=== PATIENT | female | born 1970 | race Caucasian/White ===

== ENCOUNTER 2017-10-19 18:09 | Emergency (ER) | payer BC ==
[2017-10-19 18:55] LABS: Absolute Lymphocytes (CBC) 3.6 K/uL (0.7-4.9); Absolute Monocytes 0.6 K/uL (0.1-1.3); Absolute Neutrophil 4.9 K/uL (1.8-8.0); Basophils % 0.3 % (0-1.3); Eosinophils % 3.3 % (0-4.4); Hematocrit 43.8 % (36.0-45.0); Lymphocytes % 37.6 % (15.3-44.8); MCH 27.8 pg (27.0-35.0); MCV 82.2 fL (80-100); MPV 10.1 fL (7.6-11.3); Monocytes % 6.8 % (3.3-12.3); RBC Red Blood Cell Count 5.32 M/uL (3.86-4.86)
[2017-10-19 18:59] LABS: Protime INR 1.04
[2017-10-19 19:05] LABS: Bicarbonate 28 mEq/L (21-31); Glucose Level 185 mg/dL (65-120); Potassium 3.7 mEq/L (3.6-5.0); Sodium Level 133 mEq/L (135-145)
[2017-10-19 19:11] LABS: ALT/SGPT 68 IU/L (10-60); AST/SGOT 47 IU/L (10-42); Albumin 4.2 g/dL (3.2-5.5); Alkaline Phosphatase 60 IU/L (42-121); BUN Blood Urea Nitrogen 10 mg/dL (6-20); Bilirubin Direct 0.2 mg/dL (0-0.2); Bilirubin Total 1.1 mg/dL (0.3-1.2); Creatine Phosphokinase 91 IU/L (22-269); Magnesium 1.7 mg/dL (1.8-2.5); Protein, Total 7.5 g/dL (6.0-8.3)
[2017-10-19 19:15] LABS: CKMB Creatine Kinase MB 1.4 ng/ml (0.3-4.0)
--- NOTE | 2017-10-19 19:21 | RAD REPORT ---
EXAM DESCRIPTION: RAD - Chest Single View - 10/19/2017 6:53 pm CLINICAL HISTORY: Chest pain. COMPARISON: 12/18/2016 FINDINGS: Portable technique limits examination quality. The lungs are grossly clear. The heart is normal in size. No displaced fractures. IMPRESSION: No acute intrathoracic process suspected.
[2017-10-19 19:22] LABS: Urine Blood NEGATIVE (NEG); Urine Glucose NEGATIVE (NEG); Urine Protein NEGATIVE (NEG); Urine Specific Gravity <1.005 (1.005-1.030)
[2017-10-19] MEDS ORDERED: FENTANYL CITR 100 MCG/2 ML ONE (19:46)
[2017-10-19] MEDS ORDERED: MAGNESIUM SULFATE 1 gm IVPB 1 GM/100 ML BAG IV ONE (19:46)
[2017-10-19] MEDS ORDERED: ONDANSETRON 4 MG/2 ML VIAL ONE (19:46)
--- NOTE | 2017-10-19 21:21 | EDPHYS ---
Physician Documentation [facility] Name: Chantal Stout Age: 47 yrs Sex: Female : 1970 Arrival Date: 10/19/2017 Time: 18:11 Bed 15 Private MD: ED Physician Kirk Escudero HPI: 10/19 19:47 This 47 yrs old Female presents to ER via Ambulatory with complaints of Chest jr8 Pain. 19:47 The patient or guardian reports chest pain that is located primarily in the substernal jr8 area. Onset: acutely, today. The pain radiates to the right arm. Associated signs and symptoms: The patient has no apparent associated signs or symptoms, Pertinent positives: dizziness, nausea. The chest pain is described as a pressure. Duration: The patient or guardian reports a single episode. Modifying factors: The symptoms are alleviated by nothing. the symptoms are aggravated by nothing. Severity of pain: At its worst the pain was moderate in the emergency department the pain is unchanged. The patient has not experienced similar symptoms in the past. The patient has not recently seen a physician. Patient stated that she was getting out of her chair when she had sudden sharp pain to chest that radiated down arm. Shortly after felt slightly dizzy and had headache. Denied weakness . Historical: - Allergies: 18:17 Bactrim; hb 18:17 Cephalexin; hb 18:17 Codeine; hb 18:17 Iodine; hb 18:17 Levaquin; hb - Home Meds: 18:17 levothyroxine 88 mcg tab once daily [Active]; metformin 750 mg Oral Tb24 twice a day hb [Active]; ProAir HFA 90 mcg/actuation inhalation HFAA 2 puffs every 4-6 hours [Active]; valsartan-hydrochlorothiazide 80-12.5 mg Oral tab 1 tab [Active]; - PMHx: 18:17 Diabetes - NIDDM; Hypertension; Asthma; Hypothyroidism; hb - PSHx: 18:17 Tonsillectomy; hb - Immunization history:: Adult Immunizations up to date. - Social history:: Smoking status: Patient uses tobacco products, smokes one-half pack cigarettes per day. ROS: 19:47 Eyes: Negative for injury, pain, redness, and discharge, ENT: Negative for injury, jr8 pain, and discharge, Neck: Negative for injury, pain, and swelling, Respiratory: Negative for shortness of breath, cough, wheezing, and pleuritic chest pain, Abdomen/GI: Negative for abdominal pain, vomiting, diarrhea, and constipation, Back: Negative for injury and pain, MS/Extremity: Negative for injury and deformity, Skin: Negative for injury, rash, and discoloration, Neuro: Negative for weakness, numbness, tingling, and seizure. Positive for headache 19:47 Cardiovascular: Positive for chest pain, Negative for edema, orthopnea, palpitations, paroxysmal nocturnal dyspnea. Exam: 19:47 Head/Face: Normocephalic, atraumatic. Eyes: Pupils equal round and reactive to light, jr8 extra-ocular motions intact. Lids and lashes normal. Conjunctiva and sclera are non-icteric and not injected. Cornea within normal limits. Periorbital areas with no swelling, redness, or edema. ENT: Nares patent. No nasal discharge, no septal abnormalities noted. Tympanic membranes are normal and external auditory canals are clear. Oropharynx with no redness, swelling, or masses, exudates, or evidence of obstruction, uvula midline. Mucous membranes moist. Neck: Trachea midline, no thyromegaly or masses palpated, and no cervical lymphadenopathy. Supple, full range of motion without nuchal rigidity, or vertebral point tenderness. No Meningismus. Chest/axilla: Normal chest wall appearance and motion. Nontender with no deformity. No lesions are appreciated. Cardiovascular: Regular rate and rhythm with a normal S1 and S2. No gallops, murmurs, or rubs. Normal PMI, no JVD. No pulse deficits. Respiratory: Lungs have equal breath sounds bilaterally, clear to auscultation and percussion. No rales, rhonchi or wheezes noted. No increased work of breathing, no retractions or nasal flaring. Abdomen/GI: Soft, non-tender, with normal bowel sounds. No distension or tympany. No guarding or rebound. No evidence of tenderness throughout. Back: No spinal tenderness. No costovertebral tenderness. Full range of motion. Skin: Warm, dry with normal turgor. Normal color with no rashes, no lesions, and no evidence of cellulitis. MS/ Extremity: Pulses equal, no cyanosis. Neurovascular intact. Full, normal range of motion. Neuro: Awake and alert, GCS 15, oriented to person, place, time, and situation. Cranial nerves II-XII grossly intact. Motor strength 5/5 in all extremities. Sensory grossly intact. Cerebellar exam normal. Normal gait. Vital Signs: 18:16 BP 161 / 93; Pulse 79; Resp 18; Temp 98; Pulse Ox 100% on R/A; Pain 3/10; hb 19:41 BP 147 / 93; Pulse 80; Resp 16; Pulse Ox 97% on R/A; aa1 20:34 BP 128 / 88; Pulse 70; Resp 18; Pulse Ox 96% on R/A; Pain 0/10; aa1 MDM: 18:42 Patient medically screened. jr8 21:19 HEART Score: History: Moderately Suspicious (1), ECG: Normal (0), Age: > 45 and < 65 jr8 years (1), Risk Factors: > or = 3 Risk factors for atherosclerotic disease (2), [Hypertension] [DM] [Active Smoker] [Obesity] Troponin: < or = 1 x Normal Limit (0), Total Score =. The patient was not given aspirin in the Emergency Department. Patient reports taking aspirin within the past 24 hours. Data reviewed: vital signs, nurses notes, lab test result(s), EKG, radiologic studies, plain films. Data interpreted: Pulse oximetry: on room air is 96 %. Interpretation: normal. Counseling: I had a detailed discussion with the patient and/or guardian regarding: the historical points, exam findings, and any diagnostic results supporting the discharge/admit diagnosis, lab results, radiology results, the need for outpatient follow up, a director of sustainability, to return to the emergency department if symptoms worsen or persist or if there are any questions or concerns that arise at home. ED course: Patient with stress test about 1 year ago. Normal results . 10/19 18:39 Order name: Basic Metabolic Panel; Complete Time: 19:19 ss 10/19 18:39 Order name: BNP; Complete Time: 19:33 ss 10/19 18:39 Order name: CBC with Diff; Complete Time: 19:00 ss 10/19 18:39 Order name: Ckmb; Complete Time: 19:19 ss 10/19 18:39 Order name: CPK; Complete Time: 19:19 ss 10/19 18:39 Order name: LFT's; Complete Time: 19:10/19 18:39 Order name: Magnesium; Complete Time: 19:19 ss 10/19 18:39 Order name: PT-INR; Complete Time: 19:09 ss 10/19 18:39 Order name: Ptt, Activated; Complete Time: 19:09 ss 10/19 18:39 Order name: Troponin (emerg Dept Use Only); Complete Time: 19:19 ss 10/19 18:39 Order name: XRAY Chest (1 view); Complete Time: 19:23 ss 10/19 19:21 Order name: Urine Dipstick--Ancillary (enter results); Complete Time: 19:23 oe 10/19 20:41 Order name: Troponin (emerg Dept Use Only); Complete Time: 21:15 aa1 10/19 18:39 Order name: Urine Test (obtain specimen); Complete Time: 19:18 ss 10/19 18:39 Order name: EKG; Complete Time: 18:39 ss 10/19 18:39 Order name: Cardiac monitoring; Complete Time: 18:42 ss 10/19 18:39 Order name: EKG - Nurse/Tech; Complete Time: 18:42 ss 10/19 18:39 Order name: IV Saline Lock; Complete Time: 18:42 ss 10/19 18:39 Order name: Labs collected and sent; Complete Time: 18:42 ss 10/19 18:39 Order name: O2 Per Protocol; Complete Time: 18:42 ss 10/19 18:39 Order name: O2 Sat Monitoring; Complete Time: 18:42 ss 10/19 18:39 Order name: Urine Dipstick-Ancillary (obtain specimen); Complete Time: 19:18 ss Administered Medications: 19:35 Drug: Magnesium Sulfate 1 grams Route: IVPB; Infused Over: 1 hrs; Site: left aa1 antecubital; 20:42 Follow up: IV Status: Completed infusion aa1 19:36 Drug: Zofran 4 mg Route: IVP; Site: left antecubital; aa1 20:42 Follow up: Response: No adverse reaction; Nausea is decreased aa1 19:38 Drug: fentaNYL (PF) 50 mcg Route: IVP; Site: left antecubital; aa1 20:42 Follow up: Response: No adverse reaction; Pain is decreased aa1 Disposition: 10/19/17 21:21 Discharged to Home. Impression: Chest pain, unspecified. - Condition is Stable. - Discharge Instructions: Nonspecific Chest Pain, Aspirin and Your Heart. - Medication Reconciliation Form, Thank You Letter, Antibiotic Education, Prescription Opioid Use form. - Follow up: Private Physician; When: 2 - 3 days; Reason: Recheck today's complaints, Continuance of care, Re-evaluation by your physician. - Problem is new. - Symptoms have improved. Addendum: 10/21/2017 06:58 Co-signature as Attending Physician, Kirk Escudero MD I agree with the assessment and k dr plan of care. Signatures: Dispatcher [employer] EDMS Candy Garcia RN RN aa1 Kirk Escudero MD MD [facility] Alexa Moses RN RN Aidan Fuentes PA PA jr8 Mady Schuler, RN RN
--- NOTE | 2017-10-19 21:21 | ER ---
Nurse's Notes [facility] Name: Chantal Stout Age: 47 yrs Sex: Female : 1970 Arrival Date: 10/19/2017 Time: 18:11 Bed 15 Private MD: Diagnosis: Chest pain, unspecified Presentation: 10/19 18:15 Presenting complaint: Patient states: Sudden sharp chest pain while seated in recliner, hb then sudden severe headache upon standing. Headache feels like she was hit over the head. Denies headache hx. Denies SOB/nausea. Transition of care: patient was not received from another setting of care. Onset of symptoms was October 19, 2017 at 17:15. Care prior to arrival: None. 18:15 Method Of Arrival: Ambulatory hb 18:15 Acuity: NOÉ 3 hb Historical: - Allergies: 18:17 Bactrim; hb 18:17 Cephalexin; hb 18:17 Codeine; hb 18:17 Iodine; hb 18:17 Levaquin; hb - Home Meds: 18:17 levothyroxine 88 mcg tab once daily [Active]; metformin 750 mg Oral Tb24 twice a day hb [Active]; ProAir HFA 90 mcg/actuation inhalation HFAA 2 puffs every 4-6 hours [Active]; valsartan-hydrochlorothiazide 80-12.5 mg Oral tab 1 tab [Active]; - PMHx: 18:17 Diabetes - NIDDM; Hypertension; Asthma; Hypothyroidism; hb - PSHx: 18:17 Tonsillectomy; hb - Immunization history:: Adult Immunizations up to date. - Social history:: Smoking status: Patient uses tobacco products, smokes one-half pack cigarettes per day. Screenin:05 Abuse screen: Denies threats or abuse. Denies injuries from another. Nutritional aa1 screening: No deficits noted. Tuberculosis screening: No symptoms or risk factors identified. Fall Risk None identified. Assessment: 19:05 General: Appears in no apparent distress. comfortable, obese, Behavior is calm, aa1 cooperative, appropriate for age. Pain: Complains of pain in chest Pain does not radiate. Pain currently is 6 out of 10 on a pain scale. Quality of pain is described as sharp, Pain began suddenly, Is intermittent. Neuro: Level of Consciousness is awake, alert, obeys commands, Oriented to person, place, time, situation, Moves all extremities. Full function Speech is normal, Facial symmetry appears normal, Pupils are PERRLA, Reports headache. Cardiovascular: Heart tones S1 S2 present Capillary refill < 3 seconds Patient's skin is warm and dry. Rhythm is regular. Respiratory: Airway is patent Respiratory effort is even, unlabored, Respiratory pattern is regular, symmetrical. GI: No signs and/or symptoms were reported involving the gastrointestinal system. : No signs and/or symptoms were reported regarding the genitourinary system. EENT: No signs and/or symptoms were reported regarding the EENT system. Derm: Skin is intact, is healthy with good turgor, Skin is pink, warm \T\ dry. Musculoskeletal: Circulation, motion, and sensation intact. Capillary refill < 3 seconds. 19:41 Reassessment: Patient appears in no apparent distress at this time. Patient and/or aa1 family updated on plan of care and expected duration. Pain level reassessed. Patient is alert, oriented x 3, equal unlabored respirations, skin warm/dry/pink. Awaiting provider reassessment. 20:34 Reassessment: Patient appears in no apparent distress at this time. Patient and/or aa1 family updated on plan of care and expected duration. Pain level reassessed. Patient is alert, oriented x 3, equal unlabored respirations, skin warm/dry/pink. Awaiting repeat labs Patient denies pain at this time. Patient states feeling better. Patient states symptoms have improved. 21:31 Reassessment: Patient appears in no apparent distress at this time. Patient is alert, aa1 oriented x 3, equal unlabored respirations, skin warm/dry/pink. Discussed d/c \T\ f/u instructions with pt and spouse; denies questions or concerns at this time. Vital Signs: 18:16 BP 161 / 93; Pulse 79; Resp 18; Temp 98; Pulse Ox 100% on R/A; Pain 3/10; hb 19:41 BP 147 / 93; Pulse 80; Resp 16; Pulse Ox 97% on R/A; aa1 20:34 BP 128 / 88; Pulse 70; Resp 18; Pulse Ox 96% on R/A; Pain 0/10; aa1 ED Course: 18:11 Patient arrived in ED. mr 18:16 Triage completed. hb 18:17 Arm band placed on left wrist. hb 18:28 Andrew, Bhargav, ALCIDES is Primary Nurse. hj 18:40 Initial lab(s) drawn, by ma, sent to lab. Inserted saline lock: 22 gauge in left mh5 forearm, using aseptic technique. Blood collected. 18:41 EKG done, by ED staff, reviewed by Kirk Escudero MD. [facility] 18:42 Aidan Fuentes PA is PHCP. jr8 18:42 Kirk Escudero MD is Attending Physician. [facility] 18:51 X-ray completed. Portable x-ray completed in exam room. Patient tolerated procedure bb2 well. 18:51 XRAY Chest (1 view) In Process Unspecified. EDMS 19:00 Report given to ALCIDES Gupta. 19:05 Patient has correct armband on for positive identification. Bed in low position. Call aa1 light in reach. Side rails up X2. quality assurance monitor chassis on. Pulse ox on. NIBP on. 19:05 Patient maintains SpO2 saturation greater than 95% on room air. aa1 19:13 Urine collected: clean catch specimen, clear. [facility] 20:50 Repeat lab(s) drawn. by ED staff, sent to lab. aa1 21:31 No provider procedures requiring assistance completed. IV discontinued, intact, aa1 bleeding controlled, No redness/swelling at site. Pressure dressing applied. Administered Medications: 19:35 Drug: Magnesium Sulfate 1 grams Route: IVPB; Infused Over: 1 hrs; Site: left aa1 antecubital; 20:42 Follow up: IV Status: Completed infusion aa1 19:36 Drug: Zofran 4 mg Route: IVP; Site: left antecubital; aa1 20:42 Follow up: Response: No adverse reaction; Nausea is decreased aa1 19:38 Drug: fentaNYL (PF) 50 mcg Route: IVP; Site: left antecubital; aa1 20:42 Follow up: Response: No adverse reaction; Pain is decreased aa1 Outcome: 21:21 Discharge ordered by . jrHilton 21:31 Discharged to home via wheelchair, with significant other. aa1 21:31 Condition: good 21:31 Discharge instructions given to patient, significant other, Instructed on discharge instructions, follow up and referral plans. Demonstrated understanding of instructions, follow-up care. 21:32 Patient left the ED. aa1 Signatures: Dispatcher [employer] EDMS Candy Garcia RN RN aa1 Devika Lucas mr Aidan Fuentes PA PA jr8 Bhargav Morales RN RN hj Baxter, Heather, RN RN Devika Moore 5 Malka Rodriguez 2 Corrections: (The following items were deleted from the chart) 18:16 18:15 Presenting complaint: Patient states: Sudden sharp chest pain while seated in hb recliner, then sudden sever headache upon standing. Headache feels like she was hit over the head. hb 18:17 18:15 Acuity: NOÉ 2 hb hb 18:18 18:15 Presenting complaint: Patient states: Sudden sharp chest pain while seated in hb recliner, then sudden sever headache upon standing. Headache feels like she was hit over the head. Denies headache hx hb 18:18 18:16 Pulse 77bpm; hb hb
[2017-10-19 21:46] VITALS: TEMP 98
[2017-10-19 21:49] VITALS: BP 128/88; O2SAT 96
--- NOTE | 2017-10-21 12:53 | EKG ---
Test Date: 2017-10-19 Test Time: 18:37:26 Cell Inspector: CATY MEASUREMENT RESULTS: Intervals: Rate: 73 MO: 180 QRSD: 84 QT: 400 QTc: 440 Ophir: P: 61 MO: 180 QRS: 23 T: 18 INTERPRETIVE STATEMENTS: Normal sinus rhythm Normal ECG Compared to ECG 02/25/2017 19:57:41 No significant changes Electronically Signed On 10-21-17 12:52:08 CDT by Raymond Torres
== END 2017-10-19 21:32 | disposition home or self-care (01) ==
LOC: ER 18:09
DX: R07.9 Chest pain, unspecified (principal); I10 Essential (primary) hypertension; F17.210 Nicotine dependence, cigarettes, uncomplicated; E11.9 Type 2 diabetes mellitus without complications; E03.9 Hypothyroidism, unspecified; Z88.1 Allergy status to other antibiotic agents; Z88.3 Allergy status to other anti-infective agents; Z88.5 Allergy status to narcotic agent; Z91.048 Other nonmedicinal substance allergy status
CPT/HCPCS: 36415; 71045; 80048; 80076; 81003; 82550; 82553; 83735; 83880; 84484; 85025; 85610; 85730; 93005; 96365; 96375; 99285; J2405; J3010; J3475

== ENCOUNTER 2017-12-07 06:36 | Emergency (ER) | payer BC ==
[2017-12-07] MEDS ORDERED: MORPHINE 4 MG/ML SYR ONE (07:06)
[2017-12-07] MEDS ORDERED: NA CHLORIDE 0.9% 1,000 ML ONE (07:07)
[2017-12-07] MEDS ORDERED: ONDANSETRON 4 MG/2 ML VIAL ONE ×2 (07:07→10:11)
[2017-12-07 07:23] LABS: Absolute Lymphocytes (CBC) 2.4 K/uL (0.7-4.9); Absolute Monocytes 0.5 K/uL (0.1-1.3); Absolute Neutrophil 4.4 K/uL (1.8-8.0); Eosinophils % 4.1 % (0-4.4); Hematocrit 44.5 % (36.0-45.0); Lymphocytes % 30.8 % (15.3-44.8); MCH 28.1 pg (27.0-35.0); MCV 82.7 fL (80-100); MPV 10.4 fL (7.6-11.3); Monocytes % 6.1 % (3.3-12.3); RBC Red Blood Cell Count 5.38 M/uL (3.86-4.86)
[2017-12-07 07:27] LABS: Bicarbonate 26 mEq/L (21-31); Glucose Level 178 mg/dL (65-120); Lipase 30 U/L (22-51); Potassium 3.9 mEq/L (3.6-5.0); Sodium Level 137 mEq/L (135-145)
[2017-12-07 07:33] LABS: ALT/SGPT 83 IU/L (10-60); AST/SGOT 61 IU/L (10-42); Albumin 4.2 g/dL (3.2-5.5); Alkaline Phosphatase 57 IU/L (42-121); Amylase Level 48 U/L (28-100); BUN Blood Urea Nitrogen 10 mg/dL (6-20); Bilirubin Direct 0.2 mg/dL (0-0.2); Protein, Total 7.9 g/dL (6.0-8.3)
--- NOTE | 2017-12-07 09:21 | RAD REPORT ---
EXAM DESCRIPTION: US - Abdomen Exam Limited - 12/07/2017 7:26 am CLINICAL HISTORY: Abdominal pain. COMPARISON: 2016 FINDINGS: The gallbladder wall is not thickened. A gallstone is not seen. The biliary tree is normal caliber. IMPRESSION: Unremarkable gallbladder ultrasound.
[2017-12-07] MEDS ORDERED: PROMETHAZINE 25 MG/ML VIAL ONE (10:07)
--- NOTE | 2017-12-07 10:19 | RAD REPORT ---
EXAM DESCRIPTION: CT - Abdomen Pelvis Wo Contrast - 12/07/2017 10:00 am CLINICAL HISTORY: Abdominal pain. COMPARISON: 03/31/2017 TECHNIQUE: CT imaging of the abdomen and pelvis was performed without contrast. Solid organ, bowel a nd vascular assessment is limited due to lack of IV and oral contrast. All CT scans are performed using dose optimization technique as appropriate and may include automated exposure control or mA/KV adjustment according to patient size. FINDINGS: The lower lung watkins are clear. The liver is prominent in size. The spleen, pancreas, adrenal glands and kidneys are within normal li mits for a limited non-contrast examination. No bowel obstruction, free air, free fluid or abscess. The appendix is normal. The osseous structures are within normal limits. IMPRESSION: No acute intra-abdominal or pelvic findings. [id number] hepatomegaly. A limited non-contrast examination was performed as detailed.
--- NOTE | 2017-12-07 10:24 | EDPHYS ---
Physician Documentation [facility] Name: Chantal Stout Age: 47 yrs Sex: Female : 1970 Arrival Date: 12/07/2017 Time: 06:37 Bed 14 Private MD: ED Physician Marco Vargas HPI: 12/07 07:45 This 47 yrs old Female presents to ER via Ambulatory with complaints of pm1 Abdominal pain. 07:45 The patient presents with abdominal pain in the right upper quadrant. Onset: The pm1 symptoms/episode began/occurred 3 day(s) ago. The symptoms radiate to right back. Associated signs and symptoms: Pertinent positives: diarrhea, nausea, Pertinent negatives: chest pain, dysuria, fever, shortness of breath, vomiting. The symptoms are described as burning, sharp. Modifying factors: The symptoms are alleviated by nothing, the symptoms are aggravated by food, spicy food. Severity of pain: in the emergency department the pain is actually worse. The patient has not experienced similar symptoms in the past. The patient has not recently seen a physician. 3 days of right upper quadrant that got worse yesterday. Patient with onset of diarrhea yesterday. 5 episodes of diarrhea yesterday with 1 episode this AM. 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 - Social history:: Smoking status: Patient/guardian denies using tobacco, Patient/guardian denies using alcohol. ROS: 08:00 Constitutional: Negative for fever, chills, and weight loss, Eyes: Negative for injury, pm1 pain, redness, and discharge, ENT: Negative for injury, pain, and discharge, Neck: Negative for injury, pain, and swelling, Cardiovascular: Negative for chest pain, palpitations, and edema, Respiratory: Negative for shortness of breath, cough, wheezing, and pleuritic chest pain. 08:00 Back: Negative for injury and pain, : Negative for injury, bleeding, discharge, and swelling, MS/Extremity: Negative for injury and deformity, Skin: Negative for injury, rash, and discoloration, Neuro: Negative for headache, weakness, numbness, tingling, and seizure. 08:00 Abdomen/GI: Positive for abdominal pain, nausea, vomiting, and diarrhea, Negative for black/tarry stool. Exam: 08:00 Constitutional: This is a well developed, well nourished patient who is awake, alert, pm1 and in no acute distress. Head/Face: Normocephalic, atraumatic. Eyes: Pupils equal round and reactive to light, extra-ocular motions intact. Lids and lashes normal. Conjunctiva and sclera are non-icteric and not injected. Cornea within normal limits. Periorbital areas with no swelling, redness, or edema. ENT: Nares patent. No nasal discharge, no septal abnormalities noted. Tympanic membranes are normal and external auditory canals are clear. Oropharynx with no redness, swelling, or masses, exudates, or evidence of obstruction, uvula midline. Mucous membranes moist. Neck: Trachea midline, no thyromegaly or masses palpated, and no cervical lymphadenopathy. Supple, full range of motion without nuchal rigidity, or vertebral point tenderness. No Meningismus. Chest/axilla: Normal chest wall appearance and motion. Nontender with no deformity. No lesions are appreciated. Cardiovascular: Regular rate and rhythm with a normal S1 and S2. No gallops, murmurs, or rubs. Normal PMI, no JVD. No pulse deficits. Respiratory: Lungs have equal breath sounds bilaterally, clear to auscultation and percussion. No rales, rhonchi or wheezes noted. No increased work of breathing, no retractions or nasal flaring. 08:00 Back: No spinal tenderness. No costovertebral tenderness. Full range of motion. Skin: Warm, dry with normal turgor. Normal color with no rashes, no lesions, and no evidence of cellulitis. MS/ Extremity: Pulses equal, no cyanosis. Neurovascular intact. Full, normal range of motion. Neuro: Awake and alert, GCS 15, oriented to person, place, time, and situation. Cranial nerves II-XII grossly intact. Motor strength 5/5 in all extremities. Sensory grossly intact. Cerebellar exam normal. Normal gait. 08:00 Abdomen/GI: Inspection: abdomen appears normal, Bowel sounds: normal, Palpation: soft, mild abdominal tenderness, in the epigastric area. 08:00 Abdomen/GI: Indicators: McBurney's point is not tender, Dwyer's sign is negative. Vital Signs: 06:40 BP 133 / 88; Pulse 73; Resp 18; Temp 98(O); Pulse Ox 97% on R/A; Weight 120.2 kg; ea Height 5 ft. 4 in. (162.56 cm); Pain 4/10; 07:00 BP 107 / 64; Pulse 75; Resp 18; Pulse Ox 100% on R/A; hj 08:00 BP 102 / 75; Pulse 74; Resp 18; Pulse Ox 100% on R/A; hj 08:58 BP 106 / 78; Pulse 79; Resp 18; Pulse Ox 100% on R/A; hj 06:40 Body Mass Index 45.49 (120.20 kg, 162.56 cm) ea MDM: 06:44 Patient medically screened. pm1 10:22 Data reviewed: vital signs. Data interpreted: Pulse oximetry: on room air is 100 %. pm1 Interpretation: normal. 10:22 Counseling: I had a detailed discussion with the patient and/or guardian regarding: the pm1 historical points, exam findings, and any diagnostic results supporting the discharge/admit diagnosis, lab results, radiology results, the need for outpatient follow up, for definitive care, a sole molder, to return to the emergency department if symptoms worsen or persist or if there are any questions or concerns that arise at home. 12/07 06:52 Order name: Amylase, Serum; Complete Time: 07:40 pm1 12/07 06:52 Order name: Basic Metabolic Panel; Complete Time: 07:40 pm1 12/07 06:52 Order name: CBC with Diff; Complete Time: 07:28 pm1 12/07 06:52 Order name: Creatinine for Radiology; Complete Time: 07:28 pm1 12/07 06:52 Order name: Hepatic Function; Complete Time: 07:40 pm1 12/07 06:52 Order name: Lipase; Complete Time: 07:40 pm1 12/07 06:52 Order name: US Abdomen Limited; Complete Time: 10:12 pm1 12/07 09:59 Order name: Abdomen ; Complete Time: 10:20 EDMS 12/07 06:52 Order name: IV Saline Lock; Complete Time: 07:10 pm1 12/07 06:52 Order name: Labs collected and sent; Complete Time: 07:10 pm1 Administered Medications: 07:05 Drug: NS 0.9% 1000 ml Route: IV; Rate: 1000 ml; Site: left forearm; hj 07:05 Drug: Zofran 4 mg Route: IVP; Site: left forearm; hj 07:09 Follow up: Response: No adverse reaction hj 10:23 Drug: Pepcid 20 mg Route: IVP; Site: left forearm; hj 10:40 Follow up: Response: No adverse reaction hj 10:31 Not Given (Patient Refused): GI Cocktail without - (Maalox Suspension 30 ml, hj Lidocaine Liquid 2 % 15 ml) PO once 10:40 Not Given (Patient Refused): morphine 4 mg IVP once hj Point of Care Testing: Blood Glucose: 10:09 Blood Glucose: 137 mg/dL; rv Ranges: Critical Glucose Levels:Adult <50 mg/dl or >400 mg/dl <40 mg/dl or >180 mg/dl Disposition: 12/07/17 10:24 Discharged to Home. Impression: Unspecified abdominal pain, Diarrhea, unspecified. - Condition is Stable. - Discharge Instructions: Abdominal Pain, Adult, Food Choices to Help Relieve Diarrhea, Adult, Diarrhea, Nausea and Vomiting, Viral Gastroenteritis. - Prescriptions for Bentyl 20 mg Oral Tablet - take 1 tablet by ORAL route every 6 hours As needed; 20 tablet. Zofran 4 mg Oral Tablet - take 1 tablet by ORAL route every 12 hours As needed; 20 tablet. - Medication Reconciliation Form, Thank You Letter, Antibiotic Education form. - Follow up: Emergency Department; When: As needed; Reason: Worsening of condition. Follow up: Private Physician; When: 2 - 3 days; Reason: Recheck today's complaints, Continuance of care, Re-evaluation by your physician. - Problem is new. - Symptoms have improved. Addendum: 12/10/2017 07:39 Co-signature as Attending Physician, Marco Vargas MD I agree with the assessment and c gutierrez plan of care. Signatures: Dispatcher [employer] [facility] Marco Vargas MD MD cha Calderon, Audri, RN RN aa5 Bhargav Morales RN RN Jonatan Sanders, STORM DOOR MAKER STORM DOOR MAKER pm1 Gabbie Bay RN RN logan Corrections: (The following items were deleted from the chart) 12/07 09:59 08:04 Abdomen Pelvis W Con+CT.RAD.BRZ ordered. [facility] 11:02 10:24 12/07/2017 10:24 Discharged to Home. Impression: Unspecified abdominal pain; aa5 Diarrhea, unspecified. Condition is Stable. Forms are Medication Reconciliation Form, Thank You Letter, Antibiotic Education, Prescription Opioid Use. Follow up: Emergency Department; When: As needed; Reason: Worsening of condition. Follow up: Private Physician; When: 2 - 3 days; Reason: Recheck today's complaints, Continuance of care, Re-evaluation by your physician. Problem is new. Symptoms have improved. pm1
--- NOTE | 2017-12-07 10:24 | ER ---
Nurse's Notes [facility] Name: Chantal Stout Age: 47 yrs Sex: Female : 1970 Arrival Date: 12/07/2017 Time: 06:37 Bed 14 Private MD: Diagnosis: Unspecified abdominal pain;Diarrhea, unspecified Presentation: 12/07 06:40 Presenting complaint: Patient states: " I started having gall bladder pain 3 days ago ea and yesterday it started to get worse" Pt reports nausea, belching, gas and diarrhea that started yesterday at 10 am. Transition of care: patient was not received from another setting of care. Onset of symptoms was December 07, 2017. Initial Sepsis Screen: Does the patient meet any 2 criteria? No. Patient's initial sepsis screen is negative. Does the patient have a suspected source of infection? No. Patient's initial sepsis screen is negative. Care prior to arrival: None. 06:40 Method Of Arrival: Ambulatory ea 06:40 Acuity: NOÉ 3 ea Triage Assessment: 06:40 General: Appears uncomfortable, Behavior is calm, cooperative, appropriate for age. ea Pain: Complains of pain in right upper quadrant. 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 - Social history:: Smoking status: Patient/guardian denies using tobacco, Patient/guardian denies using alcohol. Screenin:52 Abuse screen: Denies threats or abuse. Nutritional screening: No deficits noted. ea Tuberculosis screening: No symptoms or risk factors identified. Fall Risk None identified. Assessment: 07:12 General: Appears in no apparent distress. uncomfortable, obese, Behavior is calm, hj cooperative, appropriate for age. Pain: Complains of pain in abdomen and right upper quadrant. Neuro: Level of Consciousness is awake, alert, obeys commands, Oriented to person, place, time, situation, Appropriate for age. Cardiovascular: Capillary refill < 3 seconds Patient's skin is warm and dry. Respiratory: Airway is patent Respiratory effort is even, unlabored, Respiratory pattern is regular, symmetrical. GI: Abdomen is non-distended, obese. : No signs and/or symptoms were reported regarding the genitourinary system. EENT: No signs and/or symptoms were reported regarding the EENT system. Derm: No signs and/or symptoms reported regarding the dermatologic system. Musculoskeletal: No signs and/or symptoms reported regarding the musculoskeletal system. 08:57 Reassessment: Patient and/or family updated on plan of care and expected duration. Pain hj level reassessed. Patient is alert, oriented x 3, equal unlabored respirations, skin warm/dry/pink. awaiting CT;. Vital Signs: 06:40 BP 133 / 88; Pulse 73; Resp 18; Temp 98(O); Pulse Ox 97% on R/A; Weight 120.2 kg; ea Height 5 ft. 4 in. (162.56 cm); Pain 4/10; 07:00 BP 107 / 64; Pulse 75; Resp 18; Pulse Ox 100% on R/A; hj 08:00 BP 102 / 75; Pulse 74; Resp 18; Pulse Ox 100% on R/A; hj 08:58 BP 106 / 78; Pulse 79; Resp 18; Pulse Ox 100% on R/A; hj 06:40 Body Mass Index 45.49 (120.20 kg, 162.56 cm) ea ED Course: 06:37 Patient arrived in ED. ds1 06:40 Patient has correct armband on for positive identification. Placed in gown. Bed in low ea position. Call light in reach. Side rails up X 1. 06:40 Patient placed in an exam room, on a stretcher, on pulse oximetry. ea 06:42 Jonatan Chao NP is PHCP. pm1 06:42 Marco Vargas MD is Attending Physician. pm1 06:51 Triage completed. ea 07:02 Andrew, Bhargav, RN is Primary Nurse. hj 07:13 Initial lab(s) drawn, by ED staff, sent to lab. Inserted saline lock: 22 gauge in left hj forearm, using aseptic technique. Blood collected. 07:18 Patient taken to ultrasound. via wheelchair. aa4 07:26 US Abdomen Limited In Process Unspecified. EDMS 09:59 CT completed. Patient tolerated procedure well. Patient moved to CT via wheelchair. Patient moved back from CT. 10:01 Abdomen In Process Unspecified. EDMS 11:02 No provider procedures requiring assistance completed. IV discontinued, intact, hj bleeding controlled, No redness/swelling at site. Pressure dressing applied. Administered Medications: 07:05 Drug: NS 0.9% 1000 ml Route: IV; Rate: 1000 ml; Site: left forearm; hj 07:05 Drug: Zofran 4 mg Route: IVP; Site: left forearm; hj 07:09 Follow up: Response: No adverse reaction hj 10:23 Drug: Pepcid 20 mg Route: IVP; Site: left forearm; hj 10:40 Follow up: Response: No adverse reaction hj 10:31 Not Given (Patient Refused): GI Cocktail without - (Maalox Suspension 30 ml, hj Lidocaine Liquid 2 % 15 ml) PO once 10:40 Not Given (Patient Refused): morphine 4 mg IVP once hj Point of Care Testing: Blood Glucose: 10:09 Blood Glucose: 137 mg/dL; rv Ranges: Outcome: 10:24 Discharge ordered by MD. pm1 11:02 Patient left the ED. aa5 11:02 Discharged to home ambulatory. hj 11:02 Condition: stable 11:02 Discharge instructions given to patient, Instructed on discharge instructions, follow up and referral plans. medication usage, Demonstrated understanding of instructions, follow-up care, medications, Prescriptions given X 2. Signatures: Dispatcher [employer] [facility] Mikayla Maguire ds1 Tamia Ramirez aa4 Brittany Kong RN RN aa5 Fiona Hobbs Henry, ALCIDES MCGRATH Jonatan Chao, STEFANIE DATABASE SOFTWARE TECHNICIAN pm1 Gabbie Bay RN RN ea Vicente, Ronaldo, RN RN rv
[2017-12-07] MEDS ORDERED: FAMOTIDINE 20 MG/2 ML VIAL IV ONE (10:29)
[2017-12-07] MEDS ORDERED: LIDOCAINE VISCOUS 2% SOLN 15 ML UDC ONE (10:29)
[2017-12-07] MEDS ORDERED: MAGNE/ALUM HYDROXD 30 ML UCUP ONE (10:29)
[2017-12-07 11:06] VITALS: TEMP 98
[2017-12-07 11:07] VITALS: O2SAT 100
[2017-12-07 11:10] VITALS: BP 106/78
== END 2017-12-07 11:02 | disposition home or self-care (01) ==
LOC: ER 06:36
DX: R19.7 Diarrhea, unspecified (principal); I10 Essential (primary) hypertension; E11.9 Type 2 diabetes mellitus without complications; J45.909 Unspecified asthma, uncomplicated; Z88.1 Allergy status to other antibiotic agents; Z88.3 Allergy status to other anti-infective agents; Z88.5 Allergy status to narcotic agent
CPT/HCPCS: 36415; 74176; 76705; 80048; 80076; 82150; 82962; 83690; 85025; 96374; 96375; 99284; J2405; J2550; J7030

== ENCOUNTER 2018-05-01 06:09 | Day surgery (SDC) | payer BC ==
--- OUTSIDE RECORDS SUMMARY | 2018-05-01 06:12 | XMS REPORT ---
:1970 Author Organization eClinicalWorks Care Team Providers Name Role Phone Neeru Logan Provider Role Unavailable Allergies, Adverse Reactions, Alerts Substance Reaction Event Type statin throat swelling Drug Allergy clindamycin swelling Drug Allergy vancomycin face swelling, fever Drug Allergy Jardiance severe anxiety Drug Allergy Lisinopril cough Drug Allergy Levaquin hallucinations Drug Allergy Iodine increases BS to 400's,skin blisters Drug Allergy Fenofibrate face swelling Drug Allergy Bactrim face swelling Drug Allergy Azithromycin decreased B/P,palpitations Drug Allergy Problems Problem Type Condition Code Onset Dates Condition Status Assessment Well woman exam with routine Z01.419 Active gynecological exam Assessment Encounter for general adult medical Z00.00 Active examination without abnormal findings Assessment Acute cystitis with hematuria N30.01 Active Assessment Encounter for screening mammogram Z12.31 Active for malignant neoplasm of breast Problem Hyperlipidemia E78.5 Active Problem Hypertension I10 Active Problem Type 2 diabetes mellitus without E11.9 Active complication, without long-term current use of insulin Problem Migraines G43.909 Active Problem Allergic rhinitis, unspecified J30.9 Active Problem Anxiety F41.9 Active Problem Hypothyroidism E03.9 Active Medications Medication Code Code Instructions Start End Status Dosage System Date Date Diflucan [facility] 43868566823 150 MG Orally Feb 20Feb Active 1 tablet Once a day 2017 Nitrofurantoin ND 71475995740 100 MG Orally Feb 20Feb Active 1 capsule Macrocrystal BID 2017 12, with food 2018 or milk GlyBURIDE ND 22759311274 5 MG Orally January 21, Active 1 tablet Once a day 2017 with breakfast or the first main meal of the day Levothyroxine ND 70674166966 88 MCG Oral Active TAKE 1 Sodium TABLET BY MOUTH EVERY MORNING Losartan ND 85472433969 50-12.5 MG February 12, Active 1 tablet Potassium-HCTZ Orally Once a 2018 day Valsartan-Hydroch ND 59529367503 80-12.5 MG Oral Active TAKE 1 lorothiazide TABLET BY MOUTH EVERY DAY Results Name Result Date Reference Range Unit Abnormality Flag THINPREP TIS PAP AND HPV mRNA E6/E7, CHLAMYDIA/N.GONORRHOEAE URINALYSIS AUTO W/O SCOPE (52014) ----PROTEIN N 20180220 ----pH 5.5 20180220 ----NIT P [id number] ----CONCEPCION 1+ [id number] ----URO 1.0 20180220 ----SPECIFIC GRAVITY 1.015 20180220 ----BLO TR [id number] ----BILIRUBIN N [id number] ----KETONES N [id number] ----GLUCOSE N [id number] Summary Purpose eClinicalWorks Submission
--- OUTSIDE RECORDS SUMMARY | 2018-05-01 06:12 | XMS REPORT ---
:1970 Author Organization e[employer] Care Team Providers Name Role Phone Neeru Logan Provider Role Unavailable Allergies No Known Allergies Problems Problem Type Condition Code Onset Dates Condition Status Problem Hypertension I10 Active Problem Anxiety F41.9 Active Problem Hyperlipidemia E78.5 Active Problem Allergic rhinitis, unspecified J30.9 Active Problem Hypothyroidism E03.9 Active Problem Migraines G43.909 Active Medications Medication Code Code Instructions Start End Date Status Dosage System Date Losartan [facility] 96761561921 50-12.5 MG February 12, Active 1 tablet Potassium-HCTZ Orally Once a 2017 day Results No Known Results Summary Purpose eClinicalWorks Submission
--- OUTSIDE RECORDS SUMMARY | 2018-05-01 06:12 | XMS REPORT ---
[...] Condition Code Onset Dates Condition Status Assessment Anxiety F41.9 Active Assessment Hypertension I10 Active Assessment Hypothyroidism E03.9 Active Assessment Type 2 diabetes mellitus with other E11.59 Active circulatory complication, without long-term current use of insulin Problem Hypertension I10 Active Problem Anxiety F41.9 Active Problem Hyperlipidemia E78.5 Active Problem Allergic rhinitis, unspecified J30.9 Active Problem Hypothyroidism E03.9 Active Problem Migraines G43.909 Active Medications Medication Code Code Instructions Start End Status Dosage System Date Date Atorvastatin Calcium [facility] 70307944535 10 MG Oral Active TAKE 1 TABLET BY MOUTH AT BEDTIME. ProAir HFA [facility] 59969885969 108 (90 Base) Active USE 1-2 MCG/ACT PUFFS BY Inhalation MOUTH EVERY 4-6 HOURS Levothyroxine Sodium ND 09992790362 88 MCG Oral Active TAKE 1 TABLET BY MOUTH EVERY MORNING Valsartan-Hydrochlor ND 79530847147 80-12.5 MG Active TAKE 1 othiazide Oral TABLET BY MOUTH EVERY DAY Benzonatate ND 02852423190 200 MG Oral Active TAKE ONE CAPSULE BY MOUTH 3 TIMES A DAY NEEDED FOR COUGH MethylPREDNISolone ND 09901192509 4 MG Oral Active TAKE 6 TABLETS ON DAY 1 DIRECTED ON PACKAGE AND DECREASE BY 1 TAB EACH DAY FOR A TOTAL OF 6 DAYS GlyBURIDE ND 96010525567 5 MG Orally Iraida Active 1 tablet Once a day 2017 breakfast or the first main meal of the day MetFORMIN HCl ER ND 98903234767 750 MG Oral Active TAKE 1 TABLET BY MOUTH 2 TIMES DAILY BEFORE BREAKFAST AND DINNER. Results No Known Results Summary Purpose eClinicalWorks Submission
--- OUTSIDE RECORDS SUMMARY | 2018-05-01 06:13 | XMS REPORT ---
:1970 Author Organization e[employer]Works Care Team Providers Name Role Phone Sophie Logany Provider Role Unavailable Allergies No Known Allergies Problems Problem Type Condition Code Onset Dates Condition Status Problem Hyperlipidemia E78.5 Active Problem Hypertension I10 Active Problem Type 2 diabetes mellitus without E11.9 Active complication, without long-term current use of insulin Problem Migraines G43.909 Active Problem Allergic rhinitis, unspecified J30.9 Active Problem Anxiety F41.9 Active Problem Hypothyroidism E03.9 Active Medications No Known Medications Results No Known Results Summary Purpose eClinicalWorks Submission
--- OUTSIDE RECORDS SUMMARY | 2018-05-01 06:13 | XMS REPORT ---
:1970 Author Organization eClinicalWorks Care Team Providers Name Role Phone [place], Neeru Provider Role Unavailable Allergies No Known Allergies [...]
[2018-05-01] MEDS ORDERED: NA CHLORIDE 0.9% 1,000 ML ONE ×2 (06:39→07:12)
[2018-05-01] MEDS ORDERED: FENTANYL CITR 100 MCG/2 ML ONE (07:03)
[2018-05-01] MEDS ORDERED: PROPOFOL 200 MG/20 ML VIAL IV ONE (07:04)
[2018-05-01] MEDS ORDERED: MIDAZOLAM HCL 2 MG/2 ML INJ ONE (07:04)
[2018-05-01] MEDS ORDERED: LIDOCAINE 2% MPF 5 ML VIAL ONE (07:05)
[2018-05-01] MEDS ORDERED: LIDOCAINE JELLY 2%- 5 ML TUBE ONE (07:05)
[2018-05-01] MEDS ORDERED: ONDANSETRON HCL 40 MG/20 ML VIAL ONE (07:06)
[2018-05-01] MEDS ORDERED: LIDOCAINE 1% W/EPI 1:100,000 MDV 50 ML VIAL ONE (07:12)
[2018-05-01] MEDS ORDERED: ONDANSETRON 4 MG/2 ML VIAL ONE (07:14)
[2018-05-01] MEDS: MEPERIDINE HCL 50 MG/ML AMP ONE ×2 (08:28→08:35)
[2018-05-01] MEDS ORDERED: PROMETHAZINE 25 MG/ML VIAL ONE (08:49)
[2018-05-01] MEDS ORDERED: KETOROLAC 30 MG/ML INJ ONE (08:49)
[2018-05-01 09:56] VITALS: O2SAT 94
[2018-05-01] MEDS ORDERED: IBUPROFEN 400 MG TAB ONE (10:06)
[2018-05-01 10:10] VITALS: BP 102/67; TEMP 96.9
--- NOTE | 2018-05-01 12:16 | OP ---
Date of Procedure: 05/01/2018 Surgeon: Stacia Olson MD Preoperative Diagnoses: Secondary amenorrhea, morbid obesity, type 2 diabetes mellitus, hypothyroidi sm, and possible history of abnormal prolactin or hyperprolactinemia, and cervical mass. Postoperative Diagnoses: 1.Cervical mass, possible cervical myoma, leiomyoma. 2.Secondary amenorrhea, type 2 diabetes, and others. Procedures Performed: Cervical myomectomy, hysteroscopy, and dilation and curettage. Anesthesia: General with LMA. Specimen: Cervical myoma and endometrial curettings. Complications: None. Drains: None. Condition: The patient is stable. Findings: The 2-3 cm leiomyoma was prolapsed out of the cervical canal. The stem of this was visual ized with the hysteroscope and was found about 2 cm above the external os in the cervical canal. The endometrial cavity was empty. The lining was thin. Both tubal ostia and the entire cavity were wel l visualized. The patient's condition is stable. She was recovered from anesthesia in the OR and taken to PACU in stable condition. Description Of Procedure: After informed consent was verified, this 47-year-old was brought back. N o antibiotics were given. She was placed in a supine fashion on the operating table. After general anesthesia was given, she was placed in a dorsal lithotomy position. Pelvic exam was performed, and the cervical polyp was palpated as well as the uterus about 8-10 weeks. No adnexal masses were noted . Speculum was placed to expose the cervix. Prep times with 3 with Betadine was done. The cervical mass was grasped with a polyp forceps and this was slipping was not possible to twist it. Then, an Allis clamp and ring forceps were used in a similar fashion, could not be grasped as this was breakin g down. So the polyp was held gently with the help of as long Allis and the base of the polyp was cu t using curved Gómez scissors, going on both sides gently trying to make sure that the entire mass was removed. After this was excised, was handed off for permanent pathology. Then hysteroscopy was per formed with a SlimLine hysteroscope, 30-degree lens and normal saline. Canal was traversed directly. Cavity was entered. The cavity was narrow and long. The lining was thin. Both tubal ostia were w ell visualized. The scope was removed. Endometrial curettings were performed with a medium curette. Very minimal sample was obtained. All instruments were removed. The base of the myoma was visuali zed again with the scope, and this was hemostatic. All instrument, needle, and sponge counts were do ne and were correct at the end of the case. The patient was recovered from anesthesia and taken to P ACU in stable condition. She will follow up with me in 1 week. GUERO/CASSIA Voice ID: [id number] Report ID: [id number]
== END 2018-05-01 10:39 | disposition home or self-care (01) ==
LOC: OR 06:09
PROVIDERS: ATTEND Obstetrics & Gynecology
PROC: 0UJD8ZZ Inspection of Uterus and Cervix, Via Natural or Artificial Opening Endoscopic (ICD-10-PCS; 2018-05-01)
PROC: 0UBC7ZZ Excision of Cervix, Via Natural or Artificial Opening (ICD-10-PCS; 2018-05-01)
PROC: 0UDB7ZX Extraction of Endometrium, Via Natural or Artificial Opening, Diagnostic (ICD-10-PCS; principal; 2018-05-01 07:30)
DX: D25.9 Leiomyoma of uterus, unspecified (principal); N91.1 Secondary amenorrhea; E11.9 Type 2 diabetes mellitus without complications; I10 Essential (primary) hypertension; E66.01 Morbid (severe) obesity due to excess calories; E03.9 Hypothyroidism, unspecified; E78.00 Pure hypercholesterolemia, unspecified
CPT/HCPCS: 81025; 82962; 88305; J2175; J2250; J2405; J2550; J3010; J7030

== ENCOUNTER 2018-05-11 00:48 | Emergency (ER) | payer BC ==
--- OUTSIDE RECORDS SUMMARY | 2018-05-11 00:51 | XMS REPORT ---
:1970 Author Organization e[employer]Works Care Team Providers Name Role Phone Smith, Neeru Provider Role Unavailable Allergies No Known [...]
--- OUTSIDE RECORDS SUMMARY | 2018-05-11 00:51 | XMS REPORT ---
[...] Status Dosage System Date Date Atorvastatin Calcium [facility] 88029584093 10 MG Oral Active TAKE 1 TABLET BY MOUTH AT BEDTIME. ProAir HFA [facility] 23763054527 108 (90 Base) Active USE 1-2 MCG/ACT PUFFS BY Inhalation MOUTH EVERY 4-6 HOURS Levothyroxine Sodium ND 77447901504 88 MCG Oral Active TAKE 1 TABLET BY MOUTH EVERY MORNING Valsartan-Hydrochlor ND 98067708960 80-12.5 MG Active TAKE 1 othiazide Oral TABLET BY MOUTH EVERY DAY Benzonatate ND 30455944200 200 MG Oral Active TAKE ONE CAPSULE BY MOUTH 3 TIMES A DAY NEEDED FOR COUGH MethylPREDNISolone ND 38145288081 4 MG Oral Active TAKE 6 TABLETS ON DAY 1 DIRECTED ON PACKAGE AND DECREASE BY 1 TAB EACH DAY FOR A TOTAL OF 6 DAYS GlyBURIDE ND 18867249907 5 MG Orally Iraida Active 1 tablet Once a day 2017 breakfast or the first main meal of the day MetFORMIN HCl ER ND 81986798454 750 MG Oral Active TAKE 1 TABLET BY MOUTH 2 TIMES DAILY BEFORE BREAKFAST AND DINNER. Results No Known Results Summary Purpose eClinicalWorks Submission
--- OUTSIDE RECORDS SUMMARY | 2018-05-11 00:51 | XMS REPORT ---
[...] End Date Status Dosage System Date Losartan [facility] 73414481399 50-12.5 MG February 12, Active 1 tablet Potassium-HCTZ Orally Once a 2017 day Results No Known Results Summary Purpose eClinicalWorks Submission
--- OUTSIDE RECORDS SUMMARY | 2018-05-11 00:51 | XMS REPORT ---
[...] End Status Dosage System Date Date Diflucan [facility] 42954962525 150 MG Orally Feb 20Feb Active 1 tablet Once a day 2017 Nitrofurantoin ND 21112811760 100 MG Orally Feb 20Feb Active 1 capsule Macrocrystal BID 2017 12, with food 2018 or milk GlyBURIDE ND 58461264303 5 MG Orally January 21, Active 1 tablet Once a day 2017 with breakfast or the first main meal of the day Levothyroxine ND 97616072889 88 MCG Oral Active TAKE 1 Sodium TABLET BY MOUTH EVERY MORNING Losartan ND 40104021281 50-12.5 MG February 12, Active 1 tablet Potassium-HCTZ Orally Once a 2018 day Valsartan-Hydroch ND 09053598781 80-12.5 MG Oral Active TAKE 1 lorothiazide TABLET BY MOUTH EVERY DAY Results Name Result Date Reference Range Unit Abnormality Flag THINPREP TIS PAP AND HPV mRNA E6/E7, CHLAMYDIA/N.GONORRHOEAE URINALYSIS AUTO W/O SCOPE (67872) ----PROTEIN N 20180220 ----pH 5.5 20180220 ----NIT P 20180220 ----CONCEPCION 1+ 20180220 ----URO 1.0 20180220 ----SPECIFIC GRAVITY 1.015 20180220 ----BLO TR 20180220 ----BILIRUBIN N 20180220 ----KETONES N 20180220 ----GLUCOSE N 20180220 Summary Purpose eClinicalWorks Submission
[2018-05-11 01:24] LABS: Urine Blood NEGATIVE (NEG); Urine Glucose NEGATIVE (NEG); Urine Protein NEGATIVE (NEG); Urine Specific Gravity 1.015 (1.005-1.030); Urine pH 5.5 (5.0-7.0)
[2018-05-11] MEDS ORDERED: ONDANSETRON 4 MG/2 ML VIAL ONE (02:08)
[2018-05-11] MEDS ORDERED: NA CHLORIDE 0.9% 1,000 ML ONE (02:08)
[2018-05-11 02:59] LABS: Absolute Lymphocytes (CBC) 2.9 K/uL (0.7-4.9); Absolute Monocytes 0.6 K/uL (0.1-1.3); Absolute Neutrophil 3.7 K/uL (1.8-8.0); Basophils % 1.1 % (0-1.3); Eosinophils % 3.3 % (0-4.4); Hematocrit 40.9 % (36.0-45.0); Lymphocytes % 38.3 % (15.3-44.8); MCH 28.4 pg (27.0-35.0); MCV 81.6 fL (80-100); MPV 9.8 fL (7.6-11.3); Monocytes % 8.2 % (3.3-12.3); RBC Red Blood Cell Count 5.02 M/uL (3.86-4.86)
[2018-05-11 03:00] LABS: Protime INR 1.06
[2018-05-11 03:06] LABS: Urine Bacteria <20 /HPF (<20); Urine Culture Reflex Order NOT NEEDED; Urine RBC NONE SEEN /HPF (NONE SEEN)
[2018-05-11 03:13] LABS: ALT/SGPT 79 U/L (12-78); AST/SGOT 38 U/L (15-37); Albumin 3.3 g/dL (3.4-5.0); Alkaline Phosphatase 89 U/L (45-117); BUN Blood Urea Nitrogen 10 mg/dL (7-18); Bicarbonate 27 mmol/L (21-32); Bilirubin Direct < 0.1 mg/dL (0-0.2); Bilirubin Total 0.5 mg/dL (0.2-1.0); Glucose Level 168 mg/dL (74-106); Lipase 239 U/L (73-393); NT PRO-BNP 24 pg/mL (<125); Potassium 3.7 mmol/L (3.5-5.1); Sodium Level 140 mmol/L (136-145); Troponin (Emerg Dept Use Only) < 0.02 ng/mL (0.0-0.045)
--- NOTE | 2018-05-11 03:23 | EDPHYS ---
Physician Documentation [facility] Name: Chantal Stout Age: 47 yrs Sex: Female : 1970 Arrival Date: 05/11/2018 Time: 00:52 Bed 13 Private MD: ED Physician Marco Vargas HPI: 05/11 01:35 This 47 yrs old Female presents to ER via Ambulatory with complaints of manuela Nausea. 01:35 The patient presents to the emergency department with nausea. Onset: The manuela symptoms/episode began/occurred just prior to arrival, this morning. Possible causes: unknown. The symptoms are aggravated by nothing. Associated signs and symptoms: Pertinent positives: nausea. Severity of symptoms: At their worst the symptoms were mild in the emergency department the symptoms are unchanged. The patient has not experienced similar symptoms in the past. 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 - Social history:: Smoking status: Patient/guardian denies using tobacco, the patient reports quitting approximately .25 years ago. - Ebola Screening: : No symptoms or risks identified at this time. ROS: 01:37 Constitutional: Negative for fever, chills, and weight loss, Eyes: Negative for injury, manuela pain, redness, and discharge, ENT: Negative for injury, pain, and discharge, Neck: Negative for injury, pain, and swelling, Cardiovascular: Negative for chest pain, palpitations, and edema, Respiratory: Negative for shortness of breath, cough, wheezing, and pleuritic chest pain, Back: Negative for injury and pain, : Negative for injury, bleeding, discharge, and swelling, MS/Extremity: Negative for injury and deformity, Skin: Negative for injury, rash, and discoloration, Neuro: Negative for headache, weakness, numbness, tingling, and seizure, Psych: Negative for depression, anxiety, suicide ideation, homicidal ideation, and hallucinations, Allergy/Immunology: Negative for hives, rash, and allergies, Endocrine: Negative for neck swelling, polydipsia, polyuria, polyphagia, and marked weight changes, Hematologic/Lymphatic: Negative for swollen nodes, abnormal bleeding, and unusual bruising. 01:37 Abdomen/GI: Positive for abdominal pain, nausea. Exam: 01:37 Constitutional: This is a well developed, well nourished patient who is awake, alert, manuela and in no acute distress. Head/Face: Normocephalic, atraumatic. Eyes: Pupils equal round and reactive to light, extra-ocular motions intact. Lids and lashes normal. Conjunctiva and sclera are non-icteric and not injected. Cornea within normal limits. Periorbital areas with no swelling, redness, or edema. ENT: Nares patent. No nasal discharge, no septal abnormalities noted. Tympanic membranes are normal and external auditory canals are clear. Oropharynx with no redness, swelling, or masses, exudates, or evidence of obstruction, uvula midline. Mucous membranes moist. Neck: Trachea midline, no thyromegaly or masses palpated, and no cervical lymphadenopathy. Supple, full range of motion without nuchal rigidity, or vertebral point tenderness. No Meningismus. Chest/axilla: Normal chest wall appearance and motion. Nontender with no deformity. No lesions are appreciated. Cardiovascular: Regular rate and rhythm with a normal S1 and S2. No gallops, murmurs, or rubs. Normal PMI, no JVD. No pulse deficits. Respiratory: Lungs have equal breath sounds bilaterally, clear to auscultation and percussion. No rales, rhonchi or wheezes noted. No increased work of breathing, no retractions or nasal flaring. Back: No spinal tenderness. No costovertebral tenderness. Full range of motion. Skin: Warm, dry with normal turgor. Normal color with no rashes, no lesions, and no evidence of cellulitis. MS/ Extremity: Pulses equal, no cyanosis. Neurovascular intact. Full, normal range of motion. Neuro: Awake and alert, GCS 15, oriented to person, place, time, and situation. Cranial nerves II-XII grossly intact. Motor strength 5/5 in all extremities. Sensory grossly intact. Cerebellar exam normal. Normal gait. Psych: Awake, alert, with orientation to person, place and time. Behavior, mood, and affect are within normal limits. 01:37 Abdomen/GI: Inspection: abdomen appears normal. Vital Signs: 01:04 BP 130 / 90; Pulse 83; Resp 18; Temp 98.1(O); Pulse Ox 97% on R/A; Weight 121.11 kg ak1 (R); Height 5 ft. 4 in. (162.56 cm) (R); Pain 0/10; 03:04 BP 100 / 49; Pulse 78; Resp 16; Pulse Ox 96% on R/A; Pain 0/10; ak1 01:04 Body Mass Index 45.83 (121.11 kg, 162.56 cm) [facility] MDM: 01:24 Patient medically screened. [facility] 01:39 Data reviewed: vital signs, nurses notes, lab test result(s), EKG, radiologic studies, [facility] plain films. 05/11 01:18 Order name: Urine Dipstick--Ancillary (enter results) [facility] 05/11 01:18 Order name: Urine Dipstick-Ancillary; Complete Time: 01:35 EDMS 05/11 01:18 Order name: Urine Microscopic Only; Complete Time: 03:17 [facility] 05/11 01:18 Order name: Urine Culture [facility] 05/11 01:41 Order name: Basic Metabolic Panel; Complete Time: 03:17 [facility] 05/11 01:41 Order name: CBC with Diff; Complete Time: 03:17 [facility] 05/11 01:41 Order name: LFT's; Complete Time: 03:17 [facility] 05/11 01:41 Order name: Magnesium; Complete Time: 03:17 [facility] 05/11 01:41 Order name: NT PRO-BNP; Complete Time: 03:17 [facility] 05/11 01:41 Order name: PT-INR; Complete Time: 03:17 [facility] 05/11 01:41 Order name: Troponin (emerg Dept Use Only); Complete Time: 03:17 [facility] 05/11 01:41 Order name: XRAY Chest (1 view) [facility] 05/11 01:41 Order name: Lipase; Complete Time: 03:17 [facility] 05/11 01:41 Order name: EKG; Complete Time: 01:42 [facility] 05/11 01:41 Order name: Cardiac monitoring; Complete Time: 02:07 [facility] 05/11 01:41 Order name: EKG - Nurse/Tech; Complete Time: 02:07 [facility] 05/11 01:41 Order name: IV Saline Lock; Complete Time: 02:08 [facility] 05/11 01:41 Order name: Labs collected and sent; Complete Time: 02:07 [facility] 05/11 01:41 Order name: O2 Per Protocol; Complete Time: : [facility] 05/11 01:41 Order name: O2 Sat Monitoring; Complete Time: 01:42 [facility] Administered Medications: 02:07 Drug: NS 0.9% 1000 ml Route: IV; Rate: 1 bolus; Site: left hand; ak1 03:16 Follow up: IV Status: Completed infusion ak1 02:07 Drug: Zofran 4 mg Route: IVP; Site: left hand; ak1 03:15 Follow up: Response: No adverse reaction ak1 03:31 Drug: Macrobid 100 mg Route: PO; jb4 03:45 Follow up: Response: No adverse reaction ak1 Disposition: 05/11/18 03:23 Discharged to Home. Impression: Nausea, Type 2 diabetes mellitus, Urinary tract infection, site not specified. - Condition is Stable. - Discharge Instructions: Type 2 Diabetes Mellitus, Diagnosis, Adult, Urinary Tract Infection, Adult, Urinary Tract Infection, Adult, [id number], Type 2 Diabetes Mellitus, Diagnosis, Adult, [id number]. - Prescriptions for Zofran 4 mg Oral Tablet - take 1 tablet by ORAL route every 12 hours As needed; 14 tablet. Macrobid 100 mg Oral Capsule - take 1 capsule by ORAL route every 12 hours for 7 days; 14 capsule. - Medication Reconciliation Form, Thank You Letter, Antibiotic Education, Prescription Opioid Use form. - Follow up: Private Physician; When: 2 - 3 days; Reason: Recheck today's complaints, Continuance of care, Re-evaluation by your physician. - Problem is new. - Symptoms have improved. Signatures: Dispatcher [employer] EDMarco Seaman MD MD manuela Krenek, Clau, RN RN ak1 Pritesh Estrada, RN RN jb4 Corrections: (The following items were deleted from the chart) 03:23 03:23 05/11/2018 03:23 Discharged to Home. Impression: Nausea; Type 2 diabetes manuela mellitus. Condition is Stable. Forms are Medication Reconciliation Form, Thank You Letter, Antibiotic Education, Prescription Opioid Use. Follow up: Private Physician; When: 2 - 3 days; Reason: Recheck today's complaints, Continuance of care, Re-evaluation by your physician. Problem is new. Symptoms have improved. manuela 03:55 03:23 05/11/2018 03:23 Discharged to Home. Impression: Nausea; Type 2 diabetes ak1 mellitus; Urinary tract infection, site not specified. Condition is Stable. Forms are Medication Reconciliation Form, Thank You Letter, Antibiotic Education, Prescription Opioid Use. Follow up: Private Physician; When: 2 - 3 days; Reason: Recheck today's complaints, Continuance of care, Re-evaluation by your physician. Problem is new. Symptoms have improved. manuela
--- NOTE | 2018-05-11 03:23 | ER ---
Nurse's Notes [facility] Name: Chantal Stout Age: 47 yrs Sex: Female : 1970 Arrival Date: 05/11/2018 Time: 00:52 Bed 13 Private MD: Diagnosis: Nausea;Type 2 diabetes mellitus;Urinary tract infection, site not specified Presentation: 05/11 01:06 Presenting complaint: Patient states: nausea, "not feeling right" pt stated she woke up ak1 with nausea, blurred vision. 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 Transition of care: patient was not received from another setting of care. Onset of symptoms was May 11, 2018. Risk Assessment: Do you want to hurt yourself or someone else? Patient reports no desire to harm self or others. Initial Sepsis Screen: Does the patient meet any 2 criteria? No. Patient's initial sepsis screen is negative. Does the patient have a suspected source of infection? No. Patient's initial sepsis screen is negative. Care prior to arrival: None. 01:06 Method Of Arrival: Ambulatory ak1 01:06 Acuity: NOÉ 3 ak1 01:08 Note pt had sx Sunday to remove tumor on cervix. ak1 Triage Assessment: 01:04 General: Appears in no apparent distress. Behavior is calm, cooperative. Pain: Denies ak1 pain. EENT: No signs and/or symptoms were reported regarding the EENT system. Neuro: Level of Consciousness is awake, alert, obeys commands, Oriented to person, place, time, situation, Lining Folder are equal bilaterally Moves all extremities. Gait is steady, Speech is normal, Facial symmetry appears normal. Cardiovascular: No deficits noted. Respiratory: No deficits noted. GI: Reports nausea. : No signs and/or symptoms were reported regarding the genitourinary system. Derm: No signs and/or symptoms reported regarding the dermatologic system. Musculoskeletal: No signs and/or symptoms reported regarding the musculoskeletal system. 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 LMP N/A - Post-menopause ak1 Historical: - Allergies: 01:04 Bactrim; ak1 01:04 Cephalexin; ak1 01:04 Codeine; ak1 01:04 Iodine; ak1 01:04 Levaquin; ak1 - Home Meds: 01:04 levothyroxine 88 mcg tab once daily [Active]; metformin 750 mg Oral Tb24 twice a day ak1 [Active]; ProAir HFA 90 mcg/actuation inhalation HFAA 2 puffs every 4-6 hours [Active]; valsartan-hydrochlorothiazide 80-12.5 mg Oral tab 1 tab [Active]; Glimepiride Oral [Active]; - PMHx: 01:04 Asthma; Hypothyroidism; Hypertension; Diabetes - NIDDM; ak1 - PSHx: 01:04 Tonsillectomy; left hand screws; cervix sx tumor removed 04/2018; ak1 - Immunization history:: Adult Immunizations unknown. - Social history:: Smoking status: Patient/guardian denies using tobacco, the patient reports quitting approximately .25 years ago. - Ebola Screening: : No symptoms or risks identified at this time. Screenin:07 Abuse screen: Denies threats or abuse. Denies injuries from another. Nutritional ak1 screening: No deficits noted. Tuberculosis screening: No symptoms or risk factors identified. Fall Risk None identified. Assessment: 01:08 Reassessment: Patient appears in no apparent distress at this time. No changes from ak1 previously documented assessment. see triage assessment. 01:20 GI: Reports nausea. GI: Patient currently denies pain. GI: Abdomen is round ak1 non-distended. : Reports burning with urination. Vital Signs: 01:04 BP 130 / 90; Pulse 83; Resp 18; Temp 98.1(O); Pulse Ox 97% on R/A; Weight 121.11 kg ak1 (R); Height 5 ft. 4 in. (162.56 cm) (R); Pain 0/10; 03:04 BP 100 / 49; Pulse 78; Resp 16; Pulse Ox 96% on R/A; Pain 0/10; ak1 01:04 Body Mass Index 45.83 (121.11 kg, 162.56 cm) ak1 ED Course: 00:52 Patient arrived in ED. es 01:02 Clau Carvalho, RN is Primary Nurse. ak1 01:04 Arm band placed on Patient placed in an exam room, on a stretcher, on pulse oximetry, ak1 Patient notified of wait time. 01:07 Triage completed. ak1 01:08 Patient has correct armband on for positive identification. Placed in gown. Bed in low ak1 position. Call light in reach. Side rails up X 1. Adult w/ patient. Pulse ox on. NIBP on. 01:24 Marco Vargas MD is Attending Physician. [facility] 02:00 X-ray completed. Portable x-ray completed in exam room. Patient tolerated procedure ls3 well. 02:01 XRAY Chest (1 view) In Process Unspecified. EDLA 02:08 Initial lab(s) drawn, by me, sent to lab. Urine collected: clean catch specimen, EKG ak1 done, by ED staff, reviewed by Marco Vargas MD. Inserted saline lock: 20 gauge in left hand, using aseptic technique. Blood collected. 03:45 No provider procedures requiring assistance completed. IV discontinued, intact, ak1 bleeding controlled, No redness/swelling at site. Pressure dressing applied. Administered Medications: 02:07 Drug: NS 0.9% 1000 ml Route: IV; Rate: 1 bolus; Site: left hand; ak1 03:16 Follow up: IV Status: Completed infusion ak1 02:07 Drug: Zofran 4 mg Route: IVP; Site: left hand; ak1 03:15 Follow up: Response: No adverse reaction ak1 03:31 Drug: Macrobid 100 mg Route: PO; jb4 03:45 Follow up: Response: No adverse reaction ak1 Outcome: 03:23 Discharge ordered by . [facility] 03:45 Condition: stable ak1 03:45 Discharge instructions given to patient, family, Instructed on discharge instructions, follow up and referral plans. no drinking with medication, no driving heavy equipment, medication usage, Demonstrated understanding of instructions, follow-up care, medications, Prescriptions given X 2. 03:55 Discharged to home ambulatory, with family. ak1 03:55 Patient left the ED. ak1 Signatures: Dispatcher [employer] [facility] Marco Vargas MD MD cha Salyer, Clau Gruber RN RN ak1 Pritesh Estrada RN RN jb4 Lito Dunn ls3
[2018-05-11] MEDS ORDERED: NITROFURAN MACRO 100 MG CAP PO ONE (03:32)
[2018-05-11 03:59] VITALS: TEMP 98.1
[2018-05-11 04:01] VITALS: BP 100/49; O2SAT 96
--- NOTE | 2018-05-11 09:02 | RAD REPORT ---
EXAM DESCRIPTION: Julissa Single View05/11/2018 2:01 am CLINICAL HISTORY: Cough COMPARISON: September 2017 FINDINGS: The lungs appear clear of acute infiltrate. The heart is normal size IMPRESSION: No acute abnormalities displayed
--- NOTE | 2018-05-12 17:36 | EKG ---
Test Date: 2018-05-11 Test Time: 01:50:45 Manifest/Order Organizer Print Orders: SHANELLE MEASUREMENT RESULTS: Intervals: Rate: 79 ND: 154 QRSD: 88 QT: 412 QTc: 472 [place]: P: 69 ND: 154 QRS: 26 T: 31 INTERPRETIVE STATEMENTS: Normal sinus rhythm Cannot rule out Anterior infarct, age undetermined Abnormal ECG Compared to ECG 10/19/2017 18:37:26 Myocardial infarct finding now present Electronically Signed On 05-12-18 17:33:49 CDT by Ruslan Garibay
== END 2018-05-11 03:55 | disposition home or self-care (01) ==
LOC: ER 00:48
DX: N39.0 Urinary tract infection, site not specified (principal); E11.9 Type 2 diabetes mellitus without complications; I10 Essential (primary) hypertension; E03.9 Hypothyroidism, unspecified; J45.909 Unspecified asthma, uncomplicated; Z88.1 Allergy status to other antibiotic agents; Z88.3 Allergy status to other anti-infective agents; Z88.5 Allergy status to narcotic agent; Z91.048 Other nonmedicinal substance allergy status
CPT/HCPCS: 36415; 71045; 80048; 80076; 81003; 81015; 83690; 83735; 83880; 84484; 85025; 85610; 87086; 87088; 93005; 96361; 96374; 99284; J2405; J7030

== ENCOUNTER 2018-06-04 20:02 | Emergency (ER) | payer BC ==
--- OUTSIDE RECORDS SUMMARY | 2018-06-04 20:04 | XMS REPORT ---
[...] Status Dosage System Date Date Atorvastatin Calcium [facility] 96676343334 10 MG Oral Active TAKE 1 TABLET BY MOUTH AT BEDTIME. ProAir HFA [facility] 05397862583 108 (90 Base) Active USE 1-2 MCG/ACT PUFFS BY Inhalation MOUTH EVERY 4-6 HOURS Levothyroxine Sodium ND 41383456742 88 MCG Oral Active TAKE 1 TABLET BY MOUTH EVERY MORNING Valsartan-Hydrochlor ND 12015750894 80-12.5 MG Active TAKE 1 othiazide Oral TABLET BY MOUTH EVERY DAY Benzonatate ND 61725673218 200 MG Oral Active TAKE ONE CAPSULE BY MOUTH 3 TIMES A DAY NEEDED FOR COUGH MethylPREDNISolone ND 85597327678 4 MG Oral Active TAKE 6 TABLETS ON DAY 1 DIRECTED ON PACKAGE AND DECREASE BY 1 TAB EACH DAY FOR A TOTAL OF 6 DAYS GlyBURIDE ND 58788756087 5 MG Orally Iraida Active 1 tablet Once a day 2017 breakfast or the first main meal of the day MetFORMIN HCl ER ND 64077116806 750 MG Oral Active TAKE 1 TABLET BY MOUTH 2 TIMES DAILY BEFORE BREAKFAST AND DINNER. Results No Known Results Summary Purpose eClinicalWorks Submission
--- OUTSIDE RECORDS SUMMARY | 2018-06-04 20:04 | XMS REPORT ---
[...] End Status Dosage System Date Date Diflucan [facility] 64735138399 150 MG Orally Feb 20Feb Active 1 tablet Once a day 2017 Nitrofurantoin ND 58895611827 100 MG Orally Feb 20Feb Active 1 capsule Macrocrystal BID 2017 12, with food 2018 or milk GlyBURIDE ND 58419487945 5 MG Orally January 21, Active 1 tablet Once a day 2017 with breakfast or the first main meal of the day Levothyroxine ND 46396184199 88 MCG Oral Active TAKE 1 Sodium TABLET BY MOUTH EVERY MORNING Losartan ND 16661835967 50-12.5 MG February 12, Active 1 tablet Potassium-HCTZ Orally Once a 2018 day Valsartan-Hydroch ND 24840258961 80-12.5 MG Oral Active TAKE 1 lorothiazide TABLET BY MOUTH EVERY DAY Results Name Result Date Reference Range Unit Abnormality Flag THINPREP TIS PAP AND HPV mRNA E6/E7, CHLAMYDIA/N.GONORRHOEAE URINALYSIS AUTO W/O SCOPE (21397) ----PROTEIN N 20180220 ----pH 5.5 20180220 ----NIT P 20180220 ----CONCEPCION 1+ 20180220 ----URO 1.0 20180220 ----SPECIFIC GRAVITY 1.015 20180220 ----BLO TR 20180220 ----BILIRUBIN N 20180220 ----KETONES N 20180220 ----GLUCOSE N 20180220 Summary Purpose eClinicalWorks Submission
--- OUTSIDE RECORDS SUMMARY | 2018-06-04 20:04 | XMS REPORT ---
[...] End Date Status Dosage System Date Losartan [facility] 70275325661 50-12.5 MG February 12, Active 1 tablet Potassium-HCTZ Orally Once a 2017 day Results No Known Results Summary Purpose eClinicalWorks Submission
--- OUTSIDE RECORDS SUMMARY | 2018-06-04 20:05 | XMS REPORT ---
:1970 Author Organization eClinicalWorks Care Team Providers Name Role Phone Pocahontas, Neeru Provider Role Unavailable Allergies No Known [...]
[2018-06-04 20:55] LABS: Protime INR 1.08
[2018-06-04 21:03] LABS: Absolute Lymphocytes (CBC) 2.9 K/uL (0.7-4.9); Absolute Monocytes 0.6 K/uL (0.1-1.3); Absolute Neutrophil 3.9 K/uL (1.8-8.0); Basophils % 0.4 % (0-1.3); Eosinophils % 4.5 % (0-4.4); Hematocrit 42.2 % (36.0-45.0); Lymphocytes % 37.8 % (15.3-44.8); MCH 28.5 pg (27.0-35.0); MCV 82.2 fL (80-100); MPV 10.3 fL (7.6-11.3); Monocytes % 7.1 % (3.3-12.3); RBC Red Blood Cell Count 5.13 M/uL (3.86-4.86)
[2018-06-04 21:11] LABS: ALT/SGPT 88 U/L (12-78); AST/SGOT 55 U/L (15-37); Albumin 3.6 g/dL (3.4-5.0); Alkaline Phosphatase 92 U/L (45-117); BUN Blood Urea Nitrogen 10 mg/dL (7-18); Bicarbonate 26 mmol/L (21-32); Bilirubin Direct 0.2 mg/dL (0-0.2); Bilirubin Total 0.6 mg/dL (0.2-1.0); Glucose Level 187 mg/dL (74-106); NT PRO-BNP 26 pg/mL (<125); Potassium 3.6 mmol/L (3.5-5.1); Protein, Total 7.6 g/dL (6.4-8.2); Sodium Level 138 mmol/L (136-145); Troponin (Emerg Dept Use Only) < 0.02 ng/mL (0.0-0.045)
--- NOTE | 2018-06-04 21:25 | RAD REPORT ---
EXAM DESCRIPTION: RAD - Chest Single View - 06/04/2018 9:11 pm CLINICAL HISTORY: CHEST PAIN Chest pain. COMPARISON: Chest Single View dated 05/11/2018; Chest Single View dated 10/19/2017; Chest Single View dated 12/17/2016; Chest Pa And Lat (2 Views) dated 08/26/2016 FINDINGS: Portable technique limits examination quality. The lungs are grossly clear. The heart is normal in size. No displaced fractures. IMPRESSION: No acute intrathoracic process suspected.
[2018-06-04 21:34] LABS: Urine Blood NEGATIVE (NEG); Urine Glucose NEGATIVE (NEG); Urine Protein NEGATIVE (NEG); Urine pH 5.5 (5.0-7.0)
--- NOTE | 2018-06-04 21:40 | EDPHYS ---
Physician Documentation [facility] Name: Chantal Stout Age: 48 yrs Sex: Female : 1970 Arrival Date: 06/04/2018 Time: 20:03 Bed 27 Private MD: ED Physician David Gomez HPI: 06/04 21:34 This 48 yrs old Female presents to ER via Ambulatory with complaints of Chest gs Pain. 21:34 The patient or guardian reports chest pain that is located primarily in the anterior gs chest wall. Onset: 1 week(s) ago. The pain does not radiate. Associated signs and symptoms: Pertinent positives: palpitations, Pertinent negatives: dizziness, lightheadedness, near syncope, shortness of breath. The chest pain is described as dull. Duration: The patient or guardian reports multiple episodes, that wax and wane, with no pattern, the episodes last approximately 30 second(s). Modifying factors: The symptoms are alleviated by nothing. the symptoms are aggravated by nothing. Severity of pain: At its worst the pain was very mild in the emergency department the pain has resolved and did so just prior to arrival. The patient has experienced similar episodes in the past, multiple times. 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 - Social history:: Smoking status: Patient/guardian denies using tobacco. - Ebola Screening: : Patient denies travel to an Ebola-affected area in the 21 days before illness onset. ROS: 21:34 All other systems are negative. gs Exam: 21:34 Head/Face: Normocephalic, atraumatic. Eyes: Pupils equal round and reactive to light, gs extra-ocular motions intact. Lids and lashes normal. Conjunctiva and sclera are non-icteric and not injected. Cornea within normal limits. Periorbital areas with no swelling, redness, or edema. ENT: Nares patent. No nasal discharge, no septal abnormalities noted. Tympanic membranes are normal and external auditory canals are clear. Oropharynx with no redness, swelling, or masses, exudates, or evidence of obstruction, uvula midline. Mucous membranes moist. Neck: Trachea midline, no thyromegaly or masses palpated, and no cervical lymphadenopathy. Supple, full range of motion without nuchal rigidity, or vertebral point tenderness. No Meningismus. Chest/axilla: Normal chest wall appearance and motion. Nontender with no deformity. No lesions are appreciated. Cardiovascular: Regular rate and rhythm with a normal S1 and S2. No gallops, murmurs, or rubs. Normal PMI, no JVD. No pulse deficits. Respiratory: Lungs have equal breath sounds bilaterally, clear to auscultation and percussion. No rales, rhonchi or wheezes noted. No increased work of breathing, no retractions or nasal flaring. Abdomen/GI: Soft, non-tender, with normal bowel sounds. No distension or tympany. No guarding or rebound. No evidence of tenderness throughout. Back: No spinal tenderness. No costovertebral tenderness. Full range of motion. Skin: Warm, dry with normal turgor. Normal color with no rashes, no lesions, and no evidence of cellulitis. MS/ Extremity: Pulses equal, no cyanosis. Neurovascular intact. Full, normal range of motion. Neuro: Awake and alert, GCS 15, oriented to person, place, time, and situation. Cranial nerves II-XII grossly intact. Motor strength 5/5 in all extremities. Sensory grossly intact. Cerebellar exam normal. Normal gait. 21:34 Constitutional: The patient appears alert, awake. 21:34 ECG was reviewed by the Attending Physician. Vital Signs: 20:23 BP 130 / 86; Pulse 81; Resp 18; Temp 97.7; Pulse Ox 98% on R/A; Weight 121.11 kg (R); aj1 Height 5 ft. 4 in. (162.56 cm) (R); 21:30 BP 132 / 84; Pulse 79; Resp 16; Pulse Ox 99% on R/A; kr2 22:04 BP 128 / 78; Pulse 78; Resp 17; Pulse Ox 100% ; kr2 20:23 Body Mass Index 45.83 (121.11 kg, 162.56 cm) aj1 MDM: 20:17 Patient medically screened. 21:34 Differential diagnosis: abnormal EKG, chest wall pain, palpitations, pvc's. Data gs reviewed: vital signs, nurses notes. Response to treatment: the patient's symptoms have resolved after treatment, the patient's pain is gone. Physician consultation: Israel Ramos MD and will see patient tomorrow. 22:51 ED course: stayed with pt several minutes while watching cardiac monitir, at every pvc gs was noted to have sensation that reproduced chief complaint. 06/04 20:25 Order name: Basic Metabolic Panel; Complete Time: 21:32 06/04 20:25 Order name: CBC with Diff; Complete Time: 21:32 06/04 20:25 Order name: LFT's; Complete Time: 21:32 06/04 20:25 Order name: Magnesium; Complete Time: 21:32 06/04 20:25 Order name: NT PRO-BNP; Complete Time: 21:32 06/04 20:25 Order name: PT-INR; Complete Time: 21:32 06/04 20:25 Order name: Troponin (emerg Dept Use Only); Complete Time: 21:32 06/04 20:25 Order name: XRAY Chest (1 view); Complete Time: 21:32 06/04 20:25 Order name: EKG; Complete Time: 20:26 06/04 20:25 Order name: Cardiac monitoring; Complete Time: 20:36 06/04 20:25 Order name: EKG - Nurse/Tech; Complete Time: 20:36 06/04 20:25 Order name: IV Saline Lock; Complete Time: 20:36 06/04 21:14 Order name: Urine Dipstick--Ancillary (enter results); Complete Time: 21:39 em 06/04 21:14 Order name: Urine --Ancillary (enter results); Complete Time: 21:39 em1 06/04 20:25 Order name: Labs collected and sent; Complete Time: 20:36 06/04 20:25 Order name: O2 Per Protocol; Complete Time: 20:37 06/04 20:25 Order name: O2 Sat Monitoring; Complete Time: 20:37 06/04 20:25 Order name: Urine Test (obtain specimen); Complete Time: 21:12 gs EC:34 Rate is 82 beats/min. QRS [place] is Normal. QRS interval is normal. QT interval is gs normal. No Q waves. T waves are Normal. No ST changes noted. Clinical impression: Normal ECG and notched qrs 2,4,5. Interpreted by me. Administered Medications: No medications were administered Disposition: 06/04/18 21:39 Discharged to Home. Impression: Palpitations, Ventricular premature depolarization. - Condition is Stable. - Discharge Instructions: Palpitations, Premature Ventricular Contraction. - Medication Reconciliation Form, Thank You Letter, Antibiotic Education, Prescription Opioid Use form. - Follow up: Israel Ramos MD; When: 2 - 3 days; Reason: Re-evaluation by your physician. Signatures: Dispatcher [employer] EDMS Donya Haji RN RN aj1 David Gomez MD MD Sloane De RN RN kr2 Corrections: (The following items were deleted from the chart) 22:06 21:39 06/04/2018 21:39 Discharged to Home. Impression: Palpitations; Ventricular kr2 premature depolarization. Condition is Stable. Forms are Medication Reconciliation Form, Thank You Letter, Antibiotic Education, Prescription Opioid Use. Follow up: Israel Ramos; When: 2 - 3 days; Reason: Re-evaluation by your physician. gs
--- NOTE | 2018-06-04 21:40 | ER ---
Nurse's Notes [facility] Name: Chantal Stout Age: 48 yrs Sex: Female : 1970 Arrival Date: 06/04/2018 Time: 20:03 Bed 27 Private MD: Diagnosis: Palpitations;Ventricular premature depolarization Presentation: 06/04 20:20 Presenting complaint: Patient states: Intermittent episodes of substernal chest pain aj1 that feel like "squeezing" Patient states that these episodes leave her gasping for air and she has palpitations afterward. Patient reports the longest episode that she's had lasted approximately minute. Transition of care: patient was not received from another setting of care. Onset of symptoms was June 04, 2018. Risk Assessment: Do you want to hurt yourself or someone else? Patient reports no desire to harm self or others. Initial Sepsis Screen: Does the patient meet any 2 criteria? No. Patient's initial sepsis screen is negative. Does the patient have a suspected source of infection? No. Patient's initial sepsis screen is negative. Care prior to arrival: None. 20:20 Method Of Arrival: Ambulatory aj1 20:20 Acuity: NOÉ 3 aj1 Triage Assessment: 20:23 General: Appears in no apparent distress. uncomfortable, Behavior is calm, cooperative, aj1 appropriate for age. Pain: Complains of pain in chest. Neuro: Level of Consciousness is awake, alert, obeys commands. Cardiovascular: Patient's skin is warm and dry. Cardiovascular: Reports chest pain, palpitations, shortness of breath. Respiratory: Airway is patent Respiratory effort is even, unlabored, Respiratory pattern is regular, symmetrical. 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 - Social history:: Smoking status: Patient/guardian denies using tobacco. - Ebola Screening: : Patient denies travel to an Ebola-affected area in the 21 days before illness onset. Screenin:15 Abuse screen: Denies threats or abuse. Denies injuries from another. Nutritional kr2 screening: No deficits noted. Tuberculosis screening: No symptoms or risk factors identified. Fall Risk None identified. Assessment: 20:15 General: Appears in no apparent distress. uncomfortable, obese, well groomed, Behavior kr2 is calm, cooperative. Pain: Pain began. Pain: Complains of pain in xyphoid area and mid-sternal area Pain does not radiate. Pain currently is 7 out of 10 on a pain scale. Quality of pain is described as pressure, squeezing, Is episodic, Alleviated by rest. Neuro: Level of Consciousness is awake, alert, obeys commands, Oriented to person, place, time, situation, Appropriate for age. Cardiovascular: Heart tones S1 S2 Patient's skin is warm and dry. Rhythm is sinus rhythm. Respiratory: Airway is patent Respiratory effort is even, unlabored, Respiratory pattern is regular, symmetrical. GI: Abdomen is non-distended, obese, Patient currently denies nausea, vomiting. : Denies burning with urination. EENT: Oral mucosa is moist. Derm: Skin is intact, is healthy with good turgor, Skin is pink, warm \\T\\ dry. Musculoskeletal: Circulation, motion, and sensation intact. 21:18 Reassessment: Patient appears in no apparent distress at this time. Patient and/or kr2 family updated on plan of care and expected duration. Pain level reassessed. Patient is alert, oriented x 3, equal unlabored respirations, skin warm/dry/pink. Patient denies pain at this time. 22:04 Reassessment: Patient appears in no apparent distress at this time. Patient and/or kr2 family updated on plan of care and expected duration. Pain level reassessed. Patient is alert, oriented x 3, equal unlabored respirations, skin warm/dry/pink. Patient states feeling better. Vital Signs: 20:23 BP 130 / 86; Pulse 81; Resp 18; Temp 97.7; Pulse Ox 98% on R/A; Weight 121.11 kg (R); aj1 Height 5 ft. 4 in. (162.56 cm) (R); 21:30 BP 132 / 84; Pulse 79; Resp 16; Pulse Ox 99% on R/A; kr2 22:04 BP 128 / 78; Pulse 78; Resp 17; Pulse Ox 100% ; kr2 20:23 Body Mass Index 45.83 (121.11 kg, 162.56 cm) aj1 ED Course: 20:03 Patient arrived in ED. al2 20:11 David Gomez MD is Attending Physician. gs 20:15 Patient has correct armband on for positive identification. Placed in gown. Bed in low kr2 position. Call light in reach. Side rails up X2. 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 Pulse ox on. NIBP on. Door closed. Warm blanket given. Head of bed elevated. 20:15 Patient maintains SpO2 saturation greater than 95% on room air. kr2 20:22 Triage completed. aj1 20:23 Arm band placed on Patient placed in an exam room. aj1 20:30 Inserted saline lock: 20 gauge in left antecubital area, using aseptic technique. Blood kr2 collected. 21:11 XRAY Chest (1 view) In Process Unspecified. EDMS 21:17 Sloane De, ALCIDES is Primary Nurse. kr2 21:38 Israel Ramos MD is Referral Physician. gs 22:06 No provider procedures requiring assistance completed. IV discontinued, intact, kr2 bleeding controlled, No redness/swelling at site. Pressure dressing applied. Administered Medications: No medications were administered Outcome: 21:39 Discharge ordered by . gs 22:06 Discharged to home ambulatory, with family. kr2 22:06 Condition: good 22:06 Discharge instructions given to patient, family, Instructed on discharge instructions, follow up and referral plans. Demonstrated understanding of instructions, follow-up care. 22:06 Patient left the ED. kr2 Signatures: Dispatcher [employer] EDOR Donya Haji RN RN aj1 David Gomez MD MD Sloane De RN RN kr2 Polly Wagoner al2
[2018-06-04 22:26] VITALS: TEMP 97.7
[2018-06-04 22:35] VITALS: BP 128/78; O2SAT 100
--- NOTE | 2018-06-05 10:09 | EKG ---
Test Date: 2018-06-04 Test Time: 20:22:52 Residential Treatment Specialist: MEASUREMENT RESULTS: Intervals: Rate: 82 NE: 154 QRSD: 86 QT: 408 QTc: 476 [place]: P: 66 NE: 154 QRS: 45 T: 40 INTERPRETIVE STATEMENTS: Normal sinus rhythm Normal ECG Compared to ECG 05/11/2018 01:50:45 Myocardial infarct finding no longer present Electronically Signed On 06-05-18 10:09:04 LINOLEUM LAYER by Raymond Torres
== END 2018-06-04 22:06 | disposition home or self-care (01) ==
LOC: SUPCPDRO 20:02 → ER 20:02
DX: I49.3 Ventricular premature depolarization (principal); R00.2 Palpitations; E11.9 Type 2 diabetes mellitus without complications; E03.9 Hypothyroidism, unspecified; I10 Essential (primary) hypertension; J45.909 Unspecified asthma, uncomplicated; D64.9 Anemia, unspecified; Z79.84 Long term (current) use of oral hypoglycemic drugs; Z79.899 Other long term (current) drug therapy
CPT/HCPCS: 36415; 71045; 80048; 80076; 81003; 81025; 83735; 83880; 84484; 85025; 85610; 93005; 99285

== ENCOUNTER 2018-06-18 10:58 | Emergency (ER) | payer BC ==
--- OUTSIDE RECORDS SUMMARY | 2018-06-18 11:00 | XMS REPORT ---
[...] Status Dosage System Date Date Atorvastatin Calcium [facility] 40287233366 10 MG Oral Active TAKE 1 TABLET BY MOUTH AT BEDTIME. ProAir HFA [facility] 01896645717 108 (90 Base) Active USE 1-2 MCG/ACT PUFFS BY Inhalation MOUTH EVERY 4-6 HOURS Levothyroxine Sodium ND 87740641035 88 MCG Oral Active TAKE 1 TABLET BY MOUTH EVERY MORNING Valsartan-Hydrochlor ND 11053384798 80-12.5 MG Active TAKE 1 othiazide Oral TABLET BY MOUTH EVERY DAY Benzonatate ND 97200799399 200 MG Oral Active TAKE ONE CAPSULE BY MOUTH 3 TIMES A DAY NEEDED FOR COUGH MethylPREDNISolone ND 85493067356 4 MG Oral Active TAKE 6 TABLETS ON DAY 1 DIRECTED ON PACKAGE AND DECREASE BY 1 TAB EACH DAY FOR A TOTAL OF 6 DAYS GlyBURIDE ND 91995336067 5 MG Orally Iraida Active 1 tablet Once a day 2017 breakfast or the first main meal of the day MetFORMIN HCl ER ND 09048153339 750 MG Oral Active TAKE 1 TABLET BY MOUTH 2 TIMES DAILY BEFORE BREAKFAST AND DINNER. Results No Known Results Summary Purpose eClinicalWorks Submission
--- OUTSIDE RECORDS SUMMARY | 2018-06-18 11:00 | XMS REPORT ---
[...] End Date Status Dosage System Date Losartan [facility] 18588512054 50-12.5 MG February 12, Active 1 tablet Potassium-HCTZ Orally Once a 2017 day Results No Known Results Summary Purpose eClinicalWorks Submission
--- OUTSIDE RECORDS SUMMARY | 2018-06-18 11:00 | XMS REPORT ---
[...] End Status Dosage System Date Date Diflucan [facility] 48279278775 150 MG Orally Feb 20Feb Active 1 tablet Once a day 2017 Nitrofurantoin ND 78813773528 100 MG Orally Feb 20Feb Active 1 capsule Macrocrystal BID 2017 12, with food 2018 or milk GlyBURIDE ND 44725521703 5 MG Orally January 21, Active 1 tablet Once a day 2017 with breakfast or the first main meal of the day Levothyroxine ND 10156785020 88 MCG Oral Active TAKE 1 Sodium TABLET BY MOUTH EVERY MORNING Losartan ND 64632414384 50-12.5 MG February 12, Active 1 tablet Potassium-HCTZ Orally Once a 2018 day Valsartan-Hydroch ND 44171022831 80-12.5 MG Oral Active TAKE 1 lorothiazide TABLET BY MOUTH EVERY DAY Results Name Result Date Reference Range Unit Abnormality Flag THINPREP TIS PAP AND HPV mRNA E6/E7, CHLAMYDIA/N.GONORRHOEAE URINALYSIS AUTO W/O SCOPE (32968) ----PROTEIN N [id number] ----pH 5.5 20180220 ----NIT P [id number] ----CONCEPCION 1+ [id number] ----URO 1.0 [id number] ----SPECIFIC GRAVITY 1.015 [id number] ----BLO TR [id number] ----BILIRUBIN N [id number] ----KETONES N [id number] ----GLUCOSE N [id number] Summary Purpose eClinicalWorks Submission
--- OUTSIDE RECORDS SUMMARY | 2018-06-18 11:00 | XMS REPORT ---
:1970 Author Organization eClinicalWorks Care Team Providers Name Role Phone Whitley, Neeru Provider Role Unavailable Allergies No Known [...]
[2018-06-18] MEDS ORDERED: ONDANSETRON 4 MG/2 ML VIAL ONE (13:02)
[2018-06-18] MEDS ORDERED: METHYLPREDNISOLONE 125 MG INJ ONE (13:02)
[2018-06-18] MEDS ORDERED: FENTANYL CITR 100 MCG/2 ML ONE (13:02)
[2018-06-18] MEDS ORDERED: KETOROLAC 30 MG/ML INJ ONE (13:02)
[2018-06-18] MEDS ORDERED: DIPHENHYDRAMINE 50 MG/ML VIAL ONE (13:02)
[2018-06-18] MEDS ORDERED: FAMOTIDINE 20 MG/2 ML VIAL IV ONE (13:03)
[2018-06-18] MEDS ORDERED: NA CHLORIDE 0.9% 0 ML ONE (13:03)
[2018-06-18 13:07] LABS: Absolute Lymphocytes (CBC) 2.9 K/uL (0.7-4.9); Absolute Monocytes 0.5 K/uL (0.1-1.3); Absolute Neutrophil 4.3 K/uL (1.8-8.0); Eosinophils % 3.4 % (0-4.4); Hematocrit 42.4 % (36.0-45.0); Lymphocytes % 36.3 % (15.3-44.8); MCH 28.5 pg (27.0-35.0); MPV 9.4 fL (7.6-11.3); Monocytes % 5.9 % (3.3-12.3); RBC Red Blood Cell Count 5.23 M/uL (3.86-4.86)
[2018-06-18 13:11] LABS: Protime INR 1.08
[2018-06-18 13:15] LABS: Urine Blood NEGATIVE (NEG); Urine Glucose NEGATIVE (NEG); Urine Protein NEGATIVE (NEG); Urine Specific Gravity <1.005 (1.005-1.030)
[2018-06-18] MEDS ORDERED: NA CHLORIDE 0.9% 1,000 ML ONE (13:25)
[2018-06-18 13:29] LABS: ALT/SGPT 76 U/L (12-78); AST/SGOT 42 U/L (15-37); Albumin 3.5 g/dL (3.4-5.0); Alkaline Phosphatase 74 U/L (45-117); BUN Blood Urea Nitrogen 10 mg/dL (7-18); Bicarbonate 29 mmol/L (21-32); Bilirubin Direct 0.1 mg/dL (0-0.2); Bilirubin Total 0.5 mg/dL (0.2-1.0); Glucose Level 103 mg/dL (74-106); Lipase 220 U/L (73-393); Magnesium 2.1 mg/dL (1.8-2.4); NT PRO-BNP 105 pg/mL (<125); Potassium 3.8 mmol/L (3.5-5.1); Protein, Total 7.6 g/dL (6.4-8.2); Sodium Level 137 mmol/L (136-145); Troponin (Emerg Dept Use Only) < 0.02 ng/mL (0.0-0.045)
--- NOTE | 2018-06-18 14:20 | ER ---
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 I feel like something aj1 hit me in the back of my head and my head feels really tight and my lower back is really horrible pain like someone is stabbing me with a ravi knife. I took my meds and I took Advil this morning but it just seems to get worse and worse. It feels like I'm floating when I walk." Denies injury. Ambulated to triage with a steady gait, speech is clear. 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 States that she feels like her right eye is a little droopier than normal, she noticed that this morning. Reports that her headache started when she got up at 0430 this morning. Transition of care: patient was not received from another setting of care. Onset of symptoms was June 18, 2018 at 04:30. Risk Assessment: Do you want to hurt yourself or someone else? Patient reports no desire to harm self or others. Initial Sepsis Screen: Does the patient meet any 2 criteria? No. Patient's initial sepsis screen is negative. Does the patient have a suspected source of infection? No. Patient's initial sepsis screen is negative. Care prior to arrival: None. 11:16 Method Of Arrival: Ambulatory aj1 11:16 Acuity: NOÉ 3 aj1 Triage Assessment: 11:24 Headache History: Denies prior headaches. General: Appears in no apparent distress. aj1 uncomfortable, Behavior is calm, cooperative, appropriate for age. Pain: Complains of pain in occipital area Pain currently is 6 out of 10 on a pain scale. Pain began 6 hours ago Also complains of sensitivity to sound, feels like there is pressure behind her right eye. Neuro: Level of Consciousness is awake, alert, obeys commands. Cardiovascular: Patient's skin is warm and dry. Respiratory: Airway is patent Respiratory effort is even, unlabored, Respiratory pattern is regular, symmetrical. 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: 11:24 LMP N/A - Post-menopause aj1 Historical: - Allergies: 11:24 Bactrim; aj1 11:24 Cephalexin; aj1 11:24 Codeine; aj1 11:24 Iodine; aj1 11:24 Levaquin; aj1 - Home Meds: 11:24 Hydrochlorothiazide Oral [Active]; Glimepiride Oral [Active]; levothyroxine 88 mcg tab aj1 once daily [Active]; metformin 750 mg Oral Tb24 twice a day [Active]; ProAir HFA 90 mcg/actuation inhalation HFAA 2 puffs every 4-6 hours [Active]; losartan-hydrochlorothiazide 50-12.5 mg oral tab 1 tab once daily [Active]; - PMHx: 11:24 Anemia; Asthma; Diabetes - NIDDM; Hypertension; Hypothyroidism; aj1 - Immunization history:: Flu vaccine is not up to date. - Social history:: Smoking status: Patient/guardian denies using tobacco. - Ebola Screening: : Patient denies travel to an Ebola-affected area in the 21 days before illness onset. - Family history:: not pertinent. Screenin:35 Abuse screen: Denies threats or abuse. Nutritional screening: No deficits noted. rb1 Tuberculosis screening: No symptoms or risk factors identified. Fall Risk None identified. Assessment: 11:35 General: Appears uncomfortable, Behavior is calm, cooperative. Pain: Complains of pain rb1 in head and lower back Pain currently is 10 out of 10 on a pain scale. Neuro: Level of Consciousness is awake, alert, obeys commands, Oriented to person, place, time, situation. 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 Gait is steady, Speech is normal, Facial symmetry appears normal, Pupils are PERRLA. Cardiovascular: Capillary refill < 3 seconds is brisk in bilateral fingers. Respiratory: Airway is patent Respiratory effort is even, unlabored, Respiratory pattern is regular, symmetrical. Derm: Skin is pink, warm \\T\\ dry. Musculoskeletal: Range of motion: intact in all extremities. 12:33 Reassessment: Patient appears in no apparent distress at this time. No changes from rb1 previously documented assessment. Son and daughter are at bedside. 13:12 Reassessment: Pt. complained about the Benadryl burning her arm after it was rb1 administered. I immediately flushed her line with 10 ml of NS. No redness was noted at the IV site. Pt. stated, "I feel like I'm going to pass out. I feel like I can't catch my breath." Vital signs were taken BP 120/63, P 77, O2 sat 100% on RA. Elvia from [place] was in the room when this happened. I applied a wet wash cloth to the pt. head and she started feeling better. Pt. then went to CT in stable condition. 14:11 Reassessment: Patient appears in no apparent distress at this time. Patient and/or rb1 family updated on plan of care and expected duration. Pain level reassessed. Patient is alert, oriented x 3, equal unlabored respirations, skin warm/dry/pink. 15:11 Reassessment: Patient appears in no apparent distress at this time. No changes from rb1 previously documented assessment. Family at bedside. 16:11 Reassessment: Patient appears in no apparent distress at this time. Patient and/or rb1 family updated on plan of care and expected duration. Pain level reassessed. Patient is alert, oriented x 3, equal unlabored respirations, skin warm/dry/pink. 17:11 Reassessment: Patient appears in no apparent distress at this time. No changes from rb1 previously documented assessment. Family at bedside. 18:11 Reassessment: Spoke to Tamia at [facility], I was unable to give report because the [facility] room was not clean. Tamia didn't want them to take report because she was afraid the room would not be ready when the pt. arrived. I explained that we were an hour away, but she was still concerned. She will call me back when they start cleaning the room. 18:26 Reassessment: Gave report to ALCIDES Johnson at [facility]. Information from the SBAR was rb1 given. All questions asked and answered. Vital Signs: 11:24 BP 142 / 100; Pulse 77; Resp 18; Temp 97.4; Pulse Ox 100% on R/A; Weight 122.47 kg (R); aj1 Height 5 ft. 4 in. (162.56 cm) (R); Pain 6/10; 13:11 BP 120 / 63; Pulse 77; Resp 20; Pulse Ox 100% on R/A; rb1 13:25 BP 126 / 84; Pulse 88; Resp 17; Pulse Ox 97% on R/A; rb1 14:20 BP 119 / 65; Pulse 70; Resp 18; Pulse Ox 97% on R/A; rb1 15:20 BP 129 / 79; Pulse 74; Resp 16; Pulse Ox 98% on R/A; rb1 16:20 BP 113 / 68; Pulse 75; Resp 17; Pulse Ox 98% on R/A; rb1 17:20 BP 98 / 62; Pulse 79; Resp 19; Pulse Ox 96% on R/A; rb1 18:20 BP 96 / 58; Pulse 78; Resp 17; Pulse Ox 95% on R/A; rb1 11:24 Body Mass Index 46.34 (122.47 kg, 162.56 cm) aj1 13:25 vital signs when pt. returned from CT. rb1 ED Course: 11:01 Patient arrived in ED. sb2 11:02 JOSE MAR is Private Physician. sb2 11:22 Triage completed. aj1 11:24 Arm band placed on Patient placed in an exam room. aj1 11:27 Paige Lopez, RN is Primary Nurse. rb1 11:31 Marco Vargas MD is Attending Physician. manuela 11:35 Patient has correct armband on for positive identification. Bed in low position. Call rb1 light in reach. Side rails up X 1. air sampling and monitoring on. Pulse ox on. NIBP on. Warm blanket given. 12:45 Inserted saline lock: 22 gauge in right forearm, using aseptic technique. ,using rb1 aseptic technique. IV inserted by KRUPA Josue Blood collected. 13:24 CT Head Brain wo Cont In Process Unspecified. EDMS 13:24 CT Stone Protocol In Process Unspecified. EDMS 13:25 Head angio In Process Unspecified. EDMS 13:38 EKG done, by evs tech. reviewed by Marco Vargas MD. sm3 15:48 XRAY Chest (1 view) In Process Unspecified. EDMS 19:10 No provider procedures requiring assistance completed. Patient transferred, IV remains rb1 in place. Administered Medications: 12:32 CANCELLED (Duplicate Order): Benadryl 25 mg IVP once manuela 12:48 Drug: TORadol 30 mg Route: IVP; Site: right forearm; rb1 13:40 Follow up: Response: No adverse reaction; Pain is decreased rb1 12:55 Drug: Zofran 4 mg Route: IVP; Site: right forearm; rb1 13:40 Follow up: Response: No adverse reaction; Nausea is decreased rb1 13:00 Drug: SOLU-Medrol 125 mg Route: IVP; Site: right forearm; rb1 13:40 Follow up: Response: No adverse reaction rb1 13:05 Drug: Benadryl 50 mg Route: IVP; Site: right forearm; rb1 13:40 Follow up: Response: No adverse reaction rb1 13:11 Drug: Pepcid 20 mg Route: IVP; Site: right forearm; rb1 13:40 Follow up: Response: No adverse reaction rb1 13:30 Drug: NS 0.9% 1000 ml Route: IV; Rate: 1 bolus; Site: right forearm; rb1 14:52 Follow up: IV Status: Completed infusion rb1 15:20 Drug: Macrobid 100 mg Route: PO; rb1 15:50 Follow up: Response: No adverse reaction rb1 15:20 Drug: Keppra 1000 mg Route: IV; Rate: per protocol; Site: right forearm; rb1 15:20 Drug: NS 0.9% 100 ml Route: IV; Rate: bolus; Site: right forearm; rb1 17:02 Not Given (Patient Refused): fentaNYL (PF) 50 mcg IVP once rb1 Outcome: 14:19 ER care complete, transfer ordered by MD. roy 19:10 Patient left the ED. rb1 19:10 Transferred by ground EMS to [facility], Transfer form completed. rb1 19:10 Condition: stable 19:10 Instructed on the need for transfer. Signatures: Dispatcher [employer] EDMS Donya Haji RN RN aj1 Marco Vargas MD MD cha Barber, Rebecca, RN RN rb1 Dottie White sb2 Kera Verdugo sm3 Corrections: (The following items were deleted from the chart) 19:48 19:29 Patient left the ED. rb1 rb1
--- NOTE | 2018-06-18 14:21 | EDPHYS ---
Physician Documentation [facility] Name: Chantal Stout Age: 48 yrs Sex: Female : 1970 Arrival Date: 06/18/2018 Time: 11:01 Bed 14 Private MD: JOSE MAR ED Physician Marco Vargas HPI: 06/18 12:19 This 48 yrs old Female presents to ER via Ambulatory with complaints of manuela Headache, Low Back Pain. 12:19 The patient complains of pain to the left occipital area, left base of the skull, right manuela occipital area and right base of the skull. The patient describes the headache as constant. Onset: The symptoms/episode began/occurred this morning. Associated signs and symptoms: The patient has no apparent associated signs or symptoms. Severity of symptoms: At its worst the pain was moderate, in the emergency department the pain is unchanged. Headache History: The patient has had previous headaches and this one is different than previous episodes. The symptoms are alleviated by nothing. the symptoms are aggravated by lights, movement, noise. The patient has experienced similar episodes in the past, a few times, but today's symptoms are worse. 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 LMP N/A - Post-menopause aj1 Historical: - Allergies: 11:24 Bactrim; aj1 11:24 Cephalexin; aj1 11:24 Codeine; aj1 11:24 Iodine; aj1 11:24 Levaquin; aj1 - Home Meds: 11:24 Hydrochlorothiazide Oral [Active]; Glimepiride Oral [Active]; levothyroxine 88 mcg tab aj1 once daily [Active]; metformin 750 mg Oral Tb24 twice a day [Active]; ProAir HFA 90 mcg/actuation inhalation HFAA 2 puffs every 4-6 hours [Active]; losartan-hydrochlorothiazide 50-12.5 mg oral tab 1 tab once daily [Active]; - PMHx: 11:24 Anemia; Asthma; Diabetes - NIDDM; Hypertension; Hypothyroidism; aj1 - Immunization history:: Flu vaccine is not up to date. - Social history:: Smoking status: Patient/guardian denies using tobacco. - Ebola Screening: : Patient denies travel to an Ebola-affected area in the 21 days before illness onset. - Family history:: not pertinent. ROS: 12:19 Constitutional: Negative for fever, chills, and weight loss, Eyes: Negative for injury, manuela pain, redness, and discharge, ENT: Negative for injury, pain, and discharge, Neck: Negative for injury, pain, and swelling, Cardiovascular: Negative for chest pain, palpitations, and edema, Respiratory: Negative for shortness of breath, cough, wheezing, and pleuritic chest pain, Abdomen/GI: Negative for abdominal pain, nausea, vomiting, diarrhea, and constipation, : Negative for injury, bleeding, discharge, and swelling, MS/Extremity: Negative for injury and deformity, Skin: Negative for injury, rash, and discoloration, Neuro: Negative for headache, weakness, numbness, tingling, and seizure, Psych: Negative for depression, anxiety, suicide ideation, homicidal ideation, and hallucinations, Allergy/Immunology: Negative for hives, rash, and allergies, Endocrine: Negative for neck swelling, polydipsia, polyuria, polyphagia, and marked weight changes, Hematologic/Lymphatic: Negative for swollen nodes, abnormal bleeding, and unusual bruising. 12:19 Back: Positive for decreased range of motion, pain at rest, pain with movement, of the right low back. Exam: 12:19 Constitutional: This is a well developed, well nourished patient who is awake, alert, manuela and in no acute distress. Head/Face: Normocephalic, atraumatic. Eyes: Pupils equal round and reactive to light, extra-ocular motions intact. Lids and lashes normal. Conjunctiva and sclera are non-icteric and not injected. Cornea within normal limits. Periorbital areas with no swelling, redness, or edema. ENT: Nares patent. No nasal discharge, no septal abnormalities noted. Tympanic membranes are normal and external auditory canals are clear. Oropharynx with no redness, swelling, or masses, exudates, or evidence of obstruction, uvula midline. Mucous membranes moist. Neck: Trachea midline, no thyromegaly or masses palpated, and no cervical lymphadenopathy. Supple, full range of motion without nuchal rigidity, or vertebral point tenderness. No Meningismus. Chest/axilla: Normal chest wall appearance and motion. Nontender with no deformity. No lesions are appreciated. Cardiovascular: Regular rate and rhythm with a normal S1 and S2. No gallops, murmurs, or rubs. Normal PMI, no JVD. No pulse deficits. Respiratory: Lungs have equal breath sounds bilaterally, clear to auscultation and percussion. No rales, rhonchi or wheezes noted. No increased work of breathing, no retractions or nasal flaring. Abdomen/GI: Soft, non-tender, with normal bowel sounds. No distension or tympany. No guarding or rebound. No evidence of tenderness throughout. Female : Normal external genitalia. Skin: Warm, dry with normal turgor. Normal color with no rashes, no lesions, and no evidence of cellulitis. MS/ Extremity: Pulses equal, no cyanosis. Neurovascular intact. Full, normal range of motion. Neuro: Awake and alert, GCS 15, oriented to person, place, time, and situation. Cranial nerves II-XII grossly intact. Motor strength 5/5 in all extremities. Sensory grossly intact. Cerebellar exam normal. Normal gait. Psych: Awake, alert, with orientation to person, place and time. Behavior, mood, and affect are within normal limits. 12:19 Neck: ROM/movement: is normal, no acute changes, Meningeal signs: are not present, Kernig's sign is negative, Brudzinski's sign is negative. 12:19 Back: pain, that is moderate, ROM is painful, normal spinal alignment noted, CVA tenderness, is absent, vertebral tenderness, is not appreciated, muscle spasm, is not present. Vital Signs: 11:24 BP 142 / 100; Pulse 77; Resp 18; Temp 97.4; Pulse Ox 100% on R/A; Weight 122.47 kg (R); aj1 Height 5 ft. 4 in. (162.56 cm) (R); Pain 6/10; 13:11 BP 120 / 63; Pulse 77; Resp 20; Pulse Ox 100% on R/A; rb1 13:25 BP 126 / 84; Pulse 88; Resp 17; Pulse Ox 97% on R/A; rb1 14:20 BP 119 / 65; Pulse 70; Resp 18; Pulse Ox 97% on R/A; rb1 15:20 BP 129 / 79; Pulse 74; Resp 16; Pulse Ox 98% on R/A; rb1 16:20 BP 113 / 68; Pulse 75; Resp 17; Pulse Ox 98% on R/A; rb1 17:20 BP 98 / 62; Pulse 79; Resp 19; Pulse Ox 96% on R/A; rb1 18:20 BP 96 / 58; Pulse 78; Resp 17; Pulse Ox 95% on R/A; rb1 11:24 Body Mass Index 46.34 (122.47 kg, 162.56 cm) aj1 13:25 vital signs when pt. returned from CT. rb1 MDM: 11:31 Patient medically screened. [facility] 12:25 Data reviewed: vital signs, nurses notes, lab test result(s), EKG, radiologic studies, [facility] CT scan, plain films. 06/18 12:18 Order name: Basic Metabolic Panel; Complete Time: 14:14 [facility] 06/18 12:18 Order name: CBC with Diff; Complete Time: 14:14 [facility] 06/18 12:18 Order name: LFT's; Complete Time: 14:14 [facility] 06/18 12:18 Order name: Magnesium; Complete Time: 14:14 [facility] 06/18 12:18 Order name: NT PRO-BNP; Complete Time: 14:14 [facility] 06/18 12:18 Order name: PT-INR; Complete Time: 14:14 [facility] 06/18 12:18 Order name: Troponin (emerg Dept Use Only); Complete Time: 14:14 [facility] 06/18 12:18 Order name: XRAY Chest (1 view) [facility] 06/18 12:18 Order name: CT Head Brain wo Cont [facility] 06/18 12:18 Order name: CT Stone Protocol [facility] 06/18 12:18 Order name: Urine Culture [facility] 06/18 12:18 Order name: Lipase; Complete Time: 14:14 [facility] 06/18 12:22 Order name: Head angio [facility] 06/18 13:11 Order name: Urine Dipstick--Ancillary (enter results); Complete Time: 14:14 06/18 12:18 Order name: EKG; Complete Time: 12:19 [facility] 06/18 12:18 Order name: Cardiac monitoring; Complete Time: 13:15 [facility] 06/18 12:18 Order name: EKG - Nurse/Tech; Complete Time: 13:56 [facility] 06/18 12:18 Order name: IV Saline Lock; Complete Time: 13:15 [facility] 06/18 12:18 Order name: Labs collected and sent; Complete Time: 13:15 [facility] 06/18 12:18 Order name: O2 Per Protocol; Complete Time: 13:15 [facility] 06/18 12:18 Order name: O2 Sat Monitoring; Complete Time: 13:15 [facility] 06/18 12:18 Order name: Urine Dipstick-Ancillary (obtain specimen); Complete Time: 13:14 [facility] Administered Medications: 12:32 CANCELLED (Duplicate Order): Benadryl 25 mg IVP once [facility] 12:48 Drug: TORadol 30 mg Route: IVP; Site: right forearm; rb1 13:40 Follow up: Response: No adverse reaction; Pain is decreased rb1 12:55 Drug: Zofran 4 mg Route: IVP; Site: right forearm; rb1 13:40 Follow up: Response: No adverse reaction; Nausea is decreased rb1 13:00 Drug: SOLU-Medrol 125 mg Route: IVP; Site: right forearm; rb1 13:40 Follow up: Response: No adverse reaction rb1 13:05 Drug: Benadryl 50 mg Route: IVP; Site: right forearm; rb1 13:40 Follow up: Response: No adverse reaction rb1 13:11 Drug: Pepcid 20 mg Route: IVP; Site: right forearm; rb1 13:40 Follow up: Response: No adverse reaction rb1 13:30 Drug: NS 0.9% 1000 ml Route: IV; Rate: 1 bolus; Site: right forearm; rb1 14:52 Follow up: IV Status: Completed infusion rb1 15:20 Drug: Macrobid 100 mg Route: PO; rb1 15:50 Follow up: Response: No adverse reaction rb1 15:20 Drug: Keppra 1000 mg Route: IV; Rate: per protocol; Site: right forearm; rb1 15:20 Drug: NS 0.9% 100 ml Route: IV; Rate: bolus; Site: right forearm; rb1 17:02 Not Given (Patient Refused): fentaNYL (PF) 50 mcg IVP once rb1 Disposition: 06/18/18 14:[address] [facility]. 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 - Reason for transfer: Higher level of care. - Accepting physician is to [facility], neuro. - Condition is Fair. - Problem is new. - Symptoms are unchanged. Signatures: Dispatcher [employer] Donya Taylor RN RN aj1 Marco Vargas MD MD cha Barber, Rebecca RN RN rb1 Corrections: (The following items were deleted from the chart) 12:32 12:32 Benadryl 25 mg IVP once ordered. [facility] 14:20 14:19 06/18/2018 14:[address] [facility]. 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 Reason for transfer: Higher level of care. Accepting physician is to [facility]. Condition is Fair. Problem is new. Symptoms are unchanged. [facility] 14:35 14:20 06/18/2018 14:[address] [facility]. 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 Reason for transfer: Higher level of care. Accepting physician is to [facility]. Condition is Fair. Problem is new. Symptoms are unchanged. [facility] 19:29 14:35 06/18/2018 14:[address] [facility]. 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 Reason for transfer: Higher level of care. Accepting physician is to [facility]. Condition is Fair. Problem is new. Symptoms are unchanged. [facility]
[2018-06-18] MEDS ORDERED: LEVETIRACETAM 500 MG/5 ML VIAL IV ONE (15:04)
[2018-06-18] MEDS ORDERED: NITROFURAN MACRO 100 MG CAP PO ONE (15:05)
[2018-06-18] MEDS ORDERED: NA CHLORIDE 0.9% 100 ML IV ONE (15:19)
[2018-06-18 20:23] VITALS: TEMP 97.4
[2018-06-18 20:33] VITALS: BP 96/58; O2SAT 95
--- NOTE | 2018-06-19 07:12 | EKG ---
Test Date: 2018-06-18 Test Time: 13:34:48 Senior Operator: SANGEETA MEASUREMENT RESULTS: Intervals: Rate: 77 CA: 158 QRSD: 88 QT: 434 QTc: 491 [place]: P: 66 CA: 158 QRS: 61 T: 24 INTERPRETIVE STATEMENTS: Normal sinus rhythm Low voltage QRS Prolonged QT Abnormal ECG Compared to ECG 06/10/2018 09:25:41 Prolonged QT interval now present Electronically Signed On 06-19-18 07:11:10 PROGRAM TECHNICIAN by Raymond Torres
--- NOTE | 2018-06-19 08:42 | RAD REPORT ---
EXAM DESCRIPTION: CT - Stone Protocol - 06/18/2018 1:24 pm CLINICAL HISTORY: Abdominal pain. Flank pain COMPARISON: March 2018 TECHNIQUE: Computed axial tomography of the abdomen pelvis was obtained without oral or IV contrast. Lack of IV and oral contrast limits evaluation of solid organs, bowel, and vessels. Coronal reformat valerie images were obtained and reviewed. All CT scans are performed using dose optimization technique as appropriate and may include automated exposure control or mA/KV adjustment according to patient size. FINDINGS: The examination was not dictated June 18, 2018 secondary to technical factors. A renal calculus is not seen. An ureteral calculus is not noted. A bladder calculus is not present. The liver is enlarged with fatty infiltration. Spleen, pancreas and adrenals appear grossly normal There is no evidence of diverticulitis. The appendix appears normal Spondylosis involves the lumbar spine resulting spinal stenosis. Laxity of the anterior abdominal wall IMPRESSION: Negative for a genitourinary calculus Hepatomegaly with fatty infiltration
--- NOTE | 2018-06-19 09:45 | RAD REPORT ---
EXAM DESCRIPTION: CT - Head Brain Wo Cont - 06/18/2018 1:24 pm CLINICAL HISTORY: Headache COMPARISON: 2014 TECHNIQUE: Computed axial tomography of the head was obtained. IV contrast was not requested. All CT scans are performed using dose optimization technique as appropriate and may include automated exposure control or mA/KV adjustment according to patient size. FINDINGS: An approximately 25 millimeter mass is present within the sphenoid sinus extending into th e sella turcica eroding the anterior wall. An intracranial bleed is not seen . The ventricles are normal in caliber. No extra-axial fluid collection is noted. Fluid within the sinuses/ mastoids is not seen. IMPRESSION: A 25 millimeter mass within the sphenoid sinus extending into the sella turcica eroding the anterior wall may represent lymphoma, meningioma, or other mass. MRI is recommended
--- NOTE | 2018-06-19 11:18 | RAD REPORT ---
EXAM DESCRIPTION: Julissa Single View06/18/2018 3:47 pm CLINICAL HISTORY: Cough COMPARISON: June 04, 2018 FINDINGS: The lungs appear clear of acute infiltrate. The heart is normal size IMPRESSION: No acute abnormalities displayed
--- NOTE | 2018-06-19 18:41 | RAD REPORT ---
EXAM DESCRIPTION: CTHead angio06/18/2018 1:25 pm CLINICAL HISTORY: Headache COMPARISON: None TECHNIQUE: CT angiogram of the head was obtained. 50 cc Isovue 370 was intravenously. 3D MIPS recons truction performed All CT scans are performed using dose optimization technique as appropriate and may include automated exposure control or mA/KV adjustment according to patient size. FINDINGS: The right vertebral artery is hypoplastic and terminates into the right pica. origin of the posterior cerebral arteries is present. The internal carotid, anterior and middle cerebral arteries are normal caliber. An aneurysm is not se en. A significant stenosis is not noted. A sphenoid sinus/ sella turcica mass is again demonstrated IMPRESSION: No acute abnormality displayed
== END 2018-06-18 19:29 | disposition short-term general hospital (02) ==
LOC: ER 10:58
DX: N39.0 Urinary tract infection, site not specified (principal); E23.6 Other disorders of pituitary gland; R51 Headache; E11.9 Type 2 diabetes mellitus without complications; E03.9 Hypothyroidism, unspecified; Z88.1 Allergy status to other antibiotic agents; Z88.5 Allergy status to narcotic agent
CPT/HCPCS: 36415; 70450; 70496; 71045; 74176; 76377; 80048; 80076; 81003; 83690; 83735; 83880; 84484; 85025; 85610; 87086; 87088; 93005; 96361; 96374; 96375; 99285; J1953; J2405; J2930; J3010; J7030; Q9967

== ENCOUNTER 2018-06-26 05:05 | Emergency (ER) | payer BC ==
--- OUTSIDE RECORDS SUMMARY | 2018-06-26 05:08 | XMS REPORT ---
[...] Status Dosage System Date Date Atorvastatin Calcium [facility] [id number] 10 MG Oral Active TAKE 1 TABLET BY MOUTH AT BEDTIME. ProAir HFA [facility] [id number] 108 (90 Base) Active USE 1-2 MCG/ACT PUFFS BY Inhalation MOUTH EVERY 4-6 HOURS Levothyroxine Sodium ND 07058305383 88 MCG Oral Active TAKE 1 TABLET BY MOUTH EVERY MORNING Valsartan-Hydrochlor ND 41126459298 80-12.5 MG Active TAKE 1 othiazide Oral TABLET BY MOUTH EVERY DAY Benzonatate ND 00319603209 200 MG Oral Active TAKE ONE CAPSULE BY MOUTH 3 TIMES A DAY NEEDED FOR COUGH MethylPREDNISolone ND 96986139264 4 MG Oral Active TAKE 6 TABLETS ON DAY 1 DIRECTED ON PACKAGE AND DECREASE BY 1 TAB EACH DAY FOR A TOTAL OF 6 DAYS GlyBURIDE ND 56212704103 5 MG Orally Iraida Active 1 tablet Once a day 2017 breakfast or the first main meal of the day MetFORMIN HCl ER ND 25438536493 750 MG Oral Active TAKE 1 TABLET BY MOUTH 2 TIMES DAILY BEFORE BREAKFAST AND DINNER. Results No Known Results Summary Purpose eClinicalWorks Submission
--- OUTSIDE RECORDS SUMMARY | 2018-06-26 05:08 | XMS REPORT | Clinical Summary ---
:1970 Author Organization [facility] Address [address] [place] [address] Care Team Providers Name Role Phone Pcp, No Primary Care Provider Unavailable Allergies Active Allergy Reactions Severity Noted Date Comments Ceftriaxone Rash Low 06/21/2018 Medications Medication Sig Dispensed Refills Start Date End Date Status levothyroxine Take 88 mcg by 0 Active (SYNTHROID, mouth Every LEVOTHROID) 88 MCG morning on an tablet empty stomach. metFORMIN Take 750 mg by 0 Active (GLUCOPHAGE) 500 MG mouth 2 (two) tablet times daily with breakfast and dinner. glyBURIDE (DIABETA) Take 5 mg by 0 Active 5 MG tablet mouth daily. amoxicillin-clavulan Take 1 tablet 20 tablet 0 06/25/2018 Active ate (AUGMENTIN) by mouth 2 8 875-125 mg per (two) times tablet daily for 10 days. sod 1 packet by 3 packet 5 06/25/2018 Active ojyth-chxept-tlzhni Nasal route 2 bottle (NEILMED (two) times SINUS RINSE daily. COMPLETE) pkdv acetaminophen-codein Take 1 tablet 30 tablet 0 06/25/2018 Active e (TYLENOL #3) by mouth every 8 300-30 mg per tablet 4 (four) hours as needed for up to 10 days. Max Daily Amount: 6 tablets hydrocortisone Take 1 tablet 20 tablet 0 06/25/2018 Active (CORTEF) 10 MG (10 mg total) 8 tablet by mouth 2 (two) times daily for 10 days. pantoprazole Take 1 tablet 30 tablet 0 06/25/2018 Active (PROTONIX) 40 MG (40 mg total) 9 tablet by mouth daily for 30 days. losartan (COZAAR) 50 Take 1 tablet 30 tablet 0 06/25/2018 Active MG tablet (50 mg total) 9 by mouth daily for 30 days. losartan-hydroCHLORO Take 1 tablet 0 Discontinued thiazide (HYZAAR) by mouth daily. 8 50-12.5 mg per tablet amLODIPine (NORVASC) Take 1 tablet 30 tablet 0 06/25/2018 Discontinued 10 MG tablet (10 mg total) 8 by mouth daily for 30 days. 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 2017 Encounters Date Type Specialty Care Team Description 06/24/2018 Surgery Alex Ruano ENDOSCOPIC MD CRANIOTOMY,REMOVAL TRANSSPHENOIDAL PITUITARY TUMOR 06/24/2018 Anesthesia Event Acacia Ogdne 06/24/2018 Anesthesia Event Yosvany Hanna MD 06/18/2018 - Hospital Encounter General Internal Athreya, Nonintractable headache, unspecified chronicity pattern, unspecified headache type; 06/25/2018 Medicine Alycia Sparks MD Mass in region of sella turcica present on magnetic resonance imaging; Allen Pituitary macroadenoma (HCC); Kim Pitt Acquired hypothyroidism MD Aline Seay Sahar, MD Mezrahi, Maria, MD 06/18/2018 Travel after 06/25/2017 Family History Medical History Relation Name Comments Hypertension Father Diabetes Mother Hypertension Mother Diabetes Other Son Relation Name Status Comments Father Mother Other Son Alive Social History Tobacco Use Types Packs/Day Years Used Date Former Smoker Smokeless Tobacco: Former User Alcohol Use Drinks/Week oz/Week Comments Yes Alcohol Habits Answer Date Recorded How often do you have a drink containing alcohol? Monthly or less 06/18/2018 How many drinks containing alcohol do you have on a Not asked typical day when you are drinking? How often do you have six or more drinks on one Not asked occasion? Sex Assigned at Date Recorded Not on file Job Start Date Occupation Industry Not on file Not on file Not on file Travel History Travel Start Travel End No recent travel history available. Last Filed Vital Signs Vital Sign Reading Time Taken Blood Pressure 122/74 06/25/2018 4:00 PM MANAGER CARE Pulse 61 06/25/2018 4:00 PM MANAGER CARE Temperature 36.1 C (97 F) 06/25/2018 4:00 PM MANAGER CARE Respiratory Rate 18 06/25/2018 4:00 PM MANAGER CARE Oxygen Saturation 96% 06/25/2018 4:00 PM MANAGER CARE Inhaled Oxygen Concentration - - Weight 122.5 kg (270 lb) 06/18/2018 9:00 PM MANAGER CARE Height 162.6 cm (5' 4") 06/18/2018 9:00 PM MANAGER CARE Body Mass Index 46.35 06/18/2018 9:00 PM MANAGER CARE Plan of Treatment Not on file Implants Implanted Type Area Talent Acquisition Assistant Device Shelf Model / Identifier Expiration Serial / Date Lot Sealant Durasl Spine 5ml [id number] - [id number] Cement/Fi N/A: INTEGRA LIFESCI [id number] / Implanted: Qty: 1 on 06/24/2018 by Alex Ruano MD ller/Valentine Head / sive [id number] Flseal Vhsd Full Strlprep 10ml [id number] - [id number] Cement/Fi N/A: FUNES: BIOSCI 11/18/2019 [id number] / Implanted: Qty: 1 on 06/24/2018 by Alex Ruano MD ller/Valentine Head / sive [id number] Graft Matrix Dura 1x3 [id number] - [id number] Neuro N/A: MEDTRONIC 02/20/2020 [id number] / Implanted: Qty: 1 on 06/24/2018 by Alex Ruano MD Head SURGICAL / NAVIGATION [id number] Procedures Procedure Name Priority Date/Time Associated Comments Diagnosis POCT-GLUCOSE METER Routine 06/25/2018 4:10 PM Results for this MANAGER CARE procedure are in the results section. POCT-GLUCOSE METER Routine 06/25/2018 12:02 PM Results for this MANAGER CARE procedure are in the results section. POCT-GLUCOSE METER Routine 06/25/2018 8:02 AM Results for this MANAGER CARE procedure are in the results section. OSMOLALITY, URINE STAT 06/25/2018 4:23 AM Results for this MANAGER CARE procedure are in the results section. SPECIFIC GRAVITY, STAT 06/25/2018 4:23 AM Results for this URINE MANAGER CARE procedure are in the results section. POCT-GLUCOSE METER Routine 06/24/2018 9:56 PM Results for this MANAGER CARE procedure are in the results section. POCT-GLUCOSE METER Routine 06/24/2018 4:57 PM Results for this MANAGER CARE procedure are in the results section. BASIC METABOLIC STAT 06/24/2018 4:50 PM Results for this PANEL (7) MANAGER CARE procedure are in the results section. POCT-GLUCOSE METER Routine 06/24/2018 11:09 AM Results for this MANAGER CARE procedure are in the results section. POCT-GLUCOSE METER Routine 06/24/2018 9:38 AM Results for this MANAGER CARE procedure are in the results section. ENDOSCOPIC SINUS 06/24/2018 7:00 AM Pituitary adenoma SURGERY,REPAIR CSF MANAGER CARE (HCC) [place]AK Special Needs (STEALTH NAVIGATION, LUMBAR DRAIN SET, LANDMARK CT SCAN ON ) TURBINECTOMY,NASAL 06/24/2018 7:00 AM MANAGER CARE Pituitary adenoma (HCC) Special Needs (STEALTH NAVIGATION, LUMBAR DRAIN SET, LANDMARK CT SCAN ON ) ENDOSCOPIC SINUS 06/24/2018 7:00 AM MANAGER CARE Pituitary adenoma SURGERY,ETHMOIDECTOMY W/ (HCC) SPHENOIDOTOMY Special Needs (STEALTH NAVIGATION, LUMBAR DRAIN SET, LANDMARK CT SCAN ON ) PROCEDURE W/ STEALTH 06/24/2018 7:00 AM MANAGER CARE Pituitary adenoma (HCC) Special Needs (STEALTH NAVIGATION, LUMBAR DRAIN SET, LANDMARK CT SCAN ON ) ENDOSCOPIC CRANIOTOMY,REMOVAL 06/24/2018 7:00 AM MANAGER CARE Pituitary adenoma ( HCC) TRANSSPHENOIDAL PITUITARY TUMOR Special Needs (STEALTH NAVIGATION, LUMBAR DRAIN SET, LANDMARK CT SCAN ON ) POCT-GLUCOSE METER Routine 06/24/2018 5:42 AM MANAGER CARE SCREEN, URINE STAT 06/24/2018 5:16 AM MANAGER CARE BASIC METABOLIC PANEL (7) Routine 06/24/2018 5:16 AM MANAGER CARE CBC W/PLT COUNT & AUTO Routine 06/24/2018 5:07 AM MANAGER CARE Results for this DIFFERENTIAL procedure are in the results section. PT/APTT Routine 06/24/2018 5:07 AM MANAGER CARE CBC W/PLT COUNT & AUTO Routine 06/24/2018 5:07 AM MANAGER CARE Results for this DIFFERENTIAL procedure are in the results section. POCT-GLUCOSE METER Routine 06/23/2018 9:21 PM MANAGER CARE POCT-GLUCOSE METER Routine 06/23/2018 4:31 PM MANAGER CARE BASIC METABOLIC PANEL (7) Routine 06/23/2018 4:13 PM MANAGER CARE POCT-GLUCOSE METER Routine 06/23/2018 8:30 AM MANAGER CARE POCT-GLUCOSE METER Routine 06/22/2018 11:34 PM MANAGER CARE POCT-GLUCOSE METER Routine 06/22/2018 8:21 PM MANAGER CARE POCT-GLUCOSE METER Routine 06/22/2018 5:07 PM MANAGER CARE POCT-GLUCOSE METER Routine 06/22/2018 11:49 AM MANAGER CARE POCT-GLUCOSE METER Routine 06/22/2018 8:30 AM MANAGER CARE POCT-GLUCOSE METER Routine 06/21/2018 9:09 PM MANAGER CARE POCT-GLUCOSE METER Routine 06/21/2018 5:20 PM MANAGER CARE POCT-GLUCOSE METER Routine 06/21/2018 11:06 AM MANAGER CARE ECHOCARDIOGRAM REPORT - SCAN 06/21/2018 9:21 AM MANAGER CARE FOLLICLE STIMULATING HORMONE Routine 06/21/2018 9:11 AM MANAGER CARE Results for this (FSH) procedure are in the results section. INSULIN-LIKE GROWTH FACTOR Routine 06/21/2018 9:11 AM MANAGER CARE ACTH Routine 06/21/2018 9:11 AM MANAGER CARE CORTISOL Routine 06/21/2018 9:11 AM MANAGER CARE POCT-GLUCOSE METER Routine 06/21/2018 7:[address] BRAIN WITHOUT IV CONTRAST TERI 06/20/2018 9:48 PM MANAGER CARE POCT-GLUCOSE METER Routine 06/20/2018 8:48 PM MANAGER CARE 2D ECHO W/ DOPPLER Routine 06/20/2018 6:40 PM MANAGER CARE Results for this (CW/PW/COLOR) procedure are in the results section. POCT-GLUCOSE METER Routine 06/20/2018 4:48 PM MANAGER CARE POCT-GLUCOSE METER Routine 06/20/2018 1:06 PM MANAGER CARE POCT-GLUCOSE METER Routine 06/20/2018 7:21 AM MANAGER CARE POCT-GLUCOSE METER Routine 06/20/2018 5:22 AM MANAGER CARE BASIC METABOLIC PANEL (7) STAT 06/20/2018 5:08 AM MANAGER CARE POCT-GLUCOSE METER Routine 06/20/2018 12:[address]/CTA CAROTID TERI 06/19/2018 10:[address]/CTA BRAIN TERI 06/19/2018 10:46 PM MANAGER CARE POCT-GLUCOSE METER Routine 06/19/2018 9:19 PM MANAGER CARE POCT-GLUCOSE METER Routine 06/19/2018 5:06 PM MANAGER CARE POCT-GLUCOSE METER Routine 06/19/2018 3:03 PM MANAGER CARE POCT-GLUCOSE METER Routine 06/19/2018 12:27 PM MANAGER CARE SCREEN, URINE Routine 06/19/2018 11:54 AM MANAGER CARE OSMOLALITY, URINE Routine 06/19/2018 11:54 AM MANAGER CARE RAPID DRUG SCREEN, URINE Routine 06/19/2018 11:54 AM MANAGER CARE CBC W/PLT COUNT & AUTO Routine 06/19/2018 11:49 AM MANAGER CARE Results for this DIFFERENTIAL procedure are in the results section. INSULIN-LIKE GROWTH FACTOR Routine 06/19/2018 11:49 AM MANAGER CARE OSMOLALITY, SERUM Routine 06/19/2018 11:49 AM MANAGER CARE T4, FREE Routine 06/19/2018 11:49 AM MANAGER CARE C-REACTIVE PROTEIN Routine 06/19/2018 11:49 AM MANAGER CARE HIV-1 ANTIGEN WITH HIV-1/2 Routine 06/19/2018 11:49 AM MANAGER CARE Results for this ANTIBODY procedure are in the results section. RPR Routine 06/19/2018 11:49 AM MANAGER CARE CBC W/PLT COUNT & AUTO Routine 06/19/2018 11:49 AM MANAGER CARE Results for this DIFFERENTIAL procedure are in the results section. POCT-GLUCOSE METER Routine 06/19/2018 9:25 AM MANAGER CARE POCT-GLUCOSE METER Routine 06/19/2018 5:51 AM MANAGER CARE GROWTH HORMONE Routine 06/19/2018 3:49 AM MANAGER CARE LUTEINIZING HORMONE (LH) Routine 06/19/2018 3:49 AM MANAGER CARE ACTH Routine 06/19/2018 3:49 AM MANAGER CARE PROLACTIN Routine 06/19/2018 3:49 AM MANAGER CARE MR BRAIN WITHOUT & WITH IV STAT 06/19/2018 2:25 AM MANAGER CARE Results for this CONTRAST procedure are in the results section. HEMOGLOBIN A1C Routine 06/19/2018 12:39 AM MANAGER CARE TSH/FREE T4 IF INDICATED Routine 06/18/2018 11:32 PM MANAGER CARE BASIC METABOLIC PANEL (7) STAT 06/18/2018 11:32 PM MANAGER CARE URINALYSIS W/ REFLEX URINE Routine 06/18/2018 10:27 PM MANAGER CARE Results for this CULTURE procedure are in the results section. after 06/25/2017 Results POC-Glucose meter (06/25/2018 4:10 PM MANAGER CARE)Only the most recent of32 resultswithin the time period is included. POC-Glucose Meter 244 (H)Comment: TESTED AT 70 - 110 mg/dL [place] [id number] [facility] [id number] Specimen Blood Performing Organization Address City/State/Zipcode Phone Number [address] [address] CENTER Specific gravity, urine (06/25/2018 4:23 AM MANAGER CARE) Specific [place], UA 1.010 1.001 - 1.035 [facility] Specimen Urine - Urine, Fonseca Performing Organization Address [facility] Phone Number [address] [address] [phone] [place] Osmolality, urine (06/25/2018 4:23 AM MANAGER CARE)Only the most recent of2 resultswithin the time period is included. Osmolality, Ur 340 40-1,400 mOsm/kg [facility] Specimen Urine - Urine, Fonseca Performing Organization Address [facility] Phone Number [address] [address] [phone] [place] Basic Metabolic Panel (06/24/2018 4:50 PM MANAGER CARE)Only the most recent of5 resultswithin the time period is included. Sodium 137 136 - 145 meq/L [facility] Potassium 4.6 3.5 - 5.1 meq/L [facility] Chloride 102 98 - 107 meq/L [facility] CO2 26 22 - 29 meq/L [facility] BUN 14 7 - 21 mg/dL [facility] Creatinine 0.78 0.57 - 1.25 mg/dL [facility] Glucose 246 (H) 70 - 105 mg/dL [facility] Calcium 8.7 8.4 - 10.2 mg/dL [facility] EGFR 79Comment: ESTIMATED GFR IS mL/min/1.73 sq m [facility] NOT ACCURATE CREATININE [facility] CLEARANCE IN PREDICTING GLOMERULAR FILTRATION RATE. ESTIMATED GFR IS NOT APPLICABLE FOR DIALYSIS PATIENTS. Specimen Blood - Arm, Right Performing Organization Address [facility] Phone Number [address] [address] CENTER Screen, urine (06/24/2018 5:16 AM MANAGER CARE)Only the most recent of2 resultswithin the time period is included. Preg Test, Ur Negative [facility] Specimen Urine Performing Organization Address City/[facility] Phone Number [facility] [address] [place] [address] [phone] CENTER PT/aPTT (06/24/2018 5:07 AM MANAGER CARE) Protime 13.8 11.7 - 14.7 seconds [facility] INR 1.1 <=5.9 [facility] PTT 32.0 22.5 - 36.0 seconds [facility] Specimen Blood Narrative Performed At RECOMMENDED COUMADIN/WARFARIN INR THERAPY [facility] RANGES STANDARD DOSE: 2.0 - 3.0 Includes: PROPHYLAXIS for venous thrombosis, systemic embolization; TREATMENT for venous thrombosis and/or pulmonary embolus. HIGH RISK: Target INR is 2.5-3.5 for patients with mechanical heart valves. Performing Organization Address [facility] Phone Number [address] [address] [phone] CENTER CBC with platelet count + automated diff (06/24/2018 5:07 AM MANAGER CARE)Only the most recent of2 resultswithin the time period is included. WBC 9.6 3.5 - 10.5 K/L [facility] RBC 5.00 3.93 - 5.22 M/L [facility] Hemoglobin 14.0 11.2 - 15.7 GM/DL [facility] Hematocrit 42.1 34.1 - 44.9 % [facility] MCV 84.2 79.4 - 94.8 fL [facility] MCH 28.0 25.6 - 32.2 pg [facility] MCHC 33.3 32.2 - 35.5 GM/DL [facility] RDW 13.0 11.7 - 14.4 % [facility] Platelets 227 150 - 450 K/CU MM [facility] MPV 11.8 9.4 - 12.3 fL [facility] nRBC 0 0 - 0 /100 WBC [facility] % Neutros 52 % [facility] % Lymphs 38 % [facility] % Monos 6 % [facility] % Eos 3 % [facility] % Baso 1 % [facility] # Neutros 5.03 1.56 - 6.13 K/L [facility] # Lymphs 3.62 1.18 - 3.74 K/L [facility] # Monos 0.62 (H) 0.24 - 0.36 K/L [facility] # Eos 0.27 0.04 - 0.36 K/L [facility] # Baso 0.05 0.01 - 0.08 K/L [facility] Immature Granulocytes-Relative 1 0 - 1 % [facility] Specimen Blood Performing Organization Address City/[facility]/Zipcode Phone Number [address] [address] [place] ECHOCARDIOGRAM REPORT - SCAN (06/21/2018 9:21 AM MANAGER CARE) Narrative Performed At Cortisol (06/21/2018 9:11 AM MANAGER CARE) Cortisol, Total 4.7 3.7 - 19.4 ug/dL [facility] Specimen Blood - Arm, Right Performing Organization Address City/[facility]/Zipcode Phone Number [place] [phone] [place] [address] [place] Insulin-like growth factor (06/21/2018 9:11 AM MANAGER CARE)Only the most recent of2 resultswithin the time period is included. Igf-1(Somatomedin-C) 36 (L) 52 - 328 ng/mL [facility] Z-Score Male: DNR [facility] Z-Score Female: -2.6 (L) -2.0 - 2.0 SD [facility] Comment: [facility]POR[facility] This test was developed and its analytical performance characteristics have been determined by [facility]. It has not been cleared or approved by FDA. This assay has been validated pursuant to the CLIA regulations and is used for clinical purposes. Specimen Blood - Arm, Right Narrative Performed At Performing Lab [employer] [facility] [address] [address] Sixto Rodrigez MD, PhD, ANABELL Performing Organization Address [facility] Phone Number [place] [address] [facility] [id number] [facility] ACTH (06/21/2018 9:11 AM MANAGER CARE)Only the most recent of2 resultswithin the time period is included. ACTH 17 6 - 50 pg/mL [facility] Comment: Reference range applies only to the specimens collected between 7am-10am. Specimen Blood - Arm, Right Narrative Performed At Performing Lab [employer] [facility] [address] [address] Sixto Rodrigez MD, PhD, ANABELL Performing Organization Address [facility] [place] [address] [facility]POR[facility] [phone] [facility] Follicle stimulating hormone (FSH) (06/21/2018 9:11 AM MANAGER CARE) Fsh 2.3 mIU/mL [facility] Comment: Adult female reference ranges for FSH: Follicular Phase: 2.5- 10.2 mIU/mL Mid-Cycle:3.1- 17.7 mIU/mL Luteal Phase: 1.5-9.1 mIU/mL Postmenopausal:23.0-116.3 mIU/mL Children (<18 Years Old): FSH reference ranges established on post-pubertal patient population. Reference range not established for pre-pubertal patients using this assay. For pre-pubertal patients, the [facility] FSH, Pediatrics assay is recommended (test code 51601). Specimen Blood - Arm, Right Narrative Performed At Performing Lab [facility] [address] [place] [address] Sixto Rodrigez MD, PhD, ANABELL Performing Organization Address City/State/Zipcode Phone Number [facility], [place] [address] INCORPORATED [address] [facility] [address] brain without IV contrast (06/20/2018 9:48 PM MANAGER CARE) Narrative Performed At FINAL REPORT [facility] CT Head without contrast CLINICAL HISTORY: 1mm cuts, zero gantry for STEALTH OR navigation TECHNIQUE: Contiguous axial images through the head without contrast. This exam was performed according to the departmental dose optimization program which includes automated exposure control, adjustment of the mA and/or kV according to the patient size, and/or use of an iterative reconstruction technique. COMPARISON: CT head dated 06/19/2018. FINDINGS: There is no CT evidence of acute infarct or intracranial hemorrhage. 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 Otherwise the paranasal sinuses are clear.Basilar cisterns are patent. There are no extra-axial fluid collections. The skull is intact. Intraorbital contents are unremarkable. IMPRESSION: CT for treatment planning purposes. 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 Signed: Brian Gamboa MD Report Verified Date/Time:06/20/2018 22:07:25 Reading Location: [address] Transitional Reading Room Procedure Note Interface, External Ris In - 06/20/2018 10:09 PM MANAGER CARE FINAL REPORT CT Head without contrast CLINICAL HISTORY: 1mm cuts, zero gantry for STEALTH OR navigation TECHNIQUE: Contiguous axial images through the head without contrast. This exam was performed according to the departmental dose optimization program which includes automated exposure control, adjustment of the mA and/or kV according to the patient size, and/or use of an iterative reconstruction technique. COMPARISON: CT head dated 06/19/2018. FINDINGS: There is no CT evidence of acute infarct or intracranial hemorrhage. Ventricles are normal in size and configuration. There is no hydrocephalus, midline shift. 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 Otherwise the paranasal sinuses are clear. Basilar cisterns are patent. There are no extra-axial fluid collections. The skull is intact. Intraorbital contents are unremarkable. IMPRESSION: CT for treatment planning purposes. 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 Signed: Brian Gamboa MD Report Verified Date/Time: 06/20/2018 22:07:25 Reading Location: [address] Reading Room Performing Organization Address City/State/Zipcode Phone Number [employer] [facility] 2D Echo W/Doppler(CW/PW/Color) (06/20/2018 6:40 PM MANAGER CARE) Ejection Fraction [facility] Narrative Performed At Transthoracic Echocardiography Report (TTE) [facility] Demographics Patient NameYONNOLA, VY Date of Study06/20/2018 Female Visit [id number] Unknown Room [id number] Number Date of 1970Referring Abrahan Mireles MD 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 Clinical History DM;HTN;HYPOTHYROID HGB 14.1 HCT 42.3 % Contrast Medium: Bubble Study. Height: 64 inches Weight: 122.47 kg (270 lbs) BSA: 2.22 m^2 BMI: 46.34 kg/m^2 HR: 80 bpm BP: 128/78 mmHg Summary IV saline contrast injection was negative for a PFO (patent foramen ovale) at rest and post Valsalva . The left ventricle is chamber size (by PSLAX dimension) is normal (female - LVIDd 3.8-5.2cm) . All of the LV segments contract normally . Global LV systolic function normal . Estimated LVEF by qualitative assessment is normal (55-60%) . Normal cardiac index 2-3 L/min/m2) cardiac output state at rest is noted. Normal diastolic function. Estimated peak systolic PA pressure is 25-30 mmHg . No significant pericardial effusion is visualized. Previous Study No prior exam available for comparison. Signature Findings Left Ventricle The left ventricle is chamber size (by PSLAX di mension) is normal (female - LVIDd 3.8-5.2cm) . No rmal LV wall thickness. All of the LV segments co ntract normally . Global LV systolic function no rmal . Estimated LVEF by qualitative assessment is normal (55-60%) . Normal (cardiac index 2-3 L/ min/m2) cardiac output state at rest is noted. No rmal diastolic function. Left AtriumLA size is normal (16-34 ml/m2) . Right VentricleThe right ventricular chamber size and systolic fu nction are within normal limits. Right Atrium RA cavity size is normal . Atrial SeptumIV saline contrast injection was negative for a PFO (p atent foramen ovale) at rest and post Valsalva . Aortic Valve Normal AoV structure and function. A trace of aortic regurgitation. Mitral Valve Mild MV leaflet thickening. Mi ld mitral annular calcification. Tr rachell mitral regurgitation. Tricuspid ValveA trace of tricuspid regurgitation. Es timated peak systolic PA pressure is 25-30 mmHg . Pulmonic Valve PV is not well visualized; function appears normal by Doppler visualized. AortaAortic root size (SInus of Valsalva diameter) is no rmal . Proximal ascending aorta size is normal . PericardiumNo significant pericardial effusion is visualized. IVC/SVC/PA/PV/PleuralThe right upper pulmonary vein (RUPV) is normal . Th e estimated RA pressure by IVC dynamics 5-10mmHg . Chambers/Structures Left Atrium LA Volume: 66.57 ml LA Vol. Index: 30 ml/m^2 Left Ventricle LVIDd: 4.82 cm LV Septum Diastolic: 0.9 cm LV PW Diastolic: 0.9 cm LVOT Diameter: 2.09 cm Right Ventricle TAPSE: 1.91 cm Aorta Ao Root S of Whitney.: 3.01 cm Ascending Aorta: 3.1 cm Doppler/Quantitative Measurements Mitral Valve MV Peak E-Wave: 1.15 m/sMV Peak A-Wave: 0.78 m/s E/A Ratio: 1.47 Peak Gradient: 5.3 mmHg Deceleration Time: 185.8 msec MV Cecil. Peak: Tissue Doppler E' Lateral Velocity: 0.1 m/sE/E': 11.14 LVOT Peak Velocity: 1.01 m/s Peak Gradient: 4.09 mmHg Mean Velocity: 0.7 m/sMean Gradient: 2.32 mmHg LVOT Diameter: 2.09 cmLVOT VTI: 24.63 cm LVOT Area: 3.43 cm^2LVOT SV:84.46 ml LVOT CO: 6.76 l/min LVOT CI: 3.05 l/min/m^2 Tricuspid Valve TR Velocity: 2.12 m/s TR Gradient: 18.02 mmHg Procedure Note Interface, External Ris In - 06/21/2018 8:37 AM MANAGER CARE Transthoracic Echocardiography Report (TTE) Demographics Patient Name VY STOUT Date of Study 06/20/2018 Gender Female Visit Number [id number] Race Unknown Room Number 2251 Number Date of 1970 Referring Physician Althea iMreles MD Age 48 year(s) [employer] 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 Clinical History DM;HTN;HYPOTHYROID HGB 14.1 HCT 42.3 % Contrast Medium: Bubble Study. Height: 64 inches Weight: 122.47 kg (270 lbs) BSA: 2.22 m^2 BMI: 46.34 kg/m^2 HR: 80 bpm BP: 128/78 mmHg Summary IV saline contrast injection was negative for a PFO (patent foramen ovale) at rest and post Valsalva . The left ventricle is chamber size (by PSLAX dimension) is normal (female - LVIDd 3.8-5.2cm) . All of the LV segments contract normally . Global LV systolic function normal . Estimated LVEF by qualitative assessment is normal (55-60%) . Normal cardiac index 2-3 L/min/m2) cardiac output state at rest is noted. Normal diastolic function. Estimated peak systolic PA pressure is 25-30 mmHg . No significant pericardial effusion is visualized. Previous Study No prior exam available for comparison. Signature Findings Left Ventricle The left ventricle is chamber size (by PSLAX dimension) is normal (female - LVIDd 3.8-5.2cm) . Normal LV wall thickness. All of the LV segments contract normally . Global LV systolic function normal . Estimated LVEF by qualitative assessment is normal (55-60%) . Normal (cardiac index 2-3 L/min/m2) cardiac output state at rest is noted. Normal diastolic function. Left Atrium LA size is normal (16-34 ml/m2) . Right Ventricle The right ventricular chamber size and systolic function are within normal limits. Right Atrium RA cavity size is normal . Atrial Septum IV saline contrast injection was negative for a PFO (patent foramen ovale) at rest and post Valsalva . Aortic Valve Normal AoV structure and function. A trace of aortic regurgitation. Mitral Valve Mild MV leaflet thickening. Mild mitral annular calcification. Trace mitral regurgitation. Tricuspid Valve A trace of tricuspid regurgitation. Estimated peak systolic PA pressure is 25-30 mmHg . Pulmonic Valve PV is not well visualized; function appears normal by Doppler visualized. Aorta Aortic root size (SInus of Valsalva diameter) is normal . Proximal ascending aorta size is normal . Pericardium No significant pericardial effusion is visualized. IVC/SVC/PA/PV/Pleural The right upper pulmonary vein (RUPV) is normal . The estimated RA pressure by IVC dynamics 5-10mmHg . Chambers/Structures Left Atrium LA Volume: 66.57 ml LA Vol. Index: 30 ml/m^2 Left Ventricle LVIDd: 4.82 cm LV Septum Diastolic: 0.9 cm LV PW Diastolic: 0.9 cm LVOT Diameter: 2.09 cm Right Ventricle TAPSE: 1.91 cm Aorta Ao Root S of [place].: 3.01 cm Ascending Aorta: 3.1 cm Doppler/Quantitative Measurements Mitral Valve MV Peak E-Wave: 1.15 m/s MV Peak A-Wave: 0.78 m/s E/A Ratio: 1.47 Peak Gradient: 5.3 mmHg Deceleration Time: 185.8 msec MV Cecil. Peak: Tissue Doppler E' Lateral Velocity: 0.1 m/s E/E': 11.14 LVOT Peak Velocity: 1.01 m/s Peak Gradient: 4.09 mmHg Mean Velocity: 0.7 m/s Mean Gradient: 2.32 mmHg LVOT Diameter: 2.09 cm LVOT VTI: 24.63 cm LVOT Area: 3.43 cm^2 LVOT SV:84.46 ml LVOT CO: 6.76 l/min LVOT CI: 3.05 l/min/m^2 Tricuspid Valve TR Velocity: 2.12 m/s TR Gradient: 18.02 mmHg Performing Organization Address City/State/Zipcode Phone Number [facility] CP[facility] CTA carotid (06/19/2018 10:46 PM MANAGER CARE) Narrative Performed At FINAL REPORT [facility] ([facility]) CLINICAL HISTORY: Stroke TECHNIQUE: Initially, noncontrast head CT images were performed. Contiguous contrast-enhanced axial images through the neck followed by axial images through the head with coronal and sagittal reformations to assess the arterial circulation. 3-D reconstructions were performed using a volume rendered technique separately on a workstation. This exam was performed according to the departmental dose optimization program which includes automated exposure control, adjustment of the mA and/or kV according to the patient size, and/or use of an iterative reconstruction technique. COMPARISON: None FINDINGS: There is no CT evidence of acute infarct or hemorrhage. Again seen is the sellar and suprasellar mass measuring 2.3 x 1.5 cm, (AP by cc) with extension into the sphenoid sinus and mass effect on the optic chiasm, better evaluated on same day MRI brain. There is no hydrocephalus or midline shift. The skull is intact. Trace right mastoid air cell effusion. The CT angiogram images of the head reveal no evidence of intracranial aneurysm, focal stenosis, or proximal branch vessel occlusion. The right vertebral artery terminates in a AICA/PICA loop. The major intradural venous sinuses are patent. There is no stenosis of the proximal right internal carotid artery by NASCET criteria. There is a 20% stenosis of the proximal left internal carotid artery by NASCET criteria. The vertebral arteries in the neck are patent including their origins. Left dominant vertebrobasilar system. There are dorsal spondylitic changes in the cervical spine. There are scattered subcentimeter lymph nodes in the neck. Soft tissues of the neck are normal. The visualized lung apices are clear. IMPRESSION: Again seen is the sellar and suprasellar mass measuring 2.3 x 1.5 cm, (AP by cc ) with extension into the sphenoid sinus and mass effect on the optic chiasm, better evaluated on same day MRI brain. No acute intracranial infarction or hemorrhage. No evidence of intracranial aneurysm, focal stenosis, or proximal branch vessel occlusion. There is 20% stenosis proximal left internal carotid artery by NASCET criteria otherwise no evidence of hemodynamically significant stenosis in the cervical carotid or vertebral arteries by NASCET criteria. Signed: Brian Gamboa MD Report Verified Date/Time:06/20/2018 01:03:44 Reading Location: [address] Transitional Reading Room Procedure Note Interface, External Ris In - 06/20/2018 1:05 AM MANAGER CARE FINAL REPORT CLINICAL HISTORY: Stroke TECHNIQUE: Initially, noncontrast head CT images were performed. Contiguous contrast-enhanced axial images through the neck followed by axial images through the head with coronal and sagittal reformations to assess the arterial circulation. 3-D reconstructions were performed using a volume rendered technique separately on a workstation. This exam was performed according to the departmental dose optimization program which includes automated exposure control, adjustment of the mA and/or kV according to the patient size, and/or use of an iterative reconstruction technique. COMPARISON: None FINDINGS: There is no CT evidence of acute infarct or hemorrhage. Again seen is the sellar and suprasellar mass measuring 2.3 x 1.5 cm, (AP by cc) with extension into the sphenoid sinus and mass effect on the optic chiasm, better evaluated on same day MRI brain. There is no hydrocephalus or midline shift. The skull is intact. Trace right mastoid air cell effusion. The CT angiogram images of the head reveal no evidence of intracranial aneurysm, focal stenosis, or proximal branch vessel occlusion. The right vertebral artery terminates in a AICA/PICA loop. The major intradural venous sinuses are patent. There is no stenosis of the proximal right internal carotid artery by NASCET criteria. There is a 20% stenosis of the proximal left internal carotid artery by NASCET criteria. The vertebral arteries in the neck are patent including their origins. Left dominant vertebrobasilar system. There are dorsal spondylitic changes in the cervical spine. There are scattered subcentimeter lymph nodes in the neck. Soft tissues of the neck are normal. The visualized lung apices are clear. IMPRESSION: Again seen is the sellar and suprasellar mass measuring 2.3 x 1.5 cm, (AP by cc ) with extension into the sphenoid sinus and mass effect on the optic chiasm, better evaluated on same day MRI brain. No acute intracranial infarction or hemorrhage. No evidence of intracranial aneurysm, focal stenosis, or proximal branch vessel occlusion. There is 20% stenosis proximal left internal carotid artery by NASCET criteria otherwise no evidence of hemodynamically significant stenosis in the cervical carotid or vertebral arteries by NASCET criteria. Signed: Brian Gamboa MD Report Verified Date/Time: 06/20/2018 01:03:44 Reading Location: [facility] C013T Transitional Reading Room Performing Organization Address City/State/Zipcode Phone Number JULIAN JACOBO CTA brain (06/19/2018 10:46 PM MANAGER CARE) Narrative Performed At FINAL REPORT JULIAN JACOBO CLINICAL HISTORY: Stroke TECHNIQUE: Initially, noncontrast head CT images were performed. Contiguous contrast-enhanced axial images through the neck followed by axial images through the head with coronal and sagittal reformations to assess the arterial circulation. 3-D reconstructions were performed using a volume rendered technique separately on a workstation. This exam was performed according to the departmental dose optimization program which includes automated exposure control, adjustment of the mA and/or kV according to the patient size, and/or use of an iterative reconstruction technique. COMPARISON: None FINDINGS: There is no CT evidence of acute infarct or hemorrhage. Again seen is the sellar and suprasellar mass measuring 2.3 x 1.5 cm, (AP by cc) with extension into the sphenoid sinus and mass effect on the optic chiasm, better evaluated on same day MRI brain. There is no hydrocephalus or midline shift. The skull is intact. Trace right mastoid air cell effusion. The CT angiogram images of the head reveal no evidence of intracranial aneurysm, focal stenosis, or proximal branch vessel occlusion. The right vertebral artery terminates in a AICA/PICA loop. The major intradural venous sinuses are patent. There is no stenosis of the proximal right internal carotid artery by NASCET criteria. There is a 20% stenosis of the proximal left internal carotid artery by NASCET criteria. The vertebral arteries in the neck are patent including their origins. Left dominant vertebrobasilar system. There are dorsal spondylitic changes in the cervical spine. There are scattered subcentimeter lymph nodes in the neck. Soft tissues of the neck are normal. The visualized lung apices are clear. IMPRESSION: Again seen is the sellar and suprasellar mass measuring 2.3 x 1.5 cm, (AP by cc ) with extension into the sphenoid sinus and mass effect on the optic chiasm, better evaluated on same day MRI brain. No acute intracranial infarction or hemorrhage. No evidence of intracranial aneurysm, focal stenosis, or proximal branch vessel occlusion. There is 20% stenosis proximal left internal carotid artery by NASCET criteria otherwise no evidence of hemodynamically significant stenosis in the cervical carotid or vertebral arteries by NASCET criteria. Signed: Brian Gamboa MD Report Verified Date/Time:06/20/2018 01:03:44 Reading Location: [facility] B1 C013T Transitional Reading Room Procedure Note Interface, External Ris In - 06/20/2018 1:05 AM MANAGER CARE FINAL REPORT CLINICAL HISTORY: Stroke TECHNIQUE: Initially, noncontrast head CT images were performed. Contiguous contrast-enhanced axial images through the neck followed by axial images through the head with coronal and sagittal reformations to assess the arterial circulation. 3-D reconstructions were performed using a volume rendered technique separately on a workstation. This exam was performed according to the departmental dose optimization program which includes automated exposure control, adjustment of the mA and/or kV according to the patient size, and/or use of an iterative reconstruction technique. COMPARISON: None FINDINGS: There is no CT evidence of acute infarct or hemorrhage. Again seen is the sellar and suprasellar mass measuring 2.3 x 1.5 cm, (AP by cc) with extension into the sphenoid sinus and mass effect on the optic chiasm, better evaluated on same day MRI brain. There is no hydrocephalus or midline shift. The skull is intact. Trace right mastoid air cell effusion. The CT angiogram images of the head reveal no evidence of intracranial aneurysm, focal stenosis, or proximal branch vessel occlusion. The right vertebral artery terminates in a AICA/PICA loop. The major intradural venous sinuses are patent. There is no stenosis of the proximal right internal carotid artery by NASCET criteria. There is a 20% stenosis of the proximal left internal carotid artery by NASCET criteria. The vertebral arteries in the neck are patent including their origins. Left dominant vertebrobasilar system. There are dorsal spondylitic changes in the cervical spine. There are scattered subcentimeter lymph nodes in the neck. Soft tissues of the neck are normal. The visualized lung apices are clear. IMPRESSION: Again seen is the sellar and suprasellar mass measuring 2.3 x 1.5 cm, (AP by cc ) with extension into the sphenoid sinus and mass effect on the optic chiasm, better evaluated on same day MRI brain. No acute intracranial infarction or hemorrhage. No evidence of intracranial aneurysm, focal stenosis, or proximal branch vessel occlusion. There is 20% stenosis proximal left internal carotid artery by NASCET criteria otherwise no evidence of hemodynamically significant stenosis in the cervical carotid or vertebral arteries by NASCET criteria. Signed: Brian Gamboa MD Report Verified Date/Time: 06/20/2018 01:03:44 Reading Location: [address] Transitional Reading Room Performing Organization Address City/State/Zipcode Phone Number [facility] Rapid drug screen, urine (06/19/2018 11:54 AM MANAGER CARE) Barbiturate Screen Negative Negative [facility] Benzodiazepine Screen Negative Negative [facility] Cocaine (Metab.) Screen Negative Negative [facility] Methadone Screen Negative Negative [facility] Opiate Screen Negative Negative [facility] Cannabinoid Screen Negative Negative [facility] Amph/Methamph Screen Negative Negative [facility] Phencyclidine Screen Negative Negative [facility] Oxycodone Screen Negative Negative [facility] Specimen Urine - Urine, Voided Narrative Performed At [facility] CONC. Cocaine 300 ng/mL Yxnbbbyrqri74 ng/mL Vifgmscaxkzovx134 ng/mL Barbiturate 200 ng/mL Howchwtrkqtns94 ng/mL Nnfmgq022 ng/mL Methadone 300 ng/mL Amphetamine/ 1000 ng/mL Methamphetamine Oxycodone 300 ng/mL This assay provides an unconfirmed qualitative test result for the clinical management of patients in emergency situations. Chain of custody not maintained. Some vixd-anq-rfrngqa medications, as well as adulterants, may cause inaccurate results. Clinical correlation should be applied. A more comprehensive drug screen or confirmation of a detected drug may be performed upon request. Performing Organization Address City/State/Zipcode Phone Number [address] [address] [place] HIV-1 Antigen with HIV-1/2 Antibody (06/19/2018 11:49 AM MANAGER CARE) HIV-1 Antigen with HIV 1&2 NON-REACTIVE Nonreactive [facility] Specimen Blood - Arm, Left Performing Organization Address [facility] Phone Number [address] [address] [place] C-Reactive Protein (06/19/2018 11:49 AM MANAGER CARE) CRP 0.81 (H) 0.00 - 0.50 mg/dL [facility] Specimen Blood - Arm, Left Performing Organization Address [facility] Phone Number [address] [address] [place] RPR (06/19/2018 11:49 AM MANAGER CARE) RPR Nonreactive Nonreactive [facility] Specimen Blood - Arm, Left Performing Organization Address [facility] Phone Number [address] [address] [place] T4, free (06/19/2018 11:49 AM MANAGER CARE) Free T4 0.89 0.70 - 1.48 ng/dL [facility] Specimen Blood - Arm, Left Performing Organization Address [facility] Phone Number [address] [address] [place] Osmolality, serum (06/19/2018 11:49 AM MANAGER CARE) Osmolality Serum 310 (H) 275 - 295 mOsm/kg [facility] Specimen Blood - Arm, Left Performing Organization Address [facility] Phone Number [address] [address] [place] Prolactin (06/19/2018 3:49 AM MANAGER CARE) Prolactin 23.34 5.18 - 26.53 ng/mL [facility] Specimen Blood Performing Organization Address [facility] Phone Number [facility] [address] [place] [address] CENTER Growth hormone (06/19/2018 3:49 AM MANAGER CARE) Growth Hormone <0.1 < OR=7.1 ng/mL [facility] Comment: [facility]PORATED Because of a pulsatile secretion pattern, random (unstimulated) growth hormone (GH) levels are frequently undetectable in normal children and adults and are not reliable for diagnosing GH deficiency. Regarding suppression tests, failure to suppress GH is diagnostic of acromegaly. Typical GH response in healthy subjects: Using the glucose tolerance (GH suppression) test, acromegaly would be ruled out if the patient's GH level is <1.0 ng/mL at any point in the timed sequence.[Americo L, Nya Kent ER, Chan S, et al. Acromegaly: an Endocrine Society Clinical Practice Guideline. J Clin Endocrinol Metab 2014; 99: 9308-1454]. Using GH stimulation testing, the following result at any point in the timed sequence makes GH deficiency unlikely: Adults (> or=20 years): Insulin Hypoglycemia > or=5.1 ng/mL Arginine/GHRH> or=4.1 ng/mL Glucagon > or=3.0 ng/mL Children (<20 years): All Stimulation Tests> or=10.0 ng/mL Specimen Blood Narrative Performed At Performing Lab [facility] [place] [address] [place] [address] Sixto Rodrigez MD, PhD, ANABELL Performing Organization Address [facility] Phone Number [place] [address] INCORPORATED [address] [facility] Luteinizing hormone (LH) (06/19/2018 3:49 AM MANAGER CARE) LH, Serum 0.2 mIU/mL [facility] Comment: Adult Female Reference Ranges for LH: Follicular Phase:1.9-12.5 mIU/mL Mid-Cycle Peak:8.7-76.3 mIU/mL Luteal Phase:0.5-16.9 mIU/mL Postmenopausal: 10.0-54.7 mIU/mL Children (<18 Years Old): LH reference ranges established on post-pubertal patient population. Reference range not established for pre-pubertal patients using this assay. For pre-pubertal patients, the viblast LH, Pediatric assay is recommended (order code [id number]). Specimen Blood Narrative Performed At Performing Lab [facility] [place] [address] [place] [address] Sixto Rodrigez MD, PhD, ANABELL Performing Organization Address City/State/Zipcode Phone Number [employer] [place], [place] [address] INCORPORATED [address] [facility] MR brain without & with IV contrast (06/19/2018 2:25 AM MANAGER CARE) Narrative Performed At FINAL REPORT [facility] ([facility]) MRI brain with and without contrast Comparison:None. 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 Discussion: Multiplanar MR imaging of the brain and sella was provided [id number] IV gadolinium administration using T1, T2, FLAIR, FFE, and diffusion weighted sequences. Thin cut sagittal and coronal sella imaging was included. Examination of the brain demonstrates no parenchymal mass or mass effect. There is no extra-axial collection, hydrocephalus or herniation.There is no restricted diffusion to suggest an acute infarct. There is no abnormality on susceptibility sequences to suggest hemorrhage or hemosiderin deposition. The skull base flow-voids are seen in keeping with their patency. The visualized paranasal sinuses and mastoid air cells are clear. The orbits are unremarkable. The craniocervical junction is normal. Dedicated sella imaging demonstrates a lobulated T1 hypointense and mild T2 hyperintense sella/suprasellar mass which demonstrates mild heterogeneous enhancement. It measures approximately 2 x 2 x 2 cm (AP x CC x TR). The mass projects anteriorly-inferiorly into the sphenoid sinus. There is mass effect on the optic chiasm. There is no significant cavernous sinus extension. Meckel's cave is unremarkable bilaterally. Impressions: 2 x 2 x 2 cm lobulated sella/suprasellar mass compatible with a pituitary macroadenoma. Signed: Narcisa Mcdonald MD Report Verified Date/Time:06/19/2018 02:25:15 Reading Location: [address] Body Reading Room Procedure Note Interface, External Ris In - 06/19/2018 2:27 AM MANAGER CARE FINAL REPORT MRI brain with and without contrast Comparison: None. 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 Discussion: Multiplanar MR imaging of the brain and sella was provided [id number]-esfr IV gadolinium administration using T1, T2, FLAIR, FFE, and diffusion weighted sequences. Thin cut sagittal and coronal sella imaging was included. Examination of the brain demonstrates no parenchymal mass or mass effect. There is no extra-axial collection, hydrocephalus or herniation. There is no restricted diffusion to suggest an acute infarct. There is no abnormality on susceptibility sequences to suggest hemorrhage or hemosiderin deposition. The skull base flow-voids are seen in keeping with their patency. The visualized paranasal sinuses and mastoid air cells are clear. The orbits are unremarkable. The craniocervical junction is normal. Dedicated sella imaging demonstrates a lobulated T1 hypointense and mild T2 hyperintense sella/suprasellar mass which demonstrates mild heterogeneous enhancement. It measures approximately 2 x 2 x 2 cm (AP x CC x TR). The mass projects anteriorly-inferiorly into the sphenoid sinus. There is mass effect on the optic chiasm. There is no significant cavernous sinus extension. Meckel's cave is unremarkable bilaterally. Impressions: 2 x 2 x 2 cm lobulated sella/suprasellar mass compatible with a pituitary macroadenoma. Signed: Narcisa Mcdonald MD Report Verified Date/Time: 06/19/2018 02:25:15 Reading Location: [facility] B1 C013Y CT Body Reading Room Performing Organization Address City/State/Zipcode Phone Number [facility] Hemoglobin A1c (06/19/2018 12:39 AM MANAGER CARE) Hemoglobin A1C 7.9 (H) 4.3 - 6.1 % [facility] Specimen Blood Performing Organization Address City/State/Zipcode Phone Number [address] [address] CENTER TSH/Free T4 If Indicated (06/18/2018 11:32 PM MANAGER CARE) TSH 0.41 0.35 - 4.94 uIU/mL [facility] Specimen Blood Performing Organization Address City/[facility]/Zipcode Phone Number [facility] [address] [place] [address] [phone] CENTER Urinalysis w/Microscopic + Reflex to Culture (06/18/2018 10:27 PM MANAGER CARE) Color, UA Yellow [facility] Clarity, UA Clear [facility] Specific [place], UA 1.011 1.001 - 1.035 [facility] pH, UA 5.0 5.0 - 8.0 [facility] Protein, UA Negative Negative [facility] Glucose, UA >1000 mg/dL (A) Negative [facility] Ketones, UA 20 mg/dL (A) Negative [facility] Bilirubin, UA Negative Negative [facility] Blood, UA Negative Negative [facility] Nitrite, UA Negative Negative [facility] Leukocytes, UA Negative Negative [facility] Urobilinogen, UA 0.2 0.2 - 1.0 mg/dL [facility] RBC, UA <1 /HPF [facility] WBC, UA <1 /HPF [facility] Squam Epithel, UA <1 /HPF [facility] Specimen Source [facility] Specimen Urine - Urine, Clean Catch Performing Organization Address City/State/Zipcode Phone Number [facility] [address] [place] [address] CENTER after 06/25/2017 Insurance Payer Benefit Plan / Subscriber ID Type Phone Address Group [employer]UE [employer]OSS/[employer]UE [employer]BS OS xxxxxxxxxxxx PPO [phone] [address] [employer]/[place] [address] (Home) [address] [place] [phone] Advance Directives For more information, please contact:[facility] [place], [place] [phone] Code Status Date Activated Date Inactivated Comments Full Code 06/18/2018 8:39 PM This code status was determined by: Patient
--- OUTSIDE RECORDS SUMMARY | 2018-06-26 05:08 | XMS REPORT ---
:1970 Author Organization [facility] Address [address] [place] [address] [address] [place] [address] Care Team Providers Name Role Phone MITCHELL DOBSON Unavailable Unavailable Problems This patient has no known problems. Allergies, Adverse Reactions, Alerts This patient has no known allergies or adverse reactions. Medications This patient has no known medications. Results Test Description Test Time Test Comments Text Results Atomic Results Result Comments POCT-GLUCOSE METER 2018-06-25 16:17:00 Test Item Value Reference Range Comments POC-GLUCOSE METER (BEAKER) (test 244 mg/dL 70-110 TESTED AT [address] owxd=8873) [facility] [address] POCT-GLUCOSE [id number] 12:08:00 Test Item Value Reference Range Comments POC-GLUCOSE METER (BEAKER) 229 mg/dL 70-110 TESTED AT [address] (test wqmq=0367) [place] [id number] POCT-GLUCOSE [id number] 08:27:00 Test Item Value Reference Range Comments POC-GLUCOSE METER (BEAKER) 280 mg/dL 70-110 TESTED AT [address] (test fqdr=3650) [place] [id number] OSMOLALITY, [id number] 05:16:00 Test Item Value Reference Range Comments OSMOLALITY URINE (BEAKER) (test olpk=162) 340 mOsm/kg 40-1,400 SPECIFIC GRAVITY, [id number] 04:53:00 Test Item Value Reference Range Comments SPECIFIC GRAVITY UA (BEAKER) (test bpdc=922) 1.010 1.001-1.035 POCT-GLUCOSE [id number] 22:29:00 Test Item Value Reference Range Comments POC-GLUCOSE METER (BEAKER) 257 mg/dL 70-110 TESTED AT [address] (test atrm=5263) [place] [id number] BASIC METABOLIC [id number] 17:49:00 Test Item Value Reference Range Comments SODIUM (BEAKER) (test 137 meq/L 136-145 tuch=051) POTASSIUM (BEAKER) (test 4.6 meq/L 3.5-5.1 ybha=835) CHLORIDE (BEAKER) (test 102 meq/L 98-107 octd=412) CO2 (BEAKER) (test 26 meq/L 22-29 htxp=684) BLOOD UREA NITROGEN 14 mg/dL 7-21 (BEAKER) (test ovkd=197) CREATININE (BEAKER) (test 0.78 mg/dL 0.57-1.25 kqhl=367) GLUCOSE RANDOM (BEAKER) 246 mg/dL 70-105 (test zjbs=806) CALCIUM (BEAKER) (test 8.7 mg/dL 8.4-10.2 smja=284) EGFR (BEAKER) (test 79 mL/min/1.73 sq m ESTIMATED GFR IS NOT hxgy=7234) ACCURATE CREATININE CLEARANCE IN PREDICTING GLOMERULAR FILTRATION RATE. ESTIMATED GFR IS NOT APPLICABLE FOR DIALYSIS PATIENTS. POCT-GLUCOSE [id number] 17:02:00 Test Item Value Reference Range Comments POC-GLUCOSE METER (BEAKER) 235 mg/dL 70-110 TESTED AT [address] (test pmea=5347) [place] [address] POCT-GLUCOSE [id number] 12:06:00 Test Item Value Reference Range Comments POC-GLUCOSE METER (BEAKER) 249 mg/dL 70-110 TESTED AT [address] (test rtll=2665) [place] [address] POCT-GLUCOSE [id number] 09:40:00 Test Item Value Reference Range Comments POC-GLUCOSE METER (BEAKER) 278 mg/dL 70-110 TESTED AT [address] (test ptej=3038) [place] [address] BASIC METABOLIC [id number] 06:14:00 Test Item Value Reference Range Comments SODIUM (BEAKER) (test 141 meq/L 136-145 yvtz=036) POTASSIUM (BEAKER) (test 4.1 meq/L 3.5-5.1 lnhc=566) CHLORIDE (BEAKER) (test 104 meq/L 98-107 rmkh=266) CO2 (BEAKER) (test 30 meq/L 22-29 bieh=052) BLOOD UREA NITROGEN 14 mg/dL 7-21 (BEAKER) (test mvtf=639) CREATININE (BEAKER) (test 0.70 mg/dL 0.57-1.25 krde=013) GLUCOSE RANDOM (BEAKER) 146 mg/dL 70-105 (test vrno=227) CALCIUM (BEAKER) (test 9.4 mg/dL 8.4-10.2 kfzk=303) EGFR (BEAKER) (test 89 mL/min/1.73 sq m ESTIMATED GFR IS NOT hchh=4240) ACCURATE CREATININE CLEARANCE IN PREDICTING GLOMERULAR FILTRATION RATE. ESTIMATED GFR IS NOT APPLICABLE FOR DIALYSIS PATIENTS. [id number] 06:03:00 Test Item Value Reference Range Comments PROTIME (BEAKER) (test hbdm=774) 13.8 seconds 11.7-14.7 INR (BEAKER) (test lmmv=777) 1.1 <=5.9 PARTIAL THROMBOPLASTIN TIME (BEAKER) (test 32.0 seconds 22.5-36.0 ktqx=331) RECOMMENDED COUMADIN/WARFARIN INR THERAPY RANGESSTANDARD DOSE: 2.0 - 3.0 Includes: PROPHYLAXIS forvenous thrombosis, systemic embolization; TREATMENT for venous thrombosis and/or pulmonary embolus.HIGH RISK: Target INR is 2.5-3.5 for patients with mechanical heart valves. SCREEN, [id number] 05: 59:00 Test Item Value Reference Range Comments TEST URINE (BEAKER) (test edmb=983) Negative POCT-GLUCOSE [id number] 05:46:00 Test Item Value Reference Range Comments POC-GLUCOSE METER (BEAKER) 140 mg/dL 70-110 TESTED AT [address] (test cgrq=7944) [facility] [address] CBC W/PLT COUNT & AUTO [id number] 05:46:00 Test Item Value Reference Range Comments WHITE BLOOD CELL COUNT (BEAKER) (test jqdi=888) 9.6 K/ L 3.5-10.5 RED BLOOD CELL COUNT (BEAKER) (test iipd=761) 5.00 M/ L 3.93-5.22 HEMOGLOBIN (BEAKER) (test ftum=901) 14.0 GM/DL 11.2-15.7 HEMATOCRIT (BEAKER) (test sjco=005) 42.1 % 34.1-44.9 MEAN CORPUSCULAR VOLUME (BEAKER) (test xlpo=299) 84.2 fL 79.4-94.8 MEAN CORPUSCULAR HEMOGLOBIN (BEAKER) (test 28.0 pg 25.6-32.2 xxne=888) MEAN CORPUSCULAR HEMOGLOBIN CONC (BEAKER) (test 33.3 GM/DL 32.2-35.5 ajft=662) RED CELL DISTRIBUTION WIDTH (BEAKER) (test 13.0 % 11.7-14.4 ktwm=248) PLATELET COUNT (BEAKER) (test ltfr=256) 227 K/CU MM 150-450 MEAN PLATELET VOLUME (BEAKER) (test zrov=650) 11.8 fL 9.4-12.3 NUCLEATED RED BLOOD CELLS (BEAKER) (test 0 /100 WBC 0-0 pvbd=073) NEUTROPHILS RELATIVE PERCENT (BEAKER) (test 52 % hbyw=028) LYMPHOCYTES RELATIVE PERCENT (BEAKER) (test 38 % jcpv=203) MONOCYTES RELATIVE PERCENT (BEAKER) (test 6 % okwe=892) EOSINOPHILS RELATIVE PERCENT (BEAKER) (test 3 % rxwx=069) BASOPHILS RELATIVE PERCENT (BEAKER) (test 1 % apmq=414) NEUTROPHILS ABSOLUTE COUNT (BEAKER) (test 5.03 K/ L 1.56-6.13 iqfo=708) LYMPHOCYTES ABSOLUTE COUNT (BEAKER) (test 3.62 K/ L 1.18-3.74 nsvj=852) MONOCYTES ABSOLUTE COUNT (BEAKER) (test 0.62 K/ L 0.24-0.36 vzqo=800) EOSINOPHILS ABSOLUTE COUNT (BEAKER) (test 0.27 K/ L 0.04-0.36 qoak=527) BASOPHILS ABSOLUTE COUNT (BEAKER) (test 0.05 K/ L 0.01-0.08 tvyo=200) IMMATURE GRANULOCYTES-RELATIVE PERCENT (BEAKER) 1 % 0-1 (test ovzg=7530) POCT-GLUCOSE [id number] 21:27:00 Test Item Value Reference Range Comments POC-GLUCOSE METER (BEAKER) 223 mg/dL 70-110 TESTED AT [facility] [address] [facility] (test mdqr=4770) [facility] [address] POCT-GLUCOSE [id number] 17:26:00 Test Item Value Reference Range Comments POC-GLUCOSE METER (BEAKER) 223 mg/dL 70-110 TESTED AT [address] (test pbvu=3090) [place] [id number] BASIC METABOLIC [id number] 16:43:00 Test Item Value Reference Range Comments SODIUM (BEAKER) (test 139 meq/L 136-145 cngp=974) POTASSIUM (BEAKER) (test 4.5 meq/L 3.5-5.1 Specimen slightly wpgt=929) hemolyzed CHLORIDE (BEAKER) (test 102 meq/L 98-107 qebe=340) CO2 (BEAKER) (test 29 meq/L 22-29 ifir=847) BLOOD UREA NITROGEN 16 mg/dL 7-21 (BEAKER) (test uwrq=726) CREATININE (BEAKER) (test 0.76 mg/dL 0.57-1.25 Specimen slightly ctqz=829) hemolyzed GLUCOSE RANDOM (BEAKER) 217 mg/dL 70-105 (test cdxs=464) CALCIUM (BEAKER) (test 9.6 mg/dL 8.4-10.2 gbft=130) EGFR (BEAKER) (test 81 mL/min/1.73 sq m ESTIMATED GFR IS NOT reju=2278) ACCURATE CREATININE CLEARANCE IN PREDICTING GLOMERULAR FILTRATION RATE. ESTIMATED GFR IS NOT APPLICABLE FOR DIALYSIS PATIENTS. POCT-GLUCOSE [id number] 09:06:00 Test Item Value Reference Range Comments POC-GLUCOSE METER (BEAKER) 265 mg/dL 70-110 TESTED AT [address] (test xlrp=7804) [place] [id number] POCT-GLUCOSE [id number] 00:22:00 Test Item Value Reference Range Comments POC-GLUCOSE METER (BEAKER) 210 mg/dL 70-110 TESTED AT [address] (test weet=6312) [place] [id number] POCT-GLUCOSE [id number] 20:27:00 Test Item Value Reference Range Comments POC-GLUCOSE METER (BEAKER) 235 mg/dL 70-110 TESTED AT [address] (test piyg=8538) [place] [address] POCT-GLUCOSE [id number] 17:10:00 Test Item Value Reference Range Comments POC-GLUCOSE METER (BEAKER) 264 mg/dL 70-110 TESTED AT [address] (test nzji=1339) [place] [address] POCT-GLUCOSE [id number] 16:00:00 Test Item Value Reference Range Comments POC-GLUCOSE METER (BEAKER) 242 mg/dL 70-110 TESTED AT [address] (test ddxw=4350) [place] [id number] POCT-GLUCOSE [id number] 08:54:00 Test Item Value Reference Range Comments POC-GLUCOSE METER (BEAKER) 224 mg/dL 70-110 TESTED AT [address] (test oljw=2663) [place] [address] POCT-GLUCOSE [id number] 21:30:00 Test Item Value Reference Range Comments POC-GLUCOSE METER (BEAKER) 254 mg/dL 70-110 TESTED AT [address] (test qbdz=1769) [place] [address] POCT-GLUCOSE [id number] 17:23:00 Test Item Value Reference Range Comments POC-GLUCOSE METER (BEAKER) 193 mg/dL 70-110 TESTED AT [address] (test dilf=7070) [place] [address] POCT-GLUCOSE [id number] 11:53:00 Test Item Value Reference Range Comments POC-GLUCOSE METER (BEAKER) 179 mg/dL 70-110 TESTED AT [address] (test emyl=2985) [place] [address] [id number] 10:15:00 Test Item Value Reference Range Comments CORTISOL, TOTAL (BEAKER) (test bxdb=4486) 4.7 ug/dL 3.7-19.4 POCT-GLUCOSE [id number] 08:07:00 Test Item Value Reference Range Comments POC-GLUCOSE METER (BEAKER) 184 mg/dL 70-110 TESTED AT [address] (test mvwz=4564) [place] [address] CT, BRAIN, WITHOUT [id number] 22:07:00FINAL REPORT CT Head without contrast CLINICAL HISTORY: 1mm cuts, zero gantryfor STEALTH OR navigation TECHNIQUE: Contiguous axial images through the head without contrast. Thisexam was performed according to the departmental dose [...] Basilar cisterns are patent. There are no extra- axial fluid collections. The skull is intact. Intraorbital contents are unremarkable. 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 Signed: Brian Gamboa Verified Date/Time: 06/20/2018 22:07:25 Reading Location: [address] Reading Room POCT-GLUCOSE [id number] 21:00:00 Test Item Value Reference Range Comments POC-GLUCOSE METER (BEAKER) 227 mg/dL 70-110 TESTED AT [address] (test jmxn=3426) [place] [address] POCT-GLUCOSE [id number] 16:57:00 Test Item Value Reference Range Comments POC-GLUCOSE METER (BEAKER) 216 mg/dL 70-110 TESTED AT [address] (test aojt=2807) [place] [address] POCT-GLUCOSE [id number] 13:11:00 Test Item Value Reference Range Comments POC-GLUCOSE METER (BEAKER) 198 mg/dL 70-110 TESTED AT [address] (test vxcw=7938) [place] [id number] POCT-GLUCOSE [id number] 07:47:00 Test Item Value Reference Range Comments POC-GLUCOSE METER (BEAKER) 213 mg/dL 70-110 TESTED AT [address] (test cnpz=0024) [place] [address] BASIC METABOLIC [id number] 06:57:00 Test Item Value Reference Range Comments SODIUM (BEAKER) (test 138 meq/L 136-145 aicd=147) POTASSIUM (BEAKER) (test 3.9 meq/L 3.5-5.1 mbvh=518) CHLORIDE (BEAKER) (test 105 meq/L 98-107 bmef=632) CO2 (BEAKER) (test 24 meq/L 22-29 tcon=095) BLOOD UREA NITROGEN 12 mg/dL 7-21 (BEAKER) (test ihor=761) CREATININE (BEAKER) (test 0.73 mg/dL 0.57-1.25 levh=460) GLUCOSE RANDOM (BEAKER) 192 mg/dL 70-105 (test kvgo=460) CALCIUM (BEAKER) (test 8.8 mg/dL 8.4-10.2 gdej=628) EGFR (BEAKER) (test 85 mL/min/1.73 sq m ESTIMATED GFR IS NOT jrnt=0264) ACCURATE CREATININE CLEARANCE IN PREDICTING GLOMERULAR FILTRATION RATE. ESTIMATED GFR IS NOT APPLICABLE FOR DIALYSIS PATIENTS. POCT-GLUCOSE [id number] 05:24:00 Test Item Value Reference Range Comments POC-GLUCOSE METER (BEAKER) 192 mg/dL 70-110 TESTED AT [facility] [address] [facility] (test jxir=5988) [facility] [address] CT, CTANGIO [id number] 01:03:00FINAL REPORT CLINICAL HISTORY: Stroke TECHNIQUE: Initially, noncontrast head CT images were performed. Contiguous contrast-enhanced axial images through the neck followed by axial images through the head with coronal and sagittal reformations to assess the arterial circulation. 3-D reconstructions were performed using a volume rendered technique separately on a workstation. This exam was performed according to the departmental dose optimization program which includes automatedexposure control, adjustment of the mA and/or kV [...] normal. The visualized lung apices are clear. IMPRESSION:Again seen is the sellar and suprasellar mass measuring2.3 x 1.5 cm, (AP by cc ) [...] arteries by NASCET criteria. Signed: Brian Gamboa Verified Date/ Time: 06/20/2018 01:03:44 Reading Location: [address] Transitional Reading Room [facility], [place], [id number] 01:03:00FINAL REPORT CLINICAL HISTORY: Stroke TECHNIQUE: Initially, noncontrast head CT images were performed. Contiguous contrast-enhanced axial images through the neck followed by axial images through the head with coronal and sagittal reformations to assess the arterial circulation. 3-D reconstructions were performed using a volume rendered technique separately on a workstation. This exam was performed according to the departmental dose optimization program which includes automatedexposure control, adjustment of the mA and/or kV [...] normal. The visualized lung apices are clear. IMPRESSION:Again seen is the sellar and suprasellar mass measuring2.3 x 1.5 cm, (AP by cc ) [...] vertebral arteries by NASCET criteria. Signed: [facility] Verified Date/ Time: 06/20/2018 01:03:44 Reading Location: [address] Transitional Reading Room POCT-GLUCOSE [id number] 00:40:00 Test Item Value Reference Range Comments POC-GLUCOSE METER (BEAKER) 283 mg/dL 70-110 TESTED AT [address] (test lsea=9832) [place] [id number] POCT-GLUCOSE [id number] 21:21:00 Test Item Value Reference Range Comments POC-GLUCOSE METER (BEAKER) 343 mg/dL 70-110 TESTED AT [address] (test dswp=0737) [facility] [address] SCREEN, [id number] 18:52:00 Test Item Value Reference Range Comments TEST URINE (BEAKER) (test koxc=970) Negative POCT-GLUCOSE [id number] 17:17:00 Test Item Value Reference Range Comments POC-GLUCOSE METER (BEAKER) 287 mg/dL 70-110 TESTED AT [address] (test pqbi=8426) [place] [address] [id number] 15:59:00 Test Item Value Reference Range Comments RPR SCREEN (BEAKER) (test bdmc=471) Nonreactive Nonreactive POCT-GLUCOSE [id number] 15:07:00 Test Item Value Reference Range Comments POC-GLUCOSE METER (BEAKER) 323 mg/dL 70-110 TESTED AT [facility] [address] (test vsrx=9957) [facility] [address] T4, [id number] 13:11:00 Test Item Value Reference Range Comments FREE T4 (BEAKER) (test cgyp=304) 0.89 ng/dL 0.70-1.48 HIV-1 ANTIGEN WITH HIV-1/2 [id number] 13:11:00 Test Item Value Reference Range Comments HIV-1 ANTIGEN WITH HIV 1\T\2 ANTIBODY (2) Nonreactive Nonreactive (BEAKER) (test srra=2854) RAPID DRUG SCREEN, [id number] 12:47:00 Test Item Value Reference Range Comments BARBITURATE URINE (BEAKER) (test ayfu=411) Negative Negative BENZODIAZEPINE SCREEN URINE (BEAKER) (test Negative Negative yaub=935) COCAINE (METAB.) SCREEN (BEAKER) (test rhyb=9876) Negative Negative METHADONE SCREEN (BEAKER) (test ndor=0423) Negative Negative OPIATE SCREEN URINE (BEAKER) (test voom=127) Negative Negative CANNABINOID SCREEN URINE (BEAKER) (test bjvo=769) Negative Negative AMPH/METHAMPH SCREEN (BEAKER) (test ztfb=1874) Negative Negative PHENCYCLIDINE SCREEN URINE (BEAKER) (test ihhi=205) Negative Negative OXYCODONE SCREEN URINE (BEAKER) (test ulgc=3985) Negative Negative DRUG CUTOFF CONC.Cocaine 300 ng/mL Cannabinoid 50 ng/mL Benzodiazepine 200 ng/mLBarbiturate 200 ng/ mLPhencyclidine 25 ng/mLOpiate 300 ng/mLMethadone 300 ng/mLAmphetamine/ 1000 ng/mL MethamphetamineOxycodone 300 ng/mLThis assay provides an unconfirmed qualitative test result for the clinical management of patients in emergency situations. Chain of custody not maintained. Some lkyg-qtg-ljvyxth medications, as well as adulterants, may cause inaccurate results. Clinical correlation should be applied. A more comprehensive drug screen or confirmation of a detected drug may be performed upon request.POCT-GLUCOSE [id number] 12:37:00 Test Item Value Reference Range Comments POC-GLUCOSE METER (BEAKER) 292 mg/dL 70-110 TESTED AT [facility] [address] (test iupu=0160) [facility] [address] HEMOGLOBIN [id number] 12:35:00 Test Item Value Reference Range Comments HEMOGLOBIN A1C (BEAKER) (test ucmw=796) 7.9 % 4.3-6.1 OSMOLALITY, [id number] 12:34:00 Test Item Value Reference Range Comments OSMOLALITY, SERUM (BEAKER) (test hkwk=656) 310 mOsm/kg 275-295 C-REACTIVE [id number] 12:28:00 Test Item Value Reference Range Comments C-REACTIVE PROTEIN (BEAKER) (test ddei=489) 0.81 mg/dL 0.00-0.50 OSMOLALITY, [id number] 12:22:00 Test Item Value Reference Range Comments OSMOLALITY URINE (BEAKER) (test czpw=815) 247 mOsm/kg 40-1,400 CBC W/PLT COUNT & AUTO [id number] 12:14:00 Test Item Value Reference Range Comments WHITE BLOOD CELL COUNT (BEAKER) (test fgxh=694) 15.1 K/ L 3.5-10.5 RED BLOOD CELL COUNT (BEAKER) (test unfz=076) 5.15 M/ L 3.93-5.22 HEMOGLOBIN (BEAKER) (test zlod=690) 14.1 GM/DL 11.2-15.7 HEMATOCRIT (BEAKER) (test opbr=709) 42.3 % 34.1-44.9 MEAN CORPUSCULAR VOLUME (BEAKER) (test vxbl=505) 82.1 fL 79.4-94.8 MEAN CORPUSCULAR HEMOGLOBIN (BEAKER) (test 27.4 pg 25.6-32.2 ekaw=335) MEAN CORPUSCULAR HEMOGLOBIN CONC (BEAKER) (test 33.3 GM/DL 32.2-35.5 mnyd=754) RED CELL DISTRIBUTION WIDTH (BEAKER) (test 12.9 % 11.7-14.4 puto=654) PLATELET COUNT (BEAKER) (test hbso=611) 278 K/CU MM 150-450 MEAN PLATELET VOLUME (BEAKER) (test niqg=214) 11.5 fL 9.4-12.3 NUCLEATED RED BLOOD CELLS (BEAKER) (test 0 /100 WBC 0-0 xqgo=565) NEUTROPHILS RELATIVE PERCENT (BEAKER) (test 87 % ndzm=884) LYMPHOCYTES RELATIVE PERCENT (BEAKER) (test 10 % dunh=153) MONOCYTES RELATIVE PERCENT (BEAKER) (test 3 % pbgg=127) EOSINOPHILS RELATIVE PERCENT (BEAKER) (test 0 % oqcj=517) BASOPHILS RELATIVE PERCENT (BEAKER) (test 0 % sjul=054) NEUTROPHILS ABSOLUTE COUNT (BEAKER) (test 13.06 K/ L 1.56-6.13 nqka=896) LYMPHOCYTES ABSOLUTE COUNT (BEAKER) (test 1.51 K/ L 1.18-3.74 pzkr=659) MONOCYTES ABSOLUTE COUNT (BEAKER) (test 0.38 K/ L 0.24-0.36 qzzx=354) EOSINOPHILS ABSOLUTE COUNT (BEAKER) (test 0.00 K/ L 0.04-0.36 vyhk=976) BASOPHILS ABSOLUTE COUNT (BEAKER) (test 0.02 K/ L 0.01-0.08 kdxf=459) IMMATURE GRANULOCYTES-RELATIVE PERCENT (BEAKER) 1 % 0-1 (test mqjo=7724) POCT-GLUCOSE [id number] 10:30:00 Test Item Value Reference Range Comments POC-GLUCOSE METER (BEAKER) 341 mg/dL 70-110 TESTED AT [address] (test dpdz=2023) [place] [address] [id number] 06:17:00 Test Item Value Reference Range Comments PROLACTIN (BEAKER) (test zlws=427) 23.34 ng/mL 5.18-26.53 POCT-GLUCOSE [id number] 05:55:00 Test Item Value Reference Range Comments POC-GLUCOSE METER (BEAKER) 285 mg/dL 70-110 TESTED AT [address] (test uqvk=7711) [place] [address] MR, BRAIN, [id number] 02:25:00Pituitary protocolCr 0.6FINAL REPORT MRI brain with and without contrast Comparison: None. 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 Discussion: Multiplanar MR imaging of the brain and sella was provided qpv-mjk-ikrs IV gadolinium administration using T1, T2, FLAIR, FFE, and diffusion weighted sequences. Thin cut sagittal and coronal sella imaging was included. Examinationof the brain demonstrates no parenchymal mass or mass effect. There is no extra-axial collection, hydrocephalus or herniation. There is no restricted diffusion to suggest an acute infarct. There is noabnormality on susceptibility sequences to suggest hemorrhage or hemosiderin deposition. The skull base flow-voids are seen in keeping with their patency. The visualized paranasal sinuses and mastoid air cells are clear. The orbits are unremarkable. The craniocervical junction is normal. Dedicated sella imaging demonstrates a lobulated T1 hypointense and mild T2 hyperintense sella/ suprasellar mass which demonstrates mild heterogeneous enhancement. It measures approximately 2 x 2 x 2 cm (AP x CCx TR). The mass projects anteriorly- inferiorly into the sphenoid sinus. There is mass effect on the optic chiasm. There is no significant cavernous sinus extension. Meckel's cave is unremarkable bilaterally. 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 Signed: Cassandra Mcdonald MDReport Verified Date/Time: 06/19/2018 02:25:15 Reading Location: [place] [address]Y CT Body Reading Room TSH/FREE T4 IF [id number] 00:26:00 Test Item Value Reference Range Comments THYROID STIMULATING HORMONE (BEAKER) (test 0.41 uIU/mL 0.35-4.94 yczo=523) BASIC METABOLIC [id number] 00:07:00 Test Item Value Reference Range Comments SODIUM (BEAKER) (test 136 meq/L 136-145 bhqg=198) POTASSIUM (BEAKER) (test 4.0 meq/L 3.5-5.1 moqz=557) CHLORIDE (BEAKER) (test 103 meq/L 98-107 lhna=806) CO2 (BEAKER) (test 20 meq/L 22-29 zwvz=906) BLOOD UREA NITROGEN 11 mg/dL 7-21 (BEAKER) (test novx=096) CREATININE (BEAKER) (test 0.84 mg/dL 0.57-1.25 uykz=897) GLUCOSE RANDOM (BEAKER) 357 mg/dL 70-105 (test axne=736) CALCIUM (BEAKER) (test 9.0 mg/dL 8.4-10.2 kfgp=513) EGFR (BEAKER) (test 72 mL/min/1.73 sq m ESTIMATED GFR IS NOT wiab=2326) ACCURATE CREATININE CLEARANCE IN PREDICTING GLOMERULAR FILTRATION RATE. ESTIMATED GFR IS NOT APPLICABLE FOR DIALYSIS PATIENTS. URINALYSIS W/ REFLEX URINE [id number] 23:13:00 Test Item Value Reference Range Comments COLOR (BEAKER) (test pjwz=679) Yellow CLARITY (BEAKER) (test cvme=642) Clear SPECIFIC GRAVITY UA (BEAKER) (test tnba=090) 1.011 1.001-1.035 PH UA (BEAKER) (test jiow=626) 5.0 5.0-8.0 PROTEIN UA (BEAKER) (test ugqa=792) Negative Negative GLUCOSE UA (BEAKER) (test ewar=689) >1000 mg/dL Negative KETONES UA (BEAKER) (test terk=184) 20 mg/dL Negative BILIRUBIN UA (BEAKER) (test dtns=787) Negative Negative BLOOD UA (BEAKER) (test qujm=961) Negative Negative NITRITE UA (BEAKER) (test yini=670) Negative Negative LEUKOCYTE ESTERASE UA (BEAKER) (test xrlh=981) Negative Negative UROBILINOGEN UA (BEAKER) (test mtsq=891) 0.2 mg/dL 0.2-1.0 RBC UA (BEAKER) (test vlxl=557) < /HPF WBC UA (BEAKER) (test tuui=086) < /HPF SQUAMOUS EPITHELIAL (BEAKER) (test bieo=274) < /HPF SOURCE(BEAKER) (test ckqz=6207)
--- OUTSIDE RECORDS SUMMARY | 2018-06-26 05:08 | XMS REPORT ---
[...] Date Status Dosage System Date Losartan [facility] 87892204459 50-12.5 MG February 12, Active 1 tablet Potassium-HCTZ Orally Once a 2017 day Results No Known Results Summary Purpose eClinicalWorks Submission
--- OUTSIDE RECORDS SUMMARY | 2018-06-26 05:09 | XMS REPORT ---
[...] End Status Dosage System Date Date Diflucan [facility] [id number] 150 MG Orally Feb 20Feb Active 1 tablet Once a day 2017 Nitrofurantoin ND 68318454068 100 MG Orally Feb 20Feb Active 1 capsule Macrocrystal BID 2017 12, with food 2018 or milk GlyBURIDE ND 73359751070 5 MG Orally January 21, Active 1 tablet Once a day 2017 with breakfast or the first main meal of the day Levothyroxine ND 24438555680 88 MCG Oral Active TAKE 1 Sodium TABLET BY MOUTH EVERY MORNING Losartan ND 57410267494 50-12.5 MG February 12, Active 1 tablet Potassium-HCTZ Orally Once a 2018 day Valsartan-Hydroch ND 05616328390 80-12.5 MG Oral Active TAKE 1 lorothiazide TABLET BY MOUTH EVERY DAY Results Name Result Date Reference Range Unit Abnormality Flag THINPREP TIS PAP AND HPV mRNA E6/E7, CHLAMYDIA/N.GONORRHOEAE URINALYSIS AUTO W/O SCOPE (83154) ----PROTEIN N 20180220 ----pH 5.5 20180220 ----NIT P [id number] ----CONCEPCION 1+ 20180220 ----URO 1.0 20180220 ----SPECIFIC GRAVITY 1.015 20180220 ----BLO TR [id number] ----BILIRUBIN N 20180220 ----KETONES N 20180220 ----GLUCOSE N [id number] Summary Purpose eClinicalWorks Submission
--- OUTSIDE RECORDS SUMMARY | 2018-06-26 05:09 | XMS REPORT ---
:1970 Author Organization eClinicalWorks Care Team Providers Name Role Phone Sandoval, Neeru Provider Role Unavailable Allergies No Known [...]
[2018-06-26] MEDS ORDERED: ONDANSETRON 4 MG/2 ML VIAL ONE (05:52)
[2018-06-26] MEDS ORDERED: MORPHINE 4 MG/ML SYR ONE (05:52)
--- NOTE | 2018-06-26 06:19 | ER ---
Nurse's Notes [facility] Name: Chantal Stout Age: 48 yrs Sex: Female : 1970 Arrival Date: 06/26/2018 Time: 05:06 Bed 15 Private MD: Diagnosis: Severe headache post pituitary resection Presentation: 06/26 05:11 Presenting complaint: Patient states: Severe headache and nausea that started at 0300H cc3 this morning. 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 Transition of care: patient was not received from another setting of care. Onset of symptoms was June 26, 2018. Risk Assessment: Do you want to hurt yourself or someone else? Patient reports no desire to harm self or others. Initial Sepsis Screen: Does the patient meet any 2 criteria? No. Patient's initial sepsis screen is negative. Does the patient have a suspected source of infection? No. Patient's initial sepsis screen is negative. Care prior to arrival: None. 05:11 Method Of Arrival: Wheelchair cc3 05:11 Acuity: NOÉ 3 cc3 Triage Assessment: 05:11 General: Appears in no apparent distress. uncomfortable, Behavior is calm, cooperative. cc3 Pain: Complains of pain in head Pain currently is 10 out of 10 on a pain scale. Quality of pain is described as aching. EENT: Reports she just had an operation of transsphenoidal resection of her pituitary gland macroadenoma. Neuro: Level of Consciousness is awake, alert, obeys commands, Oriented to person, place, time, situation, Appropriate for age. Cardiovascular: Denies chest pain. Respiratory: Airway is patent Respiratory effort is even, unlabored, Respiratory pattern is regular, symmetrical. GI: Reports nausea, since 0300H this morning. : No signs and/or symptoms were reported regarding the genitourinary system. Derm: flushed face. Musculoskeletal: Circulation, motion, and sensation intact. Range of motion: intact in all extremities. 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 cc3 Historical: - Allergies: 05:11 Bactrim; cc3 05:11 Cephalexin; cc3 05:11 Codeine; cc3 05:11 Iodine; cc3 05:11 Levaquin; cc3 - Home Meds: 05:11 metformin 750 mg Oral Tb24 1 tab twice a day [Active]; hydrocortisone 10 mg Oral tab 1 cc3 tab 2 times per day [Active]; glyburide 5 mg Oral tab 1 tab once daily [Active]; amoxicillin-pot clavulanate 875-125 mg Oral tab 1 tab every 12 hours [Active]; pantoprazole 40 mg oral TbEC 1 tab once daily [Active]; amlodipine 10 mg tab 1 tab once daily [Active]; levothyroxine 75 mcg tab 1 tab once daily [Active]; Acetaminophen-Codeine Oral 1 tab every 4 hrs PRN [Active]; losartan 50 mg oral tab 1 tab once daily [Active]; - PMHx: 05:11 Anemia; Asthma; Diabetes - NIDDM; Hypertension; Hypothyroidism; cc3 - PSHx: 05:11 D \\T\\ C; Tonsillectomy; left fingers surgery; removal of fibroid tumor of cervix; cc3 - Immunization history:: Adult Immunizations up to date. - Social history:: Smoking status: Patient uses tobacco products, quit 4 months ago. - Ebola Screening: : No symptoms or risks identified at this time. - Family history:: not pertinent. - Hospitalizations: : Patient was recently seen at [facility]. Screenin:11 Abuse screen: Denies threats or abuse. Denies injuries from another. Nutritional cc3 screening: No deficits noted. Tuberculosis screening: No symptoms or risk factors identified. Fall Risk Ambulatory Aid- None/Bed Rest/Nurse Assist (0 pts). Gait- Normal/Bed Rest/Wheelchair (0 pts) Mental Status- Oriented to own ability (0 pts). Assessment: 05:11 General: see triage assessment. cc3 06:30 Reassessment: Patient appears in no apparent distress at this time. Patient and/or cc3 family updated on plan of care and expected duration. Pain level reassessed. Patient is alert, oriented x 3, equal unlabored respirations, skin warm/dry/pink. Patient taken by spray technician to CT scan department. 06:50 Reassessment: Patient came back from CT scan department, CT scan of head brain done cc3 awaiting result. 07:20 Reassessment: Dr. Driscoll called as requested by Dr. Pereira and given CT results. Pt has ss been accepted and now awaiting to hear back from hospitalist. 07:32 Reassessment: Patient appears in no apparent distress at this time. Patient and/or ph family updated on plan of care and expected duration. Pain level reassessed. Patient is alert, oriented x 3, equal unlabored respirations, skin warm/dry/pink. Pt resting quietly, VSS, awaiting transfer. 08:41 Reassessment: Patient appears in no apparent distress at this time. Patient and/or ph family updated on plan of care and expected duration. Pain level reassessed. Patient is alert, oriented x 3, equal unlabored respirations, skin warm/dry/pink. [place] [facility] for transport. 09:20 Reassessment: Patient appears in no apparent distress at this time. Patient and/or ph family updated on plan of care and expected duration. Pain level reassessed. Patient is alert, oriented x 3, equal unlabored respirations, skin warm/dry/pink. Pt resting quietly w/ lights off in room, awaiting EMS for transfer to [facility]. 10:31 Reassessment: Patient appears in no apparent distress at this time. Patient and/or ph family updated on plan of care and expected duration. Pain level reassessed. Patient is alert, oriented x 3, equal unlabored respirations, skin warm/dry/pink. Pt c/o burning in chest, states, " It feels like there's a bubble in there." ERP notified, see MAR, awaiting EMS for transport. 10:42 Reassessment: Patient appears in no apparent distress at this time. Patient and/or ph family updated on plan of care and expected duration. Pain level reassessed. Patient is alert, oriented x 3, equal unlabored respirations, skin warm/dry/pink. [facility] at bedside, report given to Jeanne pt transferred to [facility]. Vital Signs: 05:11 BP 142 / 86; Pulse 64; Resp 20 S; Temp 97.7(A); Pulse Ox 95% on R/A; Weight 122.47 kg cc3 (R); Height 5 ft. 4 in. (162.56 cm) (R); Pain 10/10; 06:48 BP 129 / 69; Pulse 63; Resp 20 S; Pulse Ox 97% on R/A; cc3 07:33 BP 127 / 79; Pulse 63; Resp 18; Pulse Ox 94% on R/A; ph 08:25 BP 128 / 78; Pulse 60; Resp 16; Temp 97.5; Pulse Ox 97% on R/A; ph 09:21 BP 149 / 76; Pulse 73; Resp 16; Pulse Ox 96% on R/A; ph 10:44 BP 129 / 87; Pulse 78; Resp 16; Temp 97.6; Pulse Ox 99% on R/A; ph 05:11 Body Mass Index 46.34 (122.47 kg, 162.56 cm) cc3 ED Course: 05:06 Patient arrived in ED. es 05:11 Treasure Raines is Primary Nurse. cc3 05:11 Arm band placed on right wrist. cc3 05:11 Patient has correct armband on for positive identification. Bed in low position. Call cc3 light in reach. Side rails up X 1. Adult w/ patient. decorative greens cutter on. Pulse ox on. NIBP on. 05:27 Dylon Pereira MD is Attending Physician. wa 05:34 Triage completed. cc3 06:10 Missed attempt(s): 22 gauge in left forearm. Bleeding controlled, band aid applied, fc catheter tip intact. 06:20 Initial lab(s) drawn, by me, sent to lab. Inserted 18 gauge 10 cm midline to left upper fc basilic vein on first attempt. Line with good blood return and flushes well. 06:41 Head Brain Wo Cont CT In Process Unspecified. EDMS 06:44 CT completed. Patient tolerated procedure well. Patient moved back from CT. kw1 07:00 Report given to RN CAMILA. cc3 07:32 Barbara Leahy, ALCIDES is Primary Nurse. ph 07:40 connected the hospitalist from [facility] with Dr. Mckoy for patient transfer eb consultation. 07:54 Kristy from [facility] called and asked for an extension due to them trying to eb find a bed for the patient. 08:12 administrative approval given by Kristy Floyd RN administrative support coordinator at the [facility]/ Pt going to 15 tower bed 1535/ report to be called to [phone]/ Antonino Naylor has accepted the patient in transfer. 10:42 No provider procedures requiring assistance completed. Patient transferred, IV remains ph in place. Administered Medications: 06:25 Drug: Zofran 4 mg Route: IVP; Site: left upper arm; cc3 06:52 Follow up: Response: No adverse reaction; Nausea is decreased cc3 06:29 Drug: morphine 4 mg Route: IVP; Site: left upper arm; cc3 06:52 Follow up: Response: No adverse reaction; Pain is decreased cc3 10:41 Drug: GI Cocktail without - (Maalox Suspension 30 ml, Lidocaine Liquid 2 % 15 ph ml) Route: PO; 10:41 Follow up: Response: No adverse reaction ph Outcome: 06:19 ER care complete, transfer ordered by MD. jason 10:43 Transferred by ground EMS [place]. to [facility], [facility], Transfer form ph completed. X-rays sent w/ patient. 10:43 Condition: stable 10:43 Instructed on the need for transfer. 10:57 Patient left the ED. ph Signatures: Dispatcher [employer] Isidra Todd Felicia, RN RN Alexa Moses RN RN Barbara Leahy RN RN Dylon Pereira MD MD wa Wilhelm, Kimberly kw1 Armida Ring Charlene cc3 Corrections: (The following items were deleted from the chart) 05:51 05:11 EENT: Reports she just had an operation of transsphenoidal resection of her cc3 pituitary. cc3 06:51 06:50 Reassessment: Patient came back from CT scan department, CT scan of head done cc3 awaiting result. cc3
--- NOTE | 2018-06-26 06:20 | EDPHYS ---
Physician Documentation [facility] Name: Chantal Stout Age: 48 yrs Sex: Female : 1970 Arrival Date: 06/26/2018 Time: 05:06 Bed 15 Private MD: ED Physician Dylon Pereira HPI: 06/26 05:45 This 48 yrs old Female presents to ER via Wheelchair with complaints of wa Nausea, Headache, POSSIBLE CSF LEAK. 05:45 The patient presents to the emergency department with nausea. wa 05:46 The patient complains of pain to the diffuse. The patient describes the headache as wa aching, constant. Onset: The symptoms/episode began/occurred 2 hour(s) ago, woke pt from sleep. Associated signs and symptoms: Pertinent positives: nausea, Pertinent negatives: vomiting. Severity of symptoms: At its worst the pain was severe, in the emergency department the pain is unchanged. Headache History: Other s/p recent pituitary resection at [facility]. just d/c'd yesterday. The symptoms are alleviated by nothing. the symptoms are aggravated by nothing. The patient has not experienced similar symptoms in the past. The patient has been recently seen by a physician:. 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 cc3 Historical: - Allergies: 05:11 Bactrim; cc3 05:11 Cephalexin; cc3 05:11 Codeine; cc3 05:11 Iodine; cc3 05:11 Levaquin; cc3 - Home Meds: 05:11 metformin 750 mg Oral Tb24 1 tab twice a day [Active]; hydrocortisone 10 mg Oral tab 1 cc3 tab 2 times per day [Active]; glyburide 5 mg Oral tab 1 tab once daily [Active]; amoxicillin-pot clavulanate 875-125 mg Oral tab 1 tab every 12 hours [Active]; pantoprazole 40 mg oral TbEC 1 tab once daily [Active]; amlodipine 10 mg tab 1 tab once daily [Active]; levothyroxine 75 mcg tab 1 tab once daily [Active]; Acetaminophen-Codeine Oral 1 tab every 4 hrs PRN [Active]; losartan 50 mg oral tab 1 tab once daily [Active]; - PMHx: 05:11 Anemia; Asthma; Diabetes - NIDDM; Hypertension; Hypothyroidism; cc3 - PSHx: 05:11 D \T\ C; Tonsillectomy; left fingers surgery; removal of fibroid tumor of cervix; cc3 - Immunization history:: Adult Immunizations up to date. - Social history:: Smoking status: Patient uses tobacco products, quit 4 months ago. - Ebola Screening: : No symptoms or risks identified at this time. - Family history:: not pertinent. - Hospitalizations: : Patient was recently seen at [facility]. ROS: 05:47 Constitutional: Negative for fever, chills, and weight loss, Eyes: Negative for injury, wa pain, redness, and discharge, ENT: Negative for injury, pain, and discharge, Neck: Negative for injury, pain, and swelling, Cardiovascular: Negative for chest pain, palpitations, and edema, Respiratory: Negative for shortness of breath, cough, wheezing, and pleuritic chest pain, Abdomen/GI: Negative for abdominal pain, nausea, vomiting, diarrhea, and constipation, Back: Negative for injury and pain, : Negative for injury, bleeding, discharge, and swelling, MS/Extremity: Negative for injury and deformity, Skin: Negative for injury, rash, and discoloration, Psych: Negative for depression, anxiety, suicide ideation, homicidal ideation, and hallucinations. 05:47 Neuro: Positive for headache, nausea. 05:47 All other systems are negative. Exam: 05:48 Constitutional: This is a well developed, well nourished patient who is awake, alert, wa and in no acute distress. Eyes: Pupils equal round and reactive to light, extra-ocular motions intact. Lids and lashes normal. Conjunctiva and sclera are non-icteric and not injected. Cornea within normal limits. Periorbital areas with no swelling, redness, or edema. Neck: Trachea midline, no thyromegaly or masses palpated, and no cervical lymphadenopathy. Supple, full range of motion without nuchal rigidity, or vertebral point tenderness. No Meningismus. Chest/axilla: Normal chest wall appearance and motion. Nontender with no deformity. No lesions are appreciated. Cardiovascular: Regular rate and rhythm with a normal S1 and S2. No gallops, murmurs, or rubs. Normal PMI, no JVD. No pulse deficits. Respiratory: Lungs have equal breath sounds bilaterally, clear to auscultation and percussion. No rales, rhonchi or wheezes noted. No increased work of breathing, no retractions or nasal flaring. Abdomen/GI: Soft, non-tender, with normal bowel sounds. No distension or tympany. No guarding or rebound. No evidence of tenderness throughout. Back: No spinal tenderness. No costovertebral tenderness. Full range of motion. Skin: Warm, dry with normal turgor. Normal color with no rashes, no lesions, and no evidence of cellulitis. MS/ Extremity: Pulses equal, no cyanosis. Neurovascular intact. Full, normal range of motion. 05:48 Head/face: Noted is packing in bilateral nostrils. 05:48 ENT: Nose: Turbinates: bilateral packing intact in both nostrils. 05:48 Neuro: Orientation: is normal, Mentation: is normal, Cranial nerves: grossly normal, Motor: is normal. Vital Signs: 05:11 BP 142 / 86; Pulse 64; Resp 20 S; Temp 97.7(A); Pulse Ox 95% on R/A; Weight 122.47 kg cc3 (R); Height 5 ft. 4 in. (162.56 cm) (R); Pain 10/10; 06:48 BP 129 / 69; Pulse 63; Resp 20 S; Pulse Ox 97% on R/A; cc3 07:33 BP 127 / 79; Pulse 63; Resp 18; Pulse Ox 94% on R/A; ph 08:25 BP 128 / 78; Pulse 60; Resp 16; Temp 97.5; Pulse Ox 97% on R/A; ph 09:21 BP 149 / 76; Pulse 73; Resp 16; Pulse Ox 96% on R/A; ph 10:44 BP 129 / 87; Pulse 78; Resp 16; Temp 97.6; Pulse Ox 99% on R/A; ph 05:11 Body Mass Index 46.34 (122.47 kg, 162.56 cm) cc3 MDM: 05:27 Patient medically screened. wa 05:50 Differential diagnosis: will pain control. will effect transfer to [facility] for further wa eval by her surgeons. Data reviewed: vital signs, nurses notes. 06/26 05:39 Order name: CBC with Diff; Complete Time: 07:36 la 06/26 05:39 Order name: CMP; Complete Time: 07:36 wa 12/05 05:39 Order name: PT-INR; Complete Time: 07:36 la 06/26 06:07 Order name: Head Brain Wo Cont CT; Complete Time: 07:36 la 06/26 05:39 Order name: IV Start; Complete Time: 06:29 la Administered Medications: 06:25 Drug: Zofran 4 mg Route: IVP; Site: left upper arm; cc3 06:52 Follow up: Response: No adverse reaction; Nausea is decreased cc3 06:29 Drug: morphine 4 mg Route: IVP; Site: left upper arm; cc3 06:52 Follow up: Response: No adverse reaction; Pain is decreased cc3 10:41 Drug: GI Cocktail without - (Maalox Suspension 30 ml, Lidocaine Liquid 2 % 15 ph ml) Route: PO; 10:41 Follow up: Response: No adverse reaction ph Disposition: 06/26/18 06:19 Transfer ordered to [facility]. Diagnosis is Severe headache post pituitary resection . - Reason for transfer: Higher level of care. - Accepting physician is Dr. Driscoll at [facility] in the [facility]. - Condition is Stable. - Problem is new. - Symptoms have improved. Signatures: Dispatcher [employer] EDMS Ranjan Mckoy MD MD rn Hall, Patricia, RN RN Dylon Pereira MD MD wa Cordel, Charlene cc3 Corrections: (The following items were deleted from the chart) 10:57 06:19 06/26/2018 06:19 Transfer ordered to [facility]. Diagnosis is ph Severe headache post pituitary resection . Reason for transfer: Higher level of care. Accepting physician is Dr. Driscoll at [facility] in [facility]. Condition is Stable. Problem is new. Symptoms have improved. wa
[2018-06-26 06:47] LABS: Absolute Lymphocytes (CBC) 2.1 K/uL (0.7-4.9); Absolute Monocytes 1.2 K/uL (0.1-1.3); Absolute Neutrophil 8.3 K/uL (1.8-8.0); Basophils % 0.7 % (0-1.3); Eosinophils % 0.1 % (0-4.4); Hematocrit 39.9 % (36.0-45.0); Lymphocytes % 18.1 % (15.3-44.8); MCH 28.1 pg (27.0-35.0); MCV 84.1 fL (80-100); MPV 9.9 fL (7.6-11.3); Monocytes % 10.5 % (3.3-12.3); RBC Red Blood Cell Count 4.75 M/uL (3.86-4.86)
[2018-06-26 06:52] LABS: Protime INR 1.08
[2018-06-26 07:03] LABS: Albumin 3.5 g/dL (3.4-5.0); Bilirubin Total 0.7 mg/dL (0.2-1.0); Potassium 3.9 mmol/L (3.5-5.1); Protein, Total 6.9 g/dL (6.4-8.2)
--- NOTE | 2018-06-26 07:11 | RAD REPORT ---
EXAM DESCRIPTION: CT - Head Brain Wo Cont - 06/26/2018 7:00 am CLINICAL HISTORY: Severe headache, patient is status post transsphenoidal resection of pituitary mac roadenoma with discharge June 18 A preliminary report was provided at the time of the study and reviewed prior to final report. COMPARISON: None. TECHNIQUE: Axial 5 mm thick images of the head were obtained without IV contrast. All CT scans are performed using dose optimization technique as appropriate and may include automated exposure control or mA/KV adjustment according to patient size. FINDINGS: No intracranial hemorrhage is present. No mass effect, edema or shift of midline structure s. No acute infarction changes seen. Ventricles are normal. Postsurgical changes are present from mac roadenoma resection. There is postsurgical packing material filling the sphenoid sinus. Trace amount of pneumocephalus present in the sella turcica. No cavernous sinus abnormality identifiable on noncon trast CT imaging. Mastoid air cells are clear. Trace fluid in the right maxillary sinus. No acute bony findings. IMPRESSION: No hemorrhage, mass or acute intracranial finding. Postsurgical changes are present within the sella turcica and sphenoid sinus all within normal range for the recent surgical procedure.
[2018-06-26] MEDS ORDERED: cloNIDine HCl 0.1 MG TAB ONE (08:03)
[2018-06-26] MEDS ORDERED: MAGNE/ALUM HYDROXD 30 ML UCUP ONE (10:45)
[2018-06-26 11:10] VITALS: BP 129/87; TEMP 97.6; O2SAT 99
== END 2018-06-26 10:57 | disposition short-term general hospital (02) ==
LOC: ER 05:05
DX: R51 Headache (principal); Z98.890 Other specified postprocedural states; E11.9 Type 2 diabetes mellitus without complications; E03.9 Hypothyroidism, unspecified; I10 Essential (primary) hypertension; J45.909 Unspecified asthma, uncomplicated; D64.9 Anemia, unspecified; Z79.84 Long term (current) use of oral hypoglycemic drugs; Z79.899 Other long term (current) drug therapy
CPT/HCPCS: 36415; 70450; 80053; 85025; 85610; 96374; 96375; 99285; J2405

== ENCOUNTER 2018-06-28 13:31 | Emergency (ER) | payer BC ==
--- OUTSIDE RECORDS SUMMARY | 2018-06-28 13:34 | XMS REPORT | Clinical Summary ---
:1970 Author Organization [facility] Address [address] [place] [address] Care Team Providers Name Role Phone Pcp, No Primary Care Provider Unavailable Allergies Active Allergy Reactions Severity Noted Date Comments Sulfamethoxazole-Trimethoprim Swelling 06/26/2018 Ceftriaxone Rash Low 06/21/2018 Cephalexin 06/26/2018 Fever Codeine 06/26/2018 hyperactivity Levofloxacin 06/26/2018 Hallucinations Monosodium Glutamate 06/26/2018 Flushed face Medications Medication Sig Dispensed Refills Start Date [...] packet by 3 packet 5 06/25/2018 Active ckxjh-buvjqi-ywkaka Nasal route 2 bottle (NEILMED (two) times [...] 9 by mouth daily for 30 days. amLODIPine (NORVASC) Take 10 mg by 0 Active 10 MG tablet mouth daily. famotidine (PEPCID) Take 1 tablet 30 tablet 0 06/27/2018 Active 20 MG tablet (20 mg total) by mouth every 12 (twelve) hours. ondansetron Take 1 tablet 20 tablet 0 06/27/2018 Active (ZOFRAN-ODT) 4 MG (4 mg total) by 8 disintegrating mouth every 12 tablet (twelve) hours as needed for up to 7 days. losartan-hydroCHLORO Take 1 tablet 0 Discontinued [...] Encounters Date Type Specialty Care Team Description 06/26/2018 - Hospital Encounter General Internal Cece, Acute intractable 06/27/2018 Medicine Antonino Flor, headache, unspecified headache type Kelsey Westbrook MD 06/24/2018 Surgery Alex Ruano, ENDOSCOPIC CRANIOTOMY,REMOVAL TRANSSPHENOIDAL PITUITARY TUMOR 06/24/2018 Anesthesia Event Acacia Ogden 06/24/2018 Anesthesia Event Yosvany Hanna MD 06/18/2018 - Hospital Encounter General Internal Athreya, Nonintractable headache, unspecified chronicity pattern, unspecified headache type; 06/25/2018 Medicine Alycia Sparks MD 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6 cm (5' 4") 06/18/2018 9:00 PM COIN DEALER Body Mass Index 46.35 06/18/2018 9:00 PM COIN DEALER Plan of Treatment Not on file Implants Implanted Type Area Top Trimmer Device Shelf Model / Identifier Expiration Serial / Date Lot Sealant Durasl Spine 5ml - [id number] Cement/Fi N/A: [employer]TE[employer]RA LIFESCI 10/21/[id number] / Implanted: Qty: 1 on 06/24/2018 by Alex Ruano MD ller/[place]ent[place] Head / sive [id number] Formerly [facility] Full Strlprep 10ml [id number] - [id number] Cement/Fi N/A: FUNES: BIOSCI 11/18/2019 [id number] / Implanted: Qty: 1 on 06/24/2018 by Alex Ruano MD ller/[employer] / sive [id number] Graft Matrix Dura 1x3 [id number] - [id number] Neuro N/A: [employer]TR[employer]IC 02/20/2020 [id number] / Implanted: Qty: 1 on 06/24/2018 by Alex Ruano MD Head SURGICAL / NAVIGATION [id number] Procedures Procedure Name Priority Date/Time Associated Comments Diagnosis POCT-GLUCOSE METER Routine 06/27/2018 12:07 Results for this PM COIN DEALER procedure are in the results section. POCT-GLUCOSE METER Routine 06/27/2018 7:41 Results for this AM COIN DEALER procedure are in the results section. CBC W/PLT COUNT & Routine 06/27/2018 5:56 Results for this AUTO DIFFERENTIAL AM COIN DEALER procedure are in the results section. BASIC METABOLIC PANEL Routine 06/27/2018 5:56 Results for this (7) AM COIN DEALER procedure are in the results section. CBC W/PLT COUNT & Routine 06/27/2018 5:56 Results for this AUTO DIFFERENTIAL AM COIN DEALER procedure are in the results section. CBC W/PLT COUNT & STAT 06/26/2018 11:18 Results for this AUTO DIFFERENTIAL PM COIN DEALER procedure are in the results section. CBC W/PLT COUNT & STAT 06/26/2018 11:18 Results for this AUTO DIFFERENTIAL PM COIN DEALER procedure are in the results section. BASIC METABOLIC PANEL STAT 06/26/2018 11:18 Results for this (7) PM COIN DEALER procedure are in the results section. SODIUM, RANDOM URINE STAT 06/26/2018 11:11 Results for this PM COIN DEALER procedure are in the results section. CT BRAIN WITHOUT IV STAT 06/26/2018 10:25 Results for this CONTRAST PM COIN DEALER procedure are in the results section. POCT-GLUCOSE METER Routine 06/26/2018 9:01 Results for this PM COIN DEALER procedure are in the results section. CBC W/PLT COUNT & Routine 06/26/2018 1:55 Results for this AUTO DIFFERENTIAL PM COIN DEALER procedure are in the results section. BASIC METABOLIC PANEL Routine 06/26/2018 1:55 Results for this (7) PM COIN DEALER procedure are in the results section. CBC W/PLT COUNT & Routine 06/26/2018 1:55 Results for this AUTO DIFFERENTIAL PM COIN DEALER procedure are in the results section. POCT-GLUCOSE METER Routine 06/26/2018 1:33 Results for this PM COIN DEALER procedure are in the results section. POCT-GLUCOSE METER Routine 06/26/2018 12:06 Results for this PM COIN DEALER procedure are in the results section. POCT-GLUCOSE METER Routine 06/25/2018 4:10 Results for this PM COIN DEALER procedure are in the results section. POCT-GLUCOSE METER Routine 06/25/2018 12:02 Results for this PM COIN DEALER procedure are in the results section. POCT-GLUCOSE METER Routine 06/25/2018 8:02 Results for this AM COIN DEALER procedure are in the results section. OSMOLALITY, URINE STAT 06/25/2018 4:23 Results for this AM COIN DEALER procedure are in the results section. SPECIFIC GRAVITY, STAT 06/25/2018 4:23 Results for this URINE AM COIN DEALER procedure are in the results section. POCT-GLUCOSE METER Routine 06/24/2018 9:56 Results for this PM COIN DEALER procedure are in the results section. POCT-GLUCOSE METER Routine 06/24/2018 4:57 Results for this PM COIN DEALER procedure are in the results section. BASIC METABOLIC PANEL STAT 06/24/2018 4:50 Results for this (7) PM COIN DEALER procedure are in the results section. POCT-GLUCOSE METER Routine 06/24/2018 11:09 Results for this AM COIN DEALER procedure are in the results section. POCT-GLUCOSE METER Routine 06/24/2018 9:38 Results for this AM COIN DEALER procedure are in the results section. TISSUE EXAM AP Routine 06/24/2018 8:02 Results for this AM COIN DEALER procedure are in the results section. ENDOSCOPIC SINUS 06/24/2018 7:00 Pituitary adenoma SURGERY,REPAIR CSF AM COIN DEALER (HCC) [place] Special Needs (STEALTH NAVIGATION, LUMBAR DRAIN SET, LANDMARK CT SCAN ON ) TURBINECTOMY,NASAL 06/24/2018 7:00 AM COIN DEALER Pituitary adenoma (HCC) Special Needs (STEALTH NAVIGATION, LUMBAR DRAIN SET, LANDMARK CT SCAN ON ) ENDOSCOPIC SINUS 06/24/2018 7:00 AM COIN DEALER Pituitary adenoma SURGERY,ETHMOIDECTOMY W/ (HCC) SPHENOIDOTOMY Special Needs (STEALTH NAVIGATION, LUMBAR DRAIN SET, LANDMARK CT SCAN ON ) PROCEDURE W/ STEALTH 06/24/2018 7:00 AM COIN DEALER Pituitary adenoma (HCC) Special Needs (STEALTH NAVIGATION, LUMBAR DRAIN SET, LANDMARK CT SCAN ON ) ENDOSCOPIC CRANIOTOMY,REMOVAL 06/24/2018 7:00 AM COIN DEALER Pituitary adenoma ( HCC) TRANSSPHENOIDAL PITUITARY TUMOR Special Needs (STEALTH NAVIGATION, LUMBAR DRAIN SET, LANDMARK CT SCAN ON ) POCT-GLUCOSE METER Routine 06/24/2018 5:42 AM COIN DEALER SCREEN, URINE STAT 06/24/2018 5:16 AM COIN DEALER BASIC METABOLIC PANEL (7) Routine 06/24/2018 5:16 AM COIN DEALER CBC W/PLT COUNT & AUTO Routine 06/24/2018 5:07 AM COIN DEALER Results for this DIFFERENTIAL procedure are in the results section. PT/APTT Routine 06/24/2018 5:07 AM COIN DEALER CBC W/PLT COUNT & AUTO Routine 06/24/2018 5:07 AM COIN DEALER Results for this DIFFERENTIAL procedure are in the results section. POCT-GLUCOSE METER Routine 06/23/2018 9:21 PM COIN DEALER POCT-GLUCOSE METER Routine 06/23/2018 4:31 PM COIN DEALER BASIC METABOLIC PANEL (7) Routine 06/23/2018 4:13 PM COIN DEALER POCT-GLUCOSE METER Routine 06/23/2018 8:30 AM COIN DEALER POCT-GLUCOSE METER Routine 06/22/2018 11:34 PM COIN DEALER POCT-GLUCOSE METER Routine 06/22/2018 8:21 PM COIN DEALER POCT-GLUCOSE METER Routine 06/22/2018 5:07 PM COIN DEALER POCT-GLUCOSE METER Routine 06/22/2018 11:49 AM COIN DEALER POCT-GLUCOSE METER Routine 06/22/2018 8:30 AM COIN DEALER POCT-GLUCOSE METER Routine 06/21/2018 9:09 PM COIN DEALER POCT-GLUCOSE METER Routine 06/21/2018 5:20 PM COIN DEALER POCT-GLUCOSE METER Routine 06/21/2018 11:06 AM COIN DEALER ECHOCARDIOGRAM REPORT - SCAN 06/21/2018 9:21 AM COIN DEALER FOLLICLE STIMULATING HORMONE Routine 06/21/2018 9:11 AM COIN DEALER Results for this (FSH) procedure are in the results section. INSULIN-LIKE GROWTH FACTOR Routine 06/21/2018 9:11 AM COIN DEALER ACTH Routine 06/21/2018 9:11 AM COIN DEALER CORTISOL Routine 06/21/2018 9:11 AM COIN DEALER POCT-GLUCOSE METER Routine 06/21/2018 7:[address] BRAIN WITHOUT IV CONTRAST TERI 06/20/2018 9:48 PM COIN DEALER POCT-GLUCOSE METER Routine 06/20/2018 8:48 PM COIN DEALER 2D ECHO W/ DOPPLER Routine 06/20/2018 6:40 PM COIN DEALER Results for this (CW/PW/COLOR) procedure are in the results section. POCT-GLUCOSE METER Routine 06/20/2018 4:48 PM COIN DEALER POCT-GLUCOSE METER Routine 06/20/2018 1:06 PM COIN DEALER POCT-GLUCOSE METER Routine 06/20/2018 7:21 AM COIN DEALER POCT-GLUCOSE METER Routine 06/20/2018 5:22 AM COIN DEALER BASIC METABOLIC PANEL (7) STAT 06/20/2018 5:08 AM COIN DEALER POCT-GLUCOSE METER Routine 06/20/2018 12:[address]/CTA CAROTID TERI 06/19/2018 10:[address]/CTA BRAIN TERI 06/19/2018 10:46 PM COIN DEALER POCT-GLUCOSE METER Routine 06/19/2018 9:19 PM COIN DEALER POCT-GLUCOSE METER Routine 06/19/2018 5:06 PM COIN DEALER POCT-GLUCOSE METER Routine 06/19/2018 3:03 PM COIN DEALER POCT-GLUCOSE METER Routine 06/19/2018 12:27 PM COIN DEALER SCREEN, URINE Routine 06/19/2018 11:54 AM COIN DEALER OSMOLALITY, URINE Routine 06/19/2018 11:54 AM COIN DEALER RAPID DRUG SCREEN, URINE Routine 06/19/2018 11:54 AM COIN DEALER CBC W/PLT COUNT & AUTO Routine 06/19/2018 11:49 AM COIN DEALER Results for this DIFFERENTIAL procedure are in the results section. INSULIN-LIKE GROWTH FACTOR Routine 06/19/2018 11:49 AM COIN DEALER OSMOLALITY, SERUM Routine 06/19/2018 11:49 AM COIN DEALER T4, FREE Routine 06/19/2018 11:49 AM COIN DEALER C-REACTIVE PROTEIN Routine 06/19/2018 11:49 AM COIN DEALER HIV-1 ANTIGEN WITH HIV-1/2 Routine 06/19/2018 11:49 AM COIN DEALER Results for this ANTIBODY procedure are in the results section. RPR Routine 06/19/2018 11:49 AM COIN DEALER CBC W/PLT COUNT & AUTO Routine 06/19/2018 11:49 AM COIN DEALER Results for this DIFFERENTIAL procedure are in the results section. POCT-GLUCOSE METER Routine 06/19/2018 9:25 AM COIN DEALER POCT-GLUCOSE METER Routine 06/19/2018 5:51 AM COIN DEALER GROWTH HORMONE Routine 06/19/2018 3:49 AM COIN DEALER LUTEINIZING HORMONE (LH) Routine 06/19/2018 3:49 AM COIN DEALER ACTH Routine 06/19/2018 3:49 AM COIN DEALER PROLACTIN Routine 06/19/2018 3:49 AM COIN DEALER MR BRAIN WITHOUT & WITH IV STAT 06/19/2018 2:25 AM COIN DEALER Results for this CONTRAST procedure are in the results section. HEMOGLOBIN A1C Routine 06/19/2018 12:39 AM COIN DEALER TSH/FREE T4 IF INDICATED Routine 06/18/2018 11:32 PM COIN DEALER BASIC METABOLIC PANEL (7) STAT 06/18/2018 11:32 PM COIN DEALER URINALYSIS W/ REFLEX URINE Routine 06/18/2018 10:27 PM COIN DEALER Results for this CULTURE procedure are in the results section. after 06/27/2017 Results POC-Glucose meter (06/27/2018 12:07 PM COIN DEALER)Only the most recent of37 resultswithin the time period is included. POC-Glucose Meter 141 (H)Comment: TESTED AT 70 - 110 mg/dL [facility] [address] [facility] [address] Specimen Blood Performing Organization Address City/State/Zipcode Phone Number [address] [phone] CENTER CBC with platelet count + automated diff (06/27/2018 5:56 AM COIN DEALER)Only the most recent of5 resultswithin the time period is included. WBC 8.7 3.5 - 10.5 K/L [facility] RBC 4.82 3.93 - 5.22 M/L [facility] Hemoglobin 13.2 11.2 - 15.7 GM/DL [facility] Hematocrit 40.8 34.1 - 44.9 % [facility] MCV 84.6 79.4 - 94.8 fL [facility] MCH 27.4 25.6 - 32.2 pg [facility] MCHC 32.4 32.2 - 35.5 GM/DL [facility] RDW 13.2 11.7 - 14.4 % [facility] Platelets 233 150 - 450 K/CU MM [facility] MPV 11.5 9.4 - 12.3 fL [facility] nRBC 0 0 - 0 /100 WBC [facility] % Neutros 65 % [facility] % Lymphs 24 % [facility] % Monos 8 % [facility] % Eos 2 % [facility] % Baso 0 % [facility] # Neutros 5.65 1.56 - 6.13 K/L [facility] # Lymphs 2.07 1.18 - 3.74 K/L [facility] # Monos 0.70 (H) 0.24 - 0.36 K/L [facility] # Eos 0.16 0.04 - 0.36 K/L [facility] # Baso 0.02 0.01 - 0.08 K/L [facility] Immature Granulocytes-Relative 1 0 - 1 % [facility] Specimen Blood Performing Organization Address City/[facility] Phone Number [place] [phone] [place] [address] CENTER Basic Metabolic Panel (06/27/2018 5:56 AM COIN DEALER)Only the most recent of8 resultswithin the time period is included. Sodium 139 136 - 145 meq/L [facility] Potassium 4.1 3.5 - 5.1 meq/L [facility] Chloride 105 98 - 107 meq/L [facility] CO2 28 22 - 29 meq/L [facility] BUN 11 7 - 21 mg/dL [facility] Creatinine 0.69 0.57 - 1.25 mg/dL [facility] Glucose 163 (H) 70 - 105 mg/dL [facility] Calcium 8.6 8.4 - 10.2 mg/dL [facility] EGFR 91Comment: ESTIMATED GFR IS mL/min/1.73 sq m [facility] NOT ACCURATE [facility] CLEARANCE IN PREDICTING GLOMERULAR FILTRATION RATE. ESTIMATED GFR IS NOT APPLICABLE FOR DIALYSIS PATIENTS. Specimen Blood Performing Organization Address City/[facility] Phone Number [facility] [address] [place] [address] [place] Sodium, random urine (06/26/2018 11:11 PM COIN DEALER) Sodium Urine <20 meq/L [facility] Specimen Urine - Urine, Voided Narrative Performed At Reference Range: No Normals [facility] Performing Organization Address City/[facility]/Zipcode Phone Number [facility] [address] [place] [address] [place] [address] brain without IV contrast (06/26/2018 10:25 PM COIN DEALER)Only the most recent of2 resultswithin the time period is included. Narrative Performed At FINAL REPORT [employer] [facility] Head without contrast CLINICAL HISTORY: concern for pituitary apoplexy TECHNIQUE: Contiguous axial images through the head without contrast. This exam was performed according to the departmental dose optimization program which includes automated exposure control, adjustment of the mA and/or kV according to the patient size, and/or use of an iterative reconstruction technique. COMPARISON: CT head dated 06/20/2018. FINDINGS: Post surgical changes of a transsphenoidal sinus resection of a pituitary macroadenoma. There is a small amount of gas and blood is seen within the resection cavity.. Limited evaluation of the pituitary parenchyma and infundibulum on this noncontrast CT scan of the head. 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 Air-fluid levels in the bilateral maxillary and ethmoid sinuses. There is packing material seen in the sphenoid sinus. There is no CT evidence of acute infarct . Ventricles are normal in size and configuration.There is no hydrocephalus, midline shift, or apparent mass effect. Basilar cisterns are patent. The skull is intact. Mastoid air cells are clear. Intraorbital contents are unremarkable. IMPRESSION: Post surgical changes of a transsphenoidal sinus resection of a pituitary macroadenoma with a small amount of expected gas and blood is seen within the resection cavity. Limited evaluation for residual pituitary macroadenoma as well as limited evaluation of the pituitary parenchyma and infundibulum on this noncontrast CT scan of the head. Otherwise no intracranial abnormality identified. Signed: Brian Gamboa MD Report Verified Date/Time:06/26/2018 22:57:28 Reading Location: [address] Transitional Reading Room Procedure Note Interface, External Ris In - 06/26/2018 10:59 PM COIN DEALER FINAL REPORT CT Head without contrast CLINICAL HISTORY: concern for pituitary apoplexy TECHNIQUE: Contiguous axial images through the head without contrast. This exam was performed according to the departmental dose optimization program which includes automated exposure control, adjustment of the mA and/or kV according to the patient size, and/or use of an iterative reconstruction technique. COMPARISON: CT head dated 06/20/2018. FINDINGS: Post surgical changes of a transsphenoidal sinus resection of a pituitary macroadenoma. There is a small amount of gas and blood is seen within the resection cavity.. Limited evaluation of the pituitary parenchyma and infundibulum on this noncontrast CT scan of the head. 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 Air-fluid levels in the bilateral maxillary and ethmoid sinuses. There is packing material seen in the sphenoid sinus. There is no CT evidence of acute infarct . Ventricles are normal in size and configuration. There is no hydrocephalus, midline shift, or apparent mass effect. Basilar cisterns are patent. The skull is intact. Mastoid air cells are clear. Intraorbital contents are unremarkable. IMPRESSION: Post surgical changes of a transsphenoidal sinus resection of a pituitary macroadenoma with a small amount of expected gas and blood is seen within the resection cavity. Limited evaluation for residual pituitary macroadenoma as well as limited evaluation of the pituitary parenchyma and infundibulum on this noncontrast CT scan of the head. Otherwise no intracranial abnormality identified. Signed: Brian Gamboa MD Report Verified Date/Time: 06/26/2018 22:57:28 Reading Location: [facility] Transitional Reading Room Performing Organization Address City/State/Zipcode Phone Number RIS Specific gravity, urine (06/25/2018 4:23 AM COIN DEALER) Specific [place], UA 1.010 1.001 - 1.035 [facility] Specimen Urine - Urine, Fonseca Performing Organization Address City/[facility]/Zipcode Phone Number [facility] [address] [place] [address] [place] Osmolality, urine (06/25/2018 4:23 AM COIN DEALER)Only the most recent of2 resultswithin the time period is included. Osmolality, Ur 340 40-1,400 mOsm/kg [facility] Specimen Urine - Urine, Fonseca Performing Organization Address City/[facility]/Zipcode Phone Number [facility] [address] [place] [address] [place] Tissue Exam (06/24/2018 8:02 AM COIN DEALER) Case Report Surgical Pathology Report Case: [id number] [facility] Authorizing Provider:Alex Ruano MD Collected: 06/24/2018 0802 [facility] Ordering Location: [address] Received: 06/24/2018 0809 [place] Service Pathologist: Chon Caraballo MD Specimens: A) - Tumor, pituitary tumor B) - Tumor, pituitary tumor DIAGNOSIS A.PITUITARY GLAND, TRANSSPHENOIDAL HYPOPHYSECTOMY: [facility] NULL CELL ADENOMA INVADING RESPIRATORY MUCOSA [facility] B. PITUITARY GLAND, TRANSSPHENOIDAL HYPOPHYSECTOMY: NULL CELL ADENOMA ENTRAPPED ADENOHYPOPHYSIS Signing Pathologist Direct Phone Line: [phone] [address] [facility] performed on the second [facility] specimen show that the tumor CENTER has no staining for growth hormone, LH, FSH, TSH, prolactin, or ACTH. 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 The MIB-1 proliferation index is less than 1%. CPT Code(s) 14156 x 2; 91137; 66088; 59544 [facility] x 6; 29022 [facility] CLINICAL HISTORY Pituitary adenoma [facility] SPECIMEN SOURCE A. Pituitary tumor; B. [facility] Pituitary tumor [facility] GROSS DESCRIPTION A. The specimen is received fresh for frozen section diagnosis and labeled "pituitary tumor" and consists of a single fragment of tariq -red soft tissue measuring 0.5 cm in greatest dimension submitted ent [facility] for frozen section diagnosis, and touch preps are performed. CG/ew [facility] B. Received fresh labeled "tumor", description "pituitary tumor" is a 2.0 x 1.0 x 0.3 cm aggregate of pink-tariq to hannah-white rubbery friable soft tissue. The specimen is entirely submitted in cassette B1. DB/pl INTRAOPERATIVE FROZEN SECTION DIAGNOSIS, PITUITARY TUMOR: [facility] CONSULTATION ADENOMA EXTENDING INTO RESPIRATORY MUCOSA PER DR. CARABALLO [facility] MICROSCOPIC DESCRIPTION Performed on A and B [facility] SPECIAL STUDIES The interpretation of this case included the use of immunohistochemistry or special stains. [facility] technical testing was performed at [facility] Pathology Laboratory where it was developed and its performance characteristics were determined. It has not be CENTER en cleared or approved by the U.S. Food and Drug Administration. The FDA has determined that such clearance or approval is not necessary. The test is used for clinical purposes. It should not be regarde d as investigational or for research. This laboratory is certified under the Clinical Laboratory Improvement Amendments of 1988 (CLIA-88) as qualified to perform high complexity clinical laboratory testing. Specimen Tissue - Tumor Performing Organization Address City/State/Zipcode Phone Number [place] [phone] [place] [address] [place] Screen, urine (06/24/2018 5:16 AM COIN DEALER)Only the most recent of2 resultswithin the time period is included. Preg Test, Ur Negative [facility] Specimen Urine Performing Organization Address City/[facility]/Zipcode Phone Number [place] [phone] [place] [address] CENTER PT/aPTT (06/24/2018 5:07 AM COIN DEALER) Protime 13.8 11.7 - 14.7 seconds [facility] INR 1.1 <=5.9 [facility] PTT 32.0 22.5 - 36.0 seconds [facility] Specimen Blood Narrative Performed At RECOMMENDED COUMADIN/WARFARIN INR THERAPY [facility] RANGES STANDARD DOSE: 2.0 - 3.0 Includes: PROPHYLAXIS for venous thrombosis, systemic embolization; TREATMENT for venous thrombosis and/or pulmonary embolus. HIGH RISK: Target INR is 2.5-3.5 for patients with mechanical heart valves. Performing Organization Address [facility] Phone Number [address] [phone] CENTER ECHOCARDIOGRAM REPORT - SCAN (06/21/2018 9:21 AM COIN DEALER) Narrative Performed At Cortisol (06/21/2018 9:11 AM COIN DEALER) Cortisol, Total 4.7 3.7 - 19.4 ug/dL [facility] Specimen Blood - Arm, Right Performing Organization Address [facility] Phone Number [address] [address] CENTER Insulin-like growth factor (06/21/2018 9:11 AM COIN DEALER)Only the most recent of2 resultswithin the time period is included. Igf-1(Somatomedin-C) 36 (L) 52 - 328 ng/mL [facility] Z-Score Male: DNR [facility] Z-Score Female: -2.6 (L) -2.0 - 2.0 SD [facility] Comment: INCORPORATED This test was developed and its analytical performance characteristics have been determined by [employer] [place]. It has not been cleared or approved by FDA. This assay has been validated pursuant to the CLIA regulations and is used for clinical purposes. Specimen Blood - Arm, Right Narrative Performed At Performing Lab [facility] [employer] [place] [address] [place] [address] Sixto Rodrigez MD, PhD, ANABELL Performing Organization Address City/[facility] Phone Number [facility] [place] [address] INCORPORATED [address] [facility] ACTH (06/21/2018 9:11 AM COIN DEALER)Only the most recent of2 resultswithin the time period is included. ACTH 17 6 - 50 pg/mL [facility] Comment: Reference range applies only to the specimens collected between 7am-10am. Specimen Blood - Arm, Right Narrative Performed At Performing Lab [facility] [employer] [place] [id number] [place] [address] Sixto Rodrigez MD, PhD, ANABELL Performing Organization Address [facility] Phone Number [place] [address] [place] [address] Follicle stimulating hormone (FSH) (06/21/2018 9:11 AM COIN DEALER) Fsh 2.3 mIU/mL [facility] Comment: Adult female reference ranges for FSH: Follicular Phase: 2.5- 10.2 mIU/mL Mid-Cycle:3.1- 17.7 mIU/mL Luteal Phase: 1.5-9.1 mIU/mL Postmenopausal:23.0-116.3 mIU/mL Children (<18 Years Old): FSH reference ranges established on post-pubertal patient population. Reference range not established for pre-pubertal patients using this assay. For pre-pubertal patients, the Grabbed FSH, Pediatrics assay is recommended (test code 46120). Specimen Blood - Arm, Right Narrative Performed At Performing Lab [facility] [employer] [place] [id number] [place] [address] Sixto Rodrigez MD, PhD, ANABELL Performing Organization Address [facility] Phone Number [place] [address] [place] [address] 2D Echo W/Doppler(CW/PW/Color) (06/20/2018 6:40 PM COIN DEALER) Ejection Fraction [facility] ECHO [facility] Narrative Performed At Transthoracic Echocardiography Report (TTE) [facility] ECHO HEARTLAB [facility]ON 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 Elaina Grajeda [facility] Clinical Resource Manager Tony Fernandez Interpreting Tarik Domínguez MD Procedure Type of Study TTE procedure:2DECHO [...] External Ris In - 06/21/2018 8:37 AM COIN DEALER Transthoracic Echocardiography Report (TTE) Demographics Patient Name VY STOUT Date of Study 06/20/2018 Gender Female Visit Number [id number] Race Unknown Room Number 2251 Number Date of 1970 Referring Physician Althea Mireles MD 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 48 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 C013T Transitional Reading Room Procedure Note Interface, External Ris In - 06/20/2018 1:05 AM COIN DEALER FINAL REPORT CLINICAL HISTORY: Stroke TECHNIQUE: Initially, [...] Report Verified Date/Time: 06/20/2018 01:03:44 Reading Location: [address] Transitional Reading Room Performing Organization Address City/State/Zipcode Phone Number [employer] CTA brain (06/19/2018 10:46 PM COIN DEALER) Narrative Performed At FINAL REPORT [employer] CLINICAL HISTORY: Stroke TECHNIQUE: Initially, noncontrast head [...] MD Report Verified Date/Time:06/20/2018 01:03:44 Reading Location: [address] Transitional Reading Room Procedure Note Interface, External Ris In - 06/20/2018 1:05 AM COIN DEALER FINAL REPORT CLINICAL HISTORY: Stroke TECHNIQUE: Initially, [...] Report Verified Date/Time: 06/20/2018 01:03:44 Reading Location: [facility] Transitional Reading Room Performing Organization Address City/State/Zipcode Phone Number [facility] Rapid drug screen, urine (06/19/2018 11:54 AM COIN DEALER) Barbiturate Screen Negative Negative [facility] Benzodiazepine Screen Negative Negative [facility] Cocaine (Metab.) Screen Negative Negative [facility] Methadone Screen Negative Negative [facility] Opiate Screen Negative Negative [facility] Cannabinoid Screen Negative Negative [facility] Amph/Methamph Screen Negative Negative [facility] Phencyclidine Screen Negative Negative [facility] Oxycodone Screen Negative Negative [facility] Specimen Urine - Urine, Voided Narrative Performed At DRUGCUTOFF [facility] CONC. Cocaine 300 ng/mL Vupnpmzrdrx91 ng/mL Eslddwuksvrxbn679 ng/mL Barbiturate 200 ng/mL Anzlhywvstgng99 ng/mL Arttxr357 ng/mL Methadone 300 ng/mL Amphetamine/ 1000 ng/mL Methamphetamine Oxycodone 300 ng/mL This assay provides an unconfirmed qualitative test result for the clinical management of patients in emergency situations. Chain of custody not maintained. Some czwb-aup-ejgmlos medications, as well as adulterants, may cause inaccurate results. Clinical correlation should be applied. A more comprehensive drug screen or confirmation of a detected drug may be performed upon request. Performing Organization Address [facility] Phone Number [address] [address] CENTER HIV-1 Antigen with HIV-1/2 Antibody (06/19/2018 11:49 AM COIN DEALER) HIV-1 Antigen with HIV 1&2 NON-REACTIVE Nonreactive [facility] Specimen Blood - Arm, Left Performing Organization Address [facility] Phone Number [address] [address] CENTER C-Reactive Protein (06/19/2018 11:49 AM COIN DEALER) CRP 0.81 (H) 0.00 - 0.50 mg/dL [facility] Specimen Blood - Arm, Left Performing Organization Address [facility] Phone Number [address] [address] CENTER RPR (06/19/2018 11:49 AM COIN DEALER) RPR Nonreactive Nonreactive [facility] Specimen Blood - Arm, Left Performing Organization Address [facility] Phone Number [address] [address] CENTER T4, free (06/19/2018 11:49 AM COIN DEALER) Free T4 0.89 0.70 - 1.48 ng/dL [facility] Specimen Blood - Arm, Left Performing Organization Address [facility] Phone Number [address] [phone] CENTER Osmolality, serum (06/19/2018 11:49 AM COIN DEALER) Osmolality Serum 310 (H) 275 - 295 mOsm/kg [facility] Specimen Blood - Arm, Left Performing Organization Address [facility] Phone Number [address] [phone] [place] Prolactin (06/19/2018 3:49 AM COIN DEALER) Prolactin 23.34 5.18 - 26.53 ng/mL [facility] Specimen Blood Performing Organization Address [facility] Phone Number [address] [address] [place] Growth hormone (06/19/2018 3:49 AM COIN DEALER) Growth Hormone <0.1 < OR=7.1 ng/mL [facility] [...] Guideline. J Clin Endocrinol Metab 2014; 99: 1872-0324]. Using GH stimulation testing, the following result at any point in the timed sequence makes GH deficiency unlikely: Adults (> or=20 years): Insulin Hypoglycemia > or=5.1 ng/mL Arginine/GHRH> or=4.1 ng/mL Glucagon > or=3.0 ng/mL Children (<20 years): All Stimulation Tests> or=10.0 ng/mL Specimen Blood Narrative Performed At Performing Lab [facility] [employer] [address] [place] [address] Sixto Rodrigez MD, PhD, ANABELL Performing Organization Address City/[facility] Phone Number [facility] [address] INCORPORATED [address] [facility] Luteinizing hormone (LH) (06/19/2018 3:49 AM COIN DEALER) LH, Serum 0.2 mIU/mL [facility] Comment: Adult Female Reference Ranges for LH: Follicular Phase:1.9-12.5 mIU/mL Mid-Cycle Peak:8.7-76.3 mIU/mL Luteal Phase:0.5-16.9 mIU/mL Postmenopausal: 10.0-54.7 mIU/mL Children (<18 Years Old): LH reference ranges established on post-pubertal patient population. Reference range not established for pre-pubertal patients using this assay. For pre-pubertal patients, the [employer] LH, Pediatric assay is recommended (order code 10724). Specimen Blood Narrative Performed At Performing Lab [facility] [employer] [address] [place] [address] Sixto Rodrigez MD, PhD, ANABELL Performing Organization Address City/State/Zipcode [place] [address] INCORPORATED [address] [facility] MR brain without & with IV contrast (06/19/2018 2:25 AM COIN DEALER) Narrative Performed At FINAL REPORT [employer] MRI brain with and without contrast Comparison:None. 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 Discussion: Multiplanar MR imaging of the brain and sella was provided kwd-lsz-gxth IV gadolinium administration using T1, T2, FLAIR, [...] Report Verified Date/Time: 06/19/2018 02:25:15 Reading Location: [facility] B1 C013 CT Body Reading Room Performing Organization Address City/State/Zipcode Phone Number GE RIS Hemoglobin A1c (06/19/2018 12:39 AM COIN DEALER) Hemoglobin A1C 7.9 (H) 4.3 - 6.1 % [facility] Specimen Blood Performing Organization Address City/[facility] Phone Number [address] [address] [phone] CENTER TSH/Free T4 If Indicated (06/18/2018 11:32 PM COIN DEALER) TSH 0.41 0.35 - 4.94 uIU/mL [facility] Specimen Blood Performing Organization Address [facility] Phone Number [address] [address] [phone] [place] Urinalysis w/Microscopic + Reflex to Culture (06/18/2018 10:27 PM COIN DEALER) Color, UA Yellow [facility] Clarity, UA Clear [facility] Specific [place], UA 1.011 1.001 - 1.035 [facility] pH, UA 5.0 5.0 - 8.0 [facility] Protein, UA Negative Negative [facility] Glucose, UA >1000 mg/dL (A) Negative [facility] Ketones, UA 20 mg/dL (A) Negative [facility] Bilirubin, UA Negative Negative [facility] Blood, UA Negative Negative [facility] Nitrite, UA Negative Negative [facility] Leukocytes, UA Negative Negative [facility] Urobilinogen, UA 0.2 0.2 - 1.0 mg/dL [facility] RBC, UA <1 /HPF [facility] WBC, UA <1 /HPF [facility] Squam Epithel, UA <1 /HPF [facility] Specimen Source [facility] Specimen Urine - Urine, Clean Catch Performing Organization Address City/State/Zipcode Phone Number [facility] [address] [place], [place] [id number] [phone] CENTER after 06/27/2017 Insurance Payer Benefit Plan / Subscriber ID Type Phone Address Group BLUE CROSS/BLUE BCBS OS xxxxxxxxxxxx PPO [phone] [address] SHIELD POS/PPO/[place] [address] ([place]) [address] [place] [phone] Advance Directives Patient has advance care planning documents, and code status on file. For more information, please contact:[facility] [place] [address] [phone] Code Status Date Activated Date Inactivated Comments Full Code 06/26/2018 1:38 PM This code status was determined by: Patient Full Code 06/18/2018 8:39 PM 06/26/2018 11:54 AM This code status was determined by: Patient
--- OUTSIDE RECORDS SUMMARY | 2018-06-28 13:35 | XMS REPORT ---
:1970 Author Organization eClinicalWorks Care Team Providers Name Role Phone Randall, Neeru Provider Role Unavailable Allergies No Known [...]
--- OUTSIDE RECORDS SUMMARY | 2018-06-28 13:35 | XMS REPORT ---
[...] End Date Status Dosage System Date Losartan [facility] 37686553984 50-12.5 MG February 12, Active 1 tablet Potassium-HCTZ Orally Once a 2017 day Results No Known Results Summary Purpose eClinicalWorks Submission
--- OUTSIDE RECORDS SUMMARY | 2018-06-28 13:35 | XMS REPORT ---
[...] End Status Dosage System Date Date Diflucan [facility] [id number] 150 MG Orally Feb 20Feb Active 1 tablet Once a day 2017 Nitrofurantoin ND 51756735022 100 MG Orally Feb 20Feb Active 1 capsule Macrocrystal BID 2017 12, with food 2018 or milk GlyBURIDE ND 27015125705 5 MG Orally January 21, Active 1 tablet Once a day 2017 with breakfast or the first main meal of the day Levothyroxine ND 64707844297 88 MCG Oral Active TAKE 1 Sodium TABLET BY MOUTH EVERY MORNING Losartan ND 09299340748 50-12.5 MG February 12, Active 1 tablet Potassium-HCTZ Orally Once a 2018 day Valsartan-Hydroch ND 32838332198 80-12.5 MG Oral Active TAKE 1 lorothiazide TABLET BY MOUTH EVERY DAY Results Name Result Date Reference Range Unit Abnormality Flag THINPREP TIS PAP AND HPV mRNA E6/E7, CHLAMYDIA/N.GONORRHOEAE URINALYSIS AUTO W/O SCOPE (98340) ----PROTEIN N [id number] ----pH 5.5 20180220 ----NIT P [id number] ----CONCEPCION 1+ [id number] ----URO 1.0 [id number] ----SPECIFIC GRAVITY 1.015 20180220 ----BLO TR [id number] ----BILIRUBIN N [id number] ----KETONES N [id number] ----GLUCOSE N [id number] Summary Purpose eClinicalWorks Submission
--- OUTSIDE RECORDS SUMMARY | 2018-06-28 13:35 | XMS REPORT ---
:[address] [facility] Address [address] [place] [address] Dr. Holbrook [address] [place] [id number] Care Team Providers Name Role Phone DAJUAN GEORGE Unavailable Unavailable MITCEHLL DOBSON Unavailable Unavailable Problems This patient has no known problems. Allergies, Adverse Reactions, Alerts This patient has no known allergies or adverse reactions. Medications This patient has no known medications. Results Test Description Test Time Test Comments Text Results Atomic Results Result Comments TISSUE EXAM 2018-06-28 08:38:00 Surgical Pathology Report Case: [id number] Authorizing Provider: Alex Ruano MD Collected: 06/24/2018801 Ordering Location: [address] Received: 06/24/2018 0809 Service Pathologist: Chon Andino MD Specimens: A) - Tumor, pituitary tumor B) - Tumor, pituitary tumor A.PITUITARY GLAND, TRANSSPHENOIDAL 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 PITUITARY GLAND, TRANSSPHENOIDAL HYPOPHYSECTOMY:NULL CELL ADENOMAENTRAPPED ADENOHYPOPHYSIS Signing Pathologist Direct Phone Line: [phone] signed by Chon Andino MD on 06/28/2018 at 8:38 AMImmunoperoxidase stains performed on the second specimen show that the tumor has no staining for growth hormone, LH, FSH, TSH, prolactin, or ACTH. 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 The MIB-1 proliferation index is less than 1%. 24443 x 2; 39108; 22663; 85900 x 6; 96747Icevkkzax adenoma A. Pituitary tumor; B. Pituitary tumorA. The specimen is received fresh for frozen section diagnosis and labeled "pituitary tumor" and consists of a single fragment of tariq-red soft tissue measuring 0.5 cm in greatest dimension submitted entirely for frozen section diagnosis, and touch preps are performed. CG/jarad B. Received fresh labeled "tumor", description "pituitary tumor" is a 2.0 x 1.0 x 0.3 cm aggregate of pink-tariq to hannah-white rubbery friable soft tissue. The specimen is entirely submitted in cassette B1. DB/Jeff SECTION DIAGNOSIS, PITUITARY TUMOR: ADENOMA EXTENDING INTO RESPIRATORY MUCOSA PER DR. Henleyformed on A and BThe interpretation of this case included the use of immunohistochemistry or special stains. Immunohistochemistry technical testing was performed at [facility], Pathology Laboratory where it was developed and its performance characteristics were determined. It has not been cleared or approved by the U.S. Food and Drug Administration. The FDA has determined that such clearance or approval is not necessary. The test is used for clinical purposes. It should not be regarded as investigational or for research. This laboratory is certified under the Clinical Laboratory Improvement Amendments of 1988 (CLIA-88) as qualified to perform high complexity clinical laboratory testing. POCT-GLUCOSE METER 2018-06-27 12:43:00 Test Item Value Reference Range Comments POC-GLUCOSE METER (BEAKER) (test 141 mg/dL 70-110 TESTED AT [facility] [address] [place] [address] peyc=7723) [facility] [address] POCT-GLUCOSE [id number] 12:06:00 Test Item Value Reference Range Comments POC-GLUCOSE METER (BEAKER) 217 mg/dL 70-110 TESTED AT [address] (test imgp=2808) [facility] [address] BASIC METABOLIC [id number] 07:18:00 Test Item Value Reference Range Comments SODIUM (BEAKER) (test 139 meq/L 136-145 sgsj=266) POTASSIUM (BEAKER) (test 4.1 meq/L 3.5-5.1 fmau=452) CHLORIDE (BEAKER) (test 105 meq/L 98-107 etoc=269) CO2 (BEAKER) (test 28 meq/L 22-29 rdbw=519) BLOOD UREA NITROGEN 11 mg/dL 7-21 (BEAKER) (test qnka=799) CREATININE (BEAKER) (test 0.69 mg/dL 0.57-1.25 cwmt=294) GLUCOSE RANDOM (BEAKER) 163 mg/dL 70-105 (test phug=750) CALCIUM (BEAKER) (test 8.6 mg/dL 8.4-10.2 xrnp=399) EGFR (BEAKER) (test 91 mL/min/1.73 sq m ESTIMATED GFR IS NOT ywel=5449) ACCURATE CREATININE CLEARANCE IN PREDICTING GLOMERULAR FILTRATION RATE. ESTIMATED GFR IS NOT APPLICABLE FOR DIALYSIS PATIENTS. CBC W/PLT COUNT & AUTO [id number] 06:49:00 Test Item Value Reference Range Comments WHITE BLOOD CELL COUNT (BEAKER) (test swgq=048) 8.7 K/ L 3.5-10.5 RED BLOOD CELL COUNT (BEAKER) (test vzjv=204) 4.82 M/ L 3.93-5.22 HEMOGLOBIN (BEAKER) (test ilbj=780) 13.2 GM/DL 11.2-15.7 HEMATOCRIT (BEAKER) (test rlbo=152) 40.8 % 34.1-44.9 MEAN CORPUSCULAR VOLUME (BEAKER) (test rugh=428) 84.6 fL 79.4-94.8 MEAN CORPUSCULAR HEMOGLOBIN (BEAKER) (test 27.4 pg 25.6-32.2 khyq=093) MEAN CORPUSCULAR HEMOGLOBIN CONC (BEAKER) (test 32.4 GM/DL 32.2-35.5 lckt=085) RED CELL DISTRIBUTION WIDTH (BEAKER) (test 13.2 % 11.7-14.4 kjvq=342) PLATELET COUNT (BEAKER) (test kmve=373) 233 K/CU MM 150-450 MEAN PLATELET VOLUME (BEAKER) (test aern=003) 11.5 fL 9.4-12.3 NUCLEATED RED BLOOD CELLS (BEAKER) (test 0 /100 WBC 0-0 sdvv=328) NEUTROPHILS RELATIVE PERCENT (BEAKER) (test 65 % dydm=680) LYMPHOCYTES RELATIVE PERCENT (BEAKER) (test 24 % psnn=278) MONOCYTES RELATIVE PERCENT (BEAKER) (test 8 % zapw=067) EOSINOPHILS RELATIVE PERCENT (BEAKER) (test 2 % anlr=736) BASOPHILS RELATIVE PERCENT (BEAKER) (test 0 % fizj=378) NEUTROPHILS ABSOLUTE COUNT (BEAKER) (test 5.65 K/ L 1.56-6.13 yxvi=558) LYMPHOCYTES ABSOLUTE COUNT (BEAKER) (test 2.07 K/ L 1.18-3.74 dqqo=677) MONOCYTES ABSOLUTE COUNT (BEAKER) (test 0.70 K/ L 0.24-0.36 ianh=941) EOSINOPHILS ABSOLUTE COUNT (BEAKER) (test 0.16 K/ L 0.04-0.36 nkfi=437) BASOPHILS ABSOLUTE COUNT (BEAKER) (test 0.02 K/ L 0.01-0.08 crgb=536) IMMATURE GRANULOCYTES-RELATIVE PERCENT (BEAKER) 1 % 0-1 (test pprr=7848) BASIC METABOLIC [id number] 23:52:00 Test Item Value Reference Range Comments SODIUM (BEAKER) (test 139 meq/L 136-145 afpp=456) POTASSIUM (BEAKER) (test 4.0 meq/L 3.5-5.1 Specimen slightly crfp=665) hemolyzed CHLORIDE (BEAKER) (test 103 meq/L 98-107 cuac=041) CO2 (BEAKER) (test 28 meq/L 22-29 nvtl=266) BLOOD UREA NITROGEN 12 mg/dL 7-21 (BEAKER) (test idpa=471) CREATININE (BEAKER) (test 0.72 mg/dL 0.57-1.25 Specimen slightly pmyw=250) hemolyzed GLUCOSE RANDOM (BEAKER) 193 mg/dL 70-105 (test ctbz=076) CALCIUM (BEAKER) (test 8.6 mg/dL 8.4-10.2 ujvv=936) EGFR (BEAKER) (test 86 mL/min/1.73 sq m ESTIMATED GFR IS NOT plxf=8459) ACCURATE CREATININE CLEARANCE IN PREDICTING GLOMERULAR FILTRATION RATE. ESTIMATED GFR IS NOT APPLICABLE FOR DIALYSIS PATIENTS. SODIUM, RANDOM [id number] 23:49:00 Test Item Value Reference Range Comments SODIUM URINE (BEAKER) (test soso=470) < meq/L Reference Range: No NormalsCBC W/PLT COUNT & AUTO [id number] 23: 35:00 Test Item Value Reference Range Comments WHITE BLOOD CELL COUNT (BEAKER) (test amnm=983) 9.7 K/ L 3.5-10.5 RED BLOOD CELL COUNT (BEAKER) (test wkid=606) 4.46 M/ L 3.93-5.22 HEMOGLOBIN (BEAKER) (test pnsc=584) 12.2 GM/DL 11.2-15.7 HEMATOCRIT (BEAKER) (test vqrf=253) 37.8 % 34.1-44.9 MEAN CORPUSCULAR VOLUME (BEAKER) (test wnhu=360) 84.8 fL 79.4-94.8 MEAN CORPUSCULAR HEMOGLOBIN (BEAKER) (test 27.4 pg 25.6-32.2 fxhu=798) MEAN CORPUSCULAR HEMOGLOBIN CONC (BEAKER) (test 32.3 GM/DL 32.2-35.5 bccq=636) RED CELL DISTRIBUTION WIDTH (BEAKER) (test 13.0 % 11.7-14.4 wczb=025) PLATELET COUNT (BEAKER) (test lfnu=192) 210 K/CU MM 150-450 MEAN PLATELET VOLUME (BEAKER) (test yopf=699) 11.4 fL 9.4-12.3 NUCLEATED RED BLOOD CELLS (BEAKER) (test 0 /100 WBC 0-0 hpci=243) NEUTROPHILS RELATIVE PERCENT (BEAKER) (test 61 % uotv=768) LYMPHOCYTES RELATIVE PERCENT (BEAKER) (test 28 % djyl=592) MONOCYTES RELATIVE PERCENT (BEAKER) (test 8 % bmis=420) EOSINOPHILS RELATIVE PERCENT (BEAKER) (test 2 % ltoz=616) BASOPHILS RELATIVE PERCENT (BEAKER) (test 0 % obpi=266) NEUTROPHILS ABSOLUTE COUNT (BEAKER) (test 5.87 K/ L 1.56-6.13 ojsb=950) LYMPHOCYTES ABSOLUTE COUNT (BEAKER) (test 2.72 K/ L 1.18-3.74 jgdc=652) MONOCYTES ABSOLUTE COUNT (BEAKER) (test 0.80 K/ L 0.24-0.36 gjoz=066) EOSINOPHILS ABSOLUTE COUNT (BEAKER) (test 0.22 K/ L 0.04-0.36 hnwx=405) BASOPHILS ABSOLUTE COUNT (BEAKER) (test 0.03 K/ L 0.01-0.08 qddp=559) IMMATURE GRANULOCYTES-RELATIVE PERCENT (BEAKER) 1 % 0-1 (test oipd=2293) CT, BRAIN, WITHOUT [id number] 22:57:00FINAL REPORT CT Head without contrast CLINICAL HISTORY: concern for pituitaryapoplexy TECHNIQUE: Contiguous axial images through the head without contrast. This exam was performed according to the departmental dose optimization program which includes automated exposure control,adjustment of the mA and/or kV according to the patient size, and/or use of an iterative reconstruction technique. COMPARISON: CT head dated 06/20/2018. FINDINGS:Post surgical changes of a transsphenoidal sinus resection [...] is packing material seen in the sphenoid sinus.There is no CT evidence of acute infarct . Ventricles are normal in size and configuration. Thereis no hydrocephalus, midline shift, or apparent mass effect. Basilar cisterns are patent. The skull is intact. Mastoid air cells are clear. Intraorbital contents are unremarkable. 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 Limited evaluation for residual pituitary macroadenoma as well as limited evaluation of the pituitary parenchyma and infundibulum on this noncontrast CT scan of the head. Otherwise no intracranial abnormality identified. Signed: Brian Gamboa Verified Date/Time: 06/26/2018 22:57:28 Reading [address] POCT-GLUCOSE [id number] 21:07:00 Test Item Value Reference Range Comments POC-GLUCOSE METER (BEAKER) 211 mg/dL 70-110 TESTED AT [address] (test lphj=2739) [facility] [address] BASIC METABOLIC [id number] 14:29:00 Test Item Value Reference Range Comments SODIUM (BEAKER) (test 137 meq/L 136-145 hpie=417) POTASSIUM (BEAKER) (test 3.6 meq/L 3.5-5.1 uhpz=317) CHLORIDE (BEAKER) (test 100 meq/L 98-107 tvrk=425) CO2 (BEAKER) (test 32 meq/L 22-29 axcp=522) BLOOD UREA NITROGEN 12 mg/dL 7-21 (BEAKER) (test ygwx=831) CREATININE (BEAKER) (test 0.71 mg/dL 0.57-1.25 eirm=008) GLUCOSE RANDOM (BEAKER) 182 mg/dL 70-105 (test blfm=144) CALCIUM (BEAKER) (test 8.7 mg/dL 8.4-10.2 stwq=460) EGFR (BEAKER) (test 88 mL/min/1.73 sq m ESTIMATED GFR IS NOT nnmu=8632) ACCURATE CREATININE CLEARANCE IN PREDICTING GLOMERULAR FILTRATION RATE. ESTIMATED GFR IS NOT APPLICABLE FOR DIALYSIS PATIENTS. CBC W/PLT COUNT & AUTO [id number] 14:25:00 Test Item Value Reference Range Comments WHITE BLOOD CELL COUNT (BEAKER) (test clhj=513) 12.3 K/ L 3.5-10.5 RED BLOOD CELL COUNT (BEAKER) (test pvif=378) 4.76 M/ L 3.93-5.22 HEMOGLOBIN (BEAKER) (test xrog=745) 13.1 GM/DL 11.2-15.7 HEMATOCRIT (BEAKER) (test skfr=570) 40.6 % 34.1-44.9 MEAN CORPUSCULAR VOLUME (BEAKER) (test xiyy=779) 85.3 fL 79.4-94.8 MEAN CORPUSCULAR HEMOGLOBIN (BEAKER) (test 27.5 pg 25.6-32.2 cjiz=846) MEAN CORPUSCULAR HEMOGLOBIN CONC (BEAKER) (test 32.3 GM/DL 32.2-35.5 dbgi=006) RED CELL DISTRIBUTION WIDTH (BEAKER) (test 13.1 % 11.7-14.4 kfxo=557) PLATELET COUNT (BEAKER) (test hhct=456) 254 K/CU MM 150-450 MEAN PLATELET VOLUME (BEAKER) (test oftt=907) 11.1 fL 9.4-12.3 NUCLEATED RED BLOOD CELLS (BEAKER) (test 0 /100 WBC 0-0 vmdj=603) NEUTROPHILS RELATIVE PERCENT (BEAKER) (test 68 % ggnu=577) LYMPHOCYTES RELATIVE PERCENT (BEAKER) (test 24 % atos=368) MONOCYTES RELATIVE PERCENT (BEAKER) (test 6 % eieh=889) EOSINOPHILS RELATIVE PERCENT (BEAKER) (test 1 % bpkm=095) BASOPHILS RELATIVE PERCENT (BEAKER) (test 0 % wlzj=154) NEUTROPHILS ABSOLUTE COUNT (BEAKER) (test 8.42 K/ L 1.56-6.13 gkyx=924) LYMPHOCYTES ABSOLUTE COUNT (BEAKER) (test 2.90 K/ L 1.18-3.74 vrjw=777) MONOCYTES ABSOLUTE COUNT (BEAKER) (test 0.79 K/ L 0.24-0.36 hifp=108) EOSINOPHILS ABSOLUTE COUNT (BEAKER) (test 0.07 K/ L 0.04-0.36 zlvq=735) BASOPHILS ABSOLUTE COUNT (BEAKER) (test 0.05 K/ L 0.01-0.08 vrka=028) IMMATURE GRANULOCYTES-RELATIVE PERCENT (BEAKER) 1 % 0-1 (test lrdd=7429) POCT-GLUCOSE [id number] 13:38:00 Test Item Value Reference Range Comments POC-GLUCOSE METER (BEAKER) 219 mg/dL 70-110 TESTED AT [address] (test nldp=2816) [place] [id number] POCT-GLUCOSE [id number] 12:34:00 Test Item Value Reference Range Comments POC-GLUCOSE METER (BEAKER) 193 mg/dL 70-110 TESTED AT [address] (test tyan=6600) [place] [id number] POCT-GLUCOSE [id number] 16:17:00 Test Item Value Reference Range Comments POC-GLUCOSE METER (BEAKER) 244 mg/dL 70-110 TESTED AT [address] (test duyp=3750) [place] [address] POCT-GLUCOSE [id number] 12:08:00 Test Item Value Reference Range Comments POC-GLUCOSE METER (BEAKER) 229 mg/dL 70-110 TESTED AT [address] (test tmff=9646) [place] [address] POCT-GLUCOSE [id number] 08:27:00 Test Item Value Reference Range Comments POC-GLUCOSE METER (BEAKER) 280 mg/dL 70-110 TESTED AT [address] (test zvhl=1814) [facility] [address] OSMOLALITY, [id number] 05:16:00 Test Item Value Reference Range Comments OSMOLALITY URINE (BEAKER) (test xnmf=259) 340 mOsm/kg 40-1,400 SPECIFIC GRAVITY, [id number] 04:53:00 Test Item Value Reference Range Comments SPECIFIC GRAVITY UA (BEAKER) (test cuka=933) 1.010 1.001-1.035 POCT-GLUCOSE [id number] 22:29:00 Test Item Value Reference Range Comments POC-GLUCOSE METER (BEAKER) 257 mg/dL 70-110 TESTED AT [address] (test wdyl=9472) [place] [address] BASIC METABOLIC [id number] 17:49:00 Test Item Value Reference Range Comments SODIUM (BEAKER) (test 137 meq/L 136-145 mill=675) POTASSIUM (BEAKER) (test 4.6 meq/L 3.5-5.1 lefy=687) CHLORIDE (BEAKER) (test 102 meq/L 98-107 thaa=240) CO2 (BEAKER) (test 26 meq/L 22-29 vtwm=677) BLOOD UREA NITROGEN 14 mg/dL 7-21 (BEAKER) (test jrap=112) CREATININE (BEAKER) (test 0.78 mg/dL 0.57-1.25 qdpc=469) GLUCOSE RANDOM (BEAKER) 246 mg/dL 70-105 (test jvhs=940) CALCIUM (BEAKER) (test 8.7 mg/dL 8.4-10.2 qfxc=477) EGFR (BEAKER) (test 79 mL/min/1.73 sq m ESTIMATED GFR IS NOT pdau=1462) ACCURATE CREATININE CLEARANCE IN PREDICTING GLOMERULAR FILTRATION RATE. ESTIMATED GFR IS NOT APPLICABLE FOR DIALYSIS PATIENTS. POCT-GLUCOSE [id number] 17:02:00 Test Item Value Reference Range Comments POC-GLUCOSE METER (BEAKER) 235 mg/dL 70-110 TESTED AT [address] (test wggv=1665) [place] [address] POCT-GLUCOSE [id number] 12:06:00 Test Item Value Reference Range Comments POC-GLUCOSE METER (BEAKER) 249 mg/dL 70-110 TESTED AT [address] (test epfl=8445) [place] [address] POCT-GLUCOSE [id number] 09:40:00 Test Item Value Reference Range Comments POC-GLUCOSE METER (BEAKER) 278 mg/dL 70-110 TESTED AT [address] (test wstk=2597) [place] [address] BASIC METABOLIC [id number] 06:14:00 Test Item Value Reference Range Comments SODIUM (BEAKER) (test 141 meq/L 136-145 lrnz=451) POTASSIUM (BEAKER) (test 4.1 meq/L 3.5-5.1 pgoj=014) CHLORIDE (BEAKER) (test 104 meq/L 98-107 ctjf=538) CO2 (BEAKER) (test 30 meq/L 22-29 igvg=375) BLOOD UREA NITROGEN 14 mg/dL 7-21 (BEAKER) (test hqjg=327) CREATININE (BEAKER) (test 0.70 mg/dL 0.57-1.25 edky=266) GLUCOSE RANDOM (BEAKER) 146 mg/dL 70-105 (test qgzj=456) CALCIUM (BEAKER) (test 9.4 mg/dL 8.4-10.2 hmem=617) EGFR (BEAKER) (test 89 mL/min/1.73 sq m ESTIMATED GFR IS NOT tlds=0280) ACCURATE CREATININE CLEARANCE IN PREDICTING GLOMERULAR FILTRATION RATE. ESTIMATED GFR IS NOT APPLICABLE FOR DIALYSIS PATIENTS. [id number] 06:03:00 Test Item Value Reference Range Comments PROTIME (BEAKER) (test npuf=325) 13.8 seconds 11.7-14.7 INR (BEAKER) (test dztv=813) 1.1 <=5.9 PARTIAL THROMBOPLASTIN TIME (BEAKER) (test 32.0 seconds 22.5-36.0 kxnz=484) RECOMMENDED COUMADIN/WARFARIN INR THERAPY RANGESSTANDARD DOSE: 2.0 - 3.0 Includes: PROPHYLAXIS forvenous thrombosis, systemic embolization; TREATMENT for venous thrombosis and/or pulmonary embolus.HIGH RISK: Target INR is 2.5-3.5 for patients with mechanical heart valves. SCREEN, [id number] 05: 59:00 Test Item Value Reference Range Comments TEST URINE (BEAKER) (test bsbx=746) Negative POCT-GLUCOSE [id number] 05:46:00 Test Item Value Reference Range Comments POC-GLUCOSE METER (BEAKER) 140 mg/dL 70-110 TESTED AT [facility] [address] [facility] (test hxsu=7030) [facility] [address] CBC W/PLT COUNT & AUTO [id number] 05:46:00 Test Item Value Reference Range Comments WHITE BLOOD CELL COUNT (BEAKER) (test trqn=189) 9.6 K/ L 3.5-10.5 RED BLOOD CELL COUNT (BEAKER) (test wuom=979) 5.00 M/ L 3.93-5.22 HEMOGLOBIN (BEAKER) (test ppav=682) 14.0 GM/DL 11.2-15.7 HEMATOCRIT (BEAKER) (test hujy=078) 42.1 % 34.1-44.9 MEAN CORPUSCULAR VOLUME (BEAKER) (test wuco=128) 84.2 fL 79.4-94.8 MEAN CORPUSCULAR HEMOGLOBIN (BEAKER) (test 28.0 pg 25.6-32.2 hnsb=408) MEAN CORPUSCULAR HEMOGLOBIN CONC (BEAKER) (test 33.3 GM/DL 32.2-35.5 pigc=939) RED CELL DISTRIBUTION WIDTH (BEAKER) (test 13.0 % 11.7-14.4 kwtt=115) PLATELET COUNT (BEAKER) (test wkak=693) 227 K/CU MM 150-450 MEAN PLATELET VOLUME (BEAKER) (test junf=970) 11.8 fL 9.4-12.3 NUCLEATED RED BLOOD CELLS (BEAKER) (test 0 /100 WBC 0-0 jagm=650) NEUTROPHILS RELATIVE PERCENT (BEAKER) (test 52 % wcin=527) LYMPHOCYTES RELATIVE PERCENT (BEAKER) (test 38 % hxot=203) MONOCYTES RELATIVE PERCENT (BEAKER) (test 6 % hwrj=518) EOSINOPHILS RELATIVE PERCENT (BEAKER) (test 3 % dqts=076) BASOPHILS RELATIVE PERCENT (BEAKER) (test 1 % zmga=727) NEUTROPHILS ABSOLUTE COUNT (BEAKER) (test 5.03 K/ L 1.56-6.13 czgh=857) LYMPHOCYTES ABSOLUTE COUNT (BEAKER) (test 3.62 K/ L 1.18-3.74 datc=961) MONOCYTES ABSOLUTE COUNT (BEAKER) (test 0.62 K/ L 0.24-0.36 cjvp=055) EOSINOPHILS ABSOLUTE COUNT (BEAKER) (test 0.27 K/ L 0.04-0.36 zcft=840) BASOPHILS ABSOLUTE COUNT (BEAKER) (test 0.05 K/ L 0.01-0.08 rnus=365) IMMATURE GRANULOCYTES-RELATIVE PERCENT (BEAKER) 1 % 0-1 (test sdih=1239) POCT-GLUCOSE [id number] 21:27:00 Test Item Value Reference Range Comments POC-GLUCOSE METER (BEAKER) 223 mg/dL 70-110 TESTED AT [address] (test ixwi=3701) [place] [address] POCT-GLUCOSE [id number] 17:26:00 Test Item Value Reference Range Comments POC-GLUCOSE METER (BEAKER) 223 mg/dL 70-110 TESTED AT [address] (test hgut=8716) [place] [address] BASIC METABOLIC [id number] 16:43:00 Test Item Value Reference Range Comments SODIUM (BEAKER) (test 139 meq/L 136-145 rjnv=464) POTASSIUM (BEAKER) (test 4.5 meq/L 3.5-5.1 Specimen slightly qprc=806) hemolyzed CHLORIDE (BEAKER) (test 102 meq/L 98-107 zvjy=228) CO2 (BEAKER) (test 29 meq/L 22-29 zzhg=392) BLOOD UREA NITROGEN 16 mg/dL 7-21 (BEAKER) (test krsc=535) CREATININE (BEAKER) (test 0.76 mg/dL 0.57-1.25 Specimen slightly vfhn=979) hemolyzed GLUCOSE RANDOM (BEAKER) 217 mg/dL 70-105 (test llbo=165) CALCIUM (BEAKER) (test 9.6 mg/dL 8.4-10.2 auyp=065) EGFR (BEAKER) (test 81 mL/min/1.73 sq m ESTIMATED GFR IS NOT hgwq=8563) ACCURATE CREATININE CLEARANCE IN PREDICTING GLOMERULAR FILTRATION RATE. ESTIMATED GFR IS NOT APPLICABLE FOR DIALYSIS PATIENTS. POCT-GLUCOSE [id number] 09:06:00 Test Item Value Reference Range Comments POC-GLUCOSE METER (BEAKER) 265 mg/dL 70-110 TESTED AT [address] (test leww=6474) [place] [address] POCT-GLUCOSE [id number] 00:22:00 Test Item Value Reference Range Comments POC-GLUCOSE METER (BEAKER) 210 mg/dL 70-110 TESTED AT [address] (test bclw=0756) [place] [address] POCT-GLUCOSE [id number] 20:27:00 Test Item Value Reference Range Comments POC-GLUCOSE METER (BEAKER) 235 mg/dL 70-110 TESTED AT [address] (test mevj=8516) [place] [address] POCT-GLUCOSE [id number] 17:10:00 Test Item Value Reference Range Comments POC-GLUCOSE METER (BEAKER) 264 mg/dL 70-110 TESTED AT [address] (test tdgr=2420) [place] [address] POCT-GLUCOSE [id number] 16:00:00 Test Item Value Reference Range Comments POC-GLUCOSE METER (BEAKER) 242 mg/dL 70-110 TESTED AT [address] (test vwgi=9241) [place] [address] POCT-GLUCOSE [id number] 08:54:00 Test Item Value Reference Range Comments POC-GLUCOSE METER (BEAKER) 224 mg/dL 70-110 TESTED AT [address] (test xvsy=1932) [place] [address] POCT-GLUCOSE [id number] 21:30:00 Test Item Value Reference Range Comments POC-GLUCOSE METER (BEAKER) 254 mg/dL 70-110 TESTED AT [address] (test howg=0618) [place] [id number] POCT-GLUCOSE [id number] 17:23:00 Test Item Value Reference Range Comments POC-GLUCOSE METER (BEAKER) 193 mg/dL 70-110 TESTED AT [address] (test xymb=1738) [place] [address] POCT-GLUCOSE [id number] 11:53:00 Test Item Value Reference Range Comments POC-GLUCOSE METER (BEAKER) 179 mg/dL 70-110 TESTED AT [address] (test vela=4449) [place] [address] [id number] 10:15:00 Test Item Value Reference Range Comments CORTISOL, TOTAL (BEAKER) (test dvcu=6618) 4.7 ug/dL 3.7-19.4 POCT-GLUCOSE [id number] 08:07:00 Test Item Value Reference Range Comments POC-GLUCOSE METER (BEAKER) 184 mg/dL 70-110 TESTED AT [address] (test koil=3234) [place] [address] [place], BRAIN, WITHOUT [id number] 22:07:00FINAL REPORT CT Head without contrast CLINICAL [...] Gamboa Verified Date/Time: 06/20/2018 22:07:25 Reading Location: [address] Transitional Reading Room POCT-GLUCOSE [id number] 21:00:00 Test Item Value Reference Range Comments POC-GLUCOSE METER (BEAKER) 227 mg/dL 70-110 TESTED AT [address] (test wgqm=8436) [place] [address] POCT-GLUCOSE [id number] 16:57:00 Test Item Value Reference Range Comments POC-GLUCOSE METER (BEAKER) 216 mg/dL 70-110 TESTED AT [address] (test tukc=8263) [place] [id number] POCT-GLUCOSE [id number] 13:11:00 Test Item Value Reference Range Comments POC-GLUCOSE METER (BEAKER) 198 mg/dL 70-110 TESTED AT [address] (test mocq=0755) [place] [id number] POCT-GLUCOSE [id number] 07:47:00 Test Item Value Reference Range Comments POC-GLUCOSE METER (BEAKER) 213 mg/dL 70-110 TESTED AT [address] (test mkup=9538) [place] [address] BASIC METABOLIC [id number] 06:57:00 Test Item Value Reference Range Comments SODIUM (BEAKER) (test 138 meq/L 136-145 empa=175) POTASSIUM (BEAKER) (test 3.9 meq/L 3.5-5.1 vvis=062) CHLORIDE (BEAKER) (test 105 meq/L 98-107 zhel=570) CO2 (BEAKER) (test 24 meq/L 22-29 opgo=128) BLOOD UREA NITROGEN 12 mg/dL 7-21 (BEAKER) (test csnn=733) CREATININE (BEAKER) (test 0.73 mg/dL 0.57-1.25 hdss=222) GLUCOSE RANDOM (BEAKER) 192 mg/dL 70-105 (test vvmm=678) CALCIUM (BEAKER) (test 8.8 mg/dL 8.4-10.2 tafm=446) EGFR (BEAKER) (test 85 mL/min/1.73 sq m ESTIMATED GFR IS NOT mpgx=7462) ACCURATE CREATININE CLEARANCE IN PREDICTING GLOMERULAR FILTRATION RATE. ESTIMATED GFR IS NOT APPLICABLE FOR DIALYSIS PATIENTS. POCT-GLUCOSE [id number] 05:24:00 Test Item Value Reference Range Comments POC-GLUCOSE METER (BEAKER) 192 mg/dL 70-110 TESTED AT [facility] [address] [facility] (test ysot=2371) [facility] [address] [address], [place] [id number] 01:03:00FINAL REPORT CLINICAL HISTORY: Stroke TECHNIQUE: Initially, [...] arteries by NASCET criteria. Signed: Brian Gamboa MDReperan Verified Date/ Time: 06/20/2018 01:03:44 Reading Location: [address] Transitional Reading Room [facility], [place], [id number] 01:03:00FINAL REPORT CLINICAL HISTORY: Stroke TECHNIQUE: Initially, [...] Verified Date/ Time: 06/20/2018 01:03:44 Reading Location: [address] Reading Room POCT-GLUCOSE [id number] 00:40:00 Test Item Value Reference Range Comments POC-GLUCOSE METER (BEAKER) 283 mg/dL 70-110 TESTED AT [address] (test bgec=2352) [facility] [address] POCT-GLUCOSE [id number] 21:21:00 Test Item Value Reference Range Comments POC-GLUCOSE METER (BEAKER) 343 mg/dL 70-110 TESTED AT [address] (test vsfa=1573) [facility] [address] SCREEN, [id number] 18:52:00 Test Item Value Reference Range Comments TEST URINE (BEAKER) (test jxmi=433) Negative POCT-GLUCOSE [id number] 17:17:00 Test Item Value Reference Range Comments POC-GLUCOSE METER (BEAKER) 287 mg/dL 70-110 TESTED AT [facility] [address] [facility] (test syvv=1415) [facility] [address] [id number] 15:59:00 Test Item Value Reference Range Comments RPR SCREEN (BEAKER) (test asyo=037) Nonreactive Nonreactive POCT-GLUCOSE [id number] 15:07:00 Test Item Value Reference Range Comments POC-GLUCOSE METER (BEAKER) 323 mg/dL 70-110 TESTED AT [address] (test isjy=6636) [place] [id number] T4, [id number] 13:11:00 Test Item Value Reference Range Comments FREE T4 (BEAKER) (test yjfm=376) 0.89 ng/dL 0.70-1.48 HIV-1 ANTIGEN WITH HIV-1/2 [id number] 13:11:00 Test Item Value Reference Range Comments HIV-1 ANTIGEN WITH HIV 1\\T\\2 ANTIBODY (2) Nonreactive Nonreactive (BEAKER) (test frjz=4356) RAPID DRUG SCREEN, [id number] 12:47:00 Test Item Value Reference Range Comments BARBITURATE URINE (BEAKER) (test yixz=529) Negative Negative BENZODIAZEPINE SCREEN URINE (BEAKER) (test Negative Negative rppw=391) COCAINE (METAB.) SCREEN (BEAKER) (test iadv=3635) Negative Negative METHADONE SCREEN (BEAKER) (test msoc=2431) Negative Negative OPIATE SCREEN URINE (BEAKER) (test okip=927) Negative Negative CANNABINOID SCREEN URINE (BEAKER) (test vlre=370) Negative Negative AMPH/METHAMPH SCREEN (BEAKER) (test imdu=8800) Negative Negative PHENCYCLIDINE SCREEN URINE (BEAKER) (test axfx=810) Negative Negative OXYCODONE SCREEN URINE (BEAKER) (test tnds=4255) Negative Negative DRUG CUTOFF CONC.Cocaine 300 ng/mL Cannabinoid 50 ng/mL Benzodiazepine 200 ng/mLBarbiturate 200 ng/ mLPhencyclidine 25 ng/mLOpiate 300 ng/mLMethadone 300 ng/mLAmphetamine/ 1000 ng/mL MethamphetamineOxycodone 300 ng/mLThis assay provides an unconfirmed qualitative test result for the clinical management of patients in emergency situations. Chain of custody not maintained. Some erql-ovk-rmokumg medications, as well as adulterants, may cause inaccurate results. Clinical correlation should be applied. A more comprehensive drug screen or confirmation of a detected drug may be performed upon request.POCT-GLUCOSE [id number] 12:37:00 Test Item Value Reference Range Comments POC-GLUCOSE METER (BEAKER) 292 mg/dL 70-110 TESTED AT [facility] [address] [facility] (test wned=0098) [facility] [address] HEMOGLOBIN [id number] 12:35:00 Test Item Value Reference Range Comments HEMOGLOBIN A1C (BEAKER) (test vcvm=098) 7.9 % 4.3-6.1 OSMOLALITY, [id number] 12:34:00 Test Item Value Reference Range Comments OSMOLALITY, SERUM (BEAKER) (test hbjc=725) 310 mOsm/kg 275-295 C-REACTIVE [id number] 12:28:00 Test Item Value Reference Range Comments C-REACTIVE PROTEIN (BEAKER) (test riqk=461) 0.81 mg/dL 0.00-0.50 OSMOLALITY, [id number] 12:22:00 Test Item Value Reference Range Comments OSMOLALITY URINE (BEAKER) (test dasy=152) 247 mOsm/kg 40-1,400 CBC W/PLT COUNT & AUTO [id number] 12:14:00 Test Item Value Reference Range Comments WHITE BLOOD CELL COUNT (BEAKER) (test fpoq=952) 15.1 K/ L 3.5-10.5 RED BLOOD CELL COUNT (BEAKER) (test dprm=001) 5.15 M/ L 3.93-5.22 HEMOGLOBIN (BEAKER) (test gspl=332) 14.1 GM/DL 11.2-15.7 HEMATOCRIT (BEAKER) (test ffhf=953) 42.3 % 34.1-44.9 MEAN CORPUSCULAR VOLUME (BEAKER) (test deox=078) 82.1 fL 79.4-94.8 MEAN CORPUSCULAR HEMOGLOBIN (BEAKER) (test 27.4 pg 25.6-32.2 kbbu=821) MEAN CORPUSCULAR HEMOGLOBIN CONC (BEAKER) (test 33.3 GM/DL 32.2-35.5 hkoq=403) RED CELL DISTRIBUTION WIDTH (BEAKER) (test 12.9 % 11.7-14.4 phcj=445) PLATELET COUNT (BEAKER) (test lwgi=249) 278 K/CU MM 150-450 MEAN PLATELET VOLUME (BEAKER) (test wqdj=334) 11.5 fL 9.4-12.3 NUCLEATED RED BLOOD CELLS (BEAKER) (test 0 /100 WBC 0-0 auhs=002) NEUTROPHILS RELATIVE PERCENT (BEAKER) (test 87 % tmmz=816) LYMPHOCYTES RELATIVE PERCENT (BEAKER) (test 10 % gzix=266) MONOCYTES RELATIVE PERCENT (BEAKER) (test 3 % uwjm=307) EOSINOPHILS RELATIVE PERCENT (BEAKER) (test 0 % aziy=421) BASOPHILS RELATIVE PERCENT (BEAKER) (test 0 % svgw=479) NEUTROPHILS ABSOLUTE COUNT (BEAKER) (test 13.06 K/ L 1.56-6.13 disp=730) LYMPHOCYTES ABSOLUTE COUNT (BEAKER) (test 1.51 K/ L 1.18-3.74 fuwo=048) MONOCYTES ABSOLUTE COUNT (BEAKER) (test 0.38 K/ L 0.24-0.36 axtj=239) EOSINOPHILS ABSOLUTE COUNT (BEAKER) (test 0.00 K/ L 0.04-0.36 eqya=271) BASOPHILS ABSOLUTE COUNT (BEAKER) (test 0.02 K/ L 0.01-0.08 gpgo=531) IMMATURE GRANULOCYTES-RELATIVE PERCENT (BEAKER) 1 % 0-1 (test gowz=9061) POCT-GLUCOSE [id number] 10:30:00 Test Item Value Reference Range Comments POC-GLUCOSE METER (BEAKER) 341 mg/dL 70-110 TESTED AT [address] (test gcpm=9675) [facility] [address] [id number] 06:17:00 Test Item Value Reference Range Comments PROLACTIN (BEAKER) (test tuam=009) 23.34 ng/mL 5.18-26.53 POCT-GLUCOSE [id number] 05:55:00 Test Item Value Reference Range Comments POC-GLUCOSE METER (BEAKER) 285 mg/dL 70-110 TESTED AT [address] (test zyxd=7291) [facility] [address] MR, BRAIN, [id number] 02:25:00Pituitary protocolCr 0.6FINAL REPORT MRI brain with and without contrast Comparison: None. 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 Discussion: Multiplanar MR imaging of the brain and sella was provided gnu-keb-orcf IV gadolinium administration using T1, T2, FLAIR, [...] MDReport Verified Date/Time: 06/19/2018 02:25:15 Reading Location: [address] Body Reading Room TSH/FREE T4 IF [id number] 00:26:00 Test Item Value Reference Range Comments THYROID STIMULATING HORMONE (BEAKER) (test 0.41 uIU/mL 0.35-4.94 ylnc=200) BASIC METABOLIC [id number] 00:07:00 Test Item Value Reference Range Comments SODIUM (BEAKER) (test 136 meq/L 136-145 nnkr=446) POTASSIUM (BEAKER) (test 4.0 meq/L 3.5-5.1 bpoy=390) CHLORIDE (BEAKER) (test 103 meq/L 98-107 hcia=013) CO2 (BEAKER) (test 20 meq/L 22-29 fick=645) BLOOD UREA NITROGEN 11 mg/dL 7-21 (BEAKER) (test extu=704) CREATININE (BEAKER) (test 0.84 mg/dL 0.57-1.25 atyt=305) GLUCOSE RANDOM (BEAKER) 357 mg/dL 70-105 (test tuvc=439) CALCIUM (BEAKER) (test 9.0 mg/dL 8.4-10.2 yprs=764) EGFR (BEAKER) (test 72 mL/min/1.73 sq m ESTIMATED GFR IS NOT zkwe=5997) ACCURATE CREATININE CLEARANCE IN PREDICTING GLOMERULAR FILTRATION RATE. ESTIMATED GFR IS NOT APPLICABLE FOR DIALYSIS PATIENTS. URINALYSIS W/ REFLEX URINE [id number] 23:13:00 Test Item Value Reference Range Comments COLOR (BEAKER) (test qqsd=319) Yellow CLARITY (BEAKER) (test adzb=990) Clear SPECIFIC GRAVITY UA (BEAKER) (test hqid=059) 1.011 1.001-1.035 PH UA (BEAKER) (test yjrh=424) 5.0 5.0-8.0 PROTEIN UA (BEAKER) (test clny=631) Negative Negative GLUCOSE UA (BEAKER) (test oqua=128) >1000 mg/dL Negative KETONES UA (BEAKER) (test oysr=873) 20 mg/dL Negative BILIRUBIN UA (BEAKER) (test ukxe=992) Negative Negative BLOOD UA (BEAKER) (test ayvt=169) Negative Negative NITRITE UA (BEAKER) (test wemv=782) Negative Negative LEUKOCYTE ESTERASE UA (BEAKER) (test gchu=982) Negative Negative UROBILINOGEN UA (BEAKER) (test sger=738) 0.2 mg/dL 0.2-1.0 RBC UA (BEAKER) (test ituy=724) < /HPF WBC UA (BEAKER) (test gtmt=013) < /HPF SQUAMOUS EPITHELIAL (BEAKER) (test sccy=149) < /HPF SOURCE(BEAKER) (test vmfi=6928)
--- OUTSIDE RECORDS SUMMARY | 2018-06-28 13:35 | XMS REPORT ---
[...] Status Dosage System Date Date Atorvastatin Calcium [facility] 11454745570 10 MG Oral Active TAKE 1 TABLET BY MOUTH AT BEDTIME. ProAir HFA [facility] 81389811856 108 (90 Base) Active USE 1-2 MCG/ACT PUFFS BY Inhalation MOUTH EVERY 4-6 HOURS Levothyroxine Sodium ND 26393073068 88 MCG Oral Active TAKE 1 TABLET BY MOUTH EVERY MORNING Valsartan-Hydrochlor ND 21511442572 80-12.5 MG Active TAKE 1 othiazide Oral TABLET BY MOUTH EVERY DAY Benzonatate ND 00888774084 200 MG Oral Active TAKE ONE CAPSULE BY MOUTH 3 TIMES A DAY NEEDED FOR COUGH MethylPREDNISolone ND 10912795556 4 MG Oral Active TAKE 6 TABLETS ON DAY 1 DIRECTED ON PACKAGE AND DECREASE BY 1 TAB EACH DAY FOR A TOTAL OF 6 DAYS GlyBURIDE ND 95516844659 5 MG Orally Iraida Active 1 tablet Once a day 2017 breakfast or the first main meal of the day MetFORMIN HCl ER ND 63475798821 750 MG Oral Active TAKE 1 TABLET BY MOUTH 2 TIMES DAILY BEFORE BREAKFAST AND DINNER. Results No Known Results Summary Purpose eClinicalWorks Submission
--- NOTE | 2018-06-28 14:43 | ER ---
Nurse's Notes [facility] Name: Chantal Stout Age: 48 yrs Sex: Female : 1970 Arrival Date: 06/28/2018 Time: 13:35 Bed 6 Private MD: Diagnosis: Facial pain s/p pituitary surgery Presentation: 06/28 13:45 Presenting complaint: Patient states: She had surgery to remove a pituitary tumor on sunday at [facility], she was discharged yesterday, but now she is feeling pressure behind her eyes, headache, and numbness to her face that comes and goes. Patient states"I feel like my brain is shrinking and swelling" Patient has packing in her nose that was placed after surgery. Edema noted to jodi WALSH. Patient reports that she is currently on a water restriction of 4.5 cups per day. Face is flushed, skin is warm. Transition of care: patient was not received from another setting of care. Onset of symptoms was June 28, 2018. Risk Assessment: Do you want to hurt yourself or someone else? Patient reports no desire to harm self or others. Initial Sepsis Screen: Does the patient meet any 2 criteria? No. Patient's initial sepsis screen is negative. Does the patient have a suspected source of infection? No. Patient's initial sepsis screen is negative. Care prior to arrival: None. 13:45 Method Of Arrival: EMS: [facility] aj1 13:45 Acuity: NOÉ 2 aj1 Triage Assessment: 13:51 General: Appears in no apparent distress. uncomfortable, Behavior is calm, cooperative, aj1 appropriate for age. Pain: Complains of pain in right eye and left eye. Historical: - Allergies: 13:51 Bactrim; aj1 13:51 Cephalexin; aj1 13:51 Codeine; aj1 13:51 Iodine; aj1 13:51 Levaquin; aj1 13:51 Sulfa (Sulfonamide Antibiotics); aj1 - Home Meds: 13:51 acetaminophen-codeine Oral 1 tab every 4 hrs PRN [Active]; amlodipine 10 mg tab 1 tab aj1 once daily [Active]; glyburide 5 mg Oral tab 1 tab once daily [Active]; hydrocortisone 10 mg Oral tab 1 tab 2 times per day [Active]; levothyroxine 75 mcg tab 1 tab once daily [Active]; losartan 50 mg Oral tab 1 tab once daily [Active]; metformin 750 mg Oral Tb24 1 tab twice a day [Active]; omeprazole 20 mg Oral cpDR 1 cap once daily [Active]; - PMHx: 13:51 Anemia; Asthma; Diabetes - NIDDM; Hypertension; Hypothyroidism; pituitary tumor- aj1 surgically removed Jun 24; - Immunization history:: Flu vaccine is up to date. - Social history:: Smoking status: Patient/guardian denies using tobacco. - Ebola Screening: : Patient denies travel to an Ebola-affected area in the 21 days before illness onset. Screenin:54 Abuse screen: Denies threats or abuse. Denies injuries from another. Nutritional aj1 screening: No deficits noted. Tuberculosis screening: No symptoms or risk factors identified. Assessment: 13:54 General: Appears in no apparent distress. uncomfortable, Behavior is calm, cooperative, aj1 appropriate for age. Pain: Complains of pain in left eye and right eye Pain does not radiate. Pain currently is 8 out of 10 on a pain scale. Quality of pain is described as pressure. Neuro: Level of Consciousness is awake, alert, obeys commands, Oriented to person, place, time, situation, Moves all extremities. Full function Speech is normal, Facial symmetry appears normal, Reports headache intermittent numbness to her face. Cardiovascular: Patient's skin is warm and dry. Respiratory: Airway is patent Respiratory effort is even, unlabored, Respiratory pattern is regular, agonal. GI: No signs and/or symptoms were reported involving the gastrointestinal system. : No signs and/or symptoms were reported regarding the genitourinary system. EENT: Nares Patient has nasal packing placed after pituitary tumor removal. Derm: No signs and/or symptoms reported regarding the dermatologic system. Skin is pink, warm \\T\\ dry. normal. Musculoskeletal: No signs and/or symptoms reported regarding the musculoskeletal system. Circulation, motion, and sensation intact. 14:50 Reassessment: spoke with CONTRACT COORDINATOR taking care of pt, was told that the symptoms pt was c/o iw are all normal side effects of her recent surgery and part of the healing process, advised to perhaps treat pt's anxiety and have her f/u in clinic on Sunday. 15:36 Reassessment: Patient appears in no apparent distress at this time. Patient and/or iw family updated on plan of care and expected duration. Pain level reassessed. Patient is alert, oriented x 3, equal unlabored respirations, skin warm/dry/pink. pt instructed to keep her follow up appt in clinic on Sunday. Vital Signs: 13:51 BP 151 / 106; Pulse 67; Resp 18; Temp 99.1(O); Pulse Ox 97% on R/A; Weight 122.47 kg aj1 (R); Height 5 ft. 4 in. (162.56 cm) (R); Pain 8/10; 13:51 Body Mass Index 46.34 (122.47 kg, 162.56 cm) [facility] ED Course: 13:35 Patient arrived in ED. jl7 13:44 Donya Haji RN is Primary Nurse. aj1 13:47 Triage completed. aj1 13:48 Kirk Escudero MD is Attending Physician. kdr 13:51 Arm band placed on Patient placed in an exam room, Patient triaged in ER bed 6. aj1 13:54 Patient has correct armband on for positive identification. Bed in low position. Call [facility] light in reach. Side rails up X 1. Pulse ox on. NIBP on. 13:54 No provider procedures requiring assistance completed. aj1 15:36 Patient did not have IV access during this emergency room visit. iw Administered Medications: No medications were administered Outcome: 14:42 Discharge ordered by . kdr 15:36 Patient left the ED. 5 15:36 Discharged to home via wheelchair, with family. iw 15:36 Condition: good 15:36 Discharge instructions given to patient, family, Instructed on discharge instructions, follow up and referral plans. medication usage, Demonstrated understanding of instructions, follow-up care, medications, Prescriptions given X 2. Signatures: Donya Haji, ALCIDES RN aj1 Kirk Escudero MD MD kdr Ingrid Bernabe RN RN Devika Moore [facility] Norman Franklin RN RN 7
--- NOTE | 2018-06-28 14:43 | EDPHYS ---
Physician Documentation [facility] Name: Chantal Stout Age: 48 yrs Sex: Female : 1970 Arrival Date: 06/28/2018 Time: 13:35 Bed 6 Private MD: ED Physician Kirk Escudero HPI: 06/28 14:48 This 48 yrs old Female presents to ER via EMS with complaints of facial pain kdr s/p pitutiary surgery. 14:48 The patient had pituitary surgery on Sunday. Since, she has had persistent mid facial kdr pain. It is aching and pressure like. It is not significantly changing but is persistent. She is getting adequate management with her current pain Rx. She has no other focal c/o or concerns. Onset: The symptoms/episode began/occurred suddenly, 5 day(s) ago. Severity of symptoms: At their worst the symptoms were mild just prior to arrival, in the emergency department the symptoms are unchanged. The patient has not experienced similar symptoms in the past. The patient has been recently seen by a physician:. The PA for the surgeon called and spoke directly to the patient about her current s/s. The PA then called and talked with the nursing staff and assured them that the current s/s were not unusual and consistent with post surgical condition at this stage. The [facility] surgical team had no concerns after speaking directly to the patient. This information was relayed to the patient and the nursing staff in the ED. Historical: - Allergies: 13:51 Bactrim; aj1 13:51 Cephalexin; aj1 13:51 Codeine; aj1 13:51 Iodine; aj1 13:51 Levaquin; aj1 13:51 Sulfa (Sulfonamide Antibiotics); aj1 - Home Meds: 13:51 acetaminophen-codeine Oral 1 tab every 4 hrs PRN [Active]; amlodipine 10 mg tab 1 tab aj1 once daily [Active]; glyburide 5 mg Oral tab 1 tab once daily [Active]; hydrocortisone 10 mg Oral tab 1 tab 2 times per day [Active]; levothyroxine 75 mcg tab 1 tab once daily [Active]; losartan 50 mg Oral tab 1 tab once daily [Active]; metformin 750 mg Oral Tb24 1 tab twice a day [Active]; omeprazole 20 mg Oral cpDR 1 cap once daily [Active]; - PMHx: 13:51 Anemia; Asthma; Diabetes - NIDDM; Hypertension; Hypothyroidism; pituitary tumor- aj1 surgically removed Jun 24; - Immunization history:: Flu vaccine is up to date. - Social history:: Smoking status: Patient/guardian denies using tobacco. - Ebola Screening: : Patient denies travel to an Ebola-affected area in the 21 days before illness onset. ROS: 14:48 Constitutional: Negative for fever, chills, and weight loss, Neck: Negative for injury, kdr pain, and swelling, Cardiovascular: Negative for chest pain, palpitations, and edema, Respiratory: Negative for shortness of breath, cough, wheezing, and pleuritic chest pain, Abdomen/GI: Negative for abdominal pain, nausea, vomiting, diarrhea, and constipation, Back: Negative for injury and pain. 14:48 Eyes: Positive for pain, full feeling behind both eyes with R > L. This is unchanged and not worsening. 14:48 ENT: Positive for Persistent nasal bleeding with occasional clots. Exam: 15:03 Constitutional: This is a well developed, well nourished patient who is awake, alert, kdr and in no acute distress. Head/Face: Normocephalic, atraumatic. Neck: Trachea midline, no thyromegaly or masses palpated, and no cervical lymphadenopathy. Supple, full range of motion without nuchal rigidity, or vertebral point tenderness. No Meningismus. Chest/axilla: Normal chest wall appearance and motion. Nontender with no deformity. No lesions are appreciated. 15:03 Eyes: Periorbital structures: appear normal, Pupils: equal, round, and reactive to light and accomodation, Extraocular movements: intact throughout. Vital Signs: 13:51 BP 151 / 106; Pulse 67; Resp 18; Temp 99.1(O); Pulse Ox 97% on R/A; Weight 122.47 kg aj1 (R); Height 5 ft. 4 in. (162.56 cm) (R); Pain 8/10; 13:51 Body Mass Index 46.34 (122.47 kg, 162.56 cm) aj1 MDM: 14:42 Patient medically screened. kdr 15:03 Data reviewed: vital signs, nurses notes. Counseling: I had a detailed discussion with kdr the patient and/or guardian regarding: the historical points, exam findings, and any diagnostic results supporting the discharge/admit diagnosis, the need for outpatient follow up. Administered Medications: No medications were administered Disposition: 06/28/18 14:42 Discharged to Home. Impression: Facial pain s/p pituitary surgery. - Condition is Stable. - Prescriptions for Xanax 0.5 mg Oral Tablet - take 1 tablet by ORAL route every 8 hours As needed; 10 tablet. Tramadol 50 mg Oral Tablet - take 1 tablet by ORAL route every 8 hours as needed; 12 tablet. - Blank Diagnosis Outline, Medication Reconciliation Form, Thank You Letter, Prescription Opioid Use form. - Follow up: Private Physician; When: 2 - 3 days; Reason: If symptoms return, Further diagnostic work-up, Recheck today's complaints, Continuance of care, Re-evaluation by your physician. - Problem is an ongoing problem. - Symptoms are unchanged. Signatures: Donya Haji RN RN aj1 Kirk Escudero MD MD [facility] Devika Moore [facility] Corrections: (The following items were deleted from the chart) 15:36 14:42 06/28/2018 14:42 Discharged to Home. Impression: Facial pain s/p pituitary mh5 surgery. Condition is Stable. Forms are Medication Reconciliation Form, Thank You Letter, Antibiotic Education, Prescription Opioid Use. Follow up: Private Physician; When: 2 - 3 days; Reason: If symptoms return, Further diagnostic work-up, Recheck today's complaints, Continuance of care, Re-evaluation by your physician. Problem is an ongoing problem. Symptoms are unchanged. kdr
[2018-06-28 16:05] VITALS: BP 151/106; TEMP 99.1; O2SAT 97
== END 2018-06-28 15:36 | disposition home or self-care (01) ==
LOC: ER 13:31
DX: R51 Headache (principal); Z98.890 Other specified postprocedural states
CPT/HCPCS: 99283

== ENCOUNTER 2018-06-30 18:38 | Emergency (ER) | payer BC ==
--- OUTSIDE RECORDS SUMMARY | 2018-06-30 18:41 | XMS REPORT | Clinical Summary ---
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; Allen Pituitary macroadenoma (HCC); Kim Pitt Acquired hypothyroidism MD Aline Seay Sahar, MD Mezrahi, Maria, MD 06/18/2018 Travel after 06/29/2017 Family History Medical History Relation Name Comments [...] Taken Blood Pressure 125/71 06/27/2018 12:09 PM SUMMER INTERN Pulse 63 06/27/2018 12:09 PM SUMMER INTERN Temperature 36.2 C (97.1 F) 06/27/2018 12:09 PM SUMMER INTERN Respiratory Rate 18 06/27/2018 12:09 PM SUMMER INTERN Oxygen Saturation 97% 06/27/2018 12:09 PM SUMMER INTERN Inhaled Oxygen Concentration - - Weight 122.5 kg (270 lb) 06/18/2018 9:00 PM SUMMER INTERN Height 162.6 cm (5' 4") 06/18/2018 9:00 PM SUMMER INTERN Body Mass Index 46.35 06/18/2018 9:00 PM SUMMER INTERN Plan of Treatment Not on file Implants Implanted Type Area Pot Fluxer Device Shelf Model / Identifier Expiration Serial / Date Lot Sealant Durasl Spine 5ml - [id number] Cement/Fi N/A: [employer]TE[employer]RA LIFESCI 10/21/[id number] / Implanted: Qty: 1 on 06/24/2018 by Alex Ruano MD ller/Valentine Head / sive [id number] [facility] Full Strlprep 10ml [id number] - [id number] Cement/Fi N/A: FUNES: BIOSCI 11/18/2019 [id number] / Implanted: Qty: 1 on 06/24/2018 by Alex Ruano MD ller/[place] [employer] / sive [id number] Graft Matrix Dura 1x3 [id number] - [id number] Neuro N/A: MEDTRONIC 02/20/2020 [id number] / Implanted: Qty: 1 on 06/24/2018 by Alex Ruano MD Head SURGICAL / NAVIGATION [id number] Procedures Procedure Name Priority Date/Time Associated Comments Diagnosis INTRAOPERATIVE PATH 06/29/2018 1:00 REPORT - SCAN PM [facility]MER [facility]N RHYTHM STRIP - SCAN 06/29/2018 1:00 PM [facility]MER [facility]N POCT-GLUCOSE METER Routine 06/27/2018 12:07 Results for this PM [facility]MER [facility]N procedure are in the results section. POCT-GLUCOSE METER Routine 06/27/2018 7:41 Results for this AM [facility]N procedure are in the results section. CBC W/PLT COUNT & AUTO Routine 06/27/2018 5:56 Results for this DIFFERENTIAL AM [facility]N procedure are in the results section. BASIC METABOLIC PANEL Routine 06/27/2018 5:56 Results for this (7) AM [facility]N procedure are in the results section. CBC W/PLT COUNT & AUTO Routine 06/27/2018 5:56 Results for this DIFFERENTIAL AM [facility]MER [facility]N procedure are in the results section. CBC W/PLT COUNT & AUTO STAT 06/26/2018 11:18 Results for this DIFFERENTIAL PM [facility]MER [facility]N procedure are in the results section. CBC W/PLT COUNT & AUTO STAT 06/26/2018 11:18 Results for this DIFFERENTIAL PM [facility]MER [facility]N procedure are in the results section. BASIC METABOLIC PANEL STAT 06/26/2018 11:18 Results for this (7) PM [facility]N procedure are in the results section. SODIUM, RANDOM URINE STAT 06/26/2018 11:11 Results for this PM [facility]N procedure are in the results section. CT BRAIN WITHOUT IV STAT 06/26/2018 10:25 Results for this CONTRAST PM [facility]N procedure are in the results section. POCT-GLUCOSE METER Routine 06/26/2018 9:01 Results for this PM [facility]N procedure are in the results section. CBC W/PLT COUNT & AUTO Routine 06/26/2018 1:55 Results for this DIFFERENTIAL PM [facility]N procedure are in the results section. BASIC METABOLIC PANEL Routine 06/26/2018 1:55 Results for this (7) PM [facility]MER [facility]N procedure are in the results section. CBC W/PLT COUNT & AUTO Routine 06/26/2018 1:55 Results for this DIFFERENTIAL PM [facility]MER [facility]N procedure are in the results section. POCT-GLUCOSE METER Routine 06/26/2018 1:33 Results for this PM [facility]MER [facility]N procedure are in the results section. POCT-GLUCOSE METER Routine 06/26/2018 12:06 Results for this PM [facility]MER INTERN procedure are in the results section. POCT-GLUCOSE METER Routine 06/25/2018 4:10 Results for this PM [facility]N procedure are in the results section. POCT-GLUCOSE METER Routine 06/25/2018 12:02 Results for this PM [facility]N procedure are in the results section. POCT-GLUCOSE METER Routine 06/25/2018 8:02 Results for this AM [facility]N procedure are in the results section. OSMOLALITY, URINE STAT 06/25/2018 4:23 Results for this AM [facility]N procedure are in the results section. SPECIFIC GRAVITY, STAT 06/25/2018 4:23 Results for this URINE AM [facility]MER [facility]N procedure are in the results section. POCT-GLUCOSE METER Routine 06/24/2018 9:56 Results for this PM [facility]N procedure are in the results section. POCT-GLUCOSE METER Routine 06/24/2018 4:57 Results for this PM [facility]N procedure are in the results section. BASIC METABOLIC PANEL STAT 06/24/2018 4:50 Results for this (7) PM [facility]N procedure are in the results section. POCT-GLUCOSE METER Routine 06/24/2018 11:09 Results for this AM [facility]N procedure are in the results section. POCT-GLUCOSE METER Routine 06/24/2018 9:38 Results for this AM [facility]N procedure are in the results section. TISSUE EXAM AP Routine 06/24/2018 8:02 Results for this AM [facility]N procedure are in the results section. ENDOSCOPIC SINUS 06/24/2018 7:00 Pituitary adenoma SURGERY,REPAIR CSF AM SUMMER INTERN (HCC) [place] Special Needs (STEALTH NAVIGATION, LUMBAR DRAIN SET, LANDMARK CT SCAN ON ) TURBINECTOMY,NASAL 06/24/2018 7:00 AM SUMMER INTERN Pituitary adenoma (HCC) Special Needs (STEALTH NAVIGATION, LUMBAR DRAIN SET, LANDMARK CT SCAN ON ) ENDOSCOPIC SINUS 06/24/2018 7:00 AM SUMMER INTERN Pituitary adenoma SURGERY,ETHMOIDECTOMY W/ (HCC) SPHENOIDOTOMY Special Needs (STEALTH NAVIGATION, LUMBAR DRAIN SET, LANDMARK CT SCAN ON ) PROCEDURE W/ STEALTH 06/24/2018 7:00 AM SUMMER INTERN Pituitary adenoma (HCC) Special Needs (STEALTH NAVIGATION, LUMBAR DRAIN SET, LANDMARK CT SCAN ON ) ENDOSCOPIC CRANIOTOMY,REMOVAL 06/24/2018 7:00 AM SUMMER INTERN Pituitary adenoma ( HCC) TRANSSPHENOIDAL PITUITARY TUMOR Special Needs (STEALTH NAVIGATION, LUMBAR DRAIN SET, LANDMARK CT SCAN ON ) POCT-GLUCOSE METER Routine 06/24/2018 5:42 AM SUMMER INTERN SCREEN, URINE STAT 06/24/2018 5:16 AM SUMMER INTERN BASIC METABOLIC PANEL (7) Routine 06/24/2018 5:16 AM SUMMER INTERN CBC W/PLT COUNT & AUTO Routine 06/24/2018 5:07 AM SUMMER INTERN Results for this DIFFERENTIAL procedure are in the results section. PT/APTT Routine 06/24/2018 5:07 AM SUMMER INTERN CBC W/PLT COUNT & AUTO Routine 06/24/2018 5:07 AM SUMMER INTERN Results for this DIFFERENTIAL procedure are in the results section. POCT-GLUCOSE METER Routine 06/23/2018 9:21 PM SUMMER INTERN POCT-GLUCOSE METER Routine 06/23/2018 4:31 PM SUMMER INTERN BASIC METABOLIC PANEL (7) Routine 06/23/2018 4:13 PM SUMMER INTERN POCT-GLUCOSE METER Routine 06/23/2018 8:30 AM SUMMER INTERN POCT-GLUCOSE METER Routine 06/22/2018 11:34 PM SUMMER INTERN POCT-GLUCOSE METER Routine 06/22/2018 8:21 PM SUMMER INTERN POCT-GLUCOSE METER Routine 06/22/2018 5:07 PM SUMMER INTERN POCT-GLUCOSE METER Routine 06/22/2018 11:49 AM SUMMER INTERN POCT-GLUCOSE METER Routine 06/22/2018 8:30 AM SUMMER INTERN POCT-GLUCOSE METER Routine 06/21/2018 9:09 PM SUMMER INTERN POCT-GLUCOSE METER Routine 06/21/2018 5:20 PM SUMMER INTERN POCT-GLUCOSE METER Routine 06/21/2018 11:06 AM SUMMER INTERN ECHOCARDIOGRAM REPORT - SCAN 06/21/2018 9:21 AM SUMMER INTERN FOLLICLE STIMULATING HORMONE Routine 06/21/2018 9:11 AM SUMMER INTERN Results for this (FSH) procedure are in the results section. INSULIN-LIKE GROWTH FACTOR Routine 06/21/2018 9:11 AM SUMMER INTERN ACTH Routine 06/21/2018 9:11 AM SUMMER INTERN CORTISOL Routine 06/21/2018 9:11 AM SUMMER INTERN POCT-GLUCOSE METER Routine 06/21/2018 7:[address] BRAIN WITHOUT IV CONTRAST TERI 06/20/2018 9:48 PM SUMMER INTERN POCT-GLUCOSE METER Routine 06/20/2018 8:48 PM SUMMER INTERN 2D ECHO W/ DOPPLER Routine 06/20/2018 6:40 PM SUMMER INTERN Results for this (CW/PW/COLOR) procedure are in the results section. POCT-GLUCOSE METER Routine 06/20/2018 4:48 PM SUMMER INTERN POCT-GLUCOSE METER Routine 06/20/2018 1:06 PM SUMMER INTERN POCT-GLUCOSE METER Routine 06/20/2018 7:21 AM SUMMER INTERN POCT-GLUCOSE METER Routine 06/20/2018 5:22 AM SUMMER INTERN BASIC METABOLIC PANEL (7) STAT 06/20/2018 5:08 AM SUMMER INTERN POCT-GLUCOSE METER Routine 06/20/2018 12:[address]/CTA CAROTID TERI 06/19/2018 10:[address]/CTA BRAIN TERI 06/19/2018 10:46 PM SUMMER INTERN POCT-GLUCOSE METER Routine 06/19/2018 9:19 PM SUMMER INTERN POCT-GLUCOSE METER Routine 06/19/2018 5:06 PM SUMMER INTERN POCT-GLUCOSE METER Routine 06/19/2018 3:03 PM SUMMER INTERN POCT-GLUCOSE METER Routine 06/19/2018 12:27 PM SUMMER INTERN SCREEN, URINE Routine 06/19/2018 11:54 AM SUMMER INTERN OSMOLALITY, URINE Routine 06/19/2018 11:54 AM SUMMER INTERN RAPID DRUG SCREEN, URINE Routine 06/19/2018 11:54 AM SUMMER INTERN CBC W/PLT COUNT & AUTO Routine 06/19/2018 11:49 AM SUMMER INTERN Results for this DIFFERENTIAL procedure are in the results section. INSULIN-LIKE GROWTH FACTOR Routine 06/19/2018 11:49 AM SUMMER INTERN OSMOLALITY, SERUM Routine 06/19/2018 11:49 AM SUMMER INTERN T4, FREE Routine 06/19/2018 11:49 AM SUMMER INTERN C-REACTIVE PROTEIN Routine 06/19/2018 11:49 AM SUMMER INTERN HIV-1 ANTIGEN WITH HIV-1/2 Routine 06/19/2018 11:49 AM SUMMER INTERN Results for this ANTIBODY procedure are in the results section. RPR Routine 06/19/2018 11:49 AM SUMMER INTERN CBC W/PLT COUNT & AUTO Routine 06/19/2018 11:49 AM SUMMER INTERN Results for this DIFFERENTIAL procedure are in the results section. POCT-GLUCOSE METER Routine 06/19/2018 9:25 AM SUMMER INTERN POCT-GLUCOSE METER Routine 06/19/2018 5:51 AM SUMMER INTERN GROWTH HORMONE Routine 06/19/2018 3:49 AM SUMMER INTERN LUTEINIZING HORMONE (LH) Routine 06/19/2018 3:49 AM SUMMER INTERN ACTH Routine 06/19/2018 3:49 AM SUMMER INTERN PROLACTIN Routine 06/19/2018 3:49 AM SUMMER INTERN MR BRAIN WITHOUT & WITH IV STAT 06/19/2018 2:25 AM SUMMER INTERN Results for this CONTRAST procedure are in the results section. HEMOGLOBIN A1C Routine 06/19/2018 12:39 AM SUMMER INTERN TSH/FREE T4 IF INDICATED Routine 06/18/2018 11:32 PM SUMMER INTERN BASIC METABOLIC PANEL (7) STAT 06/18/2018 11:32 PM SUMMER INTERN URINALYSIS W/ REFLEX URINE Routine 06/18/2018 10:27 PM SUMMER INTERN Results for this CULTURE procedure are in the results section. after 06/29/2017 Results INTRAOPERATIVE PATH REPORT - SCAN (06/29/2018 1:00 PM SUMMER INTERN) Narrative Performed At RHYTHM STRIP - SCAN (06/29/2018 1:00 PM SUMMER INTERN) Narrative Performed At POC-Glucose meter (06/27/2018 12:07 PM SUMMER INTERN)Only the most recent of37 resultswithin the time period is included. POC-Glucose Meter 141 (H)Comment: TESTED AT 70 - 110 mg/dL [address] [address] Specimen Blood Performing Organization Address City/State/Zipcode Phone Number [address] [address] CENTER CBC with platelet count + automated diff (06/27/2018 5:56 AM SUMMER INTERN)Only the most recent of5 resultswithin the time period is included. WBC 8.7 3.5 - 10.5 K/L [facility] RBC 4.82 3.93 - 5.22 M/L [facility] Hemoglobin 13.2 11.2 - 15.7 GM/DL [facility] Hematocrit 40.8 34.1 - 44.9 % [facility] MCV 84.6 79.4 - 94.8 fL [facility] MCH 27.4 25.6 - 32.2 pg [facility] MCHC 32.4 32.2 - 35.5 GM/DL [facility] RDW 13.2 11.7 - 14.4 % [facility] Platelets 233 150 - 450 K/CU MM [facility] MPV 11.5 9.4 - 12.3 fL [facility] nRBC 0 0 - 0 /100 WBC [facility] % Neutros 65 % [facility] % Lymphs 24 % [facility] % Monos 8 % [facility] % Eos 2 % [facility] % Baso 0 % [facility] # Neutros 5.65 1.56 - 6.13 K/L [facility] # Lymphs 2.07 1.18 - 3.74 K/L [facility] # Monos 0.70 (H) 0.24 - 0.36 K/L [facility] # Eos 0.16 0.04 - 0.36 K/L [facility] # Baso 0.02 0.01 - 0.08 K/L [facility] Immature Granulocytes-Relative 1 0 - 1 % [facility] Specimen Blood Performing Organization Address City/State/Zipcode Phone Number [facility] [address] [place] [address] [phone] CENTER Basic Metabolic Panel (06/27/2018 5:56 AM SUMMER INTERN)Only the most recent of8 resultswithin the time period is included. Sodium 139 136 - 145 meq/L [facility] Potassium 4.1 3.5 - 5.1 meq/L [facility] Chloride 105 98 - 107 meq/L [facility] CO2 28 22 - 29 meq/L [facility] BUN 11 7 - 21 mg/dL [facility] Creatinine 0.69 0.57 - 1.25 mg/dL [facility] Glucose 163 (H) 70 - 105 mg/dL [facility] Calcium 8.6 8.4 - 10.2 mg/dL [facility] EGFR 91Comment: ESTIMATED GFR IS mL/min/1.73 sq m [facility] NOT ACCURATE CREATININE [facility] CENTER CLEARANCE IN PREDICTING GLOMERULAR FILTRATION RATE. ESTIMATED GFR IS NOT APPLICABLE FOR DIALYSIS PATIENTS. Specimen Blood Performing Organization Address City/[facility]/Zipcode Phone Number [address] [address] [place] Sodium, random urine (06/26/2018 11:11 PM SUMMER INTERN) Sodium Urine <20 meq/L [facility] Specimen Urine - Urine, Voided Narrative Performed At Reference Range: No Normals [facility] Performing Organization Address City/[facility] Phone Number [address] [phone] [place] [address] brain without IV contrast (06/26/2018 10:25 PM SUMMER INTERN)Only the most recent of2 resultswithin the time period is included. Narrative Performed At FINAL REPORT [facility] CT Head without contrast CLINICAL HISTORY: concern [...] Report Verified Date/Time:06/26/2018 22:57:28 Reading Location: [address] Transitional Reading Room Procedure Note Interface, External Ris In - 06/26/2018 10:59 PM SUMMER INTERN FINAL REPORT CT Head without contrast CLINICAL [...] Report Verified Date/Time: 06/26/2018 22:57:28 Reading Location: [place] [id number] Transitional Reading Room Performing Organization Address City/State/Zipcode Phone Number GE RIS Specific gravity, urine (06/25/2018 4:23 AM SUMMER INTERN) Specific [place], UA 1.010 1.001 - 1.035 [facility] Specimen Urine - Urine, Fonseca Performing Organization Address City/[facility]/Zipcode Phone Number [address] [phone] CENTER Osmolality, urine (06/25/2018 4:23 AM SUMMER INTERN)Only the most recent of2 resultswithin the time period is included. Osmolality, Ur 340 40-1,400 mOsm/kg [facility] Specimen Urine - Urine, Fonseca Performing Organization Address [facility] Hospital[facility] Phone Number [address] [phone] [place] Tissue Exam (06/24/2018 8:02 AM SUMMER INTERN) Case Report Surgical Pathology Report Case: [id number] [facility] Authorizing Provider:Alex Ruano MD Collected: 06/24/[address] [place] [address] MEDICAL Ordering Location: [address] Received: 06/24/2018 0809 CENTER Service Pathologist: Chon Caraballo MD Specimens: A) - Tumor, pituitary tumor B) - Tumor, pituitary tumor DIAGNOSIS A.PITUITARY GLAND, TRANSSPHENOIDAL HYPOPHYSECTOMY: [facility] NULL CELL ADENOMA INVADING RESPIRATORY MUCOSA [facility] CENTER B. PITUITARY GLAND, TRANSSPHENOIDAL HYPOPHYSECTOMY: NULL CELL ADENOMA ENTRAPPED ADENOHYPOPHYSIS Signing Pathologist Direct Phone Line: [phone] COMMENT Immunoperoxidase stains [facility] performed on the [facility] specimen show that the tumor CENTER has no staining for growth hormone, LH, FSH, TSH, prolactin, or ACTH. 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 The MIB-1 proliferation index is less than 1%. CPT Code(s) 87278 x 2; 21266; 32304; 41497 [facility] x 6; 36669 [facility] CLINICAL HISTORY Pituitary adenoma [facility] SPECIMEN SOURCE A. Pituitary tumor; B. [facility] Pituitary tumor [facility] GROSS DESCRIPTION A. The specimen is received fresh for frozen section diagnosis and labeled "pituitary tumor" and consists of a single fragment of tariq -red soft tissue measuring 0.5 cm in greatest dimension submitted ent [facility] for frozen section diagnosis, and touch preps are performed. CG/ew [facility] B. Received fresh labeled "tumor", description "pituitary tumor" is a 2.0 x 1.0 x 0.3 cm aggregate of pink-tariq to hannah-white rubbery friable soft tissue. The specimen is entirely submitted in cassette B1. DB/pl INTRAOPERATIVE FROZEN SECTION DIAGNOSIS, PITUITARY TUMOR: [facility] CONSULTATION ADENOMA EXTENDING INTO RESPIRATORY MUCOSA PER DR. CARABALLO [facility] MICROSCOPIC DESCRIPTION Performed on A and B [facility] SPECIAL STUDIES The interpretation of this case included the use of immunohistochemistry or special stains. [facility] Immunohistochemistry technical testing was performed at [facility], Pathology Laboratory where it was developed and [...] Tumor Performing Organization Address City/State/Zipcode Phone Number [address] [address] [phone] CENTER Screen, urine (06/24/2018 5:16 AM SUMMER INTERN)Only the most recent of2 resultswithin the time period is included. Preg Test, Ur Negative [facility] Specimen Urine Performing Organization Address City/[facility]/Zipcode Phone Number [facility] [phone] [place] PT/aPTT (06/24/2018 5:07 AM SUMMER INTERN) Protime 13.8 11.7 - 14.7 seconds [facility] INR 1.1 <=5.9 [facility] PTT 32.0 22.5 - 36.0 seconds [facility] Specimen Blood Narrative Performed At RECOMMENDED COUMADIN/WARFARIN INR THERAPY [facility] RANGES STANDARD DOSE: 2.0 - 3.0 Includes: PROPHYLAXIS for venous thrombosis, systemic embolization; TREATMENT for venous thrombosis and/or pulmonary embolus. HIGH RISK: Target INR is 2.5-3.5 for patients with mechanical heart valves. Performing Organization Address City/State/Zipcode Phone Number [address] [phone] [place] ECHOCARDIOGRAM REPORT - SCAN (06/21/2018 9:21 AM SUMMER INTERN) Narrative Performed At Cortisol (06/21/2018 9:11 AM SUMMER INTERN) Cortisol, Total 4.7 3.7 - 19.4 ug/dL [facility] Specimen Blood - Arm, Right Performing Organization Address City/State/Zipcode Phone Number [address] [phone] [place] Insulin-like growth factor (06/21/2018 9:11 AM SUMMER INTERN)Only the most recent of2 resultswithin the time period is included. Igf-1(Somatomedin-C) 36 (L) 52 - 328 ng/mL [facility] Z-Score Male: DNR [facility] Z-Score Female: -2.6 (L) -2.0 - 2.0 SD [facility] Comment: [facility]POR[facility] This test was developed and its analytical performance characteristics have been determined by [facility]. It has not been cleared or approved by FDA. This assay has been validated pursuant to the CLIA regulations and is used for clinical purposes. Specimen Blood - Arm, Right Narrative Performed At Performing Lab [employer] [address] [address] Sixto Rodrigez MD, PhD, ANABELL Performing Organization Address [facility] [place] [place] [address] [place] [address] ACTH (06/21/2018 9:11 AM SUMMER INTERN)Only the most recent of2 resultswithin the time period is included. ACTH 17 6 - 50 pg/mL [facility] Comment: Reference range applies only to the specimens collected between 7am-10am. Specimen Blood - Arm, Right Narrative Performed At Performing Lab [facility] [employer] [address] Sixto Rodrigez MD, PhD, ANABELL Performing Organization Address [facility] [place] [address] [place] [address] Follicle stimulating hormone (FSH) (06/21/2018 9:11 AM SUMMER INTERN) Fsh 2.3 mIU/mL [facility] Comment: Adult female reference ranges for FSH: Follicular Phase: 2.5- 10.2 mIU/mL Mid-Cycle:3.1- 17.7 mIU/mL Luteal Phase: 1.5-9.1 mIU/mL Postmenopausal:23.0-116.3 mIU/mL Children (<18 Years Old): FSH reference ranges established on post-pubertal patient population. Reference range not established for pre-pubertal patients using this assay. For pre-pubertal patients, the [facility] FSH, Pediatrics assay is recommended (test code 18529). Specimen Blood - Arm, Right Narrative Performed At Performing Lab [facility] [employer] [facility] [address] Sixto Rodrigez MD, PhD, ANABELL Performing Organization Address [facility] [place] [place] [address] [address] [place] [address] 2D Echo W/Doppler(CW/PW/Color) (06/20/2018 6:40 PM SUMMER INTERN) Ejection Fraction [facility] ECHO HEART[facility] MKCKESSON CPACS Narrative Performed At Transthoracic Echocardiography Report (TTE) [facility]CHO [facility]ART[facility] Demographics Patient NameVY STOUT Date of Study06/20/2018 Female Visit [id number] Unknown Room [id number] Number Date of 1970Referring Abrahan Mireles MD 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 Grajeda [facility] 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 Phototypesetting Tony Fernandez Interpreting Tarik Domínguez MD Procedure [...] External Ris In - 06/21/2018 8:37 AM SUMMER INTERN Transthoracic Echocardiography Report (TTE) Demographics Patient Name VY STOUT Date of Study 06/20/2018 Gender Female Visit Number [id number] Race Unknown Room Number 2251 Number Date of 1970 Referring Physician Althea Mireles MD 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 CTA carotid (06/19/2018 10:46 PM SUMMER INTERN) Narrative Performed At FINAL REPORT [place] CLINICAL HISTORY: Stroke TECHNIQUE: Initially, noncontrast head [...] Report Verified Date/Time:06/20/2018 01:03:44 Reading Location: [address] Transitional Reading Room Procedure Note Interface, External Ris In - 06/20/2018 1:05 AM SUMMER INTERN FINAL REPORT CLINICAL HISTORY: Stroke TECHNIQUE: Initially, [...] Verified Date/Time: 06/20/2018 01:03:44 Reading Location: [address] Transitional Reading Room Performing Organization Address City/State/Zipcode Phone Number [employer] CTA brain (06/19/2018 10:46 PM SUMMER INTERN) Narrative Performed At FINAL REPORT [facility] CLINICAL HISTORY: Stroke TECHNIQUE: Initially, noncontrast head [...] Report Verified Date/Time:06/20/2018 01:03:44 Reading Location: [address] Transitional Reading Room Procedure Note Interface, External Ris In - 06/20/2018 1:05 AM SUMMER INTERN FINAL REPORT CLINICAL HISTORY: Stroke TECHNIQUE: Initially, [...] Verified Date/Time: 06/20/2018 01:03:44 Reading Location: [address] Transitional Reading Room Performing Organization Address City/State/Zipcode Phone Number GE RIS Rapid drug screen, urine (06/19/2018 11:54 AM SUMMER INTERN) Barbiturate Screen Negative Negative [facility] Benzodiazepine Screen Negative Negative [facility] Cocaine (Metab.) Screen Negative Negative [facility] Methadone Screen Negative Negative [facility] Opiate Screen Negative Negative [facility] Cannabinoid Screen Negative Negative [facility] Amph/Methamph Screen Negative Negative [facility] Phencyclidine Screen Negative Negative [facility] Oxycodone Screen Negative Negative [facility] Specimen Urine - Urine, Voided Narrative Performed At [facility] CONC. Cocaine 300 ng/mL Fscmcqtgglg30 ng/mL Gtaprehksluzwv614 ng/mL Barbiturate 200 ng/mL Adeniehbbsfiz79 ng/mL Bfrhpw140 ng/mL Methadone 300 ng/mL Amphetamine/ 1000 ng/mL Methamphetamine Oxycodone 300 ng/mL This assay provides an unconfirmed qualitative test result for the clinical management of patients in emergency situations. Chain of custody not maintained. Some ftzl-pmr-fbqlcdn medications, as well as adulterants, may cause inaccurate results. Clinical correlation should be applied. A more comprehensive drug screen or confirmation of a detected drug may be performed upon request. Performing Organization Address [facility] Phone Number [address] [address] [place] HIV-1 Antigen with HIV-1/2 Antibody (06/19/2018 11:49 AM SUMMER INTERN) HIV-1 Antigen with HIV 1&2 NON-REACTIVE Nonreactive [facility] Specimen Blood - Arm, Left Performing Organization Address [facility] [place] [place] Phone Number [address] [address] [place] C-Reactive Protein (06/19/2018 11:49 AM SUMMER INTERN) CRP 0.81 (H) 0.00 - 0.50 mg/dL [facility] Specimen Blood - Arm, Left Performing Organization Address [facility] Phone Number [address] [address] [place] RPR (06/19/2018 11:49 AM SUMMER INTERN) RPR Nonreactive Nonreactive [facility] Specimen Blood - Arm, Left Performing Organization Address [facility] Phone Number [address] [address] [phone] C[place] T4, free (06/19/2018 11:49 AM SUMMER INTERN) Free T4 0.89 0.70 - 1.48 ng/dL [facility] Specimen Blood - Arm, Left Performing Organization Address [facility]/Zipcode Phone Number [address] [address] [phone] [place] Osmolality, serum (06/19/2018 11:49 AM SUMMER INTERN) Osmolality Serum 310 (H) 275 - 295 mOsm/kg [facility] Specimen Blood - Arm, Left Performing Organization Address [facility] Phone Number [address] [phone] [place] Prolactin (06/19/2018 3:49 AM SUMMER INTERN) Prolactin 23.34 5.18 - 26.53 ng/mL [facility] Specimen Blood Performing Organization Address [facility] Phone Number [address] [address] [place] Growth hormone (06/19/2018 3:49 AM SUMMER INTERN) Growth Hormone <0.1 < OR=7.1 ng/mL [facility] [...] Guideline. J Clin Endocrinol Metab 2014; 99: 4751-2299]. Using GH stimulation testing, the following result at any point in the timed sequence makes GH deficiency unlikely: Adults (> or=20 years): Insulin Hypoglycemia > or=5.1 ng/mL Arginine/GHRH> or=4.1 ng/mL Glucagon > or=3.0 ng/mL Children (<20 years): All Stimulation Tests> or=10.0 ng/mL Specimen Blood Narrative Performed At Performing Lab [facility] [employer] [address] [place] [address] Sixto Rodrigez MD, PhD, ANABELL Performing Organization Address [facility] [place], [place] [address] [place] [address] Luteinizing hormone (LH) (06/19/2018 3:49 AM SUMMER INTERN) LH, Serum 0.2 mIU/mL Hotlist Comment: Adult Female Reference Ranges for LH: Follicular Phase:1.9-12.5 mIU/mL Mid-Cycle Peak:8.7-76.3 mIU/mL Luteal Phase:0.5-16.9 mIU/mL Postmenopausal: 10.0-54.7 mIU/mL Children (<18 Years Old): LH reference ranges established on post-pubertal patient population. Reference range not established for pre-pubertal patients using this assay. For pre-pubertal patients, the [employer] LH, Pediatric assay is recommended (order code 26348). Specimen Blood Narrative Performed At Performing Lab [facility] [employer] [facility] [address] [place] [id number] Sixto Rodrigez MD, PhD, ANABELL Performing Organization Address [facility] [place], [place] [address] [place] [address] MR brain without & with IV contrast (06/19/2018 2:25 AM SUMMER INTERN) Narrative Performed At FINAL REPORT [facility] MRI brain with and without contrast Comparison:None. 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 Discussion: Multiplanar MR imaging of the brain and sella was provided zxa-pmi-qppa IV gadolinium administration using T1, T2, FLAIR, [...] Report Verified Date/Time: 06/19/2018 02:25:15 Reading Location: [facility] C[address]Y CT Body Reading Room Performing Organization Address City/State/[facility] Phone Number [facility] Hemoglobin A1c (06/19/2018 12:39 AM SUMMER INTERN) Hemoglobin A1C 7.9 (H) 4.3 - 6.1 % [facility] Specimen Blood Performing Organization Address [facility] Phone Number [address] [address] [place] TSH/Free T4 If Indicated (06/18/2018 11:32 PM SUMMER INTERN) TSH 0.41 0.35 - 4.94 uIU/mL [facility] Specimen Blood Performing Organization Address [facility] Phone Number [address] [address] [phone] [facility] Urinalysis w/Microscopic + Reflex to Culture (06/18/2018 10:27 PM SUMMER INTERN) Color, UA Yellow [facility] Clarity, UA Clear [facility] Specific [place], UA 1.011 1.001 - 1.035 [facility] pH, UA 5.0 5.0 - 8.0 [facility] Protein, UA Negative Negative [facility] Glucose, UA >1000 mg/dL (A) Negative [facility] Ketones, UA 20 mg/dL (A) Negative [facility] Bilirubin, UA Negative Negative [facility] Blood, UA Negative Negative [facility] Nitrite, UA Negative Negative [facility] Leukocytes, UA Negative Negative [facility] Urobilinogen, UA 0.2 0.2 - 1.0 mg/dL [facility] RBC, UA <1 /HPF [facility] WBC, UA <1 /HPF [facility] Squam Epithel, UA <1 /HPF [facility] Specimen Source [facility] Specimen Urine - Urine, Clean Catch Performing Organization Address City/State/Zipcode Phone Number [address] [address] [phone] CENTER after 06/29/2017 Insurance Payer Benefit Plan / Subscriber ID Type Phone Address Group [employer]UE [employer]UE [employer] xxxxxxxxxxxx PPO [phone] [id number] [employer] POS/PPO/[place] [address] (Home) [address] [place] [id number] Advance Directives Patient has advance care planning documents, and code status on file. For more information, please contact:[address] [phone] Code Status Date Activated Date Inactivated Comments Full Code 06/26/2018 1:38 PM This code status was determined by: Patient Full Code 06/18/2018 8:39 PM 06/26/2018 11:54 AM This code status was determined by: Patient
--- OUTSIDE RECORDS SUMMARY | 2018-06-30 18:42 | XMS REPORT ---
:1970 Author Organization [facility] Address [address] [place] [address] Dr. Holbrook [address] [place] [address] Care Team Providers Name Role Phone DAJUAN GEORGE Unavailable Unavailable MITCHELL DOBSON Unavailable Unavailable Problems This patient has no known problems. Allergies, Adverse Reactions, Alerts This patient has no known allergies or adverse reactions. Medications This patient has no known medications. Results Test Description Test Time Test Comments Text Results Atomic Results Result Comments TISSUE EXAM 2018-06-28 08:38:00 Surgical Pathology Report Case: [id number] Authorizing Provider: Alex Ruano MD Collected: 06/24/2018801 Ordering Location: [address] Received: 06/24/2018 0809 Service Pathologist: Chon Andino MD Specimens: A) - Tumor, pituitary tumor B) - Tumor, pituitary tumor A.PITUITARY GLAND, TRANSSPHENOIDAL 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 PITUITARY GLAND, TRANSSPHENOIDAL HYPOPHYSECTOMY:NULL CELL ADENOMAENTRAPPED ADENOHYPOPHYSIS Signing Pathologist Direct Phone Line: [phone] signed by Chon Andino MD on 06/28/2018 at 8:38 AMImmunoperoxidase stains performed on the second specimen show that the tumor has no staining for growth hormone, LH, FSH, TSH, prolactin, or ACTH. 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 The MIB-1 proliferation index is less than 1%. 08153 x 2; 14410; 58225; 93872 x 6; 73302Dxxjuahpb adenoma A. Pituitary tumor; B. Pituitary tumorA. [...] stains. Immunohistochemistry technical testing was performed at [facility], Pathology Laboratory where it was developed [...] (BEAKER) (test 141 mg/dL 70-[address] [facility] [address] [place] [address] baxe=[phone]) [facility] [address] POCT-GLUCOSE [id number] 12:06:00 Test Item Value Reference Range Comments POC-GLUCOSE METER (BEAKER) 217 mg/dL 70-110 TESTED AT [address] (test tmcc=7212) [facility] [address] BASIC METABOLIC [id number] 07:18:00 Test Item Value Reference Range Comments SODIUM (BEAKER) (test 139 meq/L 136-145 khfa=116) POTASSIUM (BEAKER) (test 4.1 meq/L 3.5-5.1 dgwu=158) CHLORIDE (BEAKER) (test 105 meq/L 98-107 vfly=561) CO2 (BEAKER) (test 28 meq/L 22-29 bqpl=211) BLOOD UREA NITROGEN 11 mg/dL 7-21 (BEAKER) (test vqyw=353) CREATININE (BEAKER) (test 0.69 mg/dL 0.57-1.25 ywbw=286) GLUCOSE RANDOM (BEAKER) 163 mg/dL 70-105 (test ncqw=172) CALCIUM (BEAKER) (test 8.6 mg/dL 8.4-10.2 sfqm=824) EGFR (BEAKER) (test 91 mL/min/1.73 sq m ESTIMATED GFR IS NOT rviv=0003) ACCURATE CREATININE CLEARANCE IN PREDICTING GLOMERULAR FILTRATION RATE. ESTIMATED GFR IS NOT APPLICABLE FOR DIALYSIS PATIENTS. CBC W/PLT COUNT & AUTO [id number] 06:49:00 Test Item Value Reference Range Comments WHITE BLOOD CELL COUNT (BEAKER) (test vsrl=645) 8.7 K/ L 3.5-10.5 RED BLOOD CELL COUNT (BEAKER) (test vped=830) 4.82 M/ L 3.93-5.22 HEMOGLOBIN (BEAKER) (test wvli=182) 13.2 GM/DL 11.2-15.7 HEMATOCRIT (BEAKER) (test xcgu=673) 40.8 % 34.1-44.9 MEAN CORPUSCULAR VOLUME (BEAKER) (test vcle=025) 84.6 fL 79.4-94.8 MEAN CORPUSCULAR HEMOGLOBIN (BEAKER) (test 27.4 pg 25.6-32.2 fxtv=190) MEAN CORPUSCULAR HEMOGLOBIN CONC (BEAKER) (test 32.4 GM/DL 32.2-35.5 xlfl=833) RED CELL DISTRIBUTION WIDTH (BEAKER) (test 13.2 % 11.7-14.4 sazn=618) PLATELET COUNT (BEAKER) (test jeua=435) 233 K/CU MM 150-450 MEAN PLATELET VOLUME (BEAKER) (test mhwq=794) 11.5 fL 9.4-12.3 NUCLEATED RED BLOOD CELLS (BEAKER) (test 0 /100 WBC 0-0 askp=811) NEUTROPHILS RELATIVE PERCENT (BEAKER) (test 65 % fzfm=798) LYMPHOCYTES RELATIVE PERCENT (BEAKER) (test 24 % ijix=630) MONOCYTES RELATIVE PERCENT (BEAKER) (test 8 % exmj=522) EOSINOPHILS RELATIVE PERCENT (BEAKER) (test 2 % xwsi=845) BASOPHILS RELATIVE PERCENT (BEAKER) (test 0 % vipj=302) NEUTROPHILS ABSOLUTE COUNT (BEAKER) (test 5.65 K/ L 1.56-6.13 oswq=907) LYMPHOCYTES ABSOLUTE COUNT (BEAKER) (test 2.07 K/ L 1.18-3.74 plst=406) MONOCYTES ABSOLUTE COUNT (BEAKER) (test 0.70 K/ L 0.24-0.36 ocjs=238) EOSINOPHILS ABSOLUTE COUNT (BEAKER) (test 0.16 K/ L 0.04-0.36 lgrv=307) BASOPHILS ABSOLUTE COUNT (BEAKER) (test 0.02 K/ L 0.01-0.08 jlgx=995) IMMATURE GRANULOCYTES-RELATIVE PERCENT (BEAKER) 1 % 0-1 (test szii=8246) BASIC METABOLIC [id number] 23:52:00 Test Item Value Reference Range Comments SODIUM (BEAKER) (test 139 meq/L 136-145 cpox=280) POTASSIUM (BEAKER) (test 4.0 meq/L 3.5-5.1 Specimen slightly nunz=487) hemolyzed CHLORIDE (BEAKER) (test 103 meq/L 98-107 snnu=275) CO2 (BEAKER) (test 28 meq/L 22-29 hohq=822) BLOOD UREA NITROGEN 12 mg/dL 7-21 (BEAKER) (test pspi=281) CREATININE (BEAKER) (test 0.72 mg/dL 0.57-1.25 Specimen slightly wuoi=118) hemolyzed GLUCOSE RANDOM (BEAKER) 193 mg/dL 70-105 (test zhei=301) CALCIUM (BEAKER) (test 8.6 mg/dL 8.4-10.2 qaeu=140) EGFR (BEAKER) (test 86 mL/min/1.73 sq m ESTIMATED GFR IS NOT boda=1889) ACCURATE CREATININE CLEARANCE IN PREDICTING GLOMERULAR FILTRATION RATE. ESTIMATED GFR IS NOT APPLICABLE FOR DIALYSIS PATIENTS. SODIUM, RANDOM [id number] 23:49:00 Test Item Value Reference Range Comments SODIUM URINE (BEAKER) (test pjbn=316) < meq/L Reference Range: No NormalsCBC W/PLT COUNT & AUTO [id number] 23: 35:00 Test Item Value Reference Range Comments WHITE BLOOD CELL COUNT (BEAKER) (test xoio=408) 9.7 K/ L 3.5-10.5 RED BLOOD CELL COUNT (BEAKER) (test aiua=275) 4.46 M/ L 3.93-5.22 HEMOGLOBIN (BEAKER) (test vspg=811) 12.2 GM/DL 11.2-15.7 HEMATOCRIT (BEAKER) (test ebpw=744) 37.8 % 34.1-44.9 MEAN CORPUSCULAR VOLUME (BEAKER) (test qtkh=463) 84.8 fL 79.4-94.8 MEAN CORPUSCULAR HEMOGLOBIN (BEAKER) (test 27.4 pg 25.6-32.2 qobp=037) MEAN CORPUSCULAR HEMOGLOBIN CONC (BEAKER) (test 32.3 GM/DL 32.2-35.5 vuyu=932) RED CELL DISTRIBUTION WIDTH (BEAKER) (test 13.0 % 11.7-14.4 nqis=910) PLATELET COUNT (BEAKER) (test wufp=626) 210 K/CU MM 150-450 MEAN PLATELET VOLUME (BEAKER) (test zxcf=281) 11.4 fL 9.4-12.3 NUCLEATED RED BLOOD CELLS (BEAKER) (test 0 /100 WBC 0-0 wnvt=783) NEUTROPHILS RELATIVE PERCENT (BEAKER) (test 61 % ujfs=894) LYMPHOCYTES RELATIVE PERCENT (BEAKER) (test 28 % cqkg=817) MONOCYTES RELATIVE PERCENT (BEAKER) (test 8 % wsje=648) EOSINOPHILS RELATIVE PERCENT (BEAKER) (test 2 % yffk=081) BASOPHILS RELATIVE PERCENT (BEAKER) (test 0 % dmiz=163) NEUTROPHILS ABSOLUTE COUNT (BEAKER) (test 5.87 K/ L 1.56-6.13 rfdc=581) LYMPHOCYTES ABSOLUTE COUNT (BEAKER) (test 2.72 K/ L 1.18-3.74 nipe=869) MONOCYTES ABSOLUTE COUNT (BEAKER) (test 0.80 K/ L 0.24-0.36 vipq=682) EOSINOPHILS ABSOLUTE COUNT (BEAKER) (test 0.22 K/ L 0.04-0.36 qaqn=339) BASOPHILS ABSOLUTE COUNT (BEAKER) (test 0.03 K/ L 0.01-0.08 aeca=954) IMMATURE GRANULOCYTES-RELATIVE PERCENT (BEAKER) 1 % 0-1 (test couo=1143) CT, BRAIN, WITHOUT [id number] 22:57:00FINAL REPORT CT Head without contrast CLINICAL [...] Gamboa Verified Date/Time: 06/26/2018 22:57:28 [address] POCT-GLUCOSE [id number] 21:07:00 Test Item Value Reference Range Comments POC-GLUCOSE METER (BEAKER) 211 mg/dL 70-110 TESTED AT [address] (test dbig=5663) [facility] [address] BASIC METABOLIC [id number] 14:29:00 Test Item Value Reference Range Comments SODIUM (BEAKER) (test 137 meq/L 136-145 opia=019) POTASSIUM (BEAKER) (test 3.6 meq/L 3.5-5.1 kgzf=838) CHLORIDE (BEAKER) (test 100 meq/L 98-107 fdmi=600) CO2 (BEAKER) (test 32 meq/L 22-29 adld=642) BLOOD UREA NITROGEN 12 mg/dL 7-21 (BEAKER) (test mahk=560) CREATININE (BEAKER) (test 0.71 mg/dL 0.57-1.25 hfxs=366) GLUCOSE RANDOM (BEAKER) 182 mg/dL 70-105 (test uawi=962) CALCIUM (BEAKER) (test 8.7 mg/dL 8.4-10.2 rhzy=111) EGFR (BEAKER) (test 88 mL/min/1.73 sq m ESTIMATED GFR IS NOT cpdk=3561) ACCURATE CREATININE CLEARANCE IN PREDICTING GLOMERULAR FILTRATION RATE. ESTIMATED GFR IS NOT APPLICABLE FOR DIALYSIS PATIENTS. CBC W/PLT COUNT & AUTO [id number] 14:25:00 Test Item Value Reference Range Comments WHITE BLOOD CELL COUNT (BEAKER) (test ddwf=641) 12.3 K/ L 3.5-10.5 RED BLOOD CELL COUNT (BEAKER) (test dsmy=386) 4.76 M/ L 3.93-5.22 HEMOGLOBIN (BEAKER) (test qbgx=812) 13.1 GM/DL 11.2-15.7 HEMATOCRIT (BEAKER) (test udxl=533) 40.6 % 34.1-44.9 MEAN CORPUSCULAR VOLUME (BEAKER) (test brpi=917) 85.3 fL 79.4-94.8 MEAN CORPUSCULAR HEMOGLOBIN (BEAKER) (test 27.5 pg 25.6-32.2 icsz=082) MEAN CORPUSCULAR HEMOGLOBIN CONC (BEAKER) (test 32.3 GM/DL 32.2-35.5 nvav=738) RED CELL DISTRIBUTION WIDTH (BEAKER) (test 13.1 % 11.7-14.4 zijn=754) PLATELET COUNT (BEAKER) (test baap=505) 254 K/CU MM 150-450 MEAN PLATELET VOLUME (BEAKER) (test gzrr=578) 11.1 fL 9.4-12.3 NUCLEATED RED BLOOD CELLS (BEAKER) (test 0 /100 WBC 0-0 kyjd=851) NEUTROPHILS RELATIVE PERCENT (BEAKER) (test 68 % cvto=295) LYMPHOCYTES RELATIVE PERCENT (BEAKER) (test 24 % rqxx=746) MONOCYTES RELATIVE PERCENT (BEAKER) (test 6 % jvno=774) EOSINOPHILS RELATIVE PERCENT (BEAKER) (test 1 % zqyy=151) BASOPHILS RELATIVE PERCENT (BEAKER) (test 0 % gymv=958) NEUTROPHILS ABSOLUTE COUNT (BEAKER) (test 8.42 K/ L 1.56-6.13 qxaz=907) LYMPHOCYTES ABSOLUTE COUNT (BEAKER) (test 2.90 K/ L 1.18-3.74 qbpz=559) MONOCYTES ABSOLUTE COUNT (BEAKER) (test 0.79 K/ L 0.24-0.36 oiaw=517) EOSINOPHILS ABSOLUTE COUNT (BEAKER) (test 0.07 K/ L 0.04-0.36 wirm=209) BASOPHILS ABSOLUTE COUNT (BEAKER) (test 0.05 K/ L 0.01-0.08 tdzx=439) IMMATURE GRANULOCYTES-RELATIVE PERCENT (BEAKER) 1 % 0-1 (test akui=8702) POCT-GLUCOSE [id number] 13:38:00 Test Item Value Reference Range Comments POC-GLUCOSE METER (BEAKER) 219 mg/dL 70-110 TESTED AT [address] (test gnen=1418) [place] [address] POCT-GLUCOSE [id number] 12:34:00 Test Item Value Reference Range Comments POC-GLUCOSE METER (BEAKER) 193 mg/dL 70-110 TESTED AT [address] (test owul=4249) [place] [address] POCT-GLUCOSE [id number] 16:17:00 Test Item Value Reference Range Comments POC-GLUCOSE METER (BEAKER) 244 mg/dL 70-110 TESTED AT [address] (test ozkq=6759) [place] [address] POCT-GLUCOSE [id number] 12:08:00 Test Item Value Reference Range Comments POC-GLUCOSE METER (BEAKER) 229 mg/dL 70-110 TESTED AT [address] (test irzf=9948) [place] [address] POCT-GLUCOSE [id number] 08:27:00 Test Item Value Reference Range Comments POC-GLUCOSE METER (BEAKER) 280 mg/dL 70-110 TESTED AT [address] (test umvf=6012) [facility] [address] OSMOLALITY, [id number] 05:16:00 Test Item Value Reference Range Comments OSMOLALITY URINE (BEAKER) (test ipgh=838) 340 mOsm/kg 40-1,400 SPECIFIC GRAVITY, [id number] 04:53:00 Test Item Value Reference Range Comments SPECIFIC GRAVITY UA (BEAKER) (test hbzy=739) 1.010 1.001-1.035 POCT-GLUCOSE [id number] 22:29:00 Test Item Value Reference Range Comments POC-GLUCOSE METER (BEAKER) 257 mg/dL 70-110 TESTED AT [address] (test ovzp=1364) [place] [address] BASIC METABOLIC [id number] 17:49:00 Test Item Value Reference Range Comments SODIUM (BEAKER) (test 137 meq/L 136-145 vhxt=167) POTASSIUM (BEAKER) (test 4.6 meq/L 3.5-5.1 lhtp=129) CHLORIDE (BEAKER) (test 102 meq/L 98-107 vicl=746) CO2 (BEAKER) (test 26 meq/L 22-29 tmuy=795) BLOOD UREA NITROGEN 14 mg/dL 7-21 (BEAKER) (test rmsf=872) CREATININE (BEAKER) (test 0.78 mg/dL 0.57-1.25 wvbk=964) GLUCOSE RANDOM (BEAKER) 246 mg/dL 70-105 (test nums=712) CALCIUM (BEAKER) (test 8.7 mg/dL 8.4-10.2 qlrk=713) EGFR (BEAKER) (test 79 mL/min/1.73 sq m ESTIMATED GFR IS NOT varb=1930) ACCURATE CREATININE CLEARANCE IN PREDICTING GLOMERULAR FILTRATION RATE. ESTIMATED GFR IS NOT APPLICABLE FOR DIALYSIS PATIENTS. POCT-GLUCOSE [id number] 17:02:00 Test Item Value Reference Range Comments POC-GLUCOSE METER (BEAKER) 235 mg/dL 70-110 TESTED AT [address] (test qozp=2265) [place] [address] POCT-GLUCOSE [id number] 12:06:00 Test Item Value Reference Range Comments POC-GLUCOSE METER (BEAKER) 249 mg/dL 70-110 TESTED AT [address] (test ldcv=1636) [place] [address] POCT-GLUCOSE [id number] 09:40:00 Test Item Value Reference Range Comments POC-GLUCOSE METER (BEAKER) 278 mg/dL 70-110 TESTED AT [address] (test wkoh=8407) [place] [address] BASIC METABOLIC [id number] 06:14:00 Test Item Value Reference Range Comments SODIUM (BEAKER) (test 141 meq/L 136-145 whue=700) POTASSIUM (BEAKER) (test 4.1 meq/L 3.5-5.1 eons=454) CHLORIDE (BEAKER) (test 104 meq/L 98-107 hsjm=112) CO2 (BEAKER) (test 30 meq/L 22-29 qdpx=551) BLOOD UREA NITROGEN 14 mg/dL 7-21 (BEAKER) (test gsyy=016) CREATININE (BEAKER) (test 0.70 mg/dL 0.57-1.25 iggl=356) GLUCOSE RANDOM (BEAKER) 146 mg/dL 70-105 (test fllc=258) CALCIUM (BEAKER) (test 9.4 mg/dL 8.4-10.2 pjyb=806) EGFR (BEAKER) (test 89 mL/min/1.73 sq m ESTIMATED GFR IS NOT jorl=7771) ACCURATE CREATININE CLEARANCE IN PREDICTING GLOMERULAR FILTRATION RATE. ESTIMATED GFR IS NOT APPLICABLE FOR DIALYSIS PATIENTS. [id number] 06:03:00 Test Item Value Reference Range Comments PROTIME (BEAKER) (test igtj=333) 13.8 seconds 11.7-14.7 INR (BEAKER) (test wswy=410) 1.1 <=5.9 PARTIAL THROMBOPLASTIN TIME (BEAKER) (test 32.0 seconds 22.5-36.0 zzhp=932) RECOMMENDED COUMADIN/WARFARIN INR THERAPY RANGESSTANDARD DOSE: 2.0 - 3.0 Includes: PROPHYLAXIS forvenous thrombosis, systemic embolization; TREATMENT for venous thrombosis and/or pulmonary embolus.HIGH RISK: Target INR is 2.5-3.5 for patients with mechanical heart valves. SCREEN, [id number] 05: 59:00 Test Item Value Reference Range Comments TEST URINE (BEAKER) (test iixa=963) Negative POCT-GLUCOSE [id number] 05:46:00 Test Item Value Reference Range Comments POC-GLUCOSE METER (BEAKER) 140 mg/dL 70-[address] [facility] [address] (test kdle=8765) [facility] [address] CBC W/PLT COUNT & AUTO [id number] 05:46:00 Test Item Value Reference Range Comments WHITE BLOOD CELL COUNT (BEAKER) (test rslq=478) 9.6 K/ L 3.5-10.5 RED BLOOD CELL COUNT (BEAKER) (test enkk=126) 5.00 M/ L 3.93-5.22 HEMOGLOBIN (BEAKER) (test diwc=584) 14.0 GM/DL 11.2-15.7 HEMATOCRIT (BEAKER) (test xqld=510) 42.1 % 34.1-44.9 MEAN CORPUSCULAR VOLUME (BEAKER) (test nekl=835) 84.2 fL 79.4-94.8 MEAN CORPUSCULAR HEMOGLOBIN (BEAKER) (test 28.0 pg 25.6-32.2 ejfh=346) MEAN CORPUSCULAR HEMOGLOBIN CONC (BEAKER) (test 33.3 GM/DL 32.2-35.5 kgfl=281) RED CELL DISTRIBUTION WIDTH (BEAKER) (test 13.0 % 11.7-14.4 bpbc=156) PLATELET COUNT (BEAKER) (test vnrt=985) 227 K/CU MM 150-450 MEAN PLATELET VOLUME (BEAKER) (test qrjd=388) 11.8 fL 9.4-12.3 NUCLEATED RED BLOOD CELLS (BEAKER) (test 0 /100 WBC 0-0 uotc=551) NEUTROPHILS RELATIVE PERCENT (BEAKER) (test 52 % xxaf=561) LYMPHOCYTES RELATIVE PERCENT (BEAKER) (test 38 % zsmc=901) MONOCYTES RELATIVE PERCENT (BEAKER) (test 6 % vofb=568) EOSINOPHILS RELATIVE PERCENT (BEAKER) (test 3 % ypkq=696) BASOPHILS RELATIVE PERCENT (BEAKER) (test 1 % dauz=139) NEUTROPHILS ABSOLUTE COUNT (BEAKER) (test 5.03 K/ L 1.56-6.13 qayp=640) LYMPHOCYTES ABSOLUTE COUNT (BEAKER) (test 3.62 K/ L 1.18-3.74 arox=519) MONOCYTES ABSOLUTE COUNT (BEAKER) (test 0.62 K/ L 0.24-0.36 oqfu=938) EOSINOPHILS ABSOLUTE COUNT (BEAKER) (test 0.27 K/ L 0.04-0.36 ochc=943) BASOPHILS ABSOLUTE COUNT (BEAKER) (test 0.05 K/ L 0.01-0.08 txrx=899) IMMATURE GRANULOCYTES-RELATIVE PERCENT (BEAKER) 1 % 0-1 (test mkpl=6126) POCT-GLUCOSE [id number] 21:27:00 Test Item Value Reference Range Comments POC-GLUCOSE METER (BEAKER) 223 mg/dL 70-110 TESTED AT [address] (test diex=7214) [place] [address] POCT-GLUCOSE [id number] 17:26:00 Test Item Value Reference Range Comments POC-GLUCOSE METER (BEAKER) 223 mg/dL 70-110 TESTED AT [address] (test bltp=4560) [place] [address] BASIC METABOLIC [id number] 16:43:00 Test Item Value Reference Range Comments SODIUM (BEAKER) (test 139 meq/L 136-145 lejr=836) POTASSIUM (BEAKER) (test 4.5 meq/L 3.5-5.1 Specimen slightly qsyh=520) hemolyzed CHLORIDE (BEAKER) (test 102 meq/L 98-107 abau=887) CO2 (BEAKER) (test 29 meq/L 22-29 qdjg=649) BLOOD UREA NITROGEN 16 mg/dL 7-21 (BEAKER) (test jyxe=000) CREATININE (BEAKER) (test 0.76 mg/dL 0.57-1.25 Specimen slightly yfwa=129) hemolyzed GLUCOSE RANDOM (BEAKER) 217 mg/dL 70-105 (test vxlc=504) CALCIUM (BEAKER) (test 9.6 mg/dL 8.4-10.2 ihjc=250) EGFR (BEAKER) (test 81 mL/min/1.73 sq m ESTIMATED GFR IS NOT htgk=3074) ACCURATE CREATININE CLEARANCE IN PREDICTING GLOMERULAR FILTRATION RATE. ESTIMATED GFR IS NOT APPLICABLE FOR DIALYSIS PATIENTS. POCT-GLUCOSE [id number] 09:06:00 Test Item Value Reference Range Comments POC-GLUCOSE METER (BEAKER) 265 mg/dL 70-110 TESTED AT [address] (test pgde=3487) [place] [address] POCT-GLUCOSE [id number] 00:22:00 Test Item Value Reference Range Comments POC-GLUCOSE METER (BEAKER) 210 mg/dL 70-110 TESTED AT [address] (test aplo=7822) [place] [address] POCT-GLUCOSE [id number] 20:27:00 Test Item Value Reference Range Comments POC-GLUCOSE METER (BEAKER) 235 mg/dL 70-110 TESTED AT [address] (test wlbl=2642) [place] [address] POCT-GLUCOSE [id number] 17:10:00 Test Item Value Reference Range Comments POC-GLUCOSE METER (BEAKER) 264 mg/dL 70-110 TESTED AT [address] (test pgav=2577) [place] [address] POCT-GLUCOSE [id number] 16:00:00 Test Item Value Reference Range Comments POC-GLUCOSE METER (BEAKER) 242 mg/dL 70-110 TESTED AT [address] (test lwbw=2787) [place] [address] POCT-GLUCOSE [id number] 08:54:00 Test Item Value Reference Range Comments POC-GLUCOSE METER (BEAKER) 224 mg/dL 70-110 TESTED AT [address] (test czvm=6515) [place] [address] POCT-GLUCOSE [id number] 21:30:00 Test Item Value Reference Range Comments POC-GLUCOSE METER (BEAKER) 254 mg/dL 70-110 TESTED AT [address] (test ostx=4790) [place] [address] POCT-GLUCOSE [id number] 17:23:00 Test Item Value Reference Range Comments POC-GLUCOSE METER (BEAKER) 193 mg/dL 70-110 TESTED AT [address] (test wsip=0651) [place] [address] POCT-GLUCOSE [id number] 11:53:00 Test Item Value Reference Range Comments POC-GLUCOSE METER (BEAKER) 179 mg/dL 70-110 TESTED AT [address] (test ixxw=6229) [place] [address] [id number] 10:15:00 Test Item Value Reference Range Comments CORTISOL, TOTAL (BEAKER) (test vqnb=4381) 4.7 ug/dL 3.7-19.4 POCT-GLUCOSE [id number] 08:07:00 Test Item Value Reference Range Comments POC-GLUCOSE METER (BEAKER) 184 mg/dL 70-110 TESTED AT [address] (test qrnl=6638) [place] [address] CT, BRAIN, WITHOUT [id number] 22:07:00FINAL REPORT CT Head without contrast CLINICAL [...] [place] Verified Date/Time: 06/20/2018 22:07:25 Reading Location: [address] Transitional Reading Room POCT-GLUCOSE [id number] 21:00:00 Test Item Value Reference Range Comments POC-GLUCOSE METER (BEAKER) 227 mg/dL 70-110 TESTED AT [address] (test qcnx=6562) [place] [address] POCT-GLUCOSE [id number] 16:57:00 Test Item Value Reference Range Comments POC-GLUCOSE METER (BEAKER) 216 mg/dL 70-110 TESTED AT [address] (test gtky=1922) [place] [address] POCT-GLUCOSE [id number] 13:11:00 Test Item Value Reference Range Comments POC-GLUCOSE METER (BEAKER) 198 mg/dL 70-110 TESTED AT [address] (test kqks=8201) [place] [id number] POCT-GLUCOSE [id number] 07:47:00 Test Item Value Reference Range Comments POC-GLUCOSE METER (BEAKER) 213 mg/dL 70-110 TESTED AT [address] (test acxy=3842) [place] [address] BASIC METABOLIC [id number] 06:57:00 Test Item Value Reference Range Comments SODIUM (BEAKER) (test 138 meq/L 136-145 iebl=788) POTASSIUM (BEAKER) (test 3.9 meq/L 3.5-5.1 tgss=387) CHLORIDE (BEAKER) (test 105 meq/L 98-107 pzud=164) CO2 (BEAKER) (test 24 meq/L 22-29 zaat=583) BLOOD UREA NITROGEN 12 mg/dL 7-21 (BEAKER) (test cnbh=497) CREATININE (BEAKER) (test 0.73 mg/dL 0.57-1.25 fgyy=952) GLUCOSE RANDOM (BEAKER) 192 mg/dL 70-105 (test jkkw=572) CALCIUM (BEAKER) (test 8.8 mg/dL 8.4-10.2 sayy=622) EGFR (BEAKER) (test 85 mL/min/1.73 sq m ESTIMATED GFR IS NOT ofnh=5095) ACCURATE CREATININE CLEARANCE IN PREDICTING GLOMERULAR FILTRATION RATE. ESTIMATED GFR IS NOT APPLICABLE FOR DIALYSIS PATIENTS. POCT-GLUCOSE [id number] 05:24:00 Test Item Value Reference Range Comments POC-GLUCOSE METER (BEAKER) 192 mg/dL 70-[address] [facility] [address] (test dxju=6866) [facility] [address] [address], [place] [id number] 01:03:00FINAL REPORT CLINICAL HISTORY: Stroke TECHNIQUE: Initially, [...] Verified Date/ Time: 06/20/2018 01:03:44 Reading Location: [address] Transitional Reading Room [facility], [place], [id number] 01:03:00FINAL REPORT CLINICAL HISTORY: Stroke TECHNIQUE: Initially, [...] Verified Date/ Time: 06/20/2018 01:03:44 Reading Location: [address] Reading Room POCT-GLUCOSE [id number] 00:40:00 Test Item Value Reference Range Comments POC-GLUCOSE METER (BEAKER) 283 mg/dL 70-110 TESTED AT [address] (test oiid=9985) [facility] [address] POCT-GLUCOSE [id number] 21:21:00 Test Item Value Reference Range Comments POC-GLUCOSE METER (BEAKER) 343 mg/dL 70-110 TESTED AT [address] (test wqyh=4674) [facility] [address] SCREEN, [id number] 18:52:00 Test Item Value Reference Range Comments TEST URINE (BEAKER) (test zoxn=120) Negative POCT-GLUCOSE [id number] 17:17:00 Test Item Value Reference Range Comments POC-GLUCOSE METER (BEAKER) 287 mg/dL 70-[address] [facility] [address] (test ojsp=0809) [facility] [address] [id number] 15:59:00 Test Item Value Reference Range Comments RPR SCREEN (BEAKER) (test dpqa=008) Nonreactive Nonreactive POCT-GLUCOSE [id number] 15:07:00 Test Item Value Reference Range Comments POC-GLUCOSE METER (BEAKER) 323 mg/dL 70-110 TESTED AT [address] (test ipmw=5398) [place] [id number] T4, [id number] 13:11:00 Test Item Value Reference Range Comments FREE T4 (BEAKER) (test nysd=988) 0.89 ng/dL 0.70-1.48 HIV-1 ANTIGEN WITH HIV-1/2 [id number] 13:11:00 Test Item Value Reference Range Comments HIV-1 ANTIGEN WITH HIV 1\\T\\2 ANTIBODY (2) Nonreactive Nonreactive (BEAKER) (test jhpk=2269) RAPID DRUG SCREEN, [id number] 12:47:00 Test Item Value Reference Range Comments BARBITURATE URINE (BEAKER) (test gdtf=979) Negative Negative BENZODIAZEPINE SCREEN URINE (BEAKER) (test Negative Negative zgac=418) COCAINE (METAB.) SCREEN (BEAKER) (test sktd=1745) Negative Negative METHADONE SCREEN (BEAKER) (test imas=2353) Negative Negative OPIATE SCREEN URINE (BEAKER) (test pdxn=362) Negative Negative CANNABINOID SCREEN URINE (BEAKER) (test cceq=693) Negative Negative AMPH/METHAMPH SCREEN (BEAKER) (test kyuo=6319) Negative Negative PHENCYCLIDINE SCREEN URINE (BEAKER) (test ahnl=330) Negative Negative OXYCODONE SCREEN URINE (BEAKER) (test jgbt=3136) Negative Negative DRUG CUTOFF CONC.Cocaine 300 ng/mL Cannabinoid 50 ng/mL Benzodiazepine 200 ng/mLBarbiturate 200 ng/ mLPhencyclidine 25 ng/mLOpiate 300 ng/mLMethadone 300 ng/mLAmphetamine/ 1000 ng/mL MethamphetamineOxycodone 300 ng/mLThis assay provides an unconfirmed qualitative test result for the clinical management of patients in emergency situations. Chain of custody not maintained. Some tqxj-two-yehmcdw medications, as well as adulterants, may cause inaccurate results. Clinical correlation should be applied. A more comprehensive drug screen or confirmation of a detected drug may be performed upon request.POCT-GLUCOSE [id number] 12:37:00 Test Item Value Reference Range Comments POC-GLUCOSE METER (BEAKER) 292 mg/dL 70-[address] [facility] [address] (test qkiw=3663) [facility] [address] HEMOGLOBIN [id number] 12:35:00 Test Item Value Reference Range Comments HEMOGLOBIN A1C (BEAKER) (test aoko=744) 7.9 % 4.3-6.1 OSMOLALITY, [id number] 12:34:00 Test Item Value Reference Range Comments OSMOLALITY, SERUM (BEAKER) (test recv=273) 310 mOsm/kg 275-295 C-REACTIVE [id number] 12:28:00 Test Item Value Reference Range Comments C-REACTIVE PROTEIN (BEAKER) (test hbuf=951) 0.81 mg/dL 0.00-0.50 OSMOLALITY, [id number] 12:22:00 Test Item Value Reference Range Comments OSMOLALITY URINE (BEAKER) (test huwq=927) 247 mOsm/kg 40-1,400 CBC W/PLT COUNT & AUTO [id number] 12:14:00 Test Item Value Reference Range Comments WHITE BLOOD CELL COUNT (BEAKER) (test cvad=609) 15.1 K/ L 3.5-10.5 RED BLOOD CELL COUNT (BEAKER) (test iwjk=948) 5.15 M/ L 3.93-5.22 HEMOGLOBIN (BEAKER) (test hvak=822) 14.1 GM/DL 11.2-15.7 HEMATOCRIT (BEAKER) (test dhsv=920) 42.3 % 34.1-44.9 MEAN CORPUSCULAR VOLUME (BEAKER) (test tifz=366) 82.1 fL 79.4-94.8 MEAN CORPUSCULAR HEMOGLOBIN (BEAKER) (test 27.4 pg 25.6-32.2 cvmn=511) MEAN CORPUSCULAR HEMOGLOBIN CONC (BEAKER) (test 33.3 GM/DL 32.2-35.5 qipz=951) RED CELL DISTRIBUTION WIDTH (BEAKER) (test 12.9 % 11.7-14.4 zymz=644) PLATELET COUNT (BEAKER) (test jzzz=042) 278 K/CU MM 150-450 MEAN PLATELET VOLUME (BEAKER) (test gdob=088) 11.5 fL 9.4-12.3 NUCLEATED RED BLOOD CELLS (BEAKER) (test 0 /100 WBC 0-0 xzqx=688) NEUTROPHILS RELATIVE PERCENT (BEAKER) (test 87 % xbho=559) LYMPHOCYTES RELATIVE PERCENT (BEAKER) (test 10 % odkt=106) MONOCYTES RELATIVE PERCENT (BEAKER) (test 3 % pinz=066) EOSINOPHILS RELATIVE PERCENT (BEAKER) (test 0 % snmm=979) BASOPHILS RELATIVE PERCENT (BEAKER) (test 0 % dkfa=945) NEUTROPHILS ABSOLUTE COUNT (BEAKER) (test 13.06 K/ L 1.56-6.13 vtwi=886) LYMPHOCYTES ABSOLUTE COUNT (BEAKER) (test 1.51 K/ L 1.18-3.74 vnbt=831) MONOCYTES ABSOLUTE COUNT (BEAKER) (test 0.38 K/ L 0.24-0.36 ptrb=419) EOSINOPHILS ABSOLUTE COUNT (BEAKER) (test 0.00 K/ L 0.04-0.36 zrjj=982) BASOPHILS ABSOLUTE COUNT (BEAKER) (test 0.02 K/ L 0.01-0.08 pgmm=684) IMMATURE GRANULOCYTES-RELATIVE PERCENT (BEAKER) 1 % 0-1 (test lxig=7673) POCT-GLUCOSE [id number] 10:30:00 Test Item Value Reference Range Comments POC-GLUCOSE METER (BEAKER) 341 mg/dL 70-110 TESTED AT [address] (test uque=5442) [facility] [id number] [id number] 06:17:00 Test Item Value Reference Range Comments PROLACTIN (BEAKER) (test ddgo=348) 23.34 ng/mL 5.18-26.53 POCT-GLUCOSE [id number] 05:55:00 Test Item Value Reference Range Comments POC-GLUCOSE METER (BEAKER) 285 mg/dL 70-110 TESTED AT [address] (test hvhu=2072) [facility] [address] MR, BRAIN, [id number] 02:25:00Pituitary protocolCr 0.6FINAL REPORT MRI brain with and without contrast Comparison: None. 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 Discussion: Multiplanar MR imaging of the brain and sella was provided [id number] IV gadolinium administration using T1, T2, FLAIR, [...] MDReport Verified Date/Time: 06/19/2018 02:25:15 Reading Location: [address] Body Reading Room TSH/FREE T4 IF [id number] 00:26:00 Test Item Value Reference Range Comments THYROID STIMULATING HORMONE (BEAKER) (test 0.41 uIU/mL 0.35-4.94 mukb=430) BASIC METABOLIC [id number] 00:07:00 Test Item Value Reference Range Comments SODIUM (BEAKER) (test 136 meq/L 136-145 xdkf=860) POTASSIUM (BEAKER) (test 4.0 meq/L 3.5-5.1 ytno=926) CHLORIDE (BEAKER) (test 103 meq/L 98-107 mdli=029) CO2 (BEAKER) (test 20 meq/L 22-29 dxmb=615) BLOOD UREA NITROGEN 11 mg/dL 7-21 (BEAKER) (test mcfo=496) CREATININE (BEAKER) (test 0.84 mg/dL 0.57-1.25 cxhw=144) GLUCOSE RANDOM (BEAKER) 357 mg/dL 70-105 (test xepo=681) CALCIUM (BEAKER) (test 9.0 mg/dL 8.4-10.2 rvwt=954) EGFR (BEAKER) (test 72 mL/min/1.73 sq m ESTIMATED GFR IS NOT yrxz=6588) ACCURATE CREATININE CLEARANCE IN PREDICTING GLOMERULAR FILTRATION RATE. ESTIMATED GFR IS NOT APPLICABLE FOR DIALYSIS PATIENTS. URINALYSIS W/ REFLEX URINE [id number] 23:13:00 Test Item Value Reference Range Comments COLOR (BEAKER) (test cgsm=789) Yellow CLARITY (BEAKER) (test ghtw=584) Clear SPECIFIC GRAVITY UA (BEAKER) (test ntky=918) 1.011 1.001-1.035 PH UA (BEAKER) (test fhrp=376) 5.0 5.0-8.0 PROTEIN UA (BEAKER) (test wucd=037) Negative Negative GLUCOSE UA (BEAKER) (test fepw=068) >1000 mg/dL Negative KETONES UA (BEAKER) (test fuqk=260) 20 mg/dL Negative BILIRUBIN UA (BEAKER) (test czzy=177) Negative Negative BLOOD UA (BEAKER) (test meub=565) Negative Negative NITRITE UA (BEAKER) (test yupp=080) Negative Negative LEUKOCYTE ESTERASE UA (BEAKER) (test euxg=855) Negative Negative UROBILINOGEN UA (BEAKER) (test gcgi=659) 0.2 mg/dL 0.2-1.0 RBC UA (BEAKER) (test howp=172) < /HPF WBC UA (BEAKER) (test jkkb=490) < /HPF SQUAMOUS EPITHELIAL (BEAKER) (test bxiy=158) < /HPF SOURCE(BEAKER) (test epte=4188)
--- OUTSIDE RECORDS SUMMARY | 2018-06-30 18:42 | XMS REPORT ---
[...] Date Status Dosage System Date Losartan [facility] 49602036254 50-12.5 MG February 12, Active 1 tablet Potassium-HCTZ Orally Once a 2017 day Results No Known Results Summary Purpose eClinicalWorks Submission
--- OUTSIDE RECORDS SUMMARY | 2018-06-30 18:42 | XMS REPORT ---
[...] Status Dosage System Date Date Atorvastatin Calcium [facility] 92530556559 10 MG Oral Active TAKE 1 TABLET BY MOUTH AT BEDTIME. ProAir HFA [facility] 13565803594 108 (90 Base) Active USE 1-2 MCG/ACT PUFFS BY Inhalation MOUTH EVERY 4-6 HOURS Levothyroxine Sodium ND 91936651680 88 MCG Oral Active TAKE 1 TABLET BY MOUTH EVERY MORNING Valsartan-Hydrochlor ND 38684709031 80-12.5 MG Active TAKE 1 othiazide Oral TABLET BY MOUTH EVERY DAY Benzonatate ND 15683581060 200 MG Oral Active TAKE ONE CAPSULE BY MOUTH 3 TIMES A DAY NEEDED FOR COUGH MethylPREDNISolone ND 86601792984 4 MG Oral Active TAKE 6 TABLETS ON DAY 1 DIRECTED ON PACKAGE AND DECREASE BY 1 TAB EACH DAY FOR A TOTAL OF 6 DAYS GlyBURIDE ND 12442520081 5 MG Orally Iraida Active 1 tablet Once a day 2017 breakfast or the first main meal of the day MetFORMIN HCl ER ND 51946609037 750 MG Oral Active TAKE 1 TABLET BY MOUTH 2 TIMES DAILY BEFORE BREAKFAST AND DINNER. Results No Known Results Summary Purpose eClinicalWorks Submission
--- OUTSIDE RECORDS SUMMARY | 2018-06-30 18:42 | XMS REPORT ---
[...] End Status Dosage System Date Date Diflucan [facility] 44330344122 150 MG Orally Feb 20Feb Active 1 tablet Once a day 2017 Nitrofurantoin ND 96868876295 100 MG Orally Feb 20Feb Active 1 capsule Macrocrystal BID 2017 12, with food 2018 or milk GlyBURIDE ND 37983393923 5 MG Orally January 21, Active 1 tablet Once a day 2017 with breakfast or the first main meal of the day Levothyroxine ND 21992106777 88 MCG Oral Active TAKE 1 Sodium TABLET BY MOUTH EVERY MORNING Losartan ND 93619370320 50-12.5 MG February 12, Active 1 tablet Potassium-HCTZ Orally Once a 2018 day Valsartan-Hydroch ND 48625925094 80-12.5 MG Oral Active TAKE 1 lorothiazide TABLET BY MOUTH EVERY DAY Results Name Result Date Reference Range Unit Abnormality Flag THINPREP TIS PAP AND HPV mRNA E6/E7, CHLAMYDIA/N.GONORRHOEAE URINALYSIS AUTO W/O SCOPE (44731) ----PROTEIN N [id number] ----pH 5.5 20180220 ----NIT P [id number] ----CONCEPCION 1+ [id number] ----URO 1.0 [id number] ----SPECIFIC GRAVITY 1.015 20180220 ----BLO TR [id number] ----BILIRUBIN N [id number] ----KETONES N [id number] ----GLUCOSE N [id number] Summary Purpose eClinicalWorks Submission
--- OUTSIDE RECORDS SUMMARY | 2018-06-30 18:42 | XMS REPORT ---
:1970 Author Organization eClinicalWorks Care Team Providers Name Role Phone Lares, Neeru Provider Role Unavailable Allergies No Known [...]
[2018-06-30 20:01] LABS: Absolute Lymphocytes (CBC) 2.8 K/uL (0.7-4.9); Absolute Monocytes 0.7 K/uL (0.1-1.3); Absolute Neutrophil 11.1 K/uL (1.8-8.0); Basophils % 0.7 % (0-1.3); Eosinophils % 1.1 % (0-4.4); Lymphocytes % 18.7 % (15.3-44.8); MCH 27.8 pg (27.0-35.0); MCV 83.5 fL (80-100); MPV 9.8 fL (7.6-11.3); Monocytes % 4.8 % (3.3-12.3); RBC Red Blood Cell Count 4.78 M/uL (3.86-4.86)
[2018-06-30 20:11] LABS: Protime INR 1.08
[2018-06-30 20:19] LABS: ALT/SGPT 57 U/L (12-78); AST/SGOT 20 U/L (15-37); Albumin 3.3 g/dL (3.4-5.0); Alkaline Phosphatase 107 U/L (45-117); BUN Blood Urea Nitrogen 14 mg/dL (7-18); Bicarbonate 27 mmol/L (21-32); Bilirubin Direct 0.2 mg/dL (0-0.2); Bilirubin Total 0.4 mg/dL (0.2-1.0); Glucose Level 175 mg/dL (74-106); Magnesium 2.3 mg/dL (1.8-2.4); NT PRO-BNP 132 pg/mL (<125); Potassium 3.7 mmol/L (3.5-5.1); Protein, Total 6.9 g/dL (6.4-8.2); Sodium Level 143 mmol/L (136-145); Troponin (Emerg Dept Use Only) < 0.02 ng/mL (0.0-0.045)
--- NOTE | 2018-06-30 20:29 | RAD REPORT ---
EXAM DESCRIPTION: RAD - Chest Single View - 06/30/2018 8:01 pm CLINICAL HISTORY: SOB Chest pain. COMPARISON: Chest Single View dated 06/18/2018; Chest Single View dated 06/04/2018; Chest Single Vie w dated 05/11/2018; Chest Single View dated 10/19/2017 FINDINGS: Portable technique limits examination quality. The lungs are grossly clear. The heart is normal in size. No displaced fractures. IMPRESSION: No acute intrathoracic process suspected.
[2018-06-30 21:07] LABS: Urine Blood NEGATIVE (NEG); Urine Glucose NEGATIVE (NEG); Urine Protein NEGATIVE (NEG)
--- NOTE | 2018-06-30 21:36 | ER ---
Nurse's Notes [facility] Name: Chantal Stout Age: 48 yrs Sex: Female : 1970 Arrival Date: 06/30/2018 Time: 18:40 Bed 28 Private MD: Diagnosis: Diarrhea, unspecified Presentation: 06/30 18:49 Presenting complaint: Patient states: Reports continued diarrhea and frequent urination aj for 4 days. Patient was seen at this facility 2 days ago. Transition of care: patient was not received from another setting of care. Onset of symptoms was June 26, 2018. Risk Assessment: Do you want to hurt yourself or someone else? Patient reports no desire to harm self or others. Initial Sepsis Screen: Does the patient meet any 2 criteria? No. Patient's initial sepsis screen is negative. Does the patient have a suspected source of infection? No. Patient's initial sepsis screen is negative. Care prior to arrival: None. 18:49 Method Of Arrival: Ambulatory aj 18:49 Acuity: NOÉ 3 aj Triage Assessment: 18:52 General: Appears in no apparent distress. comfortable, obese, Behavior is calm, aj cooperative, appropriate for age. Pain: Denies pain. Neuro: Level of Consciousness is awake, alert, obeys commands, Oriented to person, place, time, situation, Appropriate for age. Respiratory: Airway is patent Respiratory effort is even, unlabored, Respiratory pattern is regular, symmetrical. GI: Reports diarrhea. : Reports urinary frequency. Derm: Skin is intact, is healthy with good turgor, Skin is pink, warm \T\ dry. normal. Historical: - Allergies: 18:52 Bactrim; aj 18:52 Cephalexin; aj 18:52 Codeine; aj 18:52 Iodine; aj 18:52 Levaquin; aj 18:52 Sulfa (Sulfonamide Antibiotics); aj - Home Meds: 18:52 amlodipine 10 mg tab 1 tab once daily [Active]; glyburide 5 mg Oral tab 1 tab once aj daily [Active]; hydrocortisone 10 mg Oral tab 1 tab 2 times per day [Active]; levothyroxine 75 mcg tab 1 tab once daily [Active]; losartan 50 mg Oral tab 1 tab once daily [Active]; metformin 750 mg Oral Tb24 1 tab twice a day [Active]; omeprazole 20 mg Oral cpDR 1 cap once daily [Active]; - PMHx: 18:52 Asthma; Diabetes - NIDDM; Anemia; Hypertension; Hypothyroidism; pituitary tumor- aj surgically removed Jun 24; - PSHx: 18:52 Pituitary tumor removal; aj - Immunization history:: Adult Immunizations up to date. - Social history:: Smoking status: Patient/guardian denies using tobacco. - Ebola Screening: : Patient negative for fever greater than or equal to 101.5 degrees Fahrenheit, and additional compatible Ebola Virus Disease symptoms Patient denies exposure to infectious person Patient denies travel to an Ebola-affected area in the 21 days before illness onset No symptoms or risks identified at this time. Screenin:26 Abuse screen: Denies threats or abuse. Denies injuries from another. Nutritional rv screening: No deficits noted. Tuberculosis screening: No symptoms or risk factors identified. Fall Risk None identified. Assessment: 19:22 General: Appears in no apparent distress. comfortable, Behavior is calm, cooperative. rv Pain: Denies pain. Neuro: Level of Consciousness is awake, alert, obeys commands, Oriented to person, place, time, situation. Cardiovascular: Capillary refill < 3 seconds. Respiratory: Airway is patent. GI: No signs and/or symptoms were reported involving the gastrointestinal system. : No signs and/or symptoms were reported regarding the genitourinary system. EENT: No signs and/or symptoms were reported regarding the EENT system. Derm: Skin is intact. Musculoskeletal: No signs and/or symptoms reported regarding the musculoskeletal system. 20:58 Reassessment: Patient appears in no apparent distress at this time. Patient is alert, rv oriented x 3, equal unlabored respirations, skin warm/dry/pink. Vital Signs: 18:52 BP 143 / 82; Pulse 72; Resp 19; Temp 98.1; Pulse Ox 99% on R/A; Weight 122.47 kg; aj Height 5 ft. 4 in. (162.56 cm); 20:11 BP 100 / 56; Pulse 62; Resp 16 S; Pulse Ox 98% on R/A; rv 20:30 BP 95 / 58; Pulse 59; Resp 16; Pulse Ox 97% on R/A; rv 21:00 BP 98 / 61; Pulse 55; Resp 16; Pulse Ox 98% on R/A; rv 22:01 BP 117 / 85; Pulse 61; Resp 16; Pulse Ox 98% on R/A; rv 18:52 Body Mass Index 46.34 (122.47 kg, 162.56 cm) ED Course: 18:40 Patient arrived in ED. as 18:51 Triage completed. aj 18:52 Arm band placed on left wrist. Patient placed in an exam room, on a stretcher, on pulse aj oximetry. 19:08 Toni Torres MD is Attending Physician. tw4 19:26 Patient has correct armband on for positive identification. Bed in low position. Call rv light in reach. Side rails up X 1. Adult w/ patient. Pulse ox on. NIBP on. 19:55 Urine --Ancillary (enter results) Sent. rv 19:55 Urine Dipstick--Ancillary (enter results) Sent. rv 19:55 Inserted saline lock: 22 gauge in left antecubital area, using aseptic technique. rv 20:22 XRAY Chest (1 view) In Process Unspecified. EDMS 21:32 Stool Culture Sent. rv 21:32 Rotavirus Antigen Sent. rv 21:32 Occult Blood Sent. rv 21:32 Fecal Leukocyte Stain Sent. rv 21:32 CDIFF Sent. rv 22:02 No provider procedures requiring assistance completed. IV discontinued, bleeding rv controlled, No redness/swelling at site. Pressure dressing applied. Administered Medications: No medications were administered Outcome: 21:35 Discharge ordered by . tw4 22:02 Discharged to home ambulatory. rv 22:02 Condition: good 22:02 Discharge instructions given to patient, Instructed on discharge instructions, follow up and referral plans. medication usage, Demonstrated understanding of instructions, follow-up care, medications. 22:02 Patient left the ED. rv Signatures: Dispatcher [employer] EDMS Tamia Tai, RN RN Katlyn Cr as Toni Torres MD MD tw4 Igor Driver, RN RN rv Corrections: (The following items were deleted from the chart) 21:50 21:32 Ova and Parasites+ drawn and sent. rv EDMS
--- NOTE | 2018-06-30 21:36 | EDPHYS ---
Physician Documentation [facility] Name: Chantal Stout Age: 48 yrs Sex: Female : 1970 Arrival Date: 06/30/2018 Time: 18:40 Bed 28 Private MD: KRUPA Physician Toni Torres HPI: 06/30 22:55 This 48 yrs old Female presents to ER via Ambulatory with complaints of tw4 Cough, Diarrhea. 22:55 The patient or guardian reports cough, that is intermittent. Onset: The tw4 symptoms/episode began/occurred 2 day(s) ago. Severity of symptoms: At their worst the symptoms were. Modifying factors: The symptoms are alleviated by nothing, the symptoms are aggravated by nothing. The patient has not experienced similar symptoms in the past, but family has similar symptoms. 22:55 The patient has not experienced similar symptoms in the past. tw4 Historical: - Allergies: 18:52 Bactrim; aj 18:52 Cephalexin; aj 18:52 Codeine; aj 18:52 Iodine; aj 18:52 Levaquin; aj 18:52 Sulfa (Sulfonamide Antibiotics); aj - Home Meds: 18:52 amlodipine 10 mg tab 1 tab once daily [Active]; glyburide 5 mg Oral tab 1 tab once aj daily [Active]; hydrocortisone 10 mg Oral tab 1 tab 2 times per day [Active]; levothyroxine 75 mcg tab 1 tab once daily [Active]; losartan 50 mg Oral tab 1 tab once daily [Active]; metformin 750 mg Oral Tb24 1 tab twice a day [Active]; omeprazole 20 mg Oral cpDR 1 cap once daily [Active]; - PMHx: 18:52 Asthma; Diabetes - NIDDM; Anemia; Hypertension; Hypothyroidism; pituitary tumor- aj surgically removed Jun 24; - PSHx: 18:52 Pituitary tumor removal; aj - Immunization history:: Adult Immunizations up to date. - Social history:: Smoking status: Patient/guardian denies using tobacco. - Ebola Screening: : Patient negative for fever greater than or equal to 101.5 degrees Fahrenheit, and additional compatible Ebola Virus Disease symptoms Patient denies exposure to infectious person Patient denies travel to an Ebola-affected area in the 21 days before illness onset No symptoms or risks identified at this time. ROS: 22:55 Constitutional: Negative for fever, chills, and weight loss, Eyes: Negative for injury, tw4 pain, redness, and discharge, Cardiovascular: Negative for chest pain, palpitations, and edema. 22:55 Abdomen/GI: Negative for abdominal pain, nausea, vomiting, diarrhea, and constipation, Back: Negative for injury and pain, MS/Extremity: Negative for injury and deformity, Skin: Negative for injury, rash, and discoloration, Neuro: Negative for headache, weakness, numbness, tingling, and seizure. 22:55 ENT: Positive for 22:55 Respiratory: Positive for cough, Negative for dyspnea on exertion, hemoptysis. Exam: 22:55 Constitutional: This is a well developed, well nourished patient who is awake, alert, tw4 and in no acute distress. Eyes: Pupils equal round and reactive to light, extra-ocular motions intact. Lids and lashes normal. Conjunctiva and sclera are non-icteric and not injected. Cornea within normal limits. Periorbital areas with no swelling, redness, or edema. Chest/axilla: Normal chest wall appearance and motion. Nontender with no deformity. No lesions are appreciated. Cardiovascular: Regular rate and rhythm with a normal S1 and S2. No gallops, murmurs, or rubs. Normal PMI, no JVD. No pulse deficits. Respiratory: Lungs have equal breath sounds bilaterally, clear to auscultation and percussion. No rales, rhonchi or wheezes noted. No increased work of breathing, no retractions or nasal flaring. Abdomen/GI: Soft, non-tender, with normal bowel sounds. No distension or tympany. No guarding or rebound. No evidence of tenderness throughout. Back: No spinal tenderness. No costovertebral tenderness. Full range of motion. MS/ Extremity: Pulses equal, no cyanosis. Neurovascular intact. Full, normal range of motion. Neuro: Awake and alert, GCS 15, oriented to person, place, time, and situation. Cranial nerves II-XII grossly intact. Motor strength 5/5 in all extremities. Sensory grossly intact. Cerebellar exam normal. Normal gait. Vital Signs: 18:52 BP 143 / 82; Pulse 72; Resp 19; Temp 98.1; Pulse Ox 99% on R/A; Weight 122.47 kg; aj Height 5 ft. 4 in. (162.56 cm); 20:11 BP 100 / 56; Pulse 62; Resp 16 S; Pulse Ox 98% on R/A; rv 20:30 BP 95 / 58; Pulse 59; Resp 16; Pulse Ox 97% on R/A; rv 21:00 BP 98 / 61; Pulse 55; Resp 16; Pulse Ox 98% on R/A; rv 22:01 BP 117 / 85; Pulse 61; Resp 16; Pulse Ox 98% on R/A; rv 18:52 Body Mass Index 46.34 (122.47 kg, 162.56 cm) aj MDM: 19:08 Patient medically screened. tw4 22:55 Differential Diagnosis: Obstructed Airway Influenza. Data reviewed: vital signs, nurses tw4 notes. Test interpretation: by ED physician or midlevel provider: ECG. Counseling: I had a detailed discussion with the patient and/or guardian regarding: the historical points, exam findings, and any diagnostic results supporting the discharge/admit diagnosis. Special discussion: I discussed with the patient/guardian in detail that at this point there is no indication for admission to the hospital. It is understood, however, that if the symptoms persist or worsen the patient needs to return immediately for re-evaluation. 06/30 19:20 Order name: Urine Dipstick--Ancillary (enter results) [facility] 06/30 19:20 Order name: Urine --Ancillary (enter results) [facility] 06/30 19:36 Order name: Basic Metabolic Panel; Complete Time: 20:50 tw4 06/30 20:50 Interpretation: Normal except: GLUC 175; GFR 89. [facility] 06/30 19:36 Order name: CBC with Diff; Complete Time: 20:50 tw4 06/30 20:50 Interpretation: Normal except: WBC 14.9; TANIA% 74.7; NEUT A 11.1. 4 06/30 19:36 Order name: LFT's; Complete Time: 20:50 tw4 06/30 20:50 Interpretation: Normal except: ALB 3.3; GLOB 3.6; A/G 0.9. tw4 06/30 19:36 Order name: Magnesium; Complete Time: 20:50 tw4 06/30 20:50 Interpretation: Within normal limits: MG 2.3. 4 06/30 19:36 Order name: NT PRO-BNP; Complete Time: 20:50 tw4 06/30 20:50 Interpretation: Normal except: NT PRO-BNP 132. 06/30 19:36 Order name: PT-INR; Complete Time: 20:50 06/30 20:50 Interpretation: Normal except: PT 12.7. 06/30 19:36 Order name: Troponin (emerg Dept Use Only); Complete Time: 20:50 06/30 20:50 Interpretation: Within normal limits: TROPED < 0.02. 06/30 19:36 Order name: Stool Culture 06/30 19:36 Order name: Rotavirus Antigen 06/30 19:36 Order name: Occult Blood 06/30 19:36 Order name: Fecal Leukocyte Stain 06/30 19:36 Order name: XRAY Chest (1 view); Complete Time: 20:50 06/30 19:36 Order name: EKG; Complete Time: 20:22 06/30 19:36 Order name: Cardiac monitoring; Complete Time: 20:09 06/30 19:36 Order name: EKG - Nurse/Tech; Complete Time: 20:09 06/30 19:36 Order name: IV Saline Lock; Complete Time: 19:54 06/30 19:36 Order name: Labs collected and sent; Complete Time: 19:55 06/30 19:36 Order name: O2 Per Protocol; Complete Time: 19:55 06/30 19:36 Order name: O2 Sat Monitoring; Complete Time: 19:55 06/30 19:36 Order name: CDIFF tw4 EC/10 01:16 Rate is 62 beats/min. Rhythm is regular. QRS [place] is Normal. [place] interval is normal. QRS tw4 interval is normal. QT interval is normal. No Q waves. No ST changes noted. Clinical impression: Normal ECG. Interpreted by me. Reviewed by me. Administered Medications: No medications were administered Disposition: 01:16 Chart complete. Disposition: 06/30/18 21:35 Discharged to Home. Impression: Diarrhea, unspecified. - Condition is Stable. - Discharge Instructions: Food Choices to Help Relieve Diarrhea, Adult, Diarrhea, Adult. - Prescriptions for Lomotil 2.5- 0.025 mg Oral Tablet - take 2 tablet by ORAL route once daily As needed; 20 tablet. - Medication Reconciliation Form, Thank You Letter, Antibiotic Education, Prescription Opioid Use form. - Follow up: Private Physician; When: Upon discharge from the Emergency Department; Reason: If symptoms return, Recheck today's complaints, Continuance of care. - Problem is new. - Symptoms have improved. Signatures: Dispatcher [employer] [facility] Tamia Tai, RN RN Toni Martínez MD MD tw4 Igor Driver RN RN rv Corrections: (The following items were deleted from the chart) 06/30 21:50 20:22 Ova and Parasites+MR.LAB.BRZ ordered. [facility] 22:02 21:35 06/30/2018 21:35 Discharged to Home. Impression: Diarrhea, unspecified. Condition rv is Stable. Forms are Medication Reconciliation Form, Thank You Letter, Antibiotic Education, Prescription Opioid Use. Follow up: Private Physician; When: Upon discharge from the Emergency Department; Reason: If symptoms return, Recheck today's complaints, Continuance of care. Problem is new. Symptoms have improved. tw4
[2018-06-30 22:16] VITALS: TEMP 98.1
[2018-06-30 22:18] VITALS: O2SAT 98
[2018-06-30 22:19] VITALS: BP 117/85
--- NOTE | 2018-07-01 07:11 | EKG ---
Test Date: 2018-06-30 Test Time: 20:01:21 Car Construction Superintendent: MEASUREMENT RESULTS: Intervals: Rate: 62 NE: 156 QRSD: 82 QT: 434 QTc: 440 [place]: P: 70 NE: 156 QRS: 28 T: 46 INTERPRETIVE STATEMENTS: Normal sinus rhythm Low voltage QRS Borderline ECG Compared to ECG 06/18/2018 13:34:48 Prolonged QT interval no longer present Electronically Signed On 07-01-18 07:10:54 FLOOR ASSOCIATE by Ruslan Garibay
== END 2018-06-30 22:02 | disposition home or self-care (01) ==
LOC: ER 18:38
DX: R19.7 Diarrhea, unspecified (principal); I10 Essential (primary) hypertension; E11.9 Type 2 diabetes mellitus without complications; E03.9 Hypothyroidism, unspecified; Z88.1 Allergy status to other antibiotic agents; Z88.2 Allergy status to sulfonamides; Z88.5 Allergy status to narcotic agent; Z91.048 Other nonmedicinal substance allergy status
CPT/HCPCS: 36415; 71045; 80048; 80076; 81003; 81025; 83735; 83880; 84484; 85025; 85610; 87045; 87046; 87425; 87493; 89055; 93005; 99284

== ENCOUNTER 2018-07-12 15:30 | Emergency (ER) | payer BC ==
[2018-07-12 16:19] LABS: Absolute Lymphocytes (CBC) 3.3 K/uL (0.7-4.9); Absolute Monocytes 0.8 K/uL (0.1-1.3); Absolute Neutrophil 8.4 K/uL (1.8-8.0); Basophils % 1.3 % (0-1.3); Eosinophils % 1.1 % (0-4.4); Hematocrit 41.6 % (36.0-45.0); Lymphocytes % 26.1 % (15.3-44.8); MCH 28.1 pg (27.0-35.0); MCV 83.4 fL (80-100); MPV 10.1 fL (7.6-11.3); Monocytes % 6.1 % (3.3-12.3); RBC Red Blood Cell Count 4.99 M/uL (3.86-4.86)
--- NOTE | 2018-07-12 16:24 | RAD REPORT ---
EXAM DESCRIPTION: RAD - Chest Single View - 07/12/2018 4:18 pm CLINICAL HISTORY: right upper abdomen pain Chest pain. COMPARISON: Chest Single View dated 06/30/2018; Chest Single View dated 06/18/2018; Chest Single View dated 06/04/2018; Chest Single View dated 05/11/2018 FINDINGS: Portable technique limits examination quality. The lungs are grossly clear. The heart is normal in size. No displaced fractures. IMPRESSION: No acute intrathoracic process suspected.
[2018-07-12 16:31] LABS: Albumin 3.4 g/dL (3.4-5.0); Bilirubin Direct 0.1 mg/dL (0-0.2); Bilirubin Total 0.5 mg/dL (0.2-1.0); Magnesium 2.2 mg/dL (1.8-2.4); Potassium 4.1 mmol/L (3.5-5.1); Protein, Total 7.2 g/dL (6.4-8.2)
[2018-07-12 16:33] LABS: Urine Blood NEGATIVE (NEG); Urine Glucose NEGATIVE (NEG); Urine Specific Gravity 1.015 (1.005-1.030)
[2018-07-12] MEDS ORDERED: ONDANSETRON 4 MG/2 ML VIAL ONE (16:33)
[2018-07-12] MEDS ORDERED: NA CHLORIDE 0.9% 1,000 ML ONE (16:33)
[2018-07-12] MEDS ORDERED: FAMOTIDINE 20 MG/2 ML VIAL IV ONE (16:33)
[2018-07-12] MEDS ORDERED: FENTANYL CITR 100 MCG/2 ML ONE (16:33)
[2018-07-12 16:34] LABS: Urine Protein NEGATIVE (NEG); Urine Specific Gravity 1.015 (1.005-1.030)
--- NOTE | 2018-07-12 17:00 | RAD REPORT ---
EXAM DESCRIPTION: US - Abdomen Exam Limited - 07/12/2018 4:51 pm CLINICAL HISTORY: RUQ abdomen pain COMPARISON: Abdomen Exam Limited dated 12/07/2017 FINDINGS: The gallbladder demonstrates no gallstones. No pericholecystic fluid or gallbladder wall t hickening. The common bile duct is normal measuring 4 mm. The liver demonstrates no findings of intrahepatic biliary dilatation. IMPRESSION: Unremarkable examination.
[2018-07-12] MEDS ORDERED: DIPHENHYDRAMINE 50 MG/ML VIAL ONE (17:56)
--- NOTE | 2018-07-12 18:05 | EKG ---
Test Date: 2018-07-12 Test Time: 16:31:50 [place] Specialist: SANGEETA MEASUREMENT RESULTS: Intervals: Rate: 74 VA: 156 QRSD: 80 QT: 396 QTc: 439 [place]: P: 71 VA: 156 QRS: 58 T: 48 INTERPRETIVE STATEMENTS: Normal sinus rhythm Low voltage QRS Borderline ECG Compared to ECG 06/30/2018 20:01:21 No significant changes Electronically Signed On 07-12-18 18:04:40 PILLOWCASE CLEANER by Ruslan Garibay
--- NOTE | 2018-07-12 18:54 | RAD REPORT ---
EXAM DESCRIPTION: CTAbdomen Pelvis W Contrast - 07/12/2018 6:44 pm CLINICAL HISTORY: Abdominal pain. ABD PAIN COMPARISON: Abdomen Exam Limited dated 07/12/2018 TECHNIQUE: Biphasic CT imaging of the abdomen and pelvis was performed with 100 ml non-ionic IV cont rast. All CT scans are performed using dose optimization technique as appropriate and may include automated exposure control or mA/KV adjustment according to patient size. FINDINGS: The lung bases are clear. The liver demonstrates diffuse fatty infiltration. The spleen, pancreas, adrenal glands and kidneys a re within normal limits. No bowel obstruction, free air, free fluid or abscess. Prominent fecal retention in the colon. The ap pendix is normal. No evidence of significant lymphadenopathy. No suspicious bony findings. IMPRESSION: No acute intra-abdominal or pelvic finding. Fatty liver.
--- OUTSIDE RECORDS SUMMARY | 2018-07-12 19:04 | XMS REPORT | Clinical Summary ---
:1970 Author Organization [facility] Address [address] [place] [address] Care Team Providers Name Role Phone Pcp, [...] 0 Active 5 MG tablet mouth daily. sod 1 packet by 3 packet 5 06/25/2018 Active usfhk-cnfpcb-iysfhi Nasal route 2 bottle (NEILMED (two) times SINUS RINSE daily. COMPLETE) pkdv pantoprazole Take 1 tablet 30 tablet 0 [...] total) by mouth every 12 (twelve) hours. losartan-hydroCHLORO Take 1 tablet 0 Discontinued thiazide (HYZAAR) by mouth daily. 8 50-12.5 mg per tablet amoxicillin-clavulan Take 1 tablet 20 tablet 0 06/25/2018 ate (AUGMENTIN) by mouth 2 8 875-125 mg per (two) times tablet daily for 10 days. acetaminophen-codein Take 1 tablet 30 tablet 0 06/25/2018 e (TYLENOL #3) by mouth every 8 300-30 mg per tablet 4 (four) hours as needed for up to 10 days. Max Daily Amount: 6 tablets amLODIPine (NORVASC) Take 1 tablet 30 tablet 0 06/25/2018 Discontinued 10 MG tablet (10 mg total) 8 by mouth daily for 30 days. hydrocortisone Take 1 tablet 20 tablet 0 06/25/2018 (CORTEF) 10 MG (10 mg total) 8 tablet by mouth 2 (two) times daily for 10 days. ondansetron Take 1 tablet 20 tablet 0 06/27/2018 (ZOFRAN-ODT) 4 MG (4 mg total) by 8 disintegrating mouth every 12 tablet (twelve) hours as needed for up to 7 days. 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 2017 Encounters Date Type Specialty Care Team Description 06/26/2018 - Hospital Encounter General Internal Cece, Acute intractable 06/27/2018 Medicine Antonino Flor, headache, unspecified headache type Kelsey Westbrook MD 06/24/2018 Surgery Alex Ruano ENDOSCOPIC MD CRANIOTOMY,REMOVAL [...] MD Mezrahi, Maria, MD 06/18/2018 Travel after 07/11/2017 Family History Medical History Relation Name Comments [...] Taken Blood Pressure 125/71 06/27/2018 12:09 PM BRANCH OFFICE ADMINISTRATOR Pulse 63 06/27/2018 12:09 PM BRANCH OFFICE ADMINISTRATOR Temperature 36.2 C (97.1 F) 06/27/2018 12:09 PM BRANCH OFFICE ADMINISTRATOR Respiratory Rate 18 06/27/2018 12:09 PM BRANCH OFFICE ADMINISTRATOR Oxygen Saturation 97% 06/27/2018 12:09 PM BRANCH OFFICE ADMINISTRATOR Inhaled Oxygen Concentration - - Weight 122.5 kg (270 lb) 06/18/2018 9:00 PM BRANCH OFFICE ADMINISTRATOR Height 162.6 cm (5' 4") 06/18/2018 9:00 PM BRANCH OFFICE ADMINISTRATOR Body Mass Index 46.35 06/18/2018 9:00 PM BRANCH OFFICE ADMINISTRATOR Plan of Treatment Not on file Implants Implanted Type Area Safety Deposit Supervisor Device Shelf Model / Identifier Expiration Serial / Date Lot Sealant Durasl Spine 5ml [id number] - [id number] Cement/Fi N/A: [employer] LIF[employer]CI [id number] / Implanted: Qty: 1 on 06/24/2018 by Alex Ruano MD ller/[place] [employer] / sive [id number] [facility] Full Strlprep 10ml [id number] - [id number] Cement/Fi N/A: FUNES: BIOSCI 11/18/2019 [id number] / Implanted: Qty: 1 on 06/24/2018 by Alex Ruano MD ller/[employer] / sive [id number] Graft Matrix Dura 1x3 [id number] - [id number] Neuro N/A: [employer] 02/20/2020 [id number] / Implanted: Qty: 1 on 06/24/2018 by Alex Ruano MD Head SURGICAL / NAVIGATION [id number] Procedures Procedure Name Priority Date/Time Associated Comments Diagnosis INTRAOPERATIVE PATH 06/29/2018 1:00 REPORT - SCAN PM BRANCH OFFICE ADMINISTRATOR RHYTHM STRIP - SCAN 06/29/2018 1:00 PM BRANCH OFFICE ADMINISTRATOR POCT-GLUCOSE METER Routine 06/27/2018 12:07 Results for this PM BRANCH OFFICE ADMINISTRATOR procedure are in the results section. POCT-GLUCOSE METER Routine 06/27/2018 7:41 Results for this AM BRANCH OFFICE ADMINISTRATOR procedure are in the results section. CBC W/PLT COUNT & AUTO Routine 06/27/2018 5:56 Results for this DIFFERENTIAL AM BRANCH OFFICE ADMINISTRATOR procedure are in the results section. BASIC METABOLIC PANEL Routine 06/27/2018 5:56 Results for this (7) AM BRANCH OFFICE ADMINISTRATOR procedure are in the results section. CBC W/PLT COUNT & AUTO Routine 06/27/2018 5:56 Results for this DIFFERENTIAL AM BRANCH OFFICE ADMINISTRATOR procedure are in the results section. CBC W/PLT COUNT & AUTO STAT 06/26/2018 11:18 Results for this DIFFERENTIAL PM BRANCH OFFICE ADMINISTRATOR procedure are in the results section. CBC W/PLT COUNT & AUTO STAT 06/26/2018 11:18 Results for this DIFFERENTIAL PM BRANCH OFFICE ADMINISTRATOR procedure are in the results section. BASIC METABOLIC PANEL STAT 06/26/2018 11:18 Results for this (7) PM BRANCH OFFICE ADMINISTRATOR procedure are in the results section. SODIUM, RANDOM URINE STAT 06/26/2018 11:11 Results for this PM BRANCH OFFICE ADMINISTRATOR procedure are in the results section. CT BRAIN WITHOUT IV STAT 06/26/2018 10:25 Results for this CONTRAST PM BRANCH OFFICE ADMINISTRATOR procedure are in the results section. POCT-GLUCOSE METER Routine 06/26/2018 9:01 Results for this PM BRANCH OFFICE ADMINISTRATOR procedure are in the results section. CBC W/PLT COUNT & AUTO Routine 06/26/2018 1:55 Results for this DIFFERENTIAL PM BRANCH OFFICE ADMINISTRATOR procedure are in the results section. BASIC METABOLIC PANEL Routine 06/26/2018 1:55 Results for this (7) PM BRANCH OFFICE ADMINISTRATOR procedure are in the results section. CBC W/PLT COUNT & AUTO Routine 06/26/2018 1:55 Results for this DIFFERENTIAL PM BRANCH OFFICE ADMINISTRATOR procedure are in the results section. POCT-GLUCOSE METER Routine 06/26/2018 1:33 Results for this PM BRANCH OFFICE ADMINISTRATOR procedure are in the results section. POCT-GLUCOSE METER Routine 06/26/2018 12:06 Results for this PM BRANCH OFFICE ADMINISTRATOR procedure are in the results section. POCT-GLUCOSE METER Routine 06/25/2018 4:10 Results for this PM BRANCH OFFICE ADMINISTRATOR procedure are in the results section. POCT-GLUCOSE METER Routine 06/25/2018 12:02 Results for this PM BRANCH OFFICE ADMINISTRATOR procedure are in the results section. POCT-GLUCOSE METER Routine 06/25/2018 8:02 Results for this AM BRANCH OFFICE ADMINISTRATOR procedure are in the results section. OSMOLALITY, URINE STAT 06/25/2018 4:23 Results for this AM BRANCH OFFICE ADMINISTRATOR procedure are in the results section. SPECIFIC GRAVITY, STAT 06/25/2018 4:23 Results for this URINE AM BRANCH OFFICE ADMINISTRATOR procedure are in the results section. POCT-GLUCOSE METER Routine 06/24/2018 9:56 Results for this PM BRANCH OFFICE ADMINISTRATOR procedure are in the results section. POCT-GLUCOSE METER Routine 06/24/2018 4:57 Results for this PM BRANCH OFFICE ADMINISTRATOR procedure are in the results section. BASIC METABOLIC PANEL STAT 06/24/2018 4:50 Results for this (7) PM BRANCH OFFICE ADMINISTRATOR procedure are in the results section. POCT-GLUCOSE METER Routine 06/24/2018 11:09 Results for this AM BRANCH OFFICE ADMINISTRATOR procedure are in the results section. POCT-GLUCOSE METER Routine 06/24/2018 9:38 Results for this AM BRANCH OFFICE ADMINISTRATOR procedure are in the results section. TISSUE EXAM AP Routine 06/24/2018 8:02 Results for this AM BRANCH OFFICE ADMINISTRATOR procedure are in the results section. ENDOSCOPIC SINUS 06/24/2018 7:00 Pituitary adenoma SURGERY,REPAIR CSF AM BRANCH OFFICE ADMINISTRATOR (HCC) [place] Special Needs (STEALTH NAVIGATION, LUMBAR DRAIN SET, LANDMARK CT SCAN ON ) TURBINECTOMY,NASAL 06/24/2018 7:00 AM BRANCH OFFICE ADMINISTRATOR Pituitary adenoma (HCC) Special Needs (STEALTH NAVIGATION, LUMBAR DRAIN SET, LANDMARK CT SCAN ON ) ENDOSCOPIC SINUS 06/24/2018 7:00 AM BRANCH OFFICE ADMINISTRATOR Pituitary adenoma SURGERY,ETHMOIDECTOMY W/ (HCC) SPHENOIDOTOMY Special Needs (STEALTH NAVIGATION, LUMBAR DRAIN SET, LANDMARK CT SCAN ON ) PROCEDURE W/ STEALTH 06/24/2018 7:00 AM BRANCH OFFICE ADMINISTRATOR Pituitary adenoma (HCC) Special Needs (STEALTH NAVIGATION, LUMBAR DRAIN SET, LANDMARK CT SCAN ON ) ENDOSCOPIC CRANIOTOMY,REMOVAL 06/24/2018 7:00 AM BRANCH OFFICE ADMINISTRATOR Pituitary adenoma ( HCC) TRANSSPHENOIDAL PITUITARY TUMOR Special Needs (STEALTH NAVIGATION, LUMBAR DRAIN SET, LANDMARK CT SCAN ON ) POCT-GLUCOSE METER Routine 06/24/2018 5:42 AM BRANCH OFFICE ADMINISTRATOR SCREEN, URINE STAT 06/24/2018 5:16 AM BRANCH OFFICE ADMINISTRATOR BASIC METABOLIC PANEL (7) Routine 06/24/2018 5:16 AM BRANCH OFFICE ADMINISTRATOR CBC W/PLT COUNT & AUTO Routine 06/24/2018 5:07 AM BRANCH OFFICE ADMINISTRATOR Results for this DIFFERENTIAL procedure are in the results section. PT/APTT Routine 06/24/2018 5:07 AM BRANCH OFFICE ADMINISTRATOR CBC W/PLT COUNT & AUTO Routine 06/24/2018 5:07 AM BRANCH OFFICE ADMINISTRATOR Results for this DIFFERENTIAL procedure are in the results section. POCT-GLUCOSE METER Routine 06/23/2018 9:21 PM BRANCH OFFICE ADMINISTRATOR POCT-GLUCOSE METER Routine 06/23/2018 4:31 PM BRANCH OFFICE ADMINISTRATOR BASIC METABOLIC PANEL (7) Routine 06/23/2018 4:13 PM BRANCH OFFICE ADMINISTRATOR POCT-GLUCOSE METER Routine 06/23/2018 8:30 AM BRANCH OFFICE ADMINISTRATOR POCT-GLUCOSE METER Routine 06/22/2018 11:34 PM BRANCH OFFICE ADMINISTRATOR POCT-GLUCOSE METER Routine 06/22/2018 8:21 PM BRANCH OFFICE ADMINISTRATOR POCT-GLUCOSE METER Routine 06/22/2018 5:07 PM BRANCH OFFICE ADMINISTRATOR POCT-GLUCOSE METER Routine 06/22/2018 11:49 AM BRANCH OFFICE ADMINISTRATOR POCT-GLUCOSE METER Routine 06/22/2018 8:30 AM BRANCH OFFICE ADMINISTRATOR POCT-GLUCOSE METER Routine 06/21/2018 9:09 PM BRANCH OFFICE ADMINISTRATOR POCT-GLUCOSE METER Routine 06/21/2018 5:20 PM BRANCH OFFICE ADMINISTRATOR POCT-GLUCOSE METER Routine 06/21/2018 11:06 AM BRANCH OFFICE ADMINISTRATOR ECHOCARDIOGRAM REPORT - SCAN 06/21/2018 9:21 AM BRANCH OFFICE ADMINISTRATOR FOLLICLE STIMULATING HORMONE Routine 06/21/2018 9:11 AM BRANCH OFFICE ADMINISTRATOR Results for this (FSH) procedure are in the results section. INSULIN-LIKE GROWTH FACTOR Routine 06/21/2018 9:11 AM BRANCH OFFICE ADMINISTRATOR ACTH Routine 06/21/2018 9:11 AM BRANCH OFFICE ADMINISTRATOR CORTISOL Routine 06/21/2018 9:11 AM BRANCH OFFICE ADMINISTRATOR POCT-GLUCOSE METER Routine 06/21/2018 7:26 AM BRANCH OFFICE ADMINISTRATOR CT BRAIN WITHOUT IV CONTRAST TERI 06/20/2018 9:48 PM BRANCH OFFICE ADMINISTRATOR POCT-GLUCOSE METER Routine 06/20/2018 8:48 PM BRANCH OFFICE ADMINISTRATOR 2D ECHO W/ DOPPLER Routine 06/20/2018 6:40 PM BRANCH OFFICE ADMINISTRATOR Results for this (CW/PW/COLOR) procedure are in the results section. POCT-GLUCOSE METER Routine 06/20/2018 4:48 PM BRANCH OFFICE ADMINISTRATOR POCT-GLUCOSE METER Routine 06/20/2018 1:06 PM BRANCH OFFICE ADMINISTRATOR POCT-GLUCOSE METER Routine 06/20/2018 7:21 AM BRANCH OFFICE ADMINISTRATOR POCT-GLUCOSE METER Routine 06/20/2018 5:22 AM BRANCH OFFICE ADMINISTRATOR BASIC METABOLIC PANEL (7) STAT 06/20/2018 5:08 AM BRANCH OFFICE ADMINISTRATOR POCT-GLUCOSE METER Routine 06/20/2018 12:38 AM BRANCH OFFICE ADMINISTRATOR CT/CTA CAROTID TERI 06/19/2018 10:46 PM BRANCH OFFICE ADMINISTRATOR CT/CTA BRAIN TERI 06/19/2018 10:46 PM BRANCH OFFICE ADMINISTRATOR POCT-GLUCOSE METER Routine 06/19/2018 9:19 PM BRANCH OFFICE ADMINISTRATOR POCT-GLUCOSE METER Routine 06/19/2018 5:06 PM BRANCH OFFICE ADMINISTRATOR POCT-GLUCOSE METER Routine 06/19/2018 3:03 PM BRANCH OFFICE ADMINISTRATOR POCT-GLUCOSE METER Routine 06/19/2018 12:27 PM BRANCH OFFICE ADMINISTRATOR SCREEN, URINE Routine 06/19/2018 11:54 AM BRANCH OFFICE ADMINISTRATOR OSMOLALITY, URINE Routine 06/19/2018 11:54 AM BRANCH OFFICE ADMINISTRATOR RAPID DRUG SCREEN, URINE Routine 06/19/2018 11:54 AM BRANCH OFFICE ADMINISTRATOR CBC W/PLT COUNT & AUTO Routine 06/19/2018 11:49 AM BRANCH OFFICE ADMINISTRATOR Results for this DIFFERENTIAL procedure are in the results section. INSULIN-LIKE GROWTH FACTOR Routine 06/19/2018 11:49 AM BRANCH OFFICE ADMINISTRATOR OSMOLALITY, SERUM Routine 06/19/2018 11:49 AM BRANCH OFFICE ADMINISTRATOR T4, FREE Routine 06/19/2018 11:49 AM BRANCH OFFICE ADMINISTRATOR C-REACTIVE PROTEIN Routine 06/19/2018 11:49 AM BRANCH OFFICE ADMINISTRATOR HIV-1 ANTIGEN WITH HIV-1/2 Routine 06/19/2018 11:49 AM BRANCH OFFICE ADMINISTRATOR Results for this ANTIBODY procedure are in the results section. RPR Routine 06/19/2018 11:49 AM BRANCH OFFICE ADMINISTRATOR CBC W/PLT COUNT & AUTO Routine 06/19/2018 11:49 AM BRANCH OFFICE ADMINISTRATOR Results for this DIFFERENTIAL procedure are in the results section. POCT-GLUCOSE METER Routine 06/19/2018 9:25 AM BRANCH OFFICE ADMINISTRATOR POCT-GLUCOSE METER Routine 06/19/2018 5:51 AM BRANCH OFFICE ADMINISTRATOR GROWTH HORMONE Routine 06/19/2018 3:49 AM BRANCH OFFICE ADMINISTRATOR LUTEINIZING HORMONE (LH) Routine 06/19/2018 3:49 AM BRANCH OFFICE ADMINISTRATOR ACTH Routine 06/19/2018 3:49 AM BRANCH OFFICE ADMINISTRATOR PROLACTIN Routine 06/19/2018 3:49 AM BRANCH OFFICE ADMINISTRATOR MR BRAIN WITHOUT & WITH IV STAT 06/19/2018 2:25 AM BRANCH OFFICE ADMINISTRATOR Results for this CONTRAST procedure are in the results section. HEMOGLOBIN A1C Routine 06/19/2018 12:39 AM BRANCH OFFICE ADMINISTRATOR TSH/FREE T4 IF INDICATED Routine 06/18/2018 11:32 PM BRANCH OFFICE ADMINISTRATOR BASIC METABOLIC PANEL (7) STAT 06/18/2018 11:32 PM BRANCH OFFICE ADMINISTRATOR URINALYSIS W/ REFLEX URINE Routine 06/18/2018 10:27 PM BRANCH OFFICE ADMINISTRATOR Results for this CULTURE procedure are in the results section. after 07/11/2017 Results INTRAOPERATIVE PATH REPORT - SCAN (06/29/2018 1:00 PM BRANCH OFFICE ADMINISTRATOR) Narrative Performed At RHYTHM STRIP - SCAN (06/29/2018 1:00 PM BRANCH OFFICE ADMINISTRATOR) Narrative Performed At POC-Glucose meter (06/27/2018 12:07 PM BRANCH OFFICE ADMINISTRATOR)Only the most recent of37 resultswithin the time period is included. POC-Glucose Meter 141 (H)Comment: TESTED AT 70 - 110 mg/dL [address] [address] Specimen Blood Performing Organization Address City/State/Zipcode Phone Number [address] [address] CENTER CBC with platelet count + automated diff (06/27/2018 5:56 AM BRANCH OFFICE ADMINISTRATOR)Only the most recent of5 resultswithin the time period is included. WBC 8.7 3.5 - 10.5 K/L [facility] RBC 4.82 3.93 - 5.22 M/L [facility] Hemoglobin 13.2 11.2 - 15.7 GM/DL [facility] Hematocrit 40.8 34.1 - 44.9 % [facility] MCV 84.6 79.4 - 94.8 fL [facility] MCH 27.4 25.6 - 32.2 pg [facility] MCHC 32.4 32.2 - 35.5 GM/DL [facility] RDW 13.2 11.7 - 14.4 % [facility] Platelets 233 150 - 450 K/CU MM [facility] MPV 11.5 9.4 - 12.3 fL [facility] nRBC 0 0 - 0 /100 WBC [facility] % Neutros 65 % [facility] % Lymphs 24 % [facility] % Monos 8 % [facility] % Eos 2 % [facility] % Baso 0 % [facility] # Neutros 5.65 1.56 - 6.13 K/L [facility] # Lymphs 2.07 1.18 - 3.74 K/L [facility] # Monos 0.70 (H) 0.24 - 0.36 K/L [facility] # Eos 0.16 0.04 - 0.36 K/L [facility] # Baso 0.02 0.01 - 0.08 K/L [facility] Immature Granulocytes-Relative 1 0 - 1 % [facility] Specimen Blood Performing Organization Address City/State/Zipcode Phone Number [facility] [address] [place] [address] [phone] CENTER Basic Metabolic Panel (06/27/2018 5:56 AM BRANCH OFFICE ADMINISTRATOR)Only the most recent of8 resultswithin the time period is included. Sodium 139 136 - 145 meq/L [facility] Potassium 4.1 3.5 - 5.1 meq/L [facility] Chloride 105 98 - 107 meq/L [facility] CO2 28 22 - 29 meq/L [facility] BUN 11 7 - 21 mg/dL [facility] Creatinine 0.69 0.57 - 1.25 mg/dL [facility] Glucose 163 (H) 70 - 105 mg/dL [facility] Calcium 8.6 8.4 - 10.2 mg/dL [facility] EGFR 91Comment: ESTIMATED GFR IS mL/min/1.73 sq m [facility] NOT ACCURATE CREATININE [facility] CLEARANCE IN PREDICTING GLOMERULAR FILTRATION RATE. ESTIMATED GFR IS NOT APPLICABLE FOR DIALYSIS PATIENTS. Specimen Blood Performing Organization Address City/[facility]/Zipcode Phone Number [address] [address] [place] Sodium, random urine (06/26/2018 11:11 PM BRANCH OFFICE ADMINISTRATOR) Sodium Urine <20 meq/L [facility] Specimen Urine - Urine, Voided Narrative Performed At Reference Range: No Normals [facility] Performing Organization Address City/[facility] Phone Number [phone] [place] CT brain without IV contrast (06/26/2018 10:25 PM BRANCH OFFICE ADMINISTRATOR)Only the most recent of2 resultswithin the time period is included. Narrative Performed At FINAL REPORT [facility] CT Head without contrast CLINICAL HISTORY: concern [...] MD Report Verified Date/Time:06/26/2018 22:57:28 Reading Location: [facility] C013T Transitional Reading Room Procedure Note Interface, External Ris In - 06/26/2018 10:59 PM BRANCH OFFICE ADMINISTRATOR FINAL REPORT CT Head without contrast CLINICAL [...] Report Verified Date/Time: 06/26/2018 22:57:28 Reading Location: [facility] B1 C013T Transitional Reading Room Performing Organization Address City/State/Zipcode Phone Number GE RIS Specific gravity, urine (06/25/2018 4:23 AM BRANCH OFFICE ADMINISTRATOR) Specific [place], UA 1.010 1.001 - 1.035 [facility] Specimen Urine - Urine, Fonseca Performing Organization Address City/[facility] Phone Number [address] [phone] CENTER Osmolality, urine (06/25/2018 4:23 AM BRANCH OFFICE ADMINISTRATOR)Only the most recent of2 resultswithin the time period is included. Osmolality, Ur 340 40-1,400 mOsm/kg [facility] Specimen Urine - Urine, Fonseca Performing Organization Address [facility] Phone Number [address] [address] [phone] [place] Tissue Exam (06/24/2018 8:02 AM BRANCH OFFICE ADMINISTRATOR) Case Report Surgical Pathology Report Case: [id number] [facility] Authorizing Provider:Alex Ruano MD Collected: 06/24/[address] [place] [address] MEDICAL Ordering Location: [address] Received: 06/24/2018 08 CENTER Service Pathologist: Chon Caraballo MD Specimens: A) - Tumor, pituitary tumor B) - Tumor, pituitary tumor DIAGNOSIS A.PITUITARY GLAND, TRANSSPHENOIDAL HYPOPHYSECTOMY: [facility] NULL CELL ADENOMA INVADING RESPIRATORY MUCOSA [facility] B. PITUITARY GLAND, TRANSSPHENOIDAL HYPOPHYSECTOMY: NULL CELL ADENOMA ENTRAPPED ADENOHYPOPHYSIS Signing Pathologist Direct Phone Line: [phone] COMMENT Immunoperoxidase stains [facility] performed on the [facility] specimen show that the tumor CENTER has no staining for growth hormone, LH, FSH, TSH, prolactin, or ACTH. 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 The MIB-1 proliferation index is less than 1%. CPT Code(s) 98697 x 2; 86064; 58807; 10305 [facility] x 6; [address] [facility] CLINICAL HISTORY Pituitary adenoma [facility] SPECIMEN SOURCE A. Pituitary tumor; B. [facility] Pituitary tumor [facility] GROSS DESCRIPTION A. The specimen is received fresh for frozen section diagnosis and labeled "pituitary tumor" and consists of a single fragment of tariq -red soft tissue measuring 0.5 cm in greatest dimension submitted ent [facility] for frozen section diagnosis, and touch preps are performed. CG/ew [facility] B. Received fresh labeled "tumor", description "pituitary tumor" is a 2.0 x 1.0 x 0.3 cm aggregate of pink-tariq to hannah-white rubbery friable soft tissue. The specimen is entirely submitted in cassette B1. DB/pl INTRAOPERATIVE FROZEN SECTION DIAGNOSIS, PITUITARY TUMOR: [facility] CONSULTATION ADENOMA EXTENDING INTO RESPIRATORY MUCOSA PER DR. CARABALLO [facility] MICROSCOPIC DESCRIPTION Performed on A and B [facility] SPECIAL STUDIES The interpretation of this case included the use of immunohistochemistry or special stains. [facility] Immunohistochemistry technical testing was performed at [facility], Pathology Laboratory where it was developed [...] Tumor Performing Organization Address City/State/Zipcode Phone Number [address] [address] CENTER Screen, urine (06/24/2018 5:16 AM BRANCH OFFICE ADMINISTRATOR)Only the most recent of2 resultswithin the time period is included. Preg Test, Ur Negative [facility] Specimen Urine Performing Organization Address City/State/Zipcode Phone Number [place] [phone] [place] [address] [place] PT/aPTT (06/24/2018 5:07 AM BRANCH OFFICE ADMINISTRATOR) Protime 13.8 11.7 - 14.7 seconds [facility] INR 1.1 <=5.9 [facility] PTT 32.0 22.5 - 36.0 seconds [facility] Specimen Blood Narrative Performed At RECOMMENDED COUMADIN/WARFARIN INR THERAPY [facility] RANGES STANDARD DOSE: 2.0 - 3.0 Includes: PROPHYLAXIS for venous thrombosis, systemic embolization; TREATMENT for venous thrombosis and/or pulmonary embolus. HIGH RISK: Target INR is 2.5-3.5 for patients with mechanical heart valves. Performing Organization Address City/State/Zipcode Phone Number [address] [address] [place] ECHOCARDIOGRAM REPORT - SCAN (06/21/2018 9:21 AM BRANCH OFFICE ADMINISTRATOR) Narrative Performed At Cortisol (06/21/2018 9:11 AM BRANCH OFFICE ADMINISTRATOR) Cortisol, Total 4.7 3.7 - 19.4 ug/dL [facility] Specimen Blood - Arm, Right Performing Organization Address City/State/Zipcode Phone Number [place] [phone] [place] [address] [place] Insulin-like growth factor (06/21/2018 9:11 AM BRANCH OFFICE ADMINISTRATOR)Only the most recent of2 resultswithin the time period is included. Igf-1(Somatomedin-C) 36 (L) 52 - 328 ng/mL [facility] Z-Score Male: DNR [facility] Z-Score Female: -2.6 (L) -2.0 - 2.0 SD [facility] Comment: [facility]POR[facility] This test was developed and its analytical performance characteristics have been determined by [employer] [facility]. It has not been cleared or approved by FDA. This assay has been validated pursuant to the CLIA regulations and is used for clinical purposes. Specimen Blood - Arm, Right Narrative Performed At Performing Lab [facility] [employer] [place] [address] [address] Sixto Rodrigez MD, PhD, ANABELL Performing Organization Address [facility] [place] [address] [facility] [address] [place] [address] [employer] [facility] ACTH (06/21/2018 9:11 AM BRANCH OFFICE ADMINISTRATOR)Only the most recent of2 resultswithin the time period is included. ACTH 17 6 - 50 pg/mL [facility] Comment: Reference range applies only to the specimens collected between 7am-10am. Specimen Blood - Arm, Right Narrative Performed At Performing Lab [facility] [employer] [address] Sixto Rodrigez MD, PhD, ANABELL Performing Organization Address [facility] [place] [address] [facility] [place] [address] [employer] [facility] Follicle stimulating hormone (FSH) (06/21/2018 9:11 AM BRANCH OFFICE ADMINISTRATOR) Fsh 2.3 mIU/mL [facility] Comment: Adult female reference ranges for FSH: Follicular Phase: 2.5- 10.2 mIU/mL Mid-Cycle:3.1- 17.7 mIU/mL Luteal Phase: 1.5-9.1 mIU/mL Postmenopausal:23.0-116.3 mIU/mL Children (<18 Years Old): FSH reference ranges established on post-pubertal patient population. Reference range not established for pre-pubertal patients using this assay. For pre-pubertal patients, the [employer] FSH, Pediatrics assay is recommended (test code 77238). Specimen Blood - Arm, Right Narrative Performed At Performing Lab [facility] Fashion To [address] [address] Sixto Rodrigez MD, PhD, ANABELL Performing Organization Address [facility] [place] [address] [address] [place] [address] [employer] [facility] 2D Echo W/Doppler(CW/PW/Color) (06/20/2018 6:40 PM BRANCH OFFICE ADMINISTRATOR) Ejection Fraction [facility] Narrative Performed At Transthoracic Echocardiography Report (TTE) [facility] Demographics Patient NameVY STOUT Date of Study06/20/2018 Female Visit [id number] Unknown Room [id number] Number Date of 1970Referring Abrahan Mireles MD 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..] TR Gradient: 18.02 mmHg Performing Organization Address City[facility]State[facility] Phone Number [facility] CTA carotid (06/19/2018 10:46 PM BRANCH OFFICE ADMINISTRATOR) Narrative Performed At FINAL REPORT [employer] [facility] CLINICAL HISTORY: Stroke TECHNIQUE: Initially, noncontrast [...] MD Report Verified Date/Time:06/20/2018 01:03:44 Reading Location: [address] Transitional Reading Room Procedure Note Interface, External Ris In - 06/20/2018 1:05 AM BRANCH OFFICE ADMINISTRATOR FINAL REPORT CLINICAL HISTORY: Stroke TECHNIQUE: Initially, [...] Report Verified Date/Time: 06/20/2018 01:03:44 Reading Location: [address] Transitional Reading Room Performing Organization Address City/State/Zipcode Phone Number [employer] CTA brain (06/19/2018 10:46 PM BRANCH OFFICE ADMINISTRATOR) Narrative Performed At FINAL REPORT [employer] [facility] CLINICAL HISTORY: Stroke TECHNIQUE: Initially, noncontrast [...] MD Report Verified Date/Time:06/20/2018 01:03:44 Reading Location: [address] Transitional Reading Room Procedure Note Interface, External Ris In - 06/20/2018 1:05 AM BRANCH OFFICE ADMINISTRATOR FINAL REPORT CLINICAL HISTORY: Stroke TECHNIQUE: Initially, [...] Report Verified Date/Time: 06/20/2018 01:03:44 Reading Location: [address] Transitional Reading Room Performing Organization Address City/State/Zipcode Phone Number [facility] Rapid drug screen, urine (06/19/2018 11:54 AM BRANCH OFFICE ADMINISTRATOR) Barbiturate Screen Negative Negative [facility] Benzodiazepine Screen Negative Negative [facility] Cocaine (Metab.) Screen Negative Negative [facility] Methadone Screen Negative Negative [facility] Opiate Screen Negative Negative [facility] Cannabinoid Screen Negative Negative [facility] Amph/Methamph Screen Negative Negative [facility] Phencyclidine Screen Negative Negative [facility] Oxycodone Screen Negative Negative [facility] Specimen Urine - Urine, Voided Narrative Performed At [employer] [facility] CONC. Cocaine 300 ng/mL Gmyxeirrlbl52 ng/mL Qwaholrmqtviwz732 ng/mL Barbiturate 200 ng/mL Duwhqhomfjunt98 ng/mL Funsbd775 ng/mL Methadone 300 ng/mL Amphetamine/ 1000 ng/mL Methamphetamine Oxycodone 300 ng/mL This assay provides an unconfirmed qualitative test result for the clinical management of patients in emergency situations. Chain of custody not maintained. Some gkhs-koc-eooaqwv medications, as well as adulterants, may cause inaccurate results. Clinical correlation should be applied. A more comprehensive drug screen or confirmation of a detected drug may be performed upon request. Performing Organization Address [facility] Phone Number [address] [address] [place] HIV-1 Antigen with HIV-1/2 Antibody (06/19/2018 11:49 AM BRANCH OFFICE ADMINISTRATOR) HIV-1 Antigen with HIV 1&2 NON-REACTIVE Nonreactive [facility] Specimen Blood - Arm, Left Performing Organization Address [facility] Phone Number [address] [address] [place] C-Reactive Protein (06/19/2018 11:49 AM BRANCH OFFICE ADMINISTRATOR) CRP 0.81 (H) 0.00 - 0.50 mg/dL [facility] Specimen Blood - Arm, Left Performing Organization Address [facility] Phone Number [address] [address] [place] RPR (06/19/2018 11:49 AM BRANCH OFFICE ADMINISTRATOR) RPR Nonreactive Nonreactive [facility] Specimen Blood - Arm, Left Performing Organization Address [facility] Phone Number [address] [address] [phone] CENTER T4, free (06/19/2018 11:49 AM BRANCH OFFICE ADMINISTRATOR) Free T4 0.89 0.70 - 1.48 ng/dL [facility] Specimen Blood - Arm, Left Performing Organization Address [facility]/[place] [address] [phone] CENTER Osmolality, serum (06/19/2018 11:49 AM BRANCH OFFICE ADMINISTRATOR) Osmolality Serum 310 (H) 275 - 295 mOsm/kg [facility] Specimen Blood - Arm, Left Performing Organization Address [facility] Phone Number [address] [phone] CENTER Prolactin (06/19/2018 3:49 AM BRANCH OFFICE ADMINISTRATOR) Prolactin 23.34 5.18 - 26.53 ng/mL [facility] Specimen Blood Performing Organization Address [facility] Phone Number [address] [phone] [place] Growth hormone (06/19/2018 3:49 AM BRANCH OFFICE ADMINISTRATOR) Growth Hormone <0.1 < OR=7.1 ng/mL [facility] [...] Guideline. J Clin Endocrinol Metab 2014; 99: 2247-1634]. Using GH stimulation testing, the following result at any point in the timed sequence makes GH deficiency unlikely: Adults (> or=20 years): Insulin Hypoglycemia > or=5.1 ng/mL Arginine/GHRH> or=4.1 ng/mL Glucagon > or=3.0 ng/mL Children (<20 years): All Stimulation Tests> or=10.0 ng/mL Specimen Blood Narrative Performed At Performing Lab [facility] [address] [address] Sixto Rodrigez MD, PhD, ANABELL Performing Organization Address [facility] Phone [place] [address] [place] [address] Luteinizing hormone (LH) (06/19/2018 3:49 AM BRANCH OFFICE ADMINISTRATOR) LH, Serum 0.2 mIU/mL [place] Comment: Adult Female Reference Ranges for LH: Follicular Phase:1.9-12.5 mIU/mL Mid-Cycle Peak:8.7-76.3 mIU/mL Luteal Phase:0.5-16.9 mIU/mL Postmenopausal: 10.0-54.7 mIU/mL Children (<18 Years Old): LH reference ranges established on post-pubertal patient population. Reference range not established for pre-pubertal patients using this assay. For pre-pubertal patients, the [employer] LH, Pediatric assay is recommended (order code 60934). Specimen Blood Narrative Performed At Performing Lab [facility] [address] [address] Sixto Rodrigez MD, PhD, ANABELL Performing Organization Address [facility] [place] [address] [place] [address] MR brain without & with IV contrast (06/19/2018 2:25 AM BRANCH OFFICE ADMINISTRATOR) Narrative Performed At FINAL REPORT [employer] MRI brain with and without contrast Comparison:None. 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 Phone Number [address] [address] [phone] CENTER TSH/Free T4 If Indicated (06/18/2018 11:32 PM BRANCH OFFICE ADMINISTRATOR) TSH 0.41 0.35 - 4.94 uIU/mL [facility] Specimen Blood Performing Organization Address [facility] Phone Number [address] [address] CENTER Urinalysis w/Microscopic + Reflex to Culture (06/18/2018 10:27 PM BRANCH OFFICE ADMINISTRATOR) Color, UA Yellow [facility] Clarity, UA Clear [facility] Specific [place], UA 1.011 1.001 - 1.035 [facility] pH, UA 5.0 5.0 - 8.0 [facility] Protein, UA Negative Negative [facility] Glucose, UA >1000 mg/dL (A) Negative [facility] Ketones, UA 20 mg/dL (A) Negative [facility] Bilirubin, UA Negative Negative [facility] Blood, UA Negative Negative [facility] Nitrite, UA Negative Negative [facility] Leukocytes, UA Negative Negative [facility] Urobilinogen, UA 0.2 0.2 - 1.0 mg/dL [facility] RBC, UA <1 /HPF [facility] WBC, UA <1 /HPF [facility] Squam Epithel, UA <1 /HPF [facility] Specimen Source [facility] Specimen Urine - Urine, Clean Catch Performing Organization Address City/State/Zipcode Phone Number [facility] [address] [place] [address] CENTER after 07/11/2017 Insurance Payer Benefit Plan / Subscriber ID Type Phone Address Group [employer]UE [employer]OSS/[employer]UE [employer] OS xxxxxxxxxxxx PPO [phone] [address] SHIELD POS/PPO/[place] [address] (Home) [address] [place] [phone] Advance Directives Patient has advance care planning documents, and code status on file. For more information, please contact:[address] [phone] Code Status Date Activated Date Inactivated Comments Full Code 06/26/2018 1:38 PM This code status was determined by: Patient Full Code 06/18/2018 8:39 PM 06/26/2018 11:54 AM This code status was determined by: Patient
--- OUTSIDE RECORDS SUMMARY | 2018-07-12 19:05 | XMS REPORT ---
[...] Status Dosage System Date Date Atorvastatin Calcium [facility] [id number] 10 MG Oral Active TAKE 1 TABLET BY MOUTH AT BEDTIME. ProAir HFA [facility] [id number] 108 (90 Base) Active USE 1-2 MCG/ACT PUFFS BY Inhalation MOUTH EVERY 4-6 HOURS Levothyroxine Sodium ND 86055004829 88 MCG Oral Active TAKE 1 TABLET BY MOUTH EVERY MORNING Valsartan-Hydrochlor ND 52710052587 80-12.5 MG Active TAKE 1 othiazide Oral TABLET BY MOUTH EVERY DAY Benzonatate ND 77846312481 200 MG Oral Active TAKE ONE CAPSULE BY MOUTH 3 TIMES A DAY NEEDED FOR COUGH MethylPREDNISolone ND 13368903376 4 MG Oral Active TAKE 6 TABLETS ON DAY 1 DIRECTED ON PACKAGE AND DECREASE BY 1 TAB EACH DAY FOR A TOTAL OF 6 DAYS GlyBURIDE ND 18763026090 5 MG Orally Iraida Active 1 tablet Once a day 2017 breakfast or the first main meal of the day MetFORMIN HCl ER ND 41364757342 750 MG Oral Active TAKE 1 TABLET BY MOUTH 2 TIMES DAILY BEFORE BREAKFAST AND DINNER. Results No Known Results Summary Purpose eClinicalWorks Submission
--- OUTSIDE RECORDS SUMMARY | 2018-07-12 19:05 | XMS REPORT ---
[...] End Status Dosage System Date Date Diflucan [facility] 76049394049 150 MG Orally Feb 20Feb Active 1 tablet Once a day 2017 Nitrofurantoin ND 04814191200 100 MG Orally Feb 20Feb Active 1 capsule Macrocrystal BID 2017 12, with food 2018 or milk GlyBURIDE ND 64136077613 5 MG Orally January 21, Active 1 tablet Once a day 2017 with breakfast or the first main meal of the day Levothyroxine ND 31149634117 88 MCG Oral Active TAKE 1 Sodium TABLET BY MOUTH EVERY MORNING Losartan ND 27874723397 50-12.5 MG February 12, Active 1 tablet Potassium-HCTZ Orally Once a 2018 day Valsartan-Hydroch ND 36521919089 80-12.5 MG Oral Active TAKE 1 lorothiazide TABLET BY MOUTH EVERY DAY Results Name Result Date Reference Range Unit Abnormality Flag THINPREP TIS PAP AND HPV mRNA E6/E7, CHLAMYDIA/N.GONORRHOEAE URINALYSIS AUTO W/O SCOPE (28296) ----PROTEIN N [id number] ----pH 5.5 20180220 ----NIT P [id number] ----CONCEPCION 1+ [id number] ----URO 1.0 [id number] ----SPECIFIC GRAVITY 1.015 20180220 ----BLO TR [id number] ----BILIRUBIN N [id number] ----KETONES N [id number] ----GLUCOSE N [id number] Summary Purpose eClinicalWorks Submission
--- OUTSIDE RECORDS SUMMARY | 2018-07-12 19:05 | XMS REPORT ---
[...] Dosage System Date Losartan [facility] 14589621666 50-12.5 MG February 12, Active 1 tablet Potassium-HCTZ Orally Once a 2017 day Results No Known Results Summary Purpose eClinicalWorks Submission
--- OUTSIDE RECORDS SUMMARY | 2018-07-12 19:05 | XMS REPORT ---
:1970 Author Organization eClinicalWorks Care Team Providers Name Role Phone Vermillion, Neeru Provider Role Unavailable Allergies No Known [...]
--- OUTSIDE RECORDS SUMMARY | 2018-07-12 19:05 | XMS REPORT ---
:1970 Author Organization [facility] Address [address] [place] [address] [address] [place] [address] Care Team Providers Name Role Phone DAJUAN GEORGE Unavailable Unavailable MITCHELL DOBSON Unavailable Unavailable Problems This patient has no known problems. Allergies, Adverse Reactions, Alerts This patient has no known allergies or adverse reactions. Medications This patient has no known medications. Results Test Description Test Time Test Comments Text Results Atomic Results Result Comments TISSUE EXAM 2018-06-28 08:38:00 Surgical Pathology Report Case: [id number] Authorizing Provider: Alex Ruano MD Collected: 06/24/2018 08 Ordering Location: [address] Received: 06/24/2018 0809 Service Pathologist: Chon Andino MD Specimens: A) - Tumor, pituitary tumor B) - Tumor, pituitary tumor A.PITUITARY GLAND, TRANSSPHENOIDAL 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 PITUITARY GLAND, TRANSSPHENOIDAL HYPOPHYSECTOMY:NULL CELL ADENOMAENTRAPPED ADENOHYPOPHYSIS Signing Pathologist Direct Phone Line: [phone] signed by Chon Andino MD on 06/28/2018 at 8:38 AMImmunoperoxidase stains performed on the second specimen show that the tumor has no staining for growth hormone, LH, FSH, TSH, prolactin, or ACTH. 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 The MIB-1 proliferation index is less than 1%. 38446 x 2; 67017; 97435; 06531 x 6; 40936Fskjqzvpm adenoma A. Pituitary tumor; B. Pituitary tumorA. The specimen is received fresh for frozen section diagnosis and labeled "pituitary tumor" and consists of a single fragment of tariq-red soft tissue measuring 0.5 cm in greatest dimension submitted entirely for frozen section diagnosis, and touch preps are performed. CG/ew B. Received fresh labeled "tumor", description "pituitary tumor" is a 2.0 x 1.0 x 0.3 cm aggregate of pink-tariq to hannah-white rubbery friable soft tissue. The specimen is entirely submitted in cassette B1. CAMRON/Jeff SECTION DIAGNOSIS, PITUITARY TUMOR: ADENOMA EXTENDING INTO RESPIRATORY MUCOSA PER DR. Henleyformed on A and BThe interpretation of this case included the use of immunohistochemistry or special stains. Immunohistochemistry technical testing was performed at [facility], Pathology Laboratory where it was developed [...] (BEAKER) (test 141 mg/dL 70-110 TESTED AT [address] nect=5194) [facility] [address] POCT-GLUCOSE [id number] 12:06:00 Test Item Value Reference Range Comments POC-GLUCOSE METER (BEAKER) 217 mg/dL 70-110 TESTED AT [address] (test dbki=9578) [facility] [address] BASIC METABOLIC [id number] 07:18:00 Test Item Value Reference Range Comments SODIUM (BEAKER) (test 139 meq/L 136-145 uljd=091) POTASSIUM (BEAKER) (test 4.1 meq/L 3.5-5.1 ygcj=564) CHLORIDE (BEAKER) (test 105 meq/L 98-107 oicl=186) CO2 (BEAKER) (test 28 meq/L 22-29 oysm=306) BLOOD UREA NITROGEN 11 mg/dL 7-21 (BEAKER) (test amun=002) CREATININE (BEAKER) (test 0.69 mg/dL 0.57-1.25 jcoq=180) GLUCOSE RANDOM (BEAKER) 163 mg/dL 70-105 (test kygf=831) CALCIUM (BEAKER) (test 8.6 mg/dL 8.4-10.2 tkvk=214) EGFR (BEAKER) (test 91 mL/min/1.73 sq m ESTIMATED GFR IS NOT njqk=7243) ACCURATE CREATININE CLEARANCE IN PREDICTING GLOMERULAR FILTRATION RATE. ESTIMATED GFR IS NOT APPLICABLE FOR DIALYSIS PATIENTS. CBC W/PLT COUNT & AUTO [id number] 06:49:00 Test Item Value Reference Range Comments WHITE BLOOD CELL COUNT (BEAKER) (test wzek=365) 8.7 K/ L 3.5-10.5 RED BLOOD CELL COUNT (BEAKER) (test tfpv=651) 4.82 M/ L 3.93-5.22 HEMOGLOBIN (BEAKER) (test izuf=526) 13.2 GM/DL 11.2-15.7 HEMATOCRIT (BEAKER) (test ohiy=793) 40.8 % 34.1-44.9 MEAN CORPUSCULAR VOLUME (BEAKER) (test etws=731) 84.6 fL 79.4-94.8 MEAN CORPUSCULAR HEMOGLOBIN (BEAKER) (test 27.4 pg 25.6-32.2 swkr=546) MEAN CORPUSCULAR HEMOGLOBIN CONC (BEAKER) (test 32.4 GM/DL 32.2-35.5 aifd=959) RED CELL DISTRIBUTION WIDTH (BEAKER) (test 13.2 % 11.7-14.4 mfgt=194) PLATELET COUNT (BEAKER) (test pgfa=739) 233 K/CU MM 150-450 MEAN PLATELET VOLUME (BEAKER) (test ijiz=217) 11.5 fL 9.4-12.3 NUCLEATED RED BLOOD CELLS (BEAKER) (test 0 /100 WBC 0-0 zjpi=625) NEUTROPHILS RELATIVE PERCENT (BEAKER) (test 65 % nwqx=153) LYMPHOCYTES RELATIVE PERCENT (BEAKER) (test 24 % yqth=955) MONOCYTES RELATIVE PERCENT (BEAKER) (test 8 % jhaz=761) EOSINOPHILS RELATIVE PERCENT (BEAKER) (test 2 % qhzc=682) BASOPHILS RELATIVE PERCENT (BEAKER) (test 0 % ywpb=489) NEUTROPHILS ABSOLUTE COUNT (BEAKER) (test 5.65 K/ L 1.56-6.13 emer=248) LYMPHOCYTES ABSOLUTE COUNT (BEAKER) (test 2.07 K/ L 1.18-3.74 krjq=366) MONOCYTES ABSOLUTE COUNT (BEAKER) (test 0.70 K/ L 0.24-0.36 cbpv=413) EOSINOPHILS ABSOLUTE COUNT (BEAKER) (test 0.16 K/ L 0.04-0.36 zgld=134) BASOPHILS ABSOLUTE COUNT (BEAKER) (test 0.02 K/ L 0.01-0.08 lmhy=099) IMMATURE GRANULOCYTES-RELATIVE PERCENT (BEAKER) 1 % 0-1 (test qxro=6442) BASIC METABOLIC [id number] 23:52:00 Test Item Value Reference Range Comments SODIUM (BEAKER) (test 139 meq/L 136-145 edra=585) POTASSIUM (BEAKER) (test 4.0 meq/L 3.5-5.1 Specimen slightly ibbg=822) hemolyzed CHLORIDE (BEAKER) (test 103 meq/L 98-107 nshn=592) CO2 (BEAKER) (test 28 meq/L 22-29 pbul=405) BLOOD UREA NITROGEN 12 mg/dL 7-21 (BEAKER) (test uhvz=539) CREATININE (BEAKER) (test 0.72 mg/dL 0.57-1.25 Specimen slightly nqus=733) hemolyzed GLUCOSE RANDOM (BEAKER) 193 mg/dL 70-105 (test thay=576) CALCIUM (BEAKER) (test 8.6 mg/dL 8.4-10.2 scck=911) EGFR (BEAKER) (test 86 mL/min/1.73 sq m ESTIMATED GFR IS NOT qfwj=6900) ACCURATE CREATININE CLEARANCE IN PREDICTING GLOMERULAR FILTRATION RATE. ESTIMATED GFR IS NOT APPLICABLE FOR DIALYSIS PATIENTS. SODIUM, RANDOM [id number] 23:49:00 Test Item Value Reference Range Comments SODIUM URINE (BEAKER) (test yumx=974) < meq/L Reference Range: No NormalsCBC W/PLT COUNT & AUTO [id number] 23: 35:00 Test Item Value Reference Range Comments WHITE BLOOD CELL COUNT (BEAKER) (test yony=802) 9.7 K/ L 3.5-10.5 RED BLOOD CELL COUNT (BEAKER) (test tqvu=597) 4.46 M/ L 3.93-5.22 HEMOGLOBIN (BEAKER) (test lrrh=096) 12.2 GM/DL 11.2-15.7 HEMATOCRIT (BEAKER) (test viza=490) 37.8 % 34.1-44.9 MEAN CORPUSCULAR VOLUME (BEAKER) (test srkv=814) 84.8 fL 79.4-94.8 MEAN CORPUSCULAR HEMOGLOBIN (BEAKER) (test 27.4 pg 25.6-32.2 dmmv=490) MEAN CORPUSCULAR HEMOGLOBIN CONC (BEAKER) (test 32.3 GM/DL 32.2-35.5 qvan=489) RED CELL DISTRIBUTION WIDTH (BEAKER) (test 13.0 % 11.7-14.4 vqni=302) PLATELET COUNT (BEAKER) (test dora=195) 210 K/CU MM 150-450 MEAN PLATELET VOLUME (BEAKER) (test idcd=442) 11.4 fL 9.4-12.3 NUCLEATED RED BLOOD CELLS (BEAKER) (test 0 /100 WBC 0-0 lqdu=578) NEUTROPHILS RELATIVE PERCENT (BEAKER) (test 61 % wwel=011) LYMPHOCYTES RELATIVE PERCENT (BEAKER) (test 28 % ssif=948) MONOCYTES RELATIVE PERCENT (BEAKER) (test 8 % pfnu=195) EOSINOPHILS RELATIVE PERCENT (BEAKER) (test 2 % mhfm=829) BASOPHILS RELATIVE PERCENT (BEAKER) (test 0 % zoht=585) NEUTROPHILS ABSOLUTE COUNT (BEAKER) (test 5.87 K/ L 1.56-6.13 jfyv=366) LYMPHOCYTES ABSOLUTE COUNT (BEAKER) (test 2.72 K/ L 1.18-3.74 fibk=342) MONOCYTES ABSOLUTE COUNT (BEAKER) (test 0.80 K/ L 0.24-0.36 algs=713) EOSINOPHILS ABSOLUTE COUNT (BEAKER) (test 0.22 K/ L 0.04-0.36 aauc=675) BASOPHILS ABSOLUTE COUNT (BEAKER) (test 0.03 K/ L 0.01-0.08 zysu=071) IMMATURE GRANULOCYTES-RELATIVE PERCENT (BEAKER) 1 % 0-1 (test jwwm=8549) CT, BRAIN, WITHOUT [id number] 22:57:00FINAL REPORT CT Head without contrast CLINICAL [...] no intracranial abnormality identified. Signed: Brian Gamboa [facility] Verified Date/Time: 06/26/2018 22:57:28 Reading Location: [address] TransitionalReading Room POCT-GLUCOSE [id number] 21:07:00 Test Item Value Reference Range Comments POC-GLUCOSE METER (BEAKER) 211 mg/dL 70-110 TESTED AT [address] (test itvu=0157) [facility] [address] BASIC METABOLIC [id number] 14:29:00 Test Item Value Reference Range Comments SODIUM (BEAKER) (test 137 meq/L 136-145 wmxf=340) POTASSIUM (BEAKER) (test 3.6 meq/L 3.5-5.1 pxqb=546) CHLORIDE (BEAKER) (test 100 meq/L 98-107 euiv=864) CO2 (BEAKER) (test 32 meq/L 22-29 xskz=950) BLOOD UREA NITROGEN 12 mg/dL 7-21 (BEAKER) (test kiss=945) CREATININE (BEAKER) (test 0.71 mg/dL 0.57-1.25 yoby=852) GLUCOSE RANDOM (BEAKER) 182 mg/dL 70-105 (test oqya=471) CALCIUM (BEAKER) (test 8.7 mg/dL 8.4-10.2 bgzu=983) EGFR (BEAKER) (test 88 mL/min/1.73 sq m ESTIMATED GFR IS NOT xjjp=1995) ACCURATE CREATININE CLEARANCE IN PREDICTING GLOMERULAR FILTRATION RATE. ESTIMATED GFR IS NOT APPLICABLE FOR DIALYSIS PATIENTS. CBC W/PLT COUNT & AUTO [id number] 14:25:00 Test Item Value Reference Range Comments WHITE BLOOD CELL COUNT (BEAKER) (test wimo=152) 12.3 K/ L 3.5-10.5 RED BLOOD CELL COUNT (BEAKER) (test jaqf=084) 4.76 M/ L 3.93-5.22 HEMOGLOBIN (BEAKER) (test tmbp=214) 13.1 GM/DL 11.2-15.7 HEMATOCRIT (BEAKER) (test xrvo=477) 40.6 % 34.1-44.9 MEAN CORPUSCULAR VOLUME (BEAKER) (test wwlx=257) 85.3 fL 79.4-94.8 MEAN CORPUSCULAR HEMOGLOBIN (BEAKER) (test 27.5 pg 25.6-32.2 zfyr=161) MEAN CORPUSCULAR HEMOGLOBIN CONC (BEAKER) (test 32.3 GM/DL 32.2-35.5 bbgm=961) RED CELL DISTRIBUTION WIDTH (BEAKER) (test 13.1 % 11.7-14.4 pypf=589) PLATELET COUNT (BEAKER) (test nemk=974) 254 K/CU MM 150-450 MEAN PLATELET VOLUME (BEAKER) (test axsp=279) 11.1 fL 9.4-12.3 NUCLEATED RED BLOOD CELLS (BEAKER) (test 0 /100 WBC 0-0 pjse=739) NEUTROPHILS RELATIVE PERCENT (BEAKER) (test 68 % jwge=577) LYMPHOCYTES RELATIVE PERCENT (BEAKER) (test 24 % oprj=909) MONOCYTES RELATIVE PERCENT (BEAKER) (test 6 % pton=601) EOSINOPHILS RELATIVE PERCENT (BEAKER) (test 1 % banu=644) BASOPHILS RELATIVE PERCENT (BEAKER) (test 0 % zbqw=615) NEUTROPHILS ABSOLUTE COUNT (BEAKER) (test 8.42 K/ L 1.56-6.13 hakv=172) LYMPHOCYTES ABSOLUTE COUNT (BEAKER) (test 2.90 K/ L 1.18-3.74 ddfh=552) MONOCYTES ABSOLUTE COUNT (BEAKER) (test 0.79 K/ L 0.24-0.36 cmdt=854) EOSINOPHILS ABSOLUTE COUNT (BEAKER) (test 0.07 K/ L 0.04-0.36 jser=368) BASOPHILS ABSOLUTE COUNT (BEAKER) (test 0.05 K/ L 0.01-0.08 qier=751) IMMATURE GRANULOCYTES-RELATIVE PERCENT (BEAKER) 1 % 0-1 (test wslc=7277) POCT-GLUCOSE [id number] 13:38:00 Test Item Value Reference Range Comments POC-GLUCOSE METER (BEAKER) 219 mg/dL 70-110 TESTED AT [address] (test ivso=2424) [place] [address] POCT-GLUCOSE [id number] 12:34:00 Test Item Value Reference Range Comments POC-GLUCOSE METER (BEAKER) 193 mg/dL 70-110 TESTED AT [address] (test aaxz=9980) [facility] [address] POCT-GLUCOSE [id number] 16:17:00 Test Item Value Reference Range Comments POC-GLUCOSE METER (BEAKER) 244 mg/dL 70-110 TESTED AT [address] (test qvmv=4967) [facility] [address] POCT-GLUCOSE [id number] 12:08:00 Test Item Value Reference Range Comments POC-GLUCOSE METER (BEAKER) 229 mg/dL 70-110 TESTED AT [address] (test tnxh=6563) [place] [address] POCT-GLUCOSE [id number] 08:27:00 Test Item Value Reference Range Comments POC-GLUCOSE METER (BEAKER) 280 mg/dL 70-110 TESTED AT [address] (test bzhj=5028) [facility] [address] OSMOLALITY, [id number] 05:16:00 Test Item Value Reference Range Comments OSMOLALITY URINE (BEAKER) (test asjf=143) 340 mOsm/kg 40-1,400 SPECIFIC GRAVITY, [id number] 04:53:00 Test Item Value Reference Range Comments SPECIFIC GRAVITY UA (BEAKER) (test invf=355) 1.010 1.001-1.035 POCT-GLUCOSE [id number] 22:29:00 Test Item Value Reference Range Comments POC-GLUCOSE METER (BEAKER) 257 mg/dL 70-110 TESTED AT [address] (test jyus=8949) [place] [address] BASIC METABOLIC [id number] 17:49:00 Test Item Value Reference Range Comments SODIUM (BEAKER) (test 137 meq/L 136-145 zwex=922) POTASSIUM (BEAKER) (test 4.6 meq/L 3.5-5.1 eyor=482) CHLORIDE (BEAKER) (test 102 meq/L 98-107 awff=206) CO2 (BEAKER) (test 26 meq/L 22-29 wgvc=419) BLOOD UREA NITROGEN 14 mg/dL 7-21 (BEAKER) (test paoo=095) CREATININE (BEAKER) (test 0.78 mg/dL 0.57-1.25 rqwa=581) GLUCOSE RANDOM (BEAKER) 246 mg/dL 70-105 (test sryb=980) CALCIUM (BEAKER) (test 8.7 mg/dL 8.4-10.2 xxmn=962) EGFR (BEAKER) (test 79 mL/min/1.73 sq m ESTIMATED GFR IS NOT bqvu=1191) ACCURATE CREATININE CLEARANCE IN PREDICTING GLOMERULAR FILTRATION RATE. ESTIMATED GFR IS NOT APPLICABLE FOR DIALYSIS PATIENTS. POCT-GLUCOSE [id number] 17:02:00 Test Item Value Reference Range Comments POC-GLUCOSE METER (BEAKER) 235 mg/dL 70-110 TESTED AT [address] (test nlbl=7522) [place] [address] POCT-GLUCOSE [id number] 12:06:00 Test Item Value Reference Range Comments POC-GLUCOSE METER (BEAKER) 249 mg/dL 70-110 TESTED AT [address] (test fslx=8069) [place] [address] POCT-GLUCOSE [id number] 09:40:00 Test Item Value Reference Range Comments POC-GLUCOSE METER (BEAKER) 278 mg/dL 70-110 TESTED AT [address] (test emvu=0546) [place] [address] BASIC METABOLIC [id number] 06:14:00 Test Item Value Reference Range Comments SODIUM (BEAKER) (test 141 meq/L 136-145 wtkr=136) POTASSIUM (BEAKER) (test 4.1 meq/L 3.5-5.1 vjbf=161) CHLORIDE (BEAKER) (test 104 meq/L 98-107 vymd=333) CO2 (BEAKER) (test 30 meq/L 22-29 sfru=863) BLOOD UREA NITROGEN 14 mg/dL 7-21 (BEAKER) (test efpw=741) CREATININE (BEAKER) (test 0.70 mg/dL 0.57-1.25 pmmh=452) GLUCOSE RANDOM (BEAKER) 146 mg/dL 70-105 (test xerm=739) CALCIUM (BEAKER) (test 9.4 mg/dL 8.4-10.2 rens=191) EGFR (BEAKER) (test 89 mL/min/1.73 sq m ESTIMATED GFR IS NOT cgte=9920) ACCURATE CREATININE CLEARANCE IN PREDICTING GLOMERULAR FILTRATION RATE. ESTIMATED GFR IS NOT APPLICABLE FOR DIALYSIS PATIENTS. [id number] 06:03:00 Test Item Value Reference Range Comments PROTIME (BEAKER) (test qygx=874) 13.8 seconds 11.7-14.7 INR (BEAKER) (test ezeg=367) 1.1 <=5.9 PARTIAL THROMBOPLASTIN TIME (BEAKER) (test 32.0 seconds 22.5-36.0 bovh=771) RECOMMENDED COUMADIN/WARFARIN INR THERAPY RANGESSTANDARD DOSE: 2.0 - 3.0 Includes: PROPHYLAXIS forvenous thrombosis, systemic embolization; TREATMENT for venous thrombosis and/or pulmonary embolus.HIGH RISK: Target INR is 2.5-3.5 for patients with mechanical heart valves. SCREEN, [id number] 05: 59:00 Test Item Value Reference Range Comments TEST URINE (BEAKER) (test zfoy=288) Negative POCT-GLUCOSE [id number] 05:46:00 Test Item Value Reference Range Comments POC-GLUCOSE METER (BEAKER) 140 mg/dL 70-110 TESTED AT [facility] [address] [facility] (test bpid=7848) [facility] [address] CBC W/PLT COUNT & AUTO [id number] 05:46:00 Test Item Value Reference Range Comments WHITE BLOOD CELL COUNT (BEAKER) (test yphj=146) 9.6 K/ L 3.5-10.5 RED BLOOD CELL COUNT (BEAKER) (test jgfu=954) 5.00 M/ L 3.93-5.22 HEMOGLOBIN (BEAKER) (test viyv=616) 14.0 GM/DL 11.2-15.7 HEMATOCRIT (BEAKER) (test hbay=218) 42.1 % 34.1-44.9 MEAN CORPUSCULAR VOLUME (BEAKER) (test cidk=331) 84.2 fL 79.4-94.8 MEAN CORPUSCULAR HEMOGLOBIN (BEAKER) (test 28.0 pg 25.6-32.2 wcry=655) MEAN CORPUSCULAR HEMOGLOBIN CONC (BEAKER) (test 33.3 GM/DL 32.2-35.5 bfrj=735) RED CELL DISTRIBUTION WIDTH (BEAKER) (test 13.0 % 11.7-14.4 zclu=025) PLATELET COUNT (BEAKER) (test ixaf=874) 227 K/CU MM 150-450 MEAN PLATELET VOLUME (BEAKER) (test jghx=137) 11.8 fL 9.4-12.3 NUCLEATED RED BLOOD CELLS (BEAKER) (test 0 /100 WBC 0-0 tfkq=799) NEUTROPHILS RELATIVE PERCENT (BEAKER) (test 52 % dpbv=293) LYMPHOCYTES RELATIVE PERCENT (BEAKER) (test 38 % dyqf=448) MONOCYTES RELATIVE PERCENT (BEAKER) (test 6 % rqrg=700) EOSINOPHILS RELATIVE PERCENT (BEAKER) (test 3 % qzch=421) BASOPHILS RELATIVE PERCENT (BEAKER) (test 1 % cwui=929) NEUTROPHILS ABSOLUTE COUNT (BEAKER) (test 5.03 K/ L 1.56-6.13 ymtm=179) LYMPHOCYTES ABSOLUTE COUNT (BEAKER) (test 3.62 K/ L 1.18-3.74 cwmv=029) MONOCYTES ABSOLUTE COUNT (BEAKER) (test 0.62 K/ L 0.24-0.36 azow=718) EOSINOPHILS ABSOLUTE COUNT (BEAKER) (test 0.27 K/ L 0.04-0.36 szpp=068) BASOPHILS ABSOLUTE COUNT (BEAKER) (test 0.05 K/ L 0.01-0.08 fwue=731) IMMATURE GRANULOCYTES-RELATIVE PERCENT (BEAKER) 1 % 0-1 (test hzyx=4171) POCT-GLUCOSE [id number] 21:27:00 Test Item Value Reference Range Comments POC-GLUCOSE METER (BEAKER) 223 mg/dL 70-110 TESTED AT [address] (test lsyg=7391) [place] [address] POCT-GLUCOSE [id number] 17:26:00 Test Item Value Reference Range Comments POC-GLUCOSE METER (BEAKER) 223 mg/dL 70-110 TESTED AT [address] (test ccir=3856) [place] [address] BASIC METABOLIC [id number] 16:43:00 Test Item Value Reference Range Comments SODIUM (BEAKER) (test 139 meq/L 136-145 lqxz=996) POTASSIUM (BEAKER) (test 4.5 meq/L 3.5-5.1 Specimen slightly wqqw=819) hemolyzed CHLORIDE (BEAKER) (test 102 meq/L 98-107 rwsj=225) CO2 (BEAKER) (test 29 meq/L 22-29 qfxf=264) BLOOD UREA NITROGEN 16 mg/dL 7-21 (BEAKER) (test sczh=713) CREATININE (BEAKER) (test 0.76 mg/dL 0.57-1.25 Specimen slightly llbu=288) hemolyzed GLUCOSE RANDOM (BEAKER) 217 mg/dL 70-105 (test yhfo=422) CALCIUM (BEAKER) (test 9.6 mg/dL 8.4-10.2 ooys=891) EGFR (BEAKER) (test 81 mL/min/1.73 sq m ESTIMATED GFR IS NOT ibot=4449) ACCURATE CREATININE CLEARANCE IN PREDICTING GLOMERULAR FILTRATION RATE. ESTIMATED GFR IS NOT APPLICABLE FOR DIALYSIS PATIENTS. POCT-GLUCOSE [id number] 09:06:00 Test Item Value Reference Range Comments POC-GLUCOSE METER (BEAKER) 265 mg/dL 70-110 TESTED AT [address] (test xwcc=8553) [place] [address] POCT-GLUCOSE [id number] 00:22:00 Test Item Value Reference Range Comments POC-GLUCOSE METER (BEAKER) 210 mg/dL 70-110 TESTED AT [address] (test oxfl=5524) [place] [address] POCT-GLUCOSE [id number] 20:27:00 Test Item Value Reference Range Comments POC-GLUCOSE METER (BEAKER) 235 mg/dL 70-110 TESTED AT [address] (test orzu=2909) [place] [address] POCT-GLUCOSE [id number] 17:10:00 Test Item Value Reference Range Comments POC-GLUCOSE METER (BEAKER) 264 mg/dL 70-110 TESTED AT [address] (test mpsm=7131) [place] [address] POCT-GLUCOSE [id number] 16:00:00 Test Item Value Reference Range Comments POC-GLUCOSE METER (BEAKER) 242 mg/dL 70-110 TESTED AT [address] (test zmxn=0870) [place] [address] POCT-GLUCOSE [id number] 08:54:00 Test Item Value Reference Range Comments POC-GLUCOSE METER (BEAKER) 224 mg/dL 70-110 TESTED AT [address] (test rxoh=3909) [place] [address] POCT-GLUCOSE [id number] 21:30:00 Test Item Value Reference Range Comments POC-GLUCOSE METER (BEAKER) 254 mg/dL 70-110 TESTED AT [address] (test zusm=9749) [place] [address] POCT-GLUCOSE [id number] 17:23:00 Test Item Value Reference Range Comments POC-GLUCOSE METER (BEAKER) 193 mg/dL 70-110 TESTED AT [address] (test eakm=7545) [place] [address] POCT-GLUCOSE [id number] 11:53:00 Test Item Value Reference Range Comments POC-GLUCOSE METER (BEAKER) 179 mg/dL 70-110 TESTED AT [address] (test xlgo=4480) [place] [address] [id number] 10:15:00 Test Item Value Reference Range Comments CORTISOL, TOTAL (BEAKER) (test yqkd=7574) 4.7 ug/dL 3.7-19.4 POCT-GLUCOSE [id number] 08:07:00 Test Item Value Reference Range Comments POC-GLUCOSE METER (BEAKER) 184 mg/dL 70-110 TESTED AT [address] (test yxqf=4415) [place] [id number] [place], BRAIN, WITHOUT [id number] 22:07:00FINAL REPORT CT Head without contrast CLINICAL [...] [place] Verified Date/Time: 06/20/2018 22:07:25 Reading Location: [address] Reading Room POCT-GLUCOSE [id number] 21:00:00 Test Item Value Reference Range Comments POC-GLUCOSE METER (BEAKER) 227 mg/dL 70-110 TESTED AT [address] (test oztg=6262) [place] [address] POCT-GLUCOSE [id number] 16:57:00 Test Item Value Reference Range Comments POC-GLUCOSE METER (BEAKER) 216 mg/dL 70-110 TESTED AT [address] (test hubp=3717) [place] [address] POCT-GLUCOSE [id number] 13:11:00 Test Item Value Reference Range Comments POC-GLUCOSE METER (BEAKER) 198 mg/dL 70-110 TESTED AT [address] (test jone=4888) [place] [address] POCT-GLUCOSE [id number] 07:47:00 Test Item Value Reference Range Comments POC-GLUCOSE METER (BEAKER) 213 mg/dL 70-110 TESTED AT [address] (test xwud=1354) [place] [address] BASIC METABOLIC [id number] 06:57:00 Test Item Value Reference Range Comments SODIUM (BEAKER) (test 138 meq/L 136-145 eldu=009) POTASSIUM (BEAKER) (test 3.9 meq/L 3.5-5.1 zqic=105) CHLORIDE (BEAKER) (test 105 meq/L 98-107 drqi=149) CO2 (BEAKER) (test 24 meq/L 22-29 fipu=964) BLOOD UREA NITROGEN 12 mg/dL 7-21 (BEAKER) (test qlzp=069) CREATININE (BEAKER) (test 0.73 mg/dL 0.57-1.25 fbco=055) GLUCOSE RANDOM (BEAKER) 192 mg/dL 70-105 (test ayjj=634) CALCIUM (BEAKER) (test 8.8 mg/dL 8.4-10.2 kncy=709) EGFR (BEAKER) (test 85 mL/min/1.73 sq m ESTIMATED GFR IS NOT jqit=8714) ACCURATE CREATININE CLEARANCE IN PREDICTING GLOMERULAR FILTRATION RATE. ESTIMATED GFR IS NOT APPLICABLE FOR DIALYSIS PATIENTS. POCT-GLUCOSE [id number] 05:24:00 Test Item Value Reference Range Comments POC-GLUCOSE METER (BEAKER) 192 mg/dL 70-110 TESTED AT [facility] [address] [facility] (test drsc=1412) [facility] [address] [address], CTANGIO [id number] 01:03:00FINAL REPORT CLINICAL HISTORY: Stroke TECHNIQUE: Initially, [...] arteries by NASCET criteria. Signed: Brian Gamboa MDReport Verified Date/ Time: 06/20/2018 01:03:44 Reading Location: [address] Transitional Reading Room [facility] [place], [id number] 01:03:00FINAL REPORT CLINICAL HISTORY: Stroke TECHNIQUE: Initially, [...] Verified Date/ Time: 06/20/2018 01:03:44 Reading Location: [address] Transitional Reading Room POCT-GLUCOSE [id number] 00:40:00 Test Item Value Reference Range Comments POC-GLUCOSE METER (BEAKER) 283 mg/dL 70-110 TESTED AT [address] (test mypc=2451) [facility] [address] POCT-GLUCOSE [id number] 21:21:00 Test Item Value Reference Range Comments POC-GLUCOSE METER (BEAKER) 343 mg/dL 70-110 TESTED AT [address] (test lzxg=1698) [facility] [address] SCREEN, [id number] 18:52:00 Test Item Value Reference Range Comments TEST URINE (BEAKER) (test ecgx=831) Negative POCT-GLUCOSE [id number] 17:17:00 Test Item Value Reference Range Comments POC-GLUCOSE METER (BEAKER) 287 mg/dL 70-110 TESTED AT [facility] [address] [facility] (test bxwj=6865) [facility] [address] [id number] 15:59:00 Test Item Value Reference Range Comments RPR SCREEN (BEAKER) (test kwej=160) Nonreactive Nonreactive POCT-GLUCOSE [id number] 15:07:00 Test Item Value Reference Range Comments POC-GLUCOSE METER (BEAKER) 323 mg/dL 70-110 TESTED AT [facility] [address] [facility] (test eutt=7245) [facility] [address] T4, [id number] 13:11:00 Test Item Value Reference Range Comments FREE T4 (BEAKER) (test vjzh=192) 0.89 ng/dL 0.70-1.48 HIV-1 ANTIGEN WITH HIV-1/2 [id number] 13:11:00 Test Item Value Reference Range Comments HIV-1 ANTIGEN WITH HIV 1\\T\\2 ANTIBODY (2) Nonreactive Nonreactive (BEAKER) (test lnsg=1470) RAPID DRUG SCREEN, [id number] 12:47:00 Test Item Value Reference Range Comments BARBITURATE URINE (BEAKER) (test sjxt=121) Negative Negative BENZODIAZEPINE SCREEN URINE (BEAKER) (test Negative Negative rrdq=705) COCAINE (METAB.) SCREEN (BEAKER) (test vlkd=3355) Negative Negative METHADONE SCREEN (BEAKER) (test zqcb=1985) Negative Negative OPIATE SCREEN URINE (BEAKER) (test cspw=846) Negative Negative CANNABINOID SCREEN URINE (BEAKER) (test vjaf=318) Negative Negative AMPH/METHAMPH SCREEN (BEAKER) (test rrmi=0128) Negative Negative PHENCYCLIDINE SCREEN URINE (BEAKER) (test djdp=086) Negative Negative OXYCODONE SCREEN URINE (BEAKER) (test nswf=[id number]) Negative Negative DRUG CUTOFF CONC.Cocaine 300 ng/mL Cannabinoid 50 ng/mL Benzodiazepine 200 ng/mLBarbiturate 200 ng/ mLPhencyclidine 25 ng/mLOpiate 300 ng/mLMethadone 300 ng/mLAmphetamine/ 1000 ng/mL MethamphetamineOxycodone 300 ng/mLThis assay provides an unconfirmed qualitative test result for the clinical management of patients in emergency situations. Chain of custody not maintained. Some kyyy-thx-vpdhdfs medications, as well as adulterants, may cause inaccurate results. Clinical correlation should be applied. A more comprehensive drug screen or confirmation of a detected drug may be performed upon request.POCT-GLUCOSE [id number] 12:37:00 Test Item Value Reference Range Comments POC-GLUCOSE METER (BEAKER) 292 mg/dL 70-110 TESTED AT [facility] [address] [facility] (test knoh=6948) [facility] [address] HEMOGLOBIN [id number] 12:35:00 Test Item Value Reference Range Comments HEMOGLOBIN A1C (BEAKER) (test ygoj=821) 7.9 % 4.3-6.1 OSMOLALITY, [id number] 12:34:00 Test Item Value Reference Range Comments OSMOLALITY, SERUM (BEAKER) (test rqga=556) 310 mOsm/kg 275-295 C-REACTIVE [id number] 12:28:00 Test Item Value Reference Range Comments C-REACTIVE PROTEIN (BEAKER) (test kben=755) 0.81 mg/dL 0.00-0.50 OSMOLALITY, [id number] 12:22:00 Test Item Value Reference Range Comments OSMOLALITY URINE (BEAKER) (test ajhu=649) 247 mOsm/kg 40-1,400 CBC W/PLT COUNT & AUTO [id number] 12:14:00 Test Item Value Reference Range Comments WHITE BLOOD CELL COUNT (BEAKER) (test jeig=966) 15.1 K/ L 3.5-10.5 RED BLOOD CELL COUNT (BEAKER) (test nlur=248) 5.15 M/ L 3.93-5.22 HEMOGLOBIN (BEAKER) (test iejs=850) 14.1 GM/DL 11.2-15.7 HEMATOCRIT (BEAKER) (test spyx=332) 42.3 % 34.1-44.9 MEAN CORPUSCULAR VOLUME (BEAKER) (test brko=636) 82.1 fL 79.4-94.8 MEAN CORPUSCULAR HEMOGLOBIN (BEAKER) (test 27.4 pg 25.6-32.2 nroz=356) MEAN CORPUSCULAR HEMOGLOBIN CONC (BEAKER) (test 33.3 GM/DL 32.2-35.5 sybg=736) RED CELL DISTRIBUTION WIDTH (BEAKER) (test 12.9 % 11.7-14.4 hudm=201) PLATELET COUNT (BEAKER) (test qurn=714) 278 K/CU MM 150-450 MEAN PLATELET VOLUME (BEAKER) (test jvgo=011) 11.5 fL 9.4-12.3 NUCLEATED RED BLOOD CELLS (BEAKER) (test 0 /100 WBC 0-0 ywfy=057) NEUTROPHILS RELATIVE PERCENT (BEAKER) (test 87 % rtab=546) LYMPHOCYTES RELATIVE PERCENT (BEAKER) (test 10 % kuqp=398) MONOCYTES RELATIVE PERCENT (BEAKER) (test 3 % dlyx=237) EOSINOPHILS RELATIVE PERCENT (BEAKER) (test 0 % bozl=791) BASOPHILS RELATIVE PERCENT (BEAKER) (test 0 % lrlq=953) NEUTROPHILS ABSOLUTE COUNT (BEAKER) (test 13.06 K/ L 1.56-6.13 ulcp=107) LYMPHOCYTES ABSOLUTE COUNT (BEAKER) (test 1.51 K/ L 1.18-3.74 wlqx=818) MONOCYTES ABSOLUTE COUNT (BEAKER) (test 0.38 K/ L 0.24-0.36 mani=057) EOSINOPHILS ABSOLUTE COUNT (BEAKER) (test 0.00 K/ L 0.04-0.36 fndy=863) BASOPHILS ABSOLUTE COUNT (BEAKER) (test 0.02 K/ L 0.01-0.08 qqls=974) IMMATURE GRANULOCYTES-RELATIVE PERCENT (BEAKER) 1 % 0-1 (test xmbq=1788) POCT-GLUCOSE [id number] 10:30:00 Test Item Value Reference Range Comments POC-GLUCOSE METER (BEAKER) 341 mg/dL 70-110 TESTED AT [address] (test jxye=8592) [place] [address] [id number] 06:17:00 Test Item Value Reference Range Comments PROLACTIN (BEAKER) (test ekjw=618) 23.34 ng/mL 5.18-26.53 POCT-GLUCOSE [id number] 05:55:00 Test Item Value Reference Range Comments POC-GLUCOSE METER (BEAKER) 285 mg/dL 70-110 TESTED AT [address] (test kxlr=1640) [place] [address] MR, BRAIN, [id number] 02:25:00Pituitary protocolCr 0.6FINAL REPORT MRI brain with and without contrast Comparison: None. 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 Discussion: Multiplanar MR imaging of the brain and sella was provided slw-fwy-wtxc IV gadolinium administration using T1, T2, FLAIR, [...] MDReport Verified Date/Time: 06/19/2018 02:25:15 Reading Location: [address] Body Reading Room TSH/FREE T4 IF [id number] 00:26:00 Test Item Value Reference Range Comments THYROID STIMULATING HORMONE (BEAKER) (test 0.41 uIU/mL 0.35-4.94 imvr=617) BASIC METABOLIC [id number] 00:07:00 Test Item Value Reference Range Comments SODIUM (BEAKER) (test 136 meq/L 136-145 knay=682) POTASSIUM (BEAKER) (test 4.0 meq/L 3.5-5.1 kvvr=137) CHLORIDE (BEAKER) (test 103 meq/L 98-107 scsa=091) CO2 (BEAKER) (test 20 meq/L 22-29 hvco=613) BLOOD UREA NITROGEN 11 mg/dL 7-21 (BEAKER) (test jdrq=502) CREATININE (BEAKER) (test 0.84 mg/dL 0.57-1.25 hwuo=543) GLUCOSE RANDOM (BEAKER) 357 mg/dL 70-105 (test ropq=950) CALCIUM (BEAKER) (test 9.0 mg/dL 8.4-10.2 vqbj=750) EGFR (BEAKER) (test 72 mL/min/1.73 sq m ESTIMATED GFR IS NOT megu=4610) ACCURATE CREATININE CLEARANCE IN PREDICTING GLOMERULAR FILTRATION RATE. ESTIMATED GFR IS NOT APPLICABLE FOR DIALYSIS PATIENTS. URINALYSIS W/ REFLEX URINE [id number] 23:13:00 Test Item Value Reference Range Comments COLOR (BEAKER) (test jqte=707) Yellow CLARITY (BEAKER) (test pnvu=551) Clear SPECIFIC GRAVITY UA (BEAKER) (test eyox=098) 1.011 1.001-1.035 PH UA (BEAKER) (test kxcp=780) 5.0 5.0-8.0 PROTEIN UA (BEAKER) (test mjvd=822) Negative Negative GLUCOSE UA (BEAKER) (test kzmq=725) >1000 mg/dL Negative KETONES UA (BEAKER) (test rgzs=751) 20 mg/dL Negative BILIRUBIN UA (BEAKER) (test grmq=517) Negative Negative BLOOD UA (BEAKER) (test kitn=589) Negative Negative NITRITE UA (BEAKER) (test gekf=648) Negative Negative LEUKOCYTE ESTERASE UA (BEAKER) (test hjjw=073) Negative Negative UROBILINOGEN UA (BEAKER) (test nppk=566) 0.2 mg/dL 0.2-1.0 RBC UA (BEAKER) (test reon=896) < /HPF WBC UA (BEAKER) (test ymxs=704) < /HPF SQUAMOUS EPITHELIAL (BEAKER) (test jfcd=765) < /HPF SOURCE(BEAKER) (test oppb=9805)
--- NOTE | 2018-07-12 20:09 | ER ---
Nurse's Notes [facility] Name: Chantal Stout Age: 48 yrs Sex: Female : 1970 Arrival Date: 07/12/2018 Time: 15:34 Bed 23 Private MD: JOSE MAR Diagnosis: Diarrhea, unspecified;Upper abdominal pain, unspecified Presentation: 07/12 15:35 Presenting complaint: Patient states: RUQ pain for the last few days eating seems to la1 make it worse. Pt also C/O nausea and diarrhea. Transition of care: patient was not received from another setting of care. Onset of symptoms was July 12, 2018. Risk Assessment: Do you want to hurt yourself or someone else? Patient reports no desire to harm self or others. Initial Sepsis Screen: Does the patient meet any 2 criteria? No. Patient's initial sepsis screen is negative. Does the patient have a suspected source of infection? No. Patient's initial sepsis screen is negative. Care prior to arrival: None. 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 tl3 Historical: - Allergies: 15:35 Bactrim; la1 15:35 Cephalexin; la1 15:35 Codeine; la1 15:35 Iodine; la1 15:35 Levaquin; la1 15:35 Sulfa (Sulfonamide Antibiotics); la1 - Home Meds: 15:35 amlodipine 10 mg tab 1 tab once daily [Active]; glyburide 5 mg Oral tab 1 tab once la1 daily [Active]; hydrocortisone 10 mg Oral tab 1 tab 2 times per day [Active]; levothyroxine 75 mcg tab 1 tab once daily [Active]; losartan 50 mg Oral tab 1 tab once daily [Active]; metformin 750 mg Oral Tb24 1 tab twice a day [Active]; omeprazole 20 mg Oral cpDR 1 cap once daily [Active]; - PMHx: 15:35 Anemia; Asthma; Diabetes - NIDDM; Hypertension; Hypothyroidism; pituitary tumor- la1 surgically removed Jun 24; - PSHx: 15:35 Pituitary tumor; cervical tumor removal; Tonsillectomy; la1 - Immunization history:: Adult Immunizations up to date. - Social history:: Smoking status: unknown. - Ebola Screening: : No symptoms or risks identified at this time. Screenin:57 Abuse screen: Denies threats or abuse. Nutritional screening: No deficits noted. tl3 Tuberculosis screening: No symptoms or risk factors identified. Fall Risk None identified. Assessment: 15:57 General: Appears distressed, uncomfortable, well groomed, well developed, well tl3 nourished, Behavior is calm, cooperative, appropriate for age. Pain: Complains of pain in upper right abdominal Pain currently is 8 out of 10 on a pain scale. Neuro: Level of Consciousness is awake, alert, obeys commands, Oriented to person, place, time, situation, Appropriate for age. Cardiovascular: Patient's skin is warm and dry. Respiratory: Airway is patent Respiratory effort is even, unlabored, Respiratory pattern is regular, symmetrical. GI: Reports upper abdominal pain, nausea, vomiting. : No signs and/or symptoms were reported regarding the genitourinary system. EENT: No signs and/or symptoms were reported regarding the EENT system. Derm: No signs and/or symptoms reported regarding the dermatologic system. Musculoskeletal: No signs and/or symptoms reported regarding the musculoskeletal system. 16:35 Reassessment: No changes from previously documented assessment. Patient and/or family tl3 updated on plan of care and expected duration. Pain level reassessed. Patient is alert, oriented x 3, equal unlabored respirations, skin warm/dry/pink. ultra sound at bedside. 17:45 Reassessment: Patient appears in no apparent distress at this time. No changes from tl3 previously documented assessment. Patient and/or family updated on plan of care and expected duration. Pain level reassessed. Patient is alert, oriented x 3, equal unlabored respirations, skin warm/dry/pink. 19:53 Reassessment: Patient appears in no apparent distress at this time. No changes from tl3 previously documented assessment. Patient and/or family updated on plan of care and expected duration. Pain level reassessed. Patient is alert, oriented x 3, equal unlabored respirations, skin warm/dry/pink. 20:33 Reassessment: Patient appears in no apparent distress at this time. No changes from tl3 previously documented assessment. Patient and/or family updated on plan of care and expected duration. Pain level reassessed. Patient is alert, oriented x 3, equal unlabored respirations, skin warm/dry/pink. Vital Signs: 15:37 Pulse 83; Resp 16; Temp 97.7(O); Pulse Ox 97% on R/A; Weight 117.93 kg; Height 5 ft. 4 la1 in. (162.56 cm); Pain 6/10; 15:38 BP 119 / 73; la1 16:20 BP 102 / 61; Pulse 77; Resp 18; Pulse Ox 96% on R/A; tl3 17:30 BP 116 / 70; Pulse 72; Resp 18; Pulse Ox 97% on R/A; tl3 18:15 BP 101 / 54; Pulse 73; Resp 18; Pulse Ox 97% on R/A; tl3 20:33 BP 112 / 78; Pulse 74; Resp 18; Pulse Ox 98% on R/A; tl3 15:37 Body Mass Index 44.63 (117.93 kg, 162.56 cm) la1 ED Course: 15:34 Patient arrived in ED. la1 15:35 JOSE MAR is Private Physician. mr 15:36 Triage completed. la1 15:36 Arm band placed on left wrist. la1 15:40 Marco Barnhart PA is PHCP. cp 15:40 Ranjan Mckoy MD is Attending Physician. cp 15:57 Shannan Zarate, ALCIDES is Primary Nurse. tl3 15:57 Patient has correct armband on for positive identification. Placed in gown. Bed in low tl3 position. Call light in reach. Side rails up X 1. Adult w/ patient. Pulse ox on. NIBP on. 15:57 No provider procedures requiring assistance completed. Inserted saline lock: 22 gauge tl3 in left upper arm, using aseptic technique. Blood collected. 16:19 XRAY Chest (1 view) In Process Unspecified. EDMS 16:19 Urine collected: clean catch specimen, clear, Amount Voided: 100mL X-ray(s) taken. tl3 16:50 Ultrasound completed. Patient tolerated well. Notified BYPRODUCT ENGINEER/PA page. sg3 16:51 US Abdomen Limited In Process Unspecified. EDMS 16:55 EKG done, by natural gas technician. reviewed by Marco CORNEJO. sm3 18:[address] via wheelchair. sj 18:44 CT Abd/Pelvis - W/Contrast: give oral contrast In Process Unspecified. EDMS 19:56 Urine Dipstick--Ancillary (enter results) Sent. tl3 20:09 Dylon Block MD is Referral Physician. cp 20:33 IV discontinued, intact, bleeding controlled, No redness/swelling at site. Pressure tl3 dressing applied. Administered Medications: 16:33 Drug: Pepcid 20 mg Route: IVP; Infused Over: 2 mins; Site: left upper arm; tl3 20:34 Follow up: Response: No adverse reaction tl3 16:33 Drug: fentaNYL (PF) 25 mcg Route: IVP; Infused Over: 2 mins; Site: left upper arm; tl3 20:34 Follow up: Response: No adverse reaction; Pain is decreased tl3 16:34 Drug: NS 0.9% 1000 ml Route: IV; Rate: 1 bolus; Infused Over: 1 hrs; Site: left upper tl3 arm; Delivery: Primary tubing; 20:34 Follow up: IV Status: Completed infusion; IV Intake: 500ml tl3 16:34 Drug: Zofran 4 mg Route: IVP; Infused Over: 2 mins; Site: left upper arm; tl3 20:34 Follow up: Response: No adverse reaction tl3 17:45 Drug: Benadryl 25 mg Route: IVP; Infused Over: 2 mins; Site: left upper arm; tl3 20:34 Follow up: Response: No adverse reaction tl3 Intake: 20:34 IV: 500ml; Total: 500ml. tl3 Outcome: 20:09 Discharge ordered by . cp 20:33 Discharged to home ambulatory. tl3 20:33 Condition: stable 20:33 Discharge instructions given to patient, Instructed on discharge instructions, follow up and referral plans. medication usage, Demonstrated understanding of instructions, follow-up care, medications, Prescriptions given X 1. 21:45 Patient left the ED. tl3 Signatures: Dispatcher [employer] EDMS LucasEugenie mr Molina ElviaJerald Venegas RN RN la1 Marco Barnhart PA PA cp Deisy Holden 3 Shannan Zarate RN RN tl3 Kera Verdugo 3 Corrections: (The following items were deleted from the chart) 19:56 17:30 BP 101 / 54; Pulse 73bpm; Resp 18bpm; Pulse Ox 97% RA; tl3 tl3
--- NOTE | 2018-07-12 20:09 | EDPHYS ---
Physician Documentation [facility] Name: Chantal Stout Age: 48 yrs Sex: Female : 1970 Arrival Date: 07/12/2018 Time: 15:34 Bed 23 Private MD: JOSE MAR ED Physician Ranjan Mckoy HPI: 07/12 16:05 This 48 yrs old Female presents to ER via Ambulatory with complaints of cp Abdominal Pain. 16:05 The patient presents with abdominal pain in the right upper quadrant. cp 16:05 Onset: The symptoms/episode began/occurred 3 day(s) ago. The symptoms do not radiate. cp Associated signs and symptoms: Pertinent positives: diarrhea, nausea, Pertinent negatives: anorexia, chest pain, constipation, dysuria, fever, vomiting. The symptoms are described as waxing/waning. Modifying factors: the symptoms are aggravated by food. Severity of pain: in the emergency department the pain is unchanged despite home interventions. 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 tl3 Historical: - Allergies: 15:35 Bactrim; la1 15:35 Cephalexin; la1 15:35 Codeine; la1 15:35 Iodine; la1 15:35 Levaquin; la1 15:35 Sulfa (Sulfonamide Antibiotics); la1 - Home Meds: 15:35 amlodipine 10 mg tab 1 tab once daily [Active]; glyburide 5 mg Oral tab 1 tab once la1 daily [Active]; hydrocortisone 10 mg Oral tab 1 tab 2 times per day [Active]; levothyroxine 75 mcg tab 1 tab once daily [Active]; losartan 50 mg Oral tab 1 tab once daily [Active]; metformin 750 mg Oral Tb24 1 tab twice a day [Active]; omeprazole 20 mg Oral cpDR 1 cap once daily [Active]; - PMHx: 15:35 Anemia; Asthma; Diabetes - NIDDM; Hypertension; Hypothyroidism; pituitary tumor- la1 surgically removed Jun 24; - PSHx: 15:35 Pituitary tumor; cervical tumor removal; Tonsillectomy; la1 - Immunization history:: Adult Immunizations up to date. - Social history:: Smoking status: unknown. - Ebola Screening: : No symptoms or risks identified at this time. ROS: 16:11 Eyes: Negative for injury, pain, redness, and discharge. cp 16:11 Constitutional: Negative for body aches, chills, fever, poor PO intake. 16:11 Cardiovascular: Negative for chest pain, edema, palpitations. cp 16:11 ENT: Negative for drainage from ear(s), ear pain, sore throat, difficulty swallowing, cp difficulty handling secretions. 16:11 Respiratory: Negative for cough, shortness of breath, wheezing. 16:11 Abdomen/GI: Positive for abdominal pain, nausea, diarrhea, Negative for vomiting, constipation, anorexia, black/tarry stool, rectal bleeding. 16:11 Back: Negative for radiated pain. 16:11 : Negative for urinary symptoms, flank pain. 16:11 Skin: Negative for cellulitis, rash. 16:11 Neuro: Negative for altered mental status, headache, weakness. 16:11 All other systems are negative. Exam: 16:15 Constitutional: The patient appears in no acute distress, alert, awake, cp non-diaphoretic, non-toxic, well developed, well nourished, obese, uncomfortable. 16:15 Head/Face: Normocephalic, atraumatic. cp 16:15 Eyes: Periorbital structures: appear normal, Conjunctiva: normal, no exudate, no cp injection, Sclera: no appreciated abnormality, Lids and lashes: appear normal, bilaterally. 16:15 ENT: External ear(s): are unremarkable, Nose: is normal, Mouth: Lips: moist, Oral mucosa: pink and intact, moist, Posterior pharynx: is normal, airway is patent, no erythema, no exudate. 16:15 Neck: ROM/movement: is normal, is supple, without pain, no range of motions limitations, no meningismus, no nuchal rigidity. 16:15 Chest/axilla: Inspection: normal, Palpation: is normal, no crepitus, no tenderness. 16:15 Cardiovascular: Rate: normal, Rhythm: regular. 16:15 Respiratory: the patient does not display signs of respiratory distress, Respirations: normal, no use of accessory muscles, no retractions, no splinting, no tachypnea, labored breathing, is not present, Breath sounds: are clear throughout, no decreased breath sounds, no stridor, no wheezing. 16:15 Abdomen/GI: Inspection: obese Bowel sounds: active, all quadrants, Palpation: soft, in all quadrants, moderate abdominal tenderness, in the right upper quadrant, rebound tenderness, is not appreciated, voluntary guarding, is elicited in the right upper quadrant. 16:15 Back: CVA tenderness, is absent. 16:15 Skin: cellulitis, is not appreciated, no rash present. 16:36 ECG was reviewed by the Attending Physician. cp Vital Signs: 15:37 Pulse 83; Resp 16; Temp 97.7(O); Pulse Ox 97% on R/A; Weight 117.93 kg; Height 5 ft. 4 la1 in. (162.56 cm); Pain 6/10; 15:38 BP 119 / 73; la1 16:20 BP 102 / 61; Pulse 77; Resp 18; Pulse Ox 96% on R/A; tl3 17:30 BP 116 / 70; Pulse 72; Resp 18; Pulse Ox 97% on R/A; tl3 18:15 BP 101 / 54; Pulse 73; Resp 18; Pulse Ox 97% on R/A; tl3 20:33 BP 112 / 78; Pulse 74; Resp 18; Pulse Ox 98% on R/A; tl3 15:37 Body Mass Index 44.63 (117.93 kg, 162.56 cm) la1 MDM: 15:59 Patient medically screened. cp 16:30 Differential diagnosis: appendicitis, bowel obstruction, cholecystitis, Cholelithiasis, cp diverticulitis, gastritis, pancreatitis, Peptic Ulcer Disease, Perf. Duodenal Ulcer, Perf. Gastric Ulcer, Pyelonephritis, Ureterolithiasis. 20:08 Data reviewed: vital signs, nurses notes, lab test result(s), radiologic studies, CT cp scan, plain films, ultrasound. 20:08 Test interpretation: by ED physician or midlevel provider: plain radiologic studies. 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 Response to treatment: the patient's symptoms have markedly improved after treatment, and as a result, I will discharge patient. Special discussion: Based on the patient's Hx, exam, and Dx evaluation, there is no indication for emergent surgery or inpatient Tx. It is understood by the patient/guardian that if the Sx's persist or worsen they need to return immediately for re-evaluation. 07/12 16:01 Order name: Basic Metabolic Panel; Complete Time: 16:35 07/12 16:35 Interpretation: Normal except: GLUC 187; GFR 81. 07/12 16:01 Order name: CBC with Diff; Complete Time: 16:31 07/12 16:31 Interpretation: Normal except: WBC 12.8; RBC 4.99; PLT 274; NEUT A 8.4. 07/12 16:01 Order name: Creatinine for Radiology; Complete Time: 16:31 07/12 16:01 Order name: Hepatic Function; Complete Time: 16:35 07/12 16:35 Interpretation: Normal except: ALT 91; GLOB 3.8; A/G 0.9. 07/12 16:01 Order name: Lipase; Complete Time: 16:35 07/12 16:01 Order name: Magnesium; Complete Time: 16:35 07/12 16:01 Order name: US Abdomen Limited; Complete Time: 18:06 07/12 18:06 Interpretation: Report reviewed. 07/12 16:01 Order name: XRAY Chest (1 view); Complete Time: 16:31 07/12 16:22 Order name: Urine Dipstick--Ancillary (enter results) lt 07/12 16:22 Order name: Urine Dipstick-Ancillary; Complete Time: 16:35 EDPR 07/12 16:25 Order name: Urine --Ancillary (enter results); Complete Time: 16:35 lt1 07/12 16:49 Order name: CT Abd/Pelvis - W/Contrast: give oral contrast; Complete Time: 19:43 07/12 19:43 Interpretation: Report reviewed. 07/12 15:40 Order name: Urine Dipstick-Ancillary (obtain specimen); Complete Time: 16:35 07/12 15:40 Order name: Urine Test (obtain specimen); Complete Time: 16:34 07/12 16:01 Order name: IV Saline Lock; Complete Time: 16:34 07/12 16:01 Order name: Labs collected and sent; Complete Time: 16:34 07/12 16:01 Order name: EKG; Complete Time: 16:02 07/12 16:01 Order name: EKG - Nurse/Tech; Complete Time: 16:33 cp 07/12 19:43 Order name: PO challenge; Complete Time: 19:56 cp EC:36 Rate is 74 beats/min. Rhythm is regular. CO interval is normal. QRS interval is normal. cp QT interval is normal. Interpreted by me. Reviewed by me. Administered Medications: 16:33 Drug: Pepcid 20 mg Route: IVP; Infused Over: 2 mins; Site: left upper arm; tl3 20:34 Follow up: Response: No adverse reaction tl3 16:33 Drug: fentaNYL (PF) 25 mcg Route: IVP; Infused Over: 2 mins; Site: left upper arm; tl3 20:34 Follow up: Response: No adverse reaction; Pain is decreased tl3 16:34 Drug: NS 0.9% 1000 ml Route: IV; Rate: 1 bolus; Infused Over: 1 hrs; Site: left upper tl3 arm; Delivery: Primary tubing; 20:34 Follow up: IV Status: Completed infusion; IV Intake: 500ml tl3 16:34 Drug: Zofran 4 mg Route: IVP; Infused Over: 2 mins; Site: left upper arm; tl3 20:34 Follow up: Response: No adverse reaction tl3 17:45 Drug: Benadryl 25 mg Route: IVP; Infused Over: 2 mins; Site: left upper arm; tl3 20:34 Follow up: Response: No adverse reaction tl3 Disposition: 07/12/18 20:09 Discharged to Home. Impression: Diarrhea, unspecified, Upper abdominal pain, unspecified. - Condition is Stable. - Discharge Instructions: Abdominal Pain, Adult, Food Choices to Help Relieve Diarrhea, Adult, Diarrhea, Adult. - Prescriptions for Bentyl 20 mg Oral Tablet - take 2 tablets by ORAL route every 6 hours As needed; 30 tablet. Protonix 40 mg Oral Tablet, Delayed Release (E.C.) - take 1 tablet by ORAL route once daily; 20 tablet. Zofran 4 mg Oral Tablet - take 1 tablet by ORAL route every 12 hours As needed; 20 tablet. - Medication Reconciliation Form, Thank You Letter, Antibiotic Education, Prescription Opioid Use form. - Follow up: Dylon Block MD; When: 2 - 3 days; Reason: Recheck today's complaints. - Problem is new. - Symptoms have improved. Signatures: Dispatcher [employer] EDMS Jerald Ramirez RN RN la1 Marco Barnhart PA PA cp Lowrey, Tammy RN RN tl3 Corrections: (The following items were deleted from the chart) 21:45 20:09 07/12/2018 20:09 Discharged to Home. Impression: Diarrhea, unspecified; Upper tl3 abdominal pain, unspecified. Condition is Stable. Forms are Medication Reconciliation Form, Thank You Letter, Antibiotic Education, Prescription Opioid Use. Follow up: Dylon Block; When: 2 - 3 days; Reason: Recheck today's complaints. Problem is new. Symptoms have improved. cp
[2018-07-12 22:12] VITALS: TEMP 97.7
[2018-07-12 22:17] VITALS: BP 112/78; O2SAT 98
== END 2018-07-12 21:45 | disposition home or self-care (01) ==
LOC: ER 15:30
DX: R19.7 Diarrhea, unspecified (principal); I10 Essential (primary) hypertension; E11.9 Type 2 diabetes mellitus without complications; E03.9 Hypothyroidism, unspecified; J45.909 Unspecified asthma, uncomplicated; Z88.1 Allergy status to other antibiotic agents; Z88.2 Allergy status to sulfonamides; Z88.5 Allergy status to narcotic agent; Z88.8 Allergy status to other drugs, medicaments and biological substances
CPT/HCPCS: 36415; 71045; 74177; 76705; 80048; 80076; 81003; 81025; 83690; 83735; 85025; 93005; 96361; 96374; 96375; 99285; J2405; J3010; J7030; Q9967

== ENCOUNTER 2018-10-01 11:55 | Emergency (ER) | payer BC ==
--- OUTSIDE RECORDS SUMMARY | 2018-10-01 11:58 | XMS REPORT | Clinical Summary ---
:[address] [facility] Address [address] [place] [address] Care Team Providers Name Role Phone Pcp, [...] packet by 3 packet 5 06/25/2018 Active [id number] Nasal route 2 bottle (NEILMED (two) times SINUS RINSE daily. COMPLETE) pkdv amLODIPine (NORVASC) Take 10 mg by 0 [...] Take 1 tablet 30 tablet 0 06/25/2018 (PROTONIX) 40 MG (40 mg total) 9 tablet by mouth daily for 30 days. losartan (COZAAR) 50 Take 1 tablet 30 tablet 0 06/25/2018 MG tablet (50 mg total) 9 by mouth daily for 30 days. 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; Allen Pituitary macroadenoma (HCC); Sherry Pitta Acquired hypothyroidism MD Aline Seay Sahar, MD Mezrahi, Maria, MD 06/18/2018 Travel after 09/30/2017 Family History Medical History Relation Name Comments [...] Taken Blood Pressure 125/71 06/27/2018 12:09 PM JOURNAL BOX INSPECTOR Pulse 63 06/27/2018 12:09 PM JOURNAL BOX INSPECTOR Temperature 36.2 C (97.1 F) 06/27/2018 12:09 PM JOURNAL BOX INSPECTOR Respiratory Rate 18 06/27/2018 12:09 PM JOURNAL BOX INSPECTOR Oxygen Saturation 97% 06/27/2018 12:09 PM JOURNAL BOX INSPECTOR Inhaled Oxygen Concentration - - Weight 122.5 kg (270 lb) 06/18/2018 9:00 PM JOURNAL BOX INSPECTOR Height 162.6 cm (5' 4") 06/18/2018 9:00 PM JOURNAL BOX INSPECTOR Body Mass Index 46.35 06/18/2018 9:00 PM JOURNAL BOX INSPECTOR Plan of Treatment Not on file Implants Implanted Type Area Senior Systems Programmer Device Shelf Model / Identifier Expiration Serial / Date Lot Sealant Durasl Spine 5ml [id number] - [id number] Cement/Fi N/A: [employer] 10/21/[id number] / Implanted: Qty: 1 on 06/24/2018 by Alex Ruano MD ller/Valentine Head / sive [id number] [facility] Full Strlprep 10ml [id number] - [id number] Cement/Fi N/A: FUNES: BIOSCI 11/18/2019 [id number] / Implanted: Qty: 1 on 06/24/2018 by Alex Ruano MD ller/[employer]entine Head / sive [id number] Graft Matrix Dura 1x3 [id number] - [id number] Neuro N/A: [employer] 02/20/2020 [id number] / Implanted: Qty: 1 on 06/24/2018 by Alex Ruano MD Head SURGICAL / NAVIGATION [id number] Procedures Procedure Name Priority Date/Time Associated Comments Diagnosis INTRAOPERATIVE PATH 06/29/2018 1:00 REPORT - SCAN PM JOURNAL BOX INSPECTOR RHYTHM STRIP - SCAN 06/29/2018 1:00 PM JOURNAL BOX INSPECTOR POCT-GLUCOSE METER Routine 06/27/2018 12:07 Results for this PM JOURNAL BOX INSPECTOR procedure are in the results section. POCT-GLUCOSE METER Routine 06/27/2018 7:41 Results for this AM JOURNAL BOX INSPECTOR procedure are in the results section. CBC W/PLT COUNT & AUTO Routine 06/27/2018 5:56 Results for this DIFFERENTIAL AM JOURNAL BOX INSPECTOR procedure are in the results section. BASIC METABOLIC PANEL Routine 06/27/2018 5:56 Results for this (7) AM JOURNAL BOX INSPECTOR procedure are in the results section. CBC W/PLT COUNT & AUTO Routine 06/27/2018 5:56 Results for this DIFFERENTIAL AM JOURNAL BOX INSPECTOR procedure are in the results section. CBC W/PLT COUNT & AUTO STAT 06/26/2018 11:18 Results for this DIFFERENTIAL PM JOURNAL BOX INSPECTOR procedure are in the results section. CBC W/PLT COUNT & AUTO STAT 06/26/2018 11:18 Results for this DIFFERENTIAL PM JOURNAL BOX INSPECTOR procedure are in the results section. BASIC METABOLIC PANEL STAT 06/26/2018 11:18 Results for this (7) PM JOURNAL BOX INSPECTOR procedure are in the results section. SODIUM, RANDOM URINE STAT 06/26/2018 11:11 Results for this PM JOURNAL BOX INSPECTOR procedure are in the results section. CT BRAIN WITHOUT IV STAT 06/26/2018 10:25 Results for this CONTRAST PM JOURNAL BOX INSPECTOR procedure are in the results section. POCT-GLUCOSE METER Routine 06/26/2018 9:01 Results for this PM JOURNAL BOX INSPECTOR procedure are in the results section. CBC W/PLT COUNT & AUTO Routine 06/26/2018 1:55 Results for this DIFFERENTIAL PM JOURNAL BOX INSPECTOR procedure are in the results section. BASIC METABOLIC PANEL Routine 06/26/2018 1:55 Results for this (7) PM JOURNAL BOX INSPECTOR procedure are in the results section. CBC W/PLT COUNT & AUTO Routine 06/26/2018 1:55 Results for this DIFFERENTIAL PM JOURNAL BOX INSPECTOR procedure are in the results section. POCT-GLUCOSE METER Routine 06/26/2018 1:33 Results for this PM JOURNAL BOX INSPECTOR procedure are in the results section. POCT-GLUCOSE METER Routine 06/26/2018 12:06 Results for this PM JOURNAL BOX INSPECTOR procedure are in the results section. POCT-GLUCOSE METER Routine 06/25/2018 4:10 Results for this PM JOURNAL BOX INSPECTOR procedure are in the results section. POCT-GLUCOSE METER Routine 06/25/2018 12:02 Results for this PM JOURNAL BOX INSPECTOR procedure are in the results section. POCT-GLUCOSE METER Routine 06/25/2018 8:02 Results for this AM JOURNAL BOX INSPECTOR procedure are in the results section. OSMOLALITY, URINE STAT 06/25/2018 4:23 Results for this AM JOURNAL BOX INSPECTOR procedure are in the results section. SPECIFIC GRAVITY, STAT 06/25/2018 4:23 Results for this URINE AM JOURNAL BOX INSPECTOR procedure are in the results section. POCT-GLUCOSE METER Routine 06/24/2018 9:56 Results for this PM JOURNAL BOX INSPECTOR procedure are in the results section. POCT-GLUCOSE METER Routine 06/24/2018 4:57 Results for this PM JOURNAL BOX INSPECTOR procedure are in the results section. BASIC METABOLIC PANEL STAT 06/24/2018 4:50 Results for this (7) PM JOURNAL BOX INSPECTOR procedure are in the results section. POCT-GLUCOSE METER Routine 06/24/2018 11:09 Results for this AM JOURNAL BOX INSPECTOR procedure are in the results section. POCT-GLUCOSE METER Routine 06/24/2018 9:38 Results for this AM JOURNAL BOX INSPECTOR procedure are in the results section. TISSUE EXAM AP Routine 06/24/2018 8:02 Results for this AM JOURNAL BOX INSPECTOR procedure are in the results section. ENDOSCOPIC SINUS 06/24/2018 7:00 Pituitary adenoma SURGERY,REPAIR CSF AM JOURNAL BOX INSPECTOR (HCC) [place] Special Needs (STEALTH NAVIGATION, LUMBAR DRAIN SET, LANDMARK CT SCAN ON ) TURBINECTOMY,NASAL 06/24/2018 7:00 AM JOURNAL BOX INSPECTOR Pituitary adenoma (HCC) Special Needs (STEALTH NAVIGATION, LUMBAR DRAIN SET, LANDMARK CT SCAN ON ) ENDOSCOPIC SINUS 06/24/2018 7:00 AM JOURNAL BOX INSPECTOR Pituitary adenoma SURGERY,ETHMOIDECTOMY W/ (HCC) SPHENOIDOTOMY Special Needs (STEALTH NAVIGATION, LUMBAR DRAIN SET, LANDMARK CT SCAN ON ) PROCEDURE W/ STEALTH 06/24/2018 7:00 AM JOURNAL BOX INSPECTOR Pituitary adenoma (HCC) Special Needs (STEALTH NAVIGATION, LUMBAR DRAIN SET, LANDMARK CT SCAN ON ) ENDOSCOPIC CRANIOTOMY,REMOVAL 06/24/2018 7:00 AM JOURNAL BOX INSPECTOR Pituitary adenoma ( HCC) TRANSSPHENOIDAL PITUITARY TUMOR Special Needs (STEALTH NAVIGATION, LUMBAR DRAIN SET, LANDMARK CT SCAN ON ) POCT-GLUCOSE METER Routine 06/24/2018 5:42 AM JOURNAL BOX INSPECTOR SCREEN, URINE STAT 06/24/2018 5:16 AM JOURNAL BOX INSPECTOR BASIC METABOLIC PANEL (7) Routine 06/24/2018 5:16 AM JOURNAL BOX INSPECTOR CBC W/PLT COUNT & AUTO Routine 06/24/2018 5:07 AM JOURNAL BOX INSPECTOR Results for this DIFFERENTIAL procedure are in the results section. PT/APTT Routine 06/24/2018 5:07 AM JOURNAL BOX INSPECTOR CBC W/PLT COUNT & AUTO Routine 06/24/2018 5:07 AM JOURNAL BOX INSPECTOR Results for this DIFFERENTIAL procedure are in the results section. POCT-GLUCOSE METER Routine 06/23/2018 9:21 PM JOURNAL BOX INSPECTOR POCT-GLUCOSE METER Routine 06/23/2018 4:31 PM JOURNAL BOX INSPECTOR BASIC METABOLIC PANEL (7) Routine 06/23/2018 4:13 PM JOURNAL BOX INSPECTOR POCT-GLUCOSE METER Routine 06/23/2018 8:30 AM JOURNAL BOX INSPECTOR POCT-GLUCOSE METER Routine 06/22/2018 11:34 PM JOURNAL BOX INSPECTOR POCT-GLUCOSE METER Routine 06/22/2018 8:21 PM JOURNAL BOX INSPECTOR POCT-GLUCOSE METER Routine 06/22/2018 5:07 PM JOURNAL BOX INSPECTOR POCT-GLUCOSE METER Routine 06/22/2018 11:49 AM JOURNAL BOX INSPECTOR POCT-GLUCOSE METER Routine 06/22/2018 8:30 AM JOURNAL BOX INSPECTOR POCT-GLUCOSE METER Routine 06/21/2018 9:09 PM JOURNAL BOX INSPECTOR POCT-GLUCOSE METER Routine 06/21/2018 5:20 PM JOURNAL BOX INSPECTOR POCT-GLUCOSE METER Routine 06/21/2018 11:06 AM JOURNAL BOX INSPECTOR ECHOCARDIOGRAM REPORT - SCAN 06/21/2018 9:21 AM JOURNAL BOX INSPECTOR FOLLICLE STIMULATING HORMONE Routine 06/21/2018 9:11 AM JOURNAL BOX INSPECTOR Results for this (FSH) procedure are in the results section. INSULIN-LIKE GROWTH FACTOR Routine 06/21/2018 9:11 AM JOURNAL BOX INSPECTOR ACTH Routine 06/21/2018 9:11 AM JOURNAL BOX INSPECTOR CORTISOL Routine 06/21/2018 9:11 AM JOURNAL BOX INSPECTOR POCT-GLUCOSE METER Routine 06/21/2018 7:[address] B[address] BRAIN WITHOUT IV CONTRAST TERI 06/20/2018 9:48 PM JOURNAL BOX INSPECTOR POCT-GLUCOSE METER Routine 06/20/2018 8:48 PM JOURNAL BOX INSPECTOR 2D ECHO W/ DOPPLER Routine 06/20/2018 6:40 PM JOURNAL BOX INSPECTOR Results for this (CW/PW/COLOR) procedure are in the results section. POCT-GLUCOSE METER Routine 06/20/2018 4:48 PM JOURNAL BOX INSPECTOR POCT-GLUCOSE METER Routine 06/20/2018 1:06 PM JOURNAL BOX INSPECTOR POCT-GLUCOSE METER Routine 06/20/2018 7:21 AM JOURNAL BOX INSPECTOR POCT-GLUCOSE METER Routine 06/20/2018 5:22 AM JOURNAL BOX INSPECTOR BASIC METABOLIC PANEL (7) STAT 06/20/2018 5:08 AM JOURNAL BOX INSPECTOR POCT-GLUCOSE METER Routine 06/20/2018 12:[address] BOX [address]/CTA CAROTID TERI 06/19/2018 10:[address]L BOX [address]/CTA BRAIN TERI 06/19/2018 10:46 PM JOURNAL BOX INSPECTOR POCT-GLUCOSE METER Routine 06/19/2018 9:19 PM JOURNAL BOX INSPECTOR POCT-GLUCOSE METER Routine 06/19/2018 5:06 PM JOURNAL BOX INSPECTOR POCT-GLUCOSE METER Routine 06/19/2018 3:03 PM JOURNAL BOX INSPECTOR POCT-GLUCOSE METER Routine 06/19/2018 12:27 PM JOURNAL BOX INSPECTOR SCREEN, URINE Routine 06/19/2018 11:54 AM JOURNAL BOX INSPECTOR OSMOLALITY, URINE Routine 06/19/2018 11:54 AM JOURNAL BOX INSPECTOR RAPID DRUG SCREEN, URINE Routine 06/19/2018 11:54 AM JOURNAL BOX INSPECTOR CBC W/PLT COUNT & AUTO Routine 06/19/2018 11:49 AM JOURNAL BOX INSPECTOR Results for this DIFFERENTIAL procedure are in the results section. INSULIN-LIKE GROWTH FACTOR Routine 06/19/2018 11:49 AM JOURNAL BOX INSPECTOR OSMOLALITY, SERUM Routine 06/19/2018 11:49 AM JOURNAL BOX INSPECTOR T4, FREE Routine 06/19/2018 11:49 AM JOURNAL BOX INSPECTOR C-REACTIVE PROTEIN Routine 06/19/2018 11:49 AM JOURNAL BOX INSPECTOR HIV-1 ANTIGEN WITH HIV-1/2 Routine 06/19/2018 11:49 AM JOURNAL BOX INSPECTOR Results for this ANTIBODY procedure are in the results section. RPR Routine 06/19/2018 11:49 AM JOURNAL BOX INSPECTOR CBC W/PLT COUNT & AUTO Routine 06/19/2018 11:49 AM JOURNAL BOX INSPECTOR Results for this DIFFERENTIAL procedure are in the results section. POCT-GLUCOSE METER Routine 06/19/2018 9:25 AM JOURNAL BOX INSPECTOR POCT-GLUCOSE METER Routine 06/19/2018 5:51 AM JOURNAL BOX INSPECTOR GROWTH HORMONE Routine 06/19/2018 3:49 AM JOURNAL BOX INSPECTOR LUTEINIZING HORMONE (LH) Routine 06/19/2018 3:49 AM JOURNAL BOX INSPECTOR ACTH Routine 06/19/2018 3:49 AM JOURNAL BOX INSPECTOR PROLACTIN Routine 06/19/2018 3:49 AM JOURNAL BOX INSPECTOR MR BRAIN WITHOUT & WITH IV STAT 06/19/2018 2:25 AM JOURNAL BOX INSPECTOR Results for this CONTRAST procedure are in the results section. HEMOGLOBIN A1C Routine 06/19/2018 12:39 AM JOURNAL BOX INSPECTOR TSH/FREE T4 IF INDICATED Routine 06/18/2018 11:32 PM JOURNAL BOX INSPECTOR BASIC METABOLIC PANEL (7) STAT 06/18/2018 11:32 PM JOURNAL BOX INSPECTOR URINALYSIS W/ REFLEX URINE Routine 06/18/2018 10:27 PM JOURNAL BOX INSPECTOR Results for this CULTURE procedure are in the results section. after 09/30/2017 Results INTRAOPERATIVE PATH REPORT - SCAN (06/29/2018 1:00 PM JOURNAL BOX INSPECTOR) Narrative Performed At RHYTHM STRIP - SCAN (06/29/2018 1:00 PM JOURNAL BOX INSPECTOR) Narrative Performed At POC-Glucose meter (06/27/2018 12:07 PM JOURNAL BOX INSPECTOR)Only the most recent of37 resultswithin the time period is included. POC-Glucose Meter 141 (H)Comment: TESTED AT 70 - 110 mg/dL [address] [address] Specimen Blood Performing Organization Address City/State/Zipcode Phone Number [address] [address] CENTER CBC with platelet count + automated diff (06/27/2018 5:56 AM JOURNAL BOX INSPECTOR)Only the most recent of5 resultswithin the time period is included. WBC 8.7 3.5 - 10.5 K/L [facility] RBC 4.82 3.93 - 5.22 M/L [facility] Hemoglobin 13.2 11.2 - 15.7 GM/DL [facility] Hematocrit 40.8 34.1 - 44.9 % [facility] MCV 84.6 79.4 - 94.8 fL [facility] MCH 27.4 25.6 - 32.2 pg [facility] MCHC 32.4 32.2 - 35.5 GM/DL [facility] RDW 13.2 11.7 - 14.4 % [facility] Platelets 233 150 - 450 K/CU MM [facility] MPV 11.5 9.4 - 12.3 fL [facility] nRBC 0 0 - 0 /100 WBC [facility] % Neutros 65 % [facility] % Lymphs 24 % [facility] % Monos 8 % [facility] % Eos 2 % [facility] % Baso 0 % [facility] # Neutros 5.65 1.56 - 6.13 K/L [facility] # Lymphs 2.07 1.18 - 3.74 K/L [facility] # Monos 0.70 (H) 0.24 - 0.36 K/L [facility] # Eos 0.16 0.04 - 0.36 K/L [facility] # Baso 0.02 0.01 - 0.08 K/L [facility] Immature Granulocytes-Relative 1 0 - 1 % [facility] Specimen Blood Performing Organization Address City/State/Zipcode Phone Number [facility] [address] [place] [address] CENTER Basic Metabolic Panel (06/27/2018 5:56 AM JOURNAL BOX INSPECTOR)Only the most recent of8 resultswithin the time period is included. Sodium 139 136 - 145 meq/L [facility] Potassium 4.1 3.5 - 5.1 meq/L [facility] Chloride 105 98 - 107 meq/L [facility] CO2 28 22 - 29 meq/L [facility] BUN 11 7 - 21 mg/dL [facility] Creatinine 0.69 0.57 - 1.25 mg/dL [facility] Glucose 163 (H) 70 - 105 mg/dL [facility] Calcium 8.6 8.4 - 10.2 mg/dL [facility] EGFR 91Comment: ESTIMATED GFR IS mL/min/1.73 sq m [facility] NOT ACCURATE CREATININE [facility] CENTER CLEARANCE IN PREDICTING GLOMERULAR FILTRATION RATE. ESTIMATED GFR IS NOT APPLICABLE FOR DIALYSIS PATIENTS. Specimen Blood Performing Organization Address City/[facility]/Zipcode Phone Number [address] [address] [place] Sodium, random urine (06/26/2018 11:11 PM JOURNAL BOX INSPECTOR) Sodium Urine <20 meq/L [facility] Specimen Urine - Urine, Voided Narrative Performed At Reference Range: No Normals [facility] Performing Organization Address [facility] Phone Number [address] [phone] [place] [address] brain without IV contrast (06/26/2018 10:25 PM JOURNAL BOX INSPECTOR)Only the most recent of2 resultswithin the time period is included. Narrative Performed At FINAL REPORT [facility] CT Head without contrast CLINICAL HISTORY: [...] MD Report Verified Date/Time:06/26/2018 22:57:28 Reading Location: [address] Transitional Reading Room Procedure Note Interface, External Ris In - 06/26/2018 10:59 PM JOURNAL BOX INSPECTOR FINAL REPORT CT Head without contrast CLINICAL [...] Report Verified Date/Time: 06/26/2018 22:57:28 Reading Location: [facility] B1 [id number] Transitional Reading Room Performing Organization Address City/State/Zipcode Phone Number GE RIS Specific gravity, urine (06/25/2018 4:23 AM JOURNAL BOX INSPECTOR) Specific [place], UA 1.010 1.001 - 1.035 [facility] Specimen Urine - Urine, Fonseca Performing Organization Address City/[facility]/Zipcode Phone Number [address] [address] [phone] CENTER Osmolality, urine (06/25/2018 4:23 AM JOURNAL BOX INSPECTOR)Only the most recent of2 resultswithin the time period is included. Osmolality, Ur 340 40-1,400 mOsm/kg [facility] Specimen Urine - Urine, Fonseca Performing Organization Address [facility] Phone Number [address] [address] [place] Tissue Exam (06/24/2018 8:02 AM JOURNAL BOX INSPECTOR) Case Report Surgical Pathology Report Case: [id number] [facility] Authorizing Provider:Alex Ruano MD Collected: 06/24/[address] [facility] MEDICAL Ordering Location: [address] Received: 06/24/2018 08 CENTER Service Pathologist: Chon Caraballo MD Specimens: A) - Tumor, pituitary tumor B) - Tumor, pituitary tumor DIAGNOSIS A.PITUITARY GLAND, TRANSSPHENOIDAL HYPOPHYSECTOMY: [facility] NULL CELL ADENOMA INVADING RESPIRATORY [facility] B. PITUITARY GLAND, TRANSSPHENOIDAL HYPOPHYSECTOMY: NULL CELL ADENOMA ENTRAPPED ADENOHYPOPHYSIS Signing Pathologist Direct Phone Line: [phone] COM[address]oxidase stains [facility] the [facility] MEDICAL specimen show that the tumor CENTER has no staining for growth hormone, LH, FSH, TSH, prolactin, or ACTH. 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 The MIB-1 proliferation index is less than 1%. CPT Code(s) 71228 x 2; 33797; 24840; 05166 [facility] x 6; 50689 [facility] EMERGENCY DEPARTMENT CLINICAL HISTORY Pituitary adenoma [facility] SPECIMEN SOURCE A. Pituitary tumor; B. [facility] Pituitary tumor [facility] EMERGENCY DEPART[facility] GROSS DESCRIPTION A. The specimen is received fresh for frozen section diagnosis and labeled "pituitary tumor" and consists of a single fragment of tariq -red soft tissue measuring 0.5 cm in greatest dimension submitted ent [facility] for frozen section diagnosis, and touch preps are performed. CG/ew [facility] EMERGENCY DEPARTMENT B. Received fresh labeled "tumor", description "pituitary tumor" is a 2.0 x 1.0 x 0.3 cm aggregate of pink-tariq to hannah-white rubbery friable soft tissue. The specimen is entirely submitted in cassette B1. DB/pl INTRAOPERATIVE FROZEN SECTION DIAGNOSIS, PITUITARY TUMOR: [facility] CONSULTATION ADENOMA EXTENDING INTO RESPIRATORY [place] PER DR. CARABALLO [facility] EMERGENCY DEPART[facility] MICROSCOPIC DESCRIPTION Performed on A and B [facility] SPECIAL STUDIES The interpretation of this case included the use of immunohistochemistry or special stains. [facility] Immunohistochemistry technical testing was performed at [facility], Pathology Laboratory where it was developed and [...] Tumor Performing Organization Address City/State/Zipcode Phone Number [facility] [address] [place] [address] [phone] CENTER Screen, urine (06/24/2018 5:16 AM JOURNAL BOX INSPECTOR)Only the most recent of2 resultswithin the time period is included. Preg Test, Ur Negative [facility] Specimen Urine Performing Organization Address City/State/Zipcode Phone Number [place] [phone] [place] [address] [place] PT/aPTT (06/24/2018 5:07 AM JOURNAL BOX INSPECTOR) Protime 13.8 11.7 - 14.7 seconds [facility] INR 1.1 <=5.9 [facility] PTT 32.0 22.5 - 36.0 seconds [facility] Specimen Blood Narrative Performed At RECOMMENDED COUMADIN/WARFARIN INR THERAPY [facility] RANGES STANDARD DOSE: 2.0 - 3.0 Includes: PROPHYLAXIS for venous thrombosis, systemic embolization; TREATMENT for venous thrombosis and/or pulmonary embolus. HIGH RISK: Target INR is 2.5-3.5 for patients with mechanical heart valves. Performing Organization Address City/[facility] Phone Number [address] [phone] [place] ECHOCARDIOGRAM REPORT - SCAN (06/21/2018 9:21 AM JOURNAL BOX INSPECTOR) Narrative Performed At Cortisol (06/21/2018 9:11 AM JOURNAL BOX INSPECTOR) Cortisol, Total 4.7 3.7 - 19.4 ug/dL [facility] Specimen Blood - Arm, Right Performing Organization Address City/[facility] Phone Number [address] [phone] [place] Insulin-like growth factor (06/21/2018 9:11 AM JOURNAL BOX INSPECTOR)Only the most recent of2 resultswithin the time period is included. Igf-1(Somatomedin-C) 36 (L) 52 - 328 ng/mL [facility] Z-Score Male: DNR [facility] Z-Score Female: -2.6 (L) -2.0 - 2.0 SD [facility] Comment: [facility] This test was developed and its analytical performance characteristics have been determined by [employer] [facility]. It has not been cleared or approved by FDA. This assay has been validated pursuant to the CLIA regulations and is used for clinical purposes. Specimen Blood - Arm, Right Narrative Performed At Performing Lab bulletn. [facility] [employer] [address] [address] Sixto Rodrigez MD, PhD, ANABELL Performing Organization Address [facility] [place] [address] [address] [place] [address] ACTH (06/21/2018 9:11 AM JOURNAL BOX INSPECTOR)Only the most recent of2 resultswithin the time period is included. ACTH 17 6 - 50 pg/mL bulletn. [facility] Comment: Reference range applies only to the specimens collected between 7am-10am. Specimen Blood - Arm, Right Narrative Performed At Performing Lab bulletn. [facility] [employer] [address] Sixto Rodrigez MD, PhD, ANABELL Performing Organization Address [facility] [place] [address] [address] [place] [address] Follicle stimulating hormone (FSH) (06/21/2018 9:11 AM JOURNAL BOX INSPECTOR) Fsh 2.3 mIU/mL [place] Comment: Adult female reference ranges for FSH: Follicular Phase: 2.5- 10.2 mIU/mL Mid-Cycle:3.1- 17.7 mIU/mL Luteal Phase: 1.5-9.1 mIU/mL Postmenopausal:23.0-116.3 mIU/mL Children (<18 Years Old): FSH reference ranges established on post-pubertal patient population. Reference range not established for pre-pubertal patients using this assay. For pre-pubertal patients, the [employer] FSH, Pediatrics assay is recommended (test code 41593). Specimen Blood - Arm, Right Narrative Performed At Performing Lab bulletn. [facility] [employer] [address] [address] Sixto Rodrigez MD, PhD, ANABELL Performing Organization Address [facility] [place] [address] [place] [address] [facility] Echo W/Doppler(CW/PW/Color) (06/20/2018 6:40 PM JOURNAL BOX INSPECTOR) Ejection Fraction [facility] Narrative Performed At Transthoracic Echocardiography Report (TTE) [facility] Demographics Patient NameVY STOUT Date of Study06/20/2018 Female Visit [id number] Unknown Room [id number] Number Date of 1970Referring Abrahan Mireles MD 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 48 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 [facility] [employer] Tony Fernandez Interpreting Tarik Domínguez MD Procedure [...] External Ris In - 06/21/2018 8:37 AM JOURNAL BOX INSPECTOR Transthoracic Echocardiography Report (TTE) Demographics Patient Name VY STOUT Date of Study 06/20/2018 Gender Female Visit Number [id number] Race Unknown Room Number 2251 Number Date of 1970 Referring Physician Althea Mireles MD Age 48 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(s) 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 [employer] Ethan Rowell Physician Procedure Type of Study [...] TR Gradient: 18.02 mmHg Performing Organization Address City/State/[facility] Phone Number [facility] CTA carotid (06/19/2018 10:46 PM JOURNAL BOX INSPECTOR) Narrative Performed At FINAL REPORT [facility] CLINICAL HISTORY: Stroke TECHNIQUE: Initially, noncontrast head [...] MD Report Verified Date/Time:06/20/2018 01:03:44 Reading Location: [address] Transitional Reading Room Procedure Note Interface, External Ris In - 06/20/2018 1:05 AM JOURNAL BOX INSPECTOR FINAL REPORT CLINICAL HISTORY: Stroke TECHNIQUE: Initially, [...] Report Verified Date/Time: 06/20/2018 01:03:44 Reading Location: [address] Transitional Reading Room Performing Organization Address City/State/Zipcode Phone Number [facility] CTA brain (06/19/2018 10:46 PM JOURNAL BOX INSPECTOR) Narrative Performed At FINAL REPORT [facility] CLINICAL HISTORY: Stroke TECHNIQUE: Initially, noncontrast head [...] MD Report Verified Date/Time:06/20/2018 01:03:44 Reading Location: [address] Transitional Reading Room Procedure Note Interface, External Ris In - 06/20/2018 1:05 AM JOURNAL BOX INSPECTOR FINAL REPORT CLINICAL HISTORY: Stroke TECHNIQUE: Initially, [...] Report Verified Date/Time: 06/20/2018 01:03:44 Reading Location: [address] Transitional Reading Room Performing Organization Address City/State/Zipcode Phone Number [facility] Rapid drug screen, urine (06/19/2018 11:54 AM JOURNAL BOX INSPECTOR) Barbiturate Screen Negative Negative [facility] Benzodiazepine Screen Negative Negative [facility] Cocaine (Metab.) Screen Negative Negative [facility] Methadone Screen Negative Negative [facility] Opiate Screen Negative Negative [facility] Cannabinoid Screen Negative Negative [facility] Amph/Methamph Screen Negative Negative [facility] Phencyclidine Screen Negative Negative [facility] Oxycodone Screen Negative Negative [facility] Specimen Urine - Urine, Voided Narrative Performed At [facility] CONC. Cocaine 300 ng/mL Mbcantrzoaw19 ng/mL Gdbwvngtddbtbd618 ng/mL Barbiturate 200 ng/mL Xfvgocvkmtwwa82 ng/mL Dkydcb074 ng/mL Methadone 300 ng/mL Amphetamine/ 1000 ng/mL Methamphetamine Oxycodone 300 ng/mL This assay provides an unconfirmed qualitative test result for the clinical management of patients in emergency situations. Chain of custody not maintained. Some emli-vqv-tvmrrcp medications, as well as adulterants, may cause inaccurate results. Clinical correlation should be applied. A more comprehensive drug screen or confirmation of a detected drug may be performed upon request. Performing Organization Address [facility] Phone Number [address] [address] [place] HIV-1 Antigen with HIV-1/2 Antibody (06/19/2018 11:49 AM JOURNAL BOX INSPECTOR) HIV-1 Antigen with HIV 1&2 NON-REACTIVE Nonreactive [facility] Specimen Blood - Arm, Left Performing Organization Address [facility] Phone Number [address] [address] [place] C-Reactive Protein (06/19/2018 11:49 AM JOURNAL BOX INSPECTOR) CRP 0.81 (H) 0.00 - 0.50 mg/dL [facility] Specimen Blood - Arm, Left Performing Organization Address [facility] Phone Number [address] [address] [place] RPR (06/19/2018 11:49 AM JOURNAL BOX INSPECTOR) RPR Nonreactive Nonreactive [facility] Specimen Blood - Arm, Left Performing Organization Address [facility] Phone Number [address] [address] [place] T4, free (06/19/2018 11:49 AM JOURNAL BOX INSPECTOR) Free T4 0.89 0.70 - 1.48 ng/dL [facility] Specimen Blood - Arm, Left Performing Organization Address [facility]/Zipcode Phone Number [address] [address] C[place] Osmolality, serum (06/19/2018 11:49 AM JOURNAL BOX INSPECTOR) Osmolality Serum 310 (H) 275 - 295 mOsm/kg [facility] Specimen Blood - Arm, Left Performing Organization Address [facility] Phone Number [address] [phone] CENTER Prolactin (06/19/2018 3:49 AM JOURNAL BOX INSPECTOR) Prolactin 23.34 5.18 - 26.53 ng/mL [facility] Specimen Blood Performing Organization Address [facility] Phone Number [address] [phone] [facility] Growth hormone (06/19/2018 3:49 AM JOURNAL BOX INSPECTOR) Growth Hormone <0.1 < OR=7.1 ng/mL [facility] [...] Guideline. J Clin Endocrinol Metab 2014; 99: 5691-0145]. Using GH stimulation testing, the following result at any point in the timed sequence makes GH deficiency unlikely: Adults (> or=20 years): Insulin Hypoglycemia > or=5.1 ng/mL Arginine/GHRH> or=4.1 ng/mL Glucagon > or=3.0 ng/mL Children (<20 years): All Stimulation Tests> or=10.0 ng/mL Specimen Blood Narrative Performed At Performing Lab bulletn. [facility] [id number] [place] [address] Sixto Rodrigez MD, PhD, ANABELL Performing Organization Address [facility] [place] [address] [place] [address] Luteinizing hormone (LH) (06/19/2018 3:49 AM JOURNAL BOX INSPECTOR) LH, Serum 0.2 mIU/mL [place] Comment: Adult Female Reference Ranges for LH: Follicular Phase:1.9-12.5 mIU/mL Mid-Cycle Peak:8.7-76.3 mIU/mL Luteal Phase:0.5-16.9 mIU/mL Postmenopausal: 10.0-54.7 mIU/mL Children (<18 Years Old): LH reference ranges established on post-pubertal patient population. Reference range not established for pre-pubertal patients using this assay. For pre-pubertal patients, the [employer] LH, Pediatric assay is recommended (order code [id number]). Specimen Blood Narrative Performed At Performing Lab bulletn. [facility] [id number] [place] [address] Sixto Rodrigez MD, PhD, ANABELL Performing Organization Address [facility] [place] [address] [place] [address] MR brain without & with IV contrast (06/19/2018 2:25 AM JOURNAL BOX INSPECTOR) Narrative Performed At FINAL REPORT [facility] MRI brain with and without contrast Comparison:None. 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 Discussion: Multiplanar MR imaging of the brain and sella was provided [id number]-[id number]-rasa IV gadolinium administration using T1, T2, FLAIR, [...] Verified Date/Time: 06/19/2018 02:25:15 Reading Location: [facility] B1 C013Y CT Body Reading Room Performing Organization Address City/State/Zipcode Phone Number [facility] Hemoglobin A1c (06/19/2018 12:39 AM JOURNAL BOX INSPECTOR) Hemoglobin A1C 7.9 (H) 4.3 - 6.1 % [facility] Specimen Blood Performing Organization Address City/[facility] Phone Number [address] [address] C[place] TSH/Free T4 If Indicated (06/18/2018 11:32 PM JOURNAL BOX INSPECTOR) TSH 0.41 0.35 - 4.94 uIU/mL [facility] Specimen Blood Performing Organization Address [facility] Phone Number [address] [address] [phone] CENTER Urinalysis w/Microscopic + Reflex to Culture (06/18/2018 10:27 PM JOURNAL BOX INSPECTOR) Color, UA Yellow [facility] Clarity, UA Clear [facility] Specific [place], UA 1.011 1.001 - 1.035 [facility] pH, UA 5.0 5.0 - 8.0 [facility] Protein, UA Negative Negative [facility] Glucose, UA >1000 mg/dL (A) Negative [facility] Ketones, UA 20 mg/dL (A) Negative [facility] Bilirubin, UA Negative Negative [facility] Blood, UA Negative Negative [facility] Nitrite, UA Negative Negative [facility] Leukocytes, UA Negative Negative [facility] Urobilinogen, UA 0.2 0.2 - 1.0 mg/dL [facility] RBC, UA <1 /HPF [facility] WBC, UA <1 /HPF [facility] Squam Epithel, UA <1 /HPF [facility] Specimen Source [facility] Specimen Urine - Urine, Clean Catch Performing Organization Address City/State/Zipcode Phone Number [address] [address] C[place] after 09/30/2017 Insurance Payer Benefit Plan / Subscriber ID Type Phone Address Group [employer]UE [employer]OSS/[employer]UE [employer] OS xxxxxxxxxxxx PPO [phone] [id number] [employer]/PP[place] [address] (Home) [address] [place] [phone] Advance Directives Patient has advance care planning documents, and code status on file. For more information, please contact:[address] [phone] Code Status Date Activated Date Inactivated Comments Full Code 06/26/2018 1:38 PM This code status was determined by: Patient Full Code 06/18/2018 8:39 PM 06/26/2018 11:54 AM This code status was determined by: Patient
--- OUTSIDE RECORDS SUMMARY | 2018-10-01 11:59 | XMS REPORT ---
:1970 Author Organization [facility] Address [address] [place] [address] Dr. Holbrook [address] [place] [id number] Care Team Providers Name Role Phone DAJUAN GEORGE Unavailable Unavailable MITCHELL DOBSON Unavailable Unavailable Problems This patient has no known problems. Allergies, Adverse Reactions, Alerts This patient has no known allergies or adverse reactions. Medications This patient has no known medications. Results Test Description Test Time Test Comments Text Results Atomic Results Result Comments TISSUE EXAM 2018-06-28 08:38:00 Surgical Pathology Report Case: [id number] Authorizing Provider: Alex Ruano MD Collected: 06/24/2018801 Ordering Location: [address] Received: 06/24/2018 0809 Service Pathologist: Chon Andino MD Specimens: A) - Tumor, pituitary tumor B) - Tumor, pituitary tumor A.PITUITARY GLAND, TRANSSPHENOIDAL 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 PITUITARY GLAND, TRANSSPHENOIDAL HYPOPHYSECTOMY:NULL CELL ADENOMAENTRAPPED ADENOHYPOPHYSIS Signing Pathologist Direct Phone Line: [phone] signed by Chon Andino MD on 06/28/2018 at 8:38 AMImmunoperoxidase stains performed on the second specimen show that the tumor has no staining for growth hormone, LH, FSH, TSH, prolactin, or ACTH. 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 The MIB-1 proliferation index is less than 1%. 40345 x 2; 58951; 48106; 75489 x 6; 83394Zbzwpayhf adenoma A. Pituitary tumor; B. Pituitary tumorA. [...] stains. Immunohistochemistry technical testing was performed at [facility] where it was developed and [...] 141 mg/dL 70-[address] [facility] [address] [place] [address] pvdy=1645) [facility] [address] POCT-GLUCOSE [id number] 12:06:00 Test Item Value Reference Range Comments POC-GLUCOSE METER (BEAKER) 217 mg/dL 70-110 TESTED AT [address] (test fzbw=8134) [facility] [address] BASIC METABOLIC [id number] 07:18:00 Test Item Value Reference Range Comments SODIUM (BEAKER) (test 139 meq/L 136-145 qrqh=715) POTASSIUM (BEAKER) (test 4.1 meq/L 3.5-5.1 cuif=373) CHLORIDE (BEAKER) (test 105 meq/L 98-107 skib=521) CO2 (BEAKER) (test 28 meq/L 22-29 jats=977) BLOOD UREA NITROGEN 11 mg/dL 7-21 (BEAKER) (test erns=972) CREATININE (BEAKER) (test 0.69 mg/dL 0.57-1.25 qqvp=310) GLUCOSE RANDOM (BEAKER) 163 mg/dL 70-105 (test guie=963) CALCIUM (BEAKER) (test 8.6 mg/dL 8.4-10.2 cswt=222) EGFR (BEAKER) (test 91 mL/min/1.73 sq m ESTIMATED GFR IS NOT pluw=4970) ACCURATE CREATININE CLEARANCE IN PREDICTING GLOMERULAR FILTRATION RATE. ESTIMATED GFR IS NOT APPLICABLE FOR DIALYSIS PATIENTS. CBC W/PLT COUNT & AUTO [id number] 06:49:00 Test Item Value Reference Range Comments WHITE BLOOD CELL COUNT (BEAKER) (test axvv=401) 8.7 K/ L 3.5-10.5 RED BLOOD CELL COUNT (BEAKER) (test ggif=300) 4.82 M/ L 3.93-5.22 HEMOGLOBIN (BEAKER) (test isdy=296) 13.2 GM/DL 11.2-15.7 HEMATOCRIT (BEAKER) (test xaak=921) 40.8 % 34.1-44.9 MEAN CORPUSCULAR VOLUME (BEAKER) (test iyqd=463) 84.6 fL 79.4-94.8 MEAN CORPUSCULAR HEMOGLOBIN (BEAKER) (test 27.4 pg 25.6-32.2 xphn=566) MEAN CORPUSCULAR HEMOGLOBIN CONC (BEAKER) (test 32.4 GM/DL 32.2-35.5 kxtv=817) RED CELL DISTRIBUTION WIDTH (BEAKER) (test 13.2 % 11.7-14.4 kevm=382) PLATELET COUNT (BEAKER) (test llee=542) 233 K/CU MM 150-450 MEAN PLATELET VOLUME (BEAKER) (test nwjg=117) 11.5 fL 9.4-12.3 NUCLEATED RED BLOOD CELLS (BEAKER) (test 0 /100 WBC 0-0 yjug=207) NEUTROPHILS RELATIVE PERCENT (BEAKER) (test 65 % rjwh=300) LYMPHOCYTES RELATIVE PERCENT (BEAKER) (test 24 % hujf=790) MONOCYTES RELATIVE PERCENT (BEAKER) (test 8 % rofw=523) EOSINOPHILS RELATIVE PERCENT (BEAKER) (test 2 % mdfu=256) BASOPHILS RELATIVE PERCENT (BEAKER) (test 0 % sfxr=611) NEUTROPHILS ABSOLUTE COUNT (BEAKER) (test 5.65 K/ L 1.56-6.13 keom=305) LYMPHOCYTES ABSOLUTE COUNT (BEAKER) (test 2.07 K/ L 1.18-3.74 xwgj=169) MONOCYTES ABSOLUTE COUNT (BEAKER) (test 0.70 K/ L 0.24-0.36 mwwi=245) EOSINOPHILS ABSOLUTE COUNT (BEAKER) (test 0.16 K/ L 0.04-0.36 jaqm=607) BASOPHILS ABSOLUTE COUNT (BEAKER) (test 0.02 K/ L 0.01-0.08 pdbc=231) IMMATURE GRANULOCYTES-RELATIVE PERCENT (BEAKER) 1 % 0-1 (test jtow=4189) BASIC METABOLIC [id number] 23:52:00 Test Item Value Reference Range Comments SODIUM (BEAKER) (test 139 meq/L 136-145 abee=604) POTASSIUM (BEAKER) (test 4.0 meq/L 3.5-5.1 Specimen slightly cwsl=040) hemolyzed CHLORIDE (BEAKER) (test 103 meq/L 98-107 vifq=131) CO2 (BEAKER) (test 28 meq/L 22-29 rbgz=996) BLOOD UREA NITROGEN 12 mg/dL 7-21 (BEAKER) (test tris=937) CREATININE (BEAKER) (test 0.72 mg/dL 0.57-1.25 Specimen slightly qmcq=058) hemolyzed GLUCOSE RANDOM (BEAKER) 193 mg/dL 70-105 (test prdm=665) CALCIUM (BEAKER) (test 8.6 mg/dL 8.4-10.2 stxl=161) EGFR (BEAKER) (test 86 mL/min/1.73 sq m ESTIMATED GFR IS NOT ajoa=8028) ACCURATE CREATININE CLEARANCE IN PREDICTING GLOMERULAR FILTRATION RATE. ESTIMATED GFR IS NOT APPLICABLE FOR DIALYSIS PATIENTS. SODIUM, RANDOM [id number] 23:49:00 Test Item Value Reference Range Comments SODIUM URINE (BEAKER) (test lwjk=718) < meq/L Reference Range: No NormalsCBC W/PLT COUNT & AUTO [id number] 23: 35:00 Test Item Value Reference Range Comments WHITE BLOOD CELL COUNT (BEAKER) (test sczv=163) 9.7 K/ L 3.5-10.5 RED BLOOD CELL COUNT (BEAKER) (test zmwc=108) 4.46 M/ L 3.93-5.22 HEMOGLOBIN (BEAKER) (test ncka=035) 12.2 GM/DL 11.2-15.7 HEMATOCRIT (BEAKER) (test ovpt=878) 37.8 % 34.1-44.9 MEAN CORPUSCULAR VOLUME (BEAKER) (test gbva=843) 84.8 fL 79.4-94.8 MEAN CORPUSCULAR HEMOGLOBIN (BEAKER) (test 27.4 pg 25.6-32.2 qyee=273) MEAN CORPUSCULAR HEMOGLOBIN CONC (BEAKER) (test 32.3 GM/DL 32.2-35.5 secx=261) RED CELL DISTRIBUTION WIDTH (BEAKER) (test 13.0 % 11.7-14.4 qaad=180) PLATELET COUNT (BEAKER) (test yqcw=435) 210 K/CU MM 150-450 MEAN PLATELET VOLUME (BEAKER) (test nqrl=675) 11.4 fL 9.4-12.3 NUCLEATED RED BLOOD CELLS (BEAKER) (test 0 /100 WBC 0-0 hlll=374) NEUTROPHILS RELATIVE PERCENT (BEAKER) (test 61 % sunz=322) LYMPHOCYTES RELATIVE PERCENT (BEAKER) (test 28 % qdsj=323) MONOCYTES RELATIVE PERCENT (BEAKER) (test 8 % xlre=577) EOSINOPHILS RELATIVE PERCENT (BEAKER) (test 2 % xalx=283) BASOPHILS RELATIVE PERCENT (BEAKER) (test 0 % dbya=768) NEUTROPHILS ABSOLUTE COUNT (BEAKER) (test 5.87 K/ L 1.56-6.13 bakd=268) LYMPHOCYTES ABSOLUTE COUNT (BEAKER) (test 2.72 K/ L 1.18-3.74 aouo=810) MONOCYTES ABSOLUTE COUNT (BEAKER) (test 0.80 K/ L 0.24-0.36 idnz=602) EOSINOPHILS ABSOLUTE COUNT (BEAKER) (test 0.22 K/ L 0.04-0.36 jfwq=886) BASOPHILS ABSOLUTE COUNT (BEAKER) (test 0.03 K/ L 0.01-0.08 hxlt=008) IMMATURE GRANULOCYTES-RELATIVE PERCENT (BEAKER) 1 % 0-1 (test ufjx=3979) CT, BRAIN, WITHOUT [id number] 22:57:00FINAL REPORT CT Head without contrast CLINICAL [...] Gamboa Verified Date/Time: 06/26/2018 22:57:28 [address] Location[address] POCT-GLUCOSE [id number] 21:07:00 Test Item Value Reference Range Comments POC-GLUCOSE METER (BEAKER) 211 mg/dL 70-110 TESTED AT [address] (test wmsi=9495) [facility] [address] BASIC METABOLIC [id number] 14:29:00 Test Item Value Reference Range Comments SODIUM (BEAKER) (test 137 meq/L 136-145 irad=720) POTASSIUM (BEAKER) (test 3.6 meq/L 3.5-5.1 xmcy=352) CHLORIDE (BEAKER) (test 100 meq/L 98-107 naam=340) CO2 (BEAKER) (test 32 meq/L 22-29 utco=498) BLOOD UREA NITROGEN 12 mg/dL 7-21 (BEAKER) (test uynx=829) CREATININE (BEAKER) (test 0.71 mg/dL 0.57-1.25 wzou=767) GLUCOSE RANDOM (BEAKER) 182 mg/dL 70-105 (test xkkl=436) CALCIUM (BEAKER) (test 8.7 mg/dL 8.4-10.2 wejd=168) EGFR (BEAKER) (test 88 mL/min/1.73 sq m ESTIMATED GFR IS NOT vhym=3949) ACCURATE CREATININE CLEARANCE IN PREDICTING GLOMERULAR FILTRATION RATE. ESTIMATED GFR IS NOT APPLICABLE FOR DIALYSIS PATIENTS. CBC W/PLT COUNT & AUTO [id number] 14:25:00 Test Item Value Reference Range Comments WHITE BLOOD CELL COUNT (BEAKER) (test ykcg=090) 12.3 K/ L 3.5-10.5 RED BLOOD CELL COUNT (BEAKER) (test umls=096) 4.76 M/ L 3.93-5.22 HEMOGLOBIN (BEAKER) (test airz=507) 13.1 GM/DL 11.2-15.7 HEMATOCRIT (BEAKER) (test cnot=713) 40.6 % 34.1-44.9 MEAN CORPUSCULAR VOLUME (BEAKER) (test ybpd=095) 85.3 fL 79.4-94.8 MEAN CORPUSCULAR HEMOGLOBIN (BEAKER) (test 27.5 pg 25.6-32.2 wryr=797) MEAN CORPUSCULAR HEMOGLOBIN CONC (BEAKER) (test 32.3 GM/DL 32.2-35.5 cugi=740) RED CELL DISTRIBUTION WIDTH (BEAKER) (test 13.1 % 11.7-14.4 hows=562) PLATELET COUNT (BEAKER) (test xama=769) 254 K/CU MM 150-450 MEAN PLATELET VOLUME (BEAKER) (test pdmx=379) 11.1 fL 9.4-12.3 NUCLEATED RED BLOOD CELLS (BEAKER) (test 0 /100 WBC 0-0 dqkv=204) NEUTROPHILS RELATIVE PERCENT (BEAKER) (test 68 % ulnk=909) LYMPHOCYTES RELATIVE PERCENT (BEAKER) (test 24 % rtra=132) MONOCYTES RELATIVE PERCENT (BEAKER) (test 6 % wgan=608) EOSINOPHILS RELATIVE PERCENT (BEAKER) (test 1 % rwig=044) BASOPHILS RELATIVE PERCENT (BEAKER) (test 0 % ucuv=412) NEUTROPHILS ABSOLUTE COUNT (BEAKER) (test 8.42 K/ L 1.56-6.13 hcum=928) LYMPHOCYTES ABSOLUTE COUNT (BEAKER) (test 2.90 K/ L 1.18-3.74 uprs=891) MONOCYTES ABSOLUTE COUNT (BEAKER) (test 0.79 K/ L 0.24-0.36 mlpe=130) EOSINOPHILS ABSOLUTE COUNT (BEAKER) (test 0.07 K/ L 0.04-0.36 migt=053) BASOPHILS ABSOLUTE COUNT (BEAKER) (test 0.05 K/ L 0.01-0.08 wxek=809) IMMATURE GRANULOCYTES-RELATIVE PERCENT (BEAKER) 1 % 0-1 (test wklk=3984) POCT-GLUCOSE [id number] 13:38:00 Test Item Value Reference Range Comments POC-GLUCOSE METER (BEAKER) 219 mg/dL 70-110 TESTED AT [address] (test dzgb=5112) [place] [id number] POCT-GLUCOSE [id number] 12:34:00 Test Item Value Reference Range Comments POC-GLUCOSE METER (BEAKER) 193 mg/dL 70-110 TESTED AT [address] (test dihr=0500) [place] [address] POCT-GLUCOSE [id number] 16:17:00 Test Item Value Reference Range Comments POC-GLUCOSE METER (BEAKER) 244 mg/dL 70-110 TESTED AT [address] (test naxs=8878) [place] [address] POCT-GLUCOSE [id number] 12:08:00 Test Item Value Reference Range Comments POC-GLUCOSE METER (BEAKER) 229 mg/dL 70-110 TESTED AT [address] (test xtxr=5410) [place] [address] POCT-GLUCOSE [id number] 08:27:00 Test Item Value Reference Range Comments POC-GLUCOSE METER (BEAKER) 280 mg/dL 70-110 TESTED AT [address] (test bwiy=3344) [facility] [address] OSMOLALITY, [id number] 05:16:00 Test Item Value Reference Range Comments OSMOLALITY URINE (BEAKER) (test zexr=536) 340 mOsm/kg 40-1,400 SPECIFIC GRAVITY, [id number] 04:53:00 Test Item Value Reference Range Comments SPECIFIC GRAVITY UA (BEAKER) (test dxle=361) 1.010 1.001-1.035 POCT-GLUCOSE [id number] 22:29:00 Test Item Value Reference Range Comments POC-GLUCOSE METER (BEAKER) 257 mg/dL 70-110 TESTED AT [address] (test nnwi=2067) [place] [address] BASIC METABOLIC [id number] 17:49:00 Test Item Value Reference Range Comments SODIUM (BEAKER) (test 137 meq/L 136-145 joux=992) POTASSIUM (BEAKER) (test 4.6 meq/L 3.5-5.1 ankm=459) CHLORIDE (BEAKER) (test 102 meq/L 98-107 gzqz=405) CO2 (BEAKER) (test 26 meq/L 22-29 gquf=761) BLOOD UREA NITROGEN 14 mg/dL 7-21 (BEAKER) (test ocvs=193) CREATININE (BEAKER) (test 0.78 mg/dL 0.57-1.25 fckj=375) GLUCOSE RANDOM (BEAKER) 246 mg/dL 70-105 (test kgkq=478) CALCIUM (BEAKER) (test 8.7 mg/dL 8.4-10.2 tfdu=142) EGFR (BEAKER) (test 79 mL/min/1.73 sq m ESTIMATED GFR IS NOT namw=0677) ACCURATE CREATININE CLEARANCE IN PREDICTING GLOMERULAR FILTRATION RATE. ESTIMATED GFR IS NOT APPLICABLE FOR DIALYSIS PATIENTS. POCT-GLUCOSE [id number] 17:02:00 Test Item Value Reference Range Comments POC-GLUCOSE METER (BEAKER) 235 mg/dL 70-110 TESTED AT [address] (test kxsr=3949) [place] [address] POCT-GLUCOSE [id number] 12:06:00 Test Item Value Reference Range Comments POC-GLUCOSE METER (BEAKER) 249 mg/dL 70-110 TESTED AT [address] (test znvy=8036) [place] [address] POCT-GLUCOSE [id number] 09:40:00 Test Item Value Reference Range Comments POC-GLUCOSE METER (BEAKER) 278 mg/dL 70-110 TESTED AT [address] (test fvfg=6696) [place] [address] BASIC METABOLIC [id number] 06:14:00 Test Item Value Reference Range Comments SODIUM (BEAKER) (test 141 meq/L 136-145 zwjl=763) POTASSIUM (BEAKER) (test 4.1 meq/L 3.5-5.1 juqc=405) CHLORIDE (BEAKER) (test 104 meq/L 98-107 cxdm=954) CO2 (BEAKER) (test 30 meq/L 22-29 oxgz=454) BLOOD UREA NITROGEN 14 mg/dL 7-21 (BEAKER) (test vdow=079) CREATININE (BEAKER) (test 0.70 mg/dL 0.57-1.25 afbc=396) GLUCOSE RANDOM (BEAKER) 146 mg/dL 70-105 (test rewc=339) CALCIUM (BEAKER) (test 9.4 mg/dL 8.4-10.2 vbyx=986) EGFR (BEAKER) (test 89 mL/min/1.73 sq m ESTIMATED GFR IS NOT iqpm=0682) ACCURATE CREATININE CLEARANCE IN PREDICTING GLOMERULAR FILTRATION RATE. ESTIMATED GFR IS NOT APPLICABLE FOR DIALYSIS PATIENTS. [id number] 06:03:00 Test Item Value Reference Range Comments PROTIME (BEAKER) (test scmy=189) 13.8 seconds 11.7-14.7 INR (BEAKER) (test gatg=971) 1.1 <=5.9 PARTIAL THROMBOPLASTIN TIME (BEAKER) (test 32.0 seconds 22.5-36.0 dnrr=577) RECOMMENDED COUMADIN/WARFARIN INR THERAPY RANGESSTANDARD DOSE: 2.0 - 3.0 Includes: PROPHYLAXIS forvenous thrombosis, systemic embolization; TREATMENT for venous thrombosis and/or pulmonary embolus.HIGH RISK: Target INR is 2.5-3.5 for patients with mechanical heart valves. SCREEN, [id number] 05: 59:00 Test Item Value Reference Range Comments TEST URINE (BEAKER) (test uftu=479) Negative POCT-GLUCOSE [id number] 05:46:00 Test Item Value Reference Range Comments POC-GLUCOSE METER (BEAKER) 140 mg/dL 70-[address] [facility] [address] [facility] (test hpus=2131) [facility] [address] CBC W/PLT COUNT & AUTO [id number] 05:46:00 Test Item Value Reference Range Comments WHITE BLOOD CELL COUNT (BEAKER) (test ghxn=967) 9.6 K/ L 3.5-10.5 RED BLOOD CELL COUNT (BEAKER) (test njuz=798) 5.00 M/ L 3.93-5.22 HEMOGLOBIN (BEAKER) (test drwz=021) 14.0 GM/DL 11.2-15.7 HEMATOCRIT (BEAKER) (test pidv=196) 42.1 % 34.1-44.9 MEAN CORPUSCULAR VOLUME (BEAKER) (test qjkd=499) 84.2 fL 79.4-94.8 MEAN CORPUSCULAR HEMOGLOBIN (BEAKER) (test 28.0 pg 25.6-32.2 fdqu=659) MEAN CORPUSCULAR HEMOGLOBIN CONC (BEAKER) (test 33.3 GM/DL 32.2-35.5 kwvp=442) RED CELL DISTRIBUTION WIDTH (BEAKER) (test 13.0 % 11.7-14.4 kisb=512) PLATELET COUNT (BEAKER) (test ijvb=198) 227 K/CU MM 150-450 MEAN PLATELET VOLUME (BEAKER) (test rsey=663) 11.8 fL 9.4-12.3 NUCLEATED RED BLOOD CELLS (BEAKER) (test 0 /100 WBC 0-0 yczj=436) NEUTROPHILS RELATIVE PERCENT (BEAKER) (test 52 % knvl=216) LYMPHOCYTES RELATIVE PERCENT (BEAKER) (test 38 % pmvu=026) MONOCYTES RELATIVE PERCENT (BEAKER) (test 6 % zwbf=557) EOSINOPHILS RELATIVE PERCENT (BEAKER) (test 3 % qmin=147) BASOPHILS RELATIVE PERCENT (BEAKER) (test 1 % amju=342) NEUTROPHILS ABSOLUTE COUNT (BEAKER) (test 5.03 K/ L 1.56-6.13 ctsu=627) LYMPHOCYTES ABSOLUTE COUNT (BEAKER) (test 3.62 K/ L 1.18-3.74 kbgg=520) MONOCYTES ABSOLUTE COUNT (BEAKER) (test 0.62 K/ L 0.24-0.36 skdh=169) EOSINOPHILS ABSOLUTE COUNT (BEAKER) (test 0.27 K/ L 0.04-0.36 ygvg=735) BASOPHILS ABSOLUTE COUNT (BEAKER) (test 0.05 K/ L 0.01-0.08 likq=068) IMMATURE GRANULOCYTES-RELATIVE PERCENT (BEAKER) 1 % 0-1 (test oqzn=4978) POCT-GLUCOSE [id number] 21:27:00 Test Item Value Reference Range Comments POC-GLUCOSE METER (BEAKER) 223 mg/dL 70-110 TESTED AT [address] (test cijw=8399) [place] [address] POCT-GLUCOSE [id number] 17:26:00 Test Item Value Reference Range Comments POC-GLUCOSE METER (BEAKER) 223 mg/dL 70-110 TESTED AT [address] (test mgdp=5996) [place] [address] BASIC METABOLIC [id number] 16:43:00 Test Item Value Reference Range Comments SODIUM (BEAKER) (test 139 meq/L 136-145 hqzp=155) POTASSIUM (BEAKER) (test 4.5 meq/L 3.5-5.1 Specimen slightly zfam=677) hemolyzed CHLORIDE (BEAKER) (test 102 meq/L 98-107 rmny=884) CO2 (BEAKER) (test 29 meq/L 22-29 dydo=025) BLOOD UREA NITROGEN 16 mg/dL 7-21 (BEAKER) (test xtcn=983) CREATININE (BEAKER) (test 0.76 mg/dL 0.57-1.25 Specimen slightly gnqo=915) hemolyzed GLUCOSE RANDOM (BEAKER) 217 mg/dL 70-105 (test fzzr=510) CALCIUM (BEAKER) (test 9.6 mg/dL 8.4-10.2 htoh=019) EGFR (BEAKER) (test 81 mL/min/1.73 sq m ESTIMATED GFR IS NOT yppi=6295) ACCURATE CREATININE CLEARANCE IN PREDICTING GLOMERULAR FILTRATION RATE. ESTIMATED GFR IS NOT APPLICABLE FOR DIALYSIS PATIENTS. POCT-GLUCOSE [id number] 09:06:00 Test Item Value Reference Range Comments POC-GLUCOSE METER (BEAKER) 265 mg/dL 70-110 TESTED AT [address] (test comf=4093) [place] [address] POCT-GLUCOSE [id number] 00:22:00 Test Item Value Reference Range Comments POC-GLUCOSE METER (BEAKER) 210 mg/dL 70-110 TESTED AT [address] (test fjlv=5473) [place] [address] POCT-GLUCOSE [id number] 20:27:00 Test Item Value Reference Range Comments POC-GLUCOSE METER (BEAKER) 235 mg/dL 70-110 TESTED AT [address] (test ohvb=9742) [place] [address] POCT-GLUCOSE [id number] 17:10:00 Test Item Value Reference Range Comments POC-GLUCOSE METER (BEAKER) 264 mg/dL 70-110 TESTED AT [address] (test aqhh=3061) [place] [address] POCT-GLUCOSE [id number] 16:00:00 Test Item Value Reference Range Comments POC-GLUCOSE METER (BEAKER) 242 mg/dL 70-110 TESTED AT [address] (test snwn=0372) [place] [address] POCT-GLUCOSE [id number] 08:54:00 Test Item Value Reference Range Comments POC-GLUCOSE METER (BEAKER) 224 mg/dL 70-110 TESTED AT [address] (test hjnc=3748) [place] [address] POCT-GLUCOSE [id number] 21:30:00 Test Item Value Reference Range Comments POC-GLUCOSE METER (BEAKER) 254 mg/dL 70-110 TESTED AT [address] (test uibj=7843) [place] [address] POCT-GLUCOSE [id number] 17:23:00 Test Item Value Reference Range Comments POC-GLUCOSE METER (BEAKER) 193 mg/dL 70-110 TESTED AT [address] (test tqzb=3491) [place] [address] POCT-GLUCOSE [id number] 11:53:00 Test Item Value Reference Range Comments POC-GLUCOSE METER (BEAKER) 179 mg/dL 70-110 TESTED AT [address] (test tzym=8774) [place] [address] [id number] 10:15:00 Test Item Value Reference Range Comments CORTISOL, TOTAL (BEAKER) (test hucs=1243) 4.7 ug/dL 3.7-19.4 POCT-GLUCOSE [id number] 08:07:00 Test Item Value Reference Range Comments POC-GLUCOSE METER (BEAKER) 184 mg/dL 70-110 TESTED AT [address] (test nrbb=6737) [place] [address] CT, BRAIN, WITHOUT [id number] 22:07:00FINAL REPORT CT Head without contrast CLINICAL [...] [place] Verified Date/Time: 06/20/2018 22:07:25 Reading Location: [address] Transitional Reading Room POCT-GLUCOSE [id number] 21:00:00 Test Item Value Reference Range Comments POC-GLUCOSE METER (BEAKER) 227 mg/dL 70-110 TESTED AT [address] (test qvuk=5799) [place] [address] POCT-GLUCOSE [id number] 16:57:00 Test Item Value Reference Range Comments POC-GLUCOSE METER (BEAKER) 216 mg/dL 70-110 TESTED AT [address] (test ueur=1527) [place] [address] POCT-GLUCOSE [id number] 13:11:00 Test Item Value Reference Range Comments POC-GLUCOSE METER (BEAKER) 198 mg/dL 70-110 TESTED AT [address] (test hsgi=2506) [place] [id number] POCT-GLUCOSE [id number] 07:47:00 Test Item Value Reference Range Comments POC-GLUCOSE METER (BEAKER) 213 mg/dL 70-110 TESTED AT [address] (test rkte=0678) [place] [address] BASIC METABOLIC [id number] 06:57:00 Test Item Value Reference Range Comments SODIUM (BEAKER) (test 138 meq/L 136-145 bvdz=592) POTASSIUM (BEAKER) (test 3.9 meq/L 3.5-5.1 sujo=950) CHLORIDE (BEAKER) (test 105 meq/L 98-107 bull=815) CO2 (BEAKER) (test 24 meq/L 22-29 jcxa=647) BLOOD UREA NITROGEN 12 mg/dL 7-21 (BEAKER) (test qxhe=668) CREATININE (BEAKER) (test 0.73 mg/dL 0.57-1.25 owft=860) GLUCOSE RANDOM (BEAKER) 192 mg/dL 70-105 (test prjp=832) CALCIUM (BEAKER) (test 8.8 mg/dL 8.4-10.2 kdno=286) EGFR (BEAKER) (test 85 mL/min/1.73 sq m ESTIMATED GFR IS NOT gmey=3058) ACCURATE CREATININE CLEARANCE IN PREDICTING GLOMERULAR FILTRATION RATE. ESTIMATED GFR IS NOT APPLICABLE FOR DIALYSIS PATIENTS. POCT-GLUCOSE [id number] 05:24:00 Test Item Value Reference Range Comments POC-GLUCOSE METER (BEAKER) 192 mg/dL 70-[address] [facility] [address] [facility] (test jrjg=8574) [facility] [address] [address], [place]ANGIO [id number] 01:03:00FINAL REPORT CLINICAL HISTORY: Stroke TECHNIQUE: Initially, [...] Verified Date/ Time: 06/20/2018 01:03:44 Reading Location: [address] Transitional Reading Room [facility], CAROTID, [id number] 01:03:00FINAL REPORT CLINICAL HISTORY: Stroke TECHNIQUE: Initially, [...] Verified Date/ Time: 06/20/2018 01:03:44 Reading Location: [address] Reading Room POCT-GLUCOSE [id number] 00:40:00 Test Item Value Reference Range Comments POC-GLUCOSE METER (BEAKER) 283 mg/dL 70-110 TESTED AT [address] (test dozx=6509) [facility] [address] POCT-GLUCOSE [id number] 21:21:00 Test Item Value Reference Range Comments POC-GLUCOSE METER (BEAKER) 343 mg/dL 70-110 TESTED AT [address] (test awie=2254) [facility] [address] SCREEN, [id number] 18:52:00 Test Item Value Reference Range Comments TEST URINE (BEAKER) (test idgj=020) Negative POCT-GLUCOSE [id number] 17:17:00 Test Item Value Reference Range Comments POC-GLUCOSE METER (BEAKER) 287 mg/dL 70-[address] [facility] [address] [facility] (test tgzu=6695) [facility] [address] [id number] 15:59:00 Test Item Value Reference Range Comments RPR SCREEN (BEAKER) (test fmdi=634) Nonreactive Nonreactive POCT-GLUCOSE [id number] 15:07:00 Test Item Value Reference Range Comments POC-GLUCOSE METER (BEAKER) 323 mg/dL 70-110 TESTED AT [address] (test hmbz=3077) [place] [id number] T4, [id number] 13:11:00 Test Item Value Reference Range Comments FREE T4 (BEAKER) (test qehl=178) 0.89 ng/dL 0.70-1.48 HIV-1 ANTIGEN WITH HIV-1/2 [id number] 13:11:00 Test Item Value Reference Range Comments HIV-1 ANTIGEN WITH HIV 1\\T\\2 ANTIBODY (2) Nonreactive Nonreactive (BEAKER) (test mckm=1269) RAPID DRUG SCREEN, [id number] 12:47:00 Test Item Value Reference Range Comments BARBITURATE URINE (BEAKER) (test giij=670) Negative Negative BENZODIAZEPINE SCREEN URINE (BEAKER) (test Negative Negative ylaj=206) COCAINE (METAB.) SCREEN (BEAKER) (test shyd=2141) Negative Negative METHADONE SCREEN (BEAKER) (test gxbe=8263) Negative Negative OPIATE SCREEN URINE (BEAKER) (test yncg=913) Negative Negative CANNABINOID SCREEN URINE (BEAKER) (test riuk=607) Negative Negative AMPH/METHAMPH SCREEN (BEAKER) (test ipcd=3838) Negative Negative PHENCYCLIDINE SCREEN URINE (BEAKER) (test gtbn=424) Negative Negative OXYCODONE SCREEN URINE (BEAKER) (test pmlt=1833) Negative Negative DRUG CUTOFF CONC.Cocaine 300 ng/mL Cannabinoid 50 ng/mL Benzodiazepine 200 ng/mLBarbiturate 200 ng/ mLPhencyclidine 25 ng/mLOpiate 300 ng/mLMethadone 300 ng/mLAmphetamine/ 1000 ng/mL MethamphetamineOxycodone 300 ng/mLThis assay provides an unconfirmed qualitative test result for the clinical management of patients in emergency situations. Chain of custody not maintained. Some qzxn-dlt-cfuzpsq medications, as well as adulterants, may cause inaccurate results. Clinical correlation should be applied. A more comprehensive drug screen or confirmation of a detected drug may be performed upon request.POCT-GLUCOSE [id number] 12:37:00 Test Item Value Reference Range Comments POC-GLUCOSE METER (BEAKER) 292 mg/dL 70-[address] [facility] [address] [facility] (test zrmk=8902) [facility] [address] HEMOGLOBIN [id number] 12:35:00 Test Item Value Reference Range Comments HEMOGLOBIN A1C (BEAKER) (test zdsf=717) 7.9 % 4.3-6.1 OSMOLALITY, [id number] 12:34:00 Test Item Value Reference Range Comments OSMOLALITY, SERUM (BEAKER) (test qqlt=155) 310 mOsm/kg 275-295 C-REACTIVE [id number] 12:28:00 Test Item Value Reference Range Comments C-REACTIVE PROTEIN (BEAKER) (test bfly=722) 0.81 mg/dL 0.00-0.50 OSMOLALITY, [id number] 12:22:00 Test Item Value Reference Range Comments OSMOLALITY URINE (BEAKER) (test bbta=877) 247 mOsm/kg 40-1,400 CBC W/PLT COUNT & AUTO [id number] 12:14:00 Test Item Value Reference Range Comments WHITE BLOOD CELL COUNT (BEAKER) (test rghj=301) 15.1 K/ L 3.5-10.5 RED BLOOD CELL COUNT (BEAKER) (test ykij=628) 5.15 M/ L 3.93-5.22 HEMOGLOBIN (BEAKER) (test dctm=792) 14.1 GM/DL 11.2-15.7 HEMATOCRIT (BEAKER) (test thwu=474) 42.3 % 34.1-44.9 MEAN CORPUSCULAR VOLUME (BEAKER) (test lbtt=692) 82.1 fL 79.4-94.8 MEAN CORPUSCULAR HEMOGLOBIN (BEAKER) (test 27.4 pg 25.6-32.2 rlsj=273) MEAN CORPUSCULAR HEMOGLOBIN CONC (BEAKER) (test 33.3 GM/DL 32.2-35.5 czmy=781) RED CELL DISTRIBUTION WIDTH (BEAKER) (test 12.9 % 11.7-14.4 igfz=856) PLATELET COUNT (BEAKER) (test zzut=459) 278 K/CU MM 150-450 MEAN PLATELET VOLUME (BEAKER) (test jeey=658) 11.5 fL 9.4-12.3 NUCLEATED RED BLOOD CELLS (BEAKER) (test 0 /100 WBC 0-0 qimu=585) NEUTROPHILS RELATIVE PERCENT (BEAKER) (test 87 % vmyn=652) LYMPHOCYTES RELATIVE PERCENT (BEAKER) (test 10 % ibtg=000) MONOCYTES RELATIVE PERCENT (BEAKER) (test 3 % caem=407) EOSINOPHILS RELATIVE PERCENT (BEAKER) (test 0 % snkh=840) BASOPHILS RELATIVE PERCENT (BEAKER) (test 0 % irsj=423) NEUTROPHILS ABSOLUTE COUNT (BEAKER) (test 13.06 K/ L 1.56-6.13 wvol=921) LYMPHOCYTES ABSOLUTE COUNT (BEAKER) (test 1.51 K/ L 1.18-3.74 fixh=343) MONOCYTES ABSOLUTE COUNT (BEAKER) (test 0.38 K/ L 0.24-0.36 hhlw=144) EOSINOPHILS ABSOLUTE COUNT (BEAKER) (test 0.00 K/ L 0.04-0.36 msed=671) BASOPHILS ABSOLUTE COUNT (BEAKER) (test 0.02 K/ L 0.01-0.08 rnmr=421) IMMATURE GRANULOCYTES-RELATIVE PERCENT (BEAKER) 1 % 0-1 (test madg=7254) POCT-GLUCOSE [id number] 10:30:00 Test Item Value Reference Range Comments POC-GLUCOSE METER (BEAKER) 341 mg/dL 70-110 TESTED AT [address] (test dere=8816) [facility] [address] [id number] 06:17:00 Test Item Value Reference Range Comments PROLACTIN (BEAKER) (test ftuh=429) 23.34 ng/mL 5.18-26.53 POCT-GLUCOSE [id number] 05:55:00 Test Item Value Reference Range Comments POC-GLUCOSE METER (BEAKER) 285 mg/dL 70-110 TESTED AT [address] (test texg=6483) [facility] [address] MR, BRAIN, [id number] 02:25:00Pituitary protocolCr 0.6FINAL REPORT MRI brain with and without contrast Comparison: None. 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 Discussion: Multiplanar MR imaging of the brain and sella was provided [id number] IV gadolinium administration using T1, T2, FLAIR, [...] MDReport Verified Date/Time: 06/19/2018 02:25:15 Reading Location: [address] Body Reading Room TSH/FREE T4 IF [id number] 00:26:00 Test Item Value Reference Range Comments THYROID STIMULATING HORMONE (BEAKER) (test 0.41 uIU/mL 0.35-4.94 mdkn=360) BASIC METABOLIC [id number] 00:07:00 Test Item Value Reference Range Comments SODIUM (BEAKER) (test 136 meq/L 136-145 rtjl=430) POTASSIUM (BEAKER) (test 4.0 meq/L 3.5-5.1 btnl=969) CHLORIDE (BEAKER) (test 103 meq/L 98-107 rchf=385) CO2 (BEAKER) (test 20 meq/L 22-29 duob=746) BLOOD UREA NITROGEN 11 mg/dL 7-21 (BEAKER) (test bzkp=932) CREATININE (BEAKER) (test 0.84 mg/dL 0.57-1.25 novn=711) GLUCOSE RANDOM (BEAKER) 357 mg/dL 70-105 (test jwes=619) CALCIUM (BEAKER) (test 9.0 mg/dL 8.4-10.2 tkri=853) EGFR (BEAKER) (test 72 mL/min/1.73 sq m ESTIMATED GFR IS NOT dxpr=1655) ACCURATE CREATININE CLEARANCE IN PREDICTING GLOMERULAR FILTRATION RATE. ESTIMATED GFR IS NOT APPLICABLE FOR DIALYSIS PATIENTS. URINALYSIS W/ REFLEX URINE [id number] 23:13:00 Test Item Value Reference Range Comments COLOR (BEAKER) (test fusi=681) Yellow CLARITY (BEAKER) (test bcml=748) Clear SPECIFIC GRAVITY UA (BEAKER) (test kilm=274) 1.011 1.001-1.035 PH UA (BEAKER) (test ophg=231) 5.0 5.0-8.0 PROTEIN UA (BEAKER) (test zsqc=127) Negative Negative GLUCOSE UA (BEAKER) (test msdt=950) >1000 mg/dL Negative KETONES UA (BEAKER) (test ldju=427) 20 mg/dL Negative BILIRUBIN UA (BEAKER) (test gxui=793) Negative Negative BLOOD UA (BEAKER) (test mbvy=309) Negative Negative NITRITE UA (BEAKER) (test qmzo=873) Negative Negative LEUKOCYTE ESTERASE UA (BEAKER) (test rvnh=651) Negative Negative UROBILINOGEN UA (BEAKER) (test eobf=819) 0.2 mg/dL 0.2-1.0 RBC UA (BEAKER) (test hxkq=928) < /HPF WBC UA (BEAKER) (test zkvw=497) < /HPF SQUAMOUS EPITHELIAL (BEAKER) (test ziti=838) < /HPF SOURCE(BEAKER) (test vqnb=5872)
--- OUTSIDE RECORDS SUMMARY | 2018-10-01 12:00 | XMS REPORT ---
:1970 Author Organization eClinicalWorks Care Team Providers Name Role Phone Neeru Logan Provider Role Unavailable Allergies No Known Allergies Problems Problem Type Condition Code Onset Dates Condition Status Problem Anxiety F41.9 Active Problem Hypothyroidism E03.9 Active Problem Seasonal allergic rhinitis due to J30.1 Active pollen Problem Type 2 diabetes mellitus without E11.9 Active complication, without long-term current use of insulin Problem Fatty liver K76.0 Active Problem Hyperlipidemia E78.5 Active Problem Hypertension I10 Active Problem Migraines G43.909 Active Problem Allergic rhinitis, unspecified J30.9 Active Medications Medication Code Code Instructions Start End Date Status Dosage System Date Losartan [facility] 53851445344 50-12.5 MG Active 1 tablet Potassium-HCTZ Orally Once a day Results No Known Results Summary Purpose eClinicalWorks Submission
--- OUTSIDE RECORDS SUMMARY | 2018-10-01 12:00 | XMS REPORT ---
[...] Date Date Atorvastatin Calcium [facility] 72321691307 10 MG Oral Active TAKE 1 TABLET BY MOUTH AT BEDTIME. ProAir HFA [facility] 33810384077 108 (90 Base) Active USE 1-2 MCG/ACT PUFFS BY Inhalation MOUTH EVERY 4-6 HOURS Levothyroxine Sodium ND 97381912318 88 MCG Oral Active TAKE 1 TABLET BY MOUTH EVERY MORNING Valsartan-Hydrochlor ND 45586726166 80-12.5 MG Active TAKE 1 othiazide Oral TABLET BY MOUTH EVERY DAY Benzonatate ND 10876214726 200 MG Oral Active TAKE ONE CAPSULE BY MOUTH 3 TIMES A DAY NEEDED FOR COUGH MethylPREDNISolone ND 57218004207 4 MG Oral Active TAKE 6 TABLETS ON DAY 1 DIRECTED ON PACKAGE AND DECREASE BY 1 TAB EACH DAY FOR A TOTAL OF 6 DAYS GlyBURIDE ND 48872903810 5 MG Orally Iraida Active 1 tablet Once a day 2017 breakfast or the first main meal of the day MetFORMIN HCl ER ND 56656379318 750 MG Oral Active TAKE 1 TABLET BY MOUTH 2 TIMES DAILY BEFORE BREAKFAST AND DINNER. Results No Known Results Summary Purpose eClinicalWorks Submission
--- OUTSIDE RECORDS SUMMARY | 2018-10-01 12:00 | XMS REPORT ---
:1970 Author Organization eClinicalWorks Care Team Providers Name Role Phone Rowan, Neeru Provider Role Unavailable Allergies No Known [...]
--- OUTSIDE RECORDS SUMMARY | 2018-10-01 12:00 | XMS REPORT ---
[...] End Date Status Dosage System Date Losartan [facility] 24550414260 50-12.5 MG February 12, Active 1 tablet Potassium-HCTZ Orally Once a 2017 day Results No Known Results Summary Purpose eClinicalWorks Submission
--- OUTSIDE RECORDS SUMMARY | 2018-10-01 12:00 | XMS REPORT ---
[...] Status Dosage System Date Date Diflucan [facility] 63285472342 150 MG Orally Feb 20Feb Active 1 tablet Once a day 2017 Nitrofurantoin ND 55279788299 100 MG Orally Feb 20Feb Active 1 capsule Macrocrystal BID 2017 12, with food 2018 or milk GlyBURIDE ND 83991764528 5 MG Orally January 21, Active 1 tablet Once a day 2017 with breakfast or the first main meal of the day Levothyroxine ND 18156541768 88 MCG Oral Active TAKE 1 Sodium TABLET BY MOUTH EVERY MORNING Losartan ND 79702863559 50-12.5 MG February 12, Active 1 tablet Potassium-HCTZ Orally Once a 2018 day Valsartan-Hydroch ND 96147677719 80-12.5 MG Oral Active TAKE 1 lorothiazide TABLET BY MOUTH EVERY DAY Results Name Result Date Reference Range Unit Abnormality Flag THINPREP TIS PAP AND HPV mRNA E6/E7, CHLAMYDIA/N.GONORRHOEAE URINALYSIS AUTO W/O SCOPE (69806) ----PROTEIN N [id number] ----pH 5.5 20180220 ----NIT P [id number] ----CONCEPCION 1+ [id number] ----URO 1.0 [id number] ----SPECIFIC GRAVITY 1.015 [id number] ----BLO TR [id number] ----BILIRUBIN N [id number] ----KETONES N [id number] ----GLUCOSE N [id number] Summary Purpose eClinicalWorks Submission
--- OUTSIDE RECORDS SUMMARY | 2018-10-01 12:00 | XMS REPORT ---
:1970 Author Organization eClinicalWorks Care Team Providers Name Role Phone Sophie Logany Provider Role Unavailable Allergies, Adverse Reactions, Alerts [...] Anxiety F41.9 Active Problem Hypothyroidism E03.9 Active Assessment Type 2 diabetes mellitus without E11.9 Active complication, without long-term current use of insulin Assessment Hypertension I10 Active Problem Seasonal allergic rhinitis due to J30.1 Active pollen Problem Type 2 diabetes mellitus without E11.9 Active complication, without long-term current use of insulin Problem Fatty liver K76.0 Active Problem Hyperlipidemia E78.5 Active Problem Hypertension I10 Active Problem Migraines G43.909 Active Problem Allergic rhinitis, unspecified J30.9 Active Medications Medication Code Code Instructions Start End Status Dosage System Date Date Hydrochlorothiazide [facility] 58792524283 12.5 MG Orally Jun 07, Active 1 tablet Once a day 2018 in the morning Levothyroxine Sodium ND 92479276171 88 MCG Oral Active TAKE 1 TABLET BY MOUTH EVERY MORNING Metformin HCl [facility] [address]-90 500 MG Orally Active 1 1/2 bid tablets with a meal Amlodipine Besylate ND 74076824839 10 MG Orally Active 1 tablet Once a day Hydrocortisone ND 97793836021 10 MG Orally Active 1 tablet every 12 hrs with food or milk Losartan [facility] 22322730949 50-12.5 MG Active 1 tablet Potassium-HCTZ Orally Once a day GlyBURIDE [facility] [address]-56 5 MG Orally Active 1/2 tablet BID with breakfast or the first main meal of the day Losartan Potassium [facility] 69230968411 50 MG Orally Active 1 tablet Once a day Results No Known Results Summary Purpose eClinicalWorks Submission
[2018-10-01] MEDS ORDERED: MEPERIDINE HCL 25 MG/0.5 ML ONE (13:22)
--- NOTE | 2018-10-01 14:36 | ER ---
Nurse's Notes [facility] Name: Chantal Stout Age: 48 yrs Sex: Female : 1970 Arrival Date: 10/01/2018 Time: 11:57 Bed 27 Private MD: Diagnosis: Acute sinusitis Presentation: 10/01 12:07 Presenting complaint: Sinus congestion, sinus drainage, nonproductive cough, nausea, hb body aches, chills, fever, and body aches x 4 days. Reports headache and photosensitivity today has become unbearable. TMAX 102. Transition of care: patient was not received from another setting of care. Onset of symptoms was September 27, 2018. Risk Assessment: Do you want to hurt yourself or someone else? Patient reports no desire to harm self or others. Care prior to arrival: None. 12:07 Method Of Arrival: Ambulatory hb 12:07 Acuity: NOÉ 3 hb Historical: - Allergies: 12:11 Bactrim; hb 12:11 Cephalexin; hb 12:11 Codeine; hb 12:11 Iodine; hb 12:11 Levaquin; hb 12:11 Sulfa (Sulfonamide Antibiotics); hb - Home Meds: 12:11 amlodipine 10 mg tab 1 tab once daily [Active]; glyburide 5 mg Oral tab 1 tab once hb daily [Active]; hydrocortisone 10 mg Oral tab 1 tab 2 times per day [Active]; levothyroxine 75 mcg tab 1 tab once daily [Active]; losartan 50 mg Oral tab 1 tab once daily [Active]; metformin 750 mg Oral Tb24 1 tab twice a day [Active]; omeprazole 20 mg Oral cpDR 1 cap once daily [Active]; Xhance [Active]; - PMHx: 12:11 Anemia; Asthma; Diabetes - NIDDM; Hypertension; Hypothyroidism; pituitary tumor- hb surgically removed Jun 24; - PSHx: 12:11 Tonsillectomy; Pituitary tumor; cervical tumor removal; hb - Immunization history:: Adult Immunizations up to date. - Social history:: Smoking status: Patient/guardian denies using tobacco. - Ebola Screening: : No symptoms or risks identified at this time. - Family history:: not pertinent. - Hospitalizations: : No recent hospitalization is reported. Screenin:55 Abuse screen: Denies threats or abuse. Nutritional screening: No deficits noted. em Tuberculosis screening: No symptoms or risk factors identified. Fall Risk None identified. Assessment: 12:55 General: Appears in no apparent distress. uncomfortable, Behavior is calm, cooperative, em Reports chills for 1-2 days, fever for 1-2 days. Pain: Complains of pain in right eye, right cheek, left cheek and left eye Pain currently is 7 out of 10 on a pain scale. Pain began 2-3 days ago. Neuro: Level of Consciousness is awake, alert, obeys commands, Oriented to person, place, time, situation, Manager [employer] are equal bilaterally Moves all extremities. Gait is steady, Speech is normal, Facial symmetry appears normal, Reports blurred vision dizziness, headache Denies difficulty swallowing. Cardiovascular: Capillary refill < 3 seconds Patient's skin is warm and dry. Respiratory: Airway is patent Respiratory effort is even, unlabored, Respiratory pattern is regular, symmetrical, Breath sounds are clear bilaterally. GI: Patient currently denies nausea, vomiting. EENT: Reports nasal congestion since Sunday. Derm: Skin is intact, is healthy with good turgor, Skin is pink, warm \T\ dry. Musculoskeletal: Range of motion: intact in all extremities. 12:55 Reassessment: I agree with assessment completed by Castro Canales LVN . aa5 Vital Signs: 12:09 BP 162 / 102; Pulse 89; Resp 16; Temp 98.2; Pulse Ox 100% on R/A; Pain 10/10; hb 13:01 BP 142 / 93; Pulse 88; Resp 18; Pulse Ox 97% on R/A; Pain 7/10; em 14:19 BP 135 / 89; Pulse 84; Resp 18; Pulse Ox 99% on R/A; Pain 4/10; em [place] Coma Score: 14:31 Eye Response: spontaneous(4). Verbal Response: oriented(5). Motor Response: obeys rn commands(6). Total: 15. ED Course: 11:57 Patient arrived in ED. as 12:09 Triage completed. hb 12:12 Arm band placed on. hb 12:47 Castro Canales LVN is Primary Nurse. em 12:52 Ranjan Mckoy MD is Attending Physician. rn 12:55 Patient has correct armband on for positive identification. Placed in gown. Bed in low em position. Call light in reach. Adult w/ patient. Pulse ox on. NIBP on. 14:44 No provider procedures requiring assistance completed. Patient did not have IV access em during this emergency room visit. Administered Medications: 13:24 Drug: Demerol 25 mg Route: IM; Site: right deltoid; em 14:10 Follow up: Response: No adverse reaction; Pain is decreased em Outcome: 14:36 Discharge ordered by . rn 14:45 Discharged to home ambulatory, with family. em 14:45 Condition: good 14:45 Discharge instructions given to patient, family, Instructed on discharge instructions, follow up and referral plans. medication usage, Demonstrated understanding of instructions, follow-up care, medications, Prescriptions given X 2. 14:45 Patient left the ED. em Signatures: Castro Canales, LILA PROSPECTING OBSERVER em Katlyn Moore Roman, MD MD rn Calderon, Audri, RN RN aa5 Mady Schuler RN RN
--- NOTE | 2018-10-01 14:36 | EDPHYS ---
Physician Documentation [facility] Name: Chantal Stout Age: 48 yrs Sex: Female : 1970 Arrival Date: 10/01/2018 Time: 11:57 Bed 27 Private MD: ED Physician Ranjan Mckoy HPI: 10/01 14:31 This 48 yrs old Female presents to ER via Ambulatory with complaints of rn Headache, Fever, Sinus Congestion. 14:31 The patient complains of pain to the forehead. The patient describes the headache as rn aching. Onset: The symptoms/episode began/occurred yesterday. Associated signs and symptoms: Pertinent positives: sinus congestion, Pertinent negatives: altered mental status, neck stiffness, rash. Severity of symptoms: At its worst the pain was mild, in the emergency department the pain is unchanged. The patient has experienced similar episodes in the past. [place] [employer] [facility], multiple people sick, now having subjective fevers, chills, sinus pressure, headache, lost her voice yesterday, + mild cough.. Historical: - Allergies: 12:11 Bactrim; hb 12:11 Cephalexin; hb 12:11 Codeine; hb 12:11 Iodine; hb 12:11 Levaquin; hb 12:11 Sulfa (Sulfonamide Antibiotics); hb - Home Meds: 12:11 amlodipine 10 mg tab 1 tab once daily [Active]; glyburide 5 mg Oral tab 1 tab once hb daily [Active]; hydrocortisone 10 mg Oral tab 1 tab 2 times per day [Active]; levothyroxine 75 mcg tab 1 tab once daily [Active]; losartan 50 mg Oral tab 1 tab once daily [Active]; metformin 750 mg Oral Tb24 1 tab twice a day [Active]; omeprazole 20 mg Oral cpDR 1 cap once daily [Active]; Xhance [Active]; - PMHx: 12:11 Anemia; Asthma; Diabetes - NIDDM; Hypertension; Hypothyroidism; pituitary tumor- hb surgically removed Jun 24; - PSHx: 12:11 Tonsillectomy; Pituitary tumor; cervical tumor removal; hb - Immunization history:: Adult Immunizations up to date. - Social history:: Smoking status: Patient/guardian denies using tobacco. - Ebola Screening: : No symptoms or risks identified at this time. - Family history:: not pertinent. - Hospitalizations: : No recent hospitalization is reported. ROS: 14:31 Constitutional: + fever/chills Eyes: Negative for injury, pain, redness, and discharge, rn Neck: Negative for injury, pain, and swelling, Cardiovascular: Negative for chest pain, palpitations, and edema, Respiratory: Negative for shortness of breath, wheezing, and pleuritic chest pain, Abdomen/GI: Negative for abdominal pain, vomiting, diarrhea, and constipation, MS/Extremity: Negative for injury and deformity, Skin: Negative for injury, rash, and discoloration, Neuro: + headache, no focal weakness/numbness Exam: 14:31 Constitutional: This is a well developed, well nourished patient who is awake, alert, rn and in no acute distress. Head/Face: Normocephalic, atraumatic. Eyes: Pupils equal round and reactive to light, extra-ocular motions intact. Lids and lashes normal. Conjunctiva and sclera are non-icteric and not injected. Cornea within normal limits. Periorbital areas with no swelling, redness, or edema. ENT: Mild pharyngeal erythema, weak voice, no stridor Neck: Trachea midline, no thyromegaly or masses palpated, and no cervical lymphadenopathy. Supple, full range of motion without nuchal rigidity, or vertebral point tenderness. No Meningismus. Respiratory: No increased work of breathing, no retractions or nasal flaring. Skin: Warm, dry MS/ Extremity: Pulses equal, no cyanosis. Neuro: Awake and alert, GCS 15, oriented to person, place, time, and situation. Cranial nerves II-XII grossly intact. Motor strength 5/5 in all extremities. Sensory grossly intact. Cerebellar exam normal. Normal gait. Vital Signs: 12:09 BP 162 / 102; Pulse 89; Resp 16; Temp 98.2; Pulse Ox 100% on R/A; Pain 10/10; hb 13:01 BP 142 / 93; Pulse 88; Resp 18; Pulse Ox 97% on R/A; Pain 7/10; em 14:19 BP 135 / 89; Pulse 84; Resp 18; Pulse Ox 99% on R/A; Pain 4/10; em [place] Coma Score: 14:31 Eye Response: spontaneous(4). Verbal Response: oriented(5). Motor Response: obeys rn commands(6). Total: 15. MDM: 12:52 Patient medically screened. rn 14:31 Differential diagnosis: sinusitis, tension headache. Data reviewed: vital signs, nurses rn notes, lab test result(s), and as a result, I will discharge patient. Counseling: I had a detailed discussion with the patient and/or guardian regarding: the historical points, exam findings, and any diagnostic results supporting the discharge/admit diagnosis, lab results, the need for outpatient follow up, to return to the emergency department if symptoms worsen or persist or if there are any questions or concerns that arise at home. Special discussion: I discussed with the patient/guardian in detail that at this point there is no indication for admission to the hospital. It is understood, however, that if the symptoms persist or worsen the patient needs to return immediately for re-evaluation. 10/01 12:59 Order name: Strep; Complete Time: 14:04 rn 10/01 12:59 Order name: Flu; Complete Time: 14:04 rn 10/01 13:23 Order name: Throat Culture EDMS Administered Medications: 13:24 Drug: Demerol 25 mg Route: IM; Site: right deltoid; em 14:10 Follow up: Response: No adverse reaction; Pain is decreased em Disposition: 10/01/18 14:36 Discharged to Home. Impression: Acute sinusitis. - Condition is Stable. - Discharge Instructions: Sinusitis, Adult. - Prescriptions for Amoxicillin 875 mg Oral Tablet - take 1 tablet by ORAL route every 12 hours for 10 days; 20 tablet. - Medication Reconciliation Form, Thank You Letter, Antibiotic Education, Prescription Opioid Use form. - Follow up: Private Physician; When: As needed; Reason: Recheck today's complaints, Re-evaluation by your physician. - Problem is new. - Symptoms have improved. Signatures: Dispatcher [employer] EDMS Castro Canales, PARTS CLERK PARTS CLERK Ranjan Bo MD MD rn Baxter, Heather, RN RN Corrections: (The following items were deleted from the chart) 14:45 14:36 10/01/2018 14:36 Discharged to Home. Impression: Acute sinusitis. Condition is em Stable. Forms are Medication Reconciliation Form, Thank You Letter, Antibiotic Education, Prescription Opioid Use. Follow up: Private Physician; When: As needed; Reason: Recheck today's complaints, Re-evaluation by your physician. Problem is new. Symptoms have improved. rn
[2018-10-01 14:56] VITALS: TEMP 98.2
[2018-10-01 14:58] VITALS: BP 135/89; O2SAT 99
== END 2018-10-01 14:45 | disposition home or self-care (01) ==
LOC: ER 11:55
DX: J01.90 Acute sinusitis, unspecified (principal); D64.9 Anemia, unspecified; J45.909 Unspecified asthma, uncomplicated; E11.9 Type 2 diabetes mellitus without complications; I10 Essential (primary) hypertension; E03.9 Hypothyroidism, unspecified; Z79.84 Long term (current) use of oral hypoglycemic drugs; Z88.1 Allergy status to other antibiotic agents; Z88.5 Allergy status to narcotic agent; Z88.2 Allergy status to sulfonamides
CPT/HCPCS: 87070; 87081; 87804; 96372; 99283; J2175

== ENCOUNTER 2018-10-13 11:24 | Emergency (ER) | payer BC ==
--- OUTSIDE RECORDS SUMMARY | 2018-10-13 11:39 | XMS REPORT | Clinical Summary ---
:[address] [facility] Address [address] [place] [address] Care Team Providers Name Role Phone Pcp, [...] packet by 3 packet 5 06/25/2018 Active bxfml-hapwpq-pvbinf Nasal route 2 bottle (NEILMED (two) times [...] MD Mezrahi, Maria, MD 06/18/2018 Travel after 10/12/2017 Family History Medical History Relation Name Comments [...] Taken Blood Pressure 125/71 06/27/2018 12:09 PM [facility] Pulse 63 06/27/2018 12:09 PM [facility] Temperature 36.2 C (97.1 F) 06/27/2018 12:09 PM [facility] Respiratory Rate 18 06/27/2018 12:09 PM [facility] Oxygen Saturation 97% 06/27/2018 12:09 PM [facility] Inhaled Oxygen Concentration - - Weight 122.5 kg (270 lb) 06/18/2018 9:00 PM [facility] Height 162.6 cm (5' 4") 06/18/2018 9:00 PM [facility] Body Mass Index 46.35 06/18/2018 9:00 PM [facility] Plan of Treatment Date Type Specialty Care Team Description 11/15/2018 Appointment Radiology Alex Ruano MD [address] [address] [phone] Implants Implanted Type Area Field Crop Harvest Contractor Device Shelf Model / Identifier Expiration Serial / Date Lot Sealant Durasl Spine 5ml [id number] - [id number] Cement/Fi N/A: INTE[employer]RA LIFESCI 10/21/2019 [id number] / Implanted: Qty: 1 on 06/24/2018 by Alex Ruano MD ller/Valentine Head / sive [id number] Formerly [facility] Full Strlprep 10ml [id number] - [id number] Cement/Fi N/A: FUNES: BIOSCI 11/18/2019 [id number] / Implanted: Qty: 1 on 06/24/2018 by Alex Ruano MD ller/[employer] / sive [id number] Graft Matrix Dura 1x3 [id number] - [id number] Neuro N/A: [employer]IC 02/20/2020 [id number] / Implanted: Qty: 1 on 06/24/2018 by Alex Ruano MD Head SURGICAL / NAVIGATION [id number] Procedures Procedure Name Priority Date/Time Associated Comments Diagnosis INTRAOPERATIVE PATH 06/29/2018 1:00 REPORT - SCAN PM [facility] RHYTHM STRIP - SCAN 06/29/2018 1:00 PM [facility] POCT-GLUCOSE METER Routine 06/27/2018 12:07 Results for this PM [facility] procedure are in the results section. POCT-GLUCOSE METER Routine 06/27/2018 7:41 Results for this AM [facility] procedure are in the results section. CBC W/PLT COUNT & AUTO Routine 06/27/2018 5:56 Results for this DIFFERENTIAL AM [facility] procedure are in the results section. BASIC METABOLIC PANEL Routine 06/27/2018 5:56 Results for this (7) AM [facility] procedure are in the results section. CBC W/PLT COUNT & AUTO Routine 06/27/2018 5:56 Results for this DIFFERENTIAL AM [facility] procedure are in the results section. CBC W/PLT COUNT & AUTO STAT 06/26/2018 11:18 Results for this DIFFERENTIAL PM [facility] procedure are in the results section. CBC W/PLT COUNT & AUTO STAT 06/26/2018 11:18 Results for this DIFFERENTIAL PM [facility] procedure are in the results section. BASIC METABOLIC PANEL STAT 06/26/2018 11:18 Results for this (7) PM [facility] procedure are in the results section. SODIUM, RANDOM URINE STAT 06/26/2018 11:11 Results for this PM [facility] procedure are in the results section. CT BRAIN WITHOUT IV STAT 06/26/2018 10:25 Results for this CONTRAST PM [facility] procedure are in the results section. POCT-GLUCOSE METER Routine 06/26/2018 9:01 Results for this PM [facility] procedure are in the results section. CBC W/PLT COUNT & AUTO Routine 06/26/2018 1:55 Results for this DIFFERENTIAL PM [facility] procedure are in the results section. BASIC METABOLIC PANEL Routine 06/26/2018 1:55 Results for this (7) PM [facility] procedure are in the results section. CBC W/PLT COUNT & AUTO Routine 06/26/2018 1:55 Results for this DIFFERENTIAL PM [facility] procedure are in the results section. POCT-GLUCOSE METER Routine 06/26/2018 1:33 Results for this PM [facility] procedure are in the results section. POCT-GLUCOSE METER Routine 06/26/2018 12:06 Results for this PM [facility] procedure are in the results section. POCT-GLUCOSE METER Routine 06/25/2018 4:10 Results for this PM [facility] procedure are in the results section. POCT-GLUCOSE METER Routine 06/25/2018 12:02 Results for this PM [facility] procedure are in the results section. POCT-GLUCOSE METER Routine 06/25/2018 8:02 Results for this AM [facility] procedure are in the results section. OSMOLALITY, URINE STAT 06/25/2018 4:23 Results for this AM [facility] procedure are in the results section. SPECIFIC GRAVITY, STAT 06/25/2018 4:23 Results for this URINE AM [facility] procedure are in the results section. POCT-GLUCOSE METER Routine 06/24/2018 9:56 Results for this PM [facility] procedure are in the results section. POCT-GLUCOSE METER Routine 06/24/2018 4:57 Results for this PM [facility] procedure are in the results section. BASIC METABOLIC PANEL STAT 06/24/2018 4:50 Results for this (7) PM [facility] procedure are in the results section. POCT-GLUCOSE METER Routine 06/24/2018 11:09 Results for this AM [facility] procedure are in the results section. POCT-GLUCOSE METER Routine 06/24/2018 9:38 Results for this AM [facility] procedure are in the results section. TISSUE EXAM AP Routine 06/24/2018 8:02 Results for this AM [facility] procedure are in the results section. ENDOSCOPIC SINUS 06/24/2018 7:00 Pituitary adenoma SURGERY,REPAIR CSF AM [facility] (HCC) LEAK Special Needs (STEALTH NAVIGATION, LUMBAR DRAIN SET, LANDMARK CT SCAN ON ) TURBINECTOMY,NASAL 06/24/2018 7:00 AM [facility] Pituitary adenoma (HCC) Special Needs (STEALTH NAVIGATION, LUMBAR DRAIN SET, LANDMARK CT SCAN ON ) ENDOSCOPIC SINUS 06/24/2018 7:00 AM [facility] Pituitary adenoma SURGERY,ETHMOIDECTOMY W/ (HCC) SPHENOIDOTOMY Special Needs (STEALTH NAVIGATION, LUMBAR DRAIN SET, LANDMARK CT SCAN ON ) PROCEDURE W/ STEALTH 06/24/2018 7:00 AM [facility] Pituitary adenoma (HCC) Special Needs (STEALTH NAVIGATION, LUMBAR DRAIN SET, LANDMARK CT SCAN ON ) ENDOSCOPIC CRANIOTOMY,REMOVAL 06/24/2018 7:00 AM [facility] Pituitary adenoma ( HCC) TRANSSPHENOIDAL PITUITARY TUMOR Special Needs (STEALTH NAVIGATION, LUMBAR DRAIN SET, LANDMARK CT SCAN ON ) POCT-GLUCOSE METER Routine 06/24/2018 5:42 AM [facility] SCREEN, URINE STAT 06/24/2018 5:16 AM [facility] BASIC METABOLIC PANEL (7) Routine 06/24/2018 5:16 AM [facility] CBC W/PLT COUNT & AUTO Routine 06/24/2018 5:07 AM [facility] Results for this DIFFERENTIAL procedure are in the results section. PT/APTT Routine 06/24/2018 5:07 AM [facility] CBC W/PLT COUNT & AUTO Routine 06/24/2018 5:07 AM [facility]ER Results for this DIFFERENTIAL procedure are in the results section. POCT-GLUCOSE METER Routine 06/23/2018 9:21 PM [facility]ER POCT-GLUCOSE METER Routine 06/23/2018 4:31 PM [facility] BASIC METABOLIC PANEL (7) Routine 06/23/2018 4:13 PM [facility]ER POCT-GLUCOSE METER Routine 06/23/2018 8:30 AM [facility] POCT-GLUCOSE METER Routine 06/22/2018 11:34 PM [facility]ER POCT-GLUCOSE METER Routine 06/22/2018 8:21 PM [facility]ER POCT-GLUCOSE METER Routine 06/22/2018 5:07 PM [facility]ER POCT-GLUCOSE METER Routine 06/22/2018 11:49 AM [facility]ER POCT-GLUCOSE METER Routine 06/22/2018 8:30 AM [facility]ER POCT-GLUCOSE METER Routine 06/21/2018 9:09 PM [facility]ER POCT-GLUCOSE METER Routine 06/21/2018 5:20 PM [facility]ER POCT-GLUCOSE METER Routine 06/21/2018 11:06 AM [facility]ER ECHOCARDIOGRAM REPORT - SCAN 06/21/2018 9:21 AM [facility] FOLLICLE STIMULATING HORMONE Routine 06/21/2018 9:11 AM [facility]ER Results for this (FSH) procedure are in the results section. INSULIN-LIKE GROWTH FACTOR Routine 06/21/2018 9:11 AM [facility] ACTH Routine 06/21/2018 9:11 AM [facility] CORTISOL Routine 06/21/2018 9:11 AM [facility]ER POCT-GLUCOSE METER Routine 06/21/2018 7:[address] BRAIN WITHOUT IV CONTRAST TERI 06/20/2018 9:48 PM [facility]ER POCT-GLUCOSE METER Routine 06/20/2018 8:48 PM [facility]ER 2D ECHO W/ DOPPLER Routine 06/20/2018 6:40 PM [facility]ER Results for this (CW/PW/COLOR) procedure are in the results section. POCT-GLUCOSE METER Routine 06/20/2018 4:48 PM [facility]ER POCT-GLUCOSE METER Routine 06/20/2018 1:06 PM [facility]ER POCT-GLUCOSE METER Routine 06/20/2018 7:21 AM [facility]ER POCT-GLUCOSE METER Routine 06/20/2018 5:22 AM [facility]ER BASIC METABOLIC PANEL (7) STAT 06/20/2018 5:08 AM [facility]ER POCT-GLUCOSE METER Routine 06/20/2018 12:[address]/CTA CAROTID TERI 06/19/2018 10:[address]/CTA BRAIN TERI 06/19/2018 10:46 PM [facility]ER POCT-GLUCOSE METER Routine 06/19/2018 9:19 PM [facility]ER POCT-GLUCOSE METER Routine 06/19/2018 5:06 PM [facility]ER POCT-GLUCOSE METER Routine 06/19/2018 3:03 PM [facility]ER POCT-GLUCOSE METER Routine 06/19/2018 12:27 PM [facility]ER SCREEN, URINE Routine 06/19/2018 11:54 AM [facility]ER OSMOLALITY, URINE Routine 06/19/2018 11:54 AM [facility]ER RAPID DRUG SCREEN, URINE Routine 06/19/2018 11:54 AM [facility]ER CBC W/PLT COUNT & AUTO Routine 06/19/2018 11:49 AM [facility]ER Results for this DIFFERENTIAL procedure are in the results section. INSULIN-LIKE GROWTH FACTOR Routine 06/19/2018 11:49 AM [facility]ER OSMOLALITY, SERUM Routine 06/19/2018 11:49 AM [facility]ER T4, FREE Routine 06/19/2018 11:49 AM [facility]ER C-REACTIVE PROTEIN Routine 06/19/2018 11:49 AM [facility]ER HIV-1 ANTIGEN WITH HIV-1/2 Routine 06/19/2018 11:49 AM [facility]ER Results for this ANTIBODY procedure are in the results section. RPR Routine 06/19/2018 11:49 AM [facility]GAR [facility]ER CBC W/PLT COUNT & AUTO Routine 06/19/2018 11:49 AM [facility]ER Results for this DIFFERENTIAL procedure are in the results section. POCT-GLUCOSE METER Routine 06/19/2018 9:25 AM [facility]ER POCT-GLUCOSE METER Routine 06/19/2018 5:51 AM [facility]ER GROWTH HORMONE Routine 06/19/2018 3:49 AM SUGAR M[facility]ER LUTEINIZING HORMONE (LH) Routine 06/19/2018 3:49 AM [facility]ER ACTH Routine 06/19/2018 3:49 AM [facility]ER PROLACTIN Routine 06/19/2018 3:49 AM SUGAR M[facility]ER MR BRAIN WITHOUT & WITH IV STAT 06/19/2018 2:25 AM [facility]ER Results for this CONTRAST procedure are in the results section. HEMOGLOBIN A1C Routine 06/19/2018 12:39 AM [facility]ER TSH/FREE T4 IF INDICATED Routine 06/18/2018 11:32 PM [facility]ER BASIC METABOLIC PANEL (7) STAT 06/18/2018 11:32 PM [facility]ER URINALYSIS W/ REFLEX URINE Routine 06/18/2018 10:27 PM [facility]ER Results for this CULTURE procedure are in the results section. after 10/12/2017 Results INTRAOPERATIVE PATH REPORT - SCAN (06/29/2018 1:00 PM [facility]ER) Narrative Performed At RHYTHM STRIP - SCAN (06/29/2018 1:00 PM [facility]ER) Narrative Performed At POC-Glucose meter (06/27/2018 12:07 PM [facility]GAR M[facility]ER)Only the most recent of37 resultswithin the time period is included. POC-Glucose Meter 141 (H)Comment: TESTED AT 70 - 110 mg/dL [address] [address] Specimen Blood Performing Organization Address City/State/Zipcode Phone Number [address] [address] CENTER CBC with platelet count + automated diff (06/27/2018 5:56 AM [facility]ER)Only the most recent of5 resultswithin the time period is included. WBC 8.7 3.5 - 10.5 K/L [facility] RBC 4.82 3.93 - 5.22 M/L [facility] Hemoglobin 13.2 11.2 - 15.7 GM/DL [facility] Hematocrit 40.8 34.1 - 44.9 % [facility] MCV 84.6 79.4 - 94.[address] [facility] MCH 27.4 25.6 - 32.[address] [facility] MCHC 32.4 32.2 - 35.5 GM/DL [facility] RDW 13.2 11.7 - 14.4 % [facility] Platelets 233 150 - 450 K/CU MM [facility] MPV 11.5 9.4 - 12.[address] [facility] nRBC 0 0 - 0 /[address] [facility] % Neutros 65 % [facility] % Lymphs 24 % [facility] % Monos 8 % [facility] % Eos 2 % [facility] % Baso 0 % [facility] # Neutros 5.65 1.56 - 6.13 K/L [facility] # Lymphs 2.07 1.18 - 3.74 K/L [facility] # Monos 0.70 (H) 0.24 - 0.36 K/L [facility] # Eos 0.16 0.04 - 0.36 K/L [facility] # Baso 0.02 0.01 - 0.08 K/L [facility] Immature Granulocytes-Relative 1 0 - 1 % [facility] Specimen Blood Performing Organization Address City/State/Zipcode Phone Number [facility] [address] [place] [address] [phone] CENTER Basic Metabolic Panel (06/27/2018 5:56 AM [facility]ER)Only the most recent of8 resultswithin the time period is included. Sodium 139 136 - 145 meq/L [facility] Potassium 4.1 3.5 - 5.1 meq/L [facility] Chloride 105 98 - 107 meq/L [facility] CO2 28 22 - 29 meq/L [facility] BUN 11 7 - 21 mg/dL [facility] Creatinine 0.69 0.57 - 1.25 mg/dL [facility] Glucose 163 (H) 70 - 105 mg/dL [facility] Calcium 8.6 8.4 - 10.2 mg/dL [facility] EGFR 91Comment: ESTIMATED GFR IS mL/min/1.73 sq m [facility] NOT ACCURATE CREATININE [facility] CENTER CLEARANCE IN PREDICTING GLOMERULAR FILTRATION RATE. ESTIMATED GFR IS NOT APPLICABLE FOR DIALYSIS PATIENTS. Specimen Blood Performing Organization Address City/[facility]/Zipcode Phone Number [address] [address] [phone] [place] Sodium, random urine (06/26/2018 11:11 PM [facility]GAR [facility]ER) Sodium Urine <20 meq/L [facility] Specimen Urine - Urine, Voided Narrative Performed At Reference Range: No Normals [facility] Performing Organization Address City/State/Zipcode Phone Number [address] [address] [phone] [place] [address] brain without IV contrast (06/26/2018 10:25 PM SUGAR M[facility]ER)Only the most recent of2 resultswithin the time period is included. Narrative Performed At FINAL REPORT [facility] CT Head without contrast CLINICAL HISTORY: [...] MD Report Verified Date/Time:06/26/2018 22:57:28 Reading Location: [facility] Transitional Reading Room Procedure Note Interface, External Ris In - 06/26/2018 10:59 PM [facility] FINAL REPORT CT Head without contrast CLINICAL [...] Report Verified Date/Time: 06/26/2018 22:57:28 Reading Location: [facility] Transitional Reading Room Performing Organization Address City/State/Zipcode Phone Number GE RIS Specific gravity, urine (06/25/2018 4:23 AM SUGAR [facility]ER) Specific [place], UA 1.010 1.001 - 1.[address] [facility] Specimen Urine - Urine, Fonseca Performing Organization Address [facility] Phone Number [address] [address] [place] Osmolality, urine (06/25/2018 4:23 AM [facility]ER)Only the most recent of2 resultswithin the time period is included. Osmolality, Ur 340 40-1,400 mOsm/kg [facility] Specimen Urine - Urine, Fonseca Performing Organization Address [facility] Phone Number [address] [address] [phone] [place] Tissue Exam (06/24/2018 8:02 AM [facility]AR [facility]ER) Case Report Surgical Pathology Report Case: [id number] [facility] Authorizing Provider:Alex Ruano MD Collected: 06/24/[address] [place] [address] MEDICAL Ordering Location: [address] Received: 06/24/2018 0809 CENTER Service Pathologist: Chon Caraballo MD Specimens: A) - Tumor, pituitary tumor B) - Tumor, pituitary tumor DIAGNOSIS A.PITUITARY GLAND, TRANSSPHENOIDAL 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 PITUITARY GLAND, TRANSSPHENOIDAL HYPOPHYSECTOMY: NULL CELL ADENOMA ENTRAPPED ADENOHYPOPHYSIS Signing Pathologist Direct Phone Line: [phone] COMMENT Immunoperoxidase stains LIMA FERRERS performed on the second [facility] specimen show that the tumor CENTER has no staining for growth hormone, LH, FSH, TSH, prolactin, or ACTH. 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 The MIB-1 proliferation index is less than 1%. CPT Code(s) 29805 x 2; 46481; 75195; 74690 [facility] x 6; 08958 [facility] CLINICAL HISTORY Pituitary adenoma [facility] SPECIMEN SOURCE A. Pituitary tumor; B. [facility] Pituitary tumor [facility] GROSS DESCRIPTION A. The specimen is received fresh for frozen section diagnosis and labeled "pituitary tumor" and consists of a single fragment of tariq -red soft tissue measuring 0.5 cm in greatest dimension submitted ent [facility] for frozen section diagnosis, and touch preps are performed. CG/ew [facility] B. Received fresh labeled "tumor", description "pituitary tumor" is a 2.0 x 1.0 x 0.3 cm aggregate of pink-tariq to hannah-white rubbery friable soft tissue. The specimen is entirely submitted in cassette B1. DB/pl INTRAOPERATIVE FROZEN SECTION DIAGNOSIS, PITUITARY TUMOR: [facility] CONSULTATION ADENOMA EXTENDING INTO RESPIRATORY MUCOSA PER DR. CARABALLO [facility] MICROSCOPIC DESCRIPTION Performed on A and B [facility] SPECIAL STUDIES The interpretation of this case included the use of immunohistochemistry or special stains. [facility] Immunohistochemistry technical testing was performed at [facility], Pathology Laboratory where it was [...] Tumor Performing Organization Address City/State/Zipcode Phone Number [facility] [address] [place] [address] [phone] CENTER Screen, urine (06/24/2018 5:16 AM [facility]AR [facility]ER)Only the most recent of2 resultswithin the time period is included. Preg Test, Ur Negative [facility] Specimen Urine Performing Organization Address [facility] Phone Number [address] [address] [phone] CENTER PT/aPTT (06/24/2018 5:07 AM [facility]GAR [facility]ER) Protime 13.8 11.7 - 14.[address] [facility] INR 1.1 <=5.[address] [facility] PTT 32.0 22.5 - 36.[address] [facility] Specimen Blood Narrative Performed At RECOMMENDED COUMADIN/WARFARIN INR THERAPY [facility] RANGES STANDARD DOSE: 2.0 - 3.0 Includes: PROPHYLAXIS for venous thrombosis, systemic embolization; TREATMENT for venous thrombosis and/or pulmonary embolus. HIGH RISK: Target INR is 2.5-3.5 for patients with mechanical heart valves. Performing Organization Address [facility] Phone Number [address] [address] [place] ECHOCARDIOGRAM REPORT - SCAN (06/21/2018 9:21 AM [facility]GAR [facility]ER) Narrative Performed At Cortisol (06/21/2018 9:11 AM [facility]GAR [facility]ER) Cortisol, Total 4.7 3.7 - 19.4 ug/dL [facility] Specimen Blood - Arm, Right Performing Organization Address [facility] Phone Number [address] [address] CENTER Insulin-like growth factor (06/21/2018 9:11 AM [facility]GAR [facility]ER)Only the most recent of2 resultswithin the time period is included. Igf-1(Somatomedin-C) 36 (L) 52 - 328 ng/mL [facility] Z-Score Male: DNR [facility] Z-Score Female: -2.6 (L) -2.0 - 2.0 SD [facility] Comment: INC[facility]POR[facility] This test was developed and its analytical performance characteristics have been determined by [facility]. It has not been cleared or approved by FDA. This assay has been validated pursuant to the CLIA regulations and is used for clinical purposes. Specimen Blood - Arm, Right Narrative Performed At Performing Lab [employer] [facility] [employer] [address] [address] Sixto Rodrigez MD, PhD, ANABELL Performing Organization Address [facility] [place] [address] [address] [place] [address] ACTH (06/21/2018 9:11 AM [facility]GAR [facility]ER)Only the most recent of2 resultswithin the time period is included. ACTH 17 6 - 50 pg/mL [facility] Comment: Reference range applies only to the specimens collected between 7am-10am. Specimen Blood - Arm, Right Narrative Performed At Performing Lab [employer] [facility] [employer] [address] [address] Sixto Rodrigez MD, PhD, ANABELL Performing Organization Address [facility] [place] [address] [address] [place] [address] Follicle stimulating hormone (FSH) (06/21/2018 9:11 AM [facility]GAR [facility]ER) Fsh 2.3 mIU/mL [facility] Comment: Adult female reference ranges for FSH: Follicular Phase: 2.5- 10.2 mIU/mL Mid-Cycle:3.1- 17.7 mIU/mL Luteal Phase: 1.5-9.1 mIU/mL Postmenopausal:23.0-116.3 mIU/mL Children (<18 Years Old): FSH reference ranges established on post-pubertal patient population. Reference range not established for pre-pubertal patients using this assay. For pre-pubertal patients, the [facility] FSH, Pediatrics assay is recommended (test code 30281). Specimen Blood - Arm, Right Narrative Performed At Performing Lab [employer] [facility] [employer] [address] Sixto Rodrigez MD, PhD, ANABELL Performing Organization Address [facility]/Zipcode Phone Number [facility] [address], [place] [address] INCORPORATED [address] [facility] 2D Echo W/Doppler(CW/PW/Color) (06/20/2018 6:40 PM [facility]GAR M[facility]ER) Ejection Fraction [facility] Narrative Performed At Transthoracic Echocardiography Report (TTE) [facility]CHO [facility]ART[facility] Demographics Patient NameVY STOUT Date of Study06/20/2018 Female Visit [id number] Unknown Room [id number] Number Date of 1970Referring Abrahan Mireles MD Age 48 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(s)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 [facility] 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 Tony Fernandez Interpreting Tarik Domínguez MD Procedure [...] External Ris In - 06/21/2018 8:37 AM [facility]GAR [facility]ER Transthoracic Echocardiography Report (TTE) Demographics Patient Name VY STOUT Date of Study 06/20/2018 Gender Female Visit Number [id number] Race Unknown Room Number 2251 Number Date of 1970 Referring Physician Althea Mireles MD Age 48 year(s) 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 Grajeda RDCS 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 Tony Fernandez Interpreting Ethan Domínguze Physician Procedure Type of Study TTE procedure:2DECHO [...] TR Gradient: 18.02 mmHg Performing Organization Address City/State/[facility] Phone Number [facility] ECHO HEARTLAB [facility] CTA carotid (06/19/2018 10:46 PM SUGAR MIXER) Narrative Performed At FINAL REPORT [employer] [facility] CLINICAL HISTORY: Stroke TECHNIQUE: Initially, noncontrast [...] MD Report Verified Date/Time:06/20/2018 01:03:44 Reading Location: [address] Transitional Reading Room Procedure Note Interface, External Ris In - 06/20/2018 1:05 AM SUGAR MIXER FINAL REPORT CLINICAL HISTORY: Stroke TECHNIQUE: Initially, [...] Report Verified Date/Time: 06/20/2018 01:03:44 Reading Location: [address] Transitional Reading Room Performing Organization Address City/State/Zipcode Phone Number GE RIS CTA brain (06/19/2018 10:46 PM SUGAR [facility]IXER) Narrative Performed At FINAL REPORT GE RIS [...] MD Report Verified Date/Time:06/20/2018 01:03:44 Reading Location: [address] Transitional Reading Room Procedure Note Interface, External Ris In - 06/20/2018 1:05 AM [facility] FINAL REPORT CLINICAL HISTORY: Stroke TECHNIQUE: Initially, [...] Report Verified Date/Time: 06/20/2018 01:03:44 Reading Location: [facility] B1 C013T Transitional Reading Room Performing Organization Address City/State/Zipcode Phone Number RIS Rapid drug screen, urine (06/19/2018 11:54 AM [facility]AR MIXER) Barbiturate Screen Negative Negative [facility] Benzodiazepine Screen Negative Negative [facility] Cocaine (Metab.) Screen Negative Negative [facility] Methadone Screen Negative Negative [facility] Opiate Screen Negative Negative [facility] Cannabinoid Screen Negative Negative [facility] Amph/Methamph Screen Negative Negative [facility] Phencyclidine Screen Negative Negative [facility] Oxycodone Screen Negative Negative [facility] Specimen Urine - Urine, Voided Narrative Performed At [facility] CONC. Cocaine 300 ng/mL Dbtbnzsdqom85 ng/mL Qivoublkfzcvoa680 ng/mL Barbiturate 200 ng/mL Vnwzqeeytacpu81 ng/mL Dhjjrs359 ng/mL Methadone 300 ng/mL Amphetamine/ 1000 ng/mL Methamphetamine Oxycodone 300 ng/mL This assay provides an unconfirmed qualitative test result for the clinical management of patients in emergency situations. Chain of custody not maintained. Some mprv-nnk-celtozs medications, as well as adulterants, may cause inaccurate results. Clinical correlation should be applied. A more comprehensive drug screen or confirmation of a detected drug may be performed upon request. Performing Organization Address City/[facility] Phone Number [address] [address] CENTER HIV-1 Antigen with HIV-1/2 Antibody (06/19/2018 11:49 AM [facility]GAR MIXER) HIV-1 Antigen with HIV 1&2 NON-REACTIVE Nonreactive [facility] Specimen Blood - Arm, Left Performing Organization Address City/[facility] Phone Number [address] [address] CENTER C-Reactive Protein (06/19/2018 11:49 AM [facility] MIXER) CRP 0.81 (H) 0.00 - 0.50 mg/dL [facility] Specimen Blood - Arm, Left Performing Organization Address [facility] Phone Number [address] [address] CENTER RPR (06/19/2018 11:49 AM [facility] MIXER) RPR Nonreactive Nonreactive [facility] Specimen Blood - Arm, Left Performing Organization Address [facility] Phone Number [address] [phone] CENTER T4, free (06/19/2018 11:49 AM [facility]AR MIXER) Free T4 0.89 0.70 - 1.48 ng/dL [facility] Specimen Blood - Arm, Left Performing Organization Address [facility] Phone Number [address] [address] CENTER Osmolality, serum (06/19/2018 11:49 AM [facility]ER) Osmolality Serum 310 (H) 275 - 295 mOsm/kg [facility] Specimen Blood - Arm, Left Performing Organization Address [facility] Phone Number [address] [address] [phone] CENTER Prolactin (06/19/2018 3:49 AM [facility]ER) Prolactin 23.34 5.18 - 26.53 ng/mL [facility] Specimen Blood Performing Organization Address [facility] Phone Number [address] [phone] CENTER Growth hormone (06/19/2018 3:49 AM [facility]ER) Growth Hormone <0.1 < OR=7.1 ng/mL [facility] [...] Guideline. J Clin Endocrinol Metab 2014; 99: 0979-6263]. Using GH stimulation testing, the following result at any point in the timed sequence makes GH deficiency unlikely: Adults (> or=20 years): Insulin Hypoglycemia > or=5.1 ng/mL Arginine/GHRH> or=4.1 ng/mL Glucagon > or=3.0 ng/mL Children (<20 years): All Stimulation Tests> or=10.0 ng/mL Specimen Blood Narrative Performed At Performing Lab [employer] [facility] [place] [address] Sixto Rodrigez MD, PhD, ANABELL Performing Organization Address [facility] [place] [address] [facility] Luteinizing hormone (LH) (06/19/2018 3:49 AM [facility]ER) LH, Serum 0.2 mIU/mL Varthana Comment: Adult Female Reference Ranges for LH: Follicular Phase:1.9-12.5 mIU/mL Mid-Cycle Peak:8.7-76.3 mIU/mL Luteal Phase:0.5-16.9 mIU/mL Postmenopausal: 10.0-54.7 mIU/mL Children (<18 Years Old): LH reference ranges established on post-pubertal patient population. Reference range not established for pre-pubertal patients using this assay. For pre-pubertal patients, the [employer] LH, Pediatric assay is recommended (order code 31734). Specimen Blood Narrative Performed At Performing Lab [employer] [address] [place] [address] Sixto Rodrigez MD, PhD, ANABELL Performing Organization Address [facility] [place] [address] [facility] MR brain without & with IV contrast (06/19/2018 2:25 AM [facility]ER) Narrative Performed At FINAL REPORT [facility] MRI brain with and without contrast Comparison:None. 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 Specimen Blood Performing Organization Address City/[facility] Phone Number [address] [address] [phone] CENTER TSH/Free T4 If Indicated (06/18/2018 11:32 PM [facility]AR M[facility]ER) TSH 0.41 0.35 - 4.94 uIU/mL [facility] Specimen Blood Performing Organization Address [facility] Phone Number [address] [address] [phone] CENTER Urinalysis w/Microscopic + Reflex to Culture (06/18/2018 10:27 PM [facility]AR MIXER) Color, UA Yellow [facility] Clarity, UA Clear [facility] Specific [place], UA 1.011 1.001 - 1.[address] [facility] pH, UA 5.0 5.0 - 8.[address] [facility] Protein, UA Negative Negative [facility] Glucose, UA >1000 mg/dL (A) Negative [facility] Ketones, UA 20 mg/dL (A) Negative [facility] Bilirubin, UA Negative Negative [facility] Blood, UA Negative Negative [facility] Nitrite, UA Negative Negative [facility] Leukocytes, UA Negative Negative [facility] Urobilinogen, UA 0.2 0.2 - 1.0 mg/dL [facility] RBC, UA <1 /HPF [facility] WBC, UA <1 /HPF [facility] Squam Epithel, UA <1 /HPF [facility] Specimen Source [facility] Specimen Urine - Urine, Clean Catch Performing Organization Address City/State/Zipcode Phone Number [facility] [address] [place] [phone] CENTER after 10/12/2017 Insurance Payer Benefit Plan / Subscriber ID Type Phone Address Group [employer] xxxxxxxxxxxx PPO [phone] [address] [employer]/[place] [address] (Home) [address] [place] [phone] Advance Directives Patient has advance care planning documents, and code status on file. For more information, please contact:[address] [phone] Code Status Date Activated Date Inactivated Comments Full Code 06/26/2018 1:38 PM This code status was determined by: Patient Full Code 06/18/2018 8:39 PM 06/26/2018 11:54 AM This code status was determined by: Patient
--- OUTSIDE RECORDS SUMMARY | 2018-10-13 11:41 | XMS REPORT ---
[...] [facility] [id number] 150 MG Orally Feb 20Feb Active 1 tablet Once a day 2017 Nitrofurantoin ND 05664473175 100 MG Orally Feb 20Feb Active 1 capsule Macrocrystal BID 2017 12, with food 2018 or milk GlyBURIDE ND 54431294505 5 MG Orally January 21, Active 1 tablet Once a day 2017 with breakfast or the first main meal of the day Levothyroxine ND 38436434551 88 MCG Oral Active TAKE 1 Sodium TABLET BY MOUTH EVERY MORNING Losartan ND 45576345634 50-12.5 MG February 12, Active 1 tablet Potassium-HCTZ Orally Once a 2018 day Valsartan-Hydroch ND 49448332501 80-12.5 MG Oral Active TAKE 1 lorothiazide TABLET BY MOUTH EVERY DAY Results Name Result Date Reference Range Unit Abnormality Flag THINPREP TIS PAP AND HPV mRNA E6/E7, CHLAMYDIA/N.GONORRHOEAE URINALYSIS AUTO W/O SCOPE (23846) ----PROTEIN N [id number] ----pH 5.5 20180220 ----NIT P [id number] ----CONCEPCION 1+ [id number] ----URO 1.0 [id number] ----SPECIFIC GRAVITY 1.015 [id number] ----BLO TR [id number] ----BILIRUBIN N [id number] ----KETONES N [id number] ----GLUCOSE N [id number] Summary Purpose eClinicalWorks Submission
--- OUTSIDE RECORDS SUMMARY | 2018-10-13 11:41 | XMS REPORT ---
[...] Date Date Atorvastatin Calcium [facility] [id number] 10 MG Oral Active TAKE 1 TABLET BY MOUTH AT BEDTIME. ProAir HFA [facility] 82407254573 108 (90 Base) Active USE 1-2 MCG/ACT PUFFS BY Inhalation MOUTH EVERY 4-6 HOURS Levothyroxine Sodium ND 39916511430 88 MCG Oral Active TAKE 1 TABLET BY MOUTH EVERY MORNING Valsartan-Hydrochlor ND 10201133712 80-12.5 MG Active TAKE 1 othiazide Oral TABLET BY MOUTH EVERY DAY Benzonatate ND 36152919985 200 MG Oral Active TAKE ONE CAPSULE BY MOUTH 3 TIMES A DAY NEEDED FOR COUGH MethylPREDNISolone ND 34651634322 4 MG Oral Active TAKE 6 TABLETS ON DAY 1 DIRECTED ON PACKAGE AND DECREASE BY 1 TAB EACH DAY FOR A TOTAL OF 6 DAYS GlyBURIDE ND 53394423065 5 MG Orally Iraida Active 1 tablet Once a day 2017 breakfast or the first main meal of the day MetFORMIN HCl ER ND 67972212898 750 MG Oral Active TAKE 1 TABLET BY MOUTH 2 TIMES DAILY BEFORE BREAKFAST AND DINNER. Results No Known Results Summary Purpose eClinicalWorks Submission
--- OUTSIDE RECORDS SUMMARY | 2018-10-13 11:41 | XMS REPORT ---
[...] [facility] 73301631195 50-12.5 MG February 12, Active 1 tablet Potassium-HCTZ Orally Once a 2017 day Results No Known Results Summary Purpose eClinicalWorks Submission
--- OUTSIDE RECORDS SUMMARY | 2018-10-13 11:41 | XMS REPORT ---
:1970 Author Organization eClinicalWorks Care Team Providers Name Role Phone Hawkins, Neeru Provider Role Unavailable Allergies No Known [...]
--- OUTSIDE RECORDS SUMMARY | 2018-10-13 11:41 | XMS REPORT ---
:1970 Author Organization [facility] Address [address] [place] [address] Dr. Holbrook [address] [place] [id number] Care Team Providers Name Role Phone DAJUAN GEORGE Unavailable Unavailable MITCHELL DOBSON Unavailable Unavailable Problems This patient has no known problems. Allergies, Adverse Reactions, Alerts This patient has no known allergies or adverse reactions. Medications This patient has no known medications. Results Test Description Test Time Test Comments Text Results Atomic Results Result Comments TISSUE EXAM 2018-06-28 08:38:00 Surgical Pathology Report Case: [id number] Authorizing Provider: Alex Ruano MD Collected: 06/24/2018801 Ordering Location: [address] Received: 06/24/2018 0809 Service Pathologist: Chon Andino MD Specimens: A) - Tumor, pituitary tumor B) - Tumor, pituitary tumor A.PITUITARY GLAND, TRANSSPHENOIDAL 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 PITUITARY GLAND, TRANSSPHENOIDAL HYPOPHYSECTOMY:NULL CELL ADENOMAENTRAPPED ADENOHYPOPHYSIS Signing Pathologist Direct Phone Line: [phone] signed by Chon Andino MD on 06/28/2018 at 8:38 AMImmunoperoxidase stains performed on the second specimen show that the tumor has no staining for growth hormone, LH, FSH, TSH, prolactin, or ACTH. 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 The MIB-1 proliferation index is less than 1%. 46653 x 2; 36032; 37391; 58303 x 6; 96880Laahtumzr adenoma A. Pituitary tumor; B. Pituitary tumorA. [...] stains. Immunohistochemistry technical testing was performed at [facility], Pathology Laboratory where it was developed [...] (BEAKER) (test 141 mg/dL 70-110 TESTED AT [facility] [address] [place] [address] vvwq=8910) [facility] [address] POCT-GLUCOSE [id number] 12:06:00 Test Item Value Reference Range Comments POC-GLUCOSE METER (BEAKER) 217 mg/dL 70-110 TESTED AT [address] (test sywq=0175) [facility] [address] BASIC METABOLIC [id number] 07:18:00 Test Item Value Reference Range Comments SODIUM (BEAKER) (test 139 meq/L 136-145 dadi=670) POTASSIUM (BEAKER) (test 4.1 meq/L 3.5-5.1 nvlk=030) CHLORIDE (BEAKER) (test 105 meq/L 98-107 thek=905) CO2 (BEAKER) (test 28 meq/L 22-29 hbmq=458) BLOOD UREA NITROGEN 11 mg/dL 7-21 (BEAKER) (test cxcx=339) CREATININE (BEAKER) (test 0.69 mg/dL 0.57-1.25 pssi=026) GLUCOSE RANDOM (BEAKER) 163 mg/dL 70-105 (test dtvr=815) CALCIUM (BEAKER) (test 8.6 mg/dL 8.4-10.2 meko=529) EGFR (BEAKER) (test 91 mL/min/1.73 sq m ESTIMATED GFR IS NOT trzq=3562) ACCURATE CREATININE CLEARANCE IN PREDICTING GLOMERULAR FILTRATION RATE. ESTIMATED GFR IS NOT APPLICABLE FOR DIALYSIS PATIENTS. CBC W/PLT COUNT & AUTO [id number] 06:49:00 Test Item Value Reference Range Comments WHITE BLOOD CELL COUNT (BEAKER) (test oqyc=643) 8.7 K/ L 3.5-10.5 RED BLOOD CELL COUNT (BEAKER) (test okfs=123) 4.82 M/ L 3.93-5.22 HEMOGLOBIN (BEAKER) (test qajy=203) 13.2 GM/DL 11.2-15.7 HEMATOCRIT (BEAKER) (test kjny=084) 40.8 % 34.1-44.9 MEAN CORPUSCULAR VOLUME (BEAKER) (test iovp=912) 84.6 fL 79.4-94.8 MEAN CORPUSCULAR HEMOGLOBIN (BEAKER) (test 27.4 pg 25.6-32.2 qflo=076) MEAN CORPUSCULAR HEMOGLOBIN CONC (BEAKER) (test 32.4 GM/DL 32.2-35.5 zgdk=614) RED CELL DISTRIBUTION WIDTH (BEAKER) (test 13.2 % 11.7-14.4 iicp=276) PLATELET COUNT (BEAKER) (test kkvk=079) 233 K/CU MM 150-450 MEAN PLATELET VOLUME (BEAKER) (test wlns=278) 11.5 fL 9.4-12.3 NUCLEATED RED BLOOD CELLS (BEAKER) (test 0 /100 WBC 0-0 yzgd=571) NEUTROPHILS RELATIVE PERCENT (BEAKER) (test 65 % hbht=249) LYMPHOCYTES RELATIVE PERCENT (BEAKER) (test 24 % eutb=635) MONOCYTES RELATIVE PERCENT (BEAKER) (test 8 % jlik=695) EOSINOPHILS RELATIVE PERCENT (BEAKER) (test 2 % cblz=661) BASOPHILS RELATIVE PERCENT (BEAKER) (test 0 % ytfo=167) NEUTROPHILS ABSOLUTE COUNT (BEAKER) (test 5.65 K/ L 1.56-6.13 ruea=047) LYMPHOCYTES ABSOLUTE COUNT (BEAKER) (test 2.07 K/ L 1.18-3.74 wydc=308) MONOCYTES ABSOLUTE COUNT (BEAKER) (test 0.70 K/ L 0.24-0.36 gswi=842) EOSINOPHILS ABSOLUTE COUNT (BEAKER) (test 0.16 K/ L 0.04-0.36 kcrr=663) BASOPHILS ABSOLUTE COUNT (BEAKER) (test 0.02 K/ L 0.01-0.08 uuzo=814) IMMATURE GRANULOCYTES-RELATIVE PERCENT (BEAKER) 1 % 0-1 (test yjai=8071) BASIC METABOLIC [id number] 23:52:00 Test Item Value Reference Range Comments SODIUM (BEAKER) (test 139 meq/L 136-145 saza=715) POTASSIUM (BEAKER) (test 4.0 meq/L 3.5-5.1 Specimen slightly tsin=549) hemolyzed CHLORIDE (BEAKER) (test 103 meq/L 98-107 eahl=281) CO2 (BEAKER) (test 28 meq/L 22-29 hvlm=988) BLOOD UREA NITROGEN 12 mg/dL 7-21 (BEAKER) (test dcos=683) CREATININE (BEAKER) (test 0.72 mg/dL 0.57-1.25 Specimen slightly xsgj=629) hemolyzed GLUCOSE RANDOM (BEAKER) 193 mg/dL 70-105 (test chym=941) CALCIUM (BEAKER) (test 8.6 mg/dL 8.4-10.2 rowk=092) EGFR (BEAKER) (test 86 mL/min/1.73 sq m ESTIMATED GFR IS NOT jbxa=3862) ACCURATE CREATININE CLEARANCE IN PREDICTING GLOMERULAR FILTRATION RATE. ESTIMATED GFR IS NOT APPLICABLE FOR DIALYSIS PATIENTS. SODIUM, RANDOM [id number] 23:49:00 Test Item Value Reference Range Comments SODIUM URINE (BEAKER) (test cufr=051) < meq/L Reference Range: No NormalsCBC W/PLT COUNT & AUTO [id number] 23: 35:00 Test Item Value Reference Range Comments WHITE BLOOD CELL COUNT (BEAKER) (test lgad=077) 9.7 K/ L 3.5-10.5 RED BLOOD CELL COUNT (BEAKER) (test mllt=177) 4.46 M/ L 3.93-5.22 HEMOGLOBIN (BEAKER) (test kgjk=415) 12.2 GM/DL 11.2-15.7 HEMATOCRIT (BEAKER) (test awfv=236) 37.8 % 34.1-44.9 MEAN CORPUSCULAR VOLUME (BEAKER) (test ynfl=568) 84.8 fL 79.4-94.8 MEAN CORPUSCULAR HEMOGLOBIN (BEAKER) (test 27.4 pg 25.6-32.2 pdhv=255) MEAN CORPUSCULAR HEMOGLOBIN CONC (BEAKER) (test 32.3 GM/DL 32.2-35.5 noym=470) RED CELL DISTRIBUTION WIDTH (BEAKER) (test 13.0 % 11.7-14.4 udbo=557) PLATELET COUNT (BEAKER) (test daxw=672) 210 K/CU MM 150-450 MEAN PLATELET VOLUME (BEAKER) (test aiss=467) 11.4 fL 9.4-12.3 NUCLEATED RED BLOOD CELLS (BEAKER) (test 0 /100 WBC 0-0 bphn=723) NEUTROPHILS RELATIVE PERCENT (BEAKER) (test 61 % kdhj=666) LYMPHOCYTES RELATIVE PERCENT (BEAKER) (test 28 % ryku=385) MONOCYTES RELATIVE PERCENT (BEAKER) (test 8 % fgio=786) EOSINOPHILS RELATIVE PERCENT (BEAKER) (test 2 % nykb=274) BASOPHILS RELATIVE PERCENT (BEAKER) (test 0 % hxom=915) NEUTROPHILS ABSOLUTE COUNT (BEAKER) (test 5.87 K/ L 1.56-6.13 jxky=323) LYMPHOCYTES ABSOLUTE COUNT (BEAKER) (test 2.72 K/ L 1.18-3.74 mcyo=383) MONOCYTES ABSOLUTE COUNT (BEAKER) (test 0.80 K/ L 0.24-0.36 fxnc=818) EOSINOPHILS ABSOLUTE COUNT (BEAKER) (test 0.22 K/ L 0.04-0.36 dugw=495) BASOPHILS ABSOLUTE COUNT (BEAKER) (test 0.03 K/ L 0.01-0.08 gwtd=842) IMMATURE GRANULOCYTES-RELATIVE PERCENT (BEAKER) 1 % 0-1 (test dwwi=7188) CT, BRAIN, WITHOUT [id number] 22:57:00FINAL REPORT CT Head without contrast CLINICAL [...] Gamboa Verified Date/Time: 06/26/2018 22:57:28 [address] POCT-GLUCOSE [id number] 21:07:00 Test Item Value Reference Range Comments POC-GLUCOSE METER (BEAKER) 211 mg/dL 70-110 TESTED AT [address] (test wogf=2614) [facility] [address] BASIC METABOLIC [id number] 14:29:00 Test Item Value Reference Range Comments SODIUM (BEAKER) (test 137 meq/L 136-145 aidb=162) POTASSIUM (BEAKER) (test 3.6 meq/L 3.5-5.1 kcji=880) CHLORIDE (BEAKER) (test 100 meq/L 98-107 fnth=535) CO2 (BEAKER) (test 32 meq/L 22-29 yzcg=630) BLOOD UREA NITROGEN 12 mg/dL 7-21 (BEAKER) (test wjqo=497) CREATININE (BEAKER) (test 0.71 mg/dL 0.57-1.25 igfa=469) GLUCOSE RANDOM (BEAKER) 182 mg/dL 70-105 (test qoee=293) CALCIUM (BEAKER) (test 8.7 mg/dL 8.4-10.2 ofgb=533) EGFR (BEAKER) (test 88 mL/min/1.73 sq m ESTIMATED GFR IS NOT dgkm=9241) ACCURATE CREATININE CLEARANCE IN PREDICTING GLOMERULAR FILTRATION RATE. ESTIMATED GFR IS NOT APPLICABLE FOR DIALYSIS PATIENTS. CBC W/PLT COUNT & AUTO [id number] 14:25:00 Test Item Value Reference Range Comments WHITE BLOOD CELL COUNT (BEAKER) (test zuje=662) 12.3 K/ L 3.5-10.5 RED BLOOD CELL COUNT (BEAKER) (test xple=688) 4.76 M/ L 3.93-5.22 HEMOGLOBIN (BEAKER) (test fkmu=905) 13.1 GM/DL 11.2-15.7 HEMATOCRIT (BEAKER) (test vzlv=054) 40.6 % 34.1-44.9 MEAN CORPUSCULAR VOLUME (BEAKER) (test mshq=297) 85.3 fL 79.4-94.8 MEAN CORPUSCULAR HEMOGLOBIN (BEAKER) (test 27.5 pg 25.6-32.2 zthh=080) MEAN CORPUSCULAR HEMOGLOBIN CONC (BEAKER) (test 32.3 GM/DL 32.2-35.5 wcnb=013) RED CELL DISTRIBUTION WIDTH (BEAKER) (test 13.1 % 11.7-14.4 qvjl=596) PLATELET COUNT (BEAKER) (test cxgw=255) 254 K/CU MM 150-450 MEAN PLATELET VOLUME (BEAKER) (test jpui=346) 11.1 fL 9.4-12.3 NUCLEATED RED BLOOD CELLS (BEAKER) (test 0 /100 WBC 0-0 oeke=497) NEUTROPHILS RELATIVE PERCENT (BEAKER) (test 68 % uopo=458) LYMPHOCYTES RELATIVE PERCENT (BEAKER) (test 24 % iebi=035) MONOCYTES RELATIVE PERCENT (BEAKER) (test 6 % fmgd=187) EOSINOPHILS RELATIVE PERCENT (BEAKER) (test 1 % rdgv=048) BASOPHILS RELATIVE PERCENT (BEAKER) (test 0 % vnao=138) NEUTROPHILS ABSOLUTE COUNT (BEAKER) (test 8.42 K/ L 1.56-6.13 bljg=330) LYMPHOCYTES ABSOLUTE COUNT (BEAKER) (test 2.90 K/ L 1.18-3.74 sogc=490) MONOCYTES ABSOLUTE COUNT (BEAKER) (test 0.79 K/ L 0.24-0.36 oxan=353) EOSINOPHILS ABSOLUTE COUNT (BEAKER) (test 0.07 K/ L 0.04-0.36 ozuq=783) BASOPHILS ABSOLUTE COUNT (BEAKER) (test 0.05 K/ L 0.01-0.08 uhlt=799) IMMATURE GRANULOCYTES-RELATIVE PERCENT (BEAKER) 1 % 0-1 (test rkbc=8316) POCT-GLUCOSE [id number] 13:38:00 Test Item Value Reference Range Comments POC-GLUCOSE METER (BEAKER) 219 mg/dL 70-110 TESTED AT [address] (test hnyv=2087) [place] [id number] POCT-GLUCOSE [id number] 12:34:00 Test Item Value Reference Range Comments POC-GLUCOSE METER (BEAKER) 193 mg/dL 70-110 TESTED AT [address] (test ouap=2041) [place] [id number] POCT-GLUCOSE [id number] 16:17:00 Test Item Value Reference Range Comments POC-GLUCOSE METER (BEAKER) 244 mg/dL 70-110 TESTED AT [address] (test exqw=6727) [place] [id number] POCT-GLUCOSE [id number] 12:08:00 Test Item Value Reference Range Comments POC-GLUCOSE METER (BEAKER) 229 mg/dL 70-110 TESTED AT [address] (test wbwl=9432) [place] [address] POCT-GLUCOSE [id number] 08:27:00 Test Item Value Reference Range Comments POC-GLUCOSE METER (BEAKER) 280 mg/dL 70-110 TESTED AT [address] (test qqha=1894) [facility] [address] OSMOLALITY, [id number] 05:16:00 Test Item Value Reference Range Comments OSMOLALITY URINE (BEAKER) (test zgvk=167) 340 mOsm/kg 40-1,400 SPECIFIC GRAVITY, [id number] 04:53:00 Test Item Value Reference Range Comments SPECIFIC GRAVITY UA (BEAKER) (test jrjc=133) 1.010 1.001-1.035 POCT-GLUCOSE [id number] 22:29:00 Test Item Value Reference Range Comments POC-GLUCOSE METER (BEAKER) 257 mg/dL 70-110 TESTED AT [address] (test fbpu=5115) [place] [address] BASIC METABOLIC [id number] 17:49:00 Test Item Value Reference Range Comments SODIUM (BEAKER) (test 137 meq/L 136-145 qdwt=698) POTASSIUM (BEAKER) (test 4.6 meq/L 3.5-5.1 bjyw=890) CHLORIDE (BEAKER) (test 102 meq/L 98-107 vfgv=056) CO2 (BEAKER) (test 26 meq/L 22-29 jlco=395) BLOOD UREA NITROGEN 14 mg/dL 7-21 (BEAKER) (test ftrh=206) CREATININE (BEAKER) (test 0.78 mg/dL 0.57-1.25 fxzt=347) GLUCOSE RANDOM (BEAKER) 246 mg/dL 70-105 (test zyxw=214) CALCIUM (BEAKER) (test 8.7 mg/dL 8.4-10.2 jhie=047) EGFR (BEAKER) (test 79 mL/min/1.73 sq m ESTIMATED GFR IS NOT obro=1866) ACCURATE CREATININE CLEARANCE IN PREDICTING GLOMERULAR FILTRATION RATE. ESTIMATED GFR IS NOT APPLICABLE FOR DIALYSIS PATIENTS. POCT-GLUCOSE [id number] 17:02:00 Test Item Value Reference Range Comments POC-GLUCOSE METER (BEAKER) 235 mg/dL 70-110 TESTED AT [address] (test odfw=1034) [place] [address] POCT-GLUCOSE [id number] 12:06:00 Test Item Value Reference Range Comments POC-GLUCOSE METER (BEAKER) 249 mg/dL 70-110 TESTED AT [address] (test oaec=5757) [place] [address] POCT-GLUCOSE [id number] 09:40:00 Test Item Value Reference Range Comments POC-GLUCOSE METER (BEAKER) 278 mg/dL 70-110 TESTED AT [address] (test zldp=8283) [place] [address] BASIC METABOLIC [id number] 06:14:00 Test Item Value Reference Range Comments SODIUM (BEAKER) (test 141 meq/L 136-145 guti=326) POTASSIUM (BEAKER) (test 4.1 meq/L 3.5-5.1 ajww=803) CHLORIDE (BEAKER) (test 104 meq/L 98-107 wrzu=168) CO2 (BEAKER) (test 30 meq/L 22-29 avnq=714) BLOOD UREA NITROGEN 14 mg/dL 7-21 (BEAKER) (test sosv=229) CREATININE (BEAKER) (test 0.70 mg/dL 0.57-1.25 amkf=496) GLUCOSE RANDOM (BEAKER) 146 mg/dL 70-105 (test zwhm=012) CALCIUM (BEAKER) (test 9.4 mg/dL 8.4-10.2 sdqu=571) EGFR (BEAKER) (test 89 mL/min/1.73 sq m ESTIMATED GFR IS NOT esfw=5135) ACCURATE CREATININE CLEARANCE IN PREDICTING GLOMERULAR FILTRATION RATE. ESTIMATED GFR IS NOT APPLICABLE FOR DIALYSIS PATIENTS. [id number] 06:03:00 Test Item Value Reference Range Comments PROTIME (BEAKER) (test ithc=698) 13.8 seconds 11.7-14.7 INR (BEAKER) (test vpre=691) 1.1 <=5.9 PARTIAL THROMBOPLASTIN TIME (BEAKER) (test 32.0 seconds 22.5-36.0 hpcx=664) RECOMMENDED COUMADIN/WARFARIN INR THERAPY RANGESSTANDARD DOSE: 2.0 - 3.0 Includes: PROPHYLAXIS forvenous thrombosis, systemic embolization; TREATMENT for venous thrombosis and/or pulmonary embolus.HIGH RISK: Target INR is 2.5-3.5 for patients with mechanical heart valves. SCREEN, [id number] 05: 59:00 Test Item Value Reference Range Comments TEST URINE (BEAKER) (test gmah=649) Negative POCT-GLUCOSE [id number] 05:46:00 Test Item Value Reference Range Comments POC-GLUCOSE METER (BEAKER) 140 mg/dL 70-110 TESTED AT [facility] [address] [facility] (test vyjq=3763) [facility] [address] CBC W/PLT COUNT & AUTO [id number] 05:46:00 Test Item Value Reference Range Comments WHITE BLOOD CELL COUNT (BEAKER) (test oqcy=940) 9.6 K/ L 3.5-10.5 RED BLOOD CELL COUNT (BEAKER) (test xhfa=570) 5.00 M/ L 3.93-5.22 HEMOGLOBIN (BEAKER) (test evgb=290) 14.0 GM/DL 11.2-15.7 HEMATOCRIT (BEAKER) (test ahgo=993) 42.1 % 34.1-44.9 MEAN CORPUSCULAR VOLUME (BEAKER) (test knro=688) 84.2 fL 79.4-94.8 MEAN CORPUSCULAR HEMOGLOBIN (BEAKER) (test 28.0 pg 25.6-32.2 vtua=057) MEAN CORPUSCULAR HEMOGLOBIN CONC (BEAKER) (test 33.3 GM/DL 32.2-35.5 npdi=424) RED CELL DISTRIBUTION WIDTH (BEAKER) (test 13.0 % 11.7-14.4 gqws=263) PLATELET COUNT (BEAKER) (test rwqf=075) 227 K/CU MM 150-450 MEAN PLATELET VOLUME (BEAKER) (test btvk=537) 11.8 fL 9.4-12.3 NUCLEATED RED BLOOD CELLS (BEAKER) (test 0 /100 WBC 0-0 eive=747) NEUTROPHILS RELATIVE PERCENT (BEAKER) (test 52 % qnwu=314) LYMPHOCYTES RELATIVE PERCENT (BEAKER) (test 38 % qkqk=430) MONOCYTES RELATIVE PERCENT (BEAKER) (test 6 % hwzn=378) EOSINOPHILS RELATIVE PERCENT (BEAKER) (test 3 % jwxp=115) BASOPHILS RELATIVE PERCENT (BEAKER) (test 1 % tnbq=597) NEUTROPHILS ABSOLUTE COUNT (BEAKER) (test 5.03 K/ L 1.56-6.13 zgew=200) LYMPHOCYTES ABSOLUTE COUNT (BEAKER) (test 3.62 K/ L 1.18-3.74 lsjg=790) MONOCYTES ABSOLUTE COUNT (BEAKER) (test 0.62 K/ L 0.24-0.36 eyus=995) EOSINOPHILS ABSOLUTE COUNT (BEAKER) (test 0.27 K/ L 0.04-0.36 iaal=413) BASOPHILS ABSOLUTE COUNT (BEAKER) (test 0.05 K/ L 0.01-0.08 awgf=621) IMMATURE GRANULOCYTES-RELATIVE PERCENT (BEAKER) 1 % 0-1 (test oaqk=7173) POCT-GLUCOSE [id number] 21:27:00 Test Item Value Reference Range Comments POC-GLUCOSE METER (BEAKER) 223 mg/dL 70-110 TESTED AT [address] (test phgj=4978) [place] [address] POCT-GLUCOSE [id number] 17:26:00 Test Item Value Reference Range Comments POC-GLUCOSE METER (BEAKER) 223 mg/dL 70-110 TESTED AT [address] (test wotk=9537) [place] [address] BASIC METABOLIC [id number] 16:43:00 Test Item Value Reference Range Comments SODIUM (BEAKER) (test 139 meq/L 136-145 moan=983) POTASSIUM (BEAKER) (test 4.5 meq/L 3.5-5.1 Specimen slightly gjbq=821) hemolyzed CHLORIDE (BEAKER) (test 102 meq/L 98-107 mcuj=283) CO2 (BEAKER) (test 29 meq/L 22-29 ihyq=560) BLOOD UREA NITROGEN 16 mg/dL 7-21 (BEAKER) (test sewn=600) CREATININE (BEAKER) (test 0.76 mg/dL 0.57-1.25 Specimen slightly vnqh=079) hemolyzed GLUCOSE RANDOM (BEAKER) 217 mg/dL 70-105 (test zpyh=552) CALCIUM (BEAKER) (test 9.6 mg/dL 8.4-10.2 xhmv=734) EGFR (BEAKER) (test 81 mL/min/1.73 sq m ESTIMATED GFR IS NOT nege=7910) ACCURATE CREATININE CLEARANCE IN PREDICTING GLOMERULAR FILTRATION RATE. ESTIMATED GFR IS NOT APPLICABLE FOR DIALYSIS PATIENTS. POCT-GLUCOSE [id number] 09:06:00 Test Item Value Reference Range Comments POC-GLUCOSE METER (BEAKER) 265 mg/dL 70-110 TESTED AT [address] (test tady=5516) [place] [address] POCT-GLUCOSE [id number] 00:22:00 Test Item Value Reference Range Comments POC-GLUCOSE METER (BEAKER) 210 mg/dL 70-110 TESTED AT [address] (test pruw=4229) [place] [address] POCT-GLUCOSE [id number] 20:27:00 Test Item Value Reference Range Comments POC-GLUCOSE METER (BEAKER) 235 mg/dL 70-110 TESTED AT [address] (test uatb=1567) [place] [address] POCT-GLUCOSE [id number] 17:10:00 Test Item Value Reference Range Comments POC-GLUCOSE METER (BEAKER) 264 mg/dL 70-110 TESTED AT [address] (test maks=3464) [place] [address] POCT-GLUCOSE [id number] 16:00:00 Test Item Value Reference Range Comments POC-GLUCOSE METER (BEAKER) 242 mg/dL 70-110 TESTED AT [address] (test pjqa=5452) [place] [address] POCT-GLUCOSE [id number] 08:54:00 Test Item Value Reference Range Comments POC-GLUCOSE METER (BEAKER) 224 mg/dL 70-110 TESTED AT [address] (test ejdq=5388) [place] [address] POCT-GLUCOSE [id number] 21:30:00 Test Item Value Reference Range Comments POC-GLUCOSE METER (BEAKER) 254 mg/dL 70-110 TESTED AT [address] (test itoz=9565) [place] [address] POCT-GLUCOSE [id number] 17:23:00 Test Item Value Reference Range Comments POC-GLUCOSE METER (BEAKER) 193 mg/dL 70-110 TESTED AT [address] (test igua=6583) [place] [address] POCT-GLUCOSE [id number] 11:53:00 Test Item Value Reference Range Comments POC-GLUCOSE METER (BEAKER) 179 mg/dL 70-110 TESTED AT [address] (test wmjz=3707) [place] [address] [id number] 10:15:00 Test Item Value Reference Range Comments CORTISOL, TOTAL (BEAKER) (test ydzw=7336) 4.7 ug/dL 3.7-19.4 POCT-GLUCOSE [id number] 08:07:00 Test Item Value Reference Range Comments POC-GLUCOSE METER (BEAKER) 184 mg/dL 70-110 TESTED AT [address] (test suos=6276) [place] [address] CT, BRAIN, WITHOUT [id number] 22:07:00FINAL REPORT CT Head without contrast CLINICAL [...] [place] Verified Date/Time: 06/20/2018 22:07:25 Reading Location: [address] Transitional Reading Room POCT-GLUCOSE [id number] 21:00:00 Test Item Value Reference Range Comments POC-GLUCOSE METER (BEAKER) 227 mg/dL 70-110 TESTED AT [address] (test wrhz=3694) [place] [address] POCT-GLUCOSE [id number] 16:57:00 Test Item Value Reference Range Comments POC-GLUCOSE METER (BEAKER) 216 mg/dL 70-110 TESTED AT [address] (test seck=8039) [place] [id number] POCT-GLUCOSE [id number] 13:11:00 Test Item Value Reference Range Comments POC-GLUCOSE METER (BEAKER) 198 mg/dL 70-110 TESTED AT [address] (test bilf=5203) [place] [id number] POCT-GLUCOSE [id number] 07:47:00 Test Item Value Reference Range Comments POC-GLUCOSE METER (BEAKER) 213 mg/dL 70-110 TESTED AT [address] (test tdaw=0780) [place] [address] BASIC METABOLIC [id number] 06:57:00 Test Item Value Reference Range Comments SODIUM (BEAKER) (test 138 meq/L 136-145 cddq=281) POTASSIUM (BEAKER) (test 3.9 meq/L 3.5-5.1 wtaz=710) CHLORIDE (BEAKER) (test 105 meq/L 98-107 oxsw=617) CO2 (BEAKER) (test 24 meq/L 22-29 nhvb=164) BLOOD UREA NITROGEN 12 mg/dL 7-21 (BEAKER) (test ykxc=574) CREATININE (BEAKER) (test 0.73 mg/dL 0.57-1.25 sdjw=973) GLUCOSE RANDOM (BEAKER) 192 mg/dL 70-105 (test myey=558) CALCIUM (BEAKER) (test 8.8 mg/dL 8.4-10.2 jkln=953) EGFR (BEAKER) (test 85 mL/min/1.73 sq m ESTIMATED GFR IS NOT dpim=5177) ACCURATE CREATININE CLEARANCE IN PREDICTING GLOMERULAR FILTRATION RATE. ESTIMATED GFR IS NOT APPLICABLE FOR DIALYSIS PATIENTS. POCT-GLUCOSE [id number] 05:24:00 Test Item Value Reference Range Comments POC-GLUCOSE METER (BEAKER) 192 mg/dL 70-110 TESTED AT [facility] [address] (test vpim=2828) [facility] [address] [address], [place] [id number] 01:03:00FINAL REPORT CLINICAL HISTORY: Stroke TECHNIQUE: Initially, [...] Verified Date/ Time: 06/20/2018 01:03:44 Reading Location: [address] Transitional Reading Room [facility], [place], [id number] 01:03:00FINAL REPORT CLINICAL HISTORY: Stroke TECHNIQUE: Initially, [...] Verified Date/ Time: 06/20/2018 01:03:44 Reading Location: [address] Reading Room POCT-GLUCOSE [id number] 00:40:00 Test Item Value Reference Range Comments POC-GLUCOSE METER (BEAKER) 283 mg/dL 70-110 TESTED AT [address] (test kxww=8023) [facility] [address] POCT-GLUCOSE [id number] 21:21:00 Test Item Value Reference Range Comments POC-GLUCOSE METER (BEAKER) 343 mg/dL 70-110 TESTED AT [address] (test wimq=0594) [facility] [address] SCREEN, [id number] 18:52:00 Test Item Value Reference Range Comments TEST URINE (BEAKER) (test lqur=735) Negative POCT-GLUCOSE [id number] 17:17:00 Test Item Value Reference Range Comments POC-GLUCOSE METER (BEAKER) 287 mg/dL 70-110 TESTED AT [facility] [address] (test ldfm=6301) [facility] [address] [id number] 15:59:00 Test Item Value Reference Range Comments RPR SCREEN (BEAKER) (test bpen=655) Nonreactive Nonreactive POCT-GLUCOSE [id number] 15:07:00 Test Item Value Reference Range Comments POC-GLUCOSE METER (BEAKER) 323 mg/dL 70-110 TESTED AT [address] (test qpqr=4931) [place] [id number] T4, [id number] 13:11:00 Test Item Value Reference Range Comments FREE T4 (BEAKER) (test ihyn=361) 0.89 ng/dL 0.70-1.48 HIV-1 ANTIGEN WITH HIV-1/2 [id number] 13:11:00 Test Item Value Reference Range Comments HIV-1 ANTIGEN WITH HIV 1\\T\\2 ANTIBODY (2) Nonreactive Nonreactive (BEAKER) (test algd=1442) RAPID DRUG SCREEN, [id number] 12:47:00 Test Item Value Reference Range Comments BARBITURATE URINE (BEAKER) (test bgsq=987) Negative Negative BENZODIAZEPINE SCREEN URINE (BEAKER) (test Negative Negative gfvg=689) COCAINE (METAB.) SCREEN (BEAKER) (test qzap=8172) Negative Negative METHADONE SCREEN (BEAKER) (test iten=9729) Negative Negative OPIATE SCREEN URINE (BEAKER) (test xaiu=437) Negative Negative CANNABINOID SCREEN URINE (BEAKER) (test vclm=177) Negative Negative AMPH/METHAMPH SCREEN (BEAKER) (test omdu=3392) Negative Negative PHENCYCLIDINE SCREEN URINE (BEAKER) (test klcg=213) Negative Negative OXYCODONE SCREEN URINE (BEAKER) (test cymt=9847) Negative Negative DRUG CUTOFF CONC.Cocaine 300 ng/mL Cannabinoid 50 ng/mL Benzodiazepine 200 ng/mLBarbiturate 200 ng/ mLPhencyclidine 25 ng/mLOpiate 300 ng/mLMethadone 300 ng/mLAmphetamine/ 1000 ng/mL MethamphetamineOxycodone 300 ng/mLThis assay provides an unconfirmed qualitative test result for the clinical management of patients in emergency situations. Chain of custody not maintained. Some zaal-gpn-mfogdeb medications, as well as adulterants, may cause inaccurate results. Clinical correlation should be applied. A more comprehensive drug screen or confirmation of a detected drug may be performed upon request.POCT-GLUCOSE [id number] 12:37:00 Test Item Value Reference Range Comments POC-GLUCOSE METER (BEAKER) 292 mg/dL 70-110 TESTED AT [facility] [address] (test qgcq=0114) [facility] [address] HEMOGLOBIN [id number] 12:35:00 Test Item Value Reference Range Comments HEMOGLOBIN A1C (BEAKER) (test tgzc=934) 7.9 % 4.3-6.1 OSMOLALITY, [id number] 12:34:00 Test Item Value Reference Range Comments OSMOLALITY, SERUM (BEAKER) (test sqji=867) 310 mOsm/kg 275-295 C-REACTIVE [id number] 12:28:00 Test Item Value Reference Range Comments C-REACTIVE PROTEIN (BEAKER) (test omib=199) 0.81 mg/dL 0.00-0.50 OSMOLALITY, [id number] 12:22:00 Test Item Value Reference Range Comments OSMOLALITY URINE (BEAKER) (test zvpe=628) 247 mOsm/kg 40-1,400 CBC W/PLT COUNT & AUTO [id number] 12:14:00 Test Item Value Reference Range Comments WHITE BLOOD CELL COUNT (BEAKER) (test jifo=118) 15.1 K/ L 3.5-10.5 RED BLOOD CELL COUNT (BEAKER) (test bhqg=633) 5.15 M/ L 3.93-5.22 HEMOGLOBIN (BEAKER) (test oggg=628) 14.1 GM/DL 11.2-15.7 HEMATOCRIT (BEAKER) (test lkjr=753) 42.3 % 34.1-44.9 MEAN CORPUSCULAR VOLUME (BEAKER) (test supk=708) 82.1 fL 79.4-94.8 MEAN CORPUSCULAR HEMOGLOBIN (BEAKER) (test 27.4 pg 25.6-32.2 jtrc=000) MEAN CORPUSCULAR HEMOGLOBIN CONC (BEAKER) (test 33.3 GM/DL 32.2-35.5 tykq=627) RED CELL DISTRIBUTION WIDTH (BEAKER) (test 12.9 % 11.7-14.4 yrau=503) PLATELET COUNT (BEAKER) (test nzod=327) 278 K/CU MM 150-450 MEAN PLATELET VOLUME (BEAKER) (test wpdj=930) 11.5 fL 9.4-12.3 NUCLEATED RED BLOOD CELLS (BEAKER) (test 0 /100 WBC 0-0 wdug=626) NEUTROPHILS RELATIVE PERCENT (BEAKER) (test 87 % jjfl=522) LYMPHOCYTES RELATIVE PERCENT (BEAKER) (test 10 % mmaf=538) MONOCYTES RELATIVE PERCENT (BEAKER) (test 3 % cvoz=671) EOSINOPHILS RELATIVE PERCENT (BEAKER) (test 0 % tjic=017) BASOPHILS RELATIVE PERCENT (BEAKER) (test 0 % mkra=345) NEUTROPHILS ABSOLUTE COUNT (BEAKER) (test 13.06 K/ L 1.56-6.13 iedl=168) LYMPHOCYTES ABSOLUTE COUNT (BEAKER) (test 1.51 K/ L 1.18-3.74 tvxc=918) MONOCYTES ABSOLUTE COUNT (BEAKER) (test 0.38 K/ L 0.24-0.36 fmym=193) EOSINOPHILS ABSOLUTE COUNT (BEAKER) (test 0.00 K/ L 0.04-0.36 ttil=259) BASOPHILS ABSOLUTE COUNT (BEAKER) (test 0.02 K/ L 0.01-0.08 xryr=363) IMMATURE GRANULOCYTES-RELATIVE PERCENT (BEAKER) 1 % 0-1 (test zlzr=7239) POCT-GLUCOSE [id number] 10:30:00 Test Item Value Reference Range Comments POC-GLUCOSE METER (BEAKER) 341 mg/dL 70-110 TESTED AT [address] (test qwtj=2261) [facility] [id number] [id number] 06:17:00 Test Item Value Reference Range Comments PROLACTIN (BEAKER) (test jfos=727) 23.34 ng/mL 5.18-26.53 POCT-GLUCOSE [id number] 05:55:00 Test Item Value Reference Range Comments POC-GLUCOSE METER (BEAKER) 285 mg/dL 70-110 TESTED AT [address] (test lkzy=7133) [facility] [id number] MR, BRAIN, [id number] 02:25:00Pituitary protocolCr 0.6FINAL REPORT MRI brain with and without contrast Comparison: None. 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 Discussion: Multiplanar MR imaging of the brain and sella was provided [id number]-[id number] IV gadolinium administration using T1, T2, FLAIR, [...] MDReport Verified Date/Time: 06/19/2018 02:25:15 Reading Location: [address] Body Reading Room TSH/FREE T4 IF [id number] 00:26:00 Test Item Value Reference Range Comments THYROID STIMULATING HORMONE (BEAKER) (test 0.41 uIU/mL 0.35-4.94 aizr=084) BASIC METABOLIC [id number] 00:07:00 Test Item Value Reference Range Comments SODIUM (BEAKER) (test 136 meq/L 136-145 rnig=352) POTASSIUM (BEAKER) (test 4.0 meq/L 3.5-5.1 zhlr=314) CHLORIDE (BEAKER) (test 103 meq/L 98-107 ntms=024) CO2 (BEAKER) (test 20 meq/L 22-29 skbs=540) BLOOD UREA NITROGEN 11 mg/dL 7-21 (BEAKER) (test hnbo=247) CREATININE (BEAKER) (test 0.84 mg/dL 0.57-1.25 fosr=016) GLUCOSE RANDOM (BEAKER) 357 mg/dL 70-105 (test lihi=417) CALCIUM (BEAKER) (test 9.0 mg/dL 8.4-10.2 gpkq=303) EGFR (BEAKER) (test 72 mL/min/1.73 sq m ESTIMATED GFR IS NOT xdsx=5162) ACCURATE CREATININE CLEARANCE IN PREDICTING GLOMERULAR FILTRATION RATE. ESTIMATED GFR IS NOT APPLICABLE FOR DIALYSIS PATIENTS. URINALYSIS W/ REFLEX URINE [id number] 23:13:00 Test Item Value Reference Range Comments COLOR (BEAKER) (test hnae=876) Yellow CLARITY (BEAKER) (test aulq=721) Clear SPECIFIC GRAVITY UA (BEAKER) (test jpna=021) 1.011 1.001-1.035 PH UA (BEAKER) (test okob=731) 5.0 5.0-8.0 PROTEIN UA (BEAKER) (test ylfk=254) Negative Negative GLUCOSE UA (BEAKER) (test frlj=485) >1000 mg/dL Negative KETONES UA (BEAKER) (test ovzx=918) 20 mg/dL Negative BILIRUBIN UA (BEAKER) (test sqwv=565) Negative Negative BLOOD UA (BEAKER) (test qwrk=244) Negative Negative NITRITE UA (BEAKER) (test bvcd=675) Negative Negative LEUKOCYTE ESTERASE UA (BEAKER) (test sniv=157) Negative Negative UROBILINOGEN UA (BEAKER) (test rhcr=552) 0.2 mg/dL 0.2-1.0 RBC UA (BEAKER) (test oaqh=042) < /HPF WBC UA (BEAKER) (test hbef=717) < /HPF SQUAMOUS EPITHELIAL (BEAKER) (test tonc=082) < /HPF SOURCE(BEAKER) (test bvcq=2541)
--- OUTSIDE RECORDS SUMMARY | 2018-10-13 11:42 | XMS REPORT ---
[...] [facility] [id number] 50-12.5 MG Active 1 tablet Potassium-HCTZ Orally Once a day Results No Known Results Summary Purpose eClinicalWorks Submission
--- OUTSIDE RECORDS SUMMARY | 2018-10-13 11:42 | XMS REPORT ---
[...] End Status Dosage System Date Date Hydrochlorothiazide [facility] 86175969834 12.5 MG Orally Jun 07, Active 1 tablet Once a day 2018 in the morning Levothyroxine Sodium ND 04051173697 88 MCG Oral Active TAKE 1 TABLET BY MOUTH EVERY MORNING Metformin HCl [facility] [address]-22 500 MG Orally Active 1 1/2 bid tablets with a meal Amlodipine Besylate ND 58933693522 10 MG Orally Active 1 tablet Once a day Hydrocortisone ND 01068099538 10 MG Orally Active 1 tablet every 12 hrs with food or milk Losartan [facility] 46753169734 50-12.5 MG Active 1 tablet Potassium-HCTZ Orally Once a day GlyBURIDE [facility] [address]-72 5 MG Orally Active 1/2 tablet BID with breakfast or the first main meal of the day Losartan Potassium [facility] 88831992284 50 MG Orally Active 1 tablet Once a day Results No Known Results Summary Purpose eClinicalWorks Submission
[2018-10-13 12:51] LABS: Absolute Monocytes 0.5 K/uL (0.1-1.3); Absolute Neutrophil 9.3 K/uL (1.8-8.0); Basophils % 1.1 % (0-1.3); Eosinophils % 1.4 % (0-4.4); Hematocrit 45.3 % (36.0-45.0); Lymphocytes % 22.8 % (15.3-44.8); MPV 9.7 fL (7.6-11.3); Monocytes % 3.9 % (3.3-12.3); RBC Red Blood Cell Count 5.62 M/uL (3.86-4.86)
[2018-10-13 13:09] LABS: ALT/SGPT 84 U/L (12-78); AST/SGOT 35 U/L (15-37); Albumin 3.5 g/dL (3.4-5.0); Alkaline Phosphatase 93 U/L (45-117); BUN Blood Urea Nitrogen 10 mg/dL (7-18); Bicarbonate 30 mmol/L (21-32); Bilirubin Direct 0.1 mg/dL (0-0.2); Bilirubin Total 0.5 mg/dL (0.2-1.0); Glucose Level 208 mg/dL (74-106); NT PRO-BNP 49 pg/mL (<125); Potassium 3.9 mmol/L (3.5-5.1); Protein, Total 7.7 g/dL (6.4-8.2); Sodium Level 138 mmol/L (136-145); Troponin (Emerg Dept Use Only) < 0.02 ng/mL (0.0-0.045)
--- NOTE | 2018-10-13 13:09 | RAD REPORT ---
EXAM DESCRIPTION: RAD - Chest Single View - 10/13/2018 12:56 pm CLINICAL HISTORY: left shoulder/chest pain Chest pain. COMPARISON: Chest Single View dated 07/12/2018; Chest Single View dated 06/30/2018; Chest Single View dated 06/18/2018; Chest Single View dated 06/04/2018 FINDINGS: Portable technique limits examination quality. The lungs are grossly clear. The heart is normal in size. No displaced fractures. IMPRESSION: No acute intrathoracic process suspected.
[2018-10-13 13:23] LABS: Blood Morphology Comment NOT SEEN (NOT SEEN); Platelet Estimate ADEQ
--- NOTE | 2018-10-13 13:58 | RAD REPORT ---
EXAM DESCRIPTION: US - Extrem Venous W Compress Efren - 10/13/2018 1:48 pm CLINICAL HISTORY: Pain;Swelling Bilateral leg edema and swelling. COMPARISON: <Comparisons> TECHNIQUE: Real-time sonographic interrogation of the left and right lower extremity deep venous sys tems was performed. FINDINGS: Normal compressibility, flow augmentation, phasic flow and spontaneous flow is identified in both the left and right lower extremity deep venous systems. IMPRESSION: No sonographic evidence of left or right lower extremity deep venous thrombosis.
[2018-10-13] MEDS ORDERED: MAGNE/ALUM HYDROXD 30 ML UCUP ONE (14:35)
[2018-10-13] MEDS ORDERED: KETOROLAC 30 MG/ML INJ ONE (14:36)
[2018-10-13] MEDS ORDERED: FAMOTIDINE 20 MG/2 ML VIAL IV ONE (14:36)
[2018-10-13] MEDS ORDERED: LIDOCAINE VISCOUS 2% SOLN 15 ML UDC ONE (14:36)
--- NOTE | 2018-10-13 15:34 | RAD REPORT ---
EXAM DESCRIPTION: RAD - Shoulder Left 2 View - 10/13/2018 3:14 pm CLINICAL HISTORY: PAIN COMPARISON: No comparisons FINDINGS: No fracture or dislocation suspected.
[2018-10-13 17:01] LABS: Urine Blood NEGATIVE (NEG); Urine Glucose NEGATIVE (NEG); Urine Protein NEGATIVE (NEG); Urine pH 6.5 (5.0-7.0)
--- NOTE | 2018-10-13 17:06 | EDPHYS ---
Physician Documentation [facility] Name: Chantal Stout Age: 48 yrs Sex: Female : 1970 Arrival Date: 10/13/2018 Time: 11:25 Bed 7 Private MD: Marco Weiss HPI: 10/13 12:35 This 48 yrs old Female presents to ER via Ambulatory with complaints of Chest cp Pain, Shoulder Pain, Leg Swelling. 12:35 The patient or guardian complains of pain, that is acute, tenderness, painful ROM. left cp shoulder. Onset: The symptoms/episode began/occurred this morning, at 07:00. 12:35 Associated signs and symptoms: Pertinent positives: chest pain, shortness of breath, cp tingling, Pertinent negatives: abdominal pain, diaphoresis, neck pain, Weakness in left arm. 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 LMP N/A - Post-menopause hj Historical: - Allergies: 11:35 Bactrim; hj 11:35 Cephalexin; hj 11:35 Codeine; 11:35 Iodine; hj 11:35 Levaquin; hj 11:35 Sulfa (Sulfonamide Antibiotics); hj - Home Meds: 11:35 amlodipine 10 mg tab 1 tab once daily [Active]; glyburide 5 mg Oral tab 1 tab once hj daily [Active]; hydrocortisone 10 mg Oral tab 1 tab 2 times per day [Active]; levothyroxine 75 mcg tab 1 tab once daily [Active]; losartan 50 mg Oral tab 1 tab once daily [Active]; metformin 750 mg Oral Tb24 1 tab twice a day [Active]; omeprazole 20 mg Oral cpDR 1 cap once daily [Active]; Xhance [Active]; - PMHx: 11:35 Anemia; Asthma; Diabetes - NIDDM; Hypertension; Hypothyroidism; pituitary tumor- hj surgically removed Jun 24; - PSHx: 11:35 Tonsillectomy; Pituitary tumor; cervical tumor removal; hj - Immunization history:: Adult Immunizations up to date. - Social history:: Smoking status: Patient/guardian denies using tobacco, Patient/guardian denies using alcohol. - Ebola Screening: : Patient negative for fever greater than or equal to 101.5 degrees Fahrenheit, and additional compatible Ebola Virus Disease symptoms Patient denies exposure to infectious person Patient denies travel to an Ebola-affected area in the 21 days before illness onset. ROS: 12:38 Constitutional: Negative for body aches, chills, fever, poor PO intake. cp 12:38 Eyes: Negative for injury, pain, redness, and discharge. cp 12:38 ENT: Negative for drainage from ear(s), ear pain, sore throat, difficulty swallowing, difficulty handling secretions. 12:38 Cardiovascular: Positive for chest pain, edema, Negative for palpitations. 12:38 Respiratory: Positive for shortness of breath, Negative for cough, wheezing. 12:38 Abdomen/GI: Negative for abdominal pain, nausea, vomiting, and diarrhea, constipation, black/tarry stool, rectal bleeding. 12:38 Back: Negative for pain at rest, pain with movement, radiated pain. 12:38 : Negative for urinary symptoms. 12:38 MS/extremity: Positive for pain, of the left shoulder, Negative for injury or acute deformity, decreased range of motion, paresthesias. 12:38 Skin: Negative for cellulitis, rash. 12:38 Neuro: Negative for altered mental status, headache, numbness, weakness. 12:38 All other systems are negative. Exam: 12:40 ECG was reviewed by the Attending Physician. cp 12:45 Constitutional: The patient appears in no acute distress, alert, awake, cp non-diaphoretic, non-toxic, well developed, well nourished, obese. 12:45 Head/Face: Normocephalic, atraumatic. Eyes: Pupils equal round and reactive to light, cp extra-ocular motions intact. Lids and lashes normal. Conjunctiva and sclera are non-icteric and not injected. Cornea within normal limits. Periorbital areas with no swelling, redness, or edema. ENT: Nares patent. No nasal discharge, no septal abnormalities noted. Tympanic membranes are normal and external auditory canals are clear. Oropharynx with no redness, swelling, or masses, exudates, or evidence of obstruction, uvula midline. Mucous membranes moist. Neck: Trachea midline, no thyromegaly or masses palpated, and no cervical lymphadenopathy. Supple, full range of motion without nuchal rigidity, or vertebral point tenderness. No Meningismus. 12:45 Chest/axilla: Inspection: normal, Palpation: crepitus, is not appreciated, tenderness, that is mild, of the left clavicle and anterior aspect of left upper chest, that partially reproduces the patient's complaints. 12:45 Cardiovascular: Rate: normal, Rhythm: regular, Pulses: Pulses are 2+ in right radial artery and left radial artery. Heart sounds: murmur, not appreciated, Edema: ankle edema, that is mild, JVD: is not appreciated. 12:45 Respiratory: the patient does not display signs of respiratory distress, Respirations: normal, no use of accessory muscles, no retractions, no splinting, no tachypnea, labored breathing, is not present, Breath sounds: are clear throughout, no decreased breath sounds, no stridor, no wheezing. 12:45 Abdomen/GI: Inspection: obese Bowel sounds: active, all quadrants, Palpation: abdomen is soft and non-tender, in all quadrants, voluntary guarding, is not appreciated, involuntary guarding, is not appreciated. 12:45 Back: pain, is absent, ROM is normal. 12:45 Musculoskeletal/extremity: ROM: limited passive range of motion due to pain, in the left shoulder, Sensation intact. Joints: All joints are normal except the left shoulder displays painful range of motion, tenderness of lateral shoulder. 12:45 Skin: cellulitis, is not appreciated, no rash present. 12:45 Neuro: Orientation: to person, place \T\ time. Mentation: is normal, Cerebellar function: is grossly normal, Motor: moves all fours, strength is normal, Sensation: is normal. Vital Signs: 11:37 BP 107 / 72; Pulse 87; Resp 18; Temp 97.9(O); Pulse Ox 96% on R/A; Weight 136.08 kg; hj Height 5 ft. 4 in. (162.56 cm); Pain 5/10; 12:46 BP 131 / 83; Pulse 83 MON; Resp 18; Pulse Ox 96% ; sv 13:57 BP 138 / 90; Pulse 83 MON; Resp 18; Pulse Ox 98% on R/A; sv 14:35 BP 124 / 82; Pulse 79 MON; Resp 17; Pulse Ox 96% on R/A; sv 15:23 BP 138 / 96; Pulse 80; Resp 18; Pulse Ox 96% ; sv 16:32 BP 131 / 88; Pulse 87; Resp 16; Pulse Ox 98% ; sv 17:00 BP 130 / 88; Pulse 82; Resp 18; Pulse Ox 99% ; sv 11:37 Body Mass Index 51.50 (136.08 kg, 162.56 cm) hj 12:46 Sinus Rhythm sv 13:57 Sinus Rhythm sv 14:35 Sinus Rhythm sv MDM: 12:27 Patient medically screened. cp 13:00 Differential diagnosis: tendonitis, rotator cuff injury, chest wall pain, cp costochondritis, pulmonary embolism, pneumothorax. 17:05 Data reviewed: vital signs, nurses notes, lab test result(s), EKG, radiologic studies, cp plain films. 17:05 Test interpretation: by ED physician or midlevel provider: ECG, plain radiologic cp studies. 17:05 Counseling: I had a detailed discussion with the patient and/or guardian regarding: the cp historical points, exam findings, and any diagnostic results supporting the discharge/admit diagnosis, lab results, radiology results, the need for outpatient follow up, a family practitioner, to return to the emergency department if symptoms worsen or persist or if there are any questions or concerns that arise at home. Response to treatment: the patient's symptoms have mildly improved after treatment, and as a result, I will discharge patient. Special discussion: Based on the patient's history, exam, and Dx evaluation, there is no indication for emergent intervention or inpatient Tx. It is understood by the patient/guardian that if the Sx's persist or worsen they need to return immediately for re-evaluation. ED course: VSS. Initial and repeat troponin and EKG negative. Recommend rest of right shoulder, sling given and will discharge to home for continued monitoring. 10/13 12:33 Order name: Basic Metabolic Panel; Complete Time: 13:30 cp 10/13 12:33 Order name: CBC with Diff; Complete Time: 13:30 cp 10/13 13:30 Interpretation: Normal except: WBC 13.1; RBC 5.62; HCT 45.3; MCH 26.8; NEUT A 9.3. cp 10/13 12:33 Order name: LFT's; Complete Time: 13:30 cp 10/13 12:33 Order name: Magnesium; Complete Time: 13:30 cp 10/13 12:33 Order name: NT PRO-BNP; Complete Time: 13:30 cp 10/13 12:33 Order name: PT-INR; Complete Time: 13:30 cp 10/13 12:33 Order name: Troponin (emerg Dept Use Only); Complete Time: 13:30 cp 10/13 13:30 Interpretation: TROPED < 0.02; Reviewed. cp 10/13 12:33 Order name: XRAY Chest (1 view); Complete Time: 13:30 cp 10/13 12:33 Order name: D-Dimer; Complete Time: 13:30 cp 10/13 12:33 Order name: US Extremity Venous W Compression Efren; Complete Time: 13:59 cp 10/13 13:59 Interpretation: Report reviewed. cp 10/13 12:58 Order name: Manual Differential; Complete Time: 13:30 EDMS 10/13 15:02 Order name: XRAY Shoulder LEFT 2 view; Complete Time: 17:04 cp 10/13 15:57 Order name: Troponin I; Complete Time: 17:04 cp 10/13 16:46 Order name: Urine Dipstick--Ancillary (enter results); Complete Time: 17:04 bd 10/13 11:27 Order name: EKG; Complete Time: 11:27 hj 10/13 12:33 Order name: Cardiac monitoring; Complete Time: 12:34 cp 10/13 12:33 Order name: EKG - Nurse/Tech; Complete Time: 12:34 cp 10/13 12:33 Order name: IV Saline Lock; Complete Time: 12:34 cp 10/13 12:33 Order name: Labs collected and sent; Complete Time: 12:34 cp 10/13 12:33 Order name: O2 Per Protocol; Complete Time: 12:34 cp 10/13 12:33 Order name: O2 Sat Monitoring; Complete Time: 12:34 cp 10/13 12:33 Order name: Urine Test (obtain specimen); Complete Time: 12:34 cp 10/13 12:33 Order name: Urine Dipstick-Ancillary (obtain specimen); Complete Time: 12:34 cp 10/13 15:57 Order name: EKG; Complete Time: 15:57 cp 10/13 15:57 Order name: EKG - Nurse/Tech; Complete Time: 16:33 cp 10/13 17:10 Order name: Sling; Complete Time: 18:11 cp EC:40 Rate is 94 beats/min. Rhythm is regular. LA interval is normal. QRS interval is normal. cp QT interval is normal. Interpreted by me. Reviewed by me. Administered Medications: 14:31 Drug: Pepcid 20 mg {Note: was diluted in a 10 mls of NS, while administering about 2 sv mls pt c/o burning sensation going up her right arm. I flushed with NS flush and pt stated that it was not burning anymore. Attempted to give more Pepcid and pt stated that it was burning..} Route: IVP; Site: right forearm; 15:00 Follow up: Response: No adverse reaction sv 14:32 Not Given (Patient Refused): TORadol 30 mg IVP once sv 14:32 Drug: GI Cocktail without - (Maalox Suspension 30 ml, Lidocaine Liquid 2 % 15 sv ml) Route: PO; 15:00 Follow up: Response: No adverse reaction sv Disposition: 10/14 07:29 Co-signature as Attending Physician, Marco Vargas MD I agree with the assessment and manuela plan of care. Disposition: 10/13/18 17:06 Discharged to Home. Impression: Pain in left shoulder, Chest pain, unspecified. - Condition is Stable. - Discharge Instructions: Nonspecific Chest Pain, Shoulder Pain, Aspirin and Your Heart. - Prescriptions for Cyclobenzaprine 10 mg Oral Tablet - take 1 tablet by ORAL route every 8 hours As needed no driving while taking medication; 20 tablet. Diclofenac Sodium 75 mg Oral Tablet, Delayed Release (E.C.) - take 1 tablet by ORAL route 2 times per day; 20 tablet. - Medication Reconciliation Form, Thank You Letter, Antibiotic Education, Prescription Opioid Use form. - Follow up: Private Physician; When: 2 - 3 days; Reason: Recheck today's complaints. - Problem is new. - Symptoms have improved. Signatures: Dispatcher [employer] Zuleima Akins RN RN sv Anderson, Corey, MD MD cha Joaquin, Henry RN RN Marco Miranda PA PA cp Corrections: (The following items were deleted from the chart) 10/13 18:12 17:06 10/13/2018 17:06 Discharged to Home. Impression: Pain in left shoulder; Chest sv pain, unspecified. Condition is Stable. Forms are Medication Reconciliation Form, Thank You Letter, Antibiotic Education, Prescription Opioid Use. Follow up: Private Physician; When: 2 - 3 days; Reason: Recheck today's complaints. Problem is new. Symptoms have improved. cp
--- NOTE | 2018-10-13 17:06 | ER ---
Nurse's Notes [facility] Name: Chantal Stout Age: 48 yrs Sex: Female : 1970 Arrival Date: 10/13/2018 Time: 11:25 Bed 7 Private MD: Diagnosis: Pain in left shoulder;Chest pain, unspecified Presentation: 10/13 11:32 Presenting complaint: Patient states: i have this chest pain around 7 am today, was hj sitting on chair, getting ready for yazidi, like a squeezing pain, that comes and goes on the L upper chest, then moments later, it moves to my L arm and back; denies N/V; pain is 5/10; reports SOB;. Transition of care: patient was not received from another setting of care. Onset of symptoms was October 13, 2018. Risk Assessment: Do you want to hurt yourself or someone else? Patient reports no desire to harm self or others. Initial Sepsis Screen: Does the patient meet any 2 criteria? No. Patient's initial sepsis screen is negative. Does the patient have a suspected source of infection? No. Patient's initial sepsis screen is negative. Care prior to arrival: None. 11:32 Method Of Arrival: Ambulatory 11:32 Acuity: NOÉ 3 hj Triage Assessment: 11:36 General: Appears in no apparent distress. uncomfortable, Behavior is calm, cooperative, hj appropriate for age. Pain: Complains of pain in chest Pain radiates to left arm Pain currently is 5 out of 10 on a pain scale. Quality of pain is described as squeezing. Cardiovascular: Capillary refill < 3 seconds Patient's skin is warm and dry. 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:37 LMP N/A - Post-menopause Historical: - Allergies: 11:35 Bactrim; hj 11:35 Cephalexin; hj 11:35 Codeine; hj 11:35 Iodine; hj 11:35 Levaquin; hj 11:35 Sulfa (Sulfonamide Antibiotics); hj - Home Meds: 11:35 amlodipine 10 mg tab 1 tab once daily [Active]; glyburide 5 mg Oral tab 1 tab once hj daily [Active]; hydrocortisone 10 mg Oral tab 1 tab 2 times per day [Active]; levothyroxine 75 mcg tab 1 tab once daily [Active]; losartan 50 mg Oral tab 1 tab once daily [Active]; metformin 750 mg Oral Tb24 1 tab twice a day [Active]; omeprazole 20 mg Oral cpDR 1 cap once daily [Active]; Xhance [Active]; - PMHx: 11:35 Anemia; Asthma; Diabetes - NIDDM; Hypertension; Hypothyroidism; pituitary tumor- hj surgically removed Jun 24; - PSHx: 11:35 Tonsillectomy; Pituitary tumor; cervical tumor removal; hj - Immunization history:: Adult Immunizations up to date. - Social history:: Smoking status: Patient/guardian denies using tobacco, Patient/guardian denies using alcohol. - Ebola Screening: : Patient negative for fever greater than or equal to 101.5 degrees Fahrenheit, and additional compatible Ebola Virus Disease symptoms Patient denies exposure to infectious person Patient denies travel to an Ebola-affected area in the 21 days before illness onset. Screenin:36 Abuse screen: Denies threats or abuse. Denies injuries from another. Nutritional hj screening: No deficits noted. Tuberculosis screening: No symptoms or risk factors identified. Fall Risk None identified. Assessment: 11:36 Pain: Pain began 4 hours ago. hj 12:44 General: Appears in no apparent distress. uncomfortable, obese, well developed, sv Behavior is calm, cooperative, appropriate for age. Pain: Complains of pain in anterior aspect of left upper chest Pain radiates to anterior aspect of left shoulder Pain currently is 5 out of 10 on a pain scale. Pain began 0700 Is intermittent. Neuro: Level of Consciousness is awake, alert, obeys commands, Oriented to person, place, time, situation, Moves all extremities. Full function Speech is normal. Cardiovascular: Patient's skin is warm and dry. Rhythm is sinus rhythm. Respiratory: Airway is patent Respiratory effort is even, unlabored, Respiratory pattern is regular, symmetrical. Derm: Skin is pink, warm \T\ dry. 14:25 Reassessment: Patient appears in no apparent distress at this time. No changes from sv previously documented assessment. Patient and/or family updated on plan of care and expected duration. Pain level reassessed. Patient is alert, oriented x 3, equal unlabored respirations, skin warm/dry/pink. GI: Reports indigestion. 16:30 Reassessment: Patient appears in no apparent distress at this time. Patient and/or sv family updated on plan of care and expected duration. Pain level reassessed. Patient is alert, oriented x 3, equal unlabored respirations, skin warm/dry/pink. 18:12 Reassessment: Patient appears in no apparent distress at this time. Patient and/or sv family updated on plan of care and expected duration. Pain level reassessed. Patient is alert, oriented x 3, equal unlabored respirations, skin warm/dry/pink. Patient states feeling better. Patient states symptoms have improved. Vital Signs: 11:37 BP 107 / 72; Pulse 87; Resp 18; Temp 97.9(O); Pulse Ox 96% on R/A; Weight 136.08 kg; hj Height 5 ft. 4 in. (162.56 cm); Pain 5/10; 12:46 BP 131 / 83; Pulse 83 MON; Resp 18; Pulse Ox 96% ; sv 13:57 BP 138 / 90; Pulse 83 MON; Resp 18; Pulse Ox 98% on R/A; sv 14:35 BP 124 / 82; Pulse 79 MON; Resp 17; Pulse Ox 96% on R/A; sv 15:23 BP 138 / 96; Pulse 80; Resp 18; Pulse Ox 96% ; sv 16:32 BP 131 / 88; Pulse 87; Resp 16; Pulse Ox 98% ; sv 17:00 BP 130 / 88; Pulse 82; Resp 18; Pulse Ox 99% ; sv 11:37 Body Mass Index 51.50 (136.08 kg, 162.56 cm) hj 12:46 Sinus Rhythm sv 13:57 Sinus Rhythm sv 14:35 Sinus Rhythm sv ED Course: 11:25 Patient arrived in ED. as 11:34 Triage completed. hj 11:36 Arm band placed on right wrist. hj 11:36 Patient has correct armband on for positive identification. Placed in gown. Bed in low hj position. Call light in reach. Side rails up X 1. Adult w/ patient. alarm security or surveillance monitor on. 11:38 Patient maintains SpO2 saturation greater than 95% on room air. hj 12:27 Marco Barnhart PA is PHCP. cp 12:27 Marco Vargas MD is Attending Physician. cp 12:32 Zuleima Ivory, ALCIDES is Primary Nurse. sv 12:33 Initial lab(s) drawn, by me, sent to lab. Urine collected: clean catch specimen, clear, ms EKG done, by ED staff, reviewed by Marco Vargas MD. Inserted saline lock: 20 gauge in right forearm, using aseptic technique. Blood collected. 12:47 Awaiting lab results. sv 12:50 X-ray(s) taken. sv 12:56 XRAY Chest (1 view) In Process Unspecified. EDMS 13:20 Ultrasound completed. Patient tolerated well. sg3 13:48 US Extremity Venous W Compression Efren In Process Unspecified. EDMS 15:12 XRAY Shoulder LEFT 2 view In Process Unspecified. EDMS 18:11 No provider procedures requiring assistance completed. IV discontinued, intact, sv bleeding controlled, No redness/swelling at site. Pressure dressing applied. Sling applied to left arm. Administered Medications: 14:31 Drug: Pepcid 20 mg {Note: was diluted in a 10 mls of NS, while administering about 2 sv mls pt c/o burning sensation going up her right arm. I flushed with NS flush and pt stated that it was not burning anymore. Attempted to give more Pepcid and pt stated that it was burning..} Route: IVP; Site: right forearm; 15:00 Follow up: Response: No adverse reaction sv 14:32 Not Given (Patient Refused): TORadol 30 mg IVP once sv 14:32 Drug: GI Cocktail without - (Maalox Suspension 30 ml, Lidocaine Liquid 2 % 15 sv ml) Route: PO; 15:00 Follow up: Response: No adverse reaction sv Outcome: 17:06 Discharge ordered by . cp 18:12 Discharged to home via wheelchair, with family. sv 18:12 Condition: stable 18:12 Condition: improved 18:12 Discharge instructions given to patient, family, Instructed on discharge instructions, follow up and referral plans. no drinking with medication, no driving heavy equipment, medication usage, arm sling application Demonstrated understanding of instructions, follow-up care, medications, arm sling application Prescriptions given X 2. 18:12 Patient left the ED. sv Signatures: Dispatcher [employer] EDZuleima Tyler RN RN sv Martinez, Amelia as Solis, Maria ms Joaquin, Henry, RN RN hj Page, Corey, PA PA cp Godinez, Sarah sg3 Corrections: (The following items were deleted from the chart) 11:40 11:37 Pulse 91bpm; Resp 18bpm; Pulse Ox 96% RA; Temp 97.9F Oral; 136.08 kg; Height 5 hj ft. 4 in.; BMI: 51.4; Pain 5/10; hj 11:40 11:37 Pulse 87bpm; Resp 18bpm; Pulse Ox 96% RA; Temp 97.9F Oral; 136.08 kg; Height 5 hj ft. 4 in.; BMI: 51.5; Pain 5/10; hj 13:58 13:57 Pulse 83bpm; Monitor: Sinus RhythmResp 18bpm; Pulse Ox 98% RA; sv sv
[2018-10-13 18:27] VITALS: TEMP 97.9
[2018-10-13 18:41] VITALS: BP 131/88; O2SAT 98
--- NOTE | 2018-10-14 08:50 | EKG ---
Test Date: 2018-10-13 Test Time: 16:27:58 Glaciologist: MEASUREMENT RESULTS: Intervals: Rate: 75 TX: 150 QRSD: 84 QT: 392 QTc: 437 [place]: P: 59 TX: 150 QRS: 26 T: 32 INTERPRETIVE STATEMENTS: Normal sinus rhythm Normal ECG Compared to ECG 07/12/2018 16:31:50 No significant changes Electronically Signed On 10-14-18 08:50:05 CDT by Raymond Torres
--- NOTE | 2018-10-14 08:52 | EKG ---
Test Date: 2018-10-13 Test Time: 11:31:01 Lead Loader: CATY MEASUREMENT RESULTS: Intervals: Rate: 94 MS: 140 QRSD: 76 QT: 358 QTc: 447 [place]: P: 69 MS: 140 QRS: 52 T: 30 INTERPRETIVE STATEMENTS: Normal sinus rhythm Normal ECG Compared to ECG 07/12/2018 16:31:50 No significant changes Electronically Signed On 10-14-18 08:50:41 CDT by Raymond Torres
== END 2018-10-13 18:12 | disposition home or self-care (01) ==
LOC: ER 11:24
DX: R07.9 Chest pain, unspecified (principal); M25.512 Pain in left shoulder; Z88.1 Allergy status to other antibiotic agents; Z88.6 Allergy status to analgesic agent; Z91.09 Other allergy status, other than to drugs and biological substances; Z88.2 Allergy status to sulfonamides; E11.9 Type 2 diabetes mellitus without complications; E03.9 Hypothyroidism, unspecified; I10 Essential (primary) hypertension; J45.909 Unspecified asthma, uncomplicated
CPT/HCPCS: 36415; 71045; 80048; 80076; 81003; 83735; 83880; 84484; 85025; 85379; 85610; 93005; 93970; 96374; 99285

== ENCOUNTER 2018-11-02 07:32 | Emergency (ER) | payer BC ==
--- OUTSIDE RECORDS SUMMARY | 2018-11-02 07:35 | XMS REPORT | Clinical Summary ---
:1970 Author Organization [facility] Address [address] [place] [address] Care Team Providers Name Role Phone Pcp, [...] packet by 3 packet 5 06/25/2018 Active drlyj-iqqrlo-lbynva Nasal route 2 bottle (NEILMED (two) times [...] MD Mezrahi, Maria, MD 06/18/2018 Travel after 11/01/2017 Family History Medical History Relation Name Comments [...] Taken Blood Pressure 125/71 06/27/2018 12:09 PM INSURANCE PRODUCER Pulse 63 06/27/2018 12:09 PM INSURANCE PRODUCER Temperature 36.2 C (97.1 F) 06/27/2018 12:09 PM INSURANCE PRODUCER Respiratory Rate 18 06/27/2018 12:09 PM INSURANCE PRODUCER Oxygen Saturation 97% 06/27/2018 12:09 PM INSURANCE PRODUCER Inhaled Oxygen Concentration - - Weight 122.5 kg (270 lb) 06/18/2018 9:00 PM INSURANCE PRODUCER Height 162.6 cm (5' 4") 06/18/2018 9:00 PM INSURANCE PRODUCER Body Mass Index 46.35 06/18/2018 9:00 PM INSURANCE PRODUCER Plan of Treatment Date Type Specialty Care Team Description 11/15/2018 Appointment Radiology Alex Ruano MD [address] [address] [phone] Implants Implanted Type Area Motorboat Mechanic Helper Device Shelf Model / Identifier Expiration Serial / Date Lot Sealant Durasl Spine 5ml [id number] - [id number] Cement/Fi N/A: [employer]TE[employer]RA [employer]IF[employer]CI 10/21/2019 [id number] / Implanted: Qty: 1 on 06/24/2018 by Alex Ruano MD ller/[place] / sive [id number] [facility] Full Strlprep 10ml [id number] - [id number] Cement/Fi N/A: FUNES: BIOSCI 11/18/2019 [id number] / Implanted: Qty: 1 on 06/24/2018 by Alex Ruano MD ller/[place] [employer] / sive [id number] Graft Matrix Dura 1x3 [id number] - [id number] Neuro N/A: [employer] 02/20/2020 [id number] / Implanted: Qty: 1 on 06/24/2018 by Alex Ruano MD Head SURGICAL / NAVIGATION [id number] Procedures Procedure Name Priority Date/Time Associated Comments Diagnosis INTRAOPERATIVE PATH 06/29/2018 1:00 REPORT - SCAN PM INSURANCE PRODUCER RHYTHM STRIP - SCAN 06/29/2018 1:00 PM INSURANCE PRODUCER POCT-GLUCOSE METER Routine 06/27/2018 12:07 Results for this PM INSURANCE PRODUCER procedure are in the results section. POCT-GLUCOSE METER Routine 06/27/2018 7:41 Results for this AM INSURANCE PRODUCER procedure are in the results section. CBC W/PLT COUNT & AUTO Routine 06/27/2018 5:56 Results for this DIFFERENTIAL AM INSURANCE PRODUCER procedure are in the results section. BASIC METABOLIC PANEL Routine 06/27/2018 5:56 Results for this (7) AM INSURANCE PRODUCER procedure are in the results section. CBC W/PLT COUNT & AUTO Routine 06/27/2018 5:56 Results for this DIFFERENTIAL AM INSURANCE PRODUCER procedure are in the results section. CBC W/PLT COUNT & AUTO STAT 06/26/2018 11:18 Results for this DIFFERENTIAL PM INSURANCE PRODUCER procedure are in the results section. CBC W/PLT COUNT & AUTO STAT 06/26/2018 11:18 Results for this DIFFERENTIAL PM INSURANCE PRODUCER procedure are in the results section. BASIC METABOLIC PANEL STAT 06/26/2018 11:18 Results for this (7) PM INSURANCE PRODUCER procedure are in the results section. SODIUM, RANDOM URINE STAT 06/26/2018 11:11 Results for this PM INSURANCE PRODUCER procedure are in the results section. CT BRAIN WITHOUT IV STAT 06/26/2018 10:25 Results for this CONTRAST PM INSURANCE PRODUCER procedure are in the results section. POCT-GLUCOSE METER Routine 06/26/2018 9:01 Results for this PM INSURANCE PRODUCER procedure are in the results section. CBC W/PLT COUNT & AUTO Routine 06/26/2018 1:55 Results for this DIFFERENTIAL PM INSURANCE PRODUCER procedure are in the results section. BASIC METABOLIC PANEL Routine 06/26/2018 1:55 Results for this (7) PM INSURANCE PRODUCER procedure are in the results section. CBC W/PLT COUNT & AUTO Routine 06/26/2018 1:55 Results for this DIFFERENTIAL PM INSURANCE PRODUCER procedure are in the results section. POCT-GLUCOSE METER Routine 06/26/2018 1:33 Results for this PM INSURANCE PRODUCER procedure are in the results section. POCT-GLUCOSE METER Routine 06/26/2018 12:06 Results for this PM INSURANCE PRODUCER procedure are in the results section. POCT-GLUCOSE METER Routine 06/25/2018 4:10 Results for this PM INSURANCE PRODUCER procedure are in the results section. POCT-GLUCOSE METER Routine 06/25/2018 12:02 Results for this PM INSURANCE PRODUCER procedure are in the results section. POCT-GLUCOSE METER Routine 06/25/2018 8:02 Results for this AM INSURANCE PRODUCER procedure are in the results section. OSMOLALITY, URINE STAT 06/25/2018 4:23 Results for this AM INSURANCE PRODUCER procedure are in the results section. SPECIFIC GRAVITY, STAT 06/25/2018 4:23 Results for this URINE AM INSURANCE PRODUCER procedure are in the results section. POCT-GLUCOSE METER Routine 06/24/2018 9:56 Results for this PM INSURANCE PRODUCER procedure are in the results section. POCT-GLUCOSE METER Routine 06/24/2018 4:57 Results for this PM INSURANCE PRODUCER procedure are in the results section. BASIC METABOLIC PANEL STAT 06/24/2018 4:50 Results for this (7) PM INSURANCE PRODUCER procedure are in the results section. POCT-GLUCOSE METER Routine 06/24/2018 11:09 Results for this AM INSURANCE PRODUCER procedure are in the results section. POCT-GLUCOSE METER Routine 06/24/2018 9:38 Results for this AM INSURANCE PRODUCER procedure are in the results section. TISSUE EXAM AP Routine 06/24/2018 8:02 Results for this AM INSURANCE PRODUCER procedure are in the results section. ENDOSCOPIC SINUS 06/24/2018 7:00 Pituitary adenoma SURGERY,REPAIR CSF AM INSURANCE PRODUCER (HCC) [place] Special Needs (STEALTH NAVIGATION, LUMBAR DRAIN SET, LANDMARK CT SCAN ON ) TURBINECTOMY,NASAL 06/24/2018 7:00 AM INSURANCE PRODUCER Pituitary adenoma (HCC) Special Needs (STEALTH NAVIGATION, LUMBAR DRAIN SET, LANDMARK CT SCAN ON ) ENDOSCOPIC SINUS 06/24/2018 7:00 AM INSURANCE PRODUCER Pituitary adenoma SURGERY,ETHMOIDECTOMY W/ (HCC) SPHENOIDOTOMY Special Needs (STEALTH NAVIGATION, LUMBAR DRAIN SET, LANDMARK CT SCAN ON ) PROCEDURE W/ STEALTH 06/24/2018 7:00 AM INSURANCE PRODUCER Pituitary adenoma (HCC) Special Needs (STEALTH NAVIGATION, LUMBAR DRAIN SET, LANDMARK CT SCAN ON ) ENDOSCOPIC CRANIOTOMY,REMOVAL 06/24/2018 7:00 AM INSURANCE PRODUCER Pituitary adenoma ( HCC) TRANSSPHENOIDAL PITUITARY TUMOR Special Needs (STEALTH NAVIGATION, LUMBAR DRAIN SET, LANDMARK CT SCAN ON ) POCT-GLUCOSE METER Routine 06/24/2018 5:42 AM INSURANCE PRODUCER SCREEN, URINE STAT 06/24/2018 5:16 AM INSURANCE PRODUCER BASIC METABOLIC PANEL (7) Routine 06/24/2018 5:16 AM INSURANCE PRODUCER CBC W/PLT COUNT & AUTO Routine 06/24/2018 5:07 AM INSURANCE PRODUCER Results for this DIFFERENTIAL procedure are in the results section. PT/APTT Routine 06/24/2018 5:07 AM INSURANCE PRODUCER CBC W/PLT COUNT & AUTO Routine 06/24/2018 5:07 AM INSURANCE PRODUCER Results for this DIFFERENTIAL procedure are in the results section. POCT-GLUCOSE METER Routine 06/23/2018 9:21 PM INSURANCE PRODUCER POCT-GLUCOSE METER Routine 06/23/2018 4:31 PM INSURANCE PRODUCER BASIC METABOLIC PANEL (7) Routine 06/23/2018 4:13 PM INSURANCE PRODUCER POCT-GLUCOSE METER Routine 06/23/2018 8:30 AM INSURANCE PRODUCER POCT-GLUCOSE METER Routine 06/22/2018 11:34 PM INSURANCE PRODUCER POCT-GLUCOSE METER Routine 06/22/2018 8:21 PM INSURANCE PRODUCER POCT-GLUCOSE METER Routine 06/22/2018 5:07 PM INSURANCE PRODUCER POCT-GLUCOSE METER Routine 06/22/2018 11:49 AM INSURANCE PRODUCER POCT-GLUCOSE METER Routine 06/22/2018 8:30 AM INSURANCE PRODUCER POCT-GLUCOSE METER Routine 06/21/2018 9:09 PM INSURANCE PRODUCER POCT-GLUCOSE METER Routine 06/21/2018 5:20 PM INSURANCE PRODUCER POCT-GLUCOSE METER Routine 06/21/2018 11:06 AM INSURANCE PRODUCER ECHOCARDIOGRAM REPORT - SCAN 06/21/2018 9:21 AM INSURANCE PRODUCER FOLLICLE STIMULATING HORMONE Routine 06/21/2018 9:11 AM INSURANCE PRODUCER Results for this (FSH) procedure are in the results section. INSULIN-LIKE GROWTH FACTOR Routine 06/21/2018 9:11 AM INSURANCE PRODUCER ACTH Routine 06/21/2018 9:11 AM INSURANCE PRODUCER CORTISOL Routine 06/21/2018 9:11 AM INSURANCE PRODUCER POCT-GLUCOSE METER Routine 06/21/2018 7:[address] BRAIN WITHOUT IV CONTRAST TERI 06/20/2018 9:48 PM INSURANCE PRODUCER POCT-GLUCOSE METER Routine 06/20/2018 8:48 PM INSURANCE PRODUCER 2D ECHO W/ DOPPLER Routine 06/20/2018 6:40 PM INSURANCE PRODUCER Results for this (CW/PW/COLOR) procedure are in the results section. POCT-GLUCOSE METER Routine 06/20/2018 4:48 PM INSURANCE PRODUCER POCT-GLUCOSE METER Routine 06/20/2018 1:06 PM INSURANCE PRODUCER POCT-GLUCOSE METER Routine 06/20/2018 7:21 AM INSURANCE PRODUCER POCT-GLUCOSE METER Routine 06/20/2018 5:22 AM INSURANCE PRODUCER BASIC METABOLIC PANEL (7) STAT 06/20/2018 5:08 AM INSURANCE PRODUCER POCT-GLUCOSE METER Routine 06/20/2018 12:[address]/CTA CAROTID TERI 06/19/2018 10:[address]/CTA BRAIN TERI 06/19/2018 10:46 PM INSURANCE PRODUCER POCT-GLUCOSE METER Routine 06/19/2018 9:19 PM INSURANCE PRODUCER POCT-GLUCOSE METER Routine 06/19/2018 5:06 PM INSURANCE PRODUCER POCT-GLUCOSE METER Routine 06/19/2018 3:03 PM INSURANCE PRODUCER POCT-GLUCOSE METER Routine 06/19/2018 12:27 PM INSURANCE PRODUCER SCREEN, URINE Routine 06/19/2018 11:54 AM INSURANCE PRODUCER OSMOLALITY, URINE Routine 06/19/2018 11:54 AM INSURANCE PRODUCER RAPID DRUG SCREEN, URINE Routine 06/19/2018 11:54 AM INSURANCE PRODUCER CBC W/PLT COUNT & AUTO Routine 06/19/2018 11:49 AM INSURANCE PRODUCER Results for this DIFFERENTIAL procedure are in the results section. INSULIN-LIKE GROWTH FACTOR Routine 06/19/2018 11:49 AM INSURANCE PRODUCER OSMOLALITY, SERUM Routine 06/19/2018 11:49 AM INSURANCE PRODUCER T4, FREE Routine 06/19/2018 11:49 AM INSURANCE PRODUCER C-REACTIVE PROTEIN Routine 06/19/2018 11:49 AM INSURANCE PRODUCER HIV-1 ANTIGEN WITH HIV-1/2 Routine 06/19/2018 11:49 AM INSURANCE PRODUCER Results for this ANTIBODY procedure are in the results section. RPR Routine 06/19/2018 11:49 AM INSURANCE PRODUCER CBC W/PLT COUNT & AUTO Routine 06/19/2018 11:49 AM INSURANCE PRODUCER Results for this DIFFERENTIAL procedure are in the results section. POCT-GLUCOSE METER Routine 06/19/2018 9:25 AM INSURANCE PRODUCER POCT-GLUCOSE METER Routine 06/19/2018 5:51 AM INSURANCE PRODUCER GROWTH HORMONE Routine 06/19/2018 3:49 AM INSURANCE PRODUCER LUTEINIZING HORMONE (LH) Routine 06/19/2018 3:49 AM INSURANCE PRODUCER ACTH Routine 06/19/2018 3:49 AM INSURANCE PRODUCER PROLACTIN Routine 06/19/2018 3:49 AM INSURANCE PRODUCER MR BRAIN WITHOUT & WITH IV STAT 06/19/2018 2:25 AM INSURANCE PRODUCER Results for this CONTRAST procedure are in the results section. HEMOGLOBIN A1C Routine 06/19/2018 12:39 AM INSURANCE PRODUCER TSH/FREE T4 IF INDICATED Routine 06/18/2018 11:32 PM INSURANCE PRODUCER BASIC METABOLIC PANEL (7) STAT 06/18/2018 11:32 PM INSURANCE PRODUCER URINALYSIS W/ REFLEX URINE Routine 06/18/2018 10:27 PM INSURANCE PRODUCER Results for this CULTURE procedure are in the results section. after 11/01/2017 Results INTRAOPERATIVE PATH REPORT - SCAN (06/29/2018 1:00 PM INSURANCE PRODUCER) Narrative Performed At RHYTHM STRIP - SCAN (06/29/2018 1:00 PM INSURANCE PRODUCER) Narrative Performed At POC-Glucose meter (06/27/2018 12:07 PM INSURANCE PRODUCER)Only the most recent of37 resultswithin the time period is included. POC-Glucose Meter 141 (H)Comment: TESTED AT 70 - 110 mg/dL [address] [address] Specimen Blood Performing Organization Address City/State/Zipcode Phone Number [address] [address] [phone] CENTER CBC with platelet count + automated diff (06/27/2018 5:56 AM INSURANCE PRODUCER)Only the most recent of5 resultswithin the time period is included. WBC 8.7 3.5 - 10.5 K/L [facility] RBC 4.82 3.93 - 5.22 M/L [facility] Hemoglobin 13.2 11.2 - 15.7 GM/DL [facility] Hematocrit 40.8 34.1 - 44.9 % [facility] MCV 84.6 79.4 - 94.8 fL [facility] MCH 27.4 25.6 - 32.2 pg [facility] MCHC 32.4 32.2 - 35.5 GM/DL [facility] RDW 13.2 11.7 - 14.4 % [facility] Platelets 233 150 - 450 K/CU MM [facility] MPV 11.5 9.4 - 12.3 fL [facility] nRBC 0 0 - 0 /100 WBC [facility] % Neutros 65 % [facility] % Lymphs 24 % [facility] % Monos 8 % [facility] % Eos 2 % [facility] % Baso 0 % [facility] # Neutros 5.65 1.56 - 6.13 K/L [facility] # Lymphs 2.07 1.18 - 3.74 K/L [facility] # Monos 0.70 (H) 0.24 - 0.36 K/L [facility] # Eos 0.16 0.04 - 0.36 K/L [facility] # Baso 0.02 0.01 - 0.08 K/L [facility] Immature Granulocytes-Relative 1 0 - 1 % [facility] Specimen Blood Performing Organization Address City/State/Zipcode Phone Number [facility] [address] [place] [address] CENTER Basic Metabolic Panel (06/27/2018 5:56 AM INSURANCE PRODUCER)Only the most recent of8 resultswithin the time period is included. Sodium 139 136 - 145 meq/L [facility] Potassium 4.1 3.5 - 5.1 meq/L [facility] Chloride 105 98 - 107 meq/L [facility] CO2 28 22 - 29 meq/L [facility] BUN 11 7 - 21 mg/dL [facility] Creatinine 0.69 0.57 - 1.25 mg/dL [facility] Glucose 163 (H) 70 - 105 mg/dL [facility] Calcium 8.6 8.4 - 10.2 mg/dL [facility] EGFR 91Comment: ESTIMATED GFR IS mL/min/1.73 sq m [facility] NOT ACCURATE CREATININE [facility] CLEARANCE IN PREDICTING GLOMERULAR FILTRATION RATE. ESTIMATED GFR IS NOT APPLICABLE FOR DIALYSIS PATIENTS. Specimen Blood Performing Organization Address City/[facility]/Zipcode Phone Number [address] [address] TRADE Sodium, random urine (06/26/2018 11:11 PM INSURANCE PRODUCER) Sodium Urine <20 meq/L [facility] Specimen Urine - Urine, Voided Narrative Performed At Reference Range: No Normals [facility] Performing Organization Address City/State/Zipcode Phone Number [address] [address] [phone] brain without IV contrast (06/26/2018 10:25 PM INSURANCE PRODUCER)Only the most recent of2 resultswithin the time period is included. Narrative Performed At FINAL REPORT [facility] CT Head without contrast CLINICAL [...] MD Report Verified Date/Time:06/26/2018 22:57:28 Reading Location: [facility] C[facility] Transitional Reading Room Procedure Note Interface, External Ris In - 06/26/2018 10:59 PM INSURANCE PRODUCER FINAL REPORT CT Head without contrast CLINICAL [...] Report Verified Date/Time: 06/26/2018 22:57:28 Reading Location: [facility] Transitional Reading Room Performing Organization Address City/State/Zipcode Phone Number GE RIS Specific gravity, urine (06/25/2018 4:23 AM INSURANCE PRODUCER) Specific [place], UA 1.010 1.001 - 1.035 [facility] Specimen Urine - Urine, Fonseca Performing Organization Address [facility] Phone Number [address] [address] TRADE Osmolality, urine (06/25/2018 4:23 AM INSURANCE PRODUCER)Only the most recent of2 resultswithin the time period is included. Osmolality, Ur 340 40-1,400 mOsm/kg [facility] Specimen Urine - Urine, Fonseca Performing Organization Address [facility] Phone Number [address] [address] [phone] TRADE Tissue Exam (06/24/2018 8:02 AM INSURANCE PRODUCER) Case Report Surgical Pathology Report Case: [id number] [facility] Authorizing Provider:Alex Ruano MD Collected: 06/24/[address] [place] [address] MEDICAL Ordering Location: [address] Received: 06/24/2018 0809 CENTER Service Pathologist: Chon Caraballo MD Specimens: A) - Tumor, pituitary tumor B) - Tumor, pituitary tumor DIAGNOSIS A.PITUITARY GLAND, TRANSSPHENOIDAL HYPOPHYSECTOMY: LIM[facility] 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 PITUITARY GLAND, TRANSSPHENOIDAL HYPOPHYSECTOMY: NULL CELL ADENOMA ENTRAPPED ADENOHYPOPHYSIS Signing Pathologist Direct Phone Line: [phone] COMMENT Immunoperoxidase stains LIMA FERRERS performed on the second [facility] specimen show that the tumor CENTER has no staining for growth hormone, LH, FSH, TSH, prolactin, or ACTH. 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 The MIB-1 proliferation index is less than 1%. CPT Code(s) 97159 x 2; 10267; 22884; 34223 [facility] x 6; 10698 [facility] CLINICAL HISTORY Pituitary adenoma [facility] SPECIMEN SOURCE A. Pituitary tumor; B. [facility] Pituitary tumor [facility] GROSS DESCRIPTION A. The specimen is received fresh for frozen section diagnosis and labeled "pituitary tumor" and consists of a single fragment of tariq -red soft tissue measuring 0.5 cm in greatest dimension submitted ent [facility] for frozen section diagnosis, and touch preps are performed. CG/ew [facility] B. Received fresh labeled "tumor", description "pituitary tumor" is a 2.0 x 1.0 x 0.3 cm aggregate of pink-tariq to hannah-white rubbery friable soft tissue. The specimen is entirely submitted in cassette B1. DB/pl INTRAOPERATIVE FROZEN SECTION DIAGNOSIS, PITUITARY TUMOR: [facility] CONSULTATION ADENOMA EXTENDING INTO RESPIRATORY MUCOSA PER DR. CARABALLO [facility] MICROSCOPIC DESCRIPTION Performed on A and B [facility] SPECIAL STUDIES The interpretation of this case included the use of immunohistochemistry or special stains. [facility] Immunohistochemistry technical testing was performed at [facility], Pathology Laboratory where it was [...] Performing Organization Address City/State/Zipcode Phone Number [facility] [address] [place] [address] CENTER Screen, urine (06/24/2018 5:16 AM INSURANCE PRODUCER)Only the most recent of2 resultswithin the time period is included. Preg Test, Ur Negative [facility] Specimen Urine Performing Organization Address [facility] Phone Number [address] [address] [phone] CENTER PT/aPTT (06/24/2018 5:07 AM INSURANCE PRODUCER) Protime 13.8 11.7 - 14.7 seconds [facility] INR 1.1 <=5.9 [facility] PTT 32.0 22.5 - 36.0 seconds [facility] Specimen Blood Narrative Performed At RECOMMENDED COUMADIN/WARFARIN INR THERAPY [facility] RANGES STANDARD DOSE: 2.0 - 3.0 Includes: PROPHYLAXIS for venous thrombosis, systemic embolization; TREATMENT for venous thrombosis and/or pulmonary embolus. HIGH RISK: Target INR is 2.5-3.5 for patients with mechanical heart valves. Performing Organization Address [facility] Phone Number [address] [address] [phone] TRADE ECHOCARDIOGRAM REPORT - SCAN (06/21/2018 9:21 AM INSURANCE PRODUCER) Narrative Performed At Cortisol (06/21/2018 9:11 AM INSURANCE PRODUCER) Cortisol, Total 4.7 3.7 - 19.4 ug/dL [facility] Specimen Blood - Arm, Right Performing Organization Address [facility] Phone Number [address] [address] CENTER Insulin-like growth factor (06/21/2018 9:11 AM INSURANCE PRODUCER)Only the most recent of2 resultswithin the time period is included. Igf-1(Somatomedin-C) 36 (L) 52 - 328 ng/mL [facility] Z-Score Male: DNR [facility] Z-Score Female: -2.6 (L) -2.0 - 2.0 SD [facility] Comment: [facility] This test was developed and its analytical performance characteristics have been determined [facility]. It has not been cleared or approved by FDA. This assay has been validated pursuant to the CLIA regulations and is used for clinical purposes. Specimen Blood - Arm, Right Narrative Performed At Performing Lab [facility] [employer] [address] [address] Sixto Rodrigez MD, PhD, ANABELL Performing Organization Address [facility] [place] [address] [place] [address] ACTH (06/21/2018 9:11 AM INSURANCE PRODUCER)Only the most recent of2 resultswithin the time period is included. ACTH 17 6 - 50 pg/mL [facility] Comment: Reference range applies only to the specimens collected between 7am-10am. Specimen Blood - Arm, Right Narrative Performed At Performing Lab [facility] [employer] [address] [address] Sixto Rodrigez MD, PhD, ANABELL Performing Organization Address [facility] [place] [address] [place] [address] Follicle stimulating hormone (FSH) (06/21/2018 9:11 AM INSURANCE PRODUCER) Fsh 2.3 mIU/mL [facility] Comment: Adult female reference ranges for FSH: Follicular Phase: 2.5- 10.2 mIU/mL Mid-Cycle:3.1- 17.7 mIU/mL Luteal Phase: 1.5-9.1 mIU/mL Postmenopausal:23.0-116.3 mIU/mL Children (<18 Years Old): FSH reference ranges established on post-pubertal patient population. Reference range not established for pre-pubertal patients using this assay. For pre-pubertal patients, the [facility] FSH, Pediatrics assay is recommended (test code 52313). Specimen Blood - Arm, Right Narrative Performed At Performing Lab [facility] [address] Sixto Rodrigez MD, PhD, ANABELL Performing Organization Address [facility]/Zipcode Phone Number [facility] [address], [place] [address] INCORPORATED [address] [facility] 2D Echo W/Doppler(CW/PW/Color) (06/20/2018 6:40 PM INSURANCE PRODUCER) Ejection Fraction [facility] ECHO [facility] Narrative Performed At Transthoracic Echocardiography Report (TTE) [facility] ECHO [facility]ART[facility] Demographics Patient NameVY STOUT Date of Study06/20/2018 Female Visit [id number] Unknown Room [id number] Number Date of 1970Referring Abrahan Mireles MD 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 Tony Fernandez Interpreting Tarik Domínguez MD Procedure [...] External Ris In - 06/21/2018 8:37 AM INSURANCE PRODUCER Transthoracic Echocardiography Report (TTE) Demographics Patient Name VY STOUT Date of Study 06/20/2018 Gender Female Visit Number [id number] Race Unknown Room Number 2251 Number Date of 1970 Referring Physician Althea Mireles MD 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 48 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 Tony Fernandez Interpreting Ethan Domínguez Physician Procedure [...] TR Gradient: 18.02 mmHg Performing Organization Address City/State/[facility] Phone Number [facility] CTA carotid (06/19/2018 10:46 PM INSURANCE PRODUCER) Narrative Performed At FINAL REPORT [facility] CLINICAL HISTORY: Stroke TECHNIQUE: Initially, noncontrast [...] MD Report Verified Date/Time:06/20/2018 01:03:44 Reading Location: [address] Transitional Reading Room Procedure Note Interface, External Ris In - 06/20/2018 1:05 AM INSURANCE PRODUCER FINAL REPORT CLINICAL HISTORY: Stroke TECHNIQUE: Initially, [...] Report Verified Date/Time: 06/20/2018 01:03:44 Reading Location: [address] Transitional Reading Room Performing Organization Address City/State/Zipcode Phone Number GE RIS CTA brain (06/19/2018 10:46 PM INSURANCE PRODUCER) Narrative Performed At FINAL REPORT GE RIS [...] MD Report Verified Date/Time:06/20/2018 01:03:44 Reading Location: [address] Transitional Reading Room Procedure Note Interface, External Ris In - 06/20/2018 1:05 AM INSURANCE PRODUCER FINAL REPORT CLINICAL HISTORY: Stroke TECHNIQUE: Initially, [...] Report Verified Date/Time: 06/20/2018 01:03:44 Reading Location: [facility] B1 C013T Transitional Reading Room Performing Organization Address City/State/Zipcode Phone Number RIS Rapid drug screen, urine (06/19/2018 11:54 AM INSURANCE PRODUCER) Barbiturate Screen Negative Negative [facility] Benzodiazepine Screen Negative Negative [facility] Cocaine (Metab.) Screen Negative Negative [facility] Methadone Screen Negative Negative [facility] Opiate Screen Negative Negative [facility] Cannabinoid Screen Negative Negative [facility] Amph/Methamph Screen Negative Negative [facility] Phencyclidine Screen Negative Negative [facility] Oxycodone Screen Negative Negative [facility] Specimen Urine - Urine, Voided Narrative Performed At [facility] CONC. Cocaine 300 ng/mL Ounkguhhalj51 ng/mL Bvqawakxqgdcit887 ng/mL Barbiturate 200 ng/mL Ehecolyxdgtef51 ng/mL Eayzln670 ng/mL Methadone 300 ng/mL Amphetamine/ 1000 ng/mL Methamphetamine Oxycodone 300 ng/mL This assay provides an unconfirmed qualitative test result for the clinical management of patients in emergency situations. Chain of custody not maintained. Some vhnu-efz-xmqttyy medications, as well as adulterants, may cause inaccurate results. Clinical correlation should be applied. A more comprehensive drug screen or confirmation of a detected drug may be performed upon request. Performing Organization Address City/[facility] Phone Number [address] [address] CENTER HIV-1 Antigen with HIV-1/2 Antibody (06/19/2018 11:49 AM INSURANCE PRODUCER) HIV-1 Antigen with HIV 1&2 NON-REACTIVE Nonreactive [facility] Specimen Blood - Arm, Left Performing Organization Address City/[facility] Phone Number [address] [address] [phone] CENTER C-Reactive Protein (06/19/2018 11:49 AM INSURANCE PRODUCER) CRP 0.81 (H) 0.00 - 0.50 mg/dL [facility] Specimen Blood - Arm, Left Performing Organization Address [facility] Phone Number [address] [address] [phone] CENTER RPR (06/19/2018 11:49 AM INSURANCE PRODUCER) RPR Nonreactive Nonreactive [facility] Specimen Blood - Arm, Left Performing Organization Address [facility] Phone Number [address] [phone] CENTER T4, free (06/19/2018 11:49 AM INSURANCE PRODUCER) Free T4 0.89 0.70 - 1.48 ng/dL [facility] Specimen Blood - Arm, Left Performing Organization Address [facility] Phone Number [address] [address] [phone] CENTER Osmolality, serum (06/19/2018 11:49 AM INSURANCE PRODUCER) Osmolality Serum 310 (H) 275 - 295 mOsm/kg [facility] Specimen Blood - Arm, Left Performing Organization Address [facility] Phone Number [address] [address] CENTER Prolactin (06/19/2018 3:49 AM INSURANCE PRODUCER) Prolactin 23.34 5.18 - 26.53 ng/mL [facility] Specimen Blood Performing Organization Address [facility] Phone Number [address] [phone] CENTER Growth hormone (06/19/2018 3:49 AM INSURANCE PRODUCER) Growth Hormone <0.1 < OR=7.1 ng/mL [facility] [...] Guideline. J Clin Endocrinol Metab 2014; 99: 1906-7465]. Using GH stimulation testing, the following result at any point in the timed sequence makes GH deficiency unlikely: Adults (> or=20 years): Insulin Hypoglycemia > or=5.1 ng/mL Arginine/GHRH> or=4.1 ng/mL Glucagon > or=3.0 ng/mL Children (<20 years): All Stimulation Tests> or=10.0 ng/mL Specimen Blood Narrative Performed At Performing Lab [email or web address] [facility] [place] [address] Sixto Rodrigez MD, PhD, ANABELL Performing Organization Address [facility] Phone Number [place] [address] [facility] [employer] Luteinizing hormone (LH) (06/19/2018 3:49 AM INSURANCE PRODUCER) LH, Serum 0.2 mIU/mL [employer] Comment: Adult Female Reference Ranges for LH: Follicular Phase:1.9-12.5 mIU/mL Mid-Cycle Peak:8.7-76.3 mIU/mL Luteal Phase:0.5-16.9 mIU/mL Postmenopausal: 10.0-54.7 mIU/mL Children (<18 Years Old): LH reference ranges established on post-pubertal patient population. Reference range not established for pre-pubertal patients using this assay. For pre-pubertal patients, the [employer] LH, Pediatric assay is recommended (order code [id number]). Specimen Blood Narrative Performed At Performing Lab [email or web address] [address] [place] [address] Sixto Rodrigez MD, PhD, ANABELL Performing Organization Address [facility] Phone Number [place] [address] [facility] [employer] MR brain without & with IV contrast (06/19/2018 2:25 AM INSURANCE PRODUCER) Narrative Performed At FINAL REPORT [employer] MRI brain with and without contrast Comparison:None. 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 Discussion: Multiplanar MR imaging of the brain and sella was provided fno-vig-etqp IV gadolinium administration using T1, T2, FLAIR, [...] Report Verified Date/Time: 06/19/2018 02:25:15 Reading Location: [facility] C013Y CT Body Reading Room Performing Organization Address City/State/[facility] Phone Number [facility] Hemoglobin A1c (06/19/2018 12:39 AM INSURANCE PRODUCER) Hemoglobin A1C 7.9 (H) 4.3 - 6.1 % [facility] Specimen Blood Performing Organization Address City/[facility] Phone Number [address] [address] CENTER TSH/Free T4 If Indicated (06/18/2018 11:32 PM INSURANCE PRODUCER) TSH 0.41 0.35 - 4.94 uIU/mL [facility] Specimen Blood Performing Organization Address [facility] Phone Number [address] [address] [phone] CENTER Urinalysis w/Microscopic + Reflex to Culture (06/18/2018 10:27 PM INSURANCE PRODUCER) Color, UA Yellow [facility] Clarity, UA Clear [facility] Specific [place], UA 1.011 1.001 - 1.035 [facility] pH, UA 5.0 5.0 - 8.0 [facility] Protein, UA Negative Negative [facility] Glucose, UA >1000 mg/dL (A) Negative [facility] Ketones, UA 20 mg/dL (A) Negative [facility] Bilirubin, UA Negative Negative [facility] Blood, UA Negative Negative [facility] Nitrite, UA Negative Negative [facility] Leukocytes, UA Negative Negative [facility] Urobilinogen, UA 0.2 0.2 - 1.0 mg/dL [facility] RBC, UA <1 /HPF [facility] WBC, UA <1 /HPF [facility] Squam Epithel, UA <1 /HPF [facility] Specimen Source [facility] Specimen Urine - Urine, Clean Catch Performing Organization Address City/State/Zipcode Phone Number [facility] [address] [place] [phone] CENTER after 11/01/2017 Insurance Payer Benefit Plan / Subscriber ID Type Phone Address Group [employer]UE [employer]OSS/[employer]UE [employer] xxxxxxxxxxxx PPO [phone] [address] [employer] [place] [address] (Home) [address] [place] [id number] Advance Directives Patient has advance care planning documents, and code status on file. For more information, please contact:[address] [phone] Code Status Date Activated Date Inactivated Comments Full Code 06/26/2018 1:38 PM This code status was determined by: Patient Full Code 06/18/2018 8:39 PM 06/26/2018 11:54 AM This code status was determined by: Patient
--- OUTSIDE RECORDS SUMMARY | 2018-11-02 07:37 | XMS REPORT ---
:[address] [facility] Address [address] [place] [address] Dr. Holbrook [address] [place] [id number] Care Team Providers Name Role Phone DAJUAN GEORGE Unavailable Unavailable MITCHELL DOBSON Unavailable Unavailable Problems This patient has no known problems. Allergies, Adverse Reactions, Alerts This patient has no known allergies or adverse reactions. Medications This patient has no known medications. Results Test Description Test Time Test Comments Text Results Atomic Results Result Comments TISSUE EXAM 2018-06-28 08:38:00 Surgical Pathology Report Case: [id number] Authorizing Provider: Alex Ruano MD Collected: 06/24/2018801 Ordering Location: [address] Received: 06/24/2018 0809 Service Pathologist: Chon Andino MD Specimens: A) - Tumor, pituitary tumor B) - Tumor, pituitary tumor A.PITUITARY GLAND, TRANSSPHENOIDAL 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 PITUITARY GLAND, TRANSSPHENOIDAL HYPOPHYSECTOMY:NULL CELL ADENOMAENTRAPPED ADENOHYPOPHYSIS Signing Pathologist Direct Phone Line: [phone] signed by Chon Andino MD on 06/28/2018 at 8:38 AMImmunoperoxidase stains performed on the second specimen show that the tumor has no staining for growth hormone, LH, FSH, TSH, prolactin, or ACTH. 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 The MIB-1 proliferation index is less than 1%. 42135 x 2; 14715; 05121; 39658 x 6; 43865Nreubtchp adenoma A. Pituitary tumor; B. Pituitary tumorA. [...] stains. Immunohistochemistry technical testing was performed at [facility], Pathology Laboratory where it was developed [...] (BEAKER) (test 141 mg/dL 70-110 TESTED AT [facility] [address] [place] [address] cnoz=6692) [facility] [address] POCT-GLUCOSE [id number] 12:06:00 Test Item Value Reference Range Comments POC-GLUCOSE METER (BEAKER) 217 mg/dL 70-110 TESTED AT [address] (test xeol=6634) [facility] [address] BASIC METABOLIC [id number] 07:18:00 Test Item Value Reference Range Comments SODIUM (BEAKER) (test 139 meq/L 136-145 gchz=973) POTASSIUM (BEAKER) (test 4.1 meq/L 3.5-5.1 emab=573) CHLORIDE (BEAKER) (test 105 meq/L 98-107 scmo=055) CO2 (BEAKER) (test 28 meq/L 22-29 rdgo=748) BLOOD UREA NITROGEN 11 mg/dL 7-21 (BEAKER) (test wkyu=966) CREATININE (BEAKER) (test 0.69 mg/dL 0.57-1.25 lxhd=334) GLUCOSE RANDOM (BEAKER) 163 mg/dL 70-105 (test kqha=769) CALCIUM (BEAKER) (test 8.6 mg/dL 8.4-10.2 jdpi=461) EGFR (BEAKER) (test 91 mL/min/1.73 sq m ESTIMATED GFR IS NOT bpfr=4266) ACCURATE CREATININE CLEARANCE IN PREDICTING GLOMERULAR FILTRATION RATE. ESTIMATED GFR IS NOT APPLICABLE FOR DIALYSIS PATIENTS. CBC W/PLT COUNT & AUTO [id number] 06:49:00 Test Item Value Reference Range Comments WHITE BLOOD CELL COUNT (BEAKER) (test utag=533) 8.7 K/ L 3.5-10.5 RED BLOOD CELL COUNT (BEAKER) (test kiiv=325) 4.82 M/ L 3.93-5.22 HEMOGLOBIN (BEAKER) (test gtld=055) 13.2 GM/DL 11.2-15.7 HEMATOCRIT (BEAKER) (test tvlv=707) 40.8 % 34.1-44.9 MEAN CORPUSCULAR VOLUME (BEAKER) (test psok=801) 84.6 fL 79.4-94.8 MEAN CORPUSCULAR HEMOGLOBIN (BEAKER) (test 27.4 pg 25.6-32.2 wxal=644) MEAN CORPUSCULAR HEMOGLOBIN CONC (BEAKER) (test 32.4 GM/DL 32.2-35.5 ooyi=944) RED CELL DISTRIBUTION WIDTH (BEAKER) (test 13.2 % 11.7-14.4 xunz=179) PLATELET COUNT (BEAKER) (test txqg=641) 233 K/CU MM 150-450 MEAN PLATELET VOLUME (BEAKER) (test kjvg=065) 11.5 fL 9.4-12.3 NUCLEATED RED BLOOD CELLS (BEAKER) (test 0 /100 WBC 0-0 gvsn=197) NEUTROPHILS RELATIVE PERCENT (BEAKER) (test 65 % bkkd=292) LYMPHOCYTES RELATIVE PERCENT (BEAKER) (test 24 % zvlz=269) MONOCYTES RELATIVE PERCENT (BEAKER) (test 8 % piay=184) EOSINOPHILS RELATIVE PERCENT (BEAKER) (test 2 % iafq=989) BASOPHILS RELATIVE PERCENT (BEAKER) (test 0 % lloh=557) NEUTROPHILS ABSOLUTE COUNT (BEAKER) (test 5.65 K/ L 1.56-6.13 snpj=779) LYMPHOCYTES ABSOLUTE COUNT (BEAKER) (test 2.07 K/ L 1.18-3.74 euno=905) MONOCYTES ABSOLUTE COUNT (BEAKER) (test 0.70 K/ L 0.24-0.36 nntk=265) EOSINOPHILS ABSOLUTE COUNT (BEAKER) (test 0.16 K/ L 0.04-0.36 qtfs=449) BASOPHILS ABSOLUTE COUNT (BEAKER) (test 0.02 K/ L 0.01-0.08 ktng=130) IMMATURE GRANULOCYTES-RELATIVE PERCENT (BEAKER) 1 % 0-1 (test swtn=5472) BASIC METABOLIC [id number] 23:52:00 Test Item Value Reference Range Comments SODIUM (BEAKER) (test 139 meq/L 136-145 cmfp=716) POTASSIUM (BEAKER) (test 4.0 meq/L 3.5-5.1 Specimen slightly pris=944) hemolyzed CHLORIDE (BEAKER) (test 103 meq/L 98-107 paru=548) CO2 (BEAKER) (test 28 meq/L 22-29 xnxb=817) BLOOD UREA NITROGEN 12 mg/dL 7-21 (BEAKER) (test hhmh=356) CREATININE (BEAKER) (test 0.72 mg/dL 0.57-1.25 Specimen slightly tjru=715) hemolyzed GLUCOSE RANDOM (BEAKER) 193 mg/dL 70-105 (test ypzt=909) CALCIUM (BEAKER) (test 8.6 mg/dL 8.4-10.2 rnip=211) EGFR (BEAKER) (test 86 mL/min/1.73 sq m ESTIMATED GFR IS NOT yecp=1751) ACCURATE CREATININE CLEARANCE IN PREDICTING GLOMERULAR FILTRATION RATE. ESTIMATED GFR IS NOT APPLICABLE FOR DIALYSIS PATIENTS. SODIUM, RANDOM [id number] 23:49:00 Test Item Value Reference Range Comments SODIUM URINE (BEAKER) (test ypcl=216) < meq/L Reference Range: No NormalsCBC W/PLT COUNT & AUTO [id number] 23: 35:00 Test Item Value Reference Range Comments WHITE BLOOD CELL COUNT (BEAKER) (test tjwx=073) 9.7 K/ L 3.5-10.5 RED BLOOD CELL COUNT (BEAKER) (test mkim=163) 4.46 M/ L 3.93-5.22 HEMOGLOBIN (BEAKER) (test jvrg=445) 12.2 GM/DL 11.2-15.7 HEMATOCRIT (BEAKER) (test iewq=984) 37.8 % 34.1-44.9 MEAN CORPUSCULAR VOLUME (BEAKER) (test ipsg=178) 84.8 fL 79.4-94.8 MEAN CORPUSCULAR HEMOGLOBIN (BEAKER) (test 27.4 pg 25.6-32.2 shis=342) MEAN CORPUSCULAR HEMOGLOBIN CONC (BEAKER) (test 32.3 GM/DL 32.2-35.5 kfzp=853) RED CELL DISTRIBUTION WIDTH (BEAKER) (test 13.0 % 11.7-14.4 bzwe=660) PLATELET COUNT (BEAKER) (test fpdx=712) 210 K/CU MM 150-450 MEAN PLATELET VOLUME (BEAKER) (test ruan=393) 11.4 fL 9.4-12.3 NUCLEATED RED BLOOD CELLS (BEAKER) (test 0 /100 WBC 0-0 ikak=666) NEUTROPHILS RELATIVE PERCENT (BEAKER) (test 61 % fhgz=439) LYMPHOCYTES RELATIVE PERCENT (BEAKER) (test 28 % jfzn=731) MONOCYTES RELATIVE PERCENT (BEAKER) (test 8 % lnkk=351) EOSINOPHILS RELATIVE PERCENT (BEAKER) (test 2 % pzug=764) BASOPHILS RELATIVE PERCENT (BEAKER) (test 0 % fxwu=362) NEUTROPHILS ABSOLUTE COUNT (BEAKER) (test 5.87 K/ L 1.56-6.13 wufi=441) LYMPHOCYTES ABSOLUTE COUNT (BEAKER) (test 2.72 K/ L 1.18-3.74 fnlh=580) MONOCYTES ABSOLUTE COUNT (BEAKER) (test 0.80 K/ L 0.24-0.36 gmuu=113) EOSINOPHILS ABSOLUTE COUNT (BEAKER) (test 0.22 K/ L 0.04-0.36 rblk=646) BASOPHILS ABSOLUTE COUNT (BEAKER) (test 0.03 K/ L 0.01-0.08 ndpq=615) IMMATURE GRANULOCYTES-RELATIVE PERCENT (BEAKER) 1 % 0-1 (test grun=1770) CT, BRAIN, WITHOUT [id number] 22:57:00FINAL REPORT CT Head without contrast CLINICAL [...] Gamboa Verified Date/Time: 06/26/2018 22:57:28 [address] POCT-GLUCOSE [id number] 21:07:00 Test Item Value Reference Range Comments POC-GLUCOSE METER (BEAKER) 211 mg/dL 70-110 TESTED AT [address] (test ofmh=4583) [facility] [address] BASIC METABOLIC [id number] 14:29:00 Test Item Value Reference Range Comments SODIUM (BEAKER) (test 137 meq/L 136-145 nkio=023) POTASSIUM (BEAKER) (test 3.6 meq/L 3.5-5.1 wakt=949) CHLORIDE (BEAKER) (test 100 meq/L 98-107 jnet=499) CO2 (BEAKER) (test 32 meq/L 22-29 dwew=227) BLOOD UREA NITROGEN 12 mg/dL 7-21 (BEAKER) (test jiqj=306) CREATININE (BEAKER) (test 0.71 mg/dL 0.57-1.25 ehbt=266) GLUCOSE RANDOM (BEAKER) 182 mg/dL 70-105 (test juzi=530) CALCIUM (BEAKER) (test 8.7 mg/dL 8.4-10.2 efop=422) EGFR (BEAKER) (test 88 mL/min/1.73 sq m ESTIMATED GFR IS NOT cgxu=3276) ACCURATE CREATININE CLEARANCE IN PREDICTING GLOMERULAR FILTRATION RATE. ESTIMATED GFR IS NOT APPLICABLE FOR DIALYSIS PATIENTS. CBC W/PLT COUNT & AUTO [id number] 14:25:00 Test Item Value Reference Range Comments WHITE BLOOD CELL COUNT (BEAKER) (test ljhx=293) 12.3 K/ L 3.5-10.5 RED BLOOD CELL COUNT (BEAKER) (test fqol=530) 4.76 M/ L 3.93-5.22 HEMOGLOBIN (BEAKER) (test jfjm=217) 13.1 GM/DL 11.2-15.7 HEMATOCRIT (BEAKER) (test pvdv=923) 40.6 % 34.1-44.9 MEAN CORPUSCULAR VOLUME (BEAKER) (test nqrl=903) 85.3 fL 79.4-94.8 MEAN CORPUSCULAR HEMOGLOBIN (BEAKER) (test 27.5 pg 25.6-32.2 hode=572) MEAN CORPUSCULAR HEMOGLOBIN CONC (BEAKER) (test 32.3 GM/DL 32.2-35.5 pouy=012) RED CELL DISTRIBUTION WIDTH (BEAKER) (test 13.1 % 11.7-14.4 stmb=004) PLATELET COUNT (BEAKER) (test lnly=837) 254 K/CU MM 150-450 MEAN PLATELET VOLUME (BEAKER) (test hdha=719) 11.1 fL 9.4-12.3 NUCLEATED RED BLOOD CELLS (BEAKER) (test 0 /100 WBC 0-0 lypo=937) NEUTROPHILS RELATIVE PERCENT (BEAKER) (test 68 % fkgu=662) LYMPHOCYTES RELATIVE PERCENT (BEAKER) (test 24 % hdlj=963) MONOCYTES RELATIVE PERCENT (BEAKER) (test 6 % rnfh=021) EOSINOPHILS RELATIVE PERCENT (BEAKER) (test 1 % rrga=653) BASOPHILS RELATIVE PERCENT (BEAKER) (test 0 % hsmb=789) NEUTROPHILS ABSOLUTE COUNT (BEAKER) (test 8.42 K/ L 1.56-6.13 bipw=085) LYMPHOCYTES ABSOLUTE COUNT (BEAKER) (test 2.90 K/ L 1.18-3.74 gvui=788) MONOCYTES ABSOLUTE COUNT (BEAKER) (test 0.79 K/ L 0.24-0.36 qxyf=111) EOSINOPHILS ABSOLUTE COUNT (BEAKER) (test 0.07 K/ L 0.04-0.36 jlna=599) BASOPHILS ABSOLUTE COUNT (BEAKER) (test 0.05 K/ L 0.01-0.08 ydch=359) IMMATURE GRANULOCYTES-RELATIVE PERCENT (BEAKER) 1 % 0-1 (test nned=5098) POCT-GLUCOSE [id number] 13:38:00 Test Item Value Reference Range Comments POC-GLUCOSE METER (BEAKER) 219 mg/dL 70-110 TESTED AT [address] (test lcuu=0467) [place] [id number] POCT-GLUCOSE [id number] 12:34:00 Test Item Value Reference Range Comments POC-GLUCOSE METER (BEAKER) 193 mg/dL 70-110 TESTED AT [address] (test bjxd=2074) [place] [id number] POCT-GLUCOSE [id number] 16:17:00 Test Item Value Reference Range Comments POC-GLUCOSE METER (BEAKER) 244 mg/dL 70-110 TESTED AT [address] (test zxqq=2406) [place] [id number] POCT-GLUCOSE [id number] 12:08:00 Test Item Value Reference Range Comments POC-GLUCOSE METER (BEAKER) 229 mg/dL 70-110 TESTED AT [address] (test xcyr=1069) [place] [id number] POCT-GLUCOSE [id number] 08:27:00 Test Item Value Reference Range Comments POC-GLUCOSE METER (BEAKER) 280 mg/dL 70-110 TESTED AT [address] (test yzvm=5425) [facility] [address] OSMOLALITY, [id number] 05:16:00 Test Item Value Reference Range Comments OSMOLALITY URINE (BEAKER) (test pzdm=036) 340 mOsm/kg 40-1,400 SPECIFIC GRAVITY, [id number] 04:53:00 Test Item Value Reference Range Comments SPECIFIC GRAVITY UA (BEAKER) (test ecic=906) 1.010 1.001-1.035 POCT-GLUCOSE [id number] 22:29:00 Test Item Value Reference Range Comments POC-GLUCOSE METER (BEAKER) 257 mg/dL 70-110 TESTED AT [address] (test wwza=7209) [place] [id number] BASIC METABOLIC [id number] 17:49:00 Test Item Value Reference Range Comments SODIUM (BEAKER) (test 137 meq/L 136-145 vzuf=413) POTASSIUM (BEAKER) (test 4.6 meq/L 3.5-5.1 wlrq=973) CHLORIDE (BEAKER) (test 102 meq/L 98-107 dbic=729) CO2 (BEAKER) (test 26 meq/L 22-29 ttaz=841) BLOOD UREA NITROGEN 14 mg/dL 7-21 (BEAKER) (test icvf=525) CREATININE (BEAKER) (test 0.78 mg/dL 0.57-1.25 otan=858) GLUCOSE RANDOM (BEAKER) 246 mg/dL 70-105 (test abtr=891) CALCIUM (BEAKER) (test 8.7 mg/dL 8.4-10.2 mdim=229) EGFR (BEAKER) (test 79 mL/min/1.73 sq m ESTIMATED GFR IS NOT sfbm=2243) ACCURATE CREATININE CLEARANCE IN PREDICTING GLOMERULAR FILTRATION RATE. ESTIMATED GFR IS NOT APPLICABLE FOR DIALYSIS PATIENTS. POCT-GLUCOSE [id number] 17:02:00 Test Item Value Reference Range Comments POC-GLUCOSE METER (BEAKER) 235 mg/dL 70-110 TESTED AT [address] (test mtfq=7896) [place] [id number] POCT-GLUCOSE [id number] 12:06:00 Test Item Value Reference Range Comments POC-GLUCOSE METER (BEAKER) 249 mg/dL 70-110 TESTED AT [address] (test vntj=8781) [place] [address] POCT-GLUCOSE [id number] 09:40:00 Test Item Value Reference Range Comments POC-GLUCOSE METER (BEAKER) 278 mg/dL 70-110 TESTED AT [address] (test wyra=8692) [place] [address] BASIC METABOLIC [id number] 06:14:00 Test Item Value Reference Range Comments SODIUM (BEAKER) (test 141 meq/L 136-145 qvgu=913) POTASSIUM (BEAKER) (test 4.1 meq/L 3.5-5.1 sygp=355) CHLORIDE (BEAKER) (test 104 meq/L 98-107 catb=421) CO2 (BEAKER) (test 30 meq/L 22-29 pcyn=422) BLOOD UREA NITROGEN 14 mg/dL 7-21 (BEAKER) (test rupa=053) CREATININE (BEAKER) (test 0.70 mg/dL 0.57-1.25 olyp=454) GLUCOSE RANDOM (BEAKER) 146 mg/dL 70-105 (test yyhb=540) CALCIUM (BEAKER) (test 9.4 mg/dL 8.4-10.2 zexv=154) EGFR (BEAKER) (test 89 mL/min/1.73 sq m ESTIMATED GFR IS NOT xzxx=2400) ACCURATE CREATININE CLEARANCE IN PREDICTING GLOMERULAR FILTRATION RATE. ESTIMATED GFR IS NOT APPLICABLE FOR DIALYSIS PATIENTS. [id number] 06:03:00 Test Item Value Reference Range Comments PROTIME (BEAKER) (test cxjw=152) 13.8 seconds 11.7-14.7 INR (BEAKER) (test jvra=463) 1.1 <=5.9 PARTIAL THROMBOPLASTIN TIME (BEAKER) (test 32.0 seconds 22.5-36.0 gqct=539) RECOMMENDED COUMADIN/WARFARIN INR THERAPY RANGESSTANDARD DOSE: 2.0 - 3.0 Includes: PROPHYLAXIS forvenous thrombosis, systemic embolization; TREATMENT for venous thrombosis and/or pulmonary embolus.HIGH RISK: Target INR is 2.5-3.5 for patients with mechanical heart valves. SCREEN, [id number] 05: 59:00 Test Item Value Reference Range Comments TEST URINE (BEAKER) (test ylsd=788) Negative POCT-GLUCOSE [id number] 05:46:00 Test Item Value Reference Range Comments POC-GLUCOSE METER (BEAKER) 140 mg/dL 70-110 TESTED AT [facility] [address] [facility] (test utvk=9473) [facility] [address] CBC W/PLT COUNT & AUTO [id number] 05:46:00 Test Item Value Reference Range Comments WHITE BLOOD CELL COUNT (BEAKER) (test cika=888) 9.6 K/ L 3.5-10.5 RED BLOOD CELL COUNT (BEAKER) (test flkb=527) 5.00 M/ L 3.93-5.22 HEMOGLOBIN (BEAKER) (test rbzw=727) 14.0 GM/DL 11.2-15.7 HEMATOCRIT (BEAKER) (test jcyu=935) 42.1 % 34.1-44.9 MEAN CORPUSCULAR VOLUME (BEAKER) (test viyc=687) 84.2 fL 79.4-94.8 MEAN CORPUSCULAR HEMOGLOBIN (BEAKER) (test 28.0 pg 25.6-32.2 xtvp=437) MEAN CORPUSCULAR HEMOGLOBIN CONC (BEAKER) (test 33.3 GM/DL 32.2-35.5 ckaw=176) RED CELL DISTRIBUTION WIDTH (BEAKER) (test 13.0 % 11.7-14.4 ekta=967) PLATELET COUNT (BEAKER) (test zhwe=282) 227 K/CU MM 150-450 MEAN PLATELET VOLUME (BEAKER) (test mxne=939) 11.8 fL 9.4-12.3 NUCLEATED RED BLOOD CELLS (BEAKER) (test 0 /100 WBC 0-0 vlrl=786) NEUTROPHILS RELATIVE PERCENT (BEAKER) (test 52 % gotq=846) LYMPHOCYTES RELATIVE PERCENT (BEAKER) (test 38 % jhxu=304) MONOCYTES RELATIVE PERCENT (BEAKER) (test 6 % huni=355) EOSINOPHILS RELATIVE PERCENT (BEAKER) (test 3 % zzea=367) BASOPHILS RELATIVE PERCENT (BEAKER) (test 1 % lvgf=359) NEUTROPHILS ABSOLUTE COUNT (BEAKER) (test 5.03 K/ L 1.56-6.13 lzjy=204) LYMPHOCYTES ABSOLUTE COUNT (BEAKER) (test 3.62 K/ L 1.18-3.74 acre=760) MONOCYTES ABSOLUTE COUNT (BEAKER) (test 0.62 K/ L 0.24-0.36 bnxl=927) EOSINOPHILS ABSOLUTE COUNT (BEAKER) (test 0.27 K/ L 0.04-0.36 ylos=353) BASOPHILS ABSOLUTE COUNT (BEAKER) (test 0.05 K/ L 0.01-0.08 hkzx=006) IMMATURE GRANULOCYTES-RELATIVE PERCENT (BEAKER) 1 % 0-1 (test bzqk=0734) POCT-GLUCOSE [id number] 21:27:00 Test Item Value Reference Range Comments POC-GLUCOSE METER (BEAKER) 223 mg/dL 70-110 TESTED AT [address] (test qoxs=1915) [place] [id number] POCT-GLUCOSE [id number] 17:26:00 Test Item Value Reference Range Comments POC-GLUCOSE METER (BEAKER) 223 mg/dL 70-110 TESTED AT [address] (test tqbt=4655) [place] [address] BASIC METABOLIC [id number] 16:43:00 Test Item Value Reference Range Comments SODIUM (BEAKER) (test 139 meq/L 136-145 cccy=582) POTASSIUM (BEAKER) (test 4.5 meq/L 3.5-5.1 Specimen slightly xvzq=400) hemolyzed CHLORIDE (BEAKER) (test 102 meq/L 98-107 fafe=918) CO2 (BEAKER) (test 29 meq/L 22-29 awyj=660) BLOOD UREA NITROGEN 16 mg/dL 7-21 (BEAKER) (test luxb=342) CREATININE (BEAKER) (test 0.76 mg/dL 0.57-1.25 Specimen slightly ypfn=471) hemolyzed GLUCOSE RANDOM (BEAKER) 217 mg/dL 70-105 (test kbzl=479) CALCIUM (BEAKER) (test 9.6 mg/dL 8.4-10.2 udeq=556) EGFR (BEAKER) (test 81 mL/min/1.73 sq m ESTIMATED GFR IS NOT mfsi=8161) ACCURATE CREATININE CLEARANCE IN PREDICTING GLOMERULAR FILTRATION RATE. ESTIMATED GFR IS NOT APPLICABLE FOR DIALYSIS PATIENTS. POCT-GLUCOSE [id number] 09:06:00 Test Item Value Reference Range Comments POC-GLUCOSE METER (BEAKER) 265 mg/dL 70-110 TESTED AT [address] (test hmzx=3200) [place] [id number] POCT-GLUCOSE [id number] 00:22:00 Test Item Value Reference Range Comments POC-GLUCOSE METER (BEAKER) 210 mg/dL 70-110 TESTED AT [address] (test meeg=0746) [place] [address] POCT-GLUCOSE [id number] 20:27:00 Test Item Value Reference Range Comments POC-GLUCOSE METER (BEAKER) 235 mg/dL 70-110 TESTED AT [address] (test tbkt=4598) [place] [id number] POCT-GLUCOSE [id number] 17:10:00 Test Item Value Reference Range Comments POC-GLUCOSE METER (BEAKER) 264 mg/dL 70-110 TESTED AT [address] (test lmmd=0808) [place] [id number] POCT-GLUCOSE [id number] 16:00:00 Test Item Value Reference Range Comments POC-GLUCOSE METER (BEAKER) 242 mg/dL 70-110 TESTED AT [address] (test vrmh=2395) [place] [id number] POCT-GLUCOSE [id number] 08:54:00 Test Item Value Reference Range Comments POC-GLUCOSE METER (BEAKER) 224 mg/dL 70-110 TESTED AT [address] (test pglb=5809) [place] [id number] POCT-GLUCOSE [id number] 21:30:00 Test Item Value Reference Range Comments POC-GLUCOSE METER (BEAKER) 254 mg/dL 70-110 TESTED AT [address] (test pjfq=9855) [place] [id number] POCT-GLUCOSE [id number] 17:23:00 Test Item Value Reference Range Comments POC-GLUCOSE METER (BEAKER) 193 mg/dL 70-110 TESTED AT [address] (test yenp=7213) [place] [address] POCT-GLUCOSE [id number] 11:53:00 Test Item Value Reference Range Comments POC-GLUCOSE METER (BEAKER) 179 mg/dL 70-110 TESTED AT [address] (test afzc=2639) [place] [address] [id number] 10:15:00 Test Item Value Reference Range Comments CORTISOL, TOTAL (BEAKER) (test zxvd=8582) 4.7 ug/dL 3.7-19.4 POCT-GLUCOSE [id number] 08:07:00 Test Item Value Reference Range Comments POC-GLUCOSE METER (BEAKER) 184 mg/dL 70-110 TESTED AT [address] (test rosz=8367) [place] [address] CT, BRAIN, WITHOUT [id number] 22:07:00FINAL REPORT CT Head without contrast CLINICAL [...] [place] Verified Date/Time: 06/20/2018 22:07:25 Reading Location: [address] Transitional Reading Room POCT-GLUCOSE [id number] 21:00:00 Test Item Value Reference Range Comments POC-GLUCOSE METER (BEAKER) 227 mg/dL 70-110 TESTED AT [address] (test bqtf=9697) [place] [address] POCT-GLUCOSE [id number] 16:57:00 Test Item Value Reference Range Comments POC-GLUCOSE METER (BEAKER) 216 mg/dL 70-110 TESTED AT [address] (test yheb=6528) [place] [id number] POCT-GLUCOSE [id number] 13:11:00 Test Item Value Reference Range Comments POC-GLUCOSE METER (BEAKER) 198 mg/dL 70-110 TESTED AT [address] (test etdp=0443) [place] [id number] POCT-GLUCOSE [id number] 07:47:00 Test Item Value Reference Range Comments POC-GLUCOSE METER (BEAKER) 213 mg/dL 70-110 TESTED AT [address] (test kzpt=6372) [place] [address] BASIC METABOLIC [id number] 06:57:00 Test Item Value Reference Range Comments SODIUM (BEAKER) (test 138 meq/L 136-145 xobd=218) POTASSIUM (BEAKER) (test 3.9 meq/L 3.5-5.1 vtux=248) CHLORIDE (BEAKER) (test 105 meq/L 98-107 rqub=585) CO2 (BEAKER) (test 24 meq/L 22-29 nias=097) BLOOD UREA NITROGEN 12 mg/dL 7-21 (BEAKER) (test kaou=094) CREATININE (BEAKER) (test 0.73 mg/dL 0.57-1.25 gvtt=919) GLUCOSE RANDOM (BEAKER) 192 mg/dL 70-105 (test jdhx=392) CALCIUM (BEAKER) (test 8.8 mg/dL 8.4-10.2 wazf=299) EGFR (BEAKER) (test 85 mL/min/1.73 sq m ESTIMATED GFR IS NOT hnzi=4113) ACCURATE CREATININE CLEARANCE IN PREDICTING GLOMERULAR FILTRATION RATE. ESTIMATED GFR IS NOT APPLICABLE FOR DIALYSIS PATIENTS. POCT-GLUCOSE [id number] 05:24:00 Test Item Value Reference Range Comments POC-GLUCOSE METER (BEAKER) 192 mg/dL 70-110 TESTED AT [facility] [address] [facility] (test azzl=5219) [facility] [address] [address], [place] [id number] 01:03:00FINAL REPORT CLINICAL HISTORY: Stroke TECHNIQUE: Initially, [...] Verified Date/ Time: 06/20/2018 01:03:44 Reading Location: [address] Transitional Reading Room [facility], [place], [id number] 01:03:00FINAL REPORT CLINICAL HISTORY: Stroke TECHNIQUE: Initially, [...] Verified Date/ Time: 06/20/2018 01:03:44 Reading Location: [address] Reading Room POCT-GLUCOSE [id number] 00:40:00 Test Item Value Reference Range Comments POC-GLUCOSE METER (BEAKER) 283 mg/dL 70-110 TESTED AT [address] (test gqpe=3738) [facility] [address] POCT-GLUCOSE [id number] 21:21:00 Test Item Value Reference Range Comments POC-GLUCOSE METER (BEAKER) 343 mg/dL 70-110 TESTED AT [address] (test qcsq=5953) [facility] [address] SCREEN, [id number] 18:52:00 Test Item Value Reference Range Comments TEST URINE (BEAKER) (test gjsj=445) Negative POCT-GLUCOSE [id number] 17:17:00 Test Item Value Reference Range Comments POC-GLUCOSE METER (BEAKER) 287 mg/dL 70-110 TESTED AT [facility] [address] [facility] (test sfqs=4632) [facility] [address] [id number] 15:59:00 Test Item Value Reference Range Comments RPR SCREEN (BEAKER) (test eeuc=313) Nonreactive Nonreactive POCT-GLUCOSE [id number] 15:07:00 Test Item Value Reference Range Comments POC-GLUCOSE METER (BEAKER) 323 mg/dL 70-110 TESTED AT [address] (test ldov=8054) [place] [id number] T4, [id number] 13:11:00 Test Item Value Reference Range Comments FREE T4 (BEAKER) (test rxhy=858) 0.89 ng/dL 0.70-1.48 HIV-1 ANTIGEN WITH HIV-1/2 [id number] 13:11:00 Test Item Value Reference Range Comments HIV-1 ANTIGEN WITH HIV 1\\T\\2 ANTIBODY (2) Nonreactive Nonreactive (BEAKER) (test wcpm=5943) RAPID DRUG SCREEN, [id number] 12:47:00 Test Item Value Reference Range Comments BARBITURATE URINE (BEAKER) (test ahza=396) Negative Negative BENZODIAZEPINE SCREEN URINE (BEAKER) (test Negative Negative dils=313) COCAINE (METAB.) SCREEN (BEAKER) (test iuai=3187) Negative Negative METHADONE SCREEN (BEAKER) (test etgw=4489) Negative Negative OPIATE SCREEN URINE (BEAKER) (test eyxe=283) Negative Negative CANNABINOID SCREEN URINE (BEAKER) (test ixxb=365) Negative Negative AMPH/METHAMPH SCREEN (BEAKER) (test jddt=3020) Negative Negative PHENCYCLIDINE SCREEN URINE (BEAKER) (test rcce=417) Negative Negative OXYCODONE SCREEN URINE (BEAKER) (test pynz=0633) Negative Negative DRUG CUTOFF CONC.Cocaine 300 ng/mL Cannabinoid 50 ng/mL Benzodiazepine 200 ng/mLBarbiturate 200 ng/ mLPhencyclidine 25 ng/mLOpiate 300 ng/mLMethadone 300 ng/mLAmphetamine/ 1000 ng/mL MethamphetamineOxycodone 300 ng/mLThis assay provides an unconfirmed qualitative test result for the clinical management of patients in emergency situations. Chain of custody not maintained. Some nmnp-jip-bgduqzb medications, as well as adulterants, may cause inaccurate results. Clinical correlation should be applied. A more comprehensive drug screen or confirmation of a detected drug may be performed upon request.POCT-GLUCOSE [id number] 12:37:00 Test Item Value Reference Range Comments POC-GLUCOSE METER (BEAKER) 292 mg/dL 70-110 TESTED AT [facility] [address] [facility] (test jzje=0434) [facility] [address] HEMOGLOBIN [id number] 12:35:00 Test Item Value Reference Range Comments HEMOGLOBIN A1C (BEAKER) (test elef=898) 7.9 % 4.3-6.1 OSMOLALITY, [id number] 12:34:00 Test Item Value Reference Range Comments OSMOLALITY, SERUM (BEAKER) (test malj=956) 310 mOsm/kg 275-295 C-REACTIVE [id number] 12:28:00 Test Item Value Reference Range Comments C-REACTIVE PROTEIN (BEAKER) (test befm=236) 0.81 mg/dL 0.00-0.50 OSMOLALITY, [id number] 12:22:00 Test Item Value Reference Range Comments OSMOLALITY URINE (BEAKER) (test uhyq=094) 247 mOsm/kg 40-1,400 CBC W/PLT COUNT & AUTO [id number] 12:14:00 Test Item Value Reference Range Comments WHITE BLOOD CELL COUNT (BEAKER) (test yhwt=131) 15.1 K/ L 3.5-10.5 RED BLOOD CELL COUNT (BEAKER) (test mgyr=888) 5.15 M/ L 3.93-5.22 HEMOGLOBIN (BEAKER) (test yezw=382) 14.1 GM/DL 11.2-15.7 HEMATOCRIT (BEAKER) (test adnz=260) 42.3 % 34.1-44.9 MEAN CORPUSCULAR VOLUME (BEAKER) (test dsxe=765) 82.1 fL 79.4-94.8 MEAN CORPUSCULAR HEMOGLOBIN (BEAKER) (test 27.4 pg 25.6-32.2 bygc=564) MEAN CORPUSCULAR HEMOGLOBIN CONC (BEAKER) (test 33.3 GM/DL 32.2-35.5 byod=988) RED CELL DISTRIBUTION WIDTH (BEAKER) (test 12.9 % 11.7-14.4 cgxu=636) PLATELET COUNT (BEAKER) (test bwtn=702) 278 K/CU MM 150-450 MEAN PLATELET VOLUME (BEAKER) (test fdfp=464) 11.5 fL 9.4-12.3 NUCLEATED RED BLOOD CELLS (BEAKER) (test 0 /100 WBC 0-0 ytwi=274) NEUTROPHILS RELATIVE PERCENT (BEAKER) (test 87 % rjlu=201) LYMPHOCYTES RELATIVE PERCENT (BEAKER) (test 10 % uqib=468) MONOCYTES RELATIVE PERCENT (BEAKER) (test 3 % zryh=417) EOSINOPHILS RELATIVE PERCENT (BEAKER) (test 0 % iusd=524) BASOPHILS RELATIVE PERCENT (BEAKER) (test 0 % jrno=426) NEUTROPHILS ABSOLUTE COUNT (BEAKER) (test 13.06 K/ L 1.56-6.13 hyir=861) LYMPHOCYTES ABSOLUTE COUNT (BEAKER) (test 1.51 K/ L 1.18-3.74 puqt=800) MONOCYTES ABSOLUTE COUNT (BEAKER) (test 0.38 K/ L 0.24-0.36 bfno=256) EOSINOPHILS ABSOLUTE COUNT (BEAKER) (test 0.00 K/ L 0.04-0.36 ncni=672) BASOPHILS ABSOLUTE COUNT (BEAKER) (test 0.02 K/ L 0.01-0.08 oazv=362) IMMATURE GRANULOCYTES-RELATIVE PERCENT (BEAKER) 1 % 0-1 (test uykr=2688) POCT-GLUCOSE [id number] 10:30:00 Test Item Value Reference Range Comments POC-GLUCOSE METER (BEAKER) 341 mg/dL 70-110 TESTED AT [address] (test cctc=1533) [facility] [address] [id number] 06:17:00 Test Item Value Reference Range Comments PROLACTIN (BEAKER) (test ebwk=794) 23.34 ng/mL 5.18-26.53 POCT-GLUCOSE [id number] 05:55:00 Test Item Value Reference Range Comments POC-GLUCOSE METER (BEAKER) 285 mg/dL 70-110 TESTED AT [address] (test ndya=5269) [facility] [address] MR, BRAIN, [id number] 02:25:00Pituitary protocolCr 0.6FINAL REPORT MRI brain with and without contrast Comparison: None. 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 Discussion: Multiplanar MR imaging of the brain and sella was provided umz-los-mkbq IV gadolinium administration using T1, T2, FLAIR, [...] MDReport Verified Date/Time: 06/19/2018 02:25:15 Reading Location: [address] Body Reading Room TSH/FREE T4 IF [id number] 00:26:00 Test Item Value Reference Range Comments THYROID STIMULATING HORMONE (BEAKER) (test 0.41 uIU/mL 0.35-4.94 pdtp=487) BASIC METABOLIC [id number] 00:07:00 Test Item Value Reference Range Comments SODIUM (BEAKER) (test 136 meq/L 136-145 ikia=864) POTASSIUM (BEAKER) (test 4.0 meq/L 3.5-5.1 gmdg=586) CHLORIDE (BEAKER) (test 103 meq/L 98-107 uivb=974) CO2 (BEAKER) (test 20 meq/L 22-29 wfei=729) BLOOD UREA NITROGEN 11 mg/dL 7-21 (BEAKER) (test fugl=346) CREATININE (BEAKER) (test 0.84 mg/dL 0.57-1.25 byua=293) GLUCOSE RANDOM (BEAKER) 357 mg/dL 70-105 (test xabd=177) CALCIUM (BEAKER) (test 9.0 mg/dL 8.4-10.2 xvif=097) EGFR (BEAKER) (test 72 mL/min/1.73 sq m ESTIMATED GFR IS NOT xtvc=4000) ACCURATE CREATININE CLEARANCE IN PREDICTING GLOMERULAR FILTRATION RATE. ESTIMATED GFR IS NOT APPLICABLE FOR DIALYSIS PATIENTS. URINALYSIS W/ REFLEX URINE [id number] 23:13:00 Test Item Value Reference Range Comments COLOR (BEAKER) (test kcqr=387) Yellow CLARITY (BEAKER) (test oxnx=776) Clear SPECIFIC GRAVITY UA (BEAKER) (test ofhy=200) 1.011 1.001-1.035 PH UA (BEAKER) (test oxbw=324) 5.0 5.0-8.0 PROTEIN UA (BEAKER) (test rgbw=046) Negative Negative GLUCOSE UA (BEAKER) (test qzgi=081) >1000 mg/dL Negative KETONES UA (BEAKER) (test rqqb=066) 20 mg/dL Negative BILIRUBIN UA (BEAKER) (test fika=857) Negative Negative BLOOD UA (BEAKER) (test towm=058) Negative Negative NITRITE UA (BEAKER) (test dxpm=224) Negative Negative LEUKOCYTE ESTERASE UA (BEAKER) (test cqgu=703) Negative Negative UROBILINOGEN UA (BEAKER) (test qomw=022) 0.2 mg/dL 0.2-1.0 RBC UA (BEAKER) (test dlpa=323) < /HPF WBC UA (BEAKER) (test eyvr=525) < /HPF SQUAMOUS EPITHELIAL (BEAKER) (test pmmc=777) < /HPF SOURCE(BEAKER) (test glhs=6491)
--- OUTSIDE RECORDS SUMMARY | 2018-11-02 07:37 | XMS REPORT ---
[...] Status Dosage System Date Date Atorvastatin Calcium [facility] 04139846337 10 MG Oral Active TAKE 1 TABLET BY MOUTH AT BEDTIME. ProAir HFA [facility] 01430928435 108 (90 Base) Active USE 1-2 MCG/ACT PUFFS BY Inhalation MOUTH EVERY 4-6 HOURS Levothyroxine Sodium ND 98690769248 88 MCG Oral Active TAKE 1 TABLET BY MOUTH EVERY MORNING Valsartan-Hydrochlor ND 59457511136 80-12.5 MG Active TAKE 1 othiazide Oral TABLET BY MOUTH EVERY DAY Benzonatate ND 91181386358 200 MG Oral Active TAKE ONE CAPSULE BY MOUTH 3 TIMES A DAY NEEDED FOR COUGH MethylPREDNISolone ND 61718357596 4 MG Oral Active TAKE 6 TABLETS ON DAY 1 DIRECTED ON PACKAGE AND DECREASE BY 1 TAB EACH DAY FOR A TOTAL OF 6 DAYS GlyBURIDE ND 17896375574 5 MG Orally Iraida Active 1 tablet Once a day 2017 breakfast or the first main meal of the day MetFORMIN HCl ER ND 38671061235 750 MG Oral Active TAKE 1 TABLET BY MOUTH 2 TIMES DAILY BEFORE BREAKFAST AND DINNER. Results No Known Results Summary Purpose eClinicalWorks Submission
--- OUTSIDE RECORDS SUMMARY | 2018-11-02 07:37 | XMS REPORT ---
[...] End Status Dosage System Date Date Hydrochlorothiazide [facility] 57193787400 12.5 MG Orally Jun 07, Active 1 tablet Once a day 2018 in the morning Levothyroxine Sodium ND 89709692459 88 MCG Oral Active TAKE 1 TABLET BY MOUTH EVERY MORNING Metformin HCl [facility] [address]-32 500 MG Orally Active 1 1/2 bid tablets with a meal Amlodipine Besylate ND 19804340720 10 MG Orally Active 1 tablet Once a day Hydrocortisone ND 57940332141 10 MG Orally Active 1 tablet every 12 hrs with food or milk Losartan [facility] 89969539147 50-12.5 MG Active 1 tablet Potassium-HCTZ Orally Once a day GlyBURIDE [facility] [address]-47 5 MG Orally Active 1/2 tablet BID with breakfast or the first main meal of the day Losartan Potassium [facility] 82776965658 50 MG Orally Active 1 tablet Once a day Results No Known Results Summary Purpose eClinicalWorks Submission
--- OUTSIDE RECORDS SUMMARY | 2018-11-02 07:37 | XMS REPORT ---
:1970 Author Organization eClinicalWorks Care Team Providers Name Role Phone Deaf Smith, Neeru Provider Role Unavailable Allergies No [...]
--- OUTSIDE RECORDS SUMMARY | 2018-11-02 07:37 | XMS REPORT ---
[...] without long-term current use of insulin Assessment Hypothyroidism E03.9 Active Assessment Hypertension I10 Active Problem Seasonal allergic rhinitis due to J30.1 Active pollen Problem Type 2 diabetes mellitus without E11.9 Active complication, without long-term current use of insulin Problem Fatty liver K76.0 Active Problem Hyperlipidemia E78.5 Active Problem Hypertension I10 Active Problem Migraines G43.909 Active Problem Allergic rhinitis, unspecified J30.9 Active Medications Medication Code Code Instructions Start End Status Dosage System Date Date Amlodipine ND 44486720633 10 MG Orally Active 1 tablet Besylate Once a day MetFORMIN HCl ER ND 66763004885 750 MG Orally Active 1 tablet Once a day with evening meal Levothyroxine ND 27408174288 88 MCG Oral Active TAKE 1 Sodium TABLET BY MOUTH EVERY MORNING Hydrocortisone ND 55130744240 10 MG Orally Active 1 tablet every 12 hrs with food or milk Losartan ND 11778206900 50 MG Orally Active 1 tablet Potassium Once a day GlyBURIDE [facility] [address]-67 5 MG Orally Active 1/2 tablet BID with breakfast or the first main meal of the day Trulicity [facility] 82655820001 0.75mg/0.5ml October Active one SQ once a week , , injection 2018 2018 Fluconazole [facility] 91082918190 150 MG Orally October Active 1 tablet Once a day 2018 2019 Results Name Result Date Reference Range Unit Abnormality Flag HEMOGLOBIN A1C ----A1C 9.8 [id number] Summary Purpose eClinicalWorks Submission
--- OUTSIDE RECORDS SUMMARY | 2018-11-02 07:37 | XMS REPORT ---
:1970 Author Organization eClinicalWorks Care Team Providers Name Role Phone Neeru Lgoan Provider Role Unavailable Allergies, Adverse Reactions, Alerts [...] End Status Dosage System Date Date Diflucan [facility] 50769483000 150 MG Orally Feb 20Feb Active 1 tablet Once a day 2017 Nitrofurantoin ND 02044121596 100 MG Orally Feb 20Feb Active 1 capsule Macrocrystal BID 2017 12, with food 2018 or milk GlyBURIDE ND 00323316161 5 MG Orally January 21, Active 1 tablet Once a day 2017 with breakfast or the first main meal of the day Levothyroxine ND 60135805229 88 MCG Oral Active TAKE 1 Sodium TABLET BY MOUTH EVERY MORNING Losartan ND 01045767863 50-12.5 MG February 12, Active 1 tablet Potassium-HCTZ Orally Once a 2018 day Valsartan-Hydroch ND 46054007790 80-12.5 MG Oral Active TAKE 1 lorothiazide TABLET BY MOUTH EVERY DAY Results Name Result Date Reference Range Unit Abnormality Flag THINPREP TIS PAP AND HPV mRNA E6/E7, CHLAMYDIA/N.GONORRHOEAE URINALYSIS AUTO W/O SCOPE (32142) ----PROTEIN N [id number] ----pH 5.5 20180220 ----NIT P [id number] ----CONCEPCION 1+ [id number] ----URO 1.0 [id number] ----SPECIFIC GRAVITY 1.015 [id number] ----BLO TR [id number] ----BILIRUBIN N [id number] ----KETONES N [id number] ----GLUCOSE N [id number] Summary Purpose eClinicalWorks Submission
--- OUTSIDE RECORDS SUMMARY | 2018-11-02 07:37 | XMS REPORT ---
:1970 Author Organization eClinicalWorks Care Team Providers Name Role Phone Neeru Logna Provider Role Unavailable Allergies No Known Allergies Problems Problem Type Condition Code Onset Dates Condition Status Problem Hypertension I10 Active Problem Anxiety F41.9 Active Problem Hyperlipidemia E78.5 Active Problem Allergic rhinitis, unspecified J30.9 Active Problem Hypothyroidism E03.9 Active Problem Migraines G43.909 Active Medications Medication Code Code Instructions Start End Date Status Dosage System Date Losartan [facility] 14525297322 50-12.5 MG February 12, Active 1 tablet Potassium-HCTZ Orally Once a 2017 day Results No Known Results Summary Purpose eClinicalWorks Submission
--- OUTSIDE RECORDS SUMMARY | 2018-11-02 07:37 | XMS REPORT ---
[...] End Date Status Dosage System Date Losartan [facility] 56225087525 50-12.5 MG Active 1 tablet Potassium-HCTZ Orally Once a day Results No Known Results Summary Purpose eClinicalWorks Submission
[2018-11-02] MEDS ORDERED: ONDANSETRON 4 MG (ODT) TAB ONE (08:01)
--- NOTE | 2018-11-02 08:01 | EDPHYS ---
Physician Documentation [facility] Name: Chantal Stout Age: 48 yrs Sex: Female : 1970 Arrival Date: 11/02/2018 Time: 07:35 Bed 19 Private MD: JOSE MAR ED Physician Frank Delong HPI: 11/02 07:54 This 48 yrs old Female presents to ER via Ambulatory with complaints of Jaw ps1 Pain, Headache, Toothache. 07:54 patient has known dental nikolai localized to upper right incisor. On amoxicillin. States ps1 that she is on [place] for breakthrough pain but stopped because it made her itch. She does not have a fever. She states that she is supposed to get her tooth pulled on . Pain rated as moderate to severe worse with hot and cold foods. She has subjective facial swelling and headache from the pain. No palsy or FND. Has nausea. Historical: - Allergies: 07:41 Bactrim; ss 07:41 Codeine; ss 07:41 Iodine; ss 07:41 Levaquin; ss 07:41 Sulfa (Sulfonamide Antibiotics); ss 07:41 Cephalexin; ss - PMHx: 07:41 Anemia; Asthma; Diabetes - NIDDM; Hypertension; Hypothyroidism; pituitary tumor- ss surgically removed Jun 24; - PSHx: 07:41 Tonsillectomy; Pituitary tumor; cervical tumor removal; ss - Immunization history:: Adult Immunizations up to date. - Social history:: Smoking status: Patient/guardian denies using tobacco, the patient reports quitting approximately .25 years ago. - Ebola Screening: : Patient denies exposure to infectious person Patient denies travel to an Ebola-affected area in the 21 days before illness onset. ROS: 07:54 Constitutional: Negative for fever, chills, and weight loss, Eyes: Negative for injury, ps1 pain, redness, and discharge, Neck: Negative for injury, pain, and swelling, Cardiovascular: Negative for chest pain, palpitations, and edema, Respiratory: Negative for shortness of breath, cough, wheezing, and pleuritic chest pain, Back: Negative for injury and pain, MS/Extremity: Negative for injury and deformity, Skin: Negative for injury, rash, and discoloration. 07:54 Abdomen/GI: Positive for nausea. 07:54 Neuro: Positive for headache. 07:54 ENT: Positive for dental pain. ps1 Exam: 07:54 Constitutional: This is a well developed, well nourished patient who is awake, alert, ps1 and in no acute distress. Head/Face: Normocephalic, atraumatic. Eyes: Pupils equal round and reactive to light, extra-ocular motions intact. Lids and lashes normal. Conjunctiva and sclera are non-icteric and not injected. Chest/axilla: Normal chest wall appearance and motion. Nontender with no deformity. No lesions are appreciated. Cardiovascular: Regular rate and rhythm. No gallops, murmurs, or rubs. Normal PMI, no JVD. No pulse deficits. Respiratory: Lungs have equal breath sounds bilaterally, clear to auscultation and percussion. No rales, rhonchi or wheezes noted. No increased work of breathing, no retractions or nasal flaring. Abdomen/GI: Soft, non-tender, with normal bowel sounds. No distension or tympany. No guarding or rebound. No evidence of tenderness throughout. Skin: Warm, dry with normal turgor. Normal color with no rashes, no lesions, and no evidence of cellulitis. MS/ Extremity: Pulses equal, no cyanosis. Neurovascular intact. Full, normal range of motion. Neuro: Awake and alert, GCS 15, oriented to person, place, time, and situation. Cranial nerves II-XII grossly intact. Sensory grossly intact. Psych: Awake, alert, with orientation to person, place and time. Behavior, mood, and affect are within normal limits. 07:54 ENT: Nose: is normal, Mouth: is normal, Posterior pharynx: is normal, Dental exam: dental caries, that is moderate, specifically in the upper right lateral incisor (#7). Vital Signs: 07:41 BP 159 / 94; Pulse 97; Resp 16; Temp 97.0(TE); Pulse Ox 96% on R/A; Weight 127.91 kg; ss Height 5 ft. 4 in. (162.56 cm); Pain 8/10; 07:41 Body Mass Index 48.40 (127.91 kg, 162.56 cm) ss Procedures: 07:54 Nerve block: (dental) of periapical block, Medication: Lidocaine 1% with epinephrine, ps1 Marcaine 1%, Amount: 3 mls were injected, Effect: the patient has resolution of the pain, Set up for procedure. Performed by Frank Delong MD Patient tolerated well. MDM: 07:54 Data reviewed: vital signs, nurses notes. Counseling: I had a detailed discussion with ps1 the patient and/or guardian regarding: the historical points, exam findings, and any diagnostic results supporting the discharge/admit diagnosis, the need for outpatient follow up, for definitive care, to return to the emergency department if symptoms worsen or persist or if there are any questions or concerns that arise at home. Response to treatment: the patient's symptoms have markedly improved after treatment, and as a result, I will discharge patient. 08:00 Patient medically screened. ps1 Administered Medications: 07:55 Drug: Marcaine (0.5 %) 2 ml {Note: adminisitered by Dr. Delong.} Volume: 10 ml; Route: ss Infiltration; Site: affected area; 07:55 Drug: Zofran 4 mg Route: PO; ss 08:06 Follow up: Response: No adverse reaction; Nausea is decreased ss 07:55 Drug: Lidocaine-Epinephrine -1%: (1:100,000) 2 ml {Note: administered by Dr. Delong.} ss Volume: 20 ml; Route: Infiltration; Site: affected area; Disposition: 11/02/18 08:00 Discharged to Home. Impression: Acute dental pain, Dental caries. - Condition is Stable. - Discharge Instructions: Dental Caries, Adult. - Prescriptions for Zofran 4 mg Oral Tablet - take 1 tablet by ORAL route every 12 hours As needed; 20 tablet. - Medication Reconciliation Form, Thank You Letter, Antibiotic Education, Prescription Opioid Use form. - Follow up: JOSE MAR; When: As needed; Reason: Continuance of care. Follow up: Emergency Department; When: As needed; Reason: Fever > 102 F, Worsening of condition. - Problem is an ongoing problem. - Symptoms have worsened. Signatures: Alexa Moses RN RN Frank Collins MD MD ps1 Corrections: (The following items were deleted from the chart) 08:10 08:00 11/02/2018 08:00 Discharged to Home. Impression: Acute dental pain; Dental ss caries. Condition is Stable. Forms are Medication Reconciliation Form, Thank You Letter, Antibiotic Education, Prescription Opioid Use. Follow up: JOSE MAR; When: As needed; Reason: Continuance of care. Follow up: Emergency Department; When: As needed; Reason: Fever > 102 F, Worsening of condition. Problem is an ongoing problem. Symptoms have worsened. ps1
--- NOTE | 2018-11-02 08:01 | ER ---
Nurse's Notes [facility] Name: Chantal Stout Age: 48 yrs Sex: Female : 1970 Arrival Date: 11/02/2018 Time: 07:35 Bed 19 Private MD: JSOE MAR Diagnosis: Acute dental pain;Dental caries Presentation: 11/02 07:38 Presenting complaint: Patient states: dental pain x 4-5 days. Has seen a dentist and is ss currently taking amoxicillin to have tooth extracted next . Pt reports she woke up this morning, in much more pain and sweating. Transition of care: patient was not received from another setting of care. Onset of symptoms was October 28, 2018. Risk Assessment: Do you want to hurt yourself or someone else? Patient reports no desire to harm self or others. Initial Sepsis Screen: Does the patient meet any 2 criteria? No. Patient's initial sepsis screen is negative. Does the patient have a suspected source of infection? No. Patient's initial sepsis screen is negative. Care prior to arrival: None. 07:38 Method Of Arrival: Ambulatory ss 07:38 Acuity: NOÉ 4 ss Historical: - Allergies: 07:41 Bactrim; ss 07:41 Codeine; ss 07:41 Iodine; ss 07:41 Levaquin; ss 07:41 Sulfa (Sulfonamide Antibiotics); ss 07:41 Cephalexin; ss - PMHx: 07:41 Anemia; Asthma; Diabetes - NIDDM; Hypertension; Hypothyroidism; pituitary tumor- ss surgically removed Jun 24; - PSHx: 07:41 Tonsillectomy; Pituitary tumor; cervical tumor removal; ss - Immunization history:: Adult Immunizations up to date. - Social history:: Smoking status: Patient/guardian denies using tobacco, the patient reports quitting approximately .25 years ago. - Ebola Screening: : Patient denies exposure to infectious person Patient denies travel to an Ebola-affected area in the 21 days before illness onset. Screenin:38 Abuse screen: Denies threats or abuse. Denies injuries from another. Nutritional ss screening: No deficits noted. Tuberculosis screening: Never had TB. Fall Risk None identified. Assessment: 07:38 General: Appears uncomfortable, Behavior is calm, cooperative, Reports chills for 12-24 ss hours, feeling ill for 12-24 hours. Pain: Complains of pain in gums and upper right lateral incisor Pain currently is 8 out of 10 on a pain scale. Quality of pain is described as aching, throbbing, Pain began 4-5 days ago, is much worse this morning Is continuous. Neuro: Level of Consciousness is awake, alert, obeys commands, Oriented to person, place, time, situation, Denies weakness blurred vision. Cardiovascular: Capillary refill < 3 seconds is brisk in bilateral fingers. Respiratory: Airway is patent Respiratory effort is even, unlabored, Respiratory pattern is regular, symmetrical. GI: Reports nausea. EENT: Oral mucosa is moist. Throat is clear. EENT: Nares are clear Poor dentition noted. Derm: Skin is intact, is healthy with good turgor, Skin is dry, Skin is pink, warm \T\ dry. normal. Musculoskeletal: Circulation, motion, and sensation intact. Capillary refill < 3 seconds, is brisk, in bilateral fingers. Range of motion: intact in all extremities, Swelling. 08:05 Reassessment: Patient is alert, oriented x 3, equal unlabored respirations, skin ss warm/dry/pink. patient reports that pain has decreased significantly since administration of lidocaine Patient states feeling better. Patient states symptoms have improved. Vital Signs: 07:41 BP 159 / 94; Pulse 97; Resp 16; Temp 97.0(TE); Pulse Ox 96% on R/A; Weight 127.91 kg; ss Height 5 ft. 4 in. (162.56 cm); Pain 8/10; 07:41 Body Mass Index 48.40 (127.91 kg, 162.56 cm) ED Course: 07:35 Patient arrived in ED. rg4 07:35 JOSE MAR is Private Physician. rg4 07:38 Patient has correct armband on for positive identification. Bed in low position. Call ss light in reach. 07:40 Triage completed. ss 07:41 Arm band placed on right wrist. ss 07:42 Frank Delong MD is Attending Physician. ps1 07:50 Castro Canales LVN is Primary Nurse. em 07:59 JOSE MAR is Referral Physician. ps1 08:06 No provider procedures requiring assistance completed. Patient did not have IV access ss during this emergency room visit. Administered Medications: 07:55 Drug: Marcaine (0.5 %) 2 ml {Note: adminisitered by Dr. Delong.} Volume: 10 ml; Route: ss Infiltration; Site: affected area; 07:55 Drug: Zofran 4 mg Route: PO; ss 08:06 Follow up: Response: No adverse reaction; Nausea is decreased ss 07:55 Drug: Lidocaine-Epinephrine -1%: (1:100,000) 2 ml {Note: administered by Dr. Delong.} ss Volume: 20 ml; Route: Infiltration; Site: affected area; Outcome: 08:00 Discharge ordered by . ps1 08:10 Discharged to home ambulatory, with family. ss 08:10 Condition: good 08:10 Discharge instructions given to patient, family, Instructed on discharge instructions, follow up and referral plans. medication usage, Demonstrated understanding of instructions, follow-up care, medications, Prescriptions given X 1. 08:10 Patient left the ED. Signatures: Castro Canales, SATELLITE DISH REPAIRER SATELLITE DISH REPAIRER Alexa Flowers RN RN Katie Madera rg4 Frank Delong MD MD ps1
[2018-11-02 08:18] VITALS: BP 159/94; TEMP 97; O2SAT 96
== END 2018-11-02 08:10 | disposition home or self-care (01) ==
LOC: ER 07:32
DX: K02.9 Dental caries, unspecified (principal); D64.9 Anemia, unspecified; J45.909 Unspecified asthma, uncomplicated; E11.9 Type 2 diabetes mellitus without complications; E03.9 Hypothyroidism, unspecified; I10 Essential (primary) hypertension; Z88.1 Allergy status to other antibiotic agents; Z88.5 Allergy status to narcotic agent; Z88.2 Allergy status to sulfonamides; Z87.891 Personal history of nicotine dependence
CPT/HCPCS: 99283

== ENCOUNTER 2018-11-03 00:03 | Emergency (ER) | payer BC ==
--- OUTSIDE RECORDS SUMMARY | 2018-11-03 00:07 | XMS REPORT | Clinical Summary ---
:1970 Author Organization [facility] Address [address] [place] [address] Care Team Providers Name Role Phone Pcp, [...] packet by 3 packet 5 06/25/2018 Active zegrg-iqbgdo-ieulor Nasal route 2 bottle (NEILMED (two) times [...] MD Mezrahi, Maria, MD 06/18/2018 Travel after 11/02/2017 Family History Medical History Relation Name Comments [...] Taken Blood Pressure 125/71 06/27/2018 12:09 PM SNOWMOBILE MECHANIC Pulse 63 06/27/2018 12:09 PM [employer]OWMOBILE MECHANIC Temperature 36.2 C (97.1 F) 06/27/2018 12:09 PM SNOWMOBILE MECHANIC Respiratory Rate 18 06/27/2018 12:09 PM SNOWMOBILE MECHANIC Oxygen Saturation 97% 06/27/2018 12:09 PM SNOWMOBILE MECHANIC Inhaled Oxygen Concentration - - Weight 122.5 kg (270 lb) 06/18/2018 9:00 PM SNOWMOBILE MECHANIC Height 162.6 cm (5' 4") 06/18/2018 9:00 PM SNOWMOBILE MECHANIC Body Mass Index 46.35 06/18/2018 9:00 PM SNOWMOBILE MECHANIC Plan of Treatment Date Type Specialty Care Team Description 11/15/2018 Appointment Radiology Alex Ruano MD [address] [address] [phone] Implants Implanted Type Area Stockroom Supervisor Device Shelf Model / Identifier Expiration Serial / Date Lot Sealant Durasl Spine 5ml [id number] - [id number] Cement/Fi N/A: [employer]TE[employer] LIFESCI 10/21/2019 [id number] / Implanted: Qty: 1 on 06/24/2018 by Alex Ruano MD ller/[place]ent[place] / sive [id number] [facility] Full Strlprep 10ml [id number] - [id number] Cement/Fi N/A: FUNES: BIOSCI 11/18/2019 [id number] / Implanted: Qty: 1 on 06/24/2018 by Alex Ruano MD ller/[place] / sive [id number] Graft Matrix Dura 1x3 [id number] - [id number] Neuro N/A: [employer] 02/20/2020 [id number] / Implanted: Qty: 1 on 06/24/2018 by Alex Ruano MD Head SURGICAL / NAVIGATION [id number] Procedures Procedure Name Priority Date/Time Associated Comments Diagnosis INTRAOPERATIVE PATH 06/29/2018 1:00 REPORT - SCAN PM SNOWMOBILE MECHANIC RHYTHM STRIP - SCAN 06/29/2018 1:00 PM SNOWMOBILE MECHANIC POCT-GLUCOSE METER Routine 06/27/2018 12:07 Results for this PM SNOWMOBILE MECHANIC procedure are in the results section. POCT-GLUCOSE METER Routine 06/27/2018 7:41 Results for this AM SNOWMOBILE MECHANIC procedure are in the results section. CBC W/PLT COUNT & AUTO Routine 06/27/2018 5:56 Results for this DIFFERENTIAL AM SNOWMOBILE MECHANIC procedure are in the results section. BASIC METABOLIC PANEL Routine 06/27/2018 5:56 Results for this (7) AM [employer]MOBILE MECHANIC procedure are in the results section. CBC W/PLT COUNT & AUTO Routine 06/27/2018 5:56 Results for this DIFFERENTIAL AM SNOWMOBILE MECHANIC procedure are in the results section. CBC W/PLT COUNT & AUTO STAT 06/26/2018 11:18 Results for this DIFFERENTIAL PM [employer]OWMOBILE MECHANIC procedure are in the results section. CBC W/PLT COUNT & AUTO STAT 06/26/2018 11:18 Results for this DIFFERENTIAL PM SNOWMOBILE MECHANIC procedure are in the results section. BASIC METABOLIC PANEL STAT 06/26/2018 11:18 Results for this (7) PM SNOWMOBILE MECHANIC procedure are in the results section. SODIUM, RANDOM URINE STAT 06/26/2018 11:11 Results for this PM SNOWMOBILE MECHANIC procedure are in the results section. CT BRAIN WITHOUT IV STAT 06/26/2018 10:25 Results for this CONTRAST PM SNOWMOBILE MECHANIC procedure are in the results section. POCT-GLUCOSE METER Routine 06/26/2018 9:01 Results for this PM SNOWMOBILE MECHANIC procedure are in the results section. CBC W/PLT COUNT & AUTO Routine 06/26/2018 1:55 Results for this DIFFERENTIAL PM SNOWMOBILE MECHANIC procedure are in the results section. BASIC METABOLIC PANEL Routine 06/26/2018 1:55 Results for this (7) PM SNOWMOBILE MECHANIC procedure are in the results section. CBC W/PLT COUNT & AUTO Routine 06/26/2018 1:55 Results for this DIFFERENTIAL PM SNOWMOBILE MECHANIC procedure are in the results section. POCT-GLUCOSE METER Routine 06/26/2018 1:33 Results for this PM SNOWMOBILE MECHANIC procedure are in the results section. POCT-GLUCOSE METER Routine 06/26/2018 12:06 Results for this PM SNOWMOBILE MECHANIC procedure are in the results section. POCT-GLUCOSE METER Routine 06/25/2018 4:10 Results for this PM SNOWMOBILE MECHANIC procedure are in the results section. POCT-GLUCOSE METER Routine 06/25/2018 12:02 Results for this PM SNOWMOBILE MECHANIC procedure are in the results section. POCT-GLUCOSE METER Routine 06/25/2018 8:02 Results for this AM SNOWMOBILE MECHANIC procedure are in the results section. OSMOLALITY, URINE STAT 06/25/2018 4:23 Results for this AM SNOWMOBILE MECHANIC procedure are in the results section. SPECIFIC GRAVITY, STAT 06/25/2018 4:23 Results for this URINE AM SNOWMOBILE MECHANIC procedure are in the results section. POCT-GLUCOSE METER Routine 06/24/2018 9:56 Results for this PM SNOWMOBILE MECHANIC procedure are in the results section. POCT-GLUCOSE METER Routine 06/24/2018 4:57 Results for this PM SNOWMOBILE MECHANIC procedure are in the results section. BASIC METABOLIC PANEL STAT 06/24/2018 4:50 Results for this (7) PM SNOWMOBILE MECHANIC procedure are in the results section. POCT-GLUCOSE METER Routine 06/24/2018 11:09 Results for this AM SNOWMOBILE MECHANIC procedure are in the results section. POCT-GLUCOSE METER Routine 06/24/2018 9:38 Results for this AM SNOWMOBILE MECHANIC procedure are in the results section. TISSUE EXAM AP Routine 06/24/2018 8:02 Results for this AM SNOWMOBILE MECHANIC procedure are in the results section. ENDOSCOPIC SINUS 06/24/2018 7:00 Pituitary adenoma SURGERY,REPAIR CSF AM SNOWMOBILE MECHANIC (HCC) [place] Special Needs (STEALTH NAVIGATION, LUMBAR DRAIN SET, LANDMARK CT SCAN ON ) TURBINECTOMY,NASAL 06/24/2018 7:00 AM SNOWMOBILE MECHANIC Pituitary adenoma (HCC) Special Needs (STEALTH NAVIGATION, LUMBAR DRAIN SET, LANDMARK CT SCAN ON ) ENDOSCOPIC SINUS 06/24/2018 7:00 AM SNOWMOBILE MECHANIC Pituitary adenoma SURGERY,ETHMOIDECTOMY W/ (HCC) SPHENOIDOTOMY Special Needs (STEALTH NAVIGATION, LUMBAR DRAIN SET, LANDMARK CT SCAN ON ) PROCEDURE W/ STEALTH 06/24/2018 7:00 AM SNOWMOBILE MECHANIC Pituitary adenoma (HCC) Special Needs (STEALTH NAVIGATION, LUMBAR DRAIN SET, LANDMARK CT SCAN ON ) ENDOSCOPIC CRANIOTOMY,REMOVAL 06/24/2018 7:00 AM SNOWMOBILE MECHANIC Pituitary adenoma ( HCC) TRANSSPHENOIDAL PITUITARY TUMOR Special Needs (STEALTH NAVIGATION, LUMBAR DRAIN SET, LANDMARK CT SCAN ON ) POCT-GLUCOSE METER Routine 06/24/2018 5:42 AM SNOWMOBILE MECHANIC SCREEN, URINE STAT 06/24/2018 5:16 AM SNOWMOBILE MECHANIC BASIC METABOLIC PANEL (7) Routine 06/24/2018 5:16 AM SNOWMOBILE MECHANIC CBC W/PLT COUNT & AUTO Routine 06/24/2018 5:07 AM SNOWMOBILE MECHANIC Results for this DIFFERENTIAL procedure are in the results section. PT/APTT Routine 06/24/2018 5:07 AM SNOWMOBILE MECHANIC CBC W/PLT COUNT & AUTO Routine 06/24/2018 5:07 AM SNOWMOBILE MECHANIC Results for this DIFFERENTIAL procedure are in the results section. POCT-GLUCOSE METER Routine 06/23/2018 9:21 PM SNOWMOBILE MECHANIC POCT-GLUCOSE METER Routine 06/23/2018 4:31 PM SNOWMOBILE MECHANIC BASIC METABOLIC PANEL (7) Routine 06/23/2018 4:13 PM SNOWMOBILE MECHANIC POCT-GLUCOSE METER Routine 06/23/2018 8:30 AM SNOWMOBILE MECHANIC POCT-GLUCOSE METER Routine 06/22/2018 11:34 PM SNOWMOBILE MECHANIC POCT-GLUCOSE METER Routine 06/22/2018 8:21 PM SNOWMOBILE MECHANIC POCT-GLUCOSE METER Routine 06/22/2018 5:07 PM SNOWMOBILE MECHANIC POCT-GLUCOSE METER Routine 06/22/2018 11:49 AM SNOWMOBILE MECHANIC POCT-GLUCOSE METER Routine 06/22/2018 8:30 AM SNOWMOBILE MECHANIC POCT-GLUCOSE METER Routine 06/21/2018 9:09 PM SNOWMOBILE MECHANIC POCT-GLUCOSE METER Routine 06/21/2018 5:20 PM SNOWMOBILE MECHANIC POCT-GLUCOSE METER Routine 06/21/2018 11:06 AM SNOWMOBILE MECHANIC ECHOCARDIOGRAM REPORT - SCAN 06/21/2018 9:21 AM SNOWMOBILE MECHANIC FOLLICLE STIMULATING HORMONE Routine 06/21/2018 9:11 AM SNOWMOBILE MECHANIC Results for this (FSH) procedure are in the results section. INSULIN-LIKE GROWTH FACTOR Routine 06/21/2018 9:11 AM SNOWMOBILE MECHANIC ACTH Routine 06/21/2018 9:11 AM SNOWMOBILE MECHANIC CORTISOL Routine 06/21/2018 9:11 AM SNOWMOBILE MECHANIC POCT-GLUCOSE METER Routine 06/21/2018 7:[address] BRAIN WITHOUT IV CONTRAST TERI 06/20/2018 9:48 PM SNOWMOBILE MECHANIC POCT-GLUCOSE METER Routine 06/20/2018 8:48 PM SNOWMOBILE MECHANIC 2D ECHO W/ DOPPLER Routine 06/20/2018 6:40 PM SNOWMOBILE MECHANIC Results for this (CW/PW/COLOR) procedure are in the results section. POCT-GLUCOSE METER Routine 06/20/2018 4:48 PM SNOWMOBILE MECHANIC POCT-GLUCOSE METER Routine 06/20/2018 1:06 PM SNOWMOBILE MECHANIC POCT-GLUCOSE METER Routine 06/20/2018 7:21 AM SNOWMOBILE MECHANIC POCT-GLUCOSE METER Routine 06/20/2018 5:22 AM SNOWMOBILE MECHANIC BASIC METABOLIC PANEL (7) STAT 06/20/2018 5:08 AM SNOWMOBILE MECHANIC POCT-GLUCOSE METER Routine 06/20/2018 12:[address]/CTA CAROTID TERI 06/19/2018 10:[address]/CTA BRAIN TERI 06/19/2018 10:46 PM SNOWMOBILE MECHANIC POCT-GLUCOSE METER Routine 06/19/2018 9:19 PM SNOWMOBILE MECHANIC POCT-GLUCOSE METER Routine 06/19/2018 5:06 PM SNOWMOBILE MECHANIC POCT-GLUCOSE METER Routine 06/19/2018 3:03 PM SNOWMOBILE MECHANIC POCT-GLUCOSE METER Routine 06/19/2018 12:27 PM SNOWMOBILE MECHANIC SCREEN, URINE Routine 06/19/2018 11:54 AM SNOWMOBILE MECHANIC OSMOLALITY, URINE Routine 06/19/2018 11:54 AM SNOWMOBILE MECHANIC RAPID DRUG SCREEN, URINE Routine 06/19/2018 11:54 AM SNOWMOBILE MECHANIC CBC W/PLT COUNT & AUTO Routine 06/19/2018 11:49 AM SNOWMOBILE MECHANIC Results for this DIFFERENTIAL procedure are in the results section. INSULIN-LIKE GROWTH FACTOR Routine 06/19/2018 11:49 AM SNOWMOBILE MECHANIC OSMOLALITY, SERUM Routine 06/19/2018 11:49 AM SNOWMOBILE MECHANIC T4, FREE Routine 06/19/2018 11:49 AM SNOWMOBILE MECHANIC C-REACTIVE PROTEIN Routine 06/19/2018 11:49 AM SNOWMOBILE MECHANIC HIV-1 ANTIGEN WITH HIV-1/2 Routine 06/19/2018 11:49 AM SNOWMOBILE MECHANIC Results for this ANTIBODY procedure are in the results section. RPR Routine 06/19/2018 11:49 AM SNOWMOBILE MECHANIC CBC W/PLT COUNT & AUTO Routine 06/19/2018 11:49 AM SNOWMOBILE MECHANIC Results for this DIFFERENTIAL procedure are in the results section. POCT-GLUCOSE METER Routine 06/19/2018 9:25 AM SNOWMOBILE MECHANIC POCT-GLUCOSE METER Routine 06/19/2018 5:51 AM SNOWMOBILE MECHANIC GROWTH HORMONE Routine 06/19/2018 3:49 AM SNOWMOBILE MECHANIC LUTEINIZING HORMONE (LH) Routine 06/19/2018 3:49 AM SNOWMOBILE MECHANIC ACTH Routine 06/19/2018 3:49 AM SNOWMOBILE MECHANIC PROLACTIN Routine 06/19/2018 3:49 AM SNOWMOBILE MECHANIC MR BRAIN WITHOUT & WITH IV STAT 06/19/2018 2:25 AM SNOWMOBILE MECHANIC Results for this CONTRAST procedure are in the results section. HEMOGLOBIN A1C Routine 06/19/2018 12:39 AM SNOWMOBILE MECHANIC TSH/FREE T4 IF INDICATED Routine 06/18/2018 11:32 PM SNOWMOBILE MECHANIC BASIC METABOLIC PANEL (7) STAT 06/18/2018 11:32 PM SNOWMOBILE MECHANIC URINALYSIS W/ REFLEX URINE Routine 06/18/2018 10:27 PM SNOWMOBILE MECHANIC Results for this CULTURE procedure are in the results section. after 11/02/2017 Results INTRAOPERATIVE PATH REPORT - SCAN (06/29/2018 1:00 PM SNOWMOBILE MECHANIC) Narrative Performed At RHYTHM STRIP - SCAN (06/29/2018 1:00 PM SNOWMOBILE MECHANIC) Narrative Performed At POC-Glucose meter (06/27/2018 12:07 PM SNOWMOBILE MECHANIC)Only the most recent of37 resultswithin the time period is included. POC-Glucose Meter 141 (H)Comment: TESTED AT 70 - 110 mg/dL [address] [address] Specimen Blood Performing Organization Address City/State/Zipcode Phone Number [address] [address] CENTER CBC with platelet count + automated diff (06/27/2018 5:56 AM SNOWMOBILE MECHANIC)Only the most recent of5 resultswithin the time period is included. WBC 8.7 3.5 - 10.5 K/L [facility] RBC 4.82 3.93 - 5.22 M/L [facility] Hemoglobin 13.2 11.2 - 15.7 GM/DL [facility] Hematocrit 40.8 34.1 - 44.9 % [facility] MCV 84.6 79.4 - 94.8 fL [facility] MCH 27.4 25.6 - 32.2 pg [facility] MCHC 32.4 32.2 - 35.5 GM/DL [facility] RDW 13.2 11.7 - 14.4 % [facility] Platelets 233 150 - 450 K/CU MM [facility] MPV 11.5 9.4 - 12.3 fL [facility] nRBC 0 0 - 0 /100 WBC [facility] % Neutros 65 % [facility] % Lymphs 24 % [facility] % Monos 8 % [facility] % Eos 2 % [facility] % Baso 0 % [facility] # Neutros 5.65 1.56 - 6.13 K/L [facility] # Lymphs 2.07 1.18 - 3.74 K/L [facility] # Monos 0.70 (H) 0.24 - 0.36 K/L [facility] # Eos 0.16 0.04 - 0.36 K/L [facility] # Baso 0.02 0.01 - 0.08 K/L [facility] Immature Granulocytes-Relative 1 0 - 1 % [facility] Specimen Blood Performing Organization Address City/State/Zipcode Phone Number [facility] [address] [place] [address] CENTER Basic Metabolic Panel (06/27/2018 5:56 AM SNOWMOBILE MECHANIC)Only the most recent of8 resultswithin the time period is included. Sodium 139 136 - 145 meq/L [facility] Potassium 4.1 3.5 - 5.1 meq/L [facility] Chloride 105 98 - 107 meq/L [facility] CO2 28 22 - 29 meq/L [facility] BUN 11 7 - 21 mg/dL [facility] Creatinine 0.69 0.57 - 1.25 mg/dL [facility] Glucose 163 (H) 70 - 105 mg/dL [facility] Calcium 8.6 8.4 - 10.2 mg/dL [facility] EGFR 91Comment: ESTIMATED GFR IS mL/min/1.73 sq m [facility] NOT ACCURATE CREATININE [facility] CENTER CLEARANCE IN PREDICTING GLOMERULAR FILTRATION RATE. ESTIMATED GFR IS NOT APPLICABLE FOR DIALYSIS PATIENTS. Specimen Blood Performing Organization Address City/[facility]/Zipcode Phone Number [address] [address] [place] Sodium, random urine (06/26/2018 11:11 PM SNOWMOBILE MECHANIC) Sodium Urine <20 meq/L [facility] Specimen Urine - Urine, Voided Narrative Performed At Reference Range: No Normals [facility] Performing Organization Address City/State/Zipcode Phone Number [address] [place] [address] brain without IV contrast (06/26/2018 10:25 PM SNOWMOBILE MECHANIC)Only the most recent of2 resultswithin the time period is included. Narrative Performed At FINAL REPORT [facility] CT Head without contrast CLINICAL [...] MD Report Verified Date/Time:06/26/2018 22:57:28 Reading Location: [facility] C0[facility] Transitional Reading Room Procedure Note Interface, External Ris In - 06/26/2018 10:59 PM SNOWMOBILE MECHANIC FINAL REPORT CT Head without contrast CLINICAL [...] Report Verified Date/Time: 06/26/2018 22:57:28 Reading Location: [facility] C0[facility] Transitional Reading Room Performing Organization Address City/State/Zipcode Phone Number GE RIS Specific gravity, urine (06/25/2018 4:23 AM SNOWMOBILE MECHANIC) Specific [place], UA 1.010 1.001 - 1.035 [facility] Specimen Urine - Urine, Fonseca Performing Organization Address [facility] Phone Number [address] [address] [place] Osmolality, urine (06/25/2018 4:23 AM SNOWMOBILE MECHANIC)Only the most recent of2 resultswithin the time period is included. Osmolality, Ur 340 40-1,400 mOsm/kg [facility] Specimen Urine - Urine, Fonseca Performing Organization Address [facility] Phone Number [address] [address] [phone] [place] Tissue Exam (06/24/2018 8:02 AM SNOWMOBILE MECHANIC) Case Report Surgical Pathology Report Case: [id number] [facility] Authorizing Provider:Alex Ruano MD Collected: 06/24/[address] [place] [address] MEDICAL Ordering Location: [address] Received: 06/24/2018 0809 CENTER Service Pathologist: Chon Caraballo MD Specimens: A) - Tumor, pituitary tumor B) - Tumor, pituitary tumor DIAGNOSIS A.PITUITARY GLAND, TRANSSPHENOIDAL 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 PITUITARY GLAND, TRANSSPHENOIDAL HYPOPHYSECTOMY: NULL CELL ADENOMA ENTRAPPED ADENOHYPOPHYSIS Signing Pathologist Direct Phone Line: [phone] COMMENT Immunoperoxidase stains LIMA FERRERS performed on the second [facility] specimen show that the tumor CENTER has no staining for growth hormone, LH, FSH, TSH, prolactin, or ACTH. 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 The MIB-1 proliferation index is less than 1%. CPT Code(s) 52514 x 2; 80970; 56369; 06401 [facility] x 6; 86092 [facility] CLINICAL HISTORY Pituitary adenoma [facility] SPECIMEN SOURCE A. Pituitary tumor; B. [facility] Pituitary tumor [facility] GROSS DESCRIPTION A. The specimen is received fresh for frozen section diagnosis and labeled "pituitary tumor" and consists of a single fragment of tariq -red soft tissue measuring 0.5 cm in greatest dimension submitted ent [facility] for frozen section diagnosis, and touch preps are performed. CG/ew [facility] B. Received fresh labeled "tumor", description "pituitary tumor" is a 2.0 x 1.0 x 0.3 cm aggregate of pink-tariq to hannah-white rubbery friable soft tissue. The specimen is entirely submitted in cassette B1. DB/pl INTRAOPERATIVE FROZEN SECTION DIAGNOSIS, PITUITARY TUMOR: [facility] CONSULTATION ADENOMA EXTENDING INTO RESPIRATORY MUCOSA PER DR. CARABALLO [facility] MICROSCOPIC DESCRIPTION Performed on A and B [facility] SPECIAL STUDIES The interpretation of this case included the use of immunohistochemistry or special stains. [facility] Immunohistochemistry technical testing was performed at [place] [...] Tumor Performing Organization Address City/State/Zipcode Phone Number [facility] [address] [place] [address] CENTER Screen, urine (06/24/2018 5:16 AM SNOWMOBILE MECHANIC)Only the most recent of2 resultswithin the time period is included. Preg Test, Ur Negative [facility] Specimen Urine Performing Organization Address [facility] Phone Number [address] [address] [phone] CENTER PT/aPTT (06/24/2018 5:07 AM SNOWMOBILE MECHANIC) Protime 13.8 11.7 - 14.7 seconds [facility] INR 1.1 <=5.9 [facility] PTT 32.0 22.5 - 36.0 seconds [facility] Specimen Blood Narrative Performed At RECOMMENDED COUMADIN/WARFARIN INR THERAPY [facility] RANGES STANDARD DOSE: 2.0 - 3.0 Includes: PROPHYLAXIS for venous thrombosis, systemic embolization; TREATMENT for venous thrombosis and/or pulmonary embolus. HIGH RISK: Target INR is 2.5-3.5 for patients with mechanical heart valves. Performing Organization Address [facility] Phone Number [address] [address] [place] ECHOCARDIOGRAM REPORT - SCAN (06/21/2018 9:21 AM SNOWMOBILE MECHANIC) Narrative Performed At Cortisol (06/21/2018 9:11 AM SNOWMOBILE MECHANIC) Cortisol, Total 4.7 3.7 - 19.4 ug/dL [facility] Specimen Blood - Arm, Right Performing Organization Address [facility] Phone Number [address] [address] [phone] CENTER Insulin-like growth factor (06/21/2018 9:11 AM SNOWMOBILE MECHANIC)Only the most recent of2 resultswithin the time period is included. Igf-1(Somatomedin-C) 36 (L) 52 - 328 ng/mL [facility] Z-Score Male: DNR [facility] Z-Score Female: -2.6 (L) -2.0 - 2.0 SD [facility] Comment: [facility]POR[facility] This test was developed and its analytical performance characteristics have been determined by [facility]. It has not been cleared or approved by FDA. This assay has been validated pursuant to the CLIA regulations and is used for clinical purposes. Specimen Blood - Arm, Right Narrative Performed At Performing Lab [employer] [facility] EZ [employer] [address] [address] Sixto Rodrigez MD, PhD, ANABELL Performing Organization Address [facility] Number [place] [address] [address] [place] [address] ACTH (06/21/2018 9:11 AM SNOWMOBILE MECHANIC)Only the most recent of2 resultswithin the time period is included. ACTH 17 6 - 50 pg/mL [employer] [facility] Comment: Reference range applies only to the specimens collected between 7am-10am. Specimen Blood - Arm, Right Narrative Performed At Performing Lab [employer] [facility] [employer] [address] [address] Sixto Rodrigez MD, PhD, ANABELL Performing Organization Address [facility] Number [place] [address] [place] [address] Follicle stimulating hormone (FSH) (06/21/2018 9:11 AM SNOWMOBILE MECHANIC) Fsh 2.3 mIU/mL [facility] Comment: Adult female reference ranges for FSH: Follicular Phase: 2.5- 10.2 mIU/mL Mid-Cycle:3.1- 17.7 mIU/mL Luteal Phase: 1.5-9.1 mIU/mL Postmenopausal:23.0-116.3 mIU/mL Children (<18 Years Old): FSH reference ranges established on post-pubertal patient population. Reference range not established for pre-pubertal patients using this assay. For pre-pubertal patients, the [facility] FSH, Pediatrics assay is recommended (test code 21916). Specimen Blood - Arm, Right Narrative Performed At Performing Lab [employer] [facility] [employer] [address] Sixto Rodrigez MD, PhD, ANABELL Performing Organization Address [facility]/Zipcode Phone Number [facility] [place], [place] [address] [address] [facility] 2D Echo W/Doppler(CW/PW/Color) (06/20/2018 6:40 PM SNOWMOBILE MECHANIC) Ejection Fraction [facility] ECHO [facility]ART[facility] 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 [employer] [place] Tony Fernandez Interpreting Tarik Domínguez MD Procedure [...] External Ris In - 06/21/2018 8:37 AM SNOWMOBILE MECHANIC Transthoracic Echocardiography Report (TTE) Demographics Patient Name VY STOUT Date of Study 06/20/2018 Gender Female Visit Number [id number] Race Unknown Room Number 2251 Number Date of 1970 Referring Physician Althea Mireles MD 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 CTA carotid (06/19/2018 10:46 PM SNOWMOBILE MECHANIC) Narrative Performed At FINAL REPORT [employer] [facility] CLINICAL HISTORY: Stroke TECHNIQUE: Initially, noncontrast [...] MD Report Verified Date/Time:06/20/2018 01:03:44 Reading Location: 46 [address] Transitional Reading Room Procedure Note Interface, External Ris In - 06/20/2018 1:05 AM SNOWMOBILE MECHANIC FINAL REPORT CLINICAL HISTORY: Stroke TECHNIQUE: Initially, [...] Report Verified Date/Time: 06/20/2018 01:03:44 Reading Location: [address] Transitional Reading Room Performing Organization Address City/State/Zipcode Phone Number GE RIS CTA brain (06/19/2018 10:46 PM SNOWMOBILE MECHANIC) Narrative Performed At FINAL REPORT GE RIS [...] MD Report Verified Date/Time:06/20/2018 01:03:44 Reading Location: [address] Transitional Reading Room Procedure Note Interface, External Ris In - 06/20/2018 1:05 AM SNOWMOBILE MECHANIC FINAL REPORT CLINICAL HISTORY: Stroke TECHNIQUE: Initially, [...] Rapid drug screen, urine (06/19/2018 11:54 AM SNOWMOBILE MECHANIC) Barbiturate Screen Negative Negative [facility] Benzodiazepine Screen Negative Negative [facility] Cocaine (Metab.) Screen Negative Negative [facility] Methadone Screen Negative Negative [facility] Opiate Screen Negative Negative [facility] Cannabinoid Screen Negative Negative [facility] Amph/Methamph Screen Negative Negative [facility] Phencyclidine Screen Negative Negative [facility] Oxycodone Screen Negative Negative [facility] Specimen Urine - Urine, Voided Narrative Performed At [facility] CONC. Cocaine 300 ng/mL Uqlmjgvxhgz22 ng/mL Qxpzznstsnbtta945 ng/mL Barbiturate 200 ng/mL Valplqesjhiju71 ng/mL Otyzvj110 ng/mL Methadone 300 ng/mL Amphetamine/ 1000 ng/mL Methamphetamine Oxycodone 300 ng/mL This assay provides an unconfirmed qualitative test result for the clinical management of patients in emergency situations. Chain of custody not maintained. Some xqom-eyn-zqslgat medications, as well as adulterants, may cause inaccurate results. Clinical correlation should be applied. A more comprehensive drug screen or confirmation of a detected drug may be performed upon request. Performing Organization Address City/[facility] Phone Number [address] [address] CENTER HIV-1 Antigen with HIV-1/2 Antibody (06/19/2018 11:49 AM SNOWMOBILE MECHANIC) HIV-1 Antigen with HIV 1&2 NON-REACTIVE Nonreactive [facility] Specimen Blood - Arm, Left Performing Organization Address City/[facility] Phone Number [address] [address] CENTER C-Reactive Protein (06/19/2018 11:49 AM SNOWMOBILE MECHANIC) CRP 0.81 (H) 0.00 - 0.50 mg/dL [facility] Specimen Blood - Arm, Left Performing Organization Address [facility] Phone Number [address] [address] CENTER RPR (06/19/2018 11:49 AM SNOWMOBILE MECHANIC) RPR Nonreactive Nonreactive [facility] Specimen Blood - Arm, Left Performing Organization Address [facility] Phone Number [address] [phone] CENTER T4, free (06/19/2018 11:49 AM SNOWMOBILE MECHANIC) Free T4 0.89 0.70 - 1.48 ng/dL [facility] Specimen Blood - Arm, Left Performing Organization Address [facility] Phone Number [address] [address] CENTER Osmolality, serum (06/19/2018 11:49 AM SNOWMOBILE MECHANIC) Osmolality Serum 310 (H) 275 - 295 mOsm/kg [facility] Specimen Blood - Arm, Left Performing Organization Address [facility] Phone Number [address] [address] CENTER Prolactin (06/19/2018 3:49 AM SNOWMOBILE MECHANIC) Prolactin 23.34 5.18 - 26.53 ng/mL [facility] Specimen Blood Performing Organization Address [facility] Phone Number [address] [phone] CENTER Growth hormone (06/19/2018 3:49 AM SNOWMOBILE MECHANIC) Growth Hormone <0.1 < OR=7.1 ng/mL [facility] [...] Guideline. J Clin Endocrinol Metab 2014; 99: 6638-1509]. Using GH stimulation testing, the following result at any point in the timed sequence makes GH deficiency unlikely: Adults (> or=20 years): Insulin Hypoglycemia > or=5.1 ng/mL Arginine/GHRH> or=4.1 ng/mL Glucagon > or=3.0 ng/mL Children (<20 years): All Stimulation Tests> or=10.0 ng/mL Specimen Blood Narrative Performed At [facility]forming [facility] [place] [address] Sixto Rodrigez MD, PhD, ANABELL Performing Organization Address [facility] Phone Number [place] [address] [facility] [employer] Luteinizing hormone (LH) (06/19/2018 3:49 AM SNOWMOBILE MECHANIC) LH, Serum 0.2 mIU/mL basestone Comment: Adult Female Reference Ranges for LH: Follicular Phase:1.9-12.5 mIU/mL Mid-Cycle Peak:8.7-76.3 mIU/mL Luteal Phase:0.5-16.9 mIU/mL Postmenopausal: 10.0-54.7 mIU/mL Children (<18 Years Old): LH reference ranges established on post-pubertal patient population. Reference range not established for pre-pubertal patients using this assay. For pre-pubertal patients, the [employer] LH, Pediatric assay is recommended (order code 23024). Specimen Blood Narrative Performed At [facility] [address] [place] [address] Sixto Rodrigez MD, PhD, ANABELL Performing Organization Address [facility] Phone Number [place] [address] [facility] [employer] MR brain without & with IV contrast (06/19/2018 2:25 AM SNOWMOBILE MECHANIC) Narrative Performed At FINAL REPORT [facility] MRI brain with and without contrast Comparison:None. 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 Discussion: Multiplanar MR imaging of the brain and sella was provided nda-ikx-qgyc IV gadolinium administration using T1, T2, FLAIR, [...] Report Verified Date/Time: 06/19/2018 02:25:15 Reading Location: [facility] [id number] CT Body Reading Room Performing Organization Address City/State/[facility] Phone Number [facility] Hemoglobin A1c (06/19/2018 12:39 AM SNOWMOBILE MECHANIC) Hemoglobin A1C 7.9 (H) 4.3 - 6.1 % [facility] Specimen Blood Performing Organization Address City/[facility] Phone Number [address] [address] [phone] CENTER TSH/Free T4 If Indicated (06/18/2018 11:32 PM SNOWMOBILE MECHANIC) TSH 0.41 0.35 - 4.94 uIU/mL [facility] Specimen Blood Performing Organization Address [facility] Phone Number [address] [address] CENTER Urinalysis w/Microscopic + Reflex to Culture (06/18/2018 10:27 PM SNOWMOBILE MECHANIC) Color, UA Yellow [facility] Clarity, UA Clear [facility] Specific [place], UA 1.011 1.001 - 1.035 [facility] pH, UA 5.0 5.0 - 8.0 [facility] Protein, UA Negative Negative [facility] Glucose, UA >1000 mg/dL (A) Negative [facility] Ketones, UA 20 mg/dL (A) Negative [facility] Bilirubin, UA Negative Negative [facility] Blood, UA Negative Negative [facility] Nitrite, UA Negative Negative [facility] Leukocytes, UA Negative Negative [facility] Urobilinogen, UA 0.2 0.2 - 1.0 mg/dL [facility] RBC, UA <1 /HPF [facility] WBC, UA <1 /HPF [facility] Squam Epithel, UA <1 /HPF [facility] Specimen Source [facility] Specimen Urine - Urine, Clean Catch Performing Organization Address City/State/Zipcode Phone Number [facility] [address] [place] [phone] CENTER after 11/02/2017 Insurance Payer Benefit Plan / Subscriber ID Type Phone Address Group [employer]UE [employer]OSS/[employer]UE [employer] OS xxxxxxxxxxxx PPO [phone] [id number] [employer]/PP[place] [address] (Home) [address] [place] [phone] Advance Directives Patient has advance care planning documents, and code status on file. For more information, please contact:[address] [phone] Code Status Date Activated Date Inactivated Comments Full Code 06/26/2018 1:38 PM This code status was determined by: Patient Full Code 06/18/2018 8:39 PM 06/26/2018 11:54 AM This code status was determined by: Patient
--- OUTSIDE RECORDS SUMMARY | 2018-11-03 00:08 | XMS REPORT ---
:1970 Author Organization [facility] Address [address] [place] [address] Dr. Holbrook [address] [place] [address] Care Team Providers Name Role Phone DAJUAN GEORGE Unavailable Unavailable MITCHELL DOBSON Unavailable Unavailable Problems This patient has no known problems. Allergies, Adverse Reactions, Alerts This patient has no known allergies or adverse reactions. Medications This patient has no known medications. Results Test Description Test Time Test Comments Text Results Atomic Results Result Comments TISSUE EXAM 2018-06-28 08:38:00 Surgical Pathology Report Case: [id number] Authorizing Provider: Alex Ruano MD Collected: 06/24/2018801 Ordering Location: [address] Received: 06/24/2018 0809 Service Pathologist: Chon Andino MD Specimens: A) - Tumor, pituitary tumor B) - Tumor, pituitary tumor A.PITUITARY GLAND, TRANSSPHENOIDAL 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 PITUITARY GLAND, TRANSSPHENOIDAL HYPOPHYSECTOMY:NULL CELL ADENOMAENTRAPPED ADENOHYPOPHYSIS Signing Pathologist Direct Phone Line: [phone] signed by Chon Andino MD on 06/28/2018 at 8:38 AMImmunoperoxidase stains performed on the second specimen show that the tumor has no staining for growth hormone, LH, FSH, TSH, prolactin, or ACTH. 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 The MIB-1 proliferation index is less than 1%. 96838 x 2; 69898; 11416; 42663 x 6; 10856Yicpdzxdu adenoma A. Pituitary tumor; B. Pituitary tumorA. [...] stains. Immunohistochemistry technical testing was performed at [facility], Pathology Laboratory where it was developed and [...] (BEAKER) (test 141 mg/dL 70-110 TESTED AT [facility] [address] [place] [address] hsxu=9909) [facility] [address] POCT-GLUCOSE [id number] 12:06:00 Test Item Value Reference Range Comments POC-GLUCOSE METER (BEAKER) 217 mg/dL 70-110 TESTED AT [address] (test mpnt=3677) [facility] [address] BASIC METABOLIC [id number] 07:18:00 Test Item Value Reference Range Comments SODIUM (BEAKER) (test 139 meq/L 136-145 lreq=623) POTASSIUM (BEAKER) (test 4.1 meq/L 3.5-5.1 swmy=974) CHLORIDE (BEAKER) (test 105 meq/L 98-107 wwzi=603) CO2 (BEAKER) (test 28 meq/L 22-29 eflx=203) BLOOD UREA NITROGEN 11 mg/dL 7-21 (BEAKER) (test fctz=655) CREATININE (BEAKER) (test 0.69 mg/dL 0.57-1.25 jddp=107) GLUCOSE RANDOM (BEAKER) 163 mg/dL 70-105 (test dozw=823) CALCIUM (BEAKER) (test 8.6 mg/dL 8.4-10.2 bmnh=788) EGFR (BEAKER) (test 91 mL/min/1.73 sq m ESTIMATED GFR IS NOT paxk=2182) ACCURATE CREATININE CLEARANCE IN PREDICTING GLOMERULAR FILTRATION RATE. ESTIMATED GFR IS NOT APPLICABLE FOR DIALYSIS PATIENTS. CBC W/PLT COUNT & AUTO [id number] 06:49:00 Test Item Value Reference Range Comments WHITE BLOOD CELL COUNT (BEAKER) (test hbwu=835) 8.7 K/ L 3.5-10.5 RED BLOOD CELL COUNT (BEAKER) (test nbhe=777) 4.82 M/ L 3.93-5.22 HEMOGLOBIN (BEAKER) (test fmys=956) 13.2 GM/DL 11.2-15.7 HEMATOCRIT (BEAKER) (test mkkb=095) 40.8 % 34.1-44.9 MEAN CORPUSCULAR VOLUME (BEAKER) (test dgyy=300) 84.6 fL 79.4-94.8 MEAN CORPUSCULAR HEMOGLOBIN (BEAKER) (test 27.4 pg 25.6-32.2 srdg=723) MEAN CORPUSCULAR HEMOGLOBIN CONC (BEAKER) (test 32.4 GM/DL 32.2-35.5 zuti=228) RED CELL DISTRIBUTION WIDTH (BEAKER) (test 13.2 % 11.7-14.4 zddv=695) PLATELET COUNT (BEAKER) (test uoil=237) 233 K/CU MM 150-450 MEAN PLATELET VOLUME (BEAKER) (test bbvq=962) 11.5 fL 9.4-12.3 NUCLEATED RED BLOOD CELLS (BEAKER) (test 0 /100 WBC 0-0 xnol=980) NEUTROPHILS RELATIVE PERCENT (BEAKER) (test 65 % aowu=702) LYMPHOCYTES RELATIVE PERCENT (BEAKER) (test 24 % kyum=890) MONOCYTES RELATIVE PERCENT (BEAKER) (test 8 % avgg=576) EOSINOPHILS RELATIVE PERCENT (BEAKER) (test 2 % fnyz=330) BASOPHILS RELATIVE PERCENT (BEAKER) (test 0 % lwjq=662) NEUTROPHILS ABSOLUTE COUNT (BEAKER) (test 5.65 K/ L 1.56-6.13 aswq=979) LYMPHOCYTES ABSOLUTE COUNT (BEAKER) (test 2.07 K/ L 1.18-3.74 ecmu=289) MONOCYTES ABSOLUTE COUNT (BEAKER) (test 0.70 K/ L 0.24-0.36 fxzz=426) EOSINOPHILS ABSOLUTE COUNT (BEAKER) (test 0.16 K/ L 0.04-0.36 wfoi=783) BASOPHILS ABSOLUTE COUNT (BEAKER) (test 0.02 K/ L 0.01-0.08 tgnc=792) IMMATURE GRANULOCYTES-RELATIVE PERCENT (BEAKER) 1 % 0-1 (test shdv=6816) BASIC METABOLIC [id number] 23:52:00 Test Item Value Reference Range Comments SODIUM (BEAKER) (test 139 meq/L 136-145 rdxm=133) POTASSIUM (BEAKER) (test 4.0 meq/L 3.5-5.1 Specimen slightly sohv=541) hemolyzed CHLORIDE (BEAKER) (test 103 meq/L 98-107 fzgo=773) CO2 (BEAKER) (test 28 meq/L 22-29 oaky=474) BLOOD UREA NITROGEN 12 mg/dL 7-21 (BEAKER) (test hshm=652) CREATININE (BEAKER) (test 0.72 mg/dL 0.57-1.25 Specimen slightly nobc=618) hemolyzed GLUCOSE RANDOM (BEAKER) 193 mg/dL 70-105 (test rdus=558) CALCIUM (BEAKER) (test 8.6 mg/dL 8.4-10.2 sjle=186) EGFR (BEAKER) (test 86 mL/min/1.73 sq m ESTIMATED GFR IS NOT ciob=1786) ACCURATE CREATININE CLEARANCE IN PREDICTING GLOMERULAR FILTRATION RATE. ESTIMATED GFR IS NOT APPLICABLE FOR DIALYSIS PATIENTS. SODIUM, RANDOM [id number] 23:49:00 Test Item Value Reference Range Comments SODIUM URINE (BEAKER) (test aahd=410) < meq/L Reference Range: No NormalsCBC W/PLT COUNT & AUTO [id number] 23: 35:00 Test Item Value Reference Range Comments WHITE BLOOD CELL COUNT (BEAKER) (test dzbu=177) 9.7 K/ L 3.5-10.5 RED BLOOD CELL COUNT (BEAKER) (test bzcv=318) 4.46 M/ L 3.93-5.22 HEMOGLOBIN (BEAKER) (test rmie=292) 12.2 GM/DL 11.2-15.7 HEMATOCRIT (BEAKER) (test vcfn=366) 37.8 % 34.1-44.9 MEAN CORPUSCULAR VOLUME (BEAKER) (test qaou=708) 84.8 fL 79.4-94.8 MEAN CORPUSCULAR HEMOGLOBIN (BEAKER) (test 27.4 pg 25.6-32.2 czug=851) MEAN CORPUSCULAR HEMOGLOBIN CONC (BEAKER) (test 32.3 GM/DL 32.2-35.5 eupl=460) RED CELL DISTRIBUTION WIDTH (BEAKER) (test 13.0 % 11.7-14.4 wlxa=193) PLATELET COUNT (BEAKER) (test cgsf=653) 210 K/CU MM 150-450 MEAN PLATELET VOLUME (BEAKER) (test zfwx=633) 11.4 fL 9.4-12.3 NUCLEATED RED BLOOD CELLS (BEAKER) (test 0 /100 WBC 0-0 erzn=833) NEUTROPHILS RELATIVE PERCENT (BEAKER) (test 61 % onqa=236) LYMPHOCYTES RELATIVE PERCENT (BEAKER) (test 28 % gsko=900) MONOCYTES RELATIVE PERCENT (BEAKER) (test 8 % pjfl=792) EOSINOPHILS RELATIVE PERCENT (BEAKER) (test 2 % pqtd=729) BASOPHILS RELATIVE PERCENT (BEAKER) (test 0 % dhit=527) NEUTROPHILS ABSOLUTE COUNT (BEAKER) (test 5.87 K/ L 1.56-6.13 orqk=309) LYMPHOCYTES ABSOLUTE COUNT (BEAKER) (test 2.72 K/ L 1.18-3.74 ehxc=962) MONOCYTES ABSOLUTE COUNT (BEAKER) (test 0.80 K/ L 0.24-0.36 jcbe=873) EOSINOPHILS ABSOLUTE COUNT (BEAKER) (test 0.22 K/ L 0.04-0.36 zndc=751) BASOPHILS ABSOLUTE COUNT (BEAKER) (test 0.03 K/ L 0.01-0.08 bbnh=495) IMMATURE GRANULOCYTES-RELATIVE PERCENT (BEAKER) 1 % 0-1 (test kvfq=5125) CT, BRAIN, WITHOUT [id number] 22:57:00FINAL REPORT CT Head without contrast CLINICAL [...] Gamboa Verified Date/Time: 06/26/2018 22:57:28 [address] POCT-GLUCOSE [id number] 21:07:00 Test Item Value Reference Range Comments POC-GLUCOSE METER (BEAKER) 211 mg/dL 70-110 TESTED AT [address] (test illb=5086) [facility] [address] BASIC METABOLIC [id number] 14:29:00 Test Item Value Reference Range Comments SODIUM (BEAKER) (test 137 meq/L 136-145 iylp=631) POTASSIUM (BEAKER) (test 3.6 meq/L 3.5-5.1 ucde=719) CHLORIDE (BEAKER) (test 100 meq/L 98-107 qwdq=177) CO2 (BEAKER) (test 32 meq/L 22-29 cmjg=230) BLOOD UREA NITROGEN 12 mg/dL 7-21 (BEAKER) (test dwtr=974) CREATININE (BEAKER) (test 0.71 mg/dL 0.57-1.25 hqrj=091) GLUCOSE RANDOM (BEAKER) 182 mg/dL 70-105 (test lqrm=023) CALCIUM (BEAKER) (test 8.7 mg/dL 8.4-10.2 hewt=843) EGFR (BEAKER) (test 88 mL/min/1.73 sq m ESTIMATED GFR IS NOT uzno=5799) ACCURATE CREATININE CLEARANCE IN PREDICTING GLOMERULAR FILTRATION RATE. ESTIMATED GFR IS NOT APPLICABLE FOR DIALYSIS PATIENTS. CBC W/PLT COUNT & AUTO [id number] 14:25:00 Test Item Value Reference Range Comments WHITE BLOOD CELL COUNT (BEAKER) (test xcgl=200) 12.3 K/ L 3.5-10.5 RED BLOOD CELL COUNT (BEAKER) (test kiwh=111) 4.76 M/ L 3.93-5.22 HEMOGLOBIN (BEAKER) (test xitn=760) 13.1 GM/DL 11.2-15.7 HEMATOCRIT (BEAKER) (test vqzf=887) 40.6 % 34.1-44.9 MEAN CORPUSCULAR VOLUME (BEAKER) (test exov=983) 85.3 fL 79.4-94.8 MEAN CORPUSCULAR HEMOGLOBIN (BEAKER) (test 27.5 pg 25.6-32.2 osyl=378) MEAN CORPUSCULAR HEMOGLOBIN CONC (BEAKER) (test 32.3 GM/DL 32.2-35.5 edtw=043) RED CELL DISTRIBUTION WIDTH (BEAKER) (test 13.1 % 11.7-14.4 iscz=545) PLATELET COUNT (BEAKER) (test ufrf=671) 254 K/CU MM 150-450 MEAN PLATELET VOLUME (BEAKER) (test ureo=673) 11.1 fL 9.4-12.3 NUCLEATED RED BLOOD CELLS (BEAKER) (test 0 /100 WBC 0-0 cfme=950) NEUTROPHILS RELATIVE PERCENT (BEAKER) (test 68 % yjzc=830) LYMPHOCYTES RELATIVE PERCENT (BEAKER) (test 24 % euxb=102) MONOCYTES RELATIVE PERCENT (BEAKER) (test 6 % fqph=885) EOSINOPHILS RELATIVE PERCENT (BEAKER) (test 1 % dtwm=353) BASOPHILS RELATIVE PERCENT (BEAKER) (test 0 % qobv=917) NEUTROPHILS ABSOLUTE COUNT (BEAKER) (test 8.42 K/ L 1.56-6.13 inpi=435) LYMPHOCYTES ABSOLUTE COUNT (BEAKER) (test 2.90 K/ L 1.18-3.74 zziq=238) MONOCYTES ABSOLUTE COUNT (BEAKER) (test 0.79 K/ L 0.24-0.36 anfu=833) EOSINOPHILS ABSOLUTE COUNT (BEAKER) (test 0.07 K/ L 0.04-0.36 oecr=076) BASOPHILS ABSOLUTE COUNT (BEAKER) (test 0.05 K/ L 0.01-0.08 mbeu=229) IMMATURE GRANULOCYTES-RELATIVE PERCENT (BEAKER) 1 % 0-1 (test bjjo=7957) POCT-GLUCOSE [id number] 13:38:00 Test Item Value Reference Range Comments POC-GLUCOSE METER (BEAKER) 219 mg/dL 70-110 TESTED AT [address] (test zsvl=1259) [place] [id number] POCT-GLUCOSE [id number] 12:34:00 Test Item Value Reference Range Comments POC-GLUCOSE METER (BEAKER) 193 mg/dL 70-110 TESTED AT [address] (test grhp=3466) [place] [address] POCT-GLUCOSE [id number] 16:17:00 Test Item Value Reference Range Comments POC-GLUCOSE METER (BEAKER) 244 mg/dL 70-110 TESTED AT [address] (test kaqx=5604) [place] [address] POCT-GLUCOSE [id number] 12:08:00 Test Item Value Reference Range Comments POC-GLUCOSE METER (BEAKER) 229 mg/dL 70-110 TESTED AT [address] (test vzix=5969) [place] [address] POCT-GLUCOSE [id number] 08:27:00 Test Item Value Reference Range Comments POC-GLUCOSE METER (BEAKER) 280 mg/dL 70-110 TESTED AT [address] (test mcmm=0062) [facility] [address] OSMOLALITY, [id number] 05:16:00 Test Item Value Reference Range Comments OSMOLALITY URINE (BEAKER) (test hpld=553) 340 mOsm/kg 40-1,400 SPECIFIC GRAVITY, [id number] 04:53:00 Test Item Value Reference Range Comments SPECIFIC GRAVITY UA (BEAKER) (test opti=213) 1.010 1.001-1.035 POCT-GLUCOSE [id number] 22:29:00 Test Item Value Reference Range Comments POC-GLUCOSE METER (BEAKER) 257 mg/dL 70-110 TESTED AT [address] (test ynta=5939) [place] [address] BASIC METABOLIC [id number] 17:49:00 Test Item Value Reference Range Comments SODIUM (BEAKER) (test 137 meq/L 136-145 qzvb=238) POTASSIUM (BEAKER) (test 4.6 meq/L 3.5-5.1 tpyd=012) CHLORIDE (BEAKER) (test 102 meq/L 98-107 ywqa=265) CO2 (BEAKER) (test 26 meq/L 22-29 qmde=692) BLOOD UREA NITROGEN 14 mg/dL 7-21 (BEAKER) (test xhhs=523) CREATININE (BEAKER) (test 0.78 mg/dL 0.57-1.25 wcdy=585) GLUCOSE RANDOM (BEAKER) 246 mg/dL 70-105 (test qmwa=936) CALCIUM (BEAKER) (test 8.7 mg/dL 8.4-10.2 ughl=418) EGFR (BEAKER) (test 79 mL/min/1.73 sq m ESTIMATED GFR IS NOT dvhb=9078) ACCURATE CREATININE CLEARANCE IN PREDICTING GLOMERULAR FILTRATION RATE. ESTIMATED GFR IS NOT APPLICABLE FOR DIALYSIS PATIENTS. POCT-GLUCOSE [id number] 17:02:00 Test Item Value Reference Range Comments POC-GLUCOSE METER (BEAKER) 235 mg/dL 70-110 TESTED AT [address] (test sxiq=1913) [place] [address] POCT-GLUCOSE [id number] 12:06:00 Test Item Value Reference Range Comments POC-GLUCOSE METER (BEAKER) 249 mg/dL 70-110 TESTED AT [address] (test vrzn=1174) [place] [address] POCT-GLUCOSE [id number] 09:40:00 Test Item Value Reference Range Comments POC-GLUCOSE METER (BEAKER) 278 mg/dL 70-110 TESTED AT [address] (test mhju=0250) [place] [address] BASIC METABOLIC [id number] 06:14:00 Test Item Value Reference Range Comments SODIUM (BEAKER) (test 141 meq/L 136-145 xnvj=672) POTASSIUM (BEAKER) (test 4.1 meq/L 3.5-5.1 nolz=809) CHLORIDE (BEAKER) (test 104 meq/L 98-107 detg=662) CO2 (BEAKER) (test 30 meq/L 22-29 tjyt=054) BLOOD UREA NITROGEN 14 mg/dL 7-21 (BEAKER) (test kztr=520) CREATININE (BEAKER) (test 0.70 mg/dL 0.57-1.25 coqv=756) GLUCOSE RANDOM (BEAKER) 146 mg/dL 70-105 (test kqmp=442) CALCIUM (BEAKER) (test 9.4 mg/dL 8.4-10.2 btxq=904) EGFR (BEAKER) (test 89 mL/min/1.73 sq m ESTIMATED GFR IS NOT sqdp=7568) ACCURATE CREATININE CLEARANCE IN PREDICTING GLOMERULAR FILTRATION RATE. ESTIMATED GFR IS NOT APPLICABLE FOR DIALYSIS PATIENTS. [id number] 06:03:00 Test Item Value Reference Range Comments PROTIME (BEAKER) (test jxyc=502) 13.8 seconds 11.7-14.7 INR (BEAKER) (test ruiu=973) 1.1 <=5.9 PARTIAL THROMBOPLASTIN TIME (BEAKER) (test 32.0 seconds 22.5-36.0 xqqe=423) RECOMMENDED COUMADIN/WARFARIN INR THERAPY RANGESSTANDARD DOSE: 2.0 - 3.0 Includes: PROPHYLAXIS forvenous thrombosis, systemic embolization; TREATMENT for venous thrombosis and/or pulmonary embolus.HIGH RISK: Target INR is 2.5-3.5 for patients with mechanical heart valves. SCREEN, [id number] 05: 59:00 Test Item Value Reference Range Comments TEST URINE (BEAKER) (test zlur=425) Negative POCT-GLUCOSE [id number] 05:46:00 Test Item Value Reference Range Comments POC-GLUCOSE METER (BEAKER) 140 mg/dL 70-110 TESTED AT [facility] [address] [facility] (test uymd=9568) [facility] [address] CBC W/PLT COUNT & AUTO [id number] 05:46:00 Test Item Value Reference Range Comments WHITE BLOOD CELL COUNT (BEAKER) (test fiie=102) 9.6 K/ L 3.5-10.5 RED BLOOD CELL COUNT (BEAKER) (test qkwk=441) 5.00 M/ L 3.93-5.22 HEMOGLOBIN (BEAKER) (test juue=132) 14.0 GM/DL 11.2-15.7 HEMATOCRIT (BEAKER) (test mdog=565) 42.1 % 34.1-44.9 MEAN CORPUSCULAR VOLUME (BEAKER) (test yuex=189) 84.2 fL 79.4-94.8 MEAN CORPUSCULAR HEMOGLOBIN (BEAKER) (test 28.0 pg 25.6-32.2 nkwf=934) MEAN CORPUSCULAR HEMOGLOBIN CONC (BEAKER) (test 33.3 GM/DL 32.2-35.5 rtro=824) RED CELL DISTRIBUTION WIDTH (BEAKER) (test 13.0 % 11.7-14.4 dhgc=154) PLATELET COUNT (BEAKER) (test wqkt=114) 227 K/CU MM 150-450 MEAN PLATELET VOLUME (BEAKER) (test pitz=688) 11.8 fL 9.4-12.3 NUCLEATED RED BLOOD CELLS (BEAKER) (test 0 /100 WBC 0-0 sjga=593) NEUTROPHILS RELATIVE PERCENT (BEAKER) (test 52 % ylfy=845) LYMPHOCYTES RELATIVE PERCENT (BEAKER) (test 38 % jkkv=576) MONOCYTES RELATIVE PERCENT (BEAKER) (test 6 % mgqk=712) EOSINOPHILS RELATIVE PERCENT (BEAKER) (test 3 % kwzs=330) BASOPHILS RELATIVE PERCENT (BEAKER) (test 1 % rqpd=210) NEUTROPHILS ABSOLUTE COUNT (BEAKER) (test 5.03 K/ L 1.56-6.13 oirk=322) LYMPHOCYTES ABSOLUTE COUNT (BEAKER) (test 3.62 K/ L 1.18-3.74 xxfj=030) MONOCYTES ABSOLUTE COUNT (BEAKER) (test 0.62 K/ L 0.24-0.36 kflk=064) EOSINOPHILS ABSOLUTE COUNT (BEAKER) (test 0.27 K/ L 0.04-0.36 zrbt=223) BASOPHILS ABSOLUTE COUNT (BEAKER) (test 0.05 K/ L 0.01-0.08 esfi=061) IMMATURE GRANULOCYTES-RELATIVE PERCENT (BEAKER) 1 % 0-1 (test inek=7538) POCT-GLUCOSE [id number] 21:27:00 Test Item Value Reference Range Comments POC-GLUCOSE METER (BEAKER) 223 mg/dL 70-110 TESTED AT [address] (test oiae=4588) [place] [id number] POCT-GLUCOSE [id number] 17:26:00 Test Item Value Reference Range Comments POC-GLUCOSE METER (BEAKER) 223 mg/dL 70-110 TESTED AT [address] (test rirn=8599) [place] [address] BASIC METABOLIC [id number] 16:43:00 Test Item Value Reference Range Comments SODIUM (BEAKER) (test 139 meq/L 136-145 rixm=197) POTASSIUM (BEAKER) (test 4.5 meq/L 3.5-5.1 Specimen slightly ypde=644) hemolyzed CHLORIDE (BEAKER) (test 102 meq/L 98-107 tcaq=350) CO2 (BEAKER) (test 29 meq/L 22-29 vvgc=000) BLOOD UREA NITROGEN 16 mg/dL 7-21 (BEAKER) (test kiar=488) CREATININE (BEAKER) (test 0.76 mg/dL 0.57-1.25 Specimen slightly uxbg=440) hemolyzed GLUCOSE RANDOM (BEAKER) 217 mg/dL 70-105 (test lyly=139) CALCIUM (BEAKER) (test 9.6 mg/dL 8.4-10.2 bibi=228) EGFR (BEAKER) (test 81 mL/min/1.73 sq m ESTIMATED GFR IS NOT atkm=7403) ACCURATE CREATININE CLEARANCE IN PREDICTING GLOMERULAR FILTRATION RATE. ESTIMATED GFR IS NOT APPLICABLE FOR DIALYSIS PATIENTS. POCT-GLUCOSE [id number] 09:06:00 Test Item Value Reference Range Comments POC-GLUCOSE METER (BEAKER) 265 mg/dL 70-110 TESTED AT [address] (test itaq=9609) [place] [address] POCT-GLUCOSE [id number] 00:22:00 Test Item Value Reference Range Comments POC-GLUCOSE METER (BEAKER) 210 mg/dL 70-110 TESTED AT [address] (test dwqz=9042) [place] [address] POCT-GLUCOSE [id number] 20:27:00 Test Item Value Reference Range Comments POC-GLUCOSE METER (BEAKER) 235 mg/dL 70-110 TESTED AT [address] (test lelj=8010) [place] [address] POCT-GLUCOSE [id number] 17:10:00 Test Item Value Reference Range Comments POC-GLUCOSE METER (BEAKER) 264 mg/dL 70-110 TESTED AT [address] (test oqcr=9174) [place] [address] POCT-GLUCOSE [id number] 16:00:00 Test Item Value Reference Range Comments POC-GLUCOSE METER (BEAKER) 242 mg/dL 70-110 TESTED AT [address] (test ylsy=2856) [place] [address] POCT-GLUCOSE [id number] 08:54:00 Test Item Value Reference Range Comments POC-GLUCOSE METER (BEAKER) 224 mg/dL 70-110 TESTED AT [address] (test sbyh=5912) [place] [address] POCT-GLUCOSE [id number] 21:30:00 Test Item Value Reference Range Comments POC-GLUCOSE METER (BEAKER) 254 mg/dL 70-110 TESTED AT [address] (test pyqe=1357) [place] [address] POCT-GLUCOSE [id number] 17:23:00 Test Item Value Reference Range Comments POC-GLUCOSE METER (BEAKER) 193 mg/dL 70-110 TESTED AT [address] (test kptj=8294) [place] [address] POCT-GLUCOSE [id number] 11:53:00 Test Item Value Reference Range Comments POC-GLUCOSE METER (BEAKER) 179 mg/dL 70-110 TESTED AT [address] (test hyme=0969) [place] [address] [id number] 10:15:00 Test Item Value Reference Range Comments CORTISOL, TOTAL (BEAKER) (test xshr=3212) 4.7 ug/dL 3.7-19.4 POCT-GLUCOSE [id number] 08:07:00 Test Item Value Reference Range Comments POC-GLUCOSE METER (BEAKER) 184 mg/dL 70-110 TESTED AT [address] (test tygw=2375) [place] [address] CT, BRAIN, WITHOUT [id number] 22:07:00FINAL REPORT CT Head without contrast CLINICAL [...] [place] Verified Date/Time: 06/20/2018 22:07:25 Reading Location: [address] Transitional Reading Room POCT-GLUCOSE [id number] 21:00:00 Test Item Value Reference Range Comments POC-GLUCOSE METER (BEAKER) 227 mg/dL 70-110 TESTED AT [address] (test qerz=3466) [place] [address] POCT-GLUCOSE [id number] 16:57:00 Test Item Value Reference Range Comments POC-GLUCOSE METER (BEAKER) 216 mg/dL 70-110 TESTED AT [address] (test vage=4107) [place] [address] POCT-GLUCOSE [id number] 13:11:00 Test Item Value Reference Range Comments POC-GLUCOSE METER (BEAKER) 198 mg/dL 70-110 TESTED AT [address] (test bpqf=7457) [place] [id number] POCT-GLUCOSE [id number] 07:47:00 Test Item Value Reference Range Comments POC-GLUCOSE METER (BEAKER) 213 mg/dL 70-110 TESTED AT [address] (test eaix=3905) [place] [address] BASIC METABOLIC [id number] 06:57:00 Test Item Value Reference Range Comments SODIUM (BEAKER) (test 138 meq/L 136-145 uiyu=181) POTASSIUM (BEAKER) (test 3.9 meq/L 3.5-5.1 ucla=487) CHLORIDE (BEAKER) (test 105 meq/L 98-107 fkst=178) CO2 (BEAKER) (test 24 meq/L 22-29 taza=316) BLOOD UREA NITROGEN 12 mg/dL 7-21 (BEAKER) (test vycc=731) CREATININE (BEAKER) (test 0.73 mg/dL 0.57-1.25 onzm=749) GLUCOSE RANDOM (BEAKER) 192 mg/dL 70-105 (test cawv=163) CALCIUM (BEAKER) (test 8.8 mg/dL 8.4-10.2 nizy=800) EGFR (BEAKER) (test 85 mL/min/1.73 sq m ESTIMATED GFR IS NOT rjkp=5023) ACCURATE CREATININE CLEARANCE IN PREDICTING GLOMERULAR FILTRATION RATE. ESTIMATED GFR IS NOT APPLICABLE FOR DIALYSIS PATIENTS. POCT-GLUCOSE [id number] 05:24:00 Test Item Value Reference Range Comments POC-GLUCOSE METER (BEAKER) 192 mg/dL 70-110 TESTED AT [facility] [address] [facility] (test uska=9859) [facility] [address] [address], [place] [id number] 01:03:00FINAL REPORT CLINICAL HISTORY: Stroke TECHNIQUE: Initially, [...] Verified Date/ Time: 06/20/2018 01:03:44 Reading Location: [address] Transitional Reading Room [facility], [place], [id number] 01:03:00FINAL REPORT CLINICAL HISTORY: Stroke TECHNIQUE: Initially, [...] Verified Date/ Time: 06/20/2018 01:03:44 Reading Location: [address] Reading Room POCT-GLUCOSE [id number] 00:40:00 Test Item Value Reference Range Comments POC-GLUCOSE METER (BEAKER) 283 mg/dL 70-110 TESTED AT [address] (test dywt=3856) [facility] [address] POCT-GLUCOSE [id number] 21:21:00 Test Item Value Reference Range Comments POC-GLUCOSE METER (BEAKER) 343 mg/dL 70-110 TESTED AT [address] (test fuwr=7149) [facility] [address] SCREEN, [id number] 18:52:00 Test Item Value Reference Range Comments TEST URINE (BEAKER) (test tymf=992) Negative POCT-GLUCOSE [id number] 17:17:00 Test Item Value Reference Range Comments POC-GLUCOSE METER (BEAKER) 287 mg/dL 70-110 TESTED AT [facility] [address] [facility] (test ockq=1218) [facility] [address] [id number] 15:59:00 Test Item Value Reference Range Comments RPR SCREEN (BEAKER) (test zgbu=863) Nonreactive Nonreactive POCT-GLUCOSE [id number] 15:07:00 Test Item Value Reference Range Comments POC-GLUCOSE METER (BEAKER) 323 mg/dL 70-110 TESTED AT [address] (test dnpx=2456) [place] [id number] T4, [id number] 13:11:00 Test Item Value Reference Range Comments FREE T4 (BEAKER) (test zrph=345) 0.89 ng/dL 0.70-1.48 HIV-1 ANTIGEN WITH HIV-1/2 [id number] 13:11:00 Test Item Value Reference Range Comments HIV-1 ANTIGEN WITH HIV 1\\T\\2 ANTIBODY (2) Nonreactive Nonreactive (BEAKER) (test xqda=8880) RAPID DRUG SCREEN, [id number] 12:47:00 Test Item Value Reference Range Comments BARBITURATE URINE (BEAKER) (test blgz=266) Negative Negative BENZODIAZEPINE SCREEN URINE (BEAKER) (test Negative Negative inbi=267) COCAINE (METAB.) SCREEN (BEAKER) (test gwib=5483) Negative Negative METHADONE SCREEN (BEAKER) (test hkbe=6996) Negative Negative OPIATE SCREEN URINE (BEAKER) (test erwu=253) Negative Negative CANNABINOID SCREEN URINE (BEAKER) (test iulj=323) Negative Negative AMPH/METHAMPH SCREEN (BEAKER) (test nwrd=5657) Negative Negative PHENCYCLIDINE SCREEN URINE (BEAKER) (test trkk=771) Negative Negative OXYCODONE SCREEN URINE (BEAKER) (test kfnx=9699) Negative Negative DRUG CUTOFF CONC.Cocaine 300 ng/mL Cannabinoid 50 ng/mL Benzodiazepine 200 ng/mLBarbiturate 200 ng/ mLPhencyclidine 25 ng/mLOpiate 300 ng/mLMethadone 300 ng/mLAmphetamine/ 1000 ng/mL MethamphetamineOxycodone 300 ng/mLThis assay provides an unconfirmed qualitative test result for the clinical management of patients in emergency situations. Chain of custody not maintained. Some vtiz-sna-teucouk medications, as well as adulterants, may cause inaccurate results. Clinical correlation should be applied. A more comprehensive drug screen or confirmation of a detected drug may be performed upon request.POCT-GLUCOSE [id number] 12:37:00 Test Item Value Reference Range Comments POC-GLUCOSE METER (BEAKER) 292 mg/dL 70-110 TESTED AT [facility] [address] [facility] (test ysfv=5570) [facility] [address] HEMOGLOBIN [id number] 12:35:00 Test Item Value Reference Range Comments HEMOGLOBIN A1C (BEAKER) (test ptch=322) 7.9 % 4.3-6.1 OSMOLALITY, [id number] 12:34:00 Test Item Value Reference Range Comments OSMOLALITY, SERUM (BEAKER) (test tmsl=348) 310 mOsm/kg 275-295 C-REACTIVE [id number] 12:28:00 Test Item Value Reference Range Comments C-REACTIVE PROTEIN (BEAKER) (test zeew=087) 0.81 mg/dL 0.00-0.50 OSMOLALITY, [id number] 12:22:00 Test Item Value Reference Range Comments OSMOLALITY URINE (BEAKER) (test irax=449) 247 mOsm/kg 40-1,400 CBC W/PLT COUNT & AUTO [id number] 12:14:00 Test Item Value Reference Range Comments WHITE BLOOD CELL COUNT (BEAKER) (test rcph=093) 15.1 K/ L 3.5-10.5 RED BLOOD CELL COUNT (BEAKER) (test gqen=818) 5.15 M/ L 3.93-5.22 HEMOGLOBIN (BEAKER) (test mguy=927) 14.1 GM/DL 11.2-15.7 HEMATOCRIT (BEAKER) (test wivr=346) 42.3 % 34.1-44.9 MEAN CORPUSCULAR VOLUME (BEAKER) (test rhtl=290) 82.1 fL 79.4-94.8 MEAN CORPUSCULAR HEMOGLOBIN (BEAKER) (test 27.4 pg 25.6-32.2 omwd=859) MEAN CORPUSCULAR HEMOGLOBIN CONC (BEAKER) (test 33.3 GM/DL 32.2-35.5 cnsg=407) RED CELL DISTRIBUTION WIDTH (BEAKER) (test 12.9 % 11.7-14.4 ppfr=845) PLATELET COUNT (BEAKER) (test qqhp=026) 278 K/CU MM 150-450 MEAN PLATELET VOLUME (BEAKER) (test gmmb=538) 11.5 fL 9.4-12.3 NUCLEATED RED BLOOD CELLS (BEAKER) (test 0 /100 WBC 0-0 kbct=215) NEUTROPHILS RELATIVE PERCENT (BEAKER) (test 87 % iwam=158) LYMPHOCYTES RELATIVE PERCENT (BEAKER) (test 10 % hwuj=817) MONOCYTES RELATIVE PERCENT (BEAKER) (test 3 % twum=520) EOSINOPHILS RELATIVE PERCENT (BEAKER) (test 0 % oagm=557) BASOPHILS RELATIVE PERCENT (BEAKER) (test 0 % mysn=226) NEUTROPHILS ABSOLUTE COUNT (BEAKER) (test 13.06 K/ L 1.56-6.13 qimz=502) LYMPHOCYTES ABSOLUTE COUNT (BEAKER) (test 1.51 K/ L 1.18-3.74 cmne=989) MONOCYTES ABSOLUTE COUNT (BEAKER) (test 0.38 K/ L 0.24-0.36 jtco=785) EOSINOPHILS ABSOLUTE COUNT (BEAKER) (test 0.00 K/ L 0.04-0.36 iqgp=039) BASOPHILS ABSOLUTE COUNT (BEAKER) (test 0.02 K/ L 0.01-0.08 xhwi=491) IMMATURE GRANULOCYTES-RELATIVE PERCENT (BEAKER) 1 % 0-1 (test vglk=5976) POCT-GLUCOSE [id number] 10:30:00 Test Item Value Reference Range Comments POC-GLUCOSE METER (BEAKER) 341 mg/dL 70-110 TESTED AT [address] (test zetg=0216) [facility] [address] [id number] 06:17:00 Test Item Value Reference Range Comments PROLACTIN (BEAKER) (test evms=836) 23.34 ng/mL 5.18-26.53 POCT-GLUCOSE [id number] 05:55:00 Test Item Value Reference Range Comments POC-GLUCOSE METER (BEAKER) 285 mg/dL 70-110 TESTED AT [address] (test lnfx=7730) [facility] [id number] MR, BRAIN, [id number] 02:25:00Pituitary protocolCr 0.6FINAL REPORT MRI brain with and without contrast Comparison: None. 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 Discussion: Multiplanar MR imaging of the brain and sella was provided [id number]-dyd-bvdi IV gadolinium administration using T1, T2, FLAIR, [...] MDReport Verified Date/Time: 06/19/2018 02:25:15 Reading Location: [address] Body Reading Room TSH/FREE T4 IF [id number] 00:26:00 Test Item Value Reference Range Comments THYROID STIMULATING HORMONE (BEAKER) (test 0.41 uIU/mL 0.35-4.94 wfyo=654) BASIC METABOLIC [id number] 00:07:00 Test Item Value Reference Range Comments SODIUM (BEAKER) (test 136 meq/L 136-145 donj=619) POTASSIUM (BEAKER) (test 4.0 meq/L 3.5-5.1 ytos=147) CHLORIDE (BEAKER) (test 103 meq/L 98-107 gazy=532) CO2 (BEAKER) (test 20 meq/L 22-29 vwzk=414) BLOOD UREA NITROGEN 11 mg/dL 7-21 (BEAKER) (test jbmp=491) CREATININE (BEAKER) (test 0.84 mg/dL 0.57-1.25 tgap=663) GLUCOSE RANDOM (BEAKER) 357 mg/dL 70-105 (test uanu=118) CALCIUM (BEAKER) (test 9.0 mg/dL 8.4-10.2 eama=369) EGFR (BEAKER) (test 72 mL/min/1.73 sq m ESTIMATED GFR IS NOT mhsl=1443) ACCURATE CREATININE CLEARANCE IN PREDICTING GLOMERULAR FILTRATION RATE. ESTIMATED GFR IS NOT APPLICABLE FOR DIALYSIS PATIENTS. URINALYSIS W/ REFLEX URINE [id number] 23:13:00 Test Item Value Reference Range Comments COLOR (BEAKER) (test cvsk=426) Yellow CLARITY (BEAKER) (test kpye=667) Clear SPECIFIC GRAVITY UA (BEAKER) (test czjn=644) 1.011 1.001-1.035 PH UA (BEAKER) (test hdll=712) 5.0 5.0-8.0 PROTEIN UA (BEAKER) (test rjtj=757) Negative Negative GLUCOSE UA (BEAKER) (test qtpz=397) >1000 mg/dL Negative KETONES UA (BEAKER) (test wlpm=331) 20 mg/dL Negative BILIRUBIN UA (BEAKER) (test ejaq=522) Negative Negative BLOOD UA (BEAKER) (test dosf=257) Negative Negative NITRITE UA (BEAKER) (test rwoi=904) Negative Negative LEUKOCYTE ESTERASE UA (BEAKER) (test cgof=111) Negative Negative UROBILINOGEN UA (BEAKER) (test merj=861) 0.2 mg/dL 0.2-1.0 RBC UA (BEAKER) (test gsmv=891) < /HPF WBC UA (BEAKER) (test kztn=642) < /HPF SQUAMOUS EPITHELIAL (BEAKER) (test fzbr=103) < /HPF SOURCE(BEAKER) (test ojrz=2417)
--- OUTSIDE RECORDS SUMMARY | 2018-11-03 00:08 | XMS REPORT ---
[...] Status Dosage System Date Date Atorvastatin Calcium [facility] 27490342619 10 MG Oral Active TAKE 1 TABLET BY MOUTH AT BEDTIME. ProAir HFA [facility] 46220282276 108 (90 Base) Active USE 1-2 MCG/ACT PUFFS BY Inhalation MOUTH EVERY 4-6 HOURS Levothyroxine Sodium ND 84268640675 88 MCG Oral Active TAKE 1 TABLET BY MOUTH EVERY MORNING Valsartan-Hydrochlor ND 48110670664 80-12.5 MG Active TAKE 1 othiazide Oral TABLET BY MOUTH EVERY DAY Benzonatate ND 12805236491 200 MG Oral Active TAKE ONE CAPSULE BY MOUTH 3 TIMES A DAY NEEDED FOR COUGH MethylPREDNISolone ND 16902558839 4 MG Oral Active TAKE 6 TABLETS ON DAY 1 DIRECTED ON PACKAGE AND DECREASE BY 1 TAB EACH DAY FOR A TOTAL OF 6 DAYS GlyBURIDE ND 53807304016 5 MG Orally Iraida Active 1 tablet Once a day 2017 breakfast or the first main meal of the day MetFORMIN HCl ER ND 41932059545 750 MG Oral Active TAKE 1 TABLET BY MOUTH 2 TIMES DAILY BEFORE BREAKFAST AND DINNER. Results No Known Results Summary Purpose eClinicalWorks Submission
--- OUTSIDE RECORDS SUMMARY | 2018-11-03 00:09 | XMS REPORT ---
[...] End Status Dosage System Date Date Diflucan [facility] 03806318076 150 MG Orally Feb 20Feb Active 1 tablet Once a day 2017 Nitrofurantoin ND 53901927055 100 MG Orally Feb 20Feb Active 1 capsule Macrocrystal BID 2017 12, with food 2018 or milk GlyBURIDE ND 74409442363 5 MG Orally January 21, Active 1 tablet Once a day 2017 with breakfast or the first main meal of the day Levothyroxine ND 01483632115 88 MCG Oral Active TAKE 1 Sodium TABLET BY MOUTH EVERY MORNING Losartan ND 82829831700 50-12.5 MG February 12, Active 1 tablet Potassium-HCTZ Orally Once a 2018 day Valsartan-Hydroch ND 42533320544 80-12.5 MG Oral Active TAKE 1 lorothiazide TABLET BY MOUTH EVERY DAY Results Name Result Date Reference Range Unit Abnormality Flag THINPREP TIS PAP AND HPV mRNA E6/E7, CHLAMYDIA/N.GONORRHOEAE URINALYSIS AUTO W/O SCOPE (74613) ----PROTEIN N [id number] ----pH 5.5 20180220 ----NIT P [id number] ----CONCEPCION 1+ [id number] ----URO 1.0 [id number] ----SPECIFIC GRAVITY 1.015 20180220 ----BLO TR [id number] ----BILIRUBIN N [id number] ----KETONES N [id number] ----GLUCOSE N [id number] Summary Purpose eClinicalWorks Submission
--- OUTSIDE RECORDS SUMMARY | 2018-11-03 00:09 | XMS REPORT ---
[...] End Date Status Dosage System Date Losartan [facility] 34118386503 50-12.5 MG Active 1 tablet Potassium-HCTZ Orally Once a day Results No Known Results Summary Purpose eClinicalWorks Submission
--- OUTSIDE RECORDS SUMMARY | 2018-11-03 00:09 | XMS REPORT ---
[...] End Date Status Dosage System Date Losartan [facility][NOTE 3] 43861963134 50-12.5 MG February 12, Active 1 tablet Potassium-HCTZ Orally Once a 2017 day Results No Known Results Summary Purpose eClinicalWorks Submission
--- OUTSIDE RECORDS SUMMARY | 2018-11-03 00:09 | XMS REPORT ---
:1970 Author Organization eClinicalWorks Care Team Providers Name Role Phone [place], [place] Provider Role Unavailable Allergies No Known [...]
--- OUTSIDE RECORDS SUMMARY | 2018-11-03 00:09 | XMS REPORT ---
[...] Status Dosage System Date Date Amlodipine ND 00536903761 10 MG Orally Active 1 tablet Besylate Once a day MetFORMIN HCl ER ND 71434149803 750 MG Orally Active 1 tablet Once a day with evening meal Levothyroxine ND 26429166160 88 MCG Oral Active TAKE 1 Sodium TABLET BY MOUTH EVERY MORNING Hydrocortisone ND 54079697193 10 MG Orally Active 1 tablet every 12 hrs with food or milk Losartan ND 94046205908 50 MG Orally Active 1 tablet Potassium Once a day GlyBURIDE [facility] [address]-24 5 MG Orally Active 1/2 tablet BID with breakfast or the first main meal of the day Trulicity [facility] 37160104633 0.75mg/0.5ml October Active one SQ once a week , , injection 2018 2018 Fluconazole [facility] 21781723304 150 MG Orally October Active 1 tablet Once a day 2018 2019 Results Name Result Date Reference Range Unit Abnormality Flag HEMOGLOBIN A1C ----A1C 9.8 [id number] Summary Purpose eClinicalWorks Submission
--- OUTSIDE RECORDS SUMMARY | 2018-11-03 00:09 | XMS REPORT ---
[...] End Status Dosage System Date Date Hydrochlorothiazide [facility] 98676373207 12.5 MG Orally Jun 07, Active 1 tablet Once a day 2018 in the morning Levothyroxine Sodium ND 05103998968 88 MCG Oral Active TAKE 1 TABLET BY MOUTH EVERY MORNING Metformin HCl [facility] [address]-95 500 MG Orally Active 1 1/2 bid tablets with a meal Amlodipine Besylate ND 09355283132 10 MG Orally Active 1 tablet Once a day Hydrocortisone ND 33933742377 10 MG Orally Active 1 tablet every 12 hrs with food or milk Losartan [facility] 35570898998 50-12.5 MG Active 1 tablet Potassium-HCTZ Orally Once a day GlyBURIDE [facility] [address]-07 5 MG Orally Active 1/2 tablet BID with breakfast or the first main meal of the day Losartan Potassium [facility] 74318414153 50 MG Orally Active 1 tablet Once a day Results No Known Results Summary Purpose eClinicalWorks Submission
[2018-11-03] MEDS ORDERED: MEPERIDINE HCL 25 MG/0.5 ML ONE (00:55)
[2018-11-03] MEDS ORDERED: DOXYCYCLINE 100 MG CAP PO ONE (00:56)
[2018-11-03] MEDS ORDERED: DEXAMETHASONE 10 MG/ML VIAL ONE (00:56)
--- NOTE | 2018-11-03 01:20 | ER ---
Nurse's Notes [facility] Name: Chantal Stout Age: 48 yrs Sex: Female : 1970 Arrival Date: 11/03/2018 Time: 00:04 Bed 14 Private MD: JOSE MAR Diagnosis: Dental caries;Buccal cellulitis Presentation: 11/03 00:05 Presenting complaint: Patient states: that she was here yesterday for tooth pain. Area fc was injected with lidocaine and something else. Then at 1500 yesterday she felt a pop and now is having severe pressure to her face and is having "swelling". Transition of care: patient was not received from another setting of care. Onset of symptoms was November 02, 2018 at 15:00. Risk Assessment: Do you want to hurt yourself or someone else? Patient reports no desire to harm self or others. Initial Sepsis Screen: Does the patient meet any 2 criteria? HR > 90 bpm. Yes Does the patient have a suspected source of infection? No. Patient's initial sepsis screen is negative. Care prior to arrival: None. 00:05 Method Of Arrival: Ambulatory 00:05 Acuity: NOÉ 4 fc Historical: - Allergies: 00:16 Bactrim; fc 00:16 Cephalexin; fc 00:16 Iodine; fc 00:16 Levaquin; fc 00:16 Codeine; fc 00:16 Sulfa (Sulfonamide Antibiotics); fc - Home Meds: 00:16 amlodipine 10 mg tab 1 tab once daily [Active]; glyburide 5 mg Oral tab 1 tab once fc daily [Active]; hydrocortisone 10 mg Oral tab 1 tab 2 times per day [Active]; levothyroxine 75 mcg tab 1 tab once daily [Active]; losartan 50 mg Oral tab 1 tab once daily [Active]; metformin 750 mg Oral Tb24 1 tab twice a day [Active]; omeprazole 20 mg Oral cpDR 1 cap once daily [Active]; Xhance [Active]; - PMHx: 00:16 Anemia; Diabetes - NIDDM; Hypertension; Hypothyroidism; pituitary tumor- surgically fc removed Jun 24; Asthma; - PSHx: 00:16 Tonsillectomy; Pituitary tumor; cervical tumor removal; fc - Immunization history:: Last tetanus immunization: up to date Flu vaccine is not up to date. - Social history:: Smoking status: Patient/guardian denies using tobacco, Patient/guardian denies using alcohol, street drugs. - Ebola Screening: : Patient negative for fever greater than or equal to 101.5 degrees Fahrenheit, and additional compatible Ebola Virus Disease symptoms Patient denies exposure to infectious person Patient denies travel to an Ebola-affected area in the 21 days before illness onset. - Family history:: not pertinent. - Hospitalizations: : No recent hospitalization is reported. Screenin:05 Abuse screen: Denies threats or abuse. Nutritional screening: No deficits noted. fc Tuberculosis screening: No symptoms or risk factors identified. Fall Risk None identified. Assessment: 00:05 General: Appears in no apparent distress. uncomfortable, Behavior is calm, cooperative, rr5 appropriate for age. 00:05 Pain: Complains of pain in face Pain does not radiate. Pain currently is 7 out of 10 on rr5 a pain scale. Quality of pain is described as aching, Pain began gradually, Is intermittent. Neuro: Level of Consciousness is awake, alert, obeys commands, Oriented to person, place, time, situation, Appropriate for age. Cardiovascular: Capillary refill < 3 seconds Patient's skin is warm and dry. Respiratory: Airway is patent Respiratory effort is even, unlabored, Respiratory pattern is regular, symmetrical. GI: No signs and/or symptoms were reported involving the gastrointestinal system. : No signs and/or symptoms were reported regarding the genitourinary system. EENT: Reports tooth pain. Derm: Skin temperature is warm swelling right side of face noted. Musculoskeletal: No signs and/or symptoms reported regarding the musculoskeletal system. 01:05 Reassessment: Patient appears in no apparent distress at this time. Patient is alert, rr5 oriented x 3, equal unlabored respirations, skin warm/dry/pink. kept for observation. 01:29 Reassessment: Patient appears in no apparent distress at this time. Patient is alert, rr5 oriented x 3, equal unlabored respirations, skin warm/dry/pink. discharge instruction given and explained without complaints made. Patient states feeling better. Patient states symptoms have improved. Vital Signs: 00:05 BP 156 / 97; Pulse 106; Resp 18; Temp 98.1(O); Pulse Ox 96% on R/A; Weight 127.91 kg fc (R); Height 5 ft. 4 in. (162.56 cm) (R); Pain 7/10; 01:00 BP 122 / 76; Pulse 88; Resp 17; Pulse Ox 96% ; rr5 01:00 Pain 7/10; rr5 01:25 BP 133 / 70; Pulse 85; Resp 17; Pulse Ox 98% on R/A; Pain 5/10; rr5 00:05 Body Mass Index 48.40 (127.91 kg, 162.56 cm) ED Course: 00:04 Patient arrived in ED. do 00:05 JOSE MAR is Private Physician. do 00:05 Arm band placed on Patient placed in an exam room, on a stretcher. fc 00:05 Patient has correct armband on for positive identification. Bed in low position. Call light in reach. 00:05 No provider procedures requiring assistance completed. fc 00:14 Triage completed. fc 00:20 Pulse ox on. NIBP on. rr5 00:22 Leonardo Caro RN is Primary Nurse. rr5 00:25 Ranjan Mckoy MD is Attending Physician. rn 01:31 Patient did not have IV access during this emergency room visit. rr5 Administered Medications: 00:55 Drug: Demerol 25 mg Route: IM; Site: right gluteus; rr5 01:25 Follow up: Response: No adverse reaction rr5 00:57 Drug: Decadron 10 mg Route: IM; Site: left gluteus; rr5 01:25 Follow up: Response: No adverse reaction rr5 00:58 Drug: Doxycycline 100 mg Route: PO; rr5 01:32 Follow up: Response: No adverse reaction rr5 Outcome: 01:20 Discharge ordered by . rn 01:31 Discharged to home via wheelchair, with family. rr5 01:31 Condition: stable 01:31 Discharge instructions given to patient, Instructed on discharge instructions, follow up and referral plans. medication usage, Demonstrated understanding of instructions, follow-up care, medications, Prescriptions given X 1. 01:32 Patient left the ED. rr5 Signatures: Rafia Pollock RN ALCIDES Ranjan Mckoy MD MD rn [place], Danielle do Roque, Raymond, RN RN rr5
--- NOTE | 2018-11-03 01:21 | EDPHYS ---
Physician Documentation [facility] Name: Chantal Stout Age: 48 yrs Sex: Female : 1970 Arrival Date: 11/03/2018 Time: 00:04 Bed 14 Private MD: JOSE MAR ED Physician Ranjan Mckoy HPI: 11/03 01:06 This 48 yrs old Female presents to ER via Ambulatory with complaints of rn Facial Swelling. 01:06 The patient presents with pain, swelling. The problem is located in the face. rn 01:06 Onset: The symptoms/episode began/occurred 1 week(s) ago. Duration: The symptoms are rn continuous. Modifying factors: The symptoms are alleviated by nothing, the symptoms are aggravated by chewing, talking. Severity of symptoms: At their worst the symptoms were moderate, in the emergency department the symptoms have improved. The patient has experienced similar episodes in the past. The patient has been recently seen by a physician: The patient has been recently seen at the [facility] Emergency Department. REports seen here earlier today by Dr. Delong, had injection of numbing medication, felt better, then around 1530 heard a pop, and noticed worsened swelling of right face. No trouble swallowing. Saw her dentist this past week, put on amoxicillin, has appt to pull tooth on . . Historical: - Allergies: 00:16 Bactrim; fc 00:16 Cephalexin; fc 00:16 Iodine; fc 00:16 Levaquin; fc 00:16 Codeine; fc 00:16 Sulfa (Sulfonamide Antibiotics); fc - Home Meds: 00:16 amlodipine 10 mg tab 1 tab once daily [Active]; glyburide 5 mg Oral tab 1 tab once fc daily [Active]; hydrocortisone 10 mg Oral tab 1 tab 2 times per day [Active]; levothyroxine 75 mcg tab 1 tab once daily [Active]; losartan 50 mg Oral tab 1 tab once daily [Active]; metformin 750 mg Oral Tb24 1 tab twice a day [Active]; omeprazole 20 mg Oral cpDR 1 cap once daily [Active]; Xhance [Active]; - PMHx: 00:16 Anemia; Diabetes - NIDDM; Hypertension; Hypothyroidism; pituitary tumor- surgically fc removed Jun 24; Asthma; - PSHx: 00:16 Tonsillectomy; Pituitary tumor; cervical tumor removal; fc - Immunization history:: Last tetanus immunization: up to date Flu vaccine is not up to date. - Social history:: Smoking status: Patient/guardian denies using tobacco, Patient/guardian denies using alcohol, street drugs. - Ebola Screening: : Patient negative for fever greater than or equal to 101.5 degrees Fahrenheit, and additional compatible Ebola Virus Disease symptoms Patient denies exposure to infectious person Patient denies travel to an Ebola-affected area in the 21 days before illness onset. - Family history:: not pertinent. - Hospitalizations: : No recent hospitalization is reported. ROS: 01:06 Constitutional: Negative for fever, chills, and weight loss, Eyes: Negative for injury, rn pain, redness, and discharge, ENT: + dental pain and right cheek swelling Neck: Negative for injury, pain, and swelling, Cardiovascular: Negative for chest pain, palpitations, and edema, Respiratory: Negative for shortness of breath, cough, wheezing, and pleuritic chest pain, Skin: Negative for injury, rash, and discoloration, Neuro: Negative for headache, weakness, numbness, tingling, and seizure. Exam: 01:06 Constitutional: This is a well developed, well nourished patient who is awake, alert, rn and in no acute distress. Head/Face: Atraumatic. Eyes: Pupils equal round and reactive to light, extra-ocular motions intact. Lids and lashes normal. Conjunctiva and sclera are non-icteric and not injected. Cornea within normal limits. Periorbital areas with no swelling, redness, or edema. ENT: + poor dentition with right buccal space swelling, no fluctuance, no evidence of buccal or intraoral abscess. Neck: NO submandibular swelling Vital Signs: 00:05 BP 156 / 97; Pulse 106; Resp 18; Temp 98.1(O); Pulse Ox 96% on R/A; Weight 127.91 kg fc (R); Height 5 ft. 4 in. (162.56 cm) (R); Pain 7/10; 01:00 BP 122 / 76; Pulse 88; Resp 17; Pulse Ox 96% ; rr5 01:00 Pain 7/10; rr5 01:25 BP 133 / 70; Pulse 85; Resp 17; Pulse Ox 98% on R/A; Pain 5/10; rr5 00:05 Body Mass Index 48.40 (127.91 kg, 162.56 cm) fc MDM: 00:25 Patient medically screened. rn 01:19 Differential diagnosis: dental caries, dental abscess, buccal cellulitis. Data rn reviewed: vital signs, nurses notes, and as a result, I will discharge patient. Counseling: I had a detailed discussion with the patient and/or guardian regarding: the historical points, exam findings, and any diagnostic results supporting the discharge/admit diagnosis, the need for outpatient follow up, to return to the emergency department if symptoms worsen or persist or if there are any questions or concerns that arise at home. Response to treatment: the patient's symptoms have mildly improved after treatment, and as a result, I will discharge patient. Special discussion: I discussed with the patient/guardian in detail that at this point there is no indication for admission to the hospital. It is understood, however, that if the symptoms persist or worsen the patient needs to return immediately for re-evaluation. Based on the history and exam findings, there is no indication for further emergent testing or inpatient evaluation. I discussed with the patient/guardian the need to see a dentist for further evaluation of the symptoms. ED course: Pt states feels better, will dc home with dental f/u. . Administered Medications: 00:55 Drug: Demerol 25 mg Route: IM; Site: right gluteus; rr5 01:25 Follow up: Response: No adverse reaction rr5 00:57 Drug: Decadron 10 mg Route: IM; Site: left gluteus; rr5 01:25 Follow up: Response: No adverse reaction rr5 00:58 Drug: Doxycycline 100 mg Route: PO; rr5 01:32 Follow up: Response: No adverse reaction rr5 Disposition: 11/03/18 01:20 Discharged to Home. Impression: Dental caries, Buccal cellulitis. - Condition is Stable. - Discharge Instructions: Dental Pain. - Prescriptions for Doxycycline Monohydrate 100 mg Oral Tablet - take 1 tablet by ORAL route every 12 hours for 10 days; 20 tablet. - Medication Reconciliation Form, Thank You Letter, Antibiotic Education, Prescription Opioid Use form. - Follow up: Private Physician; When: As needed; Reason: Recheck today's complaints, Re-evaluation by your physician. - Problem is an ongoing problem. - Symptoms have improved. Signatures: Rafia Pollock RN RN Ranjan Mckoy MD MD rn Roque, Raymond, RN RN rr5 Corrections: (The following items were deleted from the chart) 01:32 01:20 11/03/2018 01:20 Discharged to Home. Impression: Dental caries; Buccal rr5 cellulitis. Condition is Stable. Discharge Instructions: Dental Pain. Prescriptions for Doxycycline Monohydrate 100 mg Oral Tablet - take 1 tablet by ORAL route every 12 hours for 10 days; 20 tablet. and Forms are Medication Reconciliation Form, Thank You Letter, Antibiotic Education, Prescription Opioid Use. Follow up: Private Physician; When: As needed; Reason: Recheck today's complaints, Re-evaluation by your physician. Problem is an ongoing problem. Symptoms have improved. rn
[2018-11-03 01:36] VITALS: TEMP 98.1
[2018-11-03 01:39] VITALS: BP 133/70; O2SAT 98
== END 2018-11-03 01:32 | disposition home or self-care (01) ==
LOC: ER 00:03
DX: L03.211 Cellulitis of face (principal); K02.9 Dental caries, unspecified; I10 Essential (primary) hypertension; E11.9 Type 2 diabetes mellitus without complications; E03.9 Hypothyroidism, unspecified; Z88.1 Allergy status to other antibiotic agents; Z88.2 Allergy status to sulfonamides; Z88.5 Allergy status to narcotic agent; Z91.048 Other nonmedicinal substance allergy status
CPT/HCPCS: 96372; 99283; J1100; J2175

== ENCOUNTER 2018-11-04 21:29 | Emergency (ER) | payer BC ==
--- OUTSIDE RECORDS SUMMARY | 2018-11-04 21:32 | XMS REPORT | Clinical Summary ---
:1970 Author Organization [facility] Address [address] [place] [address] Care Team Providers Name Role Phone Pcp, [...] packet by 3 packet 5 06/25/2018 Active eikla-uhneht-qoxemp Nasal route 2 bottle (NEILMED (two) times [...] MD Mezrahi, Maria, MD 06/18/2018 Travel after 11/03/2017 Family History Medical History Relation Name Comments [...] Taken Blood Pressure 125/71 06/27/2018 12:09 PM [facility]IT [facility] Pulse 63 06/27/2018 12:09 PM [facility] Temperature 36.2 C (97.1 F) 06/27/2018 12:09 PM [facility] Respiratory Rate 18 06/27/2018 12:09 PM [facility] Oxygen Saturation 97% 06/27/2018 12:09 PM [facility] Inhaled Oxygen Concentration - - Weight 122.5 kg (270 lb) 06/18/2018 9:00 PM [facility]IT [facility] Height 162.6 cm (5' 4") 06/18/2018 9:00 PM [facility] Body Mass Index 46.35 06/18/2018 9:00 PM [facility] Plan of Treatment Date Type Specialty Care Team Description 11/15/2018 Appointment Radiology Alex Ruano MD [address] [address] [phone] Implants Implanted Type Area Live In Caregiver Device Shelf Model / Identifier Expiration Serial / Date Lot Sealant Durasl Spine 5ml [id number] - [id number] Cement/Fi N/A: INTEGRA LIFESCI 10/21/2019 [id number] / Implanted: Qty: 1 on 06/24/2018 by Alex Ruano MD ller/[place] / sive [id number] [facility] Full Strlprep 10ml [id number] - [id number] Cement/Fi N/A: FUNES: BIOSCI 11/18/2019 [id number] / Implanted: Qty: 1 on 06/24/2018 by Alex Ruano MD ller/[place] / sive [id number] Graft Matrix Dura 1x3 [id number] - [id number] Neuro N/A: [employer] 02/20/2020 [id number] / Implanted: Qty: 1 on 06/24/2018 by Alex Ruano MD Head SURGICAL / NAVIGATION [id number] Procedures Procedure Name Priority Date/Time Associated Comments Diagnosis INTRAOPERATIVE PATH 06/29/2018 1:00 REPORT - SCAN PM [facility] RHYTHM STRIP - SCAN 06/29/2018 1:00 PM [facility] POCT-GLUCOSE METER Routine 06/27/2018 12:07 Results for this PM [facility] procedure are in the results section. POCT-GLUCOSE METER Routine 06/27/2018 7:41 Results for this AM [facility] procedure are in the results section. CBC W/PLT COUNT & AUTO Routine 06/27/2018 5:56 Results for this DIFFERENTIAL AM [facility] procedure are in the results section. BASIC METABOLIC PANEL Routine 06/27/2018 5:56 Results for this (7) AM [facility] procedure are in the results section. CBC W/PLT COUNT & AUTO Routine 06/27/2018 5:56 Results for this DIFFERENTIAL AM [facility] procedure are in the results section. CBC W/PLT COUNT & AUTO STAT 06/26/2018 11:18 Results for this DIFFERENTIAL PM [facility] procedure are in the results section. CBC W/PLT COUNT & AUTO STAT 06/26/2018 11:18 Results for this DIFFERENTIAL PM [facility] procedure are in the results section. BASIC METABOLIC PANEL STAT 06/26/2018 11:18 Results for this (7) PM [facility] procedure are in the results section. SODIUM, RANDOM URINE STAT 06/26/2018 11:11 Results for this PM [facility] procedure are in the results section. CT BRAIN WITHOUT IV STAT 06/26/2018 10:25 Results for this CONTRAST PM [facility] procedure are in the results section. POCT-GLUCOSE METER Routine 06/26/2018 9:01 Results for this PM [facility] procedure are in the results section. CBC W/PLT COUNT & AUTO Routine 06/26/2018 1:55 Results for this DIFFERENTIAL PM [facility] procedure are in the results section. BASIC METABOLIC PANEL Routine 06/26/2018 1:55 Results for this (7) PM [facility] procedure are in the results section. CBC W/PLT COUNT & AUTO Routine 06/26/2018 1:55 Results for this DIFFERENTIAL PM [facility] procedure are in the results section. POCT-GLUCOSE METER Routine 06/26/2018 1:33 Results for this PM [facility] procedure are in the results section. POCT-GLUCOSE METER Routine 06/26/2018 12:06 Results for this PM [facility] procedure are in the results section. POCT-GLUCOSE METER Routine 06/25/2018 4:10 Results for this PM [facility] procedure are in the results section. POCT-GLUCOSE METER Routine 06/25/2018 12:02 Results for this PM [facility] procedure are in the results section. POCT-GLUCOSE METER Routine 06/25/2018 8:02 Results for this AM [facility] procedure are in the results section. OSMOLALITY, URINE STAT 06/25/2018 4:23 Results for this AM [facility] procedure are in the results section. SPECIFIC GRAVITY, STAT 06/25/2018 4:23 Results for this URINE AM [facility] procedure are in the results section. POCT-GLUCOSE METER Routine 06/24/2018 9:56 Results for this PM [facility] procedure are in the results section. POCT-GLUCOSE METER Routine 06/24/2018 4:57 Results for this PM [facility] procedure are in the results section. BASIC METABOLIC PANEL STAT 06/24/2018 4:50 Results for this (7) PM [facility] procedure are in the results section. POCT-GLUCOSE METER Routine 06/24/2018 11:09 Results for this AM [facility] procedure are in the results section. POCT-GLUCOSE METER Routine 06/24/2018 9:38 Results for this AM [facility] procedure are in the results section. TISSUE EXAM AP Routine 06/24/2018 8:02 Results for this AM [facility] procedure are in the results section. ENDOSCOPIC SINUS 06/24/2018 7:00 Pituitary adenoma SURGERY,REPAIR CSF AM [facility] (HCC) [place]AK Special Needs (STEALTH NAVIGATION, LUMBAR DRAIN SET, LANDMARK CT SCAN ON ) TURBINECTOMY,NASAL 06/24/2018 7:00 AM [facility] Pituitary adenoma (HCC) Special Needs (STEALTH NAVIGATION, LUMBAR DRAIN SET, LANDMARK CT SCAN ON ) ENDOSCOPIC SINUS 06/24/2018 7:00 AM [facility]IT [facility] Pituitary adenoma SURGERY,ETHMOIDECTOMY W/ (HCC) SPHENOIDOTOMY Special Needs (STEALTH NAVIGATION, LUMBAR DRAIN SET, LANDMARK CT SCAN ON ) PROCEDURE W/ STEALTH 06/24/2018 7:00 AM UN[facility] Pituitary adenoma (HCC) Special Needs (STEALTH NAVIGATION, LUMBAR DRAIN SET, LANDMARK CT SCAN ON ) ENDOSCOPIC CRANIOTOMY,REMOVAL 06/24/2018 7:00 AM [facility] Pituitary adenoma ( HCC) TRANSSPHENOIDAL PITUITARY TUMOR Special Needs (STEALTH NAVIGATION, LUMBAR DRAIN SET, LANDMARK CT SCAN ON ) POCT-GLUCOSE METER Routine 06/24/2018 5:42 AM [facility] SCREEN, URINE STAT 06/24/2018 5:16 AM [facility] BASIC METABOLIC PANEL (7) Routine 06/24/2018 5:16 AM [facility] CBC W/PLT COUNT & AUTO Routine 06/24/2018 5:07 AM [facility] Results for this DIFFERENTIAL procedure are in the results section. PT/APTT Routine 06/24/2018 5:07 AM [facility] CBC W/PLT COUNT & AUTO Routine 06/24/2018 5:07 AM [facility] Results for this DIFFERENTIAL procedure are in the results section. POCT-GLUCOSE METER Routine 06/23/2018 9:21 PM [facility] POCT-GLUCOSE METER Routine 06/23/2018 4:31 PM [facility] BASIC METABOLIC PANEL (7) Routine 06/23/2018 4:13 PM [facility]IT [facility] POCT-GLUCOSE METER Routine 06/23/2018 8:30 AM [facility] POCT-GLUCOSE METER Routine 06/22/2018 11:34 PM [facility] POCT-GLUCOSE METER Routine 06/22/2018 8:21 PM [facility]IT [facility] POCT-GLUCOSE METER Routine 06/22/2018 5:07 PM [facility]IT [facility]Y POCT-GLUCOSE METER Routine 06/22/2018 11:49 AM [facility] POCT-GLUCOSE METER Routine 06/22/2018 8:30 AM [facility] POCT-GLUCOSE METER Routine 06/21/2018 9:09 PM [facility]IT [facility] POCT-GLUCOSE METER Routine 06/21/2018 5:20 PM [facility]IT [facility] POCT-GLUCOSE METER Routine 06/21/2018 11:06 AM [facility] ECHOCARDIOGRAM REPORT - SCAN 06/21/2018 9:21 AM [facility] FOLLICLE STIMULATING HORMONE Routine 06/21/2018 9:11 AM [facility] Results for this (FSH) procedure are in the results section. INSULIN-LIKE GROWTH FACTOR Routine 06/21/2018 9:11 AM [facility] ACTH Routine 06/21/2018 9:11 AM [facility] CORTISOL Routine 06/21/2018 9:11 AM [facility] POCT-GLUCOSE METER Routine 06/21/2018 7:[address] BRAIN WITHOUT IV CONTRAST TERI 06/20/2018 9:48 PM [facility]IT [facility] POCT-GLUCOSE METER Routine 06/20/2018 8:48 PM UNIT [facility] 2D ECHO W/ DOPPLER Routine 06/20/2018 6:40 PM [facility]IT [facility] Results for this (CW/PW/COLOR) procedure are in the results section. POCT-GLUCOSE METER Routine 06/20/2018 4:48 PM [facility] POCT-GLUCOSE METER Routine 06/20/2018 1:06 PM [facility] POCT-GLUCOSE METER Routine 06/20/2018 7:21 AM [facility] POCT-GLUCOSE METER Routine 06/20/2018 5:22 AM [facility] BASIC METABOLIC PANEL (7) STAT 06/20/2018 5:08 AM [facility] POCT-GLUCOSE METER Routine 06/20/2018 12:[address]/CTA CAROTID TREI 06/19/2018 10:[address]/CTA BRAIN TERI 06/19/2018 10:46 PM [facility]IT [facility] POCT-GLUCOSE METER Routine 06/19/2018 9:19 PM [facility]IT [facility] POCT-GLUCOSE METER Routine 06/19/2018 5:06 PM [facility] POCT-GLUCOSE METER Routine 06/19/2018 3:03 PM [facility] POCT-GLUCOSE METER Routine 06/19/2018 12:27 PM [facility] SCREEN, URINE Routine 06/19/2018 11:54 AM [facility] OSMOLALITY, URINE Routine 06/19/2018 11:54 AM [facility] RAPID DRUG SCREEN, URINE Routine 06/19/2018 11:54 AM [facility] CBC W/PLT COUNT & AUTO Routine 06/19/2018 11:49 AM [facility] Results for this DIFFERENTIAL procedure are in the results section. INSULIN-LIKE GROWTH FACTOR Routine 06/19/2018 11:49 AM [facility] OSMOLALITY, SERUM Routine 06/19/2018 11:49 AM [facility] T4, FREE Routine 06/19/2018 11:49 AM [facility] C-REACTIVE PROTEIN Routine 06/19/2018 11:49 AM UNIT [facility] HIV-1 ANTIGEN WITH HIV-1/2 Routine 06/19/2018 11:49 AM [facility] Results for this ANTIBODY procedure are in the results section. RPR Routine 06/19/2018 11:49 AM [facility] CBC W/PLT COUNT & AUTO Routine 06/19/2018 11:49 AM [facility] Results for this DIFFERENTIAL procedure are in the results section. POCT-GLUCOSE METER Routine 06/19/2018 9:25 AM UNIT [facility] POCT-GLUCOSE METER Routine 06/19/2018 5:51 AM [facility] GROWTH HORMONE Routine 06/19/2018 3:49 AM UN[facility] LUTEINIZING HORMONE (LH) Routine 06/19/2018 3:49 AM [facility] ACTH Routine 06/19/2018 3:49 AM [facility] PROLACTIN Routine 06/19/2018 3:49 AM UNIT [facility] MR BRAIN WITHOUT & WITH IV STAT 06/19/2018 2:25 AM UN[facility] Results for this CONTRAST procedure are in the results section. HEMOGLOBIN A1C Routine 06/19/2018 12:39 AM UNIT [facility] TSH/FREE T4 IF INDICATED Routine 06/18/2018 11:32 PM UNIT [facility] BASIC METABOLIC PANEL (7) STAT 06/18/2018 11:32 PM UNIT [facility] URINALYSIS W/ REFLEX URINE Routine 06/18/2018 10:27 PM UNIT [facility] Results for this CULTURE procedure are in the results section. after 11/03/2017 Results INTRAOPERATIVE PATH REPORT - SCAN (06/29/2018 1:00 PM UNIT [facility]) Narrative Performed At RHYTHM STRIP - SCAN (06/29/2018 1:00 PM UNIT [facility]) Narrative Performed At POC-Glucose meter (06/27/2018 12:07 PM UNIT SEC[facility])Only the most recent of37 resultswithin the time period is included. POC-Glucose Meter 141 (H)Comment: TESTED AT 70 - 110 mg/dL [address] [address] Specimen Blood Performing Organization Address City/State/Zipcode Phone Number [address] [address] CENTER CBC with platelet count + automated diff (06/27/2018 5:56 AM UNIT [facility])Only the most recent of5 resultswithin the time period is included. WBC 8.7 3.5 - 10.5 K/L [facility] RBC 4.82 3.93 - 5.22 M/L [facility] Hemoglobin 13.2 11.2 - 15.7 GM/DL [facility] Hematocrit 40.8 34.1 - 44.9 % [facility] MCV 84.6 79.4 - 94.8 fL [facility] MCH 27.4 25.6 - 32.2 pg [facility] MCHC 32.4 32.2 - 35.5 GM/DL [facility] RDW 13.2 11.7 - 14.4 % [facility] Platelets 233 150 - 450 K/CU MM [facility] MPV 11.5 9.4 - 12.3 fL [facility] nRBC 0 0 - 0 /100 WBC [facility] % Neutros 65 % [facility] % Lymphs 24 % [facility] % Monos 8 % [facility] % Eos 2 % [facility] % Baso 0 % [facility] # Neutros 5.65 1.56 - 6.13 K/L [facility] # Lymphs 2.07 1.18 - 3.74 K/L [facility] # Monos 0.70 (H) 0.24 - 0.36 K/L [facility] # Eos 0.16 0.04 - 0.36 K/L [facility] # Baso 0.02 0.01 - 0.08 K/L [facility] Immature Granulocytes-Relative 1 0 - 1 % [facility] Specimen Blood Performing Organization Address City/State/Zipcode Phone Number [facility] [address] [place] [address] [phone] CENTER Basic Metabolic Panel (06/27/2018 5:56 AM UNIT [facility])Only the most recent of8 resultswithin the time period is included. Sodium 139 136 - 145 meq/L [facility] Potassium 4.1 3.5 - 5.1 meq/L [facility] Chloride 105 98 - 107 meq/L [facility] CO2 28 22 - 29 meq/L [facility] BUN 11 7 - 21 mg/dL [facility] Creatinine 0.69 0.57 - 1.25 mg/dL [facility] Glucose 163 (H) 70 - 105 mg/dL [facility] Calcium 8.6 8.4 - 10.2 mg/dL [facility] EGFR 91Comment: ESTIMATED GFR IS mL/min/1.73 sq m [facility] NOT ACCURATE [facility] CLEARANCE IN PREDICTING GLOMERULAR FILTRATION RATE. ESTIMATED GFR IS NOT APPLICABLE FOR DIALYSIS PATIENTS. Specimen Blood Performing Organization Address City/[facility]/Zipcode Phone Number [address] [address] [phone] [place] Sodium, random urine (06/26/2018 11:11 PM UNIT [facility]) Sodium Urine <20 meq/L [facility] Specimen Urine - Urine, Voided Narrative Performed At Reference Range: No Normals [facility] Performing Organization Address City/State/Zipcode Phone Number [address] [address] [phone] [place] [address] brain without IV contrast (06/26/2018 10:25 PM UNIT [facility])Only the most recent of2 resultswithin the time period is included. Narrative Performed At FINAL REPORT [facility] CT Head without contrast CLINICAL HISTORY: concern [...] MD Report Verified Date/Time:06/26/2018 22:57:28 Reading Location: [facility] C0[facility] Transitional Reading Room Procedure Note Interface, External Ris In - 06/26/2018 10:59 PM UNIT [facility] FINAL REPORT CT Head without contrast CLINICAL [...] Report Verified Date/Time: 06/26/2018 22:57:28 Reading Location: [facility] C0[facility] Transitional Reading Room Performing Organization Address City/State/Zipcode Phone Number GE RIS Specific gravity, urine (06/25/2018 4:23 AM UNIT [facility]) Specific [place], UA 1.010 1.001 - 1.035 [facility] Specimen Urine - Urine, Fonseca Performing Organization Address [facility] Phone Number [address] [address] [phone] [place] Osmolality, urine (06/25/2018 4:23 AM UNIT [facility])Only the most recent of2 resultswithin the time period is included. Osmolality, Ur 340 40-1,400 mOsm/kg [facility] Specimen Urine - Urine, Fonseca Performing Organization Address [facility] Phone Number [address] [address] [place] Tissue Exam (06/24/2018 8:02 AM UNIT [facility]) Case Report Surgical Pathology Report Case: [id number] [facility] Authorizing Provider:Alex Ruano MD Collected: 06/24/[address] [place] [address] MEDICAL Ordering Location: [address] Received: 06/24/2018 0809 CENTER Service Pathologist: Chon Caraballo MD Specimens: A) - Tumor, pituitary tumor B) - Tumor, pituitary tumor DIAGNOSIS A.PITUITARY GLAND, TRANSSPHENOIDAL 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 PITUITARY GLAND, TRANSSPHENOIDAL HYPOPHYSECTOMY: NULL CELL ADENOMA ENTRAPPED ADENOHYPOPHYSIS Signing Pathologist Direct Phone Line: [phone] COMMENT Immunoperoxidase stains LIMA FERRERS performed on the second [facility] specimen show that the tumor CENTER has no staining for growth hormone, LH, FSH, TSH, prolactin, or ACTH. 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 The MIB-1 proliferation index is less than 1%. CPT Code(s) 88627 x 2; 58496; 85591; 72831 [facility] x 6; 01207 [facility] CLINICAL HISTORY Pituitary adenoma [facility] SPECIMEN SOURCE A. Pituitary tumor; B. [facility] Pituitary tumor [facility] GROSS DESCRIPTION A. The specimen is received fresh for frozen section diagnosis and labeled "pituitary tumor" and consists of a single fragment of tariq -red soft tissue measuring 0.5 cm in greatest dimension submitted ent [facility] for frozen section diagnosis, and touch preps are performed. CG/ew [facility] B. Received fresh labeled "tumor", description "pituitary tumor" is a 2.0 x 1.0 x 0.3 cm aggregate of pink-tariq to hannah-white rubbery friable soft tissue. The specimen is entirely submitted in cassette B1. DB/pl INTRAOPERATIVE FROZEN SECTION DIAGNOSIS, PITUITARY TUMOR: [facility] CONSULTATION ADENOMA EXTENDING INTO RESPIRATORY MUCOSA PER DR. CARABALLO [facility] MICROSCOPIC DESCRIPTION Performed on A and B [facility] SPECIAL STUDIES The interpretation of this case included the use of immunohistochemistry or special stains. [facility] Immunohistochemistry technical testing was performed at [facility], Pathology Laboratory where it was developed [...] Tumor Performing Organization Address City/State/Zipcode Phone Number [facility] [address] [place] [address] CENTER Screen, urine (06/24/2018 5:16 AM UNIT [facility])Only the most recent of2 resultswithin the time period is included. Preg Test, Ur Negative [facility] Specimen Urine Performing Organization Address [facility] Phone Number [address] [address] [phone] CENTER PT/aPTT (06/24/2018 5:07 AM UNIT SECY) Protime 13.8 11.7 - 14.7 seconds [facility] INR 1.1 <=5.9 [facility] PTT 32.0 22.5 - 36.0 seconds [facility] Specimen Blood Narrative Performed At RECOMMENDED COUMADIN/WARFARIN INR THERAPY [facility] RANGES STANDARD DOSE: 2.0 - 3.0 Includes: PROPHYLAXIS for venous thrombosis, systemic embolization; TREATMENT for venous thrombosis and/or pulmonary embolus. HIGH RISK: Target INR is 2.5-3.5 for patients with mechanical heart valves. Performing Organization Address [facility] Phone Number [address] [address] [phone] [place] ECHOCARDIOGRAM REPORT - SCAN (06/21/2018 9:21 AM UNIT [facility]) Narrative Performed At Cortisol (06/21/2018 9:11 AM UNIT [facility]) Cortisol, Total 4.7 3.7 - 19.4 ug/dL [facility] Specimen Blood - Arm, Right Performing Organization Address [facility] Phone Number [address] [address] CENTER Insulin-like growth factor (06/21/2018 9:11 AM UNIT SEC[facility])Only the most recent of2 resultswithin the time period is included. Igf-1(Somatomedin-C) 36 (L) 52 - 328 ng/mL [facility] Z-Score Male: DNR [facility] Z-Score Female: -2.6 (L) -2.0 - 2.0 SD [facility] Comment: [facility] This test was developed and its analytical performance characteristics have been determined by [facility]. It has not been cleared or approved by FDA. This assay has been validated pursuant to the CLIA regulations and is used for clinical purposes. Specimen Blood - Arm, Right Narrative Performed At Performing Lab [employer] [facility] [address] [address] Sixto Rodrigez MD, PhD, ANABELL Performing Organization Address [facility] [place] [address] [place] [address] ACTH (06/21/2018 9:11 AM UNIT SEC[facility])Only the most recent of2 resultswithin the time period is included. ACTH 17 6 - 50 pg/mL [facility] Comment: Reference range applies only to the specimens collected between 7am-10am. Specimen Blood - Arm, Right Narrative Performed At Performing Lab [employer] [facility] [address] [address] Sixto Rodrigez MD, PhD, ANABELL Performing Organization Address [facility] [place] [address] [address] [place] [address] Follicle stimulating hormone (FSH) (06/21/2018 9:11 AM UNIT SEC[facility]) Fsh 2.3 mIU/mL [facility] Comment: Adult female reference ranges for FSH: Follicular Phase: 2.5- 10.2 mIU/mL Mid-Cycle:3.1- 17.7 mIU/mL Luteal Phase: 1.5-9.1 mIU/mL Postmenopausal:23.0-116.3 mIU/mL Children (<18 Years Old): FSH reference ranges established on post-pubertal patient population. Reference range not established for pre-pubertal patients using this assay. For pre-pubertal patients, the [facility] FSH, Pediatrics assay is recommended (test code 52992). Specimen Blood - Arm, Right Narrative Performed At Performing Lab [employer] [facility] [employer] [address] Sixto Rodrigez MD, PhD, ANABELL Performing Organization Address [facility]/Zipcode Phone Number [facility] [address], [place] [address] [facility]ORPORATED [address] [facility] 2D Echo W/Doppler(CW/PW/Color) (06/20/2018 6:40 PM UNIT SECY) Ejection Fraction [facility] ECHO [facility] Narrative Performed At Transthoracic Echocardiography Report (TTE) [facility] ECHO HEARTLAB [facility] Demographics Patient NameVY STOUT Date of Study06/20/2018 Female Visit [id number] Unknown Room [id number] Number Date of 1970Referring Abrahan Mireles MD Age 48 year(s)Certified Physician'S Assistant Elaina Sonamradha [facility] [employer] Tony Fernandez Interpreting Tarik Domínguez MD Procedure [...] External Ris In - 06/21/2018 8:37 AM UNIT SECY Transthoracic Echocardiography Report (TTE) Demographics Patient Name VY STOUT Date of Study 06/20/2018 Gender Female Visit Number [id number] Race Unknown Room Number 2251 Number Date of 1970 Referring Physician Althea Mireles MD Age 48 year(s) Certified Physician'S Assistant Elaina Grajeda RDCS [employer] Tony Fernandez Interpreting Ethan Domínguez Physician Procedure [...] TR Gradient: 18.02 mmHg Performing Organization Address City/State/[facility] Phone Number [facility] ECHO HE[facility] CTA carotid (06/19/2018 10:46 PM UNIT SECY) Narrative Performed At FINAL REPORT [employer] [facility] CLINICAL HISTORY: Stroke TECHNIQUE: Initially, [...] MD Report Verified Date/Time:06/20/2018 01:03:44 Reading Location: [address] Transitional Reading Room Procedure Note Interface, External Ris In - 06/20/2018 1:05 AM UNIT SECY FINAL REPORT CLINICAL HISTORY: Stroke TECHNIQUE: Initially, [...] Report Verified Date/Time: 06/20/2018 01:03:44 Reading Location: [address] Transitional Reading Room Performing Organization Address City/State/Zipcode Phone Number GE RIS CTA brain (06/19/2018 10:46 PM UNIT SECY) Narrative Performed At FINAL REPORT [facility] [...] MD Report Verified Date/Time:06/20/2018 01:03:44 Reading Location: [address] Transitional Reading Room Procedure Note Interface, External Ris In - 06/20/2018 1:05 AM UNIT SECY FINAL REPORT CLINICAL HISTORY: Stroke TECHNIQUE: Initially, [...] Report Verified Date/Time: 06/20/2018 01:03:44 Reading Location: [facility] B1 C013T Transitional Reading Room Performing Organization Address City/State/Zipcode Phone Number RIS Rapid drug screen, urine (06/19/2018 11:54 AM UNIT SECY) Barbiturate Screen Negative Negative [facility] Benzodiazepine Screen Negative Negative [facility] Cocaine (Metab.) Screen Negative Negative [facility] Methadone Screen Negative Negative [facility] Opiate Screen Negative Negative [facility] Cannabinoid Screen Negative Negative [facility] Amph/Methamph Screen Negative Negative [facility] Phencyclidine Screen Negative Negative [facility] Oxycodone Screen Negative Negative [facility] Specimen Urine - Urine, Voided Narrative Performed At [facility] CONC. Cocaine 300 ng/mL Jzgxsrltpqs94 ng/mL Xmkbjkvogmgcua006 ng/mL Barbiturate 200 ng/mL Oxikyzytnfpew01 ng/mL Gfkcfo162 ng/mL Methadone 300 ng/mL Amphetamine/ 1000 ng/mL Methamphetamine Oxycodone 300 ng/mL This assay provides an unconfirmed qualitative test result for the clinical management of patients in emergency situations. Chain of custody not maintained. Some sqoi-hez-yulguuu medications, as well as adulterants, may cause inaccurate results. Clinical correlation should be applied. A more comprehensive drug screen or confirmation of a detected drug may be performed upon request. Performing Organization Address City/[facility] Phone Number [address] [address] [phone] CENTER HIV-1 Antigen with HIV-1/2 Antibody (06/19/2018 11:49 AM UNIT SECY) HIV-1 Antigen with HIV 1&2 NON-REACTIVE Nonreactive [facility] Specimen Blood - Arm, Left Performing Organization Address City/[facility] Phone Number [address] [address] [phone] CENTER C-Reactive Protein (06/19/2018 11:49 AM UNIT SECY) CRP 0.81 (H) 0.00 - 0.50 mg/dL [facility] Specimen Blood - Arm, Left Performing Organization Address [facility] Phone Number [address] [phone] CENTER RPR (06/19/2018 11:49 AM UNIT SECY) RPR Nonreactive Nonreactive [facility] Specimen Blood - Arm, Left Performing Organization Address [facility] Phone Number [address] [phone] CENTER T4, free (06/19/2018 11:49 AM UNIT SECY) Free T4 0.89 0.70 - 1.48 ng/dL [facility] Specimen Blood - Arm, Left Performing Organization Address [facility] Phone Number [address] [address] CENTER Osmolality, serum (06/19/2018 11:49 AM UNIT SEC[facility]) Osmolality Serum 310 (H) 275 - 295 mOsm/kg [facility] Specimen Blood - Arm, Left Performing Organization Address [facility] Phone Number [address] [address] CENTER Prolactin (06/19/2018 3:49 AM UNIT SECY) Prolactin 23.34 5.18 - 26.53 ng/mL [facility] Specimen Blood Performing Organization Address [facility] Phone Number [address] [phone] CENTER Growth hormone (06/19/2018 3:49 AM UNIT SEC[facility]) Growth Hormone <0.1 < OR=7.1 ng/mL [facility] [...] Guideline. J Clin Endocrinol Metab 2014; 99: 8771-4138]. Using GH stimulation testing, the following result at any point in the timed sequence makes GH deficiency unlikely: Adults (> or=20 years): Insulin Hypoglycemia > or=5.1 ng/mL Arginine/GHRH> or=4.1 ng/mL Glucagon > or=3.0 ng/mL Children (<20 years): All Stimulation Tests> or=10.0 ng/mL Specimen Blood Narrative Performed At Performing [facility] [place] [address] Sixto Rodrigez MD, PhD, ANABELL Performing Organization Address [facility] Phone [place] [address] [facility] [employer] Luteinizing hormone (LH) (06/19/2018 3:49 AM UNIT SECY) LH, Serum 0.2 mIU/mL [employer] Comment: Adult Female Reference Ranges for LH: Follicular Phase:1.9-12.5 mIU/mL Mid-Cycle Peak:8.7-76.3 mIU/mL Luteal Phase:0.5-16.9 mIU/mL Postmenopausal: 10.0-54.7 mIU/mL Children (<18 Years Old): LH reference ranges established on post-pubertal patient population. Reference range not established for pre-pubertal patients using this assay. For pre-pubertal patients, the Apofore LH, Pediatric assay is recommended (order code [id number]). Specimen Blood Narrative Performed At [facility] [address] [place] [address] Sixto Rodrigez MD, PhD, ANABELL Performing Organization Address [facility] Phone Number [place] [address] [facility] [employer] MR brain without & with IV contrast (06/19/2018 2:25 AM UNIT SECY) Narrative Performed At FINAL REPORT [employer] MRI brain with and without contrast Comparison:None. 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 Discussion: Multiplanar MR imaging of the brain and sella was provided mrh-gyx-jgxi IV gadolinium administration using T1, T2, FLAIR, [...] Report Verified Date/Time: 06/19/2018 02:25:15 Reading Location: [facility] [id number] CT Body Reading Room Performing Organization Address City/State/[facility] Phone Number [facility] Hemoglobin A1c (06/19/2018 12:39 AM UNIT SECY) Hemoglobin A1C 7.9 (H) 4.3 - 6.1 % [facility] Specimen Blood Performing Organization Address City/[facility] Phone Number [address] [address] [phone] CENTER TSH/Free T4 If Indicated (06/18/2018 11:32 PM UNIT SECY) TSH 0.41 0.35 - 4.94 uIU/mL [facility] Specimen Blood Performing Organization Address [facility] Phone Number [address] [address] [phone] CENTER Urinalysis w/Microscopic + Reflex to Culture (06/18/2018 10:27 PM UNIT SECY) Color, UA Yellow [facility] Clarity, UA Clear [facility] Specific [place], UA 1.011 1.001 - 1.035 [facility] pH, UA 5.0 5.0 - 8.0 [facility] Protein, UA Negative Negative [facility] Glucose, UA >1000 mg/dL (A) Negative [facility] Ketones, UA 20 mg/dL (A) Negative [facility] Bilirubin, UA Negative Negative [facility] Blood, UA Negative Negative [facility] Nitrite, UA Negative Negative [facility] Leukocytes, UA Negative Negative [facility] Urobilinogen, UA 0.2 0.2 - 1.0 mg/dL [facility] RBC, UA <1 /HPF [facility] WBC, UA <1 /HPF [facility] Squam Epithel, UA <1 /HPF [facility] Specimen Source [facility] Specimen Urine - Urine, Clean Catch Performing Organization Address City/State/Zipcode Phone Number [facility] [address] [place] [phone] CENTER after 11/03/2017 Insurance Payer Benefit Plan / Subscriber ID Type Phone Address Group [employer] xxxxxxxxxxxx PPO [phone] [address] [employer] [place] [address] (Home) [address] [place] [phone] Advance Directives Patient has advance care planning documents, and code status on file. For more information, please contact:[address] [phone] Code Status Date Activated Date Inactivated Comments Full Code 06/26/2018 1:38 PM This code status was determined by: Patient Full Code 06/18/2018 8:39 PM 06/26/2018 11:54 AM This code status was determined by: Patient
--- OUTSIDE RECORDS SUMMARY | 2018-11-04 21:34 | XMS REPORT ---
:1970 Author Organization [employer] Care Team Providers Name Role Phone Ward, Neeru Provider Role Unavailable Allergies No Known [...]
--- OUTSIDE RECORDS SUMMARY | 2018-11-04 21:34 | XMS REPORT ---
[...] End Status Dosage System Date Date Hydrochlorothiazide [facility] 50138709710 12.5 MG Orally Jun 07, Active 1 tablet Once a day 2018 in the morning Levothyroxine Sodium ND 96205843233 88 MCG Oral Active TAKE 1 TABLET BY MOUTH EVERY MORNING Metformin HCl [facility] [address]-15 500 MG Orally Active 1 1/2 bid tablets with a meal Amlodipine Besylate ND 15791206334 10 MG Orally Active 1 tablet Once a day Hydrocortisone ND 58257033828 10 MG Orally Active 1 tablet every 12 hrs with food or milk Losartan [facility] 48793736586 50-12.5 MG Active 1 tablet Potassium-HCTZ Orally Once a day GlyBURIDE [facility] [address]-45 5 MG Orally Active 1/2 tablet BID with breakfast or the first main meal of the day Losartan Potassium [facility] 34279453602 50 MG Orally Active 1 tablet Once a day Results No Known Results Summary Purpose [employer] Submission
--- OUTSIDE RECORDS SUMMARY | 2018-11-04 21:34 | XMS REPORT ---
[...] End Status Dosage System Date Date Diflucan [facility] 48917291347 150 MG Orally Feb 20Feb Active 1 tablet Once a day 2017 Nitrofurantoin ND 90934430006 100 MG Orally Feb 20Feb Active 1 capsule Macrocrystal BID 2017 12, with food 2018 or milk GlyBURIDE ND 92773425316 5 MG Orally January 21, Active 1 tablet Once a day 2017 with breakfast or the first main meal of the day Levothyroxine ND 84917185102 88 MCG Oral Active TAKE 1 Sodium TABLET BY MOUTH EVERY MORNING Losartan ND 93960939509 50-12.5 MG February 12, Active 1 tablet Potassium-HCTZ Orally Once a 2018 day Valsartan-Hydroch ND 98794816567 80-12.5 MG Oral Active TAKE 1 lorothiazide TABLET BY MOUTH EVERY DAY Results Name Result Date Reference Range Unit Abnormality Flag THINPREP TIS PAP AND HPV mRNA E6/E7, CHLAMYDIA/N.GONORRHOEAE URINALYSIS AUTO W/O SCOPE (51505) ----PROTEIN N [id number] ----pH 5.5 [id number] ----NIT P [id number] ----CONCEPCION 1+ [id number] ----URO 1.0 [id number] ----SPECIFIC GRAVITY 1.015 [id number] ----BLO TR [id number] ----BILIRUBIN N [id number] ----KETONES N [id number] ----GLUCOSE N [id number] Summary Purpose [employer]ClinicalWorks Submission
--- OUTSIDE RECORDS SUMMARY | 2018-11-04 21:34 | XMS REPORT ---
[...] End Date Status Dosage System Date Losartan [facility] 53210450486 50-12.5 MG Active 1 tablet Potassium-HCTZ Orally Once a day Results No Known Results Summary Purpose [employer]ClinicalWorks Submission
--- OUTSIDE RECORDS SUMMARY | 2018-11-04 21:34 | XMS REPORT ---
[...] End Date Status Dosage System Date Losartan [facility] 22287454694 50-12.5 MG February 12, Active 1 tablet Potassium-HCTZ Orally Once a 2017 day Results No Known Results Summary Purpose [employer] Submission
--- OUTSIDE RECORDS SUMMARY | 2018-11-04 21:34 | XMS REPORT ---
:1970 Author Organization [facility] Address [address] [place] [address] Dr. Holbrook [address] [place] [id number] Care Team Providers Name Role Phone DAJUAN GEORGE Unavailable Unavailable MITCHELL DOBSON Unavailable Unavailable Problems This patient has no known problems. Allergies, Adverse Reactions, Alerts This patient has no known allergies or adverse reactions. Medications This patient has no known medications. Results Test Description Test Time Test Comments Text Results Atomic Results Result Comments TISSUE EXAM 2018-06-28 08:38:00 Surgical Pathology Report Case: [id number] Authorizing Provider: Alex Ruano MD Collected: 06/24/2018801 Ordering Location: [address] Received: 06/24/2018 0809 Service Pathologist: Chon Andino MD Specimens: A) - Tumor, pituitary tumor B) - Tumor, pituitary tumor A.PITUITARY GLAND, TRANSSPHENOIDAL 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 PITUITARY GLAND, TRANSSPHENOIDAL HYPOPHYSECTOMY:NULL CELL ADENOMAENTRAPPED ADENOHYPOPHYSIS Signing Pathologist Direct Phone Line: [phone] signed by Chon Andino MD on 06/28/2018 at 8:38 AMImmunoperoxidase stains performed on the second specimen show that the tumor has no staining for growth hormone, LH, FSH, TSH, prolactin, or ACTH. 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 The MIB-1 proliferation index is less than 1%. 15685 x 2; 52532; 93270; 38475 x 6; 19041Navaxjteu adenoma A. Pituitary tumor; B. Pituitary tumorA. [...] stains. Immunohistochemistry technical testing was performed at [facility], Pathology Laboratory where it was [...] (BEAKER) (test 141 mg/dL 70-110 TESTED AT [facility] [address] [place] [address] eizz=0055) [facility] [address] POCT-GLUCOSE [id number] 12:06:00 Test Item Value Reference Range Comments POC-GLUCOSE METER (BEAKER) 217 mg/dL 70-110 TESTED AT [address] (test azzp=7508) [facility] [address] BASIC METABOLIC [id number] 07:18:00 Test Item Value Reference Range Comments SODIUM (BEAKER) (test 139 meq/L 136-145 vdni=775) POTASSIUM (BEAKER) (test 4.1 meq/L 3.5-5.1 optr=569) CHLORIDE (BEAKER) (test 105 meq/L 98-107 njnr=806) CO2 (BEAKER) (test 28 meq/L 22-29 iuqe=397) BLOOD UREA NITROGEN 11 mg/dL 7-21 (BEAKER) (test duzq=347) CREATININE (BEAKER) (test 0.69 mg/dL 0.57-1.25 lywx=892) GLUCOSE RANDOM (BEAKER) 163 mg/dL 70-105 (test kkge=496) CALCIUM (BEAKER) (test 8.6 mg/dL 8.4-10.2 wcgs=163) EGFR (BEAKER) (test 91 mL/min/1.73 sq m ESTIMATED GFR IS NOT ifuy=0866) ACCURATE CREATININE CLEARANCE IN PREDICTING GLOMERULAR FILTRATION RATE. ESTIMATED GFR IS NOT APPLICABLE FOR DIALYSIS PATIENTS. CBC W/PLT COUNT & AUTO [id number] 06:49:00 Test Item Value Reference Range Comments WHITE BLOOD CELL COUNT (BEAKER) (test wxus=208) 8.7 K/ L 3.5-10.5 RED BLOOD CELL COUNT (BEAKER) (test bejo=570) 4.82 M/ L 3.93-5.22 HEMOGLOBIN (BEAKER) (test rxao=952) 13.2 GM/DL 11.2-15.7 HEMATOCRIT (BEAKER) (test idde=132) 40.8 % 34.1-44.9 MEAN CORPUSCULAR VOLUME (BEAKER) (test gtdb=137) 84.6 fL 79.4-94.8 MEAN CORPUSCULAR HEMOGLOBIN (BEAKER) (test 27.4 pg 25.6-32.2 zqde=123) MEAN CORPUSCULAR HEMOGLOBIN CONC (BEAKER) (test 32.4 GM/DL 32.2-35.5 ygxe=475) RED CELL DISTRIBUTION WIDTH (BEAKER) (test 13.2 % 11.7-14.4 ekbb=402) PLATELET COUNT (BEAKER) (test ufyk=997) 233 K/CU MM 150-450 MEAN PLATELET VOLUME (BEAKER) (test ziqd=621) 11.5 fL 9.4-12.3 NUCLEATED RED BLOOD CELLS (BEAKER) (test 0 /100 WBC 0-0 khle=651) NEUTROPHILS RELATIVE PERCENT (BEAKER) (test 65 % bafy=142) LYMPHOCYTES RELATIVE PERCENT (BEAKER) (test 24 % rrkd=035) MONOCYTES RELATIVE PERCENT (BEAKER) (test 8 % nfsy=654) EOSINOPHILS RELATIVE PERCENT (BEAKER) (test 2 % naiq=016) BASOPHILS RELATIVE PERCENT (BEAKER) (test 0 % jkfw=766) NEUTROPHILS ABSOLUTE COUNT (BEAKER) (test 5.65 K/ L 1.56-6.13 nkid=472) LYMPHOCYTES ABSOLUTE COUNT (BEAKER) (test 2.07 K/ L 1.18-3.74 zkqf=828) MONOCYTES ABSOLUTE COUNT (BEAKER) (test 0.70 K/ L 0.24-0.36 vmna=482) EOSINOPHILS ABSOLUTE COUNT (BEAKER) (test 0.16 K/ L 0.04-0.36 zjjq=557) BASOPHILS ABSOLUTE COUNT (BEAKER) (test 0.02 K/ L 0.01-0.08 bscb=308) IMMATURE GRANULOCYTES-RELATIVE PERCENT (BEAKER) 1 % 0-1 (test atva=5155) BASIC METABOLIC [id number] 23:52:00 Test Item Value Reference Range Comments SODIUM (BEAKER) (test 139 meq/L 136-145 cpbs=710) POTASSIUM (BEAKER) (test 4.0 meq/L 3.5-5.1 Specimen slightly jesi=236) hemolyzed CHLORIDE (BEAKER) (test 103 meq/L 98-107 dxlo=812) CO2 (BEAKER) (test 28 meq/L 22-29 rjyk=165) BLOOD UREA NITROGEN 12 mg/dL 7-21 (BEAKER) (test urdn=508) CREATININE (BEAKER) (test 0.72 mg/dL 0.57-1.25 Specimen slightly dvzn=404) hemolyzed GLUCOSE RANDOM (BEAKER) 193 mg/dL 70-105 (test enbp=702) CALCIUM (BEAKER) (test 8.6 mg/dL 8.4-10.2 nwwh=000) EGFR (BEAKER) (test 86 mL/min/1.73 sq m ESTIMATED GFR IS NOT dukt=8619) ACCURATE CREATININE CLEARANCE IN PREDICTING GLOMERULAR FILTRATION RATE. ESTIMATED GFR IS NOT APPLICABLE FOR DIALYSIS PATIENTS. SODIUM, RANDOM [id number] 23:49:00 Test Item Value Reference Range Comments SODIUM URINE (BEAKER) (test hjtn=331) < meq/L Reference Range: No NormalsCBC W/PLT COUNT & AUTO [id number] 23: 35:00 Test Item Value Reference Range Comments WHITE BLOOD CELL COUNT (BEAKER) (test hkqf=021) 9.7 K/ L 3.5-10.5 RED BLOOD CELL COUNT (BEAKER) (test mpne=232) 4.46 M/ L 3.93-5.22 HEMOGLOBIN (BEAKER) (test dymd=009) 12.2 GM/DL 11.2-15.7 HEMATOCRIT (BEAKER) (test qeif=612) 37.8 % 34.1-44.9 MEAN CORPUSCULAR VOLUME (BEAKER) (test tayj=908) 84.8 fL 79.4-94.8 MEAN CORPUSCULAR HEMOGLOBIN (BEAKER) (test 27.4 pg 25.6-32.2 uwmf=212) MEAN CORPUSCULAR HEMOGLOBIN CONC (BEAKER) (test 32.3 GM/DL 32.2-35.5 zapi=954) RED CELL DISTRIBUTION WIDTH (BEAKER) (test 13.0 % 11.7-14.4 mqyc=277) PLATELET COUNT (BEAKER) (test azhv=028) 210 K/CU MM 150-450 MEAN PLATELET VOLUME (BEAKER) (test gtmp=092) 11.4 fL 9.4-12.3 NUCLEATED RED BLOOD CELLS (BEAKER) (test 0 /100 WBC 0-0 cbtz=735) NEUTROPHILS RELATIVE PERCENT (BEAKER) (test 61 % ewsd=617) LYMPHOCYTES RELATIVE PERCENT (BEAKER) (test 28 % qfmu=050) MONOCYTES RELATIVE PERCENT (BEAKER) (test 8 % ivke=889) EOSINOPHILS RELATIVE PERCENT (BEAKER) (test 2 % hqkf=856) BASOPHILS RELATIVE PERCENT (BEAKER) (test 0 % vaxp=424) NEUTROPHILS ABSOLUTE COUNT (BEAKER) (test 5.87 K/ L 1.56-6.13 wnaj=360) LYMPHOCYTES ABSOLUTE COUNT (BEAKER) (test 2.72 K/ L 1.18-3.74 rmwi=511) MONOCYTES ABSOLUTE COUNT (BEAKER) (test 0.80 K/ L 0.24-0.36 avsj=501) EOSINOPHILS ABSOLUTE COUNT (BEAKER) (test 0.22 K/ L 0.04-0.36 wzen=181) BASOPHILS ABSOLUTE COUNT (BEAKER) (test 0.03 K/ L 0.01-0.08 mtjm=962) IMMATURE GRANULOCYTES-RELATIVE PERCENT (BEAKER) 1 % 0-1 (test jera=6273) CT, BRAIN, WITHOUT [id number] 22:57:00FINAL REPORT CT Head without contrast CLINICAL [...] Gamboa Verified Date/Time: 06/26/2018 22:57:28 [address] POCT-GLUCOSE [id number] 21:07:00 Test Item Value Reference Range Comments POC-GLUCOSE METER (BEAKER) 211 mg/dL 70-110 TESTED AT [address] (test exyy=2625) [facility] [address] BASIC METABOLIC [id number] 14:29:00 Test Item Value Reference Range Comments SODIUM (BEAKER) (test 137 meq/L 136-145 jzhm=953) POTASSIUM (BEAKER) (test 3.6 meq/L 3.5-5.1 arwa=321) CHLORIDE (BEAKER) (test 100 meq/L 98-107 ibmw=694) CO2 (BEAKER) (test 32 meq/L 22-29 tlws=783) BLOOD UREA NITROGEN 12 mg/dL 7-21 (BEAKER) (test pnqt=662) CREATININE (BEAKER) (test 0.71 mg/dL 0.57-1.25 yjgp=557) GLUCOSE RANDOM (BEAKER) 182 mg/dL 70-105 (test xcur=861) CALCIUM (BEAKER) (test 8.7 mg/dL 8.4-10.2 yrvy=881) EGFR (BEAKER) (test 88 mL/min/1.73 sq m ESTIMATED GFR IS NOT pgwm=4827) ACCURATE CREATININE CLEARANCE IN PREDICTING GLOMERULAR FILTRATION RATE. ESTIMATED GFR IS NOT APPLICABLE FOR DIALYSIS PATIENTS. CBC W/PLT COUNT & AUTO [id number] 14:25:00 Test Item Value Reference Range Comments WHITE BLOOD CELL COUNT (BEAKER) (test bfsv=544) 12.3 K/ L 3.5-10.5 RED BLOOD CELL COUNT (BEAKER) (test asdl=828) 4.76 M/ L 3.93-5.22 HEMOGLOBIN (BEAKER) (test zafe=142) 13.1 GM/DL 11.2-15.7 HEMATOCRIT (BEAKER) (test hzxb=510) 40.6 % 34.1-44.9 MEAN CORPUSCULAR VOLUME (BEAKER) (test rzjs=812) 85.3 fL 79.4-94.8 MEAN CORPUSCULAR HEMOGLOBIN (BEAKER) (test 27.5 pg 25.6-32.2 enhx=406) MEAN CORPUSCULAR HEMOGLOBIN CONC (BEAKER) (test 32.3 GM/DL 32.2-35.5 nfqu=762) RED CELL DISTRIBUTION WIDTH (BEAKER) (test 13.1 % 11.7-14.4 xuta=487) PLATELET COUNT (BEAKER) (test tkij=823) 254 K/CU MM 150-450 MEAN PLATELET VOLUME (BEAKER) (test ywrw=175) 11.1 fL 9.4-12.3 NUCLEATED RED BLOOD CELLS (BEAKER) (test 0 /100 WBC 0-0 tefc=055) NEUTROPHILS RELATIVE PERCENT (BEAKER) (test 68 % jzwr=359) LYMPHOCYTES RELATIVE PERCENT (BEAKER) (test 24 % pvet=906) MONOCYTES RELATIVE PERCENT (BEAKER) (test 6 % mrem=979) EOSINOPHILS RELATIVE PERCENT (BEAKER) (test 1 % trhz=329) BASOPHILS RELATIVE PERCENT (BEAKER) (test 0 % iyhq=808) NEUTROPHILS ABSOLUTE COUNT (BEAKER) (test 8.42 K/ L 1.56-6.13 xqty=778) LYMPHOCYTES ABSOLUTE COUNT (BEAKER) (test 2.90 K/ L 1.18-3.74 dlxe=898) MONOCYTES ABSOLUTE COUNT (BEAKER) (test 0.79 K/ L 0.24-0.36 zvgz=184) EOSINOPHILS ABSOLUTE COUNT (BEAKER) (test 0.07 K/ L 0.04-0.36 jonu=537) BASOPHILS ABSOLUTE COUNT (BEAKER) (test 0.05 K/ L 0.01-0.08 hmjk=566) IMMATURE GRANULOCYTES-RELATIVE PERCENT (BEAKER) 1 % 0-1 (test yqka=8198) POCT-GLUCOSE [id number] 13:38:00 Test Item Value Reference Range Comments POC-GLUCOSE METER (BEAKER) 219 mg/dL 70-110 TESTED AT [address] (test nrfn=2509) [place] [address] POCT-GLUCOSE [id number] 12:34:00 Test Item Value Reference Range Comments POC-GLUCOSE METER (BEAKER) 193 mg/dL 70-110 TESTED AT [address] (test tazu=9305) [place] [address] POCT-GLUCOSE [id number] 16:17:00 Test Item Value Reference Range Comments POC-GLUCOSE METER (BEAKER) 244 mg/dL 70-110 TESTED AT [address] (test kczr=0872) [place] [address] POCT-GLUCOSE [id number] 12:08:00 Test Item Value Reference Range Comments POC-GLUCOSE METER (BEAKER) 229 mg/dL 70-110 TESTED AT [address] (test rlvu=5259) [place] [address] POCT-GLUCOSE [id number] 08:27:00 Test Item Value Reference Range Comments POC-GLUCOSE METER (BEAKER) 280 mg/dL 70-110 TESTED AT [address] (test aonm=9298) [facility] [address] OSMOLALITY, [id number] 05:16:00 Test Item Value Reference Range Comments OSMOLALITY URINE (BEAKER) (test xlre=152) 340 mOsm/kg 40-1,400 SPECIFIC GRAVITY, [id number] 04:53:00 Test Item Value Reference Range Comments SPECIFIC GRAVITY UA (BEAKER) (test rsaf=821) 1.010 1.001-1.035 POCT-GLUCOSE [id number] 22:29:00 Test Item Value Reference Range Comments POC-GLUCOSE METER (BEAKER) 257 mg/dL 70-110 TESTED AT [address] (test sbch=3581) [place] [address] BASIC METABOLIC [id number] 17:49:00 Test Item Value Reference Range Comments SODIUM (BEAKER) (test 137 meq/L 136-145 fxuw=412) POTASSIUM (BEAKER) (test 4.6 meq/L 3.5-5.1 fnbt=337) CHLORIDE (BEAKER) (test 102 meq/L 98-107 bryt=097) CO2 (BEAKER) (test 26 meq/L 22-29 pzhw=951) BLOOD UREA NITROGEN 14 mg/dL 7-21 (BEAKER) (test ozhs=157) CREATININE (BEAKER) (test 0.78 mg/dL 0.57-1.25 bhwd=651) GLUCOSE RANDOM (BEAKER) 246 mg/dL 70-105 (test wxwp=231) CALCIUM (BEAKER) (test 8.7 mg/dL 8.4-10.2 ngir=746) EGFR (BEAKER) (test 79 mL/min/1.73 sq m ESTIMATED GFR IS NOT yqsc=6058) ACCURATE CREATININE CLEARANCE IN PREDICTING GLOMERULAR FILTRATION RATE. ESTIMATED GFR IS NOT APPLICABLE FOR DIALYSIS PATIENTS. POCT-GLUCOSE [id number] 17:02:00 Test Item Value Reference Range Comments POC-GLUCOSE METER (BEAKER) 235 mg/dL 70-110 TESTED AT [address] (test btuw=6764) [place] [address] POCT-GLUCOSE [id number] 12:06:00 Test Item Value Reference Range Comments POC-GLUCOSE METER (BEAKER) 249 mg/dL 70-110 TESTED AT [address] (test oedc=1840) [place] [address] POCT-GLUCOSE [id number] 09:40:00 Test Item Value Reference Range Comments POC-GLUCOSE METER (BEAKER) 278 mg/dL 70-110 TESTED AT [address] (test ncxx=0772) [place] [address] BASIC METABOLIC [id number] 06:14:00 Test Item Value Reference Range Comments SODIUM (BEAKER) (test 141 meq/L 136-145 hpmx=476) POTASSIUM (BEAKER) (test 4.1 meq/L 3.5-5.1 vqii=777) CHLORIDE (BEAKER) (test 104 meq/L 98-107 tmjw=588) CO2 (BEAKER) (test 30 meq/L 22-29 dnny=469) BLOOD UREA NITROGEN 14 mg/dL 7-21 (BEAKER) (test boko=388) CREATININE (BEAKER) (test 0.70 mg/dL 0.57-1.25 rmtq=436) GLUCOSE RANDOM (BEAKER) 146 mg/dL 70-105 (test dzjg=279) CALCIUM (BEAKER) (test 9.4 mg/dL 8.4-10.2 knio=494) EGFR (BEAKER) (test 89 mL/min/1.73 sq m ESTIMATED GFR IS NOT lnss=8628) ACCURATE CREATININE CLEARANCE IN PREDICTING GLOMERULAR FILTRATION RATE. ESTIMATED GFR IS NOT APPLICABLE FOR DIALYSIS PATIENTS. [id number] 06:03:00 Test Item Value Reference Range Comments PROTIME (BEAKER) (test fjeg=978) 13.8 seconds 11.7-14.7 INR (BEAKER) (test mwuo=665) 1.1 <=5.9 PARTIAL THROMBOPLASTIN TIME (BEAKER) (test 32.0 seconds 22.5-36.0 nsez=094) RECOMMENDED COUMADIN/WARFARIN INR THERAPY RANGESSTANDARD DOSE: 2.0 - 3.0 Includes: PROPHYLAXIS forvenous thrombosis, systemic embolization; TREATMENT for venous thrombosis and/or pulmonary embolus.HIGH RISK: Target INR is 2.5-3.5 for patients with mechanical heart valves. SCREEN, [id number] 05: 59:00 Test Item Value Reference Range Comments TEST URINE (BEAKER) (test qhyj=787) Negative POCT-GLUCOSE [id number] 05:46:00 Test Item Value Reference Range Comments POC-GLUCOSE METER (BEAKER) 140 mg/dL 70-110 TESTED AT [facility] [address] [facility] (test jxxb=1338) [facility] [address] CBC W/PLT COUNT & AUTO [id number] 05:46:00 Test Item Value Reference Range Comments WHITE BLOOD CELL COUNT (BEAKER) (test watz=399) 9.6 K/ L 3.5-10.5 RED BLOOD CELL COUNT (BEAKER) (test gzju=761) 5.00 M/ L 3.93-5.22 HEMOGLOBIN (BEAKER) (test dkul=678) 14.0 GM/DL 11.2-15.7 HEMATOCRIT (BEAKER) (test quki=973) 42.1 % 34.1-44.9 MEAN CORPUSCULAR VOLUME (BEAKER) (test qdyl=810) 84.2 fL 79.4-94.8 MEAN CORPUSCULAR HEMOGLOBIN (BEAKER) (test 28.0 pg 25.6-32.2 iuuy=016) MEAN CORPUSCULAR HEMOGLOBIN CONC (BEAKER) (test 33.3 GM/DL 32.2-35.5 xlqe=427) RED CELL DISTRIBUTION WIDTH (BEAKER) (test 13.0 % 11.7-14.4 nwen=756) PLATELET COUNT (BEAKER) (test xnrb=230) 227 K/CU MM 150-450 MEAN PLATELET VOLUME (BEAKER) (test oqln=124) 11.8 fL 9.4-12.3 NUCLEATED RED BLOOD CELLS (BEAKER) (test 0 /100 WBC 0-0 ejvr=332) NEUTROPHILS RELATIVE PERCENT (BEAKER) (test 52 % pbpb=587) LYMPHOCYTES RELATIVE PERCENT (BEAKER) (test 38 % llqn=013) MONOCYTES RELATIVE PERCENT (BEAKER) (test 6 % yghh=284) EOSINOPHILS RELATIVE PERCENT (BEAKER) (test 3 % kcli=250) BASOPHILS RELATIVE PERCENT (BEAKER) (test 1 % lkuv=914) NEUTROPHILS ABSOLUTE COUNT (BEAKER) (test 5.03 K/ L 1.56-6.13 fbtv=694) LYMPHOCYTES ABSOLUTE COUNT (BEAKER) (test 3.62 K/ L 1.18-3.74 kxzz=222) MONOCYTES ABSOLUTE COUNT (BEAKER) (test 0.62 K/ L 0.24-0.36 qthq=419) EOSINOPHILS ABSOLUTE COUNT (BEAKER) (test 0.27 K/ L 0.04-0.36 getz=822) BASOPHILS ABSOLUTE COUNT (BEAKER) (test 0.05 K/ L 0.01-0.08 llos=278) IMMATURE GRANULOCYTES-RELATIVE PERCENT (BEAKER) 1 % 0-1 (test fgdh=7922) POCT-GLUCOSE [id number] 21:27:00 Test Item Value Reference Range Comments POC-GLUCOSE METER (BEAKER) 223 mg/dL 70-110 TESTED AT [address] (test rqug=7187) [place] [address] POCT-GLUCOSE [id number] 17:26:00 Test Item Value Reference Range Comments POC-GLUCOSE METER (BEAKER) 223 mg/dL 70-110 TESTED AT [address] (test ieaa=6490) [place] [address] BASIC METABOLIC [id number] 16:43:00 Test Item Value Reference Range Comments SODIUM (BEAKER) (test 139 meq/L 136-145 npbb=843) POTASSIUM (BEAKER) (test 4.5 meq/L 3.5-5.1 Specimen slightly gdyq=140) hemolyzed CHLORIDE (BEAKER) (test 102 meq/L 98-107 pvym=624) CO2 (BEAKER) (test 29 meq/L 22-29 bffh=402) BLOOD UREA NITROGEN 16 mg/dL 7-21 (BEAKER) (test ftql=349) CREATININE (BEAKER) (test 0.76 mg/dL 0.57-1.25 Specimen slightly ashb=190) hemolyzed GLUCOSE RANDOM (BEAKER) 217 mg/dL 70-105 (test qkre=837) CALCIUM (BEAKER) (test 9.6 mg/dL 8.4-10.2 msvg=748) EGFR (BEAKER) (test 81 mL/min/1.73 sq m ESTIMATED GFR IS NOT lrfc=7238) ACCURATE CREATININE CLEARANCE IN PREDICTING GLOMERULAR FILTRATION RATE. ESTIMATED GFR IS NOT APPLICABLE FOR DIALYSIS PATIENTS. POCT-GLUCOSE [id number] 09:06:00 Test Item Value Reference Range Comments POC-GLUCOSE METER (BEAKER) 265 mg/dL 70-110 TESTED AT [address] (test vmcu=3056) [place] [address] POCT-GLUCOSE [id number] 00:22:00 Test Item Value Reference Range Comments POC-GLUCOSE METER (BEAKER) 210 mg/dL 70-110 TESTED AT [address] (test mizh=2505) [place] [address] POCT-GLUCOSE [id number] 20:27:00 Test Item Value Reference Range Comments POC-GLUCOSE METER (BEAKER) 235 mg/dL 70-110 TESTED AT [address] (test nggt=5900) [place] [address] POCT-GLUCOSE [id number] 17:10:00 Test Item Value Reference Range Comments POC-GLUCOSE METER (BEAKER) 264 mg/dL 70-110 TESTED AT [address] (test ogqj=5414) [place] [address] POCT-GLUCOSE [id number] 16:00:00 Test Item Value Reference Range Comments POC-GLUCOSE METER (BEAKER) 242 mg/dL 70-110 TESTED AT [address] (test ibod=0785) [place] [address] POCT-GLUCOSE [id number] 08:54:00 Test Item Value Reference Range Comments POC-GLUCOSE METER (BEAKER) 224 mg/dL 70-110 TESTED AT [address] (test ofvz=6610) [place] [address] POCT-GLUCOSE [id number] 21:30:00 Test Item Value Reference Range Comments POC-GLUCOSE METER (BEAKER) 254 mg/dL 70-110 TESTED AT [address] (test ivwd=2961) [place] [address] POCT-GLUCOSE [id number] 17:23:00 Test Item Value Reference Range Comments POC-GLUCOSE METER (BEAKER) 193 mg/dL 70-110 TESTED AT [address] (test ouqb=1659) [place] [address] POCT-GLUCOSE [id number] 11:53:00 Test Item Value Reference Range Comments POC-GLUCOSE METER (BEAKER) 179 mg/dL 70-110 TESTED AT [address] (test lfkc=6544) [place] [address] [id number] 10:15:00 Test Item Value Reference Range Comments CORTISOL, TOTAL (BEAKER) (test ewwd=3872) 4.7 ug/dL 3.7-19.4 POCT-GLUCOSE [id number] 08:07:00 Test Item Value Reference Range Comments POC-GLUCOSE METER (BEAKER) 184 mg/dL 70-110 TESTED AT [address] (test ptnf=6344) [place] [address] CT, BRAIN, WITHOUT [id number] 22:07:00FINAL REPORT CT Head without contrast CLINICAL [...] [place] Verified Date/Time: 06/20/2018 22:07:25 Reading Location: [address] Transitional Reading Room POCT-GLUCOSE [id number] 21:00:00 Test Item Value Reference Range Comments POC-GLUCOSE METER (BEAKER) 227 mg/dL 70-110 TESTED AT [address] (test egaz=7788) [place] [address] POCT-GLUCOSE [id number] 16:57:00 Test Item Value Reference Range Comments POC-GLUCOSE METER (BEAKER) 216 mg/dL 70-110 TESTED AT [address] (test arsf=1921) [place] [address] POCT-GLUCOSE [id number] 13:11:00 Test Item Value Reference Range Comments POC-GLUCOSE METER (BEAKER) 198 mg/dL 70-110 TESTED AT [address] (test ivrt=1040) [place] [id number] POCT-GLUCOSE [id number] 07:47:00 Test Item Value Reference Range Comments POC-GLUCOSE METER (BEAKER) 213 mg/dL 70-110 TESTED AT [address] (test inrn=7590) [place] [address] BASIC METABOLIC [id number] 06:57:00 Test Item Value Reference Range Comments SODIUM (BEAKER) (test 138 meq/L 136-145 fixe=197) POTASSIUM (BEAKER) (test 3.9 meq/L 3.5-5.1 bsbe=188) CHLORIDE (BEAKER) (test 105 meq/L 98-107 ljyy=729) CO2 (BEAKER) (test 24 meq/L 22-29 pujr=652) BLOOD UREA NITROGEN 12 mg/dL 7-21 (BEAKER) (test qsyw=815) CREATININE (BEAKER) (test 0.73 mg/dL 0.57-1.25 givz=531) GLUCOSE RANDOM (BEAKER) 192 mg/dL 70-105 (test zsij=702) CALCIUM (BEAKER) (test 8.8 mg/dL 8.4-10.2 uxru=127) EGFR (BEAKER) (test 85 mL/min/1.73 sq m ESTIMATED GFR IS NOT fqym=5964) ACCURATE CREATININE CLEARANCE IN PREDICTING GLOMERULAR FILTRATION RATE. ESTIMATED GFR IS NOT APPLICABLE FOR DIALYSIS PATIENTS. POCT-GLUCOSE [id number] 05:24:00 Test Item Value Reference Range Comments POC-GLUCOSE METER (BEAKER) 192 mg/dL 70-110 TESTED AT [facility] [address] [facility] (test vzrf=8317) [facility] [address] [address], [place] [id number] 01:03:00FINAL REPORT CLINICAL HISTORY: Stroke TECHNIQUE: Initially, [...] Verified Date/ Time: 06/20/2018 01:03:44 Reading Location: [address] Transitional Reading Room [facility], [place], [id number] 01:03:00FINAL REPORT CLINICAL HISTORY: Stroke TECHNIQUE: Initially, [...] Verified Date/ Time: 06/20/2018 01:03:44 Reading Location: [address] Reading Room POCT-GLUCOSE [id number] 00:40:00 Test Item Value Reference Range Comments POC-GLUCOSE METER (BEAKER) 283 mg/dL 70-110 TESTED AT [address] (test hijx=1255) [facility] [address] POCT-GLUCOSE [id number] 21:21:00 Test Item Value Reference Range Comments POC-GLUCOSE METER (BEAKER) 343 mg/dL 70-110 TESTED AT [address] (test lwyt=4071) [facility] [address] SCREEN, [id number] 18:52:00 Test Item Value Reference Range Comments TEST URINE (BEAKER) (test epew=713) Negative POCT-GLUCOSE [id number] 17:17:00 Test Item Value Reference Range Comments POC-GLUCOSE METER (BEAKER) 287 mg/dL 70-110 TESTED AT [facility] [address] [facility] (test hfhf=5939) [facility] [address] [id number] 15:59:00 Test Item Value Reference Range Comments RPR SCREEN (BEAKER) (test czml=110) Nonreactive Nonreactive POCT-GLUCOSE [id number] 15:07:00 Test Item Value Reference Range Comments POC-GLUCOSE METER (BEAKER) 323 mg/dL 70-110 TESTED AT [address] (test tfac=5794) [place] [id number] T4, [id number] 13:11:00 Test Item Value Reference Range Comments FREE T4 (BEAKER) (test uzuw=502) 0.89 ng/dL 0.70-1.48 HIV-1 ANTIGEN WITH HIV-1/2 [id number] 13:11:00 Test Item Value Reference Range Comments HIV-1 ANTIGEN WITH HIV 1\\T\\2 ANTIBODY (2) Nonreactive Nonreactive (BEAKER) (test milt=0393) RAPID DRUG SCREEN, [id number] 12:47:00 Test Item Value Reference Range Comments BARBITURATE URINE (BEAKER) (test kest=759) Negative Negative BENZODIAZEPINE SCREEN URINE (BEAKER) (test Negative Negative ejmr=472) COCAINE (METAB.) SCREEN (BEAKER) (test ante=0787) Negative Negative METHADONE SCREEN (BEAKER) (test kggv=9373) Negative Negative OPIATE SCREEN URINE (BEAKER) (test cmhh=311) Negative Negative CANNABINOID SCREEN URINE (BEAKER) (test xspe=726) Negative Negative AMPH/METHAMPH SCREEN (BEAKER) (test zuao=3713) Negative Negative PHENCYCLIDINE SCREEN URINE (BEAKER) (test trjm=758) Negative Negative OXYCODONE SCREEN URINE (BEAKER) (test pqvn=7742) Negative Negative DRUG CUTOFF CONC.Cocaine 300 ng/mL Cannabinoid 50 ng/mL Benzodiazepine 200 ng/mLBarbiturate 200 ng/ mLPhencyclidine 25 ng/mLOpiate 300 ng/mLMethadone 300 ng/mLAmphetamine/ 1000 ng/mL MethamphetamineOxycodone 300 ng/mLThis assay provides an unconfirmed qualitative test result for the clinical management of patients in emergency situations. Chain of custody not maintained. Some ozhn-nag-brzpqoa medications, as well as adulterants, may cause inaccurate results. Clinical correlation should be applied. A more comprehensive drug screen or confirmation of a detected drug may be performed upon request.POCT-GLUCOSE [id number] 12:37:00 Test Item Value Reference Range Comments POC-GLUCOSE METER (BEAKER) 292 mg/dL 70-110 TESTED AT [facility] [address] [facility] (test yduk=1919) [facility] [address] HEMOGLOBIN [id number] 12:35:00 Test Item Value Reference Range Comments HEMOGLOBIN A1C (BEAKER) (test hzwk=307) 7.9 % 4.3-6.1 OSMOLALITY, [id number] 12:34:00 Test Item Value Reference Range Comments OSMOLALITY, SERUM (BEAKER) (test qhvp=998) 310 mOsm/kg 275-295 C-REACTIVE [id number] 12:28:00 Test Item Value Reference Range Comments C-REACTIVE PROTEIN (BEAKER) (test oanq=831) 0.81 mg/dL 0.00-0.50 OSMOLALITY, [id number] 12:22:00 Test Item Value Reference Range Comments OSMOLALITY URINE (BEAKER) (test xfkr=073) 247 mOsm/kg 40-1,400 CBC W/PLT COUNT & AUTO [id number] 12:14:00 Test Item Value Reference Range Comments WHITE BLOOD CELL COUNT (BEAKER) (test bxsz=389) 15.1 K/ L 3.5-10.5 RED BLOOD CELL COUNT (BEAKER) (test xtjn=180) 5.15 M/ L 3.93-5.22 HEMOGLOBIN (BEAKER) (test uezq=454) 14.1 GM/DL 11.2-15.7 HEMATOCRIT (BEAKER) (test uixb=206) 42.3 % 34.1-44.9 MEAN CORPUSCULAR VOLUME (BEAKER) (test knqr=473) 82.1 fL 79.4-94.8 MEAN CORPUSCULAR HEMOGLOBIN (BEAKER) (test 27.4 pg 25.6-32.2 clez=267) MEAN CORPUSCULAR HEMOGLOBIN CONC (BEAKER) (test 33.3 GM/DL 32.2-35.5 rdfx=626) RED CELL DISTRIBUTION WIDTH (BEAKER) (test 12.9 % 11.7-14.4 tpmn=876) PLATELET COUNT (BEAKER) (test jqzo=394) 278 K/CU MM 150-450 MEAN PLATELET VOLUME (BEAKER) (test zgqf=977) 11.5 fL 9.4-12.3 NUCLEATED RED BLOOD CELLS (BEAKER) (test 0 /100 WBC 0-0 qilz=595) NEUTROPHILS RELATIVE PERCENT (BEAKER) (test 87 % msgp=997) LYMPHOCYTES RELATIVE PERCENT (BEAKER) (test 10 % bnqk=029) MONOCYTES RELATIVE PERCENT (BEAKER) (test 3 % ibhh=482) EOSINOPHILS RELATIVE PERCENT (BEAKER) (test 0 % akdm=990) BASOPHILS RELATIVE PERCENT (BEAKER) (test 0 % spra=202) NEUTROPHILS ABSOLUTE COUNT (BEAKER) (test 13.06 K/ L 1.56-6.13 heon=990) LYMPHOCYTES ABSOLUTE COUNT (BEAKER) (test 1.51 K/ L 1.18-3.74 rpyv=671) MONOCYTES ABSOLUTE COUNT (BEAKER) (test 0.38 K/ L 0.24-0.36 lvbq=707) EOSINOPHILS ABSOLUTE COUNT (BEAKER) (test 0.00 K/ L 0.04-0.36 ptib=379) BASOPHILS ABSOLUTE COUNT (BEAKER) (test 0.02 K/ L 0.01-0.08 kxkb=700) IMMATURE GRANULOCYTES-RELATIVE PERCENT (BEAKER) 1 % 0-1 (test sejd=4496) POCT-GLUCOSE [id number] 10:30:00 Test Item Value Reference Range Comments POC-GLUCOSE METER (BEAKER) 341 mg/dL 70-110 TESTED AT [address] (test scmh=5493) [facility] [address] [id number] 06:17:00 Test Item Value Reference Range Comments PROLACTIN (BEAKER) (test cefo=899) 23.34 ng/mL 5.18-26.53 POCT-GLUCOSE [id number] 05:55:00 Test Item Value Reference Range Comments POC-GLUCOSE METER (BEAKER) 285 mg/dL 70-110 TESTED AT [address] (test cvwa=4944) [facility] [id number] MR, BRAIN, [id number] 02:25:00Pituitary protocolCr 0.6FINAL REPORT MRI brain with and without contrast Comparison: None. 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 Discussion: Multiplanar MR imaging of the brain and sella was provided [id number]-[id number] IV gadolinium administration using T1, T2, FLAIR, [...] MDReport Verified Date/Time: 06/19/2018 02:25:15 Reading Location: [address] Body Reading Room TSH/FREE T4 IF [id number] 00:26:00 Test Item Value Reference Range Comments THYROID STIMULATING HORMONE (BEAKER) (test 0.41 uIU/mL 0.35-4.94 pelf=529) BASIC METABOLIC [id number] 00:07:00 Test Item Value Reference Range Comments SODIUM (BEAKER) (test 136 meq/L 136-145 bqir=029) POTASSIUM (BEAKER) (test 4.0 meq/L 3.5-5.1 efvl=328) CHLORIDE (BEAKER) (test 103 meq/L 98-107 qjfz=022) CO2 (BEAKER) (test 20 meq/L 22-29 dgff=417) BLOOD UREA NITROGEN 11 mg/dL 7-21 (BEAKER) (test vcii=528) CREATININE (BEAKER) (test 0.84 mg/dL 0.57-1.25 ddgu=136) GLUCOSE RANDOM (BEAKER) 357 mg/dL 70-105 (test kupi=490) CALCIUM (BEAKER) (test 9.0 mg/dL 8.4-10.2 alns=093) EGFR (BEAKER) (test 72 mL/min/1.73 sq m ESTIMATED GFR IS NOT ivnp=1557) ACCURATE CREATININE CLEARANCE IN PREDICTING GLOMERULAR FILTRATION RATE. ESTIMATED GFR IS NOT APPLICABLE FOR DIALYSIS PATIENTS. URINALYSIS W/ REFLEX URINE [id number] 23:13:00 Test Item Value Reference Range Comments COLOR (BEAKER) (test hvjq=339) Yellow CLARITY (BEAKER) (test xnfm=853) Clear SPECIFIC GRAVITY UA (BEAKER) (test hkuy=499) 1.011 1.001-1.035 PH UA (BEAKER) (test ilit=871) 5.0 5.0-8.0 PROTEIN UA (BEAKER) (test lysn=825) Negative Negative GLUCOSE UA (BEAKER) (test mykz=993) >1000 mg/dL Negative KETONES UA (BEAKER) (test uafw=967) 20 mg/dL Negative BILIRUBIN UA (BEAKER) (test givy=849) Negative Negative BLOOD UA (BEAKER) (test jgzq=162) Negative Negative NITRITE UA (BEAKER) (test dpfu=250) Negative Negative LEUKOCYTE ESTERASE UA (BEAKER) (test kyjb=816) Negative Negative UROBILINOGEN UA (BEAKER) (test ptap=966) 0.2 mg/dL 0.2-1.0 RBC UA (BEAKER) (test qjan=225) < /HPF WBC UA (BEAKER) (test phrd=113) < /HPF SQUAMOUS EPITHELIAL (BEAKER) (test abfd=955) < /HPF SOURCE(BEAKER) (test hsqa=1051)
--- OUTSIDE RECORDS SUMMARY | 2018-11-04 21:34 | XMS REPORT ---
[...] Status Dosage System Date Date Amlodipine ND 58296215275 10 MG Orally Active 1 tablet Besylate Once a day MetFORMIN HCl ER ND 48603925491 750 MG Orally Active 1 tablet Once a day with evening meal Levothyroxine ND 35175127377 88 MCG Oral Active TAKE 1 Sodium TABLET BY MOUTH EVERY MORNING Hydrocortisone ND 89909342979 10 MG Orally Active 1 tablet every 12 hrs with food or milk Losartan ND 68374125196 50 MG Orally Active 1 tablet Potassium Once a day GlyBURIDE [facility] [address]-97 5 MG Orally Active 1/2 tablet BID with breakfast or the first main meal of the day Trulicity [facility] 24649966081 0.75mg/0.5ml October Active one SQ once a week , , injection 2018 2018 Fluconazole [facility] 10623223029 150 MG Orally October Active 1 tablet Once a day 2018 2019 Results Name Result Date Reference Range Unit Abnormality Flag HEMOGLOBIN A1C ----A1C 9.8 [id number] Summary Purpose eClinicalWorks Submission
--- OUTSIDE RECORDS SUMMARY | 2018-11-04 21:34 | XMS REPORT ---
[...] Status Dosage System Date Date Atorvastatin Calcium [facility] 84799301070 10 MG Oral Active TAKE 1 TABLET BY MOUTH AT BEDTIME. ProAir HFA [facility] 15235619592 108 (90 Base) Active USE 1-2 MCG/ACT PUFFS BY Inhalation MOUTH EVERY 4-6 HOURS Levothyroxine Sodium ND 18565802335 88 MCG Oral Active TAKE 1 TABLET BY MOUTH EVERY MORNING Valsartan-Hydrochlor ND 37271717456 80-12.5 MG Active TAKE 1 othiazide Oral TABLET BY MOUTH EVERY DAY Benzonatate ND 61595186161 200 MG Oral Active TAKE ONE CAPSULE BY MOUTH 3 TIMES A DAY NEEDED FOR COUGH MethylPREDNISolone ND 47640576297 4 MG Oral Active TAKE 6 TABLETS ON DAY 1 DIRECTED ON PACKAGE AND DECREASE BY 1 TAB EACH DAY FOR A TOTAL OF 6 DAYS GlyBURIDE ND 10920348069 5 MG Orally Iraida Active 1 tablet Once a day 2017 breakfast or the first main meal of the day MetFORMIN HCl ER ND 82082539683 750 MG Oral Active TAKE 1 TABLET BY MOUTH 2 TIMES DAILY BEFORE BREAKFAST AND DINNER. Results No Known Results Summary Purpose eClinicalWorks Submission
[2018-11-04] MEDS ORDERED: BUPIVACAINE 0.5% PF 10 ML VIAL ONE ×2 (23:14→23:15)
[2018-11-04] MEDS ORDERED: LIDOCAINE 1% MPF 2 ML AMPULE ONE (23:14)
[2018-11-04] MEDS ORDERED: LIDOCAINE 1% MPF 5 ML VIAL ONE (23:15)
--- NOTE | 2018-11-05 00:33 | EDPHYS ---
Physician Documentation [facility] Name: Chantal Stout Age: 48 yrs Sex: Female : 1970 Arrival Date: 11/04/2018 Time: 21:30 Bed 6 Private MD: ED Physician Jl Gonzales HPI: 11/05 00:00 This 48 yrs old Female presents to ER via Ambulatory with complaints of pm1 Toothache. 00:00 The patient presents with pain. The patient presents with swelling. The problem is pm1 located in the upper right lateral incisor. Onset: The symptoms/episode began/occurred 4 day(s) ago. Duration: The symptoms are continuous. Modifying factors: The symptoms are alleviated by nothing, the symptoms are aggravated by nothing. Associated signs and symptoms: Pertinent negatives: fever, inability to eat. Severity of symptoms: in the emergency department the symptoms are actually worse. The patient has not experienced similar symptoms in the past. The patient has been recently seen at the [facility] Emergency Department, yesterday, for similar complaints. 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 LMP N/A - Irregular menses lp1 Historical: - Allergies: 22:04 Bactrim; lp1 22:04 Cephalexin; lp1 22:04 Codeine; lp1 22:04 Iodine; lp1 22:04 Levaquin; lp1 22:04 Sulfa (Sulfonamide Antibiotics); lp1 - Home Meds: 22:04 amlodipine 10 mg tab 1 tab once daily [Active]; glyburide 5 mg Oral tab 1 tab once lp1 daily [Active]; hydrocortisone 10 mg Oral tab 1 tab 2 times per day [Active]; levothyroxine 75 mcg tab 1 tab once daily [Active]; losartan 50 mg Oral tab 1 tab once daily [Active]; metformin 750 mg Oral Tb24 1 tab twice a day [Active]; omeprazole 20 mg Oral cpDR 1 cap once daily [Active]; Xhance [Active]; - PMHx: 22:04 Anemia; Asthma; Diabetes - NIDDM; Hypertension; Hypothyroidism; pituitary tumor- lp1 surgically removed Jun 24; - Immunization history:: Adult Immunizations up to date. - Social history:: Smoking status: Patient/guardian denies using tobacco. - Ebola Screening: : No symptoms or risks identified at this time. ROS: 11/05 00:00 Constitutional: Negative for fever, chills, and weight loss, Eyes: Negative for injury, pm1 pain, redness, and discharge. Neck: Negative for injury, pain, and swelling, Cardiovascular: Negative for chest pain, palpitations, and edema, Respiratory: Negative for shortness of breath, cough, wheezing, and pleuritic chest pain, Abdomen/GI: Negative for abdominal pain, nausea, vomiting, diarrhea, and constipation, Back: Negative for injury and pain, : Negative for injury, bleeding, discharge, and swelling, MS/Extremity: Negative for injury and deformity, Skin: Negative for injury, rash, and discoloration, Neuro: Negative for headache, weakness, numbness, tingling, and seizure. ENT: Positive for dental pain, Negative for sore throat, difficulty swallowing, difficulty handling secretions, hoarseness. Exam: 00:00 Constitutional: This is a well developed, well nourished patient who is awake, alert, pm1 and in no acute distress. Head/Face: Normocephalic, atraumatic. Eyes: Pupils equal round and reactive to light, extra-ocular motions intact. Lids and lashes normal. Conjunctiva and sclera are non-icteric and not injected. Cornea within normal limits. Periorbital areas with no swelling, redness, or edema. 00:00 Neck: Trachea midline, no thyromegaly or masses palpated, and no cervical lymphadenopathy. Supple, full range of motion without nuchal rigidity, or vertebral point tenderness. No Meningismus. Chest/axilla: Normal chest wall appearance and motion. Nontender with no deformity. No lesions are appreciated. Cardiovascular: Regular rate and rhythm with a normal S1 and S2. No gallops, murmurs, or rubs. Normal PMI, no JVD. No pulse deficits. Respiratory: Lungs have equal breath sounds bilaterally, clear to auscultation and percussion. No rales, rhonchi or wheezes noted. No increased work of breathing, no retractions or nasal flaring. Abdomen/GI: Soft, non-tender, with normal bowel sounds. No distension or tympany. No guarding or rebound. No evidence of tenderness throughout. Back: No spinal tenderness. No costovertebral tenderness. Full range of motion. Skin: Warm, dry with normal turgor. Normal color with no rashes, no lesions, and no evidence of cellulitis. MS/ Extremity: Pulses equal, no cyanosis. Neurovascular intact. Full, normal range of motion. 00:00 ENT: External ear(s): are unremarkable, Ear canal(s): are normal, Nose: is normal, Dental exam: abscess, that is mild, specifically in the upper right lateral incisor. 00:00 Neuro: Orientation: is normal, Motor: is normal, moves all fours. Vital Signs: 11/04 22:02 BP 139 / 92; Pulse 83; Resp 18; Temp 98.6(O); Pulse Ox 97% on R/A; Weight 127.91 kg; lp1 Height 5 ft. 4 in. (162.56 cm); Pain 10/10; 22:57 BP 155 / 94; Pulse 92; Resp 18; Pulse Ox 97% on R/A; Pain 10/10; ak1 11/05 00:50 BP 138 / 82; Pulse 80; Resp 18; Pulse Ox 99% ; ea 11/04 22:02 Body Mass Index 48.40 (127.91 kg, 162.56 cm) lp1 Procedures: 00:31 I \T\ D: Incision and drainage was performed for an abscess of the right upper right pm1 lateral incisor Anesthetized with 1 % lidocaine with marcaine 0.5%. Incised with 18 gauge needle. Drained small amount serosanguinous fluid. the patient tolerated the procedure well. MDM: 11/04 22:54 Patient medically screened. pm1 11/05 00:31 Data reviewed: vital signs. Data interpreted: Pulse oximetry: on room air is 97 %. pm1 Interpretation: normal. Counseling: I had a detailed discussion with the patient and/or guardian regarding: the historical points, exam findings, and any diagnostic results supporting the discharge/admit diagnosis, the need for outpatient follow up, for definitive care, a dentist, to return to the emergency department if symptoms worsen or persist or if there are any questions or concerns that arise at home. Administered Medications: 00:16 Drug: Lidocaine (1 %) 5 mg {Note: administered by provider.} Route: Infiltration; ea 00:16 Drug: Marcaine (0.5 %) 10 ml {Note: administered by provider.} Volume: 10 ml; Route: ea Infiltration; Disposition: 03:08 Co-signature as Attending Physician, Jl Gonzales MD. pkl Disposition: 11/05/18 00:33 Discharged to Home. Impression: Periapical abscess without sinus. - Condition is Stable. - Discharge Instructions: Dental Abscess, Dental Pain. - Medication Reconciliation Form, Thank You Letter, Antibiotic Education, Prescription Opioid Use form. - Follow up: Emergency Department; When: As needed; Reason: Worsening of condition. Follow up: Private Physician; When: 2 - 3 days; Reason: Recheck today's complaints, Continuance of care, Re-evaluation by your physician. - Problem is new. - Symptoms have improved. Signatures: Jl Gonzales MD MD pkl Rose Ludwig, RN RN lp1 Jonatan Chao NP CAUSTIC STRENGTH INSPECTOR pm1 Gabbie Bay RN RN logan Corrections: (The following items were deleted from the chart) 01:03 00:33 11/05/2018 00:33 Discharged to Home. Impression: Periapical abscess without ea sinus. Condition is Stable. Forms are Medication Reconciliation Form, Thank You Letter, Antibiotic Education, Prescription Opioid Use. Follow up: Emergency Department; When: As needed; Reason: Worsening of condition. Follow up: Private Physician; When: 2 - 3 days; Reason: Recheck today's complaints, Continuance of care, Re-evaluation by your physician. Problem is new. Symptoms have improved. pm1
--- NOTE | 2018-11-05 00:33 | ER ---
Nurse's Notes [facility] Name: Chantal Stout Age: 48 yrs Sex: Female : 1970 Arrival Date: 11/04/2018 Time: 21:30 Bed 6 Private MD: Diagnosis: Periapical abscess without sinus Presentation: 11/04 22:00 Presenting complaint: Patient states: Pain and discomfort to tooth, rotted; Scheduled lp1 for extraction on but pain unbearable; patient currently taking Amoxicillin and Doxycycline; Patient states diarrhea and nausea due to antibiotics. Transition of care: patient was not received from another setting of care. Onset of symptoms was November 04, 2018. Risk Assessment: Do you want to hurt yourself or someone else? Patient reports no desire to harm self or others. Initial Sepsis Screen: Does the patient meet any 2 criteria? No. Patient's initial sepsis screen is negative. Does the patient have a suspected source of infection? No. Patient's initial sepsis screen is negative. Care prior to arrival: None. 22:00 Method Of Arrival: Ambulatory lp1 22:00 Acuity: NOÉ 4 lp1 Triage Assessment: 22:04 General: Appears uncomfortable, Behavior is appropriate for age. Pain: Complains of lp1 pain in upper right lateral incisor Pain currently is 10 out of 10 on a pain scale. 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 LMP N/A - Irregular menses lp1 Historical: - Allergies: 22:04 Bactrim; lp1 22:04 Cephalexin; lp1 22:04 Codeine; lp1 22:04 Iodine; lp1 22:04 Levaquin; lp1 22:04 Sulfa (Sulfonamide Antibiotics); lp1 - Home Meds: 22:04 amlodipine 10 mg tab 1 tab once daily [Active]; glyburide 5 mg Oral tab 1 tab once lp1 daily [Active]; hydrocortisone 10 mg Oral tab 1 tab 2 times per day [Active]; levothyroxine 75 mcg tab 1 tab once daily [Active]; losartan 50 mg Oral tab 1 tab once daily [Active]; metformin 750 mg Oral Tb24 1 tab twice a day [Active]; omeprazole 20 mg Oral cpDR 1 cap once daily [Active]; Xhance [Active]; - PMHx: 22:04 Anemia; Asthma; Diabetes - NIDDM; Hypertension; Hypothyroidism; pituitary tumor- lp1 surgically removed Jun 24; - Immunization history:: Adult Immunizations up to date. - Social history:: Smoking status: Patient/guardian denies using tobacco. - Ebola Screening: : No symptoms or risks identified at this time. Screenin:05 Abuse screen: Denies threats or abuse. Denies injuries from another. Nutritional lp1 screening: No deficits noted. Tuberculosis screening: No symptoms or risk factors identified. Fall Risk None identified. Assessment: 22:54 General: Appears uncomfortable, obese, Behavior is cooperative, anxious, fussy. Pain: ak1 Complains of pain in upper right lateral incisor. Neuro: No deficits noted. Cardiovascular: No deficits noted. Respiratory: No deficits noted. GI: No signs and/or symptoms were reported involving the gastrointestinal system. : No signs and/or symptoms were reported regarding the genitourinary system. EENT: Reports pain since last . pt seen in ER Sunday with IM steroid injection, Demerol IM. pt given doxy PO for infection. pt to have tooth pulled this . Derm: No signs and/or symptoms reported regarding the dermatologic system. Musculoskeletal: No signs and/or symptoms reported regarding the musculoskeletal system. 11/05 00:44 Reassessment: Patient appears in no apparent distress at this time. pt stated increased ak1 pain to tooth pain, ERP notified and will go to bedside. pt c/o gum above tooth has "swelled back up". 01:01 Reassessment: Patient and/or family updated on plan of care and expected duration. Pain ea level reassessed. Patient is alert, oriented x 3, equal unlabored respirations, skin warm/dry/pink. Provider reassessed pt, gave ok to discharge. Discharge instructions given to patient, verbalized the understanding of instruction. Vital Signs: 11/04 22:02 BP 139 / 92; Pulse 83; Resp 18; Temp 98.6(O); Pulse Ox 97% on R/A; Weight 127.91 kg; lp1 Height 5 ft. 4 in. (162.56 cm); Pain 10/10; 22:57 BP 155 / 94; Pulse 92; Resp 18; Pulse Ox 97% on R/A; Pain 10/10; ak1 11/05 00:50 BP 138 / 82; Pulse 80; Resp 18; Pulse Ox 99% ; ea 11/04 22:02 Body Mass Index 48.40 (127.91 kg, 162.56 cm) lp1 ED Course: 11/04 21:30 Patient arrived in ED. ds1 22:02 Triage completed. lp1 22:02 Arm band placed on right wrist. lp1 22:54 Jonatan Chao NP is PHCP. pm1 22:54 Jl Gonzales MD is Attending Physician. pm1 22:54 Clau Carvalho, ALCIDES is Primary Nurse. ak1 22:57 Patient has correct armband on for positive identification. Bed in low position. Call ak1 light in reach. Side rails up X 1. Adult w/ patient. Pulse ox on. NIBP on. 11/05 00:40 No provider procedures requiring assistance completed. Patient did not have IV access ak1 during this emergency room visit. Administered Medications: 00:16 Drug: Lidocaine (1 %) 5 mg {Note: administered by provider.} Route: Infiltration; ea 00:16 Drug: Marcaine (0.5 %) 10 ml {Note: administered by provider.} Volume: 10 ml; Route: ea Infiltration; Outcome: 00:33 Discharge ordered by MD. pm1 00:40 Discharged to home ambulatory. ak1 00:40 Condition: improved 00:40 Discharge instructions given to patient, Instructed on discharge instructions, follow up and referral plans. Demonstrated understanding of instructions, follow-up care. 01:03 Patient left the ED. ea Signatures: Mikayla Maguire ds1 Rose Ludwig RN RN 1 Clau Carvalho RN RN [facility] Jonatan Chao NP LAUNDRY PRESS OPERATOR pm1 Gabbie Bay RN RN ea
[2018-11-05 01:37] VITALS: TEMP 98.6
[2018-11-05 01:39] VITALS: BP 138/82; O2SAT 99
== END 2018-11-05 01:03 | disposition home or self-care (01) ==
LOC: ER 21:29
PROC: 0C95XZZ Drainage of Upper Gingiva, External Approach (ICD-10-PCS; principal; 2018-11-04)
DX: K04.7 Periapical abscess without sinus (principal); D64.9 Anemia, unspecified; E11.9 Type 2 diabetes mellitus without complications; I10 Essential (primary) hypertension; E03.9 Hypothyroidism, unspecified; J45.909 Unspecified asthma, uncomplicated; Z79.84 Long term (current) use of oral hypoglycemic drugs; Z88.1 Allergy status to other antibiotic agents; Z88.5 Allergy status to narcotic agent; Z88.2 Allergy status to sulfonamides; Z88.8 Allergy status to other drugs, medicaments and biological substances
CPT/HCPCS: 99283; J2001

== ENCOUNTER 2018-12-08 18:04 | Emergency (ER) | payer BC, SELFPAY ==
--- OUTSIDE RECORDS SUMMARY | 2018-12-08 18:07 | XMS REPORT | Clinical Summary ---
:1970 Author Organization [facility] Address [address] [place] [address] Care Team Providers Name Role Phone Pcp, [...] packet by 3 packet 5 06/25/2018 Active rkpov-xmjbss-vleroc Nasal route 2 bottle (NEILMED (two) times [...] Encounters Date Type Specialty Care Team Description 11/14/2018 Outside Orders Radiology Alex Ruano, Pituitary adenoma (HCC) (Primary Dx) 06/26/2018 - Hospital Encounter General Internal Cece, Acute intractable 06/27/2018 Medicine Antonino Flor headache, unspecified III, MD headache type Kelsey Westbrook MD 06/24/2018 Surgery [...] (HCC); Kim Pitt Acquired hypothyroidism MD Aline SeayAlthea MD Mezrahi, Maria, MD 06/18/2018 Travel after 12/07/2017 Family History Medical History Relation Name Comments [...] Taken Blood Pressure 125/71 06/27/2018 12:09 PM GAS DISTRIBUTION SUPERVISOR Pulse 63 06/27/2018 12:09 PM GAS DISTRIBUTION SUPERVISOR Temperature 36.2 C (97.1 F) 06/27/2018 12:09 PM GAS DISTRIBUTION SUPERVISOR Respiratory Rate 18 06/27/2018 12:09 PM GAS DISTRIBUTION SUPERVISOR Oxygen Saturation 97% 06/27/2018 12:09 PM GAS DISTRIBUTION SUPERVISOR Inhaled Oxygen Concentration - - Weight 122.5 kg (270 lb) 06/18/2018 9:00 PM GAS DISTRIBUTION SUPERVISOR Height 162.6 cm (5' 4") 06/18/2018 9:00 PM GAS DISTRIBUTION SUPERVISOR Body Mass Index 46.35 06/18/2018 9:00 PM GAS DISTRIBUTION SUPERVISOR Plan of Treatment Not on file Implants Implanted Type Area Pump Oiler Device Shelf Model / Identifier Expiration Serial / Date Lot Sealant Durasl Spine 5ml [id number] - [id number] Cement/Fi N/A: [employer] 10/21/[id number] / Implanted: Qty: 1 on 06/24/2018 by Alex Ruano MD ller/Valentine Head / sive [id number] Flseal [facility] Full Strlprep 10ml [id number] - [id number] Cement/Fi N/A: FUNES: BIOSCI 11/18/2019 [id number] / Implanted: Qty: 1 on 06/24/2018 by Alex Ruano MD ller/Valentine Head / sive [id number] Graft Matrix Dura 1x3 [id number] - [id number] Neuro N/A: [employer] 02/20/2020 [id number] / Implanted: Qty: 1 on 06/24/2018 by Alex Ruano MD Head SURGICAL / NAVIGATION [id number] Procedures Procedure Name Priority Date/Time Associated Comments Diagnosis INTRAOPERATIVE PATH 06/29/2018 1:00 REPORT - SCAN PM GAS DISTRIBUTION SUPERVISOR RHYTHM STRIP - SCAN 06/29/2018 1:00 PM GAS DISTRIBUTION SUPERVISOR POCT-GLUCOSE METER Routine 06/27/2018 12:07 Results for this PM GAS DISTRIBUTION SUPERVISOR procedure are in the results section. POCT-GLUCOSE METER Routine 06/27/2018 7:41 Results for this AM GAS DISTRI[employer]ION SUPERVISOR procedure are in the results section. CBC W/PLT COUNT & AUTO Routine 06/27/2018 5:56 Results for this DIFFERENTIAL AM GAS DISTRIBUTION SUPERVISOR procedure are in the results section. BASIC METABOLIC PANEL Routine 06/27/2018 5:56 Results for this (7) AM GAS DISTRIBUTION SUPERVISOR procedure are in the results section. CBC W/PLT COUNT & AUTO Routine 06/27/2018 5:56 Results for this DIFFERENTIAL AM GAS DISTRI[employer]ION SUPERVISOR procedure are in the results section. CBC W/PLT COUNT & AUTO STAT 06/26/2018 11:18 Results for this DIFFERENTIAL PM G[employer] DISTRIBUTION SUPERVISOR procedure are in the results section. CBC W/PLT COUNT & AUTO STAT 06/26/2018 11:18 Results for this DIFFERENTIAL PM GAS DISTRIBUTION SUPERVISOR procedure are in the results section. BASIC METABOLIC PANEL STAT 06/26/2018 11:18 Results for this (7) PM GAS DISTRI[employer]ION SUPERVISOR procedure are in the results section. SODIUM, RANDOM URINE STAT 06/26/2018 11:11 Results for this PM GAS DISTRIBUTION SUPERVISOR procedure are in the results section. CT BRAIN WITHOUT IV STAT 06/26/2018 10:25 Results for this CONTRAST PM GAS DISTRIBUTION SUPERVISOR procedure are in the results section. POCT-GLUCOSE METER Routine 06/26/2018 9:01 Results for this PM GAS DISTRIBUTION SUPERVISOR procedure are in the results section. CBC W/PLT COUNT & AUTO Routine 06/26/2018 1:55 Results for this DIFFERENTIAL PM GAS DISTRIBUTION SUPERVISOR procedure are in the results section. BASIC METABOLIC PANEL Routine 06/26/2018 1:55 Results for this (7) PM GAS DISTRIBUTION SUPERVISOR procedure are in the results section. CBC W/PLT COUNT & AUTO Routine 06/26/2018 1:55 Results for this DIFFERENTIAL PM GAS DISTRIBUTION SUPERVISOR procedure are in the results section. POCT-GLUCOSE METER Routine 06/26/2018 1:33 Results for this PM G[employer] DISTRIBUTION SUPERVISOR procedure are in the results section. POCT-GLUCOSE METER Routine 06/26/2018 12:06 Results for this PM GAS DISTRIBUTION SUPERVISOR procedure are in the results section. POCT-GLUCOSE METER Routine 06/25/2018 4:10 Results for this PM G[employer] DISTRIBUTION SUPERVISOR procedure are in the results section. POCT-GLUCOSE METER Routine 06/25/2018 12:02 Results for this PM GAS DISTRIBUTION SUPERVISOR procedure are in the results section. POCT-GLUCOSE METER Routine 06/25/2018 8:02 Results for this AM GAS DISTRIBUTION SUPERVISOR procedure are in the results section. OSMOLALITY, URINE STAT 06/25/2018 4:23 Results for this AM GAS DISTRIBUTION SUPERVISOR procedure are in the results section. SPECIFIC GRAVITY, STAT 06/25/2018 4:23 Results for this URINE AM GAS DISTRIBUTION SUPERVISOR procedure are in the results section. POCT-GLUCOSE METER Routine 06/24/2018 9:56 Results for this PM GAS DISTRIBUTION SUPERVISOR procedure are in the results section. POCT-GLUCOSE METER Routine 06/24/2018 4:57 Results for this PM GAS DISTRIBUTION SUPERVISOR procedure are in the results section. BASIC METABOLIC PANEL STAT 06/24/2018 4:50 Results for this (7) PM GAS DISTRIBUTION SUPERVISOR procedure are in the results section. POCT-GLUCOSE METER Routine 06/24/2018 11:09 Results for this AM GAS DISTRIBUTION SUPERVISOR procedure are in the results section. POCT-GLUCOSE METER Routine 06/24/2018 9:38 Results for this AM GAS DISTRIBUTION SUPERVISOR procedure are in the results section. TISSUE EXAM AP Routine 06/24/2018 8:02 Results for this AM GAS DISTRIBUTION SUPERVISOR procedure are in the results section. ENDOSCOPIC SINUS 06/24/2018 7:00 Pituitary adenoma SURGERY,REPAIR CSF AM GAS DISTRIBUTION SUPERVISOR (HCC) [place] Special Needs (STEALTH NAVIGATION, LUMBAR DRAIN SET, LANDMARK CT SCAN ON ) TURBINECTOMY,NASAL 06/24/2018 7:00 AM GAS DISTRIBUTION SUPERVISOR Pituitary adenoma (HCC) Special Needs (STEALTH NAVIGATION, LUMBAR DRAIN SET, LANDMARK CT SCAN ON ) ENDOSCOPIC SINUS 06/24/2018 7:00 AM GAS DISTRIBUTION SUPERVISOR Pituitary adenoma SURGERY,ETHMOIDECTOMY W/ (HCC) SPHENOIDOTOMY Special Needs (STEALTH NAVIGATION, LUMBAR DRAIN SET, LANDMARK CT SCAN ON ) PROCEDURE W/ STEALTH 06/24/2018 7:00 AM GAS DISTRIBUTION SUPERVISOR Pituitary adenoma (HCC) Special Needs (STEALTH NAVIGATION, LUMBAR DRAIN SET, LANDMARK CT SCAN ON ) ENDOSCOPIC CRANIOTOMY,REMOVAL 06/24/2018 7:00 AM GAS DISTRIBUTION SUPERVISOR Pituitary adenoma ( HCC) TRANSSPHENOIDAL PITUITARY TUMOR Special Needs (STEALTH NAVIGATION, LUMBAR DRAIN SET, LANDMARK CT SCAN ON ) POCT-GLUCOSE METER Routine 06/24/2018 5:42 AM GAS DISTRIBUTION SUPERVISOR SCREEN, URINE STAT 06/24/2018 5:16 AM GAS DISTRIBUTION SUPERVISOR BASIC METABOLIC PANEL (7) Routine 06/24/2018 5:16 AM GAS DISTRIBUTION SUPERVISOR CBC W/PLT COUNT & AUTO Routine 06/24/2018 5:07 AM GAS DISTRIBUTION SUPERVISOR Results for this DIFFERENTIAL procedure are in the results section. PT/APTT Routine 06/24/2018 5:07 AM GAS DISTRIBUTION SUPERVISOR CBC W/PLT COUNT & AUTO Routine 06/24/2018 5:07 AM GAS DISTRIBUTION SUPERVISOR Results for this DIFFERENTIAL procedure are in the results section. POCT-GLUCOSE METER Routine 06/23/2018 9:21 PM GAS DISTRIBUTION SUPERVISOR POCT-GLUCOSE METER Routine 06/23/2018 4:31 PM GAS DISTRIBUTION SUPERVISOR BASIC METABOLIC PANEL (7) Routine 06/23/2018 4:13 PM GAS DISTRIBUTION SUPERVISOR POCT-GLUCOSE METER Routine 06/23/2018 8:30 AM GAS DISTRIBUTION SUPERVISOR POCT-GLUCOSE METER Routine 06/22/2018 11:34 PM GAS DISTRIBUTION SUPERVISOR POCT-GLUCOSE METER Routine 06/22/2018 8:21 PM GAS DISTRIBUTION SUPERVISOR POCT-GLUCOSE METER Routine 06/22/2018 5:07 PM GAS DISTRIBUTION SUPERVISOR POCT-GLUCOSE METER Routine 06/22/2018 11:49 AM GAS DISTRIBUTION SUPERVISOR POCT-GLUCOSE METER Routine 06/22/2018 8:30 AM GAS DISTRIBUTION SUPERVISOR POCT-GLUCOSE METER Routine 06/21/2018 9:09 PM GAS DISTRIBUTION SUPERVISOR POCT-GLUCOSE METER Routine 06/21/2018 5:20 PM GAS DISTRIBUTION SUPERVISOR POCT-GLUCOSE METER Routine 06/21/2018 11:06 AM GAS DISTRIBUTION SUPERVISOR ECHOCARDIOGRAM REPORT - SCAN 06/21/2018 9:21 AM GAS DISTRIBUTION SUPERVISOR FOLLICLE STIMULATING HORMONE Routine 06/21/2018 9:11 AM GAS DISTRIBUTION SUPERVISOR Results for this (FSH) procedure are in the results section. INSULIN-LIKE GROWTH FACTOR Routine 06/21/2018 9:11 AM GAS DISTRIBUTION SUPERVISOR ACTH Routine 06/21/2018 9:11 AM GAS DISTRIBUTION SUPERVISOR CORTISOL Routine 06/21/2018 9:11 AM GAS DISTRIBUTION SUPERVISOR POCT-GLUCOSE METER Routine 06/21/2018 7:26 AM GAS DISTRIBUTION SUPERVISOR CT BRAIN WITHOUT IV CONTRAST TERI 06/20/2018 9:48 PM GAS DISTRIBUTION SUPERVISOR POCT-GLUCOSE METER Routine 06/20/2018 8:48 PM GAS DISTRIBUTION SUPERVISOR 2D ECHO W/ DOPPLER Routine 06/20/2018 6:40 PM GAS DISTRIBUTION SUPERVISOR Results for this (CW/PW/COLOR) procedure are in the results section. POCT-GLUCOSE METER Routine 06/20/2018 4:48 PM GAS DISTRIBUTION SUPERVISOR POCT-GLUCOSE METER Routine 06/20/2018 1:06 PM GAS DISTRIBUTION SUPERVISOR POCT-GLUCOSE METER Routine 06/20/2018 7:21 AM GAS DISTRIBUTION SUPERVISOR POCT-GLUCOSE METER Routine 06/20/2018 5:22 AM GAS DISTRIBUTION SUPERVISOR BASIC METABOLIC PANEL (7) STAT 06/20/2018 5:08 AM GAS DISTRIBUTION SUPERVISOR POCT-GLUCOSE METER Routine 06/20/2018 12:38 AM GAS DISTRIBUTION SUPERVISOR CT/CTA CAROTID TERI 06/19/2018 10:46 [address] GAS DISTRIBUTION SUPERVISOR CT/CTA BRAIN TERI 06/19/2018 10:46 PM GAS DISTRIBUTION SUPERVISOR POCT-GLUCOSE METER Routine 06/19/2018 9:19 PM GAS DISTRIBUTION SUPERVISOR POCT-GLUCOSE METER Routine 06/19/2018 5:06 PM GAS DISTRIBUTION SUPERVISOR POCT-GLUCOSE METER Routine 06/19/2018 3:03 PM GAS DISTRIBUTION SUPERVISOR POCT-GLUCOSE METER Routine 06/19/2018 12:27 PM GAS DISTRIBUTION SUPERVISOR SCREEN, URINE Routine 06/19/2018 11:54 AM GAS DISTRIBUTION SUPERVISOR OSMOLALITY, URINE Routine 06/19/2018 11:54 AM GAS DISTRIBUTION SUPERVISOR RAPID DRUG SCREEN, URINE Routine 06/19/2018 11:54 AM GAS DISTRIBUTION SUPERVISOR CBC W/PLT COUNT & AUTO Routine 06/19/2018 11:49 AM GAS DISTRIBUTION SUPERVISOR Results for this DIFFERENTIAL procedure are in the results section. INSULIN-LIKE GROWTH FACTOR Routine 06/19/2018 11:49 AM GAS DISTRIBUTION SUPERVISOR OSMOLALITY, SERUM Routine 06/19/2018 11:49 AM GAS DISTRIBUTION SUPERVISOR T4, FREE Routine 06/19/2018 11:49 AM GAS DISTRIBUTION SUPERVISOR C-REACTIVE PROTEIN Routine 06/19/2018 11:49 AM GAS DISTRIBUTION SUPERVISOR HIV-1 ANTIGEN WITH HIV-1/2 Routine 06/19/2018 11:49 AM GAS DISTRIBUTION SUPERVISOR Results for this ANTIBODY procedure are in the results section. RPR Routine 06/19/2018 11:49 AM GAS DISTRIBUTION SUPERVISOR CBC W/PLT COUNT & AUTO Routine 06/19/2018 11:49 AM GAS DISTRIBUTION SUPERVISOR Results for this DIFFERENTIAL procedure are in the results section. POCT-GLUCOSE METER Routine 06/19/2018 9:25 AM GAS DISTRIBUTION SUPERVISOR POCT-GLUCOSE METER Routine 06/19/2018 5:51 AM GAS DISTRIBUTION SUPERVISOR GROWTH HORMONE Routine 06/19/2018 3:49 AM GAS DISTRIBUTION SUPERVISOR LUTEINIZING HORMONE (LH) Routine 06/19/2018 3:49 AM GAS DISTRIBUTION SUPERVISOR ACTH Routine 06/19/2018 3:49 AM GAS DISTRIBUTION SUPERVISOR PROLACTIN Routine 06/19/2018 3:49 AM GAS DISTRIBUTION SUPERVISOR MR BRAIN WITHOUT & WITH IV STAT 06/19/2018 2:25 AM GAS DISTRIBUTION SUPERVISOR Results for this CONTRAST procedure are in the results section. HEMOGLOBIN A1C Routine 06/19/2018 12:39 AM GAS DISTRIBUTION SUPERVISOR TSH/FREE T4 IF INDICATED Routine 06/18/2018 11:32 PM GAS DISTRIBUTION SUPERVISOR BASIC METABOLIC PANEL (7) STAT 06/18/2018 11:32 PM GAS DISTRIBUTION SUPERVISOR URINALYSIS W/ REFLEX URINE Routine 06/18/2018 10:27 PM GAS DISTRIBUTION SUPERVISOR Results for this CULTURE procedure are in the results section. after 12/07/2017 Results INTRAOPERATIVE PATH REPORT - SCAN (06/29/2018 1:00 PM GAS DISTRIBUTION SUPERVISOR) Narrative Performed At RHYTHM STRIP - SCAN (06/29/2018 1:00 PM GAS DISTRIBUTION SUPERVISOR) Narrative Performed At POC-Glucose meter (06/27/2018 12:07 PM GAS DISTRIBUTION SUPERVISOR)Only the most recent of37 resultswithin the time period is included. POC-Glucose Meter 141 (H)Comment: TESTED AT 70 - 110 mg/dL [place] [id number] [facility] [id number] Specimen Blood Performing Organization Address City/State/Zipcode Phone Number [address] [phone] CENTER CBC with platelet count + automated diff (06/27/2018 5:56 AM GAS DISTRIBUTION SUPERVISOR)Only the most recent of5 resultswithin the time [...] [facility] [place] Specimen Blood Performing Organization Address City/State/Zipcode Phone Number [facility] [place] [address] [place] [address] [phone] CENTER Basic Metabolic Panel (06/27/2018 5:56 AM GAS DISTRIBUTION SUPERVISOR)Only the most recent of8 resultswithin the time [...] 91Comment: ESTIMATED GFR IS mL/min/1.73 sq m [facility] NOT ACCURATE CREATININE [facility] CLEARANCE IN PREDICTING GLOMERULAR FILTRATION RATE. ESTIMATED GFR IS NOT APPLICABLE FOR DIALYSIS PATIENTS. Specimen Blood Performing Organization Address City/State/Zipcode Phone Number [address] [phone] [facility] Sodium, random urine (06/26/2018 11:11 PM GAS DISTRIBUTION SUPERVISOR) Sodium Urine <20 meq/L [facility] [place] Specimen Urine Narrative Performed At Reference Range: No Normals [facility] [place] Performing Organization Address [facility] Phone Number [address] brain without IV contrast (06/26/2018 10:25 PM GAS DISTRIBUTION SUPERVISOR)Only the most recent of2 resultswithin the time period is included. Specimen Narrative Performed At FINAL REPORT [facility] CT Head without contrast CLINICAL HISTORY: concern [...] MD Report Verified Date/Time:06/26/2018 22:57:28 Reading Location: [address] Transitional Reading Room Procedure Note Interface, External Ris In - 06/26/2018 10:59 PM GAS DISTRIBUTION SUPERVISOR FINAL REPORT CT Head without contrast CLINICAL [...] Report Verified Date/Time: 06/26/2018 22:57:28 Reading Location: [address] Transitional Reading Room Performing Organization Address City/State/Zipcode Phone Number GE RIS Specific gravity, urine (06/25/2018 4:23 AM GAS DISTRIBUTION SUPERVISOR) Specific [place], UA 1.010 1.001 - 1.035 [facility] [place] Specimen Urine Performing Organization Address City/State/Zipcode Phone Number [facility] [place] [address] [place] [address] [facility] Osmolality, urine (06/25/2018 4:23 AM GAS DISTRIBUTION SUPERVISOR)Only the most recent of2 resultswithin the time period is included. Osmolality, Ur 340 40-1,400 mOsm/kg [facility] Specimen Urine Performing Organization Address City/[facility] Cent[facility]ode Phone Number [facility] [place] [address] [place] [phone] [facility] Tissue Exam (06/24/2018 8:02 AM GAS DISTRIBUTION SUPERVISOR) Case Report Surgical Pathology Report Case: [id number] [facility] Authorizing Provider:Alex Ruano MD Collected: 06/24/2018 0802 [facility] Ordering Location: [address] Received: 06/24/2018 0809 CENTER Service Pathologist: Chon Caraballo MD Specimens: A) - Tumor, pituitary tumor B) - Tumor, pituitary tumor DIAGNOSIS A.PITUITARY GLAND, TRANSSPHENOIDAL HYPOPHYSECTOMY: [facility] NULL CELL ADENOMA INVADING RESPIRATORY MUCOSA [facility] B. PITUITARY GLAND, TRANSSPHENOIDAL HYPOPHYSECTOMY: NULL CELL ADENOMA ENTRAPPED ADENOHYPOPHYSIS Signing Pathologist Direct Phone Line: [phone] COMMENT Immunoperoxidase stains [facility] performed on the [facility] MEDICAL specimen show that the tumor CENTER has no staining for growth hormone, LH, FSH, TSH, prolactin, or ACTH. 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 The MIB-1 proliferation index is less than 1%. CPT Code(s) 16682 x 2; 94016; 57594; 70856 [facility] x 6; 29051 [facility] CLINICAL HISTORY Pituitary adenoma [facility] SPECIMEN SOURCE A. Pituitary tumor; B. [facility] Pituitary tumor [facility] GROSS DESCRIPTION A. The specimen is received fresh for frozen section diagnosis and labeled "pituitary tumor" and consists of a single fragment of tariq -red soft tissue measuring 0.5 cm in greatest dimension submitted ent [facility] for frozen section diagnosis, and touch preps are performed. CG/ew [facility] B. Received fresh labeled "tumor", description "pituitary tumor" is a 2.0 x 1.0 x 0.3 cm aggregate of pink-tariq to hannah-white rubbery friable soft tissue. The specimen is entirely submitted in cassette B1. DB/pl INTRAOPERATIVE FROZEN SECTION DIAGNOSIS, PITUITARY TUMOR: [facility] CONSULTATION ADENOMA EXTENDING INTO RESPIRATORY MUCOSA PER DR. CARABALLO [facility] MICROSCOPIC DESCRIPTION Performed on A and B [facility] SPECIAL STUDIES The interpretation of this case included the use of immunohistochemistry or special stains. [facility] [place] Immunohistochemistry technical testing was performed at [facility], Pathology Laboratory where it was developed and [...] clinical laboratory testing. Specimen Tissue - Tumor Tissue - Tumor Performing Organization Address City/State/Zipcode Phone Number [facility] [place] [address] [place] [address] CENTER Screen, urine (06/24/2018 5:16 AM GAS DISTRIBUTION SUPERVISOR)Only the most recent of2 resultswithin the time period is included. Preg Test, Ur Negative [facility] Specimen Urine Performing Organization Address City/State/Zipcode Phone Number [address] [address] CENTER PT/aPTT (06/24/2018 5:07 AM GAS DISTRIBUTION SUPERVISOR) Protime 13.8 11.7 - 14.7 seconds [place] [...] with mechanical heart valves. Performing Organization Address [facility] Cent[facility]ode Phone Number [address] [address] [facility] ECHOCARDIOGRAM REPORT - SCAN (06/21/2018 9:21 AM GAS DISTRIBUTION SUPERVISOR) Narrative Performed At Cortisol (06/21/2018 9:11 AM GAS DISTRIBUTION SUPERVISOR) Cortisol, Total 4.7 3.7 - 19.4 ug/dL [facility] Specimen Blood Performing Organization Address [facility] Cent[facility]odc Phone Number [address] [address] [facility] Insulin-like growth factor (06/21/2018 9:11 AM GAS DISTRIBUTION SUPERVISOR)Only the most recent of2 resultswithin the time period is included. Igf-1(Somatomedin-C) 36 (L) 52 - 328 ng/mL [facility] Z-Score Male: DNR [facility] Z-Score Female: -2.6 (L) -2.0 - 2.0 SD [facility] Comment: [facility] This test was developed and its analytical performance characteristics have been determined by [facility]. It has not been cleared or approved by FDA. This assay has been validated pursuant to the CLIA regulations and is used for clinical purposes. Specimen Blood Narrative Performed At Performing Lab [facility] [employer] [facility] [employer] [address] [address] Sixto Rodrigez MD, PhD, AANBELL Performing Organization Address [facility] [place] [address] [place] [address] [facility] [place] ACTH (06/21/2018 9:11 AM GAS DISTRIBUTION SUPERVISOR)Only the most recent of2 resultswithin the time period is included. ACTH 17 6 - 50 pg/mL [facility] [employer] [facility] Comment: Reference range applies only to the specimens collected between 7am-10am. Specimen Blood Narrative Performed At Performing Lab [facility] [employer] [facility] [address] [address] Sixto Rodrigez MD, PhD, ANABELL Performing Organization Address [facility] [place] [address] [place] [address] Follicle stimulating hormone (FSH) (06/21/2018 9:11 AM GAS DISTRIBUTION SUPERVISOR) Fsh 2.3 mIU/mL [employer] Comment: Adult female reference ranges for FSH: Follicular Phase: 2.5- 10.2 mIU/mL Mid-Cycle:3.1- 17.7 mIU/mL Luteal Phase: 1.5-9.1 mIU/mL Postmenopausal:23.0-116.3 mIU/mL Children (<18 Years Old): FSH reference ranges established on post-pubertal patient population. Reference range not established for pre-pubertal patients using this assay. For pre-pubertal patients, the [employer] FSH, Pediatrics assay is recommended (test code 25402). Specimen Blood Narrative Performed At Performing Lab [facility] [address] [address] Sixto Rodrigez MD, PhD, ANABELL Performing Organization Address [facility] Phone Number [place] [address] [address] [place] [address] [facility] [place] 2D Echo W/Doppler(CW/PW/Color) (06/20/2018 6:40 PM GAS DISTRIBUTION SUPERVISOR) Ejection Fraction [facility] ECHO [facility] Specimen Narrative Performed At Transthoracic Echocardiography Report (TTE) 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 Elaina Mastersradha RUST Wealth Management Director Tony Fernandez Interpreting Tarik Domínguez MD Procedure [...] External Ris In - 06/21/2018 8:37 AM GAS DISTRIBUTION SUPERVISOR Transthoracic Echocardiography Report (TTE) Demographics Patient Name VY STOUT Date of Study 06/20/2018 Gender Female Visit Number [id number] Race Unknown Room Number 2251 Number Date of 1970 Referring Physician Althea Mireles MD Age 48 year(s) 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 Elaina Grajeda RDCS Wealth Management Director Ethan Rowell Physician Procedure Type of Study [...] TR Gradient: 18.02 mmHg Performing Organization Address City/State/[facility] Cent[facility]ode Phone Number [facility] CTA carotid (06/19/2018 10:46 PM GAS DISTRIBUTION SUPERVISOR) Specimen Narrative Performed At FINAL REPORT [employer] [facility] CLINICAL HISTORY: Stroke TECHNIQUE: Initially, noncontrast head [...] MD Report Verified Date/Time:06/20/2018 01:03:44 Reading Location: [address] Transitional Reading Room Procedure Note Interface, External Ris In - 06/20/2018 1:05 AM GAS DISTRIBUTION SUPERVISOR FINAL REPORT CLINICAL HISTORY: Stroke TECHNIQUE: Initially, [...] Report Verified Date/Time: 06/20/2018 01:03:44 Reading Location: [address] Transitional Reading Room Performing Organization Address City/State/Zipcode Phone Number [employer] CTA brain (06/19/2018 10:46 PM GAS DISTRIBUTION SUPERVISOR) Specimen Narrative Performed At FINAL REPORT [employer] [facility] CLINICAL HISTORY: Stroke TECHNIQUE: Initially, noncontrast head [...] MD Report Verified Date/Time:06/20/2018 01:03:44 Reading Location: 61 [address] Transitional Reading Room Procedure Note Interface, External Ris In - 06/20/2018 1:05 AM GAS DISTRIBUTION SUPERVISOR FINAL REPORT CLINICAL HISTORY: Stroke TECHNIQUE: Initially, [...] Report Verified Date/Time: 06/20/2018 01:03:44 Reading Location: [address] Transitional Reading Room Performing Organization Address City/State/Zipcode Phone Number RIS Rapid drug screen, urine (06/19/2018 11:54 AM GAS DISTRIBUTION SUPERVISOR) Barbiturate Screen Negative Negative [facility] Specimen Urine Narrative Performed At [facility] CONC. Cocaine 300 ng/mL Lkthskgiaxi42 ng/mL Blbozlyanssjvx924 ng/mL Barbiturate 200 ng/mL Ruxmuifnvhutp20 ng/mL Qwbuia898 ng/mL Methadone 300 ng/mL Amphetamine/ 1000 ng/mL Methamphetamine Oxycodone 300 ng/mL This assay provides an unconfirmed qualitative test result for the clinical management of patients in emergency situations. Chain of custody not maintained. Some ffve-fcg-gojpzmu medications, as well as adulterants, may cause inaccurate results. Clinical correlation should be applied. A more comprehensive drug screen or confirmation of a detected drug may be performed upon request. Performing Organization Address City/[facility] Phone Number [address] [address] [facility] HIV-1 Antigen with HIV-1/2 Antibody (06/19/2018 11:49 AM GAS DISTRIBUTION SUPERVISOR) HIV-1 Antigen with HIV 1&2 NON-REACTIVE Nonreactive [facility] Specimen Blood Performing Organization Address [facility] Phone Number [address] [address] [phone] [facility] C-Reactive Protein (06/19/2018 11:49 AM GAS DISTRIBUTION SUPERVISOR) CRP 0.81 (H) 0.00 - 0.50 mg/dL [facility] Specimen Blood Performing Organization Address City/[facility] Phone Number [address] [address] CENTER RPR (06/19/2018 11:49 AM GAS DISTRIBUTION SUPERVISOR) RPR Nonreactive Nonreactive [facility] Specimen Blood Performing Organization Address [facility]/Zipcode Phone Number [address] [address] CENTER T4, free (06/19/2018 11:49 AM GAS DISTRIBUTION SUPERVISOR) Free T4 0.89 0.70 - 1.48 ng/dL [facility] Specimen Blood Performing Organization Address [facility]/Zipcode Phone Number [address] [phone] [facility] Osmolality, serum (06/19/2018 11:49 AM GAS DISTRIBUTION SUPERVISOR) Osmolality Serum 310 (H) 275 - 295 mOsm/kg [facility] Specimen Blood Performing Organization Address [facility]/Zipcode Phone Number [address] [address] CENTER Prolactin (06/19/2018 3:49 AM GAS DISTRIBUTION SUPERVISOR) Prolactin 23.34 5.18 - 26.53 ng/mL [facility] Specimen Blood Performing Organization Address [facility] Phone Number [address] [address] [facility] Growth hormone (06/19/2018 3:49 AM GAS DISTRIBUTION SUPERVISOR) Growth Hormone <0.1 < OR=7.1 ng/mL [facility] [...] Guideline. J Clin Endocrinol Metab 2014; 99: 6055-7437]. Using GH stimulation testing, the following result at any point in the timed sequence makes GH deficiency unlikely: Adults (> or=20 years): Insulin Hypoglycemia > or=5.1 ng/mL Arginine/GHRH> or=4.1 ng/mL Glucagon > or=3.0 ng/mL Children (<20 years): All Stimulation Tests> or=10.0 ng/mL Specimen Blood Narrative Performed At Performing Lab [facility] [employer] [facility] [address] [place] [address] [place] [address] Sixto Rodrigez MD, PhD, ANABELL Performing Organization Address [facility] Phone Number [place] [address] [place] [address] Luteinizing hormone (LH) (06/19/2018 3:49 AM GAS DISTRIBUTION SUPERVISOR) LH, Serum 0.2 mIU/mL [employer] Comment: Adult Female Reference Ranges for LH: Follicular Phase:1.9-12.5 mIU/mL Mid-Cycle Peak:8.7-76.3 mIU/mL Luteal Phase:0.5-16.9 mIU/mL Postmenopausal: 10.0-54.7 mIU/mL Children (<18 Years Old): LH reference ranges established on post-pubertal patient population. Reference range not established for pre-pubertal patients using this assay. For pre-pubertal patients, the [employer] LH, Pediatric assay is recommended (order code [id number]). Specimen Blood Narrative Performed At Performing Lab [employer] [address] [place] [address] [place] [address] Sixto Rodrigez MD, PhD, ANABELL Performing Organization Address [facility] Phone [place] [address] [place] [address] MR brain without & with IV contrast (06/19/2018 2:25 AM GAS DISTRIBUTION SUPERVISOR) Specimen Narrative Performed At FINAL REPORT [facility] MRI brain with and without contrast Comparison:None. 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 Discussion: Multiplanar MR imaging of the brain and sella was provided fkp-yvj-neuf IV gadolinium administration using T1, T2, FLAIR, [...] Report Verified Date/Time: 06/19/2018 02:25:15 Reading Location: [facility] B1 C013Y CT Body Reading Room Performing Organization Address City/[facility] Phone Number [facility] Hemoglobin A1c (06/19/2018 12:39 AM GAS DISTRIBUTION SUPERVISOR) Hemoglobin A1C 7.9 (H) 4.3 - 6.1 % [facility] Specimen Blood Performing Organization Address [facility] Phone Number [address] [address] [phone] CENTER TSH/Free T4 If Indicated (06/18/2018 11:32 PM GAS DISTRIBUTION SUPERVISOR) TSH 0.41 0.35 - 4.94 uIU/mL [facility] Specimen Blood Performing Organization Address [facility] Phone Number [address] [address] [phone] CENTER Urinalysis w/Microscopic + Reflex to Culture (06/18/2018 10:27 PM GAS DISTRIBUTION SUPERVISOR) Color, UA Yellow [facility] Clarity, UA Clear [facility] Specific [place], UA 1.011 1.001 - 1.035 [facility] [place] Specimen Urine Performing Organization Address City/State/Zipcode Phone Number [facility] [place] [place] [address] [place] [address] CENTER after 12/07/2017 Insurance Payer Benefit Plan / Subscriber ID Type Phone Address Group BLUE CROSS/BLUE [employer]BS OS xxxxxxxxxxxx PPO [phone] [id number] [employer]/PPO/[place] [address] (Home) [address] [place] [phone] Advance Directives Patient has advance care planning documents, and code status on file. For more information, please contact:[facility] [place] [address] [phone] Code Status Date Activated Date Inactivated Comments Full Code 06/26/2018 1:38 PM This code status was determined by: Patient Full Code 06/18/2018 8:39 PM 06/26/2018 11:54 AM This code status was determined by: Patient
--- OUTSIDE RECORDS SUMMARY | 2018-12-08 18:08 | XMS REPORT ---
:1970 Author Organization [facility] Address [address] [place] [address] Dr. Holbrook [address] [place] [address] Care Team Providers Name Role Phone DAJUAN GEORGE Unavailable Unavailable MITCHELL DOBSON Unavailable Unavailable Problems This patient has no known problems. Allergies, Adverse Reactions, Alerts This patient has no known allergies or adverse reactions. Medications This patient has no known medications. Results Test Description Test Time Test Comments Text Results Atomic Results Result Comments TISSUE EXAM 2018-06-28 08:38:00 Surgical Pathology Report Case: [id number] Authorizing Provider: Alex Ruano MD Collected: 06/24/2018801 Ordering Location: [address] Received: 06/24/2018 0809 Service Pathologist: Chon Andino MD Specimens: A) - Tumor, pituitary tumor B) - Tumor, pituitary tumor A.PITUITARY GLAND, TRANSSPHENOIDAL 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 PITUITARY GLAND, TRANSSPHENOIDAL HYPOPHYSECTOMY:NULL CELL ADENOMAENTRAPPED ADENOHYPOPHYSIS Signing Pathologist Direct Phone Line: [phone] signed by Chon Andino MD on 06/28/2018 at 8:38 AMImmunoperoxidase stains performed on the second specimen show that the tumor has no staining for growth hormone, LH, FSH, TSH, prolactin, or ACTH. 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 The MIB-1 proliferation index is less than 1%. 68510 x 2; 79557; 73661; 56009 x 6; 22058Igpqxkdtm adenoma A. Pituitary tumor; B. Pituitary tumorA. [...] stains. Immunohistochemistry technical testing was performed at [facility], Pathology Laboratory where it was developed [...] (BEAKER) (test 141 mg/dL 70-110 TESTED AT [facility] [address] [place] [address] tadi=2710) [facility] [address] POCT-GLUCOSE [id number] 12:06:00 Test Item Value Reference Range Comments POC-GLUCOSE METER (BEAKER) 217 mg/dL 70-110 TESTED AT [address] (test gria=4595) [facility] [address] BASIC METABOLIC [id number] 07:18:00 Test Item Value Reference Range Comments SODIUM (BEAKER) (test 139 meq/L 136-145 bpnc=155) POTASSIUM (BEAKER) (test 4.1 meq/L 3.5-5.1 ilit=868) CHLORIDE (BEAKER) (test 105 meq/L 98-107 jizm=503) CO2 (BEAKER) (test 28 meq/L 22-29 dxzi=406) BLOOD UREA NITROGEN 11 mg/dL 7-21 (BEAKER) (test zicm=658) CREATININE (BEAKER) (test 0.69 mg/dL 0.57-1.25 atwe=851) GLUCOSE RANDOM (BEAKER) 163 mg/dL 70-105 (test ylls=718) CALCIUM (BEAKER) (test 8.6 mg/dL 8.4-10.2 oonl=266) EGFR (BEAKER) (test 91 mL/min/1.73 sq m ESTIMATED GFR IS NOT cxik=2447) ACCURATE CREATININE CLEARANCE IN PREDICTING GLOMERULAR FILTRATION RATE. ESTIMATED GFR IS NOT APPLICABLE FOR DIALYSIS PATIENTS. CBC W/PLT COUNT & AUTO [id number] 06:49:00 Test Item Value Reference Range Comments WHITE BLOOD CELL COUNT (BEAKER) (test exuc=139) 8.7 K/ L 3.5-10.5 RED BLOOD CELL COUNT (BEAKER) (test yyew=196) 4.82 M/ L 3.93-5.22 HEMOGLOBIN (BEAKER) (test gtyy=832) 13.2 GM/DL 11.2-15.7 HEMATOCRIT (BEAKER) (test xsir=200) 40.8 % 34.1-44.9 MEAN CORPUSCULAR VOLUME (BEAKER) (test zwdw=834) 84.6 fL 79.4-94.8 MEAN CORPUSCULAR HEMOGLOBIN (BEAKER) (test 27.4 pg 25.6-32.2 mkhs=339) MEAN CORPUSCULAR HEMOGLOBIN CONC (BEAKER) (test 32.4 GM/DL 32.2-35.5 kuiq=245) RED CELL DISTRIBUTION WIDTH (BEAKER) (test 13.2 % 11.7-14.4 krbt=983) PLATELET COUNT (BEAKER) (test cozp=914) 233 K/CU MM 150-450 MEAN PLATELET VOLUME (BEAKER) (test vhmq=914) 11.5 fL 9.4-12.3 NUCLEATED RED BLOOD CELLS (BEAKER) (test 0 /100 WBC 0-0 ngpe=935) NEUTROPHILS RELATIVE PERCENT (BEAKER) (test 65 % ivoe=510) LYMPHOCYTES RELATIVE PERCENT (BEAKER) (test 24 % hbtc=819) MONOCYTES RELATIVE PERCENT (BEAKER) (test 8 % puyy=681) EOSINOPHILS RELATIVE PERCENT (BEAKER) (test 2 % zuzn=534) BASOPHILS RELATIVE PERCENT (BEAKER) (test 0 % udio=940) NEUTROPHILS ABSOLUTE COUNT (BEAKER) (test 5.65 K/ L 1.56-6.13 saqv=115) LYMPHOCYTES ABSOLUTE COUNT (BEAKER) (test 2.07 K/ L 1.18-3.74 ilkm=982) MONOCYTES ABSOLUTE COUNT (BEAKER) (test 0.70 K/ L 0.24-0.36 tjkb=862) EOSINOPHILS ABSOLUTE COUNT (BEAKER) (test 0.16 K/ L 0.04-0.36 onve=581) BASOPHILS ABSOLUTE COUNT (BEAKER) (test 0.02 K/ L 0.01-0.08 wxvw=263) IMMATURE GRANULOCYTES-RELATIVE PERCENT (BEAKER) 1 % 0-1 (test kwtt=8600) BASIC METABOLIC [id number] 23:52:00 Test Item Value Reference Range Comments SODIUM (BEAKER) (test 139 meq/L 136-145 vezc=489) POTASSIUM (BEAKER) (test 4.0 meq/L 3.5-5.1 Specimen slightly zuwn=743) hemolyzed CHLORIDE (BEAKER) (test 103 meq/L 98-107 hmwj=112) CO2 (BEAKER) (test 28 meq/L 22-29 kepq=576) BLOOD UREA NITROGEN 12 mg/dL 7-21 (BEAKER) (test acdw=873) CREATININE (BEAKER) (test 0.72 mg/dL 0.57-1.25 Specimen slightly qrjd=121) hemolyzed GLUCOSE RANDOM (BEAKER) 193 mg/dL 70-105 (test zhoh=376) CALCIUM (BEAKER) (test 8.6 mg/dL 8.4-10.2 qowg=161) EGFR (BEAKER) (test 86 mL/min/1.73 sq m ESTIMATED GFR IS NOT hhjn=7112) ACCURATE CREATININE CLEARANCE IN PREDICTING GLOMERULAR FILTRATION RATE. ESTIMATED GFR IS NOT APPLICABLE FOR DIALYSIS PATIENTS. SODIUM, RANDOM [id number] 23:49:00 Test Item Value Reference Range Comments SODIUM URINE (BEAKER) (test dcie=218) < meq/L Reference Range: No NormalsCBC W/PLT COUNT & AUTO [id number] 23: 35:00 Test Item Value Reference Range Comments WHITE BLOOD CELL COUNT (BEAKER) (test cxqe=586) 9.7 K/ L 3.5-10.5 RED BLOOD CELL COUNT (BEAKER) (test cheo=936) 4.46 M/ L 3.93-5.22 HEMOGLOBIN (BEAKER) (test oayn=002) 12.2 GM/DL 11.2-15.7 HEMATOCRIT (BEAKER) (test fjko=300) 37.8 % 34.1-44.9 MEAN CORPUSCULAR VOLUME (BEAKER) (test nncm=618) 84.8 fL 79.4-94.8 MEAN CORPUSCULAR HEMOGLOBIN (BEAKER) (test 27.4 pg 25.6-32.2 egke=713) MEAN CORPUSCULAR HEMOGLOBIN CONC (BEAKER) (test 32.3 GM/DL 32.2-35.5 iwrt=045) RED CELL DISTRIBUTION WIDTH (BEAKER) (test 13.0 % 11.7-14.4 xeth=324) PLATELET COUNT (BEAKER) (test stnk=087) 210 K/CU MM 150-450 MEAN PLATELET VOLUME (BEAKER) (test zgat=286) 11.4 fL 9.4-12.3 NUCLEATED RED BLOOD CELLS (BEAKER) (test 0 /100 WBC 0-0 agwa=310) NEUTROPHILS RELATIVE PERCENT (BEAKER) (test 61 % nryy=714) LYMPHOCYTES RELATIVE PERCENT (BEAKER) (test 28 % qoun=869) MONOCYTES RELATIVE PERCENT (BEAKER) (test 8 % cojw=690) EOSINOPHILS RELATIVE PERCENT (BEAKER) (test 2 % hwuh=559) BASOPHILS RELATIVE PERCENT (BEAKER) (test 0 % mper=748) NEUTROPHILS ABSOLUTE COUNT (BEAKER) (test 5.87 K/ L 1.56-6.13 nwqs=993) LYMPHOCYTES ABSOLUTE COUNT (BEAKER) (test 2.72 K/ L 1.18-3.74 zjmf=735) MONOCYTES ABSOLUTE COUNT (BEAKER) (test 0.80 K/ L 0.24-0.36 jpjt=315) EOSINOPHILS ABSOLUTE COUNT (BEAKER) (test 0.22 K/ L 0.04-0.36 kaol=858) BASOPHILS ABSOLUTE COUNT (BEAKER) (test 0.03 K/ L 0.01-0.08 yrua=461) IMMATURE GRANULOCYTES-RELATIVE PERCENT (BEAKER) 1 % 0-1 (test cfjt=2025) CT, BRAIN, WITHOUT [id number] 22:57:00FINAL REPORT CT Head without contrast CLINICAL [...] Gamboa Verified Date/Time: 06/26/2018 22:57:28 [address] POCT-GLUCOSE [id number] 21:07:00 Test Item Value Reference Range Comments POC-GLUCOSE METER (BEAKER) 211 mg/dL 70-110 TESTED AT [address] (test rcsr=3916) [facility] [address] BASIC METABOLIC [id number] 14:29:00 Test Item Value Reference Range Comments SODIUM (BEAKER) (test 137 meq/L 136-145 tvzf=975) POTASSIUM (BEAKER) (test 3.6 meq/L 3.5-5.1 kapv=008) CHLORIDE (BEAKER) (test 100 meq/L 98-107 risn=262) CO2 (BEAKER) (test 32 meq/L 22-29 wgkc=254) BLOOD UREA NITROGEN 12 mg/dL 7-21 (BEAKER) (test hxmx=440) CREATININE (BEAKER) (test 0.71 mg/dL 0.57-1.25 jrfn=334) GLUCOSE RANDOM (BEAKER) 182 mg/dL 70-105 (test ahru=414) CALCIUM (BEAKER) (test 8.7 mg/dL 8.4-10.2 jgym=486) EGFR (BEAKER) (test 88 mL/min/1.73 sq m ESTIMATED GFR IS NOT acdv=7865) ACCURATE CREATININE CLEARANCE IN PREDICTING GLOMERULAR FILTRATION RATE. ESTIMATED GFR IS NOT APPLICABLE FOR DIALYSIS PATIENTS. CBC W/PLT COUNT & AUTO [id number] 14:25:00 Test Item Value Reference Range Comments WHITE BLOOD CELL COUNT (BEAKER) (test qvmx=599) 12.3 K/ L 3.5-10.5 RED BLOOD CELL COUNT (BEAKER) (test yatv=786) 4.76 M/ L 3.93-5.22 HEMOGLOBIN (BEAKER) (test euam=254) 13.1 GM/DL 11.2-15.7 HEMATOCRIT (BEAKER) (test wwno=088) 40.6 % 34.1-44.9 MEAN CORPUSCULAR VOLUME (BEAKER) (test mcwg=866) 85.3 fL 79.4-94.8 MEAN CORPUSCULAR HEMOGLOBIN (BEAKER) (test 27.5 pg 25.6-32.2 hwnb=800) MEAN CORPUSCULAR HEMOGLOBIN CONC (BEAKER) (test 32.3 GM/DL 32.2-35.5 zcsl=377) RED CELL DISTRIBUTION WIDTH (BEAKER) (test 13.1 % 11.7-14.4 qsxe=448) PLATELET COUNT (BEAKER) (test fnie=384) 254 K/CU MM 150-450 MEAN PLATELET VOLUME (BEAKER) (test zfrs=133) 11.1 fL 9.4-12.3 NUCLEATED RED BLOOD CELLS (BEAKER) (test 0 /100 WBC 0-0 ychz=316) NEUTROPHILS RELATIVE PERCENT (BEAKER) (test 68 % lmlj=998) LYMPHOCYTES RELATIVE PERCENT (BEAKER) (test 24 % uqjd=717) MONOCYTES RELATIVE PERCENT (BEAKER) (test 6 % kcho=979) EOSINOPHILS RELATIVE PERCENT (BEAKER) (test 1 % tzbh=876) BASOPHILS RELATIVE PERCENT (BEAKER) (test 0 % ldky=674) NEUTROPHILS ABSOLUTE COUNT (BEAKER) (test 8.42 K/ L 1.56-6.13 gwfc=408) LYMPHOCYTES ABSOLUTE COUNT (BEAKER) (test 2.90 K/ L 1.18-3.74 qixf=893) MONOCYTES ABSOLUTE COUNT (BEAKER) (test 0.79 K/ L 0.24-0.36 pbex=931) EOSINOPHILS ABSOLUTE COUNT (BEAKER) (test 0.07 K/ L 0.04-0.36 zocr=115) BASOPHILS ABSOLUTE COUNT (BEAKER) (test 0.05 K/ L 0.01-0.08 udvg=862) IMMATURE GRANULOCYTES-RELATIVE PERCENT (BEAKER) 1 % 0-1 (test qvjb=5797) POCT-GLUCOSE [id number] 13:38:00 Test Item Value Reference Range Comments POC-GLUCOSE METER (BEAKER) 219 mg/dL 70-110 TESTED AT [address] (test jhss=9717) [place] [address] POCT-GLUCOSE [id number] 12:34:00 Test Item Value Reference Range Comments POC-GLUCOSE METER (BEAKER) 193 mg/dL 70-110 TESTED AT [address] (test gglv=5463) [place] [address] POCT-GLUCOSE [id number] 16:17:00 Test Item Value Reference Range Comments POC-GLUCOSE METER (BEAKER) 244 mg/dL 70-110 TESTED AT [address] (test occh=2354) [place] [address] POCT-GLUCOSE [id number] 12:08:00 Test Item Value Reference Range Comments POC-GLUCOSE METER (BEAKER) 229 mg/dL 70-110 TESTED AT [address] (test owxp=4091) [place] [address] POCT-GLUCOSE [id number] 08:27:00 Test Item Value Reference Range Comments POC-GLUCOSE METER (BEAKER) 280 mg/dL 70-110 TESTED AT [address] (test gemu=5238) [facility] [address] OSMOLALITY, [id number] 05:16:00 Test Item Value Reference Range Comments OSMOLALITY URINE (BEAKER) (test dres=520) 340 mOsm/kg 40-1,400 SPECIFIC GRAVITY, [id number] 04:53:00 Test Item Value Reference Range Comments SPECIFIC GRAVITY UA (BEAKER) (test ccev=591) 1.010 1.001-1.035 POCT-GLUCOSE [id number] 22:29:00 Test Item Value Reference Range Comments POC-GLUCOSE METER (BEAKER) 257 mg/dL 70-110 TESTED AT [address] (test iswq=8447) [place] [address] BASIC METABOLIC [id number] 17:49:00 Test Item Value Reference Range Comments SODIUM (BEAKER) (test 137 meq/L 136-145 ctqw=849) POTASSIUM (BEAKER) (test 4.6 meq/L 3.5-5.1 djon=109) CHLORIDE (BEAKER) (test 102 meq/L 98-107 fbmq=635) CO2 (BEAKER) (test 26 meq/L 22-29 gvyo=360) BLOOD UREA NITROGEN 14 mg/dL 7-21 (BEAKER) (test mair=580) CREATININE (BEAKER) (test 0.78 mg/dL 0.57-1.25 vtlt=147) GLUCOSE RANDOM (BEAKER) 246 mg/dL 70-105 (test cbbd=995) CALCIUM (BEAKER) (test 8.7 mg/dL 8.4-10.2 pvwx=797) EGFR (BEAKER) (test 79 mL/min/1.73 sq m ESTIMATED GFR IS NOT jeru=9463) ACCURATE CREATININE CLEARANCE IN PREDICTING GLOMERULAR FILTRATION RATE. ESTIMATED GFR IS NOT APPLICABLE FOR DIALYSIS PATIENTS. POCT-GLUCOSE [id number] 17:02:00 Test Item Value Reference Range Comments POC-GLUCOSE METER (BEAKER) 235 mg/dL 70-110 TESTED AT [address] (test uhvh=9256) [place] [address] POCT-GLUCOSE [id number] 12:06:00 Test Item Value Reference Range Comments POC-GLUCOSE METER (BEAKER) 249 mg/dL 70-110 TESTED AT [address] (test lvgq=1165) [place] [address] POCT-GLUCOSE [id number] 09:40:00 Test Item Value Reference Range Comments POC-GLUCOSE METER (BEAKER) 278 mg/dL 70-110 TESTED AT [address] (test pxxd=9503) [place] [address] BASIC METABOLIC [id number] 06:14:00 Test Item Value Reference Range Comments SODIUM (BEAKER) (test 141 meq/L 136-145 eoqz=149) POTASSIUM (BEAKER) (test 4.1 meq/L 3.5-5.1 nvyy=305) CHLORIDE (BEAKER) (test 104 meq/L 98-107 bfmw=840) CO2 (BEAKER) (test 30 meq/L 22-29 fzzf=179) BLOOD UREA NITROGEN 14 mg/dL 7-21 (BEAKER) (test jqpc=460) CREATININE (BEAKER) (test 0.70 mg/dL 0.57-1.25 npct=415) GLUCOSE RANDOM (BEAKER) 146 mg/dL 70-105 (test oosr=848) CALCIUM (BEAKER) (test 9.4 mg/dL 8.4-10.2 oiyz=492) EGFR (BEAKER) (test 89 mL/min/1.73 sq m ESTIMATED GFR IS NOT zbxy=3634) ACCURATE CREATININE CLEARANCE IN PREDICTING GLOMERULAR FILTRATION RATE. ESTIMATED GFR IS NOT APPLICABLE FOR DIALYSIS PATIENTS. [id number] 06:03:00 Test Item Value Reference Range Comments PROTIME (BEAKER) (test hgmf=227) 13.8 seconds 11.7-14.7 INR (BEAKER) (test ccmx=562) 1.1 <=5.9 PARTIAL THROMBOPLASTIN TIME (BEAKER) (test 32.0 seconds 22.5-36.0 syhm=913) RECOMMENDED COUMADIN/WARFARIN INR THERAPY RANGESSTANDARD DOSE: 2.0 - 3.0 Includes: PROPHYLAXIS forvenous thrombosis, systemic embolization; TREATMENT for venous thrombosis and/or pulmonary embolus.HIGH RISK: Target INR is 2.5-3.5 for patients with mechanical heart valves. SCREEN, [id number] 05: 59:00 Test Item Value Reference Range Comments TEST URINE (BEAKER) (test gsik=059) Negative POCT-GLUCOSE [id number] 05:46:00 Test Item Value Reference Range Comments POC-GLUCOSE METER (BEAKER) 140 mg/dL 70-110 TESTED AT [facility] [address] [facility] (test xtlb=0502) [facility] [address] CBC W/PLT COUNT & AUTO [id number] 05:46:00 Test Item Value Reference Range Comments WHITE BLOOD CELL COUNT (BEAKER) (test yvgj=250) 9.6 K/ L 3.5-10.5 RED BLOOD CELL COUNT (BEAKER) (test ibwc=903) 5.00 M/ L 3.93-5.22 HEMOGLOBIN (BEAKER) (test lwxn=581) 14.0 GM/DL 11.2-15.7 HEMATOCRIT (BEAKER) (test awcw=729) 42.1 % 34.1-44.9 MEAN CORPUSCULAR VOLUME (BEAKER) (test xmdz=530) 84.2 fL 79.4-94.8 MEAN CORPUSCULAR HEMOGLOBIN (BEAKER) (test 28.0 pg 25.6-32.2 xcoo=959) MEAN CORPUSCULAR HEMOGLOBIN CONC (BEAKER) (test 33.3 GM/DL 32.2-35.5 ccqm=545) RED CELL DISTRIBUTION WIDTH (BEAKER) (test 13.0 % 11.7-14.4 swzt=994) PLATELET COUNT (BEAKER) (test hadt=640) 227 K/CU MM 150-450 MEAN PLATELET VOLUME (BEAKER) (test rxcn=195) 11.8 fL 9.4-12.3 NUCLEATED RED BLOOD CELLS (BEAKER) (test 0 /100 WBC 0-0 iqni=154) NEUTROPHILS RELATIVE PERCENT (BEAKER) (test 52 % hqnp=575) LYMPHOCYTES RELATIVE PERCENT (BEAKER) (test 38 % vzvf=070) MONOCYTES RELATIVE PERCENT (BEAKER) (test 6 % sacv=990) EOSINOPHILS RELATIVE PERCENT (BEAKER) (test 3 % cefu=810) BASOPHILS RELATIVE PERCENT (BEAKER) (test 1 % htvh=058) NEUTROPHILS ABSOLUTE COUNT (BEAKER) (test 5.03 K/ L 1.56-6.13 adhv=269) LYMPHOCYTES ABSOLUTE COUNT (BEAKER) (test 3.62 K/ L 1.18-3.74 ueby=058) MONOCYTES ABSOLUTE COUNT (BEAKER) (test 0.62 K/ L 0.24-0.36 cqnp=858) EOSINOPHILS ABSOLUTE COUNT (BEAKER) (test 0.27 K/ L 0.04-0.36 eypi=267) BASOPHILS ABSOLUTE COUNT (BEAKER) (test 0.05 K/ L 0.01-0.08 zirs=631) IMMATURE GRANULOCYTES-RELATIVE PERCENT (BEAKER) 1 % 0-1 (test qpie=5631) POCT-GLUCOSE [id number] 21:27:00 Test Item Value Reference Range Comments POC-GLUCOSE METER (BEAKER) 223 mg/dL 70-110 TESTED AT [address] (test ioeo=7718) [place] [address] POCT-GLUCOSE [id number] 17:26:00 Test Item Value Reference Range Comments POC-GLUCOSE METER (BEAKER) 223 mg/dL 70-110 TESTED AT [address] (test flth=2785) [place] [address] BASIC METABOLIC [id number] 16:43:00 Test Item Value Reference Range Comments SODIUM (BEAKER) (test 139 meq/L 136-145 jrvm=246) POTASSIUM (BEAKER) (test 4.5 meq/L 3.5-5.1 Specimen slightly nofk=719) hemolyzed CHLORIDE (BEAKER) (test 102 meq/L 98-107 kzwu=553) CO2 (BEAKER) (test 29 meq/L 22-29 twdd=694) BLOOD UREA NITROGEN 16 mg/dL 7-21 (BEAKER) (test kkej=686) CREATININE (BEAKER) (test 0.76 mg/dL 0.57-1.25 Specimen slightly lrds=073) hemolyzed GLUCOSE RANDOM (BEAKER) 217 mg/dL 70-105 (test kryi=807) CALCIUM (BEAKER) (test 9.6 mg/dL 8.4-10.2 feds=102) EGFR (BEAKER) (test 81 mL/min/1.73 sq m ESTIMATED GFR IS NOT jndn=2968) ACCURATE CREATININE CLEARANCE IN PREDICTING GLOMERULAR FILTRATION RATE. ESTIMATED GFR IS NOT APPLICABLE FOR DIALYSIS PATIENTS. POCT-GLUCOSE [id number] 09:06:00 Test Item Value Reference Range Comments POC-GLUCOSE METER (BEAKER) 265 mg/dL 70-110 TESTED AT [address] (test xklt=4650) [place] [address] POCT-GLUCOSE [id number] 00:22:00 Test Item Value Reference Range Comments POC-GLUCOSE METER (BEAKER) 210 mg/dL 70-110 TESTED AT [address] (test vfyq=2724) [place] [address] POCT-GLUCOSE [id number] 20:27:00 Test Item Value Reference Range Comments POC-GLUCOSE METER (BEAKER) 235 mg/dL 70-110 TESTED AT [address] (test rzub=5753) [place] [address] POCT-GLUCOSE [id number] 17:10:00 Test Item Value Reference Range Comments POC-GLUCOSE METER (BEAKER) 264 mg/dL 70-110 TESTED AT [address] (test oann=1494) [place] [address] POCT-GLUCOSE [id number] 16:00:00 Test Item Value Reference Range Comments POC-GLUCOSE METER (BEAKER) 242 mg/dL 70-110 TESTED AT [address] (test wqsc=5262) [place] [address] POCT-GLUCOSE [id number] 08:54:00 Test Item Value Reference Range Comments POC-GLUCOSE METER (BEAKER) 224 mg/dL 70-110 TESTED AT [address] (test cfny=0745) [place] [address] POCT-GLUCOSE [id number] 21:30:00 Test Item Value Reference Range Comments POC-GLUCOSE METER (BEAKER) 254 mg/dL 70-110 TESTED AT [address] (test rcxv=2533) [place] [address] POCT-GLUCOSE [id number] 17:23:00 Test Item Value Reference Range Comments POC-GLUCOSE METER (BEAKER) 193 mg/dL 70-110 TESTED AT [address] (test tnkf=6546) [place] [address] POCT-GLUCOSE [id number] 11:53:00 Test Item Value Reference Range Comments POC-GLUCOSE METER (BEAKER) 179 mg/dL 70-110 TESTED AT [address] (test ofmw=7052) [place] [address] [id number] 10:15:00 Test Item Value Reference Range Comments CORTISOL, TOTAL (BEAKER) (test xzgr=6591) 4.7 ug/dL 3.7-19.4 POCT-GLUCOSE [id number] 08:07:00 Test Item Value Reference Range Comments POC-GLUCOSE METER (BEAKER) 184 mg/dL 70-110 TESTED AT [address] (test flxx=6017) [place] [address] CT, BRAIN, WITHOUT [id number] 22:07:00FINAL REPORT CT Head without contrast CLINICAL [...] [place] Verified Date/Time: 06/20/2018 22:07:25 Reading Location: [address] Transitional Reading Room POCT-GLUCOSE [id number] 21:00:00 Test Item Value Reference Range Comments POC-GLUCOSE METER (BEAKER) 227 mg/dL 70-110 TESTED AT [address] (test xpoq=4295) [place] [address] POCT-GLUCOSE [id number] 16:57:00 Test Item Value Reference Range Comments POC-GLUCOSE METER (BEAKER) 216 mg/dL 70-110 TESTED AT [address] (test psov=4546) [place] [id number] POCT-GLUCOSE [id number] 13:11:00 Test Item Value Reference Range Comments POC-GLUCOSE METER (BEAKER) 198 mg/dL 70-110 TESTED AT [address] (test eeei=4166) [place] [id number] POCT-GLUCOSE [id number] 07:47:00 Test Item Value Reference Range Comments POC-GLUCOSE METER (BEAKER) 213 mg/dL 70-110 TESTED AT [address] (test xuem=9398) [place] [address] BASIC METABOLIC [id number] 06:57:00 Test Item Value Reference Range Comments SODIUM (BEAKER) (test 138 meq/L 136-145 jfjr=194) POTASSIUM (BEAKER) (test 3.9 meq/L 3.5-5.1 yega=305) CHLORIDE (BEAKER) (test 105 meq/L 98-107 lbjs=710) CO2 (BEAKER) (test 24 meq/L 22-29 ifhl=334) BLOOD UREA NITROGEN 12 mg/dL 7-21 (BEAKER) (test ytmm=568) CREATININE (BEAKER) (test 0.73 mg/dL 0.57-1.25 tkrn=429) GLUCOSE RANDOM (BEAKER) 192 mg/dL 70-105 (test wbiv=920) CALCIUM (BEAKER) (test 8.8 mg/dL 8.4-10.2 vewl=663) EGFR (BEAKER) (test 85 mL/min/1.73 sq m ESTIMATED GFR IS NOT fljt=3878) ACCURATE CREATININE CLEARANCE IN PREDICTING GLOMERULAR FILTRATION RATE. ESTIMATED GFR IS NOT APPLICABLE FOR DIALYSIS PATIENTS. POCT-GLUCOSE [id number] 05:24:00 Test Item Value Reference Range Comments POC-GLUCOSE METER (BEAKER) 192 mg/dL 70-110 TESTED AT [facility] [address] [facility] (test ndvc=8762) [facility] [address] [address], [place] [id number] 01:03:00FINAL REPORT CLINICAL HISTORY: Stroke TECHNIQUE: Initially, [...] Verified Date/ Time: 06/20/2018 01:03:44 Reading Location: [address] Transitional Reading Room [facility], [place], [id number] 01:03:00FINAL REPORT CLINICAL HISTORY: Stroke TECHNIQUE: Initially, [...] Date/ Time: 06/20/2018 01:03:44 Reading Location: [address] Reading Room POCT-GLUCOSE [id number] 00:40:00 Test Item Value Reference Range Comments POC-GLUCOSE METER (BEAKER) 283 mg/dL 70-110 TESTED AT [address] (test jouj=2882) [facility] [address] POCT-GLUCOSE [id number] 21:21:00 Test Item Value Reference Range Comments POC-GLUCOSE METER (BEAKER) 343 mg/dL 70-110 TESTED AT [address] (test imws=6367) [facility] [address] SCREEN, [id number] 18:52:00 Test Item Value Reference Range Comments TEST URINE (BEAKER) (test djot=396) Negative POCT-GLUCOSE [id number] 17:17:00 Test Item Value Reference Range Comments POC-GLUCOSE METER (BEAKER) 287 mg/dL 70-110 TESTED AT [facility] [address] [facility] (test owum=9427) [facility] [address] [id number] 15:59:00 Test Item Value Reference Range Comments RPR SCREEN (BEAKER) (test dsdv=301) Nonreactive Nonreactive POCT-GLUCOSE [id number] 15:07:00 Test Item Value Reference Range Comments POC-GLUCOSE METER (BEAKER) 323 mg/dL 70-110 TESTED AT [address] (test xdrl=5179) [place] [id number] T4, [id number] 13:11:00 Test Item Value Reference Range Comments FREE T4 (BEAKER) (test nlly=849) 0.89 ng/dL 0.70-1.48 HIV-1 ANTIGEN WITH HIV-1/2 [id number] 13:11:00 Test Item Value Reference Range Comments HIV-1 ANTIGEN WITH HIV 1\\T\\2 ANTIBODY (2) Nonreactive Nonreactive (BEAKER) (test jyax=8370) RAPID DRUG SCREEN, [id number] 12:47:00 Test Item Value Reference Range Comments BARBITURATE URINE (BEAKER) (test ssjz=780) Negative Negative BENZODIAZEPINE SCREEN URINE (BEAKER) (test Negative Negative winr=671) COCAINE (METAB.) SCREEN (BEAKER) (test gryr=1726) Negative Negative METHADONE SCREEN (BEAKER) (test htly=5168) Negative Negative OPIATE SCREEN URINE (BEAKER) (test vifq=995) Negative Negative CANNABINOID SCREEN URINE (BEAKER) (test ycrl=019) Negative Negative AMPH/METHAMPH SCREEN (BEAKER) (test jnbj=2590) Negative Negative PHENCYCLIDINE SCREEN URINE (BEAKER) (test pvkm=109) Negative Negative OXYCODONE SCREEN URINE (BEAKER) (test pqez=9130) Negative Negative DRUG CUTOFF CONC.Cocaine 300 ng/mL Cannabinoid 50 ng/mL Benzodiazepine 200 ng/mLBarbiturate 200 ng/ mLPhencyclidine 25 ng/mLOpiate 300 ng/mLMethadone 300 ng/mLAmphetamine/ 1000 ng/mL MethamphetamineOxycodone 300 ng/mLThis assay provides an unconfirmed qualitative test result for the clinical management of patients in emergency situations. Chain of custody not maintained. Some wzqk-tge-znaijca medications, as well as adulterants, may cause inaccurate results. Clinical correlation should be applied. A more comprehensive drug screen or confirmation of a detected drug may be performed upon request.POCT-GLUCOSE [id number] 12:37:00 Test Item Value Reference Range Comments POC-GLUCOSE METER (BEAKER) 292 mg/dL 70-110 TESTED AT [facility] [address] [facility] (test dyuy=9220) [facility] [address] HEMOGLOBIN [id number] 12:35:00 Test Item Value Reference Range Comments HEMOGLOBIN A1C (BEAKER) (test gcnf=814) 7.9 % 4.3-6.1 OSMOLALITY, [id number] 12:34:00 Test Item Value Reference Range Comments OSMOLALITY, SERUM (BEAKER) (test xmxo=127) 310 mOsm/kg 275-295 C-REACTIVE [id number] 12:28:00 Test Item Value Reference Range Comments C-REACTIVE PROTEIN (BEAKER) (test sapz=474) 0.81 mg/dL 0.00-0.50 OSMOLALITY, [id number] 12:22:00 Test Item Value Reference Range Comments OSMOLALITY URINE (BEAKER) (test apcr=408) 247 mOsm/kg 40-1,400 CBC W/PLT COUNT & AUTO [id number] 12:14:00 Test Item Value Reference Range Comments WHITE BLOOD CELL COUNT (BEAKER) (test mcpy=504) 15.1 K/ L 3.5-10.5 RED BLOOD CELL COUNT (BEAKER) (test innf=235) 5.15 M/ L 3.93-5.22 HEMOGLOBIN (BEAKER) (test mjat=841) 14.1 GM/DL 11.2-15.7 HEMATOCRIT (BEAKER) (test zrrc=289) 42.3 % 34.1-44.9 MEAN CORPUSCULAR VOLUME (BEAKER) (test tfly=398) 82.1 fL 79.4-94.8 MEAN CORPUSCULAR HEMOGLOBIN (BEAKER) (test 27.4 pg 25.6-32.2 incz=582) MEAN CORPUSCULAR HEMOGLOBIN CONC (BEAKER) (test 33.3 GM/DL 32.2-35.5 mnoi=212) RED CELL DISTRIBUTION WIDTH (BEAKER) (test 12.9 % 11.7-14.4 vlwt=475) PLATELET COUNT (BEAKER) (test ttrm=068) 278 K/CU MM 150-450 MEAN PLATELET VOLUME (BEAKER) (test wsxh=325) 11.5 fL 9.4-12.3 NUCLEATED RED BLOOD CELLS (BEAKER) (test 0 /100 WBC 0-0 ztjb=191) NEUTROPHILS RELATIVE PERCENT (BEAKER) (test 87 % ghwg=348) LYMPHOCYTES RELATIVE PERCENT (BEAKER) (test 10 % sjhs=367) MONOCYTES RELATIVE PERCENT (BEAKER) (test 3 % bqhl=612) EOSINOPHILS RELATIVE PERCENT (BEAKER) (test 0 % yomx=984) BASOPHILS RELATIVE PERCENT (BEAKER) (test 0 % fgpx=874) NEUTROPHILS ABSOLUTE COUNT (BEAKER) (test 13.06 K/ L 1.56-6.13 umcw=577) LYMPHOCYTES ABSOLUTE COUNT (BEAKER) (test 1.51 K/ L 1.18-3.74 xmlz=984) MONOCYTES ABSOLUTE COUNT (BEAKER) (test 0.38 K/ L 0.24-0.36 tacd=969) EOSINOPHILS ABSOLUTE COUNT (BEAKER) (test 0.00 K/ L 0.04-0.36 oxcu=604) BASOPHILS ABSOLUTE COUNT (BEAKER) (test 0.02 K/ L 0.01-0.08 rrdp=785) IMMATURE GRANULOCYTES-RELATIVE PERCENT (BEAKER) 1 % 0-1 (test wvzc=8819) POCT-GLUCOSE [id number] 10:30:00 Test Item Value Reference Range Comments POC-GLUCOSE METER (BEAKER) 341 mg/dL 70-110 TESTED AT [address] (test dauj=3749) [facility] [address] [id number] 06:17:00 Test Item Value Reference Range Comments PROLACTIN (BEAKER) (test itlx=438) 23.34 ng/mL 5.18-26.53 POCT-GLUCOSE [id number] 05:55:00 Test Item Value Reference Range Comments POC-GLUCOSE METER (BEAKER) 285 mg/dL 70-110 TESTED AT [address] (test sofa=3429) [facility] [address] MR, BRAIN, [id number] 02:25:00Pituitary protocolCr 0.6FINAL REPORT MRI brain with and without contrast Comparison: None. 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 Discussion: Multiplanar MR imaging of the brain and sella was provided ufx-dzx-bbrr IV gadolinium administration using T1, T2, FLAIR, [...] MDReport Verified Date/Time: 06/19/2018 02:25:15 Reading Location: [address] Body Reading Room TSH/FREE T4 IF [id number] 00:26:00 Test Item Value Reference Range Comments THYROID STIMULATING HORMONE (BEAKER) (test 0.41 uIU/mL 0.35-4.94 xuhb=742) BASIC METABOLIC [id number] 00:07:00 Test Item Value Reference Range Comments SODIUM (BEAKER) (test 136 meq/L 136-145 fmws=068) POTASSIUM (BEAKER) (test 4.0 meq/L 3.5-5.1 pnjh=148) CHLORIDE (BEAKER) (test 103 meq/L 98-107 dfui=032) CO2 (BEAKER) (test 20 meq/L 22-29 wrnp=952) BLOOD UREA NITROGEN 11 mg/dL 7-21 (BEAKER) (test yssl=502) CREATININE (BEAKER) (test 0.84 mg/dL 0.57-1.25 whmg=624) GLUCOSE RANDOM (BEAKER) 357 mg/dL 70-105 (test nosm=721) CALCIUM (BEAKER) (test 9.0 mg/dL 8.4-10.2 xncm=659) EGFR (BEAKER) (test 72 mL/min/1.73 sq m ESTIMATED GFR IS NOT nhtr=3654) ACCURATE CREATININE CLEARANCE IN PREDICTING GLOMERULAR FILTRATION RATE. ESTIMATED GFR IS NOT APPLICABLE FOR DIALYSIS PATIENTS. URINALYSIS W/ REFLEX URINE [id number] 23:13:00 Test Item Value Reference Range Comments COLOR (BEAKER) (test bhbi=156) Yellow CLARITY (BEAKER) (test uuel=911) Clear SPECIFIC GRAVITY UA (BEAKER) (test jfzm=845) 1.011 1.001-1.035 PH UA (BEAKER) (test qshb=628) 5.0 5.0-8.0 PROTEIN UA (BEAKER) (test buta=865) Negative Negative GLUCOSE UA (BEAKER) (test esmt=067) >1000 mg/dL Negative KETONES UA (BEAKER) (test rmiu=708) 20 mg/dL Negative BILIRUBIN UA (BEAKER) (test nbyy=039) Negative Negative BLOOD UA (BEAKER) (test zdlg=372) Negative Negative NITRITE UA (BEAKER) (test stky=919) Negative Negative LEUKOCYTE ESTERASE UA (BEAKER) (test ioiy=697) Negative Negative UROBILINOGEN UA (BEAKER) (test wayk=981) 0.2 mg/dL 0.2-1.0 RBC UA (BEAKER) (test eahu=015) < /HPF WBC UA (BEAKER) (test ozsl=943) < /HPF SQUAMOUS EPITHELIAL (BEAKER) (test korr=726) < /HPF SOURCE(BEAKER) (test syoe=6321)
--- OUTSIDE RECORDS SUMMARY | 2018-12-08 18:08 | XMS REPORT ---
[...] End Status Dosage System Date Date Diflucan [facility] 94711567638 150 MG Orally Feb 20Feb Active 1 tablet Once a day 2017 Nitrofurantoin ND 50586512044 100 MG Orally Feb 20Feb Active 1 capsule Macrocrystal BID 2017 12, with food 2018 or milk GlyBURIDE ND 07381100339 5 MG Orally January 21, Active 1 tablet Once a day 2017 with breakfast or the first main meal of the day Levothyroxine ND 26641123422 88 MCG Oral Active TAKE 1 Sodium TABLET BY MOUTH EVERY MORNING Losartan ND 05081427838 50-12.5 MG February 12, Active 1 tablet Potassium-HCTZ Orally Once a 2018 day Valsartan-Hydroch ND 52832381343 80-12.5 MG Oral Active TAKE 1 lorothiazide TABLET BY MOUTH EVERY DAY Results Name Result Date Reference Range Unit Abnormality Flag THINPREP TIS PAP AND HPV mRNA E6/E7, CHLAMYDIA/N.GONORRHOEAE URINALYSIS AUTO W/O SCOPE (39602) ----PROTEIN N [id number] ----pH 5.5 20180220 ----NIT P [id number] ----CONCEPCION 1+ [id number] ----URO 1.0 [id number] ----SPECIFIC GRAVITY 1.015 20180220 ----BLO TR [id number] ----BILIRUBIN N [id number] ----KETONES N [id number] ----GLUCOSE N [id number] Summary Purpose eClinicalWorks Submission
--- OUTSIDE RECORDS SUMMARY | 2018-12-08 18:08 | XMS REPORT ---
:1970 Author Organization eClinicalWorks Care Team Providers Name Role Phone [place], [place] Provider Role Unavailable Allergies No Known [...]
--- OUTSIDE RECORDS SUMMARY | 2018-12-08 18:08 | XMS REPORT ---
[...] Dosage System Date Date Atorvastatin Calcium [facility] 99304905765 10 MG Oral Active TAKE 1 TABLET BY MOUTH AT BEDTIME. ProAir HFA [facility] 03706808479 108 (90 Base) Active USE 1-2 MCG/ACT PUFFS BY Inhalation MOUTH EVERY 4-6 HOURS Levothyroxine Sodium ND 45415041728 88 MCG Oral Active TAKE 1 TABLET BY MOUTH EVERY MORNING Valsartan-Hydrochlor ND 73422418060 80-12.5 MG Active TAKE 1 othiazide Oral TABLET BY MOUTH EVERY DAY Benzonatate ND 43575226526 200 MG Oral Active TAKE ONE CAPSULE BY MOUTH 3 TIMES A DAY NEEDED FOR COUGH MethylPREDNISolone ND 67620726805 4 MG Oral Active TAKE 6 TABLETS ON DAY 1 DIRECTED ON PACKAGE AND DECREASE BY 1 TAB EACH DAY FOR A TOTAL OF 6 DAYS GlyBURIDE ND 24551093962 5 MG Orally Iraida Active 1 tablet Once a day 2017 breakfast or the first main meal of the day MetFORMIN HCl ER ND 24655290585 750 MG Oral Active TAKE 1 TABLET BY MOUTH 2 TIMES DAILY BEFORE BREAKFAST AND DINNER. Results No Known Results Summary Purpose eClinicalWorks Submission
--- OUTSIDE RECORDS SUMMARY | 2018-12-08 18:08 | XMS REPORT ---
[...] Date Status Dosage System Date Losartan [facility] 68905445491 50-12.5 MG February 12, Active 1 tablet Potassium-HCTZ Orally Once a 2017 day Results No Known Results Summary Purpose eClinicalWorks Submission
--- OUTSIDE RECORDS SUMMARY | 2018-12-08 18:09 | XMS REPORT ---
[...] Status Dosage System Date Date Amlodipine ND 98395117353 10 MG Orally Active 1 tablet Besylate Once a day MetFORMIN HCl ER ND 94219622094 750 MG Orally Active 1 tablet Once a day with evening meal Levothyroxine ND 14877971007 88 MCG Oral Active TAKE 1 Sodium TABLET BY MOUTH EVERY MORNING Hydrocortisone ND 76731288217 10 MG Orally Active 1 tablet every 12 hrs with food or milk Losartan ND 03348429162 50 MG Orally Active 1 tablet Potassium Once a day GlyBURIDE [facility] [address]-94 5 MG Orally Active 1/2 tablet BID with breakfast or the first main meal of the day Trulicity [facility] 17226702179 0.75mg/0.5ml October Active one SQ once a week , , injection 2018 2018 Fluconazole [facility] 90355865962 150 MG Orally October Active 1 tablet Once a day 2018 2019 Results Name Result Date Reference Range Unit Abnormality Flag HEMOGLOBIN A1C ----A1C 9.8 [id number] Summary Purpose eClinicalWorks Submission
--- OUTSIDE RECORDS SUMMARY | 2018-12-08 18:09 | XMS REPORT ---
[...] End Date Status Dosage System Date Losartan [facility] 82400600409 50-12.5 MG Active 1 tablet Potassium-HCTZ Orally Once a day Results No Known Results Summary Purpose eClinicalWorks Submission
--- OUTSIDE RECORDS SUMMARY | 2018-12-08 18:09 | XMS REPORT ---
[...] Problem Allergic rhinitis, unspecified J30.9 Active Medications No Known Medications Results No Known Results Summary Purpose eClinicalWorks Submission
--- OUTSIDE RECORDS SUMMARY | 2018-12-08 18:09 | XMS REPORT ---
[...] Status Dosage System Date Date Hydrochlorothiazide [facility] 27128952809 12.5 MG Orally Jun 07, Active 1 tablet Once a day 2018 in the morning Levothyroxine Sodium ND 50353016029 88 MCG Oral Active TAKE 1 TABLET BY MOUTH EVERY MORNING Metformin HCl [facility] [address]-25 500 MG Orally Active 1 1/2 bid tablets with a meal Amlodipine Besylate ND 67740182756 10 MG Orally Active 1 tablet Once a day Hydrocortisone ND 28519668009 10 MG Orally Active 1 tablet every 12 hrs with food or milk Losartan [facility] 39123720368 50-12.5 MG Active 1 tablet Potassium-HCTZ Orally Once a day GlyBURIDE [facility] [address]-65 5 MG Orally Active 1/2 tablet BID with breakfast or the first main meal of the day Losartan Potassium [facility] 94846609513 50 MG Orally Active 1 tablet Once a day Results No Known Results Summary Purpose eClinicalWorks Submission
[2018-12-08 18:37] LABS: Absolute Lymphocytes (CBC) 2.8 K/uL (0.7-4.9); Absolute Monocytes 0.7 K/uL (0.1-1.3); Basophils % 1.2 % (0-1.3); Eosinophils % 1.5 % (0-4.4); Hematocrit 43.4 % (36.0-45.0); Lymphocytes % 25.7 % (15.3-44.8); MPV 9.6 fL (7.6-11.3); Monocytes % 6.2 % (3.3-12.3); RBC Red Blood Cell Count 5.47 M/uL (3.86-4.86)
[2018-12-08 18:41] LABS: Protime INR 1.02
[2018-12-08 19:03] LABS: ALT/SGPT 96 U/L (12-78); AST/SGOT 49 U/L (15-37); Albumin 3.5 g/dL (3.4-5.0); Alkaline Phosphatase 85 U/L (45-117); BUN Blood Urea Nitrogen 14 mg/dL (7-18); Bicarbonate 28 mmol/L (21-32); Bilirubin Direct 0.1 mg/dL (0-0.2); Bilirubin Total 0.6 mg/dL (0.2-1.0); Glucose Level 206 mg/dL (74-106); Magnesium 2.2 mg/dL (1.8-2.4); NT PRO-BNP 39 pg/mL (<125); Potassium 3.7 mmol/L (3.5-5.1); Protein, Total 7.5 g/dL (6.4-8.2); Sodium Level 138 mmol/L (136-145); Troponin (Emerg Dept Use Only) < 0.02 ng/mL (0.0-0.045)
--- NOTE | 2018-12-08 19:09 | RAD REPORT ---
EXAM DESCRIPTION: CT - Head Brain Wo Cont - 12/08/2018 7:00 pm CLINICAL HISTORY: PAIN Headache COMPARISON: Head Brain Wo Cont dated 06/26/2018; Head Brain Wo Cont dated 06/18/2018; Head angio date d 06/18/2018; Stone Protocol dated 06/18/2018 TECHNIQUE: All CT scans are performed using dose optimization technique as appropriate and may inclu de automated exposure control or mA/KV adjustment according to patient size. FINDINGS: No intracranial hemorrhage, hydrocephalus or extra-axial fluid collection.No areas of brai n edema or evidence of midline shift. Postoperative changes are seen along the posterior wall of the sphenoid sinus and sella turcica regio n with mild thickened soft tissue in the region measuring up to 7 mm along the right lateral wall of the sphenoid sinus. The calvarium is intact. IMPRESSION: No acute intracranial abnormality. Postsurgical changes posterior wall sphenoid sinus with evidence of soft tissue thickening present as detailed.
--- NOTE | 2018-12-08 19:22 | RAD REPORT ---
EXAM DESCRIPTION: RAD - Chest Single View - 12/08/2018 7:16 pm CLINICAL HISTORY: CHEST PAIN Chest pain. COMPARISON: Chest Single View dated 10/13/2018; Chest Single View dated 07/12/2018; Chest Single View dated 06/30/2018; Chest Single View dated 06/18/2018 FINDINGS: Portable technique limits examination quality. The lungs are grossly clear. The heart is normal in size. No displaced fractures. IMPRESSION: No acute intrathoracic process suspected.
[2018-12-08] MEDS ORDERED: DIPHENHYDRAMINE 50 MG/ML VIAL ONE (20:42)
[2018-12-08] MEDS ORDERED: KETOROLAC 30 MG/ML INJ ONE (20:42)
[2018-12-08] MEDS ORDERED: ONDANSETRON 4 MG/2 ML VIAL ONE (20:42)
--- NOTE | 2018-12-08 21:22 | ER ---
Nurse's Notes [facility] Name: Chantal Stout Age: 48 yrs Sex: Female : 1970 Arrival Date: 12/08/2018 Time: 18:06 Bed 6 Private MD: Diagnosis: Migraine without aura Presentation: 12/08 18:10 Presenting complaint: Patient states: right jaw/face/head sharp pain, worse every sv started at 0900, BLE swelling over the last couple of weeks that has improved through the day and was told it was bc of her [facility]. c/o right rib pain and chills x 2 days. Denies SOB/dizziness/fall/head injury. Transition of care: patient was not received from another setting of care. Onset of symptoms was December 08, 2018 at 09:00. Risk Assessment: Do you want to hurt yourself or someone else? Patient reports no desire to harm self or others. Initial Sepsis Screen: Does the patient meet any 2 criteria? No. Patient's initial sepsis screen is negative. Does the patient have a suspected source of infection? No. Patient's initial sepsis screen is negative. Care prior to arrival: None. 18:10 Method Of Arrival: Wheelchair sv 18:10 Acuity: NOÉ 2 sv Triage Assessment: 18:10 Headache History: The patient has had previous headaches and this one is different than sv previous episodes, and this one is more severe than previous episodes. General: Appears in no apparent distress. uncomfortable, obese, well developed, Behavior is calm, cooperative, appropriate for age. Pain: Complains of pain in right frontal area, right side of the back of head, right temporal area, right side of forehead, right occipital area, right ear, right nondenominational, right eye, right base of the skull, right zygomatic area, right cheek and right mandible Pain currently is 7 out of 10 on a pain scale. Quality of pain is described as sharp, stabbing, piercing, Pain began 0900 today the headache started Is continuous. Neuro: Level of Consciousness is awake, alert, obeys commands, Oriented to person, place, time, situation, Rip Sawyer are equal bilaterally Moves all extremities. Full function Gait is steady, Speech is normal, Facial symmetry appears normal, Facial symmetry: tongue is midline, Denies dizziness, numbness. Respiratory: Airway is patent Respiratory effort is even, unlabored, Respiratory pattern is regular, symmetrical. Derm: Skin is pink, warm \T\ dry. Musculoskeletal: Range of motion: intact in all extremities. 20:42 Pain: Also complains of nausea. ak1 Historical: - Allergies: 18:23 Bactrim; sv 18:23 Cephalexin; sv 18:23 Codeine; sv 18:23 Iodine; sv 18:23 Levaquin; sv 18:23 Sulfa (Sulfonamide Antibiotics); sv - Home Meds: 18:23 amlodipine 10 mg tab 1 tab once daily [Active]; glyburide 5 mg Oral tab 1 tab once sv daily [Active]; hydrocortisone 10 mg Oral tab 1 tab 2 times per day [Active]; levothyroxine 75 mcg tab 1 tab once daily [Active]; losartan 50 mg Oral tab 1 tab once daily [Active]; metformin 750 mg Oral Tb24 1 tab twice a day [Active]; omeprazole 20 mg Oral cpDR 1 cap once daily [Active]; - PMHx: 18:23 Anemia; Asthma; Diabetes - NIDDM; Hypertension; Hypothyroidism; pituitary tumor- sv surgically removed Jun 24; - PSHx: 18:23 cercival tumor removed; sv - Immunization history:: Adult Immunizations up to date. - Social history:: Smoking status: Patient/guardian denies using tobacco, Patient/guardian denies using alcohol, street drugs. - Ebola Screening: : No symptoms or risks identified at this time. Screenin:31 Abuse screen: Denies threats or abuse. Denies injuries from another. Nutritional hb screening: No deficits noted. Tuberculosis screening: No symptoms or risk factors identified. Fall Risk None identified. Assessment: 18:50 Reassessment: Patient appears in no apparent distress at this time. No changes from previously documented assessment. Patient and/or family updated on plan of care and expected duration. Pain level reassessed. Patient is alert, oriented x 3, equal unlabored respirations, skin warm/dry/pink. 20:10 Reassessment: pt ambulated to restroom with family assistance. ak1 20:41 Reassessment: pt and family informed pt CT is negative. . General: Appears in no ak1 apparent distress. Behavior is calm, cooperative. Pain: Complains of pain in head. Neuro: Level of Consciousness is awake, alert, obeys commands, Oriented to person, place, time, situation, Rip Sawyer are equal bilaterally Moves all extremities. Gait is steady, Speech is normal, Facial symmetry appears normal. Cardiovascular: No deficits noted. Respiratory: No deficits noted. GI: No signs and/or symptoms were reported involving the gastrointestinal system. : No signs and/or symptoms were reported regarding the genitourinary system. EENT: No signs and/or symptoms were reported regarding the EENT system. Derm: No signs and/or symptoms reported regarding the dermatologic system. Musculoskeletal: No signs and/or symptoms reported regarding the musculoskeletal system. 21:31 Reassessment: pt refused 25mg benadryl, requested only 12.5mg provider notified prior ak1 to administration. Vital Signs: 18:15 BP 143 / 83; Pulse 92; Resp 20; Temp 97.9(O); Pulse Ox 98% on R/A; Weight 130.63 kg; sv Height 5 ft. 4 in. (162.56 cm); Pain 7/10; 18:30 BP 136 / 80; Pulse 87; Resp 18; Pulse Ox 97% ; sv 20:41 BP 100 / 56; Pulse 83; Resp 16; Temp 98; Pulse Ox 97% on R/A; ak1 21:04 BP 107 / 70; Pulse 77; Resp 13; Temp 98.1; Pulse Ox 97% on R/A; ak1 18:15 Body Mass Index 49.43 (130.63 kg, 162.56 cm) sv Pilo Coma Score: 12/09 06:34 Eye Response: spontaneous(4). Verbal Response: oriented(5). Motor Response: obeys tw4 commands(6). Total: 15. ED Course: 12/08 18:06 Patient arrived in ED. tw3 18:19 Zuleima Ivory, RN is Primary Nurse. sv 18:21 Triage completed. sv 18:23 Arm band placed on. sv 18:24 EKG done, by ED staff, reviewed by David Gmoez MD. sv 18:31 Patient has correct armband on for positive identification. Placed in gown. Bed in low hb position. Call light in reach. Side rails up X 1. 18:31 Inserted saline lock: 20 gauge in left antecubital area, using aseptic technique. Blood hb collected. 18:[address] via stretcher. sv 18:59 CT completed. Patient tolerated procedure well. Patient moved back from CT. Patient moved to radiology. 19:01 CT Head Brain wo Cont In Process Unspecified. EDMS 19:17 Toni Torres MD is Attending Physician. tw4 19:17 XRAY Chest (1 view) In Process Unspecified. EDMS 20:43 Primary Nurse role handed off by Zuleima Ivory RN ak1 20:43 Clau Carvalho RN is Primary Nurse. ak1 21:31 No provider procedures requiring assistance completed. IV discontinued, intact, ak1 bleeding controlled, No redness/swelling at site. Pressure dressing applied. Administered Medications: 20:39 Drug: Benadryl 12.5 mg Route: IVP; Site: left wrist; ak1 21:30 Follow up: Response: No adverse reaction ak1 20:40 Drug: TORadol 30 mg Route: IVP; Site: left wrist; ak1 21:30 Follow up: Response: No adverse reaction ak1 20:40 Drug: Zofran 4 mg Route: IVP; Site: left wrist; ak1 21:30 Follow up: Response: No adverse reaction ak1 Outcome: 21:21 Discharge ordered by . tw4 21:31 Discharged to home via wheelchair, with family. ak1 21:31 Condition: good 21:31 Discharge instructions given to patient, family, Instructed on discharge instructions, follow up and referral plans. no drinking with medication, no driving heavy equipment, medication usage, Demonstrated understanding of instructions, follow-up care, medications, Prescriptions given X 2. 21:41 Patient left the ED. ak1 Signatures: Dispatcher [employer] EDNY Zuleima Ivory RN RN sv Hagler, Ervin Clau Carvalho RN RN ak1 Mady Schuler RN RN hb Wade, Malena tw3 Toni Torres MD MD tw4 Corrections: (The following items were deleted from the chart) 18:24 18:10 Presenting complaint: Patient states: right jaw/face/head sharp pain, worse every sv started at 0900, BLE swelling over the last couple of weeks that has improved through the day and was told it was bc of her [facility]. c/o right rib pain x 2 days. sv 18:33 18:15 BP 143 / 83; Pulse 92bpm; Resp 20bpm; Pulse Ox 98%; 130.63 kg; Height 5 ft. 4 sv in.; BMI: 49.4; Pain 7/10; sv 18:50 18:45 Reassessment: Pt c/o right outer ankle/bone pain and feels like her leg is sv locking up. Informed Dr Gomez, no further orders. Reassessment: Pt c/o right outer ankle/bone pain and feels like her leg is locking up. Informed Dr Gomez, no further orders. sv
--- NOTE | 2018-12-08 21:22 | EDPHYS ---
Physician Documentation [facility] Name: Chantal Stout Age: 48 yrs Sex: Female : 1970 Arrival Date: 12/08/2018 Time: 18:06 Bed 6 Private MD: ED Physician Toni Torres HPI: 12/09 06:30 This 48 yrs old Female presents to ER via Wheelchair with complaints of Jaw tw4 Pain, Headache. 06:30 The patient complains of pain to the forehead, right ear, right anabaptism and right jaw. tw4 The patient describes the headache as pounding. 06:34 Onset: The symptoms/episode began/occurred this morning. Associated signs and symptoms: tw4 The patient has no apparent associated signs or symptoms. Severity of symptoms: At its worst the pain was moderate, in the emergency department the pain is unchanged. Headache History: The patient has had previous headaches and this one is different than previous episodes, and this one is more severe than previous episodes. The symptoms are alleviated by Darkened room, the symptoms are aggravated by lights, movement, noise. The patient has not experienced similar symptoms in the past. Historical: - Allergies: 12/08 18:23 Bactrim; sv 18:23 Cephalexin; sv 18:23 Codeine; sv 18:23 Iodine; sv 18:23 Levaquin; sv 18:23 Sulfa (Sulfonamide Antibiotics); sv - Home Meds: 18:23 amlodipine 10 mg tab 1 tab once daily [Active]; glyburide 5 mg Oral tab 1 tab once sv daily [Active]; hydrocortisone 10 mg Oral tab 1 tab 2 times per day [Active]; levothyroxine 75 mcg tab 1 tab once daily [Active]; losartan 50 mg Oral tab 1 tab once daily [Active]; metformin 750 mg Oral Tb24 1 tab twice a day [Active]; omeprazole 20 mg Oral cpDR 1 cap once daily [Active]; - PMHx: 18:23 Anemia; Asthma; Diabetes - NIDDM; Hypertension; Hypothyroidism; pituitary tumor- sv surgically removed Jun 24; - PSHx: 18:23 cercival tumor removed; sv - Immunization history:: Adult Immunizations up to date. - Social history:: Smoking status: Patient/guardian denies using tobacco, Patient/guardian denies using alcohol, street drugs. - Ebola Screening: : No symptoms or risks identified at this time. ROS: 12/09 06:34 Constitutional: Negative for fever, chills, and weight loss, Eyes: Negative for injury, tw4 pain, redness, and discharge, Cardiovascular: Negative for chest pain, palpitations, and edema, Respiratory: Negative for shortness of breath, cough, wheezing, and pleuritic chest pain, Abdomen/GI: Negative for abdominal pain, nausea, vomiting, diarrhea, and constipation, Back: Negative for injury and pain, Skin: Negative for injury, rash, and discoloration. Neuro: Positive for headache, Negative for altered mental status, dizziness, gait disturbance. Exam: 06:34 Constitutional: This is a well developed, well nourished patient who is awake, alert, tw4 and in no acute distress. Head/Face: Normocephalic, atraumatic. Chest/axilla: Normal chest wall appearance and motion. Nontender with no deformity. No lesions are appreciated. Cardiovascular: Regular rate and rhythm with a normal S1 and S2. No gallops, murmurs, or rubs. Normal PMI, no JVD. No pulse deficits. Respiratory: Lungs have equal breath sounds bilaterally, clear to auscultation and percussion. No rales, rhonchi or wheezes noted. No increased work of breathing, no retractions or nasal flaring. Abdomen/GI: Soft, non-tender, with normal bowel sounds. No distension or tympany. No guarding or rebound. No evidence of tenderness throughout. Back: No spinal tenderness. No costovertebral tenderness. Full range of motion. MS/ Extremity: Pulses equal, no cyanosis. Neurovascular intact. Full, normal range of motion. Neuro: Awake and alert, GCS 15, oriented to person, place, time, and situation. Cranial nerves II-XII grossly intact. Motor strength 5/5 in all extremities. Sensory grossly intact. Cerebellar exam normal. Normal gait. Vital Signs: 12/08 18:15 BP 143 / 83; Pulse 92; Resp 20; Temp 97.9(O); Pulse Ox 98% on R/A; Weight 130.63 kg; sv Height 5 ft. 4 in. (162.56 cm); Pain 7/10; 18:30 BP 136 / 80; Pulse 87; Resp 18; Pulse Ox 97% ; sv 20:41 BP 100 / 56; Pulse 83; Resp 16; Temp 98; Pulse Ox 97% on R/A; ak1 21:04 BP 107 / 70; Pulse 77; Resp 13; Temp 98.1; Pulse Ox 97% on R/A; ak1 18:15 Body Mass Index 49.43 (130.63 kg, 162.56 cm) sv [place] Coma Score: 12/09 06:34 Eye Response: spontaneous(4). Verbal Response: oriented(5). Motor Response: obeys tw4 commands(6). Total: 15. MDM: 12/08 19:17 Patient medically screened. tw4 12/09 06:34 Data reviewed: vital signs, nurses notes. Data interpreted: Pulse oximetry: tw4 Interpretation: normal. Counseling: I had a detailed discussion with the patient and/or guardian regarding: the historical points, exam findings, and any diagnostic results supporting the discharge/admit diagnosis, lab results, radiology results. Medication response: Toradol partially relieved the patient's pain. Response to treatment: the patient's symptoms have markedly improved after treatment, and as a result, I will discharge patient. Special discussion: I discussed with the patient/guardian in detail that at this point there is no indication for admission to the hospital. It is understood, however, that if the symptoms persist or worsen the patient needs to return immediately for re-evaluation. 12/08 18:19 Order name: Basic Metabolic Panel 12/08 18:19 Order name: CBC with Diff 12/08 18:19 Order name: LFT's 12/08 18:19 Order name: Magnesium 12/08 18:19 Order name: NT PRO-BNP 12/08 18:19 Order name: PT-INR 12/08 18:19 Order name: Troponin (emerg Dept Use Only) 12/08 18:19 Order name: XRAY Chest (1 view) 12/08 18:19 Order name: Basic Metabolic Panel; Complete Time: 19:36 EDMS 12/08 19:36 Interpretation: Normal except: GLUC 206. tw4 12/08 18:19 Order name: CBC with Automated Diff; Complete Time: 19:36 EDMS 12/08 19:36 Interpretation: Normal except: RBC 5.47; MCV 79.3; MCH 26.4. tw4 12/08 18:19 Order name: Liver (Hepatic) Function; Complete Time: 19:37 EDMS 12/08 19:37 Interpretation: Normal except: AST 49; ALT 96; GLOB 4.0; A/G 0.9. tw4 12/08 18:32 Order name: CT Head Brain wo Cont sv 12/08 18:19 Order name: EKG; Complete Time: 18:20 sv 12/08 18:19 Order name: Cardiac monitoring; Complete Time: 18:25 sv 12/08 18:19 Order name: EKG - Nurse/Tech; Complete Time: 18:25 sv 12/08 18:19 Order name: IV Saline Lock; Complete Time: 18:25 sv 12/08 18:19 Order name: Labs collected and sent; Complete Time: 18:24 sv 12/08 18:19 Order name: O2 Per Protocol; Complete Time: 18:25 sv 12/08 18:19 Order name: O2 Sat Monitoring; Complete Time: 18:25 sv Administered Medications: 12/08 20:39 Drug: Benadryl 12.5 mg Route: IVP; Site: left wrist; ak1 21:30 Follow up: Response: No adverse reaction ak1 20:40 Drug: TORadol 30 mg Route: IVP; Site: left wrist; ak1 21:30 Follow up: Response: No adverse reaction ak1 20:40 Drug: Zofran 4 mg Route: IVP; Site: left wrist; ak1 21:30 Follow up: Response: No adverse reaction ak1 Disposition: 12/08/18 21:21 Discharged to Home. Impression: Migraine without aura. - Condition is Stable. - Discharge Instructions: Migraine Headache, [id number]. - Prescriptions for Fiorinal 50- 325-40 mg Oral Capsule - take 1 capsule by ORAL route every 4 hours As needed - not to exceed 6 capsules per day; 20 capsule. RELPAX 20 mg Oral Tablet - take 1 tablet by ORAL route one time as soon as headache begins; may repeat once in 2 hours; 6 tablet. - Medication Reconciliation Form, Thank You Letter, Antibiotic Education, Prescription Opioid Use form. - Follow up: Private Physician; When: Upon discharge from the Emergency Department; Reason: If symptoms return, Recheck today's complaints, Continuance of care. - Problem is new. - Symptoms have improved. Signatures: Dispatcher [employer] EDMS Dianelys, Zuleima, RN RN Clau Carvalho RN RN ak1 Mady Schuler RN Toni Gutiérrez MD MD tw4 Corrections: (The following items were deleted from the chart) 21:41 21:21 12/08/2018 21:21 Discharged to Home. Impression: Migraine without aura. Condition ak1 is Stable. Forms are Medication Reconciliation Form, Thank You Letter, Antibiotic Education, Prescription Opioid Use. Follow up: Private Physician; When: Upon discharge from the Emergency Department; Reason: If symptoms return, Recheck today's complaints, Continuance of care. Problem is new. Symptoms have improved. tw4
[2018-12-08 22:08] VITALS: O2SAT 97
[2018-12-08 22:11] VITALS: BP 107/70; TEMP 98.1
--- NOTE | 2018-12-09 12:52 | EKG ---
Test Date: 2018-12-08 Test Time: 18:20:09 National [employer] Executive: MEASUREMENT RESULTS: Intervals: Rate: 86 IN: 136 QRSD: 82 QT: 368 QTc: 440 [place]: P: 56 IN: 136 QRS: 19 T: 27 INTERPRETIVE STATEMENTS: Normal sinus rhythm Normal ECG Compared to ECG 10/13/2018 16:27:58 No significant changes Electronically Signed On 12-09-18 12:50:45 CDT by Raymond Torres
== END 2018-12-08 21:41 | disposition home or self-care (01) ==
LOC: ER 18:04
DX: G43.009 Migraine without aura, not intractable, without status migrainosus (principal); I10 Essential (primary) hypertension; E11.9 Type 2 diabetes mellitus without complications; E03.9 Hypothyroidism, unspecified; Z88.1 Allergy status to other antibiotic agents; Z88.2 Allergy status to sulfonamides; Z88.5 Allergy status to narcotic agent; Z91.048 Other nonmedicinal substance allergy status
CPT/HCPCS: 36415; 70450; 71045; 80048; 80076; 83735; 83880; 84484; 85025; 85610; 93005; 96374; 96375; 99284; J2405

== ENCOUNTER 2019-01-02 20:21 | Emergency (ER) | payer SELFPAY ==
--- OUTSIDE RECORDS SUMMARY | 2019-01-02 20:25 | XMS REPORT | Clinical Summary ---
:1970 Author Organization [facility] Address [address] [place] [address] Care Team Providers Name Role Phone Pcp, [...] packet by 3 packet 5 06/25/2018 Active egnin-omrvnc-jhytig Nasal route 2 bottle (NEILMED (two) times [...] Acquired hypothyroidism MD Aline Seay Sahar, MD Hoffman, Maria MD 06/18/2018 Travel after 01/01/2018 Family History Medical History Relation Name Comments [...] Taken Blood Pressure 125/71 06/27/2018 12:09 PM HOOKER OPERATOR Pulse 63 06/27/2018 12:09 PM HOOKER OPERATOR Temperature 36.2 C (97.1 F) 06/27/2018 12:09 PM HOOKER OPERATOR Respiratory Rate 18 06/27/2018 12:09 PM HOOKER OPERATOR Oxygen Saturation 97% 06/27/2018 12:09 PM HOOKER OPERATOR Inhaled Oxygen Concentration - - Weight 122.5 kg (270 lb) 06/18/2018 9:00 PM HOOKER OPERATOR Height 162.6 cm (5' 4") 06/18/2018 9:00 PM HOOKER OPERATOR Body Mass Index 46.35 06/18/2018 9:00 PM HOOKER OPERATOR Plan of Treatment Not on file Implants Implanted Type Area Junior Brand Manager Device Shelf Model / Identifier Expiration Serial / Date Lot Sealant Durasl Spine 5ml [id number] - [id number] Cement/Fi N/A: [employer] 10/21/[id number] / Implanted: Qty: 1 on 06/24/2018 by Alex Ruano MD ller/Valent[place] Head / sive [id number] Flseal sd Full Strlprep 10ml [id number] - [id number] Cement/Fi N/A: FUNES: BIOSCI 11/18/2019 [id number] / Implanted: Qty: 1 on 06/24/2018 by Alex Ruano MD ller/[place] [employer] / sive [id number] Graft Matrix Dura 1x3 [id number] - [id number] Neuro N/A: [employer] 02/20/2020 [id number] / Implanted: Qty: 1 on 06/24/2018 by Alex Ruano MD Head SURGICAL / NAVIGATION [id number] Procedures Procedure Name Priority Date/Time Associated Comments Diagnosis INTRAOPERATIVE PATH 06/29/2018 1:00 REPORT - SCAN PM HOOKER OPERATOR RHYTHM STRIP - SCAN 06/29/2018 1:00 PM HOOKER OPERATOR POCT-GLUCOSE METER Routine 06/27/2018 12:07 Results for this PM HOOKER OPERATOR procedure are in the results section. POCT-GLUCOSE METER Routine 06/27/2018 7:41 Results for this AM HOOKER OPERATOR procedure are in the results section. CBC W/PLT COUNT & AUTO Routine 06/27/2018 5:56 Results for this DIFFERENTIAL AM HOOKER OPERATOR procedure are in the results section. BASIC METABOLIC PANEL Routine 06/27/2018 5:56 Results for this (7) AM HOOKER OPERATOR procedure are in the results section. CBC W/PLT COUNT & AUTO Routine 06/27/2018 5:56 Results for this DIFFERENTIAL AM HOOKER OPERATOR procedure are in the results section. CBC W/PLT COUNT & AUTO STAT 06/26/2018 11:18 Results for this DIFFERENTIAL PM HOOKER OPERATOR procedure are in the results section. CBC W/PLT COUNT & AUTO STAT 06/26/2018 11:18 Results for this DIFFERENTIAL PM HOOKER OPERATOR procedure are in the results section. BASIC METABOLIC PANEL STAT 06/26/2018 11:18 Results for this (7) PM HOOKER OPERATOR procedure are in the results section. SODIUM, RANDOM URINE STAT 06/26/2018 11:11 Results for this PM HOOKER OPERATOR procedure are in the results section. CT BRAIN WITHOUT IV STAT 06/26/2018 10:25 Results for this CONTRAST PM HOOKER OPERATOR procedure are in the results section. POCT-GLUCOSE METER Routine 06/26/2018 9:01 Results for this PM HOOKER OPERATOR procedure are in the results section. CBC W/PLT COUNT & AUTO Routine 06/26/2018 1:55 Results for this DIFFERENTIAL PM HOOKER OPERATOR procedure are in the results section. BASIC METABOLIC PANEL Routine 06/26/2018 1:55 Results for this (7) PM HOOKER OPERATOR procedure are in the results section. CBC W/PLT COUNT & AUTO Routine 06/26/2018 1:55 Results for this DIFFERENTIAL PM HOOKER OPERATOR procedure are in the results section. POCT-GLUCOSE METER Routine 06/26/2018 1:33 Results for this PM HOOKER OPERATOR procedure are in the results section. POCT-GLUCOSE METER Routine 06/26/2018 12:06 Results for this PM HOOKER OPERATOR procedure are in the results section. POCT-GLUCOSE METER Routine 06/25/2018 4:10 Results for this PM HOOKER OPERATOR procedure are in the results section. POCT-GLUCOSE METER Routine 06/25/2018 12:02 Results for this PM HOOKER OPERATOR procedure are in the results section. POCT-GLUCOSE METER Routine 06/25/2018 8:02 Results for this AM HOOKER OPERATOR procedure are in the results section. OSMOLALITY, URINE STAT 06/25/2018 4:23 Results for this AM HOOKER OPERATOR procedure are in the results section. SPECIFIC GRAVITY, STAT 06/25/2018 4:23 Results for this URINE AM HOOKER OPERATOR procedure are in the results section. POCT-GLUCOSE METER Routine 06/24/2018 9:56 Results for this PM HOOKER OPERATOR procedure are in the results section. POCT-GLUCOSE METER Routine 06/24/2018 4:57 Results for this PM HOOKER OPERATOR procedure are in the results section. BASIC METABOLIC PANEL STAT 06/24/2018 4:50 Results for this (7) PM HOOKER OPERATOR procedure are in the results section. POCT-GLUCOSE METER Routine 06/24/2018 11:09 Results for this AM HOOKER OPERATOR procedure are in the results section. POCT-GLUCOSE METER Routine 06/24/2018 9:38 Results for this AM HOOKER OPERATOR procedure are in the results section. TISSUE EXAM AP Routine 06/24/2018 8:02 Results for this AM HOOKER OPERATOR procedure are in the results section. ENDOSCOPIC SINUS 06/24/2018 7:00 Pituitary adenoma SURGERY,REPAIR CSF AM HOOKER OPERATOR (HCC) [place] Special Needs (STEALTH NAVIGATION, LUMBAR DRAIN SET, LANDMARK CT SCAN ON ) TURBINECTOMY,NASAL 06/24/2018 7:00 AM HOOKER OPERATOR Pituitary adenoma (HCC) Special Needs (STEALTH NAVIGATION, LUMBAR DRAIN SET, LANDMARK CT SCAN ON ) ENDOSCOPIC SINUS 06/24/2018 7:00 AM HOOKER OPERATOR Pituitary adenoma SURGERY,ETHMOIDECTOMY W/ (HCC) SPHENOIDOTOMY Special Needs (STEALTH NAVIGATION, LUMBAR DRAIN SET, LANDMARK CT SCAN ON ) PROCEDURE W/ STEALTH 06/24/2018 7:00 AM HOOKER OPERATOR Pituitary adenoma (HCC) Special Needs (STEALTH NAVIGATION, LUMBAR DRAIN SET, LANDMARK CT SCAN ON ) ENDOSCOPIC CRANIOTOMY,REMOVAL 06/24/2018 7:00 AM HOOKER OPERATOR Pituitary adenoma ( HCC) TRANSSPHENOIDAL PITUITARY TUMOR Special Needs (STEALTH NAVIGATION, LUMBAR DRAIN SET, LANDMARK CT SCAN ON ) POCT-GLUCOSE METER Routine 06/24/2018 5:42 AM HOOKER OPERATOR SCREEN, URINE STAT 06/24/2018 5:16 AM HOOKER OPERATOR BASIC METABOLIC PANEL (7) Routine 06/24/2018 5:16 AM HOOKER OPERATOR CBC W/PLT COUNT & AUTO Routine 06/24/2018 5:07 AM HOOKER OPERATOR Results for this DIFFERENTIAL procedure are in the results section. PT/APTT Routine 06/24/2018 5:07 AM HOOKER OPERATOR CBC W/PLT COUNT & AUTO Routine 06/24/2018 5:07 AM HOOKER OPERATOR Results for this DIFFERENTIAL procedure are in the results section. POCT-GLUCOSE METER Routine 06/23/2018 9:21 PM HOOKER OPERATOR POCT-GLUCOSE METER Routine 06/23/2018 4:31 PM HOOKER OPERATOR BASIC METABOLIC PANEL (7) Routine 06/23/2018 4:13 PM HOOKER OPERATOR POCT-GLUCOSE METER Routine 06/23/2018 8:30 AM HOOKER OPERATOR POCT-GLUCOSE METER Routine 06/22/2018 11:34 PM HOOKER OPERATOR POCT-GLUCOSE METER Routine 06/22/2018 8:21 PM HOOKER OPERATOR POCT-GLUCOSE METER Routine 06/22/2018 5:07 PM HOOKER OPERATOR POCT-GLUCOSE METER Routine 06/22/2018 11:49 AM HOOKER OPERATOR POCT-GLUCOSE METER Routine 06/22/2018 8:30 AM HOOKER OPERATOR POCT-GLUCOSE METER Routine 06/21/2018 9:09 PM HOOKER OPERATOR POCT-GLUCOSE METER Routine 06/21/2018 5:20 PM HOOKER OPERATOR POCT-GLUCOSE METER Routine 06/21/2018 11:06 AM HOOKER OPERATOR ECHOCARDIOGRAM REPORT - SCAN 06/21/2018 9:21 AM HOOKER OPERATOR FOLLICLE STIMULATING HORMONE Routine 06/21/2018 9:11 AM HOOKER OPERATOR Results for this (FSH) procedure are in the results section. INSULIN-LIKE GROWTH FACTOR Routine 06/21/2018 9:11 AM HOOKER OPERATOR ACTH Routine 06/21/2018 9:11 AM HOOKER OPERATOR CORTISOL Routine 06/21/2018 9:11 AM HOOKER OPERATOR POCT-GLUCOSE METER Routine 06/21/2018 7:[address] BRAIN WITHOUT IV CONTRAST TERI 06/20/2018 9:48 PM HOOKER OPERATOR POCT-GLUCOSE METER Routine 06/20/2018 8:48 PM HOOKER OPERATOR 2D ECHO W/ DOPPLER Routine 06/20/2018 6:40 PM HOOKER OPERATOR Results for this (CW/PW/COLOR) procedure are in the results section. POCT-GLUCOSE METER Routine 06/20/2018 4:48 PM HOOKER OPERATOR POCT-GLUCOSE METER Routine 06/20/2018 1:06 PM HOOKER OPERATOR POCT-GLUCOSE METER Routine 06/20/2018 7:21 AM HOOKER OPERATOR POCT-GLUCOSE METER Routine 06/20/2018 5:22 AM HOOKER OPERATOR BASIC METABOLIC PANEL (7) STAT 06/20/2018 5:08 AM HOOKER OPERATOR POCT-GLUCOSE METER Routine 06/20/2018 12:[address]/CTA CAROTID TERI 06/19/2018 10:[address]/CTA BRAIN TERI 06/19/2018 10:46 PM HOOKER OPERATOR POCT-GLUCOSE METER Routine 06/19/2018 9:19 PM HOOKER OPERATOR POCT-GLUCOSE METER Routine 06/19/2018 5:06 PM HOOKER OPERATOR POCT-GLUCOSE METER Routine 06/19/2018 3:03 PM HOOKER OPERATOR POCT-GLUCOSE METER Routine 06/19/2018 12:27 PM HOOKER OPERATOR SCREEN, URINE Routine 06/19/2018 11:54 AM HOOKER OPERATOR OSMOLALITY, URINE Routine 06/19/2018 11:54 AM HOOKER OPERATOR RAPID DRUG SCREEN, URINE Routine 06/19/2018 11:54 AM HOOKER OPERATOR CBC W/PLT COUNT & AUTO Routine 06/19/2018 11:49 AM HOOKER OPERATOR Results for this DIFFERENTIAL procedure are in the results section. INSULIN-LIKE GROWTH FACTOR Routine 06/19/2018 11:49 AM HOOKER OPERATOR OSMOLALITY, SERUM Routine 06/19/2018 11:49 AM HOOKER OPERATOR T4, FREE Routine 06/19/2018 11:49 AM HOOKER OPERATOR C-REACTIVE PROTEIN Routine 06/19/2018 11:49 AM HOOKER OPERATOR HIV-1 ANTIGEN WITH HIV-1/2 Routine 06/19/2018 11:49 AM HOOKER OPERATOR Results for this ANTIBODY procedure are in the results section. RPR Routine 06/19/2018 11:49 AM HOOKER OPERATOR CBC W/PLT COUNT & AUTO Routine 06/19/2018 11:49 AM HOOKER OPERATOR Results for this DIFFERENTIAL procedure are in the results section. POCT-GLUCOSE METER Routine 06/19/2018 9:25 AM HOOKER OPERATOR POCT-GLUCOSE METER Routine 06/19/2018 5:51 AM HOOKER OPERATOR GROWTH HORMONE Routine 06/19/2018 3:49 AM HOOKER OPERATOR LUTEINIZING HORMONE (LH) Routine 06/19/2018 3:49 AM HOOKER OPERATOR ACTH Routine 06/19/2018 3:49 AM HOOKER OPERATOR PROLACTIN Routine 06/19/2018 3:49 AM HOOKER OPERATOR MR BRAIN WITHOUT & WITH IV STAT 06/19/2018 2:25 AM HOOKER OPERATOR Results for this CONTRAST procedure are in the results section. HEMOGLOBIN A1C Routine 06/19/2018 12:39 AM HOOKER OPERATOR TSH/FREE T4 IF INDICATED Routine 06/18/2018 11:32 PM HOOKER OPERATOR BASIC METABOLIC PANEL (7) STAT 06/18/2018 11:32 PM HOOKER OPERATOR URINALYSIS W/ REFLEX URINE Routine 06/18/2018 10:27 PM HOOKER OPERATOR Results for this CULTURE procedure are in the results section. after 01/01/2018 Results INTRAOPERATIVE PATH REPORT - SCAN (06/29/2018 1:00 PM HOOKER OPERATOR) Narrative Performed At RHYTHM STRIP - SCAN (06/29/2018 1:00 PM HOOKER OPERATOR) Narrative Performed At POC-Glucose meter (06/27/2018 12:07 PM HOOKER OPERATOR)Only the most recent of37 resultswithin the time period is included. POC-Glucose Meter 141 (H)Comment: TESTED AT 70 - 110 mg/dL [facility] [address], [place] [address] Specimen Blood Performing Organization Address City/State/Zipcode Phone Number [address] [phone] CENTER CBC with platelet count + automated diff (06/27/2018 5:56 AM HOOKER OPERATOR)Only the most recent of5 resultswithin the time period is included. WBC 8.7 3.5 - 10.5 K/L [facility] RBC 4.82 3.93 - 5.22 M/L [facility] Hemoglobin 13.2 11.2 - 15.7 GM/DL [facility] Hematocrit 40.8 34.1 - 44.9 % [facility] MCV 84.6 79.4 - 94.8 fL [facility] MCH 27.4 25.6 - 32.2 pg [facility] MCHC 32.4 32.2 - 35.5 GM/DL [facility] RDW 13.2 11.7 - 14.4 % [facility] Platelets 233 150 - 450 K/CU MM [facility] MPV 11.5 9.4 - 12.3 fL [facility] nRBC 0 0 - 0 /100 WBC [facility] % Neutros 65 % [facility] % Lymphs 24 % [facility] % Monos 8 % [facility] % Eos 2 % [facility] % Baso 0 % [facility] # Neutros 5.65 1.56 - 6.13 K/L [facility] # Lymphs 2.07 1.18 - 3.74 K/L [facility] # Monos 0.70 (H) 0.24 - 0.36 K/L [facility] # Eos 0.16 0.04 - 0.36 K/L [facility] # Baso 0.02 0.01 - 0.08 K/L [facility] Immature Granulocytes-Relative 1 0 - 1 % [facility] Specimen Blood Performing Organization Address City/State/Zipcode Phone Number [facility] [address] [place] [address] [phone] CENTER Basic Metabolic Panel (06/27/2018 5:56 AM HOOKER OPERATOR)Only the most recent of8 resultswithin the time period is included. Sodium 139 136 - 145 meq/L [facility] Potassium 4.1 3.5 - 5.1 meq/L [facility] Chloride 105 98 - 107 meq/L [facility] CO2 28 22 - 29 meq/L [facility] BUN 11 7 - 21 mg/dL [facility] Creatinine 0.69 0.57 - 1.25 mg/dL [facility] Glucose 163 (H) 70 - 105 mg/dL [facility] Calcium 8.6 8.4 - 10.2 mg/dL [facility] EGFR 91Comment: ESTIMATED GFR IS mL/min/1.73 sq m [facility] NOT ACCURATE CREATININE [facility] CENTER CLEARANCE IN PREDICTING GLOMERULAR FILTRATION RATE. ESTIMATED GFR IS NOT APPLICABLE FOR DIALYSIS PATIENTS. Specimen Blood Performing Organization Address City/State/[facility] Phone Number [address] [phone] [place] Sodium, random urine (06/26/2018 11:11 PM HOOKER OPERATOR) Sodium Urine <20 meq/L [facility] Specimen Urine Narrative Performed At Reference Range: No Normals [facility] Performing Organization Address [facility] Phone Number [address] [place] [address] brain without IV contrast (06/26/2018 10:25 PM HOOKER OPERATOR)Only the most recent of2 resultswithin the time period is included. Specimen Narrative Performed At FINAL REPORT [facility] CT Head without contrast CLINICAL HISTORY: [...] MD Report Verified Date/Time:06/26/2018 22:57:28 Reading Location: [address] Transitional Reading Room Procedure Note Interface, External Ris In - 06/26/2018 10:59 PM HOOKER OPERATOR FINAL REPORT CT Head without contrast CLINICAL [...] Report Verified Date/Time: 06/26/2018 22:57:28 Reading Location: [address] Transitional Reading Room Performing Organization Address City/State/Zipcode Phone Number GE RIS Specific gravity, urine (06/25/2018 4:23 AM HOOKER OPERATOR) Specific [place], UA 1.010 1.001 - 1.035 [facility] Specimen Urine Performing Organization Address City/State/Zipcode Phone Number [facility] [address] [place] [address] [phone] [place] Osmolality, urine (06/25/2018 4:23 AM HOOKER OPERATOR)Only the most recent of2 resultswithin the time period is included. Osmolality, Ur 340 40-1,400 mOsm/kg [facility] Specimen Urine Performing Organization Address City/[facility] Phone Number [facility] [address] [place] [phone] [place] Tissue Exam (06/24/2018 8:02 AM HOOKER OPERATOR) Case Report Surgical Pathology Report Case: [id number] [facility] Authorizing Provider:Alex Ruano MD Collected: 06/24/2018 0802 [facility] Ordering Location: [address] Received: 06/24/2018 0809 CENTER Service Pathologist: Chon Caraballo MD Specimens: A) - Tumor, pituitary tumor B) - Tumor, pituitary tumor DIAGNOSIS A.PITUITARY GLAND, TRANSSPHENOIDAL HYPOPHYSECTOMY: [facility] NULL CELL ADENOMA INVADING RESPIRATORY MUCOSA [facility] B. PITUITARY GLAND, TRANSSPHENOIDAL HYPOPHYSECTOMY: NULL CELL ADENOMA ENTRAPPED ADENOHYPOPHYSIS Signing Pathologist Direct Phone Line: [phone] COMMENT Immunoperoxidase stains [facility] performed on the second [facility] specimen show that the tumor CENTER has no staining for growth hormone, LH, FSH, TSH, prolactin, or ACTH. 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 The MIB-1 proliferation index is less than 1%. CPT Code(s) 55825 x 2; 33217; 41097; 10006 [facility] x 6; 05133 [facility] CLINICAL HISTORY Pituitary adenoma [facility] SPECIMEN SOURCE A. Pituitary tumor; B. [facility] Pituitary tumor [facility] GROSS DESCRIPTION A. The specimen is received fresh for frozen section diagnosis and labeled "pituitary tumor" and consists of a single fragment of tariq -red soft tissue measuring 0.5 cm in greatest dimension submitted ent [facility] for frozen section diagnosis, and touch preps are performed. CG/ew [facility] B. Received fresh labeled "tumor", description "pituitary tumor" is a 2.0 x 1.0 x 0.3 cm aggregate of pink-tariq to hannah-white rubbery friable soft tissue. The specimen is entirely submitted in cassette B1. DB/pl INTRAOPERATIVE FROZEN SECTION DIAGNOSIS, PITUITARY TUMOR: [facility] CONSULTATION ADENOMA EXTENDING INTO RESPIRATORY MUCOSA PER DR. CARABALLO [facility] MICROSCOPIC DESCRIPTION Performed on A and B [facility] SPECIAL STUDIES The interpretation of this case included the use of immunohistochemistry or special stains. [facility] Immunohistochemistry technical testing was performed at [facility], Pathology Laboratory where it was [...] Tumor Performing Organization Address City/State/Zipcode Phone Number [facility] [address] [place] [address] CENTER Screen, urine (06/24/2018 5:16 AM HOOKER OPERATOR)Only the most recent of2 resultswithin the time period is included. Preg Test, Ur Negative [facility] Specimen Urine Performing Organization Address City/[facility]/Zipcode Phone Number [facility] [address] [place] [address] CENTER PT/aPTT (06/24/2018 5:07 AM HOOKER OPERATOR) Protime 13.8 11.7 - 14.7 seconds [facility] INR 1.1 <=5.9 [facility] PTT 32.0 22.5 - 36.0 seconds [facility] Specimen Blood Narrative Performed At RECOMMENDED COUMADIN/WARFARIN INR THERAPY [facility] RANGES STANDARD DOSE: 2.0 - 3.0 Includes: PROPHYLAXIS for venous thrombosis, systemic embolization; TREATMENT for venous thrombosis and/or pulmonary embolus. HIGH RISK: Target INR is 2.5-3.5 for patients with mechanical heart valves. Performing Organization Address [facility] Phone Number [address] [phone] [place] ECHOCARDIOGRAM REPORT - SCAN (06/21/2018 9:21 AM HOOKER OPERATOR) Narrative Performed At Cortisol (06/21/2018 9:11 AM HOOKER OPERATOR) Cortisol, Total 4.7 3.7 - 19.4 ug/dL [facility] Specimen Blood Performing Organization Address City/[facility] Phone Number [address] [address] CENTER Insulin-like growth factor (06/21/2018 9:11 AM HOOKER OPERATOR)Only the most recent of2 resultswithin the time period is included. Igf-1(Somatomedin-C) 36 (L) 52 - 328 ng/mL [facility] Z-Score Male: DNR [facility] Z-Score Female: -2.6 (L) -2.0 - 2.0 SD [facility] Comment: [facility]POR[facility] This test was developed and its analytical performance characteristics have been determined by [employer] [facility]. It has not been cleared or approved by FDA. This assay has been validated pursuant to the CLIA regulations and is used for clinical purposes. Specimen Blood Narrative Performed At Performing Lab [facility] [employer] [address] [address] Sixto Rodrigez MD, PhD, ANABELL Performing Organization Address [facility] [place] [address] [address] [place] [address] [facility] ACTH (06/21/2018 9:11 AM HOOKER OPERATOR)Only the most recent of2 resultswithin the time period is included. ACTH 17 6 - 50 pg/mL [facility] Comment: Reference range applies only to the specimens collected between 7am-10am. Specimen Blood Narrative Performed At Performing Lab [employer] [address] Sixto Rodrigez MD, PhD, ANABELL Performing Organization Address [facility] [place] [address] [address] [place] [address] [facility] Follicle stimulating hormone (FSH) (06/21/2018 9:11 AM HOOKER OPERATOR) Fsh 2.3 mIU/mL [employer] Comment: Adult female reference ranges for FSH: Follicular Phase: 2.5- 10.2 mIU/mL Mid-Cycle:3.1- 17.7 mIU/mL Luteal Phase: 1.5-9.1 mIU/mL Postmenopausal:23.0-116.3 mIU/mL Children (<18 Years Old): FSH reference ranges established on post-pubertal patient population. Reference range not established for pre-pubertal patients using this assay. For pre-pubertal patients, the [employer] FSH, Pediatrics assay is recommended (test code 15984). Specimen Blood Narrative Performed At Performing Lab [facility] [address] [address] Sixto Rodrigez MD, PhD, ANABELL Performing Organization Address [facility] Phone [place] [address] [address] [place] [address] [facility] 2D Echo W/Doppler(CW/PW/Color) (06/20/2018 6:40 PM HOOKER OPERATOR) Ejection Fraction [facility] MKCKESSON CPACS Specimen Narrative Performed At Transthoracic Echocardiography Report (TTE) [facility] Demographics Patient NameVY STOUT Date of Study06/20/2018 Female Visit [id number] Unknown Room [id number] Number Date of 1970Referring Abrahan Mireles MD 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 48 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 [facility] 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 Tony Fernandez Interpreting Tarik Domínguez MD Procedure [...] External Ris In - 06/21/2018 8:37 AM HOOKER OPERATOR Transthoracic Echocardiography Report (TTE) Demographics Patient Name VY STOUT Date of Study 06/20/2018 Gender Female Visit Number [id number] Race Unknown Room Number 2251 Number Date of 1970 Referring Physician Althea Mireles MD Age 48 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 CLINICAL HISTORY: Stroke TECHNIQUE: Initially, noncontrast [...] MD Report Verified Date/Time:06/20/2018 01:03:44 Reading Location: [address] Transitional Reading Room Procedure Note Interface, External Ris In - 06/20/2018 1:05 AM HOOKER OPERATOR FINAL REPORT CLINICAL HISTORY: Stroke TECHNIQUE: Initially, [...] Report Verified Date/Time: 06/20/2018 01:03:44 Reading Location: [address] Transitional Reading Room Performing Organization Address City/State/Zipcode Phone Number [phone] CTA brain (06/19/2018 10:46 PM HOOKER OPERATOR) Specimen Narrative Performed At FINAL REPORT [facility] CLINICAL HISTORY: Stroke TECHNIQUE: Initially, noncontrast [...] MD Report Verified Date/Time:06/20/2018 01:03:44 Reading Location: [address] Transitional Reading Room Procedure Note Interface, External Ris In - 06/20/2018 1:05 AM HOOKER OPERATOR FINAL REPORT CLINICAL HISTORY: Stroke TECHNIQUE: Initially, [...] Report Verified Date/Time: 06/20/2018 01:03:44 Reading Location: [address] Transitional Reading Room Performing Organization Address City/State/Zipcode Phone Number RIS Rapid drug screen, urine (06/19/2018 11:54 AM HOOKER OPERATOR) Barbiturate Screen Negative Negative [facility] Benzodiazepine Screen Negative Negative [facility] Cocaine (Metab.) Screen Negative Negative [facility] Methadone Screen Negative Negative [facility] Opiate Screen Negative Negative [facility] Cannabinoid Screen Negative Negative [facility] Amph/Methamph Screen Negative Negative [facility] Phencyclidine Screen Negative Negative [facility] Oxycodone Screen Negative Negative [facility] Specimen Urine Narrative Performed At [facility] CONC. Cocaine 300 ng/mL Juacqdejzfe47 ng/mL Pclvcskeprfpwj285 ng/mL Barbiturate 200 ng/mL Eixhhrulhjdwa82 ng/mL Fxcdwv147 ng/mL Methadone 300 ng/mL Amphetamine/ 1000 ng/mL Methamphetamine Oxycodone 300 ng/mL This assay provides an unconfirmed qualitative test result for the clinical management of patients in emergency situations. Chain of custody not maintained. Some ruyw-pno-izvztoe medications, as well as adulterants, may cause inaccurate results. Clinical correlation should be applied. A more comprehensive drug screen or confirmation of a detected drug may be performed upon request. Performing Organization Address City/[facility] Phone Number [address] [address] C[place] HIV-1 Antigen with HIV-1/2 Antibody (06/19/2018 11:49 AM HOOKER OPERATOR) HIV-1 Antigen with HIV 1&2 NON-REACTIVE Nonreactive [facility] Specimen Blood Performing Organization Address [facility] Phone Number [address] [address] C[place] C-Reactive Protein (06/19/2018 11:49 AM HOOKER OPERATOR) CRP 0.81 (H) 0.00 - 0.50 mg/dL [facility] Specimen Blood Performing Organization Address City/[facility] Phone Number [address] [address] C[place] RPR (06/19/2018 11:49 AM HOOKER OPERATOR) RPR Nonreactive Nonreactive [facility] Specimen Blood Performing Organization Address [facility] Phone Number [address] [address] C[place] T4, free (06/19/2018 11:49 AM HOOKER OPERATOR) Free T4 0.89 0.70 - 1.48 ng/dL [facility] Specimen Blood Performing Organization Address [facility]/Zipcode Phone Number [address] [address] CENTER Osmolality, serum (06/19/2018 11:49 AM HOOKER OPERATOR) Osmolality Serum 310 (H) 275 - 295 mOsm/kg [facility] Specimen Blood Performing Organization Address [facility]/State/Zipcode Phone Number [address] [address] [phone] [place] Prolactin (06/19/2018 3:49 AM HOOKER OPERATOR) Prolactin 23.34 5.18 - 26.53 ng/mL [facility] Specimen Blood Performing Organization Address [facility] Phone Number [address] [address] [place] Growth hormone (06/19/2018 3:49 AM HOOKER OPERATOR) Growth Hormone <0.1 < OR=7.1 ng/mL [facility] [...] Guideline. J Clin Endocrinol Metab 2014; 99: 4404-2250]. Using GH stimulation testing, the following result at any point in the timed sequence makes GH deficiency unlikely: Adults (> or=20 years): Insulin Hypoglycemia > or=5.1 ng/mL Arginine/GHRH> or=4.1 ng/mL Glucagon > or=3.0 ng/mL Children (<20 years): All Stimulation Tests> or=10.0 ng/mL Specimen Blood Narrative Performed At Performing Lab [facility] [address] Sixto Rodrigez MD, PhD, ANABELL Performing Organization Address [facility] [place] [address] [address] [place] [address] Luteinizing hormone (LH) (06/19/2018 3:49 AM HOOKER OPERATOR) LH, Serum 0.2 mIU/mL [facility] Comment: Adult Female Reference Ranges for LH: Follicular Phase:1.9-12.5 mIU/mL Mid-Cycle Peak:8.7-76.3 mIU/mL Luteal Phase:0.5-16.9 mIU/mL Postmenopausal: 10.0-54.7 mIU/mL Children (<18 Years Old): LH reference ranges established on post-pubertal patient population. Reference range not established for pre-pubertal patients using this assay. For pre-pubertal patients, the Zeenoh LH, Pediatric assay is recommended (order code 42536). Specimen Blood Narrative Performed At Performing Lab [facility] [place] [id number] [place] [address] Sixto Rodrigez MD, PhD, ANABELL Performing Organization Address [facility] Phone Number [place] [address] [place] [address] MR brain without & with IV contrast (06/19/2018 2:25 AM HOOKER OPERATOR) Specimen Narrative Performed At FINAL REPORT [facility] MRI brain with and without contrast Comparison:None. 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 B1 C013Y CT Body Reading Room Performing Organization Address City/[facility] Phone Number [facility] Hemoglobin A1c (06/19/2018 12:39 AM HOOKER OPERATOR) Hemoglobin A1C 7.9 (H) 4.3 - 6.1 % [facility] Specimen Blood Performing Organization Address [facility] Phone Number [address] [address] C[place] TSH/Free T4 If Indicated (06/18/2018 11:32 PM HOOKER OPERATOR) TSH 0.41 0.35 - 4.94 uIU/mL [facility] Specimen Blood Performing Organization Address [facility] Phone Number [address] [address] C[place] Urinalysis w/Microscopic + Reflex to Culture (06/18/2018 10:27 PM HOOKER OPERATOR) Color, UA Yellow [facility] Clarity, UA Clear [facility] Specific [place], UA 1.011 1.001 - 1.035 [facility] pH, UA 5.0 5.0 - 8.0 [facility] Protein, UA Negative Negative [facility] Glucose, UA >1000 mg/dL (A) Negative [facility] Ketones, UA 20 mg/dL (A) Negative [facility] Bilirubin, UA Negative Negative [facility] Blood, UA Negative Negative [facility] Nitrite, UA Negative Negative [facility] Leukocytes, UA Negative Negative [facility] Urobilinogen, UA 0.2 0.2 - 1.0 mg/dL [facility] RBC, UA <1 /HPF [facility] WBC, UA <1 /HPF [facility] Squam Epithel, UA <1 /HPF [facility] Specimen Source [facility] Specimen Urine Performing Organization Address City/State/Zipcode Phone Number [facility] [address] [place] [address] [phone] CENTER after 01/01/2018 Insurance Payer Benefit Plan / Subscriber ID Type Phone Address Group BLUE CROSS/BLUE [employer] OS xxxxxxxxxxxx PPO [phone] [address] SHIELD POS/PPO/[place] [address] (Home) [address] [place] [phone] Advance Directives Patient has advance care planning documents, and code status on file. For more information, please contact:[facility] [place] [address] [phone] Code Status Date Activated Date Inactivated Comments Full Code 06/26/2018 1:38 PM This code status was determined by: Patient Full Code 06/18/2018 8:39 PM 06/26/2018 11:54 AM This code status was determined by: Patient
--- OUTSIDE RECORDS SUMMARY | 2019-01-02 20:26 | XMS REPORT ---
:1970 Author Organization [facility] Address [address] [place] [address] Dr. Holbrook [address] [place] [id number] Care Team Providers Name Role Phone DAJUAN GEORGE Unavailable Unavailable MITCHELL DOBSON Unavailable Unavailable Problems This patient has no known problems. Allergies, Adverse Reactions, Alerts This patient has no known allergies or adverse reactions. Medications This patient has no known medications. Results Test Description Test Time Test Comments Text Results Atomic Results Result Comments TISSUE EXAM 2018-06-28 08:38:00 Surgical Pathology Report Case: [id number] Authorizing Provider: Alex Ruano MD Collected: 06/24/2018801 Ordering Location: [address] Received: 06/24/2018 0809 Service Pathologist: Chon Andino MD Specimens: A) - Tumor, pituitary tumor B) - Tumor, pituitary tumor A.PITUITARY GLAND, TRANSSPHENOIDAL 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 PITUITARY GLAND, TRANSSPHENOIDAL HYPOPHYSECTOMY:NULL CELL ADENOMAENTRAPPED ADENOHYPOPHYSIS Signing Pathologist Direct Phone Line: [phone] signed by Chon Andino MD on 06/28/2018 at 8:38 AMImmunoperoxidase stains performed on the second specimen show that the tumor has no staining for growth hormone, LH, FSH, TSH, prolactin, or ACTH. 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 The MIB-1 proliferation index is less than 1%. 64622 x 2; 59212; 62703; 84552 x 6; 49719Wlrrystqi adenoma A. Pituitary tumor; B. Pituitary tumorA. [...] stains. Immunohistochemistry technical testing was performed at [facility], Pathology Laboratory where it was [...] 141 mg/dL 70-110 TESTED AT [facility] [address] [place] [address] etef=[id number]) [facility] [address] POCT-GLUCOSE [id number] 12:06:00 Test Item Value Reference Range Comments POC-GLUCOSE METER (BEAKER) 217 mg/dL 70-110 TESTED AT [address] (test usef=0773) [facility] [address] BASIC METABOLIC [id number] 07:18:00 Test Item Value Reference Range Comments SODIUM (BEAKER) (test 139 meq/L 136-145 elbi=639) POTASSIUM (BEAKER) (test 4.1 meq/L 3.5-5.1 ulym=700) CHLORIDE (BEAKER) (test 105 meq/L 98-107 dkip=606) CO2 (BEAKER) (test 28 meq/L 22-29 tqyk=328) BLOOD UREA NITROGEN 11 mg/dL 7-21 (BEAKER) (test fofp=249) CREATININE (BEAKER) (test 0.69 mg/dL 0.57-1.25 rrkt=507) GLUCOSE RANDOM (BEAKER) 163 mg/dL 70-105 (test wtky=725) CALCIUM (BEAKER) (test 8.6 mg/dL 8.4-10.2 atuk=529) EGFR (BEAKER) (test 91 mL/min/1.73 sq m ESTIMATED GFR IS NOT zlgv=1510) ACCURATE CREATININE CLEARANCE IN PREDICTING GLOMERULAR FILTRATION RATE. ESTIMATED GFR IS NOT APPLICABLE FOR DIALYSIS PATIENTS. CBC W/PLT COUNT & AUTO [id number] 06:49:00 Test Item Value Reference Range Comments WHITE BLOOD CELL COUNT (BEAKER) (test czwy=936) 8.7 K/ L 3.5-10.5 RED BLOOD CELL COUNT (BEAKER) (test bcdp=473) 4.82 M/ L 3.93-5.22 HEMOGLOBIN (BEAKER) (test urah=320) 13.2 GM/DL 11.2-15.7 HEMATOCRIT (BEAKER) (test zaik=573) 40.8 % 34.1-44.9 MEAN CORPUSCULAR VOLUME (BEAKER) (test bfsd=524) 84.6 fL 79.4-94.8 MEAN CORPUSCULAR HEMOGLOBIN (BEAKER) (test 27.4 pg 25.6-32.2 cguu=675) MEAN CORPUSCULAR HEMOGLOBIN CONC (BEAKER) (test 32.4 GM/DL 32.2-35.5 ikyt=701) RED CELL DISTRIBUTION WIDTH (BEAKER) (test 13.2 % 11.7-14.4 ibin=440) PLATELET COUNT (BEAKER) (test dzqf=163) 233 K/CU MM 150-450 MEAN PLATELET VOLUME (BEAKER) (test afcu=680) 11.5 fL 9.4-12.3 NUCLEATED RED BLOOD CELLS (BEAKER) (test 0 /100 WBC 0-0 ofpt=313) NEUTROPHILS RELATIVE PERCENT (BEAKER) (test 65 % gclh=812) LYMPHOCYTES RELATIVE PERCENT (BEAKER) (test 24 % pdct=249) MONOCYTES RELATIVE PERCENT (BEAKER) (test 8 % mkkz=093) EOSINOPHILS RELATIVE PERCENT (BEAKER) (test 2 % biir=464) BASOPHILS RELATIVE PERCENT (BEAKER) (test 0 % anhj=840) NEUTROPHILS ABSOLUTE COUNT (BEAKER) (test 5.65 K/ L 1.56-6.13 feeh=818) LYMPHOCYTES ABSOLUTE COUNT (BEAKER) (test 2.07 K/ L 1.18-3.74 ggyd=869) MONOCYTES ABSOLUTE COUNT (BEAKER) (test 0.70 K/ L 0.24-0.36 dfaa=434) EOSINOPHILS ABSOLUTE COUNT (BEAKER) (test 0.16 K/ L 0.04-0.36 eigm=359) BASOPHILS ABSOLUTE COUNT (BEAKER) (test 0.02 K/ L 0.01-0.08 ouql=966) IMMATURE GRANULOCYTES-RELATIVE PERCENT (BEAKER) 1 % 0-1 (test muzg=2452) BASIC METABOLIC [id number] 23:52:00 Test Item Value Reference Range Comments SODIUM (BEAKER) (test 139 meq/L 136-145 ezvu=335) POTASSIUM (BEAKER) (test 4.0 meq/L 3.5-5.1 Specimen slightly vohx=394) hemolyzed CHLORIDE (BEAKER) (test 103 meq/L 98-107 ximz=005) CO2 (BEAKER) (test 28 meq/L 22-29 zlcz=691) BLOOD UREA NITROGEN 12 mg/dL 7-21 (BEAKER) (test mflb=370) CREATININE (BEAKER) (test 0.72 mg/dL 0.57-1.25 Specimen slightly vnkb=324) hemolyzed GLUCOSE RANDOM (BEAKER) 193 mg/dL 70-105 (test weww=089) CALCIUM (BEAKER) (test 8.6 mg/dL 8.4-10.2 dwgt=858) EGFR (BEAKER) (test 86 mL/min/1.73 sq m ESTIMATED GFR IS NOT mpts=3383) ACCURATE CREATININE CLEARANCE IN PREDICTING GLOMERULAR FILTRATION RATE. ESTIMATED GFR IS NOT APPLICABLE FOR DIALYSIS PATIENTS. SODIUM, RANDOM [id number] 23:49:00 Test Item Value Reference Range Comments SODIUM URINE (BEAKER) (test gpfg=476) < meq/L Reference Range: No NormalsCBC W/PLT COUNT & AUTO [id number] 23: 35:00 Test Item Value Reference Range Comments WHITE BLOOD CELL COUNT (BEAKER) (test hzkw=110) 9.7 K/ L 3.5-10.5 RED BLOOD CELL COUNT (BEAKER) (test msrj=142) 4.46 M/ L 3.93-5.22 HEMOGLOBIN (BEAKER) (test ctkt=756) 12.2 GM/DL 11.2-15.7 HEMATOCRIT (BEAKER) (test bywx=794) 37.8 % 34.1-44.9 MEAN CORPUSCULAR VOLUME (BEAKER) (test rcqw=185) 84.8 fL 79.4-94.8 MEAN CORPUSCULAR HEMOGLOBIN (BEAKER) (test 27.4 pg 25.6-32.2 jmhv=155) MEAN CORPUSCULAR HEMOGLOBIN CONC (BEAKER) (test 32.3 GM/DL 32.2-35.5 iikp=089) RED CELL DISTRIBUTION WIDTH (BEAKER) (test 13.0 % 11.7-14.4 oxao=581) PLATELET COUNT (BEAKER) (test fsym=473) 210 K/CU MM 150-450 MEAN PLATELET VOLUME (BEAKER) (test krgg=188) 11.4 fL 9.4-12.3 NUCLEATED RED BLOOD CELLS (BEAKER) (test 0 /100 WBC 0-0 osqr=383) NEUTROPHILS RELATIVE PERCENT (BEAKER) (test 61 % ayic=622) LYMPHOCYTES RELATIVE PERCENT (BEAKER) (test 28 % nfib=867) MONOCYTES RELATIVE PERCENT (BEAKER) (test 8 % uopn=658) EOSINOPHILS RELATIVE PERCENT (BEAKER) (test 2 % ruhm=705) BASOPHILS RELATIVE PERCENT (BEAKER) (test 0 % kmso=220) NEUTROPHILS ABSOLUTE COUNT (BEAKER) (test 5.87 K/ L 1.56-6.13 qvbl=840) LYMPHOCYTES ABSOLUTE COUNT (BEAKER) (test 2.72 K/ L 1.18-3.74 zdru=241) MONOCYTES ABSOLUTE COUNT (BEAKER) (test 0.80 K/ L 0.24-0.36 gtrs=710) EOSINOPHILS ABSOLUTE COUNT (BEAKER) (test 0.22 K/ L 0.04-0.36 jbyr=391) BASOPHILS ABSOLUTE COUNT (BEAKER) (test 0.03 K/ L 0.01-0.08 azgu=107) IMMATURE GRANULOCYTES-RELATIVE PERCENT (BEAKER) 1 % 0-1 (test dnib=1647) CT, BRAIN, WITHOUT [id number] 22:57:00FINAL REPORT CT Head without contrast CLINICAL [...] Verified Date/Time: 06/26/2018 22:57:28 [address] POCT-GLUCOSE [id number] 21:07:00 Test Item Value Reference Range Comments POC-GLUCOSE METER (BEAKER) 211 mg/dL 70-110 TESTED AT [address] (test zypm=6751) [facility] [address] BASIC METABOLIC [id number] 14:29:00 Test Item Value Reference Range Comments SODIUM (BEAKER) (test 137 meq/L 136-145 gfqj=637) POTASSIUM (BEAKER) (test 3.6 meq/L 3.5-5.1 kegn=738) CHLORIDE (BEAKER) (test 100 meq/L 98-107 pbsf=413) CO2 (BEAKER) (test 32 meq/L 22-29 yqyb=307) BLOOD UREA NITROGEN 12 mg/dL 7-21 (BEAKER) (test vzpk=960) CREATININE (BEAKER) (test 0.71 mg/dL 0.57-1.25 qmwk=283) GLUCOSE RANDOM (BEAKER) 182 mg/dL 70-105 (test cwqr=994) CALCIUM (BEAKER) (test 8.7 mg/dL 8.4-10.2 uppx=720) EGFR (BEAKER) (test 88 mL/min/1.73 sq m ESTIMATED GFR IS NOT akum=4036) ACCURATE CREATININE CLEARANCE IN PREDICTING GLOMERULAR FILTRATION RATE. ESTIMATED GFR IS NOT APPLICABLE FOR DIALYSIS PATIENTS. CBC W/PLT COUNT & AUTO [id number] 14:25:00 Test Item Value Reference Range Comments WHITE BLOOD CELL COUNT (BEAKER) (test ewzf=771) 12.3 K/ L 3.5-10.5 RED BLOOD CELL COUNT (BEAKER) (test yyzp=754) 4.76 M/ L 3.93-5.22 HEMOGLOBIN (BEAKER) (test rdeu=635) 13.1 GM/DL 11.2-15.7 HEMATOCRIT (BEAKER) (test qjkj=356) 40.6 % 34.1-44.9 MEAN CORPUSCULAR VOLUME (BEAKER) (test fytt=018) 85.3 fL 79.4-94.8 MEAN CORPUSCULAR HEMOGLOBIN (BEAKER) (test 27.5 pg 25.6-32.2 aizd=702) MEAN CORPUSCULAR HEMOGLOBIN CONC (BEAKER) (test 32.3 GM/DL 32.2-35.5 qdop=883) RED CELL DISTRIBUTION WIDTH (BEAKER) (test 13.1 % 11.7-14.4 ftmo=624) PLATELET COUNT (BEAKER) (test pgbk=269) 254 K/CU MM 150-450 MEAN PLATELET VOLUME (BEAKER) (test ypgi=281) 11.1 fL 9.4-12.3 NUCLEATED RED BLOOD CELLS (BEAKER) (test 0 /100 WBC 0-0 zcgi=391) NEUTROPHILS RELATIVE PERCENT (BEAKER) (test 68 % fnfc=114) LYMPHOCYTES RELATIVE PERCENT (BEAKER) (test 24 % ktrb=189) MONOCYTES RELATIVE PERCENT (BEAKER) (test 6 % auvz=259) EOSINOPHILS RELATIVE PERCENT (BEAKER) (test 1 % vbqe=279) BASOPHILS RELATIVE PERCENT (BEAKER) (test 0 % smvq=571) NEUTROPHILS ABSOLUTE COUNT (BEAKER) (test 8.42 K/ L 1.56-6.13 ysag=873) LYMPHOCYTES ABSOLUTE COUNT (BEAKER) (test 2.90 K/ L 1.18-3.74 lngb=483) MONOCYTES ABSOLUTE COUNT (BEAKER) (test 0.79 K/ L 0.24-0.36 hhcu=439) EOSINOPHILS ABSOLUTE COUNT (BEAKER) (test 0.07 K/ L 0.04-0.36 honu=505) BASOPHILS ABSOLUTE COUNT (BEAKER) (test 0.05 K/ L 0.01-0.08 eiiz=336) IMMATURE GRANULOCYTES-RELATIVE PERCENT (BEAKER) 1 % 0-1 (test xovp=2931) POCT-GLUCOSE [id number] 13:38:00 Test Item Value Reference Range Comments POC-GLUCOSE METER (BEAKER) 219 mg/dL 70-110 TESTED AT [address] (test lree=0800) [place] [id number] POCT-GLUCOSE [id number] 12:34:00 Test Item Value Reference Range Comments POC-GLUCOSE METER (BEAKER) 193 mg/dL 70-110 TESTED AT [address] (test pnwl=0996) [place] [id number] POCT-GLUCOSE [id number] 16:17:00 Test Item Value Reference Range Comments POC-GLUCOSE METER (BEAKER) 244 mg/dL 70-110 TESTED AT [address] (test dlew=5329) [place] [address] POCT-GLUCOSE [id number] 12:08:00 Test Item Value Reference Range Comments POC-GLUCOSE METER (BEAKER) 229 mg/dL 70-110 TESTED AT [address] (test wbcz=1052) [place] [address] POCT-GLUCOSE [id number] 08:27:00 Test Item Value Reference Range Comments POC-GLUCOSE METER (BEAKER) 280 mg/dL 70-110 TESTED AT [address] (test yezm=1479) [facility] [address] OSMOLALITY, [id number] 05:16:00 Test Item Value Reference Range Comments OSMOLALITY URINE (BEAKER) (test pmyf=026) 340 mOsm/kg 40-1,400 SPECIFIC GRAVITY, [id number] 04:53:00 Test Item Value Reference Range Comments SPECIFIC GRAVITY UA (BEAKER) (test robl=179) 1.010 1.001-1.035 POCT-GLUCOSE [id number] 22:29:00 Test Item Value Reference Range Comments POC-GLUCOSE METER (BEAKER) 257 mg/dL 70-110 TESTED AT [address] (test hwjj=3078) [place] [address] BASIC METABOLIC [id number] 17:49:00 Test Item Value Reference Range Comments SODIUM (BEAKER) (test 137 meq/L 136-145 gzjs=871) POTASSIUM (BEAKER) (test 4.6 meq/L 3.5-5.1 czgy=909) CHLORIDE (BEAKER) (test 102 meq/L 98-107 gyfu=266) CO2 (BEAKER) (test 26 meq/L 22-29 yroj=951) BLOOD UREA NITROGEN 14 mg/dL 7-21 (BEAKER) (test scss=001) CREATININE (BEAKER) (test 0.78 mg/dL 0.57-1.25 xncp=786) GLUCOSE RANDOM (BEAKER) 246 mg/dL 70-105 (test klzg=900) CALCIUM (BEAKER) (test 8.7 mg/dL 8.4-10.2 ormf=642) EGFR (BEAKER) (test 79 mL/min/1.73 sq m ESTIMATED GFR IS NOT tydr=6941) ACCURATE CREATININE CLEARANCE IN PREDICTING GLOMERULAR FILTRATION RATE. ESTIMATED GFR IS NOT APPLICABLE FOR DIALYSIS PATIENTS. POCT-GLUCOSE [id number] 17:02:00 Test Item Value Reference Range Comments POC-GLUCOSE METER (BEAKER) 235 mg/dL 70-110 TESTED AT [address] (test jurk=7054) [place] [address] POCT-GLUCOSE [id number] 12:06:00 Test Item Value Reference Range Comments POC-GLUCOSE METER (BEAKER) 249 mg/dL 70-110 TESTED AT [address] (test gihs=0488) [place] [address] POCT-GLUCOSE [id number] 09:40:00 Test Item Value Reference Range Comments POC-GLUCOSE METER (BEAKER) 278 mg/dL 70-110 TESTED AT [address] (test dwpm=4415) [place] [address] BASIC METABOLIC [id number] 06:14:00 Test Item Value Reference Range Comments SODIUM (BEAKER) (test 141 meq/L 136-145 smun=113) POTASSIUM (BEAKER) (test 4.1 meq/L 3.5-5.1 elub=066) CHLORIDE (BEAKER) (test 104 meq/L 98-107 jwks=330) CO2 (BEAKER) (test 30 meq/L 22-29 jxez=285) BLOOD UREA NITROGEN 14 mg/dL 7-21 (BEAKER) (test klad=092) CREATININE (BEAKER) (test 0.70 mg/dL 0.57-1.25 bhcu=354) GLUCOSE RANDOM (BEAKER) 146 mg/dL 70-105 (test tiai=230) CALCIUM (BEAKER) (test 9.4 mg/dL 8.4-10.2 iniz=640) EGFR (BEAKER) (test 89 mL/min/1.73 sq m ESTIMATED GFR IS NOT xyjm=4539) ACCURATE CREATININE CLEARANCE IN PREDICTING GLOMERULAR FILTRATION RATE. ESTIMATED GFR IS NOT APPLICABLE FOR DIALYSIS PATIENTS. [id number] 06:03:00 Test Item Value Reference Range Comments PROTIME (BEAKER) (test etwq=594) 13.8 seconds 11.7-14.7 INR (BEAKER) (test njsd=809) 1.1 <=5.9 PARTIAL THROMBOPLASTIN TIME (BEAKER) (test 32.0 seconds 22.5-36.0 ccoh=944) RECOMMENDED COUMADIN/WARFARIN INR THERAPY RANGESSTANDARD DOSE: 2.0 - 3.0 Includes: PROPHYLAXIS forvenous thrombosis, systemic embolization; TREATMENT for venous thrombosis and/or pulmonary embolus.HIGH RISK: Target INR is 2.5-3.5 for patients with mechanical heart valves. SCREEN, [id number] 05: 59:00 Test Item Value Reference Range Comments TEST URINE (BEAKER) (test kfks=707) Negative POCT-GLUCOSE [id number] 05:46:00 Test Item Value Reference Range Comments POC-GLUCOSE METER (BEAKER) 140 mg/dL 70-110 TESTED AT [facility] [address] [facility] (test gmge=0496) [facility] [address] CBC W/PLT COUNT & AUTO [id number] 05:46:00 Test Item Value Reference Range Comments WHITE BLOOD CELL COUNT (BEAKER) (test ujyc=629) 9.6 K/ L 3.5-10.5 RED BLOOD CELL COUNT (BEAKER) (test sruz=701) 5.00 M/ L 3.93-5.22 HEMOGLOBIN (BEAKER) (test brqb=875) 14.0 GM/DL 11.2-15.7 HEMATOCRIT (BEAKER) (test tyrk=551) 42.1 % 34.1-44.9 MEAN CORPUSCULAR VOLUME (BEAKER) (test ovwd=447) 84.2 fL 79.4-94.8 MEAN CORPUSCULAR HEMOGLOBIN (BEAKER) (test 28.0 pg 25.6-32.2 mtgy=681) MEAN CORPUSCULAR HEMOGLOBIN CONC (BEAKER) (test 33.3 GM/DL 32.2-35.5 wgdo=001) RED CELL DISTRIBUTION WIDTH (BEAKER) (test 13.0 % 11.7-14.4 hzbj=465) PLATELET COUNT (BEAKER) (test rbxn=383) 227 K/CU MM 150-450 MEAN PLATELET VOLUME (BEAKER) (test kwdm=844) 11.8 fL 9.4-12.3 NUCLEATED RED BLOOD CELLS (BEAKER) (test 0 /100 WBC 0-0 oewz=354) NEUTROPHILS RELATIVE PERCENT (BEAKER) (test 52 % sbom=748) LYMPHOCYTES RELATIVE PERCENT (BEAKER) (test 38 % xuvz=648) MONOCYTES RELATIVE PERCENT (BEAKER) (test 6 % mhcu=612) EOSINOPHILS RELATIVE PERCENT (BEAKER) (test 3 % kfpi=361) BASOPHILS RELATIVE PERCENT (BEAKER) (test 1 % wmll=063) NEUTROPHILS ABSOLUTE COUNT (BEAKER) (test 5.03 K/ L 1.56-6.13 hppk=582) LYMPHOCYTES ABSOLUTE COUNT (BEAKER) (test 3.62 K/ L 1.18-3.74 unec=386) MONOCYTES ABSOLUTE COUNT (BEAKER) (test 0.62 K/ L 0.24-0.36 xkqd=215) EOSINOPHILS ABSOLUTE COUNT (BEAKER) (test 0.27 K/ L 0.04-0.36 tbbz=049) BASOPHILS ABSOLUTE COUNT (BEAKER) (test 0.05 K/ L 0.01-0.08 nkeo=391) IMMATURE GRANULOCYTES-RELATIVE PERCENT (BEAKER) 1 % 0-1 (test ptgm=2772) POCT-GLUCOSE [id number] 21:27:00 Test Item Value Reference Range Comments POC-GLUCOSE METER (BEAKER) 223 mg/dL 70-110 TESTED AT [address] (test hkrg=3597) [place] [address] POCT-GLUCOSE [id number] 17:26:00 Test Item Value Reference Range Comments POC-GLUCOSE METER (BEAKER) 223 mg/dL 70-110 TESTED AT [address] (test dkeh=3636) [place] [address] BASIC METABOLIC [id number] 16:43:00 Test Item Value Reference Range Comments SODIUM (BEAKER) (test 139 meq/L 136-145 rhbs=030) POTASSIUM (BEAKER) (test 4.5 meq/L 3.5-5.1 Specimen slightly ddtr=164) hemolyzed CHLORIDE (BEAKER) (test 102 meq/L 98-107 qxze=145) CO2 (BEAKER) (test 29 meq/L 22-29 xmyz=883) BLOOD UREA NITROGEN 16 mg/dL 7-21 (BEAKER) (test bzrw=453) CREATININE (BEAKER) (test 0.76 mg/dL 0.57-1.25 Specimen slightly umcp=102) hemolyzed GLUCOSE RANDOM (BEAKER) 217 mg/dL 70-105 (test cxnq=978) CALCIUM (BEAKER) (test 9.6 mg/dL 8.4-10.2 enqn=490) EGFR (BEAKER) (test 81 mL/min/1.73 sq m ESTIMATED GFR IS NOT unal=5508) ACCURATE CREATININE CLEARANCE IN PREDICTING GLOMERULAR FILTRATION RATE. ESTIMATED GFR IS NOT APPLICABLE FOR DIALYSIS PATIENTS. POCT-GLUCOSE [id number] 09:06:00 Test Item Value Reference Range Comments POC-GLUCOSE METER (BEAKER) 265 mg/dL 70-110 TESTED AT [address] (test wsfh=0534) [place] [address] POCT-GLUCOSE [id number] 00:22:00 Test Item Value Reference Range Comments POC-GLUCOSE METER (BEAKER) 210 mg/dL 70-110 TESTED AT [address] (test muqe=2922) [place] [address] POCT-GLUCOSE [id number] 20:27:00 Test Item Value Reference Range Comments POC-GLUCOSE METER (BEAKER) 235 mg/dL 70-110 TESTED AT [address] (test hmtc=8446) [place] [address] POCT-GLUCOSE [id number] 17:10:00 Test Item Value Reference Range Comments POC-GLUCOSE METER (BEAKER) 264 mg/dL 70-110 TESTED AT [address] (test qjyn=3092) [place] [address] POCT-GLUCOSE [id number] 16:00:00 Test Item Value Reference Range Comments POC-GLUCOSE METER (BEAKER) 242 mg/dL 70-110 TESTED AT [address] (test qwbe=4703) [place] [address] POCT-GLUCOSE [id number] 08:54:00 Test Item Value Reference Range Comments POC-GLUCOSE METER (BEAKER) 224 mg/dL 70-110 TESTED AT [address] (test plgq=9440) [place] [address] POCT-GLUCOSE [id number] 21:30:00 Test Item Value Reference Range Comments POC-GLUCOSE METER (BEAKER) 254 mg/dL 70-110 TESTED AT [address] (test nvxw=3120) [place] [address] POCT-GLUCOSE [id number] 17:23:00 Test Item Value Reference Range Comments POC-GLUCOSE METER (BEAKER) 193 mg/dL 70-110 TESTED AT [address] (test ught=6019) [place] [address] POCT-GLUCOSE [id number] 11:53:00 Test Item Value Reference Range Comments POC-GLUCOSE METER (BEAKER) 179 mg/dL 70-110 TESTED AT [address] (test ezkv=1985) [place] [address] [id number] 10:15:00 Test Item Value Reference Range Comments CORTISOL, TOTAL (BEAKER) (test jwsv=3187) 4.7 ug/dL 3.7-19.4 POCT-GLUCOSE [id number] 08:07:00 Test Item Value Reference Range Comments POC-GLUCOSE METER (BEAKER) 184 mg/dL 70-110 TESTED AT [address] (test paiu=5444) [place] [address] CT, BRAIN, WITHOUT [id number] 22:07:00FINAL REPORT CT Head without contrast CLINICAL [...] [place] Verified Date/Time: 06/20/2018 22:07:25 Reading Location: [address] Transitional Reading Room POCT-GLUCOSE [id number] 21:00:00 Test Item Value Reference Range Comments POC-GLUCOSE METER (BEAKER) 227 mg/dL 70-110 TESTED AT [address] (test zsyp=2710) [place] [address] POCT-GLUCOSE [id number] 16:57:00 Test Item Value Reference Range Comments POC-GLUCOSE METER (BEAKER) 216 mg/dL 70-110 TESTED AT [address] (test vvpq=8437) [place] [id number] POCT-GLUCOSE [id number] 13:11:00 Test Item Value Reference Range Comments POC-GLUCOSE METER (BEAKER) 198 mg/dL 70-110 TESTED AT [address] (test axim=4308) [place] [id number] POCT-GLUCOSE [id number] 07:47:00 Test Item Value Reference Range Comments POC-GLUCOSE METER (BEAKER) 213 mg/dL 70-110 TESTED AT [address] (test jbyw=5169) [place] [address] BASIC METABOLIC [id number] 06:57:00 Test Item Value Reference Range Comments SODIUM (BEAKER) (test 138 meq/L 136-145 fohv=601) POTASSIUM (BEAKER) (test 3.9 meq/L 3.5-5.1 fxmx=727) CHLORIDE (BEAKER) (test 105 meq/L 98-107 qzrw=038) CO2 (BEAKER) (test 24 meq/L 22-29 qrbq=450) BLOOD UREA NITROGEN 12 mg/dL 7-21 (BEAKER) (test ptcw=082) CREATININE (BEAKER) (test 0.73 mg/dL 0.57-1.25 yslp=101) GLUCOSE RANDOM (BEAKER) 192 mg/dL 70-105 (test rpph=581) CALCIUM (BEAKER) (test 8.8 mg/dL 8.4-10.2 mlgf=959) EGFR (BEAKER) (test 85 mL/min/1.73 sq m ESTIMATED GFR IS NOT nnag=5324) ACCURATE CREATININE CLEARANCE IN PREDICTING GLOMERULAR FILTRATION RATE. ESTIMATED GFR IS NOT APPLICABLE FOR DIALYSIS PATIENTS. POCT-GLUCOSE [id number] 05:24:00 Test Item Value Reference Range Comments POC-GLUCOSE METER (BEAKER) 192 mg/dL 70-110 TESTED AT [facility] [address] [facility] (test abpr=4782) [facility] [address] [address], [place] [id number] 01:03:00FINAL REPORT CLINICAL HISTORY: Stroke TECHNIQUE: Initially, [...] Verified Date/ Time: 06/20/2018 01:03:44 Reading Location: [address] Transitional Reading Room [facility], [place], [id number] 01:03:00FINAL REPORT CLINICAL HISTORY: Stroke TECHNIQUE: Initially, [...] Date/ Time: 06/20/2018 01:03:44 Reading Location: [address] Reading Room POCT-GLUCOSE [id number] 00:40:00 Test Item Value Reference Range Comments POC-GLUCOSE METER (BEAKER) 283 mg/dL 70-110 TESTED AT [address] (test ongm=6732) [facility] [address] POCT-GLUCOSE [id number] 21:21:00 Test Item Value Reference Range Comments POC-GLUCOSE METER (BEAKER) 343 mg/dL 70-110 TESTED AT [address] (test bphf=8801) [facility] [address] SCREEN, [id number] 18:52:00 Test Item Value Reference Range Comments TEST URINE (BEAKER) (test yxcp=205) Negative POCT-GLUCOSE [id number] 17:17:00 Test Item Value Reference Range Comments POC-GLUCOSE METER (BEAKER) 287 mg/dL 70-110 TESTED AT [facility] [address] [facility] (test jgdm=3921) [facility] [address] [id number] 15:59:00 Test Item Value Reference Range Comments RPR SCREEN (BEAKER) (test esnj=330) Nonreactive Nonreactive POCT-GLUCOSE [id number] 15:07:00 Test Item Value Reference Range Comments POC-GLUCOSE METER (BEAKER) 323 mg/dL 70-110 TESTED AT [address] (test zmcj=7123) [place] [id number] T4, [id number] 13:11:00 Test Item Value Reference Range Comments FREE T4 (BEAKER) (test ycbs=394) 0.89 ng/dL 0.70-1.48 HIV-1 ANTIGEN WITH HIV-1/2 [id number] 13:11:00 Test Item Value Reference Range Comments HIV-1 ANTIGEN WITH HIV 1\\T\\2 ANTIBODY (2) Nonreactive Nonreactive (BEAKER) (test jpex=3919) RAPID DRUG SCREEN, [id number] 12:47:00 Test Item Value Reference Range Comments BARBITURATE URINE (BEAKER) (test bbad=741) Negative Negative BENZODIAZEPINE SCREEN URINE (BEAKER) (test Negative Negative bmqx=932) COCAINE (METAB.) SCREEN (BEAKER) (test ksal=3952) Negative Negative METHADONE SCREEN (BEAKER) (test ezua=4546) Negative Negative OPIATE SCREEN URINE (BEAKER) (test txen=849) Negative Negative CANNABINOID SCREEN URINE (BEAKER) (test nsow=588) Negative Negative AMPH/METHAMPH SCREEN (BEAKER) (test awhh=9511) Negative Negative PHENCYCLIDINE SCREEN URINE (BEAKER) (test lxbg=899) Negative Negative OXYCODONE SCREEN URINE (BEAKER) (test udzk=3954) Negative Negative DRUG CUTOFF CONC.Cocaine 300 ng/mL Cannabinoid 50 ng/mL Benzodiazepine 200 ng/mLBarbiturate 200 ng/ mLPhencyclidine 25 ng/mLOpiate 300 ng/mLMethadone 300 ng/mLAmphetamine/ 1000 ng/mL MethamphetamineOxycodone 300 ng/mLThis assay provides an unconfirmed qualitative test result for the clinical management of patients in emergency situations. Chain of custody not maintained. Some wgju-hyp-yzbzdee medications, as well as adulterants, may cause inaccurate results. Clinical correlation should be applied. A more comprehensive drug screen or confirmation of a detected drug may be performed upon request.POCT-GLUCOSE [id number] 12:37:00 Test Item Value Reference Range Comments POC-GLUCOSE METER (BEAKER) 292 mg/dL 70-110 TESTED AT [facility] [address] [facility] (test xsug=0517) [facility] [address] HEMOGLOBIN [id number] 12:35:00 Test Item Value Reference Range Comments HEMOGLOBIN A1C (BEAKER) (test lbkk=472) 7.9 % 4.3-6.1 OSMOLALITY, [id number] 12:34:00 Test Item Value Reference Range Comments OSMOLALITY, SERUM (BEAKER) (test oakq=294) 310 mOsm/kg 275-295 C-REACTIVE [id number] 12:28:00 Test Item Value Reference Range Comments C-REACTIVE PROTEIN (BEAKER) (test nues=836) 0.81 mg/dL 0.00-0.50 OSMOLALITY, [id number] 12:22:00 Test Item Value Reference Range Comments OSMOLALITY URINE (BEAKER) (test wwps=990) 247 mOsm/kg 40-1,400 CBC W/PLT COUNT & AUTO [id number] 12:14:00 Test Item Value Reference Range Comments WHITE BLOOD CELL COUNT (BEAKER) (test ywcx=042) 15.1 K/ L 3.5-10.5 RED BLOOD CELL COUNT (BEAKER) (test ziup=659) 5.15 M/ L 3.93-5.22 HEMOGLOBIN (BEAKER) (test mrql=945) 14.1 GM/DL 11.2-15.7 HEMATOCRIT (BEAKER) (test eeuz=205) 42.3 % 34.1-44.9 MEAN CORPUSCULAR VOLUME (BEAKER) (test wbrq=964) 82.1 fL 79.4-94.8 MEAN CORPUSCULAR HEMOGLOBIN (BEAKER) (test 27.4 pg 25.6-32.2 kvsh=072) MEAN CORPUSCULAR HEMOGLOBIN CONC (BEAKER) (test 33.3 GM/DL 32.2-35.5 amyq=907) RED CELL DISTRIBUTION WIDTH (BEAKER) (test 12.9 % 11.7-14.4 fvsj=230) PLATELET COUNT (BEAKER) (test xzms=631) 278 K/CU MM 150-450 MEAN PLATELET VOLUME (BEAKER) (test ymvz=864) 11.5 fL 9.4-12.3 NUCLEATED RED BLOOD CELLS (BEAKER) (test 0 /100 WBC 0-0 lnfc=762) NEUTROPHILS RELATIVE PERCENT (BEAKER) (test 87 % bxnq=768) LYMPHOCYTES RELATIVE PERCENT (BEAKER) (test 10 % iuig=432) MONOCYTES RELATIVE PERCENT (BEAKER) (test 3 % xrfe=700) EOSINOPHILS RELATIVE PERCENT (BEAKER) (test 0 % xbmy=556) BASOPHILS RELATIVE PERCENT (BEAKER) (test 0 % urnt=217) NEUTROPHILS ABSOLUTE COUNT (BEAKER) (test 13.06 K/ L 1.56-6.13 vgwj=729) LYMPHOCYTES ABSOLUTE COUNT (BEAKER) (test 1.51 K/ L 1.18-3.74 jquh=685) MONOCYTES ABSOLUTE COUNT (BEAKER) (test 0.38 K/ L 0.24-0.36 khkq=784) EOSINOPHILS ABSOLUTE COUNT (BEAKER) (test 0.00 K/ L 0.04-0.36 pwhx=970) BASOPHILS ABSOLUTE COUNT (BEAKER) (test 0.02 K/ L 0.01-0.08 ruwq=871) IMMATURE GRANULOCYTES-RELATIVE PERCENT (BEAKER) 1 % 0-1 (test qrol=1425) POCT-GLUCOSE [id number] 10:30:00 Test Item Value Reference Range Comments POC-GLUCOSE METER (BEAKER) 341 mg/dL 70-110 TESTED AT [address] (test ugmk=4213) [facility] [address] [id number] 06:17:00 Test Item Value Reference Range Comments PROLACTIN (BEAKER) (test yewe=811) 23.34 ng/mL 5.18-26.53 POCT-GLUCOSE [id number] 05:55:00 Test Item Value Reference Range Comments POC-GLUCOSE METER (BEAKER) 285 mg/dL 70-110 TESTED AT [address] (test avwv=1654) [facility] [address] MR, BRAIN, [id number] 02:25:00Pituitary protocolCr 0.6FINAL REPORT MRI brain with and without contrast Comparison: None. 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 Discussion: Multiplanar MR imaging of the brain and sella was provided xnx-bac-kvzm IV gadolinium administration using T1, T2, FLAIR, [...] MDReport Verified Date/Time: 06/19/2018 02:25:15 Reading Location: [address] Body Reading Room TSH/FREE T4 IF [id number] 00:26:00 Test Item Value Reference Range Comments THYROID STIMULATING HORMONE (BEAKER) (test 0.41 uIU/mL 0.35-4.94 atxb=656) BASIC METABOLIC [id number] 00:07:00 Test Item Value Reference Range Comments SODIUM (BEAKER) (test 136 meq/L 136-145 bawb=019) POTASSIUM (BEAKER) (test 4.0 meq/L 3.5-5.1 xhqa=612) CHLORIDE (BEAKER) (test 103 meq/L 98-107 ytff=196) CO2 (BEAKER) (test 20 meq/L 22-29 hcvd=921) BLOOD UREA NITROGEN 11 mg/dL 7-21 (BEAKER) (test ygit=003) CREATININE (BEAKER) (test 0.84 mg/dL 0.57-1.25 kzkr=125) GLUCOSE RANDOM (BEAKER) 357 mg/dL 70-105 (test ftub=819) CALCIUM (BEAKER) (test 9.0 mg/dL 8.4-10.2 gnow=541) EGFR (BEAKER) (test 72 mL/min/1.73 sq m ESTIMATED GFR IS NOT wade=9144) ACCURATE CREATININE CLEARANCE IN PREDICTING GLOMERULAR FILTRATION RATE. ESTIMATED GFR IS NOT APPLICABLE FOR DIALYSIS PATIENTS. URINALYSIS W/ REFLEX URINE [id number] 23:13:00 Test Item Value Reference Range Comments COLOR (BEAKER) (test kqfq=372) Yellow CLARITY (BEAKER) (test luyh=458) Clear SPECIFIC GRAVITY UA (BEAKER) (test vlmt=777) 1.011 1.001-1.035 PH UA (BEAKER) (test nmmv=976) 5.0 5.0-8.0 PROTEIN UA (BEAKER) (test szbf=296) Negative Negative GLUCOSE UA (BEAKER) (test oyih=656) >1000 mg/dL Negative KETONES UA (BEAKER) (test tmhh=879) 20 mg/dL Negative BILIRUBIN UA (BEAKER) (test bjel=467) Negative Negative BLOOD UA (BEAKER) (test bgdt=638) Negative Negative NITRITE UA (BEAKER) (test esqh=761) Negative Negative LEUKOCYTE ESTERASE UA (BEAKER) (test nubz=912) Negative Negative UROBILINOGEN UA (BEAKER) (test qpjc=047) 0.2 mg/dL 0.2-1.0 RBC UA (BEAKER) (test mrej=623) < /HPF WBC UA (BEAKER) (test ikjl=509) < /HPF SQUAMOUS EPITHELIAL (BEAKER) (test zezb=193) < /HPF SOURCE(BEAKER) (test ofsf=0814)
--- OUTSIDE RECORDS SUMMARY | 2019-01-02 20:27 | XMS REPORT ---
[...] System Date Losartan [facility] 45200188908 50-12.5 MG February 12, Active 1 tablet Potassium-HCTZ Orally Once a 2017 day Results No Known Results Summary Purpose eClinicalWorks Submission
--- OUTSIDE RECORDS SUMMARY | 2019-01-02 20:27 | XMS REPORT ---
[...] End Status Dosage System Date Date Hydrochlorothiazide [facility] 51480434492 12.5 MG Orally Jun 07, Active 1 tablet Once a day 2018 in the morning Levothyroxine Sodium ND 47634329347 88 MCG Oral Active TAKE 1 TABLET BY MOUTH EVERY MORNING Metformin HCl [facility] [address]-94 500 MG Orally Active 1 1/2 bid tablets with a meal Amlodipine Besylate ND 64978991427 10 MG Orally Active 1 tablet Once a day Hydrocortisone ND 03463974493 10 MG Orally Active 1 tablet every 12 hrs with food or milk Losartan [facility] 64253517180 50-12.5 MG Active 1 tablet Potassium-HCTZ Orally Once a day GlyBURIDE [facility] [address]-85 5 MG Orally Active 1/2 tablet BID with breakfast or the first main meal of the day Losartan Potassium [facility] 53705984086 50 MG Orally Active 1 tablet Once a day Results No Known Results Summary Purpose eClinicalWorks Submission
--- OUTSIDE RECORDS SUMMARY | 2019-01-02 20:27 | XMS REPORT ---
[...] Status Dosage System Date Date Atorvastatin Calcium [facility] 61802728790 10 MG Oral Active TAKE 1 TABLET BY MOUTH AT BEDTIME. ProAir HFA [facility] 83365277514 108 (90 Base) Active USE 1-2 MCG/ACT PUFFS BY Inhalation MOUTH EVERY 4-6 HOURS Levothyroxine Sodium ND 79603324581 88 MCG Oral Active TAKE 1 TABLET BY MOUTH EVERY MORNING Valsartan-Hydrochlor ND 65644057130 80-12.5 MG Active TAKE 1 othiazide Oral TABLET BY MOUTH EVERY DAY Benzonatate ND 83268073466 200 MG Oral Active TAKE ONE CAPSULE BY MOUTH 3 TIMES A DAY NEEDED FOR COUGH MethylPREDNISolone ND 47885851832 4 MG Oral Active TAKE 6 TABLETS ON DAY 1 DIRECTED ON PACKAGE AND DECREASE BY 1 TAB EACH DAY FOR A TOTAL OF 6 DAYS GlyBURIDE ND 17591133792 5 MG Orally Iraida Active 1 tablet Once a day 2017 breakfast or the first main meal of the day MetFORMIN HCl ER ND 44604540353 750 MG Oral Active TAKE 1 TABLET BY MOUTH 2 TIMES DAILY BEFORE BREAKFAST AND DINNER. Results No Known Results Summary Purpose eClinicalWorks Submission
--- OUTSIDE RECORDS SUMMARY | 2019-01-02 20:27 | XMS REPORT ---
[...] Status Dosage System Date Date Amlodipine ND 88163911762 10 MG Orally Active 1 tablet Besylate Once a day MetFORMIN HCl ER ND 72656983455 750 MG Orally Active 1 tablet Once a day with evening meal Levothyroxine ND 17833968211 88 MCG Oral Active TAKE 1 Sodium TABLET BY MOUTH EVERY MORNING Hydrocortisone ND 14069570901 10 MG Orally Active 1 tablet every 12 hrs with food or milk Losartan ND 95120675975 50 MG Orally Active 1 tablet Potassium Once a day GlyBURIDE [facility] [address]-71 5 MG Orally Active 1/2 tablet BID with breakfast or the first main meal of the day Trulicity [facility] 12868588606 0.75mg/0.5ml October Active one SQ once a week , , injection 2018 2018 Fluconazole [facility] 62438994642 150 MG Orally October Active 1 tablet Once a day 2018 2019 Results Name Result Date Reference Range Unit Abnormality Flag HEMOGLOBIN A1C ----A1C 9.8 [id number] Summary Purpose eClinicalWorks Submission
--- OUTSIDE RECORDS SUMMARY | 2019-01-02 20:27 | XMS REPORT ---
:1970 Author Organization eClinicalWorks Care Team Providers Name Role Phone [place], Neeru Provider Role Unavailable Allergies No Known [...]
--- OUTSIDE RECORDS SUMMARY | 2019-01-02 20:27 | XMS REPORT ---
[...] End Status Dosage System Date Date Diflucan [facility] 78055439099 150 MG Orally Feb 20Feb Active 1 tablet Once a day 2017 Nitrofurantoin ND 78515105582 100 MG Orally Feb 20Feb Active 1 capsule Macrocrystal BID 2017 12, with food 2018 or milk GlyBURIDE ND 18983447520 5 MG Orally January 21, Active 1 tablet Once a day 2017 with breakfast or the first main meal of the day Levothyroxine ND 34260574223 88 MCG Oral Active TAKE 1 Sodium TABLET BY MOUTH EVERY MORNING Losartan ND 43248556994 50-12.5 MG February 12, Active 1 tablet Potassium-HCTZ Orally Once a 2018 day Valsartan-Hydroch ND 70155475524 80-12.5 MG Oral Active TAKE 1 lorothiazide TABLET BY MOUTH EVERY DAY Results Name Result Date Reference Range Unit Abnormality Flag THINPREP TIS PAP AND HPV mRNA E6/E7, CHLAMYDIA/N.GONORRHOEAE URINALYSIS AUTO W/O SCOPE (92066) ----PROTEIN N [id number] ----pH 5.5 20180220 ----NIT P [id number] ----CONCEPCION 1+ 20180220 ----URO 1.0 20180220 ----SPECIFIC GRAVITY 1.015 20180220 ----BLO TR [id number] ----BILIRUBIN N 20180220 ----KETONES N [id number] ----GLUCOSE N [id number] Summary Purpose eClinicalWorks Submission
--- OUTSIDE RECORDS SUMMARY | 2019-01-02 20:27 | XMS REPORT ---
[...] End Date Status Dosage System Date Losartan [facility] 82122916494 50-12.5 MG Active 1 tablet Potassium-HCTZ Orally Once a day Results No Known Results Summary Purpose eClinicalWorks Submission
[2019-01-02] MEDS ORDERED: ALBUTEROL 2.5 MG/3 ML NEB SOL ONE (21:24)
[2019-01-02] MEDS ORDERED: IPRATROPIUM BROM 0.5MG/2.5ML ONE (21:24)
[2019-01-02 21:53] LABS: Absolute Monocytes 0.6 K/uL (0.1-1.3); Absolute Neutrophil 6.5 K/uL (1.8-8.0); Basophils % 1.2 % (0-1.3); Eosinophils % 2.6 % (0-4.4); Lymphocytes % 21.3 % (15.3-44.8); MPV 9.6 fL (7.6-11.3); Monocytes % 5.9 % (3.3-12.3); RBC Red Blood Cell Count 5.37 M/uL (3.86-4.86)
[2019-01-02 22:12] LABS: NT PRO-BNP 25 pg/mL (<125); Protime INR 1.05; Troponin (Emerg Dept Use Only) < 0.02 ng/mL (0.0-0.045)
[2019-01-02 22:20] LABS: ALT/SGPT 112 U/L (12-78); AST/SGOT 55 U/L (15-37); Albumin 3.6 g/dL (3.4-5.0); Alkaline Phosphatase 91 U/L (45-117); BUN Blood Urea Nitrogen 10 mg/dL (7-18); Bicarbonate 27 mmol/L (21-32); Bilirubin Direct 0.1 mg/dL (0-0.2); Bilirubin Total 0.6 mg/dL (0.2-1.0); Glucose Level 236 mg/dL (74-106); Potassium 3.6 mmol/L (3.5-5.1); Protein, Total 7.5 g/dL (6.4-8.2); Sodium Level 138 mmol/L (136-145)
[2019-01-02] MEDS ORDERED: ASPIRIN 81 MG CHEWABLE TABLET ONE (22:40)
[2019-01-02] MEDS ORDERED: METHYLPREDNISOLONE 125 MG INJ ONE (22:40)
[2019-01-02] MEDS ORDERED: FUROSEMIDE 20 MG/ 2ML VIAL ONE (22:40)
[2019-01-02 22:53] LABS: Urine Blood NEGATIVE (NEG); Urine Glucose 1+ (NEG); Urine Protein NEGATIVE (NEG); Urine Specific Gravity 1.015 (1.005-1.030); Urine pH 5.5 (5.0-7.0)
--- NOTE | 2019-01-02 23:14 | ER ---
Nurse's Notes [facility] Name: Chantal Stout Age: 48 yrs Sex: Female : 1970 Arrival Date: 01/02/2019 Time: 20:26 Bed 17 Private MD: Linnea Logan Diagnosis: Shortness of breath;Other chest pain Presentation: 01/02 20:34 Presenting complaint: Patient states: chest pressure, bilateral lower leg swelling. pt ak1 stated she missed her morning dose of losartan. pt stated her blood sugar is 342 tonight. pt stated she can not lay down due to SOB. pt sees Brook Logan for PCP. Transition of care: patient was not received from another setting of care. Onset of symptoms was January 02, 2019. Risk Assessment: Do you want to hurt yourself or someone else? Patient reports no desire to harm self or others. Initial Sepsis Screen: Does the patient meet any 2 criteria? No. Patient's initial sepsis screen is negative. Does the patient have a suspected source of infection? No. Patient's initial sepsis screen is negative. Care prior to arrival: None. 20:34 Acuity: NOÉ 2 ak1 20:34 Method Of Arrival: Ambulatory ak1 Triage Assessment: 20:31 General: Appears in no apparent distress. Behavior is calm, cooperative. ak1 21:00 Respiratory: Reports shortness of breath the patient has mild shortness of breath. 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 LMP N/A - Post-menopause ak1 Historical: - Allergies: 20:31 Bactrim; ak1 20:31 Cephalexin; ak1 20:31 Codeine; ak1 20:31 Iodine; ak1 20:31 Levaquin; ak1 20:31 Sulfa (Sulfonamide Antibiotics); ak1 - Home Meds: 20:31 amlodipine 10 mg tab 1 tab once daily [Active]; glyburide 5 mg Oral tab 1 tab once ak1 daily [Active]; hydrocortisone 10 mg Oral tab 1 tab 2 times per day [Active]; levothyroxine 75 mcg tab 1 tab once daily [Active]; losartan 50 mg Oral tab 1 tab once daily [Active]; metformin 750 mg Oral Tb24 1 tab twice a day [Active]; omeprazole 20 mg Oral cpDR 1 cap once daily [Active]; - PMHx: 20:31 Anemia; Asthma; pituitary tumor- surgically removed Jun 24; Hypothyroidism; ak1 Hypertension; Diabetes - NIDDM; - PSHx: 20:31 cercival tumor removed; ak1 - Immunization history:: Adult Immunizations unknown. - Social history:: Smoking status: Patient/guardian denies using tobacco. - Ebola Screening: : No symptoms or risks identified at this time. Screenin:21 Abuse screen: Denies threats or abuse. Denies injuries from another. Nutritional rr5 screening: No deficits noted. Tuberculosis screening: No symptoms or risk factors identified. Fall Risk None identified. Total Byrd Fall Scale indicates No Risk (0-24 pts). Assessment: 21:00 General: Appears in no apparent distress. uncomfortable, Behavior is calm, cooperative, rr5 appropriate for age. Pain: Complains of pain in chest Pain does not radiate. Pain currently is 6 out of 10 on a pain scale. Quality of pain is described as pressure, Pain began gradually, Is intermittent. Neuro: Level of Consciousness is awake, alert, obeys commands, Oriented to person, place, time, situation, Appropriate for age. Cardiovascular: Reports shortness of breath, chest pressure Capillary refill < 3 seconds Patient's skin is warm and dry. Rhythm is regular. Respiratory: Respiratory: Airway is patent Respiratory effort is even, unlabored, Respiratory pattern is regular, symmetrical. GI: No signs and/or symptoms were reported involving the gastrointestinal system. : No signs and/or symptoms were reported regarding the genitourinary system. EENT: No signs and/or symptoms were reported regarding the EENT system. Derm: Rash noted that is red, on chest. Musculoskeletal: Swelling present in right leg and left leg. 21:00 Respiratory: Breath sounds are clear. rr5 22:00 Reassessment: Patient appears in no apparent distress at this time. Patient is alert, rr5 oriented x 3, equal unlabored respirations, skin warm/dry/pink. awaiting for result. Patient states symptoms have improved. 23:00 Reassessment: Patient appears in no apparent distress at this time. Patient is alert, rr5 oriented x 3, equal unlabored respirations, skin warm/dry/pink. went to restroom voided freely. couple of times. patient verbalized she feels better now compare before. denies SOB. 01/03 00:05 Reassessment: Patient appears in no apparent distress at this time. Patient is alert, rr5 oriented x 3, equal unlabored respirations, skin warm/dry/pink. discharge instruction given and explained without complaints made. Patient states feeling better. Patient states symptoms have improved. Vital Signs: 01/02 20:31 BP 158 / 102; Pulse 86; Resp 18; Temp 97.6; Pulse Ox 96% on R/A; Weight 130.63 kg (R); ak1 Height 5 ft. 4 in. (162.56 cm) (R); Pain 6/10; 21:05 BP 162 / 92; Pulse 75; Resp 17; Temp 97.8; Pulse Ox 99% on R/A; Pain 6/10; rr5 22:00 BP 165 / 100; Pulse 90; Resp 20; Pulse Ox 97% on R/A; rr5 23:00 BP 151 / 85; Pulse 85; Resp 18; Temp 97.9; Pulse Ox 100% ; rr5 01/03 00:00 BP 148 / 89; Pulse 96; Resp 18; Temp 97.9; Pulse Ox 99% on R/A; rr5 01/02 20:31 Body Mass Index 49.43 (130.63 kg, 162.56 cm) ak1 ED Course: 01/02 20:26 Patient arrived in ED. am2 20:26 Linnea Logan FNP-C is Private Physician. am2 20:31 Arm band placed on Patient placed in an exam room, on a stretcher, Patient notified of ak1 wait time. 20:35 Triage completed. ak1 20:51 Marco Barnhart PA is PHCP. cp 20:51 David Gomez MD is Attending Physician. cp 21:00 Patient has correct armband on for positive identification. Placed in gown. Bed in low rr5 position. Call light in reach. Side rails up X2. compliance monitor on. Pulse ox on. NIBP on. 21:06 Leonardo Caro, ALCIDES is Primary Nurse. rr5 21:31 US Extremity Venous W Compression Efren In Process Unspecified. EDMS 21:33 XRAY Chest (1 view) In Process Unspecified. EDMS 21:45 Inserted saline lock: 20 gauge in left forearm, using aseptic technique. Blood rr5 collected. 21:45 Initial lab(s) drawn, by me, sent to lab. rr5 01/03 00:05 No provider procedures requiring assistance completed. IV discontinued, intact, rr5 bleeding controlled, No redness/swelling at site. Pressure dressing applied. Administered Medications: 01/02 21:44 Drug: Albuterol - atroVENT (3:1) (2.5 mg - 0.5 mg) 3 ml Route: Nebulizer; rr5 23:00 Follow up: Response: Marked relief of symptoms rr5 22:45 Drug: Aspirin Chewable Tablet 324 mg Route: PO; rr5 23:45 Follow up: Response: No adverse reaction rr5 22:46 Drug: SOLU-Medrol 60 mg Route: IVP; Site: left forearm; rr5 23:45 Follow up: Response: No adverse reaction rr5 22:47 Drug: Lasix 20 mg Route: IVP; Site: left forearm; rr5 23:45 Follow up: Response: No adverse reaction; Marked relief of symptoms rr5 Point of Care Testing: Blood Glucose: :46 Blood Glucose: 236 mg/dL; rr5 Ranges: Outcome: 23:13 Discharge ordered by MD. isaac 01/03 00:05 Discharged to home via wheelchair, with family. rr5 Discharge instructions given to patient, Instructed on discharge instructions, follow up and referral plans. medication usage, Demonstrated understanding of instructions, follow-up care, medications, Prescriptions given X 3. 00:05 Condition: stable rr5 00:08 Patient left the ED. rr5 Signatures: Dispatcher [employer] EDMS Clau Carvalho RN RN ak1 Marco Barnhart PA PA Tamia Hernández Raymond, RN RN rr5
--- NOTE | 2019-01-02 23:14 | EDPHYS ---
Physician Documentation [facility] Name: Chantal Stout Age: 48 yrs Sex: Female : 1970 Arrival Date: 01/02/2019 Time: 20:26 Bed 17 Private MD: Linnea Logan ED Physician David Gomez HPI: 01/02 21:10 This 48 yrs old Female presents to ER via Ambulatory with complaints of cp Shortness Of Breath, Chest Pressure. 21:10 The patient has shortness of breath at rest. cp 21:10 Onset: The symptoms/episode began/occurred today. Duration: The symptoms are cp continuous, and are steadily getting worse. Associated signs and symptoms: Pertinent positives: chest pressure, lower extremity swelling. 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 ak1 Historical: - Allergies: 20:31 Bactrim; ak1 20:31 Cephalexin; ak1 20:31 Codeine; ak1 20:31 Iodine; ak1 20:31 Levaquin; ak1 20:31 Sulfa (Sulfonamide Antibiotics); ak1 - Home Meds: 20:31 amlodipine 10 mg tab 1 tab once daily [Active]; glyburide 5 mg Oral tab 1 tab once ak1 daily [Active]; hydrocortisone 10 mg Oral tab 1 tab 2 times per day [Active]; levothyroxine 75 mcg tab 1 tab once daily [Active]; losartan 50 mg Oral tab 1 tab once daily [Active]; metformin 750 mg Oral Tb24 1 tab twice a day [Active]; omeprazole 20 mg Oral cpDR 1 cap once daily [Active]; - PMHx: 20:31 Anemia; Asthma; pituitary tumor- surgically removed Jun 24; Hypothyroidism; ak1 Hypertension; Diabetes - NIDDM; - PSHx: 20:31 cercival tumor removed; ak1 - Immunization history:: Adult Immunizations unknown. - Social history:: Smoking status: Patient/guardian denies using tobacco. - Ebola Screening: : No symptoms or risks identified at this time. ROS: 21:12 Constitutional: Negative for body aches, chills, fever, poor PO intake. cp 21:12 Eyes: Negative for injury, pain, redness, and discharge. cp 21:12 ENT: Negative for drainage from ear(s), ear pain, sore throat, difficulty swallowing, difficulty handling secretions. 21:12 Cardiovascular: Positive for chest pressure, Negative for palpitations. 21:12 Respiratory: Positive for shortness of breath, Negative for cough, wheezing. 21:12 Abdomen/GI: Negative for abdominal pain, nausea, vomiting, and diarrhea, black/tarry stool, rectal bleeding. 21:12 Back: Negative for pain at rest, pain with movement. 21:12 Skin: Negative for cellulitis, rash. 21:12 Neuro: Negative for altered mental status, headache, syncope, weakness. 21:12 All other systems are negative. Exam: 20:50 ECG was reviewed by the Attending Physician. cp 21:20 Constitutional: The patient appears in no acute distress, alert, awake, cp non-diaphoretic, non-toxic, well developed, well nourished, obese. 21:20 Head/Face: Normocephalic, atraumatic. cp 21:20 Eyes: Periorbital structures: appear normal, Conjunctiva: normal, no exudate, no injection, Sclera: no appreciated abnormality, Lids and lashes: appear normal, bilaterally. 21:20 ENT: External ear(s): are unremarkable, Nose: is normal, Mouth: Lips: moist, Oral mucosa: pink and intact, moist, Posterior pharynx: is normal, airway is patent, no erythema, no exudate. 21:20 Neck: ROM/movement: is normal, is supple, without pain, no range of motions limitations, no meningismus, no nuchal rigidity. 21:20 Chest/axilla: Inspection: normal, Palpation: crepitus, is not appreciated, tenderness, that is moderate, of the anterior aspect of right upper chest, anterior aspect of left upper chest and mid-sternal area, that partially reproduces the patient's complaints. 21:20 Cardiovascular: Rate: normal, Rhythm: regular, Pulses: Pulses are 2+ in right radial artery and left radial artery. JVD: is not appreciated. 21:20 Respiratory: the patient does not display signs of respiratory distress, Respirations: labored breathing, that is mild, intercostal retractions, are absent, splinting, is not noted, tachypnea, is not appreciated. 21:20 Abdomen/GI: Inspection: abdomen appears normal, Palpation: abdomen is soft and non-tender, in all quadrants. 21:20 Back: pain, is absent, ROM is normal. 21:20 Musculoskeletal/extremity: DVT Exam: no appreciated bluish discoloration, no erythema, no increased warmth, pain, of the right leg, of the left leg, swelling, that is mild, of the right leg, of the left leg, positive Homans' sign noted on exam. 21:20 Skin: cellulitis, is not appreciated, no rash present. 21:20 Neuro: Orientation: to person, place \T\ time. Mentation: is normal, Cerebellar function: is grossly normal, Motor: moves all fours, strength is normal, Sensation: is normal. Vital Signs: 20:31 BP 158 / 102; Pulse 86; Resp 18; Temp 97.6; Pulse Ox 96% on R/A; Weight 130.63 kg (R); ak1 Height 5 ft. 4 in. (162.56 cm) (R); Pain 6/10; 21:05 BP 162 / 92; Pulse 75; Resp 17; Temp 97.8; Pulse Ox 99% on R/A; Pain 6/10; rr5 22:00 BP 165 / 100; Pulse 90; Resp 20; Pulse Ox 97% on R/A; rr5 23:00 BP 151 / 85; Pulse 85; Resp 18; Temp 97.9; Pulse Ox 100% ; rr5 01/03 00:00 BP 148 / 89; Pulse 96; Resp 18; Temp 97.9; Pulse Ox 99% on R/A; rr5 01/02 20:31 Body Mass Index 49.43 (130.63 kg, 162.56 cm) ak1 MDM: 01/02 20:51 Patient medically screened. cp 22:00 Differential diagnosis: Anemia asthma, CHF exacerbation, Chronic Obstructive Pulmonary cp Disease Myocardial Infarction pneumonia, Pneumothorax Pulmonary Embolism Unstable Angina. 22:57 ED course: US negative for DVT. cp 23:12 Data reviewed: vital signs, nurses notes, lab test result(s), EKG, radiologic studies, cp plain films, ultrasound. 23:12 Test interpretation: by ED physician or midlevel provider: ECG, plain radiologic cp studies. Counseling: I had a detailed discussion with the patient and/or guardian regarding: the historical points, exam findings, and any diagnostic results supporting the discharge/admit diagnosis, lab results, radiology results, the need for outpatient follow up, a family practitioner, to return to the emergency department if symptoms worsen or persist or if there are any questions or concerns that arise at home. Response to treatment: the patient's symptoms have markedly improved after treatment, and as a result, I will discharge patient. ED course: VSS. Patient reports symptoms improved after treatment. EKG and troponin negative. Will discharge to home for continued monitoring. 01/02 21:00 Order name: Basic Metabolic Panel; Complete Time: 22:23 cp 01/02 21:00 Order name: CBC with Diff; Complete Time: 22:19 cp 01/02 22:17 Interpretation: Normal except: RBC 5.37; MCH 26.4. cp 01/02 21:00 Order name: LFT's; Complete Time: 22:23 cp 01/02 21:00 Order name: Magnesium; Complete Time: 22:19 cp 01/02 21:00 Order name: NT PRO-BNP; Complete Time: 22:19 cp 01/02 22:18 Interpretation: Within normal limits: NT PRO-BNP 25. cp 01/02 21:00 Order name: US Extremity Venous W Compression Efren cp 01/02 21:00 Order name: Troponin (emerg Dept Use Only); Complete Time: 22:19 cp 01/02 21:00 Order name: XRAY Chest (1 view) cp 01/02 21:04 Order name: D-Dimer; Complete Time: 22:19 cp 01/02 21:51 Order name: Protime (+INR); Complete Time: 22:19 EDMS 01/02 22:44 Order name: Urine Dipstick--Ancillary (enter results); Complete Time: 22:56 ar5 01/02 21:00 Order name: EKG; Complete Time: 21:05 cp 01/02 21:00 Order name: Cardiac monitoring; Complete Time: 21:09 cp 01/02 21:00 Order name: EKG - Nurse/Tech; Complete Time: 21:09 cp 01/02 21:00 Order name: IV Saline Lock; Complete Time: 23:15 cp 01/02 21:00 Order name: Labs collected and sent; Complete Time: 23:15 cp 01/02 21:00 Order name: O2 Per Protocol; Complete Time: 23:15 cp 01/02 21:00 Order name: O2 Sat Monitoring; Complete Time: 23:15 cp 01/02 21:00 Order name: Urine Dipstick-Ancillary (obtain specimen); Complete Time: 23:13 cp 01/02 21:00 Order name: Urine Test (obtain specimen); Complete Time: 23:13 cp 01/02 21:04 Order name: Accucheck Blood Glucose; Complete Time: 21:46 cp EC:50 Rate is 86 beats/min. Rhythm is regular. UT interval is normal. QRS interval is normal. cp QT interval is normal. T waves are Inverted in lead III. Interpreted by me. Reviewed by me. Administered Medications: 21:44 Drug: Albuterol - atroVENT (3:1) (2.5 mg - 0.5 mg) 3 ml Route: Nebulizer; rr5 23:00 Follow up: Response: Marked relief of symptoms rr5 22:45 Drug: Aspirin Chewable Tablet 324 mg Route: PO; rr5 23:45 Follow up: Response: No adverse reaction rr5 22:46 Drug: SOLU-Medrol 60 mg Route: IVP; Site: left forearm; rr5 23:45 Follow up: Response: No adverse reaction rr5 22:47 Drug: Lasix 20 mg Route: IVP; Site: left forearm; rr5 23:45 Follow up: Response: No adverse reaction; Marked relief of symptoms rr5 Point of Care Testing: Blood Glucose: 21:46 Blood Glucose: 236 mg/dL; rr5 Ranges: Critical Glucose Levels:Adult <50 mg/dl or >400 mg/dl <40 mg/dl or >180 mg/dl Disposition: 01/03 01:43 Co-signature as Attending Physician, David Gomez MD. Disposition: 01/02/19 23:13 Discharged to Home. Impression: Shortness of breath, Other chest pain. - Condition is Stable. - Discharge Instructions: Nonspecific Chest Pain, Shortness of Breath, Aspirin and Your Heart. - Prescriptions for Ibuprofen 800 mg Oral Tablet - take 1 tablet by ORAL route every 8 hours As needed take with food; 30 tablet. Albuterol Sulfate 2.5 mg /3 mL (0.083 %) Inhalation Solution for Nebulization - inhale 1 unit by NEBULIZATION route every 8 hours As needed; 1 box. Albuterol Sulfate 90 mcg/actuation - inhale 1-2 puff by INHALATION route every 4-6 hours; 1 Inhaler. - Medication Reconciliation Form, Thank You Letter, Antibiotic Education, Prescription Opioid Use form. - Follow up: Private Physician; When: 2 - 3 days; Reason: Worsening of condition. - Problem is new. - Symptoms have improved. Signatures: Dispatcher [employer] [facility] Clau Carvalho, RN RN ak1 Marco Barnhart PA PA cp Starr, Gregory, MD MD gs Leonardo Caro RN RN rr5 Corrections: (The following items were deleted from the chart) 01/02 21:50 21:04 PROTIME (+INR)+[id number].BRZ ordered. [facility] 01/03 00:08 01/02 23:13 01/02/2019 23:13 Discharged to Home. Impression: Shortness of breath; Other rr5 chest pain. Condition is Stable. Forms are Medication Reconciliation Form, Thank You Letter, Antibiotic Education, Prescription Opioid Use. Follow up: Private Physician; When: 2 - 3 days; Reason: Worsening of condition. Problem is new. Symptoms have improved. cp
[2019-01-03 02:27] VITALS: BP 162/92; TEMP 97.8; O2SAT 99
--- NOTE | 2019-01-03 07:22 | RAD REPORT ---
EXAM DESCRIPTION: US - Extrem Venous W Compress Efren - 01/02/2019 9:29 pm CLINICAL HISTORY: Bilateral leg pain and swelling COMPARISON: None. TECHNIQUE: Real-time sonographic evaluation of the bilateral lower extremity common femoral, superfi cial femoral, popliteal and posterior tibial veins was performed. FINDINGS: Normal compressibility, flow augmentation, phasic flow and spontaneous flow are identified in the left and right lower extremity common femoral, superficial femoral, popliteal and posterior t ibial veins. No intraluminal filling defects seen. IMPRESSION: No DVT in either lower extremity.
--- NOTE | 2019-01-03 08:03 | EKG ---
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
--- NOTE | 2019-01-03 08:16 | RAD REPORT ---
EXAM DESCRIPTION: RAD - Chest Single View - 01/02/2019 9:34 pm CLINICAL HISTORY: Shortness of breath, chest pain and chest pressure COMPARISON: December 08, 2018 TECHNIQUE: AP portable chest image was obtained 2134 hours . FINDINGS: Lung volumes are low accentuating interstitial pattern. Interstitial markings are not subs tantially different. No full consolidation, mass or failure finding. Heart and vasculature are normal . No measurable pleural effusion and no pneumothorax. No acute bony abnormality seen. No acute aortic findings suspected. IMPRESSION: Shallow inspiration film without acute cardiopulmonary finding. Shallow inspiration could mask the earliest stages of interstitial edema or infiltrate.
== END 2019-01-03 00:08 | disposition home or self-care (01) ==
LOC: ER 20:21
DX: R07.89 Other chest pain (principal); I10 Essential (primary) hypertension; E11.9 Type 2 diabetes mellitus without complications; E03.9 Hypothyroidism, unspecified; J45.909 Unspecified asthma, uncomplicated; Z88.1 Allergy status to other antibiotic agents; Z88.2 Allergy status to sulfonamides; Z88.5 Allergy status to narcotic agent; Z91.048 Other nonmedicinal substance allergy status
CPT/HCPCS: 36415; 71045; 80048; 80076; 81003; 82962; 83735; 83880; 84484; 85025; 85379; 85610; 93005; 93970; 94640; 96374; 96375; 99285; J1940; J2930

== ENCOUNTER 2019-02-07 19:39 | Emergency (ER) | payer SELFPAY ==
--- OUTSIDE RECORDS SUMMARY | 2019-02-07 19:43 | XMS REPORT | Clinical Summary ---
:1970 Author Organization [facility] Address [address] [place] [address] Care Team Providers Name Role Phone Pcp, [...] packet by 3 packet 5 06/25/2018 Active vynrs-pgwvsr-rggqwx Nasal route 2 bottle (NEILMED (two) times [...] MD Hoffman, Maria MD 06/18/2018 Travel after 02/06/2018 Family History Medical History Relation Name Comments [...] Taken Blood Pressure 125/71 06/27/2018 12:09 PM TELECOMMUNICATIONS LINESWORKER Pulse 63 06/27/2018 12:09 PM TELECOMMUNICATIONS LINESWORKER Temperature 36.2 C (97.1 F) 06/27/2018 12:09 PM TELECOMMUNICATIONS LINESWORKER Respiratory Rate 18 06/27/2018 12:09 PM TELECOMMUNICATIONS LINESWORKER Oxygen Saturation 97% 06/27/2018 12:09 PM TELECOMMUNICATIONS LINESWORKER Inhaled Oxygen Concentration - - Weight 122.5 kg (270 lb) 06/18/2018 9:00 PM TELECOMMUNICATIONS LINESWORKER Height 162.6 cm (5' 4") 06/18/2018 9:00 PM TELECOMMUNICATIONS LINESWORKER Body Mass Index 46.35 06/18/2018 9:00 PM TELECOMMUNICATIONS LINESWORKER Plan of Treatment Not on file Implants Implanted Type Area Occupational Health Nurse Supervisor Device Shelf Model / Identifier Expiration Serial / Date Lot Sealant Durasl Spine 5ml [id number] - [id number] Cement/Fi N/A: [employer] [id number] / Implanted: Qty: 1 on 06/24/2018 by Alex Ruano MD ller/[place] / sive [id number] Flseal sd Full Strlprep 10ml [id number] - [id number] Cement/Fi N/A: FUNES: BIOSCI 11/18/2019 [id number] / Implanted: Qty: 1 on 06/24/2018 by Alex Ruano MD ller/[place] / sive [id number] Graft Matrix Dura 1x3 [id number] - [id number] Neuro N/A: MED[employer]IC 02/20/2020 [id number] / Implanted: Qty: 1 on 06/24/2018 by Alex Ruano MD Head SURGICAL / NAVIGATION [id number] Procedures Procedure Name Priority Date/Time Associated Comments Diagnosis INTRAOPERATIVE PATH 06/29/2018 1:00 REPORT - SCAN PM TELECOMMUNICATIONS LINESWORKER RHYTHM STRIP - SCAN 06/29/2018 1:00 PM TELECOMMUNICATIONS LINESWORKER POCT-GLUCOSE METER Routine 06/27/2018 12:07 Results for this PM TELECOMMUNICATIONS LINESWORKER procedure are in the results section. POCT-GLUCOSE METER Routine 06/27/2018 7:41 Results for this AM TELECOMMUNICATIONS LINESWORKER procedure are in the results section. CBC W/PLT COUNT & AUTO Routine 06/27/2018 5:56 Results for this DIFFERENTIAL AM TELECOMMUNICATIONS LINESWORKER procedure are in the results section. BASIC METABOLIC PANEL Routine 06/27/2018 5:56 Results for this (7) AM TELECOMMUNICATIONS LINESWORKER procedure are in the results section. CBC W/PLT COUNT & AUTO Routine 06/27/2018 5:56 Results for this DIFFERENTIAL AM TELECOMMUNICATIONS LINESWORKER procedure are in the results section. CBC W/PLT COUNT & AUTO STAT 06/26/2018 11:18 Results for this DIFFERENTIAL PM TELECOMMUNICATIONS LINESWORKER procedure are in the results section. CBC W/PLT COUNT & AUTO STAT 06/26/2018 11:18 Results for this DIFFERENTIAL PM TELECOMMUNICATIONS LINESWORKER procedure are in the results section. BASIC METABOLIC PANEL STAT 06/26/2018 11:18 Results for this (7) PM TELECOMMUNICATIONS LINESWORKER procedure are in the results section. SODIUM, RANDOM URINE STAT 06/26/2018 11:11 Results for this PM TELECOMMUNICATIONS LINESWORKER procedure are in the results section. CT BRAIN WITHOUT IV STAT 06/26/2018 10:25 Results for this CONTRAST PM TELECOMMUNICATIONS LINESWORKER procedure are in the results section. POCT-GLUCOSE METER Routine 06/26/2018 9:01 Results for this PM TELECOMMUNICATIONS LINESWORKER procedure are in the results section. CBC W/PLT COUNT & AUTO Routine 06/26/2018 1:55 Results for this DIFFERENTIAL PM TELECOMMUNICATIONS LINESWORKER procedure are in the results section. BASIC METABOLIC PANEL Routine 06/26/2018 1:55 Results for this (7) PM TELECOMMUNICATIONS LINESWORKER procedure are in the results section. CBC W/PLT COUNT & AUTO Routine 06/26/2018 1:55 Results for this DIFFERENTIAL PM TELECOMMUNICATIONS LINESWORKER procedure are in the results section. POCT-GLUCOSE METER Routine 06/26/2018 1:33 Results for this PM TELECOMMUNICATIONS LINESWORKER procedure are in the results section. POCT-GLUCOSE METER Routine 06/26/2018 12:06 Results for this PM TELECOMMUNICATIONS LINESWORKER procedure are in the results section. POCT-GLUCOSE METER Routine 06/25/2018 4:10 Results for this PM TELECOMMUNICATIONS LINESWORKER procedure are in the results section. POCT-GLUCOSE METER Routine 06/25/2018 12:02 Results for this PM TELECOMMUNICATIONS LINESWORKER procedure are in the results section. POCT-GLUCOSE METER Routine 06/25/2018 8:02 Results for this AM TELECOMMUNICATIONS LINESWORKER procedure are in the results section. OSMOLALITY, URINE STAT 06/25/2018 4:23 Results for this AM TELECOMMUNICATIONS LINESWORKER procedure are in the results section. SPECIFIC GRAVITY, STAT 06/25/2018 4:23 Results for this URINE AM TELECOMMUNICATIONS LINESWORKER procedure are in the results section. POCT-GLUCOSE METER Routine 06/24/2018 9:56 Results for this PM TELECOMMUNICATIONS LINESWORKER procedure are in the results section. POCT-GLUCOSE METER Routine 06/24/2018 4:57 Results for this PM TELECOMMUNICATIONS LINESWORKER procedure are in the results section. BASIC METABOLIC PANEL STAT 06/24/2018 4:50 Results for this (7) PM TELECOMMUNICATIONS LINESWORKER procedure are in the results section. POCT-GLUCOSE METER Routine 06/24/2018 11:09 Results for this AM TELECOMMUNICATIONS LINESWORKER procedure are in the results section. POCT-GLUCOSE METER Routine 06/24/2018 9:38 Results for this AM TELECOMMUNICATIONS LINESWORKER procedure are in the results section. TISSUE EXAM AP Routine 06/24/2018 8:02 Results for this AM TELECOMMUNICATIONS LINESWORKER procedure are in the results section. ENDOSCOPIC SINUS 06/24/2018 7:00 Pituitary adenoma SURGERY,REPAIR CSF AM TELECOMMUNICATIONS LINESWORKER (HCC) [place] Special Needs (STEALTH NAVIGATION, LUMBAR DRAIN SET, LANDMARK CT SCAN ON ) TURBINECTOMY,NASAL 06/24/2018 7:00 AM TELECOMMUNICATIONS LINESWORKER Pituitary adenoma (HCC) Special Needs (STEALTH NAVIGATION, LUMBAR DRAIN SET, LANDMARK CT SCAN ON ) ENDOSCOPIC SINUS 06/24/2018 7:00 AM TELECOMMUNICATIONS LINESWORKER Pituitary adenoma SURGERY,ETHMOIDECTOMY W/ (HCC) SPHENOIDOTOMY Special Needs (STEALTH NAVIGATION, LUMBAR DRAIN SET, LANDMARK CT SCAN ON ) PROCEDURE W/ STEALTH 06/24/2018 7:00 AM TELECOMMUNICATIONS LINESWORKER Pituitary adenoma (HCC) Special Needs (STEALTH NAVIGATION, LUMBAR DRAIN SET, LANDMARK CT SCAN ON ) ENDOSCOPIC CRANIOTOMY,REMOVAL 06/24/2018 7:00 AM TELECOMMUNICATIONS LINESWORKER Pituitary adenoma ( HCC) TRANSSPHENOIDAL PITUITARY TUMOR Special Needs (STEALTH NAVIGATION, LUMBAR DRAIN SET, LANDMARK CT SCAN ON ) POCT-GLUCOSE METER Routine 06/24/2018 5:42 AM TELECOMMUNICATIONS LINESWORKER SCREEN, URINE STAT 06/24/2018 5:16 AM TELECOMMUNICATIONS LINESWORKER BASIC METABOLIC PANEL (7) Routine 06/24/2018 5:16 AM TELECOMMUNICATIONS LINESWORKER CBC W/PLT COUNT & AUTO Routine 06/24/2018 5:07 AM TELECOMMUNICATIONS LINESWORKER Results for this DIFFERENTIAL procedure are in the results section. PT/APTT Routine 06/24/2018 5:07 AM TELECOMMUNICATIONS LINESWORKER CBC W/PLT COUNT & AUTO Routine 06/24/2018 5:07 AM TELECOMMUNICATIONS LINESWORKER Results for this DIFFERENTIAL procedure are in the results section. POCT-GLUCOSE METER Routine 06/23/2018 9:21 PM TELECOMMUNICATIONS LINESWORKER POCT-GLUCOSE METER Routine 06/23/2018 4:31 PM TELECOMMUNICATIONS LINESWORKER BASIC METABOLIC PANEL (7) Routine 06/23/2018 4:13 PM TELECOMMUNICATIONS LINESWORKER POCT-GLUCOSE METER Routine 06/23/2018 8:30 AM TELECOMMUNICATIONS LINESWORKER POCT-GLUCOSE METER Routine 06/22/2018 11:34 PM TELECOMMUNICATIONS LINESWORKER POCT-GLUCOSE METER Routine 06/22/2018 8:21 PM TELECOMMUNICATIONS LINESWORKER POCT-GLUCOSE METER Routine 06/22/2018 5:07 PM TELECOMMUNICATIONS LINESWORKER POCT-GLUCOSE METER Routine 06/22/2018 11:49 AM TELECOMMUNICATIONS LINESWORKER POCT-GLUCOSE METER Routine 06/22/2018 8:30 AM TELECOMMUNICATIONS LINESWORKER POCT-GLUCOSE METER Routine 06/21/2018 9:09 PM TELECOMMUNICATIONS LINESWORKER POCT-GLUCOSE METER Routine 06/21/2018 5:20 PM TELECOMMUNICATIONS LINESWORKER POCT-GLUCOSE METER Routine 06/21/2018 11:06 AM TELECOMMUNICATIONS LINESWORKER ECHOCARDIOGRAM REPORT - SCAN 06/21/2018 9:21 AM TELECOMMUNICATIONS LINESWORKER FOLLICLE STIMULATING HORMONE Routine 06/21/2018 9:11 AM TELECOMMUNICATIONS LINESWORKER Results for this (FSH) procedure are in the results section. INSULIN-LIKE GROWTH FACTOR Routine 06/21/2018 9:11 AM TELECOMMUNICATIONS LINESWORKER ACTH Routine 06/21/2018 9:11 AM TELECOMMUNICATIONS LINESWORKER CORTISOL Routine 06/21/2018 9:11 AM TELECOMMUNICATIONS LINESWORKER POCT-GLUCOSE METER Routine 06/21/2018 7:[address]ES[address] BRAIN WITHOUT IV CONTRAST TERI 06/20/2018 9:48 PM TELECOMMUNICATIONS LINESWORKER POCT-GLUCOSE METER Routine 06/20/2018 8:48 PM TELECOMMUNICATIONS LINESWORKER 2D ECHO W/ DOPPLER Routine 06/20/2018 6:40 PM TELECOMMUNICATIONS LINESWORKER Results for this (CW/PW/COLOR) procedure are in the results section. POCT-GLUCOSE METER Routine 06/20/2018 4:48 PM TELECOMMUNICATIONS LINESWORKER POCT-GLUCOSE METER Routine 06/20/2018 1:06 PM TELECOMMUNICATIONS LINESWORKER POCT-GLUCOSE METER Routine 06/20/2018 7:21 AM TELECOMMUNICATIONS LINESWORKER POCT-GLUCOSE METER Routine 06/20/2018 5:22 AM TELECOMMUNICATIONS LINESWORKER BASIC METABOLIC PANEL (7) STAT 06/20/2018 5:08 AM TELECOMMUNICATIONS LINESWORKER POCT-GLUCOSE METER Routine 06/20/2018 12:[address]ICATIONS [address]ESWORKER [address]/CTA CAROTID ETRI 06/19/2018 10:[address]ES[address]ER [address]/CTA BRAIN TERI 06/19/2018 10:46 PM TELECOMMUNICATIONS LINESWORKER POCT-GLUCOSE METER Routine 06/19/2018 9:19 PM TELECOMMUNICATIONS LINESWORKER POCT-GLUCOSE METER Routine 06/19/2018 5:06 PM TELECOMMUNICATIONS LINESWORKER POCT-GLUCOSE METER Routine 06/19/2018 3:03 PM TELECOMMUNICATIONS LINESWORKER POCT-GLUCOSE METER Routine 06/19/2018 12:27 PM TELECOMMUNICATIONS LINESWORKER SCREEN, URINE Routine 06/19/2018 11:54 AM TELECOMMUNICATIONS LINESWORKER OSMOLALITY, URINE Routine 06/19/2018 11:54 AM TELECOMMUNICATIONS LINESWORKER RAPID DRUG SCREEN, URINE Routine 06/19/2018 11:54 AM TELECOMMUNICATIONS LINESWORKER CBC W/PLT COUNT & AUTO Routine 06/19/2018 11:49 AM TELECOMMUNICATIONS LINESWORKER Results for this DIFFERENTIAL procedure are in the results section. INSULIN-LIKE GROWTH FACTOR Routine 06/19/2018 11:49 AM TELECOMMUNICATIONS LINESWORKER OSMOLALITY, SERUM Routine 06/19/2018 11:49 AM TELECOMMUNICATIONS LINESWORKER T4, FREE Routine 06/19/2018 11:49 AM TELECOMMUNICATIONS LINESWORKER C-REACTIVE PROTEIN Routine 06/19/2018 11:49 AM TELECOMMUNICATIONS LINESWORKER HIV-1 ANTIGEN WITH HIV-1/2 Routine 06/19/2018 11:49 AM TELECOMMUNICATIONS LINESWORKER Results for this ANTIBODY procedure are in the results section. RPR Routine 06/19/2018 11:49 AM TELECOMMUNICATIONS LINESWORKER CBC W/PLT COUNT & AUTO Routine 06/19/2018 11:49 AM TELECOMMUNICATIONS LINESWORKER Results for this DIFFERENTIAL procedure are in the results section. POCT-GLUCOSE METER Routine 06/19/2018 9:25 AM TELECOMMUNICATIONS LINESWORKER POCT-GLUCOSE METER Routine 06/19/2018 5:51 AM TELECOMMUNICATIONS LINESWORKER GROWTH HORMONE Routine 06/19/2018 3:49 AM TELECOMMUNICATIONS LINESWORKER LUTEINIZING HORMONE (LH) Routine 06/19/2018 3:49 AM TELECOMMUNICATIONS LINESWORKER ACTH Routine 06/19/2018 3:49 AM TELECOMMUNICATIONS LINESWORKER PROLACTIN Routine 06/19/2018 3:49 AM TELECOMMUNICATIONS LINESWORKER MR BRAIN WITHOUT & WITH IV STAT 06/19/2018 2:25 AM TELECOMMUNICATIONS LINESWORKER Results for this CONTRAST procedure are in the results section. HEMOGLOBIN A1C Routine 06/19/2018 12:39 AM TELECOMMUNICATIONS LINESWORKER TSH/FREE T4 IF INDICATED Routine 06/18/2018 11:32 PM TELECOMMUNICATIONS LINESWORKER BASIC METABOLIC PANEL (7) STAT 06/18/2018 11:32 PM TELECOMMUNICATIONS LINESWORKER URINALYSIS W/ REFLEX URINE Routine 06/18/2018 10:27 PM TELECOMMUNICATIONS LINESWORKER Results for this CULTURE procedure are in the results section. after 02/06/2018 Results INTRAOPERATIVE PATH REPORT - SCAN (06/29/2018 1:00 PM TELECOMMUNICATIONS LINESWORKER) Narrative Performed At RHYTHM STRIP - SCAN (06/29/2018 1:00 PM TELECOMMUNICATIONS LINESWORKER) Narrative Performed At POC-Glucose meter (06/27/2018 12:07 PM TELECOMMUNICATIONS LINESWORKER)Only the most recent of37 resultswithin the time period is included. POC-Glucose Meter 141 (H)Comment: TESTED AT 70 - 110 mg/dL [facility] [address] [facility] [address] Specimen Blood Performing Organization Address City/State/Zipcode Phone Number [address] [phone] CENTER CBC with platelet count + automated diff (06/27/2018 5:56 AM TELECOMMUNICATIONS LINESWORKER)Only the most recent of5 resultswithin the time period is included. WBC 8.7 3.5 - 10.5 K/L [facility] RBC 4.82 3.93 - 5.22 M/L [facility] Hemoglobin 13.2 11.2 - 15.7 GM/DL [facility] Hematocrit 40.8 34.1 - 44.9 % [facility] MCV 84.6 79.4 - 94.[address] [facility] MCH 27.4 25.6 - 32.[address] [facility] MCHC 32.4 32.2 - 35.5 GM/DL [facility] RDW 13.2 11.7 - 14.4 % [facility] Platelets 233 150 - 450 K/CU MM [facility] MPV 11.5 9.4 - 12.[address] [facility] nRBC 0 0 - 0 /[address] [facility] % Neutros 65 % [facility] % Lymphs 24 % [facility] % Monos 8 % [facility] % Eos 2 % [facility] % Baso 0 % [facility] # Neutros 5.65 1.56 - 6.13 K/L [facility] # Lymphs 2.07 1.18 - 3.74 K/L [facility] # Monos 0.70 (H) 0.24 - 0.36 K/L [facility] # Eos 0.16 0.04 - 0.36 K/L [facility] # Baso 0.02 0.01 - 0.08 K/L [facility] Immature Granulocytes-Relative 1 0 - 1 % [facility] Specimen Blood Performing Organization Address City/State/Zipcode Phone Number [facility] [address] [place] [address] CENTER Basic Metabolic Panel (06/27/2018 5:56 AM TELECOMMUNICATIONS LINESWORKER)Only the most recent of8 resultswithin the time period is included. Sodium 139 136 - 145 meq/L [facility] Potassium 4.1 3.5 - 5.1 meq/L [facility] Chloride 105 98 - 107 meq/L [facility] CO2 28 22 - 29 meq/L [facility] BUN 11 7 - 21 mg/dL [facility] Creatinine 0.69 0.57 - 1.25 mg/dL [facility] Glucose 163 (H) 70 - 105 mg/dL [facility] Calcium 8.6 8.4 - 10.2 mg/dL [facility] EGFR 91Comment: ESTIMATED GFR IS mL/min/1.73 sq m [facility] NOT ACCURATE CREATININE [facility] CENTER CLEARANCE IN PREDICTING GLOMERULAR FILTRATION RATE. ESTIMATED GFR IS NOT APPLICABLE FOR DIALYSIS PATIENTS. Specimen Blood Performing Organization Address City/State/[facility] Cent[facility] Phone Number [address] [phone] [place] Sodium, random urine (06/26/2018 11:11 PM TELECOMMUNICATIONS LINESWORKER) Sodium Urine <20 meq/L [facility] Specimen Urine Narrative Performed At Reference Range: No Normals [facility] Performing Organization Address [facility] Phone Number [address] [address] [phone] [place] [address] brain without IV contrast (06/26/2018 10:25 PM TELECOMMUNICATIONS LINESWORKER)Only the most recent of2 resultswithin the time period is included. Specimen Narrative Performed At FINAL REPORT [email or web address] [facility] CT Head without contrast CLINICAL HISTORY: [...] MD Report Verified Date/Time:06/26/2018 22:57:28 Reading Location: [address] Transitional Reading Room Procedure Note Interface, External Ris In - 06/26/2018 10:59 PM TELECOMMUNICATIONS LINESWORKER FINAL REPORT CT Head without contrast CLINICAL [...] Report Verified Date/Time: 06/26/2018 22:57:28 Reading Location: [address] Transitional Reading Room Performing Organization Address City/State/Zipcode Phone Number [facility] Specific gravity, urine (06/25/2018 4:23 AM TELECOMMUNICATIONS LINESWORKER) Specific [place], UA 1.010 1.001 - 1.035 [facility] Specimen Urine Performing Organization Address City/State/Zipcode Phone Number [facility] [address] [place] [address] [phone] [place] Osmolality, urine (06/25/2018 4:23 AM TELECOMMUNICATIONS LINESWORKER)Only the most recent of2 resultswithin the time period is included. Osmolality, Ur 340 40-1,400 mOsm/kg [facility] Specimen Urine Performing Organization Address City/[facility] Cent[facility] Phone Number [facility] [address] [place] [address] [phone] [place] Tissue Exam (06/24/2018 8:02 AM TELECOMMUNICATIONS LINESWORKER) Case Report Surgical Pathology Report Case: [id number] [facility] Authorizing Provider:Alex Ruano MD Collected: 06/24/2018 0802 [facility] Ordering Location: [address] Received: 06/24/2018 0809 CENTER Service Pathologist: Chon Caraballo MD Specimens: A) - Tumor, pituitary tumor B) - Tumor, pituitary tumor DIAGNOSIS A.PITUITARY GLAND, TRANSSPHENOIDAL HYPOPHYSECTOMY: [facility] NULL CELL ADENOMA INVADING RESPIRATORY MUCOSA [facility] B. PITUITARY GLAND, TRANSSPHENOIDAL HYPOPHYSECTOMY: NULL CELL ADENOMA ENTRAPPED ADENOHYPOPHYSIS Signing Pathologist Direct Phone Line: [phone] COMMENT [facility]oxidase stains [facility] performed on the second [facility] MEDICAL specimen show that the tumor CENTER has no staining for growth hormone, LH, FSH, TSH, prolactin, or ACTH. 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 The MIB-1 proliferation index is less than 1%. CPT Code(s) 64415 x 2; 28205; 70440; 10694 [facility] x 6; 78726 [facility] CLINICAL HISTORY Pituitary adenoma [facility] SPECIMEN SOURCE A. Pituitary tumor; B. [facility] Pituitary tumor [facility] GROSS DESCRIPTION A. The specimen is received fresh for frozen section diagnosis and labeled "pituitary tumor" and consists of a single fragment of tariq -red soft tissue measuring 0.5 cm in greatest dimension submitted ent [facility] [place] for frozen section diagnosis, and touch preps are performed. CG/ew [facility] B. Received fresh labeled "tumor", description "pituitary tumor" is a 2.0 x 1.0 x 0.3 cm aggregate of pink-tariq to hannah-white rubbery friable soft tissue. The specimen is entirely submitted in cassette B1. DB/pl INTRAOPERATIVE FROZEN SECTION DIAGNOSIS, PITUITARY TUMOR: [facility] CONSULTATION ADENOMA EXTENDING INTO RESPIRATORY [place] PER DR. CARABALLO [facility] MICROSCOPIC DESCRIPTION Performed on A and B [facility] SPECIAL STUDIES The interpretation of this case included the use of immunohistochemistry or special stains. [facility] Immunohistochemistry technical testing was performed at [facility], Pathology Laboratory where it was developed [...] Tumor Performing Organization Address City/State/Zipcode Phone Number [facility] [address] [place] [address] [phone] CENTER Screen, urine (06/24/2018 5:16 AM TELECOMMUNICATIONS LINESWORKER)Only the most recent of2 resultswithin the time period is included. Preg Test, Ur Negative [facility] Specimen Urine Performing Organization Address City/[facility]/Zipcode Phone Number [facility] [address] [place] [address] CENTER PT/aPTT (06/24/2018 5:07 AM TELECOMMUNICATIONS LINESWORKER) Protime 13.8 11.7 - 14.[address] [facility] INR 1.1 <=[address]9 [facility] PTT 32.0 22.5 - 36.[address] [facility] Specimen Blood Narrative Performed At RECOMMENDED COUMADIN/WARFARIN INR THERAPY [facility] RANGES STANDARD DOSE: 2.0 - 3.0 Includes: PROPHYLAXIS for venous thrombosis, systemic embolization; TREATMENT for venous thrombosis and/or pulmonary embolus. HIGH RISK: Target INR is 2.5-3.5 for patients with mechanical heart valves. Performing Organization Address [facility] Cent[facility] Phone Number [address] [address] [place] ECHOCARDIOGRAM REPORT - SCAN (06/21/2018 9:21 AM TELECOMMUNICATIONS LINESWORKER) Narrative Performed At Cortisol (06/21/2018 9:11 AM TELECOMMUNICATIONS LINESWORKER) Cortisol, Total 4.7 3.7 - 19.4 ug/dL [facility] Specimen Blood Performing Organization Address City/[facility] Phone Number [address] [address] CENTER Insulin-like growth factor (06/21/2018 9:11 AM TELECOMMUNICATIONS LINESWORKER)Only the most recent of2 resultswithin the time period is included. Igf-1(Somatomedin-C) 36 (L) 52 - 328 ng/mL [facility] Z-Score Male: DNR [facility] Z-Score Female: -2.6 (L) -2.0 - 2.0 SD [facility] Comment: INCORPORATED This test was developed and its analytical performance characteristics have been determined by [employer] [facility]. It has not been cleared or approved by FDA. This assay has been validated pursuant to the CLIA regulations and is used for clinical purposes. Specimen Blood Narrative Performed At Performing Lab [employer] [facility] [address] [address] Sixto Rodrigez MD, PhD, ANABELL Performing Organization Address [facility] Phone Number [employer] [place] [address] [place] [address] [employer] [facility] ACTH (06/21/2018 9:11 AM TELECOMMUNICATIONS LINESWORKER)Only the most recent of2 resultswithin the time period is included. ACTH 17 6 - 50 pg/mL [employer] [facility] Comment: Reference range applies only to the specimens collected between 7am-10am. Specimen Blood Narrative Performed At Performing Lab [facility] [address] Sixto Rodrigez MD, PhD, ANABELL Performing Organization Address [facility] Number [employer]., [place] [address] [address] [place] [address] [employer] Follicle stimulating hormone (FSH) (06/21/2018 9:11 AM TELECOMMUNICATIONS LINESWORKER) Fsh 2.3 mIU/mL [employer] Comment: Adult female reference ranges for FSH: Follicular Phase: 2.5- 10.2 mIU/mL Mid-Cycle:3.1- 17.7 mIU/mL Luteal Phase: 1.5-9.1 mIU/mL Postmenopausal:23.0-116.3 mIU/mL Children (<18 Years Old): FSH reference ranges established on post-pubertal patient population. Reference range not established for pre-pubertal patients using this assay. For pre-pubertal patients, the [employer] FSH, Pediatrics assay is recommended (test code 58510). Specimen Blood Narrative Performed At Performing Lab [facility] [address] [address] Sixto Rodrigez MD, PhD, ANABELL Performing Organization Address [facility] [place] Number [place] [address] [address] [place] [address] 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 Mi ld mitral annular calcification. Tr racehll mitral regurgitation. 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 Rowell Physician Procedure Type of [...] TR Gradient: 18.02 mmHg Performing Organization Address City/State/[facility] Phone Number [facility] MKCKESSON CPACS CTA carotid (06/19/2018 10:46 PM TELECOMMUNICATIONS LINESWORKER) Specimen Narrative Performed At FINAL REPORT [email or web address] [facility] CLINICAL HISTORY: Stroke TECHNIQUE: Initially, noncontrast [...] MD Report Verified Date/Time:06/20/2018 01:03:44 Reading Location: [address] Transitional Reading Room Procedure Note Interface, External Ris In - 06/20/2018 1:05 AM TELECOMMUNICATIONS LINESWORKER FINAL REPORT CLINICAL HISTORY: Stroke TECHNIQUE: Initially, [...] Report Verified Date/Time: 06/20/2018 01:03:44 Reading Location: [address] Transitional Reading Room Performing Organization Address City/State/Zipcode Phone Number [employer] CTA brain (06/19/2018 10:46 PM TELECOMMUNICATIONS LINESWORKER) Specimen Narrative Performed At FINAL REPORT [email or web address] [facility] CLINICAL HISTORY: Stroke TECHNIQUE: Initially, noncontrast [...] MD Report Verified Date/Time:06/20/2018 01:03:44 Reading Location: [address] Transitional Reading Room Procedure Note Interface, External Ris In - 06/20/2018 1:05 AM TELECOMMUNICATIONS LINESWORKER FINAL REPORT CLINICAL HISTORY: Stroke TECHNIQUE: Initially, [...] Report Verified Date/Time: 06/20/2018 01:03:44 Reading Location: [address] Transitional Reading Room Performing Organization Address City/State/Zipcode Phone Number RIS Rapid drug screen, urine (06/19/2018 11:54 AM TELECOMMUNICATIONS LINESWORKER) Barbiturate Screen Negative Negative [facility] Benzodiazepine Screen Negative Negative [facility] Cocaine (Metab.) Screen Negative Negative [facility] Methadone Screen Negative Negative [facility] Opiate Screen Negative Negative [facility] Cannabinoid Screen Negative Negative [facility] Amph/Methamph Screen Negative Negative [facility] Phencyclidine Screen Negative Negative [facility] Oxycodone Screen Negative Negative [facility] Specimen Urine Narrative Performed At [facility]UGC[facility] CONC. Cocaine 300 ng/mL Dlxlylmbaic13 ng/mL Pvcdbtyzrpinfv762 ng/mL Barbiturate 200 ng/mL Brioqhdnmssot76 ng/mL Fkrxba752 ng/mL Methadone 300 ng/mL Amphetamine/ 1000 ng/mL Methamphetamine Oxycodone 300 ng/mL This assay provides an unconfirmed qualitative test result for the clinical management of patients in emergency situations. Chain of custody not maintained. Some phmv-kpb-xtkxemb medications, as well as adulterants, may cause inaccurate results. Clinical correlation should be applied. A more comprehensive drug screen or confirmation of a detected drug may be performed upon request. Performing Organization Address City/[facility] Centercode Phone Number [address] [address] [phone] CENTER HIV-1 Antigen with HIV-1/2 Antibody (06/19/2018 11:49 AM TELECOMMUNICATIONS LINESWORKER) HIV-1 Antigen with HIV 1&2 Nonreactive Nonreactive [facility] Specimen Blood Performing Organization Address [facility] Centercofl Phone Number [address] [address] CENTER C-Reactive Protein (06/19/2018 11:49 AM TELECOMMUNICATIONS LINESWORKER) CRP 0.81 (H) 0.00 - 0.50 mg/dL [facility] Specimen Blood Performing Organization Address City/[facility]/Zipcode Phone Number [address] [address] [phone] CENTER RPR (06/19/2018 11:49 AM TELECOMMUNICATIONS LINESWORKER) RPR Nonreactive Nonreactive [facility] Specimen Blood Performing Organization Address [facility] Centercode Phone Number [address] [address] CENTER T4, free (06/19/2018 11:49 AM TELECOMMUNICATIONS LINESWORKER) Free T4 0.89 0.70 - 1.48 ng/dL [facility] Specimen Blood Performing Organization Address City/[facility]/Zipcode Phone Number [address] [address] CENTER Osmolality, serum (06/19/2018 11:49 AM TELECOMMUNICATIONS LINESWORKER) Osmolality Serum 310 (H) 275 - 295 mOsm/kg [facility] Specimen Blood Performing Organization Address City/State/Zipcode Phone Number [address] [address] CENTER Prolactin (06/19/2018 3:49 AM TELECOMMUNICATIONS LINESWORKER) Prolactin 23.34 5.18 - 26.53 ng/mL [facility] Specimen Blood Performing Organization Address [facility] Centercofl Phone Number [address] [phone] [place] Growth hormone (06/19/2018 3:49 AM TELECOMMUNICATIONS LINESWORKER) Growth Hormone <0.1 < OR=7.1 ng/mL [facility] [...] Guideline. J Clin Endocrinol Metab 2014; 99: 2819-2474]. Using GH stimulation testing, the following result at any point in the timed sequence makes GH deficiency unlikely: Adults (> or=20 years): Insulin Hypoglycemia > or=5.1 ng/mL Arginine/GHRH> or=4.1 ng/mL Glucagon > or=3.0 ng/mL Children (<20 years): All Stimulation Tests> or=10.0 ng/mL Specimen Blood Narrative Performed At Performing Lab [employer] [facility] [address] [id number] [place] [address] Sixto Rodrigez MD, PhD, ANABELL Performing Organization Address [facility] Phone Number [employer] [place] [address] [place] [address] Luteinizing hormone (LH) (06/19/2018 3:49 AM TELECOMMUNICATIONS LINESWORKER) LH, Serum 0.2 mIU/mL [employer] Comment: Adult Female Reference Ranges for LH: Follicular Phase:1.9-12.5 mIU/mL Mid-Cycle Peak:8.7-76.3 mIU/mL Luteal Phase:0.5-16.9 mIU/mL Postmenopausal: 10.0-54.7 mIU/mL Children (<18 Years Old): LH reference ranges established on post-pubertal patient population. Reference range not established for pre-pubertal patients using this assay. For pre-pubertal patients, the [employer] LH, Pediatric assay is recommended (order code 15618). Specimen Blood Narrative Performed At Performing Lab [employer] [facility] [id number] [place] [address] Sixto Rodrigez MD, PhD, ANABELL Performing Organization Address [facility] Phone Number [employer] [place] [address] [place] [address] MR brain without & with IV contrast (06/19/2018 2:25 AM TELECOMMUNICATIONS LINESWORKER) Specimen Narrative Performed At FINAL REPORT [email or web address] [facility] MRI brain with and without contrast Comparison:None. 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 Specimen Blood Performing Organization Address [facility] Centercode Phone Number [address] [address] [phone] CENTER TSH/Free T4 If Indicated (06/18/2018 11:32 PM TELECOMMUNICATIONS LINESWORKER) TSH 0.41 0.35 - 4.94 uIU/mL [facility] Specimen Blood Performing Organization Address [facility] Centercofl Phone Number [address] [address] [phone] CENTER Urinalysis w/Microscopic + Reflex to Culture (06/18/2018 10:27 PM TELECOMMUNICATIONS LINESWORKER) Color, UA Yellow [facility] Clarity, UA Clear [facility] Specific [place], UA 1.011 1.001 - 1.035 [facility] pH, UA 5.0 5.0 - 8.0 [facility] Protein, UA Negative Negative [facility] Glucose, UA >1000 mg/dL (A) Negative [facility] Ketones, UA 20 mg/dL (A) Negative [facility] Bilirubin, UA Negative Negative [facility] Blood, UA Negative Negative [facility] Nitrite, UA Negative Negative [facility] Leukocytes, UA Negative Negative [facility] Urobilinogen, UA 0.2 0.2 - 1.0 mg/dL [facility] RBC, UA <1 /HPF [facility] WBC, UA <1 /HPF [facility] Squam Epithel, UA <1 /HPF [facility] Specimen Source [facility] Specimen Urine Performing Organization Address City/State/Zipcode Phone Number [facility] [address] [place] [address] [phone] CENTER after 02/06/2018 Insurance Payer Benefit Plan / Subscriber ID Type Phone Address Group BLUE CROSS/[employer]UE [employer] OS xxxxxxxxxxxx PPO [phone] [address] [employer]/PP[place] [address] (Home) [address] [place] [phone] Advance Directives Patient has advance care planning documents, and code status on file. For more information, please contact:[address] [phone] Code Status Date Activated Date Inactivated Comments Full Code 06/26/2018 1:38 PM This code status was determined by: Patient Full Code 06/18/2018 8:39 PM 06/26/2018 11:54 AM This code status was determined by: Patient
--- OUTSIDE RECORDS SUMMARY | 2019-02-07 19:44 | XMS REPORT ---
:1970 Author Organization [employer] Care Team Providers Name Role Phone [place], Neeru Provider Role Unavailable Allergies No Known [...]
--- OUTSIDE RECORDS SUMMARY | 2019-02-07 19:44 | XMS REPORT ---
:1970 Author Organization [facility] Address [address] [place] [address] Dr. Holbrook [address] [place] [id number] Care Team Providers Name Role Phone DAJUAN GEORGE Unavailable Unavailable MITCHELL DOBSON Unavailable Unavailable Problems This patient has no known problems. Allergies, Adverse Reactions, Alerts This patient has no known allergies or adverse reactions. Medications This patient has no known medications. Results Test Description Test Time Test Comments Text Results Atomic Results Result Comments TISSUE EXAM 2018-06-28 08:38:00 Surgical Pathology Report Case: [id number] Authorizing Provider: Alex Ruano MD Collected: 06/24/2018801 Ordering Location: [address] Received: 06/24/2018 0809 Service Pathologist: Chon Andino MD Specimens: A) - Tumor, pituitary tumor B) - Tumor, pituitary tumor A.PITUITARY GLAND, TRANSSPHENOIDAL 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 PITUITARY GLAND, TRANSSPHENOIDAL HYPOPHYSECTOMY:NULL CELL ADENOMAENTRAPPED ADENOHYPOPHYSIS Signing Pathologist Direct Phone Line: [phone] signed by Chon Andino MD on 06/28/2018 at 8:38 AMImmunoperoxidase stains performed on the second specimen show that the tumor has no staining for growth hormone, LH, FSH, TSH, prolactin, or ACTH. 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 The MIB-1 proliferation index is less than 1%. 17064 x 2; 80631; 33188; 14128 x 6; 88714Oblpdxpcn adenoma A. Pituitary tumor; B. Pituitary tumorA. [...] stains. Immunohistochemistry technical testing was performed at [facility], Pathology Laboratory where it was developed [...] 141 mg/dL 70-[address] [facility] [address] [place] [address] ovhn=3510) [facility] [address] POCT-GLUCOSE [id number] 12:06:00 Test Item Value Reference Range Comments POC-GLUCOSE METER (BEAKER) 217 mg/dL 70-110 TESTED AT [address] (test ttjb=3410) [facility] [address] BASIC METABOLIC [id number] 07:18:00 Test Item Value Reference Range Comments SODIUM (BEAKER) (test 139 meq/L 136-145 uopc=415) POTASSIUM (BEAKER) (test 4.1 meq/L 3.5-5.1 bynt=063) CHLORIDE (BEAKER) (test 105 meq/L 98-107 zkzn=293) CO2 (BEAKER) (test 28 meq/L 22-29 xnrj=770) BLOOD UREA NITROGEN 11 mg/dL 7-21 (BEAKER) (test vfzm=296) CREATININE (BEAKER) (test 0.69 mg/dL 0.57-1.25 oxco=302) GLUCOSE RANDOM (BEAKER) 163 mg/dL 70-105 (test wwct=901) CALCIUM (BEAKER) (test 8.6 mg/dL 8.4-10.2 osnq=682) EGFR (BEAKER) (test 91 mL/min/1.73 sq m ESTIMATED GFR IS NOT iats=9621) ACCURATE CREATININE CLEARANCE IN PREDICTING GLOMERULAR FILTRATION RATE. ESTIMATED GFR IS NOT APPLICABLE FOR DIALYSIS PATIENTS. CBC W/PLT COUNT & AUTO [id number] 06:49:00 Test Item Value Reference Range Comments WHITE BLOOD CELL COUNT (BEAKER) (test bwtn=622) 8.7 K/ L 3.5-10.5 RED BLOOD CELL COUNT (BEAKER) (test eiia=791) 4.82 M/ L 3.93-5.22 HEMOGLOBIN (BEAKER) (test hzuu=234) 13.2 GM/DL 11.2-15.7 HEMATOCRIT (BEAKER) (test htkn=092) 40.8 % 34.1-44.9 MEAN CORPUSCULAR VOLUME (BEAKER) (test nmyb=215) 84.6 fL 79.4-94.8 MEAN CORPUSCULAR HEMOGLOBIN (BEAKER) (test 27.4 pg 25.6-32.2 vvpj=250) MEAN CORPUSCULAR HEMOGLOBIN CONC (BEAKER) (test 32.4 GM/DL 32.2-35.5 ntzx=199) RED CELL DISTRIBUTION WIDTH (BEAKER) (test 13.2 % 11.7-14.4 ytik=880) PLATELET COUNT (BEAKER) (test izra=740) 233 K/CU MM 150-450 MEAN PLATELET VOLUME (BEAKER) (test mepu=774) 11.5 fL 9.4-12.3 NUCLEATED RED BLOOD CELLS (BEAKER) (test 0 /100 WBC 0-0 ovzm=741) NEUTROPHILS RELATIVE PERCENT (BEAKER) (test 65 % zxkx=626) LYMPHOCYTES RELATIVE PERCENT (BEAKER) (test 24 % vknz=712) MONOCYTES RELATIVE PERCENT (BEAKER) (test 8 % pgrw=990) EOSINOPHILS RELATIVE PERCENT (BEAKER) (test 2 % ykjt=721) BASOPHILS RELATIVE PERCENT (BEAKER) (test 0 % hesi=401) NEUTROPHILS ABSOLUTE COUNT (BEAKER) (test 5.65 K/ L 1.56-6.13 kcqb=557) LYMPHOCYTES ABSOLUTE COUNT (BEAKER) (test 2.07 K/ L 1.18-3.74 jysg=391) MONOCYTES ABSOLUTE COUNT (BEAKER) (test 0.70 K/ L 0.24-0.36 bqyx=982) EOSINOPHILS ABSOLUTE COUNT (BEAKER) (test 0.16 K/ L 0.04-0.36 wgit=292) BASOPHILS ABSOLUTE COUNT (BEAKER) (test 0.02 K/ L 0.01-0.08 ykfq=059) IMMATURE GRANULOCYTES-RELATIVE PERCENT (BEAKER) 1 % 0-1 (test vhie=0875) BASIC METABOLIC [id number] 23:52:00 Test Item Value Reference Range Comments SODIUM (BEAKER) (test 139 meq/L 136-145 ltbm=004) POTASSIUM (BEAKER) (test 4.0 meq/L 3.5-5.1 Specimen slightly paka=140) hemolyzed CHLORIDE (BEAKER) (test 103 meq/L 98-107 qxkn=319) CO2 (BEAKER) (test 28 meq/L 22-29 ziuo=918) BLOOD UREA NITROGEN 12 mg/dL 7-21 (BEAKER) (test zxrx=643) CREATININE (BEAKER) (test 0.72 mg/dL 0.57-1.25 Specimen slightly qbsn=129) hemolyzed GLUCOSE RANDOM (BEAKER) 193 mg/dL 70-105 (test bkkt=811) CALCIUM (BEAKER) (test 8.6 mg/dL 8.4-10.2 bznt=064) EGFR (BEAKER) (test 86 mL/min/1.73 sq m ESTIMATED GFR IS NOT bnvc=9310) ACCURATE CREATININE CLEARANCE IN PREDICTING GLOMERULAR FILTRATION RATE. ESTIMATED GFR IS NOT APPLICABLE FOR DIALYSIS PATIENTS. SODIUM, RANDOM [id number] 23:49:00 Test Item Value Reference Range Comments SODIUM URINE (BEAKER) (test went=805) < meq/L Reference Range: No NormalsCBC W/PLT COUNT & AUTO [id number] 23: 35:00 Test Item Value Reference Range Comments WHITE BLOOD CELL COUNT (BEAKER) (test xpab=622) 9.7 K/ L 3.5-10.5 RED BLOOD CELL COUNT (BEAKER) (test hnau=757) 4.46 M/ L 3.93-5.22 HEMOGLOBIN (BEAKER) (test uoim=883) 12.2 GM/DL 11.2-15.7 HEMATOCRIT (BEAKER) (test ohqv=903) 37.8 % 34.1-44.9 MEAN CORPUSCULAR VOLUME (BEAKER) (test lmfp=734) 84.8 fL 79.4-94.8 MEAN CORPUSCULAR HEMOGLOBIN (BEAKER) (test 27.4 pg 25.6-32.2 jfql=825) MEAN CORPUSCULAR HEMOGLOBIN CONC (BEAKER) (test 32.3 GM/DL 32.2-35.5 dhog=166) RED CELL DISTRIBUTION WIDTH (BEAKER) (test 13.0 % 11.7-14.4 tsdy=566) PLATELET COUNT (BEAKER) (test lend=315) 210 K/CU MM 150-450 MEAN PLATELET VOLUME (BEAKER) (test tkko=735) 11.4 fL 9.4-12.3 NUCLEATED RED BLOOD CELLS (BEAKER) (test 0 /100 WBC 0-0 impb=533) NEUTROPHILS RELATIVE PERCENT (BEAKER) (test 61 % sjid=748) LYMPHOCYTES RELATIVE PERCENT (BEAKER) (test 28 % qcng=576) MONOCYTES RELATIVE PERCENT (BEAKER) (test 8 % woet=424) EOSINOPHILS RELATIVE PERCENT (BEAKER) (test 2 % koxx=552) BASOPHILS RELATIVE PERCENT (BEAKER) (test 0 % ttse=510) NEUTROPHILS ABSOLUTE COUNT (BEAKER) (test 5.87 K/ L 1.56-6.13 bdbv=845) LYMPHOCYTES ABSOLUTE COUNT (BEAKER) (test 2.72 K/ L 1.18-3.74 ngln=724) MONOCYTES ABSOLUTE COUNT (BEAKER) (test 0.80 K/ L 0.24-0.36 pnwg=618) EOSINOPHILS ABSOLUTE COUNT (BEAKER) (test 0.22 K/ L 0.04-0.36 rhjl=604) BASOPHILS ABSOLUTE COUNT (BEAKER) (test 0.03 K/ L 0.01-0.08 emii=141) IMMATURE GRANULOCYTES-RELATIVE PERCENT (BEAKER) 1 % 0-1 (test nvxi=7097) CT, BRAIN, WITHOUT [id number] 22:57:00FINAL REPORT CT Head without contrast CLINICAL [...] Gamboa Verified Date/Time: 06/26/2018 22:57:28 [address] Location[address] POCT-GLUCOSE [id number] 21:07:00 Test Item Value Reference Range Comments POC-GLUCOSE METER (BEAKER) 211 mg/dL 70-110 TESTED AT [address] (test nqqt=9507) [facility] [address] BASIC METABOLIC [id number] 14:29:00 Test Item Value Reference Range Comments SODIUM (BEAKER) (test 137 meq/L 136-145 lcwy=295) POTASSIUM (BEAKER) (test 3.6 meq/L 3.5-5.1 aoyz=720) CHLORIDE (BEAKER) (test 100 meq/L 98-107 ruaw=626) CO2 (BEAKER) (test 32 meq/L 22-29 vshk=905) BLOOD UREA NITROGEN 12 mg/dL 7-21 (BEAKER) (test ljod=999) CREATININE (BEAKER) (test 0.71 mg/dL 0.57-1.25 rktk=716) GLUCOSE RANDOM (BEAKER) 182 mg/dL 70-105 (test iwbl=483) CALCIUM (BEAKER) (test 8.7 mg/dL 8.4-10.2 egdi=802) EGFR (BEAKER) (test 88 mL/min/1.73 sq m ESTIMATED GFR IS NOT sorh=7983) ACCURATE CREATININE CLEARANCE IN PREDICTING GLOMERULAR FILTRATION RATE. ESTIMATED GFR IS NOT APPLICABLE FOR DIALYSIS PATIENTS. CBC W/PLT COUNT & AUTO [id number] 14:25:00 Test Item Value Reference Range Comments WHITE BLOOD CELL COUNT (BEAKER) (test zrgb=414) 12.3 K/ L 3.5-10.5 RED BLOOD CELL COUNT (BEAKER) (test rfad=146) 4.76 M/ L 3.93-5.22 HEMOGLOBIN (BEAKER) (test nafp=872) 13.1 GM/DL 11.2-15.7 HEMATOCRIT (BEAKER) (test rnam=104) 40.6 % 34.1-44.9 MEAN CORPUSCULAR VOLUME (BEAKER) (test juqm=497) 85.3 fL 79.4-94.8 MEAN CORPUSCULAR HEMOGLOBIN (BEAKER) (test 27.5 pg 25.6-32.2 mjsf=841) MEAN CORPUSCULAR HEMOGLOBIN CONC (BEAKER) (test 32.3 GM/DL 32.2-35.5 hhov=177) RED CELL DISTRIBUTION WIDTH (BEAKER) (test 13.1 % 11.7-14.4 laus=328) PLATELET COUNT (BEAKER) (test idza=153) 254 K/CU MM 150-450 MEAN PLATELET VOLUME (BEAKER) (test afmb=226) 11.1 fL 9.4-12.3 NUCLEATED RED BLOOD CELLS (BEAKER) (test 0 /100 WBC 0-0 fbtm=649) NEUTROPHILS RELATIVE PERCENT (BEAKER) (test 68 % rvif=986) LYMPHOCYTES RELATIVE PERCENT (BEAKER) (test 24 % xiyj=917) MONOCYTES RELATIVE PERCENT (BEAKER) (test 6 % aqwr=556) EOSINOPHILS RELATIVE PERCENT (BEAKER) (test 1 % zxcw=642) BASOPHILS RELATIVE PERCENT (BEAKER) (test 0 % htrx=511) NEUTROPHILS ABSOLUTE COUNT (BEAKER) (test 8.42 K/ L 1.56-6.13 hxna=960) LYMPHOCYTES ABSOLUTE COUNT (BEAKER) (test 2.90 K/ L 1.18-3.74 czoh=749) MONOCYTES ABSOLUTE COUNT (BEAKER) (test 0.79 K/ L 0.24-0.36 arzh=983) EOSINOPHILS ABSOLUTE COUNT (BEAKER) (test 0.07 K/ L 0.04-0.36 qftl=140) BASOPHILS ABSOLUTE COUNT (BEAKER) (test 0.05 K/ L 0.01-0.08 nhfg=480) IMMATURE GRANULOCYTES-RELATIVE PERCENT (BEAKER) 1 % 0-1 (test nwxt=7069) POCT-GLUCOSE [id number] 13:38:00 Test Item Value Reference Range Comments POC-GLUCOSE METER (BEAKER) 219 mg/dL 70-110 TESTED AT [address] (test agfc=9446) [place] [id number] POCT-GLUCOSE [id number] 12:34:00 Test Item Value Reference Range Comments POC-GLUCOSE METER (BEAKER) 193 mg/dL 70-110 TESTED AT [address] (test shiy=9006) [place] [id number] POCT-GLUCOSE [id number] 16:17:00 Test Item Value Reference Range Comments POC-GLUCOSE METER (BEAKER) 244 mg/dL 70-110 TESTED AT [address] (test atny=8180) [place] [id number] POCT-GLUCOSE [id number] 12:08:00 Test Item Value Reference Range Comments POC-GLUCOSE METER (BEAKER) 229 mg/dL 70-110 TESTED AT [address] (test zuqf=3231) [place] [id number] POCT-GLUCOSE [id number] 08:27:00 Test Item Value Reference Range Comments POC-GLUCOSE METER (BEAKER) 280 mg/dL 70-110 TESTED AT [address] (test agyn=3033) [facility] [address] OSMOLALITY, [id number] 05:16:00 Test Item Value Reference Range Comments OSMOLALITY URINE (BEAKER) (test odwq=273) 340 mOsm/kg 40-1,400 SPECIFIC GRAVITY, [id number] 04:53:00 Test Item Value Reference Range Comments SPECIFIC GRAVITY UA (BEAKER) (test qdmv=286) 1.010 1.001-1.035 POCT-GLUCOSE [id number] 22:29:00 Test Item Value Reference Range Comments POC-GLUCOSE METER (BEAKER) 257 mg/dL 70-110 TESTED AT [address] (test zivc=4389) [place] [id number] BASIC METABOLIC [id number] 17:49:00 Test Item Value Reference Range Comments SODIUM (BEAKER) (test 137 meq/L 136-145 lsyx=570) POTASSIUM (BEAKER) (test 4.6 meq/L 3.5-5.1 jvxu=963) CHLORIDE (BEAKER) (test 102 meq/L 98-107 pxaf=866) CO2 (BEAKER) (test 26 meq/L 22-29 gokl=554) BLOOD UREA NITROGEN 14 mg/dL 7-21 (BEAKER) (test ekme=296) CREATININE (BEAKER) (test 0.78 mg/dL 0.57-1.25 cnxz=041) GLUCOSE RANDOM (BEAKER) 246 mg/dL 70-105 (test pyge=800) CALCIUM (BEAKER) (test 8.7 mg/dL 8.4-10.2 hueh=426) EGFR (BEAKER) (test 79 mL/min/1.73 sq m ESTIMATED GFR IS NOT mrvr=9259) ACCURATE CREATININE CLEARANCE IN PREDICTING GLOMERULAR FILTRATION RATE. ESTIMATED GFR IS NOT APPLICABLE FOR DIALYSIS PATIENTS. POCT-GLUCOSE [id number] 17:02:00 Test Item Value Reference Range Comments POC-GLUCOSE METER (BEAKER) 235 mg/dL 70-110 TESTED AT [address] (test hijl=7242) [place] [id number] POCT-GLUCOSE [id number] 12:06:00 Test Item Value Reference Range Comments POC-GLUCOSE METER (BEAKER) 249 mg/dL 70-110 TESTED AT [address] (test nqun=2694) [place] [address] POCT-GLUCOSE [id number] 09:40:00 Test Item Value Reference Range Comments POC-GLUCOSE METER (BEAKER) 278 mg/dL 70-110 TESTED AT [address] (test fctn=4629) [place] [address] BASIC METABOLIC [id number] 06:14:00 Test Item Value Reference Range Comments SODIUM (BEAKER) (test 141 meq/L 136-145 gjyg=324) POTASSIUM (BEAKER) (test 4.1 meq/L 3.5-5.1 sfnh=682) CHLORIDE (BEAKER) (test 104 meq/L 98-107 miuq=994) CO2 (BEAKER) (test 30 meq/L 22-29 wtyk=171) BLOOD UREA NITROGEN 14 mg/dL 7-21 (BEAKER) (test ijet=664) CREATININE (BEAKER) (test 0.70 mg/dL 0.57-1.25 zisg=221) GLUCOSE RANDOM (BEAKER) 146 mg/dL 70-105 (test pzem=937) CALCIUM (BEAKER) (test 9.4 mg/dL 8.4-10.2 tnuy=585) EGFR (BEAKER) (test 89 mL/min/1.73 sq m ESTIMATED GFR IS NOT pnfe=5055) ACCURATE CREATININE CLEARANCE IN PREDICTING GLOMERULAR FILTRATION RATE. ESTIMATED GFR IS NOT APPLICABLE FOR DIALYSIS PATIENTS. [id number] 06:03:00 Test Item Value Reference Range Comments PROTIME (BEAKER) (test evbk=354) 13.8 seconds 11.7-14.7 INR (BEAKER) (test pyqh=489) 1.1 <=5.9 PARTIAL THROMBOPLASTIN TIME (BEAKER) (test 32.0 seconds 22.5-36.0 nsie=407) RECOMMENDED COUMADIN/WARFARIN INR THERAPY RANGESSTANDARD DOSE: 2.0 - 3.0 Includes: PROPHYLAXIS forvenous thrombosis, systemic embolization; TREATMENT for venous thrombosis and/or pulmonary embolus.HIGH RISK: Target INR is 2.5-3.5 for patients with mechanical heart valves. SCREEN, [id number] 05: 59:00 Test Item Value Reference Range Comments TEST URINE (BEAKER) (test grxv=665) Negative POCT-GLUCOSE [id number] 05:46:00 Test Item Value Reference Range Comments POC-GLUCOSE METER (BEAKER) 140 mg/dL 70-[address] [facility] [address] [facility] (test ppsx=0260) [facility] [address] CBC W/PLT COUNT & AUTO [id number] 05:46:00 Test Item Value Reference Range Comments WHITE BLOOD CELL COUNT (BEAKER) (test talp=961) 9.6 K/ L 3.5-10.5 RED BLOOD CELL COUNT (BEAKER) (test vcay=170) 5.00 M/ L 3.93-5.22 HEMOGLOBIN (BEAKER) (test mnnl=959) 14.0 GM/DL 11.2-15.7 HEMATOCRIT (BEAKER) (test xwrv=479) 42.1 % 34.1-44.9 MEAN CORPUSCULAR VOLUME (BEAKER) (test opyl=573) 84.2 fL 79.4-94.8 MEAN CORPUSCULAR HEMOGLOBIN (BEAKER) (test 28.0 pg 25.6-32.2 xiwi=823) MEAN CORPUSCULAR HEMOGLOBIN CONC (BEAKER) (test 33.3 GM/DL 32.2-35.5 pdfy=397) RED CELL DISTRIBUTION WIDTH (BEAKER) (test 13.0 % 11.7-14.4 ckom=383) PLATELET COUNT (BEAKER) (test daov=151) 227 K/CU MM 150-450 MEAN PLATELET VOLUME (BEAKER) (test nbxd=548) 11.8 fL 9.4-12.3 NUCLEATED RED BLOOD CELLS (BEAKER) (test 0 /100 WBC 0-0 ocrx=662) NEUTROPHILS RELATIVE PERCENT (BEAKER) (test 52 % lsgm=175) LYMPHOCYTES RELATIVE PERCENT (BEAKER) (test 38 % zjdo=438) MONOCYTES RELATIVE PERCENT (BEAKER) (test 6 % suxk=597) EOSINOPHILS RELATIVE PERCENT (BEAKER) (test 3 % qznh=247) BASOPHILS RELATIVE PERCENT (BEAKER) (test 1 % ygsh=978) NEUTROPHILS ABSOLUTE COUNT (BEAKER) (test 5.03 K/ L 1.56-6.13 gmbu=694) LYMPHOCYTES ABSOLUTE COUNT (BEAKER) (test 3.62 K/ L 1.18-3.74 uzwy=478) MONOCYTES ABSOLUTE COUNT (BEAKER) (test 0.62 K/ L 0.24-0.36 iqdf=743) EOSINOPHILS ABSOLUTE COUNT (BEAKER) (test 0.27 K/ L 0.04-0.36 pkvg=209) BASOPHILS ABSOLUTE COUNT (BEAKER) (test 0.05 K/ L 0.01-0.08 ntyu=141) IMMATURE GRANULOCYTES-RELATIVE PERCENT (BEAKER) 1 % 0-1 (test kvzz=1591) POCT-GLUCOSE [id number] 21:27:00 Test Item Value Reference Range Comments POC-GLUCOSE METER (BEAKER) 223 mg/dL 70-110 TESTED AT [address] (test btrn=5813) [place] [id number] POCT-GLUCOSE [id number] 17:26:00 Test Item Value Reference Range Comments POC-GLUCOSE METER (BEAKER) 223 mg/dL 70-110 TESTED AT [address] (test nxim=2488) [place] [address] BASIC METABOLIC [id number] 16:43:00 Test Item Value Reference Range Comments SODIUM (BEAKER) (test 139 meq/L 136-145 rhic=508) POTASSIUM (BEAKER) (test 4.5 meq/L 3.5-5.1 Specimen slightly cvfb=416) hemolyzed CHLORIDE (BEAKER) (test 102 meq/L 98-107 nike=028) CO2 (BEAKER) (test 29 meq/L 22-29 xhti=097) BLOOD UREA NITROGEN 16 mg/dL 7-21 (BEAKER) (test nvus=986) CREATININE (BEAKER) (test 0.76 mg/dL 0.57-1.25 Specimen slightly caqv=835) hemolyzed GLUCOSE RANDOM (BEAKER) 217 mg/dL 70-105 (test ysmi=183) CALCIUM (BEAKER) (test 9.6 mg/dL 8.4-10.2 lmzk=576) EGFR (BEAKER) (test 81 mL/min/1.73 sq m ESTIMATED GFR IS NOT qfqr=7479) ACCURATE CREATININE CLEARANCE IN PREDICTING GLOMERULAR FILTRATION RATE. ESTIMATED GFR IS NOT APPLICABLE FOR DIALYSIS PATIENTS. POCT-GLUCOSE [id number] 09:06:00 Test Item Value Reference Range Comments POC-GLUCOSE METER (BEAKER) 265 mg/dL 70-110 TESTED AT [address] (test onev=7603) [place] [id number] POCT-GLUCOSE [id number] 00:22:00 Test Item Value Reference Range Comments POC-GLUCOSE METER (BEAKER) 210 mg/dL 70-110 TESTED AT [address] (test lwqg=8865) [place] [address] POCT-GLUCOSE [id number] 20:27:00 Test Item Value Reference Range Comments POC-GLUCOSE METER (BEAKER) 235 mg/dL 70-110 TESTED AT [address] (test cdzd=4912) [place] [id number] POCT-GLUCOSE [id number] 17:10:00 Test Item Value Reference Range Comments POC-GLUCOSE METER (BEAKER) 264 mg/dL 70-110 TESTED AT [address] (test cwff=0434) [place] [id number] POCT-GLUCOSE [id number] 16:00:00 Test Item Value Reference Range Comments POC-GLUCOSE METER (BEAKER) 242 mg/dL 70-110 TESTED AT [address] (test qnim=8500) [place] [id number] POCT-GLUCOSE [id number] 08:54:00 Test Item Value Reference Range Comments POC-GLUCOSE METER (BEAKER) 224 mg/dL 70-110 TESTED AT [address] (test kpob=8968) [place] [id number] POCT-GLUCOSE [id number] 21:30:00 Test Item Value Reference Range Comments POC-GLUCOSE METER (BEAKER) 254 mg/dL 70-110 TESTED AT [address] (test lmte=5477) [place] [id number] POCT-GLUCOSE [id number] 17:23:00 Test Item Value Reference Range Comments POC-GLUCOSE METER (BEAKER) 193 mg/dL 70-110 TESTED AT [address] (test yqfi=4009) [place] [address] POCT-GLUCOSE [id number] 11:53:00 Test Item Value Reference Range Comments POC-GLUCOSE METER (BEAKER) 179 mg/dL 70-110 TESTED AT [address] (test fcxp=7584) [place] [address] [id number] 10:15:00 Test Item Value Reference Range Comments CORTISOL, TOTAL (BEAKER) (test gqig=4239) 4.7 ug/dL 3.7-19.4 POCT-GLUCOSE [id number] 08:07:00 Test Item Value Reference Range Comments POC-GLUCOSE METER (BEAKER) 184 mg/dL 70-110 TESTED AT [address] (test ryns=0573) [place] [address] CT, BRAIN, WITHOUT [id number] 22:07:00FINAL REPORT CT Head without contrast CLINICAL [...] [place]oa Verified Date/Time: 06/20/2018 22:07:25 Reading Location: [address] Transitional Reading Room POCT-GLUCOSE [id number] 21:00:00 Test Item Value Reference Range Comments POC-GLUCOSE METER (BEAKER) 227 mg/dL 70-110 TESTED AT [address] (test bdnk=7884) [place] [address] POCT-GLUCOSE [id number] 16:57:00 Test Item Value Reference Range Comments POC-GLUCOSE METER (BEAKER) 216 mg/dL 70-110 TESTED AT [address] (test dchm=3233) [place] [id number] POCT-GLUCOSE [id number] 13:11:00 Test Item Value Reference Range Comments POC-GLUCOSE METER (BEAKER) 198 mg/dL 70-110 TESTED AT [address] (test pikf=6796) [place] [id number] POCT-GLUCOSE [id number] 07:47:00 Test Item Value Reference Range Comments POC-GLUCOSE METER (BEAKER) 213 mg/dL 70-110 TESTED AT [address] (test aywc=6526) [place] [address] BASIC METABOLIC [id number] 06:57:00 Test Item Value Reference Range Comments SODIUM (BEAKER) (test 138 meq/L 136-145 oias=583) POTASSIUM (BEAKER) (test 3.9 meq/L 3.5-5.1 hjgi=895) CHLORIDE (BEAKER) (test 105 meq/L 98-107 fahn=349) CO2 (BEAKER) (test 24 meq/L 22-29 riyp=865) BLOOD UREA NITROGEN 12 mg/dL 7-21 (BEAKER) (test eufa=381) CREATININE (BEAKER) (test 0.73 mg/dL 0.57-1.25 rnwq=645) GLUCOSE RANDOM (BEAKER) 192 mg/dL 70-105 (test lzyi=134) CALCIUM (BEAKER) (test 8.8 mg/dL 8.4-10.2 xlsa=899) EGFR (BEAKER) (test 85 mL/min/1.73 sq m ESTIMATED GFR IS NOT yrcp=8501) ACCURATE CREATININE CLEARANCE IN PREDICTING GLOMERULAR FILTRATION RATE. ESTIMATED GFR IS NOT APPLICABLE FOR DIALYSIS PATIENTS. POCT-GLUCOSE [id number] 05:24:00 Test Item Value Reference Range Comments POC-GLUCOSE METER (BEAKER) 192 mg/dL 70-[address] [facility] [address] [facility] (test rria=9284) [facility] [address], [place]ANGIO [id number] 01:03:00FINAL REPORT CLINICAL HISTORY: Stroke TECHNIQUE: Initially, [...] Verified Date/ Time: 06/20/2018 01:03:44 Reading Location: [address] Transitional Reading Room [facility], [place], [id number] 01:03:00FINAL REPORT CLINICAL HISTORY: Stroke TECHNIQUE: Initially, [...] Verified Date/ Time: 06/20/2018 01:03:44 Reading Location: [address] Reading Room POCT-GLUCOSE [id number] 00:40:00 Test Item Value Reference Range Comments POC-GLUCOSE METER (BEAKER) 283 mg/dL 70-110 TESTED AT [address] (test shlv=7623) [facility] [address] POCT-GLUCOSE [id number] 21:21:00 Test Item Value Reference Range Comments POC-GLUCOSE METER (BEAKER) 343 mg/dL 70-110 TESTED AT [address] (test swzf=3293) [facility] [address] SCREEN, [id number] 18:52:00 Test Item Value Reference Range Comments TEST URINE (BEAKER) (test xkxr=980) Negative POCT-GLUCOSE [id number] 17:17:00 Test Item Value Reference Range Comments POC-GLUCOSE METER (BEAKER) 287 mg/dL 70-[address] [facility] [address] [facility] (test vflf=2546) [facility] [address] [id number] 15:59:00 Test Item Value Reference Range Comments RPR SCREEN (BEAKER) (test wuob=935) Nonreactive Nonreactive POCT-GLUCOSE [id number] 15:07:00 Test Item Value Reference Range Comments POC-GLUCOSE METER (BEAKER) 323 mg/dL 70-110 TESTED AT [address] (test cbgm=7924) [place] [id number] T4, [id number] 13:11:00 Test Item Value Reference Range Comments FREE T4 (BEAKER) (test yfnm=358) 0.89 ng/dL 0.70-1.48 HIV-1 ANTIGEN WITH HIV-1/2 [id number] 13:11:00 Test Item Value Reference Range Comments HIV-1 ANTIGEN WITH HIV 1\\T\\2 ANTIBODY (2) Nonreactive Nonreactive (BEAKER) (test ukhh=6432) RAPID DRUG SCREEN, [id number] 12:47:00 Test Item Value Reference Range Comments BARBITURATE URINE (BEAKER) (test liiy=096) Negative Negative BENZODIAZEPINE SCREEN URINE (BEAKER) (test Negative Negative tzmg=389) COCAINE (METAB.) SCREEN (BEAKER) (test veny=4933) Negative Negative METHADONE SCREEN (BEAKER) (test tibo=5277) Negative Negative OPIATE SCREEN URINE (BEAKER) (test aucd=953) Negative Negative CANNABINOID SCREEN URINE (BEAKER) (test uona=759) Negative Negative AMPH/METHAMPH SCREEN (BEAKER) (test wiyr=6107) Negative Negative PHENCYCLIDINE SCREEN URINE (BEAKER) (test rzup=533) Negative Negative OXYCODONE SCREEN URINE (BEAKER) (test wxba=5619) Negative Negative DRUG CUTOFF CONC.Cocaine 300 ng/mL Cannabinoid 50 ng/mL Benzodiazepine 200 ng/mLBarbiturate 200 ng/ mLPhencyclidine 25 ng/mLOpiate 300 ng/mLMethadone 300 ng/mLAmphetamine/ 1000 ng/mL MethamphetamineOxycodone 300 ng/mLThis assay provides an unconfirmed qualitative test result for the clinical management of patients in emergency situations. Chain of custody not maintained. Some hovh-lbh-tfhazdt medications, as well as adulterants, may cause inaccurate results. Clinical correlation should be applied. A more comprehensive drug screen or confirmation of a detected drug may be performed upon request.POCT-GLUCOSE [id number] 12:37:00 Test Item Value Reference Range Comments POC-GLUCOSE METER (BEAKER) 292 mg/dL 70-[address] [facility] [address] [facility] (test esxy=1827) [facility] [address] HEMOGLOBIN [id number] 12:35:00 Test Item Value Reference Range Comments HEMOGLOBIN A1C (BEAKER) (test mhmi=083) 7.9 % 4.3-6.1 OSMOLALITY, [id number] 12:34:00 Test Item Value Reference Range Comments OSMOLALITY, SERUM (BEAKER) (test chea=963) 310 mOsm/kg 275-295 C-REACTIVE [id number] 12:28:00 Test Item Value Reference Range Comments C-REACTIVE PROTEIN (BEAKER) (test jyho=299) 0.81 mg/dL 0.00-0.50 OSMOLALITY, [id number] 12:22:00 Test Item Value Reference Range Comments OSMOLALITY URINE (BEAKER) (test fupq=976) 247 mOsm/kg 40-1,400 CBC W/PLT COUNT & AUTO [id number] 12:14:00 Test Item Value Reference Range Comments WHITE BLOOD CELL COUNT (BEAKER) (test ipeu=702) 15.1 K/ L 3.5-10.5 RED BLOOD CELL COUNT (BEAKER) (test ecza=596) 5.15 M/ L 3.93-5.22 HEMOGLOBIN (BEAKER) (test rtts=258) 14.1 GM/DL 11.2-15.7 HEMATOCRIT (BEAKER) (test eojl=790) 42.3 % 34.1-44.9 MEAN CORPUSCULAR VOLUME (BEAKER) (test btji=645) 82.1 fL 79.4-94.8 MEAN CORPUSCULAR HEMOGLOBIN (BEAKER) (test 27.4 pg 25.6-32.2 ibdv=056) MEAN CORPUSCULAR HEMOGLOBIN CONC (BEAKER) (test 33.3 GM/DL 32.2-35.5 jsrw=165) RED CELL DISTRIBUTION WIDTH (BEAKER) (test 12.9 % 11.7-14.4 zvnd=684) PLATELET COUNT (BEAKER) (test icse=773) 278 K/CU MM 150-450 MEAN PLATELET VOLUME (BEAKER) (test gapa=248) 11.5 fL 9.4-12.3 NUCLEATED RED BLOOD CELLS (BEAKER) (test 0 /100 WBC 0-0 zuqd=627) NEUTROPHILS RELATIVE PERCENT (BEAKER) (test 87 % srde=568) LYMPHOCYTES RELATIVE PERCENT (BEAKER) (test 10 % cojq=572) MONOCYTES RELATIVE PERCENT (BEAKER) (test 3 % hdpk=162) EOSINOPHILS RELATIVE PERCENT (BEAKER) (test 0 % dkgf=851) BASOPHILS RELATIVE PERCENT (BEAKER) (test 0 % iycl=717) NEUTROPHILS ABSOLUTE COUNT (BEAKER) (test 13.06 K/ L 1.56-6.13 egux=634) LYMPHOCYTES ABSOLUTE COUNT (BEAKER) (test 1.51 K/ L 1.18-3.74 iwti=866) MONOCYTES ABSOLUTE COUNT (BEAKER) (test 0.38 K/ L 0.24-0.36 cbtw=256) EOSINOPHILS ABSOLUTE COUNT (BEAKER) (test 0.00 K/ L 0.04-0.36 degy=045) BASOPHILS ABSOLUTE COUNT (BEAKER) (test 0.02 K/ L 0.01-0.08 riuk=953) IMMATURE GRANULOCYTES-RELATIVE PERCENT (BEAKER) 1 % 0-1 (test fqgw=5797) POCT-GLUCOSE [id number] 10:30:00 Test Item Value Reference Range Comments POC-GLUCOSE METER (BEAKER) 341 mg/dL 70-110 TESTED AT [address] (test mzah=7544) [facility] [address] [id number] 06:17:00 Test Item Value Reference Range Comments PROLACTIN (BEAKER) (test hlfp=171) 23.34 ng/mL 5.18-26.53 POCT-GLUCOSE [id number] 05:55:00 Test Item Value Reference Range Comments POC-GLUCOSE METER (BEAKER) 285 mg/dL 70-110 TESTED AT [address] (test lqtw=2147) [facility] [address] MR, BRAIN, [id number] 02:25:00Pituitary protocolCr 0.6FINAL REPORT MRI brain with and without contrast Comparison: None. 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 Discussion: Multiplanar MR imaging of the brain and sella was provided app-pgj-huoc IV gadolinium administration using T1, T2, FLAIR, [...] MDReport Verified Date/Time: 06/19/2018 02:25:15 Reading Location: [address] Body Reading Room TSH/FREE T4 IF [id number] 00:26:00 Test Item Value Reference Range Comments THYROID STIMULATING HORMONE (BEAKER) (test 0.41 uIU/mL 0.35-4.94 wiyf=884) BASIC METABOLIC [id number] 00:07:00 Test Item Value Reference Range Comments SODIUM (BEAKER) (test 136 meq/L 136-145 beuh=983) POTASSIUM (BEAKER) (test 4.0 meq/L 3.5-5.1 qitx=027) CHLORIDE (BEAKER) (test 103 meq/L 98-107 afcz=574) CO2 (BEAKER) (test 20 meq/L 22-29 fivh=920) BLOOD UREA NITROGEN 11 mg/dL 7-21 (BEAKER) (test fdka=452) CREATININE (BEAKER) (test 0.84 mg/dL 0.57-1.25 gaqs=118) GLUCOSE RANDOM (BEAKER) 357 mg/dL 70-105 (test koqy=641) CALCIUM (BEAKER) (test 9.0 mg/dL 8.4-10.2 yqho=851) EGFR (BEAKER) (test 72 mL/min/1.73 sq m ESTIMATED GFR IS NOT uoxx=0043) ACCURATE CREATININE CLEARANCE IN PREDICTING GLOMERULAR FILTRATION RATE. ESTIMATED GFR IS NOT APPLICABLE FOR DIALYSIS PATIENTS. URINALYSIS W/ REFLEX URINE [id number] 23:13:00 Test Item Value Reference Range Comments COLOR (BEAKER) (test xsix=597) Yellow CLARITY (BEAKER) (test kran=049) Clear SPECIFIC GRAVITY UA (BEAKER) (test eols=260) 1.011 1.001-1.035 PH UA (BEAKER) (test shcs=999) 5.0 5.0-8.0 PROTEIN UA (BEAKER) (test qxao=483) Negative Negative GLUCOSE UA (BEAKER) (test kalj=797) >1000 mg/dL Negative KETONES UA (BEAKER) (test hbzc=934) 20 mg/dL Negative BILIRUBIN UA (BEAKER) (test habw=973) Negative Negative BLOOD UA (BEAKER) (test korp=064) Negative Negative NITRITE UA (BEAKER) (test giwd=713) Negative Negative LEUKOCYTE ESTERASE UA (BEAKER) (test acxk=316) Negative Negative UROBILINOGEN UA (BEAKER) (test csho=161) 0.2 mg/dL 0.2-1.0 RBC UA (BEAKER) (test crxl=967) < /HPF WBC UA (BEAKER) (test yjgy=716) < /HPF SQUAMOUS EPITHELIAL (BEAKER) (test brkc=182) < /HPF SOURCE(BEAKER) (test bwrz=4242)
--- OUTSIDE RECORDS SUMMARY | 2019-02-07 19:44 | XMS REPORT ---
[...] Status Dosage System Date Date Amlodipine ND 06635826335 10 MG Orally Active 1 tablet Besylate Once a day MetFORMIN HCl ER ND 97154348216 750 MG Orally Active 1 tablet Once a day with evening meal Levothyroxine ND 53010800759 88 MCG Oral Active TAKE 1 Sodium TABLET BY MOUTH EVERY MORNING Hydrocortisone ND 41984387625 10 MG Orally Active 1 tablet every 12 hrs with food or milk Losartan ND 33217981549 50 MG Orally Active 1 tablet Potassium Once a day GlyBURIDE [facility] [address]-36 5 MG Orally Active 1/2 tablet BID with breakfast or the first main meal of the day Trulicity [facility] 35658211887 0.75mg/0.5ml October Active one SQ once a week , , injection 2018 2018 Fluconazole [facility] 88305031854 150 MG Orally October Active 1 tablet Once a day 2018 2019 Results Name Result Date Reference Range Unit Abnormality Flag HEMOGLOBIN A1C ----A1C 9.8 [id number] Summary Purpose eClinicalWorks Submission
--- OUTSIDE RECORDS SUMMARY | 2019-02-07 19:44 | XMS REPORT ---
[...] End Status Dosage System Date Date Diflucan [facility] 10125293406 150 MG Orally Feb 20Feb Active 1 tablet Once a day 2017 Nitrofurantoin ND 79891898094 100 MG Orally Feb 20Feb Active 1 capsule Macrocrystal BID 2017 12, with food 2018 or milk GlyBURIDE ND 01208230704 5 MG Orally January 21, Active 1 tablet Once a day 2017 with breakfast or the first main meal of the day Levothyroxine ND 33406993167 88 MCG Oral Active TAKE 1 Sodium TABLET BY MOUTH EVERY MORNING Losartan ND 46513420630 50-12.5 MG February 12, Active 1 tablet Potassium-HCTZ Orally Once a 2018 day Valsartan-Hydroch ND 67537479963 80-12.5 MG Oral Active TAKE 1 lorothiazide TABLET BY MOUTH EVERY DAY Results Name Result Date Reference Range Unit Abnormality Flag THINPREP TIS PAP AND HPV mRNA E6/E7, CHLAMYDIA/N.GONORRHOEAE URINALYSIS AUTO W/O SCOPE (25013) ----PROTEIN N [id number] ----pH 5.5 20180220 ----NIT P [id number] ----CONCEPCION 1+ 20180220 ----URO 1.0 20180220 ----SPECIFIC GRAVITY 1.015 20180220 ----BLO TR [id number] ----BILIRUBIN N 20180220 ----KETONES N [id number] ----GLUCOSE N [id number] Summary Purpose eClinicalWorks Submission
--- OUTSIDE RECORDS SUMMARY | 2019-02-07 19:44 | XMS REPORT ---
[...] Date Date Hydrochlorothiazide [facility] 71232730016 12.5 MG Orally Jun 07, Active 1 tablet Once a day 2018 in the morning Levothyroxine Sodium ND 66997768730 88 MCG Oral Active TAKE 1 TABLET BY MOUTH EVERY MORNING Metformin HCl [facility] [address]-40 500 MG Orally Active 1 1/2 bid tablets with a meal Amlodipine Besylate ND 14326917649 10 MG Orally Active 1 tablet Once a day Hydrocortisone ND 04199928543 10 MG Orally Active 1 tablet every 12 hrs with food or milk Losartan [facility] 18855175396 50-12.5 MG Active 1 tablet Potassium-HCTZ Orally Once a day GlyBURIDE [facility] [address]-19 5 MG Orally Active 1/2 tablet BID with breakfast or the first main meal of the day Losartan Potassium [facility] 11527832567 50 MG Orally Active 1 tablet Once a day Results No Known Results Summary Purpose eClinicalWorks Submission
--- OUTSIDE RECORDS SUMMARY | 2019-02-07 19:44 | XMS REPORT ---
[...] Status Dosage System Date Date Atorvastatin Calcium [facility] 63043359135 10 MG Oral Active TAKE 1 TABLET BY MOUTH AT BEDTIME. ProAir HFA [facility] 66949539904 108 (90 Base) Active USE 1-2 MCG/ACT PUFFS BY Inhalation MOUTH EVERY 4-6 HOURS Levothyroxine Sodium ND 80370955086 88 MCG Oral Active TAKE 1 TABLET BY MOUTH EVERY MORNING Valsartan-Hydrochlor ND 47148372423 80-12.5 MG Active TAKE 1 othiazide Oral TABLET BY MOUTH EVERY DAY Benzonatate ND 04203469834 200 MG Oral Active TAKE ONE CAPSULE BY MOUTH 3 TIMES A DAY NEEDED FOR COUGH MethylPREDNISolone ND 57270715873 4 MG Oral Active TAKE 6 TABLETS ON DAY 1 DIRECTED ON PACKAGE AND DECREASE BY 1 TAB EACH DAY FOR A TOTAL OF 6 DAYS GlyBURIDE ND 31309749354 5 MG Orally Iraida Active 1 tablet Once a day 2017 breakfast or the first main meal of the day MetFORMIN HCl ER ND 74814653897 750 MG Oral Active TAKE 1 TABLET BY MOUTH 2 TIMES DAILY BEFORE BREAKFAST AND DINNER. Results No Known Results Summary Purpose eClinicalWorks Submission
--- OUTSIDE RECORDS SUMMARY | 2019-02-07 19:44 | XMS REPORT ---
[...] End Date Status Dosage System Date Losartan [facility] 94793598922 50-12.5 MG February 12, Active 1 tablet Potassium-HCTZ Orally Once a 2017 day Results No Known Results Summary Purpose eClinicalWorks Submission
--- OUTSIDE RECORDS SUMMARY | 2019-02-07 19:44 | XMS REPORT ---
[...] End Date Status Dosage System Date Losartan [facility] 92431073767 50-12.5 MG Active 1 tablet Potassium-HCTZ Orally Once a day Results No Known Results Summary Purpose eClinicalWorks Submission
--- OUTSIDE RECORDS SUMMARY | 2019-02-07 19:45 | XMS REPORT ---
[...] Condition Code Onset Dates Condition Status Problem Hypothyroidism E03.9 Active Problem Hypertension I10 Active Problem Anxiety F41.9 Active Assessment Hypertension I10 Active Assessment Dental abscess K04.7 Active Assessment Type 2 diabetes mellitus without E11.9 Active complication, without long-term current use of insulin Problem Seasonal allergic rhinitis due to J30.1 Active pollen Problem Fatty liver K76.0 Active Problem Dental abscess K04.7 Active Problem Allergic rhinitis, unspecified J30.9 Active Problem Hyperlipidemia E78.5 Active Problem Type 2 diabetes mellitus without E11.9 Active complication, without long-term current use of insulin Problem Migraines G43.909 Active Medications Medication Code Code Instructions Start End Status Dosage System Date Date Losartan ND 74759420531 50 MG Orally Active 1 tablet Potassium Once a day Levothyroxine ND 70964281390 88 MCG Oral Active TAKE 1 Sodium TABLET BY MOUTH EVERY MORNING Amlodipine ND 81513742056 10 MG Orally Active 1 tablet Besylate Once a day Amoxicillin ND 84672580742 500 MG Orally January 30January Active 1 capsule Twice a day 2018 MetFORMIN HCl ER ND 66243355389 750 MG Orally Active 1 tablet Once a day with evening meal Hydrocortisone ND 96574765331 10 MG Orally Active 1 tablet every 12 hrs with food or milk GlyBURIDE ND 82314385709 5 MG Orally BID Active 2 tabs bid with meal Results Name Result Date Reference Range Unit Abnormality Flag HEMOGLOBIN A1C ----A1C 10.5 [id number] Summary Purpose eClinicalWorks Submission
--- NOTE | 2019-02-07 20:46 | RAD REPORT ---
EXAM DESCRIPTION: CT - Head Brain Wo Cont - 02/07/2019 8:35 pm CLINICAL HISTORY: HEADACHE Headache, hypertension COMPARISON: Head Brain Wo Cont dated 12/08/2018; Head Brain Wo Cont dated 06/26/2018 TECHNIQUE: All CT scans are performed using dose optimization technique as appropriate and may inclu de automated exposure control or mA/KV adjustment according to patient size. FINDINGS: No intracranial hemorrhage, hydrocephalus or extra-axial fluid collection.No areas of brai n edema or evidence of midline shift. The paranasal sinuses and mastoids are clear. The calvarium is intact. IMPRESSION: No acute intracranial abnormality.
[2019-02-07] MEDS ORDERED: TRAMADOL HCL 50 MG TAB ONE (20:54)
[2019-02-07 21:00] LABS: Absolute Lymphocytes (CBC) 2.4 K/uL (0.7-4.9); Basophils % 1.3 % (0-1.3); Eosinophils % 1.9 % (0-4.4); Hematocrit 44.8 % (36.0-45.0); Lymphocytes % 24.9 % (15.3-44.8); RBC Red Blood Cell Count 5.61 M/uL (3.86-4.86)
[2019-02-07 21:14] LABS: Potassium 3.9 mmol/L (3.5-5.1)
--- NOTE | 2019-02-07 21:43 | EDPHYS ---
Physician Documentation [facility] Name: Chantal Stout Age: 48 yrs Sex: Female : 1970 Arrival Date: 02/07/2019 Time: 19:42 Bed 19 Private MD: JOSE MAR ED Physician Kirk Escudero HPI: 02/07 20:21 This 48 yrs old Female presents to ER via Ambulatory with complaints of High kdr Blood Pressure, PRESSURE IN HEAD. 20:22 The patient c/o frontal head pressure that started this evening and states she feels kdr like her BP is elevated. She has not had this type of feeling before. She has had a history of migraines many years ago but they were not like this. She has no other significant associated s/s. Onset: The symptoms/episode began/occurred today. Severity of symptoms: At their worst the symptoms were mild in the emergency department the symptoms are unchanged. The patient has not experienced similar symptoms in the past. The patient has not recently seen a physician. 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: 20:00 LMP 2009, menopause as verbalized by the patient rr5 Historical: - Allergies: 20:13 Bactrim; rr5 20:13 Cephalexin; rr5 20:13 Codeine; rr5 20:13 Iodine; rr5 20:13 Levaquin; rr5 20:13 Sulfa (Sulfonamide Antibiotics); rr5 - Home Meds: 20:13 Trulicity subcutaneous subcutaneous [Active]; amlodipine 10 mg tab 1 tab once daily rr5 [Active]; glyburide 5 mg Oral tab 1 tab once daily [Active]; metformin 750 mg Oral Tb24 1 tab twice a day [Active]; omeprazole 20 mg Oral cpDR 1 cap once daily [Active]; losartan 50 mg Oral tab 1 tab once daily [Active]; hydrocortisone 10 mg Oral tab 1 tab 2 times per day [Active]; levothyroxine 75 mcg tab 1 tab once daily [Active]; - PMHx: 20:13 Anemia; Asthma; Diabetes - NIDDM; Hypertension; Hypothyroidism; pituitary tumor- rr5 surgically removed Jun 24; - PSHx: 20:13 Tonsillectomy; D \T\ C; tumor in the cervix; rr5 - Immunization history:: Adult Immunizations up to date. - Social history:: Smoking status: Patient/guardian denies using tobacco, Patient/guardian denies using alcohol, street drugs. - Ebola Screening: : Patient negative for fever greater than or equal to 101.5 degrees Fahrenheit, and additional compatible Ebola Virus Disease symptoms Patient denies exposure to infectious person Patient denies travel to an Ebola-affected area in the 21 days before illness onset. ROS: 20:22 Constitutional: Negative for fever, chills, and weight loss, Eyes: Negative for injury, kdr pain, redness, and discharge, ENT: Negative for injury, pain, and discharge, Neck: Negative for injury, pain, and swelling, Cardiovascular: Negative for chest pain, palpitations, and edema, Respiratory: Negative for shortness of breath, cough, wheezing, and pleuritic chest pain, Abdomen/GI: Negative for abdominal pain, nausea, vomiting, diarrhea, and constipation, Back: Negative for injury and pain, : Negative for injury, bleeding, discharge, and swelling, MS/Extremity: Negative for injury and deformity, Skin: Negative for injury, rash, and discoloration, Psych: Negative for depression, anxiety, suicide ideation, homicidal ideation, and hallucinations, Allergy/Immunology: Negative for hives, rash, and allergies, Endocrine: Negative for neck swelling, polydipsia, polyuria, polyphagia, and marked weight changes, Hematologic/Lymphatic: Negative for swollen nodes, abnormal bleeding, and unusual bruising. 20:22 Neuro: Positive for headache, Very mild vision changes. Exam: 20:22 Constitutional: This is a well developed, well nourished patient who is awake, alert, kdr and in no acute distress. Head/Face: Normocephalic, atraumatic. Eyes: Pupils equal round and reactive to light, extra-ocular motions intact. Lids and lashes normal. Conjunctiva and sclera are non-icteric and not injected. Cornea within normal limits. Periorbital areas with no swelling, redness, or edema. Neck: Trachea midline, no thyromegaly or masses palpated, and no cervical lymphadenopathy. Supple, full range of motion without nuchal rigidity, or vertebral point tenderness. No Meningismus. Chest/axilla: Normal chest wall appearance and motion. Nontender with no deformity. No lesions are appreciated. Cardiovascular: Regular rate and rhythm with a normal S1 and S2. No gallops, murmurs, or rubs. Normal PMI, no JVD. No pulse deficits. Respiratory: Lungs have equal breath sounds bilaterally, clear to auscultation and percussion. No rales, rhonchi or wheezes noted. No increased work of breathing, no retractions or nasal flaring. Abdomen/GI: Soft, non-tender, with normal bowel sounds. No distension or tympany. No guarding or rebound. No evidence of tenderness throughout. Back: No spinal tenderness. No costovertebral tenderness. Full range of motion. Skin: Warm, dry with normal turgor. Normal color with no rashes, no lesions, and no evidence of cellulitis. MS/ Extremity: Pulses equal, no cyanosis. Neurovascular intact. Full, normal range of motion. Neuro: Awake and alert, GCS 15, oriented to person, place, time, and situation. Cranial nerves II-XII grossly intact. Motor strength 5/5 in all extremities. Sensory grossly intact. Cerebellar exam normal. Normal gait. Psych: Awake, alert, with orientation to person, place and time. Behavior, mood, and affect are within normal limits. Vital Signs: 20:00 BP 159 / 97; Pulse 91; Resp 18; Temp 97.5; Pulse Ox 97% ; Weight 133.36 kg; Height 5 rr5 ft. 4 in. (162.56 cm); Pain 8/10; 20:54 BP 133 / 83; Pulse 82; Resp 17; Pulse Ox 99% on R/A; rr5 21:50 BP 128 / 84; Pulse 83; Resp 17; Temp 97.7; Pulse Ox 99% ; Pain 4/10; rr5 20:00 Body Mass Index 50.46 (133.36 kg, 162.56 cm) rr5 MDM: 21:42 Patient medically screened. kdr 21:50 Data reviewed: vital signs, nurses notes, lab test result(s), radiologic studies. kdr Counseling: I had a detailed discussion with the patient and/or guardian regarding: the historical points, exam findings, and any diagnostic results supporting the discharge/admit diagnosis, lab results, radiology results, the need for outpatient follow up. 02/07 20:17 Order name: CBC with Diff; Complete Time: 21:13 kdr 02/07 20:17 Order name: Chem 7; Complete Time: 21:23 kdr 02/07 20:17 Order name: CT Head Brain wo Cont; Complete Time: 21:13 kdr Administered Medications: 20:49 Drug: traMADol 50 mg Route: PO; rr5 21:50 Follow up: Response: No adverse reaction rr5 Disposition: 02/07/19 21:42 Discharged to Home. Impression: Headache, Hypertensive heart disease. - Condition is Stable. - Discharge Instructions: General Headache Without Cause, Hypertension, Auhd-uo-Orwo. - Medication Reconciliation Form, Thank You Letter form. - Follow up: Private Physician; When: 2 - 3 days; Reason: If symptoms return, Further diagnostic work-up, Recheck today's complaints, Continuance of care, Re-evaluation by your physician. - Problem is new. - Symptoms have improved. Signatures: Dispatcher [employer] EDKirk Doshi MD MD kdr Leonardo Caro RN RN rr5 Corrections: (The following items were deleted from the chart) 22:04 21:42 02/07/2019 21:42 Discharged to Home. Impression: Headache; Hypertensive heart rr5 disease. Condition is Stable. Forms are Medication Reconciliation Form, Thank You Letter, Antibiotic Education, Prescription Opioid Use. Follow up: Private Physician; When: 2 - 3 days; Reason: If symptoms return, Further diagnostic work-up, Recheck today's complaints, Continuance of care, Re-evaluation by your physician. Problem is new. Symptoms have improved. kdr
--- NOTE | 2019-02-07 21:43 | ER ---
Nurse's Notes [facility] Name: Chantal Stout Age: 48 yrs Sex: Female : 1970 Arrival Date: 02/07/2019 Time: 19:42 Bed 19 Private MD: JOSE MAR Diagnosis: Headache;Hypertensive heart disease Presentation: 02/07 20:00 Presenting complaint: Patient states: i feel pressure in my head it feels like its rr5 squeezing started 5pm today, pain score 8/10. my face feels swollen. i checked my sugar 324 mg/dl, BP 188/107mmHg. i have this new medicine that i am injecting TRULICiTY for my diabetes once a week every . 20:00 Transition of care: patient was not received from another setting of care. Onset of rr5 symptoms was February 07, 2019. Risk Assessment: Do you want to hurt yourself or someone else? Patient reports no desire to harm self or others. Initial Sepsis Screen: Does the patient meet any 2 criteria? No. Patient's initial sepsis screen is negative. Does the patient have a suspected source of infection? No. Patient's initial sepsis screen is negative. Care prior to arrival: Medication(s) given: on amoxicillin treatment for toothache, on steroid medication but I took extra steroid does this afternoon. 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 LMP 2009, menopause as verbalized by the patient rr5 Historical: - Allergies: 20:13 Bactrim; rr5 20:13 Cephalexin; rr5 20:13 Codeine; rr5 20:13 Iodine; rr5 20:13 Levaquin; rr5 20:13 Sulfa (Sulfonamide Antibiotics); rr5 - Home Meds: 20:13 Trulicity subcutaneous subcutaneous [Active]; amlodipine 10 mg tab 1 tab once daily rr5 [Active]; glyburide 5 mg Oral tab 1 tab once daily [Active]; metformin 750 mg Oral Tb24 1 tab twice a day [Active]; omeprazole 20 mg Oral cpDR 1 cap once daily [Active]; losartan 50 mg Oral tab 1 tab once daily [Active]; hydrocortisone 10 mg Oral tab 1 tab 2 times per day [Active]; levothyroxine 75 mcg tab 1 tab once daily [Active]; - PMHx: 20:13 Anemia; Asthma; Diabetes - NIDDM; Hypertension; Hypothyroidism; pituitary tumor- rr5 surgically removed Jun 24; - PSHx: 20:13 Tonsillectomy; D \T\ C; tumor in the cervix; rr5 - Immunization history:: Adult Immunizations up to date. - Social history:: Smoking status: Patient/guardian denies using tobacco, Patient/guardian denies using alcohol, street drugs. - Ebola Screening: : Patient negative for fever greater than or equal to 101.5 degrees Fahrenheit, and additional compatible Ebola Virus Disease symptoms Patient denies exposure to infectious person Patient denies travel to an Ebola-affected area in the 21 days before illness onset. Screenin:58 Abuse screen: Denies threats or abuse. Denies injuries from another. Nutritional rr5 screening: No deficits noted. Tuberculosis screening: No symptoms or risk factors identified. Fall Risk IV access (20 points). Total Byrd Fall Scale indicates No Risk (0-24 pts). Assessment: 20:00 General: Appears in no apparent distress. uncomfortable, Behavior is calm, cooperative, rr5 appropriate for age. Pain: Complains of pain in head Pain does not radiate. Pain currently is 8 out of 10 on a pain scale. Quality of pain is described as squeezing, Pain began gradually, Is intermittent. 20:00 Neuro: Level of Consciousness is awake, alert, obeys commands, Oriented to person, rr5 place, time, situation, Appropriate for age Reports headache. Cardiovascular: Capillary refill < 3 seconds Patient's skin is warm and dry. Respiratory: Airway is patent Respiratory effort is even, unlabored, Respiratory pattern is regular, symmetrical. GI: Abdomen is round obese, Reports nausea. : No signs and/or symptoms were reported regarding the genitourinary system. EENT: redness on the face noted. Derm: Skin is intact, Skin temperature is warm. Musculoskeletal: Circulation, motion, and sensation intact. Capillary refill < 3 seconds, Range of motion: intact in all extremities. 20:45 Reassessment: Patient appears in no apparent distress at this time. Patient is alert, rr5 oriented x 3, equal unlabored respirations, skin warm/dry/pink. awaiting for results. came from CT scan placed on bed comfortably. 21:25 Reassessment: Patient appears in no apparent distress at this time. awaiting for rr5 reassessment by the provider. 21:50 Reassessment: Patient appears in no apparent distress at this time. Patient is alert, rr5 oriented x 3, equal unlabored respirations, skin warm/dry/pink. discharge instruction given and explained without complaints made. Patient states feeling better. Patient states symptoms have improved. Vital Signs: 20:00 BP 159 / 97; Pulse 91; Resp 18; Temp 97.5; Pulse Ox 97% ; Weight 133.36 kg; Height 5 rr5 ft. 4 in. (162.56 cm); Pain 8/10; 20:54 BP 133 / 83; Pulse 82; Resp 17; Pulse Ox 99% on R/A; rr5 21:50 BP 128 / 84; Pulse 83; Resp 17; Temp 97.7; Pulse Ox 99% ; Pain 4/10; rr5 20:00 Body Mass Index 50.46 (133.36 kg, 162.56 cm) rr5 ED Course: 19:42 Patient arrived in ED. es 19:42 JOSE MAR is Private Physician. es 19:55 Kirk Escudero MD is Attending Physician. kdr 20:03 Leonardo Caro RN is Primary Nurse. rr5 20:09 Triage completed. rr5 20:14 Arm band placed on. rr5 20:15 Patient has correct armband on for positive identification. Bed in low position. Call rr5 light in reach. Adult w/ patient. Pulse ox on. NIBP on. 20:35 CT Head Brain wo Cont In Process Unspecified. EDMS 20:50 Inserted saline lock: 22 gauge in right forearm, using aseptic technique. Blood rr5 collected. 22:03 No provider procedures requiring assistance completed. IV discontinued, intact, rr5 bleeding controlled, No redness/swelling at site. Pressure dressing applied. Administered Medications: 20:49 Drug: traMADol 50 mg Route: PO; rr5 21:50 Follow up: Response: No adverse reaction rr5 Outcome: 21:42 Discharge ordered by . kdr 22:00 Discharged to home ambulatory. rr5 22:00 Condition: stable 22:00 Discharge instructions given to patient, Instructed on discharge instructions, follow up and referral plans. medication usage, Demonstrated understanding of instructions, follow-up care, medications. 22:04 Patient left the ED. rr5 Signatures: Dispatcher [employer] Kirk Mccarty MD MD kdr Salyer, Edna es Roque, Raymond RN RN rr5
[2019-02-07 23:56] VITALS: O2SAT 99
[2019-02-08] VITALS: BP 128/84; TEMP 97.7
== END 2019-02-07 22:04 | disposition home or self-care (01) ==
LOC: ER 19:39
DX: I11.9 Hypertensive heart disease without heart failure (principal); I10 Essential (primary) hypertension; E03.9 Hypothyroidism, unspecified; E11.9 Type 2 diabetes mellitus without complications; J45.909 Unspecified asthma, uncomplicated; Z88.0 Allergy status to penicillin; Z88.1 Allergy status to other antibiotic agents; Z88.2 Allergy status to sulfonamides; Z88.3 Allergy status to other anti-infective agents; Z88.5 Allergy status to narcotic agent; Z91.048 Other nonmedicinal substance allergy status
CPT/HCPCS: 36415; 70450; 80048; 85025; 99284

== ENCOUNTER 2019-03-23 08:56 | Observation (INO) | payer SELFPAY ==
--- OUTSIDE RECORDS SUMMARY | 2019-03-23 08:58 | XMS REPORT | Clinical Summary ---
:1970 Author Organization [facility] Address [address] [place] [address] Care Team Providers Name Role Phone Pcp, [...] packet by 3 packet 5 06/25/2018 Active udijb-flmstq-wzmmey Nasal route 2 bottle (NEILMED (two) times [...] MD Hoffman, Maria MD 06/18/2018 Travel after 03/22/2018 Family History Medical History Relation Name Comments [...] Taken Blood Pressure 125/71 06/27/2018 12:09 PM TOOLING ENGINEER Pulse 63 06/27/2018 12:09 PM TOOLING ENGINEER Temperature 36.2 C (97.1 F) 06/27/2018 12:09 PM TOOLING ENGINEER Respiratory Rate 18 06/27/2018 12:09 PM TOOLING ENGINEER Oxygen Saturation 97% 06/27/2018 12:09 PM TOOLING ENGINEER Inhaled Oxygen Concentration - - Weight 122.5 kg (270 lb) 06/18/2018 9:00 PM TOOLING ENGINEER Height 162.6 cm (5' 4") 06/18/2018 9:00 PM TOOLING ENGINEER Body Mass Index 46.35 06/18/2018 9:00 PM TOOLING ENGINEER Plan of Treatment Not on file Implants Implanted Type Area Plant Production Worker Device Shelf Model / Identifier Expiration Serial / Date Lot Sealant Durasl Spine 5ml [id number] - [id number] Cement/Fi N/A: INTEGRA LIFESCI 10/21/[id number] / Implanted: Qty: 1 on 06/24/2018 by Alex Ruano MD ller/[place]ent[place] Head / sive [id number] Flseal sd Full Strlprep 10ml [id number] - [id number] Cement/Fi N/A: FUNES: BIOSCI 11/18/2019 [id number] / Implanted: Qty: 1 on 06/24/2018 by Alex Ruano MD ller/[employer] [employer] / sive [id number] Graft Matrix Dura 1x3 [id number] - [id number] Neuro N/A: MEDTRONIC 02/20/2020 [id number] / Implanted: Qty: 1 on 06/24/2018 by Alex Ruano MD Head SURGICAL / NAVIGATION [id number] Procedures Procedure Name Priority Date/Time Associated Comments Diagnosis INTRAOPERATIVE PATH 06/29/2018 1:00 REPORT - SCAN PM TOOLING ENGINEER RHYTHM STRIP - SCAN 06/29/2018 1:00 PM TOOLING ENGINEER POCT-GLUCOSE METER Routine 06/27/2018 12:07 Results for this PM TOOLING ENGINEER procedure are in the results section. POCT-GLUCOSE METER Routine 06/27/2018 7:41 Results for this AM TOOLING ENGINEER procedure are in the results section. CBC W/PLT COUNT & AUTO Routine 06/27/2018 5:56 Results for this DIFFERENTIAL AM TOOLING ENGINEER procedure are in the results section. BASIC METABOLIC PANEL Routine 06/27/2018 5:56 Results for this (7) AM TOOLING ENGINEER procedure are in the results section. CBC W/PLT COUNT & AUTO Routine 06/27/2018 5:56 Results for this DIFFERENTIAL AM TOOLING ENGINEER procedure are in the results section. CBC W/PLT COUNT & AUTO STAT 06/26/2018 11:18 Results for this DIFFERENTIAL PM TOOLING ENGINEER procedure are in the results section. CBC W/PLT COUNT & AUTO STAT 06/26/2018 11:18 Results for this DIFFERENTIAL PM TOOLING ENGINEER procedure are in the results section. BASIC METABOLIC PANEL STAT 06/26/2018 11:18 Results for this (7) PM TOOLING ENGINEER procedure are in the results section. SODIUM, RANDOM URINE STAT 06/26/2018 11:11 Results for this PM TOOLING ENGINEER procedure are in the results section. CT BRAIN WITHOUT IV STAT 06/26/2018 10:25 Results for this CONTRAST PM TOOLING ENGINEER procedure are in the results section. POCT-GLUCOSE METER Routine 06/26/2018 9:01 Results for this PM TOOLING ENGINEER procedure are in the results section. CBC W/PLT COUNT & AUTO Routine 06/26/2018 1:55 Results for this DIFFERENTIAL PM TOOLING ENGINEER procedure are in the results section. BASIC METABOLIC PANEL Routine 06/26/2018 1:55 Results for this (7) PM TOOLING ENGINEER procedure are in the results section. CBC W/PLT COUNT & AUTO Routine 06/26/2018 1:55 Results for this DIFFERENTIAL PM TOOLING ENGINEER procedure are in the results section. POCT-GLUCOSE METER Routine 06/26/2018 1:33 Results for this PM TOOLING ENGINEER procedure are in the results section. POCT-GLUCOSE METER Routine 06/26/2018 12:06 Results for this PM TOOLING ENGINEER procedure are in the results section. POCT-GLUCOSE METER Routine 06/25/2018 4:10 Results for this PM TOOLING ENGINEER procedure are in the results section. POCT-GLUCOSE METER Routine 06/25/2018 12:02 Results for this PM TOOLING ENGINEER procedure are in the results section. POCT-GLUCOSE METER Routine 06/25/2018 8:02 Results for this AM TOOLING ENGINEER procedure are in the results section. OSMOLALITY, URINE STAT 06/25/2018 4:23 Results for this AM TOOLING ENGINEER procedure are in the results section. SPECIFIC GRAVITY, STAT 06/25/2018 4:23 Results for this URINE AM TOOLING ENGINEER procedure are in the results section. POCT-GLUCOSE METER Routine 06/24/2018 9:56 Results for this PM TOOLING ENGINEER procedure are in the results section. POCT-GLUCOSE METER Routine 06/24/2018 4:57 Results for this PM TOOLING ENGINEER procedure are in the results section. BASIC METABOLIC PANEL STAT 06/24/2018 4:50 Results for this (7) PM TOOLING ENGINEER procedure are in the results section. POCT-GLUCOSE METER Routine 06/24/2018 11:09 Results for this AM TOOLING ENGINEER procedure are in the results section. POCT-GLUCOSE METER Routine 06/24/2018 9:38 Results for this AM TOOLING ENGINEER procedure are in the results section. TISSUE EXAM AP Routine 06/24/2018 8:02 Results for this AM TOOLING ENGINEER procedure are in the results section. ENDOSCOPIC SINUS 06/24/2018 7:00 Pituitary adenoma SURGERY,REPAIR CSF AM TOOLING ENGINEER (HCC) [place] Special Needs (STEALTH NAVIGATION, LUMBAR DRAIN SET, LANDMARK CT SCAN ON ) TURBINECTOMY,NASAL 06/24/2018 7:00 AM TOOLING ENGINEER Pituitary adenoma (HCC) Special Needs (STEALTH NAVIGATION, LUMBAR DRAIN SET, LANDMARK CT SCAN ON ) ENDOSCOPIC SINUS 06/24/2018 7:00 AM TOOLING ENGINEER Pituitary adenoma SURGERY,ETHMOIDECTOMY W/ (HCC) SPHENOIDOTOMY Special Needs (STEALTH NAVIGATION, LUMBAR DRAIN SET, LANDMARK CT SCAN ON ) PROCEDURE W/ STEALTH 06/24/2018 7:00 AM TOOLING ENGINEER Pituitary adenoma (HCC) Special Needs (STEALTH NAVIGATION, LUMBAR DRAIN SET, LANDMARK CT SCAN ON ) ENDOSCOPIC CRANIOTOMY,REMOVAL 06/24/2018 7:00 AM TOOLING ENGINEER Pituitary adenoma ( HCC) TRANSSPHENOIDAL PITUITARY TUMOR Special Needs (STEALTH NAVIGATION, LUMBAR DRAIN SET, LANDMARK CT SCAN ON ) POCT-GLUCOSE METER Routine 06/24/2018 5:42 AM TOOLING ENGINEER SCREEN, URINE STAT 06/24/2018 5:16 AM TOOLING ENGINEER BASIC METABOLIC PANEL (7) Routine 06/24/2018 5:16 AM TOOLING ENGINEER CBC W/PLT COUNT & AUTO Routine 06/24/2018 5:07 AM TOOLING ENGINEER Results for this DIFFERENTIAL procedure are in the results section. PT/APTT Routine 06/24/2018 5:07 AM TOOLING ENGINEER CBC W/PLT COUNT & AUTO Routine 06/24/2018 5:07 AM TOOLING ENGINEER Results for this DIFFERENTIAL procedure are in the results section. POCT-GLUCOSE METER Routine 06/23/2018 9:21 PM TOOLING ENGINEER POCT-GLUCOSE METER Routine 06/23/2018 4:31 PM TOOLING ENGINEER BASIC METABOLIC PANEL (7) Routine 06/23/2018 4:13 PM TOOLING ENGINEER POCT-GLUCOSE METER Routine 06/23/2018 8:30 AM TOOLING ENGINEER POCT-GLUCOSE METER Routine 06/22/2018 11:34 PM TOOLING ENGINEER POCT-GLUCOSE METER Routine 06/22/2018 8:21 PM TOOLING ENGINEER POCT-GLUCOSE METER Routine 06/22/2018 5:07 PM TOOLING ENGINEER POCT-GLUCOSE METER Routine 06/22/2018 11:49 AM TOOLING ENGINEER POCT-GLUCOSE METER Routine 06/22/2018 8:30 AM TOOLING ENGINEER POCT-GLUCOSE METER Routine 06/21/2018 9:09 PM TOOLING ENGINEER POCT-GLUCOSE METER Routine 06/21/2018 5:20 PM TOOLING ENGINEER POCT-GLUCOSE METER Routine 06/21/2018 11:06 AM TOOLING ENGINEER ECHOCARDIOGRAM REPORT - SCAN 06/21/2018 9:21 AM TOOLING ENGINEER FOLLICLE STIMULATING HORMONE Routine 06/21/2018 9:11 AM TOOLING ENGINEER Results for this (FSH) procedure are in the results section. INSULIN-LIKE GROWTH FACTOR Routine 06/21/2018 9:11 AM TOOLING ENGINEER ACTH Routine 06/21/2018 9:11 AM TOOLING ENGINEER CORTISOL Routine 06/21/2018 9:11 AM TOOLING ENGINEER POCT-GLUCOSE METER Routine 06/21/2018 7:[address] BRAIN WITHOUT IV CONTRAST TERI 06/20/2018 9:48 PM TOOLING ENGINEER POCT-GLUCOSE METER Routine 06/20/2018 8:48 PM TOOLING ENGINEER 2D ECHO W/ DOPPLER Routine 06/20/2018 6:40 PM TOOLING ENGINEER Results for this (CW/PW/COLOR) procedure are in the results section. POCT-GLUCOSE METER Routine 06/20/2018 4:48 PM TOOLING ENGINEER POCT-GLUCOSE METER Routine 06/20/2018 1:06 PM TOOLING ENGINEER POCT-GLUCOSE METER Routine 06/20/2018 7:21 AM TOOLING ENGINEER POCT-GLUCOSE METER Routine 06/20/2018 5:22 AM TOOLING ENGINEER BASIC METABOLIC PANEL (7) STAT 06/20/2018 5:08 AM TOOLING ENGINEER POCT-GLUCOSE METER Routine 06/20/2018 12:[address]/CTA CAROTID TERI 06/19/2018 10:[address]/CTA BRAIN TERI 06/19/2018 10:46 PM TOOLING ENGINEER POCT-GLUCOSE METER Routine 06/19/2018 9:19 PM TOOLING ENGINEER POCT-GLUCOSE METER Routine 06/19/2018 5:06 PM TOOLING ENGINEER POCT-GLUCOSE METER Routine 06/19/2018 3:03 PM TOOLING ENGINEER POCT-GLUCOSE METER Routine 06/19/2018 12:27 PM TOOLING ENGINEER SCREEN, URINE Routine 06/19/2018 11:54 AM TOOLING ENGINEER OSMOLALITY, URINE Routine 06/19/2018 11:54 AM TOOLING ENGINEER RAPID DRUG SCREEN, URINE Routine 06/19/2018 11:54 AM TOOLING ENGINEER CBC W/PLT COUNT & AUTO Routine 06/19/2018 11:49 AM TOOLING ENGINEER Results for this DIFFERENTIAL procedure are in the results section. INSULIN-LIKE GROWTH FACTOR Routine 06/19/2018 11:49 AM TOOLING ENGINEER OSMOLALITY, SERUM Routine 06/19/2018 11:49 AM TOOLING ENGINEER T4, FREE Routine 06/19/2018 11:49 AM TOOLING ENGINEER C-REACTIVE PROTEIN Routine 06/19/2018 11:49 AM TOOLING ENGINEER HIV-1 ANTIGEN WITH HIV-1/2 Routine 06/19/2018 11:49 AM TOOLING ENGINEER Results for this ANTIBODY procedure are in the results section. RPR Routine 06/19/2018 11:49 AM TOOLING ENGINEER CBC W/PLT COUNT & AUTO Routine 06/19/2018 11:49 AM TOOLING ENGINEER Results for this DIFFERENTIAL procedure are in the results section. POCT-GLUCOSE METER Routine 06/19/2018 9:25 AM TOOLING ENGINEER POCT-GLUCOSE METER Routine 06/19/2018 5:51 AM TOOLING ENGINEER GROWTH HORMONE Routine 06/19/2018 3:49 AM TOOLING ENGINEER LUTEINIZING HORMONE (LH) Routine 06/19/2018 3:49 AM TOOLING ENGINEER ACTH Routine 06/19/2018 3:49 AM TOOLING ENGINEER PROLACTIN Routine 06/19/2018 3:49 AM TOOLING ENGINEER MR BRAIN WITHOUT & WITH IV STAT 06/19/2018 2:25 AM TOOLING ENGINEER Results for this CONTRAST procedure are in the results section. HEMOGLOBIN A1C Routine 06/19/2018 12:39 AM TOOLING ENGINEER TSH/FREE T4 IF INDICATED Routine 06/18/2018 11:32 PM TOOLING ENGINEER BASIC METABOLIC PANEL (7) STAT 06/18/2018 11:32 PM TOOLING ENGINEER URINALYSIS W/ REFLEX URINE Routine 06/18/2018 10:27 PM TOOLING ENGINEER Results for this CULTURE procedure are in the results section. after 03/22/2018 Results INTRAOPERATIVE PATH REPORT - SCAN (06/29/2018 1:00 PM TOOLING ENGINEER) Narrative Performed At RHYTHM STRIP - SCAN (06/29/2018 1:00 PM TOOLING ENGINEER) Narrative Performed At POC-Glucose meter (06/27/2018 12:07 PM TOOLING ENGINEER)Only the most recent of37 resultswithin the time period is included. POC-Glucose Meter 141 (H)Comment: TESTED AT 70 - 110 mg/dL [facility] [address] [facility] [place] [address] Specimen Blood Performing Organization Address City/State/Zipcode Phone Number [address] [phone] CENTER CBC with platelet count + automated diff (06/27/2018 5:56 AM TOOLING ENGINEER)Only the most recent of5 resultswithin the time period is included. WBC 8.7 3.5 - 10.5 K/L [facility] RBC 4.82 3.93 - 5.22 M/L [facility] Hemoglobin 13.2 11.2 - 15.7 GM/DL [facility] Hematocrit 40.8 34.1 - 44.9 % [facility] MCV 84.6 79.4 - 94.8 fL [facility] MCH 27.4 25.6 - 32.2 pg [facility] MCHC 32.4 32.2 - 35.5 GM/DL [facility] RDW 13.2 11.7 - 14.4 % [facility] Platelets 233 150 - 450 K/CU MM [facility] MPV 11.5 9.4 - 12.3 fL [facility] nRBC 0 0 - 0 /100 WBC [facility] % Neutros 65 % [facility] % Lymphs 24 % [facility] % Monos 8 % [facility] % Eos 2 % [facility] % Baso 0 % [facility] # Neutros 5.65 1.56 - 6.13 K/L [facility] # Lymphs 2.07 1.18 - 3.74 K/L [facility] # Monos 0.70 (H) 0.24 - 0.36 K/L [facility] # Eos 0.16 0.04 - 0.36 K/L [facility] # Baso 0.02 0.01 - 0.08 K/L [facility] Immature Granulocytes-Relative 1 0 - 1 % [facility] Specimen Blood Performing Organization Address City/State/Zipcode Phone Number [facility] [address] [place] [address] CENTER Basic Metabolic Panel (06/27/2018 5:56 AM TOOLING ENGINEER)Only the most recent of8 resultswithin the time period is included. Sodium 139 136 - 145 meq/L [facility] Potassium 4.1 3.5 - 5.1 meq/L [facility] Chloride 105 98 - 107 meq/L [facility] CO2 28 22 - 29 meq/L [facility] BUN 11 7 - 21 mg/dL [facility] Creatinine 0.69 0.57 - 1.25 mg/dL [facility] Glucose 163 (H) 70 - 105 mg/dL [facility] Calcium 8.6 8.4 - 10.2 mg/dL [facility] EGFR 91Comment: ESTIMATED GFR IS mL/min/1.73 sq m [facility] NOT ACCURATE [facility] CLEARANCE IN PREDICTING GLOMERULAR FILTRATION RATE. ESTIMATED GFR IS NOT APPLICABLE FOR DIALYSIS PATIENTS. Specimen Blood Performing Organization Address City/State/[facility] Cent[facility] Phone Number [address] [phone] [place] Sodium, random urine (06/26/2018 11:11 PM TOOLING ENGINEER) Sodium Urine <20 meq/L [facility] Specimen Urine Narrative Performed At Reference Range: No Normals [facility] Performing Organization Address [facility] Centerc[facility] Phone Number [address] brain without IV contrast (06/26/2018 10:25 PM TOOLING ENGINEER)Only the most recent of2 resultswithin the time period is included. Specimen Narrative Performed At FINAL REPORT [employer] [facility] CT Head without contrast CLINICAL HISTORY: concern [...] MD Report Verified Date/Time:06/26/2018 22:57:28 Reading Location: [address] Transitional Reading Room Procedure Note Interface, External Ris In - 06/26/2018 10:59 PM TOOLING ENGINEER FINAL REPORT CT Head without contrast CLINICAL [...] Report Verified Date/Time: 06/26/2018 22:57:28 Reading Location: [address] Transitional Reading Room Performing Organization Address City/State/Zipcode Phone Number GE RIS Specific gravity, urine (06/25/2018 4:23 AM TOOLING ENGINEER) Specific Nicholson, UA 1.010 1.001 - 1.035 [facility] Specimen Urine Performing Organization Address City/State/Zipcode Phone Number [facility] [address] [place] [address] [place] Osmolality, urine (06/25/2018 4:23 AM TOOLING ENGINEER)Only the most recent of2 resultswithin the time period is included. Osmolality, Ur 340 40-1,400 mOsm/kg [facility] Specimen Urine Performing Organization Address City/[facility] Phone Number [facility] [address] [place] [phone] [place] Tissue Exam (06/24/2018 8:02 AM TOOLING ENGINEER) Case Report Surgical Pathology Report Case: [id number] [facility] Authorizing Provider:Alex Ruano MD Collected: 06/24/2018 0802 [facility] Ordering Location: [address] Received: 06/24/2018 0809 CENTER Service Pathologist: Chon Caraballo MD Specimens: A) - Tumor, pituitary tumor B) - Tumor, pituitary tumor DIAGNOSIS A.PITUITARY GLAND, TRANSSPHENOIDAL HYPOPHYSECTOMY: [facility] NULL CELL ADENOMA INVADING RESPIRATORY MUCOSA [facility] B. PITUITARY GLAND, TRANSSPHENOIDAL HYPOPHYSECTOMY: NULL CELL ADENOMA ENTRAPPED ADENOHYPOPHYSIS Signing Pathologist Direct Phone Line: [phone] COMMENT [facility]operoxidase stains [facility] performed on the second [facility] specimen show that the tumor CENTER has no staining for growth hormone, LH, FSH, TSH, prolactin, or ACTH. 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 The MIB-1 proliferation index is less than 1%. CPT Code(s) 27579 x 2; 34242; 41201; 26924 [facility] x 6; 54380 [facility] CLINICAL HISTORY Pituitary adenoma [facility] SPECIMEN SOURCE A. Pituitary tumor; B. [facility] Pituitary tumor [facility] GROSS DESCRIPTION A. The specimen is received fresh for frozen section diagnosis and labeled "pituitary tumor" and consists of a single fragment of tariq -red soft tissue measuring 0.5 cm in greatest dimension submitted ent [facility] for frozen section diagnosis, and touch preps are performed. CG/ew [facility] B. Received fresh labeled "tumor", description "pituitary tumor" is a 2.0 x 1.0 x 0.3 cm aggregate of pink-tariq to hannah-white rubbery friable soft tissue. The specimen is entirely submitted in cassette B1. DB/pl INTRAOPERATIVE FROZEN SECTION DIAGNOSIS, PITUITARY TUMOR: [facility] CONSULTATION ADENOMA EXTENDING INTO RESPIRATORY MUCOSA PER DR. CARABALLO [facility] MICROSCOPIC DESCRIPTION Performed on A and B [facility] SPECIAL STUDIES The interpretation of this case included the use of immunohistochemistry or special stains. [facility] Immunohistochemistry technical testing was performed at [facility], Pathology Laboratory where it was developed [...] City/State/Zipcode Phone Number [facility] [address] [place] [address] [phone] CENTER Screen, urine (06/24/2018 5:16 AM TOOLING ENGINEER)Only the most recent of2 resultswithin the time period is included. Preg Test, Ur Negative [facility] Specimen Urine Performing Organization Address City/[facility]/Zipcode Phone Number [facility] [address] [place] [address] [phone] CENTER PT/aPTT (06/24/2018 5:07 AM TOOLING ENGINEER) Protime 13.8 11.7 - 14.7 seconds [facility] INR 1.1 <=5.9 [facility] PTT 32.0 22.5 - 36.0 seconds [facility] Specimen Blood Narrative Performed At RECOMMENDED COUMADIN/WARFARIN INR THERAPY [facility] RANGES STANDARD DOSE: 2.0 - 3.0 Includes: PROPHYLAXIS for venous thrombosis, systemic embolization; TREATMENT for venous thrombosis and/or pulmonary embolus. HIGH RISK: Target INR is 2.5-3.5 for patients with mechanical heart valves. Performing Organization Address [facility] Centercode Phone Number [address] [address] [place] ECHOCARDIOGRAM REPORT - SCAN (06/21/2018 9:21 AM TOOLING ENGINEER) Narrative Performed At Cortisol (06/21/2018 9:11 AM TOOLING ENGINEER) Cortisol, Total 4.7 3.7 - 19.4 ug/dL [facility] Specimen Blood Performing Organization Address City/[facility] Phone Number [address] [address] [phone] CENTER Insulin-like growth factor (06/21/2018 9:11 AM TOOLING ENGINEER)Only the most recent of2 resultswithin the time period is included. Igf-1(Somatomedin-C) 36 (L) 52 - 328 ng/mL [facility] Z-Score Male: DNR [facility] Z-Score Female: -2.6 (L) -2.0 - 2.0 SD [facility] Comment: [facility] This test was developed and its analytical performance characteristics have been determined by [facility]. It has not been cleared or approved by FDA. This assay has been validated pursuant to the CLIA regulations and is used for clinical purposes. Specimen Blood Narrative Performed At Performing Lab [facility] nprogress [address] [address] Sixto Rodrigez MD, PhD, ANABELL Performing Organization Address [facility] Phone Number [employer] [place] [address] [place] [address] [facility] ACTH (06/21/2018 9:11 AM TOOLING ENGINEER)Only the most recent of2 resultswithin the time period is included. ACTH 17 6 - 50 pg/mL [employer] [employer] Comment: Reference range applies only to the specimens collected between 7am-10am. Specimen Blood Narrative Performed At Performing Lab Before the Call[address] [address] Sixto Rodrigez MD, PhD, ANABELL Performing Organization Address [facility] Number [employer] [place] [address] [place] [address] [facility] Follicle stimulating hormone (FSH) (06/21/2018 9:11 AM TOOLING ENGINEER) Fsh 2.3 mIU/mL [employer] Comment: Adult female reference ranges for FSH: Follicular Phase: 2.5- 10.2 mIU/mL Mid-Cycle:3.1- 17.7 mIU/mL Luteal Phase: 1.5-9.1 mIU/mL Postmenopausal:23.0-116.3 mIU/mL Children (<18 Years Old): FSH reference ranges established on post-pubertal patient population. Reference range not established for pre-pubertal patients using this assay. For pre-pubertal patients, the [employer] FSH, Pediatrics assay is recommended (test code 36119). Specimen Blood Narrative Performed At Performing Lab [employer] [address] [address] Sixto Rodrigez MD, PhD, ANABELL Performing Organization Address [facility] Phone [place] [address] [place] [address] [facility] 2D Echo W/Doppler(CW/PW/Color) (06/20/2018 6:40 PM TOOLING ENGINEER) Ejection Fraction [facility] ECHO [facility]ART[facility] MKCKESSON CPACS Specimen Narrative Performed At Transthoracic Echocardiography Report (TTE) [facility] Demographics Patient NameVY STOUT Date of Study06/20/2018 Female Visit [id number] Unknown Room [id number] Number Date of 1970Referring Abrahan Mireles MD Age 48 year(s)[employer] Custodian Elaina Grajeda [facility] Respiratory Care Specialist Tony Fernandez Interpreting Tarik Domínguez MD Procedure [...] External Ris In - 06/21/2018 8:37 AM TOOLING ENGINEER Transthoracic Echocardiography Report (TTE) Demographics Patient Name VY STOUT Date of Study 06/20/2018 Gender Female Visit Number [id number] Race Unknown Room Number 2251 Number Date of 1970 Referring Physician Althea Mireles MD Age 48 year(s) [employer] [employer] Custodian Elaina Grajeda RDCS Respiratory Care Specialist Ethan Rowell Physician Procedure Type of Study [...] TR Gradient: 18.02 mmHg Performing Organization Address City/State/[facility] Centercode Phone Number [facility] E[facility] MKCKESSON CPACS CTA carotid (06/19/2018 10:46 PM TOOLING ENGINEER) Specimen Narrative Performed At FINAL REPORT [employer] [facility] CLINICAL HISTORY: Stroke TECHNIQUE: Initially, noncontrast head [...] MD Report Verified Date/Time:06/20/2018 01:03:44 Reading Location: [address] Transitional Reading Room Procedure Note Interface, External Ris In - 06/20/2018 1:05 AM TOOLING ENGINEER FINAL REPORT CLINICAL HISTORY: Stroke TECHNIQUE: Initially, [...] Report Verified Date/Time: 06/20/2018 01:03:44 Reading Location: [address] Transitional Reading Room Performing Organization Address City/State/Zipcode Phone Number [employer] CTA brain (06/19/2018 10:46 PM TOOLING ENGINEER) Specimen Narrative Performed At FINAL REPORT [employer] [facility] CLINICAL HISTORY: Stroke TECHNIQUE: Initially, noncontrast head [...] MD Report Verified Date/Time:06/20/2018 01:03:44 Reading Location: [address] Transitional Reading Room Procedure Note Interface, External Ris In - 06/20/2018 1:05 AM TOOLING ENGINEER FINAL REPORT CLINICAL HISTORY: Stroke TECHNIQUE: Initially, [...] Report Verified Date/Time: 06/20/2018 01:03:44 Reading Location: [address] Transitional Reading Room Performing Organization Address City/State/Zipcode Phone Number RIS Rapid drug screen, urine (06/19/2018 11:54 AM TOOLING ENGINEER) Barbiturate Screen Negative Negative [facility] Benzodiazepine Screen Negative Negative [facility] Cocaine (Metab.) Screen Negative Negative [facility] Methadone Screen Negative Negative [facility] Opiate Screen Negative Negative [facility] Cannabinoid Screen Negative Negative [facility] Amph/Methamph Screen Negative Negative [facility] Phencyclidine Screen Negative Negative [facility] Oxycodone Screen Negative Negative [facility] Specimen Urine Narrative Performed At [employer] [facility] CONC. Cocaine 300 ng/mL Njgkxwjvmra95 ng/mL Oedowdvljigdkj959 ng/mL Barbiturate 200 ng/mL Tvwllhfsqhwsa69 ng/mL Mfwvix214 ng/mL Methadone 300 ng/mL Amphetamine/ 1000 ng/mL Methamphetamine Oxycodone 300 ng/mL This assay provides an unconfirmed qualitative test result for the clinical management of patients in emergency situations. Chain of custody not maintained. Some qauv-cvh-ukpmtjt medications, as well as adulterants, may cause inaccurate results. Clinical correlation should be applied. A more comprehensive drug screen or confirmation of a detected drug may be performed upon request. Performing Organization Address City/[facility] Phone Number [address] [address] [phone] CENTER HIV-1 Antigen with HIV-1/2 Antibody (06/19/2018 11:49 AM TOOLING ENGINEER) HIV-1 Antigen with HIV 1&2 Nonreactive Nonreactive [facility] Specimen Blood Performing Organization Address [facility] Phone Number [address] [address] CENTER C-Reactive Protein (06/19/2018 11:49 AM TOOLING ENGINEER) CRP 0.81 (H) 0.00 - 0.50 mg/dL [facility] Specimen Blood Performing Organization Address City/[facility]/Zipcode Phone Number [address] [address] CENTER RPR (06/19/2018 11:49 AM TOOLING ENGINEER) RPR Nonreactive Nonreactive [facility] Specimen Blood Performing Organization Address [facility] Cent[facility] Phone Number [address] [address] [phone] CENTER T4, free (06/19/2018 11:49 AM TOOLING ENGINEER) Free T4 0.89 0.70 - 1.48 ng/dL [facility] Specimen Blood Performing Organization Address City/[facility]/Zipcode Phone Number [address] [address] [phone] CENTER Osmolality, serum (06/19/2018 11:49 AM TOOLING ENGINEER) Osmolality Serum 310 (H) 275 - 295 mOsm/kg [facility] Specimen Blood Performing Organization Address City/State/Zipcode Phone Number [address] [address] CENTER Prolactin (06/19/2018 3:49 AM TOOLING ENGINEER) Prolactin 23.34 5.18 - 26.53 ng/mL [facility] Specimen Blood Performing Organization Address [facility] Phone Number [address] [phone] [place] Growth hormone (06/19/2018 3:49 AM TOOLING ENGINEER) Growth Hormone <0.1 < OR=7.1 ng/mL [facility] [...] Guideline. J Clin Endocrinol Metab 2014; 99: 8080-1023]. Using GH stimulation testing, the following result at any point in the timed sequence makes GH deficiency unlikely: Adults (> or=20 years): Insulin Hypoglycemia > or=5.1 ng/mL Arginine/GHRH> or=4.1 ng/mL Glucagon > or=3.0 ng/mL Children (<20 years): All Stimulation Tests> or=10.0 ng/mL Specimen Blood Narrative Performed At Performing Lab [facility] [id number] [place] [address] Sixto Rodrigez MD, PhD, ANABELL Performing Organization Address [facility] Phone Number [employer] [place] [address] [address] [place] [address] Luteinizing hormone (LH) (06/19/2018 3:49 AM TOOLING ENGINEER) LH, Serum 0.2 mIU/mL [employer] Comment: Adult Female Reference Ranges for LH: Follicular Phase:1.9-12.5 mIU/mL Mid-Cycle Peak:8.7-76.3 mIU/mL Luteal Phase:0.5-16.9 mIU/mL Postmenopausal: 10.0-54.7 mIU/mL Children (<18 Years Old): LH reference ranges established on post-pubertal patient population. Reference range not established for pre-pubertal patients using this assay. For pre-pubertal patients, the [employer] LH, Pediatric assay is recommended (order code [id number]). Specimen Blood Narrative Performed At Performing Lab [facility] [employer] [id number] [place] [address] Sixto Rodrigez MD, PhD, ANABELL Performing Organization Address [facility] Phone Number [employer] [place] [address] [address] [place] [address] MR brain without & with IV contrast (06/19/2018 2:25 AM TOOLING ENGINEER) Specimen Narrative Performed At FINAL REPORT [employer] [facility] MRI brain with and without contrast Comparison:None. 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 C013Y CT Body Reading Room Procedure Note Interface, External Ris In - 06/19/2018 2:27 AM TOOLING ENGINEER FINAL REPORT MRI brain with and without contrast Comparison: None. 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/Zipcode Phone Number [facility] Hemoglobin A1c (06/19/2018 12:39 AM TOOLING ENGINEER) Hemoglobin A1C 7.9 (H) 4.3 - 6.1 % [facility] Specimen Blood Performing Organization Address [facility] Centercode Phone Number [address] [address] CENTER TSH/Free T4 If Indicated (06/18/2018 11:32 PM TOOLING ENGINEER) TSH 0.41 0.35 - 4.94 uIU/mL [facility] Specimen Blood Performing Organization Address [facility] Phone Number [address] [address] CENTER Urinalysis w/Microscopic + Reflex to Culture (06/18/2018 10:27 PM TOOLING ENGINEER) Color, UA Yellow [facility] Clarity, UA Clear [facility] Specific Nicholson, UA 1.011 1.001 - 1.035 [facility] pH, UA 5.0 5.0 - 8.0 [facility] Protein, UA Negative Negative [facility] Glucose, UA >1000 mg/dL (A) Negative [facility] Ketones, UA 20 mg/dL (A) Negative [facility] Bilirubin, UA Negative Negative [facility] Blood, UA Negative Negative [facility] Nitrite, UA Negative Negative [facility] Leukocytes, UA Negative Negative [facility] Urobilinogen, UA 0.2 0.2 - 1.0 mg/dL [facility] RBC, UA <1 /HPF [facility] WBC, UA <1 /HPF [facility] Squam Epithel, UA <1 /HPF [facility] Specimen Source [facility] Specimen Urine Performing Organization Address City/State/Zipcode Phone Number [facility] [address] [place] [address] CENTER after 03/22/2018 Insurance Payer Benefit Plan / Subscriber ID Type Phone Address Group [employer]UE [employer] xxxxxxxxxxxx PPO [phone] [address] [employer] [address] (Home) [address] [place] [id number] Advance Directives Patient has advance care planning documents, and code status on file. For more information, please contact:[address] [phone] Code Status Date Activated Date Inactivated Comments Full Code 06/26/2018 1:38 PM This code status was determined by: Patient Full Code 06/18/2018 8:39 PM 06/26/2018 11:54 AM This code status was determined by: Patient
--- OUTSIDE RECORDS SUMMARY | 2019-03-23 08:59 | XMS REPORT ---
[...] Dosage System Date Losartan [facility] [id number] 50-12.5 MG Active 1 tablet Potassium-HCTZ Orally Once a day Results No Known Results Summary Purpose [employer] Submission
--- OUTSIDE RECORDS SUMMARY | 2019-03-23 08:59 | XMS REPORT ---
:1970 Author Organization [employer] Care Team Providers Name Role Phone Teller, Neeru Provider Role Unavailable Allergies No Known [...]
--- OUTSIDE RECORDS SUMMARY | 2019-03-23 08:59 | XMS REPORT ---
[...] Date Date Atorvastatin Calcium [facility] 40579830622 10 MG Oral Active TAKE 1 TABLET BY MOUTH AT BEDTIME. ProAir HFA [facility] 46003187008 108 (90 Base) Active USE 1-2 MCG/ACT PUFFS BY Inhalation MOUTH EVERY 4-6 HOURS Levothyroxine Sodium ND 78037834124 88 MCG Oral Active TAKE 1 TABLET BY MOUTH EVERY MORNING Valsartan-Hydrochlor ND 61165867076 80-12.5 MG Active TAKE 1 othiazide Oral TABLET BY MOUTH EVERY DAY Benzonatate ND 27885727867 200 MG Oral Active TAKE ONE CAPSULE BY MOUTH 3 TIMES A DAY NEEDED FOR COUGH MethylPREDNISolone ND 80974695013 4 MG Oral Active TAKE 6 TABLETS ON DAY 1 DIRECTED ON PACKAGE AND DECREASE BY 1 TAB EACH DAY FOR A TOTAL OF 6 DAYS GlyBURIDE ND 72516454467 5 MG Orally Iraida Active 1 tablet Once a day 2017 breakfast or the first main meal of the day MetFORMIN HCl ER ND 13893609595 750 MG Oral Active TAKE 1 TABLET BY MOUTH 2 TIMES DAILY BEFORE BREAKFAST AND DINNER. Results No Known Results Summary Purpose [employer]ClinicalWorks Submission
--- OUTSIDE RECORDS SUMMARY | 2019-03-23 08:59 | XMS REPORT ---
:1970 Author Organization [facility] Address [address] [place] [address] Dr. Holbrook [address] [place] [address] Care Team Providers Name Role Phone DAJUAN GEORGE Unavailable Unavailable MITCHELL DOBSON Unavailable Unavailable Problems This patient has no known problems. Allergies, Adverse Reactions, Alerts This patient has no known allergies or adverse reactions. Medications This patient has no known medications. Results Test Description Test Time Test Comments Text Results Atomic Results Result Comments TISSUE EXAM 2018-06-28 08:38:00 Surgical Pathology Report Case: [id number] Authorizing Provider: Alex Ruano MD Collected: 06/24/2018801 Ordering Location: [address] Received: 06/24/2018 0809 Service Pathologist: Chon Andino MD Specimens: A) - Tumor, pituitary tumor B) - Tumor, pituitary tumor A.PITUITARY GLAND, TRANSSPHENOIDAL 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 PITUITARY GLAND, TRANSSPHENOIDAL HYPOPHYSECTOMY:NULL CELL ADENOMAENTRAPPED ADENOHYPOPHYSIS Signing Pathologist Direct Phone Line: [phone] signed by Chon Andino MD on 06/28/2018 at 8:38 AMImmunoperoxidase stains performed on the second specimen show that the tumor has no staining for growth hormone, LH, FSH, TSH, prolactin, or ACTH. 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 The MIB-1 proliferation index is less than 1%. 40467 x 2; 91737; 90995; 99977 x 6; 17714Oqrxhlccq adenoma A. Pituitary tumor; B. Pituitary tumorA. [...] Immunohistochemistry technical testing was performed at [facility], Pathology Laboratory where it was [...] (test 141 mg/dL 70-[address] [facility] [address] [place] [address] mfyo=9877) [facility] [address] POCT-GLUCOSE [id number] 12:06:00 Test Item Value Reference Range Comments POC-GLUCOSE METER (BEAKER) 217 mg/dL 70-110 TESTED AT [address] (test kegi=0292) [facility] [address] BASIC METABOLIC [id number] 07:18:00 Test Item Value Reference Range Comments SODIUM (BEAKER) (test 139 meq/L 136-145 exxu=165) POTASSIUM (BEAKER) (test 4.1 meq/L 3.5-5.1 xryh=273) CHLORIDE (BEAKER) (test 105 meq/L 98-107 wuex=092) CO2 (BEAKER) (test 28 meq/L 22-29 snle=703) BLOOD UREA NITROGEN 11 mg/dL 7-21 (BEAKER) (test erwz=904) CREATININE (BEAKER) (test 0.69 mg/dL 0.57-1.25 mdrn=924) GLUCOSE RANDOM (BEAKER) 163 mg/dL 70-105 (test ohgl=837) CALCIUM (BEAKER) (test 8.6 mg/dL 8.4-10.2 xynn=928) EGFR (BEAKER) (test 91 mL/min/1.73 sq m ESTIMATED GFR IS NOT bgkk=1068) ACCURATE CREATININE CLEARANCE IN PREDICTING GLOMERULAR FILTRATION RATE. ESTIMATED GFR IS NOT APPLICABLE FOR DIALYSIS PATIENTS. CBC W/PLT COUNT & AUTO [id number] 06:49:00 Test Item Value Reference Range Comments WHITE BLOOD CELL COUNT (BEAKER) (test acqv=411) 8.7 K/ L 3.5-10.5 RED BLOOD CELL COUNT (BEAKER) (test csaf=328) 4.82 M/ L 3.93-5.22 HEMOGLOBIN (BEAKER) (test lvbw=451) 13.2 GM/DL 11.2-15.7 HEMATOCRIT (BEAKER) (test vkfn=244) 40.8 % 34.1-44.9 MEAN CORPUSCULAR VOLUME (BEAKER) (test axus=428) 84.6 fL 79.4-94.8 MEAN CORPUSCULAR HEMOGLOBIN (BEAKER) (test 27.4 pg 25.6-32.2 ttgc=275) MEAN CORPUSCULAR HEMOGLOBIN CONC (BEAKER) (test 32.4 GM/DL 32.2-35.5 zfjt=843) RED CELL DISTRIBUTION WIDTH (BEAKER) (test 13.2 % 11.7-14.4 wefg=201) PLATELET COUNT (BEAKER) (test witm=098) 233 K/CU MM 150-450 MEAN PLATELET VOLUME (BEAKER) (test dlhg=689) 11.5 fL 9.4-12.3 NUCLEATED RED BLOOD CELLS (BEAKER) (test 0 /100 WBC 0-0 omjl=655) NEUTROPHILS RELATIVE PERCENT (BEAKER) (test 65 % imzd=075) LYMPHOCYTES RELATIVE PERCENT (BEAKER) (test 24 % zbol=528) MONOCYTES RELATIVE PERCENT (BEAKER) (test 8 % nzwe=370) EOSINOPHILS RELATIVE PERCENT (BEAKER) (test 2 % zzpg=923) BASOPHILS RELATIVE PERCENT (BEAKER) (test 0 % ybma=993) NEUTROPHILS ABSOLUTE COUNT (BEAKER) (test 5.65 K/ L 1.56-6.13 wvzs=517) LYMPHOCYTES ABSOLUTE COUNT (BEAKER) (test 2.07 K/ L 1.18-3.74 fosl=507) MONOCYTES ABSOLUTE COUNT (BEAKER) (test 0.70 K/ L 0.24-0.36 gbid=493) EOSINOPHILS ABSOLUTE COUNT (BEAKER) (test 0.16 K/ L 0.04-0.36 kahw=161) BASOPHILS ABSOLUTE COUNT (BEAKER) (test 0.02 K/ L 0.01-0.08 syml=352) IMMATURE GRANULOCYTES-RELATIVE PERCENT (BEAKER) 1 % 0-1 (test kifl=9102) BASIC METABOLIC [id number] 23:52:00 Test Item Value Reference Range Comments SODIUM (BEAKER) (test 139 meq/L 136-145 pify=457) POTASSIUM (BEAKER) (test 4.0 meq/L 3.5-5.1 Specimen slightly zkvx=936) hemolyzed CHLORIDE (BEAKER) (test 103 meq/L 98-107 mkym=742) CO2 (BEAKER) (test 28 meq/L 22-29 emrm=479) BLOOD UREA NITROGEN 12 mg/dL 7-21 (BEAKER) (test jnyy=364) CREATININE (BEAKER) (test 0.72 mg/dL 0.57-1.25 Specimen slightly cdyp=316) hemolyzed GLUCOSE RANDOM (BEAKER) 193 mg/dL 70-105 (test rhmq=609) CALCIUM (BEAKER) (test 8.6 mg/dL 8.4-10.2 uano=762) EGFR (BEAKER) (test 86 mL/min/1.73 sq m ESTIMATED GFR IS NOT dqyu=9020) ACCURATE CREATININE CLEARANCE IN PREDICTING GLOMERULAR FILTRATION RATE. ESTIMATED GFR IS NOT APPLICABLE FOR DIALYSIS PATIENTS. SODIUM, RANDOM [id number] 23:49:00 Test Item Value Reference Range Comments SODIUM URINE (BEAKER) (test vtqq=930) < meq/L Reference Range: No NormalsCBC W/PLT COUNT & AUTO [id number] 23: 35:00 Test Item Value Reference Range Comments WHITE BLOOD CELL COUNT (BEAKER) (test huyu=590) 9.7 K/ L 3.5-10.5 RED BLOOD CELL COUNT (BEAKER) (test fldx=241) 4.46 M/ L 3.93-5.22 HEMOGLOBIN (BEAKER) (test lznw=628) 12.2 GM/DL 11.2-15.7 HEMATOCRIT (BEAKER) (test ocum=996) 37.8 % 34.1-44.9 MEAN CORPUSCULAR VOLUME (BEAKER) (test lsky=463) 84.8 fL 79.4-94.8 MEAN CORPUSCULAR HEMOGLOBIN (BEAKER) (test 27.4 pg 25.6-32.2 wokk=435) MEAN CORPUSCULAR HEMOGLOBIN CONC (BEAKER) (test 32.3 GM/DL 32.2-35.5 askd=558) RED CELL DISTRIBUTION WIDTH (BEAKER) (test 13.0 % 11.7-14.4 duol=891) PLATELET COUNT (BEAKER) (test xjzw=919) 210 K/CU MM 150-450 MEAN PLATELET VOLUME (BEAKER) (test wnmo=167) 11.4 fL 9.4-12.3 NUCLEATED RED BLOOD CELLS (BEAKER) (test 0 /100 WBC 0-0 xful=514) NEUTROPHILS RELATIVE PERCENT (BEAKER) (test 61 % lzci=151) LYMPHOCYTES RELATIVE PERCENT (BEAKER) (test 28 % ymva=103) MONOCYTES RELATIVE PERCENT (BEAKER) (test 8 % cyfd=102) EOSINOPHILS RELATIVE PERCENT (BEAKER) (test 2 % rkmd=959) BASOPHILS RELATIVE PERCENT (BEAKER) (test 0 % vncm=808) NEUTROPHILS ABSOLUTE COUNT (BEAKER) (test 5.87 K/ L 1.56-6.13 qwkh=087) LYMPHOCYTES ABSOLUTE COUNT (BEAKER) (test 2.72 K/ L 1.18-3.74 foyf=828) MONOCYTES ABSOLUTE COUNT (BEAKER) (test 0.80 K/ L 0.24-0.36 zgum=057) EOSINOPHILS ABSOLUTE COUNT (BEAKER) (test 0.22 K/ L 0.04-0.36 hstb=001) BASOPHILS ABSOLUTE COUNT (BEAKER) (test 0.03 K/ L 0.01-0.08 mgep=204) IMMATURE GRANULOCYTES-RELATIVE PERCENT (BEAKER) 1 % 0-1 (test zuno=5766) CT, BRAIN, WITHOUT [id number] 22:57:00FINAL REPORT CT Head without contrast CLINICAL [...] Gamboa Verified Date/Time: 06/26/2018 22:57:28 [address] POCT-GLUCOSE [id number] 21:07:00 Test Item Value Reference Range Comments POC-GLUCOSE METER (BEAKER) 211 mg/dL 70-110 TESTED AT [address] (test cxky=1938) [facility] [address] BASIC METABOLIC [id number] 14:29:00 Test Item Value Reference Range Comments SODIUM (BEAKER) (test 137 meq/L 136-145 usnb=173) POTASSIUM (BEAKER) (test 3.6 meq/L 3.5-5.1 lmsx=564) CHLORIDE (BEAKER) (test 100 meq/L 98-107 pysj=503) CO2 (BEAKER) (test 32 meq/L 22-29 jjcm=170) BLOOD UREA NITROGEN 12 mg/dL 7-21 (BEAKER) (test ddcu=581) CREATININE (BEAKER) (test 0.71 mg/dL 0.57-1.25 ezch=033) GLUCOSE RANDOM (BEAKER) 182 mg/dL 70-105 (test uypl=301) CALCIUM (BEAKER) (test 8.7 mg/dL 8.4-10.2 teks=436) EGFR (BEAKER) (test 88 mL/min/1.73 sq m ESTIMATED GFR IS NOT kyxy=8994) ACCURATE CREATININE CLEARANCE IN PREDICTING GLOMERULAR FILTRATION RATE. ESTIMATED GFR IS NOT APPLICABLE FOR DIALYSIS PATIENTS. CBC W/PLT COUNT & AUTO [id number] 14:25:00 Test Item Value Reference Range Comments WHITE BLOOD CELL COUNT (BEAKER) (test fuen=816) 12.3 K/ L 3.5-10.5 RED BLOOD CELL COUNT (BEAKER) (test ocwj=195) 4.76 M/ L 3.93-5.22 HEMOGLOBIN (BEAKER) (test zgwz=863) 13.1 GM/DL 11.2-15.7 HEMATOCRIT (BEAKER) (test lycu=216) 40.6 % 34.1-44.9 MEAN CORPUSCULAR VOLUME (BEAKER) (test kdsn=749) 85.3 fL 79.4-94.8 MEAN CORPUSCULAR HEMOGLOBIN (BEAKER) (test 27.5 pg 25.6-32.2 bwwd=398) MEAN CORPUSCULAR HEMOGLOBIN CONC (BEAKER) (test 32.3 GM/DL 32.2-35.5 lzbb=897) RED CELL DISTRIBUTION WIDTH (BEAKER) (test 13.1 % 11.7-14.4 wefu=756) PLATELET COUNT (BEAKER) (test ssbx=874) 254 K/CU MM 150-450 MEAN PLATELET VOLUME (BEAKER) (test jppw=147) 11.1 fL 9.4-12.3 NUCLEATED RED BLOOD CELLS (BEAKER) (test 0 /100 WBC 0-0 xove=745) NEUTROPHILS RELATIVE PERCENT (BEAKER) (test 68 % acyd=056) LYMPHOCYTES RELATIVE PERCENT (BEAKER) (test 24 % yhjo=009) MONOCYTES RELATIVE PERCENT (BEAKER) (test 6 % uwhe=203) EOSINOPHILS RELATIVE PERCENT (BEAKER) (test 1 % wrnu=526) BASOPHILS RELATIVE PERCENT (BEAKER) (test 0 % dkxt=157) NEUTROPHILS ABSOLUTE COUNT (BEAKER) (test 8.42 K/ L 1.56-6.13 jelf=166) LYMPHOCYTES ABSOLUTE COUNT (BEAKER) (test 2.90 K/ L 1.18-3.74 lveg=697) MONOCYTES ABSOLUTE COUNT (BEAKER) (test 0.79 K/ L 0.24-0.36 jwsb=520) EOSINOPHILS ABSOLUTE COUNT (BEAKER) (test 0.07 K/ L 0.04-0.36 tppg=062) BASOPHILS ABSOLUTE COUNT (BEAKER) (test 0.05 K/ L 0.01-0.08 eqns=701) IMMATURE GRANULOCYTES-RELATIVE PERCENT (BEAKER) 1 % 0-1 (test qhjz=8683) POCT-GLUCOSE [id number] 13:38:00 Test Item Value Reference Range Comments POC-GLUCOSE METER (BEAKER) 219 mg/dL 70-110 TESTED AT [address] (test drah=8183) [place] [id number] POCT-GLUCOSE [id number] 12:34:00 Test Item Value Reference Range Comments POC-GLUCOSE METER (BEAKER) 193 mg/dL 70-110 TESTED AT [address] (test zpfe=2607) [place] [id number] POCT-GLUCOSE [id number] 16:17:00 Test Item Value Reference Range Comments POC-GLUCOSE METER (BEAKER) 244 mg/dL 70-110 TESTED AT [address] (test pqpd=1202) [place] [id number] POCT-GLUCOSE [id number] 12:08:00 Test Item Value Reference Range Comments POC-GLUCOSE METER (BEAKER) 229 mg/dL 70-110 TESTED AT [address] (test suoh=6602) [place] [id number] POCT-GLUCOSE [id number] 08:27:00 Test Item Value Reference Range Comments POC-GLUCOSE METER (BEAKER) 280 mg/dL 70-110 TESTED AT [address] (test gdyy=3476) [facility] [address] OSMOLALITY, [id number] 05:16:00 Test Item Value Reference Range Comments OSMOLALITY URINE (BEAKER) (test xxln=517) 340 mOsm/kg 40-1,400 SPECIFIC GRAVITY, [id number] 04:53:00 Test Item Value Reference Range Comments SPECIFIC GRAVITY UA (BEAKER) (test qzmw=751) 1.010 1.001-1.035 POCT-GLUCOSE [id number] 22:29:00 Test Item Value Reference Range Comments POC-GLUCOSE METER (BEAKER) 257 mg/dL 70-110 TESTED AT [address] (test ycwx=0918) [place] [id number] BASIC METABOLIC [id number] 17:49:00 Test Item Value Reference Range Comments SODIUM (BEAKER) (test 137 meq/L 136-145 glhj=198) POTASSIUM (BEAKER) (test 4.6 meq/L 3.5-5.1 sefs=570) CHLORIDE (BEAKER) (test 102 meq/L 98-107 gbhd=000) CO2 (BEAKER) (test 26 meq/L 22-29 yerx=744) BLOOD UREA NITROGEN 14 mg/dL 7-21 (BEAKER) (test eqbh=951) CREATININE (BEAKER) (test 0.78 mg/dL 0.57-1.25 qblk=628) GLUCOSE RANDOM (BEAKER) 246 mg/dL 70-105 (test noam=853) CALCIUM (BEAKER) (test 8.7 mg/dL 8.4-10.2 gswx=578) EGFR (BEAKER) (test 79 mL/min/1.73 sq m ESTIMATED GFR IS NOT bzrc=3084) ACCURATE CREATININE CLEARANCE IN PREDICTING GLOMERULAR FILTRATION RATE. ESTIMATED GFR IS NOT APPLICABLE FOR DIALYSIS PATIENTS. POCT-GLUCOSE [id number] 17:02:00 Test Item Value Reference Range Comments POC-GLUCOSE METER (BEAKER) 235 mg/dL 70-110 TESTED AT [address] (test qhxx=1660) [place] [id number] POCT-GLUCOSE [id number] 12:06:00 Test Item Value Reference Range Comments POC-GLUCOSE METER (BEAKER) 249 mg/dL 70-110 TESTED AT [address] (test qkhd=9022) [place] [address] POCT-GLUCOSE [id number] 09:40:00 Test Item Value Reference Range Comments POC-GLUCOSE METER (BEAKER) 278 mg/dL 70-110 TESTED AT [address] (test tjap=1982) [place] [address] BASIC METABOLIC [id number] 06:14:00 Test Item Value Reference Range Comments SODIUM (BEAKER) (test 141 meq/L 136-145 psel=923) POTASSIUM (BEAKER) (test 4.1 meq/L 3.5-5.1 ciup=961) CHLORIDE (BEAKER) (test 104 meq/L 98-107 ovrc=268) CO2 (BEAKER) (test 30 meq/L 22-29 fbtt=978) BLOOD UREA NITROGEN 14 mg/dL 7-21 (BEAKER) (test ftdp=765) CREATININE (BEAKER) (test 0.70 mg/dL 0.57-1.25 vpff=646) GLUCOSE RANDOM (BEAKER) 146 mg/dL 70-105 (test megc=111) CALCIUM (BEAKER) (test 9.4 mg/dL 8.4-10.2 xfwz=564) EGFR (BEAKER) (test 89 mL/min/1.73 sq m ESTIMATED GFR IS NOT znif=5236) ACCURATE CREATININE CLEARANCE IN PREDICTING GLOMERULAR FILTRATION RATE. ESTIMATED GFR IS NOT APPLICABLE FOR DIALYSIS PATIENTS. [id number] 06:03:00 Test Item Value Reference Range Comments PROTIME (BEAKER) (test gbkq=911) 13.8 seconds 11.7-14.7 INR (BEAKER) (test rmvn=250) 1.1 <=5.9 PARTIAL THROMBOPLASTIN TIME (BEAKER) (test 32.0 seconds 22.5-36.0 rehy=626) RECOMMENDED COUMADIN/WARFARIN INR THERAPY RANGESSTANDARD DOSE: 2.0 - 3.0 Includes: PROPHYLAXIS forvenous thrombosis, systemic embolization; TREATMENT for venous thrombosis and/or pulmonary embolus.HIGH RISK: Target INR is 2.5-3.5 for patients with mechanical heart valves. SCREEN, [id number] 05: 59:00 Test Item Value Reference Range Comments TEST URINE (BEAKER) (test trlo=154) Negative POCT-GLUCOSE [id number] 05:46:00 Test Item Value Reference Range Comments POC-GLUCOSE METER (BEAKER) 140 mg/dL 70-[address] [facility] [address] [facility] (test hspn=8179) [facility] [address] CBC W/PLT COUNT & AUTO [id number] 05:46:00 Test Item Value Reference Range Comments WHITE BLOOD CELL COUNT (BEAKER) (test mvfp=636) 9.6 K/ L 3.5-10.5 RED BLOOD CELL COUNT (BEAKER) (test yavj=956) 5.00 M/ L 3.93-5.22 HEMOGLOBIN (BEAKER) (test flrt=347) 14.0 GM/DL 11.2-15.7 HEMATOCRIT (BEAKER) (test irkl=853) 42.1 % 34.1-44.9 MEAN CORPUSCULAR VOLUME (BEAKER) (test xxvw=464) 84.2 fL 79.4-94.8 MEAN CORPUSCULAR HEMOGLOBIN (BEAKER) (test 28.0 pg 25.6-32.2 lhdg=242) MEAN CORPUSCULAR HEMOGLOBIN CONC (BEAKER) (test 33.3 GM/DL 32.2-35.5 cegz=797) RED CELL DISTRIBUTION WIDTH (BEAKER) (test 13.0 % 11.7-14.4 zsaz=763) PLATELET COUNT (BEAKER) (test hmmd=210) 227 K/CU MM 150-450 MEAN PLATELET VOLUME (BEAKER) (test syko=353) 11.8 fL 9.4-12.3 NUCLEATED RED BLOOD CELLS (BEAKER) (test 0 /100 WBC 0-0 reuc=549) NEUTROPHILS RELATIVE PERCENT (BEAKER) (test 52 % kybf=467) LYMPHOCYTES RELATIVE PERCENT (BEAKER) (test 38 % rhbs=140) MONOCYTES RELATIVE PERCENT (BEAKER) (test 6 % frcw=782) EOSINOPHILS RELATIVE PERCENT (BEAKER) (test 3 % xwjz=598) BASOPHILS RELATIVE PERCENT (BEAKER) (test 1 % woyv=097) NEUTROPHILS ABSOLUTE COUNT (BEAKER) (test 5.03 K/ L 1.56-6.13 vnqv=394) LYMPHOCYTES ABSOLUTE COUNT (BEAKER) (test 3.62 K/ L 1.18-3.74 gcab=485) MONOCYTES ABSOLUTE COUNT (BEAKER) (test 0.62 K/ L 0.24-0.36 ngoj=611) EOSINOPHILS ABSOLUTE COUNT (BEAKER) (test 0.27 K/ L 0.04-0.36 buox=169) BASOPHILS ABSOLUTE COUNT (BEAKER) (test 0.05 K/ L 0.01-0.08 qbje=761) IMMATURE GRANULOCYTES-RELATIVE PERCENT (BEAKER) 1 % 0-1 (test zpvx=4161) POCT-GLUCOSE [id number] 21:27:00 Test Item Value Reference Range Comments POC-GLUCOSE METER (BEAKER) 223 mg/dL 70-110 TESTED AT [address] (test oqpu=5898) [place] [id number] POCT-GLUCOSE [id number] 17:26:00 Test Item Value Reference Range Comments POC-GLUCOSE METER (BEAKER) 223 mg/dL 70-110 TESTED AT [address] (test tjew=7793) [place] [address] BASIC METABOLIC [id number] 16:43:00 Test Item Value Reference Range Comments SODIUM (BEAKER) (test 139 meq/L 136-145 vplj=541) POTASSIUM (BEAKER) (test 4.5 meq/L 3.5-5.1 Specimen slightly faje=371) hemolyzed CHLORIDE (BEAKER) (test 102 meq/L 98-107 byuo=422) CO2 (BEAKER) (test 29 meq/L 22-29 wvzy=010) BLOOD UREA NITROGEN 16 mg/dL 7-21 (BEAKER) (test pkcs=596) CREATININE (BEAKER) (test 0.76 mg/dL 0.57-1.25 Specimen slightly bups=358) hemolyzed GLUCOSE RANDOM (BEAKER) 217 mg/dL 70-105 (test sdup=328) CALCIUM (BEAKER) (test 9.6 mg/dL 8.4-10.2 ykbp=086) EGFR (BEAKER) (test 81 mL/min/1.73 sq m ESTIMATED GFR IS NOT tdfw=4194) ACCURATE CREATININE CLEARANCE IN PREDICTING GLOMERULAR FILTRATION RATE. ESTIMATED GFR IS NOT APPLICABLE FOR DIALYSIS PATIENTS. POCT-GLUCOSE [id number] 09:06:00 Test Item Value Reference Range Comments POC-GLUCOSE METER (BEAKER) 265 mg/dL 70-110 TESTED AT [address] (test mtff=4422) [place] [id number] POCT-GLUCOSE [id number] 00:22:00 Test Item Value Reference Range Comments POC-GLUCOSE METER (BEAKER) 210 mg/dL 70-110 TESTED AT [address] (test jhdy=0861) [place] [address] POCT-GLUCOSE [id number] 20:27:00 Test Item Value Reference Range Comments POC-GLUCOSE METER (BEAKER) 235 mg/dL 70-110 TESTED AT [address] (test ddjd=6108) [place] [address] POCT-GLUCOSE [id number] 17:10:00 Test Item Value Reference Range Comments POC-GLUCOSE METER (BEAKER) 264 mg/dL 70-110 TESTED AT [address] (test jrwu=7531) [place] [id number] POCT-GLUCOSE [id number] 16:00:00 Test Item Value Reference Range Comments POC-GLUCOSE METER (BEAKER) 242 mg/dL 70-110 TESTED AT [address] (test gbxf=2514) [place] [id number] POCT-GLUCOSE [id number] 08:54:00 Test Item Value Reference Range Comments POC-GLUCOSE METER (BEAKER) 224 mg/dL 70-110 TESTED AT [address] (test fdop=0867) [place] [address] POCT-GLUCOSE [id number] 21:30:00 Test Item Value Reference Range Comments POC-GLUCOSE METER (BEAKER) 254 mg/dL 70-110 TESTED AT [address] (test nyff=5850) [place] [address] POCT-GLUCOSE [id number] 17:23:00 Test Item Value Reference Range Comments POC-GLUCOSE METER (BEAKER) 193 mg/dL 70-110 TESTED AT [address] (test uaxh=1953) [place] [address] POCT-GLUCOSE [id number] 11:53:00 Test Item Value Reference Range Comments POC-GLUCOSE METER (BEAKER) 179 mg/dL 70-110 TESTED AT [address] (test tnrm=6563) [place] [address] [id number] 10:15:00 Test Item Value Reference Range Comments CORTISOL, TOTAL (BEAKER) (test giuy=2915) 4.7 ug/dL 3.7-19.4 POCT-GLUCOSE [id number] 08:07:00 Test Item Value Reference Range Comments POC-GLUCOSE METER (BEAKER) 184 mg/dL 70-110 TESTED AT [address] (test fmbq=7785) [place] [address] CT, BRAIN, WITHOUT [id number] 22:07:00FINAL REPORT CT Head without contrast CLINICAL [...] [place] Verified Date/Time: 06/20/2018 22:07:25 Reading Location: [address] Transitional Reading Room POCT-GLUCOSE [id number] 21:00:00 Test Item Value Reference Range Comments POC-GLUCOSE METER (BEAKER) 227 mg/dL 70-110 TESTED AT [address] (test orlc=8332) [place] [address] POCT-GLUCOSE [id number] 16:57:00 Test Item Value Reference Range Comments POC-GLUCOSE METER (BEAKER) 216 mg/dL 70-110 TESTED AT [address] (test qoxm=6591) [place] [id number] POCT-GLUCOSE [id number] 13:11:00 Test Item Value Reference Range Comments POC-GLUCOSE METER (BEAKER) 198 mg/dL 70-110 TESTED AT [address] (test waru=4582) [place] [id number] POCT-GLUCOSE [id number] 07:47:00 Test Item Value Reference Range Comments POC-GLUCOSE METER (BEAKER) 213 mg/dL 70-110 TESTED AT [address] (test uqkx=9989) [place] [address] BASIC METABOLIC [id number] 06:57:00 Test Item Value Reference Range Comments SODIUM (BEAKER) (test 138 meq/L 136-145 psel=141) POTASSIUM (BEAKER) (test 3.9 meq/L 3.5-5.1 yblc=040) CHLORIDE (BEAKER) (test 105 meq/L 98-107 narl=225) CO2 (BEAKER) (test 24 meq/L 22-29 zgzo=575) BLOOD UREA NITROGEN 12 mg/dL 7-21 (BEAKER) (test owuk=594) CREATININE (BEAKER) (test 0.73 mg/dL 0.57-1.25 xbhy=100) GLUCOSE RANDOM (BEAKER) 192 mg/dL 70-105 (test rulb=678) CALCIUM (BEAKER) (test 8.8 mg/dL 8.4-10.2 gjps=090) EGFR (BEAKER) (test 85 mL/min/1.73 sq m ESTIMATED GFR IS NOT dhfq=2587) ACCURATE CREATININE CLEARANCE IN PREDICTING GLOMERULAR FILTRATION RATE. ESTIMATED GFR IS NOT APPLICABLE FOR DIALYSIS PATIENTS. POCT-GLUCOSE [id number] 05:24:00 Test Item Value Reference Range Comments POC-GLUCOSE METER (BEAKER) 192 mg/dL 70-[address] [facility] [address] [facility] (test vllu=4515) [facility] [address] [address], [place] [id number] 01:03:00FINAL REPORT CLINICAL HISTORY: Stroke TECHNIQUE: Initially, [...] Date/ Time: 06/20/2018 01:03:44 Reading Location: [address] Transitional Reading Room [facility], [place], [id number] 01:03:00FINAL REPORT CLINICAL HISTORY: Stroke TECHNIQUE: Initially, [...] Verified Date/ Time: 06/20/2018 01:03:44 Reading Location: [address] Reading Room POCT-GLUCOSE [id number] 00:40:00 Test Item Value Reference Range Comments POC-GLUCOSE METER (BEAKER) 283 mg/dL 70-110 TESTED AT [address] (test fnty=3540) [facility] [address] POCT-GLUCOSE [id number] 21:21:00 Test Item Value Reference Range Comments POC-GLUCOSE METER (BEAKER) 343 mg/dL 70-110 TESTED AT [address] (test hkkz=0638) [facility] [address] SCREEN, [id number] 18:52:00 Test Item Value Reference Range Comments TEST URINE (BEAKER) (test rpew=915) Negative POCT-GLUCOSE [id number] 17:17:00 Test Item Value Reference Range Comments POC-GLUCOSE METER (BEAKER) 287 mg/dL 70-[address] [facility] [address] [facility] (test rtbc=9115) [facility] [address] [id number] 15:59:00 Test Item Value Reference Range Comments RPR SCREEN (BEAKER) (test sckz=152) Nonreactive Nonreactive POCT-GLUCOSE [id number] 15:07:00 Test Item Value Reference Range Comments POC-GLUCOSE METER (BEAKER) 323 mg/dL 70-110 TESTED AT [address] (test jpnw=7033) [place] [id number] T4, [id number] 13:11:00 Test Item Value Reference Range Comments FREE T4 (BEAKER) (test nsjg=809) 0.89 ng/dL 0.70-1.48 HIV-1 ANTIGEN WITH HIV-1/2 [id number] 13:11:00 Test Item Value Reference Range Comments HIV-1 ANTIGEN WITH HIV 1\\T\\2 ANTIBODY (2) Nonreactive Nonreactive (BEAKER) (test bpog=3553) RAPID DRUG SCREEN, [id number] 12:47:00 Test Item Value Reference Range Comments BARBITURATE URINE (BEAKER) (test eatm=514) Negative Negative BENZODIAZEPINE SCREEN URINE (BEAKER) (test Negative Negative dele=491) COCAINE (METAB.) SCREEN (BEAKER) (test slhf=6507) Negative Negative METHADONE SCREEN (BEAKER) (test pufu=5940) Negative Negative OPIATE SCREEN URINE (BEAKER) (test rmtx=532) Negative Negative CANNABINOID SCREEN URINE (BEAKER) (test ekmh=145) Negative Negative AMPH/METHAMPH SCREEN (BEAKER) (test kvuc=0870) Negative Negative PHENCYCLIDINE SCREEN URINE (BEAKER) (test djrq=994) Negative Negative OXYCODONE SCREEN URINE (BEAKER) (test gfjh=3953) Negative Negative DRUG CUTOFF CONC.Cocaine 300 ng/mL Cannabinoid 50 ng/mL Benzodiazepine 200 ng/mLBarbiturate 200 ng/ mLPhencyclidine 25 ng/mLOpiate 300 ng/mLMethadone 300 ng/mLAmphetamine/ 1000 ng/mL MethamphetamineOxycodone 300 ng/mLThis assay provides an unconfirmed qualitative test result for the clinical management of patients in emergency situations. Chain of custody not maintained. Some iheh-ign-ggrsnat medications, as well as adulterants, may cause inaccurate results. Clinical correlation should be applied. A more comprehensive drug screen or confirmation of a detected drug may be performed upon request.POCT-GLUCOSE [id number] 12:37:00 Test Item Value Reference Range Comments POC-GLUCOSE METER (BEAKER) 292 mg/dL 70-[address] [facility] [address] [facility] (test tomj=9391) [facility] [address] HEMOGLOBIN [id number] 12:35:00 Test Item Value Reference Range Comments HEMOGLOBIN A1C (BEAKER) (test hyix=810) 7.9 % 4.3-6.1 OSMOLALITY, [id number] 12:34:00 Test Item Value Reference Range Comments OSMOLALITY, SERUM (BEAKER) (test wbts=927) 310 mOsm/kg 275-295 C-REACTIVE [id number] 12:28:00 Test Item Value Reference Range Comments C-REACTIVE PROTEIN (BEAKER) (test csjs=685) 0.81 mg/dL 0.00-0.50 OSMOLALITY, [id number] 12:22:00 Test Item Value Reference Range Comments OSMOLALITY URINE (BEAKER) (test bobr=970) 247 mOsm/kg 40-1,400 CBC W/PLT COUNT & AUTO [id number] 12:14:00 Test Item Value Reference Range Comments WHITE BLOOD CELL COUNT (BEAKER) (test sdku=860) 15.1 K/ L 3.5-10.5 RED BLOOD CELL COUNT (BEAKER) (test jsjd=597) 5.15 M/ L 3.93-5.22 HEMOGLOBIN (BEAKER) (test dzqx=712) 14.1 GM/DL 11.2-15.7 HEMATOCRIT (BEAKER) (test rskg=087) 42.3 % 34.1-44.9 MEAN CORPUSCULAR VOLUME (BEAKER) (test edqa=069) 82.1 fL 79.4-94.8 MEAN CORPUSCULAR HEMOGLOBIN (BEAKER) (test 27.4 pg 25.6-32.2 evds=388) MEAN CORPUSCULAR HEMOGLOBIN CONC (BEAKER) (test 33.3 GM/DL 32.2-35.5 hpgt=436) RED CELL DISTRIBUTION WIDTH (BEAKER) (test 12.9 % 11.7-14.4 ejry=851) PLATELET COUNT (BEAKER) (test upcr=753) 278 K/CU MM 150-450 MEAN PLATELET VOLUME (BEAKER) (test kgzw=580) 11.5 fL 9.4-12.3 NUCLEATED RED BLOOD CELLS (BEAKER) (test 0 /100 WBC 0-0 qvqu=523) NEUTROPHILS RELATIVE PERCENT (BEAKER) (test 87 % qdmm=958) LYMPHOCYTES RELATIVE PERCENT (BEAKER) (test 10 % riba=678) MONOCYTES RELATIVE PERCENT (BEAKER) (test 3 % hfxy=720) EOSINOPHILS RELATIVE PERCENT (BEAKER) (test 0 % jsxt=663) BASOPHILS RELATIVE PERCENT (BEAKER) (test 0 % ivyd=898) NEUTROPHILS ABSOLUTE COUNT (BEAKER) (test 13.06 K/ L 1.56-6.13 yhdv=646) LYMPHOCYTES ABSOLUTE COUNT (BEAKER) (test 1.51 K/ L 1.18-3.74 ykop=692) MONOCYTES ABSOLUTE COUNT (BEAKER) (test 0.38 K/ L 0.24-0.36 lyty=182) EOSINOPHILS ABSOLUTE COUNT (BEAKER) (test 0.00 K/ L 0.04-0.36 cmtp=873) BASOPHILS ABSOLUTE COUNT (BEAKER) (test 0.02 K/ L 0.01-0.08 hbbj=163) IMMATURE GRANULOCYTES-RELATIVE PERCENT (BEAKER) 1 % 0-1 (test tqqh=3616) POCT-GLUCOSE [id number] 10:30:00 Test Item Value Reference Range Comments POC-GLUCOSE METER (BEAKER) 341 mg/dL 70-110 TESTED AT [address] (test xzjk=9267) [facility] [address] [id number] 06:17:00 Test Item Value Reference Range Comments PROLACTIN (BEAKER) (test uxje=314) 23.34 ng/mL 5.18-26.53 POCT-GLUCOSE [id number] 05:55:00 Test Item Value Reference Range Comments POC-GLUCOSE METER (BEAKER) 285 mg/dL 70-110 TESTED AT [address] (test tdsl=3294) [facility] [address] MR, BRAIN, [id number] 02:25:00Pituitary protocolCr 0.6FINAL REPORT MRI brain with and without contrast Comparison: None. 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 Discussion: Multiplanar MR imaging of the brain and sella was provided mgk-lne-oqtj IV gadolinium administration using T1, T2, FLAIR, [...] MDReport Verified Date/Time: 06/19/2018 02:25:15 Reading Location: [address] Body Reading Room TSH/FREE T4 IF [id number] 00:26:00 Test Item Value Reference Range Comments THYROID STIMULATING HORMONE (BEAKER) (test 0.41 uIU/mL 0.35-4.94 uxwg=319) BASIC METABOLIC [id number] 00:07:00 Test Item Value Reference Range Comments SODIUM (BEAKER) (test 136 meq/L 136-145 wdwd=115) POTASSIUM (BEAKER) (test 4.0 meq/L 3.5-5.1 zfpk=514) CHLORIDE (BEAKER) (test 103 meq/L 98-107 bztq=900) CO2 (BEAKER) (test 20 meq/L 22-29 xyow=444) BLOOD UREA NITROGEN 11 mg/dL 7-21 (BEAKER) (test wooq=077) CREATININE (BEAKER) (test 0.84 mg/dL 0.57-1.25 kija=292) GLUCOSE RANDOM (BEAKER) 357 mg/dL 70-105 (test ycns=271) CALCIUM (BEAKER) (test 9.0 mg/dL 8.4-10.2 klov=106) EGFR (BEAKER) (test 72 mL/min/1.73 sq m ESTIMATED GFR IS NOT qsyj=8067) ACCURATE CREATININE CLEARANCE IN PREDICTING GLOMERULAR FILTRATION RATE. ESTIMATED GFR IS NOT APPLICABLE FOR DIALYSIS PATIENTS. URINALYSIS W/ REFLEX URINE [id number] 23:13:00 Test Item Value Reference Range Comments COLOR (BEAKER) (test frqg=247) Yellow CLARITY (BEAKER) (test tuug=110) Clear SPECIFIC GRAVITY UA (BEAKER) (test lsen=942) 1.011 1.001-1.035 PH UA (BEAKER) (test dtju=911) 5.0 5.0-8.0 PROTEIN UA (BEAKER) (test yszw=578) Negative Negative GLUCOSE UA (BEAKER) (test cvwb=468) >1000 mg/dL Negative KETONES UA (BEAKER) (test qjsk=488) 20 mg/dL Negative BILIRUBIN UA (BEAKER) (test rnpq=114) Negative Negative BLOOD UA (BEAKER) (test dcrq=237) Negative Negative NITRITE UA (BEAKER) (test nudw=766) Negative Negative LEUKOCYTE ESTERASE UA (BEAKER) (test igko=885) Negative Negative UROBILINOGEN UA (BEAKER) (test vxih=585) 0.2 mg/dL 0.2-1.0 RBC UA (BEAKER) (test svpc=625) < /HPF WBC UA (BEAKER) (test ueqr=847) < /HPF SQUAMOUS EPITHELIAL (BEAKER) (test bypn=433) < /HPF SOURCE(BEAKER) (test gbkj=5081)
--- OUTSIDE RECORDS SUMMARY | 2019-03-23 08:59 | XMS REPORT ---
[...] End Status Dosage System Date Date Diflucan [facility] 95216495291 150 MG Orally Feb 20Feb Active 1 tablet Once a day 2017 Nitrofurantoin ND 48393804941 100 MG Orally Feb 20Feb Active 1 capsule Macrocrystal BID 2017 12, with food 2018 or milk GlyBURIDE ND 95443815487 5 MG Orally January 21, Active 1 tablet Once a day 2017 with breakfast or the first main meal of the day Levothyroxine ND 69877871623 88 MCG Oral Active TAKE 1 Sodium TABLET BY MOUTH EVERY MORNING Losartan ND 84035701101 50-12.5 MG February 12, Active 1 tablet Potassium-HCTZ Orally Once a 2018 day Valsartan-Hydroch ND 21861706881 80-12.5 MG Oral Active TAKE 1 lorothiazide TABLET BY MOUTH EVERY DAY Results Name Result Date Reference Range Unit Abnormality Flag THINPREP TIS PAP AND HPV mRNA E6/E7, CHLAMYDIA/N.GONORRHOEAE URINALYSIS AUTO W/O SCOPE (54080) ----PROTEIN N [id number] ----pH 5.5 20180220 ----NIT P [id number] ----CONCEPCION 1+ [id number] ----URO 1.0 [id number] ----SPECIFIC GRAVITY 1.015 20180220 ----BLO TR [id number] ----BILIRUBIN N [id number] ----KETONES N [id number] ----GLUCOSE N [id number] Summary Purpose eClinicalWorks Submission
--- OUTSIDE RECORDS SUMMARY | 2019-03-23 08:59 | XMS REPORT ---
[...] End Date Status Dosage System Date Losartan [facility] 38462059357 50-12.5 MG February 12, Active 1 tablet Potassium-HCTZ Orally Once a 2017 day Results No Known Results Summary Purpose eClinicalWorks Submission
--- OUTSIDE RECORDS SUMMARY | 2019-03-23 09:00 | XMS REPORT ---
[...] Status Dosage System Date Date Losartan ND 40172481967 50 MG Orally Active 1 tablet Potassium Once a day Levothyroxine ND 07406600256 88 MCG Oral Active TAKE 1 Sodium TABLET BY MOUTH EVERY MORNING Amlodipine ND 28442604672 10 MG Orally Active 1 tablet Besylate Once a day Amoxicillin ND 43541441491 500 MG Orally January 30January Active 1 capsule Twice a day 2018 MetFORMIN HCl ER ND 81936133128 750 MG Orally Active 1 tablet Once a day with evening meal Hydrocortisone ND 56863401106 10 MG Orally Active 1 tablet every 12 hrs with food or milk GlyBURIDE ND 83696790008 5 MG Orally BID Active 2 tabs bid with meal Results Name Result Date Reference Range Unit Abnormality Flag HEMOGLOBIN A1C ----A1C 10.5 [id number] Summary Purpose eClinicalWorks Submission
--- OUTSIDE RECORDS SUMMARY | 2019-03-23 09:00 | XMS REPORT ---
[...] Status Dosage System Date Date Amlodipine ND 04175110241 10 MG Orally Active 1 tablet Besylate Once a day MetFORMIN HCl ER ND 22392298669 750 MG Orally Active 1 tablet Once a day with evening meal Levothyroxine ND 69592897604 88 MCG Oral Active TAKE 1 Sodium TABLET BY MOUTH EVERY MORNING Hydrocortisone ND 72377815472 10 MG Orally Active 1 tablet every 12 hrs with food or milk Losartan ND 35096472697 50 MG Orally Active 1 tablet Potassium Once a day GlyBURIDE [facility] [address]-48 5 MG Orally Active 1/2 tablet BID with breakfast or the first main meal of the day Trulicity [facility] 98983426912 0.75mg/0.5ml October Active one SQ once a week , , injection 2018 2018 Fluconazole [facility] 20429323434 150 MG Orally October Active 1 tablet Once a day 2018 2019 Results Name Result Date Reference Range Unit Abnormality Flag HEMOGLOBIN A1C ----A1C 9.8 [id number] Summary Purpose eClinicalWorks Submission
--- OUTSIDE RECORDS SUMMARY | 2019-03-23 09:00 | XMS REPORT ---
[...] End Status Dosage System Date Date Hydrochlorothiazide [facility] 53006800902 12.5 MG Orally Jun 07, Active 1 tablet Once a day 2018 in the morning Levothyroxine Sodium ND 86547100188 88 MCG Oral Active TAKE 1 TABLET BY MOUTH EVERY MORNING Metformin HCl [facility] [address]-68 500 MG Orally Active 1 1/2 bid tablets with a meal Amlodipine Besylate ND 22402075160 10 MG Orally Active 1 tablet Once a day Hydrocortisone ND 93890641374 10 MG Orally Active 1 tablet every 12 hrs with food or milk Losartan [facility] 36967666808 50-12.5 MG Active 1 tablet Potassium-HCTZ Orally Once a day GlyBURIDE [facility] [address]-05 5 MG Orally Active 1/2 tablet BID with breakfast or the first main meal of the day Losartan Potassium [facility] 44916341168 50 MG Orally Active 1 tablet Once a day Results No Known Results Summary Purpose eClinicalWorks Submission
[2019-03-23] MEDS ORDERED: NA CHLORIDE 0.9% 1,000 ML ONE (09:18)
[2019-03-23] MEDS ORDERED: FAMOTIDINE 20 MG/2 ML VIAL IV ONE (09:24)
[2019-03-23] MEDS ORDERED: METOPROLOL TAR 25 MG TAB ONE (09:24)
[2019-03-23] MEDS ORDERED: ASPIRIN 81 MG CHEWABLE TABLET ONE (09:24)
[2019-03-23] MEDS ORDERED: ENOXAPARIN 100 MG/ML SYR SQ ONE (09:25)
[2019-03-23] MEDS ORDERED: ENOXAPARIN 30 MG/0.3 ML SQ ONE (09:26)
[2019-03-23 10:07] LABS: Absolute Lymphocytes (CBC) 2.1 K/uL (0.7-4.9); Basophils % 1.3 % (0-1.3); Lymphocytes % 23.2 % (15.3-44.8); MPV 10.1 fL (7.6-11.3); RBC Red Blood Cell Count 5.24 M/uL (3.86-4.86)
[2019-03-23 10:23] LABS: Protime INR 1.04
[2019-03-23 10:34] LABS: ALT/SGPT 101 U/L (12-78); AST/SGOT 45 U/L (15-37); Albumin 3.4 g/dL (3.4-5.0); Alkaline Phosphatase 87 U/L (45-117); BUN Blood Urea Nitrogen 12 mg/dL (7-18); Bicarbonate 24 mmol/L (21-32); Bilirubin Direct 0.1 mg/dL (0-0.2); Bilirubin Total 0.5 mg/dL (0.2-1.0); Glucose Level 207 mg/dL (74-106); NT PRO-BNP 36 pg/mL (<125); Potassium 4.4 mmol/L (3.5-5.1); Protein, Total 7.3 g/dL (6.4-8.2); Sodium Level 138 mmol/L (136-145); Troponin (Emerg Dept Use Only) < 0.02 ng/mL (0.0-0.045)
--- NOTE | 2019-03-23 10:47 | RAD REPORT ---
EXAM DESCRIPTION: USExtrem Venous W Compress Bil03/23/2019 10:09 am CLINICAL HISTORY: Bilateral leg swelling COMPARISON: 2014 FINDINGS: The common femoral, superficial femoral, popliteal and posterior tibial veins bilaterally are compressible and demonstrate augmentation. Doppler demonstrates good flow. IMPRESSION: No evidence of deep venous thrombosis involving either lower extremity.
[2019-03-23 10:51] LABS: Thyroid Stimulating Hormone 7.09 uIU/mL (0.360-3.740)
--- NOTE | 2019-03-23 10:58 | ER ---
Nurse's Notes [facility] Name: Chantal Stout Age: 48 yrs Sex: Female : 1970 Arrival Date: 03/23/2019 Time: 08:58 Bed 8 Private MD: JOSE MAR Diagnosis: Dyspnea;Chest pain, unspecified;Type 2 diabetes mellitus;Essential (primary) hypertension;Obesity, unspecified;Urinary tract infection, site not specified Presentation: 03/23 09:06 Presenting complaint: Patient states: on my way to [facility] today, i felt short of breath hj and try to gasp for air, denies chest pain; reports leg swelling due to BP meds;. Transition of care: patient was not received from another setting of care. Onset of symptoms was March 23, 2019. Risk Assessment: Do you want to hurt yourself or someone else? Patient reports no desire to harm self or others. Initial Sepsis Screen: Does the patient meet any 2 criteria? No. Patient's initial sepsis screen is negative. Does the patient have a suspected source of infection? No. Patient's initial sepsis screen is negative. Care prior to arrival: None. 09:06 Method Of Arrival: Ambulatory 09:06 Acuity: NOÉ 3 hj Triage Assessment: 09:12 General: Appears in no apparent distress. uncomfortable, Behavior is calm, cooperative, hj appropriate for age. Respiratory: Reports shortness of breath Onset: The symptoms/episode began/occurred this morning, the patient has mild shortness of breath. 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 method Historical: - Allergies: 09:09 Bactrim; 09:09 Cephalexin; 09:09 Codeine; 09:09 Iodine; 09:09 Levaquin; hj 09:09 Sulfa (Sulfonamide Antibiotics); hj - Home Meds: 09:09 amlodipine 10 mg tab 1 tab once daily [Active]; glyburide 5 mg Oral tab 1 tab once hj daily [Active]; hydrocortisone 10 mg Oral tab 1 tab 2 times per day [Active]; levothyroxine 75 mcg tab 1 tab once daily [Active]; losartan 50 mg Oral tab 1 tab once daily [Active]; metformin 750 mg Oral Tb24 1 tab twice a day [Active]; omeprazole 20 mg Oral cpDR 1 cap once daily [Active]; Trulicity subcutaneous [Active]; - PMHx: 09:09 Anemia; Asthma; Diabetes - NIDDM; Hypertension; Hypothyroidism; pituitary tumor- hj surgically removed Jun 24; - PSHx: 09:09 Tonsillectomy; D \T\ C; 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 - Social history:: Smoking status: Patient/guardian denies using tobacco, Patient/guardian denies using alcohol. - Ebola Screening: : Patient negative for fever greater than or equal to 101.5 degrees Fahrenheit, and additional compatible Ebola Virus Disease symptoms Patient denies exposure to infectious person Patient denies travel to an Ebola-affected area in the 21 days before illness onset. - Family history:: not pertinent. Screenin:12 Abuse screen: Denies threats or abuse. Denies injuries from another. Nutritional hj screening: No deficits noted. Tuberculosis screening: No symptoms or risk factors identified. Fall Risk None identified. Assessment: 09:12 Pain: Denies pain. Respiratory: Airway is patent Respiratory effort is even, unlabored, hj Respiratory pattern is regular, symmetrical, Breath sounds are clear. 09:13 Cardiovascular: Rhythm is regular. hj 10:30 Reassessment: Patient and/or family updated on plan of care and expected duration. Pain hj level reassessed. Patient is alert, oriented x 3, equal unlabored respirations, skin warm/dry/pink. awaiting results and POC;. 11:30 Reassessment: Patient and/or family updated on plan of care and expected duration. Pain hj level reassessed. Patient is alert, oriented x 3, equal unlabored respirations, skin warm/dry/pink. 12:12 Reassessment: Patient and/or family updated on plan of care and expected duration. Pain hj level reassessed. Patient is alert, oriented x 3, equal unlabored respirations, skin warm/dry/pink. awaiting for room placement;. 13:14 Reassessment: floor not ready for report, no available nurse to accept pt, all are staffed to 6 pts; CN will call back if they're ready for report;. Vital Signs: 09:07 BP 148 / 98; Pulse 86; Resp 18; Temp 98.1(TE); Pulse Ox 97% on R/A; Weight 127.01 kg; hj Height 5 ft. 4 in. (162.56 cm); Pain 0/10; 10:26 BP 138 / 70; Pulse 93; Resp 18; Temp 98.0; Pulse Ox 97% on R/A; hj 11:00 BP 140 / 67; Pulse 87; Resp 18; Pulse Ox 96% on R/A; hj 12:12 BP 132 / 77; Pulse 82; Resp 18; Pulse Ox 98% on R/A; hj 13:15 BP 130 / 90; Pulse 80; Resp 18; Pulse Ox 100% on R/A; hj 09:07 Body Mass Index 48.06 (127.01 kg, 162.56 cm) hj ED Course: 08:58 Patient arrived in ED. mr 08:58 JOSE MAR is Private Physician. mr 09:00 Bhargav Morales, RN is Primary Nurse. hj 09:03 Marco Vargas MD is Attending Physician. manuela 09:07 Triage completed. hj 09:12 Arm band placed on. hj 09:12 Patient has correct armband on for positive identification. Bed in low position. Call hj light in reach. Side rails up X 1. 09:27 XRAY Chest (1 view) In Process Unspecified. EDMS 09:28 EKG done, by ED staff, reviewed by Marco Vargas MD. ms 10:10 US Extremity Venous W Compression Efren In Process Unspecified. EDMS 10:10 Inserted saline lock: 22 gauge in left wrist, using aseptic technique. Blood collected. hb 10:55 Israel Ramos MD is Hospitalizing Provider. manuela 10:[address] Ramos called on his cell phone and message left to please call eb Dr. Vargas for patient consultation. 12:28 Mark Barker MD is Hospitalizing Provider. manuela 13:43 No provider procedures requiring assistance completed. Patient admitted, IV remains in hj place. intact. Administered Medications: 10:25 Drug: Lovenox 1 mg/kg Route: Sub-Q; Site: abdomen; hj 10:56 Follow up: Response: No adverse reaction hj 10:25 Drug: Lopressor 25 mg Route: PO; hj 10:56 Follow up: Response: No adverse reaction; Blood pressure is lowered hj 10:26 Drug: NS 0.9% 1000 ml Route: IV; Rate: 75 ml/hr; Site: left forearm; hj 13:45 Follow up: IV Status: Infusion continued; Infusion continued upon admission hj 10:26 Drug: Aspirin Chewable Tablet 324 mg Route: PO; hj 10:56 Follow up: Response: No adverse reaction hj 10:26 Drug: Pepcid 20 mg Route: IVP; Site: left forearm; hj 10:56 Follow up: Response: No adverse reaction hj 11:15 Drug: Solu-CORTEF 100 mg Route: IVP; Site: left forearm; hj 12:13 Follow up: Response: No adverse reaction hj 11:15 Drug: Macrobid 100 mg Route: PO; hj 12:13 Follow up: Response: No adverse reaction Outcome: 10:56 Decision to Hospitalize by Provider. manuela 13:43 Admitted to Tele accompanied by tech, family with patient, via stretcher, room 407, with chart, Report called to ALCIDES Sloan 13:43 Condition: stable 13:43 Instructed on the need for admit, Demonstrated understanding of instructions, follow-up care. 13:49 Patient left the ED. Signatures: Dispatcher [employer] EDMarco Seaman MD MD cha Rivera, Mary mr Jason, Devika ms Bhargav Morales RN Mady Marina RN RN hb Botello, Elizabeth eb Corrections: (The following items were deleted from the chart) 11:01 10:26 BP 138 / 70; Pulse 93bpm; Resp 18bpm; Pulse Ox 100% RA; Temp 98.0F; andrew
--- NOTE | 2019-03-23 10:59 | EDPHYS ---
Physician Documentation [facility] Name: Chantal Stout Age: 48 yrs Sex: Female : 1970 Arrival Date: 03/23/2019 Time: 08:58 Bed 8 Private MD: JOSE MAR ED Physician Marco Vargas HPI: 03/23 09:16 This 48 yrs old Female presents to ER via Ambulatory with complaints of manuela Breathing Difficulty. 09:16 The patient has shortness of breath at rest, with light activity. Onset: The manuela symptoms/episode began/occurred just prior to arrival. Duration: The symptoms are continuous, and are unchanged since they started. The patient's shortness of breath is aggravated by nothing, is alleviated by nothing. Associated signs and symptoms: The patient has no apparent associated signs or symptoms. Severity of symptoms: At their worst the symptoms were mild moderate in the emergency department the symptoms are unchanged. The patient has not experienced similar symptoms in the past. [employer]: 13:44 LMP N/A - control method hj Historical: - Allergies: 09:09 Bactrim; hj 09:09 Cephalexin; hj 09:09 Codeine; hj 09:09 Iodine; hj 09:09 Levaquin; hj 09:09 Sulfa (Sulfonamide Antibiotics); hj - Home Meds: 09:09 amlodipine 10 mg tab 1 tab once daily [Active]; glyburide 5 mg Oral tab 1 tab once hj daily [Active]; hydrocortisone 10 mg Oral tab 1 tab 2 times per day [Active]; levothyroxine 75 mcg tab 1 tab once daily [Active]; losartan 50 mg Oral tab 1 tab once daily [Active]; metformin 750 mg Oral Tb24 1 tab twice a day [Active]; omeprazole 20 mg Oral cpDR 1 cap once daily [Active]; Trulicity subcutaneous [Active]; - PMHx: 09:09 Anemia; Asthma; Diabetes - NIDDM; Hypertension; Hypothyroidism; pituitary tumor- hj surgically removed Jun 24; - PSHx: 09:09 Tonsillectomy; D \T\ C; 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 - Social history:: Smoking status: Patient/guardian denies using tobacco, Patient/guardian denies using alcohol. - Ebola Screening: : Patient negative for fever greater than or equal to 101.5 degrees Fahrenheit, and additional compatible Ebola Virus Disease symptoms Patient denies exposure to infectious person Patient denies travel to an Ebola-affected area in the 21 days before illness onset. - Family history:: not pertinent. ROS: 09:16 Constitutional: Negative for fever, chills, and weight loss, Eyes: Negative for injury, manuela pain, redness, and discharge, ENT: Negative for injury, pain, and discharge, Neck: Negative for injury, pain, and swelling, Abdomen/GI: Negative for abdominal pain, nausea, vomiting, diarrhea, and constipation, Back: Negative for injury and pain, : Negative for injury, bleeding, discharge, and swelling, MS/Extremity: Negative for injury and deformity, Skin: Negative for injury, rash, and discoloration, Neuro: Negative for headache, weakness, numbness, tingling, and seizure, Psych: Negative for depression, anxiety, suicide ideation, homicidal ideation, and hallucinations, Allergy/Immunology: Negative for hives, rash, and allergies, Endocrine: Negative for neck swelling, polydipsia, polyuria, polyphagia, and marked weight changes, Hematologic/Lymphatic: Negative for swollen nodes, abnormal bleeding, and unusual bruising. 09:16 Cardiovascular: Positive for chest pain. 09:16 Respiratory: Positive for shortness of breath. Exam: 09:16 Constitutional: This is a well developed, well nourished patient who is awake, alert, manuela and in no acute distress. Head/Face: Normocephalic, atraumatic. Eyes: Pupils equal round and reactive to light, extra-ocular motions intact. Lids and lashes normal. Conjunctiva and sclera are non-icteric and not injected. Cornea within normal limits. Periorbital areas with no swelling, redness, or edema. ENT: Nares patent. No nasal discharge, no septal abnormalities noted. Tympanic membranes are normal and external auditory canals are clear. Oropharynx with no redness, swelling, or masses, exudates, or evidence of obstruction, uvula midline. Mucous membranes moist. Neck: Trachea midline, no thyromegaly or masses palpated, and no cervical lymphadenopathy. Supple, full range of motion without nuchal rigidity, or vertebral point tenderness. No Meningismus. Chest/axilla: Normal chest wall appearance and motion. Nontender with no deformity. No lesions are appreciated. Cardiovascular: Regular rate and rhythm with a normal S1 and S2. No gallops, murmurs, or rubs. Normal PMI, no JVD. No pulse deficits. Respiratory: Lungs have equal breath sounds bilaterally, clear to auscultation and percussion. No rales, rhonchi or wheezes noted. No increased work of breathing, no retractions or nasal flaring. Abdomen/GI: Soft, non-tender, with normal bowel sounds. No distension or tympany. No guarding or rebound. No evidence of tenderness throughout. Back: No spinal tenderness. No costovertebral tenderness. Full range of motion. Skin: Warm, dry with normal turgor. Normal color with no rashes, no lesions, and no evidence of cellulitis. MS/ Extremity: Pulses equal, no cyanosis. Neurovascular intact. Full, normal range of motion. Neuro: Awake and alert, GCS 15, oriented to person, place, time, and situation. Cranial nerves II-XII grossly intact. Motor strength 5/5 in all extremities. Sensory grossly intact. Cerebellar exam normal. Normal gait. Psych: Awake, alert, with orientation to person, place and time. Behavior, mood, and affect are within normal limits. 09:16 Musculoskeletal/extremity: DVT Exam: no pain, no tenderness, negative Homans' sign noted on exam, no appreciated bluish discoloration, no erythema, no increased warmth, swelling. Vital Signs: 09:07 BP 148 / 98; Pulse 86; Resp 18; Temp 98.1(TE); Pulse Ox 97% on R/A; Weight 127.01 kg; Height 5 ft. 4 in. (162.56 cm); Pain 0/10; 10:26 BP 138 / 70; Pulse 93; Resp 18; Temp 98.0; Pulse Ox 97% on R/A; hj 11:00 BP 140 / 67; Pulse 87; Resp 18; Pulse Ox 96% on R/A; 12:12 BP 132 / 77; Pulse 82; Resp 18; Pulse Ox 98% on R/A; 13:15 BP 130 / 90; Pulse 80; Resp 18; Pulse Ox 100% on R/A; 09:07 Body Mass Index 48.06 (127.01 kg, 162.56 cm) MDM: 09:03 Patient medically screened. [facility] 09:19 Data reviewed: vital signs, nurses notes, lab test result(s), EKG, radiologic studies, manuela plain films. 03/23 09:05 Order name: Basic Metabolic Panel; Complete Time: 10:47 [facility] 03/23 09:05 Order name: CBC with Diff; Complete Time: 10:20 [facility] 03/23 09:05 Order name: LFT's; Complete Time: 10:47 [facility] 03/23 09:05 Order name: Magnesium; Complete Time: 10:47 [facility] 03/23 09:05 Order name: NT PRO-BNP; Complete Time: 10:47 [facility] 03/23 09:05 Order name: PT-INR; Complete Time: 10:47 [facility] 03/23 09:05 Order name: Troponin (emerg Dept Use Only); Complete Time: 10:47 [facility] 03/23 09:14 Order name: D-Dimer; Complete Time: 11:03 [facility] 03/23 09:16 Order name: Lipase; Complete Time: 10:47 [facility] 03/23 09:19 Order name: TSH; Complete Time: 11:14 [facility] 03/23 10:32 Order name: Urine Microscopic Only; Complete Time: 11:14 03/23 10:32 Order name: Urine Culture 03/23 10:37 Order name: Urine Dipstick--Ancillary (enter results); Complete Time: 11:14 03/23 10:37 Order name: Urine --Ancillary (enter results); Complete Time: 11:14 03/23 09:05 Order name: XRAY Chest (1 view) [facility] 03/23 09:05 Order name: EKG; Complete Time: 09:06 [facility] 03/23 09:05 Order name: Cardiac monitoring; Complete Time: 09:09 [facility] 03/23 09:05 Order name: EKG - Nurse/Tech; Complete Time: 09:47 [facility] 03/23 09:05 Order name: IV Saline Lock; Complete Time: 10:15 [facility] 03/23 09:05 Order name: Labs collected and sent; Complete Time: 09:47 [facility] 03/23 09:14 Order name: US Extremity Venous W Compression Efren; Complete Time: 10:55 [facility] 03/23 10:56 Order name: T4 Free; Complete Time: 11:14 [facility] 03/23 11:08 Order name: CONS Physician Consult [facility] 03/23 09:05 Order name: O2 Per Protocol; Complete Time: 09: [facility] 03/23 09:05 Order name: O2 Sat Monitoring; Complete Time: : [facility] 03/23 09:05 Order name: Urine Dipstick-Ancillary (obtain specimen); Complete Time: : [facility] Administered Medications: 10:25 Drug: Lovenox 1 mg/kg Route: Sub-Q; Site: abdomen; hj 10:56 Follow up: Response: No adverse reaction hj 10: Drug: Lopressor 25 mg Route: PO; hj 10:56 Follow up: Response: No adverse reaction; Blood pressure is lowered hj 10: Drug: NS 0.9% 1000 ml Route: IV; Rate: 75 ml/hr; Site: left forearm; hj 13:45 Follow up: IV Status: Infusion continued; Infusion continued upon admission hj 10: Drug: Aspirin Chewable Tablet 324 mg Route: PO; hj 10:56 Follow up: Response: No adverse reaction hj 10: Drug: Pepcid 20 mg Route: IVP; Site: left forearm; hj 10:56 Follow up: Response: No adverse reaction hj 11:15 Drug: Solu-CORTEF 100 mg Route: IVP; Site: left forearm; hj 12:13 Follow up: Response: No adverse reaction hj 11:15 Drug: Macrobid 100 mg Route: PO; hj 12:13 Follow up: Response: No adverse reaction hj Disposition: 03/23/19 10:56 Hospitalization ordered by Mark Barker for Observation. Preliminary diagnosis are Dyspnea, Chest pain, unspecified, Type 2 diabetes mellitus, Essential (primary) hypertension, Obesity, unspecified, Urinary tract infection, site not specified. - Bed requested for Telemetry/MedSurg (observation). - Status is Observation. hj - Condition is Fair. - Problem is new. - Symptoms have improved. UTI on Admission? Yes Signatures: Dispatcher [employer] EDMarco Seaman MD MD cha Joaquin, Henry, RN RN Armida Pruitt Corrections: (The following items were deleted from the chart) 11:15 10:56 Hospitalization Ordered by Israel Ramos MD for Observation. Preliminary diagnosis manuela is Dyspnea; Chest pain, unspecified; Type 2 diabetes mellitus; Essential (primary) hypertension; Obesity, unspecified. Bed requested for Telemetry/MedSurg (observation). Status is Observation. Condition is Fair. Problem is new. Symptoms have improved. UTI on Admission? No. [facility] 11:15 11:15 03/23/2019 10:56 Hospitalization Ordered by Israel Ramos MD for Observation. manuela Preliminary diagnosis is Dyspnea; Chest pain, unspecified; Type 2 diabetes mellitus; Essential (primary) hypertension; Obesity, unspecified; Urinary tract infection, site not specified. Bed requested for Telemetry/MedSurg (observation). Status is Observation. Condition is Fair. Problem is new. Symptoms have improved. UTI on Admission? No. [facility] 12:29 11:15 03/23/2019 10:56 Hospitalization Ordered by Israel Ramos MD for Observation. manuela Preliminary diagnosis is Dyspnea; Chest pain, unspecified; Type 2 diabetes mellitus; Essential (primary) hypertension; Obesity, unspecified; Urinary tract infection, site not specified. Bed requested for Telemetry/MedSurg (observation). Status is Observation. Condition is Fair. Problem is new. Symptoms have improved. UTI on Admission? Yes. [facility] 12:32 12:29 03/23/2019 10:56 Hospitalization Ordered by Mark Barker MD for Observation. eb Preliminary diagnosis is Dyspnea; Chest pain, unspecified; Type 2 diabetes mellitus; Essential (primary) hypertension; Obesity, unspecified; Urinary tract infection, site not specified. Bed requested for Telemetry/MedSurg (observation). Status is Observation. Condition is Fair. Problem is new. Symptoms have improved. UTI on Admission? Yes. [facility] 13:49 12:32 03/23/2019 10:56 Hospitalization Ordered by Mark Barker MD for Observation. hj Preliminary diagnosis is Dyspnea; Chest pain, unspecified; Type 2 diabetes mellitus; Essential (primary) hypertension; Obesity, unspecified; Urinary tract infection, site not specified. Bed requested for Telemetry/MedSurg (observation). Status is Observation. Condition is Fair. Problem is new. Symptoms have improved. UTI on Admission? Yes. eb
[2019-03-23 11:05] LABS: Urine Blood NEGATIVE (NEG); Urine Glucose 1+ (NEG); Urine Protein NEGATIVE (NEG)
[2019-03-23 11:05] LABS: Urine Bacteria 20-50 /HPF (<20); Urine Culture Reflex Order NOT NEEDED; Urine Mucus 1+ /HPF (NONE SEEN); Urine RBC <5 /HPF (NONE SEEN)
[2019-03-23] MEDS ORDERED: HYDROCORTISONE SUC 100 MG INJ ONE (11:24)
[2019-03-23] MEDS ORDERED: NITROFURAN MACRO 100 MG CAP PO ONE (11:25)
--- NOTE | 2019-03-23 11:49 | RAD REPORT ---
EXAM DESCRIPTION: Julissa Single View03/23/2019 9:28 am CLINICAL HISTORY: cough COMPARISON: December 2018 FINDINGS: The lungs appear clear of acute infiltrate. The heart is normal size IMPRESSION: No acute abnormalities displayed
[2019-03-23] MEDS ORDERED: MORPHINE 2 MG/ML SYR IV PRN (12:30)
[2019-03-23] MEDS: INSULIN -REGULAR HUMAN 50 UNIT/0.5 ML ML SQ SCH ×3 (13:51→21:10)
[2019-03-23] MEDS ORDERED: D50W 25 GM/50 ML SYRINGE IV PRN (13:51)
[2019-03-23] MEDS ORDERED: ACETAMINOPHEN 325 MG TABLET PO PRN (13:51)
[2019-03-23] MEDS ORDERED: MORPHINE 4 MG/ML SYR IV PRN (13:51)
[2019-03-23] MEDS ORDERED: ONDANSETRON 4 MG/2 ML VIAL IV PRN (13:51)
[2019-03-23] MEDS ORDERED: GLUCAGON 1 MG/VIAL IM PRN (13:51)
--- NOTE | 2019-03-23 14:26 | P.HP ---
Certification for Inpatient Patient admitted to: Observation With expected LOS: <2 Midnights Patient will require the following post-hospital care: None Practitioner: I am a practitioner with admitting privileges, knowledge of patient current condition, hospital course, and medical plan of care. Services: Services provided to patient in accordance with Admission requirements found in Title 42 Section 412.3 of the Code of Federal Regulations Patient History Date of Service: 03/23/19 (Hospitalist) Reason for admission: Shortness of breath History of Present Illness: Patient is 48 years of age prior history of asthma and developed sudden onset of shortness of breath when she went outside he does have a history of asthma uses inhalers on an intermittent basis fell like the humidity history of coronary artery disease denies any chest pain feels better she is patient in the hospital also complained of some chest pressure that has all resolved Allergies cephalexin [Cephalexin] Allergy (Intermediate, Verified 04/29/18 11:06) Hives clavulanic acid Allergy (Intermediate, Verified 03/23/19 14:20) Shortness of breath codeine [Codeine] Allergy (Intermediate, Verified 04/29/18 11:06) Hives iodine Allergy (Intermediate, Verified 04/29/18 11:06) Itching/Hives/Rash sulfamethoxazole [From Bactrim] Allergy (Intermediate, Verified 04/29/18 11:06) Anaphylaxis trimethoprim [From Bactrim] Allergy (Intermediate, Verified 04/29/18 11:06) Anaphylaxis amoxicillin Adverse Reaction (Verified 04/29/18 11:06) Anaphylaxis levofloxacin [From Levaquin] Adverse Reaction (Verified 04/29/18 11:06) Hives Home Medications: Levothyroxine Sodium [Unithroid] 88 mcg PO DAILY 03/19/15 Metformin HCl [Metformin HCl ER] 750 mg PO BID 12/18/16 Losartan/Hydrochlorothiazide [Losartan-Hctz 50-12.5 mg Tab] 1 each PO [id number] 04/29/18 glyBURIDE [Glyburide] 5 mg PO DAILY 04/29/18 - Past Medical/Surgical History Diabetic: Yes -: anxiety -: hypothryroidism -: htn -: dm (diet and exercised controlled) -: obese -: sublixation of spinal column -: scoliosis lower back -: left middle finger surgery -: tonsilectomy -: dnc 1984 -: Pituitary adenoma removed -: Cervical tumor removed - Family History mon -: Hypertension, Diabetes Notes: insulin dependent type two diabetes - Social History Alcohol use: No CD- Drugs: No Caffeine use: No Review of Systems 10-point ROS is otherwise unremarkable Physical Examination - Vital Signs Temperature: 98.0 F Blood Pressure: 130/90 Pulse: 80 Respirations: 18 - Physical Exam General: Alert, In no apparent distress, Oriented x3 HEENT: Atraumatic, Other Respiratory: Clear to auscultation bilaterally Cardiovascular: No edema, Regular rate/rhythm Gastrointestinal: Normal bowel sounds, Soft and benign Musculoskeletal: No clubbing, No swelling Integumentary: No breakdown - Studies Laboratory Data (last 24 hrs) 03/23/19 10:10: Lipase 243 03/23/19 10:10: PT 12.3, INR 1.04 03/23/19 09:48: WBC 9.1, Hgb 14.0, Hct 42.0, Plt Count 187 03/23/19 09:48: Sodium 138, Potassium 4.4, BUN 12, Creatinine 0.74, Glucose 207 H, Magnesium 2.0, Total Bilirubin 0.5, AST 45 H, ALT 101 H, Alkaline Phosphatase 87 Assessment and Plan - Problems (Diagnosis) (1) Shortness of breath Current Visit: Yes Status: Acute Plan: Patient is 48 years of age admitted with acute onset of shortness of breath with a history of asthma I suspect that this is an asthma attack doing much better labs are normal doubt urinary tract infection chest x-ray clear admit for observation I have started her on some Dulera will resume home medications possible discharge tomorrow vital signs satisfactory - Advance Directives Does patient have a Living Will: No Does patient have a Durable POA for Healthcare: No
[2019-03-23] MEDS ORDERED: NITROFURAN MACRO 100 MG CAP PO SCH ×2 (15:00→21:00)
[2019-03-23 15:10] LABS: HDL Cholesterol 51 mg/dL (40-60); LDL Cholesterol, Calculated 87 (<130); Troponin I < 0.02 ng/mL (0.0-0.045)
[2019-03-23 15:17] VITALS: BMI 50.8
[2019-03-23] MEDS: DULERA 200/5 (MOMETASONE/FORMOTEROL) INHALER IH SCH ×2 (15:34→21:00)
[2019-03-23 16:10] LABS: Urine Appearance CLEAR; Urine Bilirubin NEGATIVE (NEG); Urine Blood NEGATIVE (NEG); Urine Color YELLOW; Urine Glucose 2+ (NEG); Urine Protein NEGATIVE (NEG); Urine Urobilinogen 0.2 mg/dL (0.2-1.0); Urine pH 5.5 (5.0-7.0)
[2019-03-23 16:19] LABS: Urine Microscopic Reflex NO UMIC
[2019-03-23] MEDS: METOPROLOL TAR 25 MG TAB PO SCH (17:13)
[2019-03-23] MEDS ORDERED: glyBURIDE 2.5 MG TAB PO SCH (17:47)
[2019-03-23] MEDS: METFORMIN ER 500 MG TAB PO SCH (18:33)
[2019-03-23] MEDS ORDERED: GLYBURIDE 10 MG PO SCH (21:00)
[2019-03-23] MEDS ORDERED: METFORMIN HCL 750 MG PO SCH (21:00)
[2019-03-23] MEDS ORDERED: FAMOTIDINE 20 MG/2 ML VIAL IV SCH (21:00)
[2019-03-23] MEDS ORDERED: HYDROCORTISONE 10 MG TAB PO SCH (21:00)
[2019-03-23] MEDS: HYDROCORTISONE 10 MG TAB PO SCH (21:00)
[2019-03-23] MEDS ORDERED: Enoxaparin 120 MG/0.8 ML SYR SQ SCH (21:00)
[2019-03-23 21:23] VITALS: O2SAT 95
[2019-03-24 04:31] LABS: Absolute Lymphocytes (CBC) 2.2 K/uL (0.7-4.9); Basophils % 0.5 % (0-1.3); Hematocrit 42.4 % (36.0-45.0); Lymphocytes % 27.7 % (15.3-44.8); MPV 9.9 fL (7.6-11.3)
[2019-03-24 04:51] LABS: BUN Blood Urea Nitrogen 9 mg/dL (7-18); Bicarbonate 26 mmol/L (21-32); Glucose Level 216 mg/dL (74-106); Potassium 4.2 mmol/L (3.5-5.1); Sodium Level 141 mmol/L (136-145); Troponin I < 0.02 ng/mL (0.0-0.045)
[2019-03-24] MEDS: METOPROLOL TAR 25 MG TAB PO SCH (05:41)
[2019-03-24] MEDS ORDERED: LEVOTHYROXINE SOD 0.088 MG TAB PO SCH (06:30)
--- NOTE | 2019-03-24 07:45 | RAD REPORT ---
EXAM DESCRIPTION: RAD - Chest Single View - 03/24/2019 6:20 am CLINICAL HISTORY: Chest pain COMPARISON: March 23 TECHNIQUE: AP portable chest image was obtained 0617 hour . FINDINGS: Is lung volumes are low. No new or progressive lung parenchymal process. Heart and vascula ture are normal. No measurable pleural effusion and no pneumothorax. No acute bony abnormality seen. No acute aortic findings suspected. IMPRESSION: No acute cardiopulmonary process. No new or progressive finding from comparison.
[2019-03-24] MEDS: METFORMIN ER 500 MG TAB PO SCH (07:57)
[2019-03-24] MEDS: HYDROCORTISONE 10 MG TAB PO SCH (07:58)
[2019-03-24] MEDS ORDERED: glyBURIDE 2.5 MG TAB PO SCH (08:00)
[2019-03-24] MEDS: DULERA 200/5 (MOMETASONE/FORMOTEROL) INHALER IH SCH (08:00)
[2019-03-24] MEDS: INSULIN -REGULAR HUMAN 50 UNIT/0.5 ML ML SQ SCH (08:05)
--- NOTE | 2019-03-24 08:38 | EKG ---
Test Date: 2019-03-23 Test Time: 09:24:33 Escalator Attendant: MEASUREMENT RESULTS: Intervals: Rate: 84 SD: 146 QRSD: 80 QT: 366 QTc: 432 [place]: P: 50 SD: 146 QRS: 13 T: 21 INTERPRETIVE STATEMENTS: Normal sinus rhythm Normal ECG Compared to ECG 01/02/2019 20:42:58 No significant changes Electronically Signed On 03-24-19 08:36:17 CDT by Ruslan Garibay
[2019-03-24] MEDS ORDERED: ASPIRIN EC 81 MG TAB PO SCH (09:00)
[2019-03-24] MEDS ORDERED: AMLODIPINE 10 MG TAB PO SCH (09:00)
[2019-03-24] MEDS ORDERED: LOSARTAN POTASSIUM 50 MG TABLET PO SCH ×2 (09:00)
[2019-03-24 09:59] VITALS: BP 130/90; TEMP 98
--- NOTE | 2019-03-24 09:59 | P.DS ---
Admission Date: 03/23/19 Discharge Date: 03/24/19 Disposition: ROUTINE DISCHARGE Discharge Condition: GOOD Reason for Admission: Shortness of breath - Problems (1) Shortness of breath Current Visit: Yes Status: Acute Brief History of Present Illness: Patient is 48 years of age prior history of asthma and developed sudden onset of shortness of breath when she went outside he does have a history of asthma uses inhalers on an intermittent basis fell like the humidity history of coronary artery disease denies any chest pain feels better she is patient in the hospital also complained of some chest pressure that has all resolved Hospital Course: Patient did well no new complaints complains of some swelling of her legs presume side effect of the load of being vital signs remained stable shortness of breath improved significantly mildly elevated TSH patient is on replacement thyroxine I had advised her to stop the amlodipine monitor blood pressure closely and to follow up with primary care physician as it caused a lot of lower extremity edema Vital Signs/Physical Exam: Temp Pulse Resp BP Pulse Ox 97.2 F 76 18 125/69 93 03/24/19 08:00 03/24/19 08:00 03/24/19 08:00 03/24/19 08:00 03/24/19 08:00 Laboratory Data at Discharge: WBC 8.0 K/uL (4.3-10.9) 03/24/19 04:15 Hgb 14.0 g/dL (12.0-15.0) 03/24/19 04:15 Hct 42.4 % (36.0-45.0) 03/24/19 04:15 Plt Count 215 K/uL (152-406) 03/24/19 04:15 PT 12.3 SECONDS (9.5-12.5) 03/23/19 10:10 INR 1.04 03/23/19 10:10 Sodium 141 mmol/L (136-145) 03/24/19 04:15 Potassium 4.2 mmol/L (3.5-5.1) 03/24/19 04:15 BUN 9 mg/dL (7-18) 03/24/19 04:15 Creatinine 0.69 mg/dL (0.55-1.3) 03/24/19 04:15 Glucose 216 mg/dL (74-106) H 03/24/19 04:15 Magnesium 2.0 mg/dL (1.8-2.4) 03/23/19 09:48 Total Bilirubin 0.5 mg/dL (0.2-1.0) 03/23/19 09:48 AST 45 U/L (15-37) H 03/23/19 09:48 ALT 101 U/L (12-78) H 03/23/19 09:48 Alkaline Phosphatase 87 U/L (45-117) 03/23/19 09:48 Troponin I < 0.02 ng/mL (0.0-0.045) 03/24/19 04:15 Triglycerides 328 mg/dL (<150) H 03/23/19 14:34 Cholesterol 204 mg/dL (<200) H 03/23/19 14:34 HDL Cholesterol 51 mg/dL (40-60) 03/23/19 14:34 Cholesterol/HDL Ratio 4.00 03/23/19 14:34 Lipase 243 U/L (73-393) 03/23/19 10:10 Home Medications: Levothyroxine Sodium [Unithroid] 88 mcg PO DAILY 03/19/15 Metformin HCl [Metformin HCl ER] 750 mg PO BID 12/18/16 glyBURIDE [Glyburide] 10 mg PO BID 04/29/18 Hydrocortisone [Cortef*] 10 mg PO BID 03/23/19 Losartan Potassium [Cozaar*] 50 mg PO DAILY 03/23/19 Mometasone/Formoterol [Dulera 200 Mcg/5 Mcg Inhaler] 2 puff IH BID #1 inhaler New Medications: Mometasone/Formoterol [Dulera 200 Mcg/5 Mcg Inhaler] 2 puff IH BID #1 inhaler Patient Discharge Instructions: Patient to stop her amlodipine follow up with the primary care physician in a week please give patient the dual air from the hospital 1 or 2 puffs once a twice a day Diet: Regular Activity: Ad blayne
== END 2019-03-24 10:20 | disposition home or self-care (01) ==
LOC: ER 08:56 → ERHOLD 11:05 → 4TH 13:42
PROVIDERS: ADMIT Internal Medicine Sleep Medicine; ATTEND Internal Medicine
DX: R06.02 Shortness of breath (principal); J45.909 Unspecified asthma, uncomplicated; F41.9 Anxiety disorder, unspecified; E03.9 Hypothyroidism, unspecified; I10 Essential (primary) hypertension; E11.9 Type 2 diabetes mellitus without complications; I25.10 Atherosclerotic heart disease of native coronary artery without angina pectoris; E66.9 Obesity, unspecified; Z68.43 Body mass index [BMI] 50.0-59.9, adult
CPT/HCPCS: 36415; 71045; 80048; 80061; 80076; 81003; 81015; 81025; 82962; 83690; 83735; 83880; 84439; 84443; 84484; 85025; 85379; 85610; 87077; 87086; 87088; 87186; 93005; 93970; 96361; 96372; 96374; 96375; 99285; G0378; J1650; J1720; J7030; J7606

== ENCOUNTER 2019-03-31 10:14 | Emergency (ER) | payer SELFPAY ==
--- OUTSIDE RECORDS SUMMARY | 2019-03-31 10:22 | XMS REPORT ---
[...] Date Losartan [facility] [id number] 50-12.5 MG February 12, Active 1 tablet Potassium-HCTZ Orally Once a 2017 day Results No Known Results Summary Purpose eClinicalWorks Submission
--- OUTSIDE RECORDS SUMMARY | 2019-03-31 10:22 | XMS REPORT ---
:1970 Author Organization [facility] Address [address] [place] [address] Dr. Holbrook [address] [place] [address] Care Team Providers Name Role Phone DAJUAN GEORGE Unavailable Unavailable MITCHELL DOBSON Unavailable Unavailable Problems This patient has no known problems. Allergies, Adverse Reactions, Alerts This patient has no known allergies or adverse reactions. Medications This patient has no known medications. Results Test Description Test Time Test Comments Text Results Atomic Results Result Comments TISSUE EXAM 2018-06-28 08:38:00 Surgical Pathology Report Case: [id number] Authorizing Provider: Alex Ruano MD Collected: 06/24/2018801 Ordering Location: [address] Received: 06/24/2018 0809 Service Pathologist: Chon Andino MD Specimens: A) - Tumor, pituitary tumor B) - Tumor, pituitary tumor A.PITUITARY GLAND, TRANSSPHENOIDAL 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 PITUITARY GLAND, TRANSSPHENOIDAL HYPOPHYSECTOMY:NULL CELL ADENOMAENTRAPPED ADENOHYPOPHYSIS Signing Pathologist Direct Phone Line: [phone] signed by Chon Andino MD on 06/28/2018 at 8:38 AMImmunoperoxidase stains performed on the second specimen show that the tumor has no staining for growth hormone, LH, FSH, TSH, prolactin, or ACTH. 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 The MIB-1 proliferation index is less than 1%. 19976 x 2; 85384; 01723; 62709 x 6; 90339Knkjflawp adenoma A. Pituitary tumor; B. Pituitary tumorA. [...] stains. Immunohistochemistry technical testing was performed at [facility], Pathology Laboratory where it was developed [...] 141 mg/dL 70-[address] [facility] [address] [place] [address] nyiu=[phone]) [facility] [address] POCT-GLUCOSE [id number] 12:06:00 Test Item Value Reference Range Comments POC-GLUCOSE METER (BEAKER) 217 mg/dL 70-110 TESTED AT [address] (test lkqh=7376) [facility] [address] BASIC METABOLIC [id number] 07:18:00 Test Item Value Reference Range Comments SODIUM (BEAKER) (test 139 meq/L 136-145 fvht=234) POTASSIUM (BEAKER) (test 4.1 meq/L 3.5-5.1 gnzz=711) CHLORIDE (BEAKER) (test 105 meq/L 98-107 xrzr=909) CO2 (BEAKER) (test 28 meq/L 22-29 zswm=844) BLOOD UREA NITROGEN 11 mg/dL 7-21 (BEAKER) (test krdf=781) CREATININE (BEAKER) (test 0.69 mg/dL 0.57-1.25 elss=057) GLUCOSE RANDOM (BEAKER) 163 mg/dL 70-105 (test imtv=318) CALCIUM (BEAKER) (test 8.6 mg/dL 8.4-10.2 dkye=661) EGFR (BEAKER) (test 91 mL/min/1.73 sq m ESTIMATED GFR IS NOT jzdp=5936) ACCURATE CREATININE CLEARANCE IN PREDICTING GLOMERULAR FILTRATION RATE. ESTIMATED GFR IS NOT APPLICABLE FOR DIALYSIS PATIENTS. CBC W/PLT COUNT & AUTO [id number] 06:49:00 Test Item Value Reference Range Comments WHITE BLOOD CELL COUNT (BEAKER) (test avmf=900) 8.7 K/ L 3.5-10.5 RED BLOOD CELL COUNT (BEAKER) (test irtq=331) 4.82 M/ L 3.93-5.22 HEMOGLOBIN (BEAKER) (test meoo=265) 13.2 GM/DL 11.2-15.7 HEMATOCRIT (BEAKER) (test ondi=570) 40.8 % 34.1-44.9 MEAN CORPUSCULAR VOLUME (BEAKER) (test gwrf=902) 84.6 fL 79.4-94.8 MEAN CORPUSCULAR HEMOGLOBIN (BEAKER) (test 27.4 pg 25.6-32.2 vkrt=894) MEAN CORPUSCULAR HEMOGLOBIN CONC (BEAKER) (test 32.4 GM/DL 32.2-35.5 cgde=479) RED CELL DISTRIBUTION WIDTH (BEAKER) (test 13.2 % 11.7-14.4 wfgy=323) PLATELET COUNT (BEAKER) (test hreg=661) 233 K/CU MM 150-450 MEAN PLATELET VOLUME (BEAKER) (test glyr=123) 11.5 fL 9.4-12.3 NUCLEATED RED BLOOD CELLS (BEAKER) (test 0 /100 WBC 0-0 bgcl=208) NEUTROPHILS RELATIVE PERCENT (BEAKER) (test 65 % dilr=191) LYMPHOCYTES RELATIVE PERCENT (BEAKER) (test 24 % ravo=852) MONOCYTES RELATIVE PERCENT (BEAKER) (test 8 % ljgc=498) EOSINOPHILS RELATIVE PERCENT (BEAKER) (test 2 % bcpo=416) BASOPHILS RELATIVE PERCENT (BEAKER) (test 0 % vmef=544) NEUTROPHILS ABSOLUTE COUNT (BEAKER) (test 5.65 K/ L 1.56-6.13 odhe=509) LYMPHOCYTES ABSOLUTE COUNT (BEAKER) (test 2.07 K/ L 1.18-3.74 iewi=187) MONOCYTES ABSOLUTE COUNT (BEAKER) (test 0.70 K/ L 0.24-0.36 bvga=894) EOSINOPHILS ABSOLUTE COUNT (BEAKER) (test 0.16 K/ L 0.04-0.36 vwsy=131) BASOPHILS ABSOLUTE COUNT (BEAKER) (test 0.02 K/ L 0.01-0.08 zwqy=443) IMMATURE GRANULOCYTES-RELATIVE PERCENT (BEAKER) 1 % 0-1 (test iysc=5929) BASIC METABOLIC [id number] 23:52:00 Test Item Value Reference Range Comments SODIUM (BEAKER) (test 139 meq/L 136-145 foti=517) POTASSIUM (BEAKER) (test 4.0 meq/L 3.5-5.1 Specimen slightly eagi=543) hemolyzed CHLORIDE (BEAKER) (test 103 meq/L 98-107 fase=575) CO2 (BEAKER) (test 28 meq/L 22-29 lfek=517) BLOOD UREA NITROGEN 12 mg/dL 7-21 (BEAKER) (test oarb=744) CREATININE (BEAKER) (test 0.72 mg/dL 0.57-1.25 Specimen slightly ewsw=187) hemolyzed GLUCOSE RANDOM (BEAKER) 193 mg/dL 70-105 (test cvgq=686) CALCIUM (BEAKER) (test 8.6 mg/dL 8.4-10.2 cesb=482) EGFR (BEAKER) (test 86 mL/min/1.73 sq m ESTIMATED GFR IS NOT wrqr=4688) ACCURATE CREATININE CLEARANCE IN PREDICTING GLOMERULAR FILTRATION RATE. ESTIMATED GFR IS NOT APPLICABLE FOR DIALYSIS PATIENTS. SODIUM, RANDOM [id number] 23:49:00 Test Item Value Reference Range Comments SODIUM URINE (BEAKER) (test iejk=647) < meq/L Reference Range: No NormalsCBC W/PLT COUNT & AUTO [id number] 23: 35:00 Test Item Value Reference Range Comments WHITE BLOOD CELL COUNT (BEAKER) (test chzy=224) 9.7 K/ L 3.5-10.5 RED BLOOD CELL COUNT (BEAKER) (test sqss=159) 4.46 M/ L 3.93-5.22 HEMOGLOBIN (BEAKER) (test dckx=047) 12.2 GM/DL 11.2-15.7 HEMATOCRIT (BEAKER) (test qzmo=621) 37.8 % 34.1-44.9 MEAN CORPUSCULAR VOLUME (BEAKER) (test umkf=302) 84.8 fL 79.4-94.8 MEAN CORPUSCULAR HEMOGLOBIN (BEAKER) (test 27.4 pg 25.6-32.2 csqp=703) MEAN CORPUSCULAR HEMOGLOBIN CONC (BEAKER) (test 32.3 GM/DL 32.2-35.5 yalt=061) RED CELL DISTRIBUTION WIDTH (BEAKER) (test 13.0 % 11.7-14.4 mdpg=620) PLATELET COUNT (BEAKER) (test sjve=515) 210 K/CU MM 150-450 MEAN PLATELET VOLUME (BEAKER) (test qszc=757) 11.4 fL 9.4-12.3 NUCLEATED RED BLOOD CELLS (BEAKER) (test 0 /100 WBC 0-0 ugky=617) NEUTROPHILS RELATIVE PERCENT (BEAKER) (test 61 % nuik=646) LYMPHOCYTES RELATIVE PERCENT (BEAKER) (test 28 % vlhl=185) MONOCYTES RELATIVE PERCENT (BEAKER) (test 8 % urhm=672) EOSINOPHILS RELATIVE PERCENT (BEAKER) (test 2 % bmze=080) BASOPHILS RELATIVE PERCENT (BEAKER) (test 0 % akqt=138) NEUTROPHILS ABSOLUTE COUNT (BEAKER) (test 5.87 K/ L 1.56-6.13 amcz=054) LYMPHOCYTES ABSOLUTE COUNT (BEAKER) (test 2.72 K/ L 1.18-3.74 ftvu=591) MONOCYTES ABSOLUTE COUNT (BEAKER) (test 0.80 K/ L 0.24-0.36 gnvh=464) EOSINOPHILS ABSOLUTE COUNT (BEAKER) (test 0.22 K/ L 0.04-0.36 qjul=533) BASOPHILS ABSOLUTE COUNT (BEAKER) (test 0.03 K/ L 0.01-0.08 eqmr=435) IMMATURE GRANULOCYTES-RELATIVE PERCENT (BEAKER) 1 % 0-1 (test xorn=8498) CT, BRAIN, WITHOUT [id number] 22:57:00FINAL REPORT CT Head without contrast CLINICAL [...] Gamboa Verified Date/Time: 06/26/2018 22:57:28 [address] POCT-GLUCOSE [id number] 21:07:00 Test Item Value Reference Range Comments POC-GLUCOSE METER (BEAKER) 211 mg/dL 70-110 TESTED AT [address] (test fqdc=9382) [facility] [address] BASIC METABOLIC [id number] 14:29:00 Test Item Value Reference Range Comments SODIUM (BEAKER) (test 137 meq/L 136-145 qpmd=940) POTASSIUM (BEAKER) (test 3.6 meq/L 3.5-5.1 srtj=684) CHLORIDE (BEAKER) (test 100 meq/L 98-107 zjen=688) CO2 (BEAKER) (test 32 meq/L 22-29 wohs=769) BLOOD UREA NITROGEN 12 mg/dL 7-21 (BEAKER) (test oaln=303) CREATININE (BEAKER) (test 0.71 mg/dL 0.57-1.25 wexi=459) GLUCOSE RANDOM (BEAKER) 182 mg/dL 70-105 (test jfsa=808) CALCIUM (BEAKER) (test 8.7 mg/dL 8.4-10.2 tutw=753) EGFR (BEAKER) (test 88 mL/min/1.73 sq m ESTIMATED GFR IS NOT vqka=0181) ACCURATE CREATININE CLEARANCE IN PREDICTING GLOMERULAR FILTRATION RATE. ESTIMATED GFR IS NOT APPLICABLE FOR DIALYSIS PATIENTS. CBC W/PLT COUNT & AUTO [id number] 14:25:00 Test Item Value Reference Range Comments WHITE BLOOD CELL COUNT (BEAKER) (test xqgx=918) 12.3 K/ L 3.5-10.5 RED BLOOD CELL COUNT (BEAKER) (test cvpo=951) 4.76 M/ L 3.93-5.22 HEMOGLOBIN (BEAKER) (test gefy=976) 13.1 GM/DL 11.2-15.7 HEMATOCRIT (BEAKER) (test fplu=118) 40.6 % 34.1-44.9 MEAN CORPUSCULAR VOLUME (BEAKER) (test fpoz=069) 85.3 fL 79.4-94.8 MEAN CORPUSCULAR HEMOGLOBIN (BEAKER) (test 27.5 pg 25.6-32.2 natt=339) MEAN CORPUSCULAR HEMOGLOBIN CONC (BEAKER) (test 32.3 GM/DL 32.2-35.5 fflk=269) RED CELL DISTRIBUTION WIDTH (BEAKER) (test 13.1 % 11.7-14.4 kybz=077) PLATELET COUNT (BEAKER) (test zkor=859) 254 K/CU MM 150-450 MEAN PLATELET VOLUME (BEAKER) (test gfge=320) 11.1 fL 9.4-12.3 NUCLEATED RED BLOOD CELLS (BEAKER) (test 0 /100 WBC 0-0 vgsw=819) NEUTROPHILS RELATIVE PERCENT (BEAKER) (test 68 % gxoa=861) LYMPHOCYTES RELATIVE PERCENT (BEAKER) (test 24 % jnrz=804) MONOCYTES RELATIVE PERCENT (BEAKER) (test 6 % awyc=348) EOSINOPHILS RELATIVE PERCENT (BEAKER) (test 1 % sxjx=597) BASOPHILS RELATIVE PERCENT (BEAKER) (test 0 % xojp=273) NEUTROPHILS ABSOLUTE COUNT (BEAKER) (test 8.42 K/ L 1.56-6.13 rgev=958) LYMPHOCYTES ABSOLUTE COUNT (BEAKER) (test 2.90 K/ L 1.18-3.74 lndk=369) MONOCYTES ABSOLUTE COUNT (BEAKER) (test 0.79 K/ L 0.24-0.36 jseg=362) EOSINOPHILS ABSOLUTE COUNT (BEAKER) (test 0.07 K/ L 0.04-0.36 gcsx=039) BASOPHILS ABSOLUTE COUNT (BEAKER) (test 0.05 K/ L 0.01-0.08 ykvn=566) IMMATURE GRANULOCYTES-RELATIVE PERCENT (BEAKER) 1 % 0-1 (test rnin=7344) POCT-GLUCOSE [id number] 13:38:00 Test Item Value Reference Range Comments POC-GLUCOSE METER (BEAKER) 219 mg/dL 70-110 TESTED AT [address] (test nfte=4175) [place] [id number] POCT-GLUCOSE [id number] 12:34:00 Test Item Value Reference Range Comments POC-GLUCOSE METER (BEAKER) 193 mg/dL 70-110 TESTED AT [address] (test puqx=2898) [place] [id number] POCT-GLUCOSE [id number] 16:17:00 Test Item Value Reference Range Comments POC-GLUCOSE METER (BEAKER) 244 mg/dL 70-110 TESTED AT [address] (test pqom=5149) [place] [id number] POCT-GLUCOSE [id number] 12:08:00 Test Item Value Reference Range Comments POC-GLUCOSE METER (BEAKER) 229 mg/dL 70-110 TESTED AT [address] (test kfin=7525) [place] [id number] POCT-GLUCOSE [id number] 08:27:00 Test Item Value Reference Range Comments POC-GLUCOSE METER (BEAKER) 280 mg/dL 70-110 TESTED AT [address] (test vjjo=0710) [facility] [address] OSMOLALITY, [id number] 05:16:00 Test Item Value Reference Range Comments OSMOLALITY URINE (BEAKER) (test omtd=634) 340 mOsm/kg 40-1,400 SPECIFIC GRAVITY, [id number] 04:53:00 Test Item Value Reference Range Comments SPECIFIC GRAVITY UA (BEAKER) (test jcgd=857) 1.010 1.001-1.035 POCT-GLUCOSE [id number] 22:29:00 Test Item Value Reference Range Comments POC-GLUCOSE METER (BEAKER) 257 mg/dL 70-110 TESTED AT [address] (test hfsh=8051) [place] [id number] BASIC METABOLIC [id number] 17:49:00 Test Item Value Reference Range Comments SODIUM (BEAKER) (test 137 meq/L 136-145 ratd=834) POTASSIUM (BEAKER) (test 4.6 meq/L 3.5-5.1 ottq=875) CHLORIDE (BEAKER) (test 102 meq/L 98-107 iwns=977) CO2 (BEAKER) (test 26 meq/L 22-29 ktdj=811) BLOOD UREA NITROGEN 14 mg/dL 7-21 (BEAKER) (test ubcp=560) CREATININE (BEAKER) (test 0.78 mg/dL 0.57-1.25 kipg=756) GLUCOSE RANDOM (BEAKER) 246 mg/dL 70-105 (test mfci=059) CALCIUM (BEAKER) (test 8.7 mg/dL 8.4-10.2 dbrk=607) EGFR (BEAKER) (test 79 mL/min/1.73 sq m ESTIMATED GFR IS NOT ddfe=6398) ACCURATE CREATININE CLEARANCE IN PREDICTING GLOMERULAR FILTRATION RATE. ESTIMATED GFR IS NOT APPLICABLE FOR DIALYSIS PATIENTS. POCT-GLUCOSE [id number] 17:02:00 Test Item Value Reference Range Comments POC-GLUCOSE METER (BEAKER) 235 mg/dL 70-110 TESTED AT [address] (test mrye=0588) [place] [id number] POCT-GLUCOSE [id number] 12:06:00 Test Item Value Reference Range Comments POC-GLUCOSE METER (BEAKER) 249 mg/dL 70-110 TESTED AT [address] (test hlan=4014) [place] [address] POCT-GLUCOSE [id number] 09:40:00 Test Item Value Reference Range Comments POC-GLUCOSE METER (BEAKER) 278 mg/dL 70-110 TESTED AT [address] (test uqrq=2223) [place] [address] BASIC METABOLIC [id number] 06:14:00 Test Item Value Reference Range Comments SODIUM (BEAKER) (test 141 meq/L 136-145 rtbl=520) POTASSIUM (BEAKER) (test 4.1 meq/L 3.5-5.1 nknt=745) CHLORIDE (BEAKER) (test 104 meq/L 98-107 ysvc=709) CO2 (BEAKER) (test 30 meq/L 22-29 aqtc=651) BLOOD UREA NITROGEN 14 mg/dL 7-21 (BEAKER) (test jjey=365) CREATININE (BEAKER) (test 0.70 mg/dL 0.57-1.25 sepz=591) GLUCOSE RANDOM (BEAKER) 146 mg/dL 70-105 (test mkhi=642) CALCIUM (BEAKER) (test 9.4 mg/dL 8.4-10.2 cvvw=321) EGFR (BEAKER) (test 89 mL/min/1.73 sq m ESTIMATED GFR IS NOT igsv=3243) ACCURATE CREATININE CLEARANCE IN PREDICTING GLOMERULAR FILTRATION RATE. ESTIMATED GFR IS NOT APPLICABLE FOR DIALYSIS PATIENTS. [id number] 06:03:00 Test Item Value Reference Range Comments PROTIME (BEAKER) (test uphx=133) 13.8 seconds 11.7-14.7 INR (BEAKER) (test dwte=793) 1.1 <=5.9 PARTIAL THROMBOPLASTIN TIME (BEAKER) (test 32.0 seconds 22.5-36.0 swjx=519) RECOMMENDED COUMADIN/WARFARIN INR THERAPY RANGESSTANDARD DOSE: 2.0 - 3.0 Includes: PROPHYLAXIS forvenous thrombosis, systemic embolization; TREATMENT for venous thrombosis and/or pulmonary embolus.HIGH RISK: Target INR is 2.5-3.5 for patients with mechanical heart valves. SCREEN, [id number] 05: 59:00 Test Item Value Reference Range Comments TEST URINE (BEAKER) (test hxwo=281) Negative POCT-GLUCOSE [id number] 05:46:00 Test Item Value Reference Range Comments POC-GLUCOSE METER (BEAKER) 140 mg/dL 70-[address] [facility] [address] [facility] (test yclk=0838) [facility] [address] CBC W/PLT COUNT & AUTO [id number] 05:46:00 Test Item Value Reference Range Comments WHITE BLOOD CELL COUNT (BEAKER) (test lbro=204) 9.6 K/ L 3.5-10.5 RED BLOOD CELL COUNT (BEAKER) (test kkqr=916) 5.00 M/ L 3.93-5.22 HEMOGLOBIN (BEAKER) (test timn=841) 14.0 GM/DL 11.2-15.7 HEMATOCRIT (BEAKER) (test dqla=956) 42.1 % 34.1-44.9 MEAN CORPUSCULAR VOLUME (BEAKER) (test jmae=679) 84.2 fL 79.4-94.8 MEAN CORPUSCULAR HEMOGLOBIN (BEAKER) (test 28.0 pg 25.6-32.2 eguo=185) MEAN CORPUSCULAR HEMOGLOBIN CONC (BEAKER) (test 33.3 GM/DL 32.2-35.5 xawc=718) RED CELL DISTRIBUTION WIDTH (BEAKER) (test 13.0 % 11.7-14.4 oozp=664) PLATELET COUNT (BEAKER) (test mbiu=534) 227 K/CU MM 150-450 MEAN PLATELET VOLUME (BEAKER) (test hfvj=827) 11.8 fL 9.4-12.3 NUCLEATED RED BLOOD CELLS (BEAKER) (test 0 /100 WBC 0-0 tiiu=473) NEUTROPHILS RELATIVE PERCENT (BEAKER) (test 52 % rtxs=054) LYMPHOCYTES RELATIVE PERCENT (BEAKER) (test 38 % icol=259) MONOCYTES RELATIVE PERCENT (BEAKER) (test 6 % uopl=448) EOSINOPHILS RELATIVE PERCENT (BEAKER) (test 3 % tptz=977) BASOPHILS RELATIVE PERCENT (BEAKER) (test 1 % vngm=228) NEUTROPHILS ABSOLUTE COUNT (BEAKER) (test 5.03 K/ L 1.56-6.13 epvx=996) LYMPHOCYTES ABSOLUTE COUNT (BEAKER) (test 3.62 K/ L 1.18-3.74 gmyb=730) MONOCYTES ABSOLUTE COUNT (BEAKER) (test 0.62 K/ L 0.24-0.36 tgme=211) EOSINOPHILS ABSOLUTE COUNT (BEAKER) (test 0.27 K/ L 0.04-0.36 upoz=880) BASOPHILS ABSOLUTE COUNT (BEAKER) (test 0.05 K/ L 0.01-0.08 pwag=334) IMMATURE GRANULOCYTES-RELATIVE PERCENT (BEAKER) 1 % 0-1 (test xjkj=7029) POCT-GLUCOSE [id number] 21:27:00 Test Item Value Reference Range Comments POC-GLUCOSE METER (BEAKER) 223 mg/dL 70-110 TESTED AT [address] (test pbyx=5815) [place] [id number] POCT-GLUCOSE [id number] 17:26:00 Test Item Value Reference Range Comments POC-GLUCOSE METER (BEAKER) 223 mg/dL 70-110 TESTED AT [address] (test kqrq=7938) [place] [address] BASIC METABOLIC [id number] 16:43:00 Test Item Value Reference Range Comments SODIUM (BEAKER) (test 139 meq/L 136-145 gwbn=317) POTASSIUM (BEAKER) (test 4.5 meq/L 3.5-5.1 Specimen slightly siko=672) hemolyzed CHLORIDE (BEAKER) (test 102 meq/L 98-107 dvox=722) CO2 (BEAKER) (test 29 meq/L 22-29 rtgl=509) BLOOD UREA NITROGEN 16 mg/dL 7-21 (BEAKER) (test ltln=468) CREATININE (BEAKER) (test 0.76 mg/dL 0.57-1.25 Specimen slightly nakg=510) hemolyzed GLUCOSE RANDOM (BEAKER) 217 mg/dL 70-105 (test moqm=794) CALCIUM (BEAKER) (test 9.6 mg/dL 8.4-10.2 htrm=604) EGFR (BEAKER) (test 81 mL/min/1.73 sq m ESTIMATED GFR IS NOT tpps=3495) ACCURATE CREATININE CLEARANCE IN PREDICTING GLOMERULAR FILTRATION RATE. ESTIMATED GFR IS NOT APPLICABLE FOR DIALYSIS PATIENTS. POCT-GLUCOSE [id number] 09:06:00 Test Item Value Reference Range Comments POC-GLUCOSE METER (BEAKER) 265 mg/dL 70-110 TESTED AT [address] (test picf=4483) [place] [id number] POCT-GLUCOSE [id number] 00:22:00 Test Item Value Reference Range Comments POC-GLUCOSE METER (BEAKER) 210 mg/dL 70-110 TESTED AT [address] (test mozk=0623) [place] [address] POCT-GLUCOSE [id number] 20:27:00 Test Item Value Reference Range Comments POC-GLUCOSE METER (BEAKER) 235 mg/dL 70-110 TESTED AT [address] (test qnhe=3543) [place] [address] POCT-GLUCOSE [id number] 17:10:00 Test Item Value Reference Range Comments POC-GLUCOSE METER (BEAKER) 264 mg/dL 70-110 TESTED AT [address] (test kszx=5318) [place] [id number] POCT-GLUCOSE [id number] 16:00:00 Test Item Value Reference Range Comments POC-GLUCOSE METER (BEAKER) 242 mg/dL 70-110 TESTED AT [address] (test easw=7152) [place] [id number] POCT-GLUCOSE [id number] 08:54:00 Test Item Value Reference Range Comments POC-GLUCOSE METER (BEAKER) 224 mg/dL 70-110 TESTED AT [address] (test rjvs=2318) [place] [id number] POCT-GLUCOSE [id number] 21:30:00 Test Item Value Reference Range Comments POC-GLUCOSE METER (BEAKER) 254 mg/dL 70-110 TESTED AT [address] (test hrfw=2846) [place] [id number] POCT-GLUCOSE [id number] 17:23:00 Test Item Value Reference Range Comments POC-GLUCOSE METER (BEAKER) 193 mg/dL 70-110 TESTED AT [address] (test ymqr=6105) [place] [address] POCT-GLUCOSE [id number] 11:53:00 Test Item Value Reference Range Comments POC-GLUCOSE METER (BEAKER) 179 mg/dL 70-110 TESTED AT [address] (test ebby=7758) [place] [address] [id number] 10:15:00 Test Item Value Reference Range Comments CORTISOL, TOTAL (BEAKER) (test lslw=7036) 4.7 ug/dL 3.7-19.4 POCT-GLUCOSE [id number] 08:07:00 Test Item Value Reference Range Comments POC-GLUCOSE METER (BEAKER) 184 mg/dL 70-110 TESTED AT [address] (test amou=3415) [place] [address] CT, BRAIN, WITHOUT [id number] 22:07:00FINAL REPORT CT Head without contrast CLINICAL [...] [place] Verified Date/Time: 06/20/2018 22:07:25 Reading Location: [address] Transitional Reading Room POCT-GLUCOSE [id number] 21:00:00 Test Item Value Reference Range Comments POC-GLUCOSE METER (BEAKER) 227 mg/dL 70-110 TESTED AT [address] (test brym=9737) [place] [address] POCT-GLUCOSE [id number] 16:57:00 Test Item Value Reference Range Comments POC-GLUCOSE METER (BEAKER) 216 mg/dL 70-110 TESTED AT [address] (test zkhh=4888) [place] [id number] POCT-GLUCOSE [id number] 13:11:00 Test Item Value Reference Range Comments POC-GLUCOSE METER (BEAKER) 198 mg/dL 70-110 TESTED AT [address] (test iduz=3413) [place] [id number] POCT-GLUCOSE [id number] 07:47:00 Test Item Value Reference Range Comments POC-GLUCOSE METER (BEAKER) 213 mg/dL 70-110 TESTED AT [address] (test wago=0464) [place] [address] BASIC METABOLIC [id number] 06:57:00 Test Item Value Reference Range Comments SODIUM (BEAKER) (test 138 meq/L 136-145 trfh=456) POTASSIUM (BEAKER) (test 3.9 meq/L 3.5-5.1 ivrm=085) CHLORIDE (BEAKER) (test 105 meq/L 98-107 iemp=175) CO2 (BEAKER) (test 24 meq/L 22-29 msfo=333) BLOOD UREA NITROGEN 12 mg/dL 7-21 (BEAKER) (test gfbz=524) CREATININE (BEAKER) (test 0.73 mg/dL 0.57-1.25 dwez=257) GLUCOSE RANDOM (BEAKER) 192 mg/dL 70-105 (test nvuu=595) CALCIUM (BEAKER) (test 8.8 mg/dL 8.4-10.2 ihwv=292) EGFR (BEAKER) (test 85 mL/min/1.73 sq m ESTIMATED GFR IS NOT aqtg=6757) ACCURATE CREATININE CLEARANCE IN PREDICTING GLOMERULAR FILTRATION RATE. ESTIMATED GFR IS NOT APPLICABLE FOR DIALYSIS PATIENTS. POCT-GLUCOSE [id number] 05:24:00 Test Item Value Reference Range Comments POC-GLUCOSE METER (BEAKER) 192 mg/dL 70-[address] [facility] [address] [facility] (test fnjq=6183) [facility] [address] [address], [place] [id number] 01:03:00FINAL REPORT CLINICAL HISTORY: Stroke TECHNIQUE: Initially, [...] Verified Date/ Time: 06/20/2018 01:03:44 Reading Location: [address] Transitional Reading Room [facility], [place], [id number] 01:03:00FINAL REPORT CLINICAL HISTORY: Stroke TECHNIQUE: Initially, [...] Verified Date/ Time: 06/20/2018 01:03:44 Reading Location: [address] Reading Room POCT-GLUCOSE [id number] 00:40:00 Test Item Value Reference Range Comments POC-GLUCOSE METER (BEAKER) 283 mg/dL 70-110 TESTED AT [address] (test kmrd=2173) [facility] [address] POCT-GLUCOSE [id number] 21:21:00 Test Item Value Reference Range Comments POC-GLUCOSE METER (BEAKER) 343 mg/dL 70-110 TESTED AT [address] (test sdku=6233) [facility] [address] SCREEN, [id number] 18:52:00 Test Item Value Reference Range Comments TEST URINE (BEAKER) (test oxcy=869) Negative POCT-GLUCOSE [id number] 17:17:00 Test Item Value Reference Range Comments POC-GLUCOSE METER (BEAKER) 287 mg/dL 70-[address] [facility] [address] [facility] (test cyqc=7198) [facility] [address] [id number] 15:59:00 Test Item Value Reference Range Comments RPR SCREEN (BEAKER) (test agwd=281) Nonreactive Nonreactive POCT-GLUCOSE [id number] 15:07:00 Test Item Value Reference Range Comments POC-GLUCOSE METER (BEAKER) 323 mg/dL 70-110 TESTED AT [address] (test vgds=4183) [place] [id number] T4, [id number] 13:11:00 Test Item Value Reference Range Comments FREE T4 (BEAKER) (test mmyg=492) 0.89 ng/dL 0.70-1.48 HIV-1 ANTIGEN WITH HIV-1/2 [id number] 13:11:00 Test Item Value Reference Range Comments HIV-1 ANTIGEN WITH HIV 1\\T\\2 ANTIBODY (2) Nonreactive Nonreactive (BEAKER) (test wtct=7571) RAPID DRUG SCREEN, [id number] 12:47:00 Test Item Value Reference Range Comments BARBITURATE URINE (BEAKER) (test mjiz=681) Negative Negative BENZODIAZEPINE SCREEN URINE (BEAKER) (test Negative Negative rtkd=494) COCAINE (METAB.) SCREEN (BEAKER) (test gsfu=0214) Negative Negative METHADONE SCREEN (BEAKER) (test piwj=5319) Negative Negative OPIATE SCREEN URINE (BEAKER) (test tfwi=607) Negative Negative CANNABINOID SCREEN URINE (BEAKER) (test jffh=198) Negative Negative AMPH/METHAMPH SCREEN (BEAKER) (test wwzn=7090) Negative Negative PHENCYCLIDINE SCREEN URINE (BEAKER) (test lago=308) Negative Negative OXYCODONE SCREEN URINE (BEAKER) (test bqkg=6109) Negative Negative DRUG CUTOFF CONC.Cocaine 300 ng/mL Cannabinoid 50 ng/mL Benzodiazepine 200 ng/mLBarbiturate 200 ng/ mLPhencyclidine 25 ng/mLOpiate 300 ng/mLMethadone 300 ng/mLAmphetamine/ 1000 ng/mL MethamphetamineOxycodone 300 ng/mLThis assay provides an unconfirmed qualitative test result for the clinical management of patients in emergency situations. Chain of custody not maintained. Some oopq-mtc-onlxxsw medications, as well as adulterants, may cause inaccurate results. Clinical correlation should be applied. A more comprehensive drug screen or confirmation of a detected drug may be performed upon request.POCT-GLUCOSE [id number] 12:37:00 Test Item Value Reference Range Comments POC-GLUCOSE METER (BEAKER) 292 mg/dL 70-[address] [facility] [address] [facility] (test wkzu=2223) [facility] [address] HEMOGLOBIN [id number] 12:35:00 Test Item Value Reference Range Comments HEMOGLOBIN A1C (BEAKER) (test helk=307) 7.9 % 4.3-6.1 OSMOLALITY, [id number] 12:34:00 Test Item Value Reference Range Comments OSMOLALITY, SERUM (BEAKER) (test bfth=131) 310 mOsm/kg 275-295 C-REACTIVE [id number] 12:28:00 Test Item Value Reference Range Comments C-REACTIVE PROTEIN (BEAKER) (test lygr=334) 0.81 mg/dL 0.00-0.50 OSMOLALITY, [id number] 12:22:00 Test Item Value Reference Range Comments OSMOLALITY URINE (BEAKER) (test afnl=936) 247 mOsm/kg 40-1,400 CBC W/PLT COUNT & AUTO [id number] 12:14:00 Test Item Value Reference Range Comments WHITE BLOOD CELL COUNT (BEAKER) (test nszr=556) 15.1 K/ L 3.5-10.5 RED BLOOD CELL COUNT (BEAKER) (test awod=959) 5.15 M/ L 3.93-5.22 HEMOGLOBIN (BEAKER) (test weoz=490) 14.1 GM/DL 11.2-15.7 HEMATOCRIT (BEAKER) (test untp=594) 42.3 % 34.1-44.9 MEAN CORPUSCULAR VOLUME (BEAKER) (test dobq=306) 82.1 fL 79.4-94.8 MEAN CORPUSCULAR HEMOGLOBIN (BEAKER) (test 27.4 pg 25.6-32.2 fwfu=909) MEAN CORPUSCULAR HEMOGLOBIN CONC (BEAKER) (test 33.3 GM/DL 32.2-35.5 sgbu=300) RED CELL DISTRIBUTION WIDTH (BEAKER) (test 12.9 % 11.7-14.4 xvqm=632) PLATELET COUNT (BEAKER) (test yhmn=373) 278 K/CU MM 150-450 MEAN PLATELET VOLUME (BEAKER) (test pgkq=038) 11.5 fL 9.4-12.3 NUCLEATED RED BLOOD CELLS (BEAKER) (test 0 /100 WBC 0-0 mfgd=114) NEUTROPHILS RELATIVE PERCENT (BEAKER) (test 87 % lppz=294) LYMPHOCYTES RELATIVE PERCENT (BEAKER) (test 10 % vhra=235) MONOCYTES RELATIVE PERCENT (BEAKER) (test 3 % kgvc=579) EOSINOPHILS RELATIVE PERCENT (BEAKER) (test 0 % ozct=873) BASOPHILS RELATIVE PERCENT (BEAKER) (test 0 % wbuc=967) NEUTROPHILS ABSOLUTE COUNT (BEAKER) (test 13.06 K/ L 1.56-6.13 lqfx=368) LYMPHOCYTES ABSOLUTE COUNT (BEAKER) (test 1.51 K/ L 1.18-3.74 iznd=332) MONOCYTES ABSOLUTE COUNT (BEAKER) (test 0.38 K/ L 0.24-0.36 jitg=635) EOSINOPHILS ABSOLUTE COUNT (BEAKER) (test 0.00 K/ L 0.04-0.36 itep=441) BASOPHILS ABSOLUTE COUNT (BEAKER) (test 0.02 K/ L 0.01-0.08 ozgx=454) IMMATURE GRANULOCYTES-RELATIVE PERCENT (BEAKER) 1 % 0-1 (test rwto=1329) POCT-GLUCOSE [id number] 10:30:00 Test Item Value Reference Range Comments POC-GLUCOSE METER (BEAKER) 341 mg/dL 70-110 TESTED AT [address] (test fbev=5512) [facility] [id number] 06:17:00 Test Item Value Reference Range Comments PROLACTIN (BEAKER) (test vzaz=189) 23.34 ng/mL 5.18-26.53 POCT-GLUCOSE [id number] 05:55:00 Test Item Value Reference Range Comments POC-GLUCOSE METER (BEAKER) 285 mg/dL 70-110 TESTED AT [address] (test eiwq=8051) [facility] [id number] MR, BRAIN, [id number] 02:25:00Pituitary protocolCr 0.6FINAL REPORT MRI brain with and without contrast Comparison: None. 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 Discussion: Multiplanar MR imaging of the brain and sella was provided [id number] IV gadolinium administration using T1, T2, FLAIR, [...] MDReport Verified Date/Time: 06/19/2018 02:25:15 Reading Location: [address] Body Reading Room TSH/FREE T4 IF [id number] 00:26:00 Test Item Value Reference Range Comments THYROID STIMULATING HORMONE (BEAKER) (test 0.41 uIU/mL 0.35-4.94 haoc=658) BASIC METABOLIC [id number] 00:07:00 Test Item Value Reference Range Comments SODIUM (BEAKER) (test 136 meq/L 136-145 cigx=548) POTASSIUM (BEAKER) (test 4.0 meq/L 3.5-5.1 jwtt=323) CHLORIDE (BEAKER) (test 103 meq/L 98-107 mjgi=854) CO2 (BEAKER) (test 20 meq/L 22-29 rzod=706) BLOOD UREA NITROGEN 11 mg/dL 7-21 (BEAKER) (test jiod=145) CREATININE (BEAKER) (test 0.84 mg/dL 0.57-1.25 oihz=622) GLUCOSE RANDOM (BEAKER) 357 mg/dL 70-105 (test ypem=561) CALCIUM (BEAKER) (test 9.0 mg/dL 8.4-10.2 wmda=384) EGFR (BEAKER) (test 72 mL/min/1.73 sq m ESTIMATED GFR IS NOT ttng=1215) ACCURATE CREATININE CLEARANCE IN PREDICTING GLOMERULAR FILTRATION RATE. ESTIMATED GFR IS NOT APPLICABLE FOR DIALYSIS PATIENTS. URINALYSIS W/ REFLEX URINE [id number] 23:13:00 Test Item Value Reference Range Comments COLOR (BEAKER) (test vcle=421) Yellow CLARITY (BEAKER) (test jcnv=734) Clear SPECIFIC GRAVITY UA (BEAKER) (test hnqv=954) 1.011 1.001-1.035 PH UA (BEAKER) (test ynnn=291) 5.0 5.0-8.0 PROTEIN UA (BEAKER) (test lzys=020) Negative Negative GLUCOSE UA (BEAKER) (test zbtn=502) >1000 mg/dL Negative KETONES UA (BEAKER) (test vtcm=691) 20 mg/dL Negative BILIRUBIN UA (BEAKER) (test nfih=850) Negative Negative BLOOD UA (BEAKER) (test ocfo=323) Negative Negative NITRITE UA (BEAKER) (test khjq=713) Negative Negative LEUKOCYTE ESTERASE UA (BEAKER) (test fcbu=447) Negative Negative UROBILINOGEN UA (BEAKER) (test haje=839) 0.2 mg/dL 0.2-1.0 RBC UA (BEAKER) (test baig=360) < /HPF WBC UA (BEAKER) (test syot=307) < /HPF SQUAMOUS EPITHELIAL (BEAKER) (test pnui=436) < /HPF SOURCE(BEAKER) (test gwze=3677)
--- OUTSIDE RECORDS SUMMARY | 2019-03-31 10:22 | XMS REPORT ---
[...] Dosage System Date Date Atorvastatin Calcium [facility] [id number] 10 MG Oral Active TAKE 1 TABLET BY MOUTH AT BEDTIME. ProAir HFA [facility] [id number] 108 (90 Base) Active USE 1-2 MCG/ACT PUFFS BY Inhalation MOUTH EVERY 4-6 HOURS Levothyroxine Sodium ND [id number] 88 MCG Oral Active TAKE 1 TABLET BY MOUTH EVERY MORNING Valsartan-Hydrochlor ND 72692770042 80-12.5 MG Active TAKE 1 othiazide Oral TABLET BY MOUTH EVERY DAY Benzonatate ND 75531380191 200 MG Oral Active TAKE ONE CAPSULE BY MOUTH 3 TIMES A DAY NEEDED FOR COUGH MethylPREDNISolone ND 56959323310 4 MG Oral Active TAKE 6 TABLETS ON DAY 1 DIRECTED ON PACKAGE AND DECREASE BY 1 TAB EACH DAY FOR A TOTAL OF 6 DAYS GlyBURIDE ND 52114180265 5 MG Orally Iraida Active 1 tablet Once a day 2017 breakfast or the first main meal of the day MetFORMIN HCl ER ND 51874869669 750 MG Oral Active TAKE 1 TABLET BY MOUTH 2 TIMES DAILY BEFORE BREAKFAST AND DINNER. Results No Known Results Summary Purpose eClinicalWorks Submission
--- OUTSIDE RECORDS SUMMARY | 2019-03-31 10:22 | XMS REPORT | Clinical Summary ---
:1970 Author Organization [facility] Address [address] [place] [address] Care Team Providers Name Role Phone Pcp, [...] packet by 3 packet 5 06/25/2018 Active hrvds-zygvxy-ppyaah Nasal route 2 bottle (NEILMED (two) times [...] MD Hoffman, Maria MD 06/18/2018 Travel after 03/30/2018 Family History Medical History Relation Name Comments [...] Taken Blood Pressure 125/71 06/27/2018 12:09 PM MINE ENGINEERING SUPERVISOR Pulse 63 06/27/2018 12:09 PM MINE ENGINEERING SUPERVISOR Temperature 36.2 C (97.1 F) 06/27/2018 12:09 PM MINE ENGINEERING SUPERVISOR Respiratory Rate 18 06/27/2018 12:09 PM MINE ENGINEERING SUPERVISOR Oxygen Saturation 97% 06/27/2018 12:09 PM MINE ENGINEERING SUPERVISOR Inhaled Oxygen Concentration - - Weight 122.5 kg (270 lb) 06/18/2018 9:00 PM MINE ENGINEERING SUPERVISOR Height 162.6 cm (5' 4") 06/18/2018 9:00 PM MINE ENGINEERING SUPERVISOR Body Mass Index 46.35 06/18/2018 9:00 PM MINE ENGINEERING SUPERVISOR Plan of Treatment Not on file Implants Implanted Type Area Patch Sander Device Shelf Model / Identifier Expiration Serial / Date Lot Sealant Durasl Spine 5ml [id number] - [id number] Cement/Fi N/A: [employer] LIF[employer]CI 10/[id number] / Implanted: Qty: 1 on 06/24/2018 by Alex Ruano MD ller/[place] [employer] / sive [id number] Flseal sd Full Strlprep 10ml [id number] - [id number] Cement/Fi N/A: FUNES: BIOSCI 11/18/2019 [id number] / Implanted: Qty: 1 on 06/24/2018 by Alex Ruano MD ller/[employer] [employer] / sive [id number] Graft Matrix Dura 1x3 [id number] - [id number] Neuro N/A: [employer]IC 02/20/2020 [id number] / Implanted: Qty: 1 on 06/24/2018 by Alex Ruano MD Head SURGICAL / NAVIGATION [id number] Procedures Procedure Name Priority Date/Time Associated Comments Diagnosis INTRAOPERATIVE PATH 06/29/2018 1:00 REPORT - SCAN PM MINE ENGINEERING SUPERVISOR RHYTHM STRIP - SCAN 06/29/2018 1:00 PM MINE ENGINEERING SUPERVISOR POCT-GLUCOSE METER Routine 06/27/2018 12:07 Results for this PM MINE ENGINEERING SUPERVISOR procedure are in the results section. POCT-GLUCOSE METER Routine 06/27/2018 7:41 Results for this AM MINE ENGINEERING SUPERVISOR procedure are in the results section. CBC W/PLT COUNT & AUTO Routine 06/27/2018 5:56 Results for this DIFFERENTIAL AM MINE ENGINEERING SUPERVISOR procedure are in the results section. BASIC METABOLIC PANEL Routine 06/27/2018 5:56 Results for this (7) AM MINE ENGINEERING SUPERVISOR procedure are in the results section. CBC W/PLT COUNT & AUTO Routine 06/27/2018 5:56 Results for this DIFFERENTIAL AM MINE ENGINEERING SUPERVISOR procedure are in the results section. CBC W/PLT COUNT & AUTO STAT 06/26/2018 11:18 Results for this DIFFERENTIAL PM MINE ENGINEERING SUPERVISOR procedure are in the results section. CBC W/PLT COUNT & AUTO STAT 06/26/2018 11:18 Results for this DIFFERENTIAL PM MINE ENGINEERING SUPERVISOR procedure are in the results section. BASIC METABOLIC PANEL STAT 06/26/2018 11:18 Results for this (7) PM MINE ENGINEERING SUPERVISOR procedure are in the results section. SODIUM, RANDOM URINE STAT 06/26/2018 11:11 Results for this PM MINE ENGINEERING SUPERVISOR procedure are in the results section. CT BRAIN WITHOUT IV STAT 06/26/2018 10:25 Results for this CONTRAST PM MINE ENGINEERING SUPERVISOR procedure are in the results section. POCT-GLUCOSE METER Routine 06/26/2018 9:01 Results for this PM MINE ENGINEERING SUPERVISOR procedure are in the results section. CBC W/PLT COUNT & AUTO Routine 06/26/2018 1:55 Results for this DIFFERENTIAL PM MINE ENGINEERING SUPERVISOR procedure are in the results section. BASIC METABOLIC PANEL Routine 06/26/2018 1:55 Results for this (7) PM MINE ENGINEERING SUPERVISOR procedure are in the results section. CBC W/PLT COUNT & AUTO Routine 06/26/2018 1:55 Results for this DIFFERENTIAL PM MINE ENGINEERING SUPERVISOR procedure are in the results section. POCT-GLUCOSE METER Routine 06/26/2018 1:33 Results for this PM MINE ENGINEERING SUPERVISOR procedure are in the results section. POCT-GLUCOSE METER Routine 06/26/2018 12:06 Results for this PM MINE ENGINEERING SUPERVISOR procedure are in the results section. POCT-GLUCOSE METER Routine 06/25/2018 4:10 Results for this PM MINE ENGINEERING SUPERVISOR procedure are in the results section. POCT-GLUCOSE METER Routine 06/25/2018 12:02 Results for this PM MINE ENGINEERING SUPERVISOR procedure are in the results section. POCT-GLUCOSE METER Routine 06/25/2018 8:02 Results for this AM MINE ENGINEERING SUPERVISOR procedure are in the results section. OSMOLALITY, URINE STAT 06/25/2018 4:23 Results for this AM MINE ENGINEERING SUPERVISOR procedure are in the results section. SPECIFIC GRAVITY, STAT 06/25/2018 4:23 Results for this URINE AM MINE ENGINEERING SUPERVISOR procedure are in the results section. POCT-GLUCOSE METER Routine 06/24/2018 9:56 Results for this PM MINE ENGINEERING SUPERVISOR procedure are in the results section. POCT-GLUCOSE METER Routine 06/24/2018 4:57 Results for this PM MINE ENGINEERING SUPERVISOR procedure are in the results section. BASIC METABOLIC PANEL STAT 06/24/2018 4:50 Results for this (7) PM MINE ENGINEERING SUPERVISOR procedure are in the results section. POCT-GLUCOSE METER Routine 06/24/2018 11:09 Results for this AM MINE ENGINEERING SUPERVISOR procedure are in the results section. POCT-GLUCOSE METER Routine 06/24/2018 9:38 Results for this AM MINE ENGINEERING SUPERVISOR procedure are in the results section. TISSUE EXAM AP Routine 06/24/2018 8:02 Results for this AM MINE ENGINEERING SUPERVISOR procedure are in the results section. ENDOSCOPIC SINUS 06/24/2018 7:00 Pituitary adenoma SURGERY,REPAIR CSF AM MINE ENGINEERING SUPERVISOR (HCC) [place] Special Needs (STEALTH NAVIGATION, LUMBAR DRAIN SET, LANDMARK CT SCAN ON ) TURBINECTOMY,NASAL 06/24/2018 7:00 AM MINE ENGINEERING SUPERVISOR Pituitary adenoma (HCC) Special Needs (STEALTH NAVIGATION, LUMBAR DRAIN SET, LANDMARK CT SCAN ON ) ENDOSCOPIC SINUS 06/24/2018 7:00 AM MINE ENGINEERING SUPERVISOR Pituitary adenoma SURGERY,ETHMOIDECTOMY W/ (HCC) SPHENOIDOTOMY Special Needs (STEALTH NAVIGATION, LUMBAR DRAIN SET, LANDMARK CT SCAN ON ) PROCEDURE W/ STEALTH 06/24/2018 7:00 AM MINE ENGINEERING SUPERVISOR Pituitary adenoma (HCC) Special Needs (STEALTH NAVIGATION, LUMBAR DRAIN SET, LANDMARK CT SCAN ON ) ENDOSCOPIC CRANIOTOMY,REMOVAL 06/24/2018 7:00 AM MINE ENGINEERING SUPERVISOR Pituitary adenoma ( HCC) TRANSSPHENOIDAL PITUITARY TUMOR Special Needs (STEALTH NAVIGATION, LUMBAR DRAIN SET, LANDMARK CT SCAN ON ) POCT-GLUCOSE METER Routine 06/24/2018 5:42 AM MINE ENGINEERING SUPERVISOR SCREEN, URINE STAT 06/24/2018 5:16 AM MINE ENGINEERING SUPERVISOR BASIC METABOLIC PANEL (7) Routine 06/24/2018 5:16 AM MINE ENGINEERING SUPERVISOR CBC W/PLT COUNT & AUTO Routine 06/24/2018 5:07 AM MINE ENGINEERING SUPERVISOR Results for this DIFFERENTIAL procedure are in the results section. PT/APTT Routine 06/24/2018 5:07 AM MINE ENGINEERING SUPERVISOR CBC W/PLT COUNT & AUTO Routine 06/24/2018 5:07 AM MINE ENGINEERING SUPERVISOR Results for this DIFFERENTIAL procedure are in the results section. POCT-GLUCOSE METER Routine 06/23/2018 9:21 PM MINE ENGINEERING SUPERVISOR POCT-GLUCOSE METER Routine 06/23/2018 4:31 PM MINE ENGINEERING SUPERVISOR BASIC METABOLIC PANEL (7) Routine 06/23/2018 4:13 PM MINE ENGINEERING SUPERVISOR POCT-GLUCOSE METER Routine 06/23/2018 8:30 AM MINE ENGINEERING SUPERVISOR POCT-GLUCOSE METER Routine 06/22/2018 11:34 PM MINE ENGINEERING SUPERVISOR POCT-GLUCOSE METER Routine 06/22/2018 8:21 PM MINE ENGINEERING SUPERVISOR POCT-GLUCOSE METER Routine 06/22/2018 5:07 PM MINE ENGINEERING SUPERVISOR POCT-GLUCOSE METER Routine 06/22/2018 11:49 AM MINE ENGINEERING SUPERVISOR POCT-GLUCOSE METER Routine 06/22/2018 8:30 AM MINE ENGINEERING SUPERVISOR POCT-GLUCOSE METER Routine 06/21/2018 9:09 PM MINE ENGINEERING SUPERVISOR POCT-GLUCOSE METER Routine 06/21/2018 5:20 PM MINE ENGINEERING SUPERVISOR POCT-GLUCOSE METER Routine 06/21/2018 11:06 AM MINE ENGINEERING SUPERVISOR ECHOCARDIOGRAM REPORT - SCAN 06/21/2018 9:21 AM MINE ENGINEERING SUPERVISOR FOLLICLE STIMULATING HORMONE Routine 06/21/2018 9:11 AM MINE ENGINEERING SUPERVISOR Results for this (FSH) procedure are in the results section. INSULIN-LIKE GROWTH FACTOR Routine 06/21/2018 9:11 AM MINE ENGINEERING SUPERVISOR ACTH Routine 06/21/2018 9:11 AM MINE ENGINEERING SUPERVISOR CORTISOL Routine 06/21/2018 9:11 AM MINE ENGINEERING SUPERVISOR POCT-GLUCOSE METER Routine 06/21/2018 7:26 AM MINE ENGINEERING SUPERVISOR CT BRAIN WITHOUT IV CONTRAST TERI 06/20/2018 9:48 PM MINE ENGINEERING SUPERVISOR POCT-GLUCOSE METER Routine 06/20/2018 8:48 PM MINE ENGINEERING SUPERVISOR 2D ECHO W/ DOPPLER Routine 06/20/2018 6:40 PM MINE ENGINEERING SUPERVISOR Results for this (CW/PW/COLOR) procedure are in the results section. POCT-GLUCOSE METER Routine 06/20/2018 4:48 PM MINE ENGINEERING SUPERVISOR POCT-GLUCOSE METER Routine 06/20/2018 1:06 PM MINE ENGINEERING SUPERVISOR POCT-GLUCOSE METER Routine 06/20/2018 7:21 AM MINE ENGINEERING SUPERVISOR POCT-GLUCOSE METER Routine 06/20/2018 5:22 AM MINE ENGINEERING SUPERVISOR BASIC METABOLIC PANEL (7) STAT 06/20/2018 5:08 AM MINE ENGINEERING SUPERVISOR POCT-GLUCOSE METER Routine 06/20/2018 12:[address]INEERING SUPERVISOR [address]/CTA CAROTID TERI 06/19/2018 10:[address]ERING SUPERVISOR [address]/CTA BRAIN TERI 06/19/2018 10:46 PM MINE ENGINEERING SUPERVISOR POCT-GLUCOSE METER Routine 06/19/2018 9:19 PM MINE ENGINEERING SUPERVISOR POCT-GLUCOSE METER Routine 06/19/2018 5:06 PM MINE ENGINEERING SUPERVISOR POCT-GLUCOSE METER Routine 06/19/2018 3:03 PM MINE ENGINEERING SUPERVISOR POCT-GLUCOSE METER Routine 06/19/2018 12:27 PM MINE ENGINEERING SUPERVISOR SCREEN, URINE Routine 06/19/2018 11:54 AM MINE ENGINEERING SUPERVISOR OSMOLALITY, URINE Routine 06/19/2018 11:54 AM MINE ENGINEERING SUPERVISOR RAPID DRUG SCREEN, URINE Routine 06/19/2018 11:54 AM MINE ENGINEERING SUPERVISOR CBC W/PLT COUNT & AUTO Routine 06/19/2018 11:49 AM MINE ENGINEERING SUPERVISOR Results for this DIFFERENTIAL procedure are in the results section. INSULIN-LIKE GROWTH FACTOR Routine 06/19/2018 11:49 AM MINE ENGINEERING SUPERVISOR OSMOLALITY, SERUM Routine 06/19/2018 11:49 AM MINE ENGINEERING SUPERVISOR T4, FREE Routine 06/19/2018 11:49 AM MINE ENGINEERING SUPERVISOR C-REACTIVE PROTEIN Routine 06/19/2018 11:49 AM MINE ENGINEERING SUPERVISOR HIV-1 ANTIGEN WITH HIV-1/2 Routine 06/19/2018 11:49 AM MINE ENGINEERING SUPERVISOR Results for this ANTIBODY procedure are in the results section. RPR Routine 06/19/2018 11:49 AM MINE ENGINEERING SUPERVISOR CBC W/PLT COUNT & AUTO Routine 06/19/2018 11:49 AM MINE ENGINEERING SUPERVISOR Results for this DIFFERENTIAL procedure are in the results section. POCT-GLUCOSE METER Routine 06/19/2018 9:25 AM MINE ENGINEERING SUPERVISOR POCT-GLUCOSE METER Routine 06/19/2018 5:51 AM MINE ENGINEERING SUPERVISOR GROWTH HORMONE Routine 06/19/2018 3:49 AM MINE ENGINEERING SUPERVISOR LUTEINIZING HORMONE (LH) Routine 06/19/2018 3:49 AM MINE ENGINEERING SUPERVISOR ACTH Routine 06/19/2018 3:49 AM MINE ENGINEERING SUPERVISOR PROLACTIN Routine 06/19/2018 3:49 AM MINE ENGINEERING SUPERVISOR MR BRAIN WITHOUT & WITH IV STAT 06/19/2018 2:25 AM MINE ENGINEERING SUPERVISOR Results for this CONTRAST procedure are in the results section. HEMOGLOBIN A1C Routine 06/19/2018 12:39 AM MINE ENGINEERING SUPERVISOR TSH/FREE T4 IF INDICATED Routine 06/18/2018 11:32 PM MINE ENGINEERING SUPERVISOR BASIC METABOLIC PANEL (7) STAT 06/18/2018 11:32 PM MINE ENGINEERING SUPERVISOR URINALYSIS W/ REFLEX URINE Routine 06/18/2018 10:27 PM MINE ENGINEERING SUPERVISOR Results for this CULTURE procedure are in the results section. after 03/30/2018 Results INTRAOPERATIVE PATH REPORT - SCAN (06/29/2018 1:00 PM MINE ENGINEERING SUPERVISOR) Narrative Performed At RHYTHM STRIP - SCAN (06/29/2018 1:00 PM MINE ENGINEERING SUPERVISOR) Narrative Performed At POC-Glucose meter (06/27/2018 12:07 PM MINE ENGINEERING SUPERVISOR)Only the most recent of37 resultswithin the time period is included. POC-Glucose Meter 141 (H)Comment: TESTED AT 70 - 110 mg/dL [facility] [address] [facility] [address] Specimen Blood Performing Organization Address City/State/Zipcode Phone Number [address] [phone] CENTER CBC with platelet count + automated diff (06/27/2018 5:56 AM MINE ENGINEERING SUPERVISOR)Only the most recent of5 resultswithin the time period is included. WBC 8.7 3.5 - 10.5 K/L [facility] RBC 4.82 3.93 - 5.22 M/L [facility] Hemoglobin 13.2 11.2 - 15.7 GM/DL [facility] Hematocrit 40.8 34.1 - 44.9 % [facility] MCV 84.6 79.4 - 94.8 fL [facility] MCH 27.4 25.6 - 32.2 pg [facility] MCHC 32.4 32.2 - 35.5 GM/DL [facility] RDW 13.2 11.7 - 14.4 % [facility] Platelets 233 150 - 450 K/CU MM [facility] MPV 11.5 9.4 - 12.3 fL [facility] nRBC 0 0 - 0 /100 WBC [facility] % Neutros 65 % [facility] % Lymphs 24 % [facility] % Monos 8 % [facility] % Eos 2 % [facility] % Baso 0 % [facility] # Neutros 5.65 1.56 - 6.13 K/L [facility] # Lymphs 2.07 1.18 - 3.74 K/L [facility] # Monos 0.70 (H) 0.24 - 0.36 K/L [facility] # Eos 0.16 0.04 - 0.36 K/L [facility] # Baso 0.02 0.01 - 0.08 K/L [facility] Immature Granulocytes-Relative 1 0 - 1 % [facility] Specimen Blood Performing Organization Address City/State/Zipcode Phone Number [facility] [address] [place] [address] CENTER Basic Metabolic Panel (06/27/2018 5:56 AM MINE ENGINEERING SUPERVISOR)Only the most recent of8 resultswithin the time period is included. Sodium 139 136 - 145 meq/L [facility] Potassium 4.1 3.5 - 5.1 meq/L [facility] Chloride 105 98 - 107 meq/L [facility] CO2 28 22 - 29 meq/L [facility] BUN 11 7 - 21 mg/dL [facility] Creatinine 0.69 0.57 - 1.25 mg/dL [facility] Glucose 163 (H) 70 - 105 mg/dL [facility] Calcium 8.6 8.4 - 10.2 mg/dL [facility] EGFR 91Comment: ESTIMATED GFR IS mL/min/1.73 sq m [facility] NOT ACCURATE CREATININE [facility] CLEARANCE IN PREDICTING GLOMERULAR FILTRATION RATE. ESTIMATED GFR IS NOT APPLICABLE FOR DIALYSIS PATIENTS. Specimen Blood Performing Organization Address City/State/[facility] Phone Number [address] [phone] [place] Sodium, random urine (06/26/2018 11:11 PM MINE ENGINEERING SUPERVISOR) Sodium Urine <20 meq/L [facility] Specimen Urine Narrative Performed At Reference Range: No Normals [facility] Performing Organization Address [facility] [place]/[facility] Phone Number [address] [place] [address] brain without IV contrast (06/26/2018 10:25 PM MINE ENGINEERING SUPERVISOR)Only the most recent of2 resultswithin the time period is included. Specimen Narrative Performed At FINAL REPORT [employer] [facility] CT Head without contrast CLINICAL HISTORY: [...] MD Report Verified Date/Time:06/26/2018 22:57:28 Reading Location: [address] Transitional Reading Room Procedure Note Interface, External Ris In - 06/26/2018 10:59 PM MINE ENGINEERING SUPERVISOR FINAL REPORT CT Head without contrast [...] Report Verified Date/Time: 06/26/2018 22:57:28 Reading Location: [address] Transitional Reading Room Performing Organization Address City/State/Zipcode Phone Number GE RIS Specific gravity, urine (06/25/2018 4:23 AM MINE ENGINEERING SUPERVISOR) Specific [place], UA 1.010 1.001 - 1.035 [facility] Specimen Urine Performing Organization Address City/State/Zipcode Phone Number [facility] [address] [place] [address] [place] Osmolality, urine (06/25/2018 4:23 AM MINE ENGINEERING SUPERVISOR)Only the most recent of2 resultswithin the time period is included. Osmolality, Ur 340 40-1,400 mOsm/kg [facility] Specimen Urine Performing Organization Address City/[facility] [place]/[facility] Phone Number [facility] [address] [place] [address] [place] Tissue Exam (06/24/2018 8:02 AM MINE ENGINEERING SUPERVISOR) Case Report Surgical Pathology Report Case: [id number] [facility] Authorizing Provider:Alex Ruano MD Collected: 06/24/2018 0802 [facility] Ordering Location: [address] Received: 06/24/2018 0809 CENTER Service Pathologist: Chon Caraballo MD Specimens: A) - Tumor, pituitary tumor B) - Tumor, pituitary tumor DIAGNOSIS A.PITUITARY GLAND, TRANSSPHENOIDAL HYPOPHYSECTOMY: [facility] CELL ADENOMA INVADING RESPIRATORY [facility] B. PITUITARY GLAND, TRANSSPHENOIDAL HYPOPHYSECTOMY: NULL CELL ADENOMA ENTRAPPED ADENOHYPOPHYSIS Signing Pathologist Direct Phone Line: [phone] COMMENT Immunoperoxidase stains [facility] performed on the second [facility] MEDICAL specimen show that the tumor CENTER has no staining for growth hormone, LH, FSH, TSH, prolactin, or ACTH. 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 The MIB-1 proliferation index is less than 1%. CPT Code(s) 52249 x 2; 81809; 03895; 23114 [facility] x 6; 89068 [facility] CLINICAL HISTORY Pituitary adenoma [facility] SPECIMEN SOURCE A. Pituitary tumor; B. [facility] Pituitary tumor [facility] GROSS DESCRIPTION A. The specimen is received fresh for frozen section diagnosis and labeled "pituitary tumor" and consists of a single fragment of tariq -red soft tissue measuring 0.5 cm in greatest dimension submitted ent [facility] for frozen section diagnosis, and touch preps are performed. CG/ew [facility] B. Received fresh labeled "tumor", description "pituitary tumor" is a 2.0 x 1.0 x 0.3 cm aggregate of pink-tariq to hannah-white rubbery friable soft tissue. The specimen is entirely submitted in cassette B1. DB/pl INTRAOPERATIVE FROZEN SECTION DIAGNOSIS, PITUITARY TUMOR: [facility] CONSULTATION ADENOMA EXTENDING INTO RESPIRATORY [place] PER DR. CARABALLO [facility] MICROSCOPIC DESCRIPTION Performed on A and B [facility] SPECIAL STUDIES The interpretation of this case included the use of immunohistochemistry or special stains. [facility] Immunohistochemistry technical testing was performed at [facility], Pathology Laboratory where it was developed [...] Tumor Performing Organization Address City/State/Zipcode Phone Number [facility] [address] [place] [address] CENTER Screen, urine (06/24/2018 5:16 AM MINE ENGINEERING SUPERVISOR)Only the most recent of2 resultswithin the time period is included. Preg Test, Ur Negative [facility] Specimen Urine Performing Organization Address City/[facility] [place]/Zipcode Phone Number [facility] [address] [place] [address] CENTER PT/aPTT (06/24/2018 5:07 AM MINE ENGINEERING SUPERVISOR) Protime 13.8 11.7 - 14.7 seconds [facility] INR 1.1 <=5.9 [facility] PTT 32.0 22.5 - 36.0 seconds [facility] Specimen Blood Narrative Performed At RECOMMENDED COUMADIN/WARFARIN INR THERAPY [facility] RANGES STANDARD DOSE: 2.0 - 3.0 Includes: PROPHYLAXIS for venous thrombosis, systemic embolization; TREATMENT for venous thrombosis and/or pulmonary embolus. HIGH RISK: Target INR is 2.5-3.5 for patients with mechanical heart valves. Performing Organization Address [facility] [place]/[facility] Cent[facility]ode Phone Number [address] [address] [place] ECHOCARDIOGRAM REPORT - SCAN (06/21/2018 9:21 AM MINE ENGINEERING SUPERVISOR) Narrative Performed At Cortisol (06/21/2018 9:11 AM MINE ENGINEERING SUPERVISOR) Cortisol, Total 4.7 3.7 - 19.4 ug/dL [facility] Specimen Blood Performing Organization Address City/[facility] [place]/[facility] Center[facility] Phone Number [address] [address] CENTER Insulin-like growth factor (06/21/2018 9:11 AM MINE ENGINEERING SUPERVISOR)Only the most recent of2 resultswithin the time period is included. Igf-1(Somatomedin-C) 36 (L) 52 - 328 ng/mL [facility] Z-Score Male: DNR [facility] Z-Score Female: -2.6 (L) -2.0 - 2.0 SD [facility] Comment: [facility]POR[facility] This test was developed and its analytical performance characteristics have been determined by [facility]. It has not been cleared or approved by FDA. This assay has been validated pursuant to the CLIA regulations and is used for clinical purposes. Specimen Blood Narrative Performed At Performing Lab [facility] [employer] [address] [address] Sixto Rodrigez MD, PhD, ANABELL Performing Organization Address [facility] [place]/[facility] [place] Number [place] [address] [address] [place] [address] [employer] [facility] ACTH (06/21/2018 9:11 AM MINE ENGINEERING SUPERVISOR)Only the most recent of2 resultswithin the time period is included. ACTH 17 6 - 50 pg/mL [facility] Comment: Reference range applies only to the specimens collected between 7am-10am. Specimen Blood Narrative Performed At Performing Lab [employer] [address] Sixto Rodrigez MD, PhD, ANABELL Performing Organization Address [facility] [place] [address] [address] [place] [address] [employer] [facility] Follicle stimulating hormone (FSH) (06/21/2018 9:11 AM MINE ENGINEERING SUPERVISOR) Fsh 2.3 mIU/mL [employer] Comment: Adult female reference ranges for FSH: Follicular Phase: 2.5- 10.2 mIU/mL Mid-Cycle:3.1- 17.7 mIU/mL Luteal Phase: 1.5-9.1 mIU/mL Postmenopausal:23.0-116.3 mIU/mL Children (<18 Years Old): FSH reference ranges established on post-pubertal patient population. Reference range not established for pre-pubertal patients using this assay. For pre-pubertal patients, the LMN-1 FSH, Pediatrics assay is recommended (test code 64120). Specimen Blood Narrative Performed At Performing Lab [employer] [address] [address] Sixto Rodrigez MD, PhD, ANABELL Performing Organization Address [facility] Phone Number [employer] 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 Elaina Grajeda [facility] Field Assessor Tony Fernandez Interpreting Tarik Domínguez MD Procedure [...] External Ris In - 06/21/2018 8:37 AM MINE ENGINEERING SUPERVISOR Transthoracic Echocardiography Report (TTE) Demographics Patient Name VY STOUT Date of Study 06/20/2018 Gender Female Visit Number [id number] Race Unknown Room Number 2251 Number Date of 1970 Referring Physician Althea Mireles MD Age 48 year(s) 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 Elaina Grajeda RDCS Field Assessor Ethan Rowell Physician Procedure Type of Study [...] MKCKESSON CPACS CTA carotid (06/19/2018 10:46 PM MINE ENGINEERING SUPERVISOR) Specimen Narrative Performed At FINAL REPORT [facility] [facility] CLINICAL HISTORY: Stroke TECHNIQUE: [...] MD Report Verified Date/Time:06/20/2018 01:03:44 Reading Location: [address] Transitional Reading Room Procedure Note Interface, External Ris In - 06/20/2018 1:05 AM MINE ENGINEERING SUPERVISOR FINAL REPORT CLINICAL HISTORY: Stroke TECHNIQUE: [...] Report Verified Date/Time: 06/20/2018 01:03:44 Reading Location: [address] Transitional Reading Room Performing Organization Address City/State/Zipcode Phone Number Naviswiss CTA brain (06/19/2018 10:46 PM MINE ENGINEERING SUPERVISOR) Specimen Narrative Performed At FINAL REPORT CRITICAL [employer]CHN[employer]IES [facility] CLINICAL HISTORY: Stroke TECHNIQUE: [...] MD Report Verified Date/Time:06/20/2018 01:03:44 Reading Location: [address] Transitional Reading Room Procedure Note Interface, External Ris In - 06/20/2018 1:05 AM MINE ENGINEERING SUPERVISOR FINAL REPORT CLINICAL HISTORY: Stroke TECHNIQUE: [...] Report Verified Date/Time: 06/20/2018 01:03:44 Reading Location: [address] Transitional Reading Room Performing Organization Address City/State/Zipcode Phone Number RIS Rapid drug screen, urine (06/19/2018 11:54 AM MINE ENGINEERING SUPERVISOR) Barbiturate Screen Negative Negative [facility] Benzodiazepine Screen Negative Negative [facility] Cocaine (Metab.) Screen Negative Negative [facility] Methadone Screen Negative Negative [facility] Opiate Screen Negative Negative [facility] Cannabinoid Screen Negative Negative [facility] Amph/Methamph Screen Negative Negative [facility] Phencyclidine Screen Negative Negative [facility] Oxycodone Screen Negative Negative [facility] Specimen Urine Narrative Performed At [facility] CONC. Cocaine 300 ng/mL Aavpkjhiazi50 ng/mL Myonfkcnkzxufo803 ng/mL Barbiturate 200 ng/mL Trthiwdgbhhsh29 ng/mL Gtsbem981 ng/mL Methadone 300 ng/mL Amphetamine/ 1000 ng/mL Methamphetamine Oxycodone 300 ng/mL This assay provides an unconfirmed qualitative test result for the clinical management of patients in emergency situations. Chain of custody not maintained. Some iuxz-mnk-wybblva medications, as well as adulterants, may cause inaccurate results. Clinical correlation should be applied. A more comprehensive drug screen or confirmation of a detected drug may be performed upon request. Performing Organization Address City/[facility] Phone Number [address] [address] CENTER HIV-1 Antigen with HIV-1/2 Antibody (06/19/2018 11:49 AM MINE ENGINEERING SUPERVISOR) HIV-1 Antigen with HIV 1&2 Nonreactive Nonreactive [facility] Specimen Blood Performing Organization Address [facility] Phone Number [address] [address] [phone] CENTER C-Reactive Protein (06/19/2018 11:49 AM MINE ENGINEERING SUPERVISOR) CRP 0.81 (H) 0.00 - 0.50 mg/dL [facility] Specimen Blood Performing Organization Address City/[facility]/Zipcode Phone Number [address] [address] [phone] CENTER RPR (06/19/2018 11:49 AM MINE ENGINEERING SUPERVISOR) RPR Nonreactive Nonreactive [facility] Specimen Blood Performing Organization Address [facility] Phone Number [address] [address] CENTER T4, free (06/19/2018 11:49 AM MINE ENGINEERING SUPERVISOR) Free T4 0.89 0.70 - 1.48 ng/dL [facility] Specimen Blood Performing Organization Address City/[facility]/Zipcode Phone Number [address] [address] CENTER Osmolality, serum (06/19/2018 11:49 AM MINE ENGINEERING SUPERVISOR) Osmolality Serum 310 (H) 275 - 295 mOsm/kg [facility] Specimen Blood Performing Organization Address City/State/Zipcode Phone Number [address] [address] CENTER Prolactin (06/19/2018 3:49 AM MINE ENGINEERING SUPERVISOR) Prolactin 23.34 5.18 - 26.53 ng/mL [facility] Specimen Blood Performing Organization Address [facility] Phone Number [address] [phone] [place] Growth hormone (06/19/2018 3:49 AM MINE ENGINEERING SUPERVISOR) Growth Hormone <0.1 < OR=7.1 ng/mL [...] Guideline. J Clin Endocrinol Metab 2014; 99: 9333-3414]. Using GH stimulation testing, the following result at any point in the timed sequence makes GH deficiency unlikely: Adults (> or=20 years): Insulin Hypoglycemia > or=5.1 ng/mL Arginine/GHRH> or=4.1 ng/mL Glucagon > or=3.0 ng/mL Children (<20 years): All Stimulation Tests> or=10.0 ng/mL Specimen Blood Narrative Performed At Performing Lab [facility] [place] [address] [place] [address] Sixto Rodrigez MD, PhD, ANABELL Performing Organization Address [facility] [place] [address] [place] [address] Luteinizing hormone (LH) (06/19/2018 3:49 AM MINE ENGINEERING SUPERVISOR) LH, Serum 0.2 mIU/mL [employer] Comment: Adult Female Reference Ranges for LH: Follicular Phase:1.9-12.5 mIU/mL Mid-Cycle Peak:8.7-76.3 mIU/mL Luteal Phase:0.5-16.9 mIU/mL Postmenopausal: 10.0-54.7 mIU/mL Children (<18 Years Old): LH reference ranges established on post-pubertal patient population. Reference range not established for pre-pubertal patients using this assay. For pre-pubertal patients, the Ovalis LH, Pediatric assay is recommended (order code [id number]). Specimen Blood Narrative Performed At Performing Lab [facility] [id number] [place] [address] Sixto Rodrigez MD, PhD, ANABELL Performing Organization Address [facility] [place] [address] [place] [address] MR brain without & with IV contrast (06/19/2018 2:25 AM MINE ENGINEERING SUPERVISOR) Specimen Narrative Performed At FINAL REPORT CRITICAL TECHN[employer]IES [facility] MRI brain with and without contrast Comparison:None. 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 Discussion: Multiplanar MR imaging of the brain and sella was provided xsq-ttv-hvql IV gadolinium administration using T1, T2, FLAIR, [...] Report Verified Date/Time: 06/19/2018 02:25:15 Reading Location: [facility] B1 C013Y CT Body Reading Room Performing Organization Address City/[facility]/Zipcode Phone Number [facility] Hemoglobin A1c (06/19/2018 12:39 AM MINE ENGINEERING SUPERVISOR) Hemoglobin A1C 7.9 (H) 4.3 - 6.1 % [facility] Specimen Blood Performing Organization Address [facility] Cent[facility] Phone Number [address] [address] CENTER TSH/Free T4 If Indicated (06/18/2018 11:32 PM MINE ENGINEERING SUPERVISOR) TSH 0.41 0.35 - 4.94 uIU/mL [facility] Specimen Blood Performing Organization Address [facility] Phone Number [address] [address] [phone] CENTER Urinalysis w/Microscopic + Reflex to Culture (06/18/2018 10:27 PM MINE ENGINEERING SUPERVISOR) Color, UA Yellow [facility] Clarity, UA Clear [facility] Specific [place], UA 1.011 1.001 - 1.035 [facility] pH, UA 5.0 5.0 - 8.0 [facility] Protein, UA Negative Negative [facility] Glucose, UA >1000 mg/dL (A) Negative [facility] Ketones, UA 20 mg/dL (A) Negative [facility] Bilirubin, UA Negative Negative [facility] Blood, UA Negative Negative [facility] Nitrite, UA Negative Negative [facility] Leukocytes, UA Negative Negative [facility] Urobilinogen, UA 0.2 0.2 - 1.0 mg/dL [facility] RBC, UA <1 /HPF [facility] WBC, UA <1 /HPF [facility] Squam Epithel, UA <1 /HPF [facility] Specimen Source [facility] Specimen Urine Performing Organization Address City/State/Zipcode Phone Number [facility] [address] [place] [address] [phone] CENTER after 03/30/2018 Insurance Payer Benefit Plan / Subscriber ID Type Phone Address Group [employer]UE [employer] OS xxxxxxxxxxxx PPO [phone] [address] [employer] [place] [address] (Home) [address] [place] [id number] Advance Directives Patient has advance care planning documents, and code status on file. For more information, please contact:[address] [phone] Code Status Date Activated Date Inactivated Comments Full Code 06/26/2018 1:38 PM This code status was determined by: Patient Full Code 06/18/2018 8:39 PM 06/26/2018 11:54 AM This code status was determined by: Patient
--- OUTSIDE RECORDS SUMMARY | 2019-03-31 10:23 | XMS REPORT ---
[...] End Status Dosage System Date Date Diflucan [facility] 49883894221 150 MG Orally Feb 20Feb Active 1 tablet Once a day 2017 Nitrofurantoin ND 17439001377 100 MG Orally Feb 20Feb Active 1 capsule Macrocrystal BID 2017 12, with food 2018 or milk GlyBURIDE ND 32879056240 5 MG Orally January 21, Active 1 tablet Once a day 2017 with breakfast or the first main meal of the day Levothyroxine ND 50275868806 88 MCG Oral Active TAKE 1 Sodium TABLET BY MOUTH EVERY MORNING Losartan ND 50017750920 50-12.5 MG February 12, Active 1 tablet Potassium-HCTZ Orally Once a 2018 day Valsartan-Hydroch ND 47485403749 80-12.5 MG Oral Active TAKE 1 lorothiazide TABLET BY MOUTH EVERY DAY Results Name Result Date Reference Range Unit Abnormality Flag THINPREP TIS PAP AND HPV mRNA E6/E7, CHLAMYDIA/N.GONORRHOEAE URINALYSIS AUTO W/O SCOPE (11766) ----PROTEIN N [id number] ----pH 5.5 [id number] ----NIT P [id number] ----CONCEPCION 1+ [id number] ----URO 1.0 [id number] ----SPECIFIC GRAVITY 1.015 [id number] ----BLO TR [id number] ----BILIRUBIN N [id number] ----KETONES N [id number] ----GLUCOSE N [id number] Summary Purpose eClinicalWorks Submission
--- OUTSIDE RECORDS SUMMARY | 2019-03-31 10:23 | XMS REPORT ---
[...] Status Dosage System Date Date Amlodipine ND 46108271554 10 MG Orally Active 1 tablet Besylate Once a day MetFORMIN HCl ER ND 91410497730 750 MG Orally Active 1 tablet Once a day with evening meal Levothyroxine ND 44467560837 88 MCG Oral Active TAKE 1 Sodium TABLET BY MOUTH EVERY MORNING Hydrocortisone ND 83708731016 10 MG Orally Active 1 tablet every 12 hrs with food or milk Losartan ND 19003950287 50 MG Orally Active 1 tablet Potassium Once a day GlyBURIDE [facility] [address]-44 5 MG Orally Active 1/2 tablet BID with breakfast or the first main meal of the day Trulicity [facility] 73546349032 0.75mg/0.5ml October Active one SQ once a week , , injection 2018 [address] [facility] 49493600431 150 MG Orally October Active 1 tablet Once a day 2018 2019 Results Name Result Date Reference Range Unit Abnormality Flag HEMOGLOBIN A1C ----A1C 9.8 [id number] Summary Purpose eClinicalWorks Submission
--- OUTSIDE RECORDS SUMMARY | 2019-03-31 10:23 | XMS REPORT ---
[...] Status Dosage System Date Date Losartan ND 44735967118 50 MG Orally Active 1 tablet Potassium Once a day Levothyroxine ND 05533990600 88 MCG Oral Active TAKE 1 Sodium TABLET BY MOUTH EVERY MORNING Amlodipine ND 78929448605 10 MG Orally Active 1 tablet Besylate Once a day Amoxicillin ND 10844616118 500 MG Orally January 30January Active 1 capsule Twice a day 2018 MetFORMIN HCl ER ND 65106398065 750 MG Orally Active 1 tablet Once a day with evening meal Hydrocortisone ND 75666646120 10 MG Orally Active 1 tablet every 12 hrs with food or milk GlyBURIDE ND 66247330890 5 MG Orally BID Active 2 tabs bid with meal Results Name Result Date Reference Range Unit Abnormality Flag HEMOGLOBIN A1C ----A1C 10.5 [id number] Summary Purpose eClinicalWorks Submission
--- OUTSIDE RECORDS SUMMARY | 2019-03-31 10:23 | XMS REPORT ---
:1970 Author Organization eClinicalWorks Care Team Providers Name Role Phone Kendall, Neeru Provider Role Unavailable Allergies No Known [...]
--- OUTSIDE RECORDS SUMMARY | 2019-03-31 10:23 | XMS REPORT ---
[...] End Date Status Dosage System Date Losartan [facility] 50081327503 50-12.5 MG Active 1 tablet Potassium-HCTZ Orally Once a day Results No Known Results Summary Purpose eClinicalWorks Submission
--- OUTSIDE RECORDS SUMMARY | 2019-03-31 10:23 | XMS REPORT ---
[...] End Status Dosage System Date Date Hydrochlorothiazide [facility] 28777414958 12.5 MG Orally Jun 07, Active 1 tablet Once a day 2018 in the morning Levothyroxine Sodium ND 17362475837 88 MCG Oral Active TAKE 1 TABLET BY MOUTH EVERY MORNING Metformin HCl [facility] [address]-84 500 MG Orally Active 1 1/2 bid tablets with a meal Amlodipine Besylate ND 53200196008 10 MG Orally Active 1 tablet Once a day Hydrocortisone ND 09705986308 10 MG Orally Active 1 tablet every 12 hrs with food or milk Losartan [facility] 75285348174 50-12.5 MG Active 1 tablet Potassium-HCTZ Orally Once a day GlyBURIDE [facility] [address]-87 5 MG Orally Active 1/2 tablet BID with breakfast or the first main meal of the day Losartan Potassium [facility] 15167692543 50 MG Orally Active 1 tablet Once a day Results No Known Results Summary Purpose eClinicalWorks Submission
--- NOTE | 2019-03-31 10:55 | RAD REPORT ---
EXAM DESCRIPTION: CT - Head Brain Wo Cont - 03/31/2019 10:48 am CLINICAL HISTORY: DIZZINESS Headache, drowsiness COMPARISON: Head Brain Wo Cont dated 02/07/2019; Head Brain Wo Cont dated 12/08/2018 TECHNIQUE: All CT scans are performed using dose optimization technique as appropriate and may inclu de automated exposure control or mA/KV adjustment according to patient size. FINDINGS: No intracranial hemorrhage, hydrocephalus or extra-axial fluid collection.No areas of brai n edema or evidence of midline shift. The paranasal sinuses and mastoids are clear. The calvarium is intact. IMPRESSION: No acute intracranial abnormality.
[2019-03-31] MEDS ORDERED: MECLIZINE HCL 12.5 MG TAB ONE (10:57)
[2019-03-31] MEDS ORDERED: DIAZEPAM 5 MG TABLET ONE (10:57)
--- NOTE | 2019-03-31 11:39 | EDPHYS ---
Physician Documentation [facility] Name: Chantal Stout Age: 48 yrs Sex: Female : 1970 Arrival Date: 03/31/2019 Time: 10:15 Bed 8 Private MD: ED Physician Kirk Escudero HPI: 03/31 10:39 This 48 yrs old Female presents to ER via Wheelchair with complaints of kdr dizziness. 10:39 The patient presents with dizziness, generalized weakness, feeling off balance. Onset: kdr The symptoms/episode began/occurred at an unknown time. When she awoke form sleep she had the feeling. Context: occurred at home, occurred while the patient was asleep, just prior to the episode the patient experienced unknown symptoms. Modifying factors: the symptoms are aggravated by movement of head, standing up, changing position, States that she can move her head side to side but that up and down exacerbates the condition. Associated signs and symptoms: Pertinent positives: ataxia, nausea, Pertinent negatives: abdominal pain, agitation, blurred vision, chest pain, combativeness, confusion, diaphoresis, focal weakness, head injury, headache, near-syncope, numbness, palpitations, , seizure, shortness of breath, syncope, tingling, vomiting. Severity of symptoms: At their worst the symptoms were mild in the emergency department the symptoms are unchanged are worse mildly. The patient has not experienced similar symptoms in the past. The patient has not recently seen a physician, The patient has had recent sinus surgery but no new or changing sinus congestion. MEDICAL VIDEOGRAPHER: 10:27 LMP N/A - Post-menopause ph Historical: - Allergies: 10:29 Bactrim; ph 10:29 Cephalexin; ph 10:29 Codeine; ph 10:29 Iodine; ph 10:29 Levaquin; ph 10:29 Sulfa (Sulfonamide Antibiotics); ph - Home Meds: 10:29 amlodipine 10 mg tab 1 tab once daily [Active]; glyburide 5 mg Oral tab 1 tab once ph daily [Active]; hydrocortisone 10 mg Oral tab 1 tab 2 times per day [Active]; levothyroxine 75 mcg tab 1 tab once daily [Active]; losartan 50 mg Oral tab 1 tab once daily [Active]; metformin 750 mg Oral Tb24 1 tab twice a day [Active]; omeprazole 20 mg Oral cpDR 1 cap once daily [Active]; Trulicity subcutaneous [Active]; - PMHx: 10:29 Anemia; Asthma; Diabetes - NIDDM; Hypertension; Hypothyroidism; pituitary tumor- ph surgically removed Jun 24; - PSHx: 10:29 Tonsillectomy; D \T\ C; ph - Immunization history:: Adult Immunizations unknown. - Social history:: Smoking status: Patient/guardian denies using tobacco. - Ebola Screening: : No symptoms or risks identified at this time. ROS: 10:39 Constitutional: Negative for fever, chills, and weight loss, Eyes: Negative for injury, kdr pain, redness, and discharge, ENT: Negative for injury, pain, and discharge, Neck: Negative for injury, pain, and swelling, Cardiovascular: Negative for chest pain, palpitations, and edema, Respiratory: Negative for shortness of breath, cough, wheezing, and pleuritic chest pain, Abdomen/GI: Negative for abdominal pain, nausea, vomiting, diarrhea, and constipation, Back: Negative for injury and pain, : Negative for injury, bleeding, discharge, and swelling, MS/Extremity: Negative for injury and deformity, Skin: Negative for injury, rash, and discoloration, Psych: Negative for depression, anxiety, suicide ideation, homicidal ideation, and hallucinations, Allergy/Immunology: Negative for hives, rash, and allergies, Endocrine: Negative for neck swelling, polydipsia, polyuria, polyphagia, and marked weight changes, Hematologic/Lymphatic: Negative for swollen nodes, abnormal bleeding, and unusual bruising. 10:39 Neuro: Positive for dizziness, gait disturbance, weakness, Negative for altered mental status, hearing loss, loss of consciousness, numbness, seizure activity, speech changes, syncope, near syncope, tingling, tinnitus, tremor, visual changes. Exam: 10:39 Constitutional: This is a well developed, well nourished patient who is awake, alert, kdr and in no acute distress. Head/Face: Normocephalic, atraumatic. Eyes: Pupils equal round and reactive to light, extra-ocular motions intact. Lids and lashes normal. Conjunctiva and sclera are non-icteric and not injected. Cornea within normal limits. Periorbital areas with no swelling, redness, or edema. ENT: Nares patent. No nasal discharge, no septal abnormalities noted. Tympanic membranes are normal and external auditory canals are clear. Oropharynx with no redness, swelling, or masses, exudates, or evidence of obstruction, uvula midline. Mucous membranes moist. Neck: Trachea midline, no thyromegaly or masses palpated, and no cervical lymphadenopathy. Supple, full range of motion without nuchal rigidity, or vertebral point tenderness. No Meningismus. Chest/axilla: Normal chest wall appearance and motion. Nontender with no deformity. No lesions are appreciated. Cardiovascular: Regular rate and rhythm with a normal S1 and S2. No gallops, murmurs, or rubs. Normal PMI, no JVD. No pulse deficits. Respiratory: Lungs have equal breath sounds bilaterally, clear to auscultation and percussion. No rales, rhonchi or wheezes noted. No increased work of breathing, no retractions or nasal flaring. Abdomen/GI: Soft, non-tender, with normal bowel sounds. No distension or tympany. No guarding or rebound. No evidence of tenderness throughout. Back: No spinal tenderness. No costovertebral tenderness. Full range of motion. Skin: Warm, dry with normal turgor. Normal color with no rashes, no lesions, and no evidence of cellulitis. MS/ Extremity: Pulses equal, no cyanosis. Neurovascular intact. Full, normal range of motion. Neuro: Awake and alert, GCS 15, oriented to person, place, time, and situation. Cranial nerves II-XII grossly intact. Motor strength 5/5 in all extremities. Sensory grossly intact. Cerebellar exam normal. HINTS normal - slight right beating nystagmus Psych: Awake, alert, with orientation to person, place and time. Behavior, mood, and affect are within normal limits. Vital Signs: 10:27 BP 158 / 106; Pulse 88; Resp 18; Temp 97.3; Pulse Ox 98% on R/A; Weight 127.01 kg; ph Height 5 ft. 4 in. (162.56 cm); 11:56 BP 144 / 86; Pulse 78; Resp 18; Temp 97.8; Pulse Ox 99% on R/A; ph 10:27 Body Mass Index 48.06 (127.01 kg, 162.56 cm) ph MDM: 10:39 Data reviewed: vital signs, nurses notes, radiologic studies. Counseling: I had a kdr detailed discussion with the patient and/or guardian regarding: the historical points, exam findings, and any diagnostic results supporting the discharge/admit diagnosis, lab results, radiology results, the need for outpatient follow up. 11:35 ED course: The patient refused the Valium but states she was feeling better though kdr sleepy with the meclizine. 11:38 Patient medically screened. kdr 03/31 10:38 Order name: CT Head Brain wo Cont; Complete Time: 11:10 kdr Administered Medications: 11:01 Drug: Meclizine 25 mg Route: PO; iw 11:52 Follow up: Response: No adverse reaction; Marked relief of symptoms ph 11:01 Not Given (Patient Refused): Valium 5 mg PO once iw Disposition: 03/31/19 11:38 Discharged to Home. Impression: Benign paroxysmal vertigo, unspecified ear, Dizziness and giddiness. - Condition is Stable. - Discharge Instructions: Vertigo, Hdnq-me-Nicy, Dizziness, Begk-tu-Ojod. - Prescriptions for Meclizine 25 mg Oral Tablet - take 1 tablet by ORAL route every 8 hours As needed; 30 tablet. - Medication Reconciliation Form, Thank You Letter form. - Follow up: Private Physician; When: 2 - 3 days; Reason: If symptoms return, Further diagnostic work-up, Recheck today's complaints, Continuance of care, Re-evaluation by your physician. - Problem is new. - Symptoms have improved. Signatures: Dispatcher [employer] EDMS Kirk Escudero MD MD kdr Ingrid Bernabe RN RN iw Barbara Leahy RN RN ph Corrections: (The following items were deleted from the chart) 12:04 11:38 03/31/2019 11:38 Discharged to Home. Impression: Benign paroxysmal vertigo, iw unspecified ear; Dizziness and giddiness. Condition is Stable. Forms are Medication Reconciliation Form, Thank You Letter, Antibiotic Education, Prescription Opioid Use. Follow up: Private Physician; When: 2 - 3 days; Reason: If symptoms return, Further diagnostic work-up, Recheck today's complaints, Continuance of care, Re-evaluation by your physician. Problem is new. Symptoms have improved. kdr
--- NOTE | 2019-03-31 11:39 | ER ---
Nurse's Notes [facility] Name: Chantal Stout Age: 48 yrs Sex: Female : 1970 Arrival Date: 03/31/2019 Time: 10:15 Bed 8 Private MD: Diagnosis: Benign paroxysmal vertigo, unspecified ear;Dizziness and giddiness Presentation: 03/31 10:24 Presenting complaint: Patient states: Dizziness and "felling off balance" since waking ph this morning at 5 am, states, " I've been having diarrhea and cold sweats for a few days but I think it's from my Metformin", also reports that she was recently taken off of Amlodipine per Dr Mcpherson r/t leg swelling. Transition of care: patient was not received from another setting of care. Onset of symptoms was March 31, 2019. Risk Assessment: Do you want to hurt yourself or someone else? Patient reports no desire to harm self or others. Initial Sepsis Screen: Does the patient meet any 2 criteria? No. Patient's initial sepsis screen is negative. Does the patient have a suspected source of infection? No. Patient's initial sepsis screen is negative. Care prior to arrival: None. 10:24 Method Of Arrival: Wheelchair ph 10:24 Acuity: NOÉ 3 ph Triage Assessment: 11:57 General: Appears. 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 LMP N/A - Post-menopause ph Historical: - Allergies: 10:29 Bactrim; ph 10:29 Cephalexin; ph 10:29 Codeine; ph 10:29 Iodine; ph 10:29 Levaquin; ph 10:29 Sulfa (Sulfonamide Antibiotics); ph - Home Meds: 10:29 amlodipine 10 mg tab 1 tab once daily [Active]; glyburide 5 mg Oral tab 1 tab once ph daily [Active]; hydrocortisone 10 mg Oral tab 1 tab 2 times per day [Active]; levothyroxine 75 mcg tab 1 tab once daily [Active]; losartan 50 mg Oral tab 1 tab once daily [Active]; metformin 750 mg Oral Tb24 1 tab twice a day [Active]; omeprazole 20 mg Oral cpDR 1 cap once daily [Active]; Trulicity subcutaneous [Active]; - PMHx: 10:29 Anemia; Asthma; Diabetes - NIDDM; Hypertension; Hypothyroidism; pituitary tumor- ph surgically removed Jun 24; - PSHx: 10:29 Tonsillectomy; D \\T\\ C; ph - Immunization history:: Adult Immunizations unknown. - Social history:: Smoking status: Patient/guardian denies using tobacco. - Ebola Screening: : No symptoms or risks identified at this time. Screenin:29 Abuse screen: Denies threats or abuse. Denies injuries from another. Nutritional ph screening: No deficits noted. Tuberculosis screening: No symptoms or risk factors identified. Fall Risk None identified. Assessment: 11:00 General: Appears in no apparent distress. comfortable, obese, well groomed, Behavior is ph calm, cooperative, appropriate for age, Denies fever. Pain: Denies pain. Neuro: Level of Consciousness is awake, alert, obeys commands, Oriented to person, place, time, situation, Reports dizziness, Denies weakness blurred vision headache. Cardiovascular: Capillary refill < 3 seconds in bilateral fingers Patient's skin is warm and dry. Respiratory: Airway is patent Respiratory effort is even, unlabored, Respiratory pattern is regular, symmetrical. GI: Reports diarrhea, Parent/caregiver reports the patient having nausea, vomiting. Derm: Skin is intact, is healthy with good turgor, Skin is pink, warm \\T\\ dry. Musculoskeletal: Circulation, motion, and sensation intact. Range of motion: intact in all extremities. Vital Signs: 10:27 BP 158 / 106; Pulse 88; Resp 18; Temp 97.3; Pulse Ox 98% on R/A; Weight 127.01 kg; ph Height 5 ft. 4 in. (162.56 cm); 11:56 BP 144 / 86; Pulse 78; Resp 18; Temp 97.8; Pulse Ox 99% on R/A; ph 10:27 Body Mass Index 48.06 (127.01 kg, 162.56 cm) ph ED Course: 10:15 Patient arrived in ED. aa5 10:23 Barbara Leahy RN is Primary Nurse. ph 10:24 Kirk Escudero MD is Attending Physician. kdr 10:27 Triage completed. ph 10:29 Arm band placed on Patient placed in an exam room, on a stretcher, on pulse oximetry. ph 10:29 Patient has correct armband on for positive identification. Bed in low position. Call ph light in reach. Side rails up X2. Pulse ox on. NIBP on. Door closed. Noise minimized. Warm blanket given. Head of bed elevated. 10:52 CT Head Brain wo Cont In Process Unspecified. EDMS 11:57 No provider procedures requiring assistance completed. Patient did not have IV access ph during this emergency room visit. Administered Medications: 11:01 Drug: Meclizine 25 mg Route: PO; iw 11:52 Follow up: Response: No adverse reaction; Marked relief of symptoms ph 11:01 Not Given (Patient Refused): Valium 5 mg PO once iw Outcome: 11:38 Discharge ordered by . kdr 11:57 Discharged to home via wheelchair, with family. ph 11:57 Condition: good 11:57 Discharge instructions given to patient, Instructed on discharge instructions, follow up and referral plans. medication usage, Demonstrated understanding of instructions, follow-up care, medications, Prescriptions given X 1. 12:04 Patient left the ED. iw Signatures: Dispatcher [employer] EDMS Kirk Escudero MD MD kdr Williams, Irene, RN RN iw Brittany Kong, RN RN aa5 Barbara Leahy RN RN ph
[2019-03-31 16:26] VITALS: BP 144/86; TEMP 97.8; O2SAT 99
== END 2019-03-31 12:04 | disposition home or self-care (01) ==
LOC: ER 10:14
DX: H81.10 Benign paroxysmal vertigo, unspecified ear (principal); I10 Essential (primary) hypertension; E03.9 Hypothyroidism, unspecified; E11.9 Type 2 diabetes mellitus without complications; J45.909 Unspecified asthma, uncomplicated; Z79.4 Long term (current) use of insulin; Z88.1 Allergy status to other antibiotic agents; Z88.2 Allergy status to sulfonamides; Z88.3 Allergy status to other anti-infective agents; Z88.5 Allergy status to narcotic agent; Z88.8 Allergy status to other drugs, medicaments and biological substances
CPT/HCPCS: 70450; 99284

== ENCOUNTER 2019-05-30 09:47 | Emergency (ER) | payer BC, SELFPAY ==
[2019-05-30] MEDS ORDERED: ONDANSETRON 4 MG (ODT) TAB ONE (10:33)
[2019-05-30] MEDS ORDERED: HYDROCODONE/APAP 5/325 MG TAB ONE (10:33)
--- NOTE | 2019-05-30 11:19 | RAD REPORT ---
EXAM DESCRIPTION: RAD - Ribs Left - 05/30/2019 11:09 am CLINICAL HISTORY: injury Left-sided rib pain COMPARISON: Chest Single View dated 03/24/2019 FINDINGS: No displaced rib fracture. No aggressive rib lesion.
--- NOTE | 2019-05-30 11:47 | ER ---
Nurse's Notes [facility] Name: Chantal Stout Age: 49 yrs Sex: Female : 1970 Arrival Date: 05/30/2019 Time: 09:59 Bed 14 Private MD: Diagnosis: Intercostal pain Presentation: 05/30 10:03 Presenting complaint: Patient states: LUQ pain that radiates to the back, and nausea aj1 since yesterday. Reports pain is worse if she moves or raises her arm. States that she bent over last night and felt something "like my rib roll out of place and then when I sat down it rolled back. It hurts really bad when I take a deep breath" Denies vomiting. Transition of care: patient was not received from another setting of care. Onset of symptoms was May 29, 2019. Risk Assessment: Do you want to hurt yourself or someone else? Patient reports no desire to harm self or others. Initial Sepsis Screen: Does the patient meet any 2 criteria? No. Patient's initial sepsis screen is negative. Does the patient have a suspected source of infection? No. Patient's initial sepsis screen is negative. Care prior to arrival: None. 10:03 Method Of Arrival: Ambulatory aj1 10:03 Acuity: NOÉ 3 aj1 Triage Assessment: 10:06 General: Appears in no apparent distress. uncomfortable, Behavior is calm, cooperative, aj1 appropriate for age. Pain: Complains of pain in left upper quadrant Pain radiates to back Pain currently is 7 out of 10 on a pain scale. at worst was 9 out of 10 on a pain scale. Neuro: Level of Consciousness is awake, alert, obeys commands. Cardiovascular: Patient's skin is warm and dry. Respiratory: Airway is patent Respiratory effort is even, unlabored, Respiratory pattern is regular, symmetrical. 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 LMP N/A - Post-menopause aj1 Historical: - Allergies: 10:06 Bactrim; aj1 10:06 Cephalexin; aj1 10:06 Codeine; aj1 10:06 Iodine; aj1 10:06 Levaquin; aj1 10:06 Sulfa (Sulfonamide Antibiotics); aj1 - Home Meds: 10:06 losartan-hydrochlorothiazide 100-12.5 mg oral tab 1 tab once daily [Active]; insulin aj1 NPH human recomb subcutaneous 10 units subcutaneous twice a day [Active]; amlodipine 10 mg tab 1 tab once daily [Active]; glyburide 5 mg Oral tab 1 tab once daily [Active]; hydrocortisone 10 mg Oral tab 1 tab 2 times per day [Active]; levothyroxine 75 mcg tab 1 tab once daily [Active]; metformin 750 mg Oral Tb24 1 tab twice a day [Active]; omeprazole 20 mg Oral cpDR 1 cap once daily [Active]; - PMHx: 10:06 Anemia; Asthma; Diabetes - NIDDM; Hypertension; Hypothyroidism; pituitary tumor- aj1 surgically removed Jun 24; - Immunization history:: Flu vaccine is not up to date. - Social history:: Smoking status: Patient/guardian denies using tobacco. - Ebola Screening: : Patient denies travel to an Ebola-affected area in the 21 days before illness onset. Screenin:59 Abuse screen: Denies threats or abuse. Nutritional screening: No deficits noted. tw2 Tuberculosis screening: No symptoms or risk factors identified. Fall Risk None identified. Assessment: 10:10 General: Appears in no apparent distress. obese, Behavior is calm, cooperative, tw2 appropriate for age. Pain: Complains of pain in diaphragm and back and left upper quadrant. Neuro: Level of Consciousness is awake, alert, obeys commands, Oriented to person, place, time, situation. Cardiovascular: Heart tones S1 S2 Patient's skin is warm and dry. Respiratory: Airway is patent Respiratory effort is even, unlabored, Respiratory pattern is regular, symmetrical, Breath sounds are clear bilaterally. GI: Abdomen is round non-distended, obese, Bowel sounds present X 4 quads. Reports lower abdominal pain, upper abdominal pain, nausea. : No signs and/or symptoms were reported regarding the genitourinary system. EENT: No signs and/or symptoms were reported regarding the EENT system. Derm: No signs and/or symptoms reported regarding the dermatologic system. Musculoskeletal: Range of motion: intact in all extremities. 11:19 Reassessment: Patient appears in no apparent distress at this time. Patient and/or tw2 family updated on plan of care and expected duration. Pain level reassessed. Patient is alert, oriented x 3, equal unlabored respirations, skin warm/dry/pink. Patient states feeling better. Patient states symptoms have improved. 11:53 Reassessment: Patient appears in no apparent distress at this time. Patient and/or tw2 family updated on plan of care and expected duration. Pain level reassessed. Patient is alert, oriented x 3, equal unlabored respirations, skin warm/dry/pink. Vital Signs: 10:06 BP 170 / 113; Pulse 70; Resp 18; Temp 97.1; Pulse Ox 97% on R/A; Weight 131.54 kg (R); aj1 Height 5 ft. 5 in. (165.10 cm) (R); Pain 7/10; 11:19 BP 121 / 78; Pulse 88; Resp 17; Pulse Ox 97% on R/A; Pain 6/10; tw2 10:06 Body Mass Index 48.26 (131.54 kg, 165.10 cm) aj1 ED Course: 09:59 Patient arrived in ED. aj1 10:03 Bed in low position. Call light in reach. tw2 10:04 Triage completed. aj1 10:06 Arm band placed on Patient placed in an exam room. aj1 10:07 Kemar Tan PA is PHCP. [facility] 10:07 Marco Vargas MD is Attending Physician. [facility] 10:52 Stephanie Lynch, ALCIDES is Primary Nurse. tw2 11:12 Ribs Left XRAY In Process Unspecified. EDMS 11:51 INCENTIVE SPIROMETRY Sent. tw2 11:53 No provider procedures requiring assistance completed. Patient did not have IV access tw2 during this emergency room visit. Administered Medications: 10:34 Drug: Zofran 4 mg Route: PO; em 11:20 Follow up: Response: No adverse reaction tw2 10:36 Drug: [place] 5 mg-325 mg 1 tabs Route: PO; em 11:20 Follow up: Response: No adverse reaction; Pain is decreased tw2 11:20 Follow up: Response: No adverse reaction; RASS: Alert and Calm (0) tw2 Outcome: 11:45 Discharge ordered by . [facility] 11:53 Discharged to home ambulatory, with family. tw2 11:53 Condition: stable 11:53 Discharge instructions given to patient, family, Instructed on discharge instructions, follow up and referral plans. incentive spirometer use Demonstrated understanding of instructions, follow-up care, incentive spirometer 11:54 Patient left the ED. tw2 Signatures: Dispatcher [employer] EDMS Donya Haji, RN RN aj1 Kemar Tan PA PA jmm Castro Canales, KEYBOARD INSTRUMENT TUNER KEYBOARD INSTRUMENT TUNER Stephanie Baca, RN RN tw2 Corrections: (The following items were deleted from the chart) : 11:00 General: Appears in no apparent distress. obese, Behavior is calm, cooperative, tw2 appropriate for age, tw2 11:00 Pain: Complains of pain in diaphragm and back and left upper quadrant tw2 tw2 11:00 Neuro: Level of Consciousness is awake, alert, obeys commands, Oriented to tw2 person, place, time, situation, tw2 11:00 Cardiovascular: Heart tones S1 S2 Patient's skin is warm and dry. tw2 tw2 : 11:00 Respiratory: Airway is patent Respiratory effort is even, unlabored, Respiratory tw2 pattern is regular, symmetrical, Breath sounds are clear bilaterally. tw2 11:00 GI: Abdomen is round non-distended, obese, Bowel sounds present X 4 quads. tw2 Reports lower abdominal pain, upper abdominal pain, nausea, tw2 11:00 : No signs and/or symptoms were reported regarding the genitourinary system. tw2tw2 11: 11:00 EENT: No signs and/or symptoms were reported regarding the EENT system. tw2 tw2 : 11:00 Derm: No signs and/or symptoms reported regarding the dermatologic system. tw2 tw2 11: 11:00 Musculoskeletal: Range of motion: intact in all extremities, tw2 tw2
--- NOTE | 2019-05-30 11:48 | EDPHYS ---
Physician Documentation [facility] Name: Chantal Stout Age: 49 yrs Sex: Female : 1970 Arrival Date: 05/30/2019 Time: 09:59 Bed 14 Private MD: ED Physician Marco Vargas HPI: 05/30 10:24 This 49 yrs old Female presents to ER via Ambulatory with complaints of jmm Abdominal Pain, Back Pain. 10:24 Onset: The symptoms/episode began/occurred acutely, yesterday. The pain does not jmm radiate. Onset: The symptoms/episode began/occurred acutely. 10:24 Modifying factors: The symptoms are alleviated by remaining still, the symptoms are jmm aggravated by movement, palpation/percussion. Associated signs and symptoms: Pertinent positives: nausea. This is a 49 year old female with a history of htn, DM, anemia that presents to the ED with complaints of left sided rib pain which developed yesterday after bending down. Patient states she felt something roll under her rib. Pain is exacerbated by deep inspiration. Denies vomiting or diarrhea. . 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 LMP N/A - Post-menopause aj1 Historical: - Allergies: 10:06 Bactrim; aj1 10:06 Cephalexin; aj1 10:06 Codeine; aj1 10:06 Iodine; aj1 10:06 Levaquin; aj1 10:06 Sulfa (Sulfonamide Antibiotics); aj1 - Home Meds: 10:06 losartan-hydrochlorothiazide 100-12.5 mg oral tab 1 tab once daily [Active]; insulin aj1 NPH human recomb subcutaneous 10 units subcutaneous twice a day [Active]; amlodipine 10 mg tab 1 tab once daily [Active]; glyburide 5 mg Oral tab 1 tab once daily [Active]; hydrocortisone 10 mg Oral tab 1 tab 2 times per day [Active]; levothyroxine 75 mcg tab 1 tab once daily [Active]; metformin 750 mg Oral Tb24 1 tab twice a day [Active]; omeprazole 20 mg Oral cpDR 1 cap once daily [Active]; - PMHx: 10:06 Anemia; Asthma; Diabetes - NIDDM; Hypertension; Hypothyroidism; pituitary tumor- aj1 surgically removed Jun 24; - Immunization history:: Flu vaccine is not up to date. - Social history:: Smoking status: Patient/guardian denies using tobacco. - Ebola Screening: : Patient denies travel to an Ebola-affected area in the 21 days before illness onset. ROS: 10:24 Constitutional: Negative for fever, chills, and weight loss, Cardiovascular: Negative jmm for chest pain, palpitations, and edema, Respiratory: Negative for shortness of breath, cough, wheezing, and pleuritic chest pain. 10:24 Abdomen/GI: Positive for abdominal pain. 10:24 Back: Positive for pain with movement. 10:24 All other systems are negative. Exam: 10:24 Constitutional: This is a well developed, well nourished patient who is awake, alert, jmm and in no acute distress. Head/Face: atraumatic. Eyes: EOMI, no conjunctival erythema appreciated ENT: Moist Mucus Membranes Neck: Trachea midline, Supple Cardiovascular: Regular rate and rhythm. No edema appreciated Respiratory: Normal respirations, no respiratory distress appreciated 10:24 Abdomen/GI: Non distended, soft Back: Normal ROM Skin: General appearance color normal MS/ Extremity: Moves all extremities, no obvious deformities appreciated, no edema noted to the lower extremities Neuro: Awake and alert, normal gait Psych: Behavior is normal, Mood is normal, Patient is cooperative and pleasant 10:24 Chest/axilla: Inspection: normal, Palpation: tenderness, that is moderate, of the diaphragm. Vital Signs: 10:06 BP 170 / 113; Pulse 70; Resp 18; Temp 97.1; Pulse Ox 97% on R/A; Weight 131.54 kg (R); aj1 Height 5 ft. 5 in. (165.10 cm) (R); Pain 7/10; 11:19 BP 121 / 78; Pulse 88; Resp 17; Pulse Ox 97% on R/A; Pain 6/10; tw2 10:06 Body Mass Index 48.26 (131.54 kg, 165.10 cm) aj1 MDM: 10:10 Patient medically screened. m 11:42 Data reviewed: vital signs, nurses notes. Counseling: I had a detailed discussion with jmalek the patient and/or guardian regarding: the historical points, exam findings, and any diagnostic results supporting the discharge/admit diagnosis, radiology results, the need for outpatient follow up, to return to the emergency department if symptoms worsen or persist or if there are any questions or concerns that arise at home. ED course: Patient is point tender. Pain is relieved in the ED. Patient is given incentive spirometry. I do not suspect an acute intraabdominal process. Patient advised to return to the ED if symptoms worsens. Patient understood and agrees with the plan of care.. 05/30 10:18 Order name: Ribs Left XRAY; Complete Time: 11:28 [facility] 05/30 11:33 Order name: INCENTIVE SPIROMETRY [facility] Administered Medications: 10:34 Drug: Zofran 4 mg Route: PO; em 11:20 Follow up: Response: No adverse reaction tw2 10:36 Drug: [place] 5 mg-325 mg 1 tabs Route: PO; em 11:20 Follow up: Response: No adverse reaction; Pain is decreased tw2 11:20 Follow up: Response: No adverse reaction; RASS: Alert and Calm (0) tw2 Disposition: 13:43 Co-signature as Attending Physician, Marco Vargas MD I agree with the assessment and manuela plan of care. Disposition: 05/30/19 11:45 Discharged to Home. Impression: Intercostal pain. - Condition is Stable. - Discharge Instructions: Chest Wall Pain, Incentive Spirometer. - Medication Reconciliation Form, Thank You Letter, Antibiotic Education, Prescription Opioid Use, Work release form, Family Work Release form. - Follow up: Private Physician; When: 2 - 3 days; Reason: Recheck today's complaints, Continuance of care, Re-evaluation by your physician. Signatures: Dispatcher [employer] Donya Taylor RN RN aj1 Marco Vargas MD MD cha Mickail, Joel, PA PA [facility] Castro Canales, DSP ENGINEER DSP ENGINEER Stephanie Baca, RN RN tw2 Corrections: (The following items were deleted from the chart) 11:54 11:45 05/30/2019 11:45 Discharged to Home. Impression: Intercostal pain. Condition is tw2 Stable. Forms are Work release form, Family Work Release, Medication Reconciliation Form, Thank You Letter, Antibiotic Education, Prescription Opioid Use. Follow up: Private Physician; When: 2 - 3 days; Reason: Recheck today's complaints, Continuance of care, Re-evaluation by your physician. [facility]
[2019-05-30 12:07] VITALS: TEMP 97.1; O2SAT 97
[2019-05-30 12:09] VITALS: BP 121/78
--- OUTSIDE RECORDS SUMMARY | 2019-06-02 05:11 | XMS REPORT ---
:1970 Author Organization [facility] Address [address] [place] [address] Dr. Holbrook [address] [place] [id number] Care Team Providers Name Role Phone DAJUAN GEORGE Unavailable Unavailable MITCHELL DOBSON Unavailable Unavailable Problems This patient has no known problems. Allergies, Adverse Reactions, Alerts This patient has no known allergies or adverse reactions. Medications This patient has no known medications. Results Test Description Test Time Test Comments Text Results Atomic Results Result Comments TISSUE EXAM 2018-06-28 08:38:00 Surgical Pathology Report Case: [id number] Authorizing Provider: Alex Ruano MD Collected: 06/24/2018801 Ordering Location: [address] Received: 06/24/2018 0809 Service Pathologist: Chon Andino MD Specimens: A) - Tumor, pituitary tumor B) - Tumor, pituitary tumor A.PITUITARY GLAND, TRANSSPHENOIDAL 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 PITUITARY GLAND, TRANSSPHENOIDAL HYPOPHYSECTOMY:NULL CELL ADENOMAENTRAPPED ADENOHYPOPHYSIS Signing Pathologist Direct Phone Line: [phone] signed by Chon Andino MD on 06/28/2018 at 8:38 AMImmunoperoxidase stains performed on the second specimen show that the tumor has no staining for growth hormone, LH, FSH, TSH, prolactin, or ACTH. 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 The MIB-1 proliferation index is less than 1%. 53436 x 2; 84832; 11408; 55271 x 6; 96267Nbpozuotb adenoma A. Pituitary tumor; B. Pituitary tumorA. [...] stains. Immunohistochemistry technical testing was performed at [facility], Pathology Laboratory where it was developed [...] (BEAKER) (test 141 mg/dL 70-110 TESTED AT [facility] [address] [place] [address] lklq=9545) [facility] [address] POCT-GLUCOSE [id number] 12:06:00 Test Item Value Reference Range Comments POC-GLUCOSE METER (BEAKER) 217 mg/dL 70-110 TESTED AT [address] (test mupg=4598) [facility] [address] BASIC METABOLIC [id number] 07:18:00 Test Item Value Reference Range Comments SODIUM (BEAKER) (test 139 meq/L 136-145 tewk=915) POTASSIUM (BEAKER) (test 4.1 meq/L 3.5-5.1 dijg=064) CHLORIDE (BEAKER) (test 105 meq/L 98-107 sgpx=882) CO2 (BEAKER) (test 28 meq/L 22-29 dazr=058) BLOOD UREA NITROGEN 11 mg/dL 7-21 (BEAKER) (test lfzn=001) CREATININE (BEAKER) (test 0.69 mg/dL 0.57-1.25 yrqs=344) GLUCOSE RANDOM (BEAKER) 163 mg/dL 70-105 (test kxnj=398) CALCIUM (BEAKER) (test 8.6 mg/dL 8.4-10.2 fcuo=135) EGFR (BEAKER) (test 91 mL/min/1.73 sq m ESTIMATED GFR IS NOT iyob=2446) ACCURATE CREATININE CLEARANCE IN PREDICTING GLOMERULAR FILTRATION RATE. ESTIMATED GFR IS NOT APPLICABLE FOR DIALYSIS PATIENTS. CBC W/PLT COUNT & AUTO [id number] 06:49:00 Test Item Value Reference Range Comments WHITE BLOOD CELL COUNT (BEAKER) (test uydn=830) 8.7 K/ L 3.5-10.5 RED BLOOD CELL COUNT (BEAKER) (test wbzc=208) 4.82 M/ L 3.93-5.22 HEMOGLOBIN (BEAKER) (test tero=813) 13.2 GM/DL 11.2-15.7 HEMATOCRIT (BEAKER) (test madc=460) 40.8 % 34.1-44.9 MEAN CORPUSCULAR VOLUME (BEAKER) (test pdml=673) 84.6 fL 79.4-94.8 MEAN CORPUSCULAR HEMOGLOBIN (BEAKER) (test 27.4 pg 25.6-32.2 tkho=837) MEAN CORPUSCULAR HEMOGLOBIN CONC (BEAKER) (test 32.4 GM/DL 32.2-35.5 qaeg=938) RED CELL DISTRIBUTION WIDTH (BEAKER) (test 13.2 % 11.7-14.4 qxhr=692) PLATELET COUNT (BEAKER) (test dnkd=354) 233 K/CU MM 150-450 MEAN PLATELET VOLUME (BEAKER) (test pqsx=820) 11.5 fL 9.4-12.3 NUCLEATED RED BLOOD CELLS (BEAKER) (test 0 /100 WBC 0-0 mlyn=116) NEUTROPHILS RELATIVE PERCENT (BEAKER) (test 65 % nuwv=416) LYMPHOCYTES RELATIVE PERCENT (BEAKER) (test 24 % mfal=318) MONOCYTES RELATIVE PERCENT (BEAKER) (test 8 % kgbu=620) EOSINOPHILS RELATIVE PERCENT (BEAKER) (test 2 % fcld=977) BASOPHILS RELATIVE PERCENT (BEAKER) (test 0 % sucs=354) NEUTROPHILS ABSOLUTE COUNT (BEAKER) (test 5.65 K/ L 1.56-6.13 xcii=205) LYMPHOCYTES ABSOLUTE COUNT (BEAKER) (test 2.07 K/ L 1.18-3.74 dizs=088) MONOCYTES ABSOLUTE COUNT (BEAKER) (test 0.70 K/ L 0.24-0.36 cayh=138) EOSINOPHILS ABSOLUTE COUNT (BEAKER) (test 0.16 K/ L 0.04-0.36 nqij=421) BASOPHILS ABSOLUTE COUNT (BEAKER) (test 0.02 K/ L 0.01-0.08 hvsj=642) IMMATURE GRANULOCYTES-RELATIVE PERCENT (BEAKER) 1 % 0-1 (test lmpo=6811) BASIC METABOLIC [id number] 23:52:00 Test Item Value Reference Range Comments SODIUM (BEAKER) (test 139 meq/L 136-145 sldf=527) POTASSIUM (BEAKER) (test 4.0 meq/L 3.5-5.1 Specimen slightly awqe=361) hemolyzed CHLORIDE (BEAKER) (test 103 meq/L 98-107 tzod=280) CO2 (BEAKER) (test 28 meq/L 22-29 rvhl=967) BLOOD UREA NITROGEN 12 mg/dL 7-21 (BEAKER) (test gnmk=293) CREATININE (BEAKER) (test 0.72 mg/dL 0.57-1.25 Specimen slightly seok=903) hemolyzed GLUCOSE RANDOM (BEAKER) 193 mg/dL 70-105 (test wtuq=526) CALCIUM (BEAKER) (test 8.6 mg/dL 8.4-10.2 aazc=169) EGFR (BEAKER) (test 86 mL/min/1.73 sq m ESTIMATED GFR IS NOT ropo=2953) ACCURATE CREATININE CLEARANCE IN PREDICTING GLOMERULAR FILTRATION RATE. ESTIMATED GFR IS NOT APPLICABLE FOR DIALYSIS PATIENTS. SODIUM, RANDOM [id number] 23:49:00 Test Item Value Reference Range Comments SODIUM URINE (BEAKER) (test zdjz=019) < meq/L Reference Range: No NormalsCBC W/PLT COUNT & AUTO [id number] 23: 35:00 Test Item Value Reference Range Comments WHITE BLOOD CELL COUNT (BEAKER) (test rgmb=367) 9.7 K/ L 3.5-10.5 RED BLOOD CELL COUNT (BEAKER) (test orlx=203) 4.46 M/ L 3.93-5.22 HEMOGLOBIN (BEAKER) (test iitq=009) 12.2 GM/DL 11.2-15.7 HEMATOCRIT (BEAKER) (test udoh=532) 37.8 % 34.1-44.9 MEAN CORPUSCULAR VOLUME (BEAKER) (test ozkn=237) 84.8 fL 79.4-94.8 MEAN CORPUSCULAR HEMOGLOBIN (BEAKER) (test 27.4 pg 25.6-32.2 wzne=681) MEAN CORPUSCULAR HEMOGLOBIN CONC (BEAKER) (test 32.3 GM/DL 32.2-35.5 wpjt=657) RED CELL DISTRIBUTION WIDTH (BEAKER) (test 13.0 % 11.7-14.4 gkxd=777) PLATELET COUNT (BEAKER) (test kpml=789) 210 K/CU MM 150-450 MEAN PLATELET VOLUME (BEAKER) (test tveb=318) 11.4 fL 9.4-12.3 NUCLEATED RED BLOOD CELLS (BEAKER) (test 0 /100 WBC 0-0 dqlb=006) NEUTROPHILS RELATIVE PERCENT (BEAKER) (test 61 % eplj=376) LYMPHOCYTES RELATIVE PERCENT (BEAKER) (test 28 % tbji=757) MONOCYTES RELATIVE PERCENT (BEAKER) (test 8 % oloy=145) EOSINOPHILS RELATIVE PERCENT (BEAKER) (test 2 % dnof=447) BASOPHILS RELATIVE PERCENT (BEAKER) (test 0 % uqha=607) NEUTROPHILS ABSOLUTE COUNT (BEAKER) (test 5.87 K/ L 1.56-6.13 yfep=757) LYMPHOCYTES ABSOLUTE COUNT (BEAKER) (test 2.72 K/ L 1.18-3.74 utvf=682) MONOCYTES ABSOLUTE COUNT (BEAKER) (test 0.80 K/ L 0.24-0.36 yiid=891) EOSINOPHILS ABSOLUTE COUNT (BEAKER) (test 0.22 K/ L 0.04-0.36 wrzj=793) BASOPHILS ABSOLUTE COUNT (BEAKER) (test 0.03 K/ L 0.01-0.08 rwfu=057) IMMATURE GRANULOCYTES-RELATIVE PERCENT (BEAKER) 1 % 0-1 (test kzkb=1263) CT, BRAIN, WITHOUT [id number] 22:57:00FINAL REPORT CT Head without contrast CLINICAL [...] [place] Verified Date/Time: 06/26/2018 22:57:28 [address] POCT-GLUCOSE [id number] 21:07:00 Test Item Value Reference Range Comments POC-GLUCOSE METER (BEAKER) 211 mg/dL 70-110 TESTED AT [address] (test rhst=5070) [facility] [address] BASIC METABOLIC [id number] 14:29:00 Test Item Value Reference Range Comments SODIUM (BEAKER) (test 137 meq/L 136-145 ypfj=840) POTASSIUM (BEAKER) (test 3.6 meq/L 3.5-5.1 cssx=586) CHLORIDE (BEAKER) (test 100 meq/L 98-107 zxwz=612) CO2 (BEAKER) (test 32 meq/L 22-29 exjx=936) BLOOD UREA NITROGEN 12 mg/dL 7-21 (BEAKER) (test dpwc=477) CREATININE (BEAKER) (test 0.71 mg/dL 0.57-1.25 luit=813) GLUCOSE RANDOM (BEAKER) 182 mg/dL 70-105 (test ybtw=708) CALCIUM (BEAKER) (test 8.7 mg/dL 8.4-10.2 tait=518) EGFR (BEAKER) (test 88 mL/min/1.73 sq m ESTIMATED GFR IS NOT broe=1322) ACCURATE CREATININE CLEARANCE IN PREDICTING GLOMERULAR FILTRATION RATE. ESTIMATED GFR IS NOT APPLICABLE FOR DIALYSIS PATIENTS. CBC W/PLT COUNT & AUTO [id number] 14:25:00 Test Item Value Reference Range Comments WHITE BLOOD CELL COUNT (BEAKER) (test xvtj=956) 12.3 K/ L 3.5-10.5 RED BLOOD CELL COUNT (BEAKER) (test ncpq=750) 4.76 M/ L 3.93-5.22 HEMOGLOBIN (BEAKER) (test esvj=113) 13.1 GM/DL 11.2-15.7 HEMATOCRIT (BEAKER) (test jmuc=450) 40.6 % 34.1-44.9 MEAN CORPUSCULAR VOLUME (BEAKER) (test tvjg=574) 85.3 fL 79.4-94.8 MEAN CORPUSCULAR HEMOGLOBIN (BEAKER) (test 27.5 pg 25.6-32.2 qodb=868) MEAN CORPUSCULAR HEMOGLOBIN CONC (BEAKER) (test 32.3 GM/DL 32.2-35.5 tkyo=526) RED CELL DISTRIBUTION WIDTH (BEAKER) (test 13.1 % 11.7-14.4 ntex=932) PLATELET COUNT (BEAKER) (test vuyi=291) 254 K/CU MM 150-450 MEAN PLATELET VOLUME (BEAKER) (test iogb=649) 11.1 fL 9.4-12.3 NUCLEATED RED BLOOD CELLS (BEAKER) (test 0 /100 WBC 0-0 ahpp=878) NEUTROPHILS RELATIVE PERCENT (BEAKER) (test 68 % wacm=189) LYMPHOCYTES RELATIVE PERCENT (BEAKER) (test 24 % ngey=771) MONOCYTES RELATIVE PERCENT (BEAKER) (test 6 % dxje=251) EOSINOPHILS RELATIVE PERCENT (BEAKER) (test 1 % tpuk=279) BASOPHILS RELATIVE PERCENT (BEAKER) (test 0 % tutv=103) NEUTROPHILS ABSOLUTE COUNT (BEAKER) (test 8.42 K/ L 1.56-6.13 fapt=065) LYMPHOCYTES ABSOLUTE COUNT (BEAKER) (test 2.90 K/ L 1.18-3.74 mgmm=510) MONOCYTES ABSOLUTE COUNT (BEAKER) (test 0.79 K/ L 0.24-0.36 apol=296) EOSINOPHILS ABSOLUTE COUNT (BEAKER) (test 0.07 K/ L 0.04-0.36 oozf=665) BASOPHILS ABSOLUTE COUNT (BEAKER) (test 0.05 K/ L 0.01-0.08 zcwp=768) IMMATURE GRANULOCYTES-RELATIVE PERCENT (BEAKER) 1 % 0-1 (test caat=0227) POCT-GLUCOSE [id number] 13:38:00 Test Item Value Reference Range Comments POC-GLUCOSE METER (BEAKER) 219 mg/dL 70-110 TESTED AT [address] (test ylyh=9220) [place] [id number] POCT-GLUCOSE [id number] 12:34:00 Test Item Value Reference Range Comments POC-GLUCOSE METER (BEAKER) 193 mg/dL 70-110 TESTED AT [address] (test wqxf=6114) [place] [id number] POCT-GLUCOSE [id number] 16:17:00 Test Item Value Reference Range Comments POC-GLUCOSE METER (BEAKER) 244 mg/dL 70-110 TESTED AT [address] (test dnto=0531) [place] [id number] POCT-GLUCOSE [id number] 12:08:00 Test Item Value Reference Range Comments POC-GLUCOSE METER (BEAKER) 229 mg/dL 70-110 TESTED AT [address] (test ogda=4123) [place] [id number] POCT-GLUCOSE [id number] 08:27:00 Test Item Value Reference Range Comments POC-GLUCOSE METER (BEAKER) 280 mg/dL 70-110 TESTED AT [address] (test kdfb=4337) [facility] [address] OSMOLALITY, [id number] 05:16:00 Test Item Value Reference Range Comments OSMOLALITY URINE (BEAKER) (test haoh=841) 340 mOsm/kg 40-1,400 SPECIFIC GRAVITY, [id number] 04:53:00 Test Item Value Reference Range Comments SPECIFIC GRAVITY UA (BEAKER) (test tfpc=950) 1.010 1.001-1.035 POCT-GLUCOSE [id number] 22:29:00 Test Item Value Reference Range Comments POC-GLUCOSE METER (BEAKER) 257 mg/dL 70-110 TESTED AT [address] (test zomg=6636) [place] [id number] BASIC METABOLIC [id number] 17:49:00 Test Item Value Reference Range Comments SODIUM (BEAKER) (test 137 meq/L 136-145 esxj=131) POTASSIUM (BEAKER) (test 4.6 meq/L 3.5-5.1 lwex=838) CHLORIDE (BEAKER) (test 102 meq/L 98-107 yfxg=610) CO2 (BEAKER) (test 26 meq/L 22-29 ajwi=354) BLOOD UREA NITROGEN 14 mg/dL 7-21 (BEAKER) (test olwt=803) CREATININE (BEAKER) (test 0.78 mg/dL 0.57-1.25 oafi=134) GLUCOSE RANDOM (BEAKER) 246 mg/dL 70-105 (test qenz=090) CALCIUM (BEAKER) (test 8.7 mg/dL 8.4-10.2 nimj=758) EGFR (BEAKER) (test 79 mL/min/1.73 sq m ESTIMATED GFR IS NOT zswg=1039) ACCURATE CREATININE CLEARANCE IN PREDICTING GLOMERULAR FILTRATION RATE. ESTIMATED GFR IS NOT APPLICABLE FOR DIALYSIS PATIENTS. POCT-GLUCOSE [id number] 17:02:00 Test Item Value Reference Range Comments POC-GLUCOSE METER (BEAKER) 235 mg/dL 70-110 TESTED AT [address] (test aujx=4600) [place] [id number] POCT-GLUCOSE [id number] 12:06:00 Test Item Value Reference Range Comments POC-GLUCOSE METER (BEAKER) 249 mg/dL 70-110 TESTED AT [address] (test dcir=5860) [place] [address] POCT-GLUCOSE [id number] 09:40:00 Test Item Value Reference Range Comments POC-GLUCOSE METER (BEAKER) 278 mg/dL 70-110 TESTED AT [address] (test eyqc=4683) [place] [address] BASIC METABOLIC [id number] 06:14:00 Test Item Value Reference Range Comments SODIUM (BEAKER) (test 141 meq/L 136-145 pmix=615) POTASSIUM (BEAKER) (test 4.1 meq/L 3.5-5.1 mvjx=013) CHLORIDE (BEAKER) (test 104 meq/L 98-107 gxtf=577) CO2 (BEAKER) (test 30 meq/L 22-29 sqdc=238) BLOOD UREA NITROGEN 14 mg/dL 7-21 (BEAKER) (test ywog=191) CREATININE (BEAKER) (test 0.70 mg/dL 0.57-1.25 dvfx=391) GLUCOSE RANDOM (BEAKER) 146 mg/dL 70-105 (test ykpf=585) CALCIUM (BEAKER) (test 9.4 mg/dL 8.4-10.2 itzf=233) EGFR (BEAKER) (test 89 mL/min/1.73 sq m ESTIMATED GFR IS NOT hass=7585) ACCURATE CREATININE CLEARANCE IN PREDICTING GLOMERULAR FILTRATION RATE. ESTIMATED GFR IS NOT APPLICABLE FOR DIALYSIS PATIENTS. [id number] 06:03:00 Test Item Value Reference Range Comments PROTIME (BEAKER) (test ewlt=424) 13.8 seconds 11.7-14.7 INR (BEAKER) (test qjnv=811) 1.1 <=5.9 PARTIAL THROMBOPLASTIN TIME (BEAKER) (test 32.0 seconds 22.5-36.0 oowv=191) RECOMMENDED COUMADIN/WARFARIN INR THERAPY RANGESSTANDARD DOSE: 2.0 - 3.0 Includes: PROPHYLAXIS forvenous thrombosis, systemic embolization; TREATMENT for venous thrombosis and/or pulmonary embolus.HIGH RISK: Target INR is 2.5-3.5 for patients with mechanical heart valves. SCREEN, [id number] 05: 59:00 Test Item Value Reference Range Comments TEST URINE (BEAKER) (test koci=735) Negative POCT-GLUCOSE [id number] 05:46:00 Test Item Value Reference Range Comments POC-GLUCOSE METER (BEAKER) 140 mg/dL 70-110 TESTED AT [facility] [address] [facility] (test zwjo=8880) [facility] [address] CBC W/PLT COUNT & AUTO [id number] 05:46:00 Test Item Value Reference Range Comments WHITE BLOOD CELL COUNT (BEAKER) (test vgvr=061) 9.6 K/ L 3.5-10.5 RED BLOOD CELL COUNT (BEAKER) (test ptsw=238) 5.00 M/ L 3.93-5.22 HEMOGLOBIN (BEAKER) (test ewqi=305) 14.0 GM/DL 11.2-15.7 HEMATOCRIT (BEAKER) (test bwyz=266) 42.1 % 34.1-44.9 MEAN CORPUSCULAR VOLUME (BEAKER) (test okog=866) 84.2 fL 79.4-94.8 MEAN CORPUSCULAR HEMOGLOBIN (BEAKER) (test 28.0 pg 25.6-32.2 uima=874) MEAN CORPUSCULAR HEMOGLOBIN CONC (BEAKER) (test 33.3 GM/DL 32.2-35.5 ranl=110) RED CELL DISTRIBUTION WIDTH (BEAKER) (test 13.0 % 11.7-14.4 ilql=751) PLATELET COUNT (BEAKER) (test hmcb=805) 227 K/CU MM 150-450 MEAN PLATELET VOLUME (BEAKER) (test ewrq=756) 11.8 fL 9.4-12.3 NUCLEATED RED BLOOD CELLS (BEAKER) (test 0 /100 WBC 0-0 bgpl=173) NEUTROPHILS RELATIVE PERCENT (BEAKER) (test 52 % qmyw=134) LYMPHOCYTES RELATIVE PERCENT (BEAKER) (test 38 % yrag=335) MONOCYTES RELATIVE PERCENT (BEAKER) (test 6 % txfa=647) EOSINOPHILS RELATIVE PERCENT (BEAKER) (test 3 % tawt=588) BASOPHILS RELATIVE PERCENT (BEAKER) (test 1 % otdu=197) NEUTROPHILS ABSOLUTE COUNT (BEAKER) (test 5.03 K/ L 1.56-6.13 nohp=905) LYMPHOCYTES ABSOLUTE COUNT (BEAKER) (test 3.62 K/ L 1.18-3.74 cfrx=836) MONOCYTES ABSOLUTE COUNT (BEAKER) (test 0.62 K/ L 0.24-0.36 dmuy=394) EOSINOPHILS ABSOLUTE COUNT (BEAKER) (test 0.27 K/ L 0.04-0.36 tdrx=207) BASOPHILS ABSOLUTE COUNT (BEAKER) (test 0.05 K/ L 0.01-0.08 pjzs=582) IMMATURE GRANULOCYTES-RELATIVE PERCENT (BEAKER) 1 % 0-1 (test rekl=0982) POCT-GLUCOSE [id number] 21:27:00 Test Item Value Reference Range Comments POC-GLUCOSE METER (BEAKER) 223 mg/dL 70-110 TESTED AT [address] (test qnwh=8163) [place] [address] POCT-GLUCOSE [id number] 17:26:00 Test Item Value Reference Range Comments POC-GLUCOSE METER (BEAKER) 223 mg/dL 70-110 TESTED AT [address] (test onfw=1503) [place] [address] BASIC METABOLIC [id number] 16:43:00 Test Item Value Reference Range Comments SODIUM (BEAKER) (test 139 meq/L 136-145 epui=686) POTASSIUM (BEAKER) (test 4.5 meq/L 3.5-5.1 Specimen slightly gpey=358) hemolyzed CHLORIDE (BEAKER) (test 102 meq/L 98-107 kehl=426) CO2 (BEAKER) (test 29 meq/L 22-29 yyxz=421) BLOOD UREA NITROGEN 16 mg/dL 7-21 (BEAKER) (test mpqd=458) CREATININE (BEAKER) (test 0.76 mg/dL 0.57-1.25 Specimen slightly cqrb=228) hemolyzed GLUCOSE RANDOM (BEAKER) 217 mg/dL 70-105 (test qrif=189) CALCIUM (BEAKER) (test 9.6 mg/dL 8.4-10.2 pnup=225) EGFR (BEAKER) (test 81 mL/min/1.73 sq m ESTIMATED GFR IS NOT uabd=3982) ACCURATE CREATININE CLEARANCE IN PREDICTING GLOMERULAR FILTRATION RATE. ESTIMATED GFR IS NOT APPLICABLE FOR DIALYSIS PATIENTS. POCT-GLUCOSE [id number] 09:06:00 Test Item Value Reference Range Comments POC-GLUCOSE METER (BEAKER) 265 mg/dL 70-110 TESTED AT [address] (test gffi=6485) [place] [id number] POCT-GLUCOSE [id number] 00:22:00 Test Item Value Reference Range Comments POC-GLUCOSE METER (BEAKER) 210 mg/dL 70-110 TESTED AT [address] (test lerp=6008) [place] [address] POCT-GLUCOSE [id number] 20:27:00 Test Item Value Reference Range Comments POC-GLUCOSE METER (BEAKER) 235 mg/dL 70-110 TESTED AT [address] (test dgux=2983) [place] [address] POCT-GLUCOSE [id number] 17:10:00 Test Item Value Reference Range Comments POC-GLUCOSE METER (BEAKER) 264 mg/dL 70-110 TESTED AT [address] (test jzwm=6719) [place] [address] POCT-GLUCOSE [id number] 16:00:00 Test Item Value Reference Range Comments POC-GLUCOSE METER (BEAKER) 242 mg/dL 70-110 TESTED AT [address] (test bwup=2009) [place] [address] POCT-GLUCOSE [id number] 08:54:00 Test Item Value Reference Range Comments POC-GLUCOSE METER (BEAKER) 224 mg/dL 70-110 TESTED AT [address] (test pbms=8367) [place] [address]30 POCT-GLUCOSE [id number] 21:30:00 Test Item Value Reference Range Comments POC-GLUCOSE METER (BEAKER) 254 mg/dL 70-110 TESTED AT [address] (test jhua=3885) [place] [address] POCT-GLUCOSE [id number] 17:23:00 Test Item Value Reference Range Comments POC-GLUCOSE METER (BEAKER) 193 mg/dL 70-110 TESTED AT [address] (test ytqe=1084) [place] [address] POCT-GLUCOSE [id number] 11:53:00 Test Item Value Reference Range Comments POC-GLUCOSE METER (BEAKER) 179 mg/dL 70-110 TESTED AT [address] (test armp=3304) [place] [address] [id number] 10:15:00 Test Item Value Reference Range Comments CORTISOL, TOTAL (BEAKER) (test aces=0504) 4.7 ug/dL 3.7-19.4 POCT-GLUCOSE [id number] 08:07:00 Test Item Value Reference Range Comments POC-GLUCOSE METER (BEAKER) 184 mg/dL 70-110 TESTED AT [address] (test ecbe=1561) [place] [address] CT, BRAIN, WITHOUT [id number] 22:07:00FINAL REPORT CT Head without contrast CLINICAL [...] [place] Verified Date/Time: 06/20/2018 22:07:25 Reading Location: [address] Transitional Reading Room POCT-GLUCOSE [id number] 21:00:00 Test Item Value Reference Range Comments POC-GLUCOSE METER (BEAKER) 227 mg/dL 70-110 TESTED AT [address] (test sucs=8507) [place] [address] POCT-GLUCOSE [id number] 16:57:00 Test Item Value Reference Range Comments POC-GLUCOSE METER (BEAKER) 216 mg/dL 70-110 TESTED AT [address] (test agxu=3601) [place] [address] POCT-GLUCOSE [id number] 13:11:00 Test Item Value Reference Range Comments POC-GLUCOSE METER (BEAKER) 198 mg/dL 70-110 TESTED AT [address] (test uats=2376) [place] [id number] POCT-GLUCOSE [id number] 07:47:00 Test Item Value Reference Range Comments POC-GLUCOSE METER (BEAKER) 213 mg/dL 70-110 TESTED AT [address] (test qtrn=1854) [place] [address] BASIC METABOLIC [id number] 06:57:00 Test Item Value Reference Range Comments SODIUM (BEAKER) (test 138 meq/L 136-145 fkiz=510) POTASSIUM (BEAKER) (test 3.9 meq/L 3.5-5.1 dqxd=934) CHLORIDE (BEAKER) (test 105 meq/L 98-107 ifyq=729) CO2 (BEAKER) (test 24 meq/L 22-29 lgpj=173) BLOOD UREA NITROGEN 12 mg/dL 7-21 (BEAKER) (test yvvs=648) CREATININE (BEAKER) (test 0.73 mg/dL 0.57-1.25 ppah=100) GLUCOSE RANDOM (BEAKER) 192 mg/dL 70-105 (test auhr=612) CALCIUM (BEAKER) (test 8.8 mg/dL 8.4-10.2 zypm=615) EGFR (BEAKER) (test 85 mL/min/1.73 sq m ESTIMATED GFR IS NOT lcxy=3133) ACCURATE CREATININE CLEARANCE IN PREDICTING GLOMERULAR FILTRATION RATE. ESTIMATED GFR IS NOT APPLICABLE FOR DIALYSIS PATIENTS. POCT-GLUCOSE [id number] 05:24:00 Test Item Value Reference Range Comments POC-GLUCOSE METER (BEAKER) 192 mg/dL 70-110 TESTED AT [facility] [address] [facility] (test sbbp=9516) [facility] [address] [address], [place] [id number] 01:03:00FINAL REPORT CLINICAL HISTORY: Stroke TECHNIQUE: Initially, [...] Date/ Time: 06/20/2018 01:03:44 Reading Location: [address] Transitional Reading Room [facility], [place], [id number] 01:03:00FINAL REPORT CLINICAL HISTORY: Stroke TECHNIQUE: Initially, [...] Verified Date/ Time: 06/20/2018 01:03:44 Reading Location: [address] Reading Room POCT-GLUCOSE [id number] 00:40:00 Test Item Value Reference Range Comments POC-GLUCOSE METER (BEAKER) 283 mg/dL 70-110 TESTED AT [address] (test qtak=8727) [facility] [address] POCT-GLUCOSE [id number] 21:21:00 Test Item Value Reference Range Comments POC-GLUCOSE METER (BEAKER) 343 mg/dL 70-110 TESTED AT [address] (test ditp=9506) [facility] [address] SCREEN, [id number] 18:52:00 Test Item Value Reference Range Comments TEST URINE (BEAKER) (test cedb=471) Negative POCT-GLUCOSE [id number] 17:17:00 Test Item Value Reference Range Comments POC-GLUCOSE METER (BEAKER) 287 mg/dL 70-110 TESTED AT [facility] [address] [facility] (test kygy=1955) [facility] [address] [id number] 15:59:00 Test Item Value Reference Range Comments RPR SCREEN (BEAKER) (test mdzv=925) Nonreactive Nonreactive POCT-GLUCOSE [id number] 15:07:00 Test Item Value Reference Range Comments POC-GLUCOSE METER (BEAKER) 323 mg/dL 70-110 TESTED AT [address] (test yeas=9114) [place] [id number] T4, [id number] 13:11:00 Test Item Value Reference Range Comments FREE T4 (BEAKER) (test iycg=098) 0.89 ng/dL 0.70-1.48 HIV-1 ANTIGEN WITH HIV-1/2 [id number] 13:11:00 Test Item Value Reference Range Comments HIV-1 ANTIGEN WITH HIV 1\\T\\2 ANTIBODY (2) Nonreactive Nonreactive (BEAKER) (test lplb=1028) RAPID DRUG SCREEN, [id number] 12:47:00 Test Item Value Reference Range Comments BARBITURATE URINE (BEAKER) (test naye=357) Negative Negative BENZODIAZEPINE SCREEN URINE (BEAKER) (test Negative Negative vnwc=006) COCAINE (METAB.) SCREEN (BEAKER) (test osqb=0687) Negative Negative METHADONE SCREEN (BEAKER) (test rsgt=8347) Negative Negative OPIATE SCREEN URINE (BEAKER) (test dpqo=116) Negative Negative CANNABINOID SCREEN URINE (BEAKER) (test cigg=665) Negative Negative AMPH/METHAMPH SCREEN (BEAKER) (test afww=3532) Negative Negative PHENCYCLIDINE SCREEN URINE (BEAKER) (test ojqa=905) Negative Negative OXYCODONE SCREEN URINE (BEAKER) (test tsle=8828) Negative Negative DRUG CUTOFF CONC.Cocaine 300 ng/mL Cannabinoid 50 ng/mL Benzodiazepine 200 ng/mLBarbiturate 200 ng/ mLPhencyclidine 25 ng/mLOpiate 300 ng/mLMethadone 300 ng/mLAmphetamine/ 1000 ng/mL MethamphetamineOxycodone 300 ng/mLThis assay provides an unconfirmed qualitative test result for the clinical management of patients in emergency situations. Chain of custody not maintained. Some pydm-pio-svhvccj medications, as well as adulterants, may cause inaccurate results. Clinical correlation should be applied. A more comprehensive drug screen or confirmation of a detected drug may be performed upon request.POCT-GLUCOSE [id number] 12:37:00 Test Item Value Reference Range Comments POC-GLUCOSE METER (BEAKER) 292 mg/dL 70-110 TESTED AT [facility] [address] [facility] (test qrqq=2984) [facility] [address] HEMOGLOBIN [id number] 12:35:00 Test Item Value Reference Range Comments HEMOGLOBIN A1C (BEAKER) (test dgyo=655) 7.9 % 4.3-6.1 OSMOLALITY, [id number] 12:34:00 Test Item Value Reference Range Comments OSMOLALITY, SERUM (BEAKER) (test pkgq=131) 310 mOsm/kg 275-295 C-REACTIVE [id number] 12:28:00 Test Item Value Reference Range Comments C-REACTIVE PROTEIN (BEAKER) (test tofg=649) 0.81 mg/dL 0.00-0.50 OSMOLALITY, [id number] 12:22:00 Test Item Value Reference Range Comments OSMOLALITY URINE (BEAKER) (test qejl=930) 247 mOsm/kg 40-1,400 CBC W/PLT COUNT & AUTO [id number] 12:14:00 Test Item Value Reference Range Comments WHITE BLOOD CELL COUNT (BEAKER) (test hwax=529) 15.1 K/ L 3.5-10.5 RED BLOOD CELL COUNT (BEAKER) (test ycsr=929) 5.15 M/ L 3.93-5.22 HEMOGLOBIN (BEAKER) (test nory=688) 14.1 GM/DL 11.2-15.7 HEMATOCRIT (BEAKER) (test uxwn=730) 42.3 % 34.1-44.9 MEAN CORPUSCULAR VOLUME (BEAKER) (test kjrq=400) 82.1 fL 79.4-94.8 MEAN CORPUSCULAR HEMOGLOBIN (BEAKER) (test 27.4 pg 25.6-32.2 pelj=105) MEAN CORPUSCULAR HEMOGLOBIN CONC (BEAKER) (test 33.3 GM/DL 32.2-35.5 vzye=314) RED CELL DISTRIBUTION WIDTH (BEAKER) (test 12.9 % 11.7-14.4 dxkn=820) PLATELET COUNT (BEAKER) (test vmpn=082) 278 K/CU MM 150-450 MEAN PLATELET VOLUME (BEAKER) (test vvru=815) 11.5 fL 9.4-12.3 NUCLEATED RED BLOOD CELLS (BEAKER) (test 0 /100 WBC 0-0 djso=224) NEUTROPHILS RELATIVE PERCENT (BEAKER) (test 87 % oufd=675) LYMPHOCYTES RELATIVE PERCENT (BEAKER) (test 10 % kjoy=978) MONOCYTES RELATIVE PERCENT (BEAKER) (test 3 % zwlo=802) EOSINOPHILS RELATIVE PERCENT (BEAKER) (test 0 % zxlo=202) BASOPHILS RELATIVE PERCENT (BEAKER) (test 0 % herp=946) NEUTROPHILS ABSOLUTE COUNT (BEAKER) (test 13.06 K/ L 1.56-6.13 exmt=761) LYMPHOCYTES ABSOLUTE COUNT (BEAKER) (test 1.51 K/ L 1.18-3.74 bayt=249) MONOCYTES ABSOLUTE COUNT (BEAKER) (test 0.38 K/ L 0.24-0.36 lhtf=784) EOSINOPHILS ABSOLUTE COUNT (BEAKER) (test 0.00 K/ L 0.04-0.36 gzpx=242) BASOPHILS ABSOLUTE COUNT (BEAKER) (test 0.02 K/ L 0.01-0.08 ymdg=789) IMMATURE GRANULOCYTES-RELATIVE PERCENT (BEAKER) 1 % 0-1 (test icjp=4441) POCT-GLUCOSE [id number] 10:30:00 Test Item Value Reference Range Comments POC-GLUCOSE METER (BEAKER) 341 mg/dL 70-110 TESTED AT [address] (test yjtm=0123) [facility] [id number] 06:17:00 Test Item Value Reference Range Comments PROLACTIN (BEAKER) (test rjbh=228) 23.34 ng/mL 5.18-26.53 POCT-GLUCOSE [id number] 05:55:00 Test Item Value Reference Range Comments POC-GLUCOSE METER (BEAKER) 285 mg/dL 70-110 TESTED AT [address] (test tnaj=2017) [facility] [id number] MR, BRAIN, [id number] 02:25:00Pituitary protocolCr 0.6FINAL REPORT MRI brain with and without contrast Comparison: None. 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 Discussion: Multiplanar MR imaging of the brain and sella was provided azb-sof-qzau IV gadolinium administration using T1, T2, FLAIR, [...] MDReport Verified Date/Time: 06/19/2018 02:25:15 Reading Location: [address] Body Reading Room TSH/FREE T4 IF [id number] 00:26:00 Test Item Value Reference Range Comments THYROID STIMULATING HORMONE (BEAKER) (test 0.41 uIU/mL 0.35-4.94 rrbf=572) BASIC METABOLIC [id number] 00:07:00 Test Item Value Reference Range Comments SODIUM (BEAKER) (test 136 meq/L 136-145 zhqk=349) POTASSIUM (BEAKER) (test 4.0 meq/L 3.5-5.1 qlwg=625) CHLORIDE (BEAKER) (test 103 meq/L 98-107 iqgo=117) CO2 (BEAKER) (test 20 meq/L 22-29 qqpt=602) BLOOD UREA NITROGEN 11 mg/dL 7-21 (BEAKER) (test hhhy=119) CREATININE (BEAKER) (test 0.84 mg/dL 0.57-1.25 rixd=428) GLUCOSE RANDOM (BEAKER) 357 mg/dL 70-105 (test hxxf=183) CALCIUM (BEAKER) (test 9.0 mg/dL 8.4-10.2 abgv=990) EGFR (BEAKER) (test 72 mL/min/1.73 sq m ESTIMATED GFR IS NOT ojys=8036) ACCURATE CREATININE CLEARANCE IN PREDICTING GLOMERULAR FILTRATION RATE. ESTIMATED GFR IS NOT APPLICABLE FOR DIALYSIS PATIENTS. URINALYSIS W/ REFLEX URINE [id number] 23:13:00 Test Item Value Reference Range Comments COLOR (BEAKER) (test ndep=877) Yellow CLARITY (BEAKER) (test xrkg=591) Clear SPECIFIC GRAVITY UA (BEAKER) (test vnap=287) 1.011 1.001-1.035 PH UA (BEAKER) (test vkjx=771) 5.0 5.0-8.0 PROTEIN UA (BEAKER) (test ndoa=469) Negative Negative GLUCOSE UA (BEAKER) (test kxvf=783) >1000 mg/dL Negative KETONES UA (BEAKER) (test yfnj=600) 20 mg/dL Negative BILIRUBIN UA (BEAKER) (test lbkz=338) Negative Negative BLOOD UA (BEAKER) (test esib=794) Negative Negative NITRITE UA (BEAKER) (test ycwl=048) Negative Negative LEUKOCYTE ESTERASE UA (BEAKER) (test ajdo=532) Negative Negative UROBILINOGEN UA (BEAKER) (test rybc=607) 0.2 mg/dL 0.2-1.0 RBC UA (BEAKER) (test quyw=242) < /HPF WBC UA (BEAKER) (test afwm=053) < /HPF SQUAMOUS EPITHELIAL (BEAKER) (test eguv=979) < /HPF SOURCE(BEAKER) (test jtiu=3095)
--- OUTSIDE RECORDS SUMMARY | 2019-06-02 05:12 | XMS REPORT ---
:1970 Author Organization [employer] Care Team Providers Name Role Phone Linnea Logan Provider Role Unavailable Allergies, Adverse Reactions, [...] Condition Status Problem Anxiety F41.9 Active Problem Hyperlipidemia E78.5 Active Problem Hypertension I10 Active Problem Dental abscess K04.7 Active Problem Seasonal allergic rhinitis due to J30.1 Active pollen Problem Essential hypertension I10 Active Problem Migraines G43.909 Active Problem Allergic rhinitis, unspecified J30.9 Active Problem Fatty liver K76.0 Active Problem Type 2 diabetes mellitus without E11.9 Active complication, without long-term current use of insulin Assessment Hypothyroidism E03.9 Active Assessment Type 2 diabetes mellitus without E11.9 Active complication, without long-term current use of insulin Assessment Essential hypertension I10 Active Problem Hypothyroidism E03.9 Active Medications Medication Code Code Instructions Start End Status Dosage System Date Date MetFORMIN HCl ER ND 78700149042 750 MG Orally Active 1 tablet Once a day with evening meal Levothyroxine ND 69361608711 88 MCG Oral Active TAKE 1 Sodium TABLET BY MOUTH EVERY MORNING GlyBURIDE ND 67764151641 5 MG Orally BID Active 2 tabs bid with meal Losartan ND 11864642579 100-12.5 MG Oct 10, Active 1 tablet Potassium-HCTZ Orally Once a 2019 day Losartan ND 37228502861 50 MG Orally Active 1 tablet Potassium Once a day Hydrocortisone ND 11754731337 10 MG Orally Active 1 tablet every 12 hrs with food or milk Amlodipine ND 04437935849 10 MG Orally Active 1 tablet Besylate Once a day Results No Known Results Summary Purpose [employer]ClinicalWorks Submission
== END 2019-05-30 11:54 | disposition home or self-care (01) ==
LOC: ER 09:47
DX: R07.82 Intercostal pain (principal); I10 Essential (primary) hypertension; E11.9 Type 2 diabetes mellitus without complications; E03.9 Hypothyroidism, unspecified; J45.909 Unspecified asthma, uncomplicated; Z79.4 Long term (current) use of insulin; Z88.1 Allergy status to other antibiotic agents; Z88.2 Allergy status to sulfonamides; Z88.5 Allergy status to narcotic agent; Z91.048 Other nonmedicinal substance allergy status
CPT/HCPCS: 99283

== ENCOUNTER 2019-07-22 11:50 | Emergency (ER) | payer BC ==
--- OUTSIDE RECORDS SUMMARY | 2019-07-22 12:00 | XMS REPORT ---
:1970 Author Organization [facility] Address [address] [place] [address] Dr. Holbrook [address] [place] [id number] Care Team Providers Name Role Phone DAJUAN GEORGE Unavailable Unavailable MITCHELL DOBSON Unavailable Unavailable Problems This patient has no known problems. Allergies, Adverse Reactions, Alerts This patient has no known allergies or adverse reactions. Medications This patient has no known medications. Results Test Description Test Time Test Comments Text Results Atomic Results Result Comments TISSUE EXAM 2018-06-28 08:38:00 Surgical Pathology Report Case: [id number] Authorizing Provider: Alex Ruano MD Collected: 06/24/2018801 Ordering Location: [address] Received: 06/24/2018 0809 Service Pathologist: Chon Andino MD Specimens: A) - Tumor, pituitary tumor B) - Tumor, pituitary tumor A.PITUITARY GLAND, TRANSSPHENOIDAL 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 PITUITARY GLAND, TRANSSPHENOIDAL HYPOPHYSECTOMY:NULL CELL ADENOMAENTRAPPED ADENOHYPOPHYSIS Signing Pathologist Direct Phone Line: [phone] signed by Chon Andino MD on 06/28/2018 at 8:38 AMImmunoperoxidase stains performed on the second specimen show that the tumor has no staining for growth hormone, LH, FSH, TSH, prolactin, or ACTH. 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 The MIB-1 proliferation index is less than 1%. 23248 x 2; 73820; 07453; 01286 x 6; 23017Oqkgpscar adenoma A. Pituitary tumor; B. Pituitary tumorA. [...] stains. Immunohistochemistry technical testing was performed at [facility], Pathology Laboratory where it was [...] 141 mg/dL 70-[address] [facility] [address] [place] [address] fpox=2586) [facility] [address] POCT-GLUCOSE [id number] 12:06:00 Test Item Value Reference Range Comments POC-GLUCOSE METER (BEAKER) 217 mg/dL 70-110 TESTED AT [address] (test ppln=3331) [facility] [address] BASIC METABOLIC [id number] 07:18:00 Test Item Value Reference Range Comments SODIUM (BEAKER) (test 139 meq/L 136-145 axek=229) POTASSIUM (BEAKER) (test 4.1 meq/L 3.5-5.1 vqsa=818) CHLORIDE (BEAKER) (test 105 meq/L 98-107 ugtf=100) CO2 (BEAKER) (test 28 meq/L 22-29 hsqi=313) BLOOD UREA NITROGEN 11 mg/dL 7-21 (BEAKER) (test yiqr=254) CREATININE (BEAKER) (test 0.69 mg/dL 0.57-1.25 iyhw=582) GLUCOSE RANDOM (BEAKER) 163 mg/dL 70-105 (test ijvl=295) CALCIUM (BEAKER) (test 8.6 mg/dL 8.4-10.2 gskn=145) EGFR (BEAKER) (test 91 mL/min/1.73 sq m ESTIMATED GFR IS NOT rdmz=3332) ACCURATE CREATININE CLEARANCE IN PREDICTING GLOMERULAR FILTRATION RATE. ESTIMATED GFR IS NOT APPLICABLE FOR DIALYSIS PATIENTS. CBC W/PLT COUNT & AUTO [id number] 06:49:00 Test Item Value Reference Range Comments WHITE BLOOD CELL COUNT (BEAKER) (test qtwj=920) 8.7 K/ L 3.5-10.5 RED BLOOD CELL COUNT (BEAKER) (test iipn=414) 4.82 M/ L 3.93-5.22 HEMOGLOBIN (BEAKER) (test unjd=779) 13.2 GM/DL 11.2-15.7 HEMATOCRIT (BEAKER) (test trgm=548) 40.8 % 34.1-44.9 MEAN CORPUSCULAR VOLUME (BEAKER) (test uafd=846) 84.6 fL 79.4-94.8 MEAN CORPUSCULAR HEMOGLOBIN (BEAKER) (test 27.4 pg 25.6-32.2 jljv=763) MEAN CORPUSCULAR HEMOGLOBIN CONC (BEAKER) (test 32.4 GM/DL 32.2-35.5 pwnx=209) RED CELL DISTRIBUTION WIDTH (BEAKER) (test 13.2 % 11.7-14.4 jtfq=246) PLATELET COUNT (BEAKER) (test sahb=368) 233 K/CU MM 150-450 MEAN PLATELET VOLUME (BEAKER) (test ffaq=882) 11.5 fL 9.4-12.3 NUCLEATED RED BLOOD CELLS (BEAKER) (test 0 /100 WBC 0-0 ngkm=828) NEUTROPHILS RELATIVE PERCENT (BEAKER) (test 65 % zigb=912) LYMPHOCYTES RELATIVE PERCENT (BEAKER) (test 24 % demp=304) MONOCYTES RELATIVE PERCENT (BEAKER) (test 8 % ohfe=156) EOSINOPHILS RELATIVE PERCENT (BEAKER) (test 2 % awar=126) BASOPHILS RELATIVE PERCENT (BEAKER) (test 0 % adtt=915) NEUTROPHILS ABSOLUTE COUNT (BEAKER) (test 5.65 K/ L 1.56-6.13 jumg=257) LYMPHOCYTES ABSOLUTE COUNT (BEAKER) (test 2.07 K/ L 1.18-3.74 efqj=866) MONOCYTES ABSOLUTE COUNT (BEAKER) (test 0.70 K/ L 0.24-0.36 best=907) EOSINOPHILS ABSOLUTE COUNT (BEAKER) (test 0.16 K/ L 0.04-0.36 ywhc=923) BASOPHILS ABSOLUTE COUNT (BEAKER) (test 0.02 K/ L 0.01-0.08 dvcy=061) IMMATURE GRANULOCYTES-RELATIVE PERCENT (BEAKER) 1 % 0-1 (test txyg=8246) BASIC METABOLIC [id number] 23:52:00 Test Item Value Reference Range Comments SODIUM (BEAKER) (test 139 meq/L 136-145 zadl=601) POTASSIUM (BEAKER) (test 4.0 meq/L 3.5-5.1 Specimen slightly dgat=057) hemolyzed CHLORIDE (BEAKER) (test 103 meq/L 98-107 ahbu=683) CO2 (BEAKER) (test 28 meq/L 22-29 pylv=967) BLOOD UREA NITROGEN 12 mg/dL 7-21 (BEAKER) (test ogti=979) CREATININE (BEAKER) (test 0.72 mg/dL 0.57-1.25 Specimen slightly lykx=897) hemolyzed GLUCOSE RANDOM (BEAKER) 193 mg/dL 70-105 (test kamd=009) CALCIUM (BEAKER) (test 8.6 mg/dL 8.4-10.2 boce=073) EGFR (BEAKER) (test 86 mL/min/1.73 sq m ESTIMATED GFR IS NOT idfz=9601) ACCURATE CREATININE CLEARANCE IN PREDICTING GLOMERULAR FILTRATION RATE. ESTIMATED GFR IS NOT APPLICABLE FOR DIALYSIS PATIENTS. SODIUM, RANDOM [id number] 23:49:00 Test Item Value Reference Range Comments SODIUM URINE (BEAKER) (test tumm=118) < meq/L Reference Range: No NormalsCBC W/PLT COUNT & AUTO [id number] 23: 35:00 Test Item Value Reference Range Comments WHITE BLOOD CELL COUNT (BEAKER) (test gnvh=032) 9.7 K/ L 3.5-10.5 RED BLOOD CELL COUNT (BEAKER) (test pmby=285) 4.46 M/ L 3.93-5.22 HEMOGLOBIN (BEAKER) (test wtoh=959) 12.2 GM/DL 11.2-15.7 HEMATOCRIT (BEAKER) (test ajqu=610) 37.8 % 34.1-44.9 MEAN CORPUSCULAR VOLUME (BEAKER) (test cdiy=236) 84.8 fL 79.4-94.8 MEAN CORPUSCULAR HEMOGLOBIN (BEAKER) (test 27.4 pg 25.6-32.2 ngvw=805) MEAN CORPUSCULAR HEMOGLOBIN CONC (BEAKER) (test 32.3 GM/DL 32.2-35.5 qniz=912) RED CELL DISTRIBUTION WIDTH (BEAKER) (test 13.0 % 11.7-14.4 qzpv=216) PLATELET COUNT (BEAKER) (test efrf=466) 210 K/CU MM 150-450 MEAN PLATELET VOLUME (BEAKER) (test erwk=611) 11.4 fL 9.4-12.3 NUCLEATED RED BLOOD CELLS (BEAKER) (test 0 /100 WBC 0-0 ezle=480) NEUTROPHILS RELATIVE PERCENT (BEAKER) (test 61 % lqcx=912) LYMPHOCYTES RELATIVE PERCENT (BEAKER) (test 28 % kxjr=459) MONOCYTES RELATIVE PERCENT (BEAKER) (test 8 % fcle=353) EOSINOPHILS RELATIVE PERCENT (BEAKER) (test 2 % opas=533) BASOPHILS RELATIVE PERCENT (BEAKER) (test 0 % vgri=330) NEUTROPHILS ABSOLUTE COUNT (BEAKER) (test 5.87 K/ L 1.56-6.13 eihp=253) LYMPHOCYTES ABSOLUTE COUNT (BEAKER) (test 2.72 K/ L 1.18-3.74 oabs=614) MONOCYTES ABSOLUTE COUNT (BEAKER) (test 0.80 K/ L 0.24-0.36 djan=606) EOSINOPHILS ABSOLUTE COUNT (BEAKER) (test 0.22 K/ L 0.04-0.36 hdyo=873) BASOPHILS ABSOLUTE COUNT (BEAKER) (test 0.03 K/ L 0.01-0.08 umep=316) IMMATURE GRANULOCYTES-RELATIVE PERCENT (BEAKER) 1 % 0-1 (test vwtr=4435) CT, BRAIN, WITHOUT [id number] 22:57:00FINAL REPORT CT Head without contrast CLINICAL [...] Gamboa Verified Date/Time: 06/26/2018 22:57:28 [address] POCT-GLUCOSE [id number] 21:07:00 Test Item Value Reference Range Comments POC-GLUCOSE METER (BEAKER) 211 mg/dL 70-110 TESTED AT [address] (test aljo=2295) [facility] [address] BASIC METABOLIC [id number] 14:29:00 Test Item Value Reference Range Comments SODIUM (BEAKER) (test 137 meq/L 136-145 zpcp=839) POTASSIUM (BEAKER) (test 3.6 meq/L 3.5-5.1 zxpl=778) CHLORIDE (BEAKER) (test 100 meq/L 98-107 zfii=739) CO2 (BEAKER) (test 32 meq/L 22-29 ciic=246) BLOOD UREA NITROGEN 12 mg/dL 7-21 (BEAKER) (test wsam=171) CREATININE (BEAKER) (test 0.71 mg/dL 0.57-1.25 pico=787) GLUCOSE RANDOM (BEAKER) 182 mg/dL 70-105 (test vjhz=331) CALCIUM (BEAKER) (test 8.7 mg/dL 8.4-10.2 efit=503) EGFR (BEAKER) (test 88 mL/min/1.73 sq m ESTIMATED GFR IS NOT xwvu=1444) ACCURATE CREATININE CLEARANCE IN PREDICTING GLOMERULAR FILTRATION RATE. ESTIMATED GFR IS NOT APPLICABLE FOR DIALYSIS PATIENTS. CBC W/PLT COUNT & AUTO [id number] 14:25:00 Test Item Value Reference Range Comments WHITE BLOOD CELL COUNT (BEAKER) (test jkxh=171) 12.3 K/ L 3.5-10.5 RED BLOOD CELL COUNT (BEAKER) (test augp=576) 4.76 M/ L 3.93-5.22 HEMOGLOBIN (BEAKER) (test hkbm=644) 13.1 GM/DL 11.2-15.7 HEMATOCRIT (BEAKER) (test cjoq=755) 40.6 % 34.1-44.9 MEAN CORPUSCULAR VOLUME (BEAKER) (test ppmc=328) 85.3 fL 79.4-94.8 MEAN CORPUSCULAR HEMOGLOBIN (BEAKER) (test 27.5 pg 25.6-32.2 bjeo=523) MEAN CORPUSCULAR HEMOGLOBIN CONC (BEAKER) (test 32.3 GM/DL 32.2-35.5 wsjg=242) RED CELL DISTRIBUTION WIDTH (BEAKER) (test 13.1 % 11.7-14.4 qdsf=861) PLATELET COUNT (BEAKER) (test iwgn=187) 254 K/CU MM 150-450 MEAN PLATELET VOLUME (BEAKER) (test xhzz=294) 11.1 fL 9.4-12.3 NUCLEATED RED BLOOD CELLS (BEAKER) (test 0 /100 WBC 0-0 vcxv=072) NEUTROPHILS RELATIVE PERCENT (BEAKER) (test 68 % jrwf=540) LYMPHOCYTES RELATIVE PERCENT (BEAKER) (test 24 % plrg=205) MONOCYTES RELATIVE PERCENT (BEAKER) (test 6 % uvtb=058) EOSINOPHILS RELATIVE PERCENT (BEAKER) (test 1 % ksvv=626) BASOPHILS RELATIVE PERCENT (BEAKER) (test 0 % sgay=125) NEUTROPHILS ABSOLUTE COUNT (BEAKER) (test 8.42 K/ L 1.56-6.13 wiem=845) LYMPHOCYTES ABSOLUTE COUNT (BEAKER) (test 2.90 K/ L 1.18-3.74 lbzd=673) MONOCYTES ABSOLUTE COUNT (BEAKER) (test 0.79 K/ L 0.24-0.36 ywch=031) EOSINOPHILS ABSOLUTE COUNT (BEAKER) (test 0.07 K/ L 0.04-0.36 btzn=913) BASOPHILS ABSOLUTE COUNT (BEAKER) (test 0.05 K/ L 0.01-0.08 mtqy=871) IMMATURE GRANULOCYTES-RELATIVE PERCENT (BEAKER) 1 % 0-1 (test mlao=7831) POCT-GLUCOSE [id number] 13:38:00 Test Item Value Reference Range Comments POC-GLUCOSE METER (BEAKER) 219 mg/dL 70-110 TESTED AT [address] (test orhq=5966) [place] [address] POCT-GLUCOSE [id number] 12:34:00 Test Item Value Reference Range Comments POC-GLUCOSE METER (BEAKER) 193 mg/dL 70-110 TESTED AT [address] (test ykgi=0770) [place] [address] POCT-GLUCOSE [id number] 16:17:00 Test Item Value Reference Range Comments POC-GLUCOSE METER (BEAKER) 244 mg/dL 70-110 TESTED AT [address] (test kqve=6827) [place] [address] POCT-GLUCOSE [id number] 12:08:00 Test Item Value Reference Range Comments POC-GLUCOSE METER (BEAKER) 229 mg/dL 70-110 TESTED AT [address] (test hvwc=6022) [place] [address] POCT-GLUCOSE [id number] 08:27:00 Test Item Value Reference Range Comments POC-GLUCOSE METER (BEAKER) 280 mg/dL 70-110 TESTED AT [address] (test vzzk=7232) [facility] [address] OSMOLALITY, [id number] 05:16:00 Test Item Value Reference Range Comments OSMOLALITY URINE (BEAKER) (test hlnp=014) 340 mOsm/kg 40-1,400 SPECIFIC GRAVITY, [id number] 04:53:00 Test Item Value Reference Range Comments SPECIFIC GRAVITY UA (BEAKER) (test oufv=473) 1.010 1.001-1.035 POCT-GLUCOSE [id number] 22:29:00 Test Item Value Reference Range Comments POC-GLUCOSE METER (BEAKER) 257 mg/dL 70-110 TESTED AT [address] (test bqke=8746) [place] [address] BASIC METABOLIC [id number] 17:49:00 Test Item Value Reference Range Comments SODIUM (BEAKER) (test 137 meq/L 136-145 qpyb=914) POTASSIUM (BEAKER) (test 4.6 meq/L 3.5-5.1 zzim=804) CHLORIDE (BEAKER) (test 102 meq/L 98-107 xuub=649) CO2 (BEAKER) (test 26 meq/L 22-29 acrt=879) BLOOD UREA NITROGEN 14 mg/dL 7-21 (BEAKER) (test ogsw=298) CREATININE (BEAKER) (test 0.78 mg/dL 0.57-1.25 kqgx=745) GLUCOSE RANDOM (BEAKER) 246 mg/dL 70-105 (test iuid=681) CALCIUM (BEAKER) (test 8.7 mg/dL 8.4-10.2 abxq=456) EGFR (BEAKER) (test 79 mL/min/1.73 sq m ESTIMATED GFR IS NOT kqaw=7820) ACCURATE CREATININE CLEARANCE IN PREDICTING GLOMERULAR FILTRATION RATE. ESTIMATED GFR IS NOT APPLICABLE FOR DIALYSIS PATIENTS. POCT-GLUCOSE [id number] 17:02:00 Test Item Value Reference Range Comments POC-GLUCOSE METER (BEAKER) 235 mg/dL 70-110 TESTED AT [address] (test xgxg=2143) [place] [address] POCT-GLUCOSE [id number] 12:06:00 Test Item Value Reference Range Comments POC-GLUCOSE METER (BEAKER) 249 mg/dL 70-110 TESTED AT [address] (test pgli=5814) [place] [address] POCT-GLUCOSE [id number] 09:40:00 Test Item Value Reference Range Comments POC-GLUCOSE METER (BEAKER) 278 mg/dL 70-110 TESTED AT [address] (test xcjq=9585) [place] [address] BASIC METABOLIC [id number] 06:14:00 Test Item Value Reference Range Comments SODIUM (BEAKER) (test 141 meq/L 136-145 zubu=893) POTASSIUM (BEAKER) (test 4.1 meq/L 3.5-5.1 vpmt=490) CHLORIDE (BEAKER) (test 104 meq/L 98-107 gwqq=459) CO2 (BEAKER) (test 30 meq/L 22-29 jjno=139) BLOOD UREA NITROGEN 14 mg/dL 7-21 (BEAKER) (test aeig=010) CREATININE (BEAKER) (test 0.70 mg/dL 0.57-1.25 sgtz=560) GLUCOSE RANDOM (BEAKER) 146 mg/dL 70-105 (test rgxp=754) CALCIUM (BEAKER) (test 9.4 mg/dL 8.4-10.2 bvta=289) EGFR (BEAKER) (test 89 mL/min/1.73 sq m ESTIMATED GFR IS NOT ezfd=4106) ACCURATE CREATININE CLEARANCE IN PREDICTING GLOMERULAR FILTRATION RATE. ESTIMATED GFR IS NOT APPLICABLE FOR DIALYSIS PATIENTS. [id number] 06:03:00 Test Item Value Reference Range Comments PROTIME (BEAKER) (test eluh=887) 13.8 seconds 11.7-14.7 INR (BEAKER) (test zass=331) 1.1 <=5.9 PARTIAL THROMBOPLASTIN TIME (BEAKER) (test 32.0 seconds 22.5-36.0 twxl=845) RECOMMENDED COUMADIN/WARFARIN INR THERAPY RANGESSTANDARD DOSE: 2.0 - 3.0 Includes: PROPHYLAXIS forvenous thrombosis, systemic embolization; TREATMENT for venous thrombosis and/or pulmonary embolus.HIGH RISK: Target INR is 2.5-3.5 for patients with mechanical heart valves. SCREEN, [id number] 05: 59:00 Test Item Value Reference Range Comments TEST URINE (BEAKER) (test kgxs=981) Negative POCT-GLUCOSE [id number] 05:46:00 Test Item Value Reference Range Comments POC-GLUCOSE METER (BEAKER) 140 mg/dL 70-[address] [facility] [address] [facility] (test bonm=6112) [facility] [address] CBC W/PLT COUNT & AUTO [id number] 05:46:00 Test Item Value Reference Range Comments WHITE BLOOD CELL COUNT (BEAKER) (test wfin=066) 9.6 K/ L 3.5-10.5 RED BLOOD CELL COUNT (BEAKER) (test vmph=313) 5.00 M/ L 3.93-5.22 HEMOGLOBIN (BEAKER) (test jcis=061) 14.0 GM/DL 11.2-15.7 HEMATOCRIT (BEAKER) (test oezt=759) 42.1 % 34.1-44.9 MEAN CORPUSCULAR VOLUME (BEAKER) (test vxur=719) 84.2 fL 79.4-94.8 MEAN CORPUSCULAR HEMOGLOBIN (BEAKER) (test 28.0 pg 25.6-32.2 fckg=772) MEAN CORPUSCULAR HEMOGLOBIN CONC (BEAKER) (test 33.3 GM/DL 32.2-35.5 ncnk=989) RED CELL DISTRIBUTION WIDTH (BEAKER) (test 13.0 % 11.7-14.4 memd=426) PLATELET COUNT (BEAKER) (test zjus=462) 227 K/CU MM 150-450 MEAN PLATELET VOLUME (BEAKER) (test xhqj=315) 11.8 fL 9.4-12.3 NUCLEATED RED BLOOD CELLS (BEAKER) (test 0 /100 WBC 0-0 piwl=643) NEUTROPHILS RELATIVE PERCENT (BEAKER) (test 52 % axpy=699) LYMPHOCYTES RELATIVE PERCENT (BEAKER) (test 38 % hzgr=077) MONOCYTES RELATIVE PERCENT (BEAKER) (test 6 % mnfk=464) EOSINOPHILS RELATIVE PERCENT (BEAKER) (test 3 % ibek=442) BASOPHILS RELATIVE PERCENT (BEAKER) (test 1 % bial=868) NEUTROPHILS ABSOLUTE COUNT (BEAKER) (test 5.03 K/ L 1.56-6.13 hdpb=008) LYMPHOCYTES ABSOLUTE COUNT (BEAKER) (test 3.62 K/ L 1.18-3.74 dwit=425) MONOCYTES ABSOLUTE COUNT (BEAKER) (test 0.62 K/ L 0.24-0.36 yfhr=239) EOSINOPHILS ABSOLUTE COUNT (BEAKER) (test 0.27 K/ L 0.04-0.36 rcqd=133) BASOPHILS ABSOLUTE COUNT (BEAKER) (test 0.05 K/ L 0.01-0.08 gyqt=608) IMMATURE GRANULOCYTES-RELATIVE PERCENT (BEAKER) 1 % 0-1 (test mgbw=8101) POCT-GLUCOSE [id number] 21:27:00 Test Item Value Reference Range Comments POC-GLUCOSE METER (BEAKER) 223 mg/dL 70-110 TESTED AT [address] (test cpaw=5144) [place] [address]30 POCT-GLUCOSE [id number] 17:26:00 Test Item Value Reference Range Comments POC-GLUCOSE METER (BEAKER) 223 mg/dL 70-110 TESTED AT [address] (test cqjl=9859) [place] [address] BASIC METABOLIC [id number] 16:43:00 Test Item Value Reference Range Comments SODIUM (BEAKER) (test 139 meq/L 136-145 pmuk=468) POTASSIUM (BEAKER) (test 4.5 meq/L 3.5-5.1 Specimen slightly rdis=187) hemolyzed CHLORIDE (BEAKER) (test 102 meq/L 98-107 cahu=787) CO2 (BEAKER) (test 29 meq/L 22-29 wkwl=784) BLOOD UREA NITROGEN 16 mg/dL 7-21 (BEAKER) (test odcy=842) CREATININE (BEAKER) (test 0.76 mg/dL 0.57-1.25 Specimen slightly bpdt=337) hemolyzed GLUCOSE RANDOM (BEAKER) 217 mg/dL 70-105 (test vgoy=756) CALCIUM (BEAKER) (test 9.6 mg/dL 8.4-10.2 ndno=799) EGFR (BEAKER) (test 81 mL/min/1.73 sq m ESTIMATED GFR IS NOT tmva=4567) ACCURATE CREATININE CLEARANCE IN PREDICTING GLOMERULAR FILTRATION RATE. ESTIMATED GFR IS NOT APPLICABLE FOR DIALYSIS PATIENTS. POCT-GLUCOSE [id number] 09:06:00 Test Item Value Reference Range Comments POC-GLUCOSE METER (BEAKER) 265 mg/dL 70-110 TESTED AT [address] (test moej=6474) [place] [address]30 POCT-GLUCOSE [id number] 00:22:00 Test Item Value Reference Range Comments POC-GLUCOSE METER (BEAKER) 210 mg/dL 70-110 TESTED AT [address] (test oxqq=1350) [place] [address] POCT-GLUCOSE [id number] 20:27:00 Test Item Value Reference Range Comments POC-GLUCOSE METER (BEAKER) 235 mg/dL 70-110 TESTED AT [address] (test zned=4098) [place] [address] POCT-GLUCOSE [id number] 17:10:00 Test Item Value Reference Range Comments POC-GLUCOSE METER (BEAKER) 264 mg/dL 70-110 TESTED AT [address] (test nwkm=8747) [place] [address]30 POCT-GLUCOSE [id number] 16:00:00 Test Item Value Reference Range Comments POC-GLUCOSE METER (BEAKER) 242 mg/dL 70-110 TESTED AT [address] (test mxwu=8279) [place] [address]30 POCT-GLUCOSE [id number] 08:54:00 Test Item Value Reference Range Comments POC-GLUCOSE METER (BEAKER) 224 mg/dL 70-110 TESTED AT [address] (test vwqo=1561) [place] [address]30 POCT-GLUCOSE [id number] 21:30:00 Test Item Value Reference Range Comments POC-GLUCOSE METER (BEAKER) 254 mg/dL 70-110 TESTED AT [address] (test ecse=3685) [place] [address]30 POCT-GLUCOSE [id number] 17:23:00 Test Item Value Reference Range Comments POC-GLUCOSE METER (BEAKER) 193 mg/dL 70-110 TESTED AT [address] (test qehs=7669) [place] [address] POCT-GLUCOSE [id number] 11:53:00 Test Item Value Reference Range Comments POC-GLUCOSE METER (BEAKER) 179 mg/dL 70-110 TESTED AT [address] (test fyxm=8135) [place] [address] [id number] 10:15:00 Test Item Value Reference Range Comments CORTISOL, TOTAL (BEAKER) (test lxtn=8908) 4.7 ug/dL 3.7-19.4 POCT-GLUCOSE [id number] 08:07:00 Test Item Value Reference Range Comments POC-GLUCOSE METER (BEAKER) 184 mg/dL 70-110 TESTED AT [address] (test sfja=4982) [place] [address] CT, BRAIN, WITHOUT [id number] 22:07:00FINAL REPORT CT Head without contrast CLINICAL [...] [place] Verified Date/Time: 06/20/2018 22:07:25 Reading Location: [address] Transitional Reading Room POCT-GLUCOSE [id number] 21:00:00 Test Item Value Reference Range Comments POC-GLUCOSE METER (BEAKER) 227 mg/dL 70-110 TESTED AT [address] (test fhex=7339) [place] [address] POCT-GLUCOSE [id number] 16:57:00 Test Item Value Reference Range Comments POC-GLUCOSE METER (BEAKER) 216 mg/dL 70-110 TESTED AT [address] (test cggw=2035) [place] [address]30 POCT-GLUCOSE [id number] 13:11:00 Test Item Value Reference Range Comments POC-GLUCOSE METER (BEAKER) 198 mg/dL 70-110 TESTED AT [address] (test hsrf=0842) [place] [id number] POCT-GLUCOSE [id number] 07:47:00 Test Item Value Reference Range Comments POC-GLUCOSE METER (BEAKER) 213 mg/dL 70-110 TESTED AT [address] (test lhgk=1694) [place] [address] BASIC METABOLIC [id number] 06:57:00 Test Item Value Reference Range Comments SODIUM (BEAKER) (test 138 meq/L 136-145 yyrk=038) POTASSIUM (BEAKER) (test 3.9 meq/L 3.5-5.1 hrss=798) CHLORIDE (BEAKER) (test 105 meq/L 98-107 jbts=936) CO2 (BEAKER) (test 24 meq/L 22-29 qpuh=135) BLOOD UREA NITROGEN 12 mg/dL 7-21 (BEAKER) (test bkox=046) CREATININE (BEAKER) (test 0.73 mg/dL 0.57-1.25 kpbe=552) GLUCOSE RANDOM (BEAKER) 192 mg/dL 70-105 (test onfp=770) CALCIUM (BEAKER) (test 8.8 mg/dL 8.4-10.2 bhxo=504) EGFR (BEAKER) (test 85 mL/min/1.73 sq m ESTIMATED GFR IS NOT xrlz=4435) ACCURATE CREATININE CLEARANCE IN PREDICTING GLOMERULAR FILTRATION RATE. ESTIMATED GFR IS NOT APPLICABLE FOR DIALYSIS PATIENTS. POCT-GLUCOSE [id number] 05:24:00 Test Item Value Reference Range Comments POC-GLUCOSE METER (BEAKER) 192 mg/dL 70-[address] [facility] [address] [facility] (test hrsb=5785) [facility] [address] [address], [place] [id number] 01:03:00FINAL REPORT CLINICAL HISTORY: Stroke TECHNIQUE: Initially, [...] Verified Date/ Time: 06/20/2018 01:03:44 Reading Location: [address] Transitional Reading Room [facility], [place], [id number] 01:03:00FINAL REPORT CLINICAL HISTORY: Stroke TECHNIQUE: Initially, [...] Verified Date/ Time: 06/20/2018 01:03:44 Reading Location: [address] Reading Room POCT-GLUCOSE [id number] 00:40:00 Test Item Value Reference Range Comments POC-GLUCOSE METER (BEAKER) 283 mg/dL 70-110 TESTED AT [address] (test igma=5574) [facility] [address] POCT-GLUCOSE [id number] 21:21:00 Test Item Value Reference Range Comments POC-GLUCOSE METER (BEAKER) 343 mg/dL 70-110 TESTED AT [address] (test nqte=5899) [facility] [address] SCREEN, [id number] 18:52:00 Test Item Value Reference Range Comments TEST URINE (BEAKER) (test qmsz=736) Negative POCT-GLUCOSE [id number] 17:17:00 Test Item Value Reference Range Comments POC-GLUCOSE METER (BEAKER) 287 mg/dL 70-[address] [facility] [address] [facility] (test diqn=7566) [facility] [address] [id number] 15:59:00 Test Item Value Reference Range Comments RPR SCREEN (BEAKER) (test lvoy=691) Nonreactive Nonreactive POCT-GLUCOSE [id number] 15:07:00 Test Item Value Reference Range Comments POC-GLUCOSE METER (BEAKER) 323 mg/dL 70-110 TESTED AT [address] (test rhwv=6328) [place] [id number] T4, [id number] 13:11:00 Test Item Value Reference Range Comments FREE T4 (BEAKER) (test jetf=899) 0.89 ng/dL 0.70-1.48 HIV-1 ANTIGEN WITH HIV-1/2 [id number] 13:11:00 Test Item Value Reference Range Comments HIV-1 ANTIGEN WITH HIV 1\\T\\2 ANTIBODY (2) Nonreactive Nonreactive (BEAKER) (test rnde=4658) RAPID DRUG SCREEN, [id number] 12:47:00 Test Item Value Reference Range Comments BARBITURATE URINE (BEAKER) (test pqbv=067) Negative Negative BENZODIAZEPINE SCREEN URINE (BEAKER) (test Negative Negative lmai=532) COCAINE (METAB.) SCREEN (BEAKER) (test etqa=2815) Negative Negative METHADONE SCREEN (BEAKER) (test cnnl=1115) Negative Negative OPIATE SCREEN URINE (BEAKER) (test lrza=146) Negative Negative CANNABINOID SCREEN URINE (BEAKER) (test spjl=854) Negative Negative AMPH/METHAMPH SCREEN (BEAKER) (test guhf=2169) Negative Negative PHENCYCLIDINE SCREEN URINE (BEAKER) (test dtkw=095) Negative Negative OXYCODONE SCREEN URINE (BEAKER) (test iepy=5743) Negative Negative DRUG CUTOFF CONC.Cocaine 300 ng/mL Cannabinoid 50 ng/mL Benzodiazepine 200 ng/mLBarbiturate 200 ng/ mLPhencyclidine 25 ng/mLOpiate 300 ng/mLMethadone 300 ng/mLAmphetamine/ 1000 ng/mL MethamphetamineOxycodone 300 ng/mLThis assay provides an unconfirmed qualitative test result for the clinical management of patients in emergency situations. Chain of custody not maintained. Some yvbu-pmb-lkuufko medications, as well as adulterants, may cause inaccurate results. Clinical correlation should be applied. A more comprehensive drug screen or confirmation of a detected drug may be performed upon request.POCT-GLUCOSE [id number] 12:37:00 Test Item Value Reference Range Comments POC-GLUCOSE METER (BEAKER) 292 mg/dL 70-[address] [facility] [address] [facility] (test tffy=8706) [facility] [address] HEMOGLOBIN [id number] 12:35:00 Test Item Value Reference Range Comments HEMOGLOBIN A1C (BEAKER) (test noha=526) 7.9 % 4.3-6.1 OSMOLALITY, [id number] 12:34:00 Test Item Value Reference Range Comments OSMOLALITY, SERUM (BEAKER) (test vaab=249) 310 mOsm/kg 275-295 C-REACTIVE [id number] 12:28:00 Test Item Value Reference Range Comments C-REACTIVE PROTEIN (BEAKER) (test ztca=952) 0.81 mg/dL 0.00-0.50 OSMOLALITY, [id number] 12:22:00 Test Item Value Reference Range Comments OSMOLALITY URINE (BEAKER) (test wmtr=695) 247 mOsm/kg 40-1,400 CBC W/PLT COUNT & AUTO [id number] 12:14:00 Test Item Value Reference Range Comments WHITE BLOOD CELL COUNT (BEAKER) (test bkdt=341) 15.1 K/ L 3.5-10.5 RED BLOOD CELL COUNT (BEAKER) (test gjya=222) 5.15 M/ L 3.93-5.22 HEMOGLOBIN (BEAKER) (test qiek=500) 14.1 GM/DL 11.2-15.7 HEMATOCRIT (BEAKER) (test hvyr=833) 42.3 % 34.1-44.9 MEAN CORPUSCULAR VOLUME (BEAKER) (test pghy=959) 82.1 fL 79.4-94.8 MEAN CORPUSCULAR HEMOGLOBIN (BEAKER) (test 27.4 pg 25.6-32.2 vggp=140) MEAN CORPUSCULAR HEMOGLOBIN CONC (BEAKER) (test 33.3 GM/DL 32.2-35.5 qjww=284) RED CELL DISTRIBUTION WIDTH (BEAKER) (test 12.9 % 11.7-14.4 ycay=103) PLATELET COUNT (BEAKER) (test shbg=044) 278 K/CU MM 150-450 MEAN PLATELET VOLUME (BEAKER) (test mpfg=643) 11.5 fL 9.4-12.3 NUCLEATED RED BLOOD CELLS (BEAKER) (test 0 /100 WBC 0-0 tcls=396) NEUTROPHILS RELATIVE PERCENT (BEAKER) (test 87 % toqu=278) LYMPHOCYTES RELATIVE PERCENT (BEAKER) (test 10 % ffnk=711) MONOCYTES RELATIVE PERCENT (BEAKER) (test 3 % greq=957) EOSINOPHILS RELATIVE PERCENT (BEAKER) (test 0 % uwhl=324) BASOPHILS RELATIVE PERCENT (BEAKER) (test 0 % rpzt=663) NEUTROPHILS ABSOLUTE COUNT (BEAKER) (test 13.06 K/ L 1.56-6.13 asyz=358) LYMPHOCYTES ABSOLUTE COUNT (BEAKER) (test 1.51 K/ L 1.18-3.74 zcpp=266) MONOCYTES ABSOLUTE COUNT (BEAKER) (test 0.38 K/ L 0.24-0.36 fswe=091) EOSINOPHILS ABSOLUTE COUNT (BEAKER) (test 0.00 K/ L 0.04-0.36 zzsm=779) BASOPHILS ABSOLUTE COUNT (BEAKER) (test 0.02 K/ L 0.01-0.08 elgw=658) IMMATURE GRANULOCYTES-RELATIVE PERCENT (BEAKER) 1 % 0-1 (test lgll=4377) POCT-GLUCOSE [id number] 10:30:00 Test Item Value Reference Range Comments POC-GLUCOSE METER (BEAKER) 341 mg/dL 70-110 TESTED AT [address] (test nvrw=4786) [facility] [address] [id number] 06:17:00 Test Item Value Reference Range Comments PROLACTIN (BEAKER) (test gddi=265) 23.34 ng/mL 5.18-26.53 POCT-GLUCOSE [id number] 05:55:00 Test Item Value Reference Range Comments POC-GLUCOSE METER (BEAKER) 285 mg/dL 70-110 TESTED AT [address] (test lkog=3042) [facility] [address] MR, BRAIN, [id number] 02:25:00Pituitary protocolCr 0.6FINAL REPORT MRI brain with and without contrast Comparison: None. 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 Discussion: Multiplanar MR imaging of the brain and sella was provided gah-afk-yzyz IV gadolinium administration using T1, T2, FLAIR, [...] MDReport Verified Date/Time: 06/19/2018 02:25:15 Reading Location: [address] Body Reading Room TSH/FREE T4 IF [id number] 00:26:00 Test Item Value Reference Range Comments THYROID STIMULATING HORMONE (BEAKER) (test 0.41 uIU/mL 0.35-4.94 zcyo=964) BASIC METABOLIC [id number] 00:07:00 Test Item Value Reference Range Comments SODIUM (BEAKER) (test 136 meq/L 136-145 kzeu=842) POTASSIUM (BEAKER) (test 4.0 meq/L 3.5-5.1 olwl=371) CHLORIDE (BEAKER) (test 103 meq/L 98-107 xzbb=695) CO2 (BEAKER) (test 20 meq/L 22-29 tyib=254) BLOOD UREA NITROGEN 11 mg/dL 7-21 (BEAKER) (test boio=401) CREATININE (BEAKER) (test 0.84 mg/dL 0.57-1.25 bxje=091) GLUCOSE RANDOM (BEAKER) 357 mg/dL 70-105 (test qvtq=325) CALCIUM (BEAKER) (test 9.0 mg/dL 8.4-10.2 inqv=441) EGFR (BEAKER) (test 72 mL/min/1.73 sq m ESTIMATED GFR IS NOT ifex=4518) ACCURATE CREATININE CLEARANCE IN PREDICTING GLOMERULAR FILTRATION RATE. ESTIMATED GFR IS NOT APPLICABLE FOR DIALYSIS PATIENTS. URINALYSIS W/ REFLEX URINE [id number] 23:13:00 Test Item Value Reference Range Comments COLOR (BEAKER) (test vozz=968) Yellow CLARITY (BEAKER) (test jyak=196) Clear SPECIFIC GRAVITY UA (BEAKER) (test qonp=231) 1.011 1.001-1.035 PH UA (BEAKER) (test jgoo=030) 5.0 5.0-8.0 PROTEIN UA (BEAKER) (test kjrp=655) Negative Negative GLUCOSE UA (BEAKER) (test anbd=620) >1000 mg/dL Negative KETONES UA (BEAKER) (test jhml=951) 20 mg/dL Negative BILIRUBIN UA (BEAKER) (test ikyw=255) Negative Negative BLOOD UA (BEAKER) (test vbzr=125) Negative Negative NITRITE UA (BEAKER) (test rvhb=142) Negative Negative LEUKOCYTE ESTERASE UA (BEAKER) (test evcn=779) Negative Negative UROBILINOGEN UA (BEAKER) (test sywk=579) 0.2 mg/dL 0.2-1.0 RBC UA (BEAKER) (test vjic=296) < /HPF WBC UA (BEAKER) (test xleu=650) < /HPF SQUAMOUS EPITHELIAL (BEAKER) (test mavt=592) < /HPF SOURCE(BEAKER) (test dprl=7802)
--- OUTSIDE RECORDS SUMMARY | 2019-07-22 12:00 | XMS REPORT ---
[...] System Date Date MetFORMIN HCl ER ND 74191212399 750 MG Orally Active 1 tablet Once a day with evening meal Levothyroxine ND 43895538586 88 MCG Oral Active TAKE 1 Sodium TABLET BY MOUTH EVERY MORNING GlyBURIDE ND 30220995600 5 MG Orally BID Active 2 tabs bid with meal Losartan ND 32229558487 100-12.5 MG Oct 10, Active 1 tablet Potassium-HCTZ Orally Once a 2019 day Losartan ND 39882793814 50 MG Orally Active 1 tablet Potassium Once a day Hydrocortisone ND 89104486494 10 MG Orally Active 1 tablet every 12 hrs with food or milk Amlodipine ND 73631216815 10 MG Orally Active 1 tablet Besylate Once a day Results No Known Results Summary Purpose eClinicalWorks Submission
[2019-07-22] MEDS ORDERED: NA CHLORIDE 0.9% 1,000 ML ONE (12:44)
[2019-07-22] MEDS ORDERED: FOLIC ACID 5 MG/ML VIAL ONE (12:45)
--- NOTE | 2019-07-22 12:54 | RAD REPORT ---
EXAM DESCRIPTION: CT - Ct Stroke Brain Wo Cont - 07/22/2019 12:31 pm CLINICAL HISTORY: CT Stroke protocol study, right-sided head numbness, focal neuro symptoms, history of pituitary tumor removal CLINICAL HISTORY: CT head March 31, 2019 TECHNIQUE: Axial 5 millimeter thick images of the head were obtained without IV contrast. All CT scans are performed using dose optimization technique as appropriate and may include automated exposure control or mA/KV adjustment according to patient size. FINDINGS: No intracranial hemorrhage, mass, or cerebral edema. No acute infarction identifiable. No extra-axial fluid collections. Friend matter-white matter differentiation is preserved. No globe or or bital content abnormality. No intracranial changes from March 31. Visualized portions of the mastoid air cells, paranasal sinuses, and orbits are unremarkable. Findings telephoned to the referring clinician 12:48 p.m. IMPRESSION: No CT evidence of acute intracranial process.
[2019-07-22 13:20] LABS: Absolute Lymphocytes (CBC) 2.3 K/uL (0.7-4.9); Basophils % 1.1 % (0-1.3); Hematocrit 44.5 % (36.0-45.0); Lymphocytes % 20.7 % (15.3-44.8); MPV 9.9 fL (7.6-11.3); RBC Red Blood Cell Count 5.63 M/uL (3.86-4.86)
[2019-07-22 13:24] LABS: Protime INR 1.04
--- NOTE | 2019-07-22 13:39 | RAD REPORT ---
EXAM DESCRIPTION: RAD - Chest Single View - 07/22/2019 12:47 pm CLINICAL HISTORY: Code stroke chest film COMPARISON: March TECHNIQUE: AP portable chest image was obtained 1238 hour . FINDINGS: The lung volumes are low. Interstitial pattern matches comparison. Heart and vasculature a re normal. No measurable pleural effusion and no pneumothorax. No acute bony abnormality seen. No acu te aortic findings suspected. IMPRESSION: No acute cardiopulmonary process.
[2019-07-22 13:42] LABS: ALT/SGPT 135 U/L (12-78); AST/SGOT 60 U/L (15-37); Albumin 3.5 g/dL (3.4-5.0); Alkaline Phosphatase 94 U/L (45-117); BUN Blood Urea Nitrogen 14 mg/dL (7-18); Bicarbonate 27 mmol/L (21-32); Bilirubin Direct 0.1 mg/dL (0-0.2); Bilirubin Total 0.5 mg/dL (0.2-1.0); Glucose Level 276 mg/dL (74-106); Magnesium 2.1 mg/dL (1.8-2.4); NT PRO-BNP 20 pg/mL (<125); Protein, Total 7.7 g/dL (6.4-8.2); Sodium Level 136 mmol/L (136-145); Troponin (Emerg Dept Use Only) < 0.02 ng/mL (0.0-0.045)
[2019-07-22 13:47] LABS: Urine Blood NEGATIVE (NEG); Urine Glucose 2+ (NEG); Urine Protein NEGATIVE (NEG)
[2019-07-22] MEDS ORDERED: ASPIRIN 81 MG CHEWABLE TABLET ONE ×2 (14:05→14:49)
--- NOTE | 2019-07-22 14:39 | RAD REPORT ---
EXAM DESCRIPTION: MRI - Brain Wo Cont - 07/22/2019 2:01 pm CLINICAL HISTORY: Dizziness;Declining state COMPARISON: CT head same date TECHNIQUE: Sagittal T1-weighted images were obtained along with axial PD, heavily T2-weighted and T2 -FLAIR images. Axial DWI and ADC mapping sequences were also obtained along with coronal heavily T2-w eighted images. FINDINGS: No intracranial hemorrhage, mass or acute infarction. There is no edema or shift of midlin e structures. No extra-axial fluid collections. Friend-matter/white matter junction is preserved. Signa l voids are seen as a normal finding in the major intracranial vessels. No globe or orbital content abnormality. No sella or supra sella findings. Mastoid air cells and paranasal sinuses are clear. IMPRESSION: Negative non-contrast MRI of the Brain.
--- NOTE | 2019-07-22 15:01 | ER ---
Nurse's Notes [facility] Name: Chantal Stout Age: 49 yrs Sex: Female : 1970 Arrival Date: 07/22/2019 Time: 11:51 Bed 6 Private MD: Diagnosis: Headache;Weakness Presentation: 07/22 12:08 Presenting complaint: Patient states: "The whole right side of my head feels numb, this aj1 morning the top of my head was cold feeling and I have a lot of pressure across the top of my head" Reports that her symptoms started 2 hours ago. Denies any trouble walking or talking. Patient reports that she had a pituitary tumor removed 13 months ago. Reports that she had similar symptoms from her tumor previously. Denies weakness. Transition of care: patient was not received from another setting of care. Onset of symptoms was July 22, 2019 at 10:00. Risk Assessment: Do you want to hurt yourself or someone else? Patient reports no desire to harm self or others. Initial Sepsis Screen: Does the patient meet any 2 criteria? No. Patient's initial sepsis screen is negative. Does the patient have a suspected source of infection? No. Patient's initial sepsis screen is negative. Care prior to arrival: None. 12:08 Method Of Arrival: Ambulatory aj1 12:08 Acuity: ONÉ 3 aj1 12:20 Acuity: NOÉ 2 sv 12:20 An acute neurological deficit is present. The charge nurse has been notified. sv Pre-hospital glucose is not applicable to this patient. Triage Assessment: 12:12 The onset of the patients symptoms was July 22, 2019 at 10:00. General: Appears in aj1 no apparent distress. uncomfortable, Behavior is calm, cooperative, appropriate for age. Pain: Pain currently is 6 out of 10 on a pain scale. Neuro: Level of Consciousness is awake, alert, obeys commands, Oriented to person, place, time, situation. Cardiovascular: Patient's skin is warm and dry. Respiratory: Airway is patent Respiratory effort is even, unlabored, Respiratory pattern is regular, symmetrical. SKIMMER REVERBERATORY: 12:12 LMP N/A - Post-menopause aj1 Stroke Activation: Symptom onset < 3 hours Physician: Stroke Attending; Name: ; Notified At: ; Arrived At: Physician: Chief Stroke Resident; Name: ; Notified At: ; Arrived At: Physician: Stroke Resident; Name: ; Notified At: ; Arrived At: Physician: ED Attending; Name: Dr Vargas; Notified At: 12:20; Arrived At: Physician: ED Resident; Name: ; Notified At: ; Arrived At: Historical: - Allergies: 12:12 Bactrim; aj1 12:12 Cephalexin; aj1 12:12 Codeine; aj1 12:12 Iodine; aj1 12:12 Levaquin; aj1 12:12 Sulfa (Sulfonamide Antibiotics); aj1 - Home Meds: 12:12 amlodipine 10 mg tab 1 tab once daily [Active]; glyburide 5 mg Oral tab 1 tab once aj1 daily [Active]; hydrocortisone 10 mg Oral tab 1 tab 2 times per day [Active]; insulin NPH human recomb 10 units subcutaneous twice a day [Active]; levothyroxine 75 mcg tab 1 tab once daily [Active]; losartan-hydrochlorothiazide 100-12.5 mg Oral tab 1 tab once daily [Active]; metformin 750 mg Oral Tb24 1 tab twice a day [Active]; omeprazole 20 mg Oral cpDR 1 cap once daily [Active]; - PMHx: 12:12 Anemia; Asthma; Diabetes - NIDDM; Hypertension; Hypothyroidism; pituitary tumor- aj1 surgically removed Jun 24; - Immunization history:: Flu vaccine is not up to date. - Social history:: Smoking status: Patient/guardian denies using tobacco. - Ebola Screening: : Patient denies travel to an Ebola-affected area in the 21 days before illness onset. - Family history:: not pertinent. Screenin:16 Abuse screen: Denies threats or abuse. Denies injuries from another. Nutritional sv screening: No deficits noted. Tuberculosis screening: No symptoms or risk factors identified. Fall Risk None identified. Assessment: 12:16 VAN Scoring: Arm Drift: Patients demonstrates NO arm weakness. Patient is VAN Negative. sv T-PA (Activase) Screening: Indications: Definite evidence of stroke, ischemic, embolic, or hypertensive: Yes. Treatment will start within 4.5 hours onset of symptoms: Yes. General: Appears in no apparent distress. uncomfortable, well groomed, well developed, Behavior is cooperative, appropriate for age, anxious. Pain: Denies pain. Neuro: Level of Consciousness is awake, alert, obeys commands, Oriented to person, place, time, situation, Field Cane Scaler are equal bilaterally Moves all extremities. Full function Speech is normal, Facial symmetry appears normal, Facial symmetry: tongue is midline, Reports dizziness, numbness in top of head, right side of forehead, right buddhist, right zygomatic area, right cheek and right mandible tunneling of vision to the right eye that is intermittent.. Denies photophobia diplopia. Cardiovascular: Patient's skin is warm and dry. Pulses are palpable in right radial artery and left radial artery Chest pain is denied. Respiratory: Airway is patent Respiratory effort is even, unlabored, Respiratory pattern is regular, symmetrical. Derm: Skin is intact, Skin is pink, warm \\T\\ dry. 12:20 Reassessment: Code Stroke called. sv 12:32 Reassessment: BS-281. sv 12:35 Patient has been NPO before screening. The patient is alert, and able to follow sv commands. The patient does not exhibit slurred or garbled speech. The patient is not exhibiting difficulty speaking. The patient does not exhibit difficulty understanding words. The patient is able to swallow own secretions with no drooling or need for suction. Patient tolerated one teaspoon of water. No drooling, immediate coughing, gurgling, or clearing of the throat was noted. The patient tolerated 90mL of water. No drooling, immediate coughing, gurgling, or clearing of the throat was noted. The patient passed the bedside swallow screening. Oral medications may be given as ordered. Contact Physician for further diet orders. Provider notified of bedside swallow screening results: Marco Vargas MD. 12:45 Reassessment: Patient appears in no apparent distress at this time. No changes from sv previously documented assessment. Patient and/or family updated on plan of care and expected duration. Pain level reassessed. Patient is alert, oriented x 3, equal unlabored respirations, skin warm/dry/pink. 14:00 Reassessment: Patient appears in no apparent distress at this time. No changes from sv previously documented assessment. Patient and/or family updated on plan of care and expected duration. Pain level reassessed. Patient is alert, oriented x 3, equal unlabored respirations, skin warm/dry/pink. 16:10 Reassessment: Patient appears in no apparent distress at this time. No changes from sv previously documented assessment. Patient and/or family updated on plan of care and expected duration. Pain level reassessed. Patient is alert, oriented x 3, equal unlabored respirations, skin warm/dry/pink. Vital Signs: 12:12 BP 176 / 102; Pulse 94; Resp 18; Temp 97.5; Pulse Ox 94% on R/A; Weight 131.54 kg (R); aj1 Height 5 ft. 4 in. (162.56 cm) (R); 12:31 BP 143 / 95; Pulse 103; Resp 20; Pulse Ox 97% on R/A; sv 13:00 BP 123 / 85; Pulse 91; Resp 19; Pulse Ox 96% ; sv 14:00 BP 140 / 80; Pulse 94; Resp 16; Pulse Ox 95% ; sv 14:30 BP 119 / 73; Pulse 89; Resp 16; Pulse Ox 96% ; sv 15:30 BP 138 / 77; Pulse 93; Resp 16; Pulse Ox 95% ; sv 16:00 BP 123 / 77; Pulse 90; Resp 16; Pulse Ox 99% ; sv 12:12 Body Mass Index 49.78 (131.54 kg, 162.56 cm) aj1 NIH Stroke Scale Scores: 12:16 NIHSS Score: 1 sv 12:37 NIHSS Score: 0 [facility] ED Course: 11:51 Patient arrived in ED. rg4 12:11 Triage completed. aj1 12:12 Arm band placed on Patient placed in an exam room. aj1 12:15 Patient has correct armband on for positive identification. Bed in low position. Call sv light in reach. Side rails up X2. Adult w/ patient. Door closed. Head of bed elevated. 12:17 Marco Vargas MD is Attending Physician. manuela 12:[address] via stretcher. sv 12:22 Zuleima Ivory, ALCIDES is Primary Nurse. sv 12:27 Patient moved back from CT. sv 12:28 case monitor on. Pulse ox on. NIBP on. sv 12:30 CT Stroke Brain w/o Contrast In Process Unspecified. EDMS 12:32 Inserted saline lock: 20 gauge in right forearm, using aseptic technique. Blood sv collected. Flushed right forearm with 5 ml normal saline. 12:36 X-ray(s) taken. sv 12:47 Glucose, Ancillary Testing Sent. sv 12:48 Stroke CXR 1 View In Process Unspecified. EDMS 13:04 Lab(s) recollected, by ED staff, sent to lab. sv 13:24 Patient moved to MRI via wheelchair. sv 14:00 Brain Wo Cont In Process Unspecified. EDMS 14:06 Patient moved back from MRI. sg 15:00 Michael Monzon MD is Referral Physician. manuela 16:10 No provider procedures requiring assistance completed. IV discontinued, intact, sv bleeding controlled, No redness/swelling at site. Pressure dressing applied. Administered Medications: 12:45 Drug: NS 0.9% 1000 ml Route: IV; Rate: 1 bolus; Site: right forearm; sv 14:00 Follow up: Response: No adverse reaction; IV Status: Completed infusion; IV Intake: sv 1000ml 12:45 Drug: foLIC Acid 1 mg Route: IVPB; Site: right forearm; sv 14:20 Drug: Aspirin Chewable Tablet 324 mg Route: PO; sg 15:00 Follow up: Response: No adverse reaction sv Intake: 14:00 IV: 1000ml; Total: 1000ml. sv Outcome: 15:00 Discharge ordered by . manuela 16:10 Patient left the ED. sv 16:10 Discharged to home via wheelchair, with family. sv 16:10 Condition: stable 16:10 Discharge instructions given to patient, family, Instructed on discharge instructions, follow up and referral plans. medication usage, Demonstrated understanding of instructions, follow-up care, medications, Prescriptions given X 3. NIH Stroke Scale - NIH Stroke Score Date: 07/22/2019 Time: 12:16 Total Score = 1 1a. Level of Consciousness (LOC) - 0(Alert) 1b. Level of Consciousness (LOC) (Year \\T\\ Age) - 0(Both) 1c. LOC Commands (Open \\T\\ Closes Eyes/Maintenance Service Technician) - 0(Both) 2. Best Gaze (Lateral Gaze Paresis) - 0(Normal) 3. Visual Field Loss - 0(No visual loss) 4. Facial Palsy - 0(Normal) 5a. Left Arm: Motor (10-second hold) - 0(No drift) 5b. Right Arm: Motor (10-second hold) - 0(No drift) 6a. Left Leg: Motor (5-second hold - always test supine) - 0(No drift) 6b. Right Leg: Motor (5-second hold - always test supine) - 0(No drift) 7. Limb Ataxia (finger/nose \\T\\ heel/kevin - test with eyes open) - 0(Absent) 8. Sensory Loss (pinprick arms/legs/face) - 1(Mild to moderate loss) 9. Best Language: Aphasia (description/naming/reading) - 0(No aphasia) 10. Dysarthria (speech clarity - read or repeat words) - 0(Normal) 11. Extinction and Inattention (visual/tactile/auditory/spatial/personal) - 0(No abnormality) Initials: NIH Stroke Scale - NIH Stroke Score Date: 07/22/2019 Time: 12:37 Total Score = 0 1a. Level of Consciousness (LOC) - 0(Alert) 1b. Level of Consciousness (LOC) (Year \\T\\ Age) - 0(Both) 1c. LOC Commands (Open \\T\\ Closes Eyes/Maintenance Service Technician) - 0(Both) 2. Best Gaze (Lateral Gaze Paresis) - 0(Normal) 3. Visual Field Loss - 0(No visual loss) 4. Facial Palsy - 0(Normal) 5a. Left Arm: Motor (10-second hold) - 0(No drift) 5b. Right Arm: Motor (10-second hold) - 0(No drift) 6a. Left Leg: Motor (5-second hold - always test supine) - 0(No drift) 6b. Right Leg: Motor (5-second hold - always test supine) - 0(No drift) 7. Limb Ataxia (finger/nose \\T\\ heel/kevin - test with eyes open) - 0(Absent) 8. Sensory Loss (pinprick arms/legs/face) - 0(Normal) 9. Best Language: Aphasia (description/naming/reading) - 0(No aphasia) 10. Dysarthria (speech clarity - read or repeat words) - 0(Normal) 11. Extinction and Inattention (visual/tactile/auditory/spatial/personal) - 0(No abnormality) Initials: manuela Signatures: Dispatcher [employer] Donya Taylor RN RN ajZuliema Biswas RN RN sv Anuj Pabon RN RN sg Anderson, Corey, MD MD cha Garcia, Katie rg4
--- NOTE | 2019-07-22 15:02 | EDPHYS ---
Physician Documentation [facility] Name: Chantal Stout Age: 49 yrs Sex: Female : 1970 Arrival Date: 07/22/2019 Time: 11:51 Bed 6 Private MD: KRUPA Physician Marco Vargas HPI: 07/22 12:37 This 49 yrs old Female presents to ER via Ambulatory with complaints of manuela Numbness Of Face, Weakness. 12:37 The patient's problem is reported as paresthesias, in right side of face. Onset: The manuela symptoms/episode began/occurred 2 hour(s) ago. Duration: This was a single incident. The symptoms are alleviated by nothing. Associated signs and symptoms: The patient has no apparent associated signs or symptoms. Severity of symptoms: At their worst the symptoms were mild in the emergency department the symptoms are unchanged. The patient has not experienced similar symptoms in the past. 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 LMP N/A - Post-menopause aj1 Historical: - Allergies: 12:12 Bactrim; aj1 12:12 Cephalexin; aj1 12:12 Codeine; aj1 12:12 Iodine; aj1 12:12 Levaquin; aj1 12:12 Sulfa (Sulfonamide Antibiotics); aj1 - Home Meds: 12:12 amlodipine 10 mg tab 1 tab once daily [Active]; glyburide 5 mg Oral tab 1 tab once aj1 daily [Active]; hydrocortisone 10 mg Oral tab 1 tab 2 times per day [Active]; insulin NPH human recomb 10 units subcutaneous twice a day [Active]; levothyroxine 75 mcg tab 1 tab once daily [Active]; losartan-hydrochlorothiazide 100-12.5 mg Oral tab 1 tab once daily [Active]; metformin 750 mg Oral Tb24 1 tab twice a day [Active]; omeprazole 20 mg Oral cpDR 1 cap once daily [Active]; - PMHx: 12:12 Anemia; Asthma; Diabetes - NIDDM; Hypertension; Hypothyroidism; pituitary tumor- aj1 surgically removed Jun 24; - Immunization history:: Flu vaccine is not up to date. - Social history:: Smoking status: Patient/guardian denies using tobacco. - Ebola Screening: : Patient denies travel to an Ebola-affected area in the 21 days before illness onset. - Family history:: not pertinent. ROS: 12:37 Constitutional: Negative for fever, chills, and weight loss, Eyes: Negative for injury, manuela pain, redness, and discharge, ENT: Negative for injury, pain, and discharge, Neck: Negative for injury, pain, and swelling, Cardiovascular: Negative for chest pain, palpitations, and edema, Respiratory: Negative for shortness of breath, cough, wheezing, and pleuritic chest pain, Abdomen/GI: Negative for abdominal pain, nausea, vomiting, diarrhea, and constipation, Back: Negative for injury and pain, : Negative for injury, bleeding, discharge, and swelling, MS/Extremity: Negative for injury and deformity, Skin: Negative for injury, rash, and discoloration, Psych: Negative for depression, anxiety, suicide ideation, homicidal ideation, and hallucinations, Allergy/Immunology: Negative for hives, rash, and allergies, Endocrine: Negative for neck swelling, polydipsia, polyuria, polyphagia, and marked weight changes, Hematologic/Lymphatic: Negative for swollen nodes, abnormal bleeding, and unusual bruising. 12:37 Neuro: Positive for headache, tingling, weakness, of the forehead, right eye and right cheek. Exam: 12:37 Constitutional: This is a well developed, well nourished patient who is awake, alert, manuela and in no acute distress. Head/Face: Normocephalic, atraumatic. Eyes: Pupils equal round and reactive to light, extra-ocular motions intact. Lids and lashes normal. Conjunctiva and sclera are non-icteric and not injected. Cornea within normal limits. Periorbital areas with no swelling, redness, or edema. ENT: Nares patent. No nasal discharge, no septal abnormalities noted. Tympanic membranes are normal and external auditory canals are clear. Oropharynx with no redness, swelling, or masses, exudates, or evidence of obstruction, uvula midline. Mucous membranes moist. Neck: Trachea midline, no thyromegaly or masses palpated, and no cervical lymphadenopathy. Supple, full range of motion without nuchal rigidity, or vertebral point tenderness. No Meningismus. Chest/axilla: Normal chest wall appearance and motion. Nontender with no deformity. No lesions are appreciated. Cardiovascular: Regular rate and rhythm with a normal S1 and S2. No gallops, murmurs, or rubs. Normal PMI, no JVD. No pulse deficits. Respiratory: Lungs have equal breath sounds bilaterally, clear to auscultation and percussion. No rales, rhonchi or wheezes noted. No increased work of breathing, no retractions or nasal flaring. Abdomen/GI: Soft, non-tender, with normal bowel sounds. No distension or tympany. No guarding or rebound. No evidence of tenderness throughout. Back: No spinal tenderness. No costovertebral tenderness. Full range of motion. Female : Normal external genitalia. Skin: Warm, dry with normal turgor. Normal color with no rashes, no lesions, and no evidence of cellulitis. MS/ Extremity: Pulses equal, no cyanosis. Neurovascular intact. Full, normal range of motion. Neuro: Awake and alert, GCS 15, oriented to person, place, time, and situation. Cranial nerves II-XII grossly intact. Motor strength 5/5 in all extremities. Sensory grossly intact. Cerebellar exam normal. Normal gait. Psych: Awake, alert, with orientation to person, place and time. Behavior, mood, and affect are within normal limits. 12:46 Radiologist reports: see report [facility] Vital Signs: 12:12 BP 176 / 102; Pulse 94; Resp 18; Temp 97.5; Pulse Ox 94% on R/A; Weight 131.54 kg (R); aj1 Height 5 ft. 4 in. (162.56 cm) (R); 12:31 BP 143 / 95; Pulse 103; Resp 20; Pulse Ox 97% on R/A; sv 13:00 BP 123 / 85; Pulse 91; Resp 19; Pulse Ox 96% ; sv 14:00 BP 140 / 80; Pulse 94; Resp 16; Pulse Ox 95% ; sv 14:30 BP 119 / 73; Pulse 89; Resp 16; Pulse Ox 96% ; sv 15:30 BP 138 / 77; Pulse 93; Resp 16; Pulse Ox 95% ; sv 16:00 BP 123 / 77; Pulse 90; Resp 16; Pulse Ox 99% ; sv 12:12 Body Mass Index 49.78 (131.54 kg, 162.56 cm) aj1 NIH Stroke Scale Scores: 12:16 NIHSS Score: 1 sv 12:37 NIHSS Score: 0 manuela MDM: 12:18 Patient medically screened. [facility] 12:46 Data reviewed: vital signs, nurses notes, lab test result(s), EKG, radiologic studies, [facility] CT scan, MRI, plain films. 07/22 12:23 Order name: Protime (+inr); Complete Time: 14:03 07/22 12:23 Order name: Ptt, Activated; Complete Time: 14:03 07/22 12:24 Order name: Basic Metabolic Panel; Complete Time: 14:03 [facility] 07/22 12:24 Order name: CBC with Diff; Complete Time: 13:31 [facility] 07/22 12:24 Order name: LFT's; Complete Time: 14:03 [facility] 07/22 12:24 Order name: Magnesium; Complete Time: 14:03 [facility] 07/22 12:24 Order name: NT PRO-BNP; Complete Time: 14:03 [facility] 07/22 12:24 Order name: Troponin (emerg Dept Use Only); Complete Time: 14:03 [facility] 07/22 12:24 Order name: Urine Culture [facility] 07/22 12:24 Order name: TSH; Complete Time: 14:03 [facility] 07/22 12:46 Order name: Glucose, Ancillary Testing; Complete Time: 13:31 [facility] 07/22 12:23 Order name: CT Stroke Brain w/o Contrast; Complete Time: 13:31 07/22 12:23 Order name: Stroke CXR 1 View; Complete Time: 14:03 07/22 12:23 Order name: EKG; Complete Time: 12:24 07/22 12:23 Order name: Accucheck; Complete Time: 12:37 07/22 12:47 Order name: Glucose, Ancillary Testing [facility] 07/22 13:25 Order name: Urine Dipstick--Ancillary (enter results); Complete Time: 14:03 07/22 13:27 Order name: Urine --Ancillary (enter results); Complete Time: 14:03 07/22 13:43 Order name: T4 Free; Complete Time: 14:03 [facility] 07/22 14:00 Order name: Brain Wo Cont; Complete Time: 15:00 [facility] 07/22 12:23 Order name: NPO; Complete Time: 12:38 07/22 12:23 Order name: Stroke Swallow Screen; Complete Time: 12:38 07/22 12:24 Order name: Cardiac monitoring; Complete Time: 12:37 [facility] 07/22 12:24 Order name: EKG - Nurse/Tech; Complete Time: 12:37 [facility] 07/22 12:24 Order name: IV Saline Lock; Complete Time: 12:37 [facility] 07/22 12:24 Order name: Labs collected and sent; Complete Time: 12:37 [facility] 07/22 12:24 Order name: O2 Per Protocol; Complete Time: 12:37 [facility] 07/22 12:24 Order name: O2 Sat Monitoring; Complete Time: 12:37 [facility] 07/22 12:24 Order name: Urine Dipstick-Ancillary (obtain specimen); Complete Time: 19:47 [facility] 07/22 12:57 Order name: Labs - recollect needed: all of them; Complete Time: 13:04 sg Administered Medications: 12:45 Drug: NS 0.9% 1000 ml Route: IV; Rate: 1 bolus; Site: right forearm; sv 14:00 Follow up: Response: No adverse reaction; IV Status: Completed infusion; IV Intake: sv 1000ml 12:45 Drug: foLIC Acid 1 mg Route: IVPB; Site: right forearm; sv 14:20 Drug: Aspirin Chewable Tablet 324 mg Route: PO; sg 15:00 Follow up: Response: No adverse reaction sv Disposition: 07/22/19 15:00 Discharged to Home. Impression: Headache, Weakness. - Condition is Stable. - Discharge Instructions: General Headache Without Cause, Migraine Headache, Weakness, Migraine Headache, Mjey-yq-Lnxi, Weakness, Xkko-qz-Fcqa, Aspirin and Your Heart, General Headache Without Cause, Dkdw-et-Dmfz. - Prescriptions for Vitamin 27- 0.8 mg Oral Tablet - take 1 tablet by ORAL route once daily; 30 tablet. Zofran 4 mg Oral Tablet - take 1 tablet by ORAL route every 12 hours As needed; 20 tablet. Tramadol 50 mg Oral Tablet - take 1 tablet by ORAL route every 8 hours as needed; 26 tablet. - Medication Reconciliation Form, Thank You Letter, Antibiotic Education, Prescription Opioid Use form. - Follow up: Private Physician; When: 2 - 3 days; Reason: Recheck today's complaints, Continuance of care, Re-evaluation by your physician. Follow up: Michael Monzon; When: 2 - 3 days; Reason: Recheck today's complaints, Continuance of care, Re-evaluation by your physician. - Problem is new. - Symptoms have improved. NIH Stroke Scale - NIH Stroke Score Date: 07/22/2019 Time: 12:16 Total Score = 1 1a. Level of Consciousness (LOC) - 0(Alert) 1b. Level of Consciousness (LOC) (Year \T\ Age) - 0(Both) 1c. LOC Commands (Open \T\ Closes Eyes/Scheduler Maintenance) - 0(Both) 2. Best Gaze (Lateral Gaze Paresis) - 0(Normal) 3. Visual Field Loss - 0(No visual loss) 4. Facial Palsy - 0(Normal) 5a. Left Arm: Motor (10-second hold) - 0(No drift) 5b. Right Arm: Motor (10-second hold) - 0(No drift) 6a. Left Leg: Motor (5-second hold - always test supine) - 0(No drift) 6b. Right Leg: Motor (5-second hold - always test supine) - 0(No drift) 7. Limb Ataxia (finger/nose \T\ heel/kevin - test with eyes open) - 0(Absent) 8. Sensory Loss (pinprick arms/legs/face) - 1(Mild to moderate loss) 9. Best Language: Aphasia (description/naming/reading) - 0(No aphasia) 10. Dysarthria (speech clarity - read or repeat words) - 0(Normal) 11. Extinction and Inattention (visual/tactile/auditory/spatial/personal) - 0(No abnormality) Initials: NIH Stroke Scale - NIH Stroke Score Date: 07/22/2019 Time: 12:37 Total Score = 0 1a. Level of Consciousness (LOC) - 0(Alert) 1b. Level of Consciousness (LOC) (Year \T\ Age) - 0(Both) 1c. LOC Commands (Open \T\ Closes Eyes/Scheduler Maintenance) - 0(Both) 2. Best Gaze (Lateral Gaze Paresis) - 0(Normal) 3. Visual Field Loss - 0(No visual loss) 4. Facial Palsy - 0(Normal) 5a. Left Arm: Motor (10-second hold) - 0(No drift) 5b. Right Arm: Motor (10-second hold) - 0(No drift) 6a. Left Leg: Motor (5-second hold - always test supine) - 0(No drift) 6b. Right Leg: Motor (5-second hold - always test supine) - 0(No drift) 7. Limb Ataxia (finger/nose \T\ heel/kevin - test with eyes open) - 0(Absent) 8. Sensory Loss (pinprick arms/legs/face) - 0(Normal) 9. Best Language: Aphasia (description/naming/reading) - 0(No aphasia) 10. Dysarthria (speech clarity - read or repeat words) - 0(Normal) 11. Extinction and Inattention (visual/tactile/auditory/spatial/personal) - 0(No abnormality) Initials: manuela Signatures: Dispatcher [employer] [facility] Donya Haji RN RN aj1 Zuleima Ivory RN RN sv Anuj Pabon RN RN sg Anderson, Corey, MD MD cha Corrections: (The following items were deleted from the chart) 12:28 12:25 CT-STROKE BRAIN W/O CONTRAST+CT.RAD.BRZ ordered. EDUT EDUT 12:37 12:23 Cardiac monitoring ordered. sv sv 12:37 12:23 EKG - Nurse/Tech ordered. sv sv 12:38 12:23 IV Saline Lock ordered. sv sv 12:38 12:23 Labs collected and sent ordered. sv sv 12:38 12:23 Oxygen Per Protocol ordered. sv sv 12:38 12:23 O2 Sat Monitoring ordered. sv sv 12:40 12:24 BASIC METABOLIC PANEL+C.LAB.BRZ ordered. [facility] EDUT 12:40 12:24 CBC+H.LAB.BRZ ordered. [facility] EDUT 12:40 12:25 PROTIME (+INR)+COAG.LAB.BRZ ordered. [facility] EDUT 12:40 12:25 Chest Single View+RAD.RAD.BRZ ordered. [facility] EDUT 14:00 12:25 MR STROKE PROTOCOL+MRI.RAD.BRZ ordered. [facility] EDUT 16:10 15:00 07/22/2019 15:00 Discharged to Home. Impression: Headache; Weakness. sv Condition is Stable. Discharge Instructions: General Headache Without Cause, Migraine Headache, Weakness, Migraine Headache, Dfjg-ud-Upua, Weakness, Zsuj-ei-Siey, Aspirin and Your Heart, General Headache Without Cause, Kafx-in-Lhsl. Prescriptions for Vitamin 27-0.8 mg Oral Tablet - take 1 tablet by ORAL route once daily; 30 tablet, Zofran 4 mg Oral Tablet - take 1 tablet by ORAL route every 12 hours As needed; 20 tablet, Tramadol 50 mg Oral Tablet - take 1 tablet by ORAL route every 8 hours as needed; 26 tablet. and Forms are Medication Reconciliation Form, Thank You Letter, Antibiotic Education, Prescription Opioid Use. Follow up: Private Physician; When: 2 - 3 days; Reason: Recheck today's complaints, Continuance of care, Re-evaluation by your physician. Follow up: Michael Monzon; When: 2 - 3 days; Reason: Recheck today's complaints, Continuance of care, Re-evaluation by your physician. Problem is new. Symptoms have improved. manuela
[2019-07-22 16:30] VITALS: TEMP 97.5
[2019-07-22 16:51] VITALS: BP 138/77; O2SAT 95
--- NOTE | 2019-07-23 18:37 | EKG ---
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
== END 2019-07-22 16:10 | disposition home or self-care (01) ==
LOC: ER 11:50
DX: R51 Headache (principal); R53.1 Weakness; I10 Essential (primary) hypertension; E11.9 Type 2 diabetes mellitus without complications; E03.9 Hypothyroidism, unspecified; J45.909 Unspecified asthma, uncomplicated; Z79.4 Long term (current) use of insulin; Z88.1 Allergy status to other antibiotic agents; Z88.3 Allergy status to other anti-infective agents; Z88.5 Allergy status to narcotic agent
CPT/HCPCS: 96361; 93005; 87088; 85025; 87086; 80048; 36415; 83735; 81025; 85610; 82947; 80076; 85730; 84443; 81003; 84484; 84439; 83880; 70450; 71045; 70551; 96374; 99285; J7030

== ENCOUNTER 2019-09-15 09:15 | Emergency (ER) | payer BC ==
--- OUTSIDE RECORDS SUMMARY | 2019-09-15 09:19 | XMS REPORT ---
[...] System Date Date MetFORMIN HCl ER ND 36314150026 750 MG Orally Active 1 tablet Once a day with evening meal Levothyroxine ND 29196042968 88 MCG Oral Active TAKE 1 Sodium TABLET BY MOUTH EVERY MORNING GlyBURIDE ND 24548201452 5 MG Orally BID Active 2 tabs bid with meal Losartan ND 69203730781 100-12.5 MG Oct 10, Active 1 tablet Potassium-HCTZ Orally Once a 2019 day Losartan ND 20095235687 50 MG Orally Active 1 tablet Potassium Once a day Hydrocortisone ND 66369666201 10 MG Orally Active 1 tablet every 12 hrs with food or milk Amlodipine ND 70124654086 10 MG Orally Active 1 tablet Besylate Once a day Results No Known Results Summary Purpose eClinicalWorks Submission
--- OUTSIDE RECORDS SUMMARY | 2019-09-15 09:19 | XMS REPORT ---
:1970 Author Organization [facility] Address [address] [place] [address] Dr. Holbrook [address] [place] [id number] Care Team Providers Name Role Phone DAJUAN GEORGE Unavailable Unavailable MITCHELL DOBSON Unavailable Unavailable Problems This patient has no known problems. Allergies, Adverse Reactions, Alerts This patient has no known allergies or adverse reactions. Medications This patient has no known medications. Results Test Description Test Time Test Comments Text Results Atomic Results Result Comments TISSUE EXAM 2018-06-28 08:38:00 Surgical Pathology Report Case: [id number] Authorizing Provider: Alex Ruano MD Collected: 06/24/2018801 Ordering Location: [address] Received: 06/24/2018 0809 Service Pathologist: Chon Andino MD Specimens: A) - Tumor, pituitary tumor B) - Tumor, pituitary tumor A.PITUITARY GLAND, TRANSSPHENOIDAL 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 PITUITARY GLAND, TRANSSPHENOIDAL HYPOPHYSECTOMY:NULL CELL ADENOMAENTRAPPED ADENOHYPOPHYSIS Signing Pathologist Direct Phone Line: [phone] signed by Chon Andino MD on 06/28/2018 at 8:38 AMImmunoperoxidase stains performed on the second specimen show that the tumor has no staining for growth hormone, LH, FSH, TSH, prolactin, or ACTH. 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 The MIB-1 proliferation index is less than 1%. 56334 x 2; 82359; 36579; 27338 x 6; 90279Owgmushlg adenoma A. Pituitary tumor; B. Pituitary tumorA. [...] stains. Immunohistochemistry technical testing was performed at [facility] Pathology Laboratory where it was developed and [...] (BEAKER) (test 141 mg/dL 70-110 TESTED AT [facility] [address] [place] [address] lhne=8487) [facility] [address] POCT-GLUCOSE [id number] 12:06:00 Test Item Value Reference Range Comments POC-GLUCOSE METER (BEAKER) 217 mg/dL 70-110 TESTED AT [address] (test kjbl=7401) [facility] [address] BASIC METABOLIC [id number] 07:18:00 Test Item Value Reference Range Comments SODIUM (BEAKER) (test 139 meq/L 136-145 jkqy=274) POTASSIUM (BEAKER) (test 4.1 meq/L 3.5-5.1 hhfo=008) CHLORIDE (BEAKER) (test 105 meq/L 98-107 pnkn=543) CO2 (BEAKER) (test 28 meq/L 22-29 nvyj=074) BLOOD UREA NITROGEN 11 mg/dL 7-21 (BEAKER) (test gwzw=874) CREATININE (BEAKER) (test 0.69 mg/dL 0.57-1.25 mopr=539) GLUCOSE RANDOM (BEAKER) 163 mg/dL 70-105 (test tnyq=624) CALCIUM (BEAKER) (test 8.6 mg/dL 8.4-10.2 pant=204) EGFR (BEAKER) (test 91 mL/min/1.73 sq m ESTIMATED GFR IS NOT mrnb=4868) ACCURATE CREATININE CLEARANCE IN PREDICTING GLOMERULAR FILTRATION RATE. ESTIMATED GFR IS NOT APPLICABLE FOR DIALYSIS PATIENTS. CBC W/PLT COUNT & AUTO [id number] 06:49:00 Test Item Value Reference Range Comments WHITE BLOOD CELL COUNT (BEAKER) (test hico=012) 8.7 K/ L 3.5-10.5 RED BLOOD CELL COUNT (BEAKER) (test hxxk=051) 4.82 M/ L 3.93-5.22 HEMOGLOBIN (BEAKER) (test dkpg=955) 13.2 GM/DL 11.2-15.7 HEMATOCRIT (BEAKER) (test nhvd=337) 40.8 % 34.1-44.9 MEAN CORPUSCULAR VOLUME (BEAKER) (test vavy=345) 84.6 fL 79.4-94.8 MEAN CORPUSCULAR HEMOGLOBIN (BEAKER) (test 27.4 pg 25.6-32.2 esge=839) MEAN CORPUSCULAR HEMOGLOBIN CONC (BEAKER) (test 32.4 GM/DL 32.2-35.5 uajj=769) RED CELL DISTRIBUTION WIDTH (BEAKER) (test 13.2 % 11.7-14.4 naah=729) PLATELET COUNT (BEAKER) (test zwca=594) 233 K/CU MM 150-450 MEAN PLATELET VOLUME (BEAKER) (test nnzk=232) 11.5 fL 9.4-12.3 NUCLEATED RED BLOOD CELLS (BEAKER) (test 0 /100 WBC 0-0 titr=186) NEUTROPHILS RELATIVE PERCENT (BEAKER) (test 65 % disb=206) LYMPHOCYTES RELATIVE PERCENT (BEAKER) (test 24 % fnua=422) MONOCYTES RELATIVE PERCENT (BEAKER) (test 8 % uitt=237) EOSINOPHILS RELATIVE PERCENT (BEAKER) (test 2 % uwoi=780) BASOPHILS RELATIVE PERCENT (BEAKER) (test 0 % dcwr=914) NEUTROPHILS ABSOLUTE COUNT (BEAKER) (test 5.65 K/ L 1.56-6.13 anja=971) LYMPHOCYTES ABSOLUTE COUNT (BEAKER) (test 2.07 K/ L 1.18-3.74 xcnk=566) MONOCYTES ABSOLUTE COUNT (BEAKER) (test 0.70 K/ L 0.24-0.36 yypy=721) EOSINOPHILS ABSOLUTE COUNT (BEAKER) (test 0.16 K/ L 0.04-0.36 fmno=910) BASOPHILS ABSOLUTE COUNT (BEAKER) (test 0.02 K/ L 0.01-0.08 usbl=509) IMMATURE GRANULOCYTES-RELATIVE PERCENT (BEAKER) 1 % 0-1 (test ttgx=4238) BASIC METABOLIC [id number] 23:52:00 Test Item Value Reference Range Comments SODIUM (BEAKER) (test 139 meq/L 136-145 dpvj=387) POTASSIUM (BEAKER) (test 4.0 meq/L 3.5-5.1 Specimen slightly tecj=163) hemolyzed CHLORIDE (BEAKER) (test 103 meq/L 98-107 ljfs=919) CO2 (BEAKER) (test 28 meq/L 22-29 hlnu=009) BLOOD UREA NITROGEN 12 mg/dL 7-21 (BEAKER) (test vkfx=603) CREATININE (BEAKER) (test 0.72 mg/dL 0.57-1.25 Specimen slightly ijsn=853) hemolyzed GLUCOSE RANDOM (BEAKER) 193 mg/dL 70-105 (test yvbe=832) CALCIUM (BEAKER) (test 8.6 mg/dL 8.4-10.2 dano=172) EGFR (BEAKER) (test 86 mL/min/1.73 sq m ESTIMATED GFR IS NOT vxde=0181) ACCURATE CREATININE CLEARANCE IN PREDICTING GLOMERULAR FILTRATION RATE. ESTIMATED GFR IS NOT APPLICABLE FOR DIALYSIS PATIENTS. SODIUM, RANDOM [id number] 23:49:00 Test Item Value Reference Range Comments SODIUM URINE (BEAKER) (test xtmm=593) < meq/L Reference Range: No NormalsCBC W/PLT COUNT & AUTO [id number] 23: 35:00 Test Item Value Reference Range Comments WHITE BLOOD CELL COUNT (BEAKER) (test owcf=540) 9.7 K/ L 3.5-10.5 RED BLOOD CELL COUNT (BEAKER) (test quuh=444) 4.46 M/ L 3.93-5.22 HEMOGLOBIN (BEAKER) (test pyqm=337) 12.2 GM/DL 11.2-15.7 HEMATOCRIT (BEAKER) (test xiuy=003) 37.8 % 34.1-44.9 MEAN CORPUSCULAR VOLUME (BEAKER) (test etet=005) 84.8 fL 79.4-94.8 MEAN CORPUSCULAR HEMOGLOBIN (BEAKER) (test 27.4 pg 25.6-32.2 mojb=784) MEAN CORPUSCULAR HEMOGLOBIN CONC (BEAKER) (test 32.3 GM/DL 32.2-35.5 qlvx=743) RED CELL DISTRIBUTION WIDTH (BEAKER) (test 13.0 % 11.7-14.4 vcwh=526) PLATELET COUNT (BEAKER) (test okee=342) 210 K/CU MM 150-450 MEAN PLATELET VOLUME (BEAKER) (test sqjf=852) 11.4 fL 9.4-12.3 NUCLEATED RED BLOOD CELLS (BEAKER) (test 0 /100 WBC 0-0 afuh=357) NEUTROPHILS RELATIVE PERCENT (BEAKER) (test 61 % znqc=378) LYMPHOCYTES RELATIVE PERCENT (BEAKER) (test 28 % armv=031) MONOCYTES RELATIVE PERCENT (BEAKER) (test 8 % coxg=630) EOSINOPHILS RELATIVE PERCENT (BEAKER) (test 2 % yhgi=611) BASOPHILS RELATIVE PERCENT (BEAKER) (test 0 % dutd=501) NEUTROPHILS ABSOLUTE COUNT (BEAKER) (test 5.87 K/ L 1.56-6.13 wlok=416) LYMPHOCYTES ABSOLUTE COUNT (BEAKER) (test 2.72 K/ L 1.18-3.74 wdhp=538) MONOCYTES ABSOLUTE COUNT (BEAKER) (test 0.80 K/ L 0.24-0.36 cokl=848) EOSINOPHILS ABSOLUTE COUNT (BEAKER) (test 0.22 K/ L 0.04-0.36 usbp=765) BASOPHILS ABSOLUTE COUNT (BEAKER) (test 0.03 K/ L 0.01-0.08 hmrm=074) IMMATURE GRANULOCYTES-RELATIVE PERCENT (BEAKER) 1 % 0-1 (test wyvo=1137) CT, BRAIN, WITHOUT [id number] 22:57:00FINAL REPORT CT Head without contrast CLINICAL [...] Gamboa Verified Date/Time: 06/26/2018 22:57:28 [address] POCT-GLUCOSE [id number] 21:07:00 Test Item Value Reference Range Comments POC-GLUCOSE METER (BEAKER) 211 mg/dL 70-110 TESTED AT [address] (test dxmj=5256) [facility] [address] BASIC METABOLIC [id number] 14:29:00 Test Item Value Reference Range Comments SODIUM (BEAKER) (test 137 meq/L 136-145 huud=495) POTASSIUM (BEAKER) (test 3.6 meq/L 3.5-5.1 qgsc=779) CHLORIDE (BEAKER) (test 100 meq/L 98-107 sdbt=296) CO2 (BEAKER) (test 32 meq/L 22-29 sbgr=567) BLOOD UREA NITROGEN 12 mg/dL 7-21 (BEAKER) (test gupg=982) CREATININE (BEAKER) (test 0.71 mg/dL 0.57-1.25 svgd=506) GLUCOSE RANDOM (BEAKER) 182 mg/dL 70-105 (test umjo=100) CALCIUM (BEAKER) (test 8.7 mg/dL 8.4-10.2 njum=731) EGFR (BEAKER) (test 88 mL/min/1.73 sq m ESTIMATED GFR IS NOT opkg=9983) ACCURATE CREATININE CLEARANCE IN PREDICTING GLOMERULAR FILTRATION RATE. ESTIMATED GFR IS NOT APPLICABLE FOR DIALYSIS PATIENTS. CBC W/PLT COUNT & AUTO [id number] 14:25:00 Test Item Value Reference Range Comments WHITE BLOOD CELL COUNT (BEAKER) (test xtwu=724) 12.3 K/ L 3.5-10.5 RED BLOOD CELL COUNT (BEAKER) (test itiu=343) 4.76 M/ L 3.93-5.22 HEMOGLOBIN (BEAKER) (test lwre=177) 13.1 GM/DL 11.2-15.7 HEMATOCRIT (BEAKER) (test hhqf=295) 40.6 % 34.1-44.9 MEAN CORPUSCULAR VOLUME (BEAKER) (test yful=988) 85.3 fL 79.4-94.8 MEAN CORPUSCULAR HEMOGLOBIN (BEAKER) (test 27.5 pg 25.6-32.2 wdxr=585) MEAN CORPUSCULAR HEMOGLOBIN CONC (BEAKER) (test 32.3 GM/DL 32.2-35.5 aawv=484) RED CELL DISTRIBUTION WIDTH (BEAKER) (test 13.1 % 11.7-14.4 xhyf=058) PLATELET COUNT (BEAKER) (test avpo=515) 254 K/CU MM 150-450 MEAN PLATELET VOLUME (BEAKER) (test ctuk=726) 11.1 fL 9.4-12.3 NUCLEATED RED BLOOD CELLS (BEAKER) (test 0 /100 WBC 0-0 wzen=208) NEUTROPHILS RELATIVE PERCENT (BEAKER) (test 68 % migs=756) LYMPHOCYTES RELATIVE PERCENT (BEAKER) (test 24 % tpem=512) MONOCYTES RELATIVE PERCENT (BEAKER) (test 6 % obul=619) EOSINOPHILS RELATIVE PERCENT (BEAKER) (test 1 % fbzw=534) BASOPHILS RELATIVE PERCENT (BEAKER) (test 0 % bhmj=044) NEUTROPHILS ABSOLUTE COUNT (BEAKER) (test 8.42 K/ L 1.56-6.13 xmyq=615) LYMPHOCYTES ABSOLUTE COUNT (BEAKER) (test 2.90 K/ L 1.18-3.74 qqiw=681) MONOCYTES ABSOLUTE COUNT (BEAKER) (test 0.79 K/ L 0.24-0.36 gwha=494) EOSINOPHILS ABSOLUTE COUNT (BEAKER) (test 0.07 K/ L 0.04-0.36 xyey=411) BASOPHILS ABSOLUTE COUNT (BEAKER) (test 0.05 K/ L 0.01-0.08 ccps=998) IMMATURE GRANULOCYTES-RELATIVE PERCENT (BEAKER) 1 % 0-1 (test fokt=7985) POCT-GLUCOSE [id number] 13:38:00 Test Item Value Reference Range Comments POC-GLUCOSE METER (BEAKER) 219 mg/dL 70-110 TESTED AT [address] (test nlqa=5214) [place] [address] POCT-GLUCOSE [id number] 12:34:00 Test Item Value Reference Range Comments POC-GLUCOSE METER (BEAKER) 193 mg/dL 70-110 TESTED AT [address] (test awmf=9998) [place] [address] POCT-GLUCOSE [id number] 16:17:00 Test Item Value Reference Range Comments POC-GLUCOSE METER (BEAKER) 244 mg/dL 70-110 TESTED AT [address] (test ytkn=1061) [place] [address] POCT-GLUCOSE [id number] 12:08:00 Test Item Value Reference Range Comments POC-GLUCOSE METER (BEAKER) 229 mg/dL 70-110 TESTED AT [address] (test fali=6499) [place] [address] POCT-GLUCOSE [id number] 08:27:00 Test Item Value Reference Range Comments POC-GLUCOSE METER (BEAKER) 280 mg/dL 70-110 TESTED AT [address] (test zwbr=9968) [facility] [address] OSMOLALITY, [id number] 05:16:00 Test Item Value Reference Range Comments OSMOLALITY URINE (BEAKER) (test feul=441) 340 mOsm/kg 40-1,400 SPECIFIC GRAVITY, [id number] 04:53:00 Test Item Value Reference Range Comments SPECIFIC GRAVITY UA (BEAKER) (test icjs=641) 1.010 1.001-1.035 POCT-GLUCOSE [id number] 22:29:00 Test Item Value Reference Range Comments POC-GLUCOSE METER (BEAKER) 257 mg/dL 70-110 TESTED AT [address] (test kstu=9862) [place] [address] BASIC METABOLIC [id number] 17:49:00 Test Item Value Reference Range Comments SODIUM (BEAKER) (test 137 meq/L 136-145 ekff=236) POTASSIUM (BEAKER) (test 4.6 meq/L 3.5-5.1 yxrm=182) CHLORIDE (BEAKER) (test 102 meq/L 98-107 gxwf=527) CO2 (BEAKER) (test 26 meq/L 22-29 krjk=842) BLOOD UREA NITROGEN 14 mg/dL 7-21 (BEAKER) (test mqqt=375) CREATININE (BEAKER) (test 0.78 mg/dL 0.57-1.25 yloy=765) GLUCOSE RANDOM (BEAKER) 246 mg/dL 70-105 (test mtbs=405) CALCIUM (BEAKER) (test 8.7 mg/dL 8.4-10.2 syrj=188) EGFR (BEAKER) (test 79 mL/min/1.73 sq m ESTIMATED GFR IS NOT fhmn=8572) ACCURATE CREATININE CLEARANCE IN PREDICTING GLOMERULAR FILTRATION RATE. ESTIMATED GFR IS NOT APPLICABLE FOR DIALYSIS PATIENTS. POCT-GLUCOSE [id number] 17:02:00 Test Item Value Reference Range Comments POC-GLUCOSE METER (BEAKER) 235 mg/dL 70-110 TESTED AT [address] (test plio=0528) [place] [address] POCT-GLUCOSE [id number] 12:06:00 Test Item Value Reference Range Comments POC-GLUCOSE METER (BEAKER) 249 mg/dL 70-110 TESTED AT [address] (test hekp=8512) [place] [address] POCT-GLUCOSE [id number] 09:40:00 Test Item Value Reference Range Comments POC-GLUCOSE METER (BEAKER) 278 mg/dL 70-110 TESTED AT [address] (test emed=8086) [place] [address] BASIC METABOLIC [id number] 06:14:00 Test Item Value Reference Range Comments SODIUM (BEAKER) (test 141 meq/L 136-145 paik=259) POTASSIUM (BEAKER) (test 4.1 meq/L 3.5-5.1 zmqn=855) CHLORIDE (BEAKER) (test 104 meq/L 98-107 wgng=680) CO2 (BEAKER) (test 30 meq/L 22-29 cdpm=640) BLOOD UREA NITROGEN 14 mg/dL 7-21 (BEAKER) (test bsir=106) CREATININE (BEAKER) (test 0.70 mg/dL 0.57-1.25 dehf=832) GLUCOSE RANDOM (BEAKER) 146 mg/dL 70-105 (test uyjh=916) CALCIUM (BEAKER) (test 9.4 mg/dL 8.4-10.2 voce=679) EGFR (BEAKER) (test 89 mL/min/1.73 sq m ESTIMATED GFR IS NOT fvld=7829) ACCURATE CREATININE CLEARANCE IN PREDICTING GLOMERULAR FILTRATION RATE. ESTIMATED GFR IS NOT APPLICABLE FOR DIALYSIS PATIENTS. [id number] 06:03:00 Test Item Value Reference Range Comments PROTIME (BEAKER) (test uxuw=405) 13.8 seconds 11.7-14.7 INR (BEAKER) (test hsds=205) 1.1 <=5.9 PARTIAL THROMBOPLASTIN TIME (BEAKER) (test 32.0 seconds 22.5-36.0 nbrm=479) RECOMMENDED COUMADIN/WARFARIN INR THERAPY RANGESSTANDARD DOSE: 2.0 - 3.0 Includes: PROPHYLAXIS forvenous thrombosis, systemic embolization; TREATMENT for venous thrombosis and/or pulmonary embolus.HIGH RISK: Target INR is 2.5-3.5 for patients with mechanical heart valves. SCREEN, [id number] 05: 59:00 Test Item Value Reference Range Comments TEST URINE (BEAKER) (test bqoh=618) Negative POCT-GLUCOSE [id number] 05:46:00 Test Item Value Reference Range Comments POC-GLUCOSE METER (BEAKER) 140 mg/dL 70-110 TESTED AT [facility] [address] [facility] (test mwlz=9579) [facility] [address] CBC W/PLT COUNT & AUTO [id number] 05:46:00 Test Item Value Reference Range Comments WHITE BLOOD CELL COUNT (BEAKER) (test jjaf=138) 9.6 K/ L 3.5-10.5 RED BLOOD CELL COUNT (BEAKER) (test ivfu=176) 5.00 M/ L 3.93-5.22 HEMOGLOBIN (BEAKER) (test qtpf=427) 14.0 GM/DL 11.2-15.7 HEMATOCRIT (BEAKER) (test pzkq=924) 42.1 % 34.1-44.9 MEAN CORPUSCULAR VOLUME (BEAKER) (test qrea=242) 84.2 fL 79.4-94.8 MEAN CORPUSCULAR HEMOGLOBIN (BEAKER) (test 28.0 pg 25.6-32.2 mmtv=387) MEAN CORPUSCULAR HEMOGLOBIN CONC (BEAKER) (test 33.3 GM/DL 32.2-35.5 cjcr=460) RED CELL DISTRIBUTION WIDTH (BEAKER) (test 13.0 % 11.7-14.4 hint=196) PLATELET COUNT (BEAKER) (test jnxg=068) 227 K/CU MM 150-450 MEAN PLATELET VOLUME (BEAKER) (test klxw=223) 11.8 fL 9.4-12.3 NUCLEATED RED BLOOD CELLS (BEAKER) (test 0 /100 WBC 0-0 zlha=962) NEUTROPHILS RELATIVE PERCENT (BEAKER) (test 52 % palo=704) LYMPHOCYTES RELATIVE PERCENT (BEAKER) (test 38 % ldii=621) MONOCYTES RELATIVE PERCENT (BEAKER) (test 6 % enfo=184) EOSINOPHILS RELATIVE PERCENT (BEAKER) (test 3 % gcdp=058) BASOPHILS RELATIVE PERCENT (BEAKER) (test 1 % npmg=932) NEUTROPHILS ABSOLUTE COUNT (BEAKER) (test 5.03 K/ L 1.56-6.13 lmje=945) LYMPHOCYTES ABSOLUTE COUNT (BEAKER) (test 3.62 K/ L 1.18-3.74 qcnd=543) MONOCYTES ABSOLUTE COUNT (BEAKER) (test 0.62 K/ L 0.24-0.36 ycnp=083) EOSINOPHILS ABSOLUTE COUNT (BEAKER) (test 0.27 K/ L 0.04-0.36 aiur=478) BASOPHILS ABSOLUTE COUNT (BEAKER) (test 0.05 K/ L 0.01-0.08 kbqj=262) IMMATURE GRANULOCYTES-RELATIVE PERCENT (BEAKER) 1 % 0-1 (test ferd=5259) POCT-GLUCOSE [id number] 21:27:00 Test Item Value Reference Range Comments POC-GLUCOSE METER (BEAKER) 223 mg/dL 70-110 TESTED AT [address] (test zxqc=1022) [place] [address] POCT-GLUCOSE [id number] 17:26:00 Test Item Value Reference Range Comments POC-GLUCOSE METER (BEAKER) 223 mg/dL 70-110 TESTED AT [address] (test colf=9144) [place] [address] BASIC METABOLIC [id number] 16:43:00 Test Item Value Reference Range Comments SODIUM (BEAKER) (test 139 meq/L 136-145 qsqg=594) POTASSIUM (BEAKER) (test 4.5 meq/L 3.5-5.1 Specimen slightly fwss=482) hemolyzed CHLORIDE (BEAKER) (test 102 meq/L 98-107 hpaf=911) CO2 (BEAKER) (test 29 meq/L 22-29 hnmb=235) BLOOD UREA NITROGEN 16 mg/dL 7-21 (BEAKER) (test triu=113) CREATININE (BEAKER) (test 0.76 mg/dL 0.57-1.25 Specimen slightly dfvl=801) hemolyzed GLUCOSE RANDOM (BEAKER) 217 mg/dL 70-105 (test qnci=085) CALCIUM (BEAKER) (test 9.6 mg/dL 8.4-10.2 ufpm=111) EGFR (BEAKER) (test 81 mL/min/1.73 sq m ESTIMATED GFR IS NOT yood=3022) ACCURATE CREATININE CLEARANCE IN PREDICTING GLOMERULAR FILTRATION RATE. ESTIMATED GFR IS NOT APPLICABLE FOR DIALYSIS PATIENTS. POCT-GLUCOSE [id number] 09:06:00 Test Item Value Reference Range Comments POC-GLUCOSE METER (BEAKER) 265 mg/dL 70-110 TESTED AT [address] (test spwi=4041) [place] [address] POCT-GLUCOSE [id number] 00:22:00 Test Item Value Reference Range Comments POC-GLUCOSE METER (BEAKER) 210 mg/dL 70-110 TESTED AT [address] (test qosq=5050) [place] [address] POCT-GLUCOSE [id number] 20:27:00 Test Item Value Reference Range Comments POC-GLUCOSE METER (BEAKER) 235 mg/dL 70-110 TESTED AT [address] (test jnxx=9925) [place] [address] POCT-GLUCOSE [id number] 17:10:00 Test Item Value Reference Range Comments POC-GLUCOSE METER (BEAKER) 264 mg/dL 70-110 TESTED AT [address] (test igmv=6631) [place] [address] POCT-GLUCOSE [id number] 16:00:00 Test Item Value Reference Range Comments POC-GLUCOSE METER (BEAKER) 242 mg/dL 70-110 TESTED AT [address] (test xlrp=5378) [place] [address] POCT-GLUCOSE [id number] 08:54:00 Test Item Value Reference Range Comments POC-GLUCOSE METER (BEAKER) 224 mg/dL 70-110 TESTED AT [address] (test wdiw=9174) [place] [address] POCT-GLUCOSE [id number] 21:30:00 Test Item Value Reference Range Comments POC-GLUCOSE METER (BEAKER) 254 mg/dL 70-110 TESTED AT [address] (test pcge=2416) [place] [address] POCT-GLUCOSE [id number] 17:23:00 Test Item Value Reference Range Comments POC-GLUCOSE METER (BEAKER) 193 mg/dL 70-110 TESTED AT [address] (test krus=3832) [place] [address] POCT-GLUCOSE [id number] 11:53:00 Test Item Value Reference Range Comments POC-GLUCOSE METER (BEAKER) 179 mg/dL 70-110 TESTED AT [address] (test kbmp=0946) [place] [address] [id number] 10:15:00 Test Item Value Reference Range Comments CORTISOL, TOTAL (BEAKER) (test swjm=9538) 4.7 ug/dL 3.7-19.4 POCT-GLUCOSE [id number] 08:07:00 Test Item Value Reference Range Comments POC-GLUCOSE METER (BEAKER) 184 mg/dL 70-110 TESTED AT [address] (test rzrd=1542) [place] [address] CT, BRAIN, WITHOUT [id number] 22:07:00FINAL REPORT CT Head without contrast CLINICAL [...] [place] Verified Date/Time: 06/20/2018 22:07:25 Reading Location: [address] Transitional Reading Room POCT-GLUCOSE [id number] 21:00:00 Test Item Value Reference Range Comments POC-GLUCOSE METER (BEAKER) 227 mg/dL 70-110 TESTED AT [address] (test ljzr=6685) [place] [address] POCT-GLUCOSE [id number] 16:57:00 Test Item Value Reference Range Comments POC-GLUCOSE METER (BEAKER) 216 mg/dL 70-110 TESTED AT [address] (test lqmt=4042) [place] [address] POCT-GLUCOSE [id number] 13:11:00 Test Item Value Reference Range Comments POC-GLUCOSE METER (BEAKER) 198 mg/dL 70-110 TESTED AT [address] (test mudf=6059) [place] [id number] POCT-GLUCOSE [id number] 07:47:00 Test Item Value Reference Range Comments POC-GLUCOSE METER (BEAKER) 213 mg/dL 70-110 TESTED AT [address] (test fnon=0245) [place] [address] BASIC METABOLIC [id number] 06:57:00 Test Item Value Reference Range Comments SODIUM (BEAKER) (test 138 meq/L 136-145 wjmv=794) POTASSIUM (BEAKER) (test 3.9 meq/L 3.5-5.1 cuay=847) CHLORIDE (BEAKER) (test 105 meq/L 98-107 iugv=799) CO2 (BEAKER) (test 24 meq/L 22-29 zmla=739) BLOOD UREA NITROGEN 12 mg/dL 7-21 (BEAKER) (test zrmz=531) CREATININE (BEAKER) (test 0.73 mg/dL 0.57-1.25 ylme=366) GLUCOSE RANDOM (BEAKER) 192 mg/dL 70-105 (test aled=716) CALCIUM (BEAKER) (test 8.8 mg/dL 8.4-10.2 bnqo=217) EGFR (BEAKER) (test 85 mL/min/1.73 sq m ESTIMATED GFR IS NOT rcna=4572) ACCURATE CREATININE CLEARANCE IN PREDICTING GLOMERULAR FILTRATION RATE. ESTIMATED GFR IS NOT APPLICABLE FOR DIALYSIS PATIENTS. POCT-GLUCOSE [id number] 05:24:00 Test Item Value Reference Range Comments POC-GLUCOSE METER (BEAKER) 192 mg/dL 70-110 TESTED AT [facility] [address] [facility] (test pxgq=1831) [facility] [address] [address], [place] [id number] 01:03:00FINAL REPORT CLINICAL HISTORY: Stroke TECHNIQUE: Initially, [...] Verified Date/ Time: 06/20/2018 01:03:44 Reading Location: [address] Transitional Reading Room [facility], [place], [id number] 01:03:00FINAL REPORT CLINICAL HISTORY: Stroke TECHNIQUE: Initially, [...] Verified Date/ Time: 06/20/2018 01:03:44 Reading Location: [address] Reading Room POCT-GLUCOSE [id number] 00:40:00 Test Item Value Reference Range Comments POC-GLUCOSE METER (BEAKER) 283 mg/dL 70-110 TESTED AT [address] (test aobi=3212) [facility] [address] POCT-GLUCOSE [id number] 21:21:00 Test Item Value Reference Range Comments POC-GLUCOSE METER (BEAKER) 343 mg/dL 70-110 TESTED AT [address] (test dcfa=0001) [facility] [address] SCREEN, [id number] 18:52:00 Test Item Value Reference Range Comments TEST URINE (BEAKER) (test znis=967) Negative POCT-GLUCOSE [id number] 17:17:00 Test Item Value Reference Range Comments POC-GLUCOSE METER (BEAKER) 287 mg/dL 70-110 TESTED AT [facility] [address] [facility] (test ueko=8659) [facility] [address] [id number] 15:59:00 Test Item Value Reference Range Comments RPR SCREEN (BEAKER) (test gtid=004) Nonreactive Nonreactive POCT-GLUCOSE [id number] 15:07:00 Test Item Value Reference Range Comments POC-GLUCOSE METER (BEAKER) 323 mg/dL 70-110 TESTED AT [address] (test lgaq=8341) [place] [id number] T4, [id number] 13:11:00 Test Item Value Reference Range Comments FREE T4 (BEAKER) (test vlfp=938) 0.89 ng/dL 0.70-1.48 HIV-1 ANTIGEN WITH HIV-1/2 [id number] 13:11:00 Test Item Value Reference Range Comments HIV-1 ANTIGEN WITH HIV 1\\T\\2 ANTIBODY (2) Nonreactive Nonreactive (BEAKER) (test iukg=4720) RAPID DRUG SCREEN, [id number] 12:47:00 Test Item Value Reference Range Comments BARBITURATE URINE (BEAKER) (test zuvu=186) Negative Negative BENZODIAZEPINE SCREEN URINE (BEAKER) (test Negative Negative myeb=794) COCAINE (METAB.) SCREEN (BEAKER) (test sdos=5537) Negative Negative METHADONE SCREEN (BEAKER) (test uwra=3535) Negative Negative OPIATE SCREEN URINE (BEAKER) (test upqs=346) Negative Negative CANNABINOID SCREEN URINE (BEAKER) (test lhxy=561) Negative Negative AMPH/METHAMPH SCREEN (BEAKER) (test uxxw=1672) Negative Negative PHENCYCLIDINE SCREEN URINE (BEAKER) (test tfgg=521) Negative Negative OXYCODONE SCREEN URINE (BEAKER) (test tbhv=4979) Negative Negative DRUG CUTOFF CONC.Cocaine 300 ng/mL Cannabinoid 50 ng/mL Benzodiazepine 200 ng/mLBarbiturate 200 ng/ mLPhencyclidine 25 ng/mLOpiate 300 ng/mLMethadone 300 ng/mLAmphetamine/ 1000 ng/mL MethamphetamineOxycodone 300 ng/mLThis assay provides an unconfirmed qualitative test result for the clinical management of patients in emergency situations. Chain of custody not maintained. Some zkdc-rvj-yguykxd medications, as well as adulterants, may cause inaccurate results. Clinical correlation should be applied. A more comprehensive drug screen or confirmation of a detected drug may be performed upon request.POCT-GLUCOSE [id number] 12:37:00 Test Item Value Reference Range Comments POC-GLUCOSE METER (BEAKER) 292 mg/dL 70-110 TESTED AT [facility] [address] [facility] (test qoly=0855) [facility] [address] HEMOGLOBIN [id number] 12:35:00 Test Item Value Reference Range Comments HEMOGLOBIN A1C (BEAKER) (test ltba=120) 7.9 % 4.3-6.1 OSMOLALITY, [id number] 12:34:00 Test Item Value Reference Range Comments OSMOLALITY, SERUM (BEAKER) (test ejho=855) 310 mOsm/kg 275-295 C-REACTIVE [id number] 12:28:00 Test Item Value Reference Range Comments C-REACTIVE PROTEIN (BEAKER) (test vadf=274) 0.81 mg/dL 0.00-0.50 OSMOLALITY, [id number] 12:22:00 Test Item Value Reference Range Comments OSMOLALITY URINE (BEAKER) (test pjqn=946) 247 mOsm/kg 40-1,400 CBC W/PLT COUNT & AUTO [id number] 12:14:00 Test Item Value Reference Range Comments WHITE BLOOD CELL COUNT (BEAKER) (test jdmj=254) 15.1 K/ L 3.5-10.5 RED BLOOD CELL COUNT (BEAKER) (test gilb=020) 5.15 M/ L 3.93-5.22 HEMOGLOBIN (BEAKER) (test qczu=403) 14.1 GM/DL 11.2-15.7 HEMATOCRIT (BEAKER) (test svwu=022) 42.3 % 34.1-44.9 MEAN CORPUSCULAR VOLUME (BEAKER) (test bznm=911) 82.1 fL 79.4-94.8 MEAN CORPUSCULAR HEMOGLOBIN (BEAKER) (test 27.4 pg 25.6-32.2 mwol=896) MEAN CORPUSCULAR HEMOGLOBIN CONC (BEAKER) (test 33.3 GM/DL 32.2-35.5 qsah=091) RED CELL DISTRIBUTION WIDTH (BEAKER) (test 12.9 % 11.7-14.4 ughx=892) PLATELET COUNT (BEAKER) (test boyl=997) 278 K/CU MM 150-450 MEAN PLATELET VOLUME (BEAKER) (test bxok=521) 11.5 fL 9.4-12.3 NUCLEATED RED BLOOD CELLS (BEAKER) (test 0 /100 WBC 0-0 tqoy=159) NEUTROPHILS RELATIVE PERCENT (BEAKER) (test 87 % tswy=491) LYMPHOCYTES RELATIVE PERCENT (BEAKER) (test 10 % rcuv=341) MONOCYTES RELATIVE PERCENT (BEAKER) (test 3 % utoh=810) EOSINOPHILS RELATIVE PERCENT (BEAKER) (test 0 % kldx=733) BASOPHILS RELATIVE PERCENT (BEAKER) (test 0 % bxfz=790) NEUTROPHILS ABSOLUTE COUNT (BEAKER) (test 13.06 K/ L 1.56-6.13 qylh=106) LYMPHOCYTES ABSOLUTE COUNT (BEAKER) (test 1.51 K/ L 1.18-3.74 mzdh=878) MONOCYTES ABSOLUTE COUNT (BEAKER) (test 0.38 K/ L 0.24-0.36 nlfn=238) EOSINOPHILS ABSOLUTE COUNT (BEAKER) (test 0.00 K/ L 0.04-0.36 actv=793) BASOPHILS ABSOLUTE COUNT (BEAKER) (test 0.02 K/ L 0.01-0.08 ycxc=403) IMMATURE GRANULOCYTES-RELATIVE PERCENT (BEAKER) 1 % 0-1 (test egoz=5052) POCT-GLUCOSE [id number] 10:30:00 Test Item Value Reference Range Comments POC-GLUCOSE METER (BEAKER) 341 mg/dL 70-110 TESTED AT [address] (test pffk=2150) [facility] [id number] 06:17:00 Test Item Value Reference Range Comments PROLACTIN (BEAKER) (test kbhi=477) 23.34 ng/mL 5.18-26.53 POCT-GLUCOSE [id number] 05:55:00 Test Item Value Reference Range Comments POC-GLUCOSE METER (BEAKER) 285 mg/dL 70-110 TESTED AT [address] (test xubr=6701) [facility] [id number] MR, BRAIN, [id number] 02:25:00Pituitary protocolCr 0.6FINAL REPORT MRI brain with and without contrast Comparison: None. 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 Discussion: Multiplanar MR imaging of the brain and sella was provided [id number] IV gadolinium administration using T1, T2, FLAIR, [...] MDReport Verified Date/Time: 06/19/2018 02:25:15 Reading Location: [address] Body Reading Room TSH/FREE T4 IF [id number] 00:26:00 Test Item Value Reference Range Comments THYROID STIMULATING HORMONE (BEAKER) (test 0.41 uIU/mL 0.35-4.94 gngq=905) BASIC METABOLIC [id number] 00:07:00 Test Item Value Reference Range Comments SODIUM (BEAKER) (test 136 meq/L 136-145 eldo=970) POTASSIUM (BEAKER) (test 4.0 meq/L 3.5-5.1 vbnp=666) CHLORIDE (BEAKER) (test 103 meq/L 98-107 kutc=244) CO2 (BEAKER) (test 20 meq/L 22-29 mnqe=898) BLOOD UREA NITROGEN 11 mg/dL 7-21 (BEAKER) (test wbtv=884) CREATININE (BEAKER) (test 0.84 mg/dL 0.57-1.25 vebf=583) GLUCOSE RANDOM (BEAKER) 357 mg/dL 70-105 (test fslw=737) CALCIUM (BEAKER) (test 9.0 mg/dL 8.4-10.2 rrwl=265) EGFR (BEAKER) (test 72 mL/min/1.73 sq m ESTIMATED GFR IS NOT idly=8272) ACCURATE CREATININE CLEARANCE IN PREDICTING GLOMERULAR FILTRATION RATE. ESTIMATED GFR IS NOT APPLICABLE FOR DIALYSIS PATIENTS. URINALYSIS W/ REFLEX URINE [id number] 23:13:00 Test Item Value Reference Range Comments COLOR (BEAKER) (test wgzv=382) Yellow CLARITY (BEAKER) (test qjud=852) Clear SPECIFIC GRAVITY UA (BEAKER) (test dgky=549) 1.011 1.001-1.035 PH UA (BEAKER) (test bxvd=627) 5.0 5.0-8.0 PROTEIN UA (BEAKER) (test clfv=635) Negative Negative GLUCOSE UA (BEAKER) (test gmbg=669) >1000 mg/dL Negative KETONES UA (BEAKER) (test mion=694) 20 mg/dL Negative BILIRUBIN UA (BEAKER) (test sjmm=814) Negative Negative BLOOD UA (BEAKER) (test qfku=689) Negative Negative NITRITE UA (BEAKER) (test ugji=261) Negative Negative LEUKOCYTE ESTERASE UA (BEAKER) (test avkv=074) Negative Negative UROBILINOGEN UA (BEAKER) (test maqv=068) 0.2 mg/dL 0.2-1.0 RBC UA (BEAKER) (test kqrb=825) < /HPF WBC UA (BEAKER) (test bkks=204) < /HPF SQUAMOUS EPITHELIAL (BEAKER) (test mkem=373) < /HPF SOURCE(BEAKER) (test uxsn=4922)
--- OUTSIDE RECORDS SUMMARY | 2019-09-15 09:19 | XMS REPORT ---
[...] use of insulin Assessment Hypertension I10 Active Assessment Type 2 diabetes mellitus without E11.9 Active complication, without long-term current use of insulin Assessment Hypothyroidism E03.9 Active Problem Hypothyroidism E03.9 Active Medications Medication Code Code Instructions Start End Status Dosage System Date Novolin N [facility] [address]-03 100 UNIT/ML Active 10 units Subcutaneous Twice a day Losartan [facility] 18081491484 100-12.5 MG Active 1 tablet Potassium-HCTZ Orally Once a day MetFORMIN HCl ER ND 13976734921 750 MG Orally Active 1 tablet Once a day with evening meal Levothyroxine ND 01260706329 88 MCG Oral Active TAKE 1 Sodium TABLET BY MOUTH EVERY MORNING Hydrocortisone [facility] 24734887715 10 MG Orally Active 1 tablet every 12 hrs with food or milk Metformin HCl ND 17484451034 1000 MG Orally Aug 07, Active 1 tablet Once a day 2019 with a meal GlyBURIDE ND 49655736490 5 MG Active TAKE 2 TABLETS BY MOUTH TWICE A DAY WITH A MEAL Results Name Result Date Reference Range Unit Abnormality Flag HEMOGLOBIN A1C ----A1C 10.6 [id number] Summary Purpose eClinicalWorks Submission
[2019-09-15 10:52] LABS: Absolute Lymphocytes (CBC) 2.3 K/uL (0.7-4.9); Basophils % 1.4 % (0-1.3); Hematocrit 46.3 % (36.0-45.0); Lymphocytes % 21.4 % (15.3-44.8); MPV 9.9 fL (7.6-11.3); RBC Red Blood Cell Count 5.88 M/uL (3.86-4.86)
[2019-09-15 10:52] LABS: Urine Blood NEGATIVE (NEG); Urine Glucose NEGATIVE (NEG); Urine Protein NEGATIVE (NEG); Urine pH 5.5 (5.0-7.0)
[2019-09-15 11:07] LABS: ALT/SGPT 136 U/L (12-78); AST/SGOT 48 U/L (15-37); Albumin 3.6 g/dL (3.4-5.0); Alkaline Phosphatase 87 U/L (45-117); BUN Blood Urea Nitrogen 12 mg/dL (7-18); Bicarbonate 29 mmol/L (21-32); Bilirubin Direct 0.1 mg/dL (0-0.2); Bilirubin Total 0.5 mg/dL (0.2-1.0); Glucose Level 186 mg/dL (74-106); Lipase 147 U/L (73-393); Sodium Level 138 mmol/L (136-145)
--- NOTE | 2019-09-15 11:14 | RAD REPORT ---
EXAM DESCRIPTION: US - Abdomen Exam Limited - 09/15/2019 11:07 am CLINICAL HISTORY: RUQ Pain;Abd pain COMPARISON: Abdomen Exam Limited dated 07/12/2018 FINDINGS: The gallbladder demonstrates no gallstones. No pericholecystic fluid or gallbladder wall t hickening. The common bile duct is normal measuring 6 mm.. The liver demonstrates no findings of intrahepatic biliary dilatation. IMPRESSION: Unremarkable examination.
[2019-09-15] MEDS ORDERED: METHYLPREDNISOLONE 125 MG INJ ONE (11:38)
[2019-09-15] MEDS ORDERED: DIPHENHYDRAMINE 50 MG/ML VIAL ONE (11:38)
--- NOTE | 2019-09-15 11:57 | RAD REPORT ---
EXAM DESCRIPTION: CTAbdomen Pelvis W Contrast - 09/15/2019 11:50 am CLINICAL HISTORY: Abdominal pain. ABD PAIN COMPARISON: Abdomen Pelvis W Contrast dated 07/12/2018 TECHNIQUE: Biphasic CT imaging of the abdomen and pelvis was performed with 100 ml non-ionic IV cont rast. All CT scans are performed using dose optimization technique as appropriate and may include automated exposure control or mA/KV adjustment according to patient size. FINDINGS: The lung bases are clear. The liver demonstrates diffuse fatty infiltration. The spleen, pancreas, adrenal glands and kidneys a re within normal limits. No bowel obstruction, free air, free fluid or abscess. The appendix is normal. No evidence of signi ficant lymphadenopathy. No suspicious bony findings. IMPRESSION: No acute intra-abdominal or pelvic finding. Fatty liver.
--- NOTE | 2019-09-15 13:43 | ER ---
Nurse's Notes [facility] Name: Chantal Stout Age: 49 yrs Sex: Female : 1970 Arrival Date: 09/15/2019 Time: 09:18 Bed 6 Private MD: Diagnosis: Abdominal and pelvic pain Presentation: 09/15 09:48 Presenting complaint: Patient states: BP has been high past couple days, is nauseated iw and can't rest, pain under breast bone and right ribs. Transition of care: patient was not received from another setting of care. Onset of symptoms was September 13, 2019. Risk Assessment: Do you want to hurt yourself or someone else? Patient reports no desire to harm self or others. Initial Sepsis Screen: Does the patient meet any 2 criteria? No. Patient's initial sepsis screen is negative. Does the patient have a suspected source of infection? No. Patient's initial sepsis screen is negative. Care prior to arrival: None. 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 LMP N/A - iw Historical: - Allergies: 09:52 Bactrim; iw 09:52 Cephalexin; iw 09:52 Codeine; iw 09:52 Levaquin; iw 09:52 Sulfa (Sulfonamide Antibiotics); iw 09:52 Iodine; iw - Home Meds: 09:52 metformin 750 mg Oral Tb24 1 tab twice a day [Active]; losartan-hydrochlorothiazide iw 100-12.5 mg Oral tab 1 tab once daily [Active]; hydrocortisone 10 mg Oral tab 1 tab 2 times per day [Active]; glyburide 5 mg Oral tab 1 tab once daily [Active]; metformin 1,000 mg Oral tr24 1 tab once daily [Active]; levothyroxine 88 mcg oral tab once daily [Active]; insulin NPH human recomb 15 units subcutaneous [Active]; - PMHx: 09:52 Anemia; Asthma; Diabetes - NIDDM; Hypertension; Hypothyroidism; pituitary tumor- iw surgically removed Jun 24; - PSHx: 09:52 Tonsillectomy; D \T\ C; cervix; iw - Immunization history:: Adult Immunizations up to date. - Coronavirus screen:: The patient has NOT traveled to [place] in the past 14 days. Proceed with normal triage process as indicated. - Social history:: Smoking status: Patient/guardian denies using tobacco, the patient reports quitting approximately 16 years ago. - Ebola Screening: : Patient negative for fever greater than or equal to 101.5 degrees Fahrenheit, and additional compatible Ebola Virus Disease symptoms Patient denies exposure to infectious person Patient denies travel to an Ebola-affected area in the 21 days before illness onset No symptoms or risks identified at this time. Screenin:05 Abuse screen: Denies threats or abuse. Denies injuries from another. Nutritional ca1 screening: No deficits noted. Tuberculosis screening: No symptoms or risk factors identified. Fall Risk IV access (20 points). Assessment: 10:05 General: Appears in no apparent distress. comfortable, Behavior is calm, cooperative, ca1 appropriate for age. Pain: Complains of pain in right upper quadrant Pain radiates to right mid back Pain currently is 6 out of 10 on a pain scale. Pain began 2-3 days ago. Is intermittent. Neuro: Level of Consciousness is awake, alert, obeys commands, Oriented to person, place, time, situation, Appropriate for age. Cardiovascular: Heart tones S1 S2 present Capillary refill < 3 seconds Patient's skin is warm and dry. Respiratory: Airway is patent Respiratory effort is even, unlabored, Respiratory pattern is regular, symmetrical, Breath sounds are clear bilaterally. GI: Abdomen is round non-distended, Bowel sounds present X 4 quads. Abd is soft X 4 quads Abdomen is tender to palpation in anterior aspect of right lateral abdomen and right upper quadrant Reports nausea. : No signs and/or symptoms were reported regarding the genitourinary system. EENT: No signs and/or symptoms were reported regarding the EENT system. Derm: Skin is intact, is healthy with good turgor, Skin is pink, warm \T\ dry. Musculoskeletal: Circulation, motion, and sensation intact. Capillary refill < 3 seconds. 10:50 Reassessment: Ultrasound at bedside. ca1 11:08 Reassessment: Patient appears in no apparent distress at this time. Patient and/or ca1 family updated on plan of care and expected duration. Pain level reassessed. Patient is alert, oriented x 3, equal unlabored respirations, skin warm/dry/pink. 11:34 Reassessment: VO to pre-medicate pt with Solu-medrol 125mg IV and Benadryl 25mg IV for ca1 CT with IV contrast. 11:41 Reassessment: Pt to CT. ca1 11:55 Reassessment: Patient appears in no apparent distress at this time. Patient is alert, ca1 oriented x 3, equal unlabored respirations, skin warm/dry/pink. Pt back from CT. 12:57 Reassessment: Patient appears in no apparent distress at this time. Patient and/or ca1 family updated on plan of care and expected duration. Pain level reassessed. Patient is alert, oriented x 3, equal unlabored respirations, skin warm/dry/pink. 13:55 Reassessment: Patient appears in no apparent distress at this time. Patient and/or ca1 family updated on plan of care and expected duration. Pain level reassessed. Patient is alert, oriented x 3, equal unlabored respirations, skin warm/dry/pink. Vital Signs: 09:52 BP 159 / 107; Pulse 98; Resp 16; Temp 97.4; Pulse Ox 97% on R/A; Weight 134.26 kg; iw Height 5 ft. 4 in. (162.56 cm); Pain 6/10; 11:08 BP 125 / 81; Pulse 92; Resp 16; Pulse Ox 96% on R/A; ca1 11:30 BP 126 / 66; Pulse 92; Resp 16; Pulse Ox 96% ; sv 12:05 BP 142 / 103; Pulse 95; Resp 16 S; Pulse Ox 96% on R/A; ca1 12:38 BP 119 / 77; Pulse 81; Resp 18; Pulse Ox 95% ; sv 13:35 BP 140 / 91; Pulse 87; Resp 16 S; Pulse Ox 100% on R/A; ca1 09:52 Body Mass Index 50.81 (134.26 kg, 162.56 cm) iw ED Course: 09:18 Patient arrived in ED. rg4 09:49 Triage completed. iw 09:52 Arm band placed on. iw 10:03 Kirk Escudero MD is Attending Physician. kdr 10:04 Nereyda Lundberg, ALCIDES is Primary Nurse. ca1 10:05 Patient has correct armband on for positive identification. Bed in low position. Call ca1 light in reach. Side rails up X 1. Pulse ox on. NIBP on. Warm blanket given. 10:05 No provider procedures requiring assistance completed. ca1 10:46 Initial lab(s) drawn, by me, sent to lab. Inserted saline lock: 22 gauge in left upper ca1 arm, using aseptic technique. Blood collected. 11:05 US Abdomen Limited In Process Unspecified. EDMS 11:52 CT Abd/Pelvis - IV Contrast Only In Process Unspecified. EDMS 14:15 IV discontinued, intact, bleeding controlled, No redness/swelling at site. Pressure ca1 dressing applied. Administered Medications: 11:35 Drug: SOLU-Medrol 125 mg Route: IVP; Site: left upper arm; ca1 12:59 Follow up: Response: No adverse reaction ca1 11:39 Drug: Benadryl 25 mg Route: IVP; Site: left upper arm; ca1 12:58 Follow up: Response: No adverse reaction ca1 14:14 Not Given (Patient Refused): [place] 10 mg-325 mg 1 tabs PO once; RASS on ADMIN: Combtv4, ca1 Very Agttd3, Agttd2, Rstlss1, AlertClm0, Drwsy-1, Lt Sdtn-2, Mod Sdtn-3, Dp Sdtn-4, UnArsble-5 14:15 Not Given (Patient Refused): Robaxin 750 mg PO once; Total of two tablets x1 ca1 Outcome: 13:41 Discharge ordered by . kdr 14:15 Discharged to home ambulatory, with family. ca1 14:15 Condition: stable 14:15 Discharge instructions given to patient, Instructed on discharge instructions, follow up and referral plans. no drinking with medication, no driving heavy equipment, medication usage, Demonstrated understanding of instructions, follow-up care, medications, Prescriptions given X 2. 14:17 Patient left the ED. ca1 Signatures: Dispatcher [employer] EDMS Zuleima Ivory, RN Kirk Patel MD MD kdr Williams, Irene, RN RN iw Garcia, Rubi rg4 Nereyda Lundberg RN RN ca1 Corrections: (The following items were deleted from the chart) 11:39 11:35 SOLU-Medrol 125 mg IVP in right upper arm ca1 ca1
--- NOTE | 2019-09-15 13:43 | EDPHYS ---
Physician Documentation [facility] Name: Chantal Stout Age: 49 yrs Sex: Female : 1970 Arrival Date: 09/15/2019 Time: 09:18 Bed 6 Private MD: ED Physician Kirk Escudero HPI: 09/15 10:37 This 49 yrs old Female presents to ER via Ambulatory with complaints of High kdr Blood Pressure, Flank Pain. 10:37 The patient c/o pain to the RUQ and generalized flu symptoms for the past three days. kdr She has had this before many years ago but not nearly as severe as this episode. She had significant nausea this morning but no vomiting. She has soft stools secondary to her metformin. She denies any problems with urination.. Onset: The symptoms/episode began/occurred gradually, 3 day(s) ago. Severity of symptoms: At their worst the symptoms were moderate in the emergency department the symptoms are unchanged. The patient has experienced a previous episode, many years ago. The patient has not recently seen a physician. 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 LMP N/A - iw Historical: - Allergies: 09:52 Bactrim; iw 09:52 Cephalexin; iw 09:52 Codeine; iw 09:52 Levaquin; iw 09:52 Sulfa (Sulfonamide Antibiotics); iw 09:52 Iodine; iw - Home Meds: 09:52 metformin 750 mg Oral Tb24 1 tab twice a day [Active]; losartan-hydrochlorothiazide iw 100-12.5 mg Oral tab 1 tab once daily [Active]; hydrocortisone 10 mg Oral tab 1 tab 2 times per day [Active]; glyburide 5 mg Oral tab 1 tab once daily [Active]; metformin 1,000 mg Oral tr24 1 tab once daily [Active]; levothyroxine 88 mcg oral tab once daily [Active]; insulin NPH human recomb 15 units subcutaneous [Active]; - PMHx: 09:52 Anemia; Asthma; Diabetes - NIDDM; Hypertension; Hypothyroidism; pituitary tumor- iw surgically removed Jun 24; - PSHx: 09:52 Tonsillectomy; D \T\ C; cervix; iw - Immunization history:: Adult Immunizations up to date. - Coronavirus screen:: The patient has NOT traveled to [place] in the past 14 days. Proceed with normal triage process as indicated. - Social history:: Smoking status: Patient/guardian denies using tobacco, the patient reports quitting approximately 16 years ago. - Ebola Screening: : Patient negative for fever greater than or equal to 101.5 degrees Fahrenheit, and additional compatible Ebola Virus Disease symptoms Patient denies exposure to infectious person Patient denies travel to an Ebola-affected area in the 21 days before illness onset No symptoms or risks identified at this time. ROS: 16:49 Constitutional: Negative for fever, chills, and weight loss, Eyes: Negative for injury, kdr pain, redness, and discharge, ENT: Negative for injury, pain, and discharge, Neck: Negative for injury, pain, and swelling, Cardiovascular: Negative for chest pain, palpitations, and edema, Respiratory: Negative for shortness of breath, cough, wheezing, and pleuritic chest pain, Back: Negative for injury and pain, : Negative for injury, bleeding, discharge, and swelling, MS/Extremity: Negative for injury and deformity, Skin: Negative for injury, rash, and discoloration, Neuro: Negative for headache, weakness, numbness, tingling, and seizure activity. Psych: Negative for depression, anxiety, suicide ideation, homicidal ideation, and hallucinations, Allergy/Immunology: Negative for hives, rash, and allergies, Endocrine: Negative for neck swelling, polydipsia, polyuria, polyphagia, and marked weight changes, Hematologic/Lymphatic: Negative for swollen nodes, abnormal bleeding, and unusual bruising. 16:49 Abdomen/GI: Positive for abdominal pain, nausea, Negative for black/tarry stool, rectal pain. Exam: 16:49 Constitutional: This is a well developed, well nourished patient who is awake, alert, kdr and in no acute distress. Head/Face: Normocephalic, atraumatic. Eyes: Pupils equal round and reactive to light, extra-ocular motions intact. Lids and lashes normal. Conjunctiva and sclera are non-icteric and not injected. Cornea within normal limits. Periorbital areas with no swelling, redness, or edema. Neck: Trachea midline, no thyromegaly or masses palpated, and no cervical lymphadenopathy. Supple, full range of motion without nuchal rigidity, or vertebral point tenderness. No Meningismus. Chest/axilla: Normal chest wall appearance and motion. Nontender with no deformity. No lesions are appreciated. Cardiovascular: Regular rate and rhythm with a normal S1 and S2. No gallops, murmurs, or rubs. Normal PMI, no JVD. No pulse deficits. Respiratory: Lungs have equal breath sounds bilaterally, clear to auscultation and percussion. No rales, rhonchi or wheezes noted. No increased work of breathing, no retractions or nasal flaring. Back: No spinal tenderness. No costovertebral tenderness. Full range of motion. Skin: Warm, dry with normal turgor. Normal color with no rashes, no lesions, and no evidence of cellulitis. MS/ Extremity: Pulses equal, no cyanosis. Neurovascular intact. Full, normal range of motion. Neuro: Awake and alert, GCS 15, oriented to person, place, time, and situation. Cranial nerves II-XII grossly intact. Motor strength 5/5 in all extremities. Sensory grossly intact. Cerebellar exam normal. Normal gait. Psych: Awake, alert, with orientation to person, place and time. Behavior, mood, and affect are within normal limits. 16:49 Abdomen/GI: Inspection: obese Bowel sounds: active, Palpation: soft, mild abdominal tenderness, rebound tenderness, is not appreciated, Indicators: McBurney's point is not tender, Dwyer's sign is positive. Vital Signs: 09:52 BP 159 / 107; Pulse 98; Resp 16; Temp 97.4; Pulse Ox 97% on R/A; Weight 134.26 kg; iw Height 5 ft. 4 in. (162.56 cm); Pain 6/10; 11:08 BP 125 / 81; Pulse 92; Resp 16; Pulse Ox 96% on R/A; ca1 11:30 BP 126 / 66; Pulse 92; Resp 16; Pulse Ox 96% ; sv 12:05 BP 142 / 103; Pulse 95; Resp 16 S; Pulse Ox 96% on R/A; ca1 12:38 BP 119 / 77; Pulse 81; Resp 18; Pulse Ox 95% ; sv 13:35 BP 140 / 91; Pulse 87; Resp 16 S; Pulse Ox 100% on R/A; ca1 09:52 Body Mass Index 50.81 (134.26 kg, 162.56 cm) iw MDM: 13:41 Patient medically screened. kdr 16:49 Data reviewed: vital signs, nurses notes, lab test result(s), radiologic studies. kdr Counseling: I had a detailed discussion with the patient and/or guardian regarding: the historical points, exam findings, and any diagnostic results supporting the discharge/admit diagnosis, lab results, radiology results. 09/15 10:29 Order name: Basic Metabolic Panel; Complete Time: 13:08 ca1 09/15 10:29 Order name: CBC with Diff; Complete Time: 13: ca1 09/15 10:29 Order name: Creatinine for Radiology; Complete Time: 13: ca1 09/15 10:29 Order name: Hepatic Function; Complete Time: 13: ca1 09/15 10:29 Order name: Lipase; Complete Time: 13: ca1 09/15 10:29 Order name: Urine Dipstick--Ancillary (enter results); Complete Time: 13: bd 09/15 10:28 Order name: Urine Dipstick-Ancillary (obtain specimen); Complete Time: 10: ca1 09/15 10:29 Order name: Urine --Ancillary (enter results); Complete Time: 13: bd 09/15 10:37 Order name: CT Abd/Pelvis - IV Contrast Only; Complete Time: 13:33 kdr 09/15 10:37 Order name: US Abdomen Limited; Complete Time: 13: kdr 09/15 10:29 Order name: IV Saline Lock; Complete Time: 10:46 ca1 09/15 10:29 Order name: Labs collected and sent; Complete Time: 10:46 ca1 Administered Medications: 11:35 Drug: SOLU-Medrol 125 mg Route: IVP; Site: left upper arm; ca1 12:59 Follow up: Response: No adverse reaction ca1 11:39 Drug: Benadryl 25 mg Route: IVP; Site: left upper arm; ca1 12:58 Follow up: Response: No adverse reaction ca1 14:14 Not Given (Patient Refused): [place] 10 mg-325 mg 1 tabs PO once; RASS on ADMIN: Combtv4, ca1 Very Agttd3, Agttd2, Rstlss1, AlertClm0, Drwsy-1, Lt Sdtn-2, Mod Sdtn-3, Dp Sdtn-4, UnArsble-5 14:15 Not Given (Patient Refused): Robaxin 750 mg PO once; Total of two tablets x1 ca1 Disposition: 09/15/19 13:41 Discharged to Home. Impression: Abdominal and pelvic pain. - Condition is Stable. - Discharge Instructions: Musculoskeletal Pain, Abdominal Pain, Adult, [id number]. - Prescriptions for Robaxin 500 mg Oral Tablet - take 2 tablet by ORAL route every 6 hours As needed; 40 tablet. Tramadol 50 mg Oral Tablet - take 1 tablet by ORAL route every 8 hours as needed; 12 tablet. - Medication Reconciliation Form, Thank You Letter, Prescription Opioid Use form. - Follow up: Private Physician; When: 2 - 3 days; Reason: If symptoms return, Further diagnostic work-up, Recheck today's complaints, Continuance of care, Re-evaluation by your physician. - Problem is new. - Symptoms have improved. Signatures: Dispatcher [employer] EDMS Kirk Escudero MD MD kdr Ingrid Bernabe RN RN iw Nereyda Lundberg RN RN ca1 Corrections: (The following items were deleted from the chart) 14:17 13:41 09/15/2019 13:41 Discharged to Home. Impression: Abdominal and pelvic pain. ca1 Condition is Stable. Forms are Medication Reconciliation Form, Thank You Letter, Antibiotic Education, Prescription Opioid Use. Follow up: Private Physician; When: 2 - 3 days; Reason: If symptoms return, Further diagnostic work-up, Recheck today's complaints, Continuance of care, Re-evaluation by your physician. Problem is new. Symptoms have improved. kdr
[2019-09-15] MEDS ORDERED: HYDROCODONE/APAP 10/325 TAB ONE (14:15)
[2019-09-15] MEDS ORDERED: methocarbamoL 500 MG TAB ONE (14:15)
[2019-09-15 14:41] VITALS: TEMP 97.4
[2019-09-15 14:48] VITALS: BP 140/91; O2SAT 100
== END 2019-09-15 14:17 | disposition home or self-care (01) ==
LOC: ER 09:15
DX: R10.2 Pelvic and perineal pain (principal); I10 Essential (primary) hypertension; E11.9 Type 2 diabetes mellitus without complications; E03.9 Hypothyroidism, unspecified; J45.909 Unspecified asthma, uncomplicated; Z79.4 Long term (current) use of insulin; Z88.1 Allergy status to other antibiotic agents; Z88.2 Allergy status to sulfonamides; Z88.5 Allergy status to narcotic agent; Z88.8 Allergy status to other drugs, medicaments and biological substances
CPT/HCPCS: 85025; 80048; 36415; 81025; 80076; 81003; 83690; 74177; 76705; 96375; 96374; 99284; J1200; J2930

== ENCOUNTER 2019-10-30 16:51 | Emergency (ER) | payer BC ==
--- OUTSIDE RECORDS SUMMARY | 2019-10-30 16:54 | XMS REPORT ---
[...] Problem Type Condition Code Onset Dates Condition Statu s Problem Anxiety F41.9 Active Problem Hyperlipidemia E78.5 Active Problem Hypertension I10 Active Problem Dental abscess K04.7 Active Problem Seasonal allergic rhinitis due to J30.1 Active pollen Problem Essential hypertension I10 Activ e Problem Migraines G43.909 Active Problem Allergic rhinitis, unspecified J30.9 Active Problem Fatty liver K76.0 Active Problem Type 2 diabetes mellitus without E11.9 Active complication, without long-term current use of insulin Assessment Hypothyroidism E03.9 Active Assessment Type 2 diabetes mellitus without E11.9 Active complication, without long-term current use of insulin Assessment Essential hypertension I10 Activ e Problem Hypothyroidism E03.9 Active Medications Medication Code Code Instructions Start End Status Dosage System Date Date MetFORMIN HCl ER ND 72825148423 750 MG Orally Activ e 1 tablet Once a day with evening meal Levothyroxine ND 40823411768 88 MCG Oral Active TA KE 1 Sodium TABLET BY MOUTH EVERY MORNING GlyBURIDE ND 24433161482 5 MG Orally BID Active 2 tabs bid with meal Losartan ND 87995777337 100-12.5 MG Oct 10, Active 1 table t Potassium-HCTZ Orally Once a 2019 day Losartan ND 51315273661 50 MG Orally Active 1 tabl et Potassium Once a day Hydrocortisone ND 22236358926 10 MG Orally Active 1 tablet every 12 hrs with food or milk Amlodipine ND 30703652491 10 MG Orally Active 1 ta blet Besylate Once a day Results No Known Results Summary Purpose eClinicalWorks Submission
--- OUTSIDE RECORDS SUMMARY | 2019-10-30 16:54 | XMS REPORT ---
:1970 Author Organization [facility] t Address [address] [place] [address] [address]. [address] [place] [address] Care Team Providers Name Role Phone ROBERT GEORGE Unavailable Unavailable Clare DOBSON Unavailable Unavailable Problems This patient has no known problems. Allergies, Adverse Reactions, Alerts This patient has no known allergies or adverse reactions. Medications This patient has no known medications. Results Test Description Test Time Test Comments Text Results Atomic Results Result Comments TISSUE EXAM 2018-06-28 08:38:00 Surgical Pathology Re port Case: [id number] Authorizing Provider: Alex Hinds MD Collected: [id number] Ordering Location: [address] Received: [id number] [id number] Service Pathologist: Chon Andino MD Specimens: A) - Tumor, pit uitary tumor B) - Tumor, pitui tary tumor A.PITUITARY GLAND, 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 PITUITA RY GLAND, TRANSSPHENOIDAL HYPOPHYSECTO MY:NULL CELL ADENOMAENTRAPPED ADENOHYPOPH YSIS Signing Pathologist Direct Phone Vidhi e: [phone] s igned by Chon Andino MD on 06/28/2018 at 8: 38 AMImmunoperoxidase stains performed on the seco nd specimen show that the tumor has no staining fo r growth hormone, LH, FSH, TSH, prolactin, or ACTH . Immunoperoxidase stains for p53 confirm posit ivity of a rare tumor cell nucleus. The MIB-1 prol iferation index is less than 1%. 81123 x 2; 883 31; 46768; 04477 x 6; 35462Pqbqmfdnl adenoma A. Pi tuitary tumor; B. Pituitary tumorA. The specim en is received fresh for frozen section diagnosis and labeled "pituitary tumor" and consis ts of a single fragment of tariq-red soft tis mandy measuring 0.5 cm in greatest dimension submit valerie entirely for frozen section diagnosis, an d touch preps are performed. CG/ew B. Received fresh labeled "tumor", description "pituit vivi tumor" is a 2.0 x 1.0 x 0.3 cm aggregate of pi nk-tariq to hannah-white rubbery friable soft tissue. The specimen is entirely submitted in casset te B1. DB/plFROZEN SECTION DIAGNOSIS, PITUITARY TUMOR: ADENOMA EXTENDING INTO RESPIRATORY M UCOSA PER DR. Henleyformed on A and BThe interpretation of this case included the use o f immunohistochemistry or spec ial stains. Immunohistochemistry technic al testing was performed at [facility], Pathology Laboratory where i t was developed and its performance characterist ics were determined. It has not been cleared or a pproved by the U.S. Food and Drug Administration . The FDA has determined that such clearan ce or approval is not necessary. The test is used for clinical purposes. It should not be r egarded as investigational or for resea [facility]. This laboratory is certified under the [employer] Laboratory Improvement Amendments of 19 88 (CLIA-88) as qualified to perform high co mplexity clinical laboratory testing. POCT-GLUCOSE METER 2018-06-27 12:43:00 Test Item Value Reference Range Comments POC-GLUCOSE METER (BEAKER) (test 141 mg/dL 70-110 TESTED AT [facility] [address] [facility] [address] [place] code = 1538) [facility] [address] POCT-GLUCOSE [id number] 12:06:00 Test Item Value Reference Range Comments POC-GLUCOSE METER (BEAKER) 217 mg/dL 70-110 TESTE D AT [facility] [address] [place] [address] (test code = 1538) [facility] [address] BASIC METABOLIC [id number] 07:18:00 Test Item Value Reference Range Comments SODIUM (BEAKER) (test 139 meq/L 136-145 code = 381) POTASSIUM (BEAKER) (test 4.1 meq/L 3.5-5.1 code = 379) CHLORIDE (BEAKER) (test 105 meq/L 98-107 code = 382) CO2 (BEAKER) (test code = 28 meq/L 22-29 355) BLOOD UREA NITROGEN 11 mg/dL 7-21 (BEAKER) (test code = 354) CREATININE (BEAKER) (test 0.69 mg/dL 0.57-1.25 code = 358) GLUCOSE RANDOM (BEAKER) 163 mg/dL 70-105 (test code = 652) CALCIUM (BEAKER) (test 8.6 mg/dL 8.4-10.2 code = 697) EGFR (BEAKER) (test code 91 mL/min/1.73 sq m EST IMATED GFR IS NOT = 1092) ACCURATE CREA TININE CLEARANCE IN PRE DICTING GLOMERULAR FILTR ATION RATE. ESTIMATED GFR IS NOT APPLICABLE F OR DIALYSIS PATIENT S. CBC W/PLT COUNT & AUTO [id number] 06:49:00 Test Item Value Reference Range Comments WHITE BLOOD CELL COUNT (BEAKER) (test code = 8.7 K/ L 3.5 -10.5 775) RED BLOOD CELL COUNT (BEAKER) (test code = 761) 4.82 M/ L 3.93-5.22 HEMOGLOBIN (BEAKER) (test code = 410) 13.2 GM/DL 11.2-15.7 HEMATOCRIT (BEAKER) (test code = 411) 40.8 % 34.1-44.9 MEAN CORPUSCULAR VOLUME (BEAKER) (test code = 84.6 fL 79 .4-94.8 753) MEAN CORPUSCULAR HEMOGLOBIN (BEAKER) (test code 27.4 pg 25.6-32.2 = 751) MEAN CORPUSCULAR HEMOGLOBIN CONC (BEAKER) (test 32.4 GM/DL 32.2-35.5 code = 752) RED CELL DISTRIBUTION WIDTH (BEAKER) (test code 13.2 % 11.7-14.4 = 412) PLATELET COUNT (BEAKER) (test code = 756) 233 K/CU MM 150-45 0 MEAN PLATELET VOLUME (BEAKER) (test code = 754) 11.5 fL 9.4-12.3 NUCLEATED RED BLOOD CELLS (BEAKER) (test code = 0 /100 WBC 0-0 413) NEUTROPHILS RELATIVE PERCENT (BEAKER) (test code 65 % = 429) LYMPHOCYTES RELATIVE PERCENT (BEAKER) (test code 24 % = 430) MONOCYTES RELATIVE PERCENT (BEAKER) (test code = 8 % 431) EOSINOPHILS RELATIVE PERCENT (BEAKER) (test code 2 % = 432) BASOPHILS RELATIVE PERCENT (BEAKER) (test code = 0 % 437) NEUTROPHILS ABSOLUTE COUNT (BEAKER) (test code = 5.65 K/ L 1.56-6.13 670) LYMPHOCYTES ABSOLUTE COUNT (BEAKER) (test code = 2.07 K/ L 1.18-3.74 414) MONOCYTES ABSOLUTE COUNT (BEAKER) (test code = 0.70 K/ L 0 .24-0.36 415) EOSINOPHILS ABSOLUTE COUNT (BEAKER) (test code = 0.16 K/ L 0.04-0.36 416) BASOPHILS ABSOLUTE COUNT (BEAKER) (test code = 0.02 K/ L 0 .01-0.08 417) IMMATURE GRANULOCYTES-RELATIVE PERCENT (BEAKER) 1 % 0-1 (test code = 2801) BASIC METABOLIC [id number] 23:52:00 Test Item Value Reference Range Comments SODIUM (BEAKER) (test 139 meq/L 136-145 code = 381) POTASSIUM (BEAKER) (test 4.0 meq/L 3.5-5.1 Specime n slightly code = 379) hemolyzed CHLORIDE (BEAKER) (test 103 meq/L 98-107 code = 382) CO2 (BEAKER) (test code = 28 meq/L 22-29 355) BLOOD UREA NITROGEN 12 mg/dL 7-21 (BEAKER) (test code = 354) CREATININE (BEAKER) (test 0.72 mg/dL 0.57-1.25 Specim en slightly code = 358) hemolyzed GLUCOSE RANDOM (BEAKER) 193 mg/dL 70-105 (test code = 652) CALCIUM (BEAKER) (test 8.6 mg/dL 8.4-10.2 code = 697) EGFR (BEAKER) (test code 86 mL/min/1.73 sq m EST IMATED GFR IS NOT = 1092) ACCURATE CREA TININE CLEARANCE IN PRE DICTING GLOMERULAR FILTR ATION RATE. ESTIMATED GFR IS NOT APPLICABLE F OR DIALYSIS PATIENT S. SODIUM, RANDOM [id number] 23:49:00 Test Item Value Reference Range Comments SODIUM URINE (BEAKER) (test code = 243) < meq/L Reference Range: No NormalsCBC W/PLT COUNT & AUTO [id number] 23:35:00 Test Item Value Reference Range Comments WHITE BLOOD CELL COUNT (BEAKER) (test code = 9.7 K/ L 3.5 -10.5 775) RED BLOOD CELL COUNT (BEAKER) (test code = 761) 4.46 M/ L 3.93-5.22 HEMOGLOBIN (BEAKER) (test code = 410) 12.2 GM/DL 11.2-15.7 HEMATOCRIT (BEAKER) (test code = 411) 37.8 % 34.1-44.9 MEAN CORPUSCULAR VOLUME (BEAKER) (test code = 84.8 fL 79 .4-94.8 753) MEAN CORPUSCULAR HEMOGLOBIN (BEAKER) (test code 27.4 pg 25.6-32.2 = 751) MEAN CORPUSCULAR HEMOGLOBIN CONC (BEAKER) (test 32.3 GM/DL 32.2-35.5 code = 752) RED CELL DISTRIBUTION WIDTH (BEAKER) (test code 13.0 % 11.7-14.4 = 412) PLATELET COUNT (BEAKER) (test code = 756) 210 K/CU MM 150-45 0 MEAN PLATELET VOLUME (BEAKER) (test code = 754) 11.4 fL 9.4-12.3 NUCLEATED RED BLOOD CELLS (BEAKER) (test code = 0 /100 WBC 0-0 413) NEUTROPHILS RELATIVE PERCENT (BEAKER) (test code 61 % = 429) LYMPHOCYTES RELATIVE PERCENT (BEAKER) (test code 28 % = 430) MONOCYTES RELATIVE PERCENT (BEAKER) (test code = 8 % 431) EOSINOPHILS RELATIVE PERCENT (BEAKER) (test code 2 % = 432) BASOPHILS RELATIVE PERCENT (BEAKER) (test code = 0 % 437) NEUTROPHILS ABSOLUTE COUNT (BEAKER) (test code = 5.87 K/ L 1.56-6.13 670) LYMPHOCYTES ABSOLUTE COUNT (BEAKER) (test code = 2.72 K/ L 1.18-3.74 414) MONOCYTES ABSOLUTE COUNT (BEAKER) (test code = 0.80 K/ L 0 .24-0.36 415) EOSINOPHILS ABSOLUTE COUNT (BEAKER) (test code = 0.22 K/ L 0.04-0.36 416) BASOPHILS ABSOLUTE COUNT (BEAKER) (test code = 0.03 K/ L 0 .01-0.08 417) IMMATURE GRANULOCYTES-RELATIVE PERCENT (BEAKER) 1 % 0-1 (test code = 2801) CT, BRAIN, WITHOUT [id number] 22:57:00FINAL REPORT CT Head without contrast CLINICAL [...] head. 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 Air- fluid levels in the bilateral maxillary and ethmoid sinuses. There is packing material seen in the sphenoid sinus.There is no CT evidence of acute infarct . Ventricles are normal in size and configuration. Thereis no hydrocephalus, midline shift, or apparent mass effect. Basilar cisterns are patent. The skull i s intact. Mastoid air cells are clear. Intraorbital [...] Gamboa Verified Date/Time: 06/26/2018 22:57:28 Reading Location: [facility] -GLUCOSE [id number] 21:07:00 Test Item Value Reference Range Comments POC-GLUCOSE METER (BEAKER) 211 mg/dL 70-110 TESTE D AT [facility] [address] [facility] (test code = 1538) [facility] [address] BASIC METABOLIC [id number] 14:29:00 Test Item Value Reference Range Comments SODIUM (BEAKER) (test 137 meq/L 136-145 code = 381) POTASSIUM (BEAKER) (test 3.6 meq/L 3.5-5.1 code = 379) CHLORIDE (BEAKER) (test 100 meq/L 98-107 code = 382) CO2 (BEAKER) (test code = 32 meq/L 22-29 355) BLOOD UREA NITROGEN 12 mg/dL 7-21 (BEAKER) (test code = 354) CREATININE (BEAKER) (test 0.71 mg/dL 0.57-1.25 code = 358) GLUCOSE RANDOM (BEAKER) 182 mg/dL 70-105 (test code = 652) CALCIUM (BEAKER) (test 8.7 mg/dL 8.4-10.2 code = 697) EGFR (BEAKER) (test code 88 mL/min/1.73 sq m EST IMATED GFR IS NOT = 1092) ACCURATE CREA TININE CLEARANCE IN PRE DICTING GLOMERULAR FILTR ATION RATE. ESTIMATED GFR IS NOT APPLICABLE F OR DIALYSIS PATIENT S. CBC W/PLT COUNT & AUTO [id number] 14:25:00 Test Item Value Reference Range Comments WHITE BLOOD CELL COUNT (BEAKER) (test code = 12.3 K/ L 3.5 -10.5 775) RED BLOOD CELL COUNT (BEAKER) (test code = 761) 4.76 M/ L 3.93-5.22 HEMOGLOBIN (BEAKER) (test code = 410) 13.1 GM/DL 11.2-15.7 HEMATOCRIT (BEAKER) (test code = 411) 40.6 % 34.1-44.9 MEAN CORPUSCULAR VOLUME (BEAKER) (test code = 85.3 fL 79 .4-94.8 753) MEAN CORPUSCULAR HEMOGLOBIN (BEAKER) (test code 27.5 pg 25.6-32.2 = 751) MEAN CORPUSCULAR HEMOGLOBIN CONC (BEAKER) (test 32.3 GM/DL 32.2-35.5 code = 752) RED CELL DISTRIBUTION WIDTH (BEAKER) (test code 13.1 % 11.7-14.4 = 412) PLATELET COUNT (BEAKER) (test code = 756) 254 K/CU MM 150-45 0 MEAN PLATELET VOLUME (BEAKER) (test code = 754) 11.1 fL 9.4-12.3 NUCLEATED RED BLOOD CELLS (BEAKER) (test code = 0 /100 WBC 0-0 413) NEUTROPHILS RELATIVE PERCENT (BEAKER) (test code 68 % = 429) LYMPHOCYTES RELATIVE PERCENT (BEAKER) (test code 24 % = 430) MONOCYTES RELATIVE PERCENT (BEAKER) (test code = 6 % 431) EOSINOPHILS RELATIVE PERCENT (BEAKER) (test code 1 % = 432) BASOPHILS RELATIVE PERCENT (BEAKER) (test code = 0 % 437) NEUTROPHILS ABSOLUTE COUNT (BEAKER) (test code = 8.42 K/ L 1.56-6.13 670) LYMPHOCYTES ABSOLUTE COUNT (BEAKER) (test code = 2.90 K/ L 1.18-3.74 414) MONOCYTES ABSOLUTE COUNT (BEAKER) (test code = 0.79 K/ L 0 .24-0.36 415) EOSINOPHILS ABSOLUTE COUNT (BEAKER) (test code = 0.07 K/ L 0.04-0.36 416) BASOPHILS ABSOLUTE COUNT (BEAKER) (test code = 0.05 K/ L 0 .01-0.08 417) IMMATURE GRANULOCYTES-RELATIVE PERCENT (BEAKER) 1 % 0-1 (test code = 2801) POCT-GLUCOSE [id number] 13:38:00 Test Item Value Reference Range Comments POC-GLUCOSE METER (BEAKER) 219 mg/dL 70-110 TESTE D AT [address] (test code = 1538) [place] [address] POCT-GLUCOSE [id number] 12:34:00 Test Item Value Reference Range Comments POC-GLUCOSE METER (BEAKER) 193 mg/dL 70-110 TESTE D AT [address] (test code = 1538) [place] [address]30 POCT-GLUCOSE [id number] 16:17:00 Test Item Value Reference Range Comments POC-GLUCOSE METER (BEAKER) 244 mg/dL 70-110 TESTE D AT [address] (test code = 1538) [place] [address]30 POCT-GLUCOSE [id number] 12:08:00 Test Item Value Reference Range Comments POC-GLUCOSE METER (BEAKER) 229 mg/dL 70-110 TESTE D AT [address] (test code = 1538) [place] [address]30 POCT-GLUCOSE [id number] 08:27:00 Test Item Value Reference Range Comments POC-GLUCOSE METER (BEAKER) 280 mg/dL 70-110 TESTE D AT [address] (test code = 1538) [place] [address] OSMOLALITY, [id number] 05:16:00 Test Item Value Reference Range Comments OSMOLALITY URINE (BEAKER) (test code = 614) 340 mOsm/kg 40-1 ,400 SPECIFIC GRAVITY, [id number] 04:53:00 Test Item Value Reference Range Comments SPECIFIC GRAVITY UA (BEAKER) (test code = 468) 1.010 1 .001-1.035 POCT-GLUCOSE [id number] 22:29:00 Test Item Value Reference Range Comments POC-GLUCOSE METER (BEAKER) 257 mg/dL 70-110 TESTE D AT [address] (test code = 1538) [place] [address]30 BASIC METABOLIC [id number] 17:49:00 Test Item Value Reference Range Comments SODIUM (BEAKER) (test 137 meq/L 136-145 code = 381) POTASSIUM (BEAKER) (test 4.6 meq/L 3.5-5.1 code = 379) CHLORIDE (BEAKER) (test 102 meq/L 98-107 code = 382) CO2 (BEAKER) (test code = 26 meq/L 22-29 355) BLOOD UREA NITROGEN 14 mg/dL 7-21 (BEAKER) (test code = 354) CREATININE (BEAKER) (test 0.78 mg/dL 0.57-1.25 code = 358) GLUCOSE RANDOM (BEAKER) 246 mg/dL 70-105 (test code = 652) CALCIUM (BEAKER) (test 8.7 mg/dL 8.4-10.2 code = 697) EGFR (BEAKER) (test code 79 mL/min/1.73 sq m EST IMATED GFR IS NOT = 1092) ACCURATE CREA TININE CLEARANCE IN PRE DICTING GLOMERULAR FILTR ATION RATE. ESTIMATED GFR IS NOT APPLICABLE F OR DIALYSIS PATIENT S. POCT-GLUCOSE [id number] 17:02:00 Test Item Value Reference Range Comments POC-GLUCOSE METER (BEAKER) 235 mg/dL 70-110 TESTE D AT [address] (test code = 1538) [place] [address]30 POCT-GLUCOSE [id number] 12:06:00 Test Item Value Reference Range Comments POC-GLUCOSE METER (BEAKER) 249 mg/dL 70-110 TESTE D AT [facility] [address] [facility] (test code = 1538) [place] [address]30 POCT-GLUCOSE [id number] 09:40:00 Test Item Value Reference Range Comments POC-GLUCOSE METER (BEAKER) 278 mg/dL 70-110 TESTE D AT [facility] [address] [place] (test code = 1538) [place] [address]30 BASIC METABOLIC [id number] 06:14:00 Test Item Value Reference Range Comments SODIUM (BEAKER) (test 141 meq/L 136-145 code = 381) POTASSIUM (BEAKER) (test 4.1 meq/L 3.5-5.1 code = 379) CHLORIDE (BEAKER) (test 104 meq/L 98-107 code = 382) CO2 (BEAKER) (test code = 30 meq/L 22-29 355) BLOOD UREA NITROGEN 14 mg/dL 7-21 (BEAKER) (test code = 354) CREATININE (BEAKER) (test 0.70 mg/dL 0.57-1.25 code = 358) GLUCOSE RANDOM (BEAKER) 146 mg/dL 70-105 (test code = 652) CALCIUM (BEAKER) (test 9.4 mg/dL 8.4-10.2 code = 697) EGFR (BEAKER) (test code 89 mL/min/1.73 sq m EST IMATED GFR IS NOT = 1092) ACCURATE CREA TININE CLEARANCE IN PRE DICTING GLOMERULAR FILTR ATION RATE. ESTIMATED GFR IS NOT APPLICABLE F OR DIALYSIS PATIENT S. [id number] 06:03:00 Test Item Value Reference Range Comments PROTIME (BEAKER) (test code = 759) 13.8 seconds 11.7-14.7 INR (BEAKER) (test code = 370) 1.1 <=5.9 PARTIAL THROMBOPLASTIN TIME (BEAKER) (test code 32.0 seconds 22.5-36.0 = 760) RECOMMENDED COUMADIN/WARFARIN INR THERAPY RANGESSTANDARD DOSE: 2.0 - 3.0 Includes: PROPHYLAXIS forvenous thrombosis, systemic embolization; TREATMENT for venous thrombosis and/or pulmonary embolus.HIGH RISK: Target INR is 2.5-3.5 for patients with mechanical heart valves. SCREEN, [id number] 05:59:00 Test Item Value Reference Range Comments TEST URINE (BEAKER) (test code = 583) Negative POCT-GLUCOSE [id number] 05:46:00 Test Item Value Reference Range Comments POC-GLUCOSE METER (BEAKER) 140 mg/dL 70-110 TESTE D AT [facility] [address] (test code = 1538) [place] [address] CBC W/PLT COUNT & AUTO [id number] 05:46:00 Test Item Value Reference Range Comments WHITE BLOOD CELL COUNT (BEAKER) (test code = 9.6 K/ L 3.5 -10.5 775) RED BLOOD CELL COUNT (BEAKER) (test code = 761) 5.00 M/ L 3.93-5.22 HEMOGLOBIN (BEAKER) (test code = 410) 14.0 GM/DL 11.2-15.7 HEMATOCRIT (BEAKER) (test code = 411) 42.1 % 34.1-44.9 MEAN CORPUSCULAR VOLUME (BEAKER) (test code = 84.2 fL 79 .4-94.8 753) MEAN CORPUSCULAR HEMOGLOBIN (BEAKER) (test code 28.0 pg 25.6-32.2 = 751) MEAN CORPUSCULAR HEMOGLOBIN CONC (BEAKER) (test 33.3 GM/DL 32.2-35.5 code = 752) RED CELL DISTRIBUTION WIDTH (BEAKER) (test code 13.0 % 11.7-14.4 = 412) PLATELET COUNT (BEAKER) (test code = 756) 227 K/CU MM 150-45 0 MEAN PLATELET VOLUME (BEAKER) (test code = 754) 11.8 fL 9.4-12.3 NUCLEATED RED BLOOD CELLS (BEAKER) (test code = 0 /100 WBC 0-0 413) NEUTROPHILS RELATIVE PERCENT (BEAKER) (test code 52 % = 429) LYMPHOCYTES RELATIVE PERCENT (BEAKER) (test code 38 % = 430) MONOCYTES RELATIVE PERCENT (BEAKER) (test code = 6 % 431) EOSINOPHILS RELATIVE PERCENT (BEAKER) (test code 3 % = 432) BASOPHILS RELATIVE PERCENT (BEAKER) (test code = 1 % 437) NEUTROPHILS ABSOLUTE COUNT (BEAKER) (test code = 5.03 K/ L 1.56-6.13 670) LYMPHOCYTES ABSOLUTE COUNT (BEAKER) (test code = 3.62 K/ L 1.18-3.74 414) MONOCYTES ABSOLUTE COUNT (BEAKER) (test code = 0.62 K/ L 0 .24-0.36 415) EOSINOPHILS ABSOLUTE COUNT (BEAKER) (test code = 0.27 K/ L 0.04-0.36 416) BASOPHILS ABSOLUTE COUNT (BEAKER) (test code = 0.05 K/ L 0 .01-0.08 417) IMMATURE GRANULOCYTES-RELATIVE PERCENT (BEAKER) 1 % 0-1 (test code = 2801) POCT-GLUCOSE [id number] 21:27:00 Test Item Value Reference Range Comments POC-GLUCOSE METER (BEAKER) 223 mg/dL 70-110 TESTE D AT [address] (test code = 1538) [place] [address] POCT-GLUCOSE [id number] 17:26:00 Test Item Value Reference Range Comments POC-GLUCOSE METER (BEAKER) 223 mg/dL 70-110 TESTE D AT [address] (test code = 1538) [place] [address] BASIC METABOLIC [id number] 16:43:00 Test Item Value Reference Range Comments SODIUM (BEAKER) (test 139 meq/L 136-145 code = 381) POTASSIUM (BEAKER) (test 4.5 meq/L 3.5-5.1 Specime n slightly code = 379) hemolyzed CHLORIDE (BEAKER) (test 102 meq/L 98-107 code = 382) CO2 (BEAKER) (test code = 29 meq/L 22-29 355) BLOOD UREA NITROGEN 16 mg/dL 7-21 (BEAKER) (test code = 354) CREATININE (BEAKER) (test 0.76 mg/dL 0.57-1.25 Specim en slightly code = 358) hemolyzed GLUCOSE RANDOM (BEAKER) 217 mg/dL 70-105 (test code = 652) CALCIUM (BEAKER) (test 9.6 mg/dL 8.4-10.2 code = 697) EGFR (BEAKER) (test code 81 mL/min/1.73 sq m EST IMATED GFR IS NOT = 1092) ACCURATE CREA TININE CLEARANCE IN PRE DICTING GLOMERULAR FILTR ATION RATE. ESTIMATED GFR IS NOT APPLICABLE F OR DIALYSIS PATIENT S. POCT-GLUCOSE [id number] 09:06:00 Test Item Value Reference Range Comments POC-GLUCOSE METER (BEAKER) 265 mg/dL 70-110 TESTE D AT [address] (test code = 1538) [place] [address]30 POCT-GLUCOSE [id number] 00:22:00 Test Item Value Reference Range Comments POC-GLUCOSE METER (BEAKER) 210 mg/dL 70-110 TESTE D AT [address] (test code = 1538) [place] [address] POCT-GLUCOSE [id number] 20:27:00 Test Item Value Reference Range Comments POC-GLUCOSE METER (BEAKER) 235 mg/dL 70-110 TESTE D AT [address] (test code = 1538) [place] [address]30 POCT-GLUCOSE [id number] 17:10:00 Test Item Value Reference Range Comments POC-GLUCOSE METER (BEAKER) 264 mg/dL 70-110 TESTE D AT [address] (test code = 1538) [place] [address]30 POCT-GLUCOSE [id number] 16:00:00 Test Item Value Reference Range Comments POC-GLUCOSE METER (BEAKER) 242 mg/dL 70-110 TESTE D AT [address] (test code = 1538) [place] [address]30 POCT-GLUCOSE [id number] 08:54:00 Test Item Value Reference Range Comments POC-GLUCOSE METER (BEAKER) 224 mg/dL 70-110 TESTE D AT [address] (test code = 1538) [place] [address]30 POCT-GLUCOSE [id number] 21:30:00 Test Item Value Reference Range Comments POC-GLUCOSE METER (BEAKER) 254 mg/dL 70-110 TESTE D AT [address] (test code = 1538) [place] [address]30 POCT-GLUCOSE [id number] 17:23:00 Test Item Value Reference Range Comments POC-GLUCOSE METER (BEAKER) 193 mg/dL 70-110 TESTE D AT [address] (test code = 1538) [place] [address]30 POCT-GLUCOSE [id number] 11:53:00 Test Item Value Reference Range Comments POC-GLUCOSE METER (BEAKER) 179 mg/dL 70-110 TESTE D AT [address] (test code = 1538) [facility] [address] [id number] 10:15:00 Test Item Value Reference Range Comments CORTISOL, TOTAL (BEAKER) (test code = 2755) 4.7 ug/dL 3.7- 19.4 POCT-GLUCOSE [id number] 08:07:00 Test Item Value Reference Range Comments POC-GLUCOSE METER (BEAKER) 184 mg/dL 70-110 TESTE D AT [address] (test code = 1538) [facility] [address], BRAIN, WITHOUT [id number] 22:07:00FINAL REPORT CT Head without contrast CLINICAL [...] Gamboa Verified Date/Time: 06/20/2018 22:07:25 Reading Location: [facility] C013T Transitional Reading Room POCT-GLUCOSE [id number] 21:00:00 Test Item Value Reference Range Comments POC-GLUCOSE METER (BEAKER) 227 mg/dL 70-110 TESTE D AT [address] (test code = 1538) [place] [address] POCT-GLUCOSE [id number] 16:57:00 Test Item Value Reference Range Comments POC-GLUCOSE METER (BEAKER) 216 mg/dL 70-110 TESTE D AT [address] (test code = 1538) [place] [address]30 POCT-GLUCOSE [id number] 13:11:00 Test Item Value Reference Range Comments POC-GLUCOSE METER (BEAKER) 198 mg/dL 70-110 TESTE D AT [address] (test code = 1538) [place] [address]30 POCT-GLUCOSE [id number] 07:47:00 Test Item Value Reference Range Comments POC-GLUCOSE METER (BEAKER) 213 mg/dL 70-110 TESTE D AT [address] (test code = 1538) [place] [address] BASIC METABOLIC [id number] 06:57:00 Test Item Value Reference Range Comments SODIUM (BEAKER) (test 138 meq/L 136-145 code = 381) POTASSIUM (BEAKER) (test 3.9 meq/L 3.5-5.1 code = 379) CHLORIDE (BEAKER) (test 105 meq/L 98-107 code = 382) CO2 (BEAKER) (test code = 24 meq/L 22-29 355) BLOOD UREA NITROGEN 12 mg/dL 7-21 (BEAKER) (test code = 354) CREATININE (BEAKER) (test 0.73 mg/dL 0.57-1.25 code = 358) GLUCOSE RANDOM (BEAKER) 192 mg/dL 70-105 (test code = 652) CALCIUM (BEAKER) (test 8.8 mg/dL 8.4-10.2 code = 697) EGFR (BEAKER) (test code 85 mL/min/1.73 sq m EST IMATED GFR IS NOT = 1092) ACCURATE CREA TININE CLEARANCE IN PRE DICTING GLOMERULAR FILTR ATION RATE. ESTIMATED GFR IS NOT APPLICABLE F OR DIALYSIS PATIENT S. POCT-GLUCOSE [id number] 05:24:00 Test Item Value Reference Range Comments POC-GLUCOSE METER (BEAKER) 192 mg/dL 70-110 TESTE D AT [address] (test code = 1538) [place] [address], CTANGIO [id number] 01:03:00FINAL REPORT CLINICAL HISTORY: Stroke TECHNIQUE: Initially, [...] by NASCET criteria. Signed: Brian Gamboa Verified Date/Time: 06/20/2018 01:03:44 Reading Location: [address] Transitional Reading Room [facility], CAROTID, ANGIO 2018-06-20 01:03:00FINAL REPORT CLINICAL HISTORY: Stroke TECHNIQUE: Initially, [...] NASCET criteria. Signed: Brian Gamboa MDReport Verified Date/Time: 06/20/2018 01:03:44 Reading Location: [address] Transitional Reading Room POCT-GLUCOSE METER 2018-06-20 00:40:00 Test Item Value Reference Range Comments POC-GLUCOSE METER (BEAKER) 283 mg/dL 70-110 TESTE D AT [address] (test code = 1538) [place] [address] POCT-GLUCOSE [id number] 21:21:00 Test Item Value Reference Range Comments POC-GLUCOSE METER (BEAKER) 343 mg/dL 70-110 TESTE D AT [address] (test code = 1538) [place] [address] SCREEN, [id number] 18:52:00 Test Item Value Reference Range Comments TEST URINE (BEAKER) (test code = 583) Negative POCT-GLUCOSE [id number] 17:17:00 Test Item Value Reference Range Comments POC-GLUCOSE METER (BEAKER) 287 mg/dL 70-110 TESTE D AT [place] [id number] [facility] [place] (test code = 1538) [place] [address] [id number] 15:59:00 Test Item Value Reference Range Comments RPR SCREEN (BEAKER) (test code = 420) Nonreactive Nonreactiv e POCT-GLUCOSE [id number] 15:07:00 Test Item Value Reference Range Comments POC-GLUCOSE METER (BEAKER) 323 mg/dL 70-110 TESTE D AT [address] (test code = 1538) [place] [address] 030 T4, [id number] 13:11:00 Test Item Value Reference Range Comments FREE T4 (BEAKER) (test code = 655) 0.89 ng/dL 0.70-1.48 HIV-1 ANTIGEN WITH HIV-1/2 [id number] 13:11:00 Test Item Value Reference Range Comments HIV-1 ANTIGEN WITH HIV 1\\T\\2 ANTIBODY (2) Nonreactive Nonrea ctive (BEAKER) (test code = 2586) RAPID DRUG SCREEN, [id number] 12:47:00 Test Item Value Reference Range Comments BARBITURATE URINE (BEAKER) (test code = 725) Negative Neg ative BENZODIAZEPINE SCREEN URINE (BEAKER) (test code = Negative Negative 726) COCAINE (METAB.) SCREEN (BEAKER) (test code = 1164) Negative Negative METHADONE SCREEN (BEAKER) (test code = 1436) Negative Neg ative OPIATE SCREEN URINE (BEAKER) (test code = 734) Negative N egative CANNABINOID SCREEN URINE (BEAKER) (test code = 727) Negative Negative AMPH/METHAMPH SCREEN (BEAKER) (test code = 1438) Negative Negative PHENCYCLIDINE SCREEN URINE (BEAKER) (test code = Negative Negative 608) OXYCODONE SCREEN URINE (BEAKER) (test code = 2761) Negative Negative DRUG CUTOFF CONC.Cocaine 300 ng/mL Cannabinoid 50 ng/mL Benzodiazepine 200 ng/mLBarbiturate 200 ng/mLPhencyclidine 25 ng/mLOpiate 300 ng/mLMethadone 300 ng/mLAmphetamine/ 1000 ng/mL MethamphetamineOxycodone 300 ng/mLThis assay provides an unconfirmed qualitative test result for the clinical management of patients in emergency situations. Chain of custody not maintained. Some oabf-dvd-dbjbaqw medications, as well as adulterants, may cause inaccurate results. Clinical correlation should be applied. A more comprehensive drug screen or confirmation of a detected drug may be performed upon request. POCT-GLUCOSE [id number] 12:37:00 Test Item Value Reference Range Comments POC-GLUCOSE METER (BEAKER) 292 mg/dL 70-110 TESTE D AT [facility] [address] [facility] (test code = 1538) [facility] [address] HEMOGLOBIN [id number] 12:35:00 Test Item Value Reference Range Comments HEMOGLOBIN A1C (BEAKER) (test code = 368) 7.9 % 4.3-6. 1 OSMOLALITY, [id number] 12:34:00 Test Item Value Reference Range Comments OSMOLALITY, SERUM (BEAKER) (test code = 615) 310 mOsm/kg 275 -295 C-REACTIVE [id number] 12:28:00 Test Item Value Reference Range Comments C-REACTIVE PROTEIN (BEAKER) (test code = 676) 0.81 mg/dL 0. 00-0.50 OSMOLALITY, [id number] 12:22:00 Test Item Value Reference Range Comments OSMOLALITY URINE (BEAKER) (test code = 614) 247 mOsm/kg 40-1 ,400 CBC W/PLT COUNT & AUTO [id number] 12:14:00 Test Item Value Reference Range Comments WHITE BLOOD CELL COUNT (BEAKER) (test code = 15.1 K/ L 3.5 -10.5 775) RED BLOOD CELL COUNT (BEAKER) (test code = 761) 5.15 M/ L 3.93-5.22 HEMOGLOBIN (BEAKER) (test code = 410) 14.1 GM/DL 11.2-15.7 HEMATOCRIT (BEAKER) (test code = 411) 42.3 % 34.1-44.9 MEAN CORPUSCULAR VOLUME (BEAKER) (test code = 82.1 fL 79 .4-94.8 753) MEAN CORPUSCULAR HEMOGLOBIN (BEAKER) (test code 27.4 pg 25.6-32.2 = 751) MEAN CORPUSCULAR HEMOGLOBIN CONC (BEAKER) (test 33.3 GM/DL 32.2-35.5 code = 752) RED CELL DISTRIBUTION WIDTH (BEAKER) (test code 12.9 % 11.7-14.4 = 412) PLATELET COUNT (BEAKER) (test code = 756) 278 K/CU MM 150-45 0 MEAN PLATELET VOLUME (BEAKER) (test code = 754) 11.5 fL 9.4-12.3 NUCLEATED RED BLOOD CELLS (BEAKER) (test code = 0 /100 WBC 0-0 413) NEUTROPHILS RELATIVE PERCENT (BEAKER) (test code 87 % = 429) LYMPHOCYTES RELATIVE PERCENT (BEAKER) (test code 10 % = 430) MONOCYTES RELATIVE PERCENT (BEAKER) (test code = 3 % 431) EOSINOPHILS RELATIVE PERCENT (BEAKER) (test code 0 % = 432) BASOPHILS RELATIVE PERCENT (BEAKER) (test code = 0 % 437) NEUTROPHILS ABSOLUTE COUNT (BEAKER) (test code = 13.06 K/ L 1.56-6.13 670) LYMPHOCYTES ABSOLUTE COUNT (BEAKER) (test code = 1.51 K/ L 1.18-3.74 414) MONOCYTES ABSOLUTE COUNT (BEAKER) (test code = 0.38 K/ L 0 .24-0.36 415) EOSINOPHILS ABSOLUTE COUNT (BEAKER) (test code = 0.00 K/ L 0.04-0.36 416) BASOPHILS ABSOLUTE COUNT (BEAKER) (test code = 0.02 K/ L 0 .01-0.08 417) IMMATURE GRANULOCYTES-RELATIVE PERCENT (BEAKER) 1 % 0-1 (test code = 2801) POCT-GLUCOSE [id number] 10:30:00 Test Item Value Reference Range Comments POC-GLUCOSE METER (BEAKER) 341 mg/dL 70-110 TESTE D AT [facility] [address] [place] (test code = 1538) [place] [address]30 [id number] 06:17:00 Test Item Value Reference Range Comments PROLACTIN (BEAKER) (test code = 758) 23.34 ng/mL 5.18-26.53 POCT-GLUCOSE [id number] 05:55:00 Test Item Value Reference Range Comments POC-GLUCOSE METER (BEAKER) 285 mg/dL 70-110 TESTE D AT [address] (test code = 1538) [place] [address] MR, BRAIN, [id number] 02:25:00Pituitary protocolCr 0.6FINAL REPORT MRI brain with and without contrast Comparison: None. 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 Discussion: Multiplanar MR imaging of the brain and sella was provided [id number] IV gadolinium administration using T1, T2, FLAIR, FFE, and diffusion weighted sequences. Thin cut sagittal and coronal sella imaging was included. Examination of the brain demonstrates no parenchymal mass or mass effect. There is no extra- axial collection, hydrocephalus or herniation. There is no [...] (AP x CCx TR). The mass projects anteriorly-inferiorly into the sphenoid sinus. There is mass effect on the optic chiasm. There is no significant cavernous sinus extension. Meckel's cave is unremarkable bilaterally. Impressions: 2 x 2 x 2 cm lobulated sella/suprasellar mass compatible with a pituitary macroadenoma. Signed: Cassandra Mcdonald Verified Date/Time: 06/19/2018 02:25:15 Reading Location: [facility] C013Y CT Body Reading Room TSH/FREE T4 IF [id number] 00:26:00 Test Item Value Reference Range Comments THYROID STIMULATING HORMONE (BEAKER) (test code 0.41 uIU/mL 0.35-4.94 = 772) BASIC METABOLIC [id number] 00:07:00 Test Item Value Reference Range Comments SODIUM (BEAKER) (test 136 meq/L 136-145 code = 381) POTASSIUM (BEAKER) (test 4.0 meq/L 3.5-5.1 code = 379) CHLORIDE (BEAKER) (test 103 meq/L 98-107 code = 382) CO2 (BEAKER) (test code = 20 meq/L 22-29 355) BLOOD UREA NITROGEN 11 mg/dL 7-21 (BEAKER) (test code = 354) CREATININE (BEAKER) (test 0.84 mg/dL 0.57-1.25 code = 358) GLUCOSE RANDOM (BEAKER) 357 mg/dL 70-105 (test code = 652) CALCIUM (BEAKER) (test 9.0 mg/dL 8.4-10.2 code = 697) EGFR (BEAKER) (test code 72 mL/min/1.73 sq m EST IMATED GFR IS NOT = 1092) ACCURATE CREA TININE CLEARANCE IN PRE DICTING GLOMERULAR FILTR ATION RATE. ESTIMATED GFR IS NOT APPLICABLE F OR DIALYSIS PATIENT S. URINALYSIS W/ REFLEX URINE [id number] 23:13:00 Test Item Value Reference Range Comments COLOR (BEAKER) (test code = 470) Yellow CLARITY (BEAKER) (test code = 469) Clear SPECIFIC GRAVITY UA (BEAKER) (test code = 468) 1.011 1 .001-1.035 PH UA (BEAKER) (test code = 467) 5.0 5.0-8.0 PROTEIN UA (BEAKER) (test code = 464) Negative Negative GLUCOSE UA (BEAKER) (test code = 365) >1000 mg/dL Negative KETONES UA (BEAKER) (test code = 371) 20 mg/dL Negative BILIRUBIN UA (BEAKER) (test code = 462) Negative Negative BLOOD UA (BEAKER) (test code = 461) Negative Negative NITRITE UA (BEAKER) (test code = 465) Negative Negative LEUKOCYTE ESTERASE UA (BEAKER) (test code = 466) Negative Negative UROBILINOGEN UA (BEAKER) (test code = 463) 0.2 mg/dL 0.2-1 .0 RBC UA (BEAKER) (test code = 519) < /HPF WBC UA (BEAKER) (test code = 520) < /HPF SQUAMOUS EPITHELIAL (BEAKER) (test code = 516) < /HPF SOURCE(BEAKER) (test code = 2795)
--- OUTSIDE RECORDS SUMMARY | 2019-10-30 16:55 | XMS REPORT ---
:1970 Author Organization eClinicalWorks Care Team Providers Name Role Phone Linnea Logan Provider Role Unavailable Allergies No Known Allergies Problems Problem Type Condition Code Onset Dates Condition Statu s Problem Anxiety F41.9 Active Problem Hyperlipidemia E78.5 Active Problem Hypertension I10 Active Problem Hypothyroidism E03.9 Active Problem Dental abscess K04.7 Active Problem Seasonal allergic rhinitis due to J30.1 Active pollen Problem Essential hypertension I10 Activ e Problem Migraines G43.909 Active Problem Allergic rhinitis, unspecified J30.9 Active Problem Fatty liver K76.0 Active Problem Type 2 diabetes mellitus without E11.9 Active complication, without long-term current use of insulin Medications Medication Code Code Instructions Start End Status Dosage System Date Date Hydrochlorothiazide [facility] 00109530521 12.5 MG Orally October ctive 1 Once a day 2019 in the morning Losartan Potassium ND 74147274035 100 MG Orally October priyanka 1 tablet Once a day 2019 Losartan [facility] 35396611184 100-12.5 MG Inactive TAKE 1 Potassium-HCTZ TABLET BY MOUTH EVERY DAY Results No Known Results Summary Purpose eClinicalWorks Submission
--- OUTSIDE RECORDS SUMMARY | 2019-10-30 16:55 | XMS REPORT ---
[...] Start End Status Dosage System Date Date Novolin N [facility] [address]-96 100 UNIT/ML Active 10 u nits Subcutaneous Twice a day Losartan [facility] 28251688879 100-12.5 MG Active 1 table t Potassium-HCTZ Orally Once a day MetFORMIN HCl ER ND 16203840259 750 MG Orally Activ e 1 tablet Once a day with evening meal Levothyroxine ND 34454430406 88 MCG Oral Active TA KE 1 Sodium TABLET BY MOUTH EVERY MORNING Hydrocortisone [facility] 28559655642 10 MG Orally Active 1 tablet every 12 hrs with food or milk Metformin HCl ND 13742041153 1000 MG Orally Aug 07, Active 1 tablet Once a day 2019 with a meal GlyBURIDE ND 22434097304 5 MG Active TAKE 2 TABLETS BY MOUTH TWICE A DAY WITH A MEAL Results Name Result Date Reference Range Unit Abnormali ty Flag HEMOGLOBIN A1C ----A1C 10.6 [id number] Summary Purpose eClinicalWorks Submission
[2019-10-30 18:23] LABS: Absolute Lymphocytes (CBC) 2.9 K/uL (0.7-4.9); Hematocrit 45.3 % (36.0-45.0); Lymphocytes % 26.4 % (15.3-44.8); MPV 9.5 fL (7.6-11.3); RBC Red Blood Cell Count 5.66 M/uL (3.86-4.86)
[2019-10-30 18:46] LABS: Urine Bacteria NONE SEEN /HPF (<20); Urine Culture Reflex Order NOT NEEDED; Urine Mucus 1+ /HPF (NONE SEEN); Urine RBC NONE SEEN /HPF (NONE SEEN)
[2019-10-30 18:47] LABS: Albumin 3.5 g/dL (3.4-5.0); Bilirubin Direct 0.1 mg/dL (0-0.2); Bilirubin Total 0.5 mg/dL (0.2-1.0); Potassium 3.6 mmol/L (3.5-5.1); Protein, Total 7.8 g/dL (6.4-8.2)
[2019-10-30 18:47] LABS: Urine Blood NEGATIVE (NEG); Urine Glucose NEGATIVE (NEG); Urine Protein NEGATIVE (NEG)
--- NOTE | 2019-10-30 19:20 | RAD REPORT ---
EXAM DESCRIPTION: CT - Stone Protocol - 10/30/2019 7:12 pm CLINICAL HISTORY: Flank pain. ABD PAIN COMPARISON: Abdomen Pelvis W Contrast dated 09/15/2019 TECHNIQUE: Axial images were obtained without oral or IV contrast. Lack of contrast limits solid org an and vascular assessment. The [id number]-md-[id number] spans the entirety of the system partially obscuring uppermost abdomen and lung bases. Coronal reformatted images were obtained and reviewed. All CT scans are performed using dose optimization technique as appropriate and may include automated exposure control or mA/KV adjustment according to patient size. FINDINGS: The lower lung watkins are clear. Diffuse fatty liver is present. Spleen is normal size. The pancreas and adrenal glands are normal. No pathologic lymphadenopathy in the abdomen or pelvis. No urinary tract stones or obstructive uropathy. No bowel obstruction, free air, free fluid or abscess. Normal appendix noted. No significant bony abnormality. IMPRESSION: No urinary tract stones or obstructive uropathy. Diffuse fatty liver.
--- NOTE | 2019-10-30 20:36 | ER ---
Nurse's Notes [facility] Name: Chantal Stout Age: 49 yrs Sex: Female : 1970 Arrival Date: 10/30/2019 Time: 16:54 Bed 14 Private MD: Diagnosis: Dysuria;Malaise and fatigue Presentation: 10/29 17:05 Chief complaint: Patient states: left low back pain radiating to left flank that began aa5 yesterday, pt states "I get the pain when I pee", pt also c/o burning pain to genital area. Coronavirus screen: Proceed with normal triage. Ebola Screen: Patient negative for fever greater than or equal to 101.5 degrees Fahrenheit, and additional compatible Ebola Virus Disease symptoms. Initial Sepsis Screen: Does the patient meet any 2 criteria? No. Patient's initial sepsis screen is negative. Does the patient have a suspected source of infection? No. Patient's initial sepsis screen is negative. Risk Assessment: Do you want to hurt yourself or someone else? Patient reports no desire to harm self or others. Onset of symptoms was October 2019. 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 - Social history:: Smoking status: Patient denies any tobacco usage or history of. Screenin:52 Abuse screen: Denies threats or abuse. Denies injuries from another. Nutritional ca1 screening: No deficits noted. Tuberculosis screening: No symptoms or risk factors identified. Fall Risk IV access (20 points). Assessment: 17:52 General: Appears in no apparent distress. comfortable, Behavior is calm, cooperative, ca1 appropriate for age. Pain: Complains of pain in left low back and left mid back Pain currently is 8 out of 10 on a pain scale. Pain began 2-3 days ago. Neuro: Level of Consciousness is awake, alert, obeys commands, Oriented to person, place, time, situation, Appropriate for age. Cardiovascular: Heart tones S1 S2 present Capillary refill < 3 seconds Patient's skin is warm and dry. Respiratory: Airway is patent Respiratory effort is even, unlabored, Respiratory pattern is regular, symmetrical, Breath sounds are clear bilaterally. GI: Abdomen is round non-distended, Bowel sounds present X 4 quads. Abd is soft and non tender X 4 quads. : Reports burning with urination, urgency, urinary frequency. EENT: No signs and/or symptoms were reported regarding the EENT system. Derm: Skin is intact, is healthy with good turgor, Skin is pink, warm \\T\\ dry. Musculoskeletal: Circulation, motion, and sensation intact. Capillary refill < 3 seconds. 18:54 Reassessment: Patient appears in no apparent distress at this time. Patient and/or ca1 family updated on plan of care and expected duration. Pain level reassessed. Patient is alert, oriented x 3, equal unlabored respirations, skin warm/dry/pink. 19:11 Reassessment: PT to CT. ca1 19:50 Reassessment: Patient appears in no apparent distress at this time. Patient and/or ca1 family updated on plan of care and expected duration. Pain level reassessed. Patient is alert, oriented x 3, equal unlabored respirations, skin warm/dry/pink. 20:38 Reassessment: Patient appears in no apparent distress at this time. Patient is alert, ca1 oriented x 3, equal unlabored respirations, skin warm/dry/pink. Vital Signs: 17:52 BP 141 / 108; Pulse 98; Resp 17 S; Pulse Ox 100% on R/A; ca1 18:52 BP 154 / 111; Pulse 82; Resp 16 S; Pulse Ox 96% on R/A; ca1 19:19 BP 144 / 95; Pulse 86; Resp 16 S; Pulse Ox 97% on R/A; ca1 19:50 BP 119 / 74; Pulse 97; Resp 17 S; Pulse Ox 97% on R/A; ca1 20:38 BP 121 / 71; Pulse 93; Resp 17 S; Pulse Ox 98% on R/A; ca1 ED Course: 16:54 Patient arrived in ED. as 17:06 Triage completed. aa5 17:07 Arm band placed on. aa5 17:24 Kemar Tan PA is PHCP. [facility] 17:24 Kirk Escudero MD is Attending Physician. [facility] 17:34 Nereyda Lundberg, RN is Primary Nurse. ca1 17:52 Patient has correct armband on for positive identification. Placed in gown. Bed in low ca1 position. Call light in reach. Side rails up X 1. Pulse ox on. NIBP on. 17:52 No provider procedures requiring assistance completed. ca1 18:11 Initial lab(s) drawn, by me, sent to lab. Inserted saline lock: 22 gauge in left upper ca1 arm, using aseptic technique. Blood collected. 19:12 CT Stone Protocol In Process Unspecified. EDMS 20:51 IV discontinued, intact, bleeding controlled, No redness/swelling at site. Pressure ca1 dressing applied. Administered Medications: No medications were administered Outcome: 20:36 Discharge ordered by MD. [facility] 20:51 Discharged to home ambulatory. ca1 20:51 Condition: stable 20:51 Discharge instructions given to patient, Instructed on discharge instructions, follow up and referral plans. medication usage, Demonstrated understanding of instructions, follow-up care, medications, Prescriptions given X 1. 20:53 Patient left the ED. ca1 Signatures: Dispatcher [employer] EDMS Kemar Tan PA PA jmm Martinez, Amelia as Calderon, Audri RN RN [facility] Nereyda Lundberg, RN RN ca1
--- NOTE | 2019-10-30 20:36 | EDPHYS ---
Physician Documentation [facility] Name: Chantal Stout Age: 49 yrs Sex: Female : 1970 Arrival Date: 10/30/2019 Time: 16:54 Bed 14 Private MD: ED Physician Kirk Escudero HPI: 10/29 17:29 This 49 yrs old Female presents to ER via Wheelchair with complaints of High jmm Blood Pressure, Back Pain, Dizziness, Urinary Problem. 17:29 The patient presents with urinary symptoms, dysuria. Onset: The symptoms/episode jmm began/occurred gradually, 1 day(s) ago. Modifying factors: The symptoms are alleviated by nothing, the symptoms are aggravated by nothing. Associated signs and symptoms: Pertinent positives: flank pain. This is a 49 year old female with a history of asthma, DM, HTN, that presents to the ED with complaints of dysuria beginning yesterday. Today patient developed left flank pain along with generalized fatigue. 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 - Social history:: Smoking status: Patient denies any tobacco usage or history of. ROS: 17:29 Cardiovascular: Negative for chest pain, palpitations, and edema, Respiratory: Negative jmm for shortness of breath, cough, wheezing, and pleuritic chest pain. 17:29 Neuro: Negative for headache, weakness, numbness, tingling, and seizure. 17:29 Constitutional: Positive for fatigue. 17:29 Abdomen/GI: Positive for abdominal pain. 17:29 Back: Positive for flank pain. 17:29 : Positive for urinary symptoms. 17:29 All other systems are negative. Exam: 17:29 Constitutional: This is a well developed, well nourished patient who is awake, alert, jmm and in no acute distress. Head/Face: atraumatic. Eyes: EOMI, no conjunctival erythema appreciated ENT: Moist Mucus Membranes Neck: Trachea midline, Supple Chest/axilla: Normal chest wall appearance and motion. Cardiovascular: Regular rate and rhythm. No edema appreciated Respiratory: Normal respirations, no respiratory distress appreciated 17:29 Skin: General appearance color normal MS/ Extremity: Moves all extremities, no obvious deformities appreciated, no edema noted to the lower extremities Neuro: Awake and alert, normal gait Psych: Behavior is normal, Mood is normal, Patient is cooperative and pleasant 17:29 Abdomen/GI: Inspection: abdomen appears normal, Bowel sounds: normal, Palpation: soft, mild abdominal tenderness, in the suprapubic area. 17:29 Back: CVA tenderness, that is mild, is noted on the left. Vital Signs: 17:52 BP 141 / 108; Pulse 98; Resp 17 S; Pulse Ox 100% on R/A; ca1 18:52 BP 154 / 111; Pulse 82; Resp 16 S; Pulse Ox 96% on R/A; ca1 19:19 BP 144 / 95; Pulse 86; Resp 16 S; Pulse Ox 97% on R/A; ca1 19:50 BP 119 / 74; Pulse 97; Resp 17 S; Pulse Ox 97% on R/A; ca1 20:38 BP 121 / 71; Pulse 93; Resp 17 S; Pulse Ox 98% on R/A; ca1 MDM: 17:29 Patient medically screened. [facility] 10/29 17:40 Order name: Basic Metabolic Panel; Complete Time: 18:49 [facility] 10/29 17:40 Order name: CBC with Diff; Complete Time: 18:28 [facility] 10/29 17:40 Order name: Creatinine for Radiology; Complete Time: 18:49 [facility] 10/29 17:40 Order name: Hepatic Function; Complete Time: 18:49 [facility] 10/29 17:40 Order name: Lipase; Complete Time: 18:49 [facility] 10/29 17:40 Order name: Urine Culture [facility] 10/29 17:40 Order name: IV Saline Lock; Complete Time: 18:11 [facility] 10/29 17:40 Order name: Labs collected and sent; Complete Time: 18:11 [facility] 10/29 17:40 Order name: Urine Dipstick-Ancillary (obtain specimen); Complete Time: 18:11 [facility] 10/29 17:40 Order name: Urine Microscopic Only; Complete Time: 18:47 [facility] 10/29 18:26 Order name: Urine Dipstick--Ancillary (enter results); Complete Time: 18:49 eb 10/29 18:54 Order name: CT Stone Protocol; Complete Time: 19:29 [facility] Administered Medications: No medications were administered Disposition: 10/30 09:48 Co-signature as Attending Physician, Kirk Escudero MD I agree with the assessment and kdr plan of care. Disposition: 10/30/19 20:36 Discharged to Home. Impression: Dysuria, Malaise and fatigue. - Condition is Stable. - Discharge Instructions: Dysuria, Fatigue. - Prescriptions for Macrobid 100 mg Oral Capsule - take 1 capsule by ORAL route every 12 hours for 7 days; 14 capsule. - Medication Reconciliation Form, Thank You Letter, Antibiotic Education, Prescription Opioid Use form. - Follow up: Private Physician; When: 2 - 3 days; Reason: Recheck today's complaints, Continuance of care, Re-evaluation by your physician. Signatures: Dispatcher [employer] [facility] Kirk Escudero MD MD kdr Kemar Tan PA PA [facility] Brittany Kong, RN RN aa5 Nereyda Lundberg RN RN ca1 Corrections: (The following items were deleted from the chart) 10/29 18:55 18:48 Stone Protocol+CT.RAD.BRZ ordered. [facility] 20:53 20:36 10/30/2019 20:36 Discharged to Home. Impression: Dysuria; Malaise and fatigue. ca1 Condition is Stable. Forms are Medication Reconciliation Form, Thank You Letter, Antibiotic Education, Prescription Opioid Use. Follow up: Private Physician; When: 2 - 3 days; Reason: Recheck today's complaints, Continuance of care, Re-evaluation by your physician. [facility]
[2019-10-30 21:19] VITALS: BP 121/71; O2SAT 98
== END 2019-10-30 20:53 | disposition home or self-care (01) ==
LOC: ER 16:51
DX: R53.81 Other malaise (principal); R53.83 Other fatigue; I10 Essential (primary) hypertension; Z88.1 Allergy status to other antibiotic agents; Z88.2 Allergy status to sulfonamides; Z88.5 Allergy status to narcotic agent
CPT/HCPCS: 36415; 74176; 76377; 80048; 80076; 81003; 81015; 83690; 85025; 87086; 87088; 99284

== ENCOUNTER 2019-10-31 04:29 | Emergency (ER) | payer BC ==
--- OUTSIDE RECORDS SUMMARY | 2019-10-31 04:33 | XMS REPORT ---
:1970 Author Organization [facility] t Address [address] [place] [address] [address]. [address] [place] [address] Care Team Providers Name Role Phone ROBERT GEORGE Unavailable Unavailable Clare DOBSON Unavailable Unavailable Problems This patient has no known problems. Allergies, Adverse Reactions, Alerts This patient has no known allergies or adverse reactions. Medications This patient has no known medications. Results Test Description Test Time Test Comments Text Results Atomic Results Result Comments TISSUE EXAM 2018-06-28 08:38:00 Surgical Pathology Re port Case: [id number] Authorizing Provider: Alex Hinds MD Collected: [id number] Ordering Location: [address] Received: 018 0809 Service Pathologist: Chon Andino MD Specimens: A) - Tumor, pit uitary tumor B) - Tumor, pitui tary tumor A.PITUITARY GLAND, 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 PITUITA RY GLAND, TRANSSPHENOIDAL HYPOPHYSECTO MY:NULL CELL ADENOMAENTRAPPED ADENOHYPOPH YSIS Signing Pathologist Direct Phone Vidhi e: [phone] s igned by Chon Andino MD on 06/28/2018 at 8: 38 AMImmunoperoxidase stains performed on the seco nd specimen show that the tumor has no staining fo r growth hormone, LH, FSH, TSH, prolactin, or ACTH . Immunoperoxidase stains for p53 confirm posit ivity of a rare tumor cell nucleus. The MIB-1 prol iferation index is less than 1%. 67704 x 2; 883 31; 47382; 58250 x 6; 28138Ysoufvgzq adenoma A. Pi tuitary tumor; B. Pituitary [...] Immunohistochemistry technic al testing was performed at [facility], Pathology Laboratory where i t was developed and its performance characterist ics were determined. It has not been cleared or a pproved by the U.S. Food and Drug Administration . The FDA has determined that such clearan ce or approval is not necessary. The test is used for clinical purposes. It should not be r egarded as investigational or for resea [facility]. This laboratory is certified under the [employer] [place] Laboratory Improvement Amendments of 19 88 (CLIA-88) as qualified to perform high co mplexity clinical laboratory testing. POCT-GLUCOSE METER 2018-06-27 12:43:00 Test Item Value Reference Range Comments POC-GLUCOSE METER (BEAKER) (test 141 mg/dL 70-110 TESTED AT [facility] [address] [facility] code = 1538) [facility] [address] POCT-GLUCOSE [id number] 12:06:00 Test Item Value Reference Range Comments POC-GLUCOSE METER (BEAKER) 217 mg/dL 70-110 TESTE D AT [facility] [address] [place] [address] (test code = 1538) [facility] [address] BASIC METABOLIC [id number] 07:18:00 Test Item Value Reference Range Comments [...] PATIENT S. CBC W/PLT COUNT & AUTO [id number] 06:49:00 Test Item Value Reference Range Comments [...] 0-1 (test code = 2801) BASIC METABOLIC [id number] 23:52:00 Test Item Value Reference Range Comments [...] F OR DIALYSIS PATIENT S. SODIUM, RANDOM [id number] 23:49:00 Test Item Value Reference Range Comments SODIUM URINE (BEAKER) (test code = 243) < meq/L Reference Range: No NormalsCBC W/PLT COUNT & AUTO [id number] 23:35:00 Test Item Value Reference Range Comments [...] (test code = 2801) CT, BRAIN, WITHOUT [id number] 22:57:00FINAL REPORT CT Head without contrast CLINICAL [...] Gamboa Verified Date/Time: 06/26/2018 22:57:28 Reading Location: [facility] TransitionalReading [facility] -GLUCOSE [id number] 21:07:00 Test Item Value Reference Range Comments POC-GLUCOSE METER (BEAKER) 211 mg/dL 70-110 TESTE D AT [facility] [address] [facility] (test code = 1538) [facility] [address] BASIC METABOLIC [id number] 14:29:00 Test Item Value Reference Range Comments [...] PATIENT S. CBC W/PLT COUNT & AUTO [id number] 14:25:00 Test Item Value Reference Range Comments [...] % 0-1 (test code = 2801) POCT-GLUCOSE [id number] 13:38:00 Test Item Value Reference Range Comments POC-GLUCOSE METER (BEAKER) 219 mg/dL 70-110 TESTE D AT [address] (test code = 1538) [place] [address]30 POCT-GLUCOSE [id number] 12:34:00 Test Item Value Reference Range Comments POC-GLUCOSE METER (BEAKER) 193 mg/dL 70-110 TESTE D AT [address] (test code = 1538) [place] [address]30 POCT-GLUCOSE [id number] 16:17:00 Test Item Value Reference Range Comments POC-GLUCOSE METER (BEAKER) 244 mg/dL 70-110 TESTE D AT [address] (test code = 1538) [place] [address]30 POCT-GLUCOSE [id number] 12:08:00 Test Item Value Reference Range Comments POC-GLUCOSE METER (BEAKER) 229 mg/dL 70-110 TESTE D AT [address] (test code = 1538) [place] [address]30 POCT-GLUCOSE [id number] 08:27:00 Test Item Value Reference Range Comments POC-GLUCOSE METER (BEAKER) 280 mg/dL 70-110 TESTE D AT [address] (test code = 1538) [place] [address]30 OSMOLALITY, [id number] 05:16:00 Test Item Value Reference Range Comments OSMOLALITY URINE (BEAKER) (test code = 614) 340 mOsm/kg 40-1 ,400 SPECIFIC GRAVITY, [id number] 04:53:00 Test Item Value Reference Range Comments SPECIFIC GRAVITY UA (BEAKER) (test code = 468) 1.010 1 .001-1.035 POCT-GLUCOSE [id number] 22:29:00 Test Item Value Reference Range Comments POC-GLUCOSE METER (BEAKER) 257 mg/dL 70-110 TESTE D AT [address] (test code = 1538) [place] [address]30 BASIC METABOLIC [id number] 17:49:00 Test Item Value Reference Range Comments [...] APPLICABLE F OR DIALYSIS PATIENT S. POCT-GLUCOSE [id number] 17:02:00 Test Item Value Reference Range Comments POC-GLUCOSE METER (BEAKER) 235 mg/dL 70-110 TESTE D AT [address] (test code = 1538) [place] [address]30 POCT-GLUCOSE [id number] 12:06:00 Test Item Value Reference Range Comments POC-GLUCOSE METER (BEAKER) 249 mg/dL 70-110 TESTE D AT [facility] [address] [facility] (test code = 1538) [place] [address]30 POCT-GLUCOSE [id number] 09:40:00 Test Item Value Reference Range Comments POC-GLUCOSE METER (BEAKER) 278 mg/dL 70-110 TESTE D AT [facility] [address] [facility] (test code = 1538) [place] [address]30 BASIC METABOLIC [id number] 06:14:00 Test Item Value Reference Range Comments [...] NOT APPLICABLE F OR DIALYSIS PATIENT S. [id number] 06:03:00 Test Item Value Reference Range Comments [...] for patients with mechanical heart valves. SCREEN, [id number] 05:59:00 Test Item Value Reference Range Comments TEST URINE (BEAKER) (test code = 583) Negative POCT-GLUCOSE [id number] 05:46:00 Test Item Value Reference Range Comments POC-GLUCOSE METER (BEAKER) 140 mg/dL 70-110 TESTE D AT [facility] [address] (test code = 1538) [place] [address] CBC W/PLT COUNT & AUTO [id number] 05:46:00 Test Item Value Reference Range Comments [...] % 0-1 (test code = 2801) POCT-GLUCOSE [id number] 21:27:00 Test Item Value Reference Range Comments POC-GLUCOSE METER (BEAKER) 223 mg/dL 70-110 TESTE D AT [address] (test code = 1538) [place] [address]30 POCT-GLUCOSE [id number] 17:26:00 Test Item Value Reference Range Comments POC-GLUCOSE METER (BEAKER) 223 mg/dL 70-110 TESTE D AT [address] (test code = 1538) [place] [address]30 BASIC METABOLIC [id number] 16:43:00 Test Item Value Reference Range Comments [...] APPLICABLE F OR DIALYSIS PATIENT S. POCT-GLUCOSE [id number] 09:06:00 Test Item Value Reference Range Comments POC-GLUCOSE METER (BEAKER) 265 mg/dL 70-110 TESTE D AT [address] (test code = 1538) [place] [address]30 POCT-GLUCOSE [id number] 00:22:00 Test Item Value Reference Range Comments POC-GLUCOSE METER (BEAKER) 210 mg/dL 70-110 TESTE D AT [address] (test code = 1538) [place] [address]30 POCT-GLUCOSE [id number] 20:27:00 Test Item Value Reference Range Comments POC-GLUCOSE METER (BEAKER) 235 mg/dL 70-110 TESTE D AT [address] (test code = 1538) [place] [address]30 POCT-GLUCOSE [id number] 17:10:00 Test Item Value Reference Range Comments POC-GLUCOSE METER (BEAKER) 264 mg/dL 70-110 TESTE D AT [address] (test code = 1538) [place] [address]30 POCT-GLUCOSE [id number] 16:00:00 Test Item Value Reference Range Comments POC-GLUCOSE METER (BEAKER) 242 mg/dL 70-110 TESTE D AT [address] (test code = 1538) [place] [address]30 POCT-GLUCOSE [id number] 08:54:00 Test Item Value Reference Range Comments POC-GLUCOSE METER (BEAKER) 224 mg/dL 70-110 TESTE D AT [address] (test code = 1538) [place] [address]30 POCT-GLUCOSE [id number] 21:30:00 Test Item Value Reference Range Comments POC-GLUCOSE METER (BEAKER) 254 mg/dL 70-110 TESTE D AT [address] (test code = 1538) [place] [address]30 POCT-GLUCOSE [id number] 17:23:00 Test Item Value Reference Range Comments POC-GLUCOSE METER (BEAKER) 193 mg/dL 70-110 TESTE D AT [address] (test code = 1538) [place] [address]30 POCT-GLUCOSE [id number] 11:53:00 Test Item Value Reference Range Comments POC-GLUCOSE METER (BEAKER) 179 mg/dL 70-110 TESTE D AT [address] (test code = 1538) [facility] [address] [id number] 10:15:00 Test Item Value Reference Range Comments CORTISOL, TOTAL (BEAKER) (test code = 2755) 4.7 ug/dL 3.7- 19.4 POCT-GLUCOSE [id number] 08:07:00 Test Item Value Reference Range Comments POC-GLUCOSE METER (BEAKER) 184 mg/dL 70-110 TESTE D AT [address] (test code = 1538) [facility] [address], BRAIN, WITHOUT [id number] 22:07:00FINAL REPORT CT Head without contrast CLINICAL [...] [place]oa Verified Date/Time: 06/20/2018 22:07:25 Reading Location: [facility] C013T Transitional Reading Room POCT-GLUCOSE [id number] 21:00:00 Test Item Value Reference Range Comments POC-GLUCOSE METER (BEAKER) 227 mg/dL 70-110 TESTE D AT [address] (test code = 1538) [place] [address]30 POCT-GLUCOSE [id number] 16:57:00 Test Item Value Reference Range Comments POC-GLUCOSE METER (BEAKER) 216 mg/dL 70-110 TESTE D AT [address] (test code = 1538) [place] [address]30 POCT-GLUCOSE [id number] 13:11:00 Test Item Value Reference Range Comments POC-GLUCOSE METER (BEAKER) 198 mg/dL 70-110 TESTE D AT [address] (test code = 1538) [place] [address]30 POCT-GLUCOSE [id number] 07:47:00 Test Item Value Reference Range Comments POC-GLUCOSE METER (BEAKER) 213 mg/dL 70-110 TESTE D AT [address] (test code = 1538) [place] [address] BASIC METABOLIC [id number] 06:57:00 Test Item Value Reference Range Comments [...] APPLICABLE F OR DIALYSIS PATIENT S. POCT-GLUCOSE [id number] 05:24:00 Test Item Value Reference Range Comments POC-GLUCOSE METER (BEAKER) 192 mg/dL 70-110 TESTE D AT [address] (test code = 1538) [place] [address] [address], CTANGIO [id number] 01:03:00FINAL REPORT CLINICAL HISTORY: Stroke TECHNIQUE: Initially, [...] Gamboa Verified Date/Time: 06/20/2018 01:03:44 Reading Location: [address] Transitional Reading Room [facility], CAROTID, ANGIO 2018-06-20 01:03:00FINAL REPORT CLINICAL HISTORY: [...] MDReport Verified Date/Time: 06/20/2018 01:03:44 Reading Location: [address] Transitional Reading Room POCT-GLUCOSE METER 2018-06-20 00:40:00 Test Item Value Reference Range Comments POC-GLUCOSE METER (BEAKER) 283 mg/dL 70-110 TESTE D AT [address] (test code = 1538) [place] [address] POCT-GLUCOSE [id number] 21:21:00 Test Item Value Reference Range Comments POC-GLUCOSE METER (BEAKER) 343 mg/dL 70-110 TESTE D AT [address] (test code = 1538) [place] [address] SCREEN, [id number] 18:52:00 Test Item Value Reference Range Comments TEST URINE (BEAKER) (test code = 583) Negative POCT-GLUCOSE [id number] 17:17:00 Test Item Value Reference Range Comments POC-GLUCOSE METER (BEAKER) 287 mg/dL 70-110 TESTE D AT [place] [id number] [facility] (test code = 1538) [place] [address] [id number] 15:59:00 Test Item Value Reference Range Comments RPR SCREEN (BEAKER) (test code = 420) Nonreactive Nonreactiv e POCT-GLUCOSE [id number] 15:07:00 Test Item Value Reference Range Comments POC-GLUCOSE METER (BEAKER) 323 mg/dL 70-110 TESTE D AT [address] (test code = 1538) [place] [address]30 T4, [id number] 13:11:00 Test Item Value Reference Range Comments FREE T4 (BEAKER) (test code = 655) 0.89 ng/dL 0.70-1.48 HIV-1 ANTIGEN WITH HIV-1/2 [id number] 13:11:00 Test Item Value Reference Range Comments HIV-1 ANTIGEN WITH HIV 1\\T\\2 ANTIBODY (2) Nonreactive Nonrea ctive (BEAKER) (test code = 2586) RAPID DRUG SCREEN, [id number] 12:47:00 Test Item Value Reference Range Comments [...] situations. Chain of custody not maintained. Some rvcg-xyv-qntkxzu medications, as well as adulterants, may cause inaccurate results. Clinical correlation should be applied. A more comprehensive drug screen or confirmation of a detected drug may be performed upon request. POCT-GLUCOSE [id number] 12:37:00 Test Item Value Reference Range Comments POC-GLUCOSE METER (BEAKER) 292 mg/dL 70-110 TESTE D AT [facility] [address] [facility] (test code = 1538) [facility] [address] HEMOGLOBIN [id number] 12:35:00 Test Item Value Reference Range Comments HEMOGLOBIN A1C (BEAKER) (test code = 368) 7.9 % 4.3-6. 1 OSMOLALITY, [id number] 12:34:00 Test Item Value Reference Range Comments OSMOLALITY, SERUM (BEAKER) (test code = 615) 310 mOsm/kg 275 -295 C-REACTIVE [id number] 12:28:00 Test Item Value Reference Range Comments C-REACTIVE PROTEIN (BEAKER) (test code = 676) 0.81 mg/dL 0. 00-0.50 OSMOLALITY, [id number] 12:22:00 Test Item Value Reference Range Comments OSMOLALITY URINE (BEAKER) (test code = 614) 247 mOsm/kg 40-1 ,400 CBC W/PLT COUNT & AUTO [id number] 12:14:00 Test Item Value Reference Range Comments [...] % 0-1 (test code = 2801) POCT-GLUCOSE [id number] 10:30:00 Test Item Value Reference Range Comments POC-GLUCOSE METER (BEAKER) 341 mg/dL 70-110 TESTE D AT [facility] [address] [facility] (test code = 1538) [place] [address] [id number] 06:17:00 Test Item Value Reference Range Comments PROLACTIN (BEAKER) (test code = 758) 23.34 ng/mL 5.18-26.53 POCT-GLUCOSE [id number] 05:55:00 Test Item Value Reference Range Comments POC-GLUCOSE METER (BEAKER) 285 mg/dL 70-110 TESTE D AT [address] (test code = 1538) [place] [address] MR, BRAIN, [id number] 02:25:00Pituitary protocolCr 0.6FINAL REPORT MRI brain with and without contrast Comparison: None. 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 URINALYSIS W/ REFLEX URINE [id number] 23:13:00 Test Item Value Reference Range Comments [...]
--- OUTSIDE RECORDS SUMMARY | 2019-10-31 04:33 | XMS REPORT ---
[...] System Date Date MetFORMIN HCl ER ND 28773560709 750 MG Orally Activ e 1 tablet Once a day with evening meal Levothyroxine ND 55448053313 88 MCG Oral Active TA KE 1 Sodium TABLET BY MOUTH EVERY MORNING GlyBURIDE ND 86013951696 5 MG Orally BID Active 2 tabs bid with meal Losartan ND 46078846651 100-12.5 MG Oct 10, Active 1 table t Potassium-HCTZ Orally Once a 2019 day Losartan ND 34975831856 50 MG Orally Active 1 tabl et Potassium Once a day Hydrocortisone ND 54551642916 10 MG Orally Active 1 tablet every 12 hrs with food or milk Amlodipine ND 87674133918 10 MG Orally Active 1 ta blet Besylate Once a day Results No Known Results Summary Purpose eClinicalWorks Submission
--- OUTSIDE RECORDS SUMMARY | 2019-10-31 04:33 | XMS REPORT ---
[...] Status Dosage System Date Date Novolin N [facility] [address]-77 100 UNIT/ML Active 10 u nits Subcutaneous Twice a day Losartan [facility] 53670370000 100-12.5 MG Active 1 table t Potassium-HCTZ Orally Once a day MetFORMIN HCl ER ND 82998608321 750 MG Orally Activ e 1 tablet Once a day with evening meal Levothyroxine ND 24074429157 88 MCG Oral Active TA KE 1 Sodium TABLET BY MOUTH EVERY MORNING Hydrocortisone [facility] 64186789348 10 MG Orally Active 1 tablet every 12 hrs with food or milk Metformin HCl ND 13777667998 1000 MG Orally Aug 07, Active 1 tablet Once a day 2019 with a meal GlyBURIDE ND 13104026718 5 MG Active TAKE 2 TABLETS BY MOUTH TWICE A DAY WITH A MEAL Results Name Result Date Reference Range Unit Abnormali ty Flag HEMOGLOBIN A1C ----A1C 10.6 [id number] Summary Purpose eClinicalWorks Submission
--- OUTSIDE RECORDS SUMMARY | 2019-10-31 04:33 | XMS REPORT ---
[...] System Date Date Hydrochlorothiazide [facility] 96961556360 12.5 MG Orally October ctive 1 Once a day 2019 in the morning Losartan Potassium ND 63646118875 100 MG Orally October priyanka 1 tablet Once a day 2019 Losartan [facility] 37799910623 100-12.5 MG Inactive TAKE 1 Potassium-HCTZ TABLET BY MOUTH EVERY DAY Results No Known Results Summary Purpose eClinicalWorks Submission
[2019-10-31] MEDS ORDERED: NA CHLORIDE 0.9% 1,000 ML ONE (05:44)
[2019-10-31] MEDS ORDERED: CEFTRIAXONE/SWI 1gm 1 GM/10 ML SYR ONE (05:44)
[2019-10-31] MEDS ORDERED: MECLIZINE HCL 12.5 MG TAB ONE (05:44)
[2019-10-31 05:47] LABS: Absolute Lymphocytes (CBC) 2.1 K/uL (0.7-4.9); Basophils % 0.8 % (0-1.3); Lymphocytes % 24.2 % (15.3-44.8); MPV 9.9 fL (7.6-11.3); RBC Red Blood Cell Count 5.42 M/uL (3.86-4.86)
[2019-10-31 05:48] LABS: Protime INR 1.04
[2019-10-31] MEDS ORDERED: METOCLOPRAMIDE 10 MG/2mL INJ ONE (06:12)
[2019-10-31] MEDS ORDERED: INSULIN -REGULAR HUMAN 50 UNIT/0.5 ML ML ONE (06:17)
[2019-10-31 06:40] LABS: ALT/SGPT 103 U/L (12-78); Albumin 3.2 g/dL (3.4-5.0); Alkaline Phosphatase 78 U/L (45-117); BUN Blood Urea Nitrogen 10 mg/dL (7-18); Bicarbonate 27 mmol/L (21-32); Bilirubin Direct < 0.1 mg/dL (0-0.2); Bilirubin Total 0.6 mg/dL (0.2-1.0); Glucose Level 235 mg/dL (74-106); NT PRO-BNP 17 pg/mL (<125); Protein, Total 7.2 g/dL (6.4-8.2); Sodium Level 138 mmol/L (136-145); Troponin (Emerg Dept Use Only) < 0.02 ng/mL (0.0-0.045)
[2019-10-31 06:41] LABS: AST/SGOT 51 U/L (15-37); Magnesium 2.1 mg/dL (1.8-2.4); Potassium 3.9 mmol/L (3.5-5.1)
--- NOTE | 2019-10-31 06:49 | ER ---
Nurse's Notes [facility] Name: Chantal Stout Age: 49 yrs Sex: Female : 1970 Arrival Date: 10/31/2019 Time: 04:31 Bed 18 Private MD: Diagnosis: Cystitis, unspecified without hematuria Presentation: 10/30 04:47 Chief complaint: Patient states: I felt so dizzy when I woke up at 03:00 am and went to [facility] the bathroom, my blood pressure was 199/117. Coronavirus screen: Proceed with normal triage. Ebola Screen: No symptoms or risks identified at this time. Initial Sepsis Screen: Does the patient meet any 2 criteria? No. Patient's initial sepsis screen is negative. Does the patient have a suspected source of infection? No. Patient's initial sepsis screen is negative. Risk Assessment: Do you want to hurt yourself or someone else? Patient reports no desire to harm self or others. Onset of symptoms was October 31, 2019 at 03:00. Care prior to arrival: None. 04:47 Method Of Arrival: Wheelchair jv1 04:47 Acuity: NOÉ 3 jv1 IMPORT/EXPORT ANALYST: 07:15 unknown jv1 Historical: - Allergies: 04:55 Bactrim; jv1 04:55 Cephalexin; jv1 04:55 Iodine; jv1 04:55 Codeine; jv1 04:55 Levaquin; jv1 04:55 Sulfa (Sulfonamide Antibiotics); jv1 - Home Meds: 04:55 metformin 1,000 mg Oral tr24 1 tab once daily for Type 2 Diabetes Mellitus [Active]; jv1 metformin 750 mg Oral Tb24 1 tab once daily for Type 2 Diabetes Mellitus [Active]; levothyroxine 88 mcg tab once daily [Active]; insulin NPH human recomb 15 units subcutaneous twice a day [Active]; losartan 100 mg oral tab 1 tab once daily [Active]; hydrochlorothiazide 12.5 mg Oral cap 1 cap once daily [Active]; glyburide 5 mg Oral tab 1 tab 2 times per day [Active]; 06:03 hydrocortisone 10 mg Oral tab 1 tab 2 times per day [Active]; jv1 - PMHx: 04:55 Anemia; Diabetes - NIDDM; Asthma; Hypertension; Hypothyroidism; pituitary tumor- j surgically removed Jun 24; - Immunization history:: Adult Immunizations not up to date. - Social history:: Smoking status: Patient/guardian denies using. - Family history:: not pertinent. Screenin:35 Abuse screen: Denies threats or abuse. Nutritional screening: No deficits noted. jv1 Tuberculosis screening: No symptoms or risk factors identified. Fall Risk None identified. Assessment: 05:32 General: Appears in no apparent distress. uncomfortable, obese, well groomed, Behavior jv1 is calm, cooperative, appropriate for age. Pain: Denies pain. Neuro: Level of Consciousness is awake, alert, obeys commands, Oriented to person, place, time, situation, Appropriate for age Recruiting Specialist are equal bilaterally Moves all extremities. Speech is normal, Facial symmetry appears normal. Cardiovascular: Denies chest pain, Heart tones S1 S2 Capillary refill < 3 seconds Pulses are all present. Rhythm is regular. Respiratory: Airway is patent Respiratory effort is even, unlabored, Respiratory pattern is regular, symmetrical, Breath sounds are clear bilaterally. GI: Abdomen is round non-distended, obese, Bowel sounds present X 4 quads. Abd is soft and non tender X 4 quads. : Reports burning with urination. EENT: Tympanic membrane Ear canal clear on left ear and right ear. Derm: Skin is intact, is healthy with good turgor. Musculoskeletal: Capillary refill < 3 seconds, Range of motion: intact in all extremities. 05:58 Reassessment: provider in the room with pt. jv1 06:20 Reassessment: verified with provider the order for NPH 15 units. Provider said to hold jv1 it for now as he waits on the BMP results. He said he might to a sliding scale but he will put the orders in. 06:48 Reassessment: Patient appears in no apparent distress at this time. Patient and/or jv1 family updated on plan of care and expected duration. Pain level reassessed. Patient is alert, oriented x 3, equal unlabored respirations, skin warm/dry/pink. Patient states feeling better. Patient states symptoms have improved. Vital Signs: 04:47 BP 153 / 81; Pulse 84; Resp 18; Temp 97.5; Pulse Ox 98% on R/A; Weight 131.54 kg; jv1 Height 5 ft. 4 in. (162.56 cm); Pain 0/10; 06:41 BP 132 / 88; Pulse 87; Resp 18; Temp 98; Pulse Ox 99% ; Pain 0/10; jv1 04:47 Body Mass Index 49.78 (131.54 kg, 162.56 cm) jv1 ED Course: 04:31 Patient arrived in ED. ds1 04:44 Randolph Del Toro MD is Attending Physician. ma2 04:50 Triage completed. jv1 05:15 Patient has correct armband on for positive identification. Placed in gown. Bed in low jv1 position. Call light in reach. Side rails up X2. 05:32 Inserted saline lock: 22 gauge in right forearm, using aseptic technique. Blood jv1 collected. 05:35 Arm band placed on right wrist. Patient placed in an exam room, Patient notified of jv1 wait time. EKG completed in triage. Results shown to MD. 07:12 IV discontinued, intact, bleeding controlled, No redness/swelling at site. Pressure jv1 dressing applied. 07:13 No provider procedures requiring assistance completed. jv1 Administered Medications: 05:51 Drug: Rocephin 1 grams Route: IV; Rate: calculated rate; Site: right forearm; jv1 06:31 Follow up: Response: No adverse reaction; IV Status: Completed infusion jv1 05:51 Drug: Meclizine 50 mg Route: PO; jv1 06:30 Follow up: Response: No adverse reaction jv1 05:52 Drug: NS 0.9% 1000 ml Route: IV; Rate: 1 bolus; Site: right forearm; jv1 06:50 Follow up: Response: No adverse reaction; IV Status: Completed infusion; IV Intake: jv1 1000ml 06:25 Drug: Reglan 10 mg Route: IVP; Site: right forearm; jv1 07:00 Follow up: Response: No adverse reaction jv1 06:47 CANCELLED (na): Insulin NPH Human Recomb 15 units Sub-Q once ma2 06:54 Drug: Insulin Regular Human 5 units {Co-Signature: [email or web address] (Leonardo Caro RN).} Route: jv1 Sub-Q; Site: left lower abdomen; 07:17 Follow up: Response: No adverse reaction jv1 Intake: 06:50 IV: 1000ml; Total: 1000ml. jv1 Outcome: 06:48 Discharge ordered by . ma2 07:13 Discharged to home via wheelchair. jv1 07:13 Condition: stable 07:13 Discharge instructions given to patient, Instructed on discharge instructions, follow up and referral plans. medication usage, Demonstrated understanding of instructions, follow-up care, medications, Prescriptions given X 1. 07:16 Patient left the ED. jv1 Signatures: Mikayla Maguire ds1 Randolph Del Toro MD MD ma2 Ju Driver RN RN jv1 Leonardo Caro RN [email or web address] Corrections: (The following items were deleted from the chart) 06:47 06:44 Reassessment: verified with provider the order for NPH 15 units. Provider said to jv1 hold it for now as he waits on the BMP results. He said he might to a sliding scale but he will put the orders in. jv1 06:48 06:44 Reassessment: verified with provider the order for NPH 15 units. Provider said to jv1 hold it for now as he waits on the BMP results. He said he might to a sliding scale but he will put the orders in jv1
--- NOTE | 2019-10-31 06:49 | EDPHYS ---
Physician Documentation [facility] Name: Chantal Stout Age: 49 yrs Sex: Female : 1970 Arrival Date: 10/31/2019 Time: 04:31 Bed 18 Private MD: ED Physician Randolph Del Toro HPI: 10/30 05:23 This 49 yrs old Female presents to ER via Wheelchair with complaints of High ma2 Blood Pressure, spinning episode that is positional . 05:23 The patient has elevated blood pressure and discovered this at [address], at home. Onset: The symptoms/episode began/occurred gradually, 1 day(s) ago. Associated signs and symptoms: Pertinent negatives: dyspnea, nausea, visual changes. Severity of symptoms: At its worst the blood pressure was moderate, in the emergency department the blood pressure is unchanged. The patient has not experienced similar symptoms in the past. 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 jv1 Historical: - Allergies: 04:55 Bactrim; jv1 04:55 Cephalexin; jv1 04:55 Iodine; jv1 04:55 Codeine; jv1 04:55 Levaquin; jv1 04:55 Sulfa (Sulfonamide Antibiotics); jv1 - Home Meds: 04:55 metformin 1,000 mg Oral tr24 1 tab once daily for Type 2 Diabetes Mellitus [Active]; jv1 metformin 750 mg Oral Tb24 1 tab once daily for Type 2 Diabetes Mellitus [Active]; levothyroxine 88 mcg tab once daily [Active]; insulin NPH human recomb 15 units subcutaneous twice a day [Active]; losartan 100 mg oral tab 1 tab once daily [Active]; hydrochlorothiazide 12.5 mg Oral cap 1 cap once daily [Active]; glyburide 5 mg Oral tab 1 tab 2 times per day [Active]; 06:03 hydrocortisone 10 mg Oral tab 1 tab 2 times per day [Active]; jv1 - PMHx: 04:55 Anemia; Diabetes - NIDDM; Asthma; Hypertension; Hypothyroidism; pituitary tumor- jv1 surgically removed Jun 24; - Immunization history:: Adult Immunizations not up to date. - Social history:: Smoking status: Patient/guardian denies using. - Family history:: not pertinent. ROS: 05:23 Constitutional: Negative for fever, chills, and weight loss. ma2 05:23 All other systems are negative. Exam: 05:23 Constitutional: This is a well developed, well nourished patient who is awake, alert, ma2 and in no acute distress. Head/Face: Normocephalic, atraumatic. Eyes: Pupils equal round and reactive to light, extra-ocular motions intact. Lids and lashes normal. Conjunctiva and sclera are non-icteric and not injected. Cornea within normal limits. Periorbital areas with no swelling, redness, or edema. ENT: Nares patent. No nasal discharge, no septal abnormalities noted. Tympanic membranes are normal and external auditory canals are clear. Oropharynx with no redness, swelling, or masses, exudates, or evidence of obstruction, uvula midline. Mucous membranes moist. Neck: Trachea midline, no thyromegaly or masses palpated, and no cervical lymphadenopathy. Supple, full range of motion without nuchal rigidity, or vertebral point tenderness. No Meningismus. Chest/axilla: Normal chest wall appearance and motion. Nontender with no deformity. No lesions are appreciated. Cardiovascular: Regular rate and rhythm with a normal S1 and S2. No gallops, murmurs, or rubs. Normal PMI, no JVD. No pulse deficits. Respiratory: Lungs have equal breath sounds bilaterally, clear to auscultation and percussion. No rales, rhonchi or wheezes noted. No increased work of breathing, no retractions or nasal flaring. Abdomen/GI: Soft, non-tender, with normal bowel sounds. No distension or tympany. No guarding or rebound. No evidence of tenderness throughout. Skin: Warm, dry with normal turgor. Normal color with no rashes, no lesions, and no evidence of cellulitis. MS/ Extremity: Pulses equal, no cyanosis. Neurovascular intact. Full, normal range of motion. Neuro: Awake and alert, GCS 15, oriented to person, place, time, and situation. Cranial nerves II-XII grossly intact. Motor strength 5/5 in all extremities. Sensory grossly intact. Cerebellar exam normal. Normal gait. Vital Signs: 04:47 BP 153 / 81; Pulse 84; Resp 18; Temp 97.5; Pulse Ox 98% on R/A; Weight 131.54 kg; jv1 Height 5 ft. 4 in. (162.56 cm); Pain 0/10; 06:41 BP 132 / 88; Pulse 87; Resp 18; Temp 98; Pulse Ox 99% ; Pain 0/10; jv1 04:47 Body Mass Index 49.78 (131.54 kg, 162.56 cm) jv1 MDM: 04:44 Patient medically screened. ma2 05:23 Differential diagnosis: was here with UTI last night did not fill her prescription. ma2 Data reviewed: vital signs, nurses notes. Counseling: I had a detailed discussion with the patient and/or guardian regarding: the historical points, exam findings, and any diagnostic results supporting the discharge/admit diagnosis, the presence of at least one elevated blood pressure reading (>120/80) during this emergency department visit. Response to treatment: the patient's symptoms have markedly improved after treatment. 10/30 04:45 Order name: Basic Metabolic Panel; Complete Time: 06:46 ma10/30 04:45 Order name: CBC with Diff; Complete Time: 06:29 10/30 04:45 Order name: LFT's; Complete Time: 06:46 ma10/30 04:45 Order name: Magnesium; Complete Time: 06:46 ma10/30 04:45 Order name: NT PRO-BNP; Complete Time: 06:46 10/30 04:45 Order name: PT-INR; Complete Time: 06:29 10/30 04:45 Order name: Troponin (emerg Dept Use Only); Complete Time: 06:46 ma10/30 04:45 Order name: EKG; Complete Time: 04:46 10/30 04:45 Order name: Cardiac monitoring; Complete Time: 05:31 ma10/30 04:45 Order name: EKG - Nurse/Tech; Complete Time: 05:31 ma10/30 04:45 Order name: IV Saline Lock; Complete Time: 05:31 10/30 04:45 Order name: Labs collected and sent; Complete Time: 05:31 10/30 04:45 Order name: O2 Per Protocol; Complete Time: 05:31 ma10/30 04:45 Order name: O2 Sat Monitoring; Complete Time: 05:31 ma2 Administered Medications: 05:51 Drug: Rocephin 1 grams Route: IV; Rate: calculated rate; Site: right forearm; jv1 06:31 Follow up: Response: No adverse reaction; IV Status: Completed infusion jv1 05:51 Drug: Meclizine 50 mg Route: PO; jv1 06:30 Follow up: Response: No adverse reaction jv1 05:52 Drug: NS 0.9% 1000 ml Route: IV; Rate: 1 bolus; Site: right forearm; jv1 06:50 Follow up: Response: No adverse reaction; IV Status: Completed infusion; IV Intake: jv1 1000ml 06:25 Drug: Reglan 10 mg Route: IVP; Site: right forearm; jv1 07:00 Follow up: Response: No adverse reaction jv1 06:47 CANCELLED (na): Insulin NPH Human Recomb 15 units Sub-Q once ma2 06:54 Drug: Insulin Regular Human 5 units {Co-Signature: [email or web address] (Leonardo Caro RN).} Route: jv1 Sub-Q; Site: left lower abdomen; 07:17 Follow up: Response: No adverse reaction jv1 Disposition: 10/31/19 06:48 Discharged to Home. Impression: Cystitis, unspecified without hematuria. - Condition is Stable. - Discharge Instructions: Urinary Tract Infection, Adult, Vertigo, [id number]. - Prescriptions for Meclizine 25 mg Oral Tablet - take 1 tablet by ORAL route every 8 hours As needed; 30 tablet. - Medication Reconciliation Form, Thank You Letter, Antibiotic Education, Prescription Opioid Use form. - Follow up: Private Physician; When: Tomorrow; Reason: Continuance of care. Signatures: Dispatcher [employer] EDMS Randolph Del Toro MD MD ma2 Ju Driver RN RN jv1 Leonardo Caro RN [email or web address] Corrections: (The following items were deleted from the chart) 06:47 06:04 Insulin NPH Human Recomb 15 units Sub-Q once ordered. jv1 ma2 07:16 06:48 10/31/2019 06:48 Discharged to Home. Impression: Cystitis, unspecified without jv1 hematuria. Condition is Stable. Prescriptions for Meclizine 25 mg Oral Tablet - take 1 tablet by ORAL route every 8 hours As needed; 30 tablet. and Forms are Medication Reconciliation Form, Thank You Letter, Antibiotic Education, Prescription Opioid Use. Follow up: Private Physician; When: Tomorrow; Reason: Continuance of care. ma2
[2019-10-31 07:24] VITALS: BP 132/88; TEMP 98; O2SAT 99
--- NOTE | 2019-10-31 14:34 | EKG ---
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
== END 2019-10-31 07:16 | disposition home or self-care (01) ==
LOC: ER 04:29
DX: N30.90 Cystitis, unspecified without hematuria (principal); I10 Essential (primary) hypertension; E11.9 Type 2 diabetes mellitus without complications; E03.9 Hypothyroidism, unspecified; J45.909 Unspecified asthma, uncomplicated; Z79.4 Long term (current) use of insulin; Z88.1 Allergy status to other antibiotic agents; Z88.2 Allergy status to sulfonamides; Z88.5 Allergy status to narcotic agent; Z91.048 Other nonmedicinal substance allergy status
CPT/HCPCS: 96365; 93005; 85025; 80048; 36415; 83735; 85610; 80076; 84484; 83880; 96375; 96372; 99284; J2765; J0696; J7030; J8597

== ENCOUNTER 2019-11-14 12:19 | Emergency (ER) | payer BC ==
--- OUTSIDE RECORDS SUMMARY | 2019-11-14 12:23 | XMS REPORT ---
:1970 Author Organization [facility] t Address [address] [place] [address] [address] [place] [address] Care Team Providers Name Role Phone ROBERT GEORGE Unavailable Unavailable HEBERTHORACIOMagaly AnoopJenni Unavailable Unavailable Problems Condition Condition Condition Status Onset Resolution Last Treatin g Comments Name Details Category Date Date Treatment Clinician Date Anxiety Anxiety Problem Active Essential Essential Problem Active hypertensio hypertensio n n Hypothyroid Hypothyroid Problem Active ism ism Hyperlipide Hyperlipide Problem Active jean paul jean paul Allergic Allergic Problem Active rhinitis, rhinitis, unspecified unspecified Migraines Migraines Problem Active 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diabetes diabetes mellitus mellitus without without complicatio complicatio n, without n, without long-term long-term current use current use of insulin of insulin Seasonal Seasonal Problem Active allergic allergic rhinitis rhinitis due to due to pollen pollen Fatty liver Fatty liver Problem Active Dental Dental Problem Active abscess abscess Vaginal Vaginal Problem Active joseph joseph Allergies, Adverse Reactions, Alerts Allergy Allergy Status Severity Reaction(s) Onset Inactive Treating C omments Name Type Date Date Clinician statin Adverse Active throat swelling Reaction clindamycin Adverse Active swelling Reaction vancomycin Adverse Active face swelling, Reaction fever Jardiance Adverse Active severe anxiety Reaction Iodine Adverse Active increases BS to Reaction 400's,skin blisters Azithromyci Adverse Active decreased n Reaction B/P,palpitation s Lisinopril Adverse Active cough Reaction Fenofibrate Adverse Active face swelling Reaction Bactrim Adverse Active face swelling Reaction Levaquin Adverse Active hallucinations Reaction Medications Ordered Filled Start Stop Current Ordering Indication Dosage Frequency Signature Comments Components Medication Medication Date Date Medication? Clinician (SIG) Name Name Levothyroxi Levothyroxi Yes Linnea 1 tablet ne Sodium ne Sodium [place] in the morning on an empty stomach Encounters Start End Encounter Admission Attending Care Care Encounter Date/Time Date/Time Type Type Clinicians Facility Department ID 2019-11-10 2019-11-10 [facility] [id number] 10:08:00 10:08:00 [facility] 2019-11-06 2019-11-06 [facility] [id number] 08:00:00 08:00:00 [facility] 2019-10-30 2019-10-30 [facility] [id number] 15:58:00 15:58:00 [facility] 2019-10-27 2019-10-27 [facility] [id number] 11:16:00 11:16:00 [facility] 2019-08-07 2019-08-07 [facility] [id number] 08:40:00 08:40:00 [facility] 2019-05-01 2019-05-01 [facility] [id number] 09:40:00 09:40:00 [facility] 2019-01-30 2019-01-30 [facility] [id number] 08:40:00 08:40:00 [facility] 2018-10-27 2018-10-27 [facility] [id number] 06:29:00 06:29:00 [facility] 2018-10-22 2018-10-22 [facility] [id number] 13:00:00 13:00:00 [facility] 2018-07-30 2018-07-30 [facility] [id number] 13:30:00 13:30:00 [facility] 2018-07-25 2018-07-25 [facility] [id number] 19:48:00 19:48:00 [facility] 2018-03-12 2018-03-12 [facility] [id number] 13:41:00 13:41:00 [facility] 2018-02-27 2018-02-27 [facility] [id number] 14:46:00 14:46:00 [facility] 2018-02-20 2018-02-20 [facility] [id number] 08:30:00 08:30:00 [facility] 2018-02-12 2018-02-12 Outpatient [facility] 1 [id number] 10:45:00 10:45:00 [facility] 2018-01-21 2018-01-21 Outpatient [facility] 1 [id number] 09:00:00 09:00:00 [facility] Results Test Description Test Time Test Comments Text Results Atomic Results Result Comments TISSUE EXAM 2018-06-28 08:38:00 Surgical Pathology Re port Case: [id number] Authorizing Provider: Alex Hinds MD Collected: [id number] Ordering Location: [address] Received: 09 Service Pathologist: Chon Andino MD Specimens: A) - Tumor, pit uitary tumor B) - Tumor, pitui tary tumor A.PITUITARY GLAND, 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 PITUITA RY GLAND, TRANSSPHENOIDAL HYPOPHYSECTO MY:NULL CELL ADENOMAENTRAPPED ADENOHYPOPH YSIS Signing Pathologist Direct Phone Vidhi e: [phone] s igned by Chon Andino MD on 06/28/2018 at 8: 38 AMImmunoperoxidase stains performed on the seco nd specimen show that the tumor has no staining fo r growth hormone, LH, FSH, TSH, prolactin, or ACTH . Immunoperoxidase stains for p53 confirm posit ivity of a rare tumor cell nucleus. The MIB-1 prol iferation index is less than 1%. 80800 x 2; 883 31; 72310; 24657 x 6; 03320Vykehozal adenoma A. Pi tuitary tumor; B. Pituitary [...] Immunohistochemistry technic al testing was performed at [facility], Pathology Laboratory where i t was developed and its performance characterist ics were determined. It has not been cleared or a pproved by the U.S. Food and Drug Administration . The FDA has determined that such clearan ce or approval is not necessary. The test is used for clinical purposes. It should not be r egarded as investigational or for resea [facility]. This laboratory is certified under the [employer] [place] Laboratory Improvement Amendments of 19 88 (CLIA-88) as qualified to perform high co mplexity clinical laboratory testing. POCT-GLUCOSE METER 2018-06-27 12:43:00 Test Item Value Reference Range Comments POC-GLUCOSE METER (BEAKER) (test 141 mg/dL 70-110 TESTED AT [address] code = 1538) [facility] [address] POCT-GLUCOSE [id number] 12:06:00 Test Item Value Reference Range Comments POC-GLUCOSE METER (BEAKER) 217 mg/dL 70-110 TESTE D AT [address] (test code = 1538) [facility] [address] BASIC METABOLIC [id number] 07:18:00 Test Item Value Reference Range Comments [...] PATIENT S. CBC W/PLT COUNT & AUTO [id number] 06:49:00 Test Item Value Reference Range Comments [...] (BEAKER) 1 % 0-1 (test code = 2808) BASIC METABOLIC [id number] 23:52:00 Test Item Value Reference Range Comments [...] F OR DIALYSIS PATIENT S. SODIUM, RANDOM [id number] 23:49:00 Test Item Value Reference Range Comments SODIUM URINE (BEAKER) (test code = 243) < meq/L Reference Range: No NormalsCBC W/PLT COUNT & AUTO [id number] 23:35:00 Test Item Value Reference Range Comments [...] (test code = 2801) CT, BRAIN, WITHOUT [id number] 22:57:00FINAL REPORT CT Head without contrast CLINICAL [...] [place] Verified Date/Time: 06/26/2018 22:57:28 Reading Location: [address] TransitionalReading Room -GLUCOSE [id number] 21:07:00 Test Item Value Reference Range Comments POC-GLUCOSE METER (BEAKER) 211 mg/dL 70-110 TESTE D AT [facility] [address] [facility] (test code = 1538) [facility] [address] BASIC METABOLIC [id number] 14:29:00 Test Item Value Reference Range Comments [...] PATIENT S. CBC W/PLT COUNT & AUTO [id number] 14:25:00 Test Item Value Reference Range Comments [...] % 0-1 (test code = 2801) POCT-GLUCOSE [id number] 13:38:00 Test Item Value Reference Range Comments POC-GLUCOSE METER (BEAKER) 219 mg/dL 70-110 TESTE D AT [address] (test code = 1538) [place] [address]30 POCT-GLUCOSE [id number] 12:34:00 Test Item Value Reference Range Comments POC-GLUCOSE METER (BEAKER) 193 mg/dL 70-110 TESTE D AT [address] (test code = 1538) [place] [address]30 POCT-GLUCOSE [id number] 16:17:00 Test Item Value Reference Range Comments POC-GLUCOSE METER (BEAKER) 244 mg/dL 70-110 TESTE D AT [address] (test code = 1538) [place] [address]30 POCT-GLUCOSE [id number] 12:08:00 Test Item Value Reference Range Comments POC-GLUCOSE METER (BEAKER) 229 mg/dL 70-110 TESTE D AT [address] (test code = 1538) [place] [address]30 POCT-GLUCOSE [id number] 08:27:00 Test Item Value Reference Range Comments POC-GLUCOSE METER (BEAKER) 280 mg/dL 70-110 TESTE D AT [address] (test code = 1538) [place] [address]30 OSMOLALITY, [id number] 05:16:00 Test Item Value Reference Range Comments OSMOLALITY URINE (BEAKER) (test code = 614) 340 mOsm/kg 40-1 ,400 SPECIFIC GRAVITY, [id number] 04:53:00 Test Item Value Reference Range Comments SPECIFIC GRAVITY UA (BEAKER) (test code = 468) 1.010 1 .001-1.035 POCT-GLUCOSE [id number] 22:29:00 Test Item Value Reference Range Comments POC-GLUCOSE METER (BEAKER) 257 mg/dL 70-110 TESTE D AT [address] (test code = 1538) [place] [address]30 BASIC METABOLIC [id number] 17:49:00 Test Item Value Reference Range Comments [...] APPLICABLE F OR DIALYSIS PATIENT S. POCT-GLUCOSE [id number] 17:02:00 Test Item Value Reference Range Comments POC-GLUCOSE METER (BEAKER) 235 mg/dL 70-110 TESTE D AT [address] (test code = 1538) [place] [address]30 POCT-GLUCOSE [id number] 12:06:00 Test Item Value Reference Range Comments POC-GLUCOSE METER (BEAKER) 249 mg/dL 70-110 TESTE D AT [address] (test code = 1538) [place] [address]30 POCT-GLUCOSE [id number] 09:40:00 Test Item Value Reference Range Comments POC-GLUCOSE METER (BEAKER) 278 mg/dL 70-110 TESTE D AT [facility] [address] (test code = 1538) [place] [address] BASIC METABOLIC [id number] 06:14:00 Test Item Value Reference Range Comments [...] NOT APPLICABLE F OR DIALYSIS PATIENT S. [id number] 06:03:00 Test Item Value Reference Range Comments [...] for patients with mechanical heart valves. SCREEN, [id number] 05:59:00 Test Item Value Reference Range Comments TEST URINE (BEAKER) (test code = 583) Negative POCT-GLUCOSE [id number] 05:46:00 Test Item Value Reference Range Comments POC-GLUCOSE METER (BEAKER) 140 mg/dL 70-110 TESTE D AT [facility] [address] (test code = 1538) [place] [address] CBC W/PLT COUNT & AUTO [id number] 05:46:00 Test Item Value Reference Range Comments [...] % 0-1 (test code = 2801) POCT-GLUCOSE [id number] 21:27:00 Test Item Value Reference Range Comments POC-GLUCOSE METER (BEAKER) 223 mg/dL 70-110 TESTE D AT [address] (test code = 1538) [place] [address]30 POCT-GLUCOSE [id number] 17:26:00 Test Item Value Reference Range Comments POC-GLUCOSE METER (BEAKER) 223 mg/dL 70-110 TESTE D AT [address] (test code = 1538) [place] [address]30 BASIC METABOLIC [id number] 16:43:00 Test Item Value Reference Range Comments [...] APPLICABLE F OR DIALYSIS PATIENT S. POCT-GLUCOSE [id number] 09:06:00 Test Item Value Reference Range Comments POC-GLUCOSE METER (BEAKER) 265 mg/dL 70-110 TESTE D AT [address] (test code = 1538) [place] [address]30 POCT-GLUCOSE [id number] 00:22:00 Test Item Value Reference Range Comments POC-GLUCOSE METER (BEAKER) 210 mg/dL 70-110 TESTE D AT [address] (test code = 1538) [place] [address]30 POCT-GLUCOSE [id number] 20:27:00 Test Item Value Reference Range Comments POC-GLUCOSE METER (BEAKER) 235 mg/dL 70-110 TESTE D AT [address] (test code = 1538) [place] [address]30 POCT-GLUCOSE [id number] 17:10:00 Test Item Value Reference Range Comments POC-GLUCOSE METER (BEAKER) 264 mg/dL 70-110 TESTE D AT [address] (test code = 1538) [place] [address]30 POCT-GLUCOSE [id number] 16:00:00 Test Item Value Reference Range Comments POC-GLUCOSE METER (BEAKER) 242 mg/dL 70-110 TESTE D AT [address] (test code = 1538) [place] [address]30 POCT-GLUCOSE [id number] 08:54:00 Test Item Value Reference Range Comments POC-GLUCOSE METER (BEAKER) 224 mg/dL 70-110 TESTE D AT [address] (test code = 1538) [place] [address]30 POCT-GLUCOSE [id number] 21:30:00 Test Item Value Reference Range Comments POC-GLUCOSE METER (BEAKER) 254 mg/dL 70-110 TESTE D AT [address] (test code = 1538) [place] [address]30 POCT-GLUCOSE [id number] 17:23:00 Test Item Value Reference Range Comments POC-GLUCOSE METER (BEAKER) 193 mg/dL 70-110 TESTE D AT [address] (test code = 1538) [place] [address]30 POCT-GLUCOSE [id number] 11:53:00 Test Item Value Reference Range Comments POC-GLUCOSE METER (BEAKER) 179 mg/dL 70-110 TESTE D AT [address] (test code = 1538) [place] [address]30 [id number] 10:15:00 Test Item Value Reference Range Comments CORTISOL, TOTAL (BEAKER) (test code = 2755) 4.7 ug/dL 3.7- 19.4 POCT-GLUCOSE [id number] 08:07:00 Test Item Value Reference Range Comments POC-GLUCOSE METER (BEAKER) 184 mg/dL 70-110 TESTE D AT [address] (test code = 1538) [place] [address], BRAIN, WITHOUT [id number] 22:07:00FINAL REPORT CT Head without contrast CLINICAL [...] [place] Verified Date/Time: 06/20/2018 22:07:25 Reading Location: [address] Transitional Reading Room POCT-GLUCOSE [id number] 21:00:00 Test Item Value Reference Range Comments POC-GLUCOSE METER (BEAKER) 227 mg/dL 70-110 TESTE D AT [address] (test code = 1538) [place] [address]30 POCT-GLUCOSE [id number] 16:57:00 Test Item Value Reference Range Comments POC-GLUCOSE METER (BEAKER) 216 mg/dL 70-110 TESTE D AT [address] (test code = 1538) [place] [address]30 POCT-GLUCOSE [id number] 13:11:00 Test Item Value Reference Range Comments POC-GLUCOSE METER (BEAKER) 198 mg/dL 70-110 TESTE D AT [facility] [address] [facility] (test code = 1538) [place] [address]30 POCT-GLUCOSE [id number] 07:47:00 Test Item Value Reference Range Comments POC-GLUCOSE METER (BEAKER) 213 mg/dL 70-110 TESTE D AT [facility] [address] [facility] (test code = 1538) [place] [address]30 BASIC METABOLIC [id number] 06:57:00 Test Item Value Reference Range Comments [...] APPLICABLE F OR DIALYSIS PATIENT S. POCT-GLUCOSE [id number] 05:24:00 Test Item Value Reference Range Comments POC-GLUCOSE METER (BEAKER) 192 mg/dL 70-110 TESTE D AT [facility] [address] [facility] (test code = 1538) [place] [address], CTANGIO [id number] 01:03:00FINAL REPORT CLINICAL HISTORY: Stroke TECHNIQUE: Initially, [...] MDReport Verified Date/Time: 06/20/2018 01:03:44 Reading Location: [address] Transitional Reading Room [facility] ANG[facility] 2018-06-20 01:03:00FINAL REPORT CLINICAL HISTORY: [...] [place] Verified Date/Time: 06/20/2018 01:03:44 Reading Location: [address] Reading Room POCT-GLUCOSE METER 2018-06-20 00:40:00 Test Item Value Reference Range Comments POC-GLUCOSE METER (BEAKER) 283 mg/dL 70-110 TESTE D AT [address] (test code = 1538) [place] [address] POCT-GLUCOSE [id number] 21:21:00 Test Item Value Reference Range Comments POC-GLUCOSE METER (BEAKER) 343 mg/dL 70-110 TESTE D AT [address] (test code = 1538) [place] [address] SCREEN, [id number] 18:52:00 Test Item Value Reference Range Comments TEST URINE (BEAKER) (test code = 583) Negative POCT-GLUCOSE [id number] 17:17:00 Test Item Value Reference Range Comments POC-GLUCOSE METER (BEAKER) 287 mg/dL 70-110 TESTE D AT [address] (test code = 1538) [place] [address] [id number] 15:59:00 Test Item Value Reference Range Comments RPR SCREEN (BEAKER) (test code = 420) Nonreactive Nonreactiv e POCT-GLUCOSE [id number] 15:07:00 Test Item Value Reference Range Comments POC-GLUCOSE METER (BEAKER) 323 mg/dL 70-110 TESTE D AT [address] (test code = 1538) [place] [address] T4, [id number] 13:11:00 Test Item Value Reference Range Comments FREE T4 (BEAKER) (test code = 655) 0.89 ng/dL 0.70-1.48 HIV-1 ANTIGEN WITH HIV-1/2 [id number] 13:11:00 Test Item Value Reference Range Comments HIV-1 ANTIGEN WITH HIV 1\\T\\2 ANTIBODY (2) Nonreactive Nonrea ctive (BEAKER) (test code = 2586) RAPID DRUG SCREEN, [id number] 12:47:00 Test Item Value Reference Range Comments [...] situations. Chain of custody not maintained. Some xklh-jnl-uyjfdcj medications, as well as adulterants, may cause inaccurate results. Clinical correlation should be applied. A more comprehensive drug screen or confirmation of a detected drug may be performed upon request. POCT-GLUCOSE [id number] 12:37:00 Test Item Value Reference Range Comments POC-GLUCOSE METER (BEAKER) 292 mg/dL 70-110 TESTE D AT [facility] [address] [facility] (test code = 1538) [facility] [address] HEMOGLOBIN [id number] 12:35:00 Test Item Value Reference Range Comments HEMOGLOBIN A1C (BEAKER) (test code = 368) 7.9 % 4.3-6. 1 OSMOLALITY, [id number] 12:34:00 Test Item Value Reference Range Comments OSMOLALITY, SERUM (BEAKER) (test code = 615) 310 mOsm/kg 275 -295 C-REACTIVE [id number] 12:28:00 Test Item Value Reference Range Comments C-REACTIVE PROTEIN (BEAKER) (test code = 676) 0.81 mg/dL 0. 00-0.50 OSMOLALITY, [id number] 12:22:00 Test Item Value Reference Range Comments OSMOLALITY URINE (BEAKER) (test code = 614) 247 mOsm/kg 40-1 ,400 CBC W/PLT COUNT & AUTO [id number] 12:14:00 Test Item Value Reference Range Comments [...] % 0-1 (test code = 2801) POCT-GLUCOSE [id number] 10:30:00 Test Item Value Reference Range Comments POC-GLUCOSE METER (BEAKER) 341 mg/dL 70-110 TESTE D AT [facility] [address] (test code = 1538) [facility] [address] [id number] 06:17:00 Test Item Value Reference Range Comments PROLACTIN (BEAKER) (test code = 758) 23.34 ng/mL 5.18-26.53 POCT-GLUCOSE [id number] 05:55:00 Test Item Value Reference Range Comments POC-GLUCOSE METER (BEAKER) 285 mg/dL 70-110 TESTE D AT [facility] [address] (test code = 1538) [facility] [address] MR, BRAIN, [id number] 02:25:00Pituitary protocolCr 0.6FINAL REPORT MRI brain with and without contrast Comparison: None. 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 Signed: Narcisa Mcdonaldort Verified Date/Time: 06/19/2018 02:25:15 Reading Location: [place] [address]Y CT Body Reading Room TSH/FREE T4 IF [id number] 00:26:00 Test Item Value Reference Range Comments THYROID STIMULATING HORMONE (BEAKER) (test code 0.41 uIU/mL 0.35-4.94 = 772) BASIC METABOLIC [id number] 00:07:00 Test Item Value Reference Range Comments [...] DIALYSIS PATIENT S. URINALYSIS W/ REFLEX URINE [id number] 23:13:00 Test Item Value Reference Range Comments [...]
--- OUTSIDE RECORDS SUMMARY | 2019-11-14 12:23 | XMS REPORT ---
[...] System Date Date MetFORMIN HCl ER ND 72039608975 750 MG Orally Activ e 1 tablet Once a day with evening meal Levothyroxine ND 99962856128 88 MCG Oral Active TA KE 1 Sodium TABLET BY MOUTH EVERY MORNING GlyBURIDE ND 04428861382 5 MG Orally BID Active 2 tabs bid with meal Losartan ND 63516519935 100-12.5 MG Oct 10, Active 1 table t Potassium-HCTZ Orally Once a 2019 day Losartan ND 35434123219 50 MG Orally Active 1 tabl et Potassium Once a day Hydrocortisone ND 79293859503 10 MG Orally Active 1 tablet every 12 hrs with food or milk Amlodipine ND 05414686855 10 MG Orally Active 1 ta blet Besylate Once a day Results No Known Results Summary Purpose eClinicalWorks Submission
--- OUTSIDE RECORDS SUMMARY | 2019-11-14 12:24 | XMS REPORT ---
:1970 Author Organization eClinicalWorks Care Team Providers Name Role Phone Linnea Logan Provider Role Unavailable Allergies No Known Allergies Problems Problem Type Condition Code Onset Dates Condition Statu s Problem Hypertension I10 Active Problem Allergic rhinitis, unspecified J30.9 Active Problem Hyperlipidemia E78.5 Active Assessment Hypothyroidism E03.9 Active Problem Hypothyroidism E03.9 Active Problem Anxiety F41.9 Active Problem Essential hypertension I10 Activ e Problem Dental abscess K04.7 Active Problem Vaginal joseph B37.3 Active Problem Type 2 diabetes mellitus without E11.9 Active complication, without long-term current use of insulin Problem Migraines G43.909 Active Problem Seasonal allergic rhinitis due to J30.1 Active pollen Problem Fatty liver K76.0 Active Medications Medication Code Code Instructions Start End Status Dosage System Date Date Levothyroxine [facility] 67629926977 100 MCG Oral Active 1 tablet Sodium Once a day in the morning on an empty stomach Results No Known Results Summary Purpose [employer] Submission
--- OUTSIDE RECORDS SUMMARY | 2019-11-14 12:24 | XMS REPORT ---
[...] J30.9 Active Problem Hyperlipidemia E78.5 Active Problem Essential hypertension I10 Activ e Problem Dental abscess K04.7 Active Problem Vaginal joseph B37.3 Active Problem Type 2 diabetes mellitus without E11.9 Active complication, without long-term current use of insulin Problem Migraines G43.909 Active Problem Seasonal allergic rhinitis due to J30.1 Active pollen Problem Fatty liver K76.0 Active Assessment Vaginal joseph B37.3 Active Assessment Type 2 diabetes mellitus without E11.9 Active complication, without long-term current use of insulin Assessment Hypothyroidism E03.9 Active Problem Hypothyroidism E03.9 Active Assessment Hypertension I10 Active Problem Anxiety F41.9 Active Medications Medication Code Code Instructions Start End Status Dosage System Date Date Metformin HCl ND 22284864629 1000 MG Orally Aug 07, Active 1 tablet Once a day 2019 with a meal GlyBURIDE ND 47691601845 5 MG Active TAKE 2 TABLETS BY MOUTH TWICE A DAY WITH A MEAL Novolin N [facility] [address]-08 100 UNIT/ML Active 17 u nits Subcutaneous Twice a day Nitrofurantoin ND 43147032809 100 MG Oral Active T NELSON 1 Monohyd Macro CAPSULE BY MOUTH EVERY 12 HOURS FOR 7 DAYS Losartan Potassium ND 64261371882 100 MG Orally October priyanka 1 tablet Once a day 2019 Hydrochlorothiazide ND 98242236533 12.5 MG Orally October ctive 1 capsule Once a day , in the 2019 morning MetFORMIN HCl ER [facility] 33533800452 750 MG Orally Activ e 1 tablet Once a day with evening meal Hydrocortisone [facility] 10438101973 10 MG Orally Active 1 tablet every 12 hrs with food or milk Levothyroxine Sodium [facility] 35050572615 88 MCG Oral Act priyanka TAKE 1 TABLET BY MOUTH EVERY MORNING Meclizine HCl [facility] 62825571939 25 MG Oral Active KARLO E 1 TABLET BY MOUTH EVERY 8 HOURS NEEDED Results Name Result Date Reference Range Unit Abnormali ty Flag HEMOGLOBIN A1C ----A1C 10.7 [id number] Summary Purpose eClinicalWorks Submission
--- OUTSIDE RECORDS SUMMARY | 2019-11-14 12:24 | XMS REPORT ---
[...] End Status Dosage System Date Date Hydrochlorothiazide [facility] 91841020687 12.5 MG Orally October ctive 1 Once a day 2019 in the morning Losartan Potassium ND 09784928224 100 MG Orally October priyanka 1 tablet Once a day 2019 Losartan [facility] 86573197373 100-12.5 MG Inactive TAKE 1 Potassium-HCTZ TABLET BY MOUTH EVERY DAY Results No Known Results Summary Purpose eClinicalWorks Submission
--- OUTSIDE RECORDS SUMMARY | 2019-11-14 12:24 | XMS REPORT ---
:1970 Author Organization eClinicalWorks Care Team Providers Name Role Phone Linnea Logan Provider Role Unavailable Allergies No Known Allergies Problems Problem Type Condition Code Onset Dates Condition Statu s Problem Hypertension I10 Active Problem Allergic rhinitis, unspecified J30.9 Active Problem Hyperlipidemia E78.5 Active Problem Hypothyroidism E03.9 Active Problem Anxiety F41.9 Active Problem Essential hypertension I10 Activ e Problem Dental abscess K04.7 Active Problem Vaginal joseph B37.3 Active Problem Type 2 diabetes mellitus without E11.9 Active complication, without long-term current use of insulin Problem Migraines G43.909 Active Problem Seasonal allergic rhinitis due to J30.1 Active pollen Problem Fatty liver K76.0 Active Medications No Known Medications Results No Known Results Summary Purpose eClinicalWorks Submission
--- OUTSIDE RECORDS SUMMARY | 2019-11-14 12:24 | XMS REPORT ---
[...] Status Dosage System Date Date Novolin N [facility] [address]-09 100 UNIT/ML Active 10 u nits Subcutaneous Twice a day Losartan [facility] 11268712124 100-12.5 MG Active 1 table t Potassium-HCTZ Orally Once a day MetFORMIN HCl ER ND 95150515032 750 MG Orally Activ e 1 tablet Once a day with evening meal Levothyroxine ND 30887556287 88 MCG Oral Active TA KE 1 Sodium TABLET BY MOUTH EVERY MORNING Hydrocortisone [facility] 59422778469 10 MG Orally Active 1 tablet every 12 hrs with food or milk Metformin HCl ND 15830855505 1000 MG Orally Aug 07, Active 1 tablet Once a day 2019 with a meal GlyBURIDE ND 40577656842 5 MG Active TAKE 2 TABLETS BY MOUTH TWICE A DAY WITH A MEAL Results Name Result Date Reference Range Unit Abnormali ty Flag HEMOGLOBIN A1C ----A1C 10.6 [id number] Summary Purpose eClinicalWorks Submission
[2019-11-14 13:54] LABS: Absolute Lymphocytes (CBC) 2.2 K/uL (0.7-4.9); Basophils % 0.2 % (0-1.3); Hematocrit 46.6 % (36.0-45.0); Lymphocytes % 22.5 % (15.3-44.8); MPV 9.9 fL (7.6-11.3); RBC Red Blood Cell Count 5.84 M/uL (3.86-4.86)
[2019-11-14 13:55] LABS: Protime INR 1.01
[2019-11-14 14:19] LABS: ALT/SGPT 161 U/L (12-78); AST/SGOT 100 U/L (15-37); Albumin 3.7 g/dL (3.4-5.0); Alkaline Phosphatase 91 U/L (45-117); BUN Blood Urea Nitrogen 10 mg/dL (7-18); Bicarbonate 28 mmol/L (21-32); Bilirubin Direct 0.1 mg/dL (0-0.2); Bilirubin Total 0.6 mg/dL (0.2-1.0); Glucose Level 233 mg/dL (74-106); NT PRO-BNP 39 pg/mL (<125); Potassium 4.4 mmol/L (3.5-5.1); Protein, Total 8.1 g/dL (6.4-8.2); Sodium Level 138 mmol/L (136-145); Troponin (Emerg Dept Use Only) < 0.02 ng/mL (0.0-0.045)
--- NOTE | 2019-11-14 14:35 | EKG ---
Test Date: 2019-11-14 Test Time: 13:32:28 Tenderizer Tender: MONICA MEASUREMENT RESULTS: Intervals: Rate: 95 KS: 132 QRSD: 80 QT: 356 QTc: 447 [place]: P: 68 KS: 132 QRS: 64 T: 46 INTERPRETIVE STATEMENTS: Normal sinus rhythm Low voltage QRS Borderline ECG Compared to ECG 10/31/2019 05:07:29 Low QRS voltage now present Myocardial infarct finding no longer present Electronically Signed On 11-14-19 14:35:27 CDT by Ruslan Garibay
--- NOTE | 2019-11-14 15:11 | ER ---
Nurse's Notes [facility] Name: Chantal Stout Age: 49 yrs Sex: Female : 1970 Arrival Date: 11/14/2019 Time: 12:22 Bed 14 Private MD: JOSE MAR Diagnosis: Hypothyroidism, unspecified Presentation: 11/13 13:08 Chief complaint: Patient states: has been feeling spacey, legs feel heavy like she's iw treading water, started 2 days ago, thinks it's because her thyroid medicine was increased from 88 mcg to 100 mcg, also was started on metformin 1000 BID by Brook Mar. Coronavirus screen: Proceed with normal triage. Patient denies a cough. Patient denies shortness of breath or difficulty breathing. Patient denies measured and/or subjective temperature greater than 100.4F prior to today's visit. Patient denies travel on a cruise ship or to a country the [facility] currently lists as an affected area. Patient denies contact with known and/or suspected case of COVID-19. Ebola Screen: Patient negative for fever greater than or equal to 101.5 degrees Fahrenheit, and additional compatible Ebola Virus Disease symptoms Patient denies exposure to infectious person. Patient denies travel to an Ebola-affected area in the 21 days before illness onset. No symptoms or risks identified at this time. Initial Sepsis Screen: Does the patient meet any 2 criteria? No. Patient's initial sepsis screen is negative. Does the patient have a suspected source of infection? No. Patient's initial sepsis screen is negative. Risk Assessment: Do you want to hurt yourself or someone else? Patient reports no desire to harm self or others. Onset of symptoms was November 12, 2019. 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 iw Historical: - Allergies: 13:12 Bactrim; iw 13:12 Cephalexin; iw 13:12 Codeine; iw 13:12 Iodine; iw 13:12 Levaquin; iw 13:12 Sulfa (Sulfonamide Antibiotics); iw - Home Meds: 13:12 metformin 1,000 mg Oral tr24 1 tab twice a day for Type 2 Diabetes Mellitus [Active]; iw glyburide 5 mg Oral tab 1 tab 2 times per day [Active]; hydrochlorothiazide 12.5 mg Oral cap 1 cap once daily [Active]; hydrocortisone 10 mg Oral tab 1 tab 2 times per day [Active]; insulin NPH human recomb 15 units subcutaneous twice a day [Active]; losartan 100 mg Oral tab 1 tab once daily [Active]; metformin 750 mg Oral Tb24 1 tab once daily for Type 2 Diabetes Mellitus [Active]; levothyroxine 100 mcg oral tab once daily [Active]; - PMHx: 13:12 Anemia; Asthma; Diabetes - NIDDM; Hypertension; Hypothyroidism; pituitary tumor- iw surgically removed Jun 24; ADD/ADHD; Screenin:00 Abuse screen: Denies threats or abuse. Nutritional screening: No deficits noted. Tuberculosis screening: No symptoms or risk factors identified. Fall Risk None identified. Assessment: 13:25 General: Appears in no apparent distress. Behavior is calm, cooperative. Pain: Denies ah pain. Neuro: Level of Consciousness is awake, alert, Oriented to person, place, time, situation, Second Cutter are equal bilaterally Speech is normal, Facial symmetry appears normal, Pupils are PERRLA, Reports dizziness, since yesterday. Cardiovascular: Heart tones S1 S2 present Capillary refill < 3 seconds Patient's skin is warm and dry. Respiratory: Airway is patent Respiratory effort is even, unlabored, Respiratory pattern is regular, symmetrical, Breath sounds are clear bilaterally. GI: Bowel sounds present X 4 quads. : No signs and/or symptoms were reported regarding the genitourinary system. EENT: No signs and/or symptoms were reported regarding the EENT system. Derm: No signs and/or symptoms reported regarding the dermatologic system. Musculoskeletal: No signs and/or symptoms reported regarding the musculoskeletal system. 14:30 Reassessment: Patient appears in no apparent distress at this time. Patient and/or ah family updated on plan of care and expected duration. Pain level reassessed. Pt states that she is not dizzy sitting, just when she gets up to walk. No needs voiced at this time. Awaiting lab results. 15:30 Reassessment: Discharge instructions given at this time. No prescriptions. Pt voiced ah understanding to follow up with her pcp. Vital Signs: 13:08 BP 155 / 100; Pulse 103; Resp 18 S; Temp 97.7; Pulse Ox 98% on R/A; Weight 135.62 kg; Height 5 ft. 4 in. (162.56 cm); Pain 0/10; 15:25 BP 129 / 78; Pulse 99; Resp 17; Pulse Ox 96% on R/A; ah 13:08 Body Mass Index 51.32 (135.62 kg, 162.56 cm) ED Course: 12:22 Patient arrived in ED. mr 12:22 ZAID JOSE is Private Physician. mr 13:05 Aidan Fuentes PA is PHCP. jr8 13:05 Jose A Smith DO is Attending Physician. jr8 13:11 Triage completed. iw 13:23 Mary Jo Torres, RN is Primary Nurse. 13:25 Initial lab(s) drawn, by me, sent to lab. Inserted saline lock: 22 gauge in left upper ah arm, using aseptic technique. 14:18 XRAY Chest (1 view) In Process Unspecified. EDMS 15:00 No provider procedures requiring assistance completed. IV discontinued, intact, ah bleeding controlled, No redness/swelling at site. Pressure dressing applied. 15:00 Patient has correct armband on for positive identification. Placed in gown. Bed in low ah position. Call light in reach. Side rails up X 1. 15:10 JOSE MAR is Referral Physician. jr8 22:06 Arm band placed on. Administered Medications: No medications were administered Outcome: 15:11 Discharge ordered by . jr8 15:40 Discharged to home via wheelchair. 15:40 Condition: good 15:40 Discharge instructions given to patient, Instructed on discharge instructions, follow up and referral plans. Demonstrated understanding of instructions, follow-up care. 15:45 Patient left the ED. Signatures: Dispatcher [employer] [facility] Eugenie Lucas Ingrid Bernabe, RN RN Aidan Fuentes PA PA jr8 Mary Jo Torres, RN RN
--- NOTE | 2019-11-14 15:12 | EDPHYS ---
Physician Documentation [facility] Name: Chantal Stout Age: 49 yrs Sex: Female : 1970 Arrival Date: 11/14/2019 Time: 12:22 Bed 14 Private MD: JOSE MAR ED Physician Jose A Smith HPI: 11/13 14:12 This 49 yrs old Female presents to ER via Ambulatory with complaints of jr8 Dizziness. 14:12 The patient presents with lightheadedness. Onset: The symptoms/episode began/occurred jr8 acutely, today. Context: occurred at home. Modifying factors: The symptoms are alleviated by nothing, the symptoms are aggravated by standing up, changing position. Associated signs and symptoms: The patient has no apparent associated signs or symptoms. Severity of symptoms: At their worst the symptoms were moderate in the emergency department the symptoms are unchanged. Patient's baseline: Neuro: alert and fully oriented, Motor: no deficits, Ambulation: walks without assistance, Speech: normal. The patient has not experienced similar symptoms in the past. The patient has not recently seen a physician. stated that she just increased her thyroid medication the other day. 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 iw Historical: - Allergies: 13:12 Bactrim; iw 13:12 Cephalexin; iw 13:12 Codeine; iw 13:12 Iodine; iw 13:12 Levaquin; iw 13:12 Sulfa (Sulfonamide Antibiotics); iw - Home Meds: 13:12 metformin 1,000 mg Oral tr24 1 tab twice a day for Type 2 Diabetes Mellitus [Active]; iw glyburide 5 mg Oral tab 1 tab 2 times per day [Active]; hydrochlorothiazide 12.5 mg Oral cap 1 cap once daily [Active]; hydrocortisone 10 mg Oral tab 1 tab 2 times per day [Active]; insulin NPH human recomb 15 units subcutaneous twice a day [Active]; losartan 100 mg Oral tab 1 tab once daily [Active]; metformin 750 mg Oral Tb24 1 tab once daily for Type 2 Diabetes Mellitus [Active]; levothyroxine 100 mcg oral tab once daily [Active]; - PMHx: 13:12 Anemia; Asthma; Diabetes - NIDDM; Hypertension; Hypothyroidism; pituitary tumor- iw surgically removed Jun 24; ADD/ADHD; ROS: 14:12 Eyes: Negative for injury, pain, redness, and discharge, ENT: Negative for injury, jr8 pain, and discharge, Neck: Negative for injury, pain, and swelling, Cardiovascular: Negative for chest pain, palpitations, and edema, Respiratory: Negative for shortness of breath, cough, wheezing, and pleuritic chest pain, Abdomen/GI: Negative for abdominal pain, nausea, vomiting, diarrhea, and constipation, Back: Negative for injury and pain, MS/Extremity: Negative for injury and deformity, Skin: Negative for injury, rash, and discoloration. 14:12 Neuro: Positive for dizziness. Exam: 14:12 Eyes: Pupils equal round and reactive to light, extra-ocular motions intact. Lids and jr8 lashes normal. Conjunctiva and sclera are non-icteric and not injected. Cornea within normal limits. Periorbital areas with no swelling, redness, or edema. ENT: Nares patent. No nasal discharge, no septal abnormalities noted. Tympanic membranes are normal and external auditory canals are clear. Oropharynx with no redness, swelling, or masses, exudates, or evidence of obstruction, uvula midline. Mucous membranes moist. Neck: Trachea midline, no thyromegaly or masses palpated, and no cervical lymphadenopathy. Supple, full range of motion without nuchal rigidity, or vertebral point tenderness. No Meningismus. Cardiovascular: Regular rate and rhythm with a normal S1 and S2. No gallops, murmurs, or rubs. Normal PMI, no JVD. No pulse deficits. Respiratory: Lungs have equal breath sounds bilaterally, clear to auscultation and percussion. No rales, rhonchi or wheezes noted. No increased work of breathing, no retractions or nasal flaring. Abdomen/GI: Soft, non-tender, with normal bowel sounds. No distension or tympany. No guarding or rebound. No evidence of tenderness throughout. Back: No spinal tenderness. No costovertebral tenderness. Full range of motion. Skin: Warm, dry with normal turgor. Normal color with no rashes, no lesions, and no evidence of cellulitis. MS/ Extremity: Pulses equal, no cyanosis. Neurovascular intact. Full, normal range of motion. Neuro: Awake and alert, GCS 15, oriented to person, place, time, and situation. Cranial nerves II-XII grossly intact. Motor strength 5/5 in all extremities. Sensory grossly intact. Cerebellar exam normal. Normal gait. 14:24 ECG was reviewed by the Attending Physician. Vital Signs: 13:08 BP 155 / 100; Pulse 103; Resp 18 S; Temp 97.7; Pulse Ox 98% on R/A; Weight 135.62 kg; iw Height 5 ft. 4 in. (162.56 cm); Pain 0/10; 15:25 BP 129 / 78; Pulse 99; Resp 17; Pulse Ox 96% on R/A; ah 13:08 Body Mass Index 51.32 (135.62 kg, 162.56 cm) iw MDM: 13:05 Patient medically screened. jr8 15:09 Data reviewed: vital signs, nurses notes, lab test result(s), EKG, radiologic studies, jr8 plain films. Data interpreted: Pulse oximetry: on room air is 98 %. Interpretation: normal. Counseling: I had a detailed discussion with the patient and/or guardian regarding: the historical points, exam findings, and any diagnostic results supporting the discharge/admit diagnosis, lab results, radiology results, the need for outpatient follow up, a family practitioner, endocrinology , to return to the emergency department if symptoms worsen or persist or if there are any questions or concerns that arise at home. ED course: Discussed with patient that her TSH has improved. No other problems noted on labs. VS normalizing. Right now would not adjust anything medication giles. Recommended close f/u. If worse to come back. Patient good with this . 11/13 13:15 Order name: Cortisol 11/13 13:15 Order name: TSH; Complete Time: 14:35 11/13 13:15 Order name: T4 Free; Complete Time: 14:35 11/13 13:15 Order name: Basic Metabolic Panel; Complete Time: 14:35 11/13 13:15 Order name: CBC with Diff; Complete Time: 14:11 11/13 13:15 Order name: LFT's; Complete Time: 14:35 11/13 13:15 Order name: Magnesium; Complete Time: 14:35 11/13 13:15 Order name: NT PRO-BNP; Complete Time: 14:35 [facility] 11/13 13:15 Order name: PT-INR; Complete Time: 14:14 jr11/13 13:15 Order name: Troponin (emerg Dept Use Only); Complete Time: 14:35 [facility] 11/13 13:15 Order name: XRAY Chest (1 view) 11/13 13:15 Order name: EKG; Complete Time: 13:17 [facility] 11/13 13:15 Order name: Cardiac monitoring [facility] 11/13 13:16 Order name: Cortisol; Complete Time: 14:35 [facility] 11/13 13:15 Order name: EKG - Nurse/Tech; Complete Time: 13:43 11/13 13:15 Order name: IV Saline Lock; Complete Time: 14:24 [facility] 11/13 13:15 Order name: Labs collected and sent; Complete Time: 14:24 [facility] 11/13 13:15 Order name: O2 Per Protocol; Complete Time: 14:24 11/13 13:15 Order name: O2 Sat Monitoring; Complete Time: 14:24 EC:24 Rate is 95 beats/min. Rhythm is regular, Normal Sinus Rhythm. QRS Corinne is Normal. AL jr8 interval is normal at 132 msec. QRS interval is normal at 80 msec. QT interval is normal at 447 msec. No Q waves. T waves are Normal. No ST changes noted. Clinical impression: Normal ECG and No evidence of ischemia. Interpreted by me. Reviewed by me. Administered Medications: No medications were administered Disposition: 15:24 Co-signature as Attending Physician, Jose A Smith DO I agree with the assessment and ms3 plan of care. Attestation: The patient's history, exam findings, diagnostics, and a summary of any interventions or procedures was reviewed in detail with Aidan CORNEJO. Disposition: 11/14/19 15:11 Discharged to Home. Impression: Hypothyroidism, unspecified. - Condition is Stable. - Discharge Instructions: Hypothyroidism. - Medication Reconciliation Form, Thank You Letter, Antibiotic Education, Prescription Opioid Use form. - Follow up: JOSE MAR; When: 1 - 2 days; Reason: Recheck today's complaints, Continuance of care, Re-evaluation by your physician. - Problem is new. - Symptoms have improved. Signatures: Dispatcher [employer] [facility] Ingrid Bernabe RN RN iw Roszak, Josh, PA PA jr8 Mary Jo Torres RN RN ah Sims, Marcus, DO DO ms3 Corrections: (The following items were deleted from the chart) 15:45 15:11 11/14/2019 15:11 Discharged to Home. Impression: Hypothyroidism, unspecified. Condition is Stable. Forms are Medication Reconciliation Form, Thank You Letter, Antibiotic Education, Prescription Opioid Use. Follow up: JOSE MAR; When: 1 - 2 days; Reason: Recheck today's complaints, Continuance of care, Re-evaluation by your physician. Problem is new. Symptoms have improved. jr8
[2019-11-14 16:04] VITALS: TEMP 97.7
[2019-11-14 16:09] VITALS: BP 129/78; O2SAT 96
--- NOTE | 2019-11-14 17:08 | RAD REPORT ---
EXAM DESCRIPTION: RAD - Chest Single View - 11/14/2019 2:15 pm CLINICAL HISTORY: DYSPNEA COMPARISON: Portable June 2019 TECHNIQUE: AP portable chest image was obtained 11/14/2019 2:15 pm . FINDINGS: Lung volumes are low. Large body habitus accentuates chest findings as well. No peripheral mass or consolidation. Interstitial pattern is not clearly different from comparison. Heart and vasc ulature are normal. No measurable pleural effusion and no pneumothorax. No acute bony abnormality see n. No acute aortic findings suspected. IMPRESSION: Limited exam showing no acute cardiopulmonary process. No significant change from comparison.
== END 2019-11-14 15:45 | disposition home or self-care (01) ==
LOC: ER 12:19
DX: E03.9 Hypothyroidism, unspecified (principal); I10 Essential (primary) hypertension; E11.9 Type 2 diabetes mellitus without complications; F90.9 Attention-deficit hyperactivity disorder, unspecified type; Z79.4 Long term (current) use of insulin; Z88.1 Allergy status to other antibiotic agents; Z88.2 Allergy status to sulfonamides; Z88.5 Allergy status to narcotic agent; Z91.048 Other nonmedicinal substance allergy status
CPT/HCPCS: 36415; 71045; 80048; 80076; 82533; 83735; 83880; 84439; 84443; 84484; 85025; 85610; 93005; 99283

== ENCOUNTER 2020-01-06 11:40 | Emergency (ER) | payer BC ==
[2020-01-06 12:31] LABS: Basophils % 0.2 % (0-1.3); Hematocrit 45.4 % (36.0-45.0); Lymphocytes % 19.9 % (15.3-44.8); MPV 10.2 fL (7.6-11.3); RBC Red Blood Cell Count 5.63 M/uL (3.86-4.86)
--- NOTE | 2020-01-06 12:48 | RAD REPORT ---
EXAM DESCRIPTION: RAD - Chest Single View - 01/06/2020 12:37 pm CLINICAL HISTORY: CHEST PAIN Chest pain. COMPARISON: Chest Single View dated 11/14/2019; Chest Single View dated 07/22/2019; Chest Single View dated 03/24/2019; Chest Single View dated 03/23/2019 FINDINGS: Portable technique limits examination quality. The lungs are grossly clear. The heart is normal in size. No displaced fractures. IMPRESSION: No acute intrathoracic process suspected.
[2020-01-06 12:51] LABS: ALT/SGPT 141 U/L (12-78); AST/SGOT 90 U/L (15-37); Albumin 3.7 g/dL (3.4-5.0); Alkaline Phosphatase 85 U/L (45-117); BUN Blood Urea Nitrogen 11 mg/dL (7-18); Bicarbonate 26 mmol/L (21-32); Bilirubin Direct 0.1 mg/dL (0-0.2); Bilirubin Total 0.7 mg/dL (0.2-1.0); Glucose Level 214 mg/dL (74-106); NT PRO-BNP 70 pg/mL (<125); Potassium 3.8 mmol/L (3.5-5.1); Protein, Total 7.8 g/dL (6.4-8.2); Sodium Level 136 mmol/L (136-145); Troponin (Emerg Dept Use Only) < 0.02 ng/mL (0.0-0.045)
[2020-01-06 13:35] LABS: Urine Blood NEGATIVE (NEG); Urine Glucose TRACE (NEG); Urine Protein NEGATIVE (NEG); Urine Specific Gravity 1.015 (1.005-1.030)
--- OUTSIDE RECORDS SUMMARY | 2020-01-06 13:50 | XMS REPORT | Clinical Summary ---
:1970 Author Organization [facility] Address [address] [place] [address] Care Team Providers Name Role Phone Pcp Primary Care Provider Unavailable Allergies Active Allergy Reactions Severity Noted Date Comments Sulfamethoxazole-Trimethoprim Swelling 06/26/2018 Ceftriaxone Rash Low 06/21/2018 Cephalexin 06/26/2018 Fever Codeine 06/26/2018 hyperactivity Levofloxacin 06/26/2018 Hallucinations Monosodium Glutamate 06/26/2018 Flushed face Medications Medication Sig Dispensed Refills Start Date End Date Status levothyroxine Take 88 mcg by 0 A ctive (SYNTHROID, mouth Every LEVOTHROID) 88 MCG morning on an tablet empty stomach. metFORMIN (GLUCOPHAGE) Take 750 mg by 0 Active 500 MG tablet mouth 2 (two) times daily with breakfast and dinner. glyBURIDE (DIABETA) 5 Take 5 mg by mouth 0 Active MG tablet daily. sod 1 packet by Nasal 3 packet 5 06/25/2018 A ctive suyot-ufkruq-wioyxy route 2 (two) bottle (NEILMED SINUS times daily. RINSE COMPLETE) pkdv amLODIPine (NORVASC) Take 10 mg by 0 Active 10 MG tablet mouth daily. famotidine (PEPCID) 20 Take 1 tablet (20 30 tablet 0 8 Active MG tablet mg total) by mouth every 12 (twelve) hours. 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 How often do you have six or more drinks on one Not asked occasion? Sex Assigned at Date Recorded Not on file Job Start Date Occupation Industry Not on file Not on file Not on file Travel History Travel Start Travel End No recent travel history available. 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 Device Shelf Model / Identifier Expiration Serial / Date Lot Sealant Durasl Spine 5ml [id number] - [id number] Cement/Fi N/A: INT EGRA LIFESCI [id number]/21/[id number] / Implanted: Qty: 1 on 06/24/2018 by Alex Ruano MD ller/[employer] / sive [id number] Flseal Vhsd Full Strlprep 10ml [id number] - [id number] Cement/Fi N/A : FUNES:BIOSCI 11/18/2019 [id number] / Implanted: Qty: 1 on 06/24/2018 by Alex Ruano MD [employer]ler[employer] / sive [id number] Graft Matrix Dura 1x3 [id number] - [id number] Neuro N/A: [employer]IC 02/20/2020 [id number] / Implanted: Qty: 1 on 06/24/2018 by Alex Ruano MD Head SURGICAL / NAVIGATION [id number] Results Not on fileafter 01/05/2019 Insurance Payer Benefit Plan / Subscriber ID Type Phone Address Group BLUE CROSS/BLUE BCBS OS xxxxxxxxxxxx PPO [phone] PO [address] X [id number] SHIELD POS/PPO/[place] [address] Advance Directives Patient has advance care planning documents, and code status on file. For more information, please contact:[address] [phone] Code Status Date Activated Date Inactivated Comments Full Code 06/26/2018 1:38 PM This code status was determined by: Patient Full Code 06/18/2018 8:39 PM 06/26/2018 11:54 AM This code status was determined by: Patient
--- OUTSIDE RECORDS SUMMARY | 2020-01-06 13:52 | XMS REPORT ---
[...] End Status Dosage System Date Date Hydrochlorothiazide [facility] 82305197895 12.5 MG Orally October ctive 1 Once a day 2019 in the morning Losartan Potassium ND 49146417621 100 MG Orally October priyanka 1 tablet Once a day 2019 Losartan [facility] 58258556523 100-12.5 MG Inactive TAKE 1 Potassium-HCTZ TABLET BY MOUTH EVERY DAY Results No Known Results Summary Purpose eClinicalWorks Submission
--- OUTSIDE RECORDS SUMMARY | 2020-01-06 13:52 | XMS REPORT | Continuity of Care Document ---
:1970 Author Organization [facility] t Address [address] [place] [address] [address]. [address] [place] [address] Care Team Providers Name Role Phone Pcp Primary Care Physician Unavailable ROBERT GEORGE Attending Clinician Unavailable Clare DOBSON Attending Clinician Unavailable NIKO Admitting Clinician Unavailable Clare DOBSON Admitting Clinician Unavailable Problems Condition Condition Condition Status Onset Resolution Last Treating Co mments Source Name Details Category Date Date Treatment Clinician Date Headache Headache Disease [facility] 00 [facility] [place] in [place] in Disease Active 2017-[address] [facility] region of region of 08-18 [facility] - sella sella 00:00: Medical turcica turcica 00 Center present on present on magnetic magnetic resonance resonance imaging imaging Anxiety Anxiety [facility] Essential Essential Problem Active [facility] hypertensi hypertensi [place] [facility] - on on [facility]ics Hypothyroi Hypothyroi Problem Active [facility] dism dism [facility] Hyperlipid Hyperlipid Problem Active [facility] emia emia [facility] Allergic Allergic Problem [facility] rhinitis, rhinitis, [facility] - unspecifie unspecifie Me moria d d l Outpati ent Clinics Migraines Migraines Problem Active [facility] 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[facility] diabetes diabetes [facility] - mellitus mellitus Memori a without without l complicati complicati Ou tpati on, on, ent without without Clinics long-term long-term current current use of use of insulin insulin Seasonal Seasonal Problem Active [facility] allergic allergic [facility] - rhinitis rhinitis Memori a due to due to l pollen pollen Outpati ent Clinics Fatty Fatty Problem Active [facility] liver liver [facility] Dental Dental Problem Active [facility] abscess abscess [facility] Vaginal Vaginal Problem Active [facility]ph [facility] Allergies, Adverse Reactions, Alerts Allergy Allergy Status Severity Reaction(s) Onset Inactive Treating Comm ents Source Name Type Date Date Clinician Sulfamet Propensi Active Swelling 2017-[address] [facility] hoxazole ty to 2-05 [facility] - -Trimeth adverse 00:00: Medical oprim reaction 00 [place] Cephalex Propensi Active 2017-[address] in ty to 2-05 [facility] - adverse 00:00: Medical reaction 00 [place] Codeine Propensi Active 2017-[address] ty to 2-05 vity [facility] - adverse 00:00: Medical reaction 00 [place] Levoflox Propensi Active 2017-[address] acin ty to 2-05 tions [facility] - adverse 00:00: Medical reaction 00 [place] Monosodi Propensi Active 2017-07 Flushed [facility] um ty to 2-05 face [facility] - Glutamat adverse 00:00: Medical e reaction 00 [place] Ceftriax Propensi Active Rash 2017-[address] [facility] one ty to 30 [facility] - adverse 00:00: Medical reaction 00 [place] statin Adverse Active throat [facility] Reaction swelling [facility] clindamy Adverse Active swelling [facility] rajiv Reaction [facility] vancomyc Adverse Active face [facility] in Reaction swelling, [facility] - fever [facility] Jardianc Adverse Active severe [facility] e Reaction anxiety [facility] Iodine Adverse Active increases BS [facility] Reaction to [facility] - 400's,skin [facility] bl[facility] Azithrom Adverse Active decreased [facility] ycin Reaction B/P,palpitat [facility] [facility] - ions [facility] Lisinopr Adverse Active cough [facility] il Reaction [facility] Fenofibr Adverse Active face [facility] ate Reaction swelling [facility] Bactrim Adverse Active face [facility] Reaction swelling [facility] Levaquin Adverse Active hallucinatio [facility] Family History Family Member Diagnosis Comments Start Date Stop Date Source Natural father Hypertension [facility] Natural mother Diabetes [facility] Natural mother Hypertension [facility] Other Diabetes [facility] Social History Social Habit Start Date Stop Date Quantity Comments Source History SDOH Alcohol [facility] - Std Drinks [facility] History SDOH Alcohol [facility] Binge [facility] Sex Assigned At [facility] History SDOH Alcohol 2018-06-18 2018-06-18 2 [facility] 00:00:00 [facility] Smoking Status Start Date Stop Date Source Former smoker 2018-06-24 00:00:00 2018-06-24 00:00:00 [facility] Medications Ordered Filled Start Stop Current Ordering Indication Dosage Frequency Signature Comments Components Source Medication Medication Date Date Medication? Clinician (SIG) Name Name famotidine 2017-07 Yes 20mg Take 1 [facility] (PEPCID) 20 2-06 tablet (20 [place] [facility] - MG tablet 00:00: mg total) Med ical 00 by mouth Center every 12 (twelve) hours. amLODIPine 2017-07 Yes 10mg QD Take [address] (NORVASC) 2-05 by mouth [facility] - 10 MG 12:23: daily. Medical tablet 47 Center sod 2017-07 Yes 1{packe Q.5D [address] chlor-bicar 2-04 t} by Nasal [facility] - b-squeez 00:00: route 2 Medica l bottle 00 (two) Center (NEILMED times SINUS RINSE daily. COMPLETE) pkdv metFORMIN 2017-07 Yes 750mg Take [address] [facility] (GLUCOPHAGE 1-27 mg by [facility] - ) 500 MG 21:23: mouth 2 Medica l tablet 10 (two) Center times daily with breakfast and dinner. glyBURIDE 2017-07 Yes 5mg QD Take [address] (DIABETA) 5 1-27 by mouth [facility] - MG tablet 21:23: daily. Medica l 10 Center levothyroxi 2017-07 Yes 88ug Take [address] [facility] ne 1-27 mcg by [facility] - (SYNTHROID, 21:21: mouth Medic al LEVOTHROID) 43 Every Center 88 MCG morning on tablet an empty stomach. Levothyroxi Levothyroxi Yes Linnea [address] ne Sodium ne Sodium [place] in the [place] [facility] - morning on Memoria an empty l stomach Outpati ent Clinics Procedures This patient has no known procedures. Encounters Start End Encounter Admission Attending Care Care Encounter Source Date/Time Date/Time Type Type Clinicians Facility Department ID 2019-11-19 2019-11-19 [facility] [id number] [address] 09:25:00 09:25:00 [facility] Medicine Outpati ent Clinics 2019-11-10 2019-11-10 [facility] [id number] 10:08:00 10:08:00 [facility] Medicine Outpati ent Clinics 2019-11-06 2019-11-06 [facility] [id number] 08:00:00 08:00:00 [facility] Clin[facility] 2019-10-30 2019-10-30 [facility] [id number] 15:58:00 15:58:00 [facility] Clin[facility] 2019-10-27 2019-10-27 [facility] [id number] 11:16:00 11:16:00 [facility] Out[facility] Clin[facility] 2019-08-07 2019-08-07 [facility] [id number] 08:40:00 08:40:00 [facility] Clinics 2019-05-01 2019-05-01 [facility] [id number] 09:40:00 09:40:00 [facility] Medicine Outpati ent Clinics 2019-01-30 2019-01-30 [facility] [id number] 08:40:00 08:40:00 [facility]i [facility] Clinics 2018-10-27 2018-10-27 [facility] [id number] 06:29:00 06:29:00 t [facility] Medicine Outpati ent Clinics 2018-10-22 2018-10-22 [facility] [id number] 13:00:00 13:00:00 t [facility] Medicine Outpati ent Clinics 2018-07-30 2018-07-30 [facility] [id number] 13:30:00 13:30:00 t [facility] Medicine Outpati ent Clinics 2018-07-25 2018-07-25 [facility] [id number] 19:48:00 19:48:00 [facility] Medicine Outpati ent Clinics 2018-03-12 2018-03-12 [facility] [id number] 13:41:00 13:41:00 t [facility] Medicine Outpati ent Clinics 2018-02-27 2018-02-27 [facility] [id number] 14:46:00 14:46:00 t [facility] Medicine Outpati ent Clinics 2018-02-20 2018-02-20 [facility] [id number] 08:30:00 08:30:00 [facility] Medicine Outpati ent Clinics 2018-02-12 2018-02-12 [facility] [id number] 10:45:00 10:45:00 [facility] Medicine Outpati ent Clinics 2018-01-21 2018-01-21 [facility] [id number] 09:00:00 09:00:00 [facility] Medicine Outpati ent Clinics Results Test Description Test Time Test Comments Results Result Sourc e Comments TISSUE EXAM 2018-06-28 Surgical Pathology Report 08:38:00 Case: [id number] Authorizing Provider: Alex Ruano MD Collected: 06/24/[id number] Ordering Location: [address] Received: 06/24/2018 0809 Service Pathologist: Chon Andino MD Specimens: A) - Tumor, pituitary tumor B) - Tumor, pituitary tumor A.PITUITARY GLAND, TRANSSPHENOIDAL 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 PITUITARY GLAND, TRANSSPHENOIDAL HYPOPHYSECTOMY:NULL CELL ADENOMAENTRAPPED ADENOHYPOPHYSIS Signing Pathologist Direct Phone Line: [phone] signed by Chon Andino MD on 06/28/2018 at 8:38 AMImmunoperoxidase stains performed on the second specimen show that the tumor has no staining for growth hormone, LH, FSH, TSH, prolactin, or ACTH. 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 The MIB-1 proliferation index is less than 1%. 98484 x 2; 38866; 14520; 45515 x 6; 05161Vaiwlvikd adenoma A. Pituitary tumor; B. Pituitary tumorA. [...] specimen is entirely submitted in cassette B1. 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 Henleyformed on A and BThe interpretation of this case included the use of immunohistochemistry or special stains. Immunohistochemistry technical testing was performed at [facility], Pathology Laboratory where it was developed and [...] 2018-06-27 12:43:00 Test Item Value Reference Range Interpretation Comme nts POC-GLUCOSE METER (BEAKER) (test 141 mg/dL 70-[address] [facility] [address] code = 1538) [facility] 7703 0 POCT-GLUCOSE [id number] 12:06:00 Test Item Value Reference Range Interpretation Comments POC-GLUCOSE METER 217 mg/dL 70-[address] [facility] [address] (BEAKER) (test code = [place] [facility] 1538) [address] BASIC METABOLIC [id number] 07:18:00 Test Item Value Reference Range Interpretation Comments SODIUM (BEAKER) 139 meq/L 136-145 (test code = 381) POTASSIUM (BEAKER) 4.1 meq/L 3.5-5.1 (test code = 379) CHLORIDE (BEAKER) 105 meq/L 98-107 (test code = 382) CO2 (BEAKER) (test 28 meq/L 22-29 code = 355) BLOOD UREA NITROGEN 11 mg/dL 7-21 (BEAKER) (test code = 354) CREATININE (BEAKER) 0.69 mg/dL 0.57-1.25 (test code = 358) GLUCOSE RANDOM 163 mg/dL 70-105 H (BEAKER) (test code = 652) CALCIUM (BEAKER) 8.6 mg/dL 8.4-10.2 (test code = 697) EGFR (BEAKER) (test 91 mL/min/1.73 ESTIMA EDOUARD GFR IS code = 1092) sq m NOT ACCURATE CREATININE CLEARANCE IN PREDICTING GLOMERULAR FILTRATION RATE . ESTIMATED GFR I S NOT APPLICABLE FOR DIALYSIS PATIEN TS. CBC W/PLT COUNT & AUTO [id number] 06:49:00 Test Item Value Reference Range Interpretation Comments WHITE BLOOD CELL COUNT (BEAKER) 8.7 K/ L 3.5-10.5 (test code = 775) RED BLOOD CELL COUNT (BEAKER) 4.82 M/ L 3.93-5.22 (test code = 761) HEMOGLOBIN (BEAKER) (test code = 13.2 GM/DL 11.2-15.7 410) HEMATOCRIT (BEAKER) (test code = 40.8 % 34.1-44.9 411) MEAN CORPUSCULAR VOLUME (BEAKER) 84.6 fL 79.4-94.8 (test code = 753) MEAN CORPUSCULAR HEMOGLOBIN 27.4 pg 25.6-32.2 (BEAKER) (test code = 751) MEAN CORPUSCULAR HEMOGLOBIN CONC 32.4 GM/DL 32.2-35.5 (BEAKER) (test code = 752) RED CELL DISTRIBUTION WIDTH 13.2 % 11.7-14.4 (BEAKER) (test code = 412) PLATELET COUNT (BEAKER) (test 233 K/CU MM 150-450 code = 756) MEAN PLATELET VOLUME (BEAKER) 11.5 fL 9.4-12.3 (test code = 754) NUCLEATED RED BLOOD CELLS 0 /100 WBC 0-0 (BEAKER) (test code = 413) NEUTROPHILS RELATIVE PERCENT 65 % (BEAKER) (test code = 429) LYMPHOCYTES RELATIVE PERCENT 24 % (BEAKER) (test code = 430) MONOCYTES RELATIVE PERCENT 8 % (BEAKER) (test code = 431) EOSINOPHILS RELATIVE PERCENT 2 % (BEAKER) (test code = 432) BASOPHILS RELATIVE PERCENT 0 % (BEAKER) (test code = 437) NEUTROPHILS ABSOLUTE COUNT 5.65 K/ L 1.56-6.13 (BEAKER) (test code = 670) LYMPHOCYTES ABSOLUTE COUNT 2.07 K/ L 1.18-3.74 (BEAKER) (test code = 414) MONOCYTES ABSOLUTE COUNT (BEAKER) 0.70 K/ L 0.24-0.36 H (test code = 415) EOSINOPHILS ABSOLUTE COUNT 0.16 K/ L 0.04-0.36 (BEAKER) (test code = 416) BASOPHILS ABSOLUTE COUNT (BEAKER) 0.02 K/ L 0.01-0.08 (test code = 417) IMMATURE GRANULOCYTES-RELATIVE 1 % 0-1 PERCENT (BEAKER) (test code = 2801) BASIC METABOLIC [id number] 23:52:00 Test Item Value Reference Range Interpretation Comments SODIUM (BEAKER) 139 meq/L 136-145 (test code = 381) POTASSIUM (BEAKER) 4.0 meq/L 3.5-5.1 Specimen slightly (test code = 379) hemolyzed CHLORIDE (BEAKER) 103 meq/L 98-107 (test code = 382) CO2 (BEAKER) (test 28 meq/L 22-29 code = 355) BLOOD UREA NITROGEN 12 mg/dL 7-21 (BEAKER) (test code = 354) CREATININE (BEAKER) 0.72 mg/dL 0.57-1.25 Specimen slightly (test code = 358) hemolyzed GLUCOSE RANDOM 193 mg/dL 70-105 H (BEAKER) (test code = 652) CALCIUM (BEAKER) 8.6 mg/dL 8.4-10.2 (test code = 697) EGFR (BEAKER) (test 86 mL/min/1.73 ESTIMA EDOUARD GFR IS code = 1092) sq m NOT ACCURATE CREATININE CLEARANCE IN PREDICTING GLOMERULAR FILTRATION RATE . ESTIMATED GFR I S NOT APPLICABLE FOR DIALYSIS PATIEN TS. SODIUM, RANDOM [id number] 23:49:00 Test Item Value Reference Range Interpretation Comments SODIUM URINE (BEAKER) (test code = < meq/L 243) Reference Range: No NormalsCBC W/PLT COUNT & AUTO [id number] 23:35:00 Test Item Value Reference Range Interpretation Comments WHITE BLOOD CELL COUNT (BEAKER) 9.7 K/ L 3.5-10.5 (test code = 775) RED BLOOD CELL COUNT (BEAKER) 4.46 M/ L 3.93-5.22 (test code = 761) HEMOGLOBIN (BEAKER) (test code = 12.2 GM/DL 11.2-15.7 410) HEMATOCRIT (BEAKER) (test code = 37.8 % 34.1-44.9 411) MEAN CORPUSCULAR VOLUME (BEAKER) 84.8 fL 79.4-94.8 (test code = 753) MEAN CORPUSCULAR HEMOGLOBIN 27.4 pg 25.6-32.2 (BEAKER) (test code = 751) MEAN CORPUSCULAR HEMOGLOBIN CONC 32.3 GM/DL 32.2-35.5 (BEAKER) (test code = 752) RED CELL DISTRIBUTION WIDTH 13.0 % 11.7-14.4 (BEAKER) (test code = 412) PLATELET COUNT (BEAKER) (test 210 K/CU MM 150-450 code = 756) MEAN PLATELET VOLUME (BEAKER) 11.4 fL 9.4-12.3 (test code = 754) NUCLEATED RED BLOOD CELLS 0 /100 WBC 0-0 (BEAKER) (test code = 413) NEUTROPHILS RELATIVE PERCENT 61 % (BEAKER) (test code = 429) LYMPHOCYTES RELATIVE PERCENT 28 % (BEAKER) (test code = 430) MONOCYTES RELATIVE PERCENT 8 % (BEAKER) (test code = 431) EOSINOPHILS RELATIVE PERCENT 2 % (BEAKER) (test code = 432) BASOPHILS RELATIVE PERCENT 0 % (BEAKER) (test code = 437) NEUTROPHILS ABSOLUTE COUNT 5.87 K/ L 1.56-6.13 (BEAKER) (test code = 670) LYMPHOCYTES ABSOLUTE COUNT 2.72 K/ L 1.18-3.74 (BEAKER) (test code = 414) MONOCYTES ABSOLUTE COUNT (BEAKER) 0.80 K/ L 0.24-0.36 H (test code = 415) EOSINOPHILS ABSOLUTE COUNT 0.22 K/ L 0.04-0.36 (BEAKER) (test code = 416) BASOPHILS ABSOLUTE COUNT (BEAKER) 0.03 K/ L 0.01-0.08 (test code = 417) IMMATURE GRANULOCYTES-RELATIVE 1 % 0-1 PERCENT (BEAKER) (test code = 2801) CT, BRAIN, WITHOUT [id number] 22:57:00FINAL REPORT CT Head without contrast CLINICAL [...] Gamboa Verified Date/Time: 06/26/2018 22:57:28 Reading Location: [address] -GLUCOSE [id number] 21:07:00 Test Item Value Reference Range Interpretation Comments POC-GLUCOSE METER 211 mg/dL 70-[address] [facility] [address] (BEAKER) (test code = [place] 1538) [id number] BASIC METABOLIC [id number] 14:29:00 Test Item Value Reference Range Interpretation Comments SODIUM (BEAKER) 137 meq/L 136-145 (test code = 381) POTASSIUM (BEAKER) 3.6 meq/L 3.5-5.1 (test code = 379) CHLORIDE (BEAKER) 100 meq/L 98-107 (test code = 382) CO2 (BEAKER) (test 32 meq/L 22-29 H code = 355) BLOOD UREA NITROGEN 12 mg/dL 7-21 (BEAKER) (test code = 354) CREATININE (BEAKER) 0.71 mg/dL 0.57-1.25 (test code = 358) GLUCOSE RANDOM 182 mg/dL 70-105 H (BEAKER) (test code = 652) CALCIUM (BEAKER) 8.7 mg/dL 8.4-10.2 (test code = 697) EGFR (BEAKER) (test 88 mL/min/1.73 ESTIMA EDOUARD GFR IS code = 1092) sq m NOT ACCURATE CREATININE CLEARANCE IN PREDICTING GLOMERULAR FILTRATION RATE . ESTIMATED GFR I S NOT APPLICABLE FOR DIALYSIS PATIEN TS. CBC W/PLT COUNT & AUTO [id number] 14:25:00 Test Item Value Reference Range Interpretation Comments WHITE BLOOD CELL COUNT (BEAKER) 12.3 K/ L 3.5-10.5 H (test code = 775) RED BLOOD CELL COUNT (BEAKER) 4.76 M/ L 3.93-5.22 (test code = 761) HEMOGLOBIN (BEAKER) (test code = 13.1 GM/DL 11.2-15.7 410) HEMATOCRIT (BEAKER) (test code = 40.6 % 34.1-44.9 411) MEAN CORPUSCULAR VOLUME (BEAKER) 85.3 fL 79.4-94.8 (test code = 753) MEAN CORPUSCULAR HEMOGLOBIN 27.5 pg 25.6-32.2 (BEAKER) (test code = 751) MEAN CORPUSCULAR HEMOGLOBIN CONC 32.3 GM/DL 32.2-35.5 (BEAKER) (test code = 752) RED CELL DISTRIBUTION WIDTH 13.1 % 11.7-14.4 (BEAKER) (test code = 412) PLATELET COUNT (BEAKER) (test 254 K/CU MM 150-450 code = 756) MEAN PLATELET VOLUME (BEAKER) 11.1 fL 9.4-12.3 (test code = 754) NUCLEATED RED BLOOD CELLS 0 /100 WBC 0-0 (BEAKER) (test code = 413) NEUTROPHILS RELATIVE PERCENT 68 % (BEAKER) (test code = 429) LYMPHOCYTES RELATIVE PERCENT 24 % (BEAKER) (test code = 430) MONOCYTES RELATIVE PERCENT 6 % (BEAKER) (test code = 431) EOSINOPHILS RELATIVE PERCENT 1 % (BEAKER) (test code = 432) BASOPHILS RELATIVE PERCENT 0 % (BEAKER) (test code = 437) NEUTROPHILS ABSOLUTE COUNT 8.42 K/ L 1.56-6.13 H (BEAKER) (test code = 670) LYMPHOCYTES ABSOLUTE COUNT 2.90 K/ L 1.18-3.74 (BEAKER) (test code = 414) MONOCYTES ABSOLUTE COUNT (BEAKER) 0.79 K/ L 0.24-0.36 H (test code = 415) EOSINOPHILS ABSOLUTE COUNT 0.07 K/ L 0.04-0.36 (BEAKER) (test code = 416) BASOPHILS ABSOLUTE COUNT (BEAKER) 0.05 K/ L 0.01-0.08 (test code = 417) IMMATURE GRANULOCYTES-RELATIVE 1 % 0-1 PERCENT (BEAKER) (test code = 2801) POCT-GLUCOSE [id number] 13:38:00 Test Item Value Reference Range Interpretation Comments POC-GLUCOSE METER 219 mg/dL 70-[address] [facility] [address] (BEAKER) (test code = [place] 1538) [id number] POCT-GLUCOSE [id number] 12:34:00 Test Item Value Reference Range Interpretation Comments POC-GLUCOSE METER 193 mg/dL 70-110 H TESTED AT [place] [address] (BEAKER) (test code = [place] [facility] 1538) [id number] POCT-GLUCOSE [id number] 16:17:00 Test Item Value Reference Range Interpretation Comments POC-GLUCOSE METER 244 mg/dL 70-110 H TESTED AT [place] [address] (BEAKER) (test code = [place] [facility] 1538) [id number] POCT-GLUCOSE [id number] 12:08:00 Test Item Value Reference Range Interpretation Comments POC-GLUCOSE METER 229 mg/dL 70-110 H TESTED AT [place] [address] ([facility]) (test code = [facility] [place] Jadiel [facility] 1538) [id number] POCT-GLUCOSE [id number] 08:27:00 Test Item Value Reference Range Interpretation Comments POC-GLUCOSE METER 280 mg/dL 70-110 H TESTED AT [place] [address] ([facility]) (test code = [facility] Jadiel [facility] 1538) [address] OSMOLALITY, [id number] 05:16:00 Test Item Value Reference Range Interpretation Comments OSMOLALITY URINE (BEAKER) (test 340 mOsm/kg 40-1,400 code = 614) SPECIFIC GRAVITY, [id number] 04:53:00 Test Item Value Reference Range Interpretation Comments SPECIFIC GRAVITY UA (BEAKER) (test code 1.010 1.001-1.035 = 468) POCT-GLUCOSE [id number] 22:29:00 Test Item Value Reference Range Interpretation Comments POC-GLUCOSE METER 257 mg/dL 70-110 H TESTED AT [place] [address] (BEAKER) (test code = [facility] 1538) [address] BASIC METABOLIC [id number] 17:49:00 Test Item Value Reference Range Interpretation Comments SODIUM (BEAKER) 137 meq/L 136-145 (test code = 381) POTASSIUM (BEAKER) 4.6 meq/L 3.5-5.1 (test code = 379) CHLORIDE (BEAKER) 102 meq/L 98-107 (test code = 382) CO2 (BEAKER) (test 26 meq/L 22-29 code = 355) BLOOD UREA NITROGEN 14 mg/dL 7-21 (BEAKER) (test code = 354) CREATININE (BEAKER) 0.78 mg/dL 0.57-1.25 (test code = 358) GLUCOSE RANDOM 246 mg/dL 70-105 H (BEAKER) (test code = 652) CALCIUM (BEAKER) 8.7 mg/dL 8.4-10.2 (test code = 697) EGFR (BEAKER) (test 79 mL/min/1.73 ESTIMA EDOUARD GFR IS code = 1092) sq m NOT ACCURATE CREATININE CLEARANCE IN PREDICTING GLOMERULAR FILTRATION RATE . ESTIMATED GFR I S NOT APPLICABLE FOR DIALYSIS PATIEN TS. POCT-GLUCOSE [id number] 17:02:00 Test Item Value Reference Range Interpretation Comments POC-GLUCOSE METER 235 mg/dL 70-110 H TESTED AT [place] [address] ([facility]) (test code = [facility] 1538) [id number] POCT-GLUCOSE [id number] 12:06:00 Test Item Value Reference Range Interpretation Comments POC-GLUCOSE METER 249 mg/dL 70-110 H TESTED AT [place] [address] ([facility]) (test code = [facility] 1538) [address] POCT-GLUCOSE [id number] 09:40:00 Test Item Value Reference Range Interpretation Comments POC-GLUCOSE METER 278 mg/dL 70-110 H TESTED AT [place] [address] ([facility]) (test code = [facility] 1538) [id number] BASIC METABOLIC [id number] 06:14:00 Test Item Value Reference Range Interpretation Comments SODIUM (BEAKER) 141 meq/L 136-145 (test code = 381) POTASSIUM (BEAKER) 4.1 meq/L 3.5-5.1 (test code = 379) CHLORIDE (BEAKER) 104 meq/L 98-107 (test code = 382) CO2 (BEAKER) (test 30 meq/L 22-29 H code = 355) BLOOD UREA NITROGEN 14 mg/dL 7-21 (BEAKER) (test code = 354) CREATININE (BEAKER) 0.70 mg/dL 0.57-1.25 (test code = 358) GLUCOSE RANDOM 146 mg/dL 70-105 H (BEAKER) (test code = 652) CALCIUM (BEAKER) 9.4 mg/dL 8.4-10.2 (test code = 697) EGFR (BEAKER) (test 89 mL/min/1.73 ESTIMA EDOUARD GFR IS code = 1092) sq m NOT ACCURATE CREATININE CLEARANCE IN PREDICTING GLOMERULAR FILTRATION RATE . ESTIMATED GFR I S NOT APPLICABLE FOR DIALYSIS PATIEN TS. [id number] 06:03:00 Test Item Value Reference Range Interpretation Comments PROTIME (BEAKER) (test code = 13.8 seconds 11.7-14.7 759) INR (BEAKER) (test code = 370) 1.1 <=5.9 PARTIAL THROMBOPLASTIN TIME 32.0 seconds 22.5-36.0 (BEAKER) (test code = 760) RECOMMENDED COUMADIN/WARFARIN INR THERAPY RANGESSTANDARD DOSE: 2.0 - 3.0 Includes: PROPHYLAXIS forvenous thrombosis, systemic embolization; TREATMENT for venous thrombosis and/or pulmonary embolus.HIGH RISK: Target INR is 2.5-3.5 for patients with mechanical heart valves. SCREEN, [id number] 05:59:00 Test Item Value Reference Range Interpretation Comments TEST URINE ([facility] [place]) (test Negative code = 583) POCT-GLUCOSE [id number] 05:46:00 Test Item Value Reference Range Interpretation Comments POC-GLUCOSE METER 140 mg/dL 70-[address] [facility] ([facility] [place]) (test code = [place] 1533) [address] CBC W/PLT COUNT & AUTO [id number] 05:46:00 Test Item Value Reference Range Interpretation Comments WHITE BLOOD CELL COUNT (AKER) 9.6 K/ L 3.5-10.5 (test code = 775) RED BLOOD CELL COUNT (AKER) 5.00 M/ L 3.93-5.22 (test code = 761) HEMOGLOBIN (BEAKER) (test code = 14.0 GM/DL 11.2-15.7 410) HEMATOCRIT (BEAKER) (test code = 42.1 % 34.1-44.9 411) MEAN CORPUSCULAR VOLUME (AKER) 84.2 fL 79.4-94.8 (test code = 753) MEAN CORPUSCULAR HEMOGLOBIN 28.0 pg 25.6-32.2 (BEAKER) (test code = 751) MEAN CORPUSCULAR HEMOGLOBIN CONC 33.3 GM/DL 32.2-35.5 (BEAKER) (test code = 752) RED CELL DISTRIBUTION WIDTH 13.0 % 11.7-14.4 (BEAKER) (test code = 412) PLATELET COUNT (BEAKER) (test 227 K/CU MM 150-450 code = 756) MEAN PLATELET VOLUME (BEAKER) 11.8 fL 9.4-12.3 (test code = 754) NUCLEATED RED BLOOD CELLS 0 /100 WBC 0-0 (BEAKER) (test code = 413) NEUTROPHILS RELATIVE PERCENT 52 % (BEAKER) (test code = 429) LYMPHOCYTES RELATIVE PERCENT 38 % (BEAKER) (test code = 430) MONOCYTES RELATIVE PERCENT 6 % (BEAKER) (test code = 431) EOSINOPHILS RELATIVE PERCENT 3 % (BEAKER) (test code = 432) BASOPHILS RELATIVE PERCENT 1 % (BEAKER) (test code = 437) NEUTROPHILS ABSOLUTE COUNT 5.03 K/ L 1.56-6.13 (BEAKER) (test code = 670) LYMPHOCYTES ABSOLUTE COUNT 3.62 K/ L 1.18-3.74 (BEAKER) (test code = 414) MONOCYTES ABSOLUTE COUNT (BEAKER) 0.62 K/ L 0.24-0.36 H (test code = 415) EOSINOPHILS ABSOLUTE COUNT 0.27 K/ L 0.04-0.36 (BEAKER) (test code = 416) BASOPHILS ABSOLUTE COUNT (BEAKER) 0.05 K/ L 0.01-0.08 (test code = 417) IMMATURE GRANULOCYTES-RELATIVE 1 % 0-1 PERCENT (BEAKER) (test code = 2801) POCT-GLUCOSE [id number] 21:27:00 Test Item Value Reference Range Interpretation Comments POC-GLUCOSE METER 223 mg/dL 70-[address] [facility] (BEAKER) (test code = [place] 15[address]) [address] POCT-GLUCOSE [id number] 17:26:00 Test Item Value Reference Range Interpretation Comments POC-GLUCOSE METER 223 mg/dL 70-[address] [facility] (BEAKER) (test code = [place] [address] [place] 1538) [address] BASIC METABOLIC [id number] 16:43:00 Test Item Value Reference Range Interpretation Comments SODIUM (BEAKER) 139 meq/L 136-145 (test code = 381) POTASSIUM (BEAKER) 4.5 meq/L 3.5-5.1 Specimen slightly (test code = 379) hemolyzed CHLORIDE (BEAKER) 102 meq/L 98-107 (test code = 382) CO2 (BEAKER) (test 29 meq/L 22-29 code = 355) BLOOD UREA NITROGEN 16 mg/dL 7-21 (BEAKER) (test code = 354) CREATININE (BEAKER) 0.76 mg/dL 0.57-1.25 Specimen slightly (test code = 358) hemolyzed GLUCOSE RANDOM 217 mg/dL 70-105 H (BEAKER) (test code = 652) CALCIUM (BEAKER) 9.6 mg/dL 8.4-10.2 (test code = 697) EGFR (BEAKER) (test 81 mL/min/1.73 ESTIMA EDOUARD GFR IS code = 1092) sq m NOT ACCURATE CREATININE CLEARANCE IN PREDICTING GLOMERULAR FILTRATION RATE . ESTIMATED GFR I S NOT APPLICABLE FOR DIALYSIS PATIEN TS. POCT-GLUCOSE [id number] 09:06:00 Test Item Value Reference Range Interpretation Comments POC-GLUCOSE METER 265 mg/dL 70-110 H TESTED AT [place] [address] ([facility]) (test code = [place] [facility] 1538) [address] POCT-GLUCOSE [id number] 00:22:00 Test Item Value Reference Range Interpretation Comments POC-GLUCOSE METER 210 mg/dL 70-110 H TESTED AT [place] [address] ([facility]) (test code = [place] [facility] 1538) [address] POCT-GLUCOSE [id number] 20:27:00 Test Item Value Reference Range Interpretation Comments POC-GLUCOSE METER 235 mg/dL 70-110 H TESTED AT [place] [address] ([facility]) (test code = [place] [facility] 1538) [address] POCT-GLUCOSE [id number] 17:10:00 Test Item Value Reference Range Interpretation Comments POC-GLUCOSE METER 264 mg/dL 70-110 H TESTED AT [place] [address] ([facility]) (test code = [place] [facility] 1538) [address] POCT-GLUCOSE [id number] 16:00:00 Test Item Value Reference Range Interpretation Comments POC-GLUCOSE METER 242 mg/dL 70-110 H TESTED AT [place] [address] ([facility]) (test code = [place] [facility] 1538) [address] POCT-GLUCOSE [id number] 08:54:00 Test Item Value Reference Range Interpretation Comments POC-GLUCOSE METER 224 mg/dL 70-110 H TESTED AT [place] [address] ([facility]) (test code = [place] [facility] 1538) [address] POCT-GLUCOSE [id number] 21:30:00 Test Item Value Reference Range Interpretation Comments POC-GLUCOSE METER 254 mg/dL 70-110 H TESTED AT [place] [address] ([facility]) (test code = [place] [facility] 1538) [address] POCT-GLUCOSE [id number] 17:23:00 Test Item Value Reference Range Interpretation Comments POC-GLUCOSE METER 193 mg/dL 70-110 H TESTED AT [place] [address] ([facility]) (test code = [place] [facility] 1538) [address] POCT-GLUCOSE [id number] 11:53:00 Test Item Value Reference Range Interpretation Comments POC-GLUCOSE METER 179 mg/dL 70-110 H TESTED AT [place] [address] ([facility]) (test code = [place] [facility] 1538) [address] [id number] 10:15:00 Test Item Value Reference Range Interpretation Comments CORTISOL, TOTAL ([facility]) (test code 4.7 ug/dL 3.7-19.4 = 2755) POCT-GLUCOSE [id number] 08:07:00 Test Item Value Reference Range Interpretation Comments POC-GLUCOSE METER 184 mg/dL 70-110 H TESTED AT [place] [address] ([facility]) (test code = [place] [facility] 1538) [address] CT, BRAIN, WITHOUT [id number] 22:07:00FINAL REPORT CT Head without contrast CLINICAL [...] [place] Verified Date/Time: 06/20/2018 22:07:25 Reading Location: [address] Reading Room POCT-GLUCOSE [id number] 21:00:00 Test Item Value Reference Range Interpretation Comments POC-GLUCOSE METER 227 mg/dL 70-110 H TESTED AT [place] [address] (BEAKER) (test code = [facility] 1538) [address] POCT-GLUCOSE [id number] 16:57:00 Test Item Value Reference Range Interpretation Comments POC-GLUCOSE METER 216 mg/dL 70-[address] [facility] (BEAKER) (test code = [facility] [place] [facility] 1538) [address] POCT-GLUCOSE [id number] 13:11:00 Test Item Value Reference Range Interpretation Comments POC-GLUCOSE METER 198 mg/dL 70-110 H TESTED AT [place] [address] (BEAKER) (test code = [facility] 1538) [address] POCT-GLUCOSE [id number] 07:47:00 Test Item Value Reference Range Interpretation Comments POC-GLUCOSE METER 213 mg/dL 70-[address] [facility] (BEAKER) (test code = [facility] 1538) [address] BASIC METABOLIC [id number] 06:57:00 Test Item Value Reference Range Interpretation Comments SODIUM (BEAKER) 138 meq/L 136-145 (test code = 381) POTASSIUM (BEAKER) 3.9 meq/L 3.5-5.1 (test code = 379) CHLORIDE (BEAKER) 105 meq/L 98-107 (test code = 382) CO2 (BEAKER) (test 24 meq/L 22-29 code = 355) BLOOD UREA NITROGEN 12 mg/dL 7-21 ([facility]) (test code = 354) CREATININE ([facility]) 0.73 mg/dL 0.57-1.25 (test code = 358) GLUCOSE RANDOM 192 mg/dL 70-105 H ([facility]) (test code = 652) CALCIUM ([facility]) 8.8 mg/dL 8.4-10.2 (test code = 697) EGFR ([facility]) (test 85 mL/min/1.73 ESTIMA EDOUARD GFR IS code = 1092) sq m NOT ACCURATE CREATININE CLEARANCE IN PREDICTING GLOMERULAR FILTRATION RATE . ESTIMATED GFR I S NOT APPLICABLE FOR DIALYSIS PATIEN TS. POCT-GLUCOSE [id number] 05:24:00 Test Item Value Reference Range Interpretation Comments POC-GLUCOSE METER 192 mg/dL 70-[address] [facility] [address] ([facility]) (test code = [place] 15[address]) [address] CT, CTANGIO [id number] 01:03:00FINAL REPORT CLINICAL HISTORY: Stroke TECHNIQUE: Initially, [...] [place]oa Verified Date/Time: 06/20/2018 01:03:44 Reading Location: [address] Transitional Reading [facility] CAR[facility] ANG[facility] 2018-06-20 01:03:00FINAL REPORT CLINICAL [...] [place] Verified Date/Time: 06/20/2018 01:03:44 Reading Location: [address] Transitional Reading Room POCT-GLUCOSE METER 2018-06-20 00:40:00 Test Item Value Reference Range Interpretation Comments POC-GLUCOSE METER 283 mg/dL 70-110 H TESTED AT [place] [address] ([facility]) (test code = [facility] 1538) [address] POCT-GLUCOSE [id number] 21:21:00 Test Item Value Reference Range Interpretation Comments POC-GLUCOSE METER 343 mg/dL 70-110 H TESTED AT [place] [address] ([facility]) (test code = [facility] 1538) [address] SCREEN, [id number] 18:52:00 Test Item Value Reference Range Interpretation Comments TEST URINE ([facility]) (test Negative code = 583) POCT-GLUCOSE [id number] 17:17:00 Test Item Value Reference Range Interpretation Comments POC-GLUCOSE METER 287 mg/dL 70-110 H TESTED AT [place] [address] ([facility]) (test code = [facility] 1538) [address] [id number] 15:59:00 Test Item Value Reference Range Interpretation Comments RPR SCREEN (BEAKER) (test code = Nonreactive Nonreactive 420) POCT-GLUCOSE [id number] 15:07:00 Test Item Value Reference Range Interpretation Comments POC-GLUCOSE METER 323 mg/dL 70-[address] [facility] [address] (BEAKER) (test code = [place] 1538) [address] T4, [id number] 13:11:00 Test Item Value Reference Range Interpretation Comments FREE T4 (BEAKER) (test code = 655) 0.89 ng/dL 0.70-1.48 HIV-1 ANTIGEN WITH HIV-1/2 [id number] 13:11:00 Test Item Value Reference Range Interpretation Comments HIV-1 ANTIGEN WITH HIV 1\\T\\2 Nonreactive Nonreactive ANTIBODY (2) (BEAKER) (test code = 2586) RAPID DRUG SCREEN, [id number] 12:47:00 Test Item Value Reference Range Interpretation Comments BARBITURATE URINE (BEAKER) (test Negative Negative code = 725) BENZODIAZEPINE SCREEN URINE (BEAKER) Negative Negative (test code = 726) COCAINE (METAB.) SCREEN (BEAKER) Negative Negative (test code = 1164) METHADONE SCREEN (BEAKER) (test code Negative Negative = 1436) OPIATE SCREEN URINE (BEAKER) (test Negative Negative code = 734) CANNABINOID SCREEN URINE (BEAKER) Negative Negative (test code = 727) AMPH/METHAMPH SCREEN (BEAKER) (test Negative Negative code = 1438) PHENCYCLIDINE SCREEN URINE (BEAKER) Negative Negative (test code = 608) OXYCODONE SCREEN URINE (BEAKER) Negative Negative (test code = 2761) DRUG CUTOFF CONC.Cocaine 300 ng/mL Cannabinoid 50 ng/mL Benzodiazepine 200 ng/mLBarbiturate 200 ng/mLPhencyclidine 25 ng/mLOpiate 300 ng/mLMethadone 300 ng/mLAmphetamine/ 1000 ng/mL MethamphetamineOxycodone 300 ng/mLThis assay provides an unconfirmed qualitative test result for the clinical management of patients in emergency situations. Chain of custody not maintained. Some deps-vwn-vsyjpng medications, as well as adulterants, may cause inaccurate results. Clinical correlation should be applied. A more comprehensive drug screen or confirmation of a detected drug may be performed upon request. POCT-GLUCOSE [id number] 12:37:00 Test Item Value Reference Range Interpretation Comments POC-GLUCOSE METER 292 mg/dL 70-[address] [facility] [address] (BEAKER) (test code = [place] 1538) [address] HEMOGLOBIN [id number] 12:35:00 Test Item Value Reference Range Interpretation Comments HEMOGLOBIN A1C (BEAKER) (test code = 7.9 % 4.3-6.1 H 368) OSMOLALITY, [id number] 12:34:00 Test Item Value Reference Range Interpretation Comments OSMOLALITY, SERUM (BEAKER) (test 310 mOsm/kg 275-295 H code = 615) C-REACTIVE [id number] 12:28:00 Test Item Value Reference Range Interpretation Comments C-REACTIVE PROTEIN (BEAKER) (test 0.81 mg/dL 0.00-0.50 H code = 676) OSMOLALITY, [id number] 12:22:00 Test Item Value Reference Range Interpretation Comments OSMOLALITY URINE (BEAKER) (test 247 mOsm/kg 40-1,400 code = 614) CBC W/PLT COUNT & AUTO [id number] 12:14:00 Test Item Value Reference Range Interpretation Comments WHITE BLOOD CELL COUNT (BEAKER) 15.1 K/ L 3.5-10.5 H (test code = 775) RED BLOOD CELL COUNT (BEAKER) 5.15 M/ L 3.93-5.22 (test code = 761) HEMOGLOBIN (BEAKER) (test code = 14.1 GM/DL 11.2-15.7 410) HEMATOCRIT (BEAKER) (test code = 42.3 % 34.1-44.9 411) MEAN CORPUSCULAR VOLUME (BEAKER) 82.1 fL 79.4-94.8 (test code = 753) MEAN CORPUSCULAR HEMOGLOBIN 27.4 pg 25.6-32.2 (BEAKER) (test code = 751) MEAN CORPUSCULAR HEMOGLOBIN CONC 33.3 GM/DL 32.2-35.5 (BEAKER) (test code = 752) RED CELL DISTRIBUTION WIDTH 12.9 % 11.7-14.4 (BEAKER) (test code = 412) PLATELET COUNT (BEAKER) (test 278 K/CU MM 150-450 code = 756) MEAN PLATELET VOLUME (BEAKER) 11.5 fL 9.4-12.3 (test code = 754) NUCLEATED RED BLOOD CELLS 0 /100 WBC 0-0 (BEAKER) (test code = 413) NEUTROPHILS RELATIVE PERCENT 87 % (BEAKER) (test code = 429) LYMPHOCYTES RELATIVE PERCENT 10 % (BEAKER) (test code = 430) MONOCYTES RELATIVE PERCENT 3 % (BEAKER) (test code = 431) EOSINOPHILS RELATIVE PERCENT 0 % (BEAKER) (test code = 432) BASOPHILS RELATIVE PERCENT 0 % (BEAKER) (test code = 437) NEUTROPHILS ABSOLUTE COUNT 13.06 K/ L 1.56-6.13 H (BEAKER) (test code = 670) LYMPHOCYTES ABSOLUTE COUNT 1.51 K/ L 1.18-3.74 (BEAKER) (test code = 414) MONOCYTES ABSOLUTE COUNT (BEAKER) 0.38 K/ L 0.24-0.36 H (test code = 415) EOSINOPHILS ABSOLUTE COUNT 0.00 K/ L 0.04-0.36 L (BEAKER) (test code = 416) BASOPHILS ABSOLUTE COUNT (BEAKER) 0.02 K/ L 0.01-0.08 (test code = 417) IMMATURE GRANULOCYTES-RELATIVE 1 % 0-1 PERCENT (BEAKER) (test code = 2801) POCT-GLUCOSE [id number] 10:30:00 Test Item Value Reference Range Interpretation Comments POC-GLUCOSE METER 341 mg/dL 70-110 H TESTED AT [place] [address] ([facility]) (test code = [place] 1538) [address] [id number] 06:17:00 Test Item Value Reference Range Interpretation Comments PROLACTIN (BEAKER) (test code = 23.34 ng/mL 5.18-26.53 758) POCT-GLUCOSE [id number] 05:55:00 Test Item Value Reference Range Interpretation Comments POC-GLUCOSE METER 285 mg/dL 70-110 H TESTED AT [place] [address] ([facility]) (test code = [place] [facility] 1538) [address] MR, BRAIN, [id number] 02:25:00Pituitary protocolCr 0.6FINAL REPORT MRI brain with and without contrast Comparison: None. 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 Signed: Narcisa Mcdonald Verified Date/Time: 06/19/2018 02:25:15 Reading Location: [facility] C013Y CT Body Reading Room TSH/FREE T4 IF [id number] 00:26:00 Test Item Value Reference Range Interpretation Comments THYROID STIMULATING HORMONE 0.41 uIU/mL 0.35-4.94 (BEAKER) (test code = 772) BASIC METABOLIC [id number] 00:07:00 Test Item Value Reference Range Interpretation Comments SODIUM (BEAKER) 136 meq/L 136-145 (test code = 381) POTASSIUM (BEAKER) 4.0 meq/L 3.5-5.1 (test code = 379) CHLORIDE (BEAKER) 103 meq/L 98-107 (test code = 382) CO2 (BEAKER) (test 20 meq/L 22-29 L code = 355) BLOOD UREA NITROGEN 11 mg/dL 7-21 (BEAKER) (test code = 354) CREATININE (BEAKER) 0.84 mg/dL 0.57-1.25 (test code = 358) GLUCOSE RANDOM 357 mg/dL 70-105 H (BEAKER) (test code = 652) CALCIUM (BEAKER) 9.0 mg/dL 8.4-10.2 (test code = 697) EGFR (BEAKER) (test 72 mL/min/1.73 ESTIMA EDOUARD GFR IS code = 1092) sq m NOT ACCURATE CREATININE CLEARANCE IN PREDICTING GLOMERULAR FILTRATION RATE . ESTIMATED GFR I S NOT APPLICABLE FOR DIALYSIS PATIEN TS. URINALYSIS W/ REFLEX URINE [id number] 23:13:00 Test Item Value Reference Range Interpretation Comments COLOR (BEAKER) (test code = 470) Yellow CLARITY (BEAKER) (test code = Clear 469) SPECIFIC GRAVITY UA (BEAKER) 1.011 1.001-1.035 (test code = 468) PH UA (BEAKER) (test code = 467) 5.0 5.0-8.0 PROTEIN UA (BEAKER) (test code = Negative Negative 464) GLUCOSE UA (BEAKER) (test code = >1000 mg/dL Negative A 365) KETONES UA (BEAKER) (test code = 20 mg/dL Negative A 371) BILIRUBIN UA (BEAKER) (test code Negative Negative = 462) BLOOD UA (BEAKER) (test code = Negative Negative 461) NITRITE UA (BEAKER) (test code = Negative Negative 465) LEUKOCYTE ESTERASE UA (BEAKER) Negative Negative (test code = 466) UROBILINOGEN UA (BEAKER) (test 0.2 mg/dL 0.2-1.0 code = 463) RBC UA (BEAKER) (test code = 519) < /HPF WBC UA (BEAKER) (test code = 520) < /HPF SQUAMOUS EPITHELIAL (BEAKER) < /HPF (test code = 516) SOURCE(BEAKER) (test code = 6684)
--- OUTSIDE RECORDS SUMMARY | 2020-01-06 13:52 | XMS REPORT ---
[...] Dosage System Date Date Metformin HCl ND 08928138876 1000 MG Orally Aug 07, Active 1 tablet Once a day 2019 with a meal GlyBURIDE ND 63818261849 5 MG Active TAKE 2 TABLETS BY MOUTH TWICE A DAY WITH A MEAL Novolin N [facility] [address]-47 100 UNIT/ML Active 17 u nits Subcutaneous Twice a day Nitrofurantoin ND 59357563966 100 MG Oral Active T NELSON 1 Monohyd Macro CAPSULE BY MOUTH EVERY 12 HOURS FOR 7 DAYS Losartan Potassium ND 41872911301 100 MG Orally October priyanka 1 tablet Once a day 2019 Hydrochlorothiazide ND 00661452269 12.5 MG Orally October ctive 1 capsule Once a day , in the 2019 morning MetFORMIN HCl ER [facility] 53914865931 750 MG Orally Activ e 1 tablet Once a day with evening meal Hydrocortisone [facility] 04706030851 10 MG Orally Active 1 tablet every 12 hrs with food or milk Levothyroxine Sodium [facility] 72492923034 88 MCG Oral Act priyanka TAKE 1 TABLET BY MOUTH EVERY MORNING Meclizine HCl [facility] 75376534175 25 MG Oral Active KARLO E 1 TABLET BY MOUTH EVERY 8 HOURS NEEDED Results Name Result Date Reference Range Unit Abnormali ty Flag HEMOGLOBIN A1C ----A1C 10.7 [id number] Summary Purpose eClinicalWorks Submission
--- OUTSIDE RECORDS SUMMARY | 2020-01-06 13:52 | XMS REPORT ---
[...] End Status Dosage System Date Date Levothyroxine [facility] 47808161111 100 MCG Oral Active 1 tablet Sodium Once a day in the morning on an empty stomach Results No Known Results Summary Purpose [facility] Submission
[2020-01-06] MEDS ORDERED: IBUPROFEN 400 MG TAB ONE (14:35)
--- NOTE | 2020-01-06 14:38 | ER ---
Nurse's Notes [facility] Name: Chantal Stout Age: 49 yrs Sex: Female : 1970 Arrival Date: 01/06/2020 Time: 11:41 Bed 23 Private MD: Diagnosis: Tremor, unspecified Presentation: 01/05 11:47 Chief complaint: Patient states: Sudden onset of shaking, REYNA and back pain. Thought her ll1 sugar might be low, drank a coke. Takes hydrocortisone for pituitary tumor removal, took a extra hydrocortisone. States she feels better now. REYNA and back pain still. Coronavirus screen: Proceed with normal triage. Patient denies a cough. Patient denies shortness of breath or difficulty breathing. Patient denies measured and/or subjective temperature greater than 100.4F prior to today's visit. Patient denies travel on a cruise ship or to a country the [facility] currently lists as an affected area. Patient denies contact with known and/or suspected case of COVID-19. Ebola Screen: Patient denies travel to an Ebola-affected area in the 21 days before illness onset. Initial Sepsis Screen: Does the patient meet any 2 criteria? HR > 90 bpm. No. Patient's initial sepsis screen is negative. Does the patient have a suspected source of infection? No. Patient's initial sepsis screen is negative. Risk Assessment: Do you want to hurt yourself or someone else? Patient reports no desire to harm self or others. Onset of symptoms was January 06, 2020. 11:47 Method Of Arrival: Ambulatory ll1 11:47 Acuity: NOÉ 3 ll1 DEMI CHEF: 12:54 LMP N/A - Post-menopause ll1 Historical: - Allergies: 11:52 Bactrim; ll1 11:52 Cephalexin; ll1 11:52 Codeine; ll1 11:52 Iodine; ll1 11:52 Levaquin; ll1 11:52 Sulfa (Sulfonamide Antibiotics); ll1 - PMHx: 11:52 Hypothyroidism; Diabetes - NIDDM; pituitary tumor- surgically removed Jun 24; ll1 Hypertension; ADD/ADHD; Anemia; Asthma; - Immunization history:: Adult Immunizations up to date. - Social history:: Smoking status: Patient/guardian denies using tobacco, the patient reports quitting approximately 10 years ago, Patient/guardian denies using alcohol, street drugs. - Family history:: not pertinent. Screenin:54 Abuse screen: Denies threats or abuse. Nutritional screening: No deficits noted. ll1 Tuberculosis screening: No symptoms or risk factors identified. Fall Risk IV access (20 points). Total Byrd Fall Scale indicates No Risk (0-24 pts). Assessment: 11:42 General: Appears in no apparent distress. Behavior is calm, cooperative, appropriate ll1 for age. Pain: Denies pain. Neuro: Level of Consciousness is awake, alert, obeys commands, Oriented to person, place, time, situation, Appropriate for age Ball Maker are equal bilaterally Moves all extremities. Full function Gait is steady, Speech is normal, Facial symmetry appears normal, Reports headache. Cardiovascular: No deficits noted. Respiratory: No deficits noted. Airway is patent Trachea midline Respiratory effort is even, unlabored, Respiratory pattern is regular, symmetrical, Breath sounds are clear bilaterally. GI: Abdomen is flat, Bowel sounds present X 4 quads. Abd is soft and non tender X 4 quads. Reports nausea. : No deficits noted. Musculoskeletal: Circulation, motion, and sensation intact. Capillary refill < 3 seconds, Reports pain in back. 12:42 Reassessment: Patient appears in no apparent distress at this time. No changes from ll1 previously documented assessment. Patient and/or family updated on plan of care and expected duration. Pain level reassessed. Patient is alert, oriented x 3, equal unlabored respirations, skin warm/dry/pink. 13:42 Reassessment: Patient appears in no apparent distress at this time. No changes from ll1 previously documented assessment. Patient and/or family updated on plan of care and expected duration. Pain level reassessed. Patient is alert, oriented x 3, equal unlabored respirations, skin warm/dry/pink. 14:44 Reassessment: Patient appears in no apparent distress at this time. Patient and/or vc family updated on plan of care and expected duration. Pain level reassessed. Patient is alert, oriented x 3, equal unlabored respirations, skin warm/dry/pink. Patient states feeling better. Patient states symptoms have improved. Pain: Complains of pain in head. Vital Signs: 11:47 BP 155 / 99; Pulse 90; Resp 18; Temp 98.9; Pulse Ox 96% ; Pain 6/10; ll1 12:15 BP 148 / 86; Pulse 93; Resp 18; Pulse Ox 94% ; ll1 13:08 BP 154 / 76; Pulse 95; Resp 18; Pulse Ox 95% ; ll1 14:30 BP 151 / 93; Pulse 93; Resp 18; Pulse Ox 97% on R/A; vc ED Course: 11:41 Patient arrived in ED. ll1 11:47 Pretty Rogers, RN is Primary Nurse. ll1 11:50 Triage completed. ll1 11:52 Arm band placed on Patient placed in an exam room, on a stretcher. ll1 12:07 Marco Vargas MD is Attending Physician. manuela 12:26 Urine collected: clean catch specimen, clear, mariah colored. jp3 12:38 XRAY Chest (1 view) In Process Unspecified. EDMS 12:38 EKG done, by vehicle modification technician. reviewed by Marco Vargas MD. at1 12:54 Patient has correct armband on for positive identification. Bed in low position. Call ll1 light in reach. Side rails up X 1. 14:37 Ruslan Garibay MD is Referral Physician. manuela 14:44 No provider procedures requiring assistance completed. vc 14:57 IV discontinued, intact, bleeding controlled, No redness/swelling at site. Pressure vc dressing applied. Administered Medications: 14:42 Drug: Motrin 400 mg Route: PO; vc 14:57 Follow up: Response: No adverse reaction vc Outcome: 14:38 Discharge ordered by . manuela 14:56 Discharged to home ambulatory. vc 14:56 Condition: good 14:56 Discharge instructions given to patient, Instructed on discharge instructions, follow up and referral plans. Demonstrated understanding of instructions, follow-up care. 15:02 Patient left the ED. vc Signatures: Dispatcher [employer] EDCO Marco Vargas MD MD cha Gonzales, Amanda, psychology associate EKG Tat1 Alton Boss jp3 Sita Fung RN RN vc Pretty Rogers, ALCIDES RN ll1
--- NOTE | 2020-01-06 14:38 | EDPHYS ---
Physician Documentation [facility] Name: Chantal Stout Age: 49 yrs Sex: Female : 1970 Arrival Date: 01/06/2020 Time: 11:41 Bed 23 Private MD: KRUPA Physician Marco Vargas HPI: 01/05 14:31 This 49 yrs old Female presents to ER via Ambulatory with complaints of manuela Tremor. 14:31 weakness and shaking all over. Onset: The symptoms/episode began/occurred just prior to [facility] arrival. Severity of symptoms: At their worst the symptoms were moderate in the emergency department the symptoms have resolved and did so just prior to arrival. The patient has not experienced similar symptoms in the past. 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 - Social history:: Smoking status: Patient/guardian denies using tobacco, the patient reports quitting approximately 10 years ago, Patient/guardian denies using alcohol, street drugs. - Family history:: not pertinent. ROS: 14:31 Constitutional: Negative for fever, chills, and weight loss, Eyes: Negative for injury, manuela pain, redness, and discharge, ENT: Negative for injury, pain, and discharge, Neck: Negative for injury, pain, and swelling, Cardiovascular: Negative for chest pain, palpitations, and edema, Respiratory: Negative for shortness of breath, cough, wheezing, and pleuritic chest pain, Abdomen/GI: Negative for abdominal pain, nausea, vomiting, diarrhea, and constipation, Back: Negative for injury and pain, : Negative for injury, bleeding, discharge, and swelling, MS/Extremity: Negative for injury and deformity, Skin: Negative for injury, rash, and discoloration, Psych: Negative for depression, anxiety, suicide ideation, homicidal ideation, and hallucinations, Allergy/Immunology: Negative for hives, rash, and allergies, Endocrine: Negative for neck swelling, polydipsia, polyuria, polyphagia, and marked weight changes. 14:31 Neuro: Positive for weakness, shaking. Exam: 14:31 Constitutional: This is a well developed, well nourished patient who is awake, alert, manuela and in no acute distress. Head/Face: Normocephalic, atraumatic. Eyes: Pupils equal round and reactive to light, extra-ocular motions intact. Lids and lashes normal. Conjunctiva and sclera are non-icteric and not injected. Cornea within normal limits. Periorbital areas with no swelling, redness, or edema. ENT: Nares patent. No nasal discharge, no septal abnormalities noted. Tympanic membranes are normal and external auditory canals are clear. Oropharynx with no redness, swelling, or masses, exudates, or evidence of obstruction, uvula midline. Mucous membranes moist. Neck: Trachea midline, no thyromegaly or masses palpated, and no cervical lymphadenopathy. Supple, full range of motion without nuchal rigidity, or vertebral point tenderness. No Meningismus. Chest/axilla: Normal chest wall appearance and motion. Nontender with no deformity. No lesions are appreciated. Cardiovascular: Regular rate and rhythm with a normal S1 and S2. No gallops, murmurs, or rubs. Normal PMI, no JVD. No pulse deficits. Respiratory: Lungs have equal breath sounds bilaterally, clear to auscultation and percussion. No rales, rhonchi or wheezes noted. No increased work of breathing, no retractions or nasal flaring. Abdomen/GI: Soft, non-tender, with normal bowel sounds. No distension or tympany. No guarding or rebound. No evidence of tenderness throughout. Back: No spinal tenderness. No costovertebral tenderness. Full range of motion. Skin: Warm, dry with normal turgor. Normal color with no rashes, no lesions, and no evidence of cellulitis. MS/ Extremity: Pulses equal, no cyanosis. Neurovascular intact. Full, normal range of motion. Neuro: Awake and alert, GCS 15, oriented to person, place, time, and situation. Cranial nerves II-XII grossly intact. Motor strength 5/5 in all extremities. Sensory grossly intact. Cerebellar exam normal. Normal gait. Psych: Awake, alert, with orientation to person, place and time. Behavior, mood, and affect are within normal limits. 14:31 Musculoskeletal/extremity: DVT Exam: No signs of deep vein thrombosis. no pain, no swelling, no tenderness, negative Homans' sign noted on exam, no appreciated bluish discoloration, no erythema, no increased warmth. 14:41 Constitutional: The patient appears in no acute distress, alert, awake, comfortable, manuela non-diaphoretic, non-toxic, well developed, well hydrated, well groomed, well nourished. 14:41 ECG was reviewed by the Attending Physician. Vital Signs: 11:47 BP 155 / 99; Pulse 90; Resp 18; Temp 98.9; Pulse Ox 96% ; Pain 6/10; ll1 12:15 BP 148 / 86; Pulse 93; Resp 18; Pulse Ox 94% ; ll1 13:08 BP 154 / 76; Pulse 95; Resp 18; Pulse Ox 95% ; ll1 14:30 BP 151 / 93; Pulse 93; Resp 18; Pulse Ox 97% on R/A; vc MDM: 12:[address] [facility] 14:34 Differential Diagnosis. Data reviewed: vital signs, nurses notes, lab test result(s), manuela EKG, radiologic studies. Data interpreted: neuropathologist: rate is 95 beats/min, rhythm is regular, with unifocal PVCs. Test interpretation: by ED physician or midlevel provider: ECG. 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 Response to treatment: the patient's symptoms have markedly improved after treatment. 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 01/05 12:08 Order name: Basic Metabolic Panel; Complete Time: 14:24 [facility] 01/05 12:08 Order name: CBC with Diff; Complete Time: 14:24 [facility] 01/05 12:08 Order name: LFT's; Complete Time: 14:24 [facility] 01/05 12:08 Order name: Magnesium; Complete Time: 14:24 [facility] 01/05 12:08 Order name: NT PRO-BNP; Complete Time: 14:24 [facility] 01/05 12:08 Order name: Troponin (emerg Dept Use Only); Complete Time: 14:24 [facility] 01/05 12:08 Order name: XRAY Chest (1 view); Complete Time: 14:24 [facility] 01/05 12:08 Order name: EKG; Complete Time: 12:09 [facility] 01/05 12:08 Order name: Cardiac monitoring; Complete Time: 12:53 [facility] 01/05 12:08 Order name: EKG - Nurse/Tech; Complete Time: 12:53 [facility] 01/05 12:08 Order name: IV Saline Lock; Complete Time: 12:53 [facility] 01/05 12:32 Order name: Urine Dipstick--Ancillary (enter results); Complete Time: 14:24 01/05 12:32 Order name: Urine --Ancillary (enter results); Complete Time: 14:24 01/05 12:08 Order name: Labs collected and sent; Complete Time: 12:53 [facility] 01/05 12:08 Order name: O2 Per Protocol; Complete Time: 12:53 [facility] 01/05 12:08 Order name: O2 Sat Monitoring; Complete Time: 12:53 [facility] 01/05 12:09 Order name: Urine Dipstick-Ancillary (obtain specimen); Complete Time: 12:25 manuela EC:41 Rate is 92 beats/min. Rhythm is regular. QRS Bellamy is Normal. FL interval is normal. QRS manuela interval is normal. QT interval is normal. No Q waves. T waves are Normal. No ST changes noted. Clinical impression: No evidence of ischemia. Interpreted by me. Reviewed by me. Administered Medications: 14:42 Drug: Motrin 400 mg Route: PO; vc 14:57 Follow up: Response: No adverse reaction vc Disposition: 01/06/20 14:38 Discharged to Home. Impression: Tremor, unspecified. - Condition is Stable. - Discharge Instructions: Premature Ventricular Contraction, Tremor, Weakness, Weakness, Ihyc-wz-Oorm, Aspirin and Your Heart. - Medication Reconciliation Form, Thank You Letter, Antibiotic Education, Prescription Opioid Use form. - Follow up: Private Physician; When: 2 - 3 days; Reason: Recheck today's complaints, Continuance of care, Re-evaluation by your physician. Follow up: Ruslan Garibay MD; When: 2 - 3 days; Reason: Recheck today's complaints, Continuance of care, Re-evaluation by your physician. - Problem is new. - Symptoms have improved. Signatures: Dispatcher [employer] EDMarco Seaman MD MD cha Calcote, Vanessa, RN RN Pretty Tom RN RN ll1 Corrections: (The following items were deleted from the chart) 15:02 14:38 01/06/2020 14:38 Discharged to Home. Impression: Tremor, unspecified. Condition vc is Stable. Forms are Medication Reconciliation Form, Thank You Letter, Antibiotic Education, Prescription Opioid Use. Follow up: Private Physician; When: 2 - 3 days; Reason: Recheck today's complaints, Continuance of care, Re-evaluation by your physician. Follow up: Ruslan Garibay; When: 2 - 3 days; Reason: Recheck today's complaints, Continuance of care, Re-evaluation by your physician. Problem is new. Symptoms have improved. manuela
[2020-01-06 15:14] VITALS: TEMP 98.9
[2020-01-06 15:18] VITALS: BP 151/93; O2SAT 97
--- NOTE | 2020-01-07 06:27 | EKG ---
Test Date: 2020-01-06 Test Time: 12:35:48 Reclamation Supervisor: MONICA MEASUREMENT RESULTS: Intervals: Rate: 92 AL: 134 QRSD: 80 QT: 370 QTc: 457 Au Train: P: 70 AL: 134 QRS: 59 T: 50 INTERPRETIVE STATEMENTS: Sinus rhythm with frequent premature ventricular complexes Otherwise normal ECG Compared to ECG 11/14/2019 13:32:28 Ventricular premature complex(es) now present Electronically Signed On 01-07-20 06:24:31 CDT by Ruslan Garibay
== END 2020-01-06 15:02 | disposition home or self-care (01) ==
LOC: ER 11:40
DX: R25.1 Tremor, unspecified (principal); I10 Essential (primary) hypertension; Z88.1 Allergy status to other antibiotic agents; Z88.2 Allergy status to sulfonamides; Z88.5 Allergy status to narcotic agent; Z91.048 Other nonmedicinal substance allergy status
CPT/HCPCS: 36415; 71045; 80048; 80076; 81003; 81025; 83735; 83880; 84484; 85025; 93005; 99284

== ENCOUNTER 2020-01-07 06:39 | Emergency (ER) | payer BC ==
--- OUTSIDE RECORDS SUMMARY | 2020-01-07 06:41 | XMS REPORT | Clinical Summary ---
:1970 Author Organization [facility] Address [address] [place] [id number] Care Team Providers Name Role Phone Pcp [...] Nasal 3 packet 5 06/25/2018 A ctive ewwtn-tibuvd-slyjhj route 2 (two) bottle (NEILMED SINUS times [...] Not on file Implants Implanted Type Area Medical Superintendent Device Shelf Model / Identifier Expiration Serial / Date Lot Sealant Durasl Spine 5ml [id number] - [id number] Cement/Fi N/A: INT EGRA LIFESCI 10/21/[id number] / Implanted: Qty: 1 on 06/24/2018 by Alex Ruano MD ller/[place] [employer] / sive [id number] Flseal Vhsd Full Strlprep 10ml [id number] - [id number] Cement/Fi N/A : FUNES:BIOSCI 11/18/2019 [id number] / Implanted: Qty: 1 on 06/24/2018 by Alex Ruano MD ller/[employer] / sive [id number] Graft Matrix Dura 1x3 [id number] - [id number] Neuro N/A: MEDTRONIC 02/20/2020 [id number] / Implanted: Qty: 1 on 06/24/2018 by Alex Ruano MD Head SURGICAL / NAVIGATION [id number] Results Not on fileafter 01/06/2019 Insurance Payer Benefit Plan / Subscriber ID Type Phone Address Group BLUE CROSS/BLUE BCBS OS xxxxxxxxxxxx PPO [phone] PO ADDI X [id number] SHIELD POS/PPO/[place] [address] Advance Directives Patient has advance care planning documents, and code status on file. For more information, please contact:[address] [phone] Code Status Date Activated Date Inactivated Comments Full Code 06/26/2018 1:38 PM This code status was determined by: Patient Full Code 06/18/2018 8:39 PM 06/26/2018 11:54 AM This code status was determined by: Patient
--- OUTSIDE RECORDS SUMMARY | 2020-01-07 06:42 | XMS REPORT | Continuity of Care Document ---
:1970 Author Organization [facility] t Address [address] [place] [address] Dr. Holbrook [address] [place] [address] Care Team Providers Name Role Phone Pcp [...] [facility] liver [facility] Dental Dental Problem Active [facility] abscess [facility] Vaginal Vaginal Problem Active [facility] Allergies, Adverse Reactions, Alerts Allergy Allergy Status Severity Reaction(s) Onset Inactive Treating Comm ents Source Name Type Date Date Clinician Sulfamet Propensi Active Swelling 2017-[address] [facility] hoxazole ty to 2-05 [facility] adverse 00:00: Medical oprim reaction 00 [place] Cephalex Propensi Active 2017-[address] in ty to 2-05 [facility] - adverse 00:00: Medical reaction 00 [place] Codeine Propensi Active 2017-[address] ty to 2-05 vity [facility] - adverse 00:00: Medical reaction 00 [place] Levoflox Propensi Active 2017-[address] acin ty to 2-05 tions [facility] - adverse 00:00: Medical reaction 00 [place] Monosodi Propensi Active 2017-07 Flushed [facility] um ty to 2-05 face [facility] adverse 00:00: Medical e reaction 00 [place] Ceftriax Propensi Active Rash 2017-[address] one ty to 30 [facility] - adverse 00:00: Medical reaction 00 [place] statin Adverse Active throat [facility] Reaction swelling [facility] clindamy Adverse Active swelling [facility] rajiv Reaction [facility] vancomyc Adverse Active face [facility] in Reaction swelling, [facility] Jardianc Adverse Active severe [facility] e Reaction anxiety [facility] Iodine Adverse Active increases BS [facility] Reaction to [facility] - 400's,skin [facility] Azithrom Adverse Active decreased [facility] ycin Reaction B/P,palpitat [place] - [facility] Lisinopr Adverse Active cough [facility] il Reaction [facility] Fenofibr Adverse Active face [facility] ate Reaction swelling [facility] Bactrim Adverse Active face [facility] Reaction swelling [facility] Levaquin Adverse Active hallucinatio C [facility] St [facility] Family History Family Member Diagnosis Comments Start Date Stop Date Source Natural father Hypertension [facility] Natural mother Diabetes [facility] Natural mother Hypertension [facility] Other Diabetes [facility] Social History Social Habit Start Date Stop Date Quantity Comments Source History SDOH Alcohol [facility] St[facility] Drinks [facility] History SDOH Alcohol [facility] Binge [facility] Sex Assigned At [facility] History SDOH Alcohol 2018-06-18 2018-06-18 2 [facility] 00[facility]00[facility]00 [facility] Smoking Status Start Date Stop Date Source Former smoker 2018-06-24 00:00:00 2018-06-24 00:00:00 [facility] Medications Ordered Filled Start Stop Current Ordering [...] tablet [facility] ne Sodium ne Sodium Evant in the Conc[place] kes - morning on Memoria an empty l stomach Outpati ent Clinics Procedures This patient has no known procedures. Encounters Start End Encounter Admission Attending Care Care Encounter Source Date/Time Date/Time Type Type Clinicians Facility Department ID 2019-11-19 2019-11-19 [facility] [id number] [address] 09:25:00 09:25:00 [facility] Medicine Outpati ent Clinics 2019-11-10 2019-11-10 [facility] [id number] [address] 10:08:00 10:08:00 [facility] Medicine Outpati ent Clinics 2019-11-06 2019-11-06 [facility] [id number] [address] 08:00:00 08:00:00 [facility] Medicine Outpati ent Clinics 2019-10-30 2019-10-30 [facility] [id number] 15:58:00 15:58:00 [facility] Medicine Outpati ent Clinics 2019-10-27 2019-10-27 [facility] [id number] 11:16:00 11:16:00 [facility] Medicine Outpati ent Clinics 2019-08-07 2019-08-07 [facility] [id number] 08:40:00 08:40:00 [facility] Medicine Outpati ent Clinics 2019-05-01 2019-05-01 [facility] [id number] [address] 09:40:00 09:40:00 [facility] Medicine Outpati ent Clinics 2019-01-30 2019-01-30 [facility] [id number] 08:40:00 08:40:00 [facility] Medicine Outpati ent Clinics 2018-10-27 2018-10-27 [facility] [id number] 06:29:00 06:29:00 t [facility] Medicine Outpati ent Clinics 2018-10-22 2018-10-22 [facility] [id number] 13:00:00 13:00:00 t [facility] Medicine Outpati ent Clinics 2018-07-30 2018-07-30 [facility] [id number] [address] 13:30:00 13:30:00 t [facility] Medicine Outpati ent Clinics 2018-07-25 2018-07-25 [facility] [id number] [address] 19:48:00 19:48:00 [facility] Medicine Outpati ent Clinics 2018-03-12 2018-03-12 [facility] [id number] 13:41:00 13:41:00 t [facility] Medicine Outpati ent Clinics 2018-02-27 2018-02-27 [facility] [id number] 14:46:00 14:46:00 t [facility] Medicine Outpati ent Clinics 2018-02-20 2018-02-20 [facility] [id number] 08:30:00 08:30:00 [facility] Medicine Outpati ent Clinics 2018-02-12 2018-02-12 [facility] [id number] 10:45:00 10:45:00 [facility] Medicine Outpati ent Clinics 2018-01-21 2018-01-21 [facility] [id number] 09:00:00 09:00:00 [facility] Medicine Outpati ent Clinics Results Test Description Test Time Test Comments Results Result Sourc e Comments TISSUE EXAM 2018-06-28 Surgical Pathology Report 08:38:00 Case: [id number] Authorizing Provider: Alex Ruano MD Collected: 06/24/2018801 Ordering Location: [address] Received: 06/24/2018 0809 Service Pathologist: Chon Andino MD Specimens: A) - Tumor, pituitary tumor B) - Tumor, pituitary tumor A.PITUITARY GLAND, TRANSSPHENOIDAL 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 PITUITARY GLAND, TRANSSPHENOIDAL HYPOPHYSECTOMY:NULL CELL ADENOMAENTRAPPED ADENOHYPOPHYSIS Signing Pathologist Direct Phone Line: [phone] y signed by Chon Andino MD on 06/28/2018 at 8:38 AMImmunoperoxidase stains performed on the second specimen show that the tumor has no staining for growth hormone, LH, FSH, TSH, prolactin, or ACTH. 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 The MIB-1 proliferation index is less than 1%. 03303 x 2; 56390; 82852; 87176 x 6; 37645Xvamramyk adenoma A. Pituitary tumor; B. Pituitary tumorA. [...] x 0.3 cm aggregate of pink-tariq to hananh-white rubbery friable soft tissue. The specimen is entirely submitted in cassette B1. 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 Henleyformed on A and BThe interpretation of this case included the use of immunohistochemistry or special stains. Immunohistochemistry technical testing was performed at [facility] Pathology Laboratory where it was [...] (test 141 mg/dL 70-110 H TESTED AT [facility] [address] code = 1538) [facility] 7703 0 POCT-GLUCOSE [id number] 12:06:00 Test Item Value Reference Range Interpretation Comments POC-GLUCOSE METER 217 mg/dL 70-110 H TESTED AT [facility] 6720 (BEAKER) (test code = FOX R [facility] 1538) 13499 BASIC METABOLIC [id number] 07:18:00 Test Item Value Reference Range Interpretation [...] PATIEN TS. CBC W/PLT COUNT & AUTO [id number] 06:49:00 Test Item Value Reference Range Interpretation [...] (BEAKER) (test code = 2801) BASIC METABOLIC [id number] 23:52:00 Test Item Value Reference Range Interpretation [...] APPLICABLE FOR DIALYSIS PATIEN TS. SODIUM, RANDOM [id number] 23:49:00 Test Item Value Reference Range Interpretation Comments SODIUM URINE (BEAKER) (test code = < meq/L 243) Reference Range: No NormalsCBC W/PLT COUNT & AUTO [id number] 23:35:00 Test Item Value Reference Range Interpretation [...] (test code = 2801) CT, BRAIN, WITHOUT [id number] 22:57:00FINAL REPORT CT Head without contrast CLINICAL [...] [place]oa Verified Date/Time: 06/26/2018 22:57:28 [address] Location[address] -GLUCOSE [id number] 21:07:00 Test Item Value Reference Range Interpretation Comments POC-GLUCOSE METER 211 mg/dL 70-110 H TESTED AT [facility] 6720 (BEAKER) (test code = [place] 1538) [address] BASIC METABOLIC [id number] 14:29:00 Test Item Value Reference Range Interpretation [...] PATIEN TS. CBC W/PLT COUNT & AUTO [id number] 14:25:00 Test Item Value Reference Range Interpretation [...] PERCENT (BEAKER) (test code = 2801) POCT-GLUCOSE [id number] 13:38:00 Test Item Value Reference Range Interpretation Comments POC-GLUCOSE METER 219 mg/dL 70-110 H TESTED AT [facility] 6720 (BEAKER) (test code = [place] 1538) [address] POCT-GLUCOSE [id number] 12:34:00 Test Item Value Reference Range Interpretation Comments POC-GLUCOSE METER 193 mg/dL 70-110 H TESTED AT [place] [address] (BEAKER) (test code = [place] [facility] 1538) [address] POCT-GLUCOSE [id number] 16:17:00 Test Item Value Reference Range Interpretation Comments POC-GLUCOSE METER 244 mg/dL 70-110 H TESTED AT [place] [address] (BEAKER) (test code = [place] [facility] 1538) [address] POCT-GLUCOSE [id number] 12:08:00 Test Item Value Reference Range Interpretation Comments POC-GLUCOSE METER 229 mg/dL 70-110 H [facility] AT [place] [address] [facility] (test code = [facility] Jadiel [facility] 1538) [address] POCT-GLUCOSE [id number] 08:27:00 Test Item Value Reference Range Interpretation Comments POC-GLUCOSE METER 280 mg/dL 70-110 H TEST[facility] AT [place] [address] ([facility] (test code = [facility] Jdaiel [facility] 1538) [address] OSMOLALITY, [id number] 05:16:00 Test Item Value Reference Range Interpretation Comments OSMOLALITY URINE (BEAKER) (test 340 mOsm/kg 40-1,400 code = 614) SPECIFIC GRAVITY, [id number] 04:53:00 Test Item Value Reference Range Interpretation Comments SPECIFIC GRAVITY UA (BEAKER) (test code 1.010 1.001-1.035 = 468) POCT-GLUCOSE [id number] 22:29:00 Test Item Value Reference Range Interpretation Comments POC-GLUCOSE METER 257 mg/dL 70-110 H TESTED AT [place] [address] (BEAKER) (test code = [facility] 1538) [address] BASIC METABOLIC [id number] 17:49:00 Test Item Value Reference Range Interpretation [...] NOT APPLICABLE FOR DIALYSIS PATIEN TS. POCT-GLUCOSE [id number] 17:02:00 Test Item Value Reference Range Interpretation Comments POC-GLUCOSE METER 235 mg/dL 70-110 H TESTED AT [place] [address] ([facility]) (test code = [facility] 1538) 83[address] POCT-GLUCOSE [id number] 12:06:00 Test Item Value Reference Range Interpretation Comments POC-GLUCOSE METER 249 mg/dL 70-110 H TESTED AT [place] [address] ([facility]) (test code = [facility] 1538) [address] POCT-GLUCOSE [id number] 09:40:00 Test Item Value Reference Range Interpretation Comments POC-GLUCOSE METER 278 mg/dL 70-110 H TESTED AT [place] [address] ([facility]) (test code = [facility] 1538) [address] BASIC METABOLIC [id number] 06:14:00 Test Item Value Reference Range Interpretation [...] S NOT APPLICABLE FOR DIALYSIS PATIEN TS. [id number] 06:03:00 Test Item Value Reference Range Interpretation [...] for patients with mechanical heart valves. SCREEN, [id number] 05:59:00 Test Item Value Reference Range Interpretation Comments TEST URINE ([facility]) (test Negative code = 583) POCT-GLUCOSE [id number] 05:46:00 Test Item Value Reference Range Interpretation Comments POC-GLUCOSE METER 140 mg/dL 70-110 H TESTED AT [facility] 6720 ([facility]) (test code = [place] 1530) [address] CBC W/PLT COUNT & AUTO [id number] 05:46:00 Test Item Value Reference Range Interpretation [...] PERCENT (BEAKER) (test code = 2801) POCT-GLUCOSE [id number] 21:27:00 Test Item Value Reference Range Interpretation Comments POC-GLUCOSE METER 223 mg/dL 70-110 H TESTED AT [facility] 6720 (BEAKER) (test code = [place] 1538) [address] POCT-GLUCOSE [id number] 17:26:00 Test Item Value Reference Range Interpretation Comments POC-GLUCOSE METER 223 mg/dL 70-110 H TESTED AT [facility] 6720 (BEAKER) (test code = [place] 1538) [address] BASIC METABOLIC [id number] 16:43:00 Test Item Value Reference Range Interpretation [...] 697) EGFR (BEAKER) (test 81 mL/min/1.73 ESTIMA EODUARD GFR IS code = 1092) sq m NOT ACCURATE CREATININE CLEARANCE IN PREDICTING GLOMERULAR FILTRATION RATE . ESTIMATED GFR I S NOT APPLICABLE FOR DIALYSIS PATIEN TS. POCT-GLUCOSE [id number] 09:06:00 Test Item Value Reference Range Interpretation Comments POC-GLUCOSE METER 265 mg/dL 70-110 H TESTED AT [place] [address] ([facility]) (test code = [place] [facility] 1538) [address] POCT-GLUCOSE [id number] 00:22:00 Test Item Value Reference Range Interpretation Comments POC-GLUCOSE METER 210 mg/dL 70-110 H TESTED AT [place] [address] ([facility]) (test code = [place] [facility] 1538) [address] POCT-GLUCOSE [id number] 20:27:00 Test Item Value Reference Range Interpretation Comments POC-GLUCOSE METER 235 mg/dL 70-110 H TESTED AT [place] [address] ([facility]) (test code = [place] [facility] 1538) [address]449 POCT-GLUCOSE [id number] 17:10:00 Test Item Value Reference Range Interpretation Comments POC-GLUCOSE METER 264 mg/dL 70-110 H TESTED AT [place] [address] ([facility]) (test code = [place] [facility] 1538) [address] POCT-GLUCOSE [id number] 16:00:00 Test Item Value Reference Range Interpretation Comments POC-GLUCOSE METER 242 mg/dL 70-110 H TESTED AT [place] [address] ([facility]) (test code = [place] [facility] 1538) [address] POCT-GLUCOSE [id number] 08:54:00 Test Item Value Reference Range Interpretation Comments POC-GLUCOSE METER 224 mg/dL 70-110 H TESTED AT [place] [address] ([facility]) (test code = [place] [facility] 1538) [address] POCT-GLUCOSE [id number] 21:30:00 Test Item Value Reference Range Interpretation Comments POC-GLUCOSE METER 254 mg/dL 70-110 H TESTED AT [place] [address] ([facility]) (test code = [place] [facility] 1538) [address]85 POCT-GLUCOSE [id number] 17:23:00 Test Item Value Reference Range Interpretation Comments POC-GLUCOSE METER 193 mg/dL 70-110 H TESTED AT [place] [address] ([facility]) (test code = [place] [facility] 1538) [address] POCT-GLUCOSE [id number] 11:53:00 Test Item Value Reference Range Interpretation Comments POC-GLUCOSE METER 179 mg/dL 70-110 H TESTED AT [place] [address] ([facility]) (test code = [place] [facility] 1538) [address] [id number] 10:15:00 Test Item Value Reference Range Interpretation Comments CORTISOL, TOTAL ([facility]) (test code 4.7 ug/dL 3.7-19.4 = 2755) POCT-GLUCOSE [id number] 08:07:00 Test Item Value Reference Range Interpretation Comments POC-GLUCOSE METER 184 mg/dL 70-110 H TESTED AT [place] [address] ([facility]) (test code = [place] [facility] 1538) [address] CT, BRAIN, WITHOUT [id number] 22:07:00FINAL REPORT CT Head without contrast CLINICAL [...] Gamboa Verified Date/Time: 06/20/2018 22:07:25 Reading Location: [address] Reading Room POCT-GLUCOSE [id number] 21:00:00 Test Item Value Reference Range Interpretation Comments POC-GLUCOSE METER 227 mg/dL 70-110 H TESTED AT [place] [address] (BEAKER) (test code = [facility] 1538) [address] POCT-GLUCOSE [id number] 16:57:00 Test Item Value Reference Range Interpretation Comments POC-GLUCOSE METER 216 mg/dL 70-110 H TESTED AT [facility] 6720 (BEAKER) (test code = [facility] Jadiel [facility] 1538) [address] POCT-GLUCOSE [id number] 13:11:00 Test Item Value Reference Range Interpretation Comments POC-GLUCOSE METER 198 mg/dL 70-110 H TESTED AT [place] [id number] (BEAKER) (test code = [facility] 1538) [address] POCT-GLUCOSE [id number] 07:47:00 Test Item Value Reference Range Interpretation Comments POC-GLUCOSE METER 213 mg/dL 70-110 H TESTED AT [facility] 6720 (BEAKER) (test code = [facility] 1538) [address] BASIC METABOLIC [id number] 06:57:00 Test Item Value Reference Range Interpretation Comments SODIUM (BEAKER) 138 meq/L 136-145 (test code = 381) POTASSIUM (BEAKER) 3.9 meq/L 3.5-5.1 (test code = 379) CHLORIDE (BEAKER) 105 meq/L 98-107 (test code = 382) CO2 (BEAKER) (test 24 meq/L 22-29 code = 355) BLOOD UREA NITROGEN 12 mg/dL 7-21 ([facility]) (test code = 354) CREATININE ([facility]) 0.73 mg/dL 0.57-1.25 (test code = 358) GLUCOSE RANDOM 192 mg/dL 70-105 H ([facility]) (test code = 652) CALCIUM ([facility]) 8.8 mg/dL 8.4-10.2 (test code = 697) EGFR ([facility]) (test 85 mL/min/1.73 ESTIMA EDOUARD GFR IS code = 1092) sq m NOT ACCURATE CREATININE CLEARANCE IN PREDICTING GLOMERULAR FILTRATION RATE . ESTIMATED GFR I S NOT APPLICABLE FOR DIALYSIS PATIEN TS. POCT-GLUCOSE [id number] 05:24:00 Test Item Value Reference Range Interpretation Comments POC-GLUCOSE METER 192 mg/dL 70-110 H TESTED AT [facility] 6720 ([facility]) (test code = [place] 1538) [address] CT, CTANGIO [id number] 01:03:00FINAL REPORT CLINICAL HISTORY: Stroke TECHNIQUE: Initially, [...] Gamboa Verified Date/Time: 06/20/2018 01:03:44 Reading Location: [address] Transitional Reading [place] [facility] [place] [place] 2018-06-20 01:03:00FINAL [...] [place] Verified Date/Time: 06/20/2018 01:03:44 Reading Location: [address] Transitional Reading Room POCT-GLUCOSE METER 2018-06-20 00:40:00 Test Item Value Reference Range Interpretation Comments POC-GLUCOSE METER 283 mg/dL 70-110 H TESTED AT [place] [address] ([facility]) (test code = [facility] [address] POCT-GLUCOSE [id number] 21:21:00 Test Item Value Reference Range Interpretation Comments POC-GLUCOSE METER 343 mg/dL 70-110 H TESTED AT [place] [address] ([facility]) (test code = [facility] 1538) [address] SCREEN, [id number] 18:52:00 Test Item Value Reference Range Interpretation Comments TEST URINE ([facility]) (test Negative code = 583) POCT-GLUCOSE [id number] 17:17:00 Test Item Value Reference Range Interpretation Comments POC-GLUCOSE METER 287 mg/dL 70-110 H TESTED AT [place] [address] ([facility]) (test code = [facility] 1538) [address] [id number] 15:59:00 Test Item Value Reference Range Interpretation Comments RPR SCREEN (BEAKER) (test code = Nonreactive Nonreactive 420) POCT-GLUCOSE [id number] 15:07:00 Test Item Value Reference Range Interpretation Comments POC-GLUCOSE METER 323 mg/dL 70-110 H TESTED AT [facility] 6720 (BEAKER) (test code = [place] 1538) [address] T4, [id number] 13:11:00 Test Item Value Reference Range Interpretation Comments FREE T4 (BEAKER) (test code = 655) 0.89 ng/dL 0.70-1.48 HIV-1 ANTIGEN WITH HIV-1/2 [id number] 13:11:00 Test Item Value Reference Range Interpretation Comments HIV-1 ANTIGEN WITH HIV 1\\T\\2 Nonreactive Nonreactive ANTIBODY (2) (BEAKER) (test code = 2586) RAPID DRUG SCREEN, [id number] 12:47:00 Test Item Value Reference Range Interpretation [...] situations. Chain of custody not maintained. Some gnhg-tfo-nvdclkq medications, as well as adulterants, may cause inaccurate results. Clinical correlation should be applied. A more comprehensive drug screen or confirmation of a detected drug may be performed upon request. POCT-GLUCOSE [id number] 12:37:00 Test Item Value Reference Range Interpretation Comments POC-GLUCOSE METER 292 mg/dL 70-110 H TESTED AT [facility] 6720 (BEAKER) (test code = [place] 1538) [address] HEMOGLOBIN [id number] 12:35:00 Test Item Value Reference Range Interpretation Comments HEMOGLOBIN A1C (BEAKER) (test code = 7.9 % 4.3-6.1 H 368) OSMOLALITY, [id number] 12:34:00 Test Item Value Reference Range Interpretation Comments OSMOLALITY, SERUM (BEAKER) (test 310 mOsm/kg 275-295 H code = 615) C-REACTIVE [id number] 12:28:00 Test Item Value Reference Range Interpretation Comments C-REACTIVE PROTEIN (BEAKER) (test 0.81 mg/dL 0.00-0.50 H code = 676) OSMOLALITY, [id number] 12:22:00 Test Item Value Reference Range Interpretation Comments OSMOLALITY URINE (BEAKER) (test 247 mOsm/kg 40-1,400 code = 614) CBC W/PLT COUNT & AUTO [id number] 12:14:00 Test Item Value Reference Range Interpretation [...] PERCENT (BEAKER) (test code = 2801) POCT-GLUCOSE [id number] 10:30:00 Test Item Value Reference Range Interpretation Comments POC-GLUCOSE METER 341 mg/dL 70-110 H TESTED AT [place] [address] ([facility]) (test code = [place] 1538) [address] [id number] 06:17:00 Test Item Value Reference Range Interpretation Comments PROLACTIN (BEAKER) (test code = 23.34 ng/mL 5.18-26.53 758) POCT-GLUCOSE [id number] 05:55:00 Test Item Value Reference Range Interpretation Comments POC-GLUCOSE METER 285 mg/dL 70-110 H TESTED AT [place] [address] ([facility]) (test code = FOX Jadiel [facility] 1538) [address] MR, BRAIN, [id number] 02:25:00Pituitary protocolCr 0.6FINAL REPORT MRI brain with and without contrast Comparison: None. 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 URINALYSIS W/ REFLEX URINE [id number] 23:13:00 Test Item Value Reference Range Interpretation [...] code = 516) SOURCE(BEAKER) (test code = 3174)
--- OUTSIDE RECORDS SUMMARY | 2020-01-07 06:43 | XMS REPORT ---
[...] End Status Dosage System Date Date Levothyroxine [facility] 17507978162 100 MCG Oral Active 1 tablet Sodium Once a day in the morning on an empty stomach Results No Known Results Summary Purpose eClinicalBetter Bean Submission
--- OUTSIDE RECORDS SUMMARY | 2020-01-07 06:43 | XMS REPORT ---
[...] End Status Dosage System Date Date Hydrochlorothiazide [facility] 52061623203 12.5 MG Orally October ctive 1 Once a day 2019 in the morning Losartan Potassium ND 13926129423 100 MG Orally October priyanka 1 tablet Once a day [address] [facility] 96429126377 100-12.5 MG Inactive TAKE 1 Potassium-HCTZ TABLET BY MOUTH EVERY DAY Results No Known Results Summary Purpose eClinicalWorks Submission
--- OUTSIDE RECORDS SUMMARY | 2020-01-07 06:43 | XMS REPORT ---
[...] Dosage System Date Date Metformin HCl ND 36843995444 1000 MG Orally Aug 07, Active 1 tablet Once a day 2019 with a meal GlyBURIDE ND 63912230623 5 MG Active TAKE 2 TABLETS BY MOUTH TWICE A DAY WITH A MEAL Novolin N [facility] [address]-90 100 UNIT/ML Active 17 u nits Subcutaneous Twice a day Nitrofurantoin ND 64121123401 100 MG Oral Active T NELSON 1 Monohyd Macro CAPSULE BY MOUTH EVERY 12 HOURS FOR 7 DAYS Losartan Potassium ND 87397773741 100 MG Orally October priyanka 1 tablet Once a day 2019 Hydrochlorothiazide ND 39546743669 12.5 MG Orally October ctive 1 capsule Once a day , in the 2019 morning MetFORMIN HCl ER [facility] 60173952784 750 MG Orally Activ e 1 tablet Once a day with evening meal Hydrocortisone [facility] 17881593764 10 MG Orally Active 1 tablet every 12 hrs with food or milk Levothyroxine Sodium [facility] 02511392642 88 MCG Oral Act priyanka TAKE 1 TABLET BY MOUTH EVERY MORNING Meclizine HCl [facility] 01146363256 25 MG Oral Active KARLO E 1 TABLET BY MOUTH EVERY 8 HOURS NEEDED Results Name Result Date Reference Range Unit Abnormali ty Flag HEMOGLOBIN A1C ----A1C 10.7 [id number] Summary Purpose eClinicalWorks Submission
[2020-01-07] MEDS ORDERED: NA CHLORIDE 0.9% 500 ML ONE (07:59)
[2020-01-07] MEDS ORDERED: NA CHLORIDE 0.9% 1,000 ML ONE (07:59)
[2020-01-07] MEDS ORDERED: FOLIC ACID 5 MG/ML VIAL ONE (08:00)
[2020-01-07 08:17] LABS: Absolute Lymphocytes (CBC) 1.7 K/uL (0.7-4.9); Basophils % 1.1 % (0-1.3); Hematocrit 44.2 % (36.0-45.0); Lymphocytes % 21.8 % (15.3-44.8); MPV 10.4 fL (7.6-11.3); RBC Red Blood Cell Count 5.46 M/uL (3.86-4.86)
[2020-01-07 08:32] LABS: Urine Blood NEGATIVE (NEG); Urine Glucose 1+ (NEG); Urine Protein NEGATIVE (NEG)
[2020-01-07 08:37] LABS: ALT/SGPT 129 U/L (12-78); AST/SGOT 74 U/L (15-37); Albumin 3.4 g/dL (3.4-5.0); Alkaline Phosphatase 68 U/L (45-117); BUN Blood Urea Nitrogen 9 mg/dL (7-18); Bicarbonate 26 mmol/L (21-32); Bilirubin Direct 0.2 mg/dL (0-0.2); Bilirubin Total 0.7 mg/dL (0.2-1.0); Glucose Level 271 mg/dL (74-106); NT PRO-BNP 32 pg/mL (<125); Potassium 3.7 mmol/L (3.5-5.1); Protein, Total 7.3 g/dL (6.4-8.2); Sodium Level 136 mmol/L (136-145); Troponin (Emerg Dept Use Only) < 0.02 ng/mL (0.0-0.045)
--- NOTE | 2020-01-07 08:51 | RAD REPORT ---
EXAM DESCRIPTION: RAD - Chest Single View - 01/07/2020 8:09 am CLINICAL HISTORY: COUGH Chest pain. COMPARISON: Chest Single View dated 01/06/2020; Chest Single View dated 11/14/2019; Chest Single View dated 07/22/2019; Chest Single View dated 03/24/2019 FINDINGS: Portable technique limits examination quality. The lungs are mildly emphysematous but grossly clear. The heart is normal in size. No displaced fract ures. IMPRESSION: No acute intrathoracic process suspected.
[2020-01-07 09:31] LABS: Thyroid Stimulating Hormone 4.04 uIU/mL (0.360-3.740)
--- NOTE | 2020-01-07 09:56 | RAD REPORT ---
EXAM DESCRIPTION: MRI - Brain Wo Cont - 01/07/2020 9:41 am CLINICAL HISTORY: Dizziness;Aphasia Headache, drowsiness, CVA symptomology COMPARISON: Brain Wo Cont dated 07/22/2019 TECHNIQUE: Multi-sequence, multiplanar MR imaging of the brain was performed without contrast. FINDINGS: No intracranial hemorrhage, hydrocephalus or extra-axial fluid collections. No edema or sh ift of midline structures. No findings to suspect brain mass. DWI is negative for acute CVA. Midline structures are normally formed. Mastoid air cells and paranasal sinuses are clear. IMPRESSION: Negative for acute CVA or other acute intracranial finding.
--- NOTE | 2020-01-07 10:24 | EDPHYS ---
Physician Documentation [facility] Name: Chantal Stout Age: 49 yrs Sex: Female : 1970 Arrival Date: 01/07/2020 Time: 06:39 Bed 8 Private MD: KRUPA Physician Marco Vargas HPI: 01/06 08:50 This 49 yrs old Female presents to ER via Wheelchair with complaints of manuela Shakiness. 08:50 The patient's problem is reported as dysphasia, weakness, that is generalized. Onset: manuela The symptoms/episode began/occurred this morning, last night. Duration: The episodes are intermittent. Context: the episode(s) was witnessed, by family, , symptoms became apparent at 22:00. The symptoms are alleviated by nothing. The symptoms are aggravated by nothing. weak, shaky, taking hydrocortisone. Associated signs and symptoms: Pertinent positives: dizziness, lightheadedness. Severity of symptoms: At their worst the symptoms were mild in the emergency department the symptoms are unchanged. Patient's baseline: Neuro: alert and fully oriented. 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 LMP N/A - Post-menopause jd3 Historical: - Allergies: 07:11 Bactrim; jd3 07:11 Cephalexin; jd3 07:11 Codeine; jd3 07:11 Iodine; jd3 07:11 Levaquin; jd3 07:11 Sulfa (Sulfonamide Antibiotics); jd3 - Home Meds: 07:11 glyburide 5 mg Oral tab 1 tab 2 times per day [Active]; hydrochlorothiazide 12.5 mg jd3 Oral cap 1 cap once daily [Active]; hydrocortisone 10 mg Oral tab 1 tab 2 times per day [Active]; insulin NPH human recomb 15 units subcutaneous twice a day [Active]; levothyroxine 100 mcg tab once daily [Active]; losartan 100 mg Oral tab 1 tab once daily [Active]; metformin 750 mg Oral Tb24 1 tab once daily for Type 2 Diabetes Mellitus [Active]; metformin 1,000 mg Oral tr24 1 tab twice a day for Type 2 Diabetes Mellitus [Active]; - PMHx: 07:11 Diabetes - NIDDM; Hypothyroidism; Hypertension; pituitary tumor- surgically removed Dec jd3 03; ADD/ADHD; Anemia; Asthma; - Immunization history:: Adult Immunizations up to date. - Social history:: Smoking status: Patient/guardian denies using tobacco, the patient reports quitting approximately 2 years ago. - Family history:: not pertinent. ROS: 08:50 Constitutional: Negative for fever, chills, and weight loss, Eyes: Negative for injury, manuela pain, redness, and discharge, ENT: Negative for injury, pain, and discharge, Neck: Negative for injury, pain, and swelling, Cardiovascular: Negative for chest pain, palpitations, and edema, Respiratory: Negative for shortness of breath, cough, wheezing, and pleuritic chest pain, Abdomen/GI: Negative for abdominal pain, nausea, vomiting, diarrhea, and constipation, Back: Negative for injury and pain, : Negative for injury, bleeding, discharge, and swelling, MS/Extremity: Negative for injury and deformity, Skin: Negative for injury, rash, and discoloration, Psych: Negative for depression, anxiety, suicide ideation, homicidal ideation, and hallucinations, Allergy/Immunology: Negative for hives, rash, and allergies, Endocrine: Negative for neck swelling, polydipsia, polyuria, polyphagia, and marked weight changes, Hematologic/Lymphatic: Negative for swollen nodes, abnormal bleeding, and unusual bruising. 08:50 Neuro: Positive for tremor, weakness. Exam: 08:50 Constitutional: This is a well developed, well nourished patient who is awake, alert, manuela and in no acute distress. Head/Face: Normocephalic, atraumatic. Eyes: Pupils equal round and reactive to light, extra-ocular motions intact. Lids and lashes normal. Conjunctiva and sclera are non-icteric and not injected. Cornea within normal limits. Periorbital areas with no swelling, redness, or edema. ENT: Nares patent. No nasal discharge, no septal abnormalities noted. Tympanic membranes are normal and external auditory canals are clear. Oropharynx with no redness, swelling, or masses, exudates, or evidence of obstruction, uvula midline. Mucous membranes moist. Neck: Trachea midline, no thyromegaly or masses palpated, and no cervical lymphadenopathy. Supple, full range of motion without nuchal rigidity, or vertebral point tenderness. No Meningismus. Chest/axilla: Normal chest wall appearance and motion. Nontender with no deformity. No lesions are appreciated. Cardiovascular: Regular rate and rhythm with a normal S1 and S2. No gallops, murmurs, or rubs. Normal PMI, no JVD. No pulse deficits. Respiratory: Lungs have equal breath sounds bilaterally, clear to auscultation and percussion. No rales, rhonchi or wheezes noted. No increased work of breathing, no retractions or nasal flaring. Abdomen/GI: Soft, non-tender, with normal bowel sounds. No distension or tympany. No guarding or rebound. No evidence of tenderness throughout. Back: No spinal tenderness. No costovertebral tenderness. Full range of motion. Female : Normal external genitalia. Skin: Warm, dry with normal turgor. Normal color with no rashes, no lesions, and no evidence of cellulitis. MS/ Extremity: Pulses equal, no cyanosis. Neurovascular intact. Full, normal range of motion. Neuro: Awake and alert, GCS 15, oriented to person, place, time, and situation. Cranial nerves II-XII grossly intact. Motor strength 5/5 in all extremities. Sensory grossly intact. Cerebellar exam normal. Normal gait. Psych: Awake, alert, with orientation to person, place and time. Behavior, mood, and affect are within normal limits. 09:31 Radiologist reports: not done, mri wo cva protocol pending [facility] Vital Signs: 07:11 BP 145 / 87; Pulse 92; Resp 19 S; Temp 98.2(TE); Pulse Ox 95% on R/A; Weight 133.36 kg jd3 (R); Height 5 ft. 4 in. (162.56 cm) (R); Pain 0/10; 08:30 BP 152 / 92; Pulse 87; Resp 18 S; Pulse Ox 97% on R/A; aa5 11:30 BP 151 / 90; Pulse 84; Resp 18 S; Pulse Ox 100% on R/A; aa5 07:11 Body Mass Index 50.46 (133.36 kg, 162.56 cm) jd3 MDM: 07:06 Patient medically screened. [facility] 08:54 Data reviewed: vital signs, nurses notes, lab test result(s), EKG, radiologic studies, manuela CT scan, plain films. 09:30 Differential diagnosis: CVA, TIA, metabolic disorder, drug effects. Differential manuela Diagnosis altered mental status. Data interpreted: monitor tech: rate is 87 beats/min, rhythm is normal sinus rhythm, Pulse oximetry: on room air is 97 %. Test interpretation: by ED physician or midlevel provider: ECG, plain radiologic studies. Counseling: I had a detailed discussion with the patient and/or guardian regarding: the historical points, exam findings, and any diagnostic results supporting the discharge/admit diagnosis, lab results, radiology results, the need for outpatient follow up, for definitive care, a neurologist. 10:21 ED course: pt much improved, will con all meds, follow up pcp, return if worse. [facility] 01/06 07:43 Order name: Basic Metabolic Panel [facility] 01/06 07:43 Order name: CBC with Diff; Complete Time: 08:49 [facility] 01/06 07:43 Order name: LFT's; Complete Time: 08:49 [facility] 01/06 07:43 Order name: Magnesium; Complete Time: 08:49 [facility] 01/06 07:43 Order name: NT PRO-BNP; Complete Time: 08:49 [facility] 01/06 07:43 Order name: Troponin (emerg Dept Use Only); Complete Time: 08:49 [facility] 01/06 07:43 Order name: CRP; Complete Time: 08:49 [facility] 01/06 07:43 Order name: Sed Rate; Complete Time: 08:49 [facility] 01/06 07:44 Order name: Basic Metabolic Panel; Complete Time: 08:49 [facility] 01/06 08:20 Order name: Urine Dipstick--Ancillary (enter results); Complete Time: 08:49 [facility] 01/06 08:20 Order name: Urine --Ancillary (enter results); Complete Time: 08:49 [facility] 01/06 08:51 Order name: TSH; Complete Time: 10:20 [facility] 01/06 09:33 Order name: T4 Free; Complete Time: 10:20 [facility] 01/06 10:17 Order name: Glucose, Ancillary Testing; Complete Time: 10:20 [facility] 01/06 07:43 Order name: XRAY Chest (1 view); Complete Time: 09:30 [facility] 01/06 07:43 Order name: EKG; Complete Time: 07:45 [facility] 01/06 07:43 Order name: Cardiac monitoring; Complete Time: 08:11 [facility] 01/06 07:43 Order name: EKG - Nurse/Tech; Complete Time: 08:11 [facility] 01/06 07:43 Order name: IV Saline Lock; Complete Time: 08:11 [facility] 01/06 07:43 Order name: Labs collected and sent; Complete Time: 08:11 [facility] 01/06 07:43 Order name: O2 Per Protocol; Complete Time: 08:11 [facility] 01/06 07:43 Order name: O2 Sat Monitoring; Complete Time: 08:11 [facility] 01/06 07:43 Order name: MRI - Brain Wo Cont; Complete Time: 10:20 [facility] 01/06 08:20 Order name: Urine Dipstick-Ancillary (obtain specimen); Complete Time: 08:20 aa 01/06 08:20 Order name: Urine Test (obtain specimen); Complete Time: 08:20 aa Administered Medications: 08:05 Drug: NS 0.9% 500 ml Route: IV; Rate: bolus; Site: right forearm; aa5 08:07 Drug: NS 0.9% 1000 ml Route: IV; Rate: 125 ml/hr; Site: right forearm; aa5 08:07 Drug: foLIC Acid 1 mg Route: IVPB; Site: right forearm; [facility] 10:37 Drug: Aspirin 81 mg Route: PO; jl7 Disposition: 01/07/20 10:23 Discharged to Home. Impression: Weakness, Type 2 diabetes mellitus. - Condition is Stable. - Discharge Instructions: Type 2 Diabetes Mellitus, Diagnosis, Adult, Weakness, Weakness, [id number], Aspirin and Your Heart, Type 2 Diabetes Mellitus, Diagnosis, Adult, [id number]. - Prescriptions for Vitamin 27- 0.8 mg Oral Tablet - take 1 tablet by ORAL route once daily; 30 tablet. - Medication Reconciliation Form, Thank You Letter, Antibiotic Education, Prescription Opioid Use form. - Follow up: Private Physician; When: 2 - 3 days; Reason: Recheck today's complaints, Continuance of care, Re-evaluation by your physician. - Problem is new. - Symptoms have improved. Signatures: Dispatcher [employer] EDMS Marco Vargas MD MD cha Calderon, Audri, RN RN aa5 Norman Franklin RN RN jl7 Delta Zapata RN RN jd3 Corrections: (The following items were deleted from the chart) 12:33 10:23 01/07/2020 10:23 Discharged to Home. Impression: Weakness; Type 2 diabetes aa5 mellitus. Condition is Stable. Forms are Medication Reconciliation Form, Thank You Letter, Antibiotic Education, Prescription Opioid Use. Follow up: Private Physician; When: 2 - 3 days; Reason: Recheck today's complaints, Continuance of care, Re-evaluation by your physician. Problem is new. Symptoms have improved. manuela
--- NOTE | 2020-01-07 10:24 | ER ---
Nurse's Notes [facility] Name: Chantal Stout Age: 49 yrs Sex: Female : 1970 Arrival Date: 01/07/2020 Time: 06:39 Bed 8 Private MD: Diagnosis: Weakness;Type 2 diabetes mellitus Presentation: 01/06 07:05 Chief complaint: Patient states: "I woke up today with really bad shaking and jd3 stuttering around 0520. this happened yesterday morning too and was seen here and was told it was related to my steroids being imbalanced. I took all my meds this morning, including my steroids, but nothing is helping.". Coronavirus screen: Proceed with normal triage. Ebola Screen: Patient negative for fever greater than or equal to 101.5 degrees Fahrenheit, and additional compatible Ebola Virus Disease symptoms. Initial Sepsis Screen: Does the patient meet any 2 criteria? No. Patient's initial sepsis screen is negative. Does the patient have a suspected source of infection? No. Patient's initial sepsis screen is negative. Risk Assessment: Do you want to hurt yourself or someone else? Patient reports no desire to harm self or others. Onset of symptoms was January 07, 2020. 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 LMP N/A - Post-menopause jd3 Historical: - Allergies: 07:11 Bactrim; jd3 07:11 Cephalexin; jd3 07:11 Codeine; jd3 07:11 Iodine; jd3 07:11 Levaquin; jd3 07:11 Sulfa (Sulfonamide Antibiotics); jd3 - Home Meds: 07:11 glyburide 5 mg Oral tab 1 tab 2 times per day [Active]; hydrochlorothiazide 12.5 mg jd3 Oral cap 1 cap once daily [Active]; hydrocortisone 10 mg Oral tab 1 tab 2 times per day [Active]; insulin NPH human recomb 15 units subcutaneous twice a day [Active]; levothyroxine 100 mcg tab once daily [Active]; losartan 100 mg Oral tab 1 tab once daily [Active]; metformin 750 mg Oral Tb24 1 tab once daily for Type 2 Diabetes Mellitus [Active]; metformin 1,000 mg Oral tr24 1 tab twice a day for Type 2 Diabetes Mellitus [Active]; - PMHx: 07:11 Diabetes - NIDDM; Hypothyroidism; Hypertension; pituitary tumor- surgically removed Dec jd3 03; ADD/ADHD; Anemia; Asthma; - Immunization history:: Adult Immunizations up to date. - Social history:: Smoking status: Patient/guardian denies using tobacco, the patient reports quitting approximately 2 years ago. - Family history:: not pertinent. Screenin:12 Abuse screen: Denies threats or abuse. Nutritional screening: No deficits noted. jd3 Tuberculosis screening: No symptoms or risk factors identified. Fall Risk Ambulatory Aid- None/Bed Rest/Nurse Assist (0 pts). Gait- Normal/Bed Rest/Wheelchair (0 pts) Mental Status- Oriented to own ability (0 pts). Total Byrd Fall Scale indicates No Risk (0-24 pts). Assessment: 08:00 General: Appears comfortable, Behavior is calm, cooperative. Pain: Complains of pain in aa5 left scientologist Pain does not radiate. Pain currently is 5 out of 10 on a pain scale. Quality of pain is described as aching, throbbing, Pain began just now Is continuous. Neuro: Level of Consciousness is awake, alert, obeys commands, Oriented to person, place, time, situation, Legal Secretary Receptionist are equal bilaterally Moves all extremities. Speech is normal, Facial symmetry appears normal, Pupils are PERRLA, Reports "my whole body was just shaking and I woke up stuttering this morning but I am not anymore". No shaking noted, pt reports it has improved. . Cardiovascular: Heart tones S1 S2 present Rhythm is regular. Respiratory: Airway is patent Respiratory effort is even, unlabored, Respiratory pattern is regular, symmetrical. GI: Abdomen is round Bowel sounds present X 4 quads. Abd is soft and non tender X 4 quads. Patient currently denies nausea, vomiting. : No signs and/or symptoms were reported regarding the genitourinary system. EENT: No signs and/or symptoms were reported regarding the EENT system. Derm: Skin is pink, warm \\T\\ dry. Musculoskeletal: Range of motion: intact in all extremities. 08:30 Reassessment: Patient is alert, oriented x 3, equal unlabored respirations, skin aa5 warm/dry/pink. Pt assisted with bedside commode, pt voided once, pt placed back in bed. . 08:55 Reassessment: Patient is alert, oriented x 3, equal unlabored respirations, skin aa5 warm/dry/pink. Pt notified of wait time for MRI approximately 20-30 minutes as reported by rad tech, pt verbalized understanding. Pt voided once, placed back in bed. . 09:17 Reassessment: Patient is alert, oriented x 3, equal unlabored respirations, skin aa5 warm/dry/pink. Pt to MRI via wheelchair. . 10:50 Reassessment: Patient is alert, oriented x 3, equal unlabored respirations, skin aa5 warm/dry/pink. Awaiting for Dr. Vargas to speak to pt prior to d/c home, pt notified of wait time. . 12:10 Reassessment: Patient is alert, oriented x 3, equal unlabored respirations, skin aa5 warm/dry/pink. Dr. Vargas at bedside, speaking to pt. . 12:20 Reassessment: Patient is alert, oriented x 3, equal unlabored respirations, skin aa5 warm/dry/pink. Vital Signs: 07:11 BP 145 / 87; Pulse 92; Resp 19 S; Temp 98.2(TE); Pulse Ox 95% on R/A; Weight 133.36 kg j (R); Height 5 ft. 4 in. (162.56 cm) (R); Pain 0/10; 08:30 BP 152 / 92; Pulse 87; Resp 18 S; Pulse Ox 97% on R/A; aa5 11:30 BP 151 / 90; Pulse 84; Resp 18 S; Pulse Ox 100% on R/A; aa5 07:11 Body Mass Index 50.46 (133.36 kg, 162.56 cm) [facility] ED Course: 06:39 Patient arrived in ED. cl3 07:06 Marco Vargas MD is Attending Physician. manuela 07:09 Triage completed. jd3 07:12 Arm band placed on. jd3 07:12 Patient has correct armband on for positive identification. Bed in low position. Call j light in reach. Side rails up X 1. Adult w/ patient. Pulse ox on. NIBP on. 07:35 Report received from ALCIDES Sorenson. aa5 08:05 Initial lab(s) drawn, by me, sent to lab. Inserted saline lock: 20 gauge in right aa5 forearm, using aseptic technique. Blood collected. 08:10 XRAY Chest (1 view) In Process Unspecified. EDMS 08:29 EKG done, by ED staff, reviewed by Marco Vargas MD. [facility] 08:32 Brittany Kong, RN is Primary Nurse. aa5 09:39 MRI - Brain Wo Cont In Process Unspecified. EDMS 12:20 No provider procedures requiring assistance completed. IV discontinued, intact, aa5 bleeding controlled, No redness/swelling at site. Pressure dressing applied. Administered Medications: 08:05 Drug: NS 0.9% 500 ml Route: IV; Rate: bolus; Site: right forearm; aa5 08:07 Drug: NS 0.9% 1000 ml Route: IV; Rate: 125 ml/hr; Site: right forearm; aa5 08:07 Drug: foLIC Acid 1 mg Route: IVPB; Site: right forearm; aa5 10:37 Drug: Aspirin 81 mg Route: PO; jl7 Outcome: 10:23 Discharge ordered by . manuela 12:20 Discharged to home via wheelchair. aa5 12:20 Condition: stable 12:20 Discharge instructions given to patient, Instructed on discharge instructions, follow up and referral plans. medication usage, Demonstrated understanding of instructions, follow-up care, medications, Prescriptions given X 1. 12:25 Patient left the ED. aa5 Signatures: Dispatcher [employer] Marco Frazier MD MD cha Calderon, Audri, RN RN aa5 Norman Franklin, RN RN jl7 Sophia Mckeon [facility] Delta Zapata RN RN Kathryn Mendosa 3 Corrections: (The following items were deleted from the chart) 08:32 07:41 Norman Franklin, RN is Primary Nurse. jl7 aa5 08:32 08:32 Primary Nurse role handed off by Norman Franklin RN aa5 aa5 12:37 08:00 Neuro: Level of Consciousness is awake, alert, obeys commands, Oriented to aa5 person, place, time, situation, Legal Secretary Receptionist are equal bilaterally Moves all extremities. Speech is normal, Facial symmetry appears normal, Pupils are PERRLA, Reports "my whole body was just shaking this morning but I am not anymore". No shaking noted, pt reports it has improved. . aa5 12:38 12:33 Patient left the ED. aa5 aa5
[2020-01-07] MEDS ORDERED: ASPIRIN 81 MG CHEWABLE TABLET ONE (10:33)
[2020-01-07 12:51] VITALS: TEMP 98.2
[2020-01-07 12:55] VITALS: BP 152/92; O2SAT 97
--- NOTE | 2020-01-08 07:27 | EKG ---
Test Date: 2020-01-07 Test Time: 08:29:07 Short Filler Bunch Machine Operator: CHANDRIKA MEASUREMENT RESULTS: Intervals: Rate: 84 FL: 144 QRSD: 80 QT: 378 QTc: 446 [place]: P: 57 FL: 144 QRS: 26 T: 34 INTERPRETIVE STATEMENTS: Sinus rhythm with occasional premature ventricular complexes Possible Left atrial enlargement Borderline ECG Compared to ECG 01/06/2020 12:35:48 No significant changes Electronically Signed On 01-08-20 07:24:23 CDT by Ruslan Garibay
== END 2020-01-07 12:33 | disposition home or self-care (01) ==
LOC: ER 06:39
DX: E11.9 Type 2 diabetes mellitus without complications (principal); I10 Essential (primary) hypertension; E03.9 Hypothyroidism, unspecified; Z88.1 Allergy status to other antibiotic agents; Z88.2 Allergy status to sulfonamides; Z88.5 Allergy status to narcotic agent; Z91.048 Other nonmedicinal substance allergy status
CPT/HCPCS: 93005; 85025; 80048; 36415; 83735; 81025; 82947; 80076; 85652; 84443; 81003; 84484; 84439; 83880; 86140; 71045; 70551; 96374; 99284; J7040; J7030

== ENCOUNTER 2020-03-06 10:45 | Emergency (ER) | payer BC ==
--- OUTSIDE RECORDS SUMMARY | 2020-03-06 10:46 | XMS REPORT | Clinical Summary ---
:1970 Author Organization [facility] Address [address] [place] [id number] Care Team Providers Name Role Phone Pcp [...] Nasal 3 packet 5 06/25/2018 A ctive kywrw-drsllu-gjdcue route 2 (two) bottle (NEILMED SINUS times [...] Not on file Implants Implanted Type Area Network Systems Operator Device Shelf Model / Identifier Expiration Serial / Date Lot Sealant Durasl Spine 5ml [id number] - [id number] Cement/Fi N/A: INT EGRA LIFESCI 10/21/[id number] / Implanted: Qty: 1 on 06/24/2018 by Alex Ruano MD ller/[employer] / sive [id number] Flseal Vhsd Full Strlprep 10ml [id number] - [id number] Cement/Fi N/A : FUNES:BIOSCI 11/18/2019 [id number] / Implanted: Qty: 1 on 06/24/2018 by Alex Ruano MD ller/[employer] / sive [id number] Graft Matrix Dura 1x3 [id number] - [id number] Neuro N/A: [employer] 02/20/2020 [id number] / Implanted: Qty: 1 on 06/24/2018 by Alex Ruano MD Head SURGICAL / NAVIGATION [id number] Results Not on fileafter 03/06/2019 Insurance Payer Benefit Plan / Subscriber ID Type Phone Address Group BLUE CROSS/BLUE [employer] OS xxxxxxxxxxxx PPO [phone] [address] [id number] SHIELD POS/PPO/[place] [address] Advance Directives Patient has advance care planning documents, and code status on file. For more information, please contact:[address] [phone] Code Status Date Activated Date Inactivated Comments Full Code 06/26/2018 1:38 PM This code status was determined by: Patient Full Code 06/18/2018 8:39 PM 06/26/2018 11:54 AM This code status was determined by: Patient
--- OUTSIDE RECORDS SUMMARY | 2020-03-06 10:48 | XMS REPORT ---
:1970 Author Organization [employer] Care Team Providers Name Role Phone Linnea Logan Provider Role Unavailable Allergies No Known Allergies Problems Problem Type Condition Code Onset Dates Condition Statu s Problem Hypertension I10 Active Problem Allergic rhinitis, unspecified J30.9 Active Problem Hyperlipidemia E78.5 Active Assessment Type 2 diabetes mellitus without E11.9 Active complication, without long-term current use of insulin Problem Hypothyroidism E03.9 Active Problem Anxiety F41.9 Active Problem Vaginal joseph B37.3 Active Problem Essential hypertension I10 Activ e Problem Controlled type 2 diabetes mellitus E11.65 Active with hyperglycemia, unspecified whether intermodal customer service insulin use Problem Seasonal allergic rhinitis due to J30.1 Active pollen Problem Migraines G43.909 Active Problem Dental abscess K04.7 Active Problem Fatty liver K76.0 Active Medications Medication Code Code Instructions Start End Date Status Dosage System Date Metformin HCl [facility] [id number] 1000 MG Orally Aug 07, Active 1 tablet Twice a day 2019 with a meal Results No Known Results Summary Purpose eClinicalWorks Submission
--- OUTSIDE RECORDS SUMMARY | 2020-03-06 10:48 | XMS REPORT | Continuity of Care Document ---
:1970 Author Organization [facility] t Address [address] [place] [address] Dr. Holbrook [address] [place] [address] Care Team Providers Name Role Phone Pcp [...] [facility] Seasonal [facility]al Problem [facility] - rhinitis rhinitis Memori a due to due to l pollen pollen Outpati ent Clinics Fatty Fatty Problem Active [facility] liver liver [facility] Dental Dental Problem Active [facility] abscess abscess [facility] Vaginal Vaginal Problem Active [facility] Controlled Controlled Problem Active C [facility] type 2 type 2 [facility] - diabetes diabetes Memori a mellitus mellitus l with with Outpati hyperglyce hyperglyce en t jean paul, jean paul, Clinics unspecifie unspecifie d whether d whether 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 use Type 2 Type [address] [facility] diabetes diabetes [facility] - mellitus mellitus Memori a without without l complicati complicati Ou tpati on, on, ent without without Clinics long-term long-term current current use of use of insulin insulin Allergies, Adverse Reactions, Alerts Allergy Allergy Status Severity Reaction(s) Onset Inactive Treating Comm ents Source Name Type Date Date Clinician Sulfamet Propensi Active Swelling 2017-[address] [facility] hoxazole ty to 2-05 [facility] - -Trimeth adverse 00:00: Medical oprim reaction 00 [place] Cephalex Propensi Active 2017-[address] in ty to 2-05 [facility] - adverse 00:00: Medical reaction 00 [place] Codeine Propensi Active 2017-[address] ty to 2-05 vity [facility] - adverse 00:00: Medical reaction 00 [place] Levoflox Propensi Active 2017-[address] acin ty to 2-05 tions [facility] - adverse 00:00: Medical reaction 00 [place] Monosodi Propensi Active 2017-07 Flushed [facility] um ty to 2-05 face [facility] - Glutamat adverse 00:00: Medical e reaction 00 [place] Ceftriax Propensi Active Rash 2017-[address] one ty to 130 [facility] - adverse 00:00: Medical reaction 00 [place] statin Adverse Active throat [facility] Reaction swelling [facility] clindamy Adverse Active swelling [facility] rajiv Reaction [facility] vancomyc Adverse Active face [facility] in Reaction swelling, [facility] fever [facility] Jardianc Adverse Active severe [facility] e Reaction anxiety [facility] Iodine Adverse Active increases BS [facility] Reaction to [facility] - 400's,skin Memori a blisters l [facility] Azithrom Adverse Active decreased [facility] ycin Reaction B/P,palpitat Conc[place] kes - ions [facility] Lisinopr Adverse Active cough [facility] il Reaction [facility] Fenofibr Adverse Active face [facility] ate Reaction swelling [facility] Bactrim Adverse Active face [facility] Reaction swelling [facility] Levaquin Adverse Active hallucinatio C HI St Reaction ns [facility][note 3] Family History Family Member Diagnosis Comments Start Date Stop Date Source Natural father Hypertension [facility] Natural mother Diabetes [facility] Natural mother Hypertension [facility] Other Diabetes [facility] Social History Social Habit Start Date Stop Date Quantity Comments Source History SDOH Alcohol [facility] Std Drinks [facility] History SDOH Alcohol [facility] Binge [facility] Sex Assigned At [facility] History SDOH Alcohol 2018-06-18 2018-06-18 [facility] Smoking Status Start Date Stop Date Source Former smoker 2018-06-24 00:00:00 2018-06-24 00:00:00 [facility] Medications Ordered Filled Start Stop Current Ordering Indication Dosage Frequency Signature Comments Components Source Medication Medication Date Date Medication? Clinician (SIG) Name Name Metformin Metformin Yes Linnea [address] [facility] HCl HCl 1-16 [place] with a [facility] - 00:00: meal Memoria 00 [facility] famotidine 2017-07 Yes 20mg Take 1 [facility] [...] MCG morning on tablet an empty stomach. Procedures This patient has no known procedures. Encounters Start End Encounter Admission Attending Care Care Encounter Source Date/Time Date/Time Type Type Clinicians Facility Department ID 2020-02-18 2020-02-18 Outpatient Helen Cervantest [id number] [facility] 09:26:00 09:26:00 [facility] Medicine Medicine Outpati ent Clinics 2020-02-05 2020-02-05 Outpatient Helen Cervantest [id number] [facility] 08:00:00 08:00:00 [facility] Medicine l Medicine Outpati ent Clinics 2020-02-02 2020-02-02 Outpatient Helen [place] [id number] [facility] 18:03:00 18:03:00 [facility] Medicine l Medicine Outpati ent Clinics 2019-11-19 2019-11-19 Outpatient [facility] [place] [id number] [facility] 09:25:00 09:25:00 [facility] Medicine l Medicine Outpati ent Clinics 2019-11-10 2019-11-10 Outpatient [facility] [place] [id number] [facility] 10:08:00 10:08:00 [facility] Medicine l Medicine Outpati ent Clinics 2019-11-06 2019-11-06 [place] [id number] [facility] 08:00:00 08:00:00 [facility] Medicine Medicine Outpati ent Clinics 2019-10-30 2019-10-30 Outpatient [facility] [place] [id number] [facility] 15:58:00 15:58:00 [facility] Medicine Medicine Outpati ent Clinics 2019-10-27 2019-10-27 [facility] [id number] 11:16:00 11:16:00 [facility] Medicine Medicine Outpati ent Clinics 2019-08-07 2019-08-07 [facility] [id number] [facility] 08:40:00 08:40:00 [facility] Medicine Medicine Outpati ent Clinics 2019-05-01 2019-05-01 [facility] [id number] [address] 09:40:00 09:40:00 [facility] Medicine l Medicine Outpati ent Clinics 2019-01-30 2019-01-30 [facility] [id number] 08[facility]40:00 08:40:00 [facility] Medicine Medicine Outpati ent Clinics 2018-10-27 2018-10-27 [facility] [id number] [address] 06:29:00 06:29:00 [facility] Medicine Medicine Outpati ent Clinics 2018-10-22 2018-10-22 [facility] [id number] [address] 13:00:00 13:00:00 [facility] Medicine Medicine Outpati ent Clinics 2018-07-30 2018-07-30 [facility] [id number] 13:30:00 13:30:00 [facility] Medicine Medicine Outpati ent Clinics 2018-07-25 2018-07-25 [facility] [id number] [address] 19:48:00 19:48:00 [facility] Medicine l Medicine Outpati ent Clinics 2018-03-12 2018-03-12 [facility] [id number] [facility] 13:41:00 13:41:00 [facility] Medicine l Medicine Outpati ent Clinics 2018-02-27 2018-02-27 [facility] [id number] [facility] 14:46:00 14:46:00 [facility] Medicine Medicine Outpati ent Clinics 2018-02-20 2018-02-20 Outpatient Helen Bailon [id number] [address] 08:30:00 08:30:00 [facility] Outpati ent Clinics 2018-02-12 2018-02-12 Outpatient Helen Baioln [id number] 10:45:00 10:45:00 [facility] Outpati ent [facility] 2018-01-21 2018-01-21 Outpatient Helen Bailon [id number] 09:00:00 09:00:00 [facility] ent Clinics Results Test Description Test Time Test Comments Results Result [facility] e Comments TISSUE EXAM 2018-06-28 Surgical Pathology Report 08:38:00 Case: [id number] Authorizing Provider: Alex Ruano MD Collected: 06/24/2018 0802 Ordering Location: [address] Received: 06/24/2018 0809 Service Pathologist: Chon Andino MD Specimens: A) - Tumor, pituitary tumor B) - Tumor, pituitary tumor A.PITUITARY GLAND, TRANSSPHENOIDAL 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 PITUITARY GLAND, TRANSSPHENOIDAL HYPOPHYSECTOMY:NULL CELL ADENOMAENTRAPPED ADENOHYPOPHYSIS Signing Pathologist Direct Phone Line: [phone] y signed by Chon Andino MD on 06/28/2018 at 8:38 AMImmunoperoxidase stains performed on the second specimen show that the tumor has no staining for growth hormone, LH, FSH, TSH, prolactin, or ACTH. 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 The MIB-1 proliferation index is less than 1%. 42437 x 2; 54849; 22588; 98280 x 6; 29191Xhdpygztm adenoma A. Pituitary tumor; B. Pituitary tumorA. [...] Immunohistochemistry technical testing was performed at [facility], Pathology Laboratory where it was developed [...] H TESTED AT [facility] [address] [facility] 1538[facility] 7703 0 POCT-GLUCOSE [id number] 12:06:00 Test Item Value Reference Range Interpretation Comments POC-GLUCOSE METER 217 mg/dL 70-[address] [facility] [address] [facility] (test code = [place] [facility] 1538) [address] BASIC METABOLIC [id number] 07:18:00 Test Item Value Reference Range Interpretation [...] PATIEN TS. CBC W/PLT COUNT & AUTO [id number] 06:49:00 Test Item Value Reference Range Interpretation [...] (BEAKER) (test code = 2801) BASIC METABOLIC [id number] 23:52:00 Test Item Value Reference Range Interpretation [...] APPLICABLE FOR DIALYSIS PATIEN TS. SODIUM, RANDOM [id number] 23:49:00 Test Item Value Reference Range Interpretation Comments SODIUM URINE (BEAKER) (test code = < meq/L 243) Reference Range: No NormalsCBC W/PLT COUNT & AUTO [id number] 23:35:00 Test Item Value Reference Range Interpretation [...] (test code = 2801) CT, BRAIN, WITHOUT [id number] 22:57:00FINAL REPORT CT Head without contrast CLINICAL [...] [place] Verified Date/Time: 06/26/2018 22:57:28 Reading Location: [address] TransitionalReading Room -GLUCOSE [id number] 21:07:00 Test Item Value Reference Range Interpretation Comments POC-GLUCOSE METER 211 mg/dL 70-[address] [facility] [address] ([facility]) (test code = [facility] 1538) [address] BASIC METABOLIC [id number] 14:29:00 Test Item Value Reference Range Interpretation [...] PATIEN TS. CBC W/PLT COUNT & AUTO [id number] 14:25:00 Test Item Value Reference Range Interpretation [...] 417) IMMATURE GRANULOCYTES-RELATIVE 1 % 0-1 PERCENT (AKER) (test code = 2801) POCT-GLUCOSE [id number] 13:38:00 Test Item Value Reference Range Interpretation Comments POC-GLUCOSE METER 219 mg/dL 70-110 H TESTED AT [place] [address] ([facility]) (test code = [facility] [place] [facility] 1538) [address] POCT-GLUCOSE [id number] 12:34:00 Test Item Value Reference Range Interpretation Comments POC-GLUCOSE METER 193 mg/dL 70-110 H TESTED AT [place] [address] ([facility]) (test code = [facility] [place] 1538) [address] POCT-GLUCOSE [id number] 16:17:00 Test Item Value Reference Range Interpretation Comments POC-GLUCOSE METER 244 mg/dL 70-110 H TESTED AT [place] [address] ([facility]) (test code = [facility] [place] 1538) [address] POCT-GLUCOSE [id number] 12:08:00 Test Item Value Reference Range Interpretation Comments POC-GLUCOSE METER 229 mg/dL 70-110 H TESTED AT [place] [address] ([facility]) (test code = [facility] [employer] [place] 1538) [address] POCT-GLUCOSE [id number] 08:27:00 Test Item Value Reference Range Interpretation Comments POC-GLUCOSE METER 280 mg/dL 70-110 H TESTED AT [place] [address] ([facility]) (test code = [facility] [employer] [place] 1538) [address] OSMOLALITY, [id number] 05:16:00 Test Item Value Reference Range Interpretation Comments OSMOLALITY URINE ([facility]) (test 340 mOsm/kg 40-1,400 code = 614) SPECIFIC GRAVITY, [id number] 04:53:00 Test Item Value Reference Range Interpretation Comments SPECIFIC GRAVITY UA (BEAKER) (test code 1.010 1.001-1.035 = 468) POCT-GLUCOSE [id number] 22:29:00 Test Item Value Reference Range Interpretation Comments POC-GLUCOSE METER 257 mg/dL 70-[address] [facility] 67 ([facility] (test code = [facility] [place] 1538) [address] BASIC METABOLIC [id number] 17:49:00 Test Item Value Reference Range Interpretation [...] NOT APPLICABLE FOR DIALYSIS PATIEN TS. POCT-GLUCOSE [id number] 17:02:00 Test Item Value Reference Range Interpretation Comments POC-GLUCOSE METER 235 mg/dL 70-[address] [facility] 67[address] (BEAKER) (test code = [facility] [place] 1538) [address] POCT-GLUCOSE [id number] 12:06:00 Test Item Value Reference Range Interpretation Comments POC-GLUCOSE METER 249 mg/dL 70-[address] [facility] 67[address] (BEAKER) (test code = [facility] [place] 1538) [address] POCT-GLUCOSE [id number] 09:40:00 Test Item Value Reference Range Interpretation Comments POC-GLUCOSE METER 278 mg/dL 70-[address] [facility] 67 (BEAKER) (test code = [place] 1538) [address] BASIC METABOLIC [id number] 06:14:00 Test Item Value Reference Range Interpretation [...] S NOT APPLICABLE FOR DIALYSIS PATIEN TS. [id number] 06:03:00 Test Item Value Reference Range Interpretation [...] for patients with mechanical heart valves. SCREEN, [id number] 05:59:00 Test Item Value Reference Range Interpretation Comments TEST URINE (BEAKER) (test Negative code = 583) POCT-GLUCOSE [id number] 05:46:00 Test Item Value Reference Range Interpretation Comments POC-GLUCOSE METER 140 mg/dL 70-[address] [facility] 67[address] (BEAKER) (test code = [place] 1538) [address] CBC W/PLT COUNT & AUTO [id number] 05:46:00 Test Item Value Reference Range Interpretation Comments WHITE BLOOD CELL COUNT (BEAKER) 9.6 K/ L 3.5-10.5 (test code = 775) RED BLOOD CELL COUNT (BEAKER) 5.00 M/ L 3.93-5.22 (test code = 761) HEMOGLOBIN (BEAKER) (test code = 14.0 GM/DL 11.2-15.7 410) HEMATOCRIT (BEAKER) (test code = 42.1 % 34.1-44.9 411) MEAN CORPUSCULAR VOLUME (BEAKER) 84.2 fL 79.4-94.8 (test code = 753) [...] PERCENT (BEAKER) (test code = 2801) POCT-GLUCOSE [id number] 21:27:00 Test Item Value Reference Range Interpretation Comments POC-GLUCOSE METER 223 mg/dL 70-[address] [facility] 67[address] (BEAKER) (test code = [facility] 1538) [address] POCT-GLUCOSE [id number] 17:26:00 Test Item Value Reference Range Interpretation Comments POC-GLUCOSE METER 223 mg/dL 70-[address] [facility] 67[address] (BEAKER) (test code = [facility] 1538) [address] BASIC METABOLIC [id number] 16:43:00 Test Item Value Reference Range Interpretation [...] NOT APPLICABLE FOR DIALYSIS PATIEN TS. POCT-GLUCOSE [id number] 09:06:00 Test Item Value Reference Range Interpretation Comments POC-GLUCOSE METER 265 mg/dL 70-[address] [facility] 67[address] (BEAKER) (test code = [facility] 1538) [address] POCT-GLUCOSE [id number] 00:22:00 Test Item Value Reference Range Interpretation Comments POC-GLUCOSE METER 210 mg/dL 70-110 H TESTED AT [place] [address] ([facility]) (test code = [place] 1538) [address] POCT-GLUCOSE [id number] 20:27:00 Test Item Value Reference Range Interpretation Comments POC-GLUCOSE METER 235 mg/dL 70-110 H TESTED AT [place] [address] ([facility]) (test code = [place] 1538) [address] POCT-GLUCOSE [id number] 17:10:00 Test Item Value Reference Range Interpretation Comments POC-GLUCOSE METER 264 mg/dL 70-110 H TESTED AT [place] [address] ([facility]) (test code = [place] 1538) [address] POCT-GLUCOSE [id number] 16:00:00 Test Item Value Reference Range Interpretation Comments POC-GLUCOSE METER 242 mg/dL 70-110 H TESTED AT [place] [address] ([facility]) (test code = [place] 1538) [address] POCT-GLUCOSE [id number] 08:54:00 Test Item Value Reference Range Interpretation Comments POC-GLUCOSE METER 224 mg/dL 70-110 H TESTED AT [place] [address] ([facility]) (test code = [place] 1538) [address] POCT-GLUCOSE [id number] 21:30:00 Test Item Value Reference Range Interpretation Comments POC-GLUCOSE METER 254 mg/dL 70-110 H TESTED AT [place] [address] ([facility]) (test code = [place] 1538) [address] POCT-GLUCOSE [id number] 17:23:00 Test Item Value Reference Range Interpretation Comments POC-GLUCOSE METER 193 mg/dL 70-110 H TESTED AT [place] [address] ([facility]) (test code = [place] 1538) [address] POCT-GLUCOSE [id number] 11:53:00 Test Item Value Reference Range Interpretation Comments POC-GLUCOSE METER 179 mg/dL 70-110 H TESTED AT [place] [address] ([facility]) (test code = [place] 1538) [address] [id number] 10:15:00 Test Item Value Reference Range Interpretation Comments CORTISOL, TOTAL ([facility]) (test code 4.7 ug/dL 3.7-19.4 = 2755) POCT-GLUCOSE [id number] 08:07:00 Test Item Value Reference Range Interpretation Comments POC-GLUCOSE METER 184 mg/dL 70-110 H TESTED AT [place] [address] ([facility]) (test code = [place] 1538) [address] CT, BRAIN, WITHOUT [id number] 22:07:00FINAL REPORT CT Head without contrast CLINICAL [...] [place] Verified Date/Time: 06/20/2018 22:07:25 Reading Location: [address] Transitional Reading Room POCT-GLUCOSE [id number] 21:00:00 Test Item Value Reference Range Interpretation Comments POC-GLUCOSE METER 227 mg/dL 70-[address] [facility] 67 ([facility]) (test code = [place] [facility] 1538) [address] POCT-GLUCOSE [id number] 16:57:00 Test Item Value Reference Range Interpretation Comments POC-GLUCOSE METER 216 mg/dL 70-110 H TESTED AT [place] [address] ([facility]) (test code = [place] [facility] 1538) [address] POCT-GLUCOSE [id number] 13:11:00 Test Item Value Reference Range Interpretation Comments POC-GLUCOSE METER 198 mg/dL 70-[address] [facility] 67[address] ([facility] (test code = [place] [facility] 1538) [address] POCT-GLUCOSE [id number] 07:47:00 Test Item Value Reference Range Interpretation Comments POC-GLUCOSE METER 213 mg/dL 70-[address] [facility] 67[address] ([facility]) (test code = [place] [facility] 1538) [address] BASIC METABOLIC [id number] 06:57:00 Test Item Value Reference Range Interpretation Comments SODIUM (BEAKER) 138 meq/L 136-145 (test code = 381) POTASSIUM (BEAKER) 3.9 meq/L 3.5-5.1 (test code = 379) CHLORIDE (BEAKER) 105 meq/L 98-107 (test code = 382) CO2 (BEAKER) (test 24 meq/L 22-29 code = 355) BLOOD UREA NITROGEN 12 mg/dL 7-21 (BEAKER) (test code = 354) CREATININE (BEAKER) 0.73 mg/dL 0.57-1.25 (test code = 358) GLUCOSE RANDOM 192 mg/dL 70-105 H (BEAKER) (test code = 652) CALCIUM (BEAKER) 8.8 mg/dL 8.4-10.2 (test code = 697) EGFR (BEAKER) (test 85 mL/min/1.73 ESTIMA EDOUARD GFR IS code = 1092) sq m NOT ACCURATE CREATININE CLEARANCE IN PREDICTING GLOMERULAR FILTRATION RATE . ESTIMATED GFR I S NOT APPLICABLE FOR DIALYSIS PATIEN TS. POCT-GLUCOSE [id number] 05:24:00 Test Item Value Reference Range Interpretation Comments POC-GLUCOSE METER 192 mg/dL 70-[address] [facility] ([facility] (test code = [facility] [place] [facility] 1538) [address] CT, CTANGIO [id number] 01:03:00FINAL REPORT CLINICAL HISTORY: Stroke TECHNIQUE: Initially, [...] MDReport Verified Date/Time: 06/20/2018 01:03:44 Reading Location: [address] Transitional Reading Room [facility] 2018-06-20 01:03:00FINAL REPORT CLINICAL HISTORY: [...] [place] Verified Date/Time: 06/20/2018 01:03:44 Reading Location: [address] Reading Room POCT-GLUCOSE METER 2018-06-20 00:40:00 Test Item Value Reference Range Interpretation Comments POC-GLUCOSE METER 283 mg/dL 70-110 H TESTED AT [place] [address] ([facility] (test code = [place] [facility] 1538) [address] POCT-GLUCOSE [id number] 21:21:00 Test Item Value Reference Range Interpretation Comments POC-GLUCOSE METER 343 mg/dL 70-110 H TESTED AT [place] [address] ([facility]) (test code = [facility] [place] [facility] 1538) [address] SCREEN, [id number] 18:52:00 Test Item Value Reference Range Interpretation Comments TEST URINE (BEAKER) (test Negative code = 583) POCT-GLUCOSE [id number] 17:17:00 Test Item Value Reference Range Interpretation Comments POC-GLUCOSE METER 287 mg/dL 70-110 H TESTED AT [place] [address] ([facility]) (test code = [place] [facility] 1538) [address] [id number] 15:59:00 Test Item Value Reference Range Interpretation Comments RPR SCREEN (AKER) (test code = Nonreactive Nonreactive 420) POCT-GLUCOSE [id number] 15:07:00 Test Item Value Reference Range Interpretation Comments POC-GLUCOSE METER 323 mg/dL 70-110 H TESTED AT [place] [address] ([facility]) (test code = [facility] [place] [facility] 1538) [address] T4, [id number] 13:11:00 Test Item Value Reference Range Interpretation Comments FREE T4 (BEAKER) (test code = 655) 0.89 ng/dL 0.70-1.48 HIV-1 ANTIGEN WITH HIV-1/2 [id number] 13:11:00 Test Item Value Reference Range Interpretation Comments HIV-1 ANTIGEN WITH HIV 1\\T\\2 Nonreactive Nonreactive ANTIBODY (2) (BEAKER) (test code = 2586) RAPID DRUG SCREEN, [id number] 12:47:00 Test Item Value Reference Range Interpretation [...] situations. Chain of custody not maintained. Some admf-kjz-mqhnhay medications, as well as adulterants, may cause inaccurate results. Clinical correlation should be applied. A more comprehensive drug screen or confirmation of a detected drug may be performed upon request. POCT-GLUCOSE [id number] 12:37:00 Test Item Value Reference Range Interpretation Comments POC-GLUCOSE METER 292 mg/dL 70-[address] [facility] [address] (BEAKER) (test code = [place] [facility] 1538) [address] HEMOGLOBIN [id number] 12:35:00 Test Item Value Reference Range Interpretation Comments HEMOGLOBIN A1C (BEAKER) (test code = 7.9 % 4.3-6.1 H 368) OSMOLALITY, [id number] 12:34:00 Test Item Value Reference Range Interpretation Comments OSMOLALITY, SERUM (BEAKER) (test 310 mOsm/kg 275-295 H code = 615) C-REACTIVE [id number] 12:28:00 Test Item Value Reference Range Interpretation Comments C-REACTIVE PROTEIN (BEAKER) (test 0.81 mg/dL 0.00-0.50 H code = 676) OSMOLALITY, [id number] 12:22:00 Test Item Value Reference Range Interpretation Comments OSMOLALITY URINE (BEAKER) (test 247 mOsm/kg 40-1,400 code = 614) CBC W/PLT COUNT & AUTO [id number] 12:14:00 Test Item Value Reference Range Interpretation [...] PERCENT (BEAKER) (test code = 2801) POCT-GLUCOSE [id number] 10:30:00 Test Item Value Reference Range Interpretation Comments POC-GLUCOSE METER 341 mg/dL 70-[address] [facility] (BROOK) (test code = [place] 1538) [id number] 06:17:00 Test Item Value Reference Range Interpretation Comments PROLACTIN (BROOK) (test code = 23.34 ng/mL 5.18-26.53 758) POCT-GLUCOSE [id number] 05:55:00 Test Item Value Reference Range Interpretation Comments POC-GLUCOSE METER 285 mg/dL 70-[address] [facility] ([place]) (test code = [place] 1538) [id number] MR, BRAIN, [id number] 02:25:00Pituitary protocolCr 0.6FINAL REPORT MRI brain with and without contrast Comparison: None. 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 Signed: Narcisa Mcdonald [facility] Verified Date/Time: 06/19/2018 02:25:15 Reading Location: [facility] B1 C013Y CT Body Reading Room TSH/FREE T4 IF [id number] 00:26:00 Test Item Value Reference Range Interpretation Comments THYROID STIMULATING HORMONE 0.41 uIU/mL 0.35-4.94 (BEAKER) (test code = 772) BASIC METABOLIC [id number] 00:07:00 Test Item Value Reference Range Interpretation [...] DIALYSIS PATIEN TS. URINALYSIS W/ REFLEX URINE [id number] 23:13:00 Test Item Value Reference Range Interpretation [...] code = 516) SOURCE(BEAKER) (test code = 2795)
--- OUTSIDE RECORDS SUMMARY | 2020-03-06 10:48 | XMS REPORT ---
[...] J30.9 Active Problem Hyperlipidemia E78.5 Active Problem Vaginal joseph B37.3 Active Problem Essential hypertension I10 Activ e Problem Controlled type 2 diabetes mellitus E11.65 Active with hyperglycemia, unspecified whether rat exterminator insulin use Problem Seasonal allergic rhinitis due to J30.1 Active pollen Problem Migraines G43.909 Active Problem Dental abscess K04.7 Active Problem Fatty liver K76.0 Active Assessment Fatty liver K76.0 Active Assessment Hypothyroidism E03.9 Active Assessment Controlled type 2 diabetes mellitus E11.65 Active with hyperglycemia, unspecified whether rat exterminator insulin use Assessment Hypertension I10 Active Problem Hypothyroidism E03.9 Active Assessment Hyperlipidemia E78.5 Active Problem Anxiety F41.9 Active Medications Medication Code Code Instructions Start End Status Dosage System Date Date GlyBURIDE [facility] 77142690402 5 MG Active TAKE 2 TABLETS BY MOUTH TWICE A DAY WITH A MEAL Losartan Potassium [facility] 04056580880 100 MG Active T NELSON 1 TABLET BY MOUTH EVERY DAY Novolin N [facility] 68803769819 100 UNIT/ML Active 17 uni ts Subcutaneous Twice a day MetFORMIN HCl ER [facility] 14892773821 750 MG Orally Activ e 1 tablet Once a day with evening meal Levothyroxine Sodium [facility] 94361816982 112 MCG Orally Active 1 tablet Once a day in the morning on an empty stomach Hydrochlorothiazide [facility] 20475768435 12.5 MG Orally A ctive 1 capsule Once a day in the morning Metformin HCl [facility] 34985470525 1000 MG Orally Aug 07, Active 1 tablet Twice a day 2019 with a meal Hydrocortisone ND 35851489036 10 MG Orally Active 1 tablet every 12 hrs with food or milk Meclizine HCl [facility] 13005181560 25 MG Oral Active KARLO E 1 TABLET BY MOUTH EVERY 8 HOURS NEEDED Nitrofurantoin Monohyd ND 10736253745 100 MG Oral A ctive TAKE 1 Macro CAPSULE BY MOUTH EVERY 12 HOURS FOR 7 DAYS Results Name Result Date Reference Range Unit Abnormali ty Flag HEMOGLOBIN A1C ----A1C 9.8 [id number] Summary Purpose eClinicalWorks Submission
--- OUTSIDE RECORDS SUMMARY | 2020-03-06 10:48 | XMS REPORT ---
[...] Status Dosage System Date Date Metformin HCl [facility] 28396533704 1000 MG Orally Aug 07, Active 1 tablet Twice a day 2019 with a meal Levothyroxine [facility] 43647367858 112 MCG Orally Active 1 tablet Sodium Once a day in the morning on an empty stomach Results No Known Results Summary Purpose eClinicalWorks Submission
[2020-03-06] MEDS ORDERED: ASPIRIN 81 MG CHEWABLE TABLET ONE (11:22)
[2020-03-06] MEDS ORDERED: ONDANSETRON 4 MG/2 ML VIAL ONE (11:23)
[2020-03-06] MEDS ORDERED: MORPHINE 4 MG/ML SYR ONE (11:23)
[2020-03-06 11:25] LABS: Absolute Lymphocytes (CBC) 1.9 K/uL (0.7-4.9); Hematocrit 43.7 % (36.0-45.0); Lymphocytes % 18.7 % (15.3-44.8); MPV 9.7 fL (7.6-11.3); RBC Red Blood Cell Count 5.48 M/uL (3.86-4.86)
[2020-03-06 11:26] LABS: Protime INR 1.05
[2020-03-06 11:42] LABS: ALT/SGPT 150 U/L (12-78); AST/SGOT 66 U/L (15-37); Albumin 3.7 g/dL (3.4-5.0); Alkaline Phosphatase 87 U/L (45-117); BUN Blood Urea Nitrogen 8 mg/dL (7-18); Bicarbonate 27 mmol/L (21-32); Bilirubin Direct 0.1 mg/dL (0-0.2); Bilirubin Total 0.5 mg/dL (0.2-1.0); Glucose Level 151 mg/dL (74-106); Magnesium 2.1 mg/dL (1.8-2.4); NT PRO-BNP 37 pg/mL (<125); Potassium 3.6 mmol/L (3.5-5.1); Protein, Total 8.1 g/dL (6.4-8.2); Sodium Level 138 mmol/L (136-145); Troponin (Emerg Dept Use Only) < 0.02 ng/mL (0.0-0.045)
--- NOTE | 2020-03-06 12:30 | RAD REPORT ---
EXAM DESCRIPTION: RAD - Chest Single View - 03/06/2020 11:34 am CLINICAL HISTORY: CHEST PAIN Chest pain. COMPARISON: Chest Single View dated 01/07/2020; Chest Single View dated 01/06/2020; Chest Single View dated 11/14/2019; Chest Single View dated 07/22/2019 FINDINGS: Portable technique limits examination quality. The lungs are grossly clear. The heart is normal in size. No displaced fractures. IMPRESSION: No acute intrathoracic process suspected.
--- NOTE | 2020-03-06 12:38 | RAD REPORT ---
EXAM DESCRIPTION: US - Extrem Venous W Compress Efren - 03/06/2020 12:24 pm CLINICAL HISTORY: Pain;Swelling Bilateral leg edema and swelling. COMPARISON: Extrem Venous W Compress Efren dated 03/23/2019 TECHNIQUE: Real-time sonographic interrogation of the left and right lower extremity deep venous sys tems was performed. FINDINGS: Normal compressibility, flow augmentation, phasic flow and spontaneous flow is identified in both the left and right lower extremity deep venous systems. IMPRESSION: No sonographic evidence of left or right lower extremity deep venous thrombosis.
[2020-03-06] MEDS ORDERED: MORPHINE 2 MG/ML SYR ONE (12:56)
[2020-03-06] MEDS ORDERED: NA CHLORIDE 0.9% 1,000 ML ONE (14:59)
[2020-03-06] MEDS ORDERED: LEVALBUTEROL 1.25 MG/3 ML NEB ONE (16:56)
[2020-03-06] MEDS ORDERED: DIPHENHYDRAMINE 50 MG/ML VIAL ONE (17:01)
--- NOTE | 2020-03-06 17:32 | ER ---
Nurse's Notes [facility] Name: Chantal Stout Age: 49 yrs Sex: Female : 1970 Arrival Date: 03/06/2020 Time: 10:47 Bed 18 Private MD: Diagnosis: Chest pain, unspecified;Asthma Presentation: 03/06 11:06 Chief complaint: Patient states: chest pain that started today described as heaviness, em also reports shortness of breath, swelling of feet for several days, denies fever or cough. Coronavirus screen: Client denies travel out of the [place] in the last 14 days. Ebola Screen: Patient negative for fever greater than or equal to 101.5 degrees Fahrenheit, and additional compatible Ebola Virus Disease symptoms Patient denies exposure to infectious person. Patient denies travel to an Ebola-affected area in the 21 days before illness onset. No symptoms or risks identified at this time. Initial Sepsis Screen: Does the patient meet any 2 criteria? HR > 90 bpm. Does the patient have a suspected source of infection? No. Patient's initial sepsis screen is negative. Risk Assessment: Do you want to hurt yourself or someone else? Patient reports no desire to harm self or others. Onset of symptoms was March 06, 2020. 11:06 Method Of Arrival: Ambulatory em 11:06 Acuity: NOÉ 3 em Historical: - Allergies: 11:09 Bactrim; em 11:09 Cephalexin; em 11:09 Codeine; em 11:09 Iodine; em 11:09 Levaquin; em 11:09 Sulfa (Sulfonamide Antibiotics); em - PMHx: 11:09 ADD/ADHD; Anemia; Asthma; Diabetes - NIDDM; Hypertension; Hypothyroidism; pituitary em tumor- surgically removed Jun 24; - Immunization history:: Adult Immunizations up to date. - Social history:: Smoking status: Patient denies any tobacco usage or history of. Screenin:16 Abuse screen: Denies threats or abuse. Nutritional screening: No deficits noted. em Tuberculosis screening: No symptoms or risk factors identified. Fall Risk None identified. Assessment: 11:08 General: Appears in no apparent distress. comfortable, Behavior is calm, cooperative, em appropriate for age, Denies fever. Pain: Complains of pain in chest Pain radiates to back Pain currently is 4 out of 10 on a pain scale. Quality of pain is described as heavy, Pain began today. Neuro: Level of Consciousness is awake, alert, obeys commands, Oriented to person, place, time, situation, Appropriate for age. Cardiovascular: Reports chest pain, shortness of breath, Capillary refill < 3 seconds Patient's skin is warm and dry. Rhythm is sinus rhythm. Respiratory: Reports shortness of breath Airway is patent Respiratory effort is even, unlabored, Respiratory pattern is regular, symmetrical, Denies cough. GI: Abdomen is round obese. Derm: Skin is intact, is healthy with good turgor, Skin is pink, warm \\T\\ dry. Musculoskeletal: Capillary refill < 3 seconds, Range of motion: intact in all extremities. 11:28 Reassessment: pt currently does not want to have the morphine at this time, provider em notified, currently rates pain 4/10. 12:32 Reassessment: Patient appears in no apparent distress at this time. Patient and/or em family updated on plan of care and expected duration. Pain level reassessed. Patient is alert, oriented x 3, equal unlabored respirations, skin warm/dry/pink. 12:45 Reassessment: pt reports chest heaviness, states she is "real weary about pain em medication" provider notified, will administer 1 mg of morphine x 1 IVP. 13:30 Reassessment: Patient appears in no apparent distress at this time. Patient and/or em family updated on plan of care and expected duration. Pain level reassessed. Patient is alert, oriented x 3, equal unlabored respirations, skin warm/dry/pink. Patient denies pain at this time. Patient states feeling better. Patient states symptoms have improved. 15:00 Reassessment: pt states she cannot have CT with iodine due to it causing her glucose to em shoot up to over 400, provider notified, provider ordered DD. 15:40 Reassessment: Patient appears in no apparent distress at this time. pending results em from DD. 16:45 Reassessment: reports that she is given 12.5 mg of benadryl prior to getting a CT em because it helps lowers blood glucose, provider notified of pt request. 17:05 Reassessment: wheeled to CT via wheelchair. em 17:50 Reassessment: Patient appears in no apparent distress at this time. Patient and/or em family updated on plan of care and expected duration. Pain level reassessed. Patient is alert, oriented x 3, equal unlabored respirations, skin warm/dry/pink. Vital Signs: 11:06 BP 165 / 102; Pulse 97; Resp 18; Temp 98.1(O); Pulse Ox 99% on R/A; Weight 134.26 kg; em Height 5 ft. 4 in. (162.56 cm); Pain 4/10; 12:31 BP 123 / 77; Pulse 95; Resp 18; Pulse Ox 99% on R/A; em 13:30 BP 126 / 65; Pulse 103; Resp 20; Pulse Ox 98% on R/A; em 14:30 BP 149 / 91; Pulse 100; Resp 18; Pulse Ox 97% on R/A; em 15:30 BP 155 / 97; Pulse 102; Resp 20; Pulse Ox 97% on R/A; em 16:30 BP 152 / 68; Pulse 87; Resp 18; Pulse Ox 100% on R/A; em 17:27 BP 142 / 82; Pulse 88; Resp 20; Pulse Ox 99% on Nebulizer Mask; Pain 0/10; em 11:06 Body Mass Index 50.81 (134.26 kg, 162.56 cm) em ED Course: 10:47 Patient arrived in ED. ds1 10:51 Jonatan Chao NP is PHCP. pm1 10:51 Marco Vargas MD is Attending Physician. pm1 10:57 EKG done, by ED staff, reviewed by Jonatan Chao NP. dh3 10:58 Castro Canales, RN is Primary Nurse. em 11:08 Triage completed. em 11:09 Arm band placed on. em 11:10 Initial lab(s) drawn, by hi, sent to lab. Inserted saline lock: 20 gauge in right dh3 forearm, using aseptic technique. Blood collected. 11:16 Patient has correct armband on for positive identification. Placed in gown. Bed in low em position. Call light in reach. Side rails up X2. desk monitor on. Pulse ox on. NIBP on. 11:16 Patient maintains SpO2 saturation greater than 95% on room air. em 11:35 XRAY Chest (1 view) In Process Unspecified. EDMS 12:23 Extrem Venous W Compression Efren US In Process Unspecified. EDMS 15:35 D-Dimer Sent. 3 17:28 CT Chest For PE Angio In Process Unspecified. EDMS 17:55 No provider procedures requiring assistance completed. IV discontinued, intact, em bleeding controlled, No redness/swelling at site. Pressure dressing applied. Administered Medications: 11:28 Drug: Aspirin Chewable Tablet 324 mg Route: PO; em 13:10 Follow up: Response: No adverse reaction em 12:47 Drug: Zofran (Ondansetron) 4 mg Route: IVP; Site: right forearm; em 13:30 Follow up: Response: No adverse reaction em 12:50 Not Given (Physician Discretion): morphine 4 mg IVP once; RASS on ADMIN: Combtv4, Very em Agttd3, Agttd2, Rstlss1, AlertClm0, Drwsy-1, Lt Sdtn-2, Mod Sdtn-3, Dp Sdtn-4, UnArsble-5 12:50 Drug: morphine 1 mg Route: IVP; Site: right forearm; em 13:30 Follow up: Response: No adverse reaction; Marked relief of symptoms; Pain is decreased em 15:54 Drug: NS 0.9% 1000 ml Route: IV; Rate: 1000 ml; Site: right forearm; em 16:53 Follow up: IV Status: Completed infusion; IV Intake: 1000ml em 16:55 Drug: Benadryl 12.5 mg Route: IVP; Site: right forearm; em 17:00 Follow up: Response: No adverse reaction em 17:27 Drug: Xopenex 1.25 mg Route: Inhalation; em 17:54 Follow up: Response: No adverse reaction; Marked relief of symptoms em Intake: 16:53 IV: 1000ml; Total: 1000ml. em Outcome: 17:32 Discharge ordered by MD. pm1 17:55 Discharged to home ambulatory. em 17:55 Condition: good 17:55 Discharge instructions given to patient, Instructed on discharge instructions, follow up and referral plans. medication usage, Demonstrated understanding of instructions, follow-up care, medications, Prescriptions given X 2. 18:02 Patient left the ED. em Signatures: Dispatcher [employer] EDMS Castro Canales RN RN em Mikayla Maguire ds1 Jonatan Chao NP ACADEMIC INTERVENTIONIST pm1 Sophia Mckeon 3
--- NOTE | 2020-03-06 17:33 | EDPHYS ---
Physician Documentation [facility] Name: Chantal Stout Age: 49 yrs Sex: Female : 1970 Arrival Date: 03/06/2020 Time: 10:47 Bed 18 Private MD: KRUPA Physician Marco Vargas HPI: 03/06 11:05 This 49 yrs old Female presents to ER via Ambulatory with complaints of Chest pm1 Pain, Dizziness. 11:05 The patient or guardian reports chest pain that is located primarily in the mid-sternal pm1 area. Onset: today, 2.5 hour(s) ago. The pain does not radiate. Associated signs and symptoms: Pertinent positives: palpitations, shortness of breath, Pertinent negatives: abdominal pain, cough, headache, nausea, vomiting. The chest pain is described as a heaviness. Duration: The patient or guardian reports a single episode, that is still ongoing. Modifying factors: The symptoms are alleviated by nothing. the symptoms are aggravated by nothing. The patient has experienced similar episodes in the past, a few times, but today's symptoms are worse. Historical: - Allergies: 11:09 Bactrim; em 11:09 Cephalexin; em 11:09 Codeine; em 11:09 Iodine; em 11:09 Levaquin; em 11:09 Sulfa (Sulfonamide Antibiotics); em - PMHx: 11:09 ADD/ADHD; Anemia; Asthma; Diabetes - NIDDM; Hypertension; Hypothyroidism; pituitary em tumor- surgically removed Jun 24; - Immunization history:: Adult Immunizations up to date. - Social history:: Smoking status: Patient denies any tobacco usage or history of. ROS: 11:05 Constitutional: Negative for fever, chills, and weight loss. pm1 11:05 Abdomen/GI: Negative for abdominal pain, nausea, vomiting, diarrhea, and constipation, Back: Negative for injury and pain, MS/Extremity: Negative for injury and deformity, Skin: Negative for injury, rash, and discoloration. 11:05 Cardiovascular: Positive for chest pain, edema, palpitations. 11:05 Respiratory: Positive for shortness of breath, Negative for cough, sputum production, wheezing. 11:05 Neuro: Positive for dizziness, Negative for headache, numbness, tingling, weakness. Exam: 11:05 Constitutional: This is a well developed, well nourished patient who is awake, alert, pm1 and in no acute distress. Head/Face: Normocephalic, atraumatic. 11:05 Back: No spinal tenderness. No costovertebral tenderness. Full range of motion. Skin: Warm, dry with normal turgor. Normal color with no rashes, no lesions, and no evidence of cellulitis. MS/ Extremity: Pulses equal, no cyanosis. Neurovascular intact. Full, normal range of motion. 11:05 Chest/axilla: Inspection: normal, Palpation: crepitus, is not appreciated, tenderness, of the mid-sternal area, that totally reproduces the patient's complaints. 11:05 Cardiovascular: Exam negative for acute changes, Rate: normal, Rhythm: regular, Pulses: no pulse deficits are appreciated, Edema: pedal edema, that is mild. 11:05 Respiratory: Exam negative for acute changes, respiratory distress, shortness of breath. 11:05 Abdomen/GI: Exam negative for acute changes, Inspection: obese Palpation: abdomen is soft and non-tender, in all quadrants. 11:05 Neuro: Exam negative for acute changes, Orientation: is normal, Motor: is normal, moves all fours. Vital Signs: 11:06 BP 165 / 102; Pulse 97; Resp 18; Temp 98.1(O); Pulse Ox 99% on R/A; Weight 134.26 kg; em Height 5 ft. 4 in. (162.56 cm); Pain 4/10; 12:31 BP 123 / 77; Pulse 95; Resp 18; Pulse Ox 99% on R/A; em 13:30 BP 126 / 65; Pulse 103; Resp 20; Pulse Ox 98% on R/A; em 14:30 BP 149 / 91; Pulse 100; Resp 18; Pulse Ox 97% on R/A; em 15:30 BP 155 / 97; Pulse 102; Resp 20; Pulse Ox 97% on R/A; em 16:30 BP 152 / 68; Pulse 87; Resp 18; Pulse Ox 100% on R/A; em 17:27 BP 142 / 82; Pulse 88; Resp 20; Pulse Ox 99% on Nebulizer Mask; Pain 0/10; em 11:06 Body Mass Index 50.81 (134.26 kg, 162.56 cm) em MDM: 10:53 Patient medically screened. pm1 11:28 ED course: Patient refused pain medications. pm1 15:31 Refusal of service: The patient/guardian displays adequate decision making capability pm1 and despite a detailed discussion of alternatives, benefits, risks, and consequences refuses: CT Scan, Patient refused CT chest. Therefore ordered d-dimer. 16:32 ED course: Patient will do the CT chest now. pm1 17:31 Data reviewed: vital signs. Data interpreted: Pulse oximetry: on room air is 99 %. pm1 Interpretation: normal. Physician consultation: Frank Haro MD negative for PE. 17:31 Counseling: I had a detailed discussion with the patient and/or guardian regarding: the pm1 historical points, exam findings, and any diagnostic results supporting the discharge/admit diagnosis, lab results, radiology results, the need for outpatient follow up, to return to the emergency department if symptoms worsen or persist or if there are any questions or concerns that arise at home. 03/06 10:58 Order name: Basic Metabolic Panel; Complete Time: 11:52 pm03/06 10:58 Order name: CBC with Diff; Complete Time: 11:52 pm03/06 10:58 Order name: LFT's; Complete Time: 11:52 pm03/06 10:58 Order name: Magnesium; Complete Time: 11:52 pm03/06 10:58 Order name: NT PRO-BNP; Complete Time: 11:52 pm03/06 10:58 Order name: PT-INR; Complete Time: 11:52 pm03/06 10:58 Order name: Troponin (emerg Dept Use Only); Complete Time: 11:52 pm03/06 10:58 Order name: XRAY Chest (1 view); Complete Time: 13:21 pm03/06 10:58 Order name: Extrem Venous W Compression Efren US; Complete Time: 13:21 pm03/06 10:59 Order name: TSH; Complete Time: 11:52 pm03/06 10:59 Order name: T4 Free; Complete Time: 11:52 pm03/06 14:44 Order name: Troponin (emerg Dept Use Only); Complete Time: 15:30 pm03/06 15:31 Order name: D-Dimer; Complete Time: 16:35 pm1 03/06 10:58 Order name: EKG; Complete Time: 10:58 pm1 03/06 10:58 Order name: Cardiac monitoring; Complete Time: 11:10 pm1 03/06 10:58 Order name: EKG - Nurse/Tech; Complete Time: 11:10 pm1 03/06 10:58 Order name: IV Saline Lock; Complete Time: 11:10 pm1 03/06 10:58 Order name: Labs collected and sent; Complete Time: 11:10 pm1 03/06 10:58 Order name: O2 Per Protocol; Complete Time: 11:10 pm1 03/06 10:58 Order name: O2 Sat Monitoring; Complete Time: 11:10 pm1 03/06 14:44 Order name: CT Chest For PE Angio; Complete Time: 08:16 pm1 Administered Medications: 11:28 Drug: Aspirin Chewable Tablet 324 mg Route: PO; em 13:10 Follow up: Response: No adverse reaction em 12:47 Drug: Zofran (Ondansetron) 4 mg Route: IVP; Site: right forearm; em 13:30 Follow up: Response: No adverse reaction em 12:50 Not Given (Physician Discretion): morphine 4 mg IVP once; RASS on ADMIN: Combtv4, Very em Agttd3, Agttd2, Rstlss1, AlertClm0, Drwsy-1, Lt Sdtn-2, Mod Sdtn-3, Dp Sdtn-4, UnArsble-5 12:50 Drug: morphine 1 mg Route: IVP; Site: right forearm; em 13:30 Follow up: Response: No adverse reaction; Marked relief of symptoms; Pain is decreased em 15:54 Drug: NS 0.9% 1000 ml Route: IV; Rate: 1000 ml; Site: right forearm; em 16:53 Follow up: IV Status: Completed infusion; IV Intake: 1000ml em 16:55 Drug: Benadryl 12.5 mg Route: IVP; Site: right forearm; em 17:00 Follow up: Response: No adverse reaction em 17:27 Drug: Xopenex 1.25 mg Route: Inhalation; em 17:54 Follow up: Response: No adverse reaction; Marked relief of symptoms em Disposition: 03/06/20 17:32 Discharged to Home. Impression: Chest pain, unspecified, Asthma. - Condition is Stable. - Discharge Instructions: Asthma, Adult, Nonspecific Chest Pain. - Prescriptions for Albuterol Sulfate 2.5 mg /3 mL (0.083 %) Inhalation Solution for Nebulization - inhale 1 unit by NEBULIZATION route every 8 hours As needed; 1 box. Albuterol Sulfate 90 mcg/actuation - inhale 1-2 puff by INHALATION route every 4-6 hours; 1 Inhaler. - Medication Reconciliation Form, Thank You Letter, Antibiotic Education, Prescription Opioid Use form. - Follow up: Emergency Department; When: As needed; Reason: Worsening of condition. Follow up: Private Physician; When: 2 - 3 days; Reason: Recheck today's complaints, Continuance of care, Re-evaluation by your physician. - Problem is new. - Symptoms have improved. Addendum: 03/08/2020 08:15 Co-signature as Attending Physician, Marco Vargas MD I agree with the assessment and c gutierrez plan of care. Signatures: Dispatcher [employer] Marco Frazier MD MD cha Munoz, Edgar, RN RN em Jonatan Chao, STEFANIE TUBE BUILDER pm1 Corrections: (The following items were deleted from the chart) 08 17:32 17:32 03/06/2020 17:32 Discharged to Home. Impression: Chest pain, unspecified. pm1 Condition is Stable. Forms are Medication Reconciliation Form, Thank You Letter, Antibiotic Education, Prescription Opioid Use. Follow up: Emergency Department; When: As needed; Reason: Worsening of condition. Follow up: Private Physician; When: 2 - 3 days; Reason: Recheck today's complaints, Continuance of care, Re-evaluation by your physician. Problem is new. Symptoms have improved. pm1 18:02 17:32 03/06/2020 17:32 Discharged to Home. Impression: Chest pain, unspecified; Asthma. em Condition is Stable. Forms are Medication Reconciliation Form, Thank You Letter, Antibiotic Education, Prescription Opioid Use. Follow up: Emergency Department; When: As needed; Reason: Worsening of condition. Follow up: Private Physician; When: 2 - 3 days; Reason: Recheck today's complaints, Continuance of care, Re-evaluation by your physician. Problem is new. Symptoms have improved. pm1
--- NOTE | 2020-03-06 17:42 | RAD REPORT ---
EXAM DESCRIPTION: CT - Chest For Pe Angio - 03/06/2020 5:28 pm CLINICAL HISTORY: Chest pain. Chest pain;SOB COMPARISON: No comparisons TECHNIQUE: CT angiogram of the pulmonary arteries was performed with MIP. All CT scans are performed using dose optimization technique as appropriate and may include automated exposure control or mA/KV adjustment according to patient size. FINDINGS: No evidence of pulmonary thromboembolism. No acute aortic finding demonstrated. The lungs are clear. No significant pericardial or pleural fluid. No concerning bony finding. IMPRESSION: No evidence of pulmonary thromboembolism.
[2020-03-06 18:11] VITALS: TEMP 98.1
[2020-03-06 18:18] VITALS: BP 142/82; O2SAT 99
--- NOTE | 2020-03-07 15:36 | EKG ---
Test Date: 2020-03-06 Test Time: 10:57:53 Principal Consulting Engineer: CHANDRIKA MEASUREMENT RESULTS: Intervals: Rate: 91 SC: 138 QRSD: 82 QT: 366 QTc: 450 [place]: P: 48 SC: 138 QRS: 16 T: 29 INTERPRETIVE STATEMENTS: Normal sinus rhythm Cannot rule out Anterior infarct, age undetermined Abnormal ECG Compared to ECG 01/07/2020 08:29:07 Myocardial infarct finding now present Ventricular premature complex(es) no longer present Electronically Signed On 03-07-20 15:34:44 CDT by Ruslan Garibay
== END 2020-03-06 18:02 | disposition home or self-care (01) ==
LOC: ER 10:45
DX: J45.909 Unspecified asthma, uncomplicated (principal); I10 Essential (primary) hypertension; Z88.1 Allergy status to other antibiotic agents; Z88.2 Allergy status to sulfonamides; Z88.5 Allergy status to narcotic agent
CPT/HCPCS: 96361; 93005; 85025; 80048; 36415; 83735; 85610; 82947; 85379; 80076; 84443; 84484 ×2; 84439; 83880; 71275; 71045; 93970; 96375; 96374; 99285; Q9967; J1200; J2270; J7030; J2405

== ENCOUNTER 2020-03-23 15:14 | Emergency (ER) | payer BC ==
--- OUTSIDE RECORDS SUMMARY | 2020-03-23 15:16 | XMS REPORT | Clinical Summary ---
:1970 Author Organization [facility] Address [address] [place] [id number] Care Team Providers Name Role Phone Pcp [...] Nasal 3 packet 5 06/25/2018 A ctive jzhee-ngakhn-nclsue route 2 (two) bottle (NEILMED SINUS times [...] Not on file Implants Implanted Type Area Shingle Bolt Cutter Device Shelf Model / Identifier Expiration Serial / Date Lot Sealant Durasl Spine 5ml [id number] - [id number] Cement/Fi N/A: INT EGRA LIFESCI 10/21/2019041224 / Implanted: Qty: 1 on 06/24/2018 by Alex Ruano MD ller/[place] [employer] / sive [id number] Flseal Vhsd Full Strlprep 10ml [id number] - [id number] Cement/Fi N/A : FUNES:BIOSCI 11/18/2019 [id number] / Implanted: Qty: 1 on 06/24/2018 by Alex Ruano MD ller/[employer] [employer] / sive [id number] Graft Matrix Dura 1x3 [id number] - [id number] Neuro N/A: [employer] 02/20/2020 [id number] / Implanted: Qty: 1 on 06/24/2018 by Alex Ruano MD Head SURGICAL / NAVIGATION [id number] Results Not on fileafter 03/23/2019 Insurance Payer Benefit Plan / Subscriber ID Type Phone Address Group BLUE CROSS/[employer]UE [employer] OS xxxxxxxxxxxx PPO [phone] PO [address] X [id number] SHIELD POS/PPO/[place] [address] Advance Directives Patient has advance care planning documents, and code status on file. For more information, please contact:[address] [phone] Code Status Date Activated Date Inactivated Comments Full Code 06/26/2018 1:38 PM This code status was determined by: Patient Full Code 06/18/2018 8:39 PM 06/26/2018 11:54 AM This code status was determined by: Patient
--- OUTSIDE RECORDS SUMMARY | 2020-03-23 15:18 | XMS REPORT | Continuity of Care Document ---
:1970 Author Organization [facility] t Address [address] [place] [address] [address]. Holbrook [address] [place] [address] Care Team Providers Name Role Phone Pcp [...] Clinics unspecifie unspecifie d whether d whether long-term long-term insulin insulin use use Allergies, Adverse Reactions, Alerts Allergy Allergy Status Severity Reaction(s) Onset Inactive Treating Comm ents Source Name Type Date Date Clinician Sulfamet Propensi Active Swelling 2017-[address] [facility] hoxazole ty to 2-05 [facility] adverse 00:[facility]: Medical oprim reaction [facility] Cephalex Propensi Active 2017-[address] [facility] in ty to 08-27 [facility] - adverse 00:00: Medical reaction 00 [facility] Codeine Propensi Active 2017-[address] [facility] ty to 05 vity [facility] adverse 00:00: Medical reaction 00 [place] Levoflox Propensi Active 2017-[address] acin ty to 05 tions [facility] - adverse 00:00: Medical reaction 00 [place] Monosodi Propensi Active 2017-07 Flushed [facility] 05 face [facility] Gl[facility]at adverse 00:00: Medical e reaction 00 [place] Ceftriax Propensi Active Rash 2017-[address] [facility] [address] one ty to 08-21 [facility] - adverse 00:00: Medical reaction 00 [place] statin Adverse Active throat [facility] Reaction swelling [facility] clindamy Adverse Active swelling [facility] rajiv Reaction [facility] vancomyc Adverse Active face [facility] in Reaction swelling, [facility] - fever [facility] Jardianc Adverse Active severe [facility] e Reaction anxiety [facility] Iodine Adverse Active increases BS [facility] Reaction to [facility] - 400's,skin Memori a blisters l [facility] Azithrom Adverse Active decreased [facility] ycin Reaction B/P,palpitat [place] kes - ions [facility] Lisinopr Adverse Active cough [facility] il Reaction [facility] Fenofibr Adverse Active face [facility] ate Reaction swelling [facility] Bactrim Adverse Active face [facility] Reaction swelling [facility] Levaquin Adverse Active hallucinatio C [facility] Reaction ns [facility] Family History Family Member Diagnosis Comments Start Date Stop Date Source Natural father Hypertension [facility] Natural mother Diabetes [facility] Natural mother Hypertension [facility] Other Diabetes [facility] Social History Social Habit Start Date Stop Date Quantity Comments Source History SDOH Alcohol [facility] Std Drinks [facility] History SDOH Alcohol [facility] Binge [facility] Sex Assigned At [facility] History SDOH Alcohol 2018-06-18 2018-06-18 2 [facility] - Frequency 00:00:00 00:00:00 [facility] Smoking Status Start Date Stop Date Source Former smoker 2018-06-24 00:00:00 2018-06-24 00:00:00 [facility] Medications Ordered Filled Start Stop Current [...] tablet [facility] ne Sodium ne Sodium [place] in the [place] kes - morning on Memoria an empty l stomach Outpati ent Clinics Procedures This patient has no known procedures. Encounters Start End Encounter Admission Attending Care Care Encounter Source Date/Time Date/Time Type Type Clinicians Facility Department ID 2020-03-22 2020-03-22 [facility] [id number] [facility] 11:50:00 11:50:00 [facility] Medicine Outpati ent Clinics 2020-02-18 2020-02-18 [facility] [id number] [facility] 09:26:00 09:26:00 [facility] Medicine Outpati ent Clinics 2020-02-05 2020-02-05 [facility] [id number] [facility] [address] 08:00:00 08:00:00 [facility] Medicine Outpati ent Clinics 2020-02-02 2020-02-02 [facility] [id number] [facility] 18:03:00 18:03:00 [facility] Medicine Outpati ent Clinics 2019-11-19 2019-11-19 Outpatient [facility] [id number] [facility] 09:25:00 09:25:00 [facility] Medicine Medicine Outpati ent Clinics 2019-11-10 2019-11-10 [facility] [id number] [address] 10:08:00 10:08:00 [facility] Medicine l Medicine Outpati ent Clinics 2019-11-06 2019-11-06 [facility] [id number] [facility] 08:00:00 08:00:00 [facility] Medicine Outpati ent Clinics 2019-10-30 2019-10-30 [facility] [id number] [facility] 15:58:00 15:58:00 [facility] Medicine Outpati ent Clinics 2019-10-27 2019-10-27 [facility] [id number] [facility] 11[facility]16:00 11:16:00 [facility] Medicine Medicine Outpati ent Clinics 2019-08-07 2019-08-07 [facility] [id number] [facility] 08:40:00 08:40:00 [facility] Medicine Medicine Outpati ent Clinics 2019-05-01 2019-05-01 [facility] [id number] [facility] 09:40:00 09:40:00 [facility] Medicine l Medicine Outpati ent Clinics 2019-01-30 2019-01-30 [facility] [id number] [facility] 08:40:00 08:40:00 [facility] Medicine Medicine Outpati ent Clinics 2018-10-27 2018-10-27 [facility] [id number] [facility] [address] 06:29:00 06:29:00 [facility] Medicine l Medicine Outpati ent Clinics 2018-10-22 2018-10-22 [facility] [id number] [facility] 13:00:00 13:00:00 [facility] Medicine Medicine Outpati ent Clinics 2018-07-30 2018-07-30 [facility] [id number] [facility] 13:30:00 13:30:00 [facility] Medicine Medicine Outpati ent Clinics 2018-07-25 2018-07-25 [facility] [id number] [facility] 19:48:00 19:48:00 [facility] Medicine l Medicine Outpati ent Clinics 2018-03-12 2018-03-12 [facility] [id number] [facility] 13:41:00 13:41:00 [facility] Medicine l Medicine Outpati ent Clinics 2018-02-27 2018-02-27 [facility] [id number] [facility] 14:46:00 14:46:00 [facility] Medicine Medicine Outpati ent Clinics 2018-02-20 2018-02-20 Outpatient Helen [facility] [id number] [facility] [address] 08:30:00 08:30:00 [facility] Outpati ent Clinics 2018-02-12 2018-02-12 Outpatient Helen [facility] [id number] [address] 10:45:00 10:45:00 [facility] Outpati ent [facility] 2018-01-21 2018-01-21 Outpatient Helen [facility] [id number] 09:00:00 09:00:00 [facility] ent Clinics Results Test Description Test Time Test Comments Results Result [facility] e Comments TISSUE EXAM 2018-06-28 Surgical Pathology Report 08:38:00 Case: [id number] Authorizing Provider: Alex Ruano MD Collected: 06/24/2018 0802 Ordering Location: [address] Received: 06/24/2018 0809 Service Pathologist: Chon Andino MD Specimens: A) - Tumor, pituitary tumor B) - Tumor, pituitary tumor A.PITUITARY GLAND, TRANSSPHENOIDAL 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 PITUITARY GLAND, TRANSSPHENOIDAL HYPOPHYSECTOMY:NULL CELL ADENOMAENTRAPPED ADENOHYPOPHYSIS Signing Pathologist Direct Phone Line: [phone] y signed by Chon Andino MD on 06/28/2018 at 8:38 AMImmunoperoxidase stains performed on the second specimen show that the tumor has no staining for growth hormone, LH, FSH, TSH, prolactin, or ACTH. 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 The MIB-1 proliferation index is less than 1%. 17488 x 2; 95481; 95065; 77961 x 6; 52846Bfygczkin adenoma A. Pituitary tumor; B. Pituitary tumorA. [...] stains. Immunohistochemistry technical testing was performed at [facility], Pathology Laboratory where it was [...] (test 141 mg/dL 70-110 H TESTED AT [facility] [address] [facility] 1538[facility] 7703 0 POCT-GLUCOSE [id number] 12:06:00 Test Item Value Reference Range Interpretation Comments POC-GLUCOSE METER 217 mg/dL 70-110 H TESTED AT [facility] 6720 [facility] (test code = JABIERANTONIETTA R [facility] 1538) [address] BASIC METABOLIC [id number] 07:18:00 Test Item Value Reference Range Interpretation [...] PATIEN TS. CBC W/PLT COUNT & AUTO [id number] 06:49:00 Test Item Value Reference Range Interpretation [...] (BEAKER) (test code = 2801) BASIC METABOLIC [id number] 23:52:00 Test Item Value Reference Range Interpretation [...] APPLICABLE FOR DIALYSIS PATIEN TS. SODIUM, RANDOM [id number] 23:49:00 Test Item Value Reference Range Interpretation Comments SODIUM URINE (BEAKER) (test code = < meq/L 243) Reference Range: No NormalsCBC W/PLT COUNT & AUTO [id number] 23:35:00 Test Item Value Reference Range Interpretation [...] (test code = 2801) CT, BRAIN, WITHOUT [id number] 22:57:00FINAL REPORT CT Head without contrast CLINICAL [...] Otherwise no intracranial abnormality identified. Signed: Brian [facility] Verified Date/Time: 06/26/2018 22:57:28 Reading Location: [address] TransitionalReading Room -GLUCOSE [id number] 21:07:00 Test Item Value Reference Range Interpretation Comments POC-GLUCOSE METER 211 mg/dL 70-110 H TESTED AT [facility] 6720 ([facility]) (test code = [facility] 1538) [address] BASIC METABOLIC [id number] 14:29:00 Test Item Value Reference Range Interpretation [...] PATIEN TS. CBC W/PLT COUNT & AUTO [id number] 14:25:00 Test Item Value Reference Range Interpretation [...] PERCENT (AKER) (test code = 2801) POCT-GLUCOSE [id number] 13:38:00 Test Item Value Reference Range Interpretation Comments POC-GLUCOSE METER 219 mg/dL 70-110 H TESTED AT [place] [address] ([facility]) (test code = [facility] Jadiel [facility] 1538) [address] POCT-GLUCOSE [id number] 12:34:00 Test Item Value Reference Range Interpretation Comments POC-GLUCOSE METER 193 mg/dL 70-110 H TESTED AT [place] [address] ([facility]) (test code = [facility] Jadiel [place] 1538) [address] POCT-GLUCOSE [id number] 16:17:00 Test Item Value Reference Range Interpretation Comments POC-GLUCOSE METER 244 mg/dL 70-110 H TESTED AT [place] [address] ([facility]) (test code = [facility] Jadiel [facility] 1538) [address] POCT-GLUCOSE [id number] 12:08:00 Test Item Value Reference Range Interpretation Comments POC-GLUCOSE METER 229 mg/dL 70-110 H TESTED AT [place] [address] ([facility]) (test code = [facility] [employer] [place] 1538) [address] POCT-GLUCOSE [id number] 08:27:00 Test Item Value Reference Range Interpretation Comments POC-GLUCOSE METER 280 mg/dL 70-110 H TESTED AT [place] [address] ([facility]) (test code = [facility] [employer] [place] 1538) [address] OSMOLALITY, [id number] 05:16:00 Test Item Value Reference Range Interpretation Comments OSMOLALITY URINE ([facility]) (test 340 mOsm/kg 40-1,400 code = 614) SPECIFIC GRAVITY, [id number] 04:53:00 Test Item Value Reference Range Interpretation Comments SPECIFIC GRAVITY UA (BEAKER) (test code 1.010 1.001-1.035 = 468) POCT-GLUCOSE [id number] 22:29:00 Test Item Value Reference Range Interpretation Comments POC-GLUCOSE METER 257 mg/dL 70-110 H TESTED AT [facility] 6720 ([facility] (test code = [facility] [place] 1538) [address] BASIC METABOLIC [id number] 17:49:00 Test Item Value Reference Range Interpretation [...] NOT APPLICABLE FOR DIALYSIS PATIEN TS. POCT-GLUCOSE [id number] 17:02:00 Test Item Value Reference Range Interpretation Comments POC-GLUCOSE METER 235 mg/dL 70-110 H TESTED AT [facility] 6720 (BEAKER) (test code = [facility] [place] 1538) [address] POCT-GLUCOSE [id number] 12:06:00 Test Item Value Reference Range Interpretation Comments POC-GLUCOSE METER 249 mg/dL 70-110 H TESTED AT [facility] 6720 (BEAKER) (test code = [facility] [place] 1538) [address] POCT-GLUCOSE [id number] 09:40:00 Test Item Value Reference Range Interpretation Comments POC-GLUCOSE METER 278 mg/dL 70-110 H TESTED AT [facility] 67 (BEAKER) (test code = [place] 1538) [address] BASIC METABOLIC [id number] 06:14:00 Test Item Value Reference Range Interpretation [...] S NOT APPLICABLE FOR DIALYSIS PATIEN TS. [id number] 06:03:00 Test Item Value Reference Range Interpretation [...] for patients with mechanical heart valves. SCREEN, [id number] 05:59:00 Test Item Value Reference Range Interpretation Comments TEST URINE (BEAKER) (test Negative code = 583) POCT-GLUCOSE [id number] 05:46:00 Test Item Value Reference Range Interpretation Comments POC-GLUCOSE METER 140 mg/dL 70-110 H TESTED AT [facility] 6720 (BEAKER) (test code = [place] 1538) [address] CBC W/PLT COUNT & AUTO [id number] 05:46:00 Test Item Value Reference Range Interpretation [...] PERCENT (BEAKER) (test code = 2801) POCT-GLUCOSE [id number] 21:27:00 Test Item Value Reference Range Interpretation Comments POC-GLUCOSE METER 223 mg/dL 70-110 H TESTED AT [place] [address] ([facility] (test code = [facility] 1538) [address] POCT-GLUCOSE [id number] 17:26:00 Test Item Value Reference Range Interpretation Comments POC-GLUCOSE METER 223 mg/dL 70-110 H TESTED AT [place] [address] ([facility] (test code = [facility] 1538) [address] BASIC METABOLIC [id number] 16:43:00 Test Item Value Reference Range Interpretation [...] NOT APPLICABLE FOR DIALYSIS PATIEN TS. POCT-GLUCOSE [id number] 09:06:00 Test Item Value Reference Range Interpretation Comments POC-GLUCOSE METER 265 mg/dL 70-110 H TESTED AT [facility] 6720 (BEAKER) (test code = [facility] 1538) [address] POCT-GLUCOSE [id number] 00:22:00 Test Item Value Reference Range Interpretation Comments POC-GLUCOSE METER 210 mg/dL 70-110 H TESTED AT [place] [address] ([facility]) (test code = [place] 1538) [address] POCT-GLUCOSE [id number] 20:27:00 Test Item Value Reference Range Interpretation Comments POC-GLUCOSE METER 235 mg/dL 70-110 H TESTED AT [place] [address] ([facility]) (test code = [place] 1538) [address] POCT-GLUCOSE [id number] 17:10:00 Test Item Value Reference Range Interpretation Comments POC-GLUCOSE METER 264 mg/dL 70-110 H TESTED AT [place] [address] ([facility]) (test code = [place] 1538) [address] POCT-GLUCOSE [id number] 16:00:00 Test Item Value Reference Range Interpretation Comments POC-GLUCOSE METER 242 mg/dL 70-110 H TESTED AT [place] [address] ([facility]) (test code = [place] 1538) [address] POCT-GLUCOSE [id number] 08:54:00 Test Item Value Reference Range Interpretation Comments POC-GLUCOSE METER 224 mg/dL 70-110 H TESTED AT [place] [address] ([facility]) (test code = [place] 1538) [address] POCT-GLUCOSE [id number] 21:30:00 Test Item Value Reference Range Interpretation Comments POC-GLUCOSE METER 254 mg/dL 70-110 H TESTED AT [place] [address] ([facility]) (test code = [place] 1538) [address] POCT-GLUCOSE [id number] 17:23:00 Test Item Value Reference Range Interpretation Comments POC-GLUCOSE METER 193 mg/dL 70-110 H TESTED AT [place] [address] ([facility]) (test code = [place] 1538) [address] POCT-GLUCOSE [id number] 11:53:00 Test Item Value Reference Range Interpretation Comments POC-GLUCOSE METER 179 mg/dL 70-110 H TESTED AT [place] [address] ([facility]) (test code = [place] 1538) [address] [id number] 10:15:00 Test Item Value Reference Range Interpretation Comments CORTISOL, TOTAL ([facility]) (test code 4.7 ug/dL 3.7-19.4 = 2755) POCT-GLUCOSE [id number] 08:07:00 Test Item Value Reference Range Interpretation Comments POC-GLUCOSE METER 184 mg/dL 70-110 H TESTED AT [place] [address] ([facility]) (test code = [place] 1538) [address] CT, BRAIN, WITHOUT [id number] 22:07:00FINAL REPORT CT Head without contrast CLINICAL [...] Verified Date/Time: 06/20/2018 22:07:25 Reading Location: [address] Transitional Reading Room POCT-GLUCOSE [id number] 21:00:00 Test Item Value Reference Range Interpretation Comments POC-GLUCOSE METER 227 mg/dL 70-110 H TESTED AT [place] [address] ([facility]) (test code = [place] [facility] 1538) [address] POCT-GLUCOSE [id number] 16:57:00 Test Item Value Reference Range Interpretation Comments POC-GLUCOSE METER 216 mg/dL 70-110 H TESTED AT [place] [address] ([facility]) (test code = [place] [facility] 1538) [address] POCT-GLUCOSE [id number] 13:11:00 Test Item Value Reference Range Interpretation Comments POC-GLUCOSE METER 198 mg/dL 70-110 H TESTED AT [facility] 6720 ([facility] (test code = [place] [facility] 1538) [address] POCT-GLUCOSE [id number] 07:47:00 Test Item Value Reference Range Interpretation Comments POC-GLUCOSE METER 213 mg/dL 70-110 H TESTED AT [place] [address] ([facility] (test code = [place] [facility] 1538) [address] BASIC METABOLIC [id number] 06:57:00 Test Item Value Reference Range Interpretation [...] NOT APPLICABLE FOR DIALYSIS PATIEN TS. POCT-GLUCOSE [id number] 05:24:00 Test Item Value Reference Range Interpretation Comments POC-GLUCOSE METER 192 mg/dL 70-110 H TESTED AT [place] [id number] ([facility]) (test code = [place] [facility] 1538) [address] CT, CTANGIO [id number] 01:03:00FINAL REPORT CLINICAL HISTORY: Stroke TECHNIQUE: Initially, [...] MDReport Verified Date/Time: 06/20/2018 01:03:44 Reading Location: [address] Transitional Reading Room [facility] CAROT[facility] ANGIO 2018-06-20 01:03:00FINAL REPORT CLINICAL HISTORY: [...] Gamboa Verified Date/Time: 06/20/2018 01:03:44 Reading Location: [address] Reading Room POCT-GLUCOSE METER 2018-06-20 00:40:00 Test Item Value Reference Range Interpretation Comments POC-GLUCOSE METER 283 mg/dL 70-110 H TESTED AT [place] [address] ([facility]) (test code = [place] [facility] 1538) [address] POCT-GLUCOSE [id number] 21:21:00 Test Item Value Reference Range Interpretation Comments POC-GLUCOSE METER 343 mg/dL 70-110 H TESTED AT [place] [address] ([facility]) (test code = [place] [facility] 1538) [address] SCREEN, [id number] 18:52:00 Test Item Value Reference Range Interpretation Comments TEST URINE (BEAKER) (test Negative code = 583) POCT-GLUCOSE [id number] 17:17:00 Test Item Value Reference Range Interpretation Comments POC-GLUCOSE METER 287 mg/dL 70-110 H TESTED AT [place] [address] ([facility]) (test code = [place] [facility] 1538) [address] [id number] 15:59:00 Test Item Value Reference Range Interpretation Comments RPR SCREEN (BEAKER) (test code = Nonreactive Nonreactive 420) POCT-GLUCOSE [id number] 15:07:00 Test Item Value Reference Range Interpretation Comments POC-GLUCOSE METER 323 mg/dL 70-110 H TESTED AT [place] [address] ([facility]) (test code = [place] [facility] 1538) [address] T4, [id number] 13:11:00 Test Item Value Reference Range Interpretation Comments FREE T4 ([facility] (test code = 655) 0.89 ng/dL 0.70-1.48 HIV-1 ANTIGEN WITH HIV-1/2 [id number] 13:11:00 Test Item Value Reference Range Interpretation Comments HIV-1 ANTIGEN WITH HIV 1\\T\\2 Nonreactive Nonreactive ANTIBODY (2) (BEAKER) (test code = 2586) RAPID DRUG SCREEN, [id number] 12:47:00 Test Item Value Reference Range Interpretation [...] URINE (BEAKER) Negative Negative (test code = 2768) DRUG CUTOFF CONC.Cocaine 300 ng/mL Cannabinoid 50 ng/mL Benzodiazepine 200 ng/mLBarbiturate 200 ng/mLPhencyclidine 25 ng/mLOpiate 300 ng/mLMethadone 300 ng/mLAmphetamine/ 1000 ng/mL MethamphetamineOxycodone 300 ng/mLThis assay provides an unconfirmed qualitative test result for the clinical management of patients in emergency situations. Chain of custody not maintained. Some ngfa-pwj-hoyqjlg medications, as well as adulterants, may cause inaccurate results. Clinical correlation should be applied. A more comprehensive drug screen or confirmation of a detected drug may be performed upon request. POCT-GLUCOSE [id number] 12:37:00 Test Item Value Reference Range Interpretation Comments POC-GLUCOSE METER 292 mg/dL 70-110 H TESTED AT [facility] 6720 (BEAKER) (test code = [place] 1538) [address] HEMOGLOBIN [id number] 12:35:00 Test Item Value Reference Range Interpretation Comments HEMOGLOBIN A1C (BEAKER) (test code = 7.9 % 4.3-6.1 H 368) OSMOLALITY, [id number] 12:34:00 Test Item Value Reference Range Interpretation Comments OSMOLALITY, SERUM (BEAKER) (test 310 mOsm/kg 275-295 H code = 615) C-REACTIVE [id number] 12:28:00 Test Item Value Reference Range Interpretation Comments C-REACTIVE PROTEIN (BEAKER) (test 0.81 mg/dL 0.00-0.50 H code = 676) OSMOLALITY, [id number] 12:22:00 Test Item Value Reference Range Interpretation Comments OSMOLALITY URINE (BEAKER) (test 247 mOsm/kg 40-1,400 code = 614) CBC W/PLT COUNT & AUTO [id number] 12:14:00 Test Item Value Reference Range Interpretation [...] PERCENT (BEAKER) (test code = 2801) POCT-GLUCOSE [id number] 10:30:00 Test Item Value Reference Range Interpretation Comments POC-GLUCOSE METER 341 mg/dL 70-110 H TESTED AT [facility] 6720 ([place]) (test code = [place] 1538) [address] [id number] 06:17:00 Test Item Value Reference Range Interpretation Comments PROLACTIN ([facility]) (test code = 23.34 ng/mL 5.18-26.53 758) POCT-GLUCOSE [id number] 05:55:00 Test Item Value Reference Range Interpretation Comments POC-GLUCOSE METER 285 mg/dL 70-110 H TESTED AT [facility] 6720 ([place]) (test code = [place] 1538) [address] MR, BRAIN, [id number] 02:25:00Pituitary protocolCr 0.6FINAL REPORT MRI brain with and without contrast Comparison: None. 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 Signed: Narcisa Mcdonald [facility] Verified Date/Time: 06/19/2018 02:25:15 Reading Location: [facility] B1 C013Y CT Body Reading Room TSH/FREE T4 IF [id number] 00:26:00 Test Item Value Reference Range Interpretation Comments THYROID STIMULATING HORMONE 0.41 uIU/mL 0.35-4.94 (BEAKER) (test code = 772) BASIC METABOLIC [id number] 00:07:00 Test Item Value Reference Range Interpretation [...] DIALYSIS PATIEN TS. URINALYSIS W/ REFLEX URINE [id number] 23:13:00 Test Item Value Reference Range Interpretation [...]
--- OUTSIDE RECORDS SUMMARY | 2020-03-23 15:18 | XMS REPORT ---
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 44736449302 5 MG Active TAKE 2 TABLETS BY MOUTH TWICE A DAY WITH A MEAL Losartan Potassium [facility] 19229304923 100 MG Active T NELSON 1 TABLET BY MOUTH EVERY DAY Novolin N [facility] 78931030682 100 UNIT/ML Active 17 uni ts Subcutaneous Twice a day MetFORMIN HCl ER [facility] 34314504003 750 MG Orally Activ e 1 tablet Once a day with evening meal Levothyroxine Sodium [facility] 13101019710 112 MCG Orally Active 1 tablet Once a day in the morning on an empty stomach Hydrochlorothiazide [facility] 26579926734 12.5 MG Orally A ctive 1 capsule Once a day in the morning Metformin HCl [facility] 78654106225 1000 MG Orally Aug 07, Active 1 tablet Twice a day 2019 with a meal Hydrocortisone ND 29474562475 10 MG Orally Active 1 tablet every 12 hrs with food or milk Meclizine HCl [facility] 48716461655 25 MG Oral Active KARLO E 1 TABLET BY MOUTH EVERY 8 HOURS NEEDED Nitrofurantoin Monohyd ND 32191216460 100 MG Oral A ctive TAKE 1 Macro CAPSULE BY MOUTH EVERY 12 HOURS FOR 7 DAYS Results Name Result Date Reference Range Unit Abnormali ty Flag HEMOGLOBIN A1C ----A1C 9.8 [id number] Summary Purpose eClinicalWorks Submission
--- OUTSIDE RECORDS SUMMARY | 2020-03-23 15:18 | XMS REPORT ---
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
--- OUTSIDE RECORDS SUMMARY | 2020-03-23 15:18 | XMS REPORT ---
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
--- OUTSIDE RECORDS SUMMARY | 2020-03-23 15:18 | XMS REPORT ---
[...] Status Dosage System Date Date Metformin HCl [facility] 77513782926 1000 MG Orally Aug 07, Active 1 tablet Twice a day 2019 with a meal Levothyroxine [facility] 06488465358 112 MCG Orally Active 1 tablet Sodium Once a day in the morning on an empty stomach Results No Known Results Summary Purpose eClinicalWorks Submission
[2020-03-23] MEDS ORDERED: NA CHLORIDE 0.9% 1,000 ML ONE (16:19)
[2020-03-23] MEDS ORDERED: MORPHINE 4 MG/ML SYR ONE (16:19)
[2020-03-23] MEDS ORDERED: ONDANSETRON 4 MG/2 ML VIAL ONE (16:19)
[2020-03-23 16:47] LABS: Absolute Lymphocytes (CBC) 2.6 K/uL (0.7-4.9); Basophils % 2.7 % (0-1.3); Lymphocytes % 25.1 % (15.3-44.8); RBC Red Blood Cell Count 5.64 M/uL (3.86-4.86)
--- NOTE | 2020-03-23 16:47 | RAD REPORT ---
EXAM DESCRIPTION: CT - Stone Protocol - 03/23/2020 4:39 pm CLINICAL HISTORY: Flank pain. Low back pain COMPARISON: <Comparisons> TECHNIQUE: Axial images were obtained without oral or IV contrast. Lack of contrast limits solid org an and vascular assessment. The [id number] spans the entirety of the system partially obscuring uppermost abdomen and lung bases. Coronal reformatted images were obtained and reviewed. All CT scans are performed using dose optimization technique as appropriate and may include automated exposure control or mA/KV adjustment according to patient size. FINDINGS: The lower lung watkins are clear. Advanced diffuse fatty liver.Spleen is normal sized. The pancreas and adrenal glands are normal. No p athologic lymphadenopathy in the abdomen or pelvis. No urinary tract stones or obstructive uropathy. No bowel obstruction, free air, free fluid or abscess. Normal appendix noted.Sigmoid diverticulosis c marion without diverticulitis. Moderate lumbosacral degenerative changes. IMPRESSION: No urinary tract stones or obstructive uropathy. Advanced diffuse fatty liver.
[2020-03-23 16:53] LABS: Urine Bacteria 20-50 /HPF (<20); Urine Culture Reflex Order REFLEXED; Urine RBC <5 /HPF (NONE SEEN)
[2020-03-23 16:55] LABS: Urine Blood NEGATIVE (NEG); Urine Glucose NEGATIVE (NEG); Urine Protein NEGATIVE (NEG); Urine pH 6.5 (5.0-7.0)
[2020-03-23 16:58] LABS: Albumin 3.4 g/dL (3.4-5.0); Bilirubin Direct 0.1 mg/dL (0-0.2); Bilirubin Total 0.6 mg/dL (0.2-1.0); Potassium 3.8 mmol/L (3.5-5.1)
[2020-03-23 17:52] LABS: Blood Morphology Comment NOT SEEN (NOT SEEN); Platelet Estimate ADEQ
--- NOTE | 2020-03-23 18:04 | EDPHYS ---
Physician Documentation [facility] Name: Chantal Stout Age: 49 yrs Sex: Female : 1970 Arrival Date: 03/23/2020 Time: 15:17 Bed 13 Private MD: JOSE MAR ED Physician Ranjan Mckoy HPI: 03/23 15:48 This 49 yrs old Female presents to ER via Ambulatory with complaints of pm1 Shaking, Back Pain. 15:48 The patient presents with pain and spasm, to low back. The symptoms are located in the pm1 lumbar spine. The pain does not radiate. The problem was sustained from unknown cause. Onset: The symptoms/episode began/occurred this morning, at 02:00. Modifying factors: The patient symptoms are alleviated by nothing, the patient symptoms are aggravated by movement. Associated signs and symptoms: Pertinent negatives: abdominal pain, chest pain, constipation, dysuria, fever, nausea, vomiting, weakness. Severity of symptoms: in the emergency department the symptoms have improved. history of chronic back pain. Historical: - Allergies: 15:30 Bactrim; aa5 15:30 Cephalexin; aa5 15:30 Codeine; aa5 15:30 Iodine; aa5 15:30 Levaquin; aa5 15:30 Sulfa (Sulfonamide Antibiotics); aa5 - PMHx: 15:30 ADD/ADHD; Anemia; Asthma; Diabetes - NIDDM; Hypertension; Hypothyroidism; pituitary aa5 tumor- surgically removed Jun 24; - Immunization history:: Adult Immunizations up to date. - Social history:: Smoking status: unknown. ROS: 15:48 Constitutional: Negative for fever, chills, and weight loss, Cardiovascular: Negative pm1 for chest pain, palpitations, and edema, Respiratory: Negative for shortness of breath, cough, wheezing, and pleuritic chest pain, Abdomen/GI: Negative for abdominal pain, nausea, vomiting, diarrhea, and constipation. 15:48 : Negative for injury, bleeding, discharge, and swelling, MS/Extremity: Negative for injury and deformity, Skin: Negative for injury, rash, and discoloration, Neuro: Negative for headache, weakness, numbness, tingling, and seizure. 15:48 Back: Positive for of the lumbar area, pain. Exam: 15:48 Constitutional: This is a well developed, well nourished patient who is awake, alert, pm1 and in no acute distress. Head/Face: Normocephalic, atraumatic. 15:48 Skin: Warm, dry with normal turgor. Normal color with no rashes, no lesions, and no evidence of cellulitis. MS/ Extremity: Pulses equal, no cyanosis. Neurovascular intact. Full, normal range of motion. 15:48 Cardiovascular: Exam negative for acute changes, Rate: normal, Rhythm: regular, Pulses: no pulse deficits are appreciated, Edema: is not appreciated. 15:48 Respiratory: Exam negative for acute changes, respiratory distress, shortness of breath. 15:48 Abdomen/GI: Exam negative for acute changes, Inspection: abdomen appears normal, Palpation: abdomen is soft and non-tender, in all quadrants. 15:48 Back: pain, that is mild, of the lumbar area and left low back, normal spinal alignment noted. 15:48 Neuro: Exam negative for acute changes, Orientation: is normal, Mentation: is normal, Motor: is normal, moves all fours. Vital Signs: 15:45 BP 162 / 103; Pulse 109; Resp 18 S; Temp 98.7(O); Pulse Ox 99% on R/A; aa5 17:01 BP 156 / 92; Pulse 104; Resp 20; Pulse Ox 97% on R/A; jr10 18:18 BP 156 / 92; Pulse 103; Resp 18; Pulse Ox 96% ; Pain 0/10; jr10 MDM: 15:38 Patient medically screened. pm1 18:02 Data reviewed: vital signs. Data interpreted: Pulse oximetry: on room air is 97 %. pm1 Interpretation: normal. 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 03/23 15:46 Order name: Basic Metabolic Panel pm1 03/23 15:46 Order name: CBC with Diff; Complete Time: 17:54 pm1 03/23 15:46 Order name: Hepatic Function; Complete Time: 17:54 pm1 03/23 15:46 Order name: Lipase; Complete Time: 17:54 pm1 03/23 15:46 Order name: Urine Microscopic Only; Complete Time: 16:55 pm1 03/23 15:47 Order name: Basic Metabolic Panel; Complete Time: 17:54 EDMS 03/23 15:46 Order name: CT Stone Protocol; Complete Time: 16:49 pm1 03/23 16:18 Order name: CREATININE WHOLE BLOOD; Complete Time: 16:20 EDMS 03/23 16:30 Order name: Urine Dipstick--Ancillary (enter results); Complete Time: 16:55 bd 03/23 16:30 Order name: Urine --Ancillary (enter results); Complete Time: 16:55 bd 03/23 16:50 Order name: Manual Differential; Complete Time: 17:54 EDMS 03/23 16:54 Order name: Urine Culture EDVA 03/23 15:46 Order name: IV Saline Lock; Complete Time: 16:31 pm1 03/23 15:46 Order name: Labs collected and sent; Complete Time: 16:31 pm1 03/23 15:46 Order name: Urine Dipstick-Ancillary (obtain specimen); Complete Time: 16:31 pm1 03/23 15:46 Order name: Urine Test (obtain specimen); Complete Time: 16:31 pm1 Administered Medications: 16:30 Drug: NS 0.9% 1000 ml Route: IV; Rate: 1000 ml; Site: right forearm; 10 18:09 Follow up: Response: No adverse reaction; IV Status: Completed infusion jr10 16:30 Drug: morphine 4 mg Route: IVP; Site: right forearm; jr10 16:54 Follow up: Response: No adverse reaction; Pain is decreased jr10 16:30 Drug: Zofran (Ondansetron) 4 mg Route: IVP; Site: right forearm; jr10 16:54 Follow up: Response: No adverse reaction rust Disposition: 18:42 Co-signature as Attending Physician, Ranjan Mckoy MD. rn Disposition: 03/23/20 18:03 Discharged to Home. Impression: Low back pain, Urinary tract infection, site not specified. - Condition is Stable. - Discharge Instructions: Back Pain, Adult, Urinary Tract Infection, Adult. - Prescriptions for Amoxicillin 250 mg Oral Capsule - take 1 capsule by ORAL route every 8 hours for 10 days; 30 capsule. - Medication Reconciliation Form, Thank You Letter, Antibiotic Education, Prescription Opioid Use form. - Follow up: Emergency Department; When: As needed; Reason: Worsening of condition. Follow up: Private Physician; When: 2 - 3 days; Reason: Recheck today's complaints, Continuance of care, Re-evaluation by your physician. - Problem is new. - Symptoms have improved. Signatures: Dispatcher [employer] EDMS Ranjan Mckoy MD MD rn Calderon, Audri RN RN aa5 Jonatan Chao MESS ATTENDANT CREW MESS ATTENDANT CREW pm1 Trupti Lucas, RN RN jr10 Corrections: (The following items were deleted from the chart) 18:25 18:03 03/23/2020 18:03 Discharged to Home. Impression: Low back pain; Urinary tract jr10 infection, site not specified. Condition is Stable. Forms are Medication Reconciliation Form, Thank You Letter, Antibiotic Education, Prescription Opioid Use. Follow up: Emergency Department; When: As needed; Reason: Worsening of condition. Follow up: Private Physician; When: 2 - 3 days; Reason: Recheck today's complaints, Continuance of care, Re-evaluation by your physician. Problem is new. Symptoms have improved. pm1
--- NOTE | 2020-03-23 18:04 | ER ---
Nurse's Notes [facility] Name: Chantal Stout Age: 49 yrs Sex: Female : 1970 Arrival Date: 03/23/2020 Time: 15:17 Bed 13 Private MD: JOSE MAR Diagnosis: Low back pain;Urinary tract infection, site not specified Presentation: 03/23 15:30 Coronavirus screen: Client denies travel out of the [place] in the last 14 days. At this aa5 time, the client does not indicate any symptoms associated with coronavirus-19. Ebola Screen: Patient negative for fever greater than or equal to 101.5 degrees Fahrenheit, and additional compatible Ebola Virus Disease symptoms. Risk Assessment: Do you want to hurt yourself or someone else? Patient reports no desire to harm self or others. 15:30 Acuity: NOÉ 3 aa5 15:30 Method Of Arrival: Ambulatory aa5 15:30 Onset of symptoms was 2019. aa5 15:30 Chief complaint: Patient states: "I feel this shaking feeling in my lower back and aa5 nausea and I also have a headache". Pt states "I take hydrocortisone and I had to take it earlier than I normally do today". Pt also reports pain to low back. 15:45 Initial Sepsis Screen: Does the patient meet any 2 criteria? HR > 90 bpm. Does the aa5 patient have a suspected source of infection? No. Patient's initial sepsis screen is negative. Historical: - Allergies: 15:30 Bactrim; aa5 15:30 Cephalexin; aa5 15:30 Codeine; aa5 15:30 Iodine; aa5 15:30 Levaquin; aa5 15:30 Sulfa (Sulfonamide Antibiotics); aa5 - PMHx: 15:30 ADD/ADHD; Anemia; Asthma; Diabetes - NIDDM; Hypertension; Hypothyroidism; pituitary aa5 tumor- surgically removed Jun 24; - Immunization history:: Adult Immunizations up to date. - Social history:: Smoking status: unknown. Screenin:15 Abuse screen: Denies threats or abuse. Denies injuries from another. Nutritional jr10 screening: No deficits noted. Tuberculosis screening: No symptoms or risk factors identified. Fall Risk IV access (20 points). Assessment: 16:15 General: Appears uncomfortable, Behavior is calm, cooperative, appropriate for age. jr10 Pain: Complains of pain in coccyx Pain does not radiate. Pain currently is 7 out of 10 on a pain scale. Quality of pain is described as aching, throbbing, Pain began suddenly, at approx 1300 this afternoon Is continuous, Alleviated by nothing. Aggravated by increased activity, Noted to be grimacing. Neuro: Level of Consciousness is awake, alert, obeys commands, Oriented to person, place, time, situation, Appropriate for age Speech is normal, Facial symmetry appears normal, Reports headache Denies blurred vision dizziness. Cardiovascular: Denies chest pain. Respiratory: Airway is patent Respiratory effort is even, unlabored, Respiratory pattern is regular, symmetrical, Denies shortness of breath. GI: Reports nausea, Patient currently denies abdominal pain, intolerance of fluids, intolerance of food. : Urine is clear, Reports pain in lower back Denies burning with urination, incontinence, urinary frequency, urgency. EENT: No deficits noted. No signs and/or symptoms were reported regarding the EENT system. Derm: No deficits noted. No signs and/or symptoms reported regarding the dermatologic system. Musculoskeletal: No deficits noted. No signs and/or symptoms reported regarding the musculoskeletal system. Vital Signs: 15:45 BP 162 / 103; Pulse 109; Resp 18 S; Temp 98.7(O); Pulse Ox 99% on R/A; aa5 17:01 BP 156 / 92; Pulse 104; Resp 20; Pulse Ox 97% on R/A; jr10 18:18 BP 156 / 92; Pulse 103; Resp 18; Pulse Ox 96% ; Pain 0/10; jr10 ED Course: 15:17 Patient arrived in ED. mr 15:17 JOSE MAR is Private Physician. mr 15:28 Arm band placed on. aa5 15:29 Jonatan Chao, STEFANIE is PHCP. pm1 15:29 Ranjan Mckoy MD is Attending Physician. pm1 15:29 Trupti Lucas, ALCIDES is Primary Nurse. jr10 15:48 Triage completed. aa5 16:00 Radiology exam delayed due to test not completed at this time. vm2 16:15 Patient has correct armband on for positive identification. Placed in gown. Bed in low jr10 position. Call light in reach. Side rails up X2. Pulse ox on. NIBP on. 16:31 No provider procedures requiring assistance completed. Inserted saline lock: 20 gauge jr10 in right forearm, using aseptic technique. IV is patent, is intact, with fluids infusing freely, with good blood return, Flushed. 16:39 CT Stone Protocol In Process Unspecified. EDMS 18:24 IV discontinued, intact, bleeding controlled, No redness/swelling at site. Pressure jr10 dressing applied. Administered Medications: 16:30 Drug: NS 0.9% 1000 ml Route: IV; Rate: 1000 ml; Site: right forearm; jr10 18:09 Follow up: Response: No adverse reaction; IV Status: Completed infusion jr10 16:30 Drug: morphine 4 mg Route: IVP; Site: right forearm; jr10 16:54 Follow up: Response: No adverse reaction; Pain is decreased jr10 16:30 Drug: Zofran (Ondansetron) 4 mg Route: IVP; Site: right forearm; jr10 16:54 Follow up: Response: No adverse reaction jr10 Outcome: 18:03 Discharge ordered by MD. pm1 18:24 Discharged to home ambulatory. jr10 18:24 Condition: stable 18:24 Discharge instructions given to patient, Instructed on discharge instructions, follow up and referral plans. Demonstrated understanding of instructions, follow-up care, medications, Prescriptions given X 1. 18:25 Patient left the ED. jr10 Signatures: Dispatcher [employer] Eugenie Slater KongBrittany flores RN RN aa5 Jonatan Chao, STEFANIE IT OPERATIONS SPECIALIST pm1 Ghada Baig 2 Trupti Lucas, ALCIDES RN jr10
[2020-03-25 20:49] VITALS: TEMP 98.7
[2020-03-25 20:50] VITALS: BP 156/92
[2020-03-25 20:52] VITALS: O2SAT 96
== END 2020-03-23 18:25 | disposition home or self-care (01) ==
LOC: ER 15:14
DX: N39.0 Urinary tract infection, site not specified (principal); Z88.1 Allergy status to other antibiotic agents; Z88.6 Allergy status to analgesic agent; Z91.09 Other allergy status, other than to drugs and biological substances; Z88.2 Allergy status to sulfonamides
CPT/HCPCS: 87088; 85025; 87086; 80048; 36415; 81025; 82565; 80076; 83690; 76377; 74176; J7030; J2405; 81003; 81015; 96361; 96374; 96375; 99284

== ENCOUNTER 2020-04-08 12:17 | Emergency (ER) | payer BC ==
--- OUTSIDE RECORDS SUMMARY | 2020-04-08 12:35 | XMS REPORT ---
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
--- OUTSIDE RECORDS SUMMARY | 2020-04-08 12:35 | XMS REPORT ---
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
--- OUTSIDE RECORDS SUMMARY | 2020-04-08 12:35 | XMS REPORT | Continuity of Care Document ---
:1970 Author Organization [facility] t Address [address] [place] [address] Dr. Holbrook [address] [place] [address] Care Team Providers Name Role Phone Pcp [...] Clinics unspecifie unspecifie d whether d whether half-way half-way insulin insulin use use Allergies, Adverse Reactions, [...] [facility] - adverse 00:00: Medical reaction 00 [facility] Levoflox Propensi Active 2017-[address] [facility] [address] acin ty to 05 tions [facility] - adverse 00:00: Medical reaction 00 [facility] Monosodi Propensi Active 2017-07 Flushed [facility] 05 face [facility] - Glutamat adverse 00:00: Medical e reaction 00 [facility] Ceftriax Propensi Active Rash 2017-[address] [facility] one ty to 08-21 [facility] - adverse 00:00: Medical reaction 00 [facility] statin Adverse Active throat [facility] Reaction swelling [facility] clindamy Adverse Active swelling [facility] rajiv Reaction [facility] vancomyc Adverse Active face [facility] in Reaction swelling, [facility] - [facility] Jardianc Adverse Active severe [facility] e Reaction anxiety [facility] Iodine Adverse Active increases BS [facility] Reaction to [facility] - 400's,skin [facility] blisters l [facility] Azithrom Adverse Active decreased [facility] ycin Reaction B/P,palpitat [place]es - ions [facility] Lisinopr Adverse Active cough [facility] il Reaction [facility] Fenofibr Adverse Active face [facility] ate Reaction swelling [facility] Bactrim Adverse Active face [facility] Reaction swelling [facility] Levaquin Adverse Active hallucinatio C [facility] Reaction ns [facility] Family History Family Member Diagnosis Comments Start Date Stop Date Source Natural father Hypertension [facility] Natural mother Diabetes [facility] Natural mother Hypertension [facility] Other Diabetes [facility] Social History Social Habit Start Date Stop Date Quantity Comments Source History SDOH Alcohol [facility] Std Drinks [facility] History SDOH Alcohol [facility] Binge [facility] Sex Assigned At [facility] History SDOH Alcohol 2018-06-18 2018-06-18 2 [facility] - Frequency 00:00:00 00:00:00 [facility] Smoking Status Start Date Stop Date Source Former smoker 2018-06-24 00:00:00 2018-06-24 00:00:00 [facility] Medications Ordered Filled Start Stop Current Ordering [...] tablet [facility] ne Sodium ne Sodium [place] in the [place] kes - morning on Memoria an empty l stomach Outpati ent Clinics Procedures This patient has no known procedures. Encounters Start End Encounter Admission Attending Care Care Encounter Source Date/Time Date/Time Type Type Clinicians Facility Department ID 2020-03-22 2020-03-22 [facility] [id number] [facility] 11:50:00 11:50:00 [facility] Medicine Outpati ent Clinics 2020-02-18 2020-02-18 [facility] [id number] [address] 09:26:00 09:26:00 [facility] Medicine Outpati ent Clinics 2020-02-05 2020-02-05 [facility] [id number] [address] 08:00:00 08:00:00 [facility] Medicine Outpati ent Clinics 2020-02-02 2020-02-02 [facility] [id number] [address] 18:03:00 18:03:00 [facility] Medicine Outpati ent Clinics 2019-11-19 2019-11-19 Out[facility] [id number] 09:25:00 09:25:00 [facility] Medicine Medicine Outpati ent Clinics 2019-11-10 2019-11-10 [facility] [id number] [address] 10:08:00 10:08:00 [facility] Medicine l Medicine Outpati ent Clinics 2019-11-06 2019-11-06 [facility] [id number] [address] 08:00:00 08:00:00 [facility] Medicine Outpati ent Clinics 2019-10-30 2019-10-30 [facility] [id number] 15:58:00 15:58:00 [facility] Medicine Outpati ent Clinics 2019-10-27 2019-10-27 [facility] [id number] 11:16:00 11:16:00 t [facility] Medicine Medicine Outpati ent Clinics 2019-08-07 2019-08-07 [facility] [id number] [address] 08:40:00 08:40:00 t [facility] Medicine Medicine Outpati ent Clinics 2019-05-01 2019-05-01 [facility] [id number] [address] 09:40:00 09:40:00 t [facility] Medicine l Medicine Outpati ent Clinics 2019-01-30 2019-01-30 [facility] [id number] [address] 08[facility]40:00 08:40:00 t [facility] Medicine Medicine Outpati ent Clinics 2018-10-27 2018-10-27 [facility] [id number] [address] 06:29:00 06:29:00 t [facility] Medicine l Medicine Outpati ent Clinics 2018-10-22 2018-10-22 [facility] [id number] [address] 13:00:00 13:00:00 t [facility] Medicine Medicine Outpati ent Clinics 2018-07-30 2018-07-30 [facility] [id number] [address] 13:30:00 13:30:00 t [facility] Medicine Medicine Outpati ent Clinics 2018-07-25 2018-07-25 [facility] [id number] [address] 19:48:00 19:48:00 t [facility] Medicine l Medicine Outpati ent Clinics 2018-03-12 2018-03-12 [facility] [id number] [facility] 13:41:00 13:41:00 t [facility] Medicine l Medicine Outpati ent Clinics 2018-02-27 2018-02-27 [facility] [id number] [address] 14:46:00 14:46:00 t [facility] Medicine Medicine Outpati ent Clinics 2018-02-20 2018-02-20 Outpatient Helen [facility] [id number] [address] 08:30:00 08:30:00 [facility] Outpati ent Clinics 2018-02-12 2018-02-12 Outpatient Helen [facility] [id number] 10:45:00 10:45:00 [facility] Outpati ent [facility] 2018-01-21 2018-01-21 Outpatient Helen [facility] [id number] 09:00:00 09:00:00 [facility] ent Clinics Results Test Description Test Time Test Comments Results Result [facility] e Comments TISSUE EXAM 2018-06-28 Surgical Pathology Report 08:38:00 Case: [id number] Authorizing Provider: Alex Ruano MD Collected: 06/24/2018 0802 Ordering Location: [address] Received: 06/24/2018 0809 Service Pathologist: Chon Andino MD Specimens: A) - Tumor, pituitary tumor B) - Tumor, pituitary tumor A.PITUITARY GLAND, TRANSSPHENOIDAL 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 PITUITARY GLAND, TRANSSPHENOIDAL HYPOPHYSECTOMY:NULL CELL ADENOMAENTRAPPED ADENOHYPOPHYSIS Signing Pathologist Direct Phone Line: [phone] y signed by Chon Andino MD on 06/28/2018 at 8:38 AMImmunoperoxidase stains performed on the second specimen show that the tumor has no staining for growth hormone, LH, FSH, TSH, prolactin, or ACTH. 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 The MIB-1 proliferation index is less than 1%. 03238 x 2; 49277; 33166; 12970 x 6; 70260Uyeojqrtm adenoma A. Pituitary tumor; B. Pituitary tumorA. [...] Immunohistochemistry technical testing was performed at [facility], Pathology Laboratory where it was developed [...] (test 141 mg/dL 70-110 H TESTED AT [facility] [address] [facility] 7703 0 POCT-GLUCOSE [id number] 12:06:00 Test Item Value Reference Range Interpretation Comments POC-GLUCOSE METER 217 mg/dL 70-110 H TESTED AT [facility] 6720 ([facility]) (test [facility] = [facility] 1538[facility] [address] BASIC METABOLIC [id number] 07:18:00 Test Item Value Reference Range Interpretation [...] PATIEN TS. CBC W/PLT COUNT & AUTO [id number] 06:49:00 Test Item Value Reference Range Interpretation [...] (BEAKER) (test code = 2801) BASIC METABOLIC [id number] 23:52:00 Test Item Value Reference Range Interpretation [...] APPLICABLE FOR DIALYSIS PATIEN TS. SODIUM, RANDOM [id number] 23:49:00 Test Item Value Reference Range Interpretation Comments SODIUM URINE (BEAKER) (test code = < meq/L 243) Reference Range: No NormalsCBC W/PLT COUNT & AUTO [id number] 23:35:00 Test Item Value Reference Range Interpretation [...] (test code = 2801) CT, BRAIN, WITHOUT [id number] 22:57:00FINAL REPORT CT Head without contrast CLINICAL [...] Otherwise no intracranial abnormality identified. Signed: [facility] Verified Date/Time: 06/26/2018 22:57:28 Reading Location: [address] TransitionalReading Room -GLUCOSE [id number] 21:07:00 Test Item Value Reference Range Interpretation Comments POC-GLUCOSE METER 211 mg/dL 70-110 H TESTED AT [facility] 67[address] ([facility]) (test code = [facility] 1538) [address] BASIC METABOLIC [id number] 14:29:00 Test Item Value Reference Range Interpretation [...] PATIEN TS. CBC W/PLT COUNT & AUTO [id number] 14:25:00 Test Item Value Reference Range Interpretation [...] PERCENT (AKER) (test code = 2801) POCT-GLUCOSE [id number] 13:38:00 Test Item Value Reference Range Interpretation Comments POC-GLUCOSE METER 219 mg/dL 70-110 H TESTED AT [place] [address] ([facility]) (test code = [facility] Jadiel [facility] 1538) [address] POCT-GLUCOSE [id number] 12:34:00 Test Item Value Reference Range Interpretation Comments POC-GLUCOSE METER 193 mg/dL 70-110 H TESTED AT [place] [address] ([facility]) (test code = [facility] [place] 1538) [address] POCT-GLUCOSE [id number] 16:17:00 Test Item Value Reference Range Interpretation Comments POC-GLUCOSE METER 244 mg/dL 70-110 H TESTED AT [place] [address] ([facility]) (test code = [facility] Jadiel [facility] 1538) [address] POCT-GLUCOSE [id number] 12:08:00 Test Item Value Reference Range Interpretation Comments POC-GLUCOSE METER 229 mg/dL 70-110 H TESTED AT [place] [address] ([facility]) (test code = [facility] [place] 1538) [address] POCT-GLUCOSE [id number] 08:27:00 Test Item Value Reference Range Interpretation Comments POC-GLUCOSE METER 280 mg/dL 70-110 H TESTED AT [place] [address] ([facility]) (test code = [facility] [place] 1538) [address] OSMOLALITY, [id number] 05:16:00 Test Item Value Reference Range Interpretation Comments OSMOLALITY URINE ([facility]) (test 340 mOsm/kg 40-1,400 code = 614) SPECIFIC GRAVITY, [id number] 04:53:00 Test Item Value Reference Range Interpretation Comments SPECIFIC GRAVITY UA (BEAKER) (test code 1.010 1.001-1.035 = 468) POCT-GLUCOSE [id number] 22:29:00 Test Item Value Reference Range Interpretation Comments POC-GLUCOSE METER 257 mg/dL 70-110 H TESTED AT [facility] 6720 ([facility]) (test code = [facility] [place] 1538) [address] BASIC METABOLIC [id number] 17:49:00 Test Item Value Reference Range Interpretation [...] NOT APPLICABLE FOR DIALYSIS PATIEN TS. POCT-GLUCOSE [id number] 17:02:00 Test Item Value Reference Range Interpretation Comments POC-GLUCOSE METER 235 mg/dL 70-110 H TESTED AT [facility] 6720 (BEAKER) (test code = [facility] [place] 1538) [address] POCT-GLUCOSE [id number] 12:06:00 Test Item Value Reference Range Interpretation Comments POC-GLUCOSE METER 249 mg/dL 70-110 H TESTED AT [facility] 6720 (BEAKER) (test code = [facility] [place] 1538) [address] POCT-GLUCOSE [id number] 09:40:00 Test Item Value Reference Range Interpretation Comments POC-GLUCOSE METER 278 mg/dL 70-110 H TESTED AT [facility] 67 (BEAKER) (test code = [place] 1538) [address] BASIC METABOLIC [id number] 06:14:00 Test Item Value Reference Range Interpretation [...] S NOT APPLICABLE FOR DIALYSIS PATIEN TS. [id number] 06:03:00 Test Item Value Reference Range Interpretation [...] for patients with mechanical heart valves. SCREEN, [id number] 05:59:00 Test Item Value Reference Range Interpretation Comments TEST URINE (BEAKER) (test Negative code = 583) POCT-GLUCOSE [id number] 05:46:00 Test Item Value Reference Range Interpretation Comments POC-GLUCOSE METER 140 mg/dL 70-110 H TESTED AT [facility] 6720 (BEAKER) (test code = [place] 1538) [address] CBC W/PLT COUNT & AUTO [id number] 05:46:00 Test Item Value Reference Range Interpretation [...] PERCENT (BEAKER) (test code = 2801) POCT-GLUCOSE [id number] 21:27:00 Test Item Value Reference Range Interpretation Comments POC-GLUCOSE METER 223 mg/dL 70-110 H TESTED AT [place] [address] ([facility]) (test code = [facility] 1538) [address] POCT-GLUCOSE [id number] 17:26:00 Test Item Value Reference Range Interpretation Comments POC-GLUCOSE METER 223 mg/dL 70-110 H TESTED AT [place] [address] ([facility]) (test code = [facility] 1538) [address] BASIC METABOLIC [id number] 16:43:00 Test Item Value Reference Range Interpretation [...] NOT APPLICABLE FOR DIALYSIS PATIEN TS. POCT-GLUCOSE [id number] 09:06:00 Test Item Value Reference Range Interpretation Comments POC-GLUCOSE METER 265 mg/dL 70-110 H TESTED AT [facility] 6720 (BEAKER) (test code = [facility] 1538) [address] POCT-GLUCOSE [id number] 00:22:00 Test Item Value Reference Range Interpretation Comments POC-GLUCOSE METER 210 mg/dL 70-110 H TESTED AT [place] [address] ([facility]) (test code = [place] 1538) [address] POCT-GLUCOSE [id number] 20:27:00 Test Item Value Reference Range Interpretation Comments POC-GLUCOSE METER 235 mg/dL 70-110 H TESTED AT [place] [address] ([facility]) (test code = [place] 1538) [address] POCT-GLUCOSE [id number] 17:10:00 Test Item Value Reference Range Interpretation Comments POC-GLUCOSE METER 264 mg/dL 70-110 H TESTED AT [place] [address] ([facility]) (test code = [place] 1538) [address] POCT-GLUCOSE [id number] 16:00:00 Test Item Value Reference Range Interpretation Comments POC-GLUCOSE METER 242 mg/dL 70-110 H TESTED AT [place] [address] ([facility]) (test code = [place] 1538) [address] POCT-GLUCOSE [id number] 08:54:00 Test Item Value Reference Range Interpretation Comments POC-GLUCOSE METER 224 mg/dL 70-110 H TESTED AT [place] [address] ([facility]) (test code = [place] 1538) [address] POCT-GLUCOSE [id number] 21:30:00 Test Item Value Reference Range Interpretation Comments POC-GLUCOSE METER 254 mg/dL 70-110 H TESTED AT [place] [address] ([facility]) (test code = [place] 1538) [address] POCT-GLUCOSE [id number] 17:23:00 Test Item Value Reference Range Interpretation Comments POC-GLUCOSE METER 193 mg/dL 70-110 H TESTED AT [place] [address] ([facility]) (test code = [place] 1538) [address] POCT-GLUCOSE [id number] 11:53:00 Test Item Value Reference Range Interpretation Comments POC-GLUCOSE METER 179 mg/dL 70-110 H TESTED AT [place] [address] ([facility]) (test code = [place] 1538) [address] [id number] 10:15:00 Test Item Value Reference Range Interpretation Comments CORTISOL, TOTAL ([facility]) (test code 4.7 ug/dL 3.7-19.4 = 2755) POCT-GLUCOSE [id number] 08:07:00 Test Item Value Reference Range Interpretation Comments POC-GLUCOSE METER 184 mg/dL 70-110 H TESTED AT [place] [address] ([facility]) (test code = [place] 1538) [address] CT, BRAIN, WITHOUT [id number] 22:07:00FINAL REPORT CT Head without contrast CLINICAL [...] [place] Verified Date/Time: 06/20/2018 22:07:25 Reading Location: [address] Transitional Reading Room POCT-GLUCOSE [id number] 21:00:00 Test Item Value Reference Range Interpretation Comments POC-GLUCOSE METER 227 mg/dL 70-110 H TESTED AT [place] [address] ([facility]) (test code = [place] [facility] 1538) [address] POCT-GLUCOSE [id number] 16:57:00 Test Item Value Reference Range Interpretation Comments POC-GLUCOSE METER 216 mg/dL 70-110 H TESTED AT [place] [address] ([facility]) (test code = [place] [facility] 1538) [address] POCT-GLUCOSE [id number] 13:11:00 Test Item Value Reference Range Interpretation Comments POC-GLUCOSE METER 198 mg/dL 70-110 H TESTED AT [facility] 6720 ([facility]) (test code = [place] [facility] 1538) [address] POCT-GLUCOSE [id number] 07:47:00 Test Item Value Reference Range Interpretation Comments POC-GLUCOSE METER 213 mg/dL 70-110 H TESTED AT [place] [address] ([facility]) (test code = [place] [facility] 1538) [address] BASIC METABOLIC [id number] 06:57:00 Test Item Value Reference Range Interpretation [...] NOT APPLICABLE FOR DIALYSIS PATIEN TS. POCT-GLUCOSE [id number] 05:24:00 Test Item Value Reference Range Interpretation Comments POC-GLUCOSE METER 192 mg/dL 70-110 H TESTED AT [place] [id number] ([facility]) (test code = [place] [facility] 1538) [address] CT, CTANGIO [id number] 01:03:00FINAL REPORT CLINICAL HISTORY: Stroke TECHNIQUE: Initially, [...] MDReport Verified Date/Time: 06/20/2018 01:03:44 Reading Location: [address] Transitional Reading Room FAX [facility], CAROTID, ANGIO 2018-06-20 01:03:00FINAL REPORT CLINICAL HISTORY: [...] [place] Verified Date/Time: 06/20/2018 01:03:44 Reading Location: [address] Reading Room POCT-GLUCOSE METER 2018-06-20 00:40:00 Test Item Value Reference Range Interpretation Comments POC-GLUCOSE METER 283 mg/dL 70-110 H TESTED AT [place] [address] ([facility]) (test code = [place] [facility] 1538) [address] POCT-GLUCOSE [id number] 21:21:00 Test Item Value Reference Range Interpretation Comments POC-GLUCOSE METER 343 mg/dL 70-110 H TESTED AT [place] [address] ([facility]) (test code = [place] [facility] 1538) [address] SCREEN, [id number] 18:52:00 Test Item Value Reference Range Interpretation Comments TEST URINE (BEAKER) (test Negative code = 583) POCT-GLUCOSE [id number] 17:17:00 Test Item Value Reference Range Interpretation Comments POC-GLUCOSE METER 287 mg/dL 70-110 H TESTED AT [place] [address] ([facility]) (test code = [place] [facility] 1538) [address] [id number] 15:59:00 Test Item Value Reference Range Interpretation Comments RPR SCREEN (BEAKER) (test code = Nonreactive Nonreactive 420) POCT-GLUCOSE [id number] 15:07:00 Test Item Value Reference Range Interpretation Comments POC-GLUCOSE METER 323 mg/dL 70-110 H TESTED AT [place] [address] ([facility]) (test code = [place] [facility] 1538) [address] T4, [id number] 13:11:00 Test Item Value Reference Range Interpretation Comments FREE T4 ([facility]) (test code = 655) 0.89 ng/dL 0.70-1.48 HIV-1 ANTIGEN WITH HIV-1/2 [id number] 13:11:00 Test Item Value Reference Range Interpretation Comments HIV-1 ANTIGEN WITH HIV 1\\T\\2 Nonreactive Nonreactive ANTIBODY (2) (BEAKER) (test code = 2586) RAPID DRUG SCREEN, [id number] 12:47:00 Test Item Value Reference Range Interpretation [...] URINE (BEAKER) Negative Negative (test code = 2760) DRUG CUTOFF CONC.Cocaine 300 ng/mL Cannabinoid 50 ng/mL Benzodiazepine 200 ng/mLBarbiturate 200 ng/mLPhencyclidine 25 ng/mLOpiate 300 ng/mLMethadone 300 ng/mLAmphetamine/ 1000 ng/mL MethamphetamineOxycodone 300 ng/mLThis assay provides an unconfirmed qualitative test result for the clinical management of patients in emergency situations. Chain of custody not maintained. Some uwst-pkl-vlyinwg medications, as well as adulterants, may cause inaccurate results. Clinical correlation should be applied. A more comprehensive drug screen or confirmation of a detected drug may be performed upon request. POCT-GLUCOSE [id number] 12:37:00 Test Item Value Reference Range Interpretation Comments POC-GLUCOSE METER 292 mg/dL 70-110 H TESTED AT [facility] 6720 (BEAKER) (test code = [place] 1538) [address] HEMOGLOBIN [id number] 12:35:00 Test Item Value Reference Range Interpretation Comments HEMOGLOBIN A1C (BEAKER) (test code = 7.9 % 4.3-6.1 H 368) OSMOLALITY, [id number] 12:34:00 Test Item Value Reference Range Interpretation Comments OSMOLALITY, SERUM (BEAKER) (test 310 mOsm/kg 275-295 H code = 615) C-REACTIVE [id number] 12:28:00 Test Item Value Reference Range Interpretation Comments C-REACTIVE PROTEIN (BEAKER) (test 0.81 mg/dL 0.00-0.50 H code = 676) OSMOLALITY, [id number] 12:22:00 Test Item Value Reference Range Interpretation Comments OSMOLALITY URINE (BEAKER) (test 247 mOsm/kg 40-1,400 code = 614) CBC W/PLT COUNT & AUTO [id number] 12:14:00 Test Item Value Reference Range Interpretation [...] PERCENT (BEAKER) (test code = 2801) POCT-GLUCOSE [id number] 10:30:00 Test Item Value Reference Range Interpretation Comments POC-GLUCOSE METER 341 mg/dL 70-110 H TESTED AT [facility] 6720 ([place]) (test code = [place] 1538) [address] [id number] 06:17:00 Test Item Value Reference Range Interpretation Comments PROLACTIN ([facility]) (test code = 23.34 ng/mL 5.18-26.53 758) POCT-GLUCOSE [id number] 05:55:00 Test Item Value Reference Range Interpretation Comments POC-GLUCOSE METER 285 mg/dL 70-110 H TESTED AT [facility] 6720 ([place]) (test code = [place] 1538) [address] MR, BRAIN, [id number] 02:25:00Pituitary protocolCr 0.6FINAL REPORT MRI brain with and without contrast Comparison: None. 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 Signed: Narcisa Mcdonald [facility] Verified Date/Time: 06/19/2018 02:25:15 Reading Location: [facility] B1 C013Y CT Body Reading Room TSH/FREE T4 IF [id number] 00:26:00 Test Item Value Reference Range Interpretation Comments THYROID STIMULATING HORMONE 0.41 uIU/mL 0.35-4.94 (BEAKER) (test code = 772) BASIC METABOLIC [id number] 00:07:00 Test Item Value Reference Range Interpretation [...] DIALYSIS PATIEN TS. URINALYSIS W/ REFLEX URINE [id number] 23:13:00 Test Item Value Reference Range Interpretation [...]
--- OUTSIDE RECORDS SUMMARY | 2020-04-08 12:35 | XMS REPORT ---
:1970 Author Organization [employer] Care Team Providers Name Role Phone Linena Logan Provider Role Unavailable Allergies No Known [...] Status Dosage System Date Date Metformin HCl [facility] 80356881416 1000 MG Orally Aug 07, Active 1 tablet Twice a day 2019 with a meal Levothyroxine [facility] 68686382473 112 MCG Orally Active 1 tablet Sodium Once a day in the morning on an empty stomach Results No Known Results Summary Purpose eClinicalWorks Submission
--- OUTSIDE RECORDS SUMMARY | 2020-04-08 12:35 | XMS REPORT ---
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 Assessment Hypertension I10 Active Problem Hypothyroidism E03.9 Active Assessment Hyperlipidemia E78.5 Active Problem Anxiety F41.9 Active Medications Medication Code Code Instructions Start End Status Dosage System Date Date GlyBURIDE [facility] 65298022152 5 MG Active TAKE 2 TABLETS BY MOUTH TWICE A DAY WITH A MEAL Losartan Potassium [facility] 79247994277 100 MG Active T NELSON 1 TABLET BY MOUTH EVERY DAY Novolin N [facility] 18913664582 100 UNIT/ML Active 17 uni ts Subcutaneous Twice a day MetFORMIN HCl ER [facility] 03897049585 750 MG Orally Activ e 1 tablet Once a day with evening meal Levothyroxine Sodium [facility] 02713111783 112 MCG Orally Active 1 tablet Once a day in the morning on an empty stomach Hydrochlorothiazide [facility] 63467900595 12.5 MG Orally A ctive 1 capsule Once a day in the morning Metformin HCl [facility] 16811025077 1000 MG Orally Aug 07, Active 1 tablet Twice a day 2019 with a meal Hydrocortisone ND 66366886941 10 MG Orally Active 1 tablet every 12 hrs with food or milk Meclizine HCl [facility] 24329292022 25 MG Oral Active KARLO E 1 TABLET BY MOUTH EVERY 8 HOURS NEEDED Nitrofurantoin Monohyd ND 89189614856 100 MG Oral A ctive TAKE 1 Macro CAPSULE BY MOUTH EVERY 12 HOURS FOR 7 DAYS Results Name Result Date Reference Range Unit Abnormali ty Flag HEMOGLOBIN A1C ----A1C 9.8 20200205 Summary Purpose eClinicalWorks Submission
--- OUTSIDE RECORDS SUMMARY | 2020-04-08 12:35 | XMS REPORT | Clinical Summary ---
:1970 Author Organization [facility] Address [address] [place] [address] Care Team Providers Name Role Phone Pcp [...] Nasal 3 packet 5 06/25/2018 A ctive zxgwj-ddtish-mrsmno route 2 (two) bottle (NEILMED SINUS times [...] Not on file Implants Implanted Type Area Tire Layer Device Shelf Model / Identifier Expiration Serial / Date Lot Sealant Durasl Spine 5ml [id number] - [id number] Cement/Fi N/A: INT EGRA LIFESCI 10/21/[id number] / Implanted: Qty: 1 on 06/24/2018 by Alex Ruano MD ller/[employer] [employer] / sive [id number] Flseal Vhsd Full Strlprep 10ml [id number] - [id number] Cement/Fi N/A : FUNES:BIOSCI 11/18/2019 [id number] / Implanted: Qty: 1 on 06/24/2018 by Alex Ruano MD ller/[employer] / sive [id number] Graft Matrix Dura 1x3 [id number] - [id number] Neuro N/A: MEDTRONIC 02/20/2020 [id number] / Implanted: Qty: 1 on 06/24/2018 by Alex Ruano MD Head SURGICAL / NAVIGATION [id number] Results Not on fileafter 04/08/2019 Insurance Payer Benefit Plan / Subscriber ID Type Phone Address Group BLUE CROSS/BLUE BCBS OS xxxxxxxxxxxx PPO [phone] PO [address] X 494323 SHIELD POS/PPO/[place] [address] Advance Directives Patient has advance care planning documents, and code status on file. For more information, please contact:[address] [phone] Code Status Date Activated Date Inactivated Comments Full Code 06/26/2018 1:38 PM This code status was determined by: Patient Full Code 06/18/2018 8:39 PM 06/26/2018 11:54 AM This code status was determined by: Patient
[2020-04-08] MEDS ORDERED: NA CHLORIDE 0.9% 1,000 ML ONE (13:02)
[2020-04-08] MEDS ORDERED: DIPHENHYDRAMINE 50 MG/ML VIAL ONE (13:02)
[2020-04-08] MEDS ORDERED: METHYLPREDNISOLONE 125 MG INJ ONE (13:02)
[2020-04-08] MEDS ORDERED: NA CHLORIDE 0.9% 100 ML IV ONE (13:03)
[2020-04-08] MEDS ORDERED: FAMOTIDINE 20 MG/2 ML VIAL IV ONE ×2 (13:03→13:11)
--- NOTE | 2020-04-08 13:36 | ER ---
Nurse's Notes [facility] Name: Chantal Stout Age: 49 yrs Sex: Female : 1970 Arrival Date: 04/08/2020 Time: 12:19 Bed 18 Private MD: JOSE MAR Diagnosis: Allergy to seafood Presentation: 04/08 12:38 Chief complaint: Patient states: Itchy throat and swelling after eating calamari. ls4 Coronavirus screen: At this time, the client does not indicate any symptoms associated with coronavirus-19. Ebola Screen: No symptoms or risks identified at this time. Onset: The symptoms/episode began/occurred suddenly, today. Anaphylaxis evaluation, the patient reports or I have noted the following symptoms which indicate a significant risk of anaphylaxis: lump in the throat which may suggest laryngeal edema shortness of breath. Initial Sepsis Screen: Does the patient meet any 2 criteria? No. Patient's initial sepsis screen is negative. Initial Sepsis Screen: Does the patient have a suspected source of infection? No. Patient's initial sepsis screen is negative. Risk Assessment: Do you want to hurt yourself or someone else? Patient reports no desire to harm self or others. Onset of symptoms was April 08, 2020 at 12:00. 12:38 Method Of Arrival: Ambulatory ls4 12:38 Acuity: NOÉ 2 ls4 Historical: - Allergies: 12:43 Bactrim; ls4 12:43 Cephalexin; ls4 12:43 Codeine; ls4 12:43 Iodine; ls4 12:43 Levaquin; ls4 12:43 Sulfa (Sulfonamide Antibiotics); ls4 Screenin:14 Abuse screen: Denies threats or abuse. Denies injuries from another. Nutritional ls4 screening: No deficits noted. Tuberculosis screening: No symptoms or risk factors identified. Fall Risk None identified. Assessment: 12:32 General: Appears uncomfortable, obese, Behavior is calm, anxious, fussy. General: ls4 Behavior is. Pain: Denies pain. Neuro: No deficits noted. Cardiovascular: No deficits noted. Reports None. Respiratory: Airway is patent Respiratory effort is even, unlabored, Breath sounds are clear bilaterally. Respiratory: Reports shortness of breath at rest. GI: No deficits noted. No signs and/or symptoms were reported involving the gastrointestinal system. Derm: Skin is intact, Skin is dry, Skin is normal. Musculoskeletal: No deficits noted. No signs and/or symptoms reported regarding the musculoskeletal system. Vital Signs: 12:38 BP 161 / 105; Pulse 114; Resp 16; Temp 97.9(O); Pulse Ox 100% on R/A; Weight 133.81 kg; ls4 Height 5 ft. 4 in. (162.56 cm); Pain 0/10; 12:38 Body Mass Index 50.64 (133.81 kg, 162.56 cm) ls4 ED Course: 12:19 Patient arrived in ED. mr 12:19 JOSE MAR is Private Physician. mr 12:29 Miriam Genao, RN is Primary Nurse. ls4 12:30 Patient has correct armband on for positive identification. Bed in low position. Call ls4 light in reach. Side rails up X 1. child monitor on. Pulse ox on. NIBP on. Warm blanket given. Verbal reassurance given. Diet: Patient is NPO. 12:30 No provider procedures requiring assistance completed. Inserted saline lock: 18 gauge ls4 in left antecubital area, using aseptic technique. 12:36 Vijaya Bob [facility]NP-C [facility]. kb 12:36 Kirk Escudero MD is Attending Physician. kb 12:41 Triage completed. ls4 Administered Medications: 12:56 Drug: SOLU-Medrol 125 mg Route: IVP; Site: left antecubital; ls4 13:30 Follow up: Response: No adverse reaction; Marked relief of symptoms ls4 12:56 Drug: Pepcid 20 mg Route: IVP; Site: left antecubital; ls4 14:22 Follow up: Response: No adverse reaction; Marked relief of symptoms ls4 12:56 Drug: Benadryl 12.5 mg Route: IVP; Site: left antecubital; ls4 13:30 Follow up: Response: No adverse reaction; Marked relief of symptoms ls4 12:56 Drug: NS 0.9% 1000 ml Route: IV; Rate: 1000 ml; Site: left antecubital; ls4 13:00 Follow up: IV Status: Completed infusion; IV Intake: 1000ml ls4 Intake: 13:00 IV: 1000ml; Total: 1000ml. ls4 Outcome: 13:36 Discharge ordered by . kb 14:22 Discharged to home ambulatory. ls4 14:22 Condition: good 14:22 Discharge instructions given to patient, Instructed on discharge instructions, follow up and referral plans. Demonstrated understanding of instructions, follow-up care, medications, Prescriptions given X 2. 14:40 Patient left the ED. ls4 Signatures: Vijaya Bob, ICE CREAM VAN VENDOR-C ICE CREAM VAN VENDOR-John Lucas Eugenie mr Miriam Genao, RN RN ls4 Corrections: (The following items were deleted from the chart) 14:23 14:22 Discharge instructions given to patient, Instructed on discharge instructions, ls4 follow up and referral plans. Demonstrated understanding of instructions, follow-up care, medications, Prescriptions given X 3, ls4
--- NOTE | 2020-04-08 13:37 | EDPHYS ---
Physician Documentation [facility] Name: Chantal Stout Age: 49 yrs Sex: Female : 1970 Arrival Date: 04/08/2020 Time: 12:19 Bed 18 Private MD: JOSE MAR ED Physician Kirk Escudero HPI: 04/08 14:18 This 49 yrs old Female presents to ER via Ambulatory with complaints of kb Allergic Reaction. 14:18 The patient presents with itching, localized swelling, redness of skin. Onset: The kb symptoms/episode began/occurred just prior to arrival. Associated signs and symptoms: Pertinent positives: rash, swelling. Possible causes: shellfish. Severity of symptoms: At their worst the symptoms were moderate in the emergency department the symptoms are unchanged. The patient has not experienced similar symptoms in the past. The patient has not recently seen a physician. Pt reports redness, itching and throat swelling after eating calamari. . Historical: - Allergies: 12:43 Bactrim; ls4 12:43 Cephalexin; ls4 12:43 Codeine; ls4 12:43 Iodine; ls4 12:43 Levaquin; ls4 12:43 Sulfa (Sulfonamide Antibiotics); ls4 ROS: 14:22 Constitutional: Negative for fever, chills, and weight loss, Cardiovascular: Negative kb for chest pain, palpitations, and edema, Respiratory: Negative for shortness of breath, cough, wheezing, and pleuritic chest pain, Abdomen/GI: Negative for abdominal pain, nausea, vomiting, diarrhea, and constipation, Back: Negative for injury and pain, MS/Extremity: Negative for injury and deformity, Neuro: Negative for headache, weakness, numbness, tingling, and seizure. 14:22 Skin: Positive for erythema, swelling. Exam: 14:22 Constitutional: This is a well developed, well nourished patient who is awake, alert, kb and in no acute distress. Head/Face: Normocephalic, atraumatic. ENT: Nares patent. No nasal discharge, no septal abnormalities noted. Tympanic membranes are normal and external auditory canals are clear. Oropharynx with no redness, swelling, or masses, exudates, or evidence of obstruction, uvula midline. Mucous membranes moist. Neck: Trachea midline, no thyromegaly or masses palpated, and no cervical lymphadenopathy. Supple, full range of motion without nuchal rigidity, or vertebral point tenderness. No Meningismus. Chest/axilla: Normal chest wall appearance and motion. Nontender with no deformity. No lesions are appreciated. Cardiovascular: Regular rate and rhythm with a normal S1 and S2. No gallops, murmurs, or rubs. Normal PMI, no JVD. No pulse deficits. Respiratory: Lungs have equal breath sounds bilaterally, clear to auscultation and percussion. No rales, rhonchi or wheezes noted. No increased work of breathing, no retractions or nasal flaring. Abdomen/GI: Soft, non-tender, with normal bowel sounds. No distension or tympany. No guarding or rebound. No evidence of tenderness throughout. MS/ Extremity: Pulses equal, no cyanosis. Neurovascular intact. Full, normal range of motion. Neuro: Awake and alert, GCS 15, oriented to person, place, time, and situation. Cranial nerves II-XII grossly intact. Motor strength 5/5 in all extremities. Sensory grossly intact. Cerebellar exam normal. Normal gait. 14:22 Skin: rash a mild rash is noted, rash can be described as erythematous, on the face. Vital Signs: 12:38 BP 161 / 105; Pulse 114; Resp 16; Temp 97.9(O); Pulse Ox 100% on R/A; Weight 133.81 kg; ls4 Height 5 ft. 4 in. (162.56 cm); Pain 0/10; 12:38 Body Mass Index 50.64 (133.81 kg, 162.56 cm) ls4 MDM: 12:36 Patient medically screened. kb 14:23 Data reviewed: vital signs, nurses notes. Data interpreted: Pulse oximetry: on room air kb is 100 %. Interpretation: normal. Counseling: I had a detailed discussion with the patient and/or guardian regarding: the historical points, exam findings, and any diagnostic results supporting the discharge/admit diagnosis, the need for outpatient follow up, a family practitioner, to return to the emergency department if symptoms worsen or persist or if there are any questions or concerns that arise at home. 04/08 12:40 Order name: IV Start; Complete Time: 12:49 kb Administered Medications: 12:56 Drug: SOLU-Medrol 125 mg Route: IVP; Site: left antecubital; ls4 13:30 Follow up: Response: No adverse reaction; Marked relief of symptoms ls4 12:56 Drug: Pepcid 20 mg Route: IVP; Site: left antecubital; ls4 14:22 Follow up: Response: No adverse reaction; Marked relief of symptoms ls4 12:56 Drug: Benadryl 12.5 mg Route: IVP; Site: left antecubital; ls4 13:30 Follow up: Response: No adverse reaction; Marked relief of symptoms ls4 12:56 Drug: NS 0.9% 1000 ml Route: IV; Rate: 1000 ml; Site: left antecubital; ls4 13:00 Follow up: IV Status: Completed infusion; IV Intake: 1000ml ls4 Disposition: 04/09 14:00 Co-signature as Attending Physician, Kirk Escudero MD I agree with the assessment and kdr plan of care. Disposition: 04/08/20 13:36 Discharged to Home. Impression: Allergy to seafood. - Condition is Stable. - Discharge Instructions: Food Allergy, Dgmh-is-Cgco. - Prescriptions for Pepcid 20 mg Oral Tablet - take 1 tablet by ORAL route every 12 hours for 5 days; 10 tablet. Prednisone 20 mg Oral Tablet - take 1 tablet by ORAL route once daily for 5 days; 5 tablet. - Medication Reconciliation Form, Thank You Letter, Antibiotic Education, Prescription Opioid Use form. - Follow up: Emergency Department; When: As needed; Reason: Worsening of condition. Follow up: Private Physician; When: 2 - 3 days; Reason: Recheck today's complaints, Continuance of care, Re-evaluation by your physician. Signatures: Vijaya Bob, REJOINER-C YUMIKO-Kirk De La Rosa MD MD kdr Miriam Genao, RN RN ls4 Corrections: (The following items were deleted from the chart) 04/08 14:40 13:36 04/08/2020 13:36 Discharged to Home. Impression: Allergy to seafood. Condition is ls4 Stable. Forms are Medication Reconciliation Form, Thank You Letter, Antibiotic Education, Prescription Opioid Use. Follow up: Emergency Department; When: As needed; Reason: Worsening of condition. Follow up: Private Physician; When: 2 - 3 days; Reason: Recheck today's complaints, Continuance of care, Re-evaluation by your physician. kb
[2020-04-08 14:47] VITALS: BP 161/105; TEMP 97.9; O2SAT 100
== END 2020-04-08 14:40 | disposition home or self-care (01) ==
LOC: ER 12:17
DX: R21 Rash and other nonspecific skin eruption (principal); Z91.013 Allergy to seafood; Z88.1 Allergy status to other antibiotic agents; Z88.2 Allergy status to sulfonamides; Z88.5 Allergy status to narcotic agent
CPT/HCPCS: 96375; 96374; 99284; J1200; J7030; J2930

== ENCOUNTER 2020-05-07 11:09 | Emergency (ER) | payer BC, SELFPAY ==
--- OUTSIDE RECORDS SUMMARY | 2020-05-07 11:41 | XMS REPORT | Clinical Summary ---
:[address] [facility] Address [address] [place] [address] Care Team Providers Name Role Phone Pcp [...] Nasal 3 packet 5 06/25/2018 A ctive dcxhm-hshvkp-ehwrsq route 2 (two) bottle (NEILMED SINUS times [...] Assigned at Date Recorded Not on file Last Filed Vital Signs Not on file Plan of Treatment Not on file Implants Implanted Type Area Postal Mail Carrier Device Shelf Model / Identifier Expiration Serial / Date Lot Sealant Durasl Spine 5ml [id number] - [id number] Cement/Fi N/A: INT EGRA LIFESCI 10/21/2019 [id number] / Implanted: Qty: 1 on 06/24/2018 by Alex Hinds MD at [facility] ller/Adhe Head / sive [id number] Flseal Vhsd Full Strlprep 10ml [id number] - [id number] Cement/Fi N/A : FUNES:BIOSCI 11/18/2019 [id number] / Implanted: Qty: 1 on 06/24/2018 by Alex Hinds MD at [facility] ller/Adhe Head / sive [id number] Graft Matrix Dura 1x3 28072 - [id number] Neuro N/A: MEDTRONIC 02/20/2020 [id number] / Implanted: Qty: 1 on 06/24/2018 by Alex Hinds MD at [facility] Head SURGICAL / NAVIGATION [id number] Results Not on fileafter 05/07/2019 Insurance Payer Benefit Plan / Subscriber ID Effective Dates Phone Addre ss Type Group BLUE BCBS OS [id number] 2008-Presen [phone] [address] PPO CROSS/BLUE POS/PPO/EPO t 2 [facility] [id number] Advance Directives For more information, please contact: [phone] Type Date Recorded Patient Admission Specialist Explanati on Advance Directives and Living 06/26/2018 12:00 AM Will Code Status Date Activated Date Inactivated Comments Full Code 06/26/2018 1:38 PM This code status was determined by: Patient Full Code 06/18/2018 8:39 PM 06/26/2018 11:54 AM This code status was determined by: Patient
--- OUTSIDE RECORDS SUMMARY | 2020-05-07 11:43 | XMS REPORT ---
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
--- OUTSIDE RECORDS SUMMARY | 2020-05-07 11:43 | XMS REPORT ---
:1970 Author Organization [facility] Address [address] [place] [address] Care Team Providers Name Role Phone [place] Unavailable [phone] PROBLEMS Type Condition ICD9-CM PIU12-RK Onset Condition SNOMED Code Notes Code Code Dates Status Problem Type 2 diabetes E11.65 Active 38145285 mellitus with hyperglycemia Problem jail Z79.4 Active 958825321 (current) use of insulin Problem Hypertension I10 Active 13849911 Problem Hyperlipidemia E78.5 Active 13201890 Problem Allergic rhinitis, J30.9 Active 79137144 unspecified Problem Essential I10 Active 61060022 hypertension Problem Anxiety F41.9 Active 37479287 Problem Vaginal joseph B37.3 Active 54615483 Problem Hypothyroidism E03.9 Active 07212983 Problem Migraines G43.909 Active 84344429 Problem Seasonal allergic J30.1 Active 51592425 rhinitis due to pollen Problem Fatty liver K76.0 Active 364528931 Problem Dental abscess K04.7 Active 376723803 ALLERGIES Allergen (clinical Drug/Non Drug Reaction Allergy Type Onset Date S tatus drug ingredient) Allergy documented on EMR sulfamethoxazole / Bactrim(NDC face swelling Drug Allergy Active trimethoprim Code:[address]- 01) Iodine([facility] increases BS to Drug Allergy Active Code:74950-86501 400's,skin blisters ) fenofibrate Fenofibrate(NDC face swelling Drug Allergy Act priyanka Code:[address]- 01) empagliflozin Jardiance([facility] severe anxiety Drug Allergy Ac tive Code:[address]- 30) vancomycin vancomycin face swelling, Drug Allergy Active fever azithromycin Azithromycin([facility] decreased Drug Allergy Acti ve Code:[address]- B/P,palpitations 01) statin throat swelling Drug Allergy Active Levaquin hallucinations Drug Allergy Active lisinopril Lisinopril([facility] cough Drug Allergy Active Code:[address]- 01) clindamycin clindamycin swelling Drug Allergy Active ENCOUNTERS from 1970 to 2020-04-29 Encounter Location Date Provider Diagnosis [facility] [address] [facility] [address] [place] 08 Apr, 2020 [place] [address] IMMUNIZATIONS No Information SOCIAL HISTORY Tobacco Use: Social History Observation Description Date Details (start date - stop date) Current Smoker Sex Assigned At : Social History Observation Description Sex Assigned At Unknown Alcohol Screen Question Answer Notes Did you have a drink containing alcohol in the past year? No Points 0 Interpretation Negative Tobacco Use/Smoking Question Answer Notes Are you a current smoker How many cigarettes a day do you smoke? 6-10 How often do you smoke cigarettes? every day REASON FOR REFERRAL No Information VITAL SIGNS No information MEDICATIONS Medication SIG (Take, Route, Frequency, Start Date End Date Status Duration) Levothyroxine Sodium 112 MCG 1 tablet in the morning on an Active empty stomach Orally Once a day for 90 days Novolin N 100 UNIT/ML 17 units Subcutaneous Twice a Active day Hydrochlorothiazide 12.5 MG 1 capsule in the morning Active Orally Once a day for 90 Metformin HCl 1000 MG 1 tablet with a meal Orally Active Once a day for 90 Losartan Potassium 100 MG TAKE 1 TABLET BY MOUTH EVERY Active DAY GlyBURIDE 5 MG TAKE 2 TABLETS BY MOUTH TWICE Active A DAY WITH A MEAL for 90 Hydrocortisone 10 MG 1 tablet with food or milk Active Orally every 12 hrs for 30 day(s) PROCEDURES No Information RESULTS No Results REASON FOR VISIT No Information MEDICAL (GENERAL) HISTORY Type Description Date Medical History Hyperlipidemia Medical History Hypertension Medical History Hypothyroidism Medical History Anxiety Medical History Migraines Medical History Allergic rhinitis, unspecified Surgical History D&C 1985 Surgical History ORIF LMF, 2 screws 1995 Hospitalization History dehydration 2017 Goals Section No Information Health Concerns No Information MEDICAL EQUIPMENT No Information MENTAL STATUS No Information FUNCTIONAL STATUS No Information ASSESSMENTS No Information PLAN OF TREATMENT Medication Medication Name Sig Start Date Stop Date Levothyroxine Sodium 112 MCG 1 tablet in the morning on an empty stomach Orally Once a day for 90 days Next Appt Details Provider Name:Linnea Logan, 2020-07-19 08 :00:00 AM, [address] [facility], [place], [address], Insurance Providers Payer Name Payer Payer Insured Name Patient Coverage Covera End Address Phone Relationship to Start Date Brandon e Insured [employer] [phone] [place] [id number] [facility] [address]
--- OUTSIDE RECORDS SUMMARY | 2020-05-07 11:43 | XMS REPORT ---
:1970 Author Organization [facility] Address [address] [place] [address] Care Team Providers Name Role Phone [place] Unavailable [phone] PROBLEMS Type Condition ICD9-CM [id number] Onset Condition SNOMED Code Notes Code Code Dates Status Problem Type 2 diabetes E11.65 Active 46126379 mellitus with hyperglycemia Problem FDC Z79.4 Active 988595530 (current) use of insulin Problem Hypertension I10 Active 01652706 Problem Hyperlipidemia E78.5 Active 90711570 Problem Allergic rhinitis, J30.9 Active 99293769 unspecified Problem Essential I10 Active 41015634 hypertension Problem Anxiety F41.9 Active 10091943 Problem Vaginal joseph B37.3 Active 50975904 Problem Hypothyroidism E03.9 Active 98954566 Problem Migraines G43.909 Active 90787892 Problem Seasonal allergic J30.1 Active 60891465 rhinitis due to pollen Problem Fatty liver K76.0 Active 560072824 Problem Dental abscess K04.7 Active 363396277 ALLERGIES Allergen (clinical Drug/Non Drug Reaction Allergy Type Onset Date S tatus drug ingredient) Allergy documented on EMR sulfamethoxazole / Bactrim(NDC face swelling Drug Allergy Active trimethoprim Code:[address]- 01) Iodine([facility] increases BS to Drug Allergy Active Code:93741-19532 400's,skin blisters ) fenofibrate Fenofibrate(NDC face swelling Drug Allergy Act priyanka Code:[address]- 01) empagliflozin Jardiance([facility] severe anxiety Drug Allergy Ac tive Code:[address]- 30) vancomycin vancomycin face swelling, Drug Allergy Active fever azithromycin Azithromycin([facility] decreased Drug Allergy Acti ve Code:[address]- B/P,palpitations 01) statin throat swelling Drug Allergy Active Levaquin hallucinations Drug Allergy Active lisinopril Lisinopril([facility] cough Drug Allergy Active Code:[address]- 01) clindamycin clindamycin swelling Drug Allergy Active ENCOUNTERS from 1970 to 2020-04-19 Encounter Location Date Provider Diagnosis [place] [address] [facility] [address], Linnea Logan 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 Family [facility] [address], of [address] min[address]79[address]4 ; [place] [address] 2 diabetes annita litus with hyperglyce jean paul E11.65 ; Hypert ension I10 and Hypothy roidism E03.9 IMMUNIZATIONS No Information SOCIAL HISTORY Tobacco Use: [...] REASON FOR REFERRAL No Information VITAL SIGNS Height 66 in Mar, Weight 290.2 lbs Mar, Temperature 97.7 degrees Fahrenheit Mar, BMI 46.83 kg/m2 Mar, Oximetry 96 % Mar, Respiratory Rate 16 /min Mar, Blood pressure systolic 132 mm Hg Mar, Blood pressure diastolic 80 mm Hg Mar, MEDICATIONS Medication SIG (Take, Route, Frequency, Start Date End Date Status Duration) Metformin HCl 1000 MG 1 tablet with a meal Orally Active Once a day for 90 Novolin N 100 UNIT/ML 17 units Subcutaneous Twice a Active day Hydrochlorothiazide 12.5 MG 1 capsule in the morning Active Orally Once a day for 90 GlyBURIDE 5 MG TAKE 2 TABLETS BY MOUTH TWICE Active A DAY WITH A MEAL for 90 Losartan Potassium 100 MG TAKE 1 TABLET BY MOUTH EVERY Active DAY Levothyroxine Sodium 112 MCG 1 tablet in the morning on an Active empty stomach Orally Once a day for 30 days Hydrocortisone 10 MG 1 tablet with food or milk Active Orally every 12 hrs for 30 day(s) PROCEDURES No Information RESULTS Component Value Reference Range HEMOGLOBIN A1C Reviewed date:04/19/2020 09:06:59 Interpretation: Performing Lab: A1C 10.3 REASON FOR VISIT 3 month f/u ([phone]) MEDICAL (GENERAL) HISTORY Type Description Date Medical History Hyperlipidemia Medical History Hypertension Medical History Hypothyroidism Medical History Anxiety Medical History Migraines Medical History Allergic rhinitis, unspecified Surgical History D&C 1985 Surgical History ORIF LMF, 2 screws 1995 Hospitalization History dehydration 2017 Goals Section No Information Health Concerns No Information MEDICAL EQUIPMENT No Information MENTAL STATUS No Information FUNCTIONAL STATUS No Information ASSESSMENTS Encounter Date Diagnosis Notes Mar, FDC (current) use of insulin (ICD- 10 - Z79.4) Mar, Hypertension (ICD-10 - I10) Mar, Type 2 diabetes mellitus with hyperglyce jean paul (ICD-10 - E11.65) Mar, Hypothyroidism (ICD-10 - E03.9) PLAN OF TREATMENT Treatment Notes Assessment Notes Clinical Notes FDC (current) use of insulin inc insulin by 2 units ev maggi 7 days Type 2 diabetes mellitus with meds as directed dailylow carb hyperglycemia dietcheck glucose daily Hypertension meds as driectedlow fat and salt diet Hypothyroidism med as directedTSH drawn today to see if med adjustment has helped Treatment Notes Test Name Order Date TSH 2020-04-19 Next Appt Details 3 Months Reason: Provider Name:Linnea Logan, 2020-07-19 08 :00:00 AM, [address], [address], [place], [address], Insurance Providers Payer Name Payer Payer Insured Name Patient Coverage Covera End Address Phone Relationship to Start Date Brandon e Insured [employer] [phone] [place] [id number] [facility] [id number]
--- OUTSIDE RECORDS SUMMARY | 2020-05-07 11:43 | XMS REPORT | Continuity of Care Document ---
:1970 Author Organization [facility] t Address [address] [place] [address] Care Team Providers Name Role Phone Pcp [...] on magnetic magnetic resonance resonance imaging imaging Allergies, Adverse Reactions, Alerts Allergy Allergy Status Severity Reaction(s) Onset Inactive Treating Comm ents Source Name Type Date Date Clinician Sulfamet Propensi Active Swelling 2017-[address] [facility] hoxazole ty to 08-27 [facility] adverse 00:00: Medical oprim reaction 00 Center s Cephalex Propensi Active 2017-[address] [facility] in ty to 08-27 [facility] - adverse 00:00: Medical reaction 00 Center s Codeine Propensi Active 2017-[address] [facility] [address] ty to 08-27 vity [facility] - adverse 00:00: Medical reaction 00 Center s Levoflox Propensi Active 2017-[address] acin ty to 08-27 tions [facility] - adverse 00:00: Medical reaction 00 Center s Monosodi Propensi Active 2017-07 Flushed [facility] 2-05 face [facility] - Glutamat adverse 00:00: Medical e reaction 00 Center s Ceftriax Propensi Active Rash 2017-[address] [facility] one ty to 1-30 [facility] - adverse 00:00: Medical reaction 00 Center s statin Adverse Active throat [facility] Reaction swelling [facility] clindamy Adverse Active swelling [facility] rajiv Reaction [facility] vancomyc Adverse Active face [facility] in Reaction swelling, [facility] - fever [facility] Jardianc Adverse Active severe [facility] e Reaction anxiety [facility] Iodine Adverse Active increases BS [facility] Reaction to [facility] - 400's,skin Memori a blisters l [facility] Azithrom Adverse Active decreased [facility] ycin Reaction B/P,palpitat [place] [facility] - ions [facility] Lisinopr Adverse Active cough [facility] il Reaction [facility] Fenofibr Adverse Active face [facility] ate Reaction swelling [facility] Bactrim Adverse Active face [facility] Reaction swelling [facility] Levaquin Adverse Active hallucinatio C [facility] Reaction ns [facility] Family History Family Member Diagnosis Comments Start Date Stop Date Source Natural father Hypertension [facility] Natural mother Diabetes [facility] Natural mother Hypertension [facility] Other Diabetes [facility] Social History Social Habit Start Date Stop Date Quantity Comments Source History [facility] Alcohol Std Drinks [facility] History [facility] - Alcohol Binge Medical Alisha ter Sex Assigned At [facility] Tobacco use and 2018-06-24 2018-06-24 Former user [facility] - exposure 00:00:00 00:00:00 Medical Center Alcohol intake 2018-06-24 2018-06-24 [facility]00 of alcohol [facility] Center (finding) History SDOH 2018-06-18 2018-06-[address] [facility] - Alcohol Frequency 00:00:00 00:00:00 Medical Center Smoking Status Start Date Stop Date Source Former smoker 2018-06-24 00:00:00 2018-06-24 00:00:[address] [facility] Medications Ordered Filled Start Stop Current Ordering Indication Dosage Frequency Signature Comments Components Source Medication Medication Date Date Medication? Clinician (SIG) Name Name levothyroxi 2017-07 Yes 88ug Take [address] [facility] ne 2-06 mcg by [facility] - (SYNTHROID, 15:00: mouth Medic al LEVOTHROID) 59 Every Center 88 MCG morning on tablet an empty stomach. metFORMIN 2017-07 Yes 750mg Take [address] [facility] (GLUCOPHAGE 2-06 mg by [facility] - ) 500 MG 15:00: mouth 2 Medica l tablet 59 (two) Center times daily with breakfast and dinner. glyBURIDE 2017-07 Yes 5mg QD Take [address] (DIABETA) 5 2-06 by mouth Luke s - MG tablet 15:00: daily. Medica l 59 Center amLODIPine 2017-07 Yes 10mg QD Take [address] (NORVASC) 2-06 by mouth [facility] - 10 MG 15:00: daily. Medical tablet 59 Center famotidine 2017-07 Yes 20mg Take 1 [facility] (PEPCID) 20 2-06 tablet (20 Con[facility] kes - MG tablet 00:00: mg total) Med ical 00 by mouth Center every 12 (twelve) hours. sod 2017-07 Yes 1{packe Q.5D [address] chlor-bicar 2-04 t} by Nasal Luke s - b-squeez 00:00: route 2 Medica l bottle 00 (two) Center (NEILMED times SINUS RINSE daily. COMPLETE) pkdv Levothyroxi Levothyroxi Yes Linnea [address] ne Sodium ne Sodium [place] in the [place] kes - morning on Memoria an empty l stomach Outpati ent Clinics Procedures This patient has no known procedures. Encounters Start End Encounter Admission Attending Care Care Encounter Source Date/Time Date/Time Type Type Clinicians Facility Department ID 2020-04-29 2020-04-29 Outpatient [facility] [id number] [facility] 2020-04-19 2020-04-19 Outpatient [facility] [id number] [facility] 2020-03-22 2020-03-22 [facility] [id number] [address] 11:50:00 11:50:00 [facility] Medicine l Medicine Outpati ent Clinics 2020-02-18 2020-02-18 [facility] [id number] 09:26:00 09:26:00 [facility] l Medicine Outpati ent Clinics 2020-02-05 2020-02-05 [facility] [id number] 08:00:00 08:00:00 [facility] Medicine l Medicine Outpati ent Clinics 2020-02-02 2020-02-02 [facility] [id number] 18:03:00 18:03:00 [facility] Medicine Outpati ent Clinics 2019-11-19 2019-11-19 [facility] [id number] 09:25:00 09:25:00 [facility] Medicine l Medicine Outpati ent Clinics 2019-11-10 2019-11-10 [facility] [id number] 10:08:00 10:08:00 [facility] Medicine Outpati ent Clinics 2019-11-06 2019-11-06 [facility] [id number] 08[facility]00:00 08:00:00 [facility] Medicine Medicine Outpati ent Clinics 2019-10-30 2019-10-30 [facility] [id number] 15:58:00 15:58:00 [facility] Medicine l Medicine Outpati ent Clinics 2019-10-27 2019-10-27 [facility] [id number] 11:16:00 11:16:00 [facility] Medicine Outpati ent Clinics 2019-08-12 2019-08-12 Outpatient [facility] [id number] [facility]:00 [facility] Outpati ent Clinics 2019-08-07 2019-08-07 [facility] [id number] 08:40:00 08:40:00 [facility] Medicine Outpati ent Clinics 2019-05-01 2019-05-01 [facility] [id number] 09:40:00 09:40:00 [facility] Medicine Outpati ent Clinics 2019-01-30 2019-01-30 [facility] [id number] 08:40:00 08:40:00 [facility] Medicine Outpati ent Clinics 2018-10-27 2018-10-27 [facility] [id number] 06:29:00 06:29:00 [facility] Medicine Outpati ent Clinics 2018-10-22 2018-10-22 [facility] [id number] 13:00:00 13:00:00 [facility] Medicine Outpati ent Clinics 2018-07-30 2018-07-30 [facility] [id number] 13:30:00 13:30:00 [facility] Medicine Outpati ent Clinics 2018-07-25 2018-07-25 [facility] [id number] 19:48:00 19:48:00 [facility] Medicine Outpati ent Clinics 2018-03-12 2018-03-12 [facility] [id number] 13:41:00 13:41:00 t [facility] Medicine Outpati ent Clinics 2018-02-27 2018-02-27 [facility] [id number] 14:46:00 14:46:00 [facility] Medicine Outpati ent Clinics 2018-02-20 2018-02-20 [facility] [id number] 08:30:00 08:30:00 [facility] Outpati ent Clinics 2018-02-12 2018-02-12 Outpatient Helen [facility]ailon [id number] 10:45:00 10:45[facility] 2018-01-21 2018-01-21 Outpatient Helen Bailon [id number] 09:00:00 09:00:00 [facility] ent [facility] Results Test Description Test Time Test Comments Results Result Sourc e Comments TISSUE EXAM 2018-06-28 Surgical Pathology Report 08:38:00 Case: [id number] Authorizing Provider: Alex Ruano MD Collected: 06/24/2018 0802 Ordering Location: [address] Received: 06/24/2018 0809 Service Pathologist: Chon Andino MD Specimens: A) - Tumor, pituitary tumor B) - Tumor, pituitary tumor A.PITUITARY GLAND, TRANSSPHENOIDAL 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 PITUITARY GLAND, TRANSSPHENOIDAL HYPOPHYSECTOMY:NULL CELL ADENOMAENTRAPPED ADENOHYPOPHYSIS Signing Pathologist Direct Phone Line: [phone] y signed by Chon Andino MD on 06/28/2018 at 8:38 AMImmunoperoxidase stains performed on the second specimen show that the tumor has no staining for growth hormone, LH, FSH, TSH, prolactin, or ACTH. 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 The MIB-1 proliferation index is less than 1%. 55500 x 2; 99849; 27251; 71219 x 6; 85732Mjvmhsjhy adenoma A. Pituitary tumor; B. Pituitary tumorA. [...] stains. Immunohistochemistry technical testing was performed at [facility], Pathology Laboratory where it [...] (test 141 mg/dL 70-110 H TESTED AT [facility] [address] code = 1538) [facility] 7703 0 POCT-GLUCOSE [id number] 12:06:00 Test Item Value Reference Range Interpretation Comments POC-GLUCOSE METER 217 mg/dL 70-110 H TESTED AT [facility] 6720 ([facility] (test code = FOX R [facility] 1538) [address] BASIC METABOLIC [id number] 07:18:00 Test Item Value Reference Range Interpretation [...] PATIEN TS. CBC W/PLT COUNT & AUTO [id number] 06:49:00 Test Item Value Reference Range Interpretation [...] (BEAKER) (test code = 2801) BASIC METABOLIC [id number] 23:52:00 Test Item Value Reference Range Interpretation [...] APPLICABLE FOR DIALYSIS PATIEN TS. SODIUM, RANDOM [id number] 23:49:00 Test Item Value Reference Range Interpretation Comments SODIUM URINE (BEAKER) (test code = < meq/L 243) Reference Range: No NormalsCBC W/PLT COUNT & AUTO [id number] 23:35:00 Test Item Value Reference Range Interpretation [...] (test code = 2801) CT, BRAIN, WITHOUT [id number] 22:57:00FINAL REPORT CT Head without contrast CLINICAL [...] Verified Date/Time: 06/26/2018 22:57:28 Reading Location: [address] TransitionalReading Room -GLUCOSE [id number] 21:07:00 Test Item Value Reference Range Interpretation Comments POC-GLUCOSE METER 211 mg/dL 70-110 H TESTED AT [facility] 6720 (BEAKER) (test code = [place] 1538) [address] BASIC METABOLIC [id number] 14:29:00 Test Item Value Reference Range Interpretation [...] PATIEN TS. CBC W/PLT COUNT & AUTO [id number] 14:25:00 Test Item Value Reference Range Interpretation [...] PERCENT (BEAKER) (test code = 2801) POCT-GLUCOSE [id number] 13:38:00 Test Item Value Reference Range Interpretation Comments POC-GLUCOSE METER 219 mg/dL 70-110 H TESTED AT [place] [address] ([facility]) (test code = [place] Jadiel [facility] 1538) [address] POCT-GLUCOSE [id number] 12:34:00 Test Item Value Reference Range Interpretation Comments POC-GLUCOSE METER 193 mg/dL 70-110 H TESTED AT [place] [address] ([facility]) (test [facility] = [facility] [place] [facility] 1538) [address] POCT-GLUCOSE [id number] 16:17:00 Test Item Value Reference Range Interpretation Comments POC-GLUCOSE METER 244 mg/dL 70-110 H TESTED AT [place] [address] ([facility]) (test code = [facility] [place] [facility] 1538) [address] POCT-GLUCOSE [id number] 12:08:00 Test Item Value Reference Range Interpretation Comments POC-GLUCOSE METER 229 mg/dL 70-110 H TESTED AT [place] [address] ([facility]) (test code = [facility] [place] [facility] 1538) [address] POCT-GLUCOSE [id number] 08:27:00 Test Item Value Reference Range Interpretation Comments POC-GLUCOSE METER 280 mg/dL 70-110 H TESTED AT [place] [address] ([facility]) (test code = [facility] Jadiel [facility] 1538) [address] OSMOLALITY, [id number] 05:16:00 Test Item Value Reference Range Interpretation Comments OSMOLALITY URINE ([facility]) (test 340 mOsm/kg 40-1,400 code = 614) SPECIFIC GRAVITY, [id number] 04:53:00 Test Item Value Reference Range Interpretation Comments SPECIFIC GRAVITY UA ([facility]) (test code 1.010 1.001-1.035 = 468) POCT-GLUCOSE [id number] 22:29:00 Test Item Value Reference Range Interpretation Comments POC-GLUCOSE METER 257 mg/dL 70-110 H TESTED AT [place] [address] ([facility] (test code = [facility] 1538) [address] BASIC METABOLIC [id number] 17:49:00 Test Item Value Reference Range Interpretation [...] NOT APPLICABLE FOR DIALYSIS PATIEN TS. POCT-GLUCOSE [id number] 17:02:00 Test Item Value Reference Range Interpretation Comments POC-GLUCOSE METER 235 mg/dL 70-110 H TESTED AT [place] [address] ([facility] (test code = [facility] 1538) [address] POCT-GLUCOSE [id number] 12:06:00 Test Item Value Reference Range Interpretation Comments POC-GLUCOSE METER 249 mg/dL 70-110 H TESTED AT [place] [address] ([facility] (test code = [facility] 1538) [address] POCT-GLUCOSE [id number] 09:40:00 Test Item Value Reference Range Interpretation Comments POC-GLUCOSE METER 278 mg/dL 70-110 H TESTED AT [place] [address] ([facility] (test code = [facility] 1538) [address] BASIC METABOLIC [id number] 06:14:00 Test Item Value Reference Range Interpretation [...] S NOT APPLICABLE FOR DIALYSIS PATIEN TS. [id number] 06:03:00 Test Item Value Reference Range Interpretation [...] for patients with mechanical heart valves. SCREEN, [id number] 05:59:00 Test Item Value Reference Range Interpretation Comments TEST URINE (BEAKER) (test Negative code = 583) POCT-GLUCOSE [id number] 05:46:00 Test Item Value Reference Range Interpretation Comments POC-GLUCOSE METER 140 mg/dL 70-110 H TESTED AT [facility] 6720 (BEAKER) (test code = [place] 1538) [address] CBC W/PLT COUNT & AUTO [id number] 05:46:00 Test Item Value Reference Range Interpretation [...] PERCENT (BEAKER) (test code = 2801) POCT-GLUCOSE [id number] 21:27:00 Test Item Value Reference Range Interpretation Comments POC-GLUCOSE METER 223 mg/dL 70-110 H TESTED AT [place] [address] ([facility] (test code = [place] 1538) [address] POCT-GLUCOSE [id number] 17:26:00 Test Item Value Reference Range Interpretation Comments POC-GLUCOSE METER 223 mg/dL 70-110 H TESTED AT [place] [address] (BEAKER) (test code = [facility] Jadiel [facility] 1538) [address] BASIC METABOLIC [id number] 16:43:00 Test Item Value Reference Range Interpretation [...] NOT APPLICABLE FOR DIALYSIS PATIEN TS. POCT-GLUCOSE [id number] 09:06:00 Test Item Value Reference Range Interpretation Comments POC-GLUCOSE METER 265 mg/dL 70-110 H TESTED AT [place] [address] (BEAKER) (test code = [address] [place] [facility] 1538) [address] POCT-GLUCOSE [id number] 00:22:00 Test Item Value Reference Range Interpretation Comments POC-GLUCOSE METER 210 mg/dL 70-110 H TESTED AT [place] [address] ([facility]) (test code = [place] [facility] 1538) [address] POCT-GLUCOSE [id number] 20:27:00 Test Item Value Reference Range Interpretation Comments POC-GLUCOSE METER 235 mg/dL 70-110 H TESTED AT [place] [address] ([facility]) (test code = [address] [place] [facility] 1538) [address] POCT-GLUCOSE [id number] 17:10:00 Test Item Value Reference Range Interpretation Comments POC-GLUCOSE METER 264 mg/dL 70-110 H TESTED AT [place] [address] ([facility]) (test code = [address] [place] [facility] 1538) 80394 POCT-GLUCOSE [id number] 16:00:00 Test Item Value Reference Range Interpretation Comments POC-GLUCOSE METER 242 mg/dL 70-110 H TESTED AT [place] [address] ([facility]) (test code = [place] [facility] 1538) [address] POCT-GLUCOSE [id number] 08:54:00 Test Item Value Reference Range Interpretation Comments POC-GLUCOSE METER 224 mg/dL 70-110 H TESTED AT [place] [address] ([facility]) (test code = [address] [place] [facility] 1538) 27284 POCT-GLUCOSE [id number] 21:30:00 Test Item Value Reference Range Interpretation Comments POC-GLUCOSE METER 254 mg/dL 70-110 H TESTED AT [place] [address] ([facility]) (test code = [place] [facility] 1538) 46334 POCT-GLUCOSE [id number] 17:23:00 Test Item Value Reference Range Interpretation Comments POC-GLUCOSE METER 193 mg/dL 70-110 H TESTED AT [place] [address] ([facility]) (test code = [facility] Jadiel [facility] 1538) [address] POCT-GLUCOSE [id number] 11:53:00 Test Item Value Reference Range Interpretation Comments POC-GLUCOSE METER 179 mg/dL 70-110 H TESTED AT [place] [address] ([facility]) (test code = [facility] Jadiel [facility] 1538) [address] [id number] 10:15:00 Test Item Value Reference Range Interpretation Comments CORTISOL, TOTAL ([facility]) (test code 4.7 ug/dL 3.7-19.4 = 2755) POCT-GLUCOSE [id number] 08:07:00 Test Item Value Reference Range Interpretation Comments POC-GLUCOSE METER 184 mg/dL 70-110 H TESTED AT [facility] 6720 ([facility]) (test code = [place] 1538) [address] CT, BRAIN, WITHOUT [id number] 22:07:00FINAL REPORT CT Head without contrast CLINICAL [...] [place] Verified Date/Time: 06/20/2018 22:07:25 Reading Location: [address] Reading Room POCT-GLUCOSE [id number] 21:00:00 Test Item Value Reference Range Interpretation Comments POC-GLUCOSE METER 227 mg/dL 70-110 H TESTED AT [facility] 6720 ([facility]) (test code = [place] 1538) [address] POCT-GLUCOSE [id number] 16:57:00 Test Item Value Reference Range Interpretation Comments POC-GLUCOSE METER 216 mg/dL 70-110 H TESTED AT [facility] 6720 ([facility]) (test code = [place] 1538) [address] POCT-GLUCOSE [id number] 13:11:00 Test Item Value Reference Range Interpretation Comments POC-GLUCOSE METER 198 mg/dL 70-110 H TESTED AT [place] [address] (BEAKER) (test code = [place] [facility] 1538) [address]32 POCT-GLUCOSE [id number] 07:47:00 Test Item Value Reference Range Interpretation Comments POC-GLUCOSE METER 213 mg/dL 70-110 H TESTED AT [place] [address] (BEAKER) (test code = [place] [facility] 1538) [address] BASIC METABOLIC [id number] 06:57:00 Test Item Value Reference Range Interpretation [...] NOT APPLICABLE FOR DIALYSIS PATIEN TS. POCT-GLUCOSE [id number] 05:24:00 Test Item Value Reference Range Interpretation Comments POC-GLUCOSE METER 192 mg/dL 70-110 H TESTED AT [place] [address] ([facility] (test code = JABIERNM Jadiel [facility] 1538) [address] CT, CTANGIO [id number] 01:03:00FINAL REPORT CLINICAL HISTORY: Stroke TECHNIQUE: Initially, [...] [place] Verified Date/Time: 06/20/2018 01:03:44 Reading Location: [address] Transitional Reading Room [facility], CAROTID, ANGIO 2018-06-20 01:03:00FINAL REPORT CLINICAL HISTORY: [...] [place] Verified Date/Time: 06/20/2018 01:03:44 Reading Location: [facility] Transitional Reading Room POCT-GLUCOSE METER 2018-06-20 00:40:00 Test Item Value Reference Range Interpretation Comments POC-GLUCOSE METER 283 mg/dL 70-110 H TESTED AT [place] [address] ([facility]) (test code = [place] [facility] 1538) [address]140 POCT-GLUCOSE [id number] 21:21:00 Test Item Value Reference Range Interpretation Comments POC-GLUCOSE METER 343 mg/dL 70-110 H TESTED AT [place] [address] ([facility]) (test code = [place] [facility] 1538) [address] SCREEN, [id number] 18:52:00 Test Item Value Reference Range Interpretation Comments TEST URINE ([facility]) (test Negative code = 583) POCT-GLUCOSE [id number] 17:17:00 Test Item Value Reference Range Interpretation Comments POC-GLUCOSE METER 287 mg/dL 70-110 H TESTED AT [place] [address] ([facility]) (test code = [facility] 1538) [address] [id number] 15:59:00 Test Item Value Reference Range Interpretation Comments RPR SCREEN ([facility]) (test code = Nonreactive Nonreactive 420) POCT-GLUCOSE [id number] 15:07:00 Test Item Value Reference Range Interpretation Comments POC-GLUCOSE METER 323 mg/dL 70-110 H TESTED AT [place] [address] ([facility]) (test code = [facility] Jadiel [facility] 1538) [address] T4, [id number] 13:11:00 Test Item Value Reference Range Interpretation Comments FREE T4 ([facility]) (test code = 655) 0.89 ng/dL 0.70-1.48 HIV-1 ANTIGEN WITH HIV-1/2 [id number] 13:11:00 Test Item Value Reference Range Interpretation Comments HIV-1 ANTIGEN WITH HIV 1\\T\\2 Nonreactive Nonreactive ANTIBODY (2) ([facility]) (test code = 2586) RAPID DRUG SCREEN, [id number] 12:47:00 Test Item Value Reference Range Interpretation [...] situations. Chain of custody not maintained. Some yxhj-dfb-wjesivb medications, as well as adulterants, may cause inaccurate results. Clinical correlation should be applied. A more comprehensive drug screen or confirmation of a detected drug may be performed upon request. POCT-GLUCOSE [id number] 12:37:00 Test Item Value Reference Range Interpretation Comments POC-GLUCOSE METER 292 mg/dL 70-110 H TESTED AT [facility] 6720 ([facility]) (test code = [place] [facility] 1538) [address] HEMOGLOBIN [id number] 12:35:00 Test Item Value Reference Range Interpretation Comments HEMOGLOBIN A1C (BEAKER) (test code = 7.9 % 4.3-6.1 H 368) OSMOLALITY, [id number] 12:34:00 Test Item Value Reference Range Interpretation Comments OSMOLALITY, SERUM (BEAKER) (test 310 mOsm/kg 275-295 H code = 615) C-REACTIVE [id number] 12:28:00 Test Item Value Reference Range Interpretation Comments C-REACTIVE PROTEIN (BEAKER) (test 0.81 mg/dL 0.00-0.50 H code = 676) OSMOLALITY, [id number] 12:22:00 Test Item Value Reference Range Interpretation Comments OSMOLALITY URINE (AKER) (test 247 mOsm/kg 40-1,400 code = 614) CBC W/PLT COUNT & AUTO [id number] 12:14:00 Test Item Value Reference Range Interpretation Comments WHITE BLOOD CELL COUNT (AKER) 15.1 K/ L 3.5-10.5 H (test code = 775) RED BLOOD CELL COUNT (AKER) 5.15 M/ L 3.93-5.22 (test code = [...] PERCENT (BEAKER) (test code = 2801) POCT-GLUCOSE [id number] 10:30:00 Test Item Value Reference Range Interpretation Comments POC-GLUCOSE METER 341 mg/dL 70-110 H TESTED AT [facility] 6720 (BROOK) (test code = [place] 1538) [address] [id number] 06:17:00 Test Item Value Reference Range Interpretation Comments PROLACTIN (BROOK) (test code = 23.34 ng/mL 5.18-26.53 758) POCT-GLUCOSE [id number] 05:55:00 Test Item Value Reference Range Interpretation Comments POC-GLUCOSE METER 285 mg/dL 70-110 H TESTED AT [facility] 6720 (BROOK) (test code = [place] [facility] 1538) [address] MR, BRAIN, [id number] 02:25:00Pituitary protocolCr 0.6FINAL REPORT MRI brain with and without contrast Comparison: None. 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 URINALYSIS W/ REFLEX URINE [id number] 23:13:00 Test Item Value Reference Range Interpretation [...]
--- OUTSIDE RECORDS SUMMARY | 2020-05-07 11:43 | XMS REPORT ---
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
--- OUTSIDE RECORDS SUMMARY | 2020-05-07 11:43 | XMS REPORT ---
:1970 Author Organization [facility] Address [address] [place] [address] Care Team Providers Name Role Phone [place] Unavailable [phone] PROBLEMS Type Condition ICD9-CM LFB01-GB Onset Condition SNOMED Code Notes Code Code Dates Status Problem Type 2 diabetes E11.65 Active 65331841 mellitus with hyperglycemia Problem prison Z79.4 Active 582533982 (current) use of insulin Problem Hypertension I10 Active 67320806 Problem Hyperlipidemia E78.5 Active 90066720 Problem Allergic rhinitis, J30.9 Active 23642875 unspecified Problem Essential I10 Active 21378147 hypertension Problem Anxiety F41.9 Active 69435623 Problem Vaginal joseph B37.3 Active 04528465 Problem Hypothyroidism E03.9 Active 17016833 Problem Migraines G43.909 Active 28613465 Problem Seasonal allergic J30.1 Active 63612769 rhinitis due to pollen Problem Fatty liver K76.0 Active 823157922 Problem Dental abscess K04.7 Active 421016043 ALLERGIES Allergen (clinical Drug/Non Drug Reaction Allergy Type Onset Date S tatus drug ingredient) Allergy documented on EMR sulfamethoxazole / Bactrim(NDC face swelling Drug Allergy Active trimethoprim Code:[address]- 01) Iodine([facility] increases BS to Drug Allergy Active Code:15228-74229 400's,skin blisters ) fenofibrate Fenofibrate(NDC face swelling Drug Allergy Act priyanka Code:[address]- 01) empagliflozin Jardiance([facility] severe anxiety Drug Allergy Ac tive Code:[address]- 30) vancomycin vancomycin face swelling, Drug Allergy Active fever azithromycin Azithromycin([facility] decreased Drug Allergy Acti ve Code:[address]- B/P,palpitations 01) statin throat swelling Drug Allergy Active Levaquin hallucinations Drug Allergy Active lisinopril Lisinopril([facility] cough Drug Allergy Active Code:[address]- 01) clindamycin clindamycin swelling Drug Allergy Active ENCOUNTERS from 1970 to 2020-04-29 Encounter Location Date Provider Diagnosis [facility] [address] [facility] [address] Jul, 2019 [place] [address] IMMUNIZATIONS No Information SOCIAL HISTORY Tobacco Use: [...] Information RESULTS No Results REASON FOR VISIT New Refill Request MEDICAL (GENERAL) HISTORY Type Description Date Medical [...] Name:Linnea Logan, 2020-07-19 08 :00:00 AM, [address], [address], [place], [address], Insurance Providers Payer Name Payer Payer Insured Name Patient Coverage Covera End Address Phone Relationship to Start Date Brandon e Insured [employer] [phone] [place] [id number] [facility] [address]
--- NOTE | 2020-05-07 13:04 | RAD REPORT ---
EXAM DESCRIPTION: CT - Head Brain Wo Cont - 05/07/2020 12:53 pm CLINICAL HISTORY: Dizziness;Headache;Visual disturbances Headache, drowsiness COMPARISON: Ct Stroke Brain Wo Cont dated 07/22/2019; Head Brain Wo Cont dated 03/31/2019; Brain Wo Co nt dated 01/07/2020 TECHNIQUE: All CT scans are performed using dose optimization technique as appropriate and may inclu de automated exposure control or mA/KV adjustment according to patient size. FINDINGS: No intracranial hemorrhage, hydrocephalus or extra-axial fluid collection.Prominent dimini shed density is seen in both cerebellar hemispheres in a symmetric fashion. The paranasal sinuses and mastoids are clear. The calvarium is intact. IMPRESSION: No acute bleed, midline shift or hydrocephalus. Symmetric diminished density is seen in both cerebellar hemispheres, nonspecific. This appears mildly more conspicuous than on the comparative CT head from 2019. If clinically indicated, MRI brain follo wup could be obtained for further workup.
[2020-05-07 13:11] LABS: Absolute Lymphocytes (CBC) 2.5 K/uL (0.7-4.9); Basophils % 0.2 % (0-1.3); Hematocrit 47.2 % (36.0-45.0); Lymphocytes % 24.3 % (15.3-44.8); MPV 9.9 fL (7.6-11.3); RBC Red Blood Cell Count 5.96 M/uL (3.86-4.86)
[2020-05-07] MEDS ORDERED: METOPROLOL TARTRATE 5 MG/5 ML INJ IV ONE (13:12)
[2020-05-07 13:14] LABS: Protime INR 1.05
[2020-05-07 13:23] LABS: ALT/SGPT 123 U/L (12-78); AST/SGOT 69 U/L (15-37); Albumin 3.9 g/dL (3.4-5.0); Alkaline Phosphatase 87 U/L (45-117); BUN Blood Urea Nitrogen 8 mg/dL (7-18); Bicarbonate 29 mmol/L (21-32); Bilirubin Direct 0.2 mg/dL (0-0.2); Bilirubin Total 0.7 mg/dL (0.2-1.0); Glucose Level 159 mg/dL (74-106); Magnesium 2.2 mg/dL (1.8-2.4); NT PRO-BNP 21 pg/mL (<125); Potassium 3.9 mmol/L (3.5-5.1); Protein, Total 8.3 g/dL (6.4-8.2); Sodium Level 139 mmol/L (136-145); Troponin (Emerg Dept Use Only) < 0.02 ng/mL (0.0-0.045)
--- NOTE | 2020-05-07 13:23 | RAD REPORT ---
EXAM DESCRIPTION: RAD - Chest Single View - 05/07/2020 1:15 pm CLINICAL HISTORY: HTN, REYNA Chest pain. COMPARISON: Chest Single View dated 03/06/2020; Chest Single View dated 01/07/2020; Chest Single View dated 01/06/2020; Chest Single View dated 11/14/2019 FINDINGS: Portable technique limits examination quality. The lungs are grossly clear. The heart is normal in size. No displaced fractures. IMPRESSION: No acute intrathoracic process suspected.
[2020-05-07] MEDS ORDERED: IBUPROFEN 400 MG TAB ONE (15:12)
--- NOTE | 2020-05-07 15:14 | ER ---
Nurse's Notes [facility] Name: Chantal Stout Age: 49 yrs Sex: Female : 1970 Arrival Date: 05/07/2020 Time: 11:12 Bed 13 Private MD: Diagnosis: Hypertensive heart disease;Headache Presentation: 05/07 11:36 Chief complaint: Patient states: headache, HTN 154/101, blurry vision started this sv morning at 0300. Took 2 ASA today at 1000. Coronavirus screen: Client denies travel out of the [place] in the last 14 days. headache, Client presents with at least one sign or symptom that may indicate coronavirus-19. Standard/surgical mask placed on the client. Provider contacted for isolation considerations. Ebola Screen: No symptoms or risks identified at this time. 11:36 Method Of Arrival: Ambulatory sv 11:38 Initial Sepsis Screen: Does the patient meet any 2 criteria? No. Patient's initial sv sepsis screen is negative. Does the patient have a suspected source of infection? No. Patient's initial sepsis screen is negative. Risk Assessment: Do you want to hurt yourself or someone else? Patient reports no desire to harm self or others. Onset of symptoms was May 07, 2020. 11:38 Acuity: NOÉ 2 sv Triage Assessment: 11:40 Headache History: The patient has had previous headaches and this one is similar to previous episodes. General: Appears in no apparent distress. uncomfortable, Behavior is calm, cooperative, appropriate for age. Neuro: Level of Consciousness is awake, alert, obeys commands, Oriented to person, place, time, situation, Moves all extremities. Full function Gait is steady, Speech is normal. Neuro: Reports blurred vision. Respiratory: Respiratory effort is even, unlabored, Respiratory pattern is regular, symmetrical. 12:00 Pain: Pain currently is 5 out of 10 on a pain scale. Pain began 4 hours ago. Also iw complains of no other associated symptoms. 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 - Social history:: Smoking status: Patient/guardian denies using tobacco, the patient reports quitting approximately 6 years ago. Screenin:58 Abuse screen: Denies threats or abuse. Denies injuries from another. Nutritional iw screening: No deficits noted. Tuberculosis screening: No symptoms or risk factors identified. Fall Risk None identified. Assessment: 12:40 General: Appears in no apparent distress. Behavior is calm, cooperative. Pain: iw Complains of pain in head. Neuro: Level of Consciousness is awake, alert, obeys commands, Oriented to person, place, time, situation, Moves all extremities. Full function Reports dizziness, headache. Cardiovascular: Patient's skin is warm and dry. Respiratory: Respiratory effort is even, unlabored, Respiratory pattern is regular, symmetrical. GI: Reports nausea. Derm: Skin is intact, is healthy with good turgor. Musculoskeletal: Range of motion: intact in all extremities. 13:57 Reassessment: Patient appears in no apparent distress at this time. Patient and/or iw family updated on plan of care and expected duration. Pain level reassessed. Patient is alert, oriented x 3, equal unlabored respirations, skin warm/dry/pink. 14:33 Reassessment: Patient appears in no apparent distress at this time. Patient and/or iw family updated on plan of care and expected duration. Pain level reassessed. pt reports feeling better but requesting something to eat to settle her stomach, sandwich and juice given. Vital Signs: 11:38 BP 180 / 108; Pulse 95; Resp 18; Temp 97.3(TE); Pulse Ox 98% on R/A; Weight 131.54 kg; sv Height 5 ft. 4 in. (162.56 cm); 13:00 BP 139 / 72; Pulse 74; Resp 16; Pulse Ox 98% on R/A; iw 13:57 BP 117 / 63; Pulse 96; Resp 16; Pulse Ox 97% on R/A; iw 14:34 BP 123 / 84; Pulse 75; Resp 16; Pulse Ox 98% on R/A; iw 11:38 Body Mass Index 49.78 (131.54 kg, 162.56 cm) sv ED Course: 11:12 Patient arrived in ED. as 11:36 Arm band placed on. sv 11:40 Triage completed. sv 12:35 Kirk Escudero MD is Attending Physician. kdr 12:39 Ingrid Bernabe, RN is Primary Nurse. iw 12:40 Patient has correct armband on for positive identification. iw 12:40 Initial lab(s) drawn, by sd, sent to lab. Inserted saline lock: 20 gauge in left upper iw arm, using aseptic technique. 12:53 CT Head Brain wo Cont In Process Unspecified. EDMS 13:05 EKG done, by ED staff, reviewed by Kirk Escudero MD. dh3 13:16 XRAY Chest (1 view) In Process Unspecified. EDMS 13:20 PO fluids given. PO snack given. jd3 15:25 No provider procedures requiring assistance completed. IV discontinued, intact, iw bleeding controlled, No redness/swelling at site. Pressure dressing applied. Administered Medications: 15:03 Drug: Motrin 800 mg Route: PO; iw 15:25 Not Given (Hemodynamic Parameters): Lopressor 5 mg IVP every 5 minutes; Hold for SBP < iw 100 or HR < 60. x3 Outcome: 15:13 Discharge ordered by . kdr 15:24 Discharged to home ambulatory, with family. iw 15:24 Condition: good 15:24 Discharge instructions given to patient, Instructed on discharge instructions, follow up and referral plans. Demonstrated understanding of instructions, follow-up care. 15:25 Patient left the ED. iw Signatures: Dispatcher [employer] EDMS Zuleima Ivory RN RN Kirk Escudero MD MD kdr Katlyn Moore as Ingrid Bernabe, ALCIDES MCGRATH Sophia Mckeon 3 Delta Zapata RN RN jd3 Corrections: (The following items were deleted from the chart) 11:41 11:38 Acuity: NOÉ 3 sv sv 11:41 11:38 Pulse 95bpm; Resp 18bpm; Pulse Ox 98% RA; Temp 97.3F; 131.54 kg; Height 5 ft. 4 sv in.; BMI: 49.7; sv
--- NOTE | 2020-05-07 15:14 | EDPHYS ---
Physician Documentation [facility] Name: Chantal Stout Age: 49 yrs Sex: Female : 1970 Arrival Date: 05/07/2020 Time: 11:12 Bed 13 Private MD: ED Physician Kirk Escudero HPI: 05/07 15:44 This 49 yrs old Female presents to ER via Ambulatory with complaints of High kdr Blood Pressure, Headache, Blurred Vision. 15:44 The patient has elevated blood pressure and discovered this at home, with a home kdr device. Onset: The symptoms/episode began/occurred this morning. Modifying factors: The symptoms are aggravated by activity, The symptoms are alleviated by Nothing. Associated signs and symptoms: Pertinent positives: headache, nausea, visual changes, Pertinent negatives: chest pain, dizziness, dyspnea, lightheadedness, vomiting, weakness. Severity of symptoms: At its worst the blood pressure was mild, 154 mm Hg, Normal is 130. The patient has not experienced similar symptoms in the past. The patient has not recently seen a physician. 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 - Social history:: Smoking status: Patient/guardian denies using tobacco, the patient reports quitting approximately 6 years ago. ROS: 15:44 Constitutional: Negative for fever, chills, and weight loss, Eyes: Negative for injury, kdr pain, redness, and discharge, ENT: Negative for injury, pain, and discharge, Neck: Negative for injury, pain, and swelling, Cardiovascular: Negative for chest pain, palpitations, and edema, Respiratory: Negative for shortness of breath, cough, wheezing, and pleuritic chest pain, Abdomen/GI: Negative for abdominal pain, nausea, vomiting, diarrhea, and constipation, Back: Negative for injury and pain, : Negative for injury, bleeding, discharge, and swelling, MS/Extremity: Negative for injury and deformity, Skin: Negative for injury, rash, and discoloration, Psych: Negative for depression, anxiety, suicide ideation, homicidal ideation, and hallucinations, Allergy/Immunology: Negative for hives, rash, and allergies, Endocrine: Negative for neck swelling, polydipsia, polyuria, polyphagia, and marked weight changes, Hematologic/Lymphatic: Negative for swollen nodes, abnormal bleeding, and unusual bruising. 15:44 Neuro: Positive for headache, visual changes, Negative for altered mental status, dizziness, gait disturbance, hearing loss, loss of consciousness, numbness, seizure activity, speech changes, syncope, near syncope, tingling, tinnitus, tremor, acute changes. Exam: 15:44 Constitutional: This is a well developed, well nourished patient who is awake, alert, kdr and in no acute distress. Head/Face: Normocephalic, atraumatic. Eyes: Pupils equal round and reactive to light, extra-ocular motions intact. Lids and lashes normal. Conjunctiva and sclera are non-icteric and not injected. Cornea within normal limits. Periorbital areas with no swelling, redness, or edema. Neck: Trachea midline, no thyromegaly or masses palpated, and no cervical lymphadenopathy. Supple, full range of motion without nuchal rigidity, or vertebral point tenderness. No Meningismus. Chest/axilla: Normal chest wall appearance and motion. Nontender with no deformity. No lesions are appreciated. Cardiovascular: Regular rate and rhythm with a normal S1 and S2. No gallops, murmurs, or rubs. Normal PMI, no JVD. No pulse deficits. Respiratory: Lungs have equal breath sounds bilaterally, clear to auscultation and percussion. No rales, rhonchi or wheezes noted. No increased work of breathing, no retractions or nasal flaring. Abdomen/GI: Soft, non-tender, with normal bowel sounds. No distension or tympany. No guarding or rebound. No evidence of tenderness throughout. Back: No spinal tenderness. No costovertebral tenderness. Full range of motion. Skin: Warm, dry with normal turgor. Normal color with no rashes, no lesions, and no evidence of cellulitis. MS/ Extremity: Pulses equal, no cyanosis. Neurovascular intact. Full, normal range of motion. Neuro: Awake and alert, GCS 15, oriented to person, place, time, and situation. Cranial nerves II-XII grossly intact. Motor strength 5/5 in all extremities. Sensory grossly intact. Cerebellar exam normal. Normal gait. Psych: Awake, alert, with orientation to person, place and time. Behavior, mood, and affect are within normal limits. 19:30 ECG was reviewed by the Attending Physician. kdr Vital Signs: 11:38 BP 180 / 108; Pulse 95; Resp 18; Temp 97.3(TE); Pulse Ox 98% on R/A; Weight 131.54 kg; sv Height 5 ft. 4 in. (162.56 cm); 13:00 BP 139 / 72; Pulse 74; Resp 16; Pulse Ox 98% on R/A; iw 13:57 BP 117 / 63; Pulse 96; Resp 16; Pulse Ox 97% on R/A; iw 14:34 BP 123 / 84; Pulse 75; Resp 16; Pulse Ox 98% on R/A; iw 11:38 Body Mass Index 49.78 (131.54 kg, 162.56 cm) sv MDM: 15:13 Patient medically screened. kdr 15:47 Data reviewed: vital signs, nurses notes, lab test result(s), radiologic studies. kdr Counseling: I had a detailed discussion with the patient and/or guardian regarding: the historical points, exam findings, and any diagnostic results supporting the discharge/admit diagnosis, lab results, radiology results, the need for outpatient follow up. 05/07 12:37 Order name: Basic Metabolic Panel; Complete Time: 13:27 kdr 05/07 12:37 Order name: CBC with Diff; Complete Time: 13:27 kdr 05/07 12:37 Order name: LFT's; Complete Time: 13:27 kdr 05/07 12:37 Order name: Magnesium; Complete Time: 13:27 kdr 05/07 12:37 Order name: NT PRO-BNP; Complete Time: 13:27 kdr 05/07 12:37 Order name: PT-INR; Complete Time: 13:27 kdr 05/07 12:36 Order name: CT Head Brain wo Cont; Complete Time: 13:27 kdr 05/07 12:37 Order name: Troponin (emerg Dept Use Only); Complete Time: 13:27 kdr 05/07 12:37 Order name: XRAY Chest (1 view); Complete Time: 13:27 [facility] 05/07 12:37 Order name: EKG; Complete Time: 12:46 kdr 05/07 12:37 Order name: Cardiac monitoring; Complete Time: 13:08 [facility] 05/07 12:37 Order name: EKG - Nurse/Tech; Complete Time: 13:08 kdr 05/07 12:37 Order name: IV Saline Lock; Complete Time: 13: kdr 05/07 12:37 Order name: Labs collected and sent; Complete Time: 13: [facility] 05/07 12:37 Order name: O2 Per Protocol; Complete Time: 13: kdr 05/07 12:37 Order name: O2 Sat Monitoring; Complete Time: : kdr EC:30 Rate is 100 beats/min. Rhythm is regular, Normal Sinus Rhythm with No ectopy. QRS [place] kdr is Normal. UT interval is normal. QRS interval is normal. QT interval is normal. Clinical impression: Normal ECG. Administered Medications: 15:03 Drug: Motrin 800 mg Route: PO; iw 15:25 Not Given (Hemodynamic Parameters): Lopressor 5 mg IVP every 5 minutes; Hold for SBP < iw 100 or HR < 60. x3 Disposition: 05/07/20 15:13 Discharged to Home. Impression: Hypertensive heart disease, Headache. - Condition is Stable. - Discharge Instructions: General Headache Without Cause, Hypertension, [id number]-lc-Sefs. - Medication Reconciliation Form, Thank You Letter form. - Follow up: Private Physician; When: 2 - 3 days; Reason: If symptoms return, Further diagnostic work-up, Recheck today's complaints, Continuance of care, Re-evaluation by your physician. - Problem is an acute exacerbation. - Symptoms have improved. Signatures: Dispatcher [employer] [facility] Zuleima Ivory RN RN Kirk Escudero MD MD kdr Ingrid Bernabe RN RN iw Corrections: (The following items were deleted from the chart) 15:25 15:13 05/07/2020 15:13 Discharged to Home. Impression: Hypertensive heart disease; iw Headache. Condition is Stable. Forms are Medication Reconciliation Form, Thank You Letter, Antibiotic Education, Prescription Opioid Use. Follow up: Private Physician; When: 2 - 3 days; Reason: If symptoms return, Further diagnostic work-up, Recheck today's complaints, Continuance of care, Re-evaluation by your physician. Problem is an acute exacerbation. Symptoms have improved. kdr
[2020-05-07 15:36] VITALS: TEMP 97.3
[2020-05-07 15:42] VITALS: BP 123/84; O2SAT 98
== END 2020-05-07 15:25 | disposition home or self-care (01) ==
LOC: ER 11:09
DX: I11.9 Hypertensive heart disease without heart failure (principal); I10 Essential (primary) hypertension; Z88.1 Allergy status to other antibiotic agents; Z88.2 Allergy status to sulfonamides; Z88.5 Allergy status to narcotic agent
CPT/HCPCS: 36415; 70450; 71045; 80048; 80076; 83735; 83880; 84484; 85025; 85610; 93005; 99284

== ENCOUNTER 2020-06-16 14:40 | Emergency (ER) | payer SELFPAY ==
--- OUTSIDE RECORDS SUMMARY | 2020-06-16 14:43 | XMS REPORT | Clinical Summary ---
:1970 Author Organization [facility] Address [address] [place] [address] Care Team Providers Name Role Phone Pcp [...] Nasal 3 packet 5 06/25/2018 A ctive vgrna-lflolh-padhqx route 2 (two) bottle (NEILMED SINUS times [...] Signs Not on file Plan of Treatment Health Maintenance Due Date Last Done Comments BREAST CANCER SCREENING 1970 COLON CANCER SCREENING COLONOSCOPY 1970 CERVICAL CANCER SCREENING PAP ONLY (Age 21-65) 1991 LIPID PANEL 2015 INFLUENZA VACCINE (#1) 2020 06/23/2016 Implants Implanted Type Area Water Use Inspector Device Shelf Model / Identifier Expiration Serial / Date Lot Sealant Durasl Spine 5ml [id number] - [id number] Cement/Fi N/A: INT EGRA LIFESCI [id number] / Implanted: Qty: 1 on 06/24/2018 by Alex Hinds MD at [facility] ller/Adhe Head / sive [id number] Flseal Vhsd Full Strlprep 10ml [id number] - [id number] Cement/Fi N/A : FUNES:BIOSCI 11/18/2019 [id number] / Implanted: Qty: 1 on 06/24/2018 by Alex Hinds MD at [facility] ller/Adhe Head / sive [id number] Graft Matrix Dura 1x3 [id number] - [id number] Neuro N/A: [employer] 02/20/2020 [id number] / Implanted: Qty: 1 on 06/24/2018 by Alex Hinds MD at [facility] Head SURGICAL / NAVIGATION [id number] Results Not on fileafter 06/16/2019 Insurance Payer Benefit Plan / Subscriber ID Effective Dates Phone Addre ss Type Group BLUE BCBS OS [id number] 2008-Presen [phone] [address] PPO CROSS/BLUE POS/PPO/EPO t 2 [facility] [id number] Advance Directives For more information, please contact: [phone] Type Date Recorded Patient 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
--- OUTSIDE RECORDS SUMMARY | 2020-06-16 14:44 | XMS REPORT ---
:1970 Author Organization [facility] Address [address] [place] [address] Care Team Providers Name Role Phone Haugan Unavailable [phone] PROBLEMS Type Condition ICD9-CM [id number] Onset Condition SNOMED Code Notes Code Code Dates Status Problem Type 2 diabetes E11.65 Active 41386920 mellitus with hyperglycemia Problem custodial Z79.4 Active 761622078 (current) use of insulin Problem Hypertension I10 Active 44603470 Problem Hyperlipidemia E78.5 Active 08621034 Problem Allergic rhinitis, J30.9 Active 00859305 unspecified Problem Essential I10 Active 35284108 hypertension Problem Anxiety F41.9 Active 85128485 Problem Vaginal joseph B37.3 Active 11890475 Problem Hypothyroidism E03.9 Active 91102526 Problem Migraines G43.909 Active 02606119 Problem Seasonal allergic J30.1 Active 81367320 rhinitis due to pollen Problem Fatty liver K76.0 Active 051363174 Problem Dental abscess K04.7 Active 950892508 ALLERGIES Allergen (clinical Drug/Non Drug Reaction Allergy Type Onset Date S tatus drug ingredient) Allergy documented on EMR sulfamethoxazole / Bactrim(NDC face swelling Drug Allergy Active trimethoprim Code:[address]- 01) Iodine([facility] increases BS to Drug Allergy Active Code:14673-49802 400's,skin blisters ) fenofibrate Fenofibrate(NDC face swelling Drug Allergy Act priyanka Code:[address]- 01) empagliflozin Jardiance([facility] severe anxiety Drug Allergy Ac tive Code:[address]- 30) vancomycin vancomycin face swelling, Drug Allergy Active fever azithromycin Azithromycin([facility] decreased Drug Allergy Acti ve Code:[address]- B/P,palpitations 01) statin throat swelling Drug Allergy Active Levaquin hallucinations Drug Allergy Active lisinopril Lisinopril([facility] cough Drug Allergy Active Code:[address]- 01) clindamycin clindamycin swelling Drug Allergy Active ENCOUNTERS from 1970 to 2020-04-29 Encounter Location Date Provider Diagnosis [facility] [address] [facility] [address] 08 Apr, 2020 [place] [address] IMMUNIZATIONS No Information SOCIAL HISTORY Tobacco Use: [...] Name:Linnea Logan, 2020-07-19 08 :00:00 AM, [address] [facility], [address], [place], [address], Insurance Providers Payer Name Payer Payer Insured Name Patient Coverage Covera End Address Phone Relationship to Start Date Brandon e Insured [employer] [phone] [place] [id number] [facility] [address]
--- OUTSIDE RECORDS SUMMARY | 2020-06-16 14:44 | XMS REPORT ---
:1970 Author Organization [facility] Address [address] [place] [address] Care Team Providers Name Role Phone Nipomo Unavailable [phone] PROBLEMS Type Condition ICD9-CM [id number] Onset Condition SNOMED Code Notes Code Code Dates Status Problem Type 2 diabetes E11.65 Active 81662997 mellitus with hyperglycemia Problem intermediate Z79.4 Active 551580582 (current) use of insulin Problem Hypertension I10 Active 77931346 Problem Hyperlipidemia E78.5 Active 71303135 Problem Allergic rhinitis, J30.9 Active 74145570 unspecified Problem Essential I10 Active 00565764 hypertension Problem Anxiety F41.9 Active 57539622 Problem Vaginal joseph B37.3 Active 41168864 Problem Hypothyroidism E03.9 Active 55551221 Problem Migraines G43.909 Active 80670944 Problem Seasonal allergic J30.1 Active 17723233 rhinitis due to pollen Problem Fatty liver K76.0 Active 003920781 Problem Dental abscess K04.7 Active 905397527 ALLERGIES Allergen (clinical Drug/Non Drug Reaction Allergy Type Onset Date S tatus drug ingredient) Allergy documented on EMR sulfamethoxazole / Bactrim(NDC face swelling Drug Allergy Active trimethoprim Code:[address]- 01) Iodine([facility] increases BS to Drug Allergy Active Code:11822-13053 400's,skin blisters ) fenofibrate Fenofibrate(NDC face swelling Drug Allergy Act priyanka Code:[address]- 01) empagliflozin Jardiance([facility] severe anxiety Drug Allergy Ac tive Code:[address]- 30) vancomycin vancomycin face swelling, Drug Allergy Active fever azithromycin Azithromycin([facility] decreased Drug Allergy Acti ve Code:[address]- B/P,palpitations 01) statin throat swelling Drug Allergy Active Levaquin hallucinations Drug Allergy Active lisinopril Lisinopril([facility] cough Drug Allergy Active Code:[address]- 01) clindamycin clindamycin swelling Drug Allergy Active ENCOUNTERS from 1970 to 2020-04-19 Encounter Location Date Provider Diagnosis [facility] [address] [facility] [address], Linnea Logan [facility] (current) use [facility] [address], of insu minh Z79.4 ; [place] [address] 2 diabetes annita litus with hyperglyce jean [...] 10.3 REASON FOR VISIT 3 month f/u ([phone]) MEDICAL (GENERAL) HISTORY Type Description Date Medical [...] Information ASSESSMENTS Encounter Date Diagnosis Notes Mar, intermediate (current) use of insulin (ICD- 10 - Z79.4) Mar, Hypertension (ICD-10 - I10) Mar, Type 2 diabetes mellitus with hyperglyce jean paul (ICD-10 - E11.65) Mar, Hypothyroidism (ICD-10 - E03.9) PLAN OF TREATMENT Treatment Notes Assessment Notes Clinical Notes intermediate (current) use of insulin inc insulin by [...] :00:00 AM, [address], [address], [place], [address], Insurance Providers Payer Name Payer Payer Insured Name Patient Coverage Covera End Address Phone Relationship to Start Date Brandon e Insured [employer] [phone] [place] [id number] [facility] [address]
--- OUTSIDE RECORDS SUMMARY | 2020-06-16 14:44 | XMS REPORT ---
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
--- OUTSIDE RECORDS SUMMARY | 2020-06-16 14:44 | XMS REPORT | Continuity of Care Document ---
:1970 Author Organization [facility] t Address [address] [place] [address] Care Team Providers Name Role Phone Pcp [...] St Reaction swelling [facility] clindamy Adverse Active swelling [facility] vancomyc Adverse Active face [facility] in Reaction swelling, [facility] - fever [facility] Clinics Jardianc Adverse Active severe [facility] e Reaction anxiety [facility] Iodine Adverse Active increases BS [facility] Reaction to [facility] - 400's,skin Memori a blisters l [facility] ent Clinics Azithrom Adverse Active decreased [facility] ycin Reaction B/P,palpitat [place]es - ions [facility] ent [facility] Lisinopr Adverse Active cough [facility] Reaction [facility] Fenofibr Adverse Active face [facility] ate Reaction swelling [facility] Bactrim Adverse Active face [facility] Reaction swelling [facility] Levaquin Adverse Active hallucinatio C HI St Reaction ns [facility] Family History Family Member Diagnosis Comments Start Date Stop Date Source Natural father Hypertension [facility] Natural mother Diabetes [facility] Natural mother Hypertension [facility] Other Diabetes [facility] Social History Social Habit Start Date Stop Date Quantity Comments Source History [facility] St[facility] Dr[facility] Alcohol Binge Medical Alisha ter Sex Assigned At [facility] Tobacco use and 2018-06-24 2018-06-[address] [facility] - exposure 00:00:00 00:00:00 Medical Center Alcohol intake 2018-06-24 2018-06-24 [facility]00 [facility] alcohol [facility] (finding) History SDOH 2018-06-18 2018-06-[address] [facility] - Alcohol Frequency 00:00:00 00:00:00 [facility] Center Smoking Status Start Date Stop Date Source Former smoker 2018-06-24 00:00:00 2018-06-24 00:00:[address] [facility] Medications Ordered Filled Start Stop Current [...] tablet [facility] ne Sodium ne Sodium [place] in the [place] kes - morning on Memoria an empty l stomach Outpati ent Clinics Procedures This patient has no known procedures. Plan of Care Planned Activity Planned Date Details Comments Source Future Scheduled 2020-03-[address] [facility] Test 00:00:00 (#1) [code = [facility] INFLUENZA VACCINE (#1)] Future Scheduled [address] [facility] - Test 00:00:00 (procedure) [code = [facility] 53574546] Future Scheduled [address] [facility] - Test 00:00:00 malignant neoplasm Medical C enter of cervix (procedure) [code = 182187841] Future Scheduled 1970 Screening for [facility] - Test 00:00:00 malignant neoplasm Medical C enter of breast (procedure) [code = 095900526] Future Scheduled [address] - Test 00:00:00 malignant neoplasm Medical C enter of colon (procedure) [code = 611196704] Encounters Start End Encounter Admission Attending Care Care Encounter Source Date/Time Date/Time Type Type Clinicians Facility Department ID 2020-04-29 2020-04-29 Outpatient [facility] [id number] [facility] 2020-04-19 2020-04-19 Outpatient [facility] [id number] [facility] 2020-03-22 2020-03-22 [facility] [id number] [address] 11:50:00 11:50:00 [facility] Medicine Outpati ent Clinics 2020-02-18 2020-02-18 [facility] [id number] 09:26:00 09:26:00 t [facility] Medicine Outpati ent Clinics 2020-02-05 2020-02-05 [facility] [id number] 08:00:00 08:00:00 t [facility] Medicine Outpati ent Clinics 2020-02-02 2020-02-02 [facility] [id number] 18:03:00 18:03:00 t [facility] Medicine Medicine Outpati ent Clinics 2019-11-19 2019-11-19 [facility] [id number] 09:25:00 09:25:00 t [facility] Medicine Outpati ent Clinics 2019-11-10 2019-11-10 [facility] [id number] 10:08:00 10:08:00 t [facility] Medicine l Medicine Outpati ent Clinics 2019-11-06 2019-11-06 [facility] [id number] 08:00:00 08:00:00 t [facility] Medicine Outpati ent Clinics 2019-10-30 2019-10-30 [facility] [id number] 15:58:00 15:58:00 t [facility] Medicine Outpati ent Clinics 2019-10-27 2019-10-27 [facility] [id number] 11:16:00 11:16:00 t [facility] Medicine Outpati ent Clinics 2019-08-12 2019-08-12 Outpatient [facility] [id number] [facility] 00[facility]00 [facility] Outpati ent Clinics 2019-08-07 2019-08-07 [facility] [id number] 08:40:00 08:40:00 t [facility] Medicine Outpati ent Clinics 2019-05-01 2019-05-01 [facility] [id number] 09[facility]40:00 09:40:00 t [facility] Medicine Outpati ent Clinics 2019-01-30 2019-01-30 [facility] [id number] 08:40:00 08:40:00 t [facility] Medicine Outpati ent Clinics 2018-10-27 2018-10-27 [facility] [id number] 06:29:00 06:29:00 t [facility] Medicine Outpati ent Clinics 2018-10-22 2018-10-22 [facility] [id number] 13:00:00 13:00:00 [facility] Medicine Outpati ent Clinics 2018-07-30 2018-07-30 [facility] [id number] 13:30:00 13:30:00 t [facility] Medicine Outpati ent Clinics 2018-07-25 2018-07-25 [facility] [id number] 19:48:00 19:48:00 t [facility] Medicine Outpati ent Clinics 2018-03-12 2018-03-12 [facility] [id number] 13:41:00 13:41:00 t [facility] Medicine Outpati ent Clinics 2018-02-27 2018-02-27 [facility] [id number] 14:46:00 14:46:00 t [facility] Medicine Outpati ent Clinics 2018-02-20 2018-02-20 [facility] [id number] 08:30:00 08:30:00 [facility] Medicine Outpati ent Clinics 2018-02-12 2018-02-12 [facility] [id number] 10:45:00 10:45:00 [facility] Medicine Outpati ent Clinics 2018-01-21 2018-01-21 [facility] [id number] 09:00:00 09:00:00 [facility] Medicine Outpati ent Clinics Results Test Description Test Time Test Comments Results Result Sour e Comments TISSUE EXAM 2018-06-28 Surgical Pathology Report 08:38:00 Case: [id number] Authorizing Provider: lAex Ruano MD Collected: 06/24/2018 0802 Ordering Location: [address] Received: 06/24/2018 0809 Service Pathologist: Chon Andino MD Specimens: A) - Tumor, pituitary tumor B) - Tumor, pituitary tumor A.PITUITARY GLAND, TRANSSPHENOIDAL 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 PITUITARY GLAND, TRANSSPHENOIDAL HYPOPHYSECTOMY:NULL CELL ADENOMAENTRAPPED ADENOHYPOPHYSIS Signing Pathologist Direct Phone Line: [phone] y signed by Chon Andino MD on 06/28/2018 at 8:38 AMImmunoperoxidase stains performed on the second specimen show that the tumor has no staining for growth hormone, LH, FSH, TSH, prolactin, or ACTH. 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 The MIB-1 proliferation index is less than 1%. 04863 x 2; 88492; 21716; 29031 x 6; 96779Nmbwbtnan adenoma A. Pituitary tumor; B. Pituitary tumorA. [...] stains. Immunohistochemistry technical testing was performed at [facility], Pathology Laboratory where it was developed [...] Reference Range Interpretation Comme nts POC-GLUCOSE METER (Xignite) (test 141 mg/dL 70-110 H TESTED AT [facility] [address] [facility] code = 1538) [facility] 7703 0 POCT-GLUCOSE [id number] 12:06:00 Test Item Value Reference Range Interpretation Comments POC-GLUCOSE METER 217 mg/dL 70-110 H TESTED AT [facility] 6720 (Xignite) (test code = [place] [facility] 1538) 27514 BASIC METABOLIC [id number] 07:18:00 Test Item Value Reference Range Interpretation [...] PATIEN TS. CBC W/PLT COUNT & AUTO [id number] 06:49:00 Test Item Value Reference Range Interpretation [...] (BEAKER) (test code = 2801) BASIC METABOLIC [id number] 23:52:00 Test Item Value Reference Range Interpretation [...] APPLICABLE FOR DIALYSIS PATIEN TS. SODIUM, RANDOM [id number] 23:49:00 Test Item Value Reference Range Interpretation Comments SODIUM URINE (BEAKER) (test code = < meq/L 243) Reference Range: No NormalsCBC W/PLT COUNT & AUTO [id number] 23:35:00 Test Item Value Reference Range Interpretation [...] (test code = 2801) CT, BRAIN, WITHOUT [id number] 22:57:00FINAL REPORT CT Head without contrast CLINICAL [...] Verified Date/Time: 06/26/2018 22:57:28 Reading Location: [address] -GLUCOSE [id number] 21:07:00 Test Item Value Reference Range Interpretation Comments POC-GLUCOSE METER 211 mg/dL 70-110 H TESTED AT [facility] 6720 (BEAKER) (test code = [place] 1538) [address] BASIC METABOLIC [id number] 14:29:00 Test Item Value Reference Range Interpretation [...] PATIEN TS. CBC W/PLT COUNT & AUTO [id number] 14:25:00 Test Item Value Reference Range Interpretation [...] PERCENT (BEAKER) (test code = 2801) POCT-GLUCOSE [id number] 13:38:00 Test Item Value Reference Range Interpretation Comments POC-GLUCOSE METER 219 mg/dL 70-110 H TESTED AT [place] [address] ([facility]) (test code = [place] [facility] 1538) [address] POCT-GLUCOSE [id number] 12:34:00 Test Item Value Reference Range Interpretation Comments POC-GLUCOSE METER 193 mg/dL 70-110 H TESTED AT [place] [address] ([facility]) (test code = [place] [facility] 1538) [address] POCT-GLUCOSE [id number] 16:17:00 Test Item Value Reference Range Interpretation Comments POC-GLUCOSE METER 244 mg/dL 70-110 H TESTED AT [place] [address] ([facility]) (test code = [place] [facility] 1538) 06164 POCT-GLUCOSE [id number] 12:08:00 Test Item Value Reference Range Interpretation Comments POC-GLUCOSE METER 229 mg/dL 70-110 H TESTED AT [place] [address] (BEAKER) (test code = [place] [facility] 1538) [address] POCT-GLUCOSE [id number] 08:27:00 Test Item Value Reference Range Interpretation Comments POC-GLUCOSE METER 280 mg/dL 70-110 H TESTED AT [place] [address] (BEAKER) (test code = [place] [facility] 1538) [address] OSMOLALITY, [id number] 05:16:00 Test Item Value Reference Range Interpretation Comments OSMOLALITY URINE (BEAKER) (test 340 mOsm/kg 40-1,400 code = 614) SPECIFIC GRAVITY, [id number] 04:53:00 Test Item Value Reference Range Interpretation Comments SPECIFIC GRAVITY UA (BEAKER) (test code 1.010 1.001-1.035 = 468) POCT-GLUCOSE [id number] 22:29:00 Test Item Value Reference Range Interpretation Comments POC-GLUCOSE METER 257 mg/dL 70-110 H TESTED AT [place] [address] (BEAKER) (test code = [facility] Jadiel [facility] 1538) [address] BASIC METABOLIC [id number] 17:49:00 Test Item Value Reference Range Interpretation [...] NOT APPLICABLE FOR DIALYSIS PATIEN TS. POCT-GLUCOSE [id number] 17:02:00 Test Item Value Reference Range Interpretation Comments POC-GLUCOSE METER 235 mg/dL 70-110 H TESTED AT [place] [address] [facility] (test code = [facility] 1538) [address] POCT-GLUCOSE [id number] 12:06:00 Test Item Value Reference Range Interpretation Comments POC-GLUCOSE METER 249 mg/dL 70-110 H TESTED AT [place] [address] ([facility] (test code = [facility] 1538) [address]70 POCT-GLUCOSE [id number] 09:40:00 Test Item Value Reference Range Interpretation Comments POC-GLUCOSE METER 278 mg/dL 70-110 H TESTED AT [place] [address] ([facility] (test code = [facility] 1538) [address] BASIC METABOLIC [id number] 06:14:00 Test Item Value Reference Range Interpretation [...] S NOT APPLICABLE FOR DIALYSIS PATIEN TS. [id number] 06:03:00 Test Item Value Reference Range Interpretation [...] for patients with mechanical heart valves. SCREEN, [id number] 05:59:00 Test Item Value Reference Range Interpretation Comments TEST URINE (BEAKER) (test Negative code = 583) POCT-GLUCOSE [id number] 05:46:00 Test Item Value Reference Range Interpretation Comments POC-GLUCOSE METER 140 mg/dL 70-110 H TESTED AT [facility] 6720 ([facility]) (test code = [place] 1538) [address] CBC W/PLT COUNT & AUTO [id number] 05:46:00 Test Item Value Reference Range Interpretation [...] PERCENT (BEAKER) (test code = 2801) POCT-GLUCOSE [id number] 21:27:00 Test Item Value Reference Range Interpretation Comments POC-GLUCOSE METER 223 mg/dL 70-110 H TESTED AT [facility] 6720 (BEAKER) (test code = [facility] 1538) 10666 POCT-GLUCOSE [id number] 17:26:00 Test Item Value Reference Range Interpretation Comments POC-GLUCOSE METER 223 mg/dL 70-110 H TESTED AT [place] [address] (BEAKER) (test code = [facility] 1538) [address] BASIC METABOLIC [id number] 16:43:00 Test Item Value Reference Range Interpretation [...] H (BEAKER) (test code = 652) CALCIUM ([facility]) 9.6 mg/dL 8.4-10.2 (test code = 697) EGFR ([facility]) (test 81 mL/min/1.73 ESTIMA EDOUARD GFR IS code = 1092) sq m NOT ACCURATE CREATININE CLEARANCE IN PREDICTING GLOMERULAR FILTRATION RATE . ESTIMATED GFR I S NOT APPLICABLE FOR DIALYSIS PATIEN TS. POCT-GLUCOSE [id number] 09:06:00 Test Item Value Reference Range Interpretation Comments POC-GLUCOSE METER 265 mg/dL 70-110 H TESTED AT [place] [address] ([facility]) (test code = [place] 1538) [address] POCT-GLUCOSE [id number] 00:22:00 Test Item Value Reference Range Interpretation Comments POC-GLUCOSE METER 210 mg/dL 70-110 H TESTED AT [place] [address] ([facility]) (test code = [place] 1538) [address] POCT-GLUCOSE [id number] 20:27:00 Test Item Value Reference Range Interpretation Comments POC-GLUCOSE METER 235 mg/dL 70-110 H TESTED AT [place] [address] ([facility]) (test code = [place] 1538) [address] POCT-GLUCOSE [id number] 17:10:00 Test Item Value Reference Range Interpretation Comments POC-GLUCOSE METER 264 mg/dL 70-110 H TESTED AT [place] [address] ([facility]) (test code = [place] 1538) [address] POCT-GLUCOSE [id number] 16:00:00 Test Item Value Reference Range Interpretation Comments POC-GLUCOSE METER 242 mg/dL 70-110 H TESTED AT [place] [address] ([facility]) (test code = [place] 1538) [address] POCT-GLUCOSE [id number] 08:54:00 Test Item Value Reference Range Interpretation Comments POC-GLUCOSE METER 224 mg/dL 70-110 H TESTED AT [place] [address] ([facility]) (test code = [place] 1538) [address] POCT-GLUCOSE [id number] 21:30:00 Test Item Value Reference Range Interpretation Comments POC-GLUCOSE METER 254 mg/dL 70-110 H TESTED AT [place] [address] ([facility]) (test code = BERTNE R [facility] 1538) [address]29 POCT-GLUCOSE [id number] 17:23:00 Test Item Value Reference Range Interpretation Comments POC-GLUCOSE METER 193 mg/dL 70-110 H TESTED AT [place] [address] ([facility]) (test code = [place] 1538) [address] POCT-GLUCOSE [id number] 11:53:00 Test Item Value Reference Range Interpretation Comments POC-GLUCOSE METER 179 mg/dL 70-110 H TESTED AT [place] [address] ([facility]) (test code = [place] [facility] 1538) [address] [id number] 10:15:00 Test Item Value Reference Range Interpretation Comments CORTISOL, TOTAL ([facility]) (test code 4.7 ug/dL 3.7-19.4 = 2755) POCT-GLUCOSE [id number] 08:07:00 Test Item Value Reference Range Interpretation Comments POC-GLUCOSE METER 184 mg/dL 70-110 H TESTED AT [place] [address] ([facility]) (test code = [place] [facility] 1538) [address] CT, BRAIN, WITHOUT [id number] 22:07:00FINAL REPORT CT Head without contrast CLINICAL [...] Gamboa Verified Date/Time: 06/20/2018 22:07:25 Reading Location: [facility] C013T Transitional Reading Room POCT-GLUCOSE [id number] 21:00:00 Test Item Value Reference Range Interpretation Comments POC-GLUCOSE METER 227 mg/dL 70-110 H TESTED AT [place] [address] (BEAKER) (test code = [place] 1538) [address] POCT-GLUCOSE [id number] 16:57:00 Test Item Value Reference Range Interpretation Comments POC-GLUCOSE METER 216 mg/dL 70-110 H TESTED AT [place] [address] (BEAKER) (test code = [place] 1538) [address] POCT-GLUCOSE [id number] 13:11:00 Test Item Value Reference Range Interpretation Comments POC-GLUCOSE METER 198 mg/dL 70-110 H TESTED AT [place] [address] (BEAKER) (test code = [place] 1538) [address] POCT-GLUCOSE [id number] 07:47:00 Test Item Value Reference Range Interpretation Comments POC-GLUCOSE METER 213 mg/dL 70-110 H TESTED AT [place] [address] (BEAKER) (test code = [place] 1538) [address] BASIC METABOLIC [id number] 06:57:00 Test Item Value Reference Range Interpretation Comments SODIUM (BEAKER) 138 meq/L 136-145 (test code = 381) POTASSIUM (BEAKER) 3.9 meq/L 3.5-5.1 (test code = 379) CHLORIDE (BEAKER) 105 meq/L 98-107 (test code = 382) CO2 (BEAKER) (test 24 meq/L code = 355) BLOOD UREA NITROGEN 12 [...] NOT APPLICABLE FOR DIALYSIS PATIEN TS. POCT-GLUCOSE [id number] 05:24:00 Test Item Value Reference Range Interpretation Comments POC-GLUCOSE METER 192 mg/dL 70-110 H TESTED AT [facility] 6720 (BROOK) (test code = [place] 1538) [address] CT, CTANGIO [id number] 01:03:00FINAL REPORT CLINICAL HISTORY: Stroke TECHNIQUE: Initially, [...] NASCET criteria. Signed: Brian Gamboa MDReperan Verified Date/Time: 06/20/2018 01:03:44 Reading Location: [address] Transitional Reading Room CT, CAROTID, ANGIO 2018-06-20 01:03:00FINAL REPORT CLINICAL HISTORY: [...] Gamboa Verified Date/Time: 06/20/2018 01:03:44 Reading Location: [facility] C0[facility] Transitional Reading Room POCT-GLUCOSE METER 2018-06-20 00:40:00 Test Item Value Reference Range Interpretation Comments POC-GLUCOSE METER 283 mg/dL 70-110 H TESTED AT [place] [address] ([facility]) (test code = [place] [facility] 1538) [address] POCT-GLUCOSE [id number] 21:21:00 Test Item Value Reference Range Interpretation Comments POC-GLUCOSE METER 343 mg/dL 70-110 H TESTED AT [place] [address] ([facility]) (test code = JABIERCT Jadiel [facility] 1538) [address] SCREEN, [id number] 18:52:00 Test Item Value Reference Range Interpretation Comments TEST URINE ([facility]) (test Negative code = 583) POCT-GLUCOSE [id number] 17:17:00 Test Item Value Reference Range Interpretation Comments POC-GLUCOSE METER 287 mg/dL 70-110 H TESTED AT [place] [address] ([facility]) (test code = [place] 1538) [address] [id number] 15:59:00 Test Item Value Reference Range Interpretation Comments RPR SCREEN ([facility]) (test code = Nonreactive Nonreactive 420) POCT-GLUCOSE [id number] 15:07:00 Test Item Value Reference Range Interpretation Comments POC-GLUCOSE METER 323 mg/dL 70-110 H TESTED AT [place] [address] ([facility]) (test code = [place] [facility] 1538) [address] T4, [id number] 13:11:00 Test Item Value Reference Range Interpretation Comments FREE T4 ([facility]) (test code = 655) 0.89 ng/dL 0.70-1.48 HIV-1 ANTIGEN WITH HIV-1/2 [id number] 13:11:00 Test Item Value Reference Range Interpretation Comments HIV-1 ANTIGEN WITH HIV 1\\T\\2 Nonreactive Nonreactive ANTIBODY (2) (BEAKER) (test code = 2586) RAPID DRUG SCREEN, [id number] 12:47:00 Test Item Value Reference Range Interpretation [...] situations. Chain of custody not maintained. Some akxc-zkw-lkmxjmg medications, as well as adulterants, may cause inaccurate results. Clinical correlation should be applied. A more comprehensive drug screen or confirmation of a detected drug may be performed upon request. POCT-GLUCOSE [id number] 12:37:00 Test Item Value Reference Range Interpretation Comments POC-GLUCOSE METER 292 mg/dL 70-110 H TESTED AT [facility] 6720 (DAMION) (test code = [place] 1538) [address] HEMOGLOBIN [id number] 12:35:00 Test Item Value Reference Range Interpretation Comments HEMOGLOBIN A1C (BROOK) (test code = 7.9 % 4.3-6.1 H 368) OSMOLALITY, [id number] 12:34:00 Test Item Value Reference Range Interpretation Comments OSMOLALITY, SERUM (BEAKER) (test 310 mOsm/kg 275-295 H code = 615) C-REACTIVE [id number] 12:28:00 Test Item Value Reference Range Interpretation Comments C-REACTIVE PROTEIN (BEAKER) (test 0.81 mg/dL 0.00-0.50 H code = 676) OSMOLALITY, [id number] 12:22:00 Test Item Value Reference Range Interpretation Comments OSMOLALITY URINE (BEAKER) (test 247 mOsm/kg 40-1,400 code = 614) CBC W/PLT COUNT & AUTO [id number] 12:14:00 Test Item Value Reference Range Interpretation [...] PERCENT (BEAKER) (test code = 2801) POCT-GLUCOSE [id number] 10:30:00 Test Item Value Reference Range Interpretation Comments POC-GLUCOSE METER 341 mg/dL 70-110 H TESTED AT [place] [address] ([facility]) (test code = [place] [facility] 1538) 150[address] [id number] 06:17:00 Test Item Value Reference Range Interpretation Comments [facility]OLACTIN [facility] (test code = 23.34 ng/mL 5.18-26.53 758) POCT-GLUCOSE [id number] 05:55:00 Test Item Value Reference Range Interpretation Comments POC-GLUCOSE METER 285 mg/dL 70-110 H TESTED AT [place] [address] ([facility]) (test code = [place] [facility] 1538) [address] MR, BRAIN, [id number] 02:25:00Pituitary protocolCr 0.6FINAL REPORT MRI brain with and without contrast Comparison: None. 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 URINALYSIS W/ REFLEX URINE [id number] 23:13:00 Test Item Value Reference Range Interpretation [...] code = 516) SOURCE(BEAKER) (test code = 5672)
--- OUTSIDE RECORDS SUMMARY | 2020-06-16 14:45 | XMS REPORT ---
:1970 Author Organization [facility] Address [address] [place] [address] Care Team Providers Name Role Phone [facility] Unavailable [phone] PROBLEMS Type Condition ICD9-CM [id number] Onset Condition SNOMED Code Notes Code Code Dates Status Problem Type 2 diabetes E11.65 Active 37377425 mellitus with hyperglycemia Problem skilled nursing Z79.4 Active 899303299 (current) use of insulin Problem Hypertension I10 Active 69356600 Problem Hyperlipidemia E78.5 Active 21881938 Problem Allergic rhinitis, J30.9 Active 25303701 unspecified Problem Essential I10 Active 82377796 hypertension Problem Anxiety F41.9 Active 09442506 Problem Vaginal joseph B37.3 Active 31660836 Problem Hypothyroidism E03.9 Active 94816040 Problem Migraines G43.909 Active 43259802 Problem Seasonal allergic J30.1 Active 12145429 rhinitis due to pollen Problem Fatty liver K76.0 Active 291098884 Problem Dental abscess K04.7 Active 368629969 ALLERGIES Allergen (clinical Drug/Non Drug Reaction Allergy Type Onset Date S tatus drug ingredient) Allergy documented on EMR sulfamethoxazole / Bactrim(NDC face swelling Drug Allergy Active trimethoprim Code:[address]- 01) Iodine([facility] increases BS to Drug Allergy Active Code:23846-22214 400's,skin blisters ) fenofibrate Fenofibrate(NDC face swelling Drug Allergy Act priyanka Code:[address]- 01) empagliflozin Jardiance([facility] severe anxiety Drug Allergy Ac tive Code:[address]- 30) vancomycin vancomycin face swelling, Drug Allergy Active fever azithromycin Azithromycin([facility] decreased Drug Allergy Acti ve Code:[address]- B/P,palpitations 01) statin throat swelling Drug Allergy Active Levaquin hallucinations Drug Allergy Active lisinopril Lisinopril([facility] cough Drug Allergy Active Code:[address]- 01) clindamycin clindamycin swelling Drug Allergy Active ENCOUNTERS from 1970 to 2020-04-29 Encounter Location Date Provider Diagnosis [facility] [address] [facility] [address] Jul, 2019 [place] [address] IMMUNIZATIONS No Information SOCIAL HISTORY Tobacco Use: [...] Name:Linnea Logan, 2020-07-19 08 :00:00 AM, [address], [address], [place], [address], Insurance Providers Payer Name Payer Payer Insured Name Patient Coverage Covera End Address Phone Relationship to Start Date Brandon e Insured [employer] [phone] [place] [id number] [facility] [id number]
[2020-06-16] MEDS ORDERED: ASPIRIN 81 MG CHEWABLE TABLET ONE (15:15)
[2020-06-16 15:20] LABS: Absolute Lymphocytes (CBC) 2.1 K/uL (0.7-4.9); Basophils % 1.3 % (0-1.3); Hematocrit 45.6 % (36.0-45.0); Lymphocytes % 17.3 % (15.3-44.8); MPV 9.6 fL (7.6-11.3); Protime INR 1.02; RBC Red Blood Cell Count 5.74 M/uL (3.86-4.86)
--- NOTE | 2020-06-16 15:33 | RAD REPORT ---
EXAM DESCRIPTION: RAD - Chest Single View - 06/16/2020 3:20 pm CLINICAL HISTORY: left upper arm pain, chest pain COMPARISON: Portable May 07 TECHNIQUE: AP portable chest image was obtained 06/16/2020 3:20 pm . FINDINGS: Lungs are clear. Heart and vasculature are normal. No measurable pleural effusion and no p neumothorax. No acute bony abnormality seen. No acute aortic findings suspected. IMPRESSION: No acute cardiopulmonary process. No significant change from comparison study.
[2020-06-16 15:47] LABS: ALT/SGPT 135 U/L (12-78); AST/SGOT 77 U/L (15-37); Albumin 3.6 g/dL (3.4-5.0); Alkaline Phosphatase 88 U/L (45-117); BUN Blood Urea Nitrogen 13 mg/dL (7-18); Bicarbonate 28 mmol/L (21-32); Bilirubin Direct 0.1 mg/dL (0-0.2); Bilirubin Total 0.6 mg/dL (0.2-1.0); Glucose Level 235 mg/dL (74-106); NT PRO-BNP 27 pg/mL (<125); Potassium 3.9 mmol/L (3.5-5.1); Sodium Level 137 mmol/L (136-145); Troponin (Emerg Dept Use Only) < 0.02 ng/mL (0.0-0.045)
--- NOTE | 2020-06-16 16:24 | ER ---
Nurse's Notes [facility] Name: Chantal Stout Age: 50 yrs Sex: Female : 1970 Arrival Date: 06/16/2020 Time: 14:42 Bed 18 Private MD: Diagnosis: Pain in left upper arm Presentation: 06/16 14:43 Chief complaint: EMS states: left arm pain that started around noon while she was em sewing, denies chest pain, also reports nausea, denies fever. Coronavirus screen: Client denies travel out of the [place] in the last 14 days. Ebola Screen: Patient negative for fever greater than or equal to 101.5 degrees Fahrenheit, and additional compatible Ebola Virus Disease symptoms Patient denies exposure to infectious person. Patient denies travel to an Ebola-affected area in the 21 days before illness onset. No symptoms or risks identified at this time. Initial Sepsis Screen: Does the patient meet any 2 criteria? HR > 90 bpm. Does the patient have a suspected source of infection? No. Patient's initial sepsis screen is negative. Risk Assessment: Do you want to hurt yourself or someone else? Patient reports no desire to harm self or others. Onset of symptoms was June 16, 2020. 14:43 Method Of Arrival: EMS: [facility] em 14:43 Acuity: NOÉ 3 em Historical: - Allergies: 14:46 Bactrim; em 14:46 Cephalexin; em 14:46 Codeine; em 14:46 Iodine; em 14:46 Levaquin; em 14:46 SEAFOOD; em 14:46 Sulfa (Sulfonamide Antibiotics); em - PMHx: 14:46 ADD/ADHD; Asthma; Diabetes - NIDDM; Hypertension; Hypothyroidism; pituitary tumor- em surgically removed Jun 24; Anemia; - Immunization history:: Adult Immunizations up to date. - Social history:: Smoking status: Patient denies any tobacco usage or history of. Screenin:43 Abuse screen: Denies threats or abuse. Nutritional screening: No deficits noted. em Tuberculosis screening: No symptoms or risk factors identified. Fall Risk None identified. Assessment: 14:43 General: Appears in no apparent distress. comfortable, Behavior is calm, cooperative, em appropriate for age, Denies fever. Pain: Complains of pain in left upper arm Pain currently is 6 out of 10 on a pain scale. Neuro: Level of Consciousness is awake, alert, obeys commands, Oriented to person, place, time, situation, Appropriate for age. Cardiovascular: Denies chest pain, Capillary refill < 3 seconds Patient's skin is warm and dry. Respiratory: Airway is patent Respiratory effort is even, unlabored, Respiratory pattern is regular, symmetrical. GI: Abdomen is flat. Derm: Skin is intact, is healthy with good turgor, Skin is pink, warm \T\ dry. Musculoskeletal: Capillary refill < 3 seconds, Range of motion: intact in all extremities. 15:50 Reassessment: Patient appears in no apparent distress at this time. Patient and/or em family updated on plan of care and expected duration. Pain level reassessed. Patient is alert, oriented x 3, equal unlabored respirations, skin warm/dry/pink. 16:50 Reassessment: Patient appears in no apparent distress at this time. Patient and/or em family updated on plan of care and expected duration. Pain level reassessed. Patient is alert, oriented x 3, equal unlabored respirations, skin warm/dry/pink. pt refused pain medication and nausea medication. Vital Signs: 14:43 BP 159 / 91; Pulse 108; Resp 18; Temp 98.5; Pulse Ox 98% on R/A; Weight 131.54 kg; em Height 5 ft. 4 in. (162.56 cm); 15:40 BP 154 / 68; Pulse 102; Resp 18; Pulse Ox 97% on R/A; em 16:48 BP 159 / 91; Pulse 102; Resp 18; Pulse Ox 99% on R/A; em 14:43 Body Mass Index 49.78 (131.54 kg, 162.56 cm) em ED Course: 14:42 Patient arrived in ED. em 14:43 Patient has correct armband on for positive identification. Placed in gown. Bed in low em position. Call light in reach. Side rails up X2. night monitor on. Pulse ox on. NIBP on. 14:44 Marco Barnhart PA is PHCP. cp 14:44 Randolph Del Toro MD is Attending Physician. cp 14:45 Triage completed. em 14:46 Arm band placed on. em 14:47 Castro Canales, ALCIDES is Primary Nurse. em 15:10 Initial lab(s) drawn, by me, sent to lab. Inserted saline lock: 20 gauge in left upper em arm, using aseptic technique. Blood collected. 15:21 XRAY Chest (1 view) In Process Unspecified. EDMS 16:23 Anuj Parmar MD is Referral Physician. cp 16:47 No provider procedures requiring assistance completed. IV discontinued, intact, em bleeding controlled, No redness/swelling at site. Pressure dressing applied. Administered Medications: 15:05 Drug: Aspirin Chewable Tablet 324 mg Route: PO; em 15:56 Follow up: Response: No adverse reaction em 16:40 Not Given (Patient Refused): Zofran (Ondansetron) 4 mg IVP once; over 2 minutes em 16:40 Not Given (Patient Refused): TORadol - Ketorolac 15 mg IVP once em Outcome: 16:23 Discharge ordered by . cp 16:47 Discharged to home ambulatory, with family. em 16:47 Condition: good 16:47 Discharge instructions given to patient, family, Instructed on discharge instructions, follow up and referral plans. medication usage, Demonstrated understanding of instructions, follow-up care, medications, Prescriptions given X 2. 16:51 Patient left the ED. em Signatures: Dispatcher [employer] EDNV Castro Canales RN RN em Marco Barnhart PA PA cp
--- NOTE | 2020-06-16 16:25 | EDPHYS ---
Physician Documentation [facility] Name: Chantal Stout Age: 50 yrs Sex: Female : 1970 Arrival Date: 06/16/2020 Time: 14:42 Bed 18 Private MD: ED Physician Randolph Del Toro HPI: 06/16 14:47 This 50 yrs old Female presents to ER via EMS with complaints of Arm Pain. cp 14:47 The patient or guardian complains of pain, that is acute. The complaints affect the cp left upper arm. Onset: The symptoms/episode began/occurred today, about 1200 while sewing. 14:47 Treatment prior to arrival includes: no previous treatment. cp 14:47 Associated signs and symptoms: Pertinent positives: nausea, Pertinent negatives: cp numbness, chest pain. Severity of symptoms: in the emergency department the symptoms are unchanged, despite EMS interventions. Historical: - Allergies: 14:46 Bactrim; em 14:46 Cephalexin; em 14:46 Codeine; em 14:46 Iodine; em 14:46 Levaquin; em 14:46 SEAFOOD; em 14:46 Sulfa (Sulfonamide Antibiotics); em - PMHx: 14:46 ADD/ADHD; Asthma; Diabetes - NIDDM; Hypertension; Hypothyroidism; pituitary tumor- em surgically removed Jun 24; Anemia; - Immunization history:: Adult Immunizations up to date. - Social history:: Smoking status: Patient denies any tobacco usage or history of. ROS: 14:50 Constitutional: Negative for body aches, chills, fever, poor PO intake. cp 14:50 Eyes: Negative for injury, pain, redness, and discharge. cp 14:50 ENT: Negative for ear pain, sore throat, difficulty swallowing, difficulty handling secretions. 14:50 Cardiovascular: Negative for chest pain, palpitations. 14:50 Respiratory: Negative for cough, shortness of breath, wheezing. 14:50 Abdomen/GI: Positive for nausea, Negative for abdominal pain, diarrhea, constipation. 14:50 MS/extremity: Positive for pain, tenderness, of the left upper arm, Negative for injury or acute deformity, decreased range of motion, paresthesias. 14:50 Neuro: Negative for altered mental status, syncope, weakness. 14:50 All other systems are negative. Exam: 14:55 Constitutional: The patient appears in no acute distress, alert, awake, cp non-diaphoretic, non-toxic, well developed, well nourished, uncomfortable. 14:55 Head/Face: Normocephalic, atraumatic. cp 14:55 Eyes: Periorbital structures: appear normal, Conjunctiva: normal, no exudate, no injection, Sclera: no appreciated abnormality, Lids and lashes: appear normal, bilaterally. 14:55 ENT: External ear(s): are unremarkable, Nose: is normal, Mouth: Lips: moist, Oral mucosa: moist, Posterior pharynx: is normal, airway is patent, no erythema, no exudate. 14:55 Neck: ROM/movement: is normal, is supple, without pain, no range of motions limitations. 14:55 Chest/axilla: Inspection: normal, Palpation: is normal, no crepitus, no tenderness. 14:55 Cardiovascular: Rate: normal, Rhythm: regular, Edema: is not appreciated, JVD: is not appreciated. 14:55 Respiratory: the patient does not display signs of respiratory distress, Respirations: normal, no use of accessory muscles, no retractions, labored breathing, is not present, Breath sounds: are clear throughout, no decreased breath sounds, no stridor, no wheezing. 14:55 Abdomen/GI: Inspection: abdomen appears normal, Palpation: abdomen is soft and non-tender, in all quadrants. 14:55 Back: pain, is absent, ROM is normal. 14:55 Skin: no rash present. 14:55 Neuro: Orientation: to person, place \T\ time. Mentation: is normal, Motor: moves all fours, strength is normal, Sensation: no obvious gross deficits. 14:58 ECG was reviewed by the Attending Physician. cp Vital Signs: 14:43 BP 159 / 91; Pulse 108; Resp 18; Temp 98.5; Pulse Ox 98% on R/A; Weight 131.54 kg; em Height 5 ft. 4 in. (162.56 cm); 15:40 BP 154 / 68; Pulse 102; Resp 18; Pulse Ox 97% on R/A; em 16:48 BP 159 / 91; Pulse 102; Resp 18; Pulse Ox 99% on R/A; em 14:43 Body Mass Index 49.78 (131.54 kg, 162.56 cm) em MDM: 14:49 Patient medically screened. cp 15:00 Differential diagnosis: tendonitis, acute NH, strain. cp 16:12 ED course: According to [place] prescription monitor website patient given RX for #12 cp tramadol on 05/25/2020. 16:20 Data reviewed: vital signs, nurses notes, lab test result(s), EKG, radiologic studies, cp plain films, and as a result, I will discharge patient. 16:20 Test interpretation: by ED physician or midlevel provider: ECG, plain radiologic cp studies. 16:22 Counseling: I had a detailed discussion with the patient and/or guardian regarding: the cp historical points, exam findings, and any diagnostic results supporting the discharge/admit diagnosis, lab results, radiology results, the need for outpatient follow up, a orthopedic surgeon, to return to the emergency department if symptoms worsen or persist or if there are any questions or concerns that arise at home. 16:22 Response to treatment: the patient's symptoms have markedly improved after treatment, cp and as a result, I will discharge patient. 06/16 14:45 Order name: Basic Metabolic Panel; Complete Time: 15:55 06/16 15:55 Interpretation: Normal except: GLUC 235; GFR 78. 06/16 14:45 Order name: CBC with Diff; Complete Time: 15:22 06/16 15:23 Interpretation: Normal except: WBC 11.9; RBC 5.74; HGB 15.1; HCT 45.6; MCV 79.4; MCH cp 26.3; TANIA% 73.9; NEUT A 8.8. 06/16 14:45 Order name: LFT's; Complete Time: 15:55 06/16 15:56 Interpretation: Normal except: AST 77; ALT 135; GLOB 4.4; A/G 0.8. 06/16 14:45 Order name: Magnesium; Complete Time: 15:55 06/16 14:45 Order name: NT PRO-BNP; Complete Time: 15:55 06/16 14:45 Order name: PT-INR; Complete Time: 15:22 06/16 14:45 Order name: Troponin (emerg Dept Use Only); Complete Time: 15:55 06/16 14:45 Order name: XRAY Chest (1 view); Complete Time: 15:55 06/16 14:45 Order name: EKG; Complete Time: 14:46 cp 06/16 14:45 Order name: Cardiac monitoring; Complete Time: 14:47 06/16 15:03 Order name: Urine Dipstick--Ancillary (enter results) 06/16 14:45 Order name: EKG - Nurse/Tech; Complete Time: 15:14 cp 06/16 14:45 Order name: IV Saline Lock; Complete Time: 15:14 06/16 14:45 Order name: Labs collected and sent; Complete Time: 15:13 06/16 14:45 Order name: O2 Per Protocol; Complete Time: 14:47 cp 06/16 14:45 Order name: O2 Sat Monitoring; Complete Time: 14:47 06/16 14:45 Order name: Urine Dipstick-Ancillary (obtain specimen); Complete Time: 14:58 cp 06/16 14:45 Order name: Urine Test (obtain specimen); Complete Time: 14:58 cp 06/16 16:23 Order name: Sling; Complete Time: 16:40 cp EC:58 Rate is 102 beats/min. Rhythm is regular. DE interval is normal. QRS interval is cp normal. QT interval is normal. T waves are Inverted in lead aVR. Interpreted by me. Reviewed by me. Administered Medications: 15:05 Drug: Aspirin Chewable Tablet 324 mg Route: PO; em 15:56 Follow up: Response: No adverse reaction em 16:40 Not Given (Patient Refused): Zofran (Ondansetron) 4 mg IVP once; over 2 minutes em 16:40 Not Given (Patient Refused): TORadol - Ketorolac 15 mg IVP once em Disposition: 06/16/20 16:23 Discharged to Home. Impression: Pain in left upper arm. - Condition is Stable. - Discharge Instructions: Shoulder Pain, Shoulder Range of Motion Exercises. - Prescriptions for Diclofenac Sodium 75 mg Oral Tablet, Delayed Release (E.C.) - take 1 tablet by ORAL route 2 times per day; 20 tablet. Tramadol 50 mg Oral Tablet - take 1 tablet by ORAL route every 8 hours as needed; 12 tablet. - Medication Reconciliation Form, Thank You Letter, Antibiotic Education, Prescription Opioid Use form. - Follow up: Anuj Parmar MD; When: 2 - 3 days; Reason: Recheck today's complaints. - Problem is new. - Symptoms have improved. Addendum: 06/18/2020 11:04 Co-signature as Attending Physician, Randolph Del Toro MD. m a2 Signatures: Dispatcher [employer] Castro Gudino, RN RN em Marco Barnhart PA PA cp Alzahri, Mohammad, MD MD ma2 Corrections: (The following items were deleted from the chart) 06/16 16:51 16:23 06/16/2020 16:23 Discharged to Home. Impression: Pain in left upper arm. em Condition is Stable. Forms are Medication Reconciliation Form, Thank You Letter, Antibiotic Education, Prescription Opioid Use. Follow up: Anuj Parmar; When: 2 - 3 days; Reason: Recheck today's complaints. Problem is new. Symptoms have improved. cp
[2020-06-16 16:35] LABS: Urine Blood NEGATIVE (NEG); Urine Glucose TRACE (NEG); Urine Protein NEGATIVE (NEG); Urine Specific Gravity <1.005 (1.005-1.030)
[2020-06-16 17:42] VITALS: TEMP 98.5
[2020-06-16 18:22] VITALS: BP 159/91; O2SAT 99
== END 2020-06-16 16:51 | disposition home or self-care (01) ==
LOC: ER 14:40
DX: M79.622 Pain in left upper arm (principal); I10 Essential (primary) hypertension; Z88.1 Allergy status to other antibiotic agents; Z88.2 Allergy status to sulfonamides; Z88.5 Allergy status to narcotic agent; Z88.8 Allergy status to other drugs, medicaments and biological substances; Z91.013 Allergy to seafood
CPT/HCPCS: 36415; 71045; 80048; 80076; 81003; 83735; 83880; 84484; 85025; 85610; 93005; 99284

== ENCOUNTER 2021-02-23 17:48 | Emergency (ER) | payer SELFPAY ==
--- OUTSIDE RECORDS SUMMARY | 2021-02-23 17:53 | XMS REPORT | Continuity of Care Document ---
:1970 Author Organization [facility] t Address [address] [place] [address] Care Team Providers Name Role Phone Pcp Primary Care Physician Unavailable Edmond Jenkins DO Attending Clinician Gaurav PIÑA Attending Clinician ROBERT GEORGE Attending Clinician Unavailable Clare DOBSON [...] Swelling 2017-[address] [facility] hox[facility] ty to [facility] adverse 00:00: Medical oprim [...] St Reaction swelling [facility] clindamy Adverse Active swelling [facility] vancomyc Adverse Active face [facility] Reaction swelling, [facility] Jardianc Adverse Active severe [facility] e Reaction anxiety [facility] Iodine Adverse Active increases BS [facility] Reaction to [facility] - 400's,skin [facility] blisters l [facility] Azithrom Adverse Active decreased [facility] ycin Reaction B/P,palpitat [place] [facility] - ions [facility] Lisinopr Adverse Active cough [facility] Reaction [facility] Fenofibr Adverse Active face [facility] ate Reaction swelling [facility] Bactrim Adverse Active face [facility] Reaction swelling [facility] Levaquin Adverse Active hallucinatio C [facility] St Reaction ns [facility] Family History Family Member Diagnosis Comments Start Date Stop Date Source Natural father Hypertension [facility] Natural mother Diabetes [facility] Natural mother Hypertension [facility] Other Diabetes [facility] Social History Social Habit Start Date Stop Date Quantity Comments Source History SDOH [facility] St[facility] Dr[facility] History SDOH [facility] Binge Medical Alisha ter Sex Assigned At [facility] Tobacco use and 2018-06-24 2018-06-[address] [facility] - exposure 00:00:00 00:00:00 Medical Center Alcohol intake 2018-06-24 2018-06-24 [facility] alcohol [facility] Center (finding) History SDOH 2018-06-18 2018-06-[address] [facility] Frequency 00:00:00 00:00:00 [facility] Center Smoking Status Start Date Stop Date Source Former smoker 2018-06-24 00:00:00 2018-06-24 00:00:[address] [facility] Medications Ordered Filled Start [...] tablet [facility] Sodium ne Sodium Ariton in the [place] k[place] - morning on Memoria an empty l stomach Outpati ent Clinics Procedures This patient has no known procedures. Plan of Care Planned Activity Planned Date Details Comments Source Future Scheduled 2020-03-[address] [facility] 00:00:00 (#1) [code = [facility] INFLUENZA VACCINE (#1)] Future Scheduled [address] [facility] 00:00:00 (procedure) [code = [facility] 40662274] Future Scheduled [address] [facility] Test 00:00:00 malignant neoplasm Medical C enter of cervix (procedure) [code = 226251451] Future Scheduled [address] [facility] - Test 00:00:00 malignant neoplasm Medical C enter of breast (procedure) [code = 366469003] Future Scheduled [address] [facility] Test 00:00:00 malignant neoplasm Medical C enter of colon (procedure) [code = 826991734] Encounters Start End Encounter Admission Attending Care Care Encounter Source Date/Time Date/Time Type Type Clinicians Facility Department ID 2021-02-04 2021-02-[address] [facility] [id number] [facility] 2021-01-20 2021-01-[address] [facility] [id number] [facility] 2020-11-30 2020-11-[address] [facility] [id number] [facility] 2020-11-12 2020-11-[address] [facility] [id number] [facility] 2020-10-25 2020-10-[address] [facility] [id number] [facility] 2020-10-25 2020-10-[address] [facility] [id number] [facility] 2020-10-05 2020-10-05 Patient Gregory NVJONA [id number] 00:00:00 00:00:00 Outreach Gabriel PRIMARY [id number] Edmond CARE [id number] PAVILLION [id number] 2020-09-30 2020-09-30 [facility] [id number] [facility] 2020-08-09 2020-08-09 [facility] [id number] [facility] 2020-08-09 2020-08-09 [facility] [id number] [facility] 2020-08-03 2020-08-03 Office [facility] [id number] 12:25:30 14:25:15 Visit Ronn PRIMARY [id number] CARE [id number] PAVILLION [id number] 2020-07-26 2020-07-26 [facility] [id number] [facility] 2020-07-19 2020-07-19 [facility] [id number] [facility] 2020-07-08 2020-07-08 [facility] [id number] [facility] 2020-06-23 2020-06-23 [facility] [id number] [facility] 2020-06-16 2020-06-16 Outpatient [facility] [id number] [facility] 2020-04-29 2020-04-29 Outpatient [facility] [id number] [facility] 2020-04-19 2020-04-19 Outpatient [facility] [id number] [facility] [facility] [facility] 2020-03-22 2020-03-22 [facility] [id number] 11[facility]50:00 11:50:00 [facility] l Medicine Outpati ent Clinics 2020-02-18 2020-02-18 [facility] [id number] 09:26:00 09:26:00 [facility] Medicine l Medicine Outpati ent Clinics 2020-02-05 2020-02-05 [facility] [id number] 08[facility]00:00 08:00:00 [facility] Medicine Outpati ent Clinics 2020-02-02 2020-02-02 [facility] [id number] 18:03:00 18:03:00 [facility] Medicine Outpati ent Clinics 2019-11-19 2019-11-19 [facility] [id number] 09:25:00 09:25:00 [facility] Medicine Outpati ent Clinics 2019-11-10 2019-11-10 [facility] [id number] 10:08:00 10:08:00 [facility] Medicine Outpati ent Clinics 2019-11-06 2019-11-06 [facility] [id number] 08:00:00 08:00:00 [facility] Medicine Medicine Outpati ent Clinics 2019-10-30 2019-10-30 [facility] [id number] 15:58:00 15:58:00 [facility] Medicine Outpati ent Clinics 2019-10-27 2019-10-27 [facility] [id number] 11:16:00 11:16:00 [facility] Medicine l Medicine Outpati ent Clinics 2019-08-12 2019-08-12 Outpatient [facility] [id number] [facility] [facility] [facility] 2019-08-07 2019-08-07 [facility] [id number] 08:40:00 08:40:00 [facility] Medicine Outpati ent Clinics 2019-05-01 2019-05-01 [facility] [id number] 09[facility]40:00 09:40:00 [facility] Medicine Outpati ent Clinics 2019-01-30 2019-01-30 [facility] [id number] 08:40:00 08:40:00 [facility] Medicine Outpati ent Clinics 2018-10-27 2018-10-27 [facility] [id number] 06:29:00 06:29:00 [facility] Medicine Outpati ent Clinics 2018-10-22 2018-10-22 [facility] [id number] 13:00:00 13:00:00 [facility] Medicine Outpati ent Clinics 2018-07-30 2018-07-30 [facility] [id number] 13:30:00 13:30:00 [facility] Medicine Outpati ent Clinics 2018-07-25 2018-07-25 [facility] [id number] 19:48:00 19:48:00 [facility] Medicine Medicine Outpati ent Clinics 2018-03-12 2018-03-12 [facility] [id number] 13:41:00 13:41:00 [facility] Medicine Outpati ent Clinics 2018-02-27 2018-02-27 [facility] [id number] 14:46:00 14:46:00 [facility] Medicine Outpati ent Clinics 2018-02-20 2018-02-20 Outpatient Helen Bailon [id number] 08:30:00 08:30:00 [facility] Outpati ent Clinics 2018-02-12 2018-02-12 Outpatient Helen Bailon [id number] 10:45:00 10:45:00 [facility] Outpati ent [facility] 2018-01-21 2018-01-21 Outpatient Helen Bailon [id number] 09:00:00 09:00:00 [facility] ent Clinics Results Test Description Test Time Test Comments Results Result [facility] e Comments TISSUE EXAM 2018-06-28 Surgical Pathology Report 08:38:00 Case: [id number] Authorizing Provider: Alex Ruano MD Collected: 06/24/2018 0802 Ordering Location: [address] Received: 06/24/2018 0809 Service Pathologist: Chon Andino MD Specimens: A) - Tumor, pituitary tumor B) - Tumor, pituitary tumor A.PITUITARY GLAND, TRANSSPHENOIDAL 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 PITUITARY GLAND, TRANSSPHENOIDAL HYPOPHYSECTOMY:NULL CELL ADENOMAENTRAPPED ADENOHYPOPHYSIS Signing Pathologist Direct Phone Line: [phone] signed by Chon Andino MD on 06/28/2018 at 8:38 AMImmunoperoxidase stains performed on the second specimen show that the tumor has no staining for growth hormone, LH, FSH, TSH, prolactin, or ACTH. 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 The MIB-1 proliferation index is less than 1%. 99440 x 2; 45670; 53905; 32041 x 6; 68965Gbiymlbft adenoma A. Pituitary tumor; B. Pituitary tumorA. [...] stains. Immunohistochemistry technical testing was performed at [facility], Pathology Laboratory where it was developed [...] (test 141 mg/dL 70-110 H TESTED AT [facility] [address] [facility] 7703 0 POCT-GLUCOSE [id number] 12:06:00 Test Item Value Reference Range Interpretation Comments POC-GLUCOSE METER 217 mg/dL 70-110 H TESTED AT [facility] [address] [facility] (test code = [place] [facility] 1538) [address] BASIC METABOLIC [id number] 07:18:00 Test Item Value Reference Range Interpretation [...] PATIEN TS. CBC W/PLT COUNT & AUTO [id number] 06:49:00 Test Item Value Reference Range Interpretation [...] (BEAKER) (test code = 2801) BASIC METABOLIC [id number] 23:52:00 Test Item Value Reference Range Interpretation [...] APPLICABLE FOR DIALYSIS PATIEN TS. SODIUM, RANDOM [id number] 23:49:00 Test Item Value Reference Range Interpretation Comments SODIUM URINE (BEAKER) (test code = < meq/L 243) Reference Range: No NormalsCBC W/PLT COUNT & AUTO [id number] 23:35:00 Test Item Value Reference Range Interpretation [...] (test code = 2801) CT, BRAIN, WITHOUT [id number] 22:57:00FINAL REPORT CT Head without contrast CLINICAL [...] Verified Date/Time: 06/26/2018 22:57:28 Reading Location: [address] TransitionalReading Room -GLUCOSE [id number] 21:07:00 Test Item Value Reference Range Interpretation Comments POC-GLUCOSE METER 211 mg/dL 70-110 H TESTED AT [facility] 67[address] ([facility]) (test code = [facility] 1538) 345[address] BASIC METABOLIC [id number] 14:29:00 Test Item Value Reference Range Interpretation [...] PATIEN TS. CBC W/PLT COUNT & AUTO [id number] 14:25:00 Test Item Value Reference Range Interpretation [...] PERCENT (AKER) (test code = 2801) POCT-GLUCOSE [id number] 13:38:00 Test Item Value Reference Range Interpretation Comments POC-GLUCOSE METER 219 mg/dL 70-110 H TESTED AT [place] [address] ([facility]) (test code = [facility] Jadiel [facility] 1538) [address] POCT-GLUCOSE [id number] 12:34:00 Test Item Value Reference Range Interpretation Comments POC-GLUCOSE METER 193 mg/dL 70-110 H TESTED AT [place] [address] ([facility]) (test code = [facility] Jad[place] 1538) [address] POCT-GLUCOSE [id number] 16:17:00 Test Item Value Reference Range Interpretation Comments POC-GLUCOSE METER 244 mg/dL 70-110 H TESTED AT [place] [address] ([facility]) (test code = [facility] [place] 1538) [address] POCT-GLUCOSE [id number] 12:08:00 Test Item Value Reference Range Interpretation Comments POC-GLUCOSE METER 229 mg/dL 70-110 H TESTED AT [place] [address] ([facility]) (test code = [facility] [employer] [place] 1538) [address] POCT-GLUCOSE [id number] 08:27:00 Test Item Value Reference Range Interpretation Comments POC-GLUCOSE METER 280 mg/dL 70-110 H TESTED AT [place] [address] ([facility]) (test code = [facility] [employer] [place] 1538) [address] OSMOLALITY, [id number] 05:16:00 Test Item Value Reference Range Interpretation Comments OSMOLALITY URINE ([facility]) (test 340 mOsm/kg 40-1,400 code = 614) SPECIFIC GRAVITY, [id number] 04:53:00 Test Item Value Reference Range Interpretation Comments SPECIFIC GRAVITY UA (BEAKER) (test code 1.010 1.001-1.035 = 468) POCT-GLUCOSE [id number] 22:29:00 Test Item Value Reference Range Interpretation Comments POC-GLUCOSE METER 257 mg/dL 70-110 H TESTED AT [facility] 67 [facility] (test code = [facility] [place] 1538) [address] BASIC METABOLIC [id number] 17:49:00 Test Item Value Reference Range Interpretation [...] NOT APPLICABLE FOR DIALYSIS PATIEN TS. POCT-GLUCOSE [id number] 17:02:00 Test Item Value Reference Range Interpretation Comments POC-GLUCOSE METER 235 mg/dL 70-110 H TESTED AT [facility] 6720 (BEAKER) (test code = [facility] [place] 1538) [address] POCT-GLUCOSE [id number] 12:06:00 Test Item Value Reference Range Interpretation Comments POC-GLUCOSE METER 249 mg/dL 70-110 H TESTED AT [facility] 6720 (BEAKER) (test code = [facility] [place] 1538) [address] POCT-GLUCOSE [id number] 09:40:00 Test Item Value Reference Range Interpretation Comments POC-GLUCOSE METER 278 mg/dL 70-110 H TESTED AT [facility] 67 (BEAKER) (test code = [place] 1538) [address] BASIC METABOLIC [id number] 06:14:00 Test Item Value Reference Range Interpretation [...] S NOT APPLICABLE FOR DIALYSIS PATIEN TS. [id number] 06:03:00 Test Item Value Reference Range Interpretation [...] for patients with mechanical heart valves. SCREEN, [id number] 05:59:00 Test Item Value Reference Range Interpretation Comments TEST URINE (BEAKER) (test Negative code = 583) POCT-GLUCOSE [id number] 05:46:00 Test Item Value Reference Range Interpretation Comments POC-GLUCOSE METER 140 mg/dL 70-110 H TESTED AT [facility] 6720 (BEAKER) (test code = [place] 1538) [address] CBC W/PLT COUNT & AUTO [id number] 05:46:00 Test Item Value Reference Range Interpretation [...] PERCENT (BEAKER) (test code = 2801) POCT-GLUCOSE [id number] 21:27:00 Test Item Value Reference Range Interpretation Comments POC-GLUCOSE METER 223 mg/dL 70-110 H TESTED AT [facility] 6720 (BEAKER) (test code = [facility] 1538) [address] POCT-GLUCOSE [id number] 17:26:00 Test Item Value Reference Range Interpretation Comments POC-GLUCOSE METER 223 mg/dL 70-110 H TESTED AT [facility] 6720 (BEAKER) (test code = [facility] 1538) [address] BASIC METABOLIC [id number] 16:43:00 Test Item Value Reference Range Interpretation [...] NOT APPLICABLE FOR DIALYSIS PATIEN TS. POCT-GLUCOSE [id number] 09:06:00 Test Item Value Reference Range Interpretation Comments POC-GLUCOSE METER 265 mg/dL 70-110 H TESTED AT [facility] 6720 (BEAKER) (test code = [facility] 1538) [address] POCT-GLUCOSE [id number] 00:22:00 Test Item Value Reference Range Interpretation Comments POC-GLUCOSE METER 210 mg/dL 70-110 H TESTED AT [place] [address] ([facility]) (test code = [place] 1538) [address] POCT-GLUCOSE [id number] 20:27:00 Test Item Value Reference Range Interpretation Comments POC-GLUCOSE METER 235 mg/dL 70-110 H TESTED AT [place] [address] ([facility]) (test code = [place] 1538) [address] POCT-GLUCOSE [id number] 17:10:00 Test Item Value Reference Range Interpretation Comments POC-GLUCOSE METER 264 mg/dL 70-110 H TESTED AT [place] [address] ([facility]) (test code = [place] 1538) [address] POCT-GLUCOSE [id number] 16:00:00 Test Item Value Reference Range Interpretation Comments POC-GLUCOSE METER 242 mg/dL 70-110 H TESTED AT [place] [address] ([facility]) (test code = [place] 1538) [address] POCT-GLUCOSE [id number] 08:54:00 Test Item Value Reference Range Interpretation Comments POC-GLUCOSE METER 224 mg/dL 70-110 H TESTED AT [place] [address] ([facility]) (test code = [place] 1538) [address] POCT-GLUCOSE [id number] 21:30:00 Test Item Value Reference Range Interpretation Comments POC-GLUCOSE METER 254 mg/dL 70-110 H TESTED AT [place] [address] ([facility]) (test code = [place] 1538) [address] POCT-GLUCOSE [id number] 17:23:00 Test Item Value Reference Range Interpretation Comments POC-GLUCOSE METER 193 mg/dL 70-110 H TESTED AT [place] [address] ([facility]) (test code = [place] 1538) [address] POCT-GLUCOSE [id number] 11:53:00 Test Item Value Reference Range Interpretation Comments POC-GLUCOSE METER 179 mg/dL 70-110 H TESTED AT [place] [address] ([facility]) (test code = [place] 1538) [address] [id number] 10:15:00 Test Item Value Reference Range Interpretation Comments CORTISOL, TOTAL ([facility]) (test code 4.7 ug/dL 3.7-19.4 = 2755) POCT-GLUCOSE [id number] 08:07:00 Test Item Value Reference Range Interpretation Comments POC-GLUCOSE METER 184 mg/dL 70-110 H TESTED AT [place] [address] ([facility]) (test code = [place] 1538) [address] CT, BRAIN, WITHOUT [id number] 22:07:00FINAL REPORT CT Head without contrast CLINICAL [...] Verified Date/Time: 06/20/2018 22:07:25 Reading Location: [address] Transitional Reading Room POCT-GLUCOSE [id number] 21:00:00 Test Item Value Reference Range Interpretation Comments POC-GLUCOSE METER 227 mg/dL 70-110 H TESTED AT [facility] 67 ([facility]) (test code = [place] [facility] 1538) [address] POCT-GLUCOSE [id number] 16:57:00 Test Item Value Reference Range Interpretation Comments POC-GLUCOSE METER 216 mg/dL 70-110 H TESTED AT [place] [address] ([facility]) (test code = [place] [facility] 1538) [address] POCT-GLUCOSE [id number] 13:11:00 Test Item Value Reference Range Interpretation Comments POC-GLUCOSE METER 198 mg/dL 70-110 H TESTED AT [facility] 6720 ([facility] (test code = [place] [facility] 1538) [address] POCT-GLUCOSE [id number] 07:47:00 Test Item Value Reference Range Interpretation Comments POC-GLUCOSE METER 213 mg/dL 70-110 H TESTED AT [facility] 6720 ([facility] (test code = [place] [facility] 1538) [address] BASIC METABOLIC [id number] 06:57:00 Test Item Value Reference Range Interpretation [...] NOT APPLICABLE FOR DIALYSIS PATIEN TS. POCT-GLUCOSE [id number] 05:24:00 Test Item Value Reference Range Interpretation Comments POC-GLUCOSE METER 192 mg/dL 70-110 H TESTED AT [facility] 67[address] ([facility] (test code = [facility] Jadiel [facility] 1538) [address] CT, CTANGIO [id number] 01:03:00FINAL REPORT CLINICAL HISTORY: Stroke TECHNIQUE: Initially, [...] MDReport Verified Date/Time: 06/20/2018 01:03:44 Reading Location: [address] Transitional Reading Room [facility], CAROTID, ANGIO 2018-06-20 01:03:00FINAL REPORT CLINICAL HISTORY: [...] Verified Date/Time: 06/20/2018 01:03:44 Reading Location: [address] Reading Room POCT-GLUCOSE METER 2018-06-20 00:40:00 Test Item Value Reference Range Interpretation Comments POC-GLUCOSE METER 283 mg/dL 70-110 H TESTED AT [place] [address] ([facility]) (test code = [place] [facility] 1538) [address] POCT-GLUCOSE [id number] 21:21:00 Test Item Value Reference Range Interpretation Comments POC-GLUCOSE METER 343 mg/dL 70-110 H TESTED AT [place] [address] ([facility]) ([facility] = [facility] [place] [facility] 1538) [address] SCREEN, [id number] 18:52:00 Test Item Value Reference Range Interpretation Comments TEST URINE (BEAKER) (test Negative code = 583) POCT-GLUCOSE [id number] 17:17:00 Test Item Value Reference Range Interpretation Comments POC-GLUCOSE METER 287 mg/dL 70-110 H TESTED AT [place] [address] ([facility]) (test code = [place] [facility] 1538) [address] [id number] 15:59:00 Test Item Value Reference Range Interpretation Comments RPR SCREEN (AKER) (test code = Nonreactive Nonreactive 420) POCT-GLUCOSE [id number] 15:07:00 Test Item Value Reference Range Interpretation Comments POC-GLUCOSE METER 323 mg/dL 70-110 H TESTED AT [place] [address] ([facility]) (test code = [facility] Jadiel [facility] 1538) [address] T4, [id number] 13:11:00 Test Item Value Reference Range Interpretation Comments FREE T4 (BEAKER) (test code = 655) 0.89 ng/dL 0.70-1.48 HIV-1 ANTIGEN WITH HIV-1/2 [id number] 13:11:00 Test Item Value Reference Range Interpretation Comments HIV-1 ANTIGEN WITH HIV 1\\T\\2 Nonreactive Nonreactive ANTIBODY (2) (BEAKER) (test code = 2586) RAPID DRUG SCREEN, [id number] 12:47:00 Test Item Value Reference Range Interpretation [...] situations. Chain of custody not maintained. Some ujrn-tsr-hmiohsd medications, as well as adulterants, may cause inaccurate results. Clinical correlation should be applied. A more comprehensive drug screen or confirmation of a detected drug may be performed upon request. POCT-GLUCOSE [id number] 12:37:00 Test Item Value Reference Range Interpretation Comments POC-GLUCOSE METER 292 mg/dL 70-110 H TESTED AT [facility] 6720 (BEAKER) (test code = [place] [facility] 1538) [address] HEMOGLOBIN [id number] 12:35:00 Test Item Value Reference Range Interpretation Comments HEMOGLOBIN A1C (BEAKER) (test code = 7.9 % 4.3-6.1 H 368) OSMOLALITY, [id number] 12:34:00 Test Item Value Reference Range Interpretation Comments OSMOLALITY, SERUM (BEAKER) (test 310 mOsm/kg 275-295 H code = 615) C-REACTIVE [id number] 12:28:00 Test Item Value Reference Range Interpretation Comments C-REACTIVE PROTEIN (BEAKER) (test 0.81 mg/dL 0.00-0.50 H code = 676) OSMOLALITY, [id number] 12:22:00 Test Item Value Reference Range Interpretation Comments OSMOLALITY URINE (BEAKER) (test 247 mOsm/kg 40-1,400 code = 614) CBC W/PLT COUNT & AUTO [id number] 12:14:00 Test Item Value Reference Range Interpretation [...] PERCENT (BEAKER) (test code = 2801) POCT-GLUCOSE [id number] 10:30:00 Test Item Value Reference Range Interpretation Comments POC-GLUCOSE METER 341 mg/dL 70-110 H TESTED AT [facility] [address] (BR[place]) (test code = [place]38) [id number] 06:17:00 Test Item Value Reference Range Interpretation Comments PROLACTIN (BROOK) (test code = 23.34 ng/mL 5.18-26.53 758) POCT-GLUCOSE [id number] 05:55:00 Test Item Value Reference Range Interpretation Comments POC-GLUCOSE METER 285 mg/dL 70-110 H TESTED AT [facility] [address] ([place]) (test code = [place] 1538) [id number] MR, BRAIN, [id number] 02:25:00Pituitary protocolCr 0.6FINAL REPORT MRI brain with and without contrast Comparison: None. 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 Signed: Narcisa Mcdonald [facility] Verified Date/Time: 06/19/2018 02:25:15 Reading Location: [facility] B1 C013Y CT Body Reading Room TSH/FREE T4 IF [id number] 00:26:00 Test Item Value Reference Range Interpretation Comments THYROID STIMULATING HORMONE 0.41 uIU/mL 0.35-4.94 (BEAKER) (test code = 772) BASIC METABOLIC [id number] 00:07:00 Test Item Value Reference Range Interpretation [...] DIALYSIS PATIEN TS. URINALYSIS W/ REFLEX URINE [id number] 23:13:00 Test Item Value Reference Range Interpretation [...]
[2021-02-23] MEDS ORDERED: NA CHLORIDE 0.9% 1,000 ML ONE (21:10)
[2021-02-23] MEDS ORDERED: ONDANSETRON 4 MG/2 ML VIAL ONE (21:10)
--- NOTE | 2021-02-23 21:42 | ER ---
Nurse's Notes [facility] Name: Chantal Stout Age: 50 yrs Sex: Female : 1970 Arrival Date: 02/23/2021 Time: 17:49 Bed 14 Private MD: Diagnosis: Coronavirus infection, unspecified;Nausea;Diarrhea, unspecified Presentation: 02/23 17:54 Chief complaint: EMS states: pt had a positive COVID exposure , has had fever , nausea iw body aches , temp up to 103 at home, took ibuprofen at 4:17 pm, down to 102, IVF given by EMs. 17:55 Coronavirus screen: Client presents with at least one sign or symptom that may indicate iw coronavirus-19. Standard/surgical mask placed on the client. Provider contacted for isolation considerations. Ebola Screen: Patient negative for fever greater than or equal to 101.5 degrees Fahrenheit, and additional compatible Ebola Virus Disease symptoms Patient denies exposure to infectious person. Patient denies travel to an Ebola-affected area in the 21 days before illness onset. No symptoms or risks identified at this time. Risk Assessment: Do you want to hurt yourself or someone else? Patient reports no desire to harm self or others. Onset of symptoms was February 23, 2021. 17:55 Method Of Arrival: EMS: [facility] iw 17:55 Acuity: NOÉ 3 iw 17:57 Care prior to arrival: Medication(s) given: Normal saline infusion, IV initiated. 20 iw GA, in the right hand. Historical: - Allergies: 17:56 Bactrim; iw 17:56 Cephalexin; iw 17:56 Codeine; iw 17:56 Iodine; iw 17:56 Levaquin; iw 17:56 SEAFOOD; iw 17:56 Sulfa (Sulfonamide Antibiotics); iw - PMHx: 17:56 ADD/ADHD; Anemia; Asthma; Diabetes - NIDDM; Hypertension; Hypothyroidism; pituitary iw tumor- surgically removed Jun 24; Screenin:01 Abuse screen: Denies threats or abuse. Nutritional screening: No deficits noted. vg1 Tuberculosis screening: No symptoms or risk factors identified. Fall Risk No fall in past 12 months (0 pts). No secondary diagnosis (0 pts). IV access (20 points). Ambulatory Aid- None/Bed Rest/Nurse Assist (0 pts). Gait- Normal/Bed Rest/Wheelchair (0 pts) Mental Status- Oriented to own ability (0 pts). Total Byrd Fall Scale indicates No Risk (0-24 pts). Assessment: 20:59 General: Appears in no apparent distress. uncomfortable, Behavior is calm, cooperative. vg1 Pain: Denies pain. Neuro: Level of Consciousness is awake, alert, obeys commands, Oriented to person, place, time, situation. Cardiovascular: Patient's skin is warm and dry. Respiratory: Reports cough that is productive, Airway is patent Respiratory effort is even, unlabored, Denies shortness of breath. GI: Abdomen is round obese, Reports diarrhea, nausea, vomiting. : No signs and/or symptoms were reported regarding the genitourinary system. EENT: No signs and/or symptoms were reported regarding the EENT system. Derm: Skin is intact, is healthy with good turgor. Musculoskeletal: Circulation, motion, and sensation intact. 22:23 Reassessment: Patient appears in no apparent distress at this time. No changes from ea previously documented assessment. Patient and/or family updated on plan of care and expected duration. Pain level reassessed. Patient is alert, oriented x 3, equal unlabored respirations, skin warm/dry/pink. Vital Signs: 18:18 BP 141 / 77; Pulse 110; Resp 18; Temp 101.0; Pulse Ox 96% ; Weight 129.73 kg; Height 5 ll1 ft. 4 in. (162.56 cm); Pain 6/10; 20:43 Temp 98.5; vg1 21:00 BP 115 / 66; Pulse 90; Resp 20; Pulse Ox 95% ; vg1 22:23 BP 112 / 61; Pulse 88; Resp 18; Pulse Ox 94% ; ea 18:18 Body Mass Index 49.09 (129.73 kg, 162.56 cm) ll1 ED Course: 17:49 Patient arrived in ED. ds1 17:56 Triage completed. iw 17:57 Arm band placed on. iw 20:33 Vijaya Bob [facility]-C [facility]. kb 20:33 Jl Gonzales MD is Attending Physician. kb 20:43 Ghada Harvey, RN is Primary Nurse. vg1 21:01 Patient has correct armband on for positive identification. Bed in low position. Call vg1 light in reach. Side rails up X 1. 21:01 No provider procedures requiring assistance completed. Maintain EMS IV. Dressing vg1 intact. Good blood return noted. Site clean \T\ dry. Gauge \T\ site: 20 g Right hand. 22:24 IV discontinued, intact, bleeding controlled, No redness/swelling at site. Pressure ea dressing applied. Administered Medications: 20:56 Drug: NS 0.9% 1000 ml Route: IV; Rate: 1 bolus; Site: right hand; vg1 22:26 Follow up: IV Status: Completed infusion; IV Intake: 1000ml vg1 20:59 Drug: Zofran (Ondansetron) 4 mg Route: IVP; Site: right hand; vg1 22:26 Follow up: Response: No adverse reaction vg1 Intake: 22:26 IV: 1000ml; Total: 1000ml. vg1 Outcome: 21:42 Discharge ordered by . vianney 22:24 Discharged to home via wheelchair. ea 22:24 Condition: stable 22:24 Discharge instructions given to patient, Instructed on discharge instructions, follow up and referral plans. medication usage, Demonstrated understanding of instructions, follow-up care, medications, Prescriptions given X 1. 22:24 Patient left the ED. ea Signatures: Vijaya Bob, ELECTRIC SIGN WIRER-C ELECTRIC SIGN WIRER-Mikayla Connolly ds1 Ingrid Bernabe, RN Gabbie Jenkins RN RN ea Garcia, Victoria RN RN vg1 Pretty Rogers, ALCIDES RN ll1 Corrections: (The following items were deleted from the chart) 17:56 17:54 Chief complaint: EMS states: pt had a positive COVID exposure helen
--- NOTE | 2021-02-23 21:43 | EDPHYS ---
Physician Documentation [facility] Name: Chantal Stout Age: 50 yrs Sex: Female : 1970 Arrival Date: 02/23/2021 Time: 17:49 Bed 14 Private MD: ED Physician Jl Gonzales HPI: 02/23 21:40 This 50 yrs old Female presents to ER via EMS with complaints of Nausea, kb Fever - COVID exposure. 21:40 The patient presents to the emergency department with nausea, diarrhea. Onset: The kb symptoms/episode began/occurred 1 week(s) ago. Possible causes: sick contacts. The symptoms are aggravated by nothing. The symptoms are alleviated by nothing. Associated signs and symptoms: Pertinent positives: diarrhea, fever, nausea, Pertinent negatives: abdominal pain, vomiting. Severity of symptoms: At their worst the symptoms were moderate in the emergency department the symptoms are unchanged. The patient has not experienced similar symptoms in the past. The patient has not recently seen a physician. Patient reports fever nausea and diarrhea that started a week ago. Reports exposure to Covid. Denies shortness of breath cough congestion.. Historical: - Allergies: 17:56 Bactrim; iw 17:56 Cephalexin; iw 17:56 Codeine; iw 17:56 Iodine; iw 17:56 Levaquin; iw 17:56 SEAFOOD; iw 17:56 Sulfa (Sulfonamide Antibiotics); iw - PMHx: 17:56 ADD/ADHD; Anemia; Asthma; Diabetes - NIDDM; Hypertension; Hypothyroidism; pituitary iw tumor- surgically removed Jun 24; ROS: 21:40 Respiratory: Negative for shortness of breath, cough, wheezing, and pleuritic chest kb pain. 21:40 Constitutional: Positive for fever, Negative for body aches, chills, fatigue, malaise, poor PO intake, weight loss. 21:40 Abdomen/GI: Positive for nausea, diarrhea, Negative for abdominal pain, vomiting. 21:40 All other systems are negative. Exam: 21:41 Head/Face: Normocephalic, atraumatic. ENT: Moist Mucous membranes Cardiovascular: kb Regular rate and rhythm with a normal S1 and S2. No gallops, murmurs, or rubs. No pulse deficits. Respiratory: Respirations even and unlabored. No increased work of breathing, no retractions or nasal flaring. Abdomen/GI: Soft, non-tender. No distention Skin: Warm, dry with normal turgor. Normal color. MS/ Extremity: Pulses equal, no cyanosis. Neurovascular intact. Full, normal range of motion. Neuro: Awake and alert, GCS 15, oriented to person, place, time, and situation. Moves all extremities. Normal gait. Psych: Awake, alert, with orientation to person, place and time. Behavior, mood, and affect are within normal limits. 21:41 Constitutional: The patient appears alert, awake, uncomfortable. Vital Signs: 18:18 BP 141 / 77; Pulse 110; Resp 18; Temp 101.0; Pulse Ox 96% ; Weight 129.73 kg; Height 5 ll1 ft. 4 in. (162.56 cm); Pain 6/10; 20:43 Temp 98.5; vg1 21:00 BP 115 / 66; Pulse 90; Resp 20; Pulse Ox 95% ; vg1 22:23 BP 112 / 61; Pulse 88; Resp 18; Pulse Ox 94% ; ea 18:18 Body Mass Index 49.09 (129.73 kg, 162.56 cm) ll1 MDM: 20:33 Patient medically screened. kb 21:40 Data reviewed: vital signs, nurses notes. Data interpreted: Pulse oximetry: on room air kb is 95 %. Interpretation: normal. Counseling: I had a detailed discussion with the patient and/or guardian regarding: the historical points, exam findings, and any diagnostic results supporting the discharge/admit diagnosis, lab results, the need for outpatient follow up, a family practitioner, to return to the emergency department if symptoms worsen or persist or if there are any questions or concerns that arise at home. 02/23 18:34 Order name: Flu; Complete Time: 20:33 ss 02/23 20:22 Order name: SARS-COV-2 RT PCR; Complete Time: 20:33 EDMS Administered Medications: 20:56 Drug: NS 0.9% 1000 ml Route: IV; Rate: 1 bolus; Site: right hand; vg1 22:26 Follow up: IV Status: Completed infusion; IV Intake: 1000ml vg1 20:59 Drug: Zofran (Ondansetron) 4 mg Route: IVP; Site: right hand; vg1 22:26 Follow up: Response: No adverse reaction vg1 Disposition: 08/05 00:24 Co-signature as Attending Physician, Jl Gonzales MD. pkl Disposition Summary: 02/23/21 21:42 Discharge Ordered Location: Home kb Condition: Stable kb Diagnosis - Coronavirus infection, unspecified kb - Nausea kb - Diarrhea, unspecified kb Followup: kb - With: Emergency Department - When: As needed - Reason: Worsening of condition Followup: kb - With: Private Physician - When: 2 - 3 days - Reason: Recheck today's complaints, Continuance of care, Re-evaluation by your physician Discharge Instructions: - Discharge Summary Sheet kb - Food Choices to Help Relieve Diarrhea, Adult kb - Viral Respiratory Infection, [id number] kb - COVID-19 kb Forms: - Medication Reconciliation Form kb - Thank You Letter kb - Antibiotic Education kb - Prescription Opioid Use kb Prescriptions: - Zofran 4 mg Oral Tablet - take 1 tablet by ORAL route every 6 hours As needed; 20 tablet; Refills: 0, kb Product Selection Permitted Signatures: Dispatcher [employer] EDVijaya Wilkes, MANUFACTURING QUALITY TECHNICIAN-C MANUFACTURING QUALITY TECHNICIAN-Jl Salas MD MD pkl Ingrid Bernabe, RN RN iw Ghada Harvey RN RN vg1 Corrections: (The following items were deleted from the chart) 02/23 19:15 18:34 CORONAVIRUS+MR.LAB.BRZ ordered. EDVA EDMS 20:46 20:45 Orthostatics ordered. vg1 vg1
[2021-02-24 00:29] VITALS: TEMP 98.5
[2021-02-24 00:31] VITALS: BP 112/61; O2SAT 94
== END 2021-02-23 22:24 | disposition home or self-care (01) ==
LOC: ER 17:48
DX: U07.1 COVID-19 (principal); R19.7 Diarrhea, unspecified; I10 Essential (primary) hypertension; Z88.1 Allergy status to other antibiotic agents; Z88.2 Allergy status to sulfonamides; Z88.5 Allergy status to narcotic agent; Z91.013 Allergy to seafood; Z91.048 Other nonmedicinal substance allergy status
CPT/HCPCS: 87804; 96361; 96374; 99283; J2405; J7030; U0003

== ENCOUNTER 2021-02-27 10:35 | Inpatient (IN) | payer SELFPAY ==
--- OUTSIDE RECORDS SUMMARY | 2021-02-27 10:39 | XMS REPORT | Continuity of Care Document ---
:1970 Author Organization [facility] t Address [address] [place] [address] Dr. Holbrook [address] [place] [address] Care Team Providers Name Role Phone Pcp [...] 2017-[address] [facility] [address] [facility] 2 [facility] - adverse 00:00: Medical reaction 00 Center s Codeine Propensi Active 2017-[address] ty to 08-27 vity [facility] - adverse 00:00: Medical reaction 00 Center s Levoflox Propensi Active 2017-[address] acin ty to 2- tions [facility] - adverse 00:00: Medical reaction 00 Center s Monosodi Propensi Active 2017-07 Flushed [facility] 08[facility]27 face [facility] - Glutamat adverse 00:00: Medical e reaction 00 Center s Ceftriax Propensi Active Rash 2017-[address] one ty to 08-21 [facility] - adverse 00:00: Medical reaction 00 Center s statin Adverse Active throat [facility] Reaction swelling [facility] clindamy Adverse Active swelling [facility] rajiv Reaction [facility] vancomyc Adverse Active face [facility] in Reaction swelling, [facility] - fever [facility] Jardianc Adverse Active severe [facility] e Reaction anxiety [facility] Iodine Adverse Active increases BS [facility] Reaction to [facility] - 400's,skin [facility] a blisters l [facility] Azithrom Adverse Active decreased [facility] ycin Reaction B/P,palpitat [place] - ions [facility] Lisinopr Adverse Active cough [facility] Reaction [facility] Fenofibr Adverse Active face [facility] ate Reaction swelling [facility] Bactrim Adverse Active face [facility] Reaction swelling [facility] Levaquin Adverse Active hallucinatio C [facility] Reaction ns [facility] Family History Family Member Diagnosis Comments Start Date Stop Date Source Natural father Hypertension [facility] Natural mother Diabetes [facility] Natural mother Hypertension [facility] Other Diabetes [facility] Social History Social Habit Start Date Stop Date Quantity Comments Source History SDOH [facility] Std Dr[facility] History SDOH [facility] Alcohol Binge Medical Alisha ter Sex Assigned At [facility] Tobacco use and 2018-06-24 2018-06-[address] [facility] - exposure 00:00:00 00:00:00 [facility] Center Alcohol intake 2018-06-24 2018-06-24 [facility]00 of alcohol [facility] Center (finding) History SDOH 2018-06-18 2018-06-[address] [facility] - Alcohol Frequency 00:00:00 00:00:00 [facility] Center Smoking Status Start Date Stop Date Source Former smoker 2018-06-24 00:00:00 2018-06-24 00:00:[address] [facility] Medications Ordered Filled [...] tablet [facility] ne Sodium ne Sodium [place] in the [place] kes - morning on Memoria an empty l stomach Outpati ent Clinics Procedures This patient has no known procedures. Plan of Care Planned Activity Planned Date Details Comments Source Future Scheduled 2020-03-[address] [facility] Test 00:00:00 (#1) [code = Medical Center INFLUENZA VACCINE (#1)] Future Scheduled [address] [facility] - Test 00:00:00 (procedure) [code = [facility] 05253055] Future Scheduled [address] [facility] - Test 00:00:00 malignant neoplasm Medical C enter of cervix (procedure) [code = 073664299] Future Scheduled [address] [facility] - Test 00:00:00 malignant neoplasm Medical C enter of breast (procedure) [code = 494001480] Future Scheduled [address] [facility] - Test 00:00:00 malignant neoplasm Medical C enter of colon (procedure) [code = 899940719] Encounters Start End Encounter Admission Attending Care Care Encounter Source Date/Time Date/Time Type Type Clinicians Facility Department ID 2021-02-04 2021-02-04 Outpatient [facility] [id number] [facility] 2021-01-20 2021-01-20 Outpatient [facility] [id number] [facility] 2020-11-30 2020-11-30 Outpatient [facility] [id number] [facility] 2020-11-12 2020-11-12 Outpatient [facility] [id number] [facility] 2020-10-25 2020-10-25 Outpatient [facility] [id number] [facility] 2020-10-25 2020-10-25 Outpatient [facility] [id number] [facility] 2020-10-05 2020-10-05 Patient NATALIE Jenkins [id number] 00:00:00 00:00:00 Outreach [facility] PRIMARY [id number] [place] CARE [id number] PAVILLION [id number] 2020-09-30 2020-09-30 Outpatient [facility] [id number] [facility] 2020-08-09 2020-08-09 Outpatient [facility] [id number] [facility] 2020-08-09 2020-08-09 Outpatient [facility] [id number] [facility] 2020-08-03 2020-08-03 Office [facility] [id number] 12:25:30 14:25:15 Visit Ronn PRIMARY [id number] CARE [id number] PAVILLION [id number] 2020-07-26 2020-07-26 Outpatient [facility] [id number] [facility] 2020-07-19 2020-07-19 Outpatient [facility] [id number] [facility] 2020-07-08 2020-07-08 Outpatient [facility] [id number] [facility] 2020-06-23 2020-06-23 Outpatient [facility] [id number] [facility] 2020-06-16 2020-06-16 Outpatient [facility] [id number] [facility] 2020-04-29 2020-04-29 Outpatient [facility] [id number] [facility] 2020-04-19 2020-04-19 Outpatient [facility] [id number] [facility]00 [facility] Outpati ent Clinics 2020-03-22 2020-03-22 [facility] [id number] [address] 11[facility]50:00 11:50:00 [facility] Medicine Outpati ent Clinics 2020-02-18 2020-02-18 [facility] [id number] 09[facility]26:00 09:26:00 [facility] Medicine Outpati ent Clinics 2020-02-05 2020-02-05 [facility] [id number] 08:00:00 08:00:00 [facility] Medicine Outpati ent Clinics 2020-02-02 2020-02-02 [facility] [id number] 18:03:00 18:03:00 [facility] Medicine Outpati ent Clinics 2019-11-19 2019-11-19 [facility] [id number] 09:25:00 09:25:00 [facility] Medicine Outpati ent Clinics 2019-11-10 2019-11-10 [facility] [id number] 10:08:00 10:08:00 [facility] Medicine Outpati ent Clinics 2019-11-06 2019-11-06 [facility] [id number] 08:00:00 08:00:00 [facility] Medicine Outpati ent Clinics 2019-10-30 2019-10-30 [facility] [id number] 15:58:00 15:58:00 [facility] Medicine Outpati ent Clinics 2019-10-27 2019-10-27 [facility] [id number] 11:16:00 11:16:00 [facility] Medicine Outpati ent Clinics 2019-08-12 2019-08-12 Outpatient [facility] [id number] [facility] 00[facility]00 [facility] Outpati ent Clinics 2019-08-07 2019-08-07 [facility] [id number] 08[facility]40:00 08:40:00 [facility] Medicine Outpati ent Clinics 2019-05-01 2019-05-01 [facility] [id number] 09:40:00 09:40:[address] [facility] Medicine l Medicine Outpati ent Clinics 2019-01-30 2019-01-30 [facility] [id number] 08:40:00 08:40:00 [facility] Medicine Outpati ent Clinics 2018-10-27 2018-10-27 [facility] [id number] 06:29:00 06:29:[address] [facility] Medicine Medicine Outpati ent Clinics 2018-10-22 2018-10-22 [facility] [id number] 13:00:00 13:00:00 [facility] Medicine Medicine Outpati ent Clinics 2018-07-30 2018-07-30 [facility] [id number] 13:30:00 13:30:00 [facility] Medicine Outpati ent Clinics 2018-07-25 2018-07-25 [facility] [id number] 19:48:00 19:48:[address] [facility] Medicine Medicine Outpati ent Clinics 2018-03-12 2018-03-12 [facility] [id number] 13:41:00 13:41:00 [facility] Medicine Medicine Outpati ent Clinics 2018-02-27 2018-02-27 [facility] [id number] 14:46:00 14:46:00 [facility] Medicine Outpati ent Clinics 2018-02-20 2018-02-20 Outpatient Helen Bailon [id number] 08:30:00 08:30:00 [facility] Outpati ent Clinics 2018-02-12 2018-02-12 Outpatient Helen Bailon [id number] 10:45:00 10:45:00 [facility] Outpati ent Clinics 2018-01-21 2018-01-21 Outpatient Helen Bailon [id number] 09:00:00 09:00:00 [facility] ent Clinics Results Test Description Test Time Test Comments Results Result [facility] e Comments TISSUE EXAM 2018-06-28 Surgical Pathology Report 08:38:00 Case: [id number] Authorizing Provider: Alex Ruano MD Collected: 06/24/2018 0802 Ordering Location: [address] Received: 06/24/2018 0809 Service Pathologist: Chon Andino MD Specimens: A) - Tumor, pituitary tumor B) - Tumor, pituitary tumor A.PITUITARY GLAND, TRANSSPHENOIDAL 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 PITUITARY GLAND, TRANSSPHENOIDAL HYPOPHYSECTOMY:NULL CELL ADENOMAENTRAPPED ADENOHYPOPHYSIS Signing Pathologist Direct Phone Line: [phone] y signed by Chon Andino MD on 06/28/2018 at 8:38 AMImmunoperoxidase stains performed on the second specimen show that the tumor has no staining for growth hormone, LH, FSH, TSH, prolactin, or ACTH. 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 The MIB-1 proliferation index is less than 1%. 64860 x 2; 04715; 92958; 51465 x 6; 56347Ifptyzoio adenoma A. Pituitary tumor; B. Pituitary tumorA. [...] stains. Immunohistochemistry technical testing was performed at [facility], Pathology Laboratory where it was [...] (test 141 mg/dL 70-110 H TESTED AT [facility] [address] [facility] 7703 0 POCT-GLUCOSE [id number] 12:06:00 Test Item Value Reference Range Interpretation Comments POC-GLUCOSE METER 217 mg/dL 70-110 H TESTED AT [facility] 67 ([facility]) (test code = FOX R [facility] 1538) 87429 BASIC METABOLIC [id number] 07:18:00 Test Item Value Reference Range Interpretation [...] PATIEN TS. CBC W/PLT COUNT & AUTO [id number] 06:49:00 Test Item Value Reference Range Interpretation [...] (BEAKER) (test code = 2801) BASIC METABOLIC [id number] 23:52:00 Test Item Value Reference Range Interpretation [...] APPLICABLE FOR DIALYSIS PATIEN TS. SODIUM, RANDOM [id number] 23:49:00 Test Item Value Reference Range Interpretation Comments SODIUM URINE (BEAKER) (test code = < meq/L 243) Reference Range: No NormalsCBC W/PLT COUNT & AUTO [id number] 23:35:00 Test Item Value Reference Range Interpretation [...] (test code = 2801) CT, BRAIN, WITHOUT [id number] 22:57:00FINAL REPORT CT Head without contrast CLINICAL [...] [place] Verified Date/Time: 06/26/2018 22:57:28 Reading Location: [address] TransitionalReading Room -GLUCOSE [id number] 21:07:00 Test Item Value Reference Range Interpretation Comments POC-GLUCOSE METER 211 mg/dL 70-110 H TESTED AT [facility] 6720 ([facility]) (test code = [facility] 1538) [address] BASIC METABOLIC [id number] 14:29:00 Test Item Value Reference Range Interpretation [...] PATIEN TS. CBC W/PLT COUNT & AUTO [id number] 14:25:00 Test Item Value Reference Range Interpretation [...] PERCENT (BEAKER) (test code = 2801) POCT-GLUCOSE [id number] 13:38:00 Test Item Value Reference Range Interpretation Comments POC-GLUCOSE METER 219 mg/dL 70-110 H TESTED AT [place] [address] ([facility]) (test code = JABIERANTONIETTA [place] [facility] 1538) [address] POCT-GLUCOSE [id number] 12:34:00 Test Item Value Reference Range Interpretation Comments POC-GLUCOSE METER 193 mg/dL 70-110 H TESTED AT [place] [address] ([facility]) (test code = [facility] [place] 1538) [address] POCT-GLUCOSE [id number] 16:17:00 Test Item Value Reference Range Interpretation Comments POC-GLUCOSE METER 244 mg/dL 70-110 H TESTED AT [place] [address] ([facility]) (test code = [facility] [place] 1538) [address] POCT-GLUCOSE [id number] 12:08:00 Test Item Value Reference Range Interpretation Comments POC-GLUCOSE METER 229 mg/dL 70-110 H TESTED AT [place] [address] ([facility]) (test code = [facility] [place] 1538) [address] POCT-GLUCOSE [id number] 08:27:00 Test Item Value Reference Range Interpretation Comments POC-GLUCOSE METER 280 mg/dL 70-110 H TESTED AT [place] [address] ([facility]) (test code = [facility] [place] 1538) [address] OSMOLALITY, [id number] 05:16:00 Test Item Value Reference Range Interpretation Comments OSMOLALITY URINE ([facility]) (test 340 mOsm/kg 40-1,400 code = 614) SPECIFIC GRAVITY, [id number] 04:53:00 Test Item Value Reference Range Interpretation Comments SPECIFIC GRAVITY UA (BEAKER) (test code 1.010 1.001-1.035 = 468) POCT-GLUCOSE [id number] 22:29:00 Test Item Value Reference Range Interpretation Comments POC-GLUCOSE METER 257 mg/dL 70-110 H TESTED AT [facility] 6720 ([facility]) (test code = [facility] 1538) [address] BASIC METABOLIC [id number] 17:49:00 Test Item Value Reference Range Interpretation [...] NOT APPLICABLE FOR DIALYSIS PATIEN TS. POCT-GLUCOSE [id number] 17:02:00 Test Item Value Reference Range Interpretation Comments POC-GLUCOSE METER 235 mg/dL 70-110 H TESTED AT [facility] 6720 ([facility]) (test code = [facility] 1538) 25778 POCT-GLUCOSE [id number] 12:06:00 Test Item Value Reference Range Interpretation Comments POC-GLUCOSE METER 249 mg/dL 70-110 H TESTED AT [facility] 6720 (BEAKER) (test code = [facility] 1538) [address] POCT-GLUCOSE [id number] 09:40:00 Test Item Value Reference Range Interpretation Comments POC-GLUCOSE METER 278 mg/dL 70-110 H TESTED AT [facility] 67 (BEAKER) (test code = [place] 1538) [address] BASIC METABOLIC [id number] 06:14:00 Test Item Value Reference Range Interpretation [...] S NOT APPLICABLE FOR DIALYSIS PATIEN TS. [id number] 06:03:00 Test Item Value Reference Range Interpretation [...] for patients with mechanical heart valves. SCREEN, [id number] 05:59:00 Test Item Value Reference Range Interpretation Comments TEST URINE (BEAKER) (test Negative code = 583) POCT-GLUCOSE [id number] 05:46:00 Test Item Value Reference Range Interpretation Comments POC-GLUCOSE METER 140 mg/dL 70-110 H TESTED AT [facility] 6720 (BEAKER) (test code = [place] 1538) [address] CBC W/PLT COUNT & AUTO [id number] 05:46:00 Test Item Value Reference Range Interpretation [...] PERCENT (BEAKER) (test code = 2801) POCT-GLUCOSE [id number] 21:27:00 Test Item Value Reference Range Interpretation Comments POC-GLUCOSE METER 223 mg/dL 70-110 H TESTED AT [place] [address] ([facility]) (test code = [facility] 1538) [address] POCT-GLUCOSE [id number] 17:26:00 Test Item Value Reference Range Interpretation Comments POC-GLUCOSE METER 223 mg/dL 70-110 H TESTED AT [place] [address] ([facility]) (test code = [facility] 1538) [address] BASIC METABOLIC [id number] 16:43:00 Test Item Value Reference Range Interpretation [...] NOT APPLICABLE FOR DIALYSIS PATIEN TS. POCT-GLUCOSE [id number] 09:06:00 Test Item Value Reference Range Interpretation Comments POC-GLUCOSE METER 265 mg/dL 70-110 H TESTED AT [facility] 6720 (BEAKER) (test code = [facility] 1538) [address] POCT-GLUCOSE [id number] 00:22:00 Test Item Value Reference Range Interpretation Comments POC-GLUCOSE METER 210 mg/dL 70-110 H TESTED AT [place] [address] ([facility]) (test code = [place] 1538) [address] POCT-GLUCOSE [id number] 20:27:00 Test Item Value Reference Range Interpretation Comments POC-GLUCOSE METER 235 mg/dL 70-110 H TESTED AT [place] [address] ([facility]) (test code = [place] 1538) [address] POCT-GLUCOSE [id number] 17:10:00 Test Item Value Reference Range Interpretation Comments POC-GLUCOSE METER 264 mg/dL 70-110 H TESTED AT [place] [address] ([facility]) (test code = [place] 1538) [address] POCT-GLUCOSE [id number] 16:00:00 Test Item Value Reference Range Interpretation Comments POC-GLUCOSE METER 242 mg/dL 70-110 H TESTED AT [place] [address] ([facility]) (test code = [place] 1538) [address] POCT-GLUCOSE [id number] 08:54:00 Test Item Value Reference Range Interpretation Comments POC-GLUCOSE METER 224 mg/dL 70-110 H TESTED AT [place] [address] ([facility]) (test code = [place] 1538) [address] POCT-GLUCOSE [id number] 21:30:00 Test Item Value Reference Range Interpretation Comments POC-GLUCOSE METER 254 mg/dL 70-110 H TESTED AT [place] [address] ([facility]) (test code = [place] 1538) [address] POCT-GLUCOSE [id number] 17:23:00 Test Item Value Reference Range Interpretation Comments POC-GLUCOSE METER 193 mg/dL 70-110 H TESTED AT [place] [address] ([facility]) (test code = [place] 1538) [address] POCT-GLUCOSE [id number] 11:53:00 Test Item Value Reference Range Interpretation Comments POC-GLUCOSE METER 179 mg/dL 70-110 H TESTED AT [place] [address] ([facility]) (test code = [place] 1538) [address] [id number] 10:15:00 Test Item Value Reference Range Interpretation Comments CORTISOL, TOTAL ([facility]) (test code 4.7 ug/dL 3.7-19.4 = 2755) POCT-GLUCOSE [id number] 08:07:00 Test Item Value Reference Range Interpretation Comments POC-GLUCOSE METER 184 mg/dL 70-110 H TESTED AT [place] [address] ([facility]) (test code = [place] 1538) [address] CT, BRAIN, WITHOUT [id number] 22:07:00FINAL REPORT CT Head without contrast CLINICAL [...] [place] Verified Date/Time: 06/20/2018 22:07:25 Reading Location: [address] Transitional Reading Room POCT-GLUCOSE [id number] 21:00:00 Test Item Value Reference Range Interpretation Comments POC-GLUCOSE METER 227 mg/dL 70-110 H TESTED AT [facility] 67 ([facility]) (test code = [place] [facility] 1538) 13973 POCT-GLUCOSE [id number] 16:57:00 Test Item Value Reference Range Interpretation Comments POC-GLUCOSE METER 216 mg/dL 70-110 H TESTED AT [place] [address] ([facility]) (test code = [place] [facility] 1538) [address] POCT-GLUCOSE [id number] 13:11:00 Test Item Value Reference Range Interpretation Comments POC-GLUCOSE METER 198 mg/dL 70-110 H TESTED AT [place] [address] ([facility]) (test code = [place] [facility] 1538) [address] POCT-GLUCOSE [id number] 07:47:00 Test Item Value Reference Range Interpretation Comments POC-GLUCOSE METER 213 mg/dL 70-110 H TESTED AT [place] [address] ([facility]) (test code = [place] [facility] 1538) [address] BASIC METABOLIC [id number] 06:57:00 Test Item Value Reference Range Interpretation [...] NOT APPLICABLE FOR DIALYSIS PATIEN TS. POCT-GLUCOSE [id number] 05:24:00 Test Item Value Reference Range Interpretation Comments POC-GLUCOSE METER 192 mg/dL 70-110 H TESTED AT [place] [address] ([facility]) (test code = FOX [place] [facility] 1538) [address] CT, CTANGIO [id number] 01:03:00FINAL REPORT CLINICAL HISTORY: Stroke TECHNIQUE: Initially, [...] MDReport Verified Date/Time: 06/20/2018 01:03:44 Reading Location: [address] Transitional Reading Room [facility] [place], CAROTID, ANGIO 2018-06-20 [...] [place] Verified Date/Time: 06/20/2018 01:03:44 Reading Location: [address] Reading Room POCT-GLUCOSE METER 2018-06-20 00:40:00 Test Item Value Reference Range Interpretation Comments POC-GLUCOSE METER 283 mg/dL 70-110 H TESTED AT [place] [address] ([facility]) (test code = [place] [facility] 1538) [address]84 POCT-GLUCOSE [id number] 21:21:00 Test Item Value Reference Range Interpretation Comments POC-GLUCOSE METER 343 mg/dL 70-110 H TESTED AT [place] [address] ([facility]) (test code = FOX [place] [facility] 1538) [address] SCREEN, [id number] 18:52:00 Test Item Value Reference Range Interpretation Comments TEST URINE (AKER) (test Negative code = 583) POCT-GLUCOSE [id number] 17:17:00 Test Item Value Reference Range Interpretation Comments POC-GLUCOSE METER 287 mg/dL 70-110 H TESTED AT [place] [address] ([facility]) (test code = [place] [facility] 1538) 6[address] [id number] 15:59:00 Test Item Value Reference Range Interpretation Comments RPR SCREEN (AKER) (test code = Nonreactive Nonreactive 420) POCT-GLUCOSE [id number] 15:07:00 Test Item Value Reference Range Interpretation Comments POC-GLUCOSE METER 323 mg/dL 70-110 H TESTED AT [place] [address] ([facility]) (test code = [place] [facility] 1538) [address] T4, [id number] 13:11:00 Test Item Value Reference Range Interpretation Comments FREE T4 ([facility]) (test code = 655) 0.89 ng/dL 0.70-1.48 HIV-1 ANTIGEN WITH HIV-1/2 [id number] 13:11:00 Test Item Value Reference Range Interpretation Comments HIV-1 ANTIGEN WITH HIV 1\\T\\2 Nonreactive Nonreactive ANTIBODY (2) (BEAKER) (test code = 2586) RAPID DRUG SCREEN, [id number] 12:47:00 Test Item Value Reference Range Interpretation [...] situations. Chain of custody not maintained. Some fanh-moi-mgvctnc medications, as well as adulterants, may cause inaccurate results. Clinical correlation should be applied. A more comprehensive drug screen or confirmation of a detected drug may be performed upon request. POCT-GLUCOSE [id number] 12:37:00 Test Item Value Reference Range Interpretation Comments POC-GLUCOSE METER 292 mg/dL 70-110 H TESTED AT [facility] 6720 (BEAKER) (test code = [place] 1538) [id number] HEMOGLOBIN [id number] 12:35:00 Test Item Value Reference Range Interpretation Comments HEMOGLOBIN A1C (BEAKER) (test code = 7.9 % 4.3-6.1 H 368) OSMOLALITY, [id number] 12:34:00 Test Item Value Reference Range Interpretation Comments OSMOLALITY, SERUM (BEAKER) (test 310 mOsm/kg 275-295 H code = 615) C-REACTIVE [id number] 12:28:00 Test Item Value Reference Range Interpretation Comments C-REACTIVE PROTEIN (BEAKER) (test 0.81 mg/dL 0.00-0.50 H code = 676) OSMOLALITY, [id number] 12:22:00 Test Item Value Reference Range Interpretation Comments OSMOLALITY URINE (BEAKER) (test 247 mOsm/kg 40-1,400 code = 614) CBC W/PLT COUNT & AUTO [id number] 12:14:00 Test Item Value Reference Range Interpretation [...] PERCENT (BEAKER) (test code = 2801) POCT-GLUCOSE [id number] 10:30:00 Test Item Value Reference Range Interpretation Comments POC-GLUCOSE METER 341 mg/dL 70-110 H TESTED AT [facility] 67[address] ([place]) (test code = [place] 1538) [id number] 06:17:00 Test Item Value Reference Range Interpretation Comments PROLACTIN (BROOK) (test code = 23.34 ng/mL 5.18-26.53 758) POCT-GLUCOSE [id number] 05:55:00 Test Item Value Reference Range Interpretation Comments POC-GLUCOSE METER 285 mg/dL 70-110 H TESTED AT [facility] 67[address] ([place]) (test code = [place] 1538) [id number] MR, BRAIN, [id number] 02:25:00Pituitary protocolCr 0.6FINAL REPORT MRI brain with and without contrast Comparison: None. 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 Signed: [facility]arc[facility] Mcdonald [facility] Verified Date/Time: 06/19/2018 02:25:15 Reading Location: [facility] B1 C013Y CT Body Reading Room TSH/FREE T4 IF [id number] 00:26:00 Test Item Value Reference Range Interpretation Comments THYROID STIMULATING HORMONE 0.41 uIU/mL 0.35-4.94 (BEAKER) (test code = 772) BASIC METABOLIC [id number] 00:07:00 Test Item Value Reference Range Interpretation [...] DIALYSIS PATIEN TS. URINALYSIS W/ REFLEX URINE [id number] 23:13:00 Test Item Value Reference Range Interpretation [...]
[2021-02-27] MEDS ORDERED: ACETAMINOPHEN 500 MG TAB ONE ×2 (12:31→22:06)
[2021-02-27] MEDS ORDERED: ALBUTEROL INHALER 60 PUFF/8 GM IH ONE (12:32)
[2021-02-27] MEDS ORDERED: NA CHLORIDE 0.9% 1,000 ML ONE ×2 (12:32→16:31)
[2021-02-27] MEDS ORDERED: HYDROCORTISONE SUC 100 MG INJ ONE (12:34)
[2021-02-27] MEDS ORDERED: ONDANSETRON 4 MG/2 ML VIAL ONE (12:59)
[2021-02-27] MEDS ORDERED: AZITHROMYCIN IV 500 MG in NA CHLORIDE 0.9% 250 ML IVPB ONE (13:00)
--- NOTE | 2021-02-27 13:00 | ER ---
Nurse's Notes [facility] Name: Chantal Stout Age: 50 yrs Sex: Female : 1970 Arrival Date: 02/27/2021 Time: 10:42 Bed 28 Private MD: Diagnosis: Pneumonia due to SARS-associated coronavirus;Fever, unspecified;Hypoxemia;Type 2 diabetes mellitus with hyperglycemia;Other obesity Presentation: 02/27 10:55 Chief complaint: Patient states: tested positive for COVID a couple days ago, was seen iw here , feeling very weak, dehydrated, has headache, fever , was 90% on RA. Coronavirus screen: Client presents with at least one sign or symptom that may indicate coronavirus-19. Client reports previous positive COVID test result. Ebola Screen: Patient negative for fever greater than or equal to 101.5 degrees Fahrenheit, and additional compatible Ebola Virus Disease symptoms Patient denies exposure to infectious person. Patient denies travel to an Ebola-affected area in the 21 days before illness onset. No symptoms or risks identified at this time. Initial Sepsis Screen: Does the patient meet any 2 criteria? Does the patient have a suspected source of infection?. Risk Assessment: Do you want to hurt yourself or someone else? Patient reports no desire to harm self or others. Onset of symptoms was February 24, 2021. 10:55 Method Of Arrival: EMS: [facility] iw 10:55 Acuity: NOÉ 3 iw Triage Assessment: 11:40 Respiratory: Onset: The symptoms/episode began/occurred at an unknown time. the patient rb3 has moderate shortness of breath. Historical: - Allergies: 10:57 Bactrim; iw 10:57 Cephalexin; iw 10:57 Codeine; iw 10:57 Iodine; iw 10:57 Levaquin; iw 10:57 SEAFOOD; iw 10:57 Sulfa (Sulfonamide Antibiotics); iw - Home Meds: 10:57 glyburide 5 mg Oral tab 1 tab 2 times per day [Active]; hydrochlorothiazide 12.5 mg iw Oral cap 1 cap once daily [Active]; hydrocortisone 10 mg Oral tab 1 tab 2 times per day [Active]; insulin NPH human recomb 15 units subcutaneous twice a day [Active]; levothyroxine 100 mcg tab once daily [Active]; losartan 100 mg Oral tab 1 tab once daily [Active]; metformin 750 mg Oral Tb24 1 tab once daily for Type 2 Diabetes Mellitus [Active]; metformin 1,000 mg Oral tr24 1 tab twice a day for Type 2 Diabetes Mellitus [Active]; - PMHx: 10:57 ADD/ADHD; Anemia; Asthma; Diabetes - NIDDM; Hypertension; Hypothyroidism; pituitary iw tumor- surgically removed Jun 24; - Immunization history:: Client reports having NOT received the Covid vaccine. - Social history:: Smoking status: Patient/guardian denies using tobacco, the patient reports quitting approximately 3 years ago. Screenin:40 Abuse screen: Denies threats or abuse. Nutritional screening: No deficits noted. rb3 Tuberculosis screening: No symptoms or risk factors identified. Fall Risk None identified. Assessment: 11:40 General: Appears in no apparent distress. comfortable, Behavior is calm, cooperative, rb3 Reports chills for fever for feeling ill for 2-3 days. Pain: Complains of pain in left leg and right leg. Neuro: Level of Consciousness is awake, alert, obeys commands, Oriented to person, place, time, situation, Reports headache in entire. Cardiovascular: Patient's skin is warm and dry. Respiratory: Reports shortness of breath at rest cough that is productive, Airway is patent Respiratory effort is even, Respiratory pattern is tachypnea. GI: Reports nausea. : No signs and/or symptoms were reported regarding the genitourinary system. 12:30 Reassessment: Patient appears in no apparent distress at this time. No changes from rb3 previously documented assessment. 13:30 Reassessment: Patient appears in no apparent distress at this time. Patient and/or rb3 family updated on plan of care and expected duration. Pain level reassessed. Patient is alert, oriented x 3, equal unlabored respirations, skin warm/dry/pink. 14:28 Reassessment: Patient appears in no apparent distress at this time. No changes from rb3 previously documented assessment. 15:27 Reassessment: Patient appears in no apparent distress at this time. Patient and/or rb3 family updated on plan of care and expected duration. Pain level reassessed. Patient is alert, oriented x 3, equal unlabored respirations, skin warm/dry/pink. 16:27 Reassessment: Patient appears in no apparent distress at this time. No changes from rb3 previously documented assessment. 17:22 Reassessment: Patient appears in no apparent distress at this time. Patient and/or rb3 family updated on plan of care and expected duration. Pain level reassessed. Patient is alert, oriented x 3, equal unlabored respirations, skin warm/dry/pink. Pt is sitting on the bedside. Call light within reach. 18:20 Reassessment: Patient appears in no apparent distress at this time. No changes from rb3 previously documented assessment. Vital Signs: 10:55 BP 129 / 80; Pulse 106; Resp 22 S; Temp 100.1(TE); Pulse Ox 90% on R/A; Weight 129.73 iw kg; Height 5 ft. 4 in. (162.56 cm); 13:15 BP 130 / 65; Pulse 105; Resp 19; Pulse Ox 93% on 4 lpm NC; rb3 14:15 BP 129 / 84; Pulse 100; Resp 26; Pulse Ox 94% on 4 lpm NC; rb3 15:15 BP 115 / 83; Pulse 101; Resp 25; Pulse Ox 93% ; rb3 16:15 BP 117 / 75; Pulse 95; Resp 26; Pulse Ox 95% on 4 lpm NC; rb3 10:55 Body Mass Index 49.09 (129.73 kg, 162.56 cm) iw ED Course: 10:42 Patient arrived in ED. as 10:57 Triage completed. iw 10:58 Arm band placed on. iw 11:47 Marco Vargas MD is Attending Physician. manuela 11:58 Paige Lopez, RN is Primary Nurse. rb3 12:39 XRAY Chest (1 view) In Process Unspecified. EDMS 12:50 Inserted saline lock: 20 gauge in right forearm, using aseptic technique. ,using rb3 aseptic technique. Inserted by ALCIDES Figueroa. Blood collected. 12:57 Willie Galicia DO is Hospitalizing Provider. manuela 13:30 Hospitalizing Provider role handed off by Willie Galicia DO eb 13:30 Leonardo Mckoy MD is Hospitalizing Provider. eb 14:06 US Extremity Venous W Compression Efren In Process Unspecified. EDMS 15:52 Patient has correct armband on for positive identification. Placed in gown. Bed in low mh5 position. Call light in reach. Side rails up X 1. personnel monitor on. Pulse ox on. NIBP on. 15:52 EKG done, by ED staff, reviewed by Marco Vargas MD. [facility] 15:53 Basic Metabolic Panel Sent. [facility] 15:53 CBC with Diff Sent. [facility] 15:53 LFT's Sent. [facility] 02/28 07:53 Primary Nurse role handed off by Paige Lopez RN bd Administered Medications: 02/27 12:50 Drug: NS 0.9% 500 ml Route: IV; Rate: bolus; Site: right forearm; rb3 13:20 Follow up: IV Status: Completed infusion rb3 12:50 Drug: Tylenol 1000 mg Route: PO; rb3 13:45 Follow up: Response: No adverse reaction; Temperature is decreased; 99.1 rb3 12:50 Drug: Albuterol HFA Inhaler 4 puffs Route: Inhalation; rb3 12:52 Drug: Zofran (Ondansetron) 4 mg Route: IVP; Site: right forearm; rb3 13:11 Follow up: Response: No adverse reaction; Nausea is decreased rb3 13:10 Drug: Solu-CORTEF (hyrdoCORTISONE) 100 mg Route: IVP; Site: right forearm; rb3 13:30 Follow up: Response: No adverse reaction rb3 13:20 Drug: NS 0.9% 1000 ml Route: IV; Rate: 125 ml/hr; Site: right forearm; rb3 13:50 Drug: Zithromax (azithromycin) 500 mg Route: IVPB; Infused Over: 1 hrs; Site: right rb3 forearm; 14:48 Follow up: Response: No adverse reaction; IV Status: Completed infusion rb3 13:50 Drug: Pepcid (famotidine) 20 mg Route: IVP; Site: right forearm; rb3 14:10 Follow up: Response: No adverse reaction rb3 13:50 Drug: Lovenox (enoxaparin) 100 mg Route: Sub-Q; Site: abdomen; rb3 14:10 Follow up: Response: No adverse reaction rb3 13:50 Drug: Zinc Sulfate 220 mg Route: PO; rb3 14:20 Follow up: Response: No adverse reaction rb3 13:50 Drug: Vitamin D 4000 units Route: PO; rb3 14:30 Follow up: Response: No adverse reaction rb3 13:50 Drug: Vitamin C Chewable Tablet 500 mg Route: PO; rb3 14:30 Follow up: Response: No adverse reaction rb3 13:55 Drug: Decadron - Dexamethasone 6 mg Route: IVP; Site: right forearm; rb3 14:10 Follow up: Response: No adverse reaction rb3 16:50 Drug: Remdesivir 200 mg {Note: Had to wait for pharmacy to bring the medication..} rb3 Route: IV; Rate: per protocol; Site: right forearm; 17:40 Follow up: Response: No adverse reaction; IV Status: Completed infusion rb3 19:21 Not Given (Provider changed order): Vit W-Uertupmpwzdjq-Caq-Calcium-D3 Powder 500 rb3 mg-500 mg-1,000 unit 2 packets Feeding Tube once Intake: Outcome: 13:00 Decision to Hospitalize by Provider. [facility] [place] 02/28 13:43 Patient left the ED. [facility] Signatures: Dispatcher [employer] EDMS Angela Walsh Corey, MD MD cha Martinez, Amelia as Williams, Irene, RN RN iw Martinez, Maria [facility] Armida Ring Rebecca, RN RN 3
--- NOTE | 2021-02-27 13:00 | EDPHYS ---
Physician Documentation [facility] Name: Chantal Stout Age: 50 yrs Sex: Female : 1970 Arrival Date: 02/27/2021 Time: 10:42 Bed 28 Private MD: KRUPA Physician Marco Vargas HPI: 02/27 12:04 This 50 yrs old Female presents to ER via EMS with complaints of Shortness Of manuela Breath - covid+. 12:04 The patient has shortness of breath at rest, with light activity. Onset: The manuela symptoms/episode began/occurred 9 day(s) ago. Duration: The symptoms are continuous, and are steadily getting worse. The patient's shortness of breath is aggravated by coughing, exertion, light activity. Associated signs and symptoms: Pertinent positives: non-productive cough. Severity of symptoms: At their worst the symptoms were moderate in the emergency department the symptoms are unchanged. The patient has not experienced similar symptoms in the past. Historical: - Allergies: 10:57 Bactrim; iw 10:57 Cephalexin; iw 10:57 Codeine; iw 10:57 Iodine; iw 10:57 Levaquin; iw 10:57 SEAFOOD; iw 10:57 Sulfa (Sulfonamide Antibiotics); iw - Home Meds: 10:57 glyburide 5 mg Oral tab 1 tab 2 times per day [Active]; hydrochlorothiazide 12.5 mg iw Oral cap 1 cap once daily [Active]; hydrocortisone 10 mg Oral tab 1 tab 2 times per day [Active]; insulin NPH human recomb 15 units subcutaneous twice a day [Active]; levothyroxine 100 mcg tab once daily [Active]; losartan 100 mg Oral tab 1 tab once daily [Active]; metformin 750 mg Oral Tb24 1 tab once daily for Type 2 Diabetes Mellitus [Active]; metformin 1,000 mg Oral tr24 1 tab twice a day for Type 2 Diabetes Mellitus [Active]; - PMHx: 10:57 ADD/ADHD; Anemia; Asthma; Diabetes - NIDDM; Hypertension; Hypothyroidism; pituitary iw tumor- surgically removed Jun 24; - Immunization history:: Client reports having NOT received the Covid vaccine. - Social history:: Smoking status: Patient/guardian denies using tobacco, the patient reports quitting approximately 3 years ago. ROS: 12:05 Eyes: Negative for injury, pain, redness, and discharge, ENT: Negative for injury, manuela pain, and discharge, Neck: Negative for injury, pain, and swelling, Abdomen/GI: Negative for abdominal pain, nausea, vomiting, diarrhea, and constipation, Back: Negative for injury and pain, : Negative for injury, bleeding, discharge, and swelling, MS/Extremity: Negative for injury and deformity, Skin: Negative for injury, rash, and discoloration, Neuro: Negative for headache, weakness, numbness, tingling, and seizure, Psych: Negative for depression, anxiety, suicide ideation, homicidal ideation, and hallucinations, Allergy/Immunology: Negative for hives, rash, and allergies, Endocrine: Negative for neck swelling, polydipsia, polyuria, polyphagia, and marked weight changes. 12:05 Constitutional: Positive for fever, malaise. 12:05 ENT: Positive for rhinorrhea, sinus congestion. 12:05 Cardiovascular: Positive for palpitations. 12:05 Respiratory: Positive for cough, dyspnea on exertion, shortness of breath, at rest. 12:05 Abdomen/GI: Negative for abdominal pain. 12:05 MS/extremity: Positive for pain, of the right leg and left leg. Exam: 12:05 Head/Face: Normocephalic, atraumatic. Eyes: Pupils equal round and reactive to light, manuela extra-ocular motions intact. Lids and lashes normal. Conjunctiva and sclera are non-icteric and not injected. Cornea within normal limits. Periorbital areas with no swelling, redness, or edema. ENT: Nares patent. No nasal discharge, no septal abnormalities noted. Tympanic membranes are normal and external auditory canals are clear. Oropharynx with no redness, swelling, or masses, exudates, or evidence of obstruction, uvula midline. Mucous membranes moist. Neck: Trachea midline, no thyromegaly or masses palpated, and no cervical lymphadenopathy. Supple, full range of motion without nuchal rigidity, or vertebral point tenderness. No Meningismus. Chest/axilla: Normal chest wall appearance and motion. Nontender with no deformity. No lesions are appreciated. Abdomen/GI: Soft, non-tender, with normal bowel sounds. No distension or tympany. No guarding or rebound. No evidence of tenderness throughout. Back: No spinal tenderness. No costovertebral tenderness. Full range of motion. Skin: Warm, dry with normal turgor. Normal color with no rashes, no lesions, and no evidence of cellulitis. MS/ Extremity: Pulses equal, no cyanosis. Neurovascular intact. Full, normal range of motion. Neuro: Awake and alert, GCS 15, oriented to person, place, time, and situation. Cranial nerves II-XII grossly intact. Motor strength 5/5 in all extremities. Sensory grossly intact. Cerebellar exam normal. Normal gait. 12:05 Constitutional: The patient appears febrile. 16:19 ECG was reviewed by the Attending Physician. [facility] Vital Signs: 10:55 BP 129 / 80; Pulse 106; Resp 22 S; Temp 100.1(TE); Pulse Ox 90% on R/A; Weight 129.73 iw kg; Height 5 ft. 4 in. (162.56 cm); 13:15 BP 130 / 65; Pulse 105; Resp 19; Pulse Ox 93% on 4 lpm NC; rb3 14:15 BP 129 / 84; Pulse 100; Resp 26; Pulse Ox 94% on 4 lpm NC; rb3 15:15 BP 115 / 83; Pulse 101; Resp 25; Pulse Ox 93% ; rb3 16:15 BP 117 / 75; Pulse 95; Resp 26; Pulse Ox 95% on 4 lpm NC; rb3 10:55 Body Mass Index 49.09 (129.73 kg, 162.56 cm) iw MDM: 11:47 Patient medically screened. [facility] 12:14 Differential diagnosis: Anemia asthma, Bronchitis CHF exacerbation, Chronic Obstructive manuela Pulmonary Disease URI, bronchitis, pneumonia UTI, pneumonia, Sepsis Unstable Angina. Antibiotic administration: Zithromax is given. The patient's Wells Deep Vein Thrombosis Score was calculated as follows: Heart Rate >100 BPM (1.5 Pts) Total Score: 0-2 Pts- Low Risk. Differential Diagnosis: Obstructed Airway Bronchitis Upper Respiratory Infection Pharyngitis Asthma Exacerbation Pneumonia. The patient's pulmonary embolism risk score was calculated as follows: Total Score: 0-2 points. This patient was found to be at low risk for a pulmonary embolism by using the Well's assessment criteria. Immunization status: Influenza vaccine:. Data reviewed: vital signs, nurses notes, lab test result(s), EKG, radiologic studies, CT scan, plain films. Data interpreted: property assessment monitor: rate is 106 beats/min, rhythm is regular, Pulse oximetry: on room air is 90 %. Test interpretation: by ED physician or midlevel provider: ECG, plain radiologic studies. Counseling: I had a detailed discussion with the patient and/or guardian regarding: the historical points, exam findings, and any diagnostic results supporting the discharge/admit diagnosis, lab results, radiology results, the need for outpatient follow up. 02/27 12:03 Order name: Basic Metabolic Panel [facility] 02/27 12:03 Order name: CBC with Diff [facility] 02/27 12:03 Order name: LFT's [facility] 02/27 12:03 Order name: Magnesium; Complete Time: 13:55 [facility] 02/27 12:03 Order name: NT PRO-BNP; Complete Time: 13:55 [facility] 02/27 12:03 Order name: PT-INR; Complete Time: 13:55 [facility] 02/27 12:03 Order name: Troponin (emerg Dept Use Only); Complete Time: 13:55 [facility] 02/27 12:03 Order name: CRP; Complete Time: 13:55 [facility] 02/27 12:03 Order name: Ferritin; Complete Time: 13:55 [facility] 02/27 12:03 Order name: D-Dimer; Complete Time: 13:55 [facility] 02/27 12:03 Order name: Blood Culture Adult (2) [facility] 02/27 12:03 Order name: Basic Metabolic Panel; Complete Time: 13:55 [facility] 02/27 12:03 Order name: CBC with Automated Diff; Complete Time: 13:22 [facility] 02/27 12:03 Order name: Liver (Hepatic) Function; Complete Time: 13:55 [facility] 02/27 12:03 Order name: XRAY Chest (1 view); Complete Time: 16:20 [facility] 02/27 13:18 Order name: Urine Dipstick-Ancillary; Complete Time: 13:22 [facility] 02/27 17:18 Order name: Glucose, Ancillary Testing [facility] 02/27 17:38 Order name: T4 Free [facility] 02/27 17:38 Order name: Thyroid Stimulating Hormone [facility] 02/27 17:49 Order name: Procalcitonin [facility] 02/27 21:29 Order name: Glucose, Ancillary Testing [facility] 02/28 05:39 Order name: CBC with Automated Diff [facility] 02/28 05:56 Order name: Comprehensive Metabolic Panel [facility] 02/28 05:56 Order name: Phosphorus [facility] 02/28 05:56 Order name: C-Reactive Protein [facility] 02/28 05:56 Order name: Magnesium [facility] 02/28 05:56 Order name: Ferritin [facility] 02/28 06:41 Order name: Hemoglobin A1c [facility] 02/28 07:56 Order name: Glucose, Ancillary Testing [facility] 02/28 11:37 Order name: Glucose, Ancillary Testing [facility] 02/27 12:03 Order name: EKG; Complete Time: 12:03 [facility] 02/27 12:03 Order name: Cardiac monitoring; Complete Time: 14:09 [facility] 02/27 12:03 Order name: EKG - Nurse/Tech; Complete Time: 15:53 [facility] 02/27 12:03 Order name: IV Saline Lock; Complete Time: 13:21 [facility] 02/27 12:03 Order name: Labs collected and sent; Complete Time: 13:21 [facility] 02/27 12:03 Order name: O2 Per Protocol; Complete Time: 13:21 [facility] 02/27 12:03 Order name: O2 Sat Monitoring; Complete Time: 13:21 [facility] 02/27 13:23 Order name: US Extremity Venous W Compression Efren; Complete Time: 16:20 [facility] 02/27 13:48 Order name: CONS Physician Consult [facility] EC:19 Rate is 98 beats/min. Rhythm is regular. QRS [place] is Normal. IA interval is normal. QRS manuela interval is normal. QT interval is normal. No Q waves. T waves are Normal. No ST changes noted. Clinical impression: NSR w/ Non-specific ST/T Changes and No evidence of ischemia. Interpreted by me. Reviewed by me. Administered Medications: 12:50 Drug: NS 0.9% 500 ml Route: IV; Rate: bolus; Site: right forearm; rb3 13:20 Follow up: IV Status: Completed infusion rb3 12:50 Drug: Tylenol 1000 mg Route: PO; rb3 13:45 Follow up: Response: No adverse reaction; Temperature is decreased; 99.1 rb3 12:50 Drug: Albuterol HFA Inhaler 4 puffs Route: Inhalation; rb3 12:52 Drug: Zofran (Ondansetron) 4 mg Route: IVP; Site: right forearm; rb3 13:11 Follow up: Response: No adverse reaction; Nausea is decreased rb3 13:10 Drug: Solu-CORTEF (hyrdoCORTISONE) 100 mg Route: IVP; Site: right forearm; rb3 13:30 Follow up: Response: No adverse reaction rb3 13:20 Drug: NS 0.9% 1000 ml Route: IV; Rate: 125 ml/hr; Site: right forearm; rb3 13:50 Drug: Zithromax (azithromycin) 500 mg Route: IVPB; Infused Over: 1 hrs; Site: right rb3 forearm; 14:48 Follow up: Response: No adverse reaction; IV Status: Completed infusion rb3 13:50 Drug: Pepcid (famotidine) 20 mg Route: IVP; Site: right forearm; rb3 14:10 Follow up: Response: No adverse reaction rb3 13:50 Drug: Lovenox (enoxaparin) 100 mg Route: Sub-Q; Site: abdomen; rb3 14:10 Follow up: Response: No adverse reaction rb3 13:50 Drug: Zinc Sulfate 220 mg Route: PO; rb3 14:20 Follow up: Response: No adverse reaction rb3 13:50 Drug: Vitamin D 4000 units Route: PO; rb3 14:30 Follow up: Response: No adverse reaction rb3 13:50 Drug: Vitamin C Chewable Tablet 500 mg Route: PO; rb3 14:30 Follow up: Response: No adverse reaction rb3 13:55 Drug: Decadron - Dexamethasone 6 mg Route: IVP; Site: right forearm; rb3 14:10 Follow up: Response: No adverse reaction rb3 16:50 Drug: Remdesivir 200 mg {Note: Had to wait for pharmacy to bring the medication..} rb3 Route: IV; Rate: per protocol; Site: right forearm; 17:40 Follow up: Response: No adverse reaction; IV Status: Completed infusion rb3 19:21 Not Given (Provider changed order): Vit B-Tperorprsjtea-Rvp-Calcium-D3 Powder 500 rb3 mg-500 mg-1,000 unit 2 packets Feeding Tube once Disposition Summary: 02/27/21 13:00 Hospitalization Ordered Hospitalization Status: Inpatient Admission manuela Condition: Fair manuela Problem: new manuela Symptoms: have improved manuela Bed/Room Type: Standard manuela Provider: Leonardo Mckoy(02/27/21 13:30) eb Location: Telemetry/MedSurg (Inpatient)(02/28/21 07:16) jaJosiah Room Assignment: [id number](02/28/21 07:16) wai Diagnosis - Pneumonia due to SARS-associated coronavirus manuela - Fever, unspecified manuela - Hypoxemia manuela - Type 2 diabetes mellitus with hyperglycemia manuela - Other obesity manuela Forms: - Medication Reconciliation Form manuela - SBAR form manuela Signatures: Dispatcher [employer] EDMarco Seaman MD MD cha Williams, Irene, RN Natalie Covarrubias RN RN Asad Staley RN RN ja1 Armida Ring Rebecca RN RN rb3 Corrections: (The following items were deleted from the chart) 13:30 13:00 Willie Galicia [facility] 23:10 13:00 Telemetry/MedSurg (Inpatient) [facility] 23:10 13:00 [facility] 02/28 07:16 08 23:10 [facility] ER HOLD ja1 02/28 07:16 02/27 23:10 ERHOLD- ja1
[2021-02-27 13:07] LABS: Absolute Lymphocytes (CBC) 0.8 K/uL (0.7-4.9); Basophils % 0.8 % (0-1.3); Hematocrit 43.1 % (36.0-45.0); Lymphocytes % 22.7 % (15.3-44.8); RBC Red Blood Cell Count 5.54 M/uL (3.86-4.86)
[2021-02-27 13:19] LABS: Urine Blood Negative (Negative); Urine Glucose Trace (Negative); Urine Protein 1+ (Negative); Urine Specific Gravity 1.015 (1.005-1.030)
[2021-02-27 13:20] LABS: Protime INR 1.11
[2021-02-27] MEDS ORDERED: ASCORBIC ACID 500 MG TABLET ONE ×3 (13:53→22:05)
[2021-02-27 13:54] LABS: ALT/SGPT 114 U/L (12-78); AST/SGOT 87 U/L (15-37); Albumin 2.9 g/dL (3.4-5.0); Alkaline Phosphatase 56 U/L (45-117); BUN Blood Urea Nitrogen 6 mg/dL (7-18); Bicarbonate 26 mmol/L (21-32); Bilirubin Direct 0.2 mg/dL (0-0.2); Bilirubin Total 0.5 mg/dL (0.2-1.0); Ferritin 647.2 ng/mL (8-388); Glucose Level 161 mg/dL (74-106); Magnesium 2.1 mg/dL (1.8-2.4); NT PRO-BNP 30 pg/mL (<125); Potassium 3.7 mmol/L (3.5-5.1); Protein, Total 7.3 g/dL (6.4-8.2); Sodium Level 138 mmol/L (136-145); Troponin (Emerg Dept Use Only) < 0.02 ng/mL (0.0-0.045)
[2021-02-27] MEDS ORDERED: ZINC SULFATE 220 MG CAP ONE (13:54)
[2021-02-27] MEDS ORDERED: FAMOTIDINE 20 MG/2 ML VIAL IV ONE (13:54)
[2021-02-27] MEDS ORDERED: ENOXAPARIN 100 MG/ML SYR SQ ONE (13:54)
[2021-02-27] MEDS ORDERED: VITAMIN D 1000 UNIT TAB ONE (13:54)
--- NOTE | 2021-02-27 13:59 | RAD REPORT ---
EXAM DESCRIPTION: RAD - Chest Single View - 02/27/2021 12:39 pm CLINICAL HISTORY: COUGH COMPARISON: Chest Single View dated 06/16/2020; Chest Single View dated 05/07/2020; Chest Single Vie w dated 03/06/2020; Chest Single View dated 01/07/2020 FINDINGS: Mild to moderate bilateral airspace disease which is new from prior. The heart size is wit hin normal limits.No acute osseous abnormality. No significant pleural effusions or pneumothorax. IMPRESSION: Mild to moderate airspace disease bilaterally concerning for multifocal pneumonia, inclu ding Covid-19.
[2021-02-27] MEDS ORDERED: dexAMETHasone 4 MG/ML VIAL ONE (14:03)
--- NOTE | 2021-02-27 14:24 | RAD REPORT ---
EXAM DESCRIPTION: US - Extrem Venous W Compress Efren - 02/27/2021 2:06 pm CLINICAL HISTORY: Bilateral leg pain COMPARISON: None. TECHNIQUE: Real-time sonographic evaluation of the bilateral lower extremity deep venous systems was performed. FINDINGS: Normal compressibility, flow augmentation, phasic flow and spontaneous flow is identified in both the left and right lower extremity deep venous systems. No intraluminal filling defects seen. IMPRESSION: No DVT in either lower extremity.
--- NOTE | 2021-02-27 15:04 | P.HP ---
Certification for Inpatient With expected LOS: >2 Midnights Patient will require the following post-hospital care: None Practitioner: I am a practitioner with admitting privileges, knowledge of patient current condition, hospital course, and medical plan of care. Services: Services provided to patient in accordance with Admission requirements found in Title 42 Section 412.3 of the Code of Federal Regulations <MorenoNilam - Last Filed: 02/27/21 18:20> Patient admitted to: Inpatient <Leonardo Mckoy - Last Filed: 02/27/21 23:00> Patient History Date of Service: 02/27/21 Primary Care Provider: Linnea Logan Reason for admission: covid pneumonia History of Present Illness: This is a 50 y/o F with asthma, IDDM, HTN, obesity, adrenal insufficiency, hypothyroidism, asthma who presents to ED for complaints of SOB, cough, fever, body aches, nausea x 9 days. Some relief with taking ibuprofen. Denies any chest pain, palpitations. She was diagnosed with covid19 on 02/23/19 at this ER. Feels like symptoms and shortness of breath have been worsening. EMS found patient to be hypoxic. Pt reports recent sick contacts, entire family is covid+. Pt and family members are not vaccinated. CXR: Mild to moderate airspace disease bilaterally concerning for multifocal pneumonia, including Covid-19. doppler: No DVT in either lower extremity. - Past Medical/Surgical History Diabetic: Yes -: anxiety -: hypothryroidism -: htn -: IDDM -: obese -: sublixation of spinal column -: scoliosis lower back -: asthma -: adrenal insufficiency -: left middle finger surgery -: tonsilectomy -: dnc 1984 -: Pituitary adenoma removed -: Cervical tumor removed Psychosocial/ Personal History: lives at home with and 2 kids - Family History Mother -: Hypertension, Diabetes Notes: DM2 mon -: Hypertension, Diabetes Notes: insulin dependent type two diabetes - Social History Smoking Status: Former smoker Alcohol use: No CD- Drugs: No Caffeine use: Yes <Nilam Moreno - Last Filed: 02/27/21 18:20> Date of Service: 02/27/21 <Leonardo Mckoy - Last Filed: 02/27/21 23:00> Allergies cephalexin [Cephalexin] Allergy (Intermediate, Verified 04/29/18 11:06) Hives clavulanic acid Allergy (Intermediate, Verified 03/23/19 14:20) Shortness of breath codeine [Codeine] Allergy (Intermediate, Verified 04/29/18 11:06) Hives iodine Allergy (Intermediate, Verified 04/29/18 11:06) Itching/Hives/Rash sulfamethoxazole [From Bactrim] Allergy (Intermediate, Verified 04/29/18 11:06) Anaphylaxis trimethoprim [From Bactrim] Allergy (Intermediate, Verified 04/29/18 11:06) Anaphylaxis amoxicillin Adverse Reaction (Verified 04/29/18 11:06) Anaphylaxis levofloxacin [From Levaquin] Adverse Reaction (Verified 04/29/18 11:06) Hives Home Medications: Levothyroxine Sodium [Unithroid] 88 mcg PO DAILY 03/19/15 Metformin HCl [Metformin HCl ER] 750 mg PO BID 12/18/16 glyBURIDE [Glyburide] 10 mg PO BID 04/29/18 Hydrocortisone [Cortef*] 10 mg PO BID 03/23/19 Losartan Potassium [Cozaar*] 50 mg PO DAILY 03/23/19 Mometasone/Formoterol [Dulera 200 Mcg/5 Mcg Inhaler] 2 puff IH BID #1 inhaler 03/24/19 Review of Systems 10-point ROS is otherwise unremarkable <Leonardo Mckoy - Last Filed: 02/27/21 23:00> Physical Examination - Studies Laboratory Data (last 24 hrs) 02/27/21 12:50: PT 12.8 H, INR 1.11 02/27/21 12:50: WBC 3.30 L, Hgb 14.2, Hct 43.1, Plt Count 191 02/27/21 12:50: Sodium 138, Potassium 3.7, BUN 6 L, Creatinine 0.61, Glucose 161 H, Magnesium 2.1, Total Bilirubin 0.5, AST 87 H, ALT 114 H, Alkaline Phosphatase 56 <Nilam Moreno - Last Filed: 02/27/21 18:20> - Studies Laboratory Data (last 24 hrs) 02/27/21 12:50: PT 12.8 H, INR 1.11 02/27/21 12:50: WBC 3.30 L, Hgb 14.2, Hct 43.1, Plt Count 191 02/27/21 12:50: Sodium 138, Potassium 3.7, BUN 6 L, Creatinine 0.61, Glucose 161 H, Magnesium 2.1, Total Bilirubin 0.5, AST 87 H, ALT 114 H, Alkaline Phosphatase 56 <Leonardo Mckoy - Last Filed: 02/27/21 23:00> Assessment and Plan Discharge Plan: Home Plan to discharge in: Greater than 2 days - Advance Directives Does patient have a Living Will: No Does patient have a Durable POA for Healthcare: No - Code Status/Comfort Care Code Status Assessed: Yes (full) Physician Review Additional Text: Physical exam: General: alert and orientedx3, cooperative HEENT: clear conjunctiva, EOMI Neck: supple Pulm: increased work of breathing, labored respirations, tachypneic CV: mildly tachycardic Abd: normal BS. NT/ND MSK: trace edema bilaterally Skin: warm Neuro: speaking normally, moving all extremities bilaterally Psych: normal affect Problem list: Acute hypoxic respiratory failure secondary to COVID-19 pneumonia complicated with obesity, unvaccinated adrenal insufficiency s/p pituitary adenoma removal hypothyroidism IDDM asthma Plan: -IV steroids, oral supplements, daily right saturations, room air saturations for home oxygen -Pt is on home hydrocortisone for adrenal insufficiency. 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
[2021-02-27] MEDS ORDERED: REMDESIVIR (EUA) 200 MG in NA CHLORIDE 0.9% 250 ML IV ONE (16:00)
[2021-02-27] MEDS: NA CHLORIDE 0.9% 1,000 ML IV SCH (16:11)
[2021-02-27] MEDS: INSULIN -REGULAR HUMAN 50 UNIT/0.5 ML ML SQ SCH ×2 (16:30→21:00)
[2021-02-27] MEDS: ASCORBIC ACID 500 MG TABLET PO SCH ×2 (17:00→21:00)
[2021-02-27 17:38] LABS: Thyroid Stimulating Hormone 0.846 uIU/mL (0.360-3.740)
[2021-02-27] MEDS ORDERED: INSULIN -REGULAR HUMAN 50 UNIT/0.5 ML ML ONE ×2 (18:52→22:06)
[2021-02-27] MEDS: IPRATROPIUM BROM 0.5MG/2.5ML NEB SCH (20:30)
[2021-02-27] MEDS ORDERED: IPRATROPIUM BROM 0.5MG/2.5ML ONE (20:45)
[2021-02-27] MEDS: METHYLPREDNISOLONE 125 MG INJ IV SCH (21:00)
[2021-02-27] MEDS: THIAMINE HCL 100 MG TABLET PO SCH (21:00)
[2021-02-27] MEDS ORDERED: METHYLPRED NA SUC 60 MG in NA CHLORIDE 0.9% 100 ML IV SCH (21:00)
[2021-02-27] MEDS: MELATONIN 5 MG TABLET PO SCH (21:00)
[2021-02-27] MEDS: FAMOTIDINE 20 MG TAB PO SCH (21:00)
[2021-02-27] MEDS ORDERED: METHYLPRED NA SUC 80 MG in NA CHLORIDE 0.9% 100 ML IV SCH (21:00)
[2021-02-27] MEDS ORDERED: METHYLPREDNISOLONE 125 MG INJ ONE (22:05)
[2021-02-27] MEDS ORDERED: FAMOTIDINE 20 MG TAB ONE (22:06)
[2021-02-27] MEDS ORDERED: MELATONIN 5 MG TABLET PO ONE (22:24)
[2021-02-27] MEDS ORDERED: GLUCAGON 1 MG/VIAL IM PRN (22:59)
[2021-02-27] MEDS ORDERED: D50W 25 GM/50 ML SYRINGE IV PRN (22:59)
[2021-02-28] MEDS ORDERED: NA CHLORIDE 0.9% 1,000 ML ONE ×2 (00:19→10:11)
[2021-02-28] MEDS: ACETAMINOPHEN 500 MG TAB PO PRN ×2 (00:39→09:59)
[2021-02-28] MEDS: NA CHLORIDE 0.9% 1,000 ML IV SCH ×3 (00:40→09:49)
[2021-02-28] MEDS ORDERED: ACETAMINOPHEN 500 MG TAB ONE ×2 (01:01→10:21)
[2021-02-28] MEDS: IPRATROPIUM BROM 0.5MG/2.5ML NEB SCH ×3 (03:00→14:00)
[2021-02-28] MEDS ORDERED: IPRATROPIUM BROM 0.5MG/2.5ML ONE ×2 (03:11→08:59)
[2021-02-28] MEDS: METHYLPREDNISOLONE 125 MG INJ IV SCH ×3 (04:28→20:28)
[2021-02-28] MEDS ORDERED: METHYLPREDNISOLONE 125 MG INJ ONE ×2 (04:49→12:25)
[2021-02-28 05:29] LABS: Absolute Lymphocytes (CBC) 0.6 K/uL (0.7-4.9); Basophils % 0.2 % (0-1.3); Hematocrit 41.9 % (36.0-45.0); Lymphocytes % 30.3 % (15.3-44.8); MPV 8.8 fL (7.6-11.3); RBC Red Blood Cell Count 5.32 M/uL (3.86-4.86)
[2021-02-28 05:56] LABS: ALT/SGPT 101 U/L (12-78); AST/SGOT 60 U/L (15-37); Albumin 2.7 g/dL (3.4-5.0); Alkaline Phosphatase 53 U/L (45-117); BUN Blood Urea Nitrogen 9 mg/dL (7-18); Bicarbonate 25 mmol/L (21-32); Bilirubin Total 0.5 mg/dL (0.2-1.0); Ferritin 620.5 ng/mL (8-388); Glucose Level 301 mg/dL (74-106); Magnesium 2.2 mg/dL (1.8-2.4); Phosphorus 3.2 mg/dL (2.5-4.9); Potassium 3.6 mmol/L (3.5-5.1); Protein, Total 6.9 g/dL (6.4-8.2); Sodium Level 138 mmol/L (136-145)
[2021-02-28] MEDS: FAMOTIDINE 20 MG TAB PO SCH ×2 (06:10→20:27)
[2021-02-28] MEDS ORDERED: FAMOTIDINE 20 MG TAB ONE (06:32)
[2021-02-28] MEDS ORDERED: VITAMIN D 1000 UNIT TAB ONE (07:58)
[2021-02-28] MEDS ORDERED: ZINC SULFATE 220 MG CAP ONE (07:58)
[2021-02-28] MEDS ORDERED: ENOXAPARIN 40 MG/0.4 ML SQ ONE (07:58)
[2021-02-28] MEDS ORDERED: ASCORBIC ACID 500 MG TABLET ONE ×2 (07:58→10:47)
[2021-02-28] MEDS ORDERED: THIAMINE HCL 100 MG TABLET ONE (07:58)
--- NOTE | 2021-02-28 08:36 | P.PN ---
Subjective Date of Service: 02/28/21 Primary Care Provider: Linnea Logan Chief Complaint: covid pneumonia Subjective: Improving (feels better today, more energy, had an episode of diarrhea this morning) <JoshNilam - Last Filed: 02/28/21 17:30> Date of Service: 02/28/21 <Leonardo Mckoy - Last Filed: 02/28/21 21:28> Review of Systems 10-point ROS is otherwise unremarkable <Nilam Moreno - Last Filed: 02/28/21 17:30> Physical Examination - Vital Signs Temperature: 97.9 F Blood Pressure: 124/78 Pulse: 79 Respirations: 28 Pulse Ox (%): 95 - Studies Laboratory Data (last 24 hrs) 02/27/21 12:50: PT 12.8 H, INR 1.11 02/27/21 12:50: WBC 3.30 L, Hgb 14.2, Hct 43.1, Plt Count 191 02/27/21 12:50: Sodium 138, Potassium 3.7, BUN 6 L, Creatinine 0.61, Glucose 161 H, Magnesium 2.1, Total Bilirubin 0.5, AST 87 H, ALT 114 H, Alkaline Phosphatase 56 <Nilam Moreno - Last Filed: 02/28/21 17:30> Assessment And Plan - Plan Physical exam: General: alert and orientedx3, pleasant HEENT: clear conjunctiva, EOMI Neck: supple Pulm: mildly labored respirations CV: normal rate Abd: NT/ND Neuro: speaking normally, moving all extremities bilaterally Psych: normal affect Problem list: Acute hypoxic respiratory failure secondary to COVID-19 pneumonia complicated with obesity, unvaccinated adrenal insufficiency s/p pituitary adenoma removal hypothyroidism IDDM asthma Plan: -Patient has improved clinically. If she continues to be stable/improves, possible discharge home tomorrow -IV steroids, oral supplements, daily right saturations, room air saturations for home oxygen -Pt is on home hydrocortisone for adrenal insufficiency. IV solu-medrol will cover -Start ivermectin -Pulmonology consulted -Mildly elevated inflammatory markers, continue to trend -VQ scan ordered to r/o PE -Will consult respiratory and social problems specialist to discharge patient with home oxygen -HgbA1c 9.7 -Pt reports home insulin 34 units NPH bid. Will increase long acting insulin to 25 units and switch mild SSI to moderate. 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 Plan of care discussed and agree as noted above. no need for VQ scan, will be anticoagulated regardless. restart home insulin, titrate as needed <Leonardo Mckoy - Last Filed: 02/28/21 21:28>
[2021-02-28] MEDS ORDERED: INSULIN -REGULAR HUMAN 50 UNIT/0.5 ML ML ONE ×2 (08:53→11:54)
[2021-02-28] MEDS ORDERED: INSULIN 70/30 100 UNITS/ML SQ ONE (08:53)
[2021-02-28] MEDS ORDERED: POTASSIUM CL SA 10 MEQ TAB PO ONE ×2 (09:00→09:32)
[2021-02-28] MEDS ORDERED: REMDESIVIR (EUA) 100 MG in NA CHLORIDE 0.9% 250 ML IV SCH (09:00)
[2021-02-28] MEDS: INSULIN -REGULAR HUMAN 50 UNIT/0.5 ML ML SQ SCH ×4 (09:01→20:29)
[2021-02-28] MEDS: INSULIN 70/30 100 UNITS/ML SQ SCH ×2 (09:02→16:31)
[2021-02-28] MEDS: VITAMIN D 1000 UNIT TAB PO SCH (09:03)
[2021-02-28] MEDS: ZINC SULFATE 220 MG CAP PO SCH (09:03)
[2021-02-28] MEDS: THIAMINE HCL 100 MG TABLET PO SCH ×2 (09:03→20:28)
[2021-02-28] MEDS: ASCORBIC ACID 500 MG TABLET PO SCH ×4 (09:04→20:28)
[2021-02-28] MEDS: ENOXAPARIN 40 MG/0.4 ML SQ SCH (09:04)
[2021-02-28] MEDS: IVERMECTIN 3 MG TABLET PO SCH (09:04)
[2021-02-28] MEDS ORDERED: METHYLPREDNISOLONE 40 MG INJ ONE (10:47)
--- NOTE | 2021-02-28 16:23 | P.CNS ---
Date of Consult: 02/28/21 Reason for Consult: COVID penumonia Primary Care Provider: Linnea Logan Chief Complaint: covid pneumonia History of Present Illness: Age 50 metabloic brown AW COVID penumonia and hypoxemia Allergies cephalexin [Cephalexin] Allergy (Intermediate, Verified 04/29/18 11:06) Hives clavulanic acid Allergy (Intermediate, Verified 03/23/19 14:20) Shortness of breath codeine [Codeine] Allergy (Intermediate, Verified 04/29/18 11:06) Hives iodine Allergy (Intermediate, Verified 04/29/18 11:06) Itching/Hives/Rash sulfamethoxazole [From Bactrim] Allergy (Intermediate, Verified 04/29/18 11:06) Anaphylaxis trimethoprim [From Bactrim] Allergy (Intermediate, Verified 04/29/18 11:06) Anaphylaxis amoxicillin Adverse Reaction (Verified 04/29/18 11:06) Anaphylaxis levofloxacin [From Levaquin] Adverse Reaction (Verified 04/29/18 11:06) Hives Home Medications: Metformin HCl [Metformin HCl ER] 1,000 mg PO BID 12/18/16 glyBURIDE [Glyburide] 5 mg PO BID 04/29/18 Hydrocortisone [Cortef*] 30 mg PO BID 03/23/19 Losartan Potassium [Cozaar*] 100 mg PO DAILY 03/23/19 Levothyroxine [Synthroid*] 1 tab PO DAILY 02/28/21 NPH, Human Insulin Isophane [Humulin N] 34 unit SQ BID 02/28/21 - Past Medical/Surgical History Diabetic: Yes -: anxiety -: hypothryroidism -: htn -: IDDM -: obese -: sublixation of spinal column -: scoliosis lower back -: asthma -: adrenal insufficiency -: left middle finger surgery -: tonsilectomy -: dnc 1984 -: Pituitary adenoma removed -: Cervical tumor removed Psychosocial/ Personal History: lives at home with and 2 kids - Family History Mother Medical History: Hypertension, Diabetes Notes: DM2 mon Medical History: Hypertension, Diabetes Notes: insulin dependent type two diabetes - Social History Smoking Status: Unknown if ever smoked Alcohol use: No CD- Drugs: No Caffeine use: Yes Place of Residence: Home Review of Systems General: Weakness Respiratory: Shortness of Breath Physical Examination Temp Pulse Resp BP Pulse Ox 97.9 F 79 28 H 124/78 95 02/28/21 15:40 02/28/21 15:40 02/28/21 15:40 02/28/21 15:40 02/28/21 15:40 General: Alert, Oriented x3, Cooperative - Problems (1) Pneumonia due to COVID-19 virus Current Visit: Yes Status: Acute Plan: Age 50 AW COVID penumonia/ Stabel on NC abnormal LFT. Min ILD/poss Dc AM onpred and aspirin
[2021-02-28] MEDS: BENZONATATE 100 MG CAP PO PRN (18:09)
[2021-02-28] MEDS: MELATONIN 5 MG TABLET PO SCH (20:28)
[2021-02-28] MEDS: GUAIFENESIN/DM 5 ML UCUP PO PRN (22:07)
[2021-03-01] MEDS: BENZONATATE 100 MG CAP PO PRN ×2 (03:20→16:08)
[2021-03-01] MEDS: ALBUTEROL 2.5 MG/3 ML NEB SOL NEB PRN ×2 (03:40→20:51)
[2021-03-01] MEDS: METHYLPREDNISOLONE 125 MG INJ IV SCH ×3 (04:29→19:17)
[2021-03-01] MEDS: GUAIFENESIN/DM 5 ML UCUP PO PRN ×3 (05:44→19:17)
[2021-03-01] MEDS: LEVOTHYROXINE SOD 0.125 MG TAB PO SCH (07:13)
[2021-03-01 07:55] LABS: Albumin 2.8 g/dL (3.4-5.0); Bilirubin Total 0.4 mg/dL (0.2-1.0); C-Reactive Protein 16.4 mg/L (<3.00); Ferritin 639.3 ng/mL (8-388); Protein, Total 6.9 g/dL (6.4-8.2)
[2021-03-01 07:56] LABS: Potassium 4.5 mmol/L (3.5-5.1)
[2021-03-01] MEDS: INSULIN 70/30 100 UNITS/ML SQ SCH ×2 (08:18→16:30)
[2021-03-01] MEDS: INSULIN -REGULAR HUMAN 50 UNIT/0.5 ML ML SQ SCH ×4 (08:18→20:29)
[2021-03-01] MEDS: FAMOTIDINE 20 MG TAB PO SCH ×2 (08:19→19:15)
[2021-03-01] MEDS: ASCORBIC ACID 500 MG TABLET PO SCH ×4 (08:19→19:15)
[2021-03-01] MEDS: THIAMINE HCL 100 MG TABLET PO SCH ×2 (08:19→19:17)
[2021-03-01] MEDS: ENOXAPARIN 40 MG/0.4 ML SQ SCH (08:19)
[2021-03-01] MEDS: VITAMIN D 1000 UNIT TAB PO SCH (08:19)
[2021-03-01] MEDS: ZINC SULFATE 220 MG CAP PO SCH (08:19)
[2021-03-01 08:21] LABS: Absolute Lymphocytes (CBC) 0.6 K/uL (0.7-4.9); Basophils % 0.1 % (0-1.3); Hematocrit 40.2 % (36.0-45.0); Lymphocytes % 8.9 % (15.3-44.8); MPV 8.9 fL (7.6-11.3); RBC Red Blood Cell Count 5.15 M/uL (3.86-4.86)
[2021-03-01 09:35] LABS: Blood Morphology Comment NOT SEEN (NOT SEEN); Platelet Estimate ADEQ
--- NOTE | 2021-03-01 12:33 | RAD REPORT ---
EXAM DESCRIPTION: RAD - Chest Single View - 03/01/2021 12:21 pm CLINICAL HISTORY: Shortness of breath COMPARISON: February 27 TECHNIQUE: AP portable chest image was obtained 03/01/2021 12:21 pm . FINDINGS: Extensive airspace opacification is present in the right hemithorax substantially progress priyanka from the February 27 imaging. There has been progression in the left lung field to a lesser degree. In the acute clinical setting, bilateral COVID-19 pneumonia would be the primary consideration. Heart and vasculature are normal. No measurable pleural effusion and no pneumothorax. No acute bony abnorm ality seen. No acute aortic findings suspected. IMPRESSION: Significant worsening of the bilateral COVID-19 pneumonia since February 27 imaging.
--- NOTE | 2021-03-01 13:35 | P.PN ---
Subjective Date of Service: 03/01/21 Primary Care Provider: Linnea Logan Chief Complaint: covid pneumonia Subjective: Worsening Condition deteriorated/ more Hypoxic Review of Systems Respiratory: Shortness of Breath Physical Examination - Vital Signs Temperature: 97.5 F Blood Pressure: 136/84 Pulse: 88 Respirations: 24 Pulse Ox (%): 90 - Physical Exam General: Alert, Moderate distress Assessment & Plan - Problems (Diagnosis) (1) Pneumonia due to COVID-19 virus Current Visit: Yes Status: Acute Plan: Worsening resp failure / Actemra / HF or BIPAP/cancel VQ
[2021-03-01] MEDS: REMDESIVIR (EUA) 100 MG in NA CHLORIDE 0.9% 250 ML IV SCH (15:10)
[2021-03-01] MEDS: RIVAROXABAN 20 MG TABLET PO SCH (16:09)
--- NOTE | 2021-03-01 17:47 | P.PN ---
Subjective Date of Service: 03/01/21 Primary Care Provider: Linnea Logan Chief Complaint: covid pneumonia Patient clinical condition is worse. She is now requiring high-flow oxygen. Blood sugars elevated. Physical Examination - Vital Signs Temperature: 98 F Blood Pressure: 127/68 Pulse: 94 Respirations: 26 Pulse Ox (%): 85 - Physical Exam General: In no apparent distress HEENT: Other (High-flow oxygen) Neck: JVD not distended Respiratory: Diminished, Other (Mild respiratory distress) Cardiovascular: No edema, Regular rate/rhythm, Normal S1 S2 Gastrointestinal: Soft and benign, Non-distended Musculoskeletal: No swelling Integumentary: No rashes Neurological: Normal strength at 5/5 x4 extr Assessment And Plan Physician Review Additional Text: Problem list: Acute hypoxic respiratory failure secondary to COVID-19 pneumonia complicated with obesity, unvaccinated adrenal insufficiency s/p pituitary adenoma removal hypothyroidism IDDM asthma Plan: -continue IV steroids, oral supplements, daily right saturations, room air saturations for home oxygen -Pt is on home hydrocortisone for adrenal insufficiency. IV solu-medrol will cover -On ivermectin -Pulmonology input appreciated. -patient started on Remdesivir -monitor inflammatory markers. -patient is hyperglycemic. Will manage blood sugar with insulin sliding scale and NPH. Titrate NPH insulin -wean oxygen as tolerated. -DVT prophylaxis with Xarelto. DVT PPX: Lovenox Code status: Full
[2021-03-01] MEDS: MELATONIN 5 MG TABLET PO SCH (19:16)
[2021-03-02] MEDS: METHYLPREDNISOLONE 125 MG INJ IV SCH ×3 (04:06→21:00)
[2021-03-02 07:02] LABS: Absolute Lymphocytes (CBC) 0.6 K/uL (0.7-4.9); Basophils % 0.1 % (0-1.3); Hematocrit 40.8 % (36.0-45.0); Lymphocytes % 8.8 % (15.3-44.8); MPV 8.6 fL (7.6-11.3); RBC Red Blood Cell Count 5.25 M/uL (3.86-4.86)
[2021-03-02 07:16] LABS: ALT/SGPT 75 U/L (12-78); AST/SGOT 40 U/L (15-37); Albumin 2.6 g/dL (3.4-5.0); Alkaline Phosphatase 65 U/L (45-117); BUN Blood Urea Nitrogen 13 mg/dL (7-18); Bicarbonate 26 mmol/L (21-32); Bilirubin Total 0.5 mg/dL (0.2-1.0); C-Reactive Protein 8.32 mg/L (<3.00); Ferritin 525.6 ng/mL (8-388); Glucose Level 268 mg/dL (74-106); Potassium 4.2 mmol/L (3.5-5.1); Protein, Total 6.9 g/dL (6.4-8.2); Sodium Level 140 mmol/L (136-145)
[2021-03-02] MEDS: INSULIN -REGULAR HUMAN 50 UNIT/0.5 ML ML SQ SCH ×4 (07:40→21:01)
[2021-03-02] MEDS: INSULIN 70/30 100 UNITS/ML SQ SCH ×2 (07:41→16:28)
[2021-03-02] MEDS: LEVOTHYROXINE SOD 0.125 MG TAB PO SCH (07:42)
[2021-03-02] MEDS: VITAMIN D 1000 UNIT TAB PO SCH (07:42)
[2021-03-02] MEDS: THIAMINE HCL 100 MG TABLET PO SCH ×2 (07:43→21:00)
[2021-03-02] MEDS: FAMOTIDINE 20 MG TAB PO SCH ×2 (07:43→21:00)
[2021-03-02] MEDS: ZINC SULFATE 220 MG CAP PO SCH (07:43)
[2021-03-02] MEDS: ASCORBIC ACID 500 MG TABLET PO SCH ×4 (07:43→21:00)
[2021-03-02] MEDS: IVERMECTIN 3 MG TABLET PO SCH (07:43)
[2021-03-02] MEDS: GUAIFENESIN/DM 5 ML UCUP PO PRN ×2 (07:44→16:29)
[2021-03-02] MEDS: REMDESIVIR (EUA) 100 MG in NA CHLORIDE 0.9% 250 ML IV SCH (08:30)
[2021-03-02] MEDS: BENZONATATE 100 MG CAP PO PRN (11:50)
--- NOTE | 2021-03-02 16:18 | P.PN ---
Subjective Date of Service: 03/02/21 Primary Care Provider: Linnea Logan Chief Complaint: covid pneumonia Patient is now requiring BiPAP. She is stable and comfortable on the BIPAP Physical Examination - Vital Signs Temperature: 97.2 F Blood Pressure: 149/71 Pulse: 89 Respirations: 31 Pulse Ox (%): 92 - Physical Exam General: Alert, In no apparent distress HEENT: Other (BiPAP) Respiratory: Other (Nonlabored breathing) Cardiovascular: Regular rate/rhythm, Normal S1 S2 Gastrointestinal: Soft and benign, Non-distended Musculoskeletal: No swelling Integumentary: No rashes Neurological: Normal strength at 5/5 x4 extr Assessment And Plan Physician Review Additional Text: Problem list: Acute hypoxic respiratory failure secondary to COVID-19 pneumonia complicated with obesity, unvaccinated adrenal insufficiency s/p pituitary adenoma removal hypothyroidism IDDM asthma Plan: -continue IV steroids, oral supplements. -Pt is on home hydrocortisone for adrenal insufficiency. -On ivermectin -Pulmonology input appreciated. -continue Remdesivir -monitor inflammatory markers. -continue insulin sliding scale and NPH insulin. Titrate NPH insulin -patient is high risk for thromboembolism -DVT prophylaxis with Xarelto. DVT PPX: Lovenox Code status: Full
[2021-03-02] MEDS: RIVAROXABAN 20 MG TABLET PO SCH (16:29)
[2021-03-02] MEDS: MELATONIN 5 MG TABLET PO SCH (21:00)
[2021-03-03] MEDS: GUAIFENESIN/DM 5 ML UCUP PO PRN (02:53)
[2021-03-03] MEDS: METHYLPREDNISOLONE 125 MG INJ IV SCH ×3 (05:17→20:37)
[2021-03-03 06:17] LABS: Absolute Lymphocytes (CBC) 0.5 K/uL (0.7-4.9); Basophils % 0.2 % (0-1.3); Hematocrit 41.1 % (36.0-45.0); Lymphocytes % 7.7 % (15.3-44.8); MPV 8.6 fL (7.6-11.3); RBC Red Blood Cell Count 5.26 M/uL (3.86-4.86)
[2021-03-03 06:29] LABS: ALT/SGPT 76 U/L (12-78); AST/SGOT 44 U/L (15-37); Albumin 2.6 g/dL (3.4-5.0); Alkaline Phosphatase 75 U/L (45-117); BUN Blood Urea Nitrogen 16 mg/dL (7-18); Bicarbonate 28 mmol/L (21-32); Bilirubin Total 0.6 mg/dL (0.2-1.0); Glucose Level 306 mg/dL (74-106); Potassium 4.3 mmol/L (3.5-5.1); Protein, Total 6.5 g/dL (6.4-8.2); Sodium Level 142 mmol/L (136-145)
[2021-03-03] MEDS: INSULIN -REGULAR HUMAN 50 UNIT/0.5 ML ML SQ SCH ×4 (07:30→20:38)
[2021-03-03] MEDS: FAMOTIDINE 20 MG TAB PO SCH ×2 (07:58→20:37)
[2021-03-03] MEDS: THIAMINE HCL 100 MG TABLET PO SCH ×2 (07:58→20:37)
[2021-03-03] MEDS: VITAMIN D 1000 UNIT TAB PO SCH (07:58)
[2021-03-03] MEDS: ZINC SULFATE 220 MG CAP PO SCH (07:58)
[2021-03-03] MEDS: INSULIN 70/30 100 UNITS/ML SQ SCH ×2 (07:59→16:30)
[2021-03-03] MEDS: ASCORBIC ACID 500 MG TABLET PO SCH ×4 (07:59→20:37)
[2021-03-03] MEDS: LEVOTHYROXINE SOD 0.125 MG TAB PO SCH (08:02)
[2021-03-03] MEDS: REMDESIVIR (EUA) 100 MG in NA CHLORIDE 0.9% 250 ML IV SCH (09:45)
--- NOTE | 2021-03-03 11:36 | P.PN ---
Subjective Date of Service: 03/03/21 Primary Care Provider: Linnea Logan Chief Complaint: covid pneumonia feels more SOB today. denies any n/v/d. Review of Systems 10-point ROS is otherwise unremarkable Physical Examination - Vital Signs Temperature: 98 F Blood Pressure: 134/72 Pulse: 101 Respirations: 35 Pulse Ox (%): 85 Assessment And Plan - Plan Physical exam: General: alert and orientedx3 HEENT: clear conjunctiva, EOMI Skin: warm Pulm: labored respirations, on BIPAP CV: mildly tachycardic Abd: NT/ND Neuro: speaking normally, moving all extremities bilaterally Problem list: Acute hypoxic respiratory failure secondary to COVID-19 pneumonia complicated with obesity, unvaccinated adrenal insufficiency s/p pituitary adenoma removal hypothyroidism IDDM asthma Plan: -Continue IV steroids, oral supplements. -Pt is on home hydrocortisone for adrenal insufficiency. -Ivermectin completed -Pulmonology input appreciated. -Continue Remdesivir -Monitor inflammatory markers. -Continue insulin sliding scale and NPH insulin. Titrate NPH insulin -Patient is high risk for thromboembolism -DVT prophylaxis with Xarelto. 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
[2021-03-03] MEDS: RIVAROXABAN 20 MG TABLET PO SCH (17:08)
[2021-03-03] MEDS: ONDANSETRON 4 MG/2 ML VIAL IV PRN (19:25)
[2021-03-03] MEDS: MELATONIN 5 MG TABLET PO SCH (20:37)
[2021-03-03] MEDS: BENZONATATE 100 MG CAP PO PRN (21:01)
[2021-03-03] MEDS: ACETAMINOPHEN 500 MG TAB PO PRN (21:01)
[2021-03-04 04:31] LABS: C-Reactive Protein 14.7 mg/L (<3.00); Ferritin 403.8 ng/mL (8-388)
[2021-03-04] MEDS: METHYLPREDNISOLONE 125 MG INJ IV SCH ×3 (04:31→20:41)
[2021-03-04] MEDS: GUAIFENESIN/DM 5 ML UCUP PO PRN ×3 (04:31→18:27)
[2021-03-04 05:49] LABS: Urine Appearance CLEAR (Clear); Urine Bilirubin NEGATIVE (Negative); Urine Blood NEGATIVE (Negative); Urine Color DK YELLOW (Yellow); Urine Glucose 1+ (Negative); Urine Protein 1+ (Negative); Urine Specific Gravity 1.025 (1.005-1.030)
[2021-03-04 06:04] LABS: Urine Microscopic Reflex ORDER UMIC
[2021-03-04 06:05] LABS: Urine Bacteria >50 /HPF (<20); Urine Mucus 1+ /HPF (NONE SEEN); Urine RBC <5 /HPF (NONE SEEN); Urine Yeast MANY (NONE SEEN)
[2021-03-04 08:00] LABS: Albumin 2.5 g/dL (3.4-5.0); Bilirubin Direct 0.3 mg/dL (0-0.2); Bilirubin Total 0.7 mg/dL (0.2-1.0); Protein, Total 6.2 g/dL (6.4-8.2)
[2021-03-04] MEDS: FAMOTIDINE 20 MG TAB PO SCH ×2 (08:09→20:42)
[2021-03-04] MEDS: VITAMIN D 1000 UNIT TAB PO SCH (08:09)
[2021-03-04] MEDS: THIAMINE HCL 100 MG TABLET PO SCH ×2 (08:09→20:41)
[2021-03-04] MEDS: LEVOTHYROXINE SOD 0.125 MG TAB PO SCH (08:10)
[2021-03-04] MEDS: INSULIN 70/30 100 UNITS/ML SQ SCH ×2 (08:10→17:08)
[2021-03-04] MEDS: INSULIN -REGULAR HUMAN 50 UNIT/0.5 ML ML SQ SCH ×4 (08:10→20:41)
[2021-03-04] MEDS: ASCORBIC ACID 500 MG TABLET PO SCH ×4 (08:10→20:42)
[2021-03-04] MEDS: ZINC SULFATE 220 MG CAP PO SCH (08:10)
[2021-03-04] MEDS: REMDESIVIR (EUA) 100 MG in NA CHLORIDE 0.9% 250 ML IV SCH (08:35)
[2021-03-04] MEDS ORDERED: SUCRALFATE 1 GM TABLET PO ONE (10:00)
--- NOTE | 2021-03-04 11:24 | RAD REPORT ---
EXAM DESCRIPTION: RAD - Abdomen 1 View (KUB) - 03/04/2021 11:15 am CLINICAL HISTORY: Abd pain Pain COMPARISON: Chest Single View dated 03/01/2021 FINDINGS: The bowel gas pattern is non-obstructive. No evidence of free air or pneumatosis. No suspi cious calcifications. No significant bony findings. Moderate pulmonary opacities are present bilaterally mildly improved since comparative radiograph. IMPRESSION: No acute abdominal abnormality seen.
[2021-03-04] MEDS: BENZONATATE 100 MG CAP PO PRN (12:00)
[2021-03-04] MEDS ORDERED: ALPRAZOLAM 0.5 MG TABLET PO PRN (12:50)
--- NOTE | 2021-03-04 13:05 | P.PN ---
Subjective Date of Service: 03/04/21 Primary Care Provider: Linnea Logan Chief Complaint: covid pneumonia Patient is complaining of epigastric pain. He is requiring high FiO2 on the BiPAP. She appears anxious. Physical Examination - Vital Signs Temperature: 97.3 F Blood Pressure: 156/75 Pulse: 92 Respirations: 33 Pulse Ox (%): 91 - Physical Exam General: Mild distress (Due to pain) HEENT: Other (BiPAP) Respiratory: Other (Nonlabored breathing) Cardiovascular: Regular rate/rhythm, Normal S1 S2 Gastrointestinal: Soft and benign, Non-distended, Tenderness (Epigastrium) Musculoskeletal: No swelling Integumentary: No rashes Neurological: Normal strength at 5/5 x4 extr Assessment And Plan Physician Review Additional Text: Problem list: Acute hypoxic respiratory failure secondary to COVID-19 pneumonia complicated with obesity, unvaccinated adrenal insufficiency s/p pituitary adenoma removal hypothyroidism IDDM asthma Gastritis Anxiety Plan: -continue IV steroids, oral supplements. -Pt is on home hydrocortisone for adrenal insufficiency. -On ivermectin -Pulmonology input appreciated. -continue Remdesivir -monitor inflammatory markers. -continue insulin sliding scale and NPH insulin. Titrate NPH insulin. -sucralfate and Pepcid for gastritis. -patient is high risk for thromboembolism -DVT prophylaxis with Xarelto. -Xanax p.r.n. for anxiety DVT PPX: Lovenox Code status: Full
[2021-03-04] MEDS: SUCRALFATE 1 GM TABLET PO SCH ×3 (13:41→20:41)
[2021-03-04] MEDS ORDERED: ENSURE HIGH PROTEIN 237 ML CAN PO PRN (16:42)
[2021-03-04] MEDS: RIVAROXABAN 20 MG TABLET PO SCH (17:08)
--- NOTE | 2021-03-04 19:07 | P.PN ---
Subjective Date of Service: 03/04/21 Primary Care Provider: Linnea Logan Chief Complaint: covid pneumonia Subjective: Worsening Not doign well O2 req have increased Review of Systems Respiratory: Shortness of Breath Physical Examination - Vital Signs Temperature: 97.8 F Blood Pressure: 131/65 Pulse: 87 Respirations: 38 Pulse Ox (%): 95 - Studies Microbiology Data (last 24 hrs): 02/27/21 13:06 Blood - Blood Aerobic Blood Culture - Final No growth in 5 days. 02/27/21 13:06 Blood - Blood Anaerobic Blood Culture - Final No growth in 5 days. 02/27/21 12:50 Blood - Blood Aerobic Blood Culture - Final No growth in 5 days. 02/27/21 12:50 Blood - Blood Anaerobic Blood Culture - Final No growth in 5 days. Assessment & Plan - Problems (Diagnosis) (1) Pneumonia due to COVID-19 virus Current Visit: Yes Status: Acute Plan: Resp failure worsening/CRP low / CW steroids cxry/ Not eating Dobhoff/ Add LD lasix/cxry
[2021-03-04] MEDS ORDERED: LORazepam 2 MG/ML VIAL IV ONE (20:28)
[2021-03-04] MEDS: MELATONIN 5 MG TABLET PO SCH (20:42)
--- NOTE | 2021-03-04 22:02 | RAD REPORT ---
EXAM DESCRIPTION: RAD - Chest Single View - 03/04/2021 9:55 pm CLINICAL HISTORY: dobhoff placement COMPARISON: Abdomen 1 View (KUB) dated 03/04/2021; Chest Single View dated 03/01/2021; Chest Single Vi ew dated 02/27/2021; Chest Single View dated 06/16/2020 FINDINGS: The weighted feeding tube tip overlies the stomach and is in satisfactory position. The porfirio wel gas pattern is nonobstructive. Multifocal airspace disease again noted. IMPRESSION: Weighted feeding tube tip overlying the stomach in satisfactory position.
[2021-03-05] MEDS: ONDANSETRON 4 MG/2 ML VIAL IV PRN ×2 (04:18→09:12)
[2021-03-05] MEDS: METHYLPREDNISOLONE 125 MG INJ IV SCH ×3 (04:31→21:51)
[2021-03-05 06:44] LABS: Absolute Lymphocytes (CBC) 0.3 K/uL (0.7-4.9); Basophils % 0.2 % (0-1.3); Hematocrit 41.2 % (36.0-45.0); Lymphocytes % 4.3 % (15.3-44.8); MPV 9.1 fL (7.6-11.3); RBC Red Blood Cell Count 5.27 M/uL (3.86-4.86)
[2021-03-05 07:14] LABS: ALT/SGPT 51 U/L (12-78); AST/SGOT 27 U/L (15-37); Albumin 2.2 g/dL (3.4-5.0); Alkaline Phosphatase 81 U/L (45-117); BUN Blood Urea Nitrogen 16 mg/dL (7-18); Bicarbonate 30 mmol/L (21-32); Bilirubin Total 0.8 mg/dL (0.2-1.0); Glucose Level 129 mg/dL (74-106); Potassium 4.3 mmol/L (3.5-5.1); Protein, Total 5.9 g/dL (6.4-8.2); Sodium Level 143 mmol/L (136-145)
[2021-03-05] MEDS: INSULIN 70/30 100 UNITS/ML SQ SCH ×2 (07:30→16:30)
[2021-03-05] MEDS: INSULIN -REGULAR HUMAN 50 UNIT/0.5 ML ML SQ SCH ×3 (07:30→17:08)
[2021-03-05] MEDS: LEVOTHYROXINE SOD 0.125 MG TAB PO SCH (08:30)
--- NOTE | 2021-03-05 08:32 | RAD REPORT ---
EXAM DESCRIPTION: RAD - Chest Single View - 03/05/2021 5:40 am CLINICAL HISTORY: resp failure, COVID-19 COMPARISON: Portable March 01 TECHNIQUE: AP portable chest image was obtained 03/05/2021 5:40 am . FINDINGS: Inspiratory effort is improved compared March 01. There remains substantial bilateral COV ID-19 airspace disease. Right upper lobe has shown improved aeration. Significant right base pneumoni a remains. Left lung field is not substantially different. Trachea is midline. Feeding tube is in place extending below the diaphragm, off the field of view. He art and vasculature are normal. No measurable pleural effusion and no pneumothorax. No acute bony abn ormality seen. No acute aortic findings suspected. IMPRESSION: Bilateral COVID-19 pneumonia findings are present. Patient has partially cleared the rig ht upper lobe pneumonia findings.
[2021-03-05] MEDS: THIAMINE HCL 100 MG TABLET PO SCH ×2 (08:37→21:51)
[2021-03-05] MEDS: VITAMIN D 1000 UNIT TAB PO SCH (08:37)
[2021-03-05] MEDS: FUROSEMIDE 20 MG TABLET PO SCH (08:37)
[2021-03-05] MEDS: FAMOTIDINE 20 MG TAB PO SCH ×2 (08:37→21:52)
[2021-03-05] MEDS: ASCORBIC ACID 500 MG TABLET PO SCH ×4 (08:37→21:51)
[2021-03-05] MEDS: SUCRALFATE 1 GM TABLET PO SCH ×4 (08:37→21:51)
[2021-03-05] MEDS: ZINC SULFATE 220 MG CAP PO SCH (08:38)
[2021-03-05 08:47] LABS: Blood Morphology Comment NOT SEEN (NOT SEEN); Platelet Estimate DECR; White Blood Cell Scan OK (OK)
[2021-03-05] MEDS ORDERED: ASPIRIN EC 81 MG TAB PO SCH (09:00)
[2021-03-05] MEDS ORDERED: MORPHINE 2 MG/ML SYR IV ONE (11:19)
[2021-03-05] MEDS ORDERED: propofoL 1,000 MG/100 ML VIAL IV ONE (12:20)
[2021-03-05] MEDS ORDERED: RSI MEDICATION KIT IV ONE (12:20)
[2021-03-05] MEDS ORDERED: NA CHLORIDE 0.9% 1,000 ML ONE (12:22)
[2021-03-05] MEDS ORDERED: CISATRACURIUM INJECTION 2 MG/ML (10 ML Vial) IV ONE (12:32)
[2021-03-05] MEDS ORDERED: LORazepam 2 MG/ML VIAL IV PRN (12:34)
[2021-03-05] MEDS ORDERED: HALOPERIDOL LACT 5 MG/ML INJ IV PRN (12:34)
--- NOTE | 2021-03-05 12:58 | RAD REPORT ---
EXAM DESCRIPTION: RAD - Chest Single View - 03/05/2021 12:37 pm CLINICAL HISTORY: s/p intubation COMPARISON: March 05 TECHNIQUE: AP portable chest image was obtained 03/05/2021 12:37 pm . FINDINGS: Endotracheal tube has been placed. Tip is mid aortic arch level 3 cm above the kate, goo d position. Feeding tube remains in place below the diaphragm and off the field of view. Extensive bilateral airs pace opacification is present similar to earlier imaging. No pneumothorax identified. IMPRESSION: ET tube is in good position, mid aortic arch level, 3 cm above the kate. Bilateral lung field opacification similar to comparison.
[2021-03-05] MEDS ORDERED: HYDROMORPHONE HCL 0.5 MG/0.5 ML INJ IV PRN (13:26)
[2021-03-05] MEDS ORDERED: NOREPINEPHRINE 4 MG in D5W 250 ML IV PRN (13:26)
[2021-03-05] MEDS ORDERED: CISATRACURIUM BESYLATE 40 MG in NA CHLORIDE 0.9% 80 ML IV PRN (13:31)
[2021-03-05] MEDS: propofoL 1,000 MG/100 ML VIAL IV PRN ×4 (13:39→21:12)
[2021-03-05] MEDS ORDERED: NOREPINEPHRINE 16 MG in D5W 250 ML IV PRN (14:25)
[2021-03-05] MEDS ORDERED: CISATRACURIUM BESYLATE IV PRN (14:26)
[2021-03-05] MEDS ORDERED: NA CHLORIDE 0.9% IV PRN (14:26)
[2021-03-05] MEDS ORDERED: SUCCINYLCHOLINE 20 MG/ML (10 ML) IV ONE (15:35)
[2021-03-05] MEDS: CISATRACURIUM BESYLATE IV PRN ×2 (16:21→21:35)
[2021-03-05] MEDS: NA CHLORIDE 0.9% IV PRN ×2 (16:21→21:35)
[2021-03-05] MEDS: RIVAROXABAN 20 MG TABLET PO SCH (17:09)
[2021-03-05 18:23] LABS: Arterial Blood Carboxyhemoglob 0.9 % (0-1.5); Blood Gas Oxyhemoglobin 83.3 % (94-97); Blood O2 Saturation 84.8 % (92-98.5)
[2021-03-05] MEDS: MELATONIN 5 MG TABLET PO SCH (21:51)
[2021-03-06] MEDS: propofoL 1,000 MG/100 ML VIAL IV PRN ×8 (00:19→22:30)
[2021-03-06] MEDS: INSULIN -REGULAR HUMAN 50 UNIT/0.5 ML ML SQ SCH ×4 (01:15→17:13)
[2021-03-06] MEDS: METHYLPREDNISOLONE 125 MG INJ IV SCH ×3 (05:03→20:57)
[2021-03-06 05:11] LABS: Absolute Lymphocytes (CBC) 0.4 K/uL (0.7-4.9); Basophils % 0.1 % (0-1.3); Lymphocytes % 6.7 % (15.3-44.8); MPV 9.8 fL (7.6-11.3); RBC Red Blood Cell Count 4.91 M/uL (3.86-4.86)
[2021-03-06 05:57] LABS: C-Reactive Protein 81.9 mg/L (<3.00)
[2021-03-06 06:00] LABS: ALT/SGPT 51 U/L (12-78); AST/SGOT 28 U/L (15-37); Albumin 2.1 g/dL (3.4-5.0); Alkaline Phosphatase 67 U/L (45-117); BUN Blood Urea Nitrogen 17 mg/dL (7-18); Bicarbonate 30 mmol/L (21-32); Bilirubin Total 0.8 mg/dL (0.2-1.0); Glucose Level 283 mg/dL (74-106); Potassium 4.7 mmol/L (3.5-5.1); Protein, Total 5.9 g/dL (6.4-8.2); Sodium Level 144 mmol/L (136-145)
[2021-03-06 06:23] LABS: Arterial Blood Carboxyhemoglob 0.8 % (0-1.5); Blood Gas Oxyhemoglobin 89.6 % (94-97); Blood O2 Saturation 91.2 % (92-98.5)
[2021-03-06] MEDS: LEVOTHYROXINE SOD 0.125 MG TAB PO SCH (06:27)
[2021-03-06] MEDS: CISATRACURIUM BESYLATE IV PRN ×2 (06:41→15:01)
[2021-03-06] MEDS: NA CHLORIDE 0.9% IV PRN ×2 (06:41→15:01)
[2021-03-06] MEDS: ASCORBIC ACID 500 MG TABLET PO SCH ×4 (07:45→20:57)
[2021-03-06] MEDS: FAMOTIDINE 20 MG TAB PO SCH ×2 (07:45→20:56)
[2021-03-06] MEDS: THIAMINE HCL 100 MG TABLET PO SCH ×2 (07:45→20:57)
[2021-03-06] MEDS: SUCRALFATE 1 GM TABLET PO SCH ×4 (07:45→20:56)
[2021-03-06] MEDS: ZINC SULFATE 220 MG CAP PO SCH (07:45)
[2021-03-06] MEDS: FUROSEMIDE 20 MG TABLET PO SCH (07:46)
[2021-03-06] MEDS: VITAMIN D 1000 UNIT TAB PO SCH (07:46)
[2021-03-06] MEDS ORDERED: CISATRACURIUM INJECTION 2 MG/ML (10 ML Vial) IV PRN (08:10)
--- NOTE | 2021-03-06 08:21 | RAD REPORT ---
EXAM DESCRIPTION: RAD - Chest Single View - 03/06/2021 5:14 am CLINICAL HISTORY: intubation COMPARISON: Chest Single View dated 03/06/2021; Chest Single View dated 03/05/2021; Chest Single View dated 03/05/2021; Chest Single View dated 03/04/2021 FINDINGS: Diffuse widespread bilateral airspace disease. The endotracheal tube is at the aortic arch . The enteric tube is below the hemidiaphragm per The heart size is within normal limits.No acute oss eous abnormality. No significant pleural effusions or pneumothorax. Right subclavian approach PICC wi th tip overlying SVC. IMPRESSION: Diffuse widespread airspace disease consistent with multifocal pneumonia that is unchang ed. Support apparatus in stable positioning
[2021-03-06] MEDS: ASPIRIN EC 81 MG TAB PO SCH (08:51)
[2021-03-06] MEDS: GLUCERNA 1.2 CAL 1,000 ML BOT FT SCH (08:51)
[2021-03-06] MEDS ORDERED: FUROSEMIDE 20 MG/ 2ML VIAL IV ONE (10:36)
--- NOTE | 2021-03-06 10:37 | P.PN ---
Subjective Date of Service: 03/06/21 Primary Care Provider: Linnea Logan Chief Complaint: Resp failure Intubated yesterday due to resp failure/still on high conc of Fio2 Review of Systems is unable to be obtained Physical Examination - Vital Signs Temperature: 97.5 F Blood Pressure: 143/97 Pulse: 85 Respirations: 22 Pulse Ox (%): 92 - Physical Exam General: Unresponsive Assessment & Plan - Problems (Diagnosis) (1) Pneumonia due to COVID-19 virus Current Visit: Yes Status: Acute Plan: Resp failure/ET sastifactory/labs reviewed thrombocytopenia/ Rusty tube feeds/Reduc easpirin/Reduce PEEP/nimbex prn/lasix one dose
--- NOTE | 2021-03-06 12:33 | P.PN ---
Subjective Date of Service: 03/06/21 Primary Care Provider: Linnea Logan Chief Complaint: Resp failure Patient transferred to the ICU and intubated yesterday Currently on sedation. On high FiO2. Physical Examination - Vital Signs Temperature: 97.5 F Blood Pressure: 143/97 Pulse: 85 Respirations: 22 Pulse Ox (%): 92 - Physical Exam General: Obese, Other (Sedated) HEENT: Other (ETT) Respiratory: Other (Bilateral upper airway transmitted sounds) Cardiovascular: No edema, Regular rate/rhythm, Normal S1 S2 Gastrointestinal: Soft and benign, Non-distended Integumentary: No rashes Neurological: Other (Said it) Assessment And Plan Physician Review Additional Text: Problem list: Acute hypoxic respiratory failure secondary to COVID-19 pneumonia complicated with obesity, unvaccinated adrenal insufficiency s/p pituitary adenoma removal hypothyroidism IDDM asthma Gastritis Anxiety Plan: -patient intubated and on mechanical ventilation -continue IV steroids, oral supplements. -Pt is on home hydrocortisone for adrenal insufficiency. -Pulmonology is following -Remdesivir discontinued. -monitor inflammatory markers. -tube feeding -continue insulin sliding scale and NPH insulin. Titrate NPH insulin. -sucralfate and Pepcid for gastritis. -patient is high risk for thromboembolism -DVT prophylaxis with Xarelto. DVT PPX: Lovenox Code status: Full
[2021-03-06] MEDS: HYDROMORPHONE HCL 2 MG/ML inj IV PRN (16:02)
[2021-03-06] MEDS: MELATONIN 5 MG TABLET PO SCH (20:56)
[2021-03-07] MEDS: CISATRACURIUM BESYLATE IV PRN ×3 (01:24→19:53)
[2021-03-07] MEDS: NA CHLORIDE 0.9% IV PRN ×3 (01:24→19:53)
[2021-03-07] MEDS: propofoL 1,000 MG/100 ML VIAL IV PRN ×8 (01:48→22:55)
[2021-03-07] MEDS: METHYLPREDNISOLONE 125 MG INJ IV SCH ×3 (04:46→19:51)
[2021-03-07 05:18] LABS: Absolute Lymphocytes (CBC) 0.3 K/uL (0.7-4.9); Basophils % 0.2 % (0-1.3); Hematocrit 39.3 % (36.0-45.0); Lymphocytes % 4.6 % (15.3-44.8); MPV 10.6 fL (7.6-11.3); RBC Red Blood Cell Count 4.98 M/uL (3.86-4.86)
[2021-03-07 05:46] LABS: ALT/SGPT 65 U/L (12-78); AST/SGOT 78 U/L (15-37); Alkaline Phosphatase 78 U/L (45-117); BUN Blood Urea Nitrogen 24 mg/dL (7-18); Bicarbonate 30 mmol/L (21-32); Bilirubin Total 0.8 mg/dL (0.2-1.0); Glucose Level 345 mg/dL (74-106); Potassium 4.5 mmol/L (3.5-5.1); Protein, Total 5.7 g/dL (6.4-8.2); Sodium Level 145 mmol/L (136-145)
[2021-03-07] MEDS: INSULIN -REGULAR HUMAN 50 UNIT/0.5 ML ML SQ SCH ×4 (06:49→18:04)
[2021-03-07] MEDS: SUCRALFATE 1 GM TABLET PO SCH ×4 (08:27→19:52)
[2021-03-07] MEDS: HYDROMORPHONE HCL 2 MG/ML inj IV PRN ×2 (08:27→18:23)
[2021-03-07] MEDS: THIAMINE HCL 100 MG TABLET PO SCH ×2 (08:28→19:52)
[2021-03-07] MEDS: FAMOTIDINE 20 MG TAB PO SCH ×2 (08:28→19:52)
[2021-03-07] MEDS: VITAMIN D 1000 UNIT TAB PO SCH (08:28)
[2021-03-07] MEDS: FUROSEMIDE 20 MG TABLET PO SCH (08:28)
[2021-03-07] MEDS: ASCORBIC ACID 500 MG TABLET PO SCH ×4 (08:28→19:52)
[2021-03-07] MEDS: ZINC SULFATE 220 MG CAP PO SCH (08:28)
[2021-03-07] MEDS: GLUCERNA 1.2 CAL 1,000 ML BOT FT SCH (08:32)
[2021-03-07] MEDS: LEVOTHYROXINE SOD 0.125 MG TAB PO SCH (08:32)
[2021-03-07] MEDS: ASPIRIN EC 81 MG TAB PO SCH (09:00)
[2021-03-07 09:11] LABS: Blood Morphology Comment NOT SEEN (NOT SEEN); Platelet Estimate DECR; White Blood Cell Scan OK (OK)
[2021-03-07] MEDS ORDERED: VITAL HP 1,000 ML BOT RTH SCH (13:00)
[2021-03-07] MEDS: VITAL HP 1,000 ML BOT RTH SCH (13:22)
--- NOTE | 2021-03-07 13:22 | RAD REPORT ---
EXAM DESCRIPTION: RAD - Chest Single View - 03/06/2021 1:15 am CLINICAL HISTORY: The patient is 50 years old and is Female; S/P PICC insertion TECHNIQUE: Frontal view of the chest. COMPARISON: No relevant prior studies available. FINDINGS: LUNGS: Extensive groundglass infiltrates are noted throughout the lungs. PLEURAL SPACE: Unremarkable. No pneumothorax. HEART: Unremarkable. No cardiomegaly. MEDIASTINUM: Unremarkable. BONES/JOINTS: There are degenerative changes of the spine. TUBES, LINES AND DEVICES: A right upper extremity PICC is present with the tip at the superior a spect of the SVC. Endotracheal tube is between the thoracic inlet and kate. The enteric tube cour ses beneath the level of the hemidiaphragm, the tip is off the [id number]. UPPER ABDOMEN: Unremarkable as visualized. IMPRESSION: 1. A right upper extremity PICC is present with the tip at the superior aspect of the SVC. 2. Extensive groundglass infiltrates throughout the lungs suggesting infectious and/or edematous pr ocess. Electronically signed by: Luiza Hall MD 03/06/2021 1:39 AM CDT Due to temporary technical issues with the PACS/Fluency reporting system, reports are being signed by the in house radiologist without review as a courtesy to ensure prompt reporting. The interpreting r adiologist is fully responsible for the content of the report.
--- NOTE | 2021-03-07 15:16 | P.PN ---
Subjective Date of Service: 03/07/21 Primary Care Provider: Linnea Logan Chief Complaint: Resp failure Patient remained intubated and on mechanical ventilation. She is now tolerating FiO2 of 90% Physical Examination - Vital Signs Temperature: 97.8 F Blood Pressure: 117/71 Pulse: 81 Respirations: 22 Pulse Ox (%): 95 - Physical Exam General: Other (Sedate) HEENT: Other (Intubated) Respiratory: Other (Bilateral upper airway transmitted sounds.) Cardiovascular: Regular rate/rhythm, Normal S1 S2, Edema (Bilateral upper and lower extremities.) Gastrointestinal: Soft and benign, Non-distended Musculoskeletal: No contractures Integumentary: No rashes Neurological: Other (Sedated) Assessment And Plan Physician Review Additional Text: Problem list: Acute hypoxic respiratory failure secondary to COVID-19 pneumonia complicated with obesity, unvaccinated adrenal insufficiency s/p pituitary adenoma removal hypothyroidism IDDM asthma Gastritis Anxiety Thrombocytopenia Plan: -patient intubated and on mechanical ventilation -continue IV steroids, oral supplements. -Pulmonology is following -monitor inflammatory markers. -tube feeding -continue insulin sliding scale and NPH insulin. Blood sugar is still elevated. Titrate NPH insulin. -sucralfate and Pepcid for gastritis. -patient is high risk for thromboembolism -Xarelto for DVT prophylaxis discontinued due to thrombocytopenia. -prognosis is guarded. DVT PPX: Aspirin. Code status: Full
[2021-03-07] MEDS: MELATONIN 5 MG TABLET PO SCH (19:52)
[2021-03-07] MEDS: FUROSEMIDE 20 MG/ 2ML VIAL IV SCH (21:11)
--- NOTE | 2021-03-07 21:12 | P.PN ---
Subjective Date of Service: 03/07/21 Primary Care Provider: Linnea Logan Chief Complaint: Resp failure Not doign wel/ Requiring sig sedation Review of Systems is unable to be obtained Physical Examination - Vital Signs Temperature: 97.4 F Blood Pressure: 166/90 Pulse: 118 Respirations: 22 Pulse Ox (%): 91 - Physical Exam General: Unresponsive Assessment & Plan - Problems (Diagnosis) (1) Pneumonia due to COVID-19 virus Current Visit: Yes Status: Acute Plan: Resp failure/ Now thrombocytopenic/daily CXRY/prog very poor/ On 100% Fio2 Unable to wean down on sedation and paralytics
[2021-03-08] MEDS: INSULIN -REGULAR HUMAN 50 UNIT/0.5 ML ML SQ SCH ×6 (00:06→23:59)
[2021-03-08] MEDS: propofoL 1,000 MG/100 ML VIAL IV PRN ×6 (01:38→20:06)
[2021-03-08 04:49] LABS: Absolute Lymphocytes (CBC) 0.3 K/uL (0.7-4.9); Basophils % 0.2 % (0-1.3); Hematocrit 38.6 % (36.0-45.0); Lymphocytes % 3.1 % (15.3-44.8); MPV 9.9 fL (7.6-11.3)
[2021-03-08] MEDS: METHYLPREDNISOLONE 125 MG INJ IV SCH ×3 (04:59→20:06)
[2021-03-08 05:27] LABS: BUN Blood Urea Nitrogen 29 mg/dL (7-18); Bicarbonate 33 mmol/L (21-32); Ferritin 585.4 ng/mL (8-388); Glucose Level 397 mg/dL (74-106); Potassium 4.7 mmol/L (3.5-5.1); Sodium Level 146 mmol/L (136-145)
[2021-03-08] MEDS: NA CHLORIDE 0.9% IV PRN ×2 (07:54→14:12)
[2021-03-08] MEDS: CISATRACURIUM BESYLATE IV PRN ×2 (07:54→14:12)
[2021-03-08] MEDS: INSULIN 70/30 100 UNITS/ML SQ SCH ×4 (08:23→17:33)
[2021-03-08] MEDS: VITAMIN D 1000 UNIT TAB PO SCH (08:23)
[2021-03-08] MEDS: LEVOTHYROXINE SOD 0.125 MG TAB PO SCH (08:24)
[2021-03-08] MEDS: ZINC SULFATE 220 MG CAP PO SCH (08:24)
[2021-03-08] MEDS: FUROSEMIDE 20 MG/ 2ML VIAL IV SCH ×2 (08:24→17:34)
[2021-03-08] MEDS: FAMOTIDINE 20 MG TAB PO SCH ×2 (08:24→20:05)
[2021-03-08] MEDS: SUCRALFATE 1 GM TABLET PO SCH ×4 (08:24→20:04)
[2021-03-08] MEDS: ASCORBIC ACID 500 MG TABLET PO SCH ×4 (08:24→20:07)
--- NOTE | 2021-03-08 09:01 | RAD REPORT ---
EXAM DESCRIPTION: RAD - Chest Single View - 03/08/2021 6:23 am CLINICAL HISTORY: intubated Chest pain. COMPARISON: Chest Single View dated 03/06/2021; Chest Single View dated 03/06/2021; Chest Single View dated 03/05/2021; Chest Single View dated 03/05/2021 FINDINGS: Portable technique limits examination quality. Extensive bilateral pulmonary opacities are present without significant change since prior study. The heart is normal in size. Endotracheal tube tip is at the level of the superior aortic arch.Enteric t ube descends into the upper abdomen. Right-sided PICC line has tip in the SVC.
[2021-03-08] MEDS: THIAMINE HCL 100 MG TABLET PO SCH ×2 (09:09→20:05)
[2021-03-08] MEDS: HYDROMORPHONE HCL 2 MG/ML inj IV PRN ×2 (11:38→23:48)
--- NOTE | 2021-03-08 12:05 | P.PN ---
Subjective Date of Service: 03/08/21 Primary Care Provider: Linnea Logan Chief Complaint: Resp failure Subjective: No new changes (No acute events overnight., Remains intubated/sedated) Review of Systems is unable to be obtained Physical Examination - Vital Signs Temperature: 99.1 F Blood Pressure: 128/80 Pulse: 103 Respirations: 22 Pulse Ox (%): 96 Assessment & Plan Physician Review Additional Text: Physical Exam General: Intubated/sedated intubated/sedated HEENT: ET tube in place Respiratory: intubated, b/l coarse breath sounds Cardiovascular: Regular rate/rhythm, 1+ b/l edema Gastrointestinal: Soft and benign, Non-distended Musculoskeletal: No contractures / no joint swelling Integumentary: No rashes Problem list: Acute hypoxic respiratory failure secondary to COVID-19 pneumonia complicated with obesity, unvaccinated adrenal insufficiency s/p pituitary adenoma removal hypothyroidism IDDM asthma Gastritis Anxiety Thrombocytopenia -patient intubated on 03/05 -continue IV steroids, oral supplements. -Pulmonology is following -monitor inflammatory markers. -tube feeding -continue insulin sliding scale. 70/30 insulin fell off for some reason, restart -sucralfate and Pepcid for gastritis. -patient is high risk for thromboembolism -Xarelto for DVT prophylaxis discontinued due to thrombocytopenia. -was on aspirin for DVT prophylaxis but dc'd as well due to worsening thrombocytopenia, some oozing yesterday from PICC site -prognosis is guarded. 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
--- NOTE | 2021-03-08 14:40 | P.PN ---
Subjective Date of Service: 03/08/21 Primary Care Provider: Linnea Logan Chief Complaint: Resp failure Nc not doign well/ Platelet cougnt down worse/ 100% Fio2 Review of Systems is unable to be obtained Physical Examination - Vital Signs Temperature: 99.1 F Blood Pressure: 99/61 Pulse: 76 Respirations: 22 Pulse Ox (%): 94 - Physical Exam General: Comatose Assessment & Plan - Problems (Diagnosis) (1) Pneumonia due to COVID-19 virus Current Visit: Yes Status: Acute Plan: NC . Max support/ thrombocytopenic/ mild hypernatremia/ BP lower/ BS AB coverage with antifungal TX/
[2021-03-08] MEDS: CEFEPIME/SWI 1gm 10 ML IVP SCH ×2 (15:18→20:06)
[2021-03-08] MEDS: FLUCONAZOLE 400 MG IVPB 400 MG/200 ML BAG IV SCH (15:19)
[2021-03-08] MEDS ORDERED: NYSTATIN PWDR 100000 UNIT/GM TOP PRN (16:21)
[2021-03-08] MEDS: ACETAMINOPHEN 500 MG TAB PO PRN (16:22)
[2021-03-08] MEDS ORDERED: CEFEPIME 1 GM/VIAL IV SCH (21:00)
[2021-03-09] MEDS: propofoL 1,000 MG/100 ML VIAL IV PRN ×7 (01:51→23:40)
[2021-03-09] MEDS: METHYLPREDNISOLONE 125 MG INJ IV SCH (04:53)
[2021-03-09 05:38] LABS: Absolute Lymphocytes (CBC) 0.4 K/uL (0.7-4.9); Basophils % 0.1 % (0-1.3); Hematocrit 35.8 % (36.0-45.0); Lymphocytes % 5.2 % (15.3-44.8); MPV 10.2 fL (7.6-11.3); RBC Red Blood Cell Count 4.49 M/uL (3.86-4.86)
[2021-03-09 05:49] LABS: Albumin 1.8 g/dL (3.4-5.0); Bilirubin Total 0.9 mg/dL (0.2-1.0); C-Reactive Protein 40.1 mg/L (<3.00); Ferritin 865.9 ng/mL (8-388); Protein, Total 5.3 g/dL (6.4-8.2)
[2021-03-09] MEDS: INSULIN -REGULAR HUMAN 50 UNIT/0.5 ML ML SQ SCH ×3 (06:02→17:11)
--- NOTE | 2021-03-09 06:15 | P.PN ---
Subjective Date of Service: 03/09/21 Primary Care Provider: Linnea Logan Chief Complaint: Resp failure Subjective: No new changes (plt worse, high inflammatory markers, febrile) Review of Systems 10-point ROS is otherwise unremarkable Physical Examination - Vital Signs Temperature: 99.4 F Blood Pressure: 103/61 Pulse: 76 Respirations: 22 Pulse Ox (%): 95 Assessment & Plan Physician Review Additional Text: Physical Exam General: Intubated/sedated HEENT: ET tube in place Respiratory: intubated, b/l coarse breath sounds Cardiovascular: Regular rate/rhythm, 1+ b/l edema Gastrointestinal: Soft and benign, Non-distended Musculoskeletal: No contractures / no joint swelling Integumentary: No rashes R hand with 1+ edema Problem list: Acute hypoxic respiratory failure secondary to COVID-19 pneumonia complicated with obesity, unvaccinated adrenal insufficiency s/p pituitary adenoma removal hypothyroidism IDDM asthma Gastritis Anxiety Thrombocytopenia -patient intubated on 03/05 -continue IV steroids, oral supplements. -Pulmonology is following. decreased steroids, dc'd lasix -monitor inflammatory markers. -tube feeding -continue insulin sliding scale. 70/30 insulin restarted on 03/08, titrate up -sucralfate and Pepcid for gastritis. -patient is high risk for thromboembolism -Xarelto for DVT prophylaxis discontinued due to thrombocytopenia. -was on aspirin for DVT prophylaxis but dc'd as well due to worsening thrombocytopenia, some oozing 03/07 from PICC site -plt continue to drop -febrile, concern for bacterial superinfection, discussed with pulm, add PO doxy, continue cefepime/diflucan. sputum culture and UA ordered, blood culture ordered 03/08 -prognosis is guarded. DVT PPX: SCDs Code status: Full reviewed with today, continue full code Time Spent Managing Pts Care (In Minutes): 45
--- NOTE | 2021-03-09 07:18 | RAD REPORT ---
EXAM DESCRIPTION: RAD - Chest Single View - 03/09/2021 7:00 am CLINICAL HISTORY: intubated COMPARISON: Chest Single View dated 03/08/2021; Chest Single View dated 03/06/2021; Chest Single View dated 03/06/2021; Chest Single View dated 03/05/2021 FINDINGS: Mild improved aeration noted compared with the preceding chest radiographs from 03/08/2021 and 03/06/2021. Again noted are widespread bilateral airspace opacities. Right subclavian approach P ICC with tip overlying the proximal SVC. Endotracheal tube terminates at the level of the aortic arch in similar positioning. Enteric tube below the diaphragm. The heart size is within normal limits.No acute osseous abnormality. No significant pleural effusions or pneumothorax. IMPRESSION: Question some mild improvement in aeration of the left lung base. Stable support apparat us.
[2021-03-09 09:20] LABS: Blood Morphology Comment NOT SEEN (NOT SEEN); Platelet Estimate DECR
[2021-03-09] MEDS: INSULIN 70/30 100 UNITS/ML SQ SCH ×2 (09:37→17:10)
[2021-03-09] MEDS: FUROSEMIDE 20 MG/ 2ML VIAL IV SCH (09:37)
[2021-03-09] MEDS: THIAMINE HCL 100 MG TABLET PO SCH ×2 (09:38→20:05)
[2021-03-09] MEDS: CEFEPIME/SWI 1gm 10 ML IVP SCH ×2 (09:38→20:05)
[2021-03-09] MEDS: ZINC SULFATE 220 MG CAP PO SCH (09:38)
[2021-03-09] MEDS: LEVOTHYROXINE SOD 0.125 MG TAB PO SCH (09:38)
[2021-03-09] MEDS: SUCRALFATE 1 GM TABLET PO SCH ×4 (09:38→20:04)
[2021-03-09] MEDS: ASCORBIC ACID 500 MG TABLET PO SCH ×4 (09:38→20:04)
[2021-03-09] MEDS: FAMOTIDINE 20 MG TAB PO SCH ×2 (09:38→20:04)
[2021-03-09] MEDS: VITAMIN D 1000 UNIT TAB PO SCH (09:38)
[2021-03-09] MEDS: CISATRACURIUM BESYLATE IV PRN ×2 (11:21→20:06)
[2021-03-09] MEDS: NA CHLORIDE 0.9% IV PRN ×2 (11:21→20:06)
--- NOTE | 2021-03-09 11:42 | P.PN ---
Subjective Date of Service: 03/09/21 Primary Care Provider: Linnea Logan Chief Complaint: Resp failure Nc Hypernatremia and thrombocytopenia with elevated BS Review of Systems is unable to be obtained Physical Examination - Vital Signs Temperature: 99.4 F Blood Pressure: 106/59 Pulse: 86 Respirations: 22 Pulse Ox (%): 95 - Physical Exam General: Unresponsive Assessment & Plan - Problems (Diagnosis) (1) Pneumonia due to COVID-19 virus Current Visit: Yes Status: Acute Plan: Advance Fluids. hyprnatremia worse. BS elevated reduce Solumedrol/ CXRY NC/DC Lasix/ titrate O2 down/ Still requiring paralytics/ Add Barcitinib
[2021-03-09] MEDS ORDERED: INSULIN -REGULAR HUMAN 50 UNIT/0.5 ML ML IV ONE (12:05)
[2021-03-09] MEDS: ACETAMINOPHEN 500 MG TAB PO PRN ×3 (12:26→20:05)
[2021-03-09] MEDS: DOXYCYCLINE 100 MG CAP PO SCH ×2 (12:51→20:04)
[2021-03-09] MEDS: HYDROMORPHONE HCL 2 MG/ML inj IV PRN (13:30)
[2021-03-09] MEDS: FLUCONAZOLE 400 MG IVPB 400 MG/200 ML BAG IV SCH (13:31)
[2021-03-09] MEDS: BARICITINIB 2 MG TABLET PO SCH (14:32)
[2021-03-09 14:52] LABS: Urine Appearance CLEAR (Clear); Urine Bilirubin NEGATIVE (Negative); Urine Blood NEGATIVE (Negative); Urine Color YELLOW (Yellow); Urine Glucose 3+ (Negative); Urine Protein 1+ (Negative); Urine Specific Gravity >=1.030 (1.005-1.030)
[2021-03-09 14:53] LABS: Urine Microscopic Reflex ORDER UMIC
[2021-03-09 14:58] LABS: Arterial Blood Carboxyhemoglob 1.1 % (0-1.5); Blood Gas Oxyhemoglobin 91.2 % (94-97); Blood O2 Saturation 93.3 % (92-98.5)
[2021-03-09 15:16] LABS: Urine Bacteria 20-50 /HPF (<20); Urine Yeast PRESENT (NONE SEEN)
[2021-03-09] MEDS: METHYLPREDNISOLONE 40 MG INJ IV SCH (17:10)
[2021-03-10] MEDS: INSULIN -REGULAR HUMAN 50 UNIT/0.5 ML ML SQ SCH ×4 (00:16→17:20)
[2021-03-10] MEDS: METHYLPREDNISOLONE 40 MG INJ IV SCH ×3 (00:17→16:48)
[2021-03-10] MEDS ORDERED: propofoL 1,000 MG/100 ML VIAL IV ONE ×2 (00:54→03:25)
[2021-03-10] MEDS: propofoL 1,000 MG/100 ML VIAL IV PRN ×6 (02:11→23:08)
[2021-03-10 05:05] LABS: Absolute Lymphocytes (CBC) 0.8 K/uL (0.7-4.9); Basophils % 0.1 % (0-1.3); Hematocrit 40.5 % (36.0-45.0); Lymphocytes % 6.7 % (15.3-44.8); MPV 11.2 fL (7.6-11.3); RBC Red Blood Cell Count 5.03 M/uL (3.86-4.86)
[2021-03-10 05:28] LABS: Albumin 1.8 g/dL (3.4-5.0); Bilirubin Total 1.2 mg/dL (0.2-1.0); C-Reactive Protein 20.8 mg/L (<3.00); Ferritin 1664.3 ng/mL (8-388); Protein, Total 5.4 g/dL (6.4-8.2)
[2021-03-10 05:29] LABS: Potassium 3.8 mmol/L (3.5-5.1)
[2021-03-10] MEDS: NA CHLORIDE 0.9% IV PRN ×2 (05:45→17:20)
[2021-03-10] MEDS: CISATRACURIUM BESYLATE IV PRN ×2 (05:45→17:20)
--- NOTE | 2021-03-10 05:55 | P.PN ---
Subjective Date of Service: 03/10/21 Primary Care Provider: Linnea Logan Chief Complaint: Resp failure Subjective: Other (No significant events overnight. Platelets decreasing, continues with hyperglycemia despite up titration of insulin, increasing inflammatory markers) Review of Systems 10-point ROS is otherwise unremarkable Physical Examination - Vital Signs Temperature: 98.5 F Blood Pressure: 112/75 Pulse: 92 Respirations: 22 Pulse Ox (%): 93 Assessment & Plan Physician Review Additional Text: Physical Exam General: Intubated/sedated HEENT: ET tube in place Respiratory: intubated, b/l coarse breath sounds Cardiovascular: Regular rate/rhythm, 1+ b/l edema Gastrointestinal: Soft and benign, Non-distended Musculoskeletal: No joint swelling Integumentary: No rashes R hand with 1+ edema Problem list: Acute hypoxic respiratory failure secondary to COVID-19 pneumonia complicated with obesity, unvaccinated adrenal insufficiency s/p pituitary adenoma removal hypothyroidism IDDM asthma Gastritis Anxiety Thrombocytopenia -patient intubated on 03/05 -continue IV steroids, oral supplements. -Pulmonology is following. -Inflammatory markers increasing -tube feeding -Continues to be hyperglycemic despite higher doses of insulin 70/30, start insulin drip -sucralfate and Pepcid for gastritis. -patient is high risk for thromboembolism, however has been having worsening thrombocytopenia Xarelto and aspirin discontinued due to thrombocytopenia -Unclear etiology of thrombocytopenia, patient is on multiple medications that could be causing this. Possibly from Covid -Discussed with pulmonology, will come off some medications -febrile in the last 2 days, concern for bacterial superinfection, discussed with pulm, added PO doxy to cefepime/diflucan on 03/09. cultures no growth so far -prognosis is poor DVT PPX: SCDs Code status: Full reviewed with on 03/09. continue full code Time Spent Managing Pts Care (In Minutes): 40
[2021-03-10] MEDS: VITAL HP 1,000 ML BOT RTH SCH (06:11)
--- NOTE | 2021-03-10 07:32 | RAD REPORT ---
EXAM DESCRIPTION: Julissa Single View03/10/2021 7:09 am CLINICAL HISTORY: Shortness breath COMPARISON: March 09 FINDINGS: Endotracheal tube with its tip at the top of the aortic arch. PICC line in place. Enters t he stomach. Mild improvement in left and no significant change in right pulmonary opacities IMPRESSION: Mild improvement in left and no significant change in right pulmonary opacities likely p neumonia
[2021-03-10] MEDS: INSULIN 70/30 100 UNITS/ML SQ SCH ×2 (08:07→16:23)
[2021-03-10] MEDS: ASCORBIC ACID 500 MG TABLET PO SCH ×4 (08:08→20:07)
[2021-03-10] MEDS: LEVOTHYROXINE SOD 0.125 MG TAB PO SCH (08:08)
[2021-03-10] MEDS: ZINC SULFATE 220 MG CAP PO SCH (08:08)
[2021-03-10] MEDS: VITAMIN D 1000 UNIT TAB PO SCH (08:08)
[2021-03-10] MEDS: SUCRALFATE 1 GM TABLET PO SCH ×4 (08:08→20:07)
[2021-03-10] MEDS: FAMOTIDINE 20 MG TAB PO SCH ×2 (08:08→20:07)
[2021-03-10] MEDS: CEFEPIME/SWI 1gm 10 ML IVP SCH (08:08)
[2021-03-10] MEDS: THIAMINE HCL 100 MG TABLET PO SCH ×2 (08:09→20:07)
[2021-03-10] MEDS: DOXYCYCLINE 100 MG CAP PO SCH (08:09)
[2021-03-10] MEDS: BARICITINIB 2 MG TABLET PO SCH (08:09)
[2021-03-10] MEDS: INSULIN -REGULAR HUMAN 100 UNIT in NA CHLORIDE 0.9% 100 ML IV SCH ×3 (08:16→23:51)
[2021-03-10] MEDS: HYDROMORPHONE HCL 2 MG/ML inj IV PRN ×2 (09:39→20:07)
--- NOTE | 2021-03-10 11:48 | P.PN ---
Subjective Date of Service: 03/10/21 Primary Care Provider: Linnea Logan Chief Complaint: Resp failure thrombocytopenia Nc thrombocytopenia worse/ DC all antibiotics for now/ CXRY ILD/ ET satisfact Review of Systems is unable to be obtained Physical Examination - Vital Signs Temperature: 98.5 F Blood Pressure: 112/75 Pulse: 93 Respirations: 22 Pulse Ox (%): 93 - Physical Exam General: Unresponsive Assessment & Plan - Problems (Diagnosis) (1) Pneumonia due to COVID-19 virus Current Visit: Yes Status: Acute Plan: Increase NG fluids/ DC all antibiotics/ severe thrombocytopenia/ CXRY rev/ /bS highinsulin drip/ Prog poor/Cultures neg/ on 95% Fio2
[2021-03-10] MEDS: ACETAMINOPHEN 500 MG TAB PO PRN ×2 (12:32→23:43)
[2021-03-10] MEDS ORDERED: ALBUTEROL 2.5 MG/3 ML NEB SOL NEB PRN (15:00)
[2021-03-11] MEDS: INSULIN -REGULAR HUMAN 50 UNIT/0.5 ML ML SQ SCH ×2 (00:04→05:43)
[2021-03-11] MEDS: METHYLPREDNISOLONE 40 MG INJ IV SCH (00:04)
[2021-03-11] MEDS ORDERED: NOREPINEPHRINE 4mg/D5W 250mL 4 MG/250 ML BAG IV ONE (01:02)
[2021-03-11] MEDS: CISATRACURIUM BESYLATE IV PRN (02:51)
[2021-03-11] MEDS: NA CHLORIDE 0.9% IV PRN (02:51)
[2021-03-11] MEDS: ACETAMINOPHEN 500 MG TAB PO PRN ×2 (03:03→05:36)
[2021-03-11] MEDS ORDERED: NA CHLORIDE 0.9% 500 ML IV ONE (04:45)
[2021-03-11] MEDS ORDERED: NA CHLORIDE 0.9% 500 ML ONE (04:49)
[2021-03-11 05:18] LABS: Absolute Lymphocytes (CBC) 2.2 K/uL (0.7-4.9); Basophils % 0.7 % (0-1.3); Hematocrit 42.8 % (36.0-45.0); Lymphocytes % 8.2 % (15.3-44.8); MPV 6.2 fL (7.6-11.3); RBC Red Blood Cell Count 5.29 M/uL (3.86-4.86)
[2021-03-11 05:26] VITALS: BMI 49.4
[2021-03-11 05:32] VITALS: O2SAT 86
[2021-03-11 05:36] VITALS: TEMP 102.6
[2021-03-11 05:47] LABS: Albumin 1.5 g/dL (3.4-5.0); Bilirubin Total 1.5 mg/dL (0.2-1.0); Ferritin 6359.9 ng/mL (8-388); Potassium 3.7 mmol/L (3.5-5.1); Protein, Total 4.3 g/dL (6.4-8.2)
[2021-03-11] MEDS ORDERED: VASOPRESSIN 80 UNIT in NA CHLORIDE 0.9% 250 ML IV PRN (06:03)
[2021-03-11] MEDS ORDERED: NA CHLORIDE 0.9% 1,000 ML IV ONE ×3 (06:03→06:51)
[2021-03-11] MEDS ORDERED: HYDROCORTISONE SUC 100 MG INJ IV STA (06:14)
[2021-03-11] MEDS ORDERED: Meropenem 1 GM/100 ML BAG IV SCH (06:15)
[2021-03-11] MEDS ORDERED: NA CHLORIDE 0.9% 0 ML ONE (06:26)
[2021-03-11] MEDS ORDERED: VASOPRESSIN 20 UNIT/ML VIAL ONE ×2 (06:33→06:36)
[2021-03-11] MEDS ORDERED: NA CHLORIDE 0.9% 250 ML ONE (06:34)
--- NOTE | 2021-03-11 06:38 | P.PN ---
Subjective Date of Service: 03/11/21 Primary Care Provider: Linnea Logan Chief Complaint: Resp failure Subjective: Worsening (BP dropping, maxed out on levo, appears to be in septic shock, tachycardic, worsening leukocytosis, worsening renal and liver function. Spoke with , continue full code) Review of Systems is unable to be obtained Physical Examination - Vital Signs Temperature: 102.6 F Blood Pressure: 54/35 Pulse: 166 Respirations: 22 Pulse Ox (%): 88 Assessment & Plan Physician Review Additional Text: Physical Exam General: Intubated/sedated HEENT: ET tube in place Respiratory: intubated, b/l coarse breath sounds Cardiovascular: tachycardia, 1+ edema Gastrointestinal: Soft Non-distended Musculoskeletal: No joint swelling Integumentary: No rashes R hand with 1+ edema leal in place Problem list: Acute hypoxic respiratory failure secondary to COVID-19 pneumonia complicated with obesity, unvaccinated septic shock secondary to COVID-19, suspected bacterial superinfection adrenal insufficiency s/p pituitary adenoma removal hypothyroidism IDDM asthma Gastritis Anxiety Thrombocytopenia -patient intubated on 03/05 -worsening, now appears to be in septic shock -start meropenem, diflucan, vanc -sepsis bolus initiated - updated, wants to continue with full code -solumedrol switched to high dose hydrocortisone 100mg q8hr -significant tachycardia, will give adenosine to further eval rhythm DVT PPX: SCDs Code status: Full reviewed with this morning. continue full code very poor prognosis Time Spent Managing Pts Care (In Minutes): 60
[2021-03-11] MEDS ORDERED: ADENOSINE 6 MG/ 2ML VIAL IV ONE ×6 (06:41→07:09)
[2021-03-11] MEDS: propofoL 1,000 MG/100 ML VIAL IV PRN (06:43)
[2021-03-11] MEDS ORDERED: WATER FOR INJ,STERILE 10 ML ONE (06:56)
[2021-03-11] MEDS ORDERED: NA CHLORIDE 0.9% 2,000 ML ONE (06:56)
[2021-03-11] MEDS ORDERED: FLUCONAZOLE 200mg IVPB 200 MG/100 ML BAG IV SCH ×2 (07:00→08:00)
[2021-03-11] MEDS ORDERED: EPINEPHrine 1 MG/10 ML SYR IV ONE (07:19)
--- NOTE | 2021-03-11 07:57 | RAD REPORT ---
EXAM DESCRIPTION: RAD - Chest Single View - 03/11/2021 5:58 am CLINICAL HISTORY: intubated COMPARISON: March 10 TECHNIQUE: AP portable chest image was obtained 03/11/2021 5:58 am . FINDINGS: ET tube in good position top of the aortic arch 3 cm above the kate. Feeding tube extend s below the diaphragm, off the field of view. Lung volumes are low. Bilateral airspace opacities are present. Left lung field is stable. There is q uestionable progression in the lateral upper and lower right lung field. This can be monitored on sub sequent imaging. Heart and vasculature are normal. No measurable pleural effusion and no pneumothorax . No acute bony abnormality seen. No acute aortic findings suspected. IMPRESSION: Questionable slight progression of right lung parenchymal disease since March 10 imagin g. Stable left lung field. ET tube in good position.
[2021-03-11] MEDS ORDERED: VANCOMYCIN 3 GM in NA CHLORIDE 0.9% 500 ML IVPB ONE (08:00)
[2021-03-11] MEDS ORDERED: VANCOMYCIN 2 GM in NA CHLORIDE 0.9% 500 ML IVPB SCH (09:00)
[2021-03-11 10:10] LABS: Platelet Estimate DECR
[2021-03-11 10:11] LABS: Blood Morphology Comment NOT SEEN (NOT SEEN); Platelets, Giant PRESENT
--- NOTE | 2021-03-11 16:50 | P.DS ---
Admission Date: 02/27/21 Discharge Date: 03/11/21 Primary Care Provider: Linnea Logan Disposition: Reason for Admission: Resp failure, COVID-19 pneumonia Consultations: Pulmonology = Dr. Barker Procedures: Problem list: Acute hypoxic respiratory failure secondary to COVID-19 pneumonia complicated with obesity, unvaccinated septic shock secondary to COVID-19, suspected bacterial superinfection adrenal insufficiency s/p pituitary adenoma removal hypothyroidism IDDM asthma Gastritis Anxiety Thrombocytopenia Brief History of Present Illness: 50 y/o F with asthma, IDDM, HTN, obesity, adrenal insufficiency, hypothyroidism, asthma who presents to ED for complaints of SOB, cough, fever, body aches, nausea x 9 days. Some relief with taking ibuprofen. Denies any chest pain, palpitations. She was diagnosed with covid19 on 02/23/19 at this ER. Feels like symptoms and shortness of breath have been worsening. EMS found patient to be hypoxic. Pt reports recent sick contacts, entire family is covid+. Pt and family members are not vaccinated. Hospital Course: Patient had significant COVID-19 pneumonia. She was treated per protocol. She had gradual worsening of her respiratory status. She eventually required intubation to maintain oxygen saturation rater than 88%. She intermittently required pressor support as well. She continued with no improvement, worsening thrombocytopenia, and developed fevers. She was empirically covered with broad- spectrum antibiotics and Diflucan. Despite this she continued to worsen. Blood, urine, sputum cultures were without any growth. UA was notable for some yeast. Overnight patient had more rapid deterioration, requiring pressors. Bloodwork consistent with multi-organ damage. She was given sepsis bolus. Patient was noted to be in SVT up to [id number]. She was given adenosine 6 mg without any change. She continued with hypotension and SVT, she was given adenosine 12 mg with no change as well initially. Few minutes after the second dose of adenosine patient's heart rate improved to the low 100s. Several minutes later patient went into V. fib CODE BLUE was called. Patient was coded for over 30 minutes without ROSC. Code was stopped at 0720. Vital Signs/Physical Exam: Temp Pulse Resp BP Pulse Ox 102.6 F H 91 H 30 H 121/47 L 65 L 03/11/21 06:41 03/11/21 07:15 03/11/21 07:00 03/11/21 07:15 03/11/21 07:00 Laboratory Data at Discharge: WBC 27.20 K/uL (4.3-10.9) H* D 03/11/21 04:40 Hgb 13.7 g/dL (12.0-15.0) 03/11/21 04:40 Hct 42.8 % (36.0-45.0) 03/11/21 04:40 Plt Count 19 K/uL (152-406) L* D 03/11/21 04:40 PT 12.8 SECONDS (9.5-12.5) H 02/27/21 12:50 INR 1.11 02/27/21 12:50 Sodium 153 mmol/L (136-145) H 03/11/21 04:40 Potassium 3.7 mmol/L (3.5-5.1) 03/11/21 04:40 BUN 55 mg/dL (7-18) H D 03/11/21 04:40 Creatinine 1.54 mg/dL (0.55-1.3) H 03/11/21 04:40 Glucose 242 mg/dL (74-106) H 03/11/21 04:40 Phosphorus Cancelled 02/28/21 05:00 Magnesium Cancelled 02/28/21 05:00 Total Bilirubin 1.5 mg/dL (0.2-1.0) H 03/11/21 04:40 AST 569 U/L (15-37) H* D 03/11/21 04:40 ALT 370 U/L (12-78) H* D 03/11/21 04:40 Alkaline Phosphatase 55 U/L (45-117) 03/11/21 04:40 Home Medications: NPH, Human Insulin Isophane [Humulin N] 34 unit SQ BID 02/28/21 Hydrocortisone [Cortef*] 10 mg PO Q12H 03/01/21 Levothyroxine [Synthroid*] 1 tab PO DAILY 03/01/21 Losartan Potassium 1 tab PO DAILY 03/01/21 Metformin HCl 1 tab PO BID 03/01/21 glyBURIDE [Glyburide] 2 tab PO BID 03/01/21 Followup: NONE,NONE [Primary Care Provider] - Time spent managing pt's care (in minutes): 60
[2021-03-12] MEDS ORDERED: VANCOMYCIN 2 GM in NA CHLORIDE 0.9% 500 ML IVPB SCH (21:00)
[2021-03-13 21:00] VITALS: BP 54/35
== END 2021-03-11 07:20 | disposition expired | DRG 207 ==
LOC: ER 10:35 → ERHOLD 14:18 → 4TH 02-28 10:54 → 3RD-ICU 03-05 11:00
PROVIDERS: ADMIT Hospitalist; ATTEND Hospitalist
PROC: 5A1955Z Respiratory Ventilation, Greater than 96 Consecutive Hours (ICD-10-PCS; 2021-03-05)
PROC: 0BH17EZ Insertion of Endotracheal Airway into Trachea, Via Natural or Artificial Opening (ICD-10-PCS; 2021-03-05)
PROC: 02HV33Z Insertion of Infusion Device into Superior Vena Cava, Percutaneous Approach (ICD-10-PCS; principal; 2021-03-06)
PROC: 5A12012 Performance of Cardiac Output, Single, Manual (ICD-10-PCS; 2021-03-11)
DX: U07.1 COVID-19 (principal); J12.82 Pneumonia due to coronavirus disease 2019; J96.01 Acute respiratory failure with hypoxia; A41.89 Other specified sepsis; R65.21 Severe sepsis with septic shock; Z68.42 Body mass index [BMI] 45.0-49.9, adult; E27.40 Unspecified adrenocortical insufficiency; I47.1 Supraventricular tachycardia; N30.00 Acute cystitis without hematuria; I46.9 Cardiac arrest, cause unspecified; E66.9 Obesity, unspecified; E03.9 Hypothyroidism, unspecified; E11.9 Type 2 diabetes mellitus without complications; J45.909 Unspecified asthma, uncomplicated; K29.70 Gastritis, unspecified, without bleeding; D69.6 Thrombocytopenia, unspecified; F41.9 Anxiety disorder, unspecified; I49.01 Ventricular fibrillation; B96.20 Unspecified Escherichia coli [E. coli] as the cause of diseases classified elsewhere; R06.03 Acute respiratory distress
CPT/HCPCS: 36415; 36569; 71045; 74018; 78582; 80048; 80053; 80076; 81003; 81015; 82728; 82805; 82947; 83036; 83735; 83880; 84100; 84145; 84439; 84443; 84484; 85025; 85379; 85384; 85610; 86140; 87040; 87070; 87077; 87086; 87088; 87186; 87205; 93005; 93970; 94002; 94003; 94640; 94660; 96365; 96367; 96372; 96375; 99285; A9503; J0153; J0171; J0330; J0456; J0692; J1100; J1170; J1450; J1650; J1720; J1815; J1940; J2270; J2405; J2704; J2920; J2930; J3370; J7030; J7040; J7050; J7060; U0003